=== PATIENT | female | born 1990 | race Caucasian/White ===

== ENCOUNTER 2022-09-30 21:52 | Emergency (ER) | payer OTHER, SELFPAY ==
--- NOTE | 2022-09-30 22:20 | ECG_ITS ---
The 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
[2022-09-30 22:31] VITALS: PULSE 71
[2022-09-30 23:35] VITALS: PULSE 62
--- NOTE | 2022-09-30 23:56 | ED_ITS ---
HPI - General Adult General Chief complaint: Neuro Symptoms/Deficit Stated complaint: ARM NUMBNESS/TINGLING Time Seen by Provider: 09/30/22 23:48 Source: patient Mode of arrival: ambulance Limitations: no limitations History of Present Illness HPI narrative: patient states she has been ill since july. Describes burning sensation of her skin. States she was prescribed prednisone and this appears to help all of her symptoms. States she will have episodes of hives. Also tingling of the left arm. States the tingling has now resolved and she has pain of the left shoulder. No chest pain. No fever. States she has an upcoming appointment with an devulcanizer head and her PCP is also scheduling her to see Rheumatology Related Data Home Medications Medication Instructions Recorded Confirmed B-12 Compliance 10/01/22 dicyclomine 10 mg capsule 10 mg PO QID 10/01/22 10/01/22 ferrous sulfate 325 mg (65 mg 325 mg PO DAILY 10/01/22 10/01/22 iron) tablet (FeroSul) omeprazole 40 mg capsule,delayed 40 mg PO DAILY 10/01/22 10/01/22 release Allergies Allergy/AdvReac Type Severity Reaction Status Date / Time cephalexin [From Keflex] AdvReac Verified 10/01/22 00:09 ibuprofen [From Motrin] AdvReac Verified 10/01/22 00:09 Review of Systems ROS Status of ROS 10 or more systems reviewed and unremarkable except as noted in history and below PFSH PFS Social History Smoking status: Current some day smoker Exam Constitutional Vital Signs - 24 hr 09/30/22 23:35 10/01/22 02:30 10/01/22 00:11 Temperature 98.8 F Pulse Rate [Monitor] 62 65 65 Respiratory Rate 16 16 Blood Pressure [Right Arm] 118/69 137/87 H Pulse Oximetry 97 98 Oxygen Delivery Method Room Air Room Air [facility] Common normals: normocephalic and head/scalp atraumatic Eye Common normals: PERRL, EOMs intact bilaterally and conjunctivae normal Neck & C-Spine Common normals: full ROM and no lymphadenopathy Chest Common normals: inspection of chest normal Respiratory Common normals: normal respiratory effort, no use of accessory muscles and clear to auscultation bilaterally Cardio Common normals: no JVD, regular rhythm, S1 normal heart sound and S2 normal heart sound GI Common normals: Normal to inspection, nondistended, normoactive bowel sounds present and soft to palpation Extremity Common normals: normal to inspection, full ROM and no joint enlargement Neuro Common normals: oriented x3, CN's II-XII intact bilaterally, moves all extremities, no focal motor deficits and no sensory deficits noted Psych Common normals: mental status grossly normal Course Vital Signs Vital signs: Vital Signs Pulse Rate 62 09/30/22 23:35 Temperature 98.8 F 10/01/22 00:11 Pulse Rate 65 10/01/22 02:30 Respiratory Rate 16 10/01/22 02:30 Blood Pressure 118/69 10/01/22 02:30 Pulse Oximetry 97 10/01/22 02:30 Oxygen Delivery Method Room Air 10/01/22 02:30 Medical Decision Making Medical Records Medical records narrative: patient presents with atypical symptoms of burning of her skin and tingling Left arm followed by pain of the left arm. serial troponin neg. EKG with nonspecific changes of T waves. No significant ST depression. NSR. Patient advised to follow up with her family doctor tomorrow . No findings tonight to explain her symptoms Lab Data Labs: Lab Results 10/01/22 10/01/22 Range/Units 00:35 02:17 WBC 8.1 (4.0-11.0) 10^3/uL RBC 4.63 (4.20-5.40) 10^6/uL Hgb 14.2 (12.0-16.0) g/dL Hct 40.7 (36.0-48.0) % MCV 87.9 (81.0-99.0) fL MCH 30.7 (26.7-34.0) pg MCHC 34.9 (29.9-35.2) g/dL RDW 11.9 (11.0-15.0) % Plt Count 277 (150-450) 10^3/uL MPV 8.9 L (9.5-13.5) fL Neut % (Auto) 79.2 H (43.0-75.0) % Lymph % (Auto) 12.4 L (20.5-60.0) % [place] % (Auto) 7.5 (1.7-12.0) % Eos % (Auto) 0.2 L (0.9-7.0) % Baso % (Auto) 0.2 (0.2-2.0) % Neut # (Auto) 6.4 (1.4-6.5) 10^3/uL Lymph # (Auto) 1.0 L (1.2-3.8) 10^3/uL [place] # (Auto) 0.6 (0.3-0.8) 10^3/uL Eos # (Auto) 0.0 (0.0-0.7) 10^3/uL Baso # (Auto) 0.0 (0.0-0.1) 10^3/uL ESR 22 H (<=20) mm/hr Sodium 136 (136-145) mmol/L Potassium 3.9 (3.5-5.1) mmol/L Chloride 103 (98-107) mmol/L Carbon Dioxide 24.7 (21.0-32.0) mmol/L Anion Gap 12.2 BUN 10.0 (7.0-18.0) mg/dL Creatinine 0.65 (0.55-1.02) mg/dL Est GFR ( Amer) >60 (>=60) Est GFR (Non-Af Amer) >60 (>=60) BUN/Creatinine Ratio 15.4 Glucose 88 (74-106) mg/dL Calcium 8.0 L (8.5-10.1) mg/dL Troponin I High Sens 5.6 7.4 (4.0-51.3) pg/mL C-Reactive Protein 1.0 (<=1.0) mg/dL NT-Pro-B Natriuret Pep 71.0 (<=450.0) pg/mL Discharge Plan Discharge Chief Complaint: Neuro Symptoms/Deficit Clinical Impression: Arthralgia of left upper arm Prescriptions / Home Meds: No Action dicyclomine 10 mg capsule 10 mg PO QID ferrous sulfate [FeroSul] 325 mg (65 mg iron) tablet 325 mg PO DAILY B-12 Compliance 1,000 mcg tablet omeprazole 40 mg capsule,delayed release(DR/EC) 40 mg PO DAILY Instructions: Arthralgia (ED), Shoulder Pain (ED) Stand Alone Forms: Portal Instructions Referrals: Physician,Non-Staff, MD [Primary Care Provider] - 1 week Follow Up Appointments: follow up with your family doctor tomorrow
[2022-10-01 00:11] VITALS: BP 137/87; PULSE 65; RESP 16; TEMP 37.1; O2SAT 98; BMI 44.2
--- NOTE | 2022-10-01 00:20 | XR_ITS ---
The [address] [address] Patient Name: BLANCA RUDOLPH MRN: [id number] date: 1990 Sex: F Assigned Patient Location: ER Current Patient Location: ER Accession/Order Number: [id number] Exam Date: 10/01/2022 00:25 Report Date: 10/01/2022 01:49 At the request of: RANGEL EDWARDS Procedure: XR chest 1V EXAMINATION:XR chest 1V INDICATION:chest pain COMPARISON:06/30/2012 TECHNIQUE:A single frontal view of the chest is submitted. FINDINGS: Significant under inflation of the lungs is present contributing to vascular crowding and bibasilar atelectasis. No acute infiltrates are present within the chest. The cardiac silhouette is not enlarged. The pulmonary vascularity is within normal limits. There is no costophrenic angle blunting. IMPRESSION: Hypoventilatory changes in the chest contributing to atelectasis and vascular crowding. Electronically authenticated by: CAYDEN ADAMES Date: 10/01/2022 01:49
[2022-10-01 00:56] LABS: Basophils Percent Auto 0.2 % (0.2-2.0); Eosinophils Percent Auto 0.2 % (0.9-7.0); Hematocrit 40.7 % (36.0-48.0); Hemoglobin 14.2 g/dL (12.0-16.0); Immature Granulocytes Abs Auto 0.04 10^3/uL (0.00-0.03); Immature Granulocytes Pct Auto 0.5 % (0.0-0.5); Lymphocytes Percent Auto 12.4 % (20.5-60.0); Mean Corpuscular HGB Conc 34.9 g/dL (29.9-35.2); Mean Corpuscular Hemoglobin 30.7 pg (26.7-34.0); Mean Corpuscular Volume 87.9 fL (81.0-99.0); Mean Platelet Volume 8.9 fL (9.5-13.5); Monocytes Absolute Auto 0.6 10^3/uL (0.3-0.8); Monocytes Percent Auto 7.5 % (1.7-12.0); Neutrophils Absolute Auto 6.4 10^3/uL (1.4-6.5); Neutrophils Percent Auto 79.2 % (43.0-75.0); Platelet Count 277 10^3/uL (150-450); Red Blood Count 4.63 10^6/uL (4.20-5.40); Red Cell Distribution Width 11.9 % (11.0-15.0); White Blood Count 8.1 10^3/uL (4.0-11.0)
[2022-10-01 01:08] LABS: Erythrocyte Sedimentation Rate 22 mm/hr (<=20)
[2022-10-01 01:20] LABS: Anion Gap 12.2; BUN Creatinine Ratio 15.4; Carbon Dioxide 24.7 mmol/L (21.0-32.0); Chloride 103 mmol/L (98-107); Estimated GFR (African America >60 (>=60); Estimated GFR (Non-African Ame >60 (>=60); Glucose 88 mg/dL (74-106); Potassium 3.9 mmol/L (3.5-5.1); Sodium 136 mmol/L (136-145); Troponin I High Sensitivity 5.6 pg/mL (4.0-51.3)
[2022-10-01 02:30] VITALS: BP 118/69; PULSE 65; RESP 16; O2SAT 97
[2022-10-01 02:37] LABS: Troponin I High Sensitivity 7.4 pg/mL (4.0-51.3)
[2022-10-01 04:05] VITALS: BP 147/104; PULSE 69; RESP 20; O2SAT 98
== END 2022-10-01 04:05 | disposition home or self-care (01) ==
LOC: ER 22:01
PROVIDERS: Emergency Provider Internal Medicine
DX: M79.622 Pain in left upper arm (principal)
CPT/HCPCS: 36415; 71045; 80048; 83880; 84484; 85025; 85652; 86140; 93005; 99285

== ENCOUNTER 2022-12-13 14:24 | Emergency (ER) | payer OTHER, SELFPAY ==
[2022-12-13 14:35] VITALS: BP 128/86; PULSE 63; RESP 18; TEMP 37.2; O2SAT 98; BMI 46.1
--- NOTE | 2022-12-13 14:46 | ED.UPPEXIN1 ---
HPI - Extremity Injury (Upper) General Chief Complaint: Extremity Injury, Upper Stated Complaint: CRAMPING BOTH HANDS Time Seen by Provider: 12/13/22 14:41 Source: patient Mode of arrival: walk-in Limitations: no limitations History of Present Illness HPI narrative: Patient presents to emergency department complaining of cramping and shaking to bilateral hands. Patient states she's had this episode where her hands just cramp and has pain in them for over 5 weeks. The patient was recently hospitalized at [facility] and diagnosed with lupus. Patient is taking prednisone for 30 days. She states while she was in the hospital she had the symptoms and they ordered an EMG as an outpatient. Patient states she has not seen a neurologist. Patient is here concerned that the EMG test is going to be in 4 weeks and she should've had it done while she was inpatient. She denies any trauma. She denies any fever, chills. She states they feel like they will slightly swollen. She also states she has fibromyalgia. She states the hands feel better when she is wearing gloves. Patient is wearing gloves over her rings which are not tight in no evidence of swelling is noted. She denies any weakness to the hands. She denies any neck pain. She states she is here because his symptoms feels like they're getting worse. Patient is known to have low magnesium and low calcium. Related Data Home Medications Medication Instructions Recorded Confirmed B-12 Compliance 10/01/22 dicyclomine 10 mg capsule 10 mg PO QID 10/01/22 10/01/22 ferrous sulfate 325 mg (65 mg 325 mg PO DAILY 10/01/22 12/13/22 iron) tablet (FeroSul) omeprazole 40 mg capsule,delayed 40 mg PO DAILY 10/01/22 12/13/22 release acetaminophen 500 mg tablet 500 mg PO Q6H PRN pain 12/13/22 12/13/22 allopurinol 100 mg tablet 100 mg PO DAILY 12/13/22 12/13/22 amitriptyline 10 mg tablet 10 mg PO .nightly 12/13/22 12/13/22 atovaquone 750 mg/5 mL oral 1,500 mg PO DAILY 12/13/22 12/13/22 suspension bumetanide 2 mg tablet 2 mg PO Q12H 12/13/22 12/13/22 cetirizine 10 mg tablet 10 mg PO DAILY 12/13/22 12/13/22 cholecalciferol (vitamin D3) 1,250 50,000 unit PO .weekly 12/13/22 12/13/22 mcg (50,000 unit) capsule magnesium oxide 400 mg (241.3 mg 400 mg PO .12HR 12/13/22 12/13/22 magnesium) tablet mycophenolate mofetil 250 mg 1,500 mg PO Q12H 12/13/22 12/13/22 capsule nifedipine 30 mg tablet,extended 30 mg PO DAILY 12/13/22 12/13/22 release 24 hr prednisone 20 mg tablet 60 mg PO DAILY 12/13/22 12/13/22 rivaroxaban 20 mg tablet (Xarelto) 20 mg PO DAILY 12/13/22 12/13/22 sevelamer carbonate 800 mg tablet 1,600 mg PO Q12H 12/13/22 12/13/22 Allergies Allergy/AdvReac Type Severity Reaction Status Date / Time cephalexin [From Keflex] AdvReac Verified 10/01/22 00:09 ibuprofen [From Motrin] AdvReac Verified 10/01/22 00:09 Review of Systems ROS Status of ROS 10 or more systems reviewed and unremarkable except as noted in history and below [facility] Social History Smoking status: Current every day smoker Exam Narrative Exam Narrative: Nurses notes and vital signs reviewed and patient is not hypoxic. General: Nontoxic, Well-appearing and in no apparent distress. Skin: Warm, dry, no pallor noted. No Rash Head: Normocephalic, atraumatic. Neck: Supple, non-tender. Eye: Pupils are equal, round and EOMI. No scleral icterus. Ears, Nose, Mouth, and Throat: TM clear, no posterior oropharynx erythema or nasal mucosal hypertrophy, uvula is mid-line Oral mucosa is moist Cardiovascular: Regular Rate and Rhythm without murmur, gallop or rub. Respiratory: No accessory muscle use or respiratory distress. Lungs are clear to auscultation, no wheezing, rales or rhonchi Chest Wall: no tenderness Back: No midline thoracic or lumbar vertebral tenderness. No CVA tenderness Musculoskeletal: Patient is wearing winter gloves with the fingertips cut off. Parents looked normal to inspection. There is no edema, no erythema, no signs of trauma, infection. There is no cyanosis. Radial pulses +2 bilaterally. Capillary refill is brisk. Normal sensation to the thumb, middle finger and pinky bilaterally. normal ROM, no calf or popliteal tenderness, no lower extremity edema/swelling GI: Abdomen is soft, non-distended. Normal bowel sounds. No masses appreciated. No tenderness to palpation. No rebound, guarding, or rigidity noted. Neurological: A&O x4. No cranial nerve dysfunction observed. No truncal ataxia. Moves all extremities. Subtle tremor to the left hand on examination of the hand. Tremor resolves while relatives take her gloves off. Psychiatric: Cooperative and interactive. flat Constitutional Vital Signs, click to edit/add: Last Vital Signs Temp 98.9 F 12/13/22 14:35 Pulse 59 L 12/13/22 17:51 Resp 18 12/13/22 17:51 BP 118/72 12/13/22 17:51 Pulse Ox 100 12/13/22 17:51 O2 Del Method Room Air 12/13/22 15:59 Course Vital Signs Vital signs: Vital Signs Temperature 98.9 F 12/13/22 14:35 Pulse Rate 63 12/13/22 14:35 Respiratory Rate 18 12/13/22 14:35 Blood Pressure 128/86 12/13/22 14:35 Pulse Oximetry 98 12/13/22 14:35 Oxygen Delivery Method Room Air 12/13/22 14:35 Temperature 98.9 F 12/13/22 14:35 Pulse Rate 59 L 12/13/22 17:51 Respiratory Rate 18 12/13/22 17:51 Blood Pressure 118/72 12/13/22 17:51 Pulse Oximetry 100 12/13/22 17:51 Oxygen Delivery Method Room Air 12/13/22 15:59 MDM - Extremity Injury (Upper) MDM Narrative Medical decision making narrative: Discussed with patient I am unable to get an EMG in the emergency department. However, we will check electrolytes to make sure she is well-hydrated and replace magnesium and calcium.Patient was given 2 g of magnesium, and 2 g of calcium gluconate. She states her symptoms improved dramatically. She was also given 1 L of normal saline. The patient will follow-up with her primary care doctor tomorrow. We discussed the need to have them check vitamin D level, and discuss parathyroid testing if needed. Patient has an injection of additional calcium tomorrow scheduled as an outpatient. Patient is advised to follow-up with her primary care doctor, and specialists. At this time the patient is without objective evidence of an acute process requiring hospitalization or inpatient management. The patient has remained hemodynamically stable. No additional indication for emergent studies at this time. I answered all questions. Discussed discharge instructions including standard anticipatory guidance and what should prompt a return to the emergency department, including if they get worse are not getting better or develops any new or concerning symptoms. I've given them specific time frame in which to follow-up, and who to follow-up with. The patient demonstrates understanding. Patient is nontoxic and stable for discharge with outpatient follow-up. This note was created with the assistance of a speech recognition program. Although the intention is to generate documents that actually reflects the content of the visit, no guarantees can be provided that every mistake has been identified and corrected by editing. Medical Records Attestation: I reviewed the patient's medical records. Medical records narrative: Discharge summary From [facility] that the patient brought in reviewed. Lab Data Attestation: I reviewed the patient's lab results. Labs: Lab Results 12/13/22 Range/Units 15:07 WBC 9.6 (4.0-11.0) 10^3/uL RBC 3.66 L (4.20-5.40) 10^6/uL Hgb 11.1 L (12.0-16.0) g/dL Hct 31.5 L (36.0-48.0) % MCV 86.1 (81.0-99.0) fL MCH 30.3 (26.7-34.0) pg MCHC 35.2 (29.9-35.2) g/dL RDW 12.6 (11.0-15.0) % Plt Count 255 (150-450) 10^3/uL MPV 8.7 L (9.5-13.5) fL Neut % (Auto) 94.4 H (43.0-75.0) % Lymph % (Auto) 4.2 L (20.5-60.0) % [place] % (Auto) 0.9 L (1.7-12.0) % Eos % (Auto) 0.0 L (0.9-7.0) % Baso % (Auto) 0.0 L (0.2-2.0) % Neut # (Auto) 9.1 H (1.4-6.5) 10^3/uL Lymph # (Auto) 0.4 L (1.2-3.8) 10^3/uL [place] # (Auto) 0.1 L (0.3-0.8) 10^3/uL Eos # (Auto) 0.0 (0.0-0.7) 10^3/uL Baso # (Auto) 0.0 (0.0-0.1) 10^3/uL Abs Immat Gran (auto) 0.05 H (0.00-0.03) 10^3/uL Imm/Tot Granulo (auto) 0.5 (0.0-0.5) % Sodium 138 (136-145) mmol/L Potassium 4.5 (3.5-5.1) mmol/L Chloride 101 (98-107) mmol/L Carbon Dioxide 34.0 H (21.0-32.0) mmol/L Anion Gap 7.5 BUN 38.0 H (7.0-18.0) mg/dL Creatinine 1.61 H (0.55-1.02) mg/dL Est GFR ( Amer) 45 L (>=60) Est GFR (Non-Af Amer) 37 L (>=60) BUN/Creatinine Ratio 23.6 Glucose 147 H (74-106) mg/dL Calcium 7.0 L (8.5-10.1) mg/dL Magnesium 1.5 L (1.8-2.4) mg/dL Total Bilirubin 0.2 (0.2-1.0) mg/dL AST 11 L (15-37) U/L ALT 22 (14-59) U/L Alkaline Phosphatase 41 L (46-116) U/L Total Protein 4.8 L (6.4-8.2) g/dL Albumin 1.5 L (3.4-5.0) g/dL Globulin 3.3 g/dL Albumin/Globulin Ratio 0.5 Discharge Plan Discharge Chief Complaint: Extremity Injury, Upper Clinical Impression: Spasms of the hands or feet, Hypomagnesemia, Hypocalcemia Patient Disposition: Home, Self-Care Time of Disposition Decision: 17:00 Condition: Good Mode of Transportation: Private Vehicle Prescriptions / Home Meds: No Action dicyclomine 10 mg capsule 10 mg PO QID ferrous sulfate [FeroSul] 325 mg (65 mg iron) tablet 325 mg PO DAILY B-12 Compliance 1,000 mcg tablet omeprazole 40 mg capsule,delayed release(DR/EC) 40 mg PO DAILY acetaminophen 500 mg tablet 500 mg PO Q6H PRN (Reason: pain) amitriptyline 10 mg tablet 10 mg PO .nightly allopurinol 100 mg tablet 100 mg PO DAILY atovaquone 750 mg/5 mL suspension 1,500 mg PO DAILY bumetanide 2 mg tablet 2 mg PO Q12H cetirizine 10 mg tablet 10 mg PO DAILY cholecalciferol (vitamin D3) 1,250 mcg (50,000 unit) capsule 50,000 unit PO .weekly magnesium oxide 400 mg (241.3 mg magnesium) tablet 400 mg PO .12HR mycophenolate mofetil 250 mg capsule 1,500 mg PO Q12H nifedipine 30 mg tablet extended release 24hr 30 mg PO DAILY prednisone 20 mg tablet 60 mg PO DAILY sevelamer carbonate 800 mg tablet 1,600 mg PO Q12H Xarelto 20 mg tablet 20 mg PO DAILY Rx Instructions: must administer with evening meal Instructions: Hypocalcemia (ED), Hypomagnesemia (ED), Muscle Spasm (ED) Additional Instructions: Follow up with her primary care doctor to discuss vitamin D and low levels of calcium and magnesium. X-ray drinking plenty of fluids. Get your calcium injection tomorrow as scheduled. Return to the emergency department and consequences as discussed. Stand Alone Forms: Portal Instructions
[2022-12-13 15:17] LABS: Hematocrit 31.5 % (36.0-48.0); Hemoglobin 11.1 g/dL (12.0-16.0); Immature Granulocytes Abs Auto 0.05 10^3/uL (0.00-0.03); Immature Granulocytes Pct Auto 0.5 % (0.0-0.5); Lymphocytes Absolute Auto 0.4 10^3/uL (1.2-3.8); Lymphocytes Percent Auto 4.2 % (20.5-60.0); Mean Corpuscular HGB Conc 35.2 g/dL (29.9-35.2); Mean Corpuscular Hemoglobin 30.3 pg (26.7-34.0); Mean Corpuscular Volume 86.1 fL (81.0-99.0); Mean Platelet Volume 8.7 fL (9.5-13.5); Monocytes Absolute Auto 0.1 10^3/uL (0.3-0.8); Monocytes Percent Auto 0.9 % (1.7-12.0); Neutrophils Absolute Auto 9.1 10^3/uL (1.4-6.5); Neutrophils Percent Auto 94.4 % (43.0-75.0); Platelet Count 255 10^3/uL (150-450); Red Blood Count 3.66 10^6/uL (4.20-5.40); Red Cell Distribution Width 12.6 % (11.0-15.0); White Blood Count 9.6 10^3/uL (4.0-11.0)
[2022-12-13 15:32] LABS: Alanine Aminotransferase 22 U/L (14-59); Albumin Globulin Ratio 0.5; Albumin Level 1.5 g/dL (3.4-5.0); Alkaline Phosphatase 41 U/L (46-116); Anion Gap 7.5; Aspartate Amino Transferase 11 U/L (15-37); BUN Creatinine Ratio 23.6; Bilirubin Total 0.2 mg/dL (0.2-1.0); Chloride 101 mmol/L (98-107); Estimated GFR (African America 45 (>=60); Estimated GFR (Non-African Ame 37 (>=60); Globulin 3.3 g/dL; Glucose 147 mg/dL (74-106); Magnesium 1.5 mg/dL (1.8-2.4); Potassium 4.5 mmol/L (3.5-5.1); Sodium 138 mmol/L (136-145); Total Protein 4.8 g/dL (6.4-8.2)
[2022-12-13] MEDS: 0.9 % SODIUM CHLORIDE 1,000 ML 1000 ML IV (15:56)
[2022-12-13] MEDS: MAGNESIUM SULFATE IN WATER 50 ML IV (15:56)
[2022-12-13 15:59] VITALS: O2SAT 99
[2022-12-13 16:01] VITALS: BP 120/78; PULSE 80; RESP 18; O2SAT 99
[2022-12-13] MEDS: CALCIUM GLUC IN NACL, ISO-OSM 1 GM/50 ML PLAST..BAG IV ×2 (16:25→16:49)
[2022-12-13 16:55] VITALS: BP 110/70; PULSE 63; RESP 16; O2SAT 99
[2022-12-13 17:51] VITALS: BP 118/72; PULSE 59; RESP 18; O2SAT 100
== END 2022-12-13 18:21 | disposition home or self-care (01) ==
PROVIDERS: Emergency Provider Emergency Medicine
DX: E83.42 Hypomagnesemia (principal); E83.51 Hypocalcemia; R25.2 Cramp and spasm; M79.7 Fibromyalgia; Z79.899 Other long term (current) drug therapy; F17.210 Nicotine dependence, cigarettes, uncomplicated
CPT/HCPCS: 36415; 80053; 83735; 85025; 96365; 96366; 96368; 99284

== ENCOUNTER 2022-12-14 15:18 | Emergency (ER) | payer OTHER, SELFPAY ==
[2022-12-14] VITALS (21 sets, daily range): BP systolic 123–152; BP diastolic 69–103; PULSE 58–90; RESP 1–23; TEMP 37.1; O2SAT 98–99; BMI 46.1
--- NOTE | 2022-12-14 15:41 | ECG_ITS ---
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
--- NOTE | 2022-12-14 15:54 | ED_ITS ---
HPI - General Adult General Chief complaint: Neuro Symptoms/Deficit Stated complaint: Syncope Time Seen by Provider: 12/14/22 15:21 Source: patient Mode of arrival: Wheelchair Limitations: no limitations History of Present Illness HPI narrative: Patient said that she passed out earlier today. She presents with tremors and joint pains. She was diagnosed with fibromyalgia 2 months ago and with Lupus 2 weeks ago - both done while at [facility]. She has an out- patient EMG scheduled in 4-5 weeks. She asked about getting that at [place] [facility] when she was here yesterday. She was found to have low magnesium and low calcium yesterday and given those IV during her visit. She takes vitamin D, magnesium and calcium daily. She had been taking 60mg prednisone - prescribed while in [facility] 2 weeks ago - and is supposed to stay on that for another 2 weeks but she stopped them about 24 hours ago because she thought that the steroid might be causing her symptoms. She told me that she has left sided headache and that is chronic for her. Related Data Home Medications Medication Instructions Recorded Confirmed B-12 Compliance 10/01/22 dicyclomine 10 mg capsule 10 mg PO QID 10/01/22 10/01/22 ferrous sulfate 325 mg (65 mg 325 mg PO DAILY 10/01/22 12/13/22 iron) tablet (FeroSul) omeprazole 40 mg capsule,delayed 40 mg PO DAILY 10/01/22 12/13/22 release acetaminophen 500 mg tablet 500 mg PO Q6H PRN pain 12/13/22 12/13/22 allopurinol 100 mg tablet 100 mg PO DAILY 12/13/22 12/13/22 amitriptyline 10 mg tablet 10 mg PO .nightly 12/13/22 12/13/22 atovaquone 750 mg/5 mL oral 1,500 mg PO DAILY 12/13/22 12/13/22 suspension bumetanide 2 mg tablet 2 mg PO Q12H 12/13/22 12/13/22 cetirizine 10 mg tablet 10 mg PO DAILY 12/13/22 12/13/22 cholecalciferol (vitamin D3) 1,250 50,000 unit PO .weekly 12/13/22 12/13/22 mcg (50,000 unit) capsule magnesium oxide 400 mg (241.3 mg 400 mg PO .12HR 12/13/22 12/13/22 magnesium) tablet mycophenolate mofetil 250 mg 1,500 mg PO Q12H 12/13/22 12/13/22 capsule nifedipine 30 mg tablet,extended 30 mg PO DAILY 12/13/22 12/13/22 release 24 hr prednisone 20 mg tablet 60 mg PO DAILY 12/13/22 12/13/22 rivaroxaban 20 mg tablet (Xarelto) 20 mg PO DAILY 12/13/22 12/13/22 sevelamer carbonate 800 mg tablet 1,600 mg PO Q12H 12/13/22 12/13/22 Allergies Allergy/AdvReac Type Severity Reaction Status Date / Time cephalexin [From Keflex] AdvReac Verified 10/01/22 00:09 ibuprofen [From Motrin] AdvReac Verified 10/01/22 00:09 PFSH PFS Social History Smoking status: Current every day smoker Exam Narrative Exam Narrative: Nurses notes and vital signs reviewed and patient is not hypoxic. afebrile General: Well-appearing and in no apparent distress. Skin: Warm, dry, no pallor noted. No rash. Head: Normocephalic, atraumatic. Eye: Pupils are equal, round and EOMI. No scleral icterus. Ears, Nose, Mouth, and Throat: Oral mucosa is moist Cardiovascular: Regular Rate and Rhythm without murmur, gallop or rub. Respiratory: No accessory muscle use or respiratory distress. Lungs are clear to auscultation, no wheezing, rales or rhonchi Musculoskeletal: no upper extremity edema/swelling - she wears gloves because they decrease her fibromyalgia flare-ups GI: Abdomen is soft, non-distended. Normal bowel sounds. No tenderness to palpation. No rebound, guarding, or rigidity noted. Neurological: A&O x4. No cranial nerve dysfunction observed. No truncal ataxia. Moves all extremities. Sensation intact. Psychiatric: Cooperative and interactive. FLAT mood and affect. Constitutional Vital Signs, click to edit/add: Last Vital Signs Temp 98.8 F 12/14/22 15:26 Pulse 63 12/14/22 17:10 Resp 21 12/14/22 17:10 BP 152/103 H 12/14/22 16:08 Pulse Ox 99 12/14/22 16:00 O2 Del Method Room Air 12/14/22 15:26 Course Vital Signs Vital signs: Vital Signs Temperature 98.8 F 12/14/22 15:26 Pulse Rate 66 12/14/22 15:26 Respiratory Rate 18 12/14/22 15:26 Blood Pressure 133/90 12/14/22 15:26 Pulse Oximetry 98 12/14/22 15:26 Oxygen Delivery Method Room Air 12/14/22 15:26 Temperature 98.8 F 12/14/22 15:26 Pulse Rate 63 12/14/22 17:10 Respiratory Rate 21 12/14/22 17:10 Blood Pressure 152/103 H 12/14/22 16:08 Pulse Oximetry 99 12/14/22 16:00 Oxygen Delivery Method Room Air 12/14/22 15:26 Medical Decision Making MDM Narrative Medical decision making narrative: Patient was placed on cnc machine setter and EKG obtained. Blood drawn and sent for evaluation. orthostatic vital signs obtained and the patient's HR increased from 65bpm to 90bpm on standing. She was ordered to receive NS IVF bolus. She was sent for CT scanning of the brain due to the syncopal episode. Head CT did not show any worrisome process per radiologist. Her magnesium and calcium were once again low. The patient was given IV Calcium and IV magnesium. She also has elevated BUn and Cr when compared to normal values in September 2022. She was started on Bumex 2 weeks ago after the Lupus diagnosis to treat Lupus- associated water retention , she told me. I am concerned that the Bumex is contributing to her abnormal kidney function and possibly electrolyte changes. She said that she saw a accounts manager in [place] and I encouraged her to call their office when they open tomorrow to discuss discontinuing the Bumex. Patient discharged home with recommendation to get back on the prednisone, take the calcium and magnesium prescribed, eat meals and drink fluids appropriately. Lab Data Lab results reviewed: Yes I reviewed the patient's lab results Labs: Lab Results 12/14/22 Range/Units 15:50 WBC 8.3 (4.0-11.0) 10^3/uL RBC 3.76 L (4.20-5.40) 10^6/uL Hgb 11.3 L (12.0-16.0) g/dL Hct 32.9 L (36.0-48.0) % MCV 87.5 (81.0-99.0) fL MCH 30.1 (26.7-34.0) pg MCHC 34.3 (29.9-35.2) g/dL RDW 12.9 (11.0-15.0) % Plt Count 244 (150-450) 10^3/uL MPV 9.0 L (9.5-13.5) fL Neut % (Auto) 69.4 (43.0-75.0) % Lymph % (Auto) 23.8 (20.5-60.0) % [place] % (Auto) 5.5 (1.7-12.0) % Eos % (Auto) 0.5 L (0.9-7.0) % Baso % (Auto) 0.2 (0.2-2.0) % Neut # (Auto) 5.8 (1.4-6.5) 10^3/uL Lymph # (Auto) 2.0 (1.2-3.8) 10^3/uL [place] # (Auto) 0.5 (0.3-0.8) 10^3/uL Eos # (Auto) 0.0 (0.0-0.7) 10^3/uL Baso # (Auto) 0.0 (0.0-0.1) 10^3/uL Abs Immat Gran (auto) 0.05 H (0.00-0.03) 10^3/uL Imm/Tot Granulo (auto) 0.6 H (0.0-0.5) % Sodium 139 (136-145) mmol/L Potassium 3.3 L (3.5-5.1) mmol/L Chloride 102 (98-107) mmol/L Carbon Dioxide 34.7 H (21.0-32.0) mmol/L Anion Gap 5.6 BUN 34.0 H (7.0-18.0) mg/dL Creatinine 1.49 H (0.55-1.02) mg/dL Est GFR ( Amer) 49 L (>=60) Est GFR (Non-Af Amer) 41 L (>=60) BUN/Creatinine Ratio 22.8 Glucose 102 (74-106) mg/dL Calcium 7.2 L (8.5-10.1) mg/dL Magnesium 1.7 L (1.8-2.4) mg/dL Troponin I High Sens 15.5 (4.0-51.3) pg/mL Imaging Data CT scan - head: Radiologist's impression: Patient Name: BLANCA RUDOLPH MRN: [id number] date: 1990 Sex: F Assigned Patient Location: ER Current Patient Location: ER Accession/Order Number: [id number] Exam Date: 12/14/2022 16:33 Report Date: 12/14/2022 16:55 At the request of: LUIS ANTONIO TAVERAS Procedure: CT head/brain wo con EXAM: CT head/brain wo con CLINICAL INDICATION: syncope COMPARISON: None TECHNIQUE: Axial CT images of the brain were obtained without contrast. Coronal and sagittal reformats were obtained. Dose reduction techniques were achieved by using automated exposure control and/or adjustment of mA and/or kV according to patient size and/or use of iterative reconstruction technique. FINDINGS: No intracranial hemorrhage, extra-axial fluid collection, hydrocephalus, midline shift, or acute infarction. No other mass effect. Patent basal cisterns. No calvarial fracture. Normal soft tissues. Paranasal sinuses and mastoid air cells are well-aerated. IMPRESSION: No acute intracranial process. Electronically authenticated by: ANGEL SEBASTIAN Date: 12/14/2022 16:55 ECG Data Attestation: I personally reviewed and interpreted this ECG as follows: Interpretation: EKG interpretation: Emergency Department physician interpretation. Normal sinus rhythm at 64bpm. Normal axis, normal intervals and non-specific ST &T changes. No ST segment elevation or depression. Discharge Plan Discharge Chief Complaint: Neuro Symptoms/Deficit Clinical Impression: Lupus, Hypomagnesemia, Hypocalcemia Patient Disposition: Home, Self-Care Time of Disposition Decision: 17:48 Prescriptions / Home Meds: No Action dicyclomine 10 mg capsule 10 mg PO QID ferrous sulfate [FeroSul] 325 mg (65 mg iron) tablet 325 mg PO DAILY B-12 Compliance 1,000 mcg tablet omeprazole 40 mg capsule,delayed release(DR/EC) 40 mg PO DAILY acetaminophen 500 mg tablet 500 mg PO Q6H PRN (Reason: pain) amitriptyline 10 mg tablet 10 mg PO .nightly allopurinol 100 mg tablet 100 mg PO DAILY atovaquone 750 mg/5 mL suspension 1,500 mg PO DAILY bumetanide 2 mg tablet 2 mg PO Q12H cetirizine 10 mg tablet 10 mg PO DAILY cholecalciferol (vitamin D3) 1,250 mcg (50,000 unit) capsule 50,000 unit PO .weekly magnesium oxide 400 mg (241.3 mg magnesium) tablet 400 mg PO .12HR mycophenolate mofetil 250 mg capsule 1,500 mg PO Q12H nifedipine 30 mg tablet extended release 24hr 30 mg PO DAILY prednisone 20 mg tablet 60 mg PO DAILY sevelamer carbonate 800 mg tablet 1,600 mg PO Q12H Xarelto 20 mg tablet 20 mg PO DAILY Rx Instructions: must administer with evening meal Instructions: Lupus Erythematosus (DC), Hypocalcemia (ED), Hypomagnesemia (ED) Stand Alone Forms: Portal Instructions Referrals: Physician,Non-Staff, MD [Primary Care Provider] - 1 week
[2022-12-14] MEDS: 0.9 % SODIUM CHLORIDE 1,000 ML 999 ML IV (16:02)
--- NOTE | 2022-12-14 16:03 | CT_ITS ---
[address] [address] Patient Name: BLANCA RUDOLPH MRN: [id number] date: 1990 Sex: F Assigned Patient Location: ER Current Patient Location: ER Accession/Order Number: [id number] Exam Date: 12/14/2022 16:33 Report Date: 12/14/2022 16:55 At the request of: LUIS ANTONIO TAVERAS Procedure: CT head/brain wo con EXAM: CT head/brain wo con CLINICAL INDICATION: syncope COMPARISON: None TECHNIQUE: Axial CT images of the brain were obtained without contrast. Coronal and sagittal reformats were obtained. Dose reduction techniques were achieved by using automated exposure control and/or adjustment of mA and/or kV according to patient size and/or use of iterative reconstruction technique. FINDINGS: No intracranial hemorrhage, extra-axial fluid collection, hydrocephalus, midline shift, or acute infarction. No other mass effect. Patent basal cisterns. No calvarial fracture. Normal soft tissues. Paranasal sinuses and mastoid air cells are well-aerated. CT/CT head/brain wo con IMPRESSION: No acute intracranial process. Electronically authenticated by: ANGEL SEBASTIAN Date: 12/14/2022 16:55
[2022-12-14 16:35] LABS: Basophils Percent Auto 0.2 % (0.2-2.0); Eosinophils Percent Auto 0.5 % (0.9-7.0); Hematocrit 32.9 % (36.0-48.0); Hemoglobin 11.3 g/dL (12.0-16.0); Immature Granulocytes Abs Auto 0.05 10^3/uL (0.00-0.03); Immature Granulocytes Pct Auto 0.6 % (0.0-0.5); Lymphocytes Percent Auto 23.8 % (20.5-60.0); Mean Corpuscular HGB Conc 34.3 g/dL (29.9-35.2); Mean Corpuscular Hemoglobin 30.1 pg (26.7-34.0); Mean Corpuscular Volume 87.5 fL (81.0-99.0); Monocytes Absolute Auto 0.5 10^3/uL (0.3-0.8); Monocytes Percent Auto 5.5 % (1.7-12.0); Neutrophils Absolute Auto 5.8 10^3/uL (1.4-6.5); Neutrophils Percent Auto 69.4 % (43.0-75.0); Platelet Count 244 10^3/uL (150-450); Red Blood Count 3.76 10^6/uL (4.20-5.40); Red Cell Distribution Width 12.9 % (11.0-15.0); White Blood Count 8.3 10^3/uL (4.0-11.0)
[2022-12-14 16:55] LABS: Anion Gap 5.6; BUN Creatinine Ratio 22.8; Calcium 7.2 mg/dL (8.5-10.1); Carbon Dioxide 34.7 mmol/L (21.0-32.0); Chloride 102 mmol/L (98-107); Estimated GFR (African America 49 (>=60); Estimated GFR (Non-African Ame 41 (>=60); Glucose 102 mg/dL (74-106); Magnesium 1.7 mg/dL (1.8-2.4); Potassium 3.3 mmol/L (3.5-5.1); Sodium 139 mmol/L (136-145); Troponin I High Sensitivity 15.5 pg/mL (4.0-51.3)
[2022-12-14] MEDS: MAGNESIUM SULFATE IN WATER 50 ML IV (17:39)
[2022-12-14] MEDS: CALCIUM GLUC IN NACL, ISO-OSM 1 GM/50 ML PLAST..BAG IV (17:45)
== END 2022-12-14 18:58 | disposition home or self-care (01) ==
PROVIDERS: Emergency Provider Emergency Medicine
DX: E83.42 Hypomagnesemia (principal); E83.51 Hypocalcemia; M32.9 Systemic lupus erythematosus, unspecified; M79.7 Fibromyalgia; Z79.899 Other long term (current) drug therapy; F17.210 Nicotine dependence, cigarettes, uncomplicated
CPT/HCPCS: 36415; 70450; 80048; 83735; 84484; 85025; 93005; 96361; 96374; 96375; 99285

== ENCOUNTER 2023-04-18 21:07 | Outpatient (REF) | payer OTHER, SELFPAY ==
--- OUTSIDE RECORDS SUMMARY | 2023-04-19 10:14 | XMS_ITS | CCD ---
Author Name Unknown Address [address] [place] [address] Organization [facility] Care Team Providers Care Trolley Cleaner Name Role Phone BILLY ZELAYA Primary Care Physician UnavailMELONY Servin Consulting Unavailable BRANDY ALEXIS Primary Care Unavailable MELONY THURSTON Attending Unavailable MELONY THURSTON Admitting Unavailable AWAIS, DR HAGAN Consulting Unavailable BRANDY ALEXIS Primary Care Unavailable AWAIS, DR HAGAN Attending Unavailable AWAIS, DR HAGAN Admitting Unavailable Issa Guerrero Primary Care UnavailORIN Sheffield Attending Unavailable ORIN PACHECO Attending Unavailable ORIN PACHECO Attending Unavailable WILFRID BILLY Primary Care Unavailable Miki Mauricio Attending Unavailable Jazmin ZAMAN Referring Unavailable WILFRID, BILLY Primary Care Unavailable Miki Mauricio Attending Unavailable RUFINO GALLARDO Attending Unavailab BILLY Mora Referring Unavailable BILLY ZELAYA Primary Care Unavailable RUFINO GALLARDO Attending Unavailab BILLY Mora Primary Care Unavailable Miki Mauricio Admitting Unavailable BILLY ZELAYA Primary Care Unavailable Miki Mauricio Attending Unavailable Miki Mauricio Referring Unavailable BILLY ZELAYA Primary Care Unavailable Astrid, Katrin A Admitting Unavailable Astrid, Katrin A Attending Unavailable BILLY ZELAYA Primary Care Unavailable Miki Mauricio Attending Unavailable Miki Mauricio Referring Unavailable Miki Mauricio Admitting Unavailable BILLY ZELAYA Primary Care Unavailable RUFINO GALLARDO Attending Unavailab BILLY Mora Referring Unavailable WILFRID, BILLY Primary Care Unavailable WILFRID, BILLY Primary Care Unavailable Astrid, Katrin A Attending Unavailable Michael ZAMANer Referring Unavailable WILFRID, BILLY Primary Care Unavailable Miki Mauricio Attending Unavailable Allergies Allergy Classification Reported Allergen(s) Allergy Type Date of Onset Reaction(s) Facility (8 sources) Cephalexin; Translations: [cephalexin] Drug Allergy 05-03-19 Pain in lower limb (finding) [facility] [place] (4 sources) Ibuprofen; Translations: [ibuprofen] Drug Allergy 12-16-19 medication interference [facility] (2 sources) Sulfamethoxazole / Trimethoprim; Translations: [sulfamethoxazole-t rimethoprim] Drug Allergy Eruption of skin (disorder) [facility] Comment on above: ??? pt says she gets 'heat rash' often. however developed 'worse' rash than usual shortly after taking bactrim. has taken previously with NO reaction. (1 source) Sulfamethoxazole / Trimethoprim; Translations: [Bactrim] Drug Allergy [facility] (1 source) No Known Medication Allergies; Translations: [No Known Medication Allergies] Propensity to adverse reactions (disorder) [facility] Medications Current Medications Medication Drug Class(es) Dates Sig (Normalized) Sig (Original) acetaminophen 325 mg / HYDROcodone bitartrate 5 mg oral tablet (1 source) Opioid Agonist Start: 07-11-2022 End: 07-13-2022 [place] 325 mg-5 mg oral tablet 1 tab(s), Oral, q6hr as needed for pain, 10 tab(s), Refill(s) 0, [id number], 175.2, cm, 07/05/22 12:31:00 EST, Height/Length Dosing, 136, kg, 07/05/22 12:31:00 EST, Weight Dosing Start Date: 07/11/22 Stop Date: 07/13/22 Status: Ordered dicyclomine hydrochloride 10 mg oral capsule (8 sources) Anticholinergic Start: 02-16-2022 End: 02-11-2023 take 1 capsule by mouth four times daily Bentyl 10 mg Cap 10 mg = 1 cap(s), Oral, QID, X 30 day(s), # 120 cap(s), Refills(s) 11, [facility]: [id number], 172, cm, 02/16/22 12:26:00 EDT, Height/Length Dosing, 133, kg, 02/16/22 12:26:00 EDT, Weight Dosing Start Date: 02/16/22 Stop Date: 02/11/23 Status: Ordered etonogestrel 68 mg drug implant (9 sources) Progestin Start: 02-16-2022 Nexplanon 68 mg, SubCutaneous, in pts right arm, Refills(s) 0, control/menstrual regulation Start Date: 02/16/22 Status: Ordered Start: 02-16-2022 Nexplanon Refi lls(s) 0, control/menstrual regulation Start Date: 02/16/22 Status: Ordered Start: 02-16-2022 Nexplanon Refi lls(s) 0 Start Date: 02/16/22 Status: Ordered famotidine 20 mg oral tablet (6 sources) Histamine-2 Receptor Antagonist Start: 07-05-2022 take 1 tablet by mouth once daily as needed Pepcid 20 mg Tab 20 mg = 1 tab(s), Oral, Daily, PRN Control of stomach acid Start Date: 07/05/22 Status: Ordered FeroSul 325 mg oral tablet (9 sources) Start: 02-16-2022 take 1 tablet by mouth once daily FeroSul 325 mg oral tablet 325 mg = 1 tab(s), Oral, Daily, Refills(s) 0, Prophylaxis Start Date: 02/16/22 Status: Ordered Start: 02-16-2022 FeroSul 325 mg oral tablet Refills(s) 0, Prophylaxis Start Date: 02/16/22 Status: Ordered Start: 02-16-2022 FeroSul 325 mg oral tablet Refills(s) 0 Start Date: 02/16/22 Status: Ordered lisinopril 10 mg oral tablet (9 sources) Angiotensin Converting Enzyme Inhibitor Start: 02-16-2022 take 10 mg by mouth once daily lisinopril 10 mg, Oral, Daily, Refills(s) 0, High blood pressure Start Date: 02/16/22 Status: Ordered Start: 02-16-2022 lisinopril Ref ills(s) 0, High blood pressure Start Date: 02/16/22 Status: Ordered Start: 02-16-2022 lisinopril Ref ills(s) 0 Start Date: 02/16/22 Status: Ordered nitrofurantoin, macrocrystals 50 mg oral capsule (2 sources) Nitrofuran Antibacterial Start: 09-05-2022 nitrofurantoin macrocrystals 50 mg Cap See Instructions, 1 cap(s) Oral PRN after intercourse to prevent UTI, # 15 cap(s), Refills(s) 6, Pharmacy: [facility] #[id number], 172, cm, 09/05/22 9:24:00 EDT, Height/Length Dosing, 132, kg, 09/05/22 9:24:00 EDT, Weight Dosing Start Date: 09/05/22 Status: Ordered omeprazole 40 mg delayed release oral capsule (6 sources) Proton Pump Inhibitor Start: 08-10-2022 End: 02-06-2023 take 1 capsule by mouth once daily omeprazole 40 mg Cap-DR 40 mg = 1 cap(s), Oral, Daily, X 90 day(s), # 90 cap(s), Refills(s) 1, Pharmacy: [facility] #[id number], 175, cm, 08/10/22 12:49:00 EDT, Height/Length Dosing, 133.3, kg, 08/10/22 12:49:00 EDT, Weight Dosing Start Date: 08/10/22 Stop Date: 02/06/23 Status: Ordered Start: 03-10-2022 take 1 capsule by [facility] once daily omeprazole 40 mg Cap-DR 40 mg = 1 cap(s), Oral, Daily, # 30 cap(s), Refills(s) 2, Pharmacy: [facility] #[id number], 172, cm, 03/10/22 12:42:00 EST, Height/Length Dosing, 133, kg, 03/10/22 12:42:00 EST, Weight Dosing Start Date: 03/10/22 Status: Ordered rivaroxaban 20 mg oral tablet (9 sources) Factor Xa Inhibitor Start: 02-16-2022 take 20 mg by mouth once daily in the evening Xarelto 20 mg, Oral, qPM, Refills(s) 0, Blood Thinner Start Date: 02/16/22 Status: Ordered Start: 02-16-2022 Xarelto Refill s(s) 0, Blood Thinner Start Date: 02/16/22 Status: Ordered Start: 02-16-2022 Xarelto Refill s(s) 0 Start Date: 02/16/22 Status: Ordered Problems Active Problems Problem Classification Problem Date Documented Da te Episodic/Chronic Abdominal pain (14 sources) Epigastric pain; Translations: [Epigastric pain] Onset: 2 Episodic Anxiety disorders (10 sources) Anxiety disorder; Translations: [Anxiety disorder, unspecified] Onset: 2 Chronic Attention-deficit, conduct, and disruptive behavior disorders (9 sources) Adult attention deficit hyperactivity disorder 02-15-2022 Chronic Attention-deficit, conduct, and disruptive behavior disorders (9 sources) Attention deficit hyperactivity disorder, 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 Biliary tract disease (20 sources) Cholelithiasis without obstruction; Translations: [Calculus of gallbladder without cholecystitis without obstruction] Onset: 2 Episodic Deficiency and other anemia (6 sources) Anemia 07-05-2022 Episodic Diabetes mellitus without complication (9 sources) Type 2 diabetes mellitus 02-16-2022 Chronic Esophageal disorders (5 sources) Gastroesophageal reflux disease; Translations: [Gastroesophageal reflux disease without esophagitis] Onset: 3 08-10-2022 Chronic Essential hypertension (9 sources) Hypertensive disorder 02-15-2022 Chronic Gastritis and duodenitis (5 sources) Gastritis; Translations: [Gastritis, unspecified, without bleeding] Onset: 3 08-10-2022 Episodic Mood disorders (9 sources) Depressive disorder 02-16-2022 Chronic Nausea and vomiting (10 sources) Nausea; Translations: [Nausea] Onset: 2 Episodic Other gastrointestinal disorders (5 sources) Abdominal wind pain; Translations: [Gas pain] Onset: 3 08-10-2022 Episodic Other nervous system disorders (1 source) Other chronic pain; Translations: [OTHER CHRONIC PAIN] Onset: 2 Chronic Other nutritional; endocrine; and metabolic disorders (9 sources) Morbid obesity 02-16-2022 Chronic Other nutritional; endocrine; and metabolic disorders (6 sources) Body mass index 40+ - severely obese 06-26-2022 Chronic Other screening for suspected conditions (not mental disorders or infectious disease) (4 sources) Encounter for screening for malignant neoplasm of cervix; Translations: [ENC SCREENING MALIG NEOPLASM CERV] Onset: 2 Episodic Other upper respiratory disease (9 sources) Allergic rhinitis 02-16-2022 Chronic Pulmonary heart disease (6 sources) Pulmonary embolism 07-05-2022 Episodic Sexually transmitted infections (not HIV or hepatitis) (2 sources) Latent syphilis, unspecified as early or late; 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, unspecified as early or late] Onset: 3 Chronic Spondylosis; intervertebral disc disorders; other back problems (9 sources) Backache 02-16-2022 Episodic Unclassified (6 sources) Drug therapy finding 06-26-2022 Urinary tract infections (3 sources) Urinary tract infectious disease; Translations: [Urinary tract infection, site not specified] Onset: 3 Episodic Past or Other Problems Problem Classification Problem Date Documented Date Episodic/Chronic Immunizations and screening for infectious disease (5 sources) Encounter for screening for human papillomavirus (HPV); Translations: [Contact with and (suspected) exposure to human immunodeficiency virus [HIV]] Onset: 03-17-2022 Episodic Other aftercare (1 source) Other ocean transportation intermediary (current) drug therapy; Translations: [OTH PRISON CURRENT DRUG THERAPY] Onset: 12-14-2021 Episodic Unclassified (1 source) Exposure to 2019 novel coronavirus; Translations: [Contact with and (suspected) exposure to COVID19] Results Test Name Value Interpretation Reference Range Facil ity Lab Reportson 04-17-2023 Lab Reports [id number]. [id number] Normal [facility] 29on 04-06-2023 29 Addended by: NO OVALLE on: 04/10/2023 12:12 PM Modules accepted: Orders Normal [facility] CHLAMYDIA TRACHOMATIS AND NE ISSERIA GONORRHEA, TMAon 04-06-2023 CHLAMYDIA TRACHOMATIS DNA PROBE (PRESENCE) IN UNSP SPEC Negative Normal Negative [facility] Comment on above: Result Comment: No C hlamydia trachomatis rRNA Detected. The Aptima Combo 2 Assay is a FDA approved target amplification nucleic acid probe test that utilizes target capture for the in vitro qualitative detection and differentiation of ribosomal RNA (rRNA) from Chlamydia trachomatis (CT) and/or Neisseria gonorrhoeae (GC) to aid the diagnosis of chlamydial and/or gonococcal urogenital disease using the [employer] System. The Aptima Combo 2 Assay involves target capture, target amplification by Aircraft Engine Dismantler-Mediated Amplification (TMA), and the detection of the amplification products (amplicon) by the Hybridization Protection Assay (HPA). The internal process controls of the [place] [facility] monitor the target capture, amplification, and detection steps of the assay, this is not intended to control for sampling adequacy. Performed By: #### L [id number] ####[facility] ([facility])[address] [place] [address] Performed By: #### L [id number] #### [facility] ([facility]) [address] [place] [address] NEISSERIA GONORRHOEAE DNA PROBE (PRESENCE) IN UNSP SPEC Negative Normal Negative [facility] Comment on above: Result Comment: No N eisseria gonorrhoeae rRNA Detected. The Aptima Combo 2 Assay is a FDA approved target amplification nucleic acid probe test that utilizes target capture for the in vitro qualitative detection and differentiation of ribosomal RNA (rRNA) from Chlamydia trachomatis (CT) and/or Neisseria gonorrhoeae (GC) to aid the diagnosis of chlamydial and/or gonococcal urogenital disease using the [place] System. The Aptima Combo 2 Assay involves target capture, target amplification by Aircraft Engine Dismantler-Mediated Amplification (TMA), and the detection of the amplification products (amplicon) by the Hybridization Protection Assay (HPA). The internal process controls of the [place] [facility] monitor the target capture, amplification, and detection steps of the assay, this is not intended to control for sampling adequacy. Performed By: #### L [id number] ####[facility] ([facility])[address] [place] [address] Performed By: #### L [id number] #### [facility] ([facility]) [address] [place] [address] FTA ABSon 04-06-2023 FTA-ABS Reactive Abnormal Nonreactive, 1+, 2+, 3+, 4+, Inconclusive [facility] Comment on above: Performed By: #### L [id number] #### [facility] ([facility]) [address] [place] [address] HIV COMBO 4Gon 04-06-2023 HIV COMBO 4G Negative Normal Negative [facility] Comment on above: Performed By: #### L [id number] #### [facility] ([facility]) [address] [place] [address] Office Visiton 04-06-2023 Follow-up visit [id number] RonniBlanca Jasmina 1990 Date Provider Department [place] 04/06/2023 ORIN VERNON [facility] family history on file Level of Service:66177 CA OFFICE/OUTPATIENT ESTABLISHED MOD MDM 30-39 MIN Normal [facility] RPRon 04-06-2023 REAGIN AB PRESENCE IN SERUM BY RPR Reactive Abnormal Nonreactive [facility] Comment on above: Performed By: #### L [id number] #### [facility] ([facility]) [address] [place] [address] RPR QUANTITATIVEon RPR QUANT 1:8 High <1:1 [facility] Comment on above: Result Comment: The syphilis screen is a treponemal assay; patients with previously treated syphilis could be reactive on this assay, but nonreactive on the RPR Quant assay. Performed By: #### L [id number] #### [facility] ([facility]) [address] [facility] [place] [address] Orders Onlyon 03-19-2023 Orders Only [id number] Blanca Rudolph Jasmina 1990 Date Provider Department [place] [facility] No family history on file Normal [facility] 36on 02-09-2023 36 Patient would like prescription mailed to him. Address in [facility] verified with patient. Normal [facility] Refillon 02-09-2023 Refill [id number] RonniKristineBlancaevin Freedman 1990 Date Provider Department Center 02/09/2023 JEFFERY AVITIA [facility] CARE [facility] No family history on file Reason for Visit and Comments: Med Refill [[id number]] Normal [facility] CBC WITH AUTO DIFFERENTIALon 01-05-2023 Basophils (Bld) [#/Vol] 0.01 10*3/uL Normal 0.00-0.20 [facility] Comment on above: Performed By: #### L [id number] #### [facility] ([facility]) [address] [place] [address] Basophils/100 WBC (Bld) 0.1 % Normal 0.0-1.0 [facility] Comment on above: Performed By: #### L [id number] #### [facility] [address] [place] [address] Eosinophils (Bld) [#/Vol] 0.00 10*3/uL Normal 0.00-0.50 [facility] Comment on above: Performed By: #### L [id number] #### [facility] [address] [place] [address] Eosinophils/100 WBC (Bld) 0.0 % Normal 0.0-6.0 [facility] Comment on above: Performed By: #### L [id number] #### [facility] ([facility]) [address] [place] [address] Erythrocyte distribution width (RBC) [Ratio] 14.1 % Normal 11.5-15.0 [facility] Comment on above: Performed By: #### L [id number] #### [facility] [address] [place] [address] ERYTHROCYTE MEAN CORPUSCULAR HEMOGLOBIN CONCENTRATION (G/DL) BY AUTOMATED 35.5 g/dL High 32.0-35.0 [facility] Comment on above: Performed By: #### L [id number] #### [facility] [address] [place] [address] Hematocrit (Bld) [Volume fraction] 36.9 % Normal 36.0-48.0 [facility] Comment on above: Performed By: #### L [id number] #### [facility] ([facility]) [address] [place] [address] Hemoglobin (Bld) [Mass/Vol] 13.1 g/dL Normal 12.0-15.0 [facility] Comment on above: Performed By: #### L [id number] #### [facility] ([facility]) [address] [place] [address] Immature granulocytes (Bld) [#/Vol] 0.09 10*3/uL Normal 0.00-0.20 [facility] Comment on above: Performed By: #### L [id number] #### [facility] ([facility]) [address] [place] [address] Immature granulocytes/100 WBC (Bld) 0.9 % Normal 0.0-1.0 [facility] Comment on above: Performed By: #### L [id number] #### [facility] ([facility]) [address] [place] [address] Lymphocytes (Bld) [#/Vol] 0.40 10*3/uL Low 1.20-4.00 [facility] Comment on above: Performed By: #### L [id number] #### [facility] ([facility]) [address] [place] [address] Lymphocytes/100 WBC (Bld) 3.8 % Low 20.0-45.0 [facility] Comment on above: Performed By: #### L [id number] #### [facility] ([facility]) [address] [place] [address] MCH (RBC) [Entitic mass] 31.2 pg Normal 27.0-33.0 [facility] Comment on above: Performed By: #### L [id number] #### [facility] ([facility]) [address] [place] [address] MCV (RBC) [Entitic vol] 87.9 fL Normal 82.0-98.0 [facility] Comment on above: Performed By: #### L [id number] #### [facility] ([facility]) [address] [place] [address] Monocytes (Bld) [#/Vol] 0.17 10*3/uL Normal 0.10-1.00 [facility] Comment on above: Performed By: #### L [id number] #### [facility] ([facility]) [address] [place] [address] Monocytes/100 WBC (Bld) 1.6 % Low 5.0-12.0 [facility] Comment on above: Performed By: #### L [id number] #### [facility] ([facility]) [address] [place] [place] [address] Neutrophils (Bld) [#/Vol] 9.73 10*3/uL High 1.60-7.60 [facility] Comment on above: Performed By: #### L [id number] #### [facility] ([facility]) [address] [place] [place] [address] Neutrophils/100 WBC (Bld) 93.6 % High 40.0-72.0 [facility] Comment on above: Performed By: #### L [id number] #### [facility] ([facility]) [address] [place] [address] NRBC (PER 100 WBCS) BY AUTOMATED COUNT 0.0 % Normal 0 [facility] Comment on above: Performed By: #### L [id number] #### [facility] ([facility]) [address] [place] [address] PLATELETS (10*3/UL) IN BLOOD AUTOMATED COUNT 273 10*3/uL Normal 150-400 [facility] Comment on above: Performed By: #### L [id number] #### [facility] ([facility]) [address] [place] [address] RBC (Bld) [#/Vol] 4.20 10*6/uL Normal 3.80-5.00 [facility] Comment on above: Performed By: #### L [id number] #### [facility] ([facility]) [address] [place] [place] [address] WBC (Bld) [#/Vol] 10.40 10*3/uL Normal 4.00-10.60 [facility] Comment on above: Performed By: #### L [id number] #### [facility] ([facility]) [address] [place] [address] COMPREHENSIVE METABOLIC PANE Gerardo 01-05-2023 Albumin [Mass/Vol] 2.8 g/dL Low 3.5-5.7 [facility] Comment on above: Performed By: #### L [id number] #### [facility] [address] [place] [address] ALP [Catalytic activity/Vol] 51 U/L Normal 34-104 [facility] Comment on above: Performed By: #### L [id number] #### [facility] [address] [place] [address] ALT [Catalytic activity/Vol] 17 U/L Normal 7-52 [facility] Comment on above: Performed By: #### L [id number] #### [facility] [address] [place] [address] Anion gap [Moles/Vol] 13 mmol/L Normal 7-20 [facility] Comment on above: Performed By: #### L [id number] #### [facility] [address] [place] [address] AST [Catalytic activity/Vol] 16 U/L Normal 13-39 [facility] Comment on above: Performed By: #### L [id number] #### [facility] [address] [place] [address] Bilirubin [Mass/Vol] 0.4 mg/dL Normal 0.3-1.0 [facility] Comment on above: Performed By: #### L [id number] #### [facility] [address] [place] [address] Calcium [Mass/Vol] 7.9 mg/dL Low 8.6-10.3 [facility] Comment on above: Performed By: #### L [id number] #### [facility] ([facility]) [address] [place] [address] Chloride [Moles/Vol] 99 mmol/L Normal 98-107 [facility] Comment on above: Performed By: #### L [id number] #### [facility] ([facility]) [address] [place] [address] CO2 [Moles/Vol] 30 mmol/L Normal 21-31 [facility] Comment on above: Performed By: #### L [id number] #### [facility] ([facility]) [address] [place] [address] Creatinine [Mass/Vol] 1.46 mg/dL High 0.60-1.20 [facility] Comment on above: Performed By: #### L [id number] #### [facility] ([facility]) [address] [place] [address] GLOMERULAR FILTRATION RATE ML/MIN/1.73 SQ M.PREDICTED 49.0 mL/min/1.73m*2 Low >60.0 [facility] Comment on above: Result Comment: The [facility]???s estimated glomerular filtration rate (eGFR) will no longer include consideration of race in its calculation. The National Kidney Foundation???s eGFR Task Force developed new recommendations for the estimation of the glomerular filtration rate in the [place] They recommend immediate implementation of the new equation refit without the race variable in all laboratories because the calculation does not include race. In addition to not including race in the calculation and reporting, it included diversity in its development, and has acceptable performance characteristics and potential consequences that do not disproportionately affect any one group of individuals. Performed By: #### L [id number] #### [facility] ([facility]) [address] [place] [address] Glucose [Mass/Vol] 139 mg/dL High 70-100 [facility] Comment on above: Performed By: #### L [id number] #### [facility] [address] [place] [address] Potassium [Moles/Vol] 4.1 mmol/L Normal 3.5-5.1 [facility] Comment on above: Performed By: #### L [id number] #### [facility] CENTER) [address] [place] [address] Protein [Mass/Vol] 4.9 g/dL Low 6.0-8.3 [facility] Comment on above: Performed By: #### L [id number] #### [facility] [address] [place] [address] Sodium [Moles/Vol] 138 mmol/L Normal 136-145 [facility] Comment on above: Performed By: #### L [id number] #### [facility] ([facility]) [address] [place] [address] Urea nitrogen [Mass/Vol] 35 mg/dL High 7-25 [facility] Comment on above: Performed By: #### L [id number] #### [facility] ([facility]) [address] [place] [address] UREA NITROGEN/CREATININE (MASS RATIO) IN SER/PLAS 24.0 Normal [facility] Comment on above: Performed By: #### L [id number] #### [facility] ([facility]) [address] [place] [address] HIV COMBO 4Gon 01-05-2023 HIV COMBO 4G Negative Normal Negative [facility] Comment on above: Performed By: #### L [id number] #### [facility] ([facility]) [address] [place] [address] Office Visiton 01-05-2023 Follow-up visit [id number] Blanca Rudolph 1990 F Date Provider Department Center 01/05/2023 [facility] Ena Heal No family history on file Level of Service:98601 [place] OFFICE/OUTPATIENT ESTABLISHED MOD MDM 30-39 MIN Normal [facility] CBC WITH AUTO DIFFERENTIALon 12-15-2022 Basophils (Bld) [#/Vol] 0.02 10*3/uL Normal 0.00-0.20 [facility] Comment on above: Performed By: #### L [id number] #### [facility] ([facility]) [address] [place] [address] Basophils/100 WBC (Bld) 0.1 % Normal 0.0-1.0 [facility] Comment on above: Performed By: #### L [id number] #### [facility] ([facility]) [address] [place] [address] Eosinophils (Bld) [#/Vol] 0.00 10*3/uL Normal 0.00-0.50 [facility] Comment on above: Performed By: #### L [id number] #### [facility] ([facility]) [address] [place] [address] Eosinophils/100 WBC (Bld) 0.0 % Normal 0.0-6.0 [facility] Comment on above: Performed By: #### L [id number] #### [facility] ([facility]) [address] [place] [address] Erythrocyte distribution width (RBC) [Ratio] 12.7 % Normal 11.5-15.0 [facility] Comment on above: Performed By: #### L [id number] #### [facility] [address] [place] [address] ERYTHROCYTE MEAN CORPUSCULAR HEMOGLOBIN CONCENTRATION (G/DL) BY AUTOMATED 36.5 g/dL High 32.0-35.0 [facility] Comment on above: Performed By: #### L [id number] #### [facility] ([facility]) [address] [place] [address] Hematocrit (Bld) [Volume fraction] 33.7 % Low 36.0-48.0 [facility] Comment on above: Performed By: #### L [id number] #### [facility] ([facility]) [address] [place] [address] Hemoglobin (Bld) [Mass/Vol] 12.3 g/dL Normal 12.0-15.0 [facility] Comment on above: Performed By: #### L [id number] #### [facility] ([facility]) [address] [place] [address] Immature granulocytes (Bld) [#/Vol] 0.09 10*3/uL Normal 0.00-0.20 [facility] Comment on above: Performed By: #### L [id number] #### [facility] [address] [place] [address] Immature granulocytes/100 WBC (Bld) 0.6 % Normal 0.0-1.0 [facility] Comment on above: Performed By: #### L [id number] #### [facility] ([facility]) [address] [place] [address] Lymphocytes (Bld) [#/Vol] 0.44 10*3/uL Low 1.20-4.00 [facility] Comment on above: Performed By: #### L [id number] #### [facility] ([facility]) [address] [place] [address] Lymphocytes/100 WBC (Bld) 3.0 % Low 20.0-45.0 [facility] Comment on above: Performed By: #### L [id number] #### [facility] ([facility]) [address] [place] [address] MCH (RBC) [Entitic mass] 31.1 pg Normal 27.0-33.0 [facility] Comment on above: Performed By: #### L [id number] #### [facility] ([facility]) [address] [facility] [place] [address] MCV (RBC) [Entitic vol] 85.1 fL Normal 82.0-98.0 [facility] Comment on above: Performed By: #### L [id number] #### [facility] ([facility]) [address] [place] [address] Monocytes (Bld) [#/Vol] 0.25 10*3/uL Normal 0.10-1.00 [facility] Comment on above: Performed By: #### L [id number] #### [facility] ([facility]) [address] [address] Monocytes/100 WBC (Bld) 1.7 % Low 5.0-12.0 [facility] Comment on above: Performed By: #### L [id number] #### [facility] ([facility]) [address] [place] [address] Neutrophils (Bld) [#/Vol] 13.63 10*3/uL High 1.60-7.60 [facility] Comment on above: Performed By: #### L [id number] #### [facility] ([facility]) [address] [place] [address] Neutrophils/100 WBC (Bld) 94.6 % High 40.0-72.0 [facility] Comment on above: Performed By: #### L [id number] #### [facility] ([facility]) [address] [place] [address] NRBC (PER 100 WBCS) BY AUTOMATED COUNT 0.0 % Normal 0 [facility] Comment on above: Performed By: #### L [id number] #### [facility] ([facility]) [address] [place] [address] PLATELETS (10*3/UL) IN BLOOD AUTOMATED COUNT 302 10*3/uL Normal 150-400 [facility] Comment on above: Performed By: #### L [id number] #### [facility] ([facility]) [address] [place] [address] RBC (Bld) [#/Vol] 3.96 10*6/uL Normal 3.80-5.00 [facility] Comment on above: Performed By: #### L [id number] #### [facility] ([facility]) [address] [place] [address] WBC (Bld) [#/Vol] 14.43 10*3/uL High 4.00-10.60 [facility] Comment on above: Performed By: #### L [id number] #### [facility] ([facility]) [address] [place] [address] CHLAMYDIA TRACHOMATIS AND NE ISSERIA GONORRHEA, TMAon 12-15-2022 CHLAMYDIA TRACHOMATIS DNA PROBE (PRESENCE) IN UNSP SPEC Negative Normal Negative [facility] Comment on above: Result Comment: No C hlamydia trachomatis rRNA Detected. The Aptima Combo 2 Assay is a FDA approved target amplification nucleic acid probe test that utilizes target capture for the in vitro qualitative detection and differentiation of ribosomal RNA (rRNA) from Chlamydia trachomatis (CT) and/or Neisseria gonorrhoeae (GC) to aid the diagnosis of chlamydial and/or gonococcal urogenital disease using the [facility]. The Aptima Combo 2 Assay involves target capture, target amplification by Aircraft Engine Dismantler-Mediated Amplification (TMA), and the detection of the amplification products (amplicon) by the Hybridization Protection Assay (HPA). The internal process controls of the [facility] monitor the target capture, amplification, and detection steps of the assay, this is not intended to control for sampling adequacy. Performed By: #### L [id number] #### [facility] ([facility]) [address] [place] [address] Performed By: #### L [id number] ####[facility] ([facility])[address] [place] [address] NEISSERIA GONORRHOEAE DNA PROBE (PRESENCE) IN UNSP SPEC Negative Normal Negative [facility] Comment on above: Result Comment: No N eisseria gonorrhoeae rRNA Detected. The Aptima Combo 2 Assay is a FDA approved target amplification nucleic acid probe test that utilizes target capture for the in vitro qualitative detection and differentiation of ribosomal RNA (rRNA) from Chlamydia trachomatis (CT) and/or Neisseria gonorrhoeae (GC) to aid the diagnosis of chlamydial and/or gonococcal urogenital disease using the [facility]. The Aptima Combo 2 Assay involves target capture, target amplification by Aircraft Engine Dismantler-Mediated Amplification (TMA), and the detection of the amplification products (amplicon) by the Hybridization Protection Assay (HPA). The internal process controls of the [facility] monitor the target capture, amplification, and detection steps of the assay, this is not intended to control for sampling adequacy. Performed By: #### L [id number] #### [facility] ([facility]) [address] [place] [address] Performed By: #### L [id number] ####[facility] ([facility])[address] [place] [address] COMPREHENSIVE METABOLIC PANE Gerardo 12-15-2022 Albumin [Mass/Vol] 2.3 g/dL Low 3.5-5.7 [facility] Comment on above: Performed By: #### L [id number] #### [facility] ([facility]) [address] [place] [address] ALP [Catalytic activity/Vol] 48 U/L Normal 34-104 [facility] Comment on above: Performed By: #### L [id number] #### [facility] ([facility]) [address] [place] [address] ALT [Catalytic activity/Vol] 14 U/L Normal 7-52 [facility] Comment on above: Performed By: #### L [id number] #### [facility] ([facility]) [address] [place] [address] Anion gap [Moles/Vol] 11 mmol/L Normal 7-20 [facility] Comment on above: Performed By: #### L [id number] #### [facility] [address] [place] [address] AST [Catalytic activity/Vol] 14 U/L Normal 13-39 [facility] Comment on above: Performed By: #### L [id number] #### [facility] ([facility]) [address] [place] [address] Bilirubin [Mass/Vol] 0.4 mg/dL Normal 0.3-1.0 [facility] Comment on above: Performed By: #### L [id number] #### [facility] ([facility]) [address] [place] [address] Calcium [Mass/Vol] 7.8 mg/dL Low 8.6-10.3 [facility] Comment on above: Performed By: #### L [id number] #### [facility] ([facility]) [address] [place] [address] Chloride [Moles/Vol] 93 mmol/L Low 98-107 [facility] Comment on above: Performed By: #### L [id number] #### [facility]) [address] [place] [address] CO2 [Moles/Vol] 30 mmol/L Normal 21-31 [facility] Comment on above: Performed By: #### L [id number] #### [facility] ([facility]) [address] [place] [address] Creatinine [Mass/Vol] 1.36 mg/dL High 0.60-1.20 [facility] Comment on above: Performed By: #### L [id number] #### [facility] ([facility]) [address] [place] [address] GLOMERULAR FILTRATION RATE ML/MIN/1.73 SQ M.PREDICTED 53.4 mL/min/1.73m*2 Low >60.0 [facility] Comment on above: Result Comment: The [facility]???s estimated glomerular filtration rate (eGFR) will no longer include consideration of race in its calculation. The National Kidney Foundation???s eGFR Task Force developed new recommendations for the estimation of the glomerular filtration rate in the [place] They recommend immediate implementation of the new equation refit without the race variable in all laboratories because the calculation does not include race. In addition to not including race in the calculation and reporting, it included diversity in its development, and has acceptable performance characteristics and potential consequences that do not disproportionately affect any one group of individuals. Performed By: #### L [id number] #### [facility] ([facility]) [address] [place] [address] Glucose [Mass/Vol] 135 mg/dL High 70-100 [facility] Comment on above: Performed By: #### L [id number] #### [facility] ([facility]) [address] [place] [address] Potassium [Moles/Vol] 4.0 mmol/L Normal 3.5-5.1 [facility] Comment on above: Performed By: #### L [id number] #### [facility] ([facility]) [address] [place] [address] Protein [Mass/Vol] 4.8 g/dL Low 6.0-8.3 [facility] Comment on above: Performed By: #### L [id number] #### [facility] ([facility]) [address] [place] [address] Sodium [Moles/Vol] 130 mmol/L Low 136-145 [facility] Comment on above: Performed By: #### L [id number] #### [facility] ([facility]) [address] [facility] [place] [address] Urea nitrogen [Mass/Vol] 29 mg/dL High 7-25 [facility] Comment on above: Performed By: #### L [id number] #### [facility] ([facility]) [address] [place] [address] UREA NITROGEN/CREATININE (MASS RATIO) IN SER/PLAS 21.3 Normal [facility] Comment on above: Performed By: #### L [id number] #### [facility] ([facility]) [address] [place] [address] Consulton 12-15-2022 Consult [id number] Blanca Rudolph 1990 F Date Provider Department [place] 12/15/2022 [facility] Ena Heal No family history on file Level of Service:46679 [place] OFFICE/OUTPATIENT NEW MODERATE MDM 45-59 MINUTES Normal [facility] HEPATITIS A ANTIBODY, TOTALo n 12-15-2022 HEPATITIS A VIRUS AB PRESENCE IN SER BY IMMUNOASSAY Negative Normal Negative [facility] Comment on above: Result Comment: Perf ormed By: [employer] [address] [place] [address] Crosstie Inspector: Ari Seay MD, PhD CLIA Number: [id number] Performed By: #### L [id number] #### [facility] ([facility]) [address] [place] [address] HEPATITIS B CORE ANTIBODY, T OTALon 12-15-2022 HEPATITIS B VIRUS CORE AB (PRESENCE) IN SER/PLAS BY IMM Non-Reactive Normal Nonreactive [facility] Comment on above: Performed By: #### L [id number] #### [facility] ([facility]) [address] [place] [address] HEPATITIS B SURFACE ANTIBODY QUANTon 12-15-2022 HEPATITIS B VIRUS SURFACE AB (MIU/ML) IN SERUM 3.53 mIU/mL Normal [facility] Comment on above: Result Comment: INTE RPRETATION: NONREACTIVE<8.00 mIU/mL INDETERMINATE8.00 - 12.00 mIU/mL REACTIVE>12 mIU/mL Performed By: #### L [id number] #### [facility] ([facility]) [address] [place] [address] HEPATITIS B SURFACE ANTIGENo n 12-15-2022 HEPATITIS B VIRUS SURFACE AG PRESENCE IN SERUM Non-Reactive Normal Nonreactive [facility] Comment on above: Performed By: #### L [id number] #### [facility] ([facility]) [address] [place] [address] HEPATITIS C ANTIBODYon 12-15 HEPATITIS C VIRUS AB PRESENCE IN SERUM Non-Reactive Normal Nonreactive [facility] Comment on above: Performed By: #### L [id number] #### [facility] ([facility]) [address] [place] [address] HIV COMBO 4Gon 12-15-2022 HIV COMBO 4G Negative Normal Negative [facility] Comment on above: Performed By: #### L [id number] #### [facility] ([facility]) [address] [place] [address] URINALYSISon 12-15-2022 BILIRUBIN, TOTAL PRESENCE IN URINE Negative Normal Negative [facility] Comment on above: Performed By: #### L [id number] #### [facility] ([facility]) [address] [place] [address] Clarity (U) Clear Normal Clear [facility] Comment on above: Performed By: #### L [id number] #### [facility] ([facility]) [address] [place] [address] Color (U) Yellow Normal Yellow [facility] Comment on above: Performed By: #### L [id number] #### [facility] ([facility]) [address] [place] [address] Glucose (U) [Mass/Vol] Negative Normal Negative [facility] Comment on above: Performed By: #### L [id number] #### [facility] ([facility]) [address] [place] [address] HEMOGLOBIN PRESENCE IN URINE Moderate Abnormal Negative [facility] Comment on above: Performed By: #### L [id number] #### [facility] ([facility]) [address] [place] [address] Ketones Ql (U) Negative Normal Negative [facility] Comment on above: Performed By: #### L [id number] #### [facility] ([facility]) [address] [place] [address] LEUKOCYTE ESTERASE PRESENCE IN URINE BY TEST STRIP Negative Normal Negative [facility] Comment on above: Performed By: #### L [id number] #### [facility] ([facility]) [address] [place] [address] NITRITE PRESENCE IN URINE Negative Normal Negative [facility] Comment on above: Performed By: #### L [id number] #### [facility] ([facility]) [address] [place] [address] pH (U) 6.0 [pH] Normal 5.0-8.0 [facility] Comment on above: Performed By: #### L [id number] #### [facility] ([facility]) [address] [place] [address] Protein (U) [Mass/Vol] mg/dL Abnormal Negative [facility] Comment on above: Performed By: #### L [id number] #### [facility] ([facility]) [address] [place] [address] Specific gravity (U) [Rel density] 1.004 Low 1.015-1.020 [facility] Comment on above: Performed By: #### L [id number] #### [facility] ([facility]) [address] [place] [address] URINALYSIS MICROSCOPICon CASTS IN URINE Normal [facility] Comment on above: Performed By: #### L [id number] #### [facility] ([facility]) [address] [place] [address] CRYSTALS IN URINE Normal [facility] Comment on above: Performed By: #### L [id number] #### [facility] [address] [place] [address] RBC (#/HPF) IN URINE SEDIMENT 11-20 Abnormal None Seen [facility] Comment on above: Performed By: #### L [id number] #### [facility] ([facility]) [address] [place] [address] SQUAMOUS EPITHELIAL CELLS (#/HPF) IN URINE SEDIMENT Few Abnormal None Seen, Occasional [facility] Comment on above: Performed By: #### L [id number] #### [facility] ([facility]) [address] [place] [address] WBC (LEUKOCYTE) (#/HPF) IN URINE SEDIMENT 0-2 Abnormal None Seen [facility] Comment on above: Performed By: #### L [id number] #### [facility] ([facility]) [address] [place] [address] Documentationon 12-05-2022 Documentation [id number] Blanca Rudolph 1990 F Date Provider Department Center 12/05/2022 [facility] Ena Heal No family history on file Reason for Visit and Comments: Lupkynis Rx: [facility] [Other] - RX from [facility] Inpatient Normal [facility] Orders Onlyon 12-04-2022 Orders Only [id number] Blanca Rudolph 1990 F Date Provider Department Center 12/04/2022 [facility] No family history on file Normal [facility] Transfer Inon 09-07-2022 Transfer In [id number] Normal [facility] Ambulatory Visit Summaryon 0 09-05-2022 Ambulatory Visit Summary BLANCA RUDOLPH :1990 Visit Date:09/05/2022 Ambulatory Visit Instructions Your Diagnosis Frequent UTI Tests Performed Urnls Dip Stick Auto w/o Microscopy POC 51437 Your Care Team Attending Physician - CYNTHIA GALLARDO PA-C Primary Care Physician - BILLY ZELAYA PA-C Referring Physician - BILLY ZELAYA PA-C This Is Your Medications List dicyclomine (Bentyl 10 mg Cap) etonogestrel (Nexplanon) famotidine (Pepcid 20 mg Tab) ferrous sulfate (FeroSul 325 mg oral tablet) lisinopril omeprazole (omeprazole 40 mg Cap-DR) rivaroxaban (Xarelto) Procedures Performed section, Cholecystectomy, Incision and drainage of hematoma, Tubal ligation. Discharge Vitals Heart Rate (Peripheral) 68 Respiratory Rate 16 Blood Pressure 138/74 Height 172 cm Height 68 in Weight 132 kg Weight 290.4 lb BMI 44.62 Medications What How Much When Why Instructions Unchanged dicyclomine (Bentyl 10 mg Cap) 1 Capsules By Mouth 4 times a day Epigastric pain Duration: 30 Days Unchanged etonogestrel (Nexplanon) 68 Milligram Subcutaneous in pts right arm Unchanged famotidine (Pepcid 20 mg Tab) 1 Tablets By Mouth Every day as needed for Control of stomach acid Unchanged ferrous sulfate (FeroSul 325 mg oral tablet) 1 Tablets By Mouth Every day Unchanged lisinopril 10 Milligram By Mouth Every day Unchanged omeprazole (omeprazole 40 mg Cap-DR) 1 Capsules By Mouth Every day Acid reflux Duration: 90 Days Unchanged rivaroxaban (Xarelto) 20 Milligram By Mouth Once a day (in the evening) Test Results Urnls Dip Stick Auto w/o Microscopy POC 15914 (09/05/2022) Bilirubin Urine Dipstick - Negative Blood Urine Dipstick - Trace-intact Glucose Urine Dipstick - Negative Ketones Urine Dipstick - Negative Leukocytes Urine Dipstick - Negative Nitrite Urine Dipstick - Negative Protein Urine Dipstick - Negative Specific [place] Urine Dipstick - 1.020 Urine Appearance Urine Dipstick - Clear Urine Color Urine Dipstick - Dark yellow Urobilinogen Urine Dipstick - Normal 0.2-1 EU/dl pH Urine Dipstick - 6 Allergies Keflex (Leg pain) ibuprofen (medication interference) Problems Ongoing - Any problem that you are currently receiving treatment for. Acid reflux ADD (attention deficit disorder) Allergic rhinitis Anxiety Back pain BMI 45.0-49.9, adult Calculus of gallbladder Cholelithiasis Depressive disorder Epigastric pain Frequent UTI Gas pain Gastritis Hypertension Morbid obesity Nausea On rivaroxaban therapy Type II diabetes mellitus Historical - Any problem that you are no longer receiving treatment for. Adult ADHD Normal [facility] Patient Educationon 09-06-19 Patient Education Obstetrics and Gynecology Urinary Tract Infection, Adult A urinary tract infection (UTI) is an infection of any part of the urinary tract. The urinary tract includes the kidneys, ureters, bladder, and urethra. These organs make, store, and get rid of urine in the body. An upper UTI affects the ureters and kidneys. A lower UTI affects the bladder and urethra. What are the causes? Most urinary tract infections are caused by bacteria in your genital area around your urethra, where urine leaves your body. These bacteria grow and cause inflammation of your urinary tract. What increases the risk? You are more likely to develop this condition if: ? You have a urinary catheter that stays in place. ? You are not able to control when you urinate or have a bowel movement (incontinence). ? You are female and you: ? Use a spermicide or diaphragm for control. ? Have low estrogen levels. ? Are . ? You have certain genes that increase your risk. ? You are sexually active. ? You take antibiotic medicines. ? You have a condition that causes your flow of urine to slow down, such as: ? An enlarged prostate, if you are male. ? Blockage in your urethra. ? A kidney stone. ? A nerve condition that affects your bladder control (neurogenic bladder). ? Not getting enough to drink, or not urinating often. ? You have certain medical conditions, such as: ? Diabetes. ? A weak disease-fighting system (immunesystem). ? Sickle cell disease. ? Gout. ? Spinal cord injury. What are the signs or symptoms? Symptoms of this condition include: ? Needing to urinate right away (urgency). ? Frequent urination. This may include small amounts of urine each time you urinate. ? Pain or burning with urination. ? Blood in the urine. ? Urine that smells bad or unusual. ? Trouble urinating. ? Cloudy urine. ? Vaginal discharge, if you are female. ? Pain in the abdomen or the lower back. You may also have: ? Vomiting or a decreased appetite. ? Confusion. ? Irritability or tiredness. ? A fever or chills. ? Diarrhea. The first symptom in older adults may be confusion. In some cases, they may not have any symptoms until the infection has worsened. How is this diagnosed? This condition is diagnosed based on your medical history and a physical exam. You may also have other tests, including: ? Urine tests. ? Blood tests. ? Tests for STIs (sexually transmitted infections). If you have had more than one UTI, a cystoscopy or imaging studies may be done to determine the cause of the infections. How is this treated? Treatment for this condition includes: ? Antibiotic medicine. ? Sqje-zos-rkyvtbo medicines to treat discomfort. ? Drinking enough water to stay hydrated. If you have frequent infections or have other conditions such as a kidney stone, you may need to see a health care provider who specializes in the urinary tract (urologist). In rare cases, urinary tract infections can cause sepsis. Sepsis is a life-threatening condition that occurs when the body responds to an infection. Sepsis is treated in the hospital with IV antibiotics, fluids, and other medicines. Follow these instructions at home: Medicines ? Take qdet-vaf-fbuizil and prescription medicines only as told by your health care provider. ? If you were prescribed an antibiotic medicine, take it as told by your health care provider. Do not stop using the antibiotic even if you start to feel better. General instructions ? Make sure you: ? Empty your bladder often and completely. Do not hold urine for long periods of time. ? Empty your bladder after sex. ? Wipe from front to back after urinating or having a bowel movement if you are female. Use each tissue only one time when you wipe. ? Drink enough fluid to keep your urine pale yellow. ? Keep all follow-up visits. This is important. Contact a health care provider if: ? Your symptoms do not get better after 1?2 days. ? Your symptoms go away and then return. Get help right away if: ? You have severe pain in your back or your lower abdomen. ? You have a fever or chills. ? You have nausea or vomiting. Summary ? A urinary tract infection (UTI) is an infection of any part of the urinary tract, which includes the kidneys, ureters, bladder, and urethra. ? Most urinary tract infections are caused by bacteria in your genital area. ? Treatment for this condition often includes antibiotic medicines. ? If you were prescribed an antibiotic medicine, take it as told by your health care provider. Do not stop using the antibiotic even if you start to feel better. ? Keep all follow-up visits. This is important. This information is not intended to replace advice given to you by your health care provider. Make sure you discuss any questions you have with your health care provider. Document Revised: 11/26/2020 Document Revie (more content not included)... Normal [facility] Coding Summary.on 08-16-2022 Coding Summary. [id number] W w+PGhlYWQ+[id number] knJMroC1eQ0WVDRwWZrne BBBHFVkVJtLtxfGzSL4pc XNjZXJu IC8+DJ3yYNEzIyovzDMcw 7P0iAV6R48dsp0nRIpaaG F3UPEyRtCrshueo8kyrOt 6IDcuNmluOyBt YSLbvL83MGD5vC99Op58e OCmtIXgc8ucaRc1RwBpHY ZdCLM7iJkvZWbda4GjTHX kU87xwIArr3H1 PIMfjDgjeTAiHtUcoBW3r Z1lXLlrjgoip5ygnmctSu g5hk61zHAtn0J5uIC7E6C necP8ZSEbqTXf KeosjFYCsY9bulqcp9ijl orfCmOnLBLhJWp1PHr9XT VnqJkxFoTbVX06DJA9JIM qjoBuI1FtRUYc tQlmPgJ8i6Y2Hh8VS7ZJH iimQ5DVTBDQJWwyiQF+PC 63po55W1DsWwweFut9RIN jHNR8uMY9wN6b XCVqKJdhm7B6xVU1W3Tkm vIwtn5hl3tbQKZoIIbuN4 2jjKLml2N6WZJunBE8TQQ nyKqkAaDnvP89 Oyc+MHCmeHyhp9NcPizgy 1nvk2khdQc1GwftSBBfme UraOtrRBN7p0ZhZc2vEOK ofON4wJX5lZ9i ZuNoZcQ9FXodE078UgNot NJyCfmoC70cB7AhiME+PH SbUxh4XOKteIrhNC3zO4S hZGRpbmctbGVm mSlpDP5rCLOsvjvbYONpo C1jDCNbX0f2XgBuCtE5ZY wfX4JjWPZxlpnaXy90yD3 lDmPxTwD2PHiv D8KmeqT4MQVdcUKiWLjbA FF3F85cp3L7OEPkWYReBI N1nAE5kO7upBtdjrjxeVL mdDsgdmVydGlj ZNjlBTdfJ992LPAxnOvcJ kNvZGluZyBEYXRlOiAgMD QvMTkvMjAyMzwvdGQ+PHR kVBM3pKawXMBg hKYqBKzqCg8yhWhwnBnvC G1bZEQnxnayGLQzcL6sOA WdpWWdvGbzJY4sMNUijim oa877AfRqWUM9 NWHytMVrM7HlbR2jAaHnM HEgOICaW1XxuAJsTUphM7 76QKapJtF3WRDcqqIuQ3B sLWFsaWduOiB0 u7N3Hc9Cl9OikdjnN2Tgm RZgXtRgDdtxPRa5U8QuMv wvdHI+GY31YPOhIW13AYr 5EFD8sIocUTxd GWFuO5SeqZ6iQzHiDMVyZ GRkOyc+PHRhYmxlIHdpZH RoPScxMDAlJyBzdHlsZT0 dXq4lAIHsMODh hElytZEkEpNwv4igFDYkW GdsNN9dmIuzD9AdlFG0UR Hda1b8Fa75N97gH2DnrGD +BCTdxMP9fNK0 yL3gFnRgZyO3CIluB815R lIifRAqZiulz3guo4ahfK p4WcP8ZVQoegLubKkuBKN 9i7GrIk65A03g IHdpZHRoPSIxNSUiIHZhb Kiwpi5eiL3cSp5+PGNvbC Q0fKU1nU8iYyJhHuA5YSw gU900UxYsxMJk Oewvm9tdk0hrqRm3TmNmN SQixwQnzZpcWUW6c3FrGn 80V1SyuTcxp2WyRzk8jx7 8mQGhj8G8xKK1 G3JgUAGrghepkRVgfGlhA J6tLLXcqlakQYJqkO9yFA SzU3h0KcGuSgE1QWdtE8G ldvW0MQOtkJPg XVHamAYXxG9krzveo9tla fiuBxThRJHeAMy7AHm2WA CroLcaWiLgEEP5KdI2YNE 0iJPlcF6rnYrk ciyzaW5vKhe+WQQ7bPPut BSAFH1kAxtsmMK+PHRkIH D3fMghQAzrKZNujP7qHJX bC6z6TmCcBrI7 MQgfT0LwptZ5YNAkmRPcN BRjvLBQjW9zratha7zrce fdJyRgBWWmAUe3HDm3ZHM saWduOiBsZWZ0 DjC2WDX7wHEmmH7mkTdoi gqvbY2sHlm+QmlydGggRG I7VOc1F9PoZgb2MOPenPh aOY5nfENuBTsy Ce8vcJzxiNapVY8pNHDzi hdpb695LdGvi1gcLHQoiX AmNKliMSS6V66jq0F7CZN yYDJdZFC4qUZ6 zA2aeNjvyusjtICqpWzad rGziRecFFuyZQztW006BP JpnFmtOfApECk0F0XmIjm 1WSReoOstWV7k lLVmYXyfTg6pbJsxpDudJ N6cQRErdxpdi660CcEfz1 uoOBTaqNGbROqyYCS0D80 tf6N8VQIyWHOi DOG5kWF5jF9udOqupbgaa GVmdDsgdmVydGljYWwtYW ccT735QMIroPcbKsKytAn 9Z8NsTow1DRTt hMpbSU0xaKMqLWaoDc9gb FzldXzcUB1pWJJwchyfe6 16FwUsz2gqCOHweGCiQRa aHBW0N96xr7I9 VKWvORZgOHD2sXI6fX6rq GlnbjogbGVmdDsgdmVydG ixWPazJWnsJ132JTAblSe nPlBhdGllbnQg XKqaMVw4A9WcZxkvkAM+P W65QQQmWD48rKNwhECyz7 ytwCh1MvUeJJUkZKG9dQg tXZdox1IgRUQv Q07eyCTdv1H0IMOknExgu WTuKpMzdHV2eB3rVRqtpc ttu4fkzsqfEcjsa3gflw4 3nE50B86pFSon ZHRoPSIzMCUiIHZhbGlnb s3teK8ePs7+UTUvrLU3cI L7vW0uLKQrFeR1OArgA54 9InRvcCIvPjxj q2top2oohOf7YeC7CEXpa hSyfVccIMT1v8FwWc02I1 9sIHdpZHRoPSIyMCUiIHZ ubTbpfp2nxE9g Ii8+PFNfqEL5dHZ5rC7xI rAkCrJ3QEdyB200FiFbrK DyWnivA14kB0FqnJB+PHR uQya4EXAwvDik IN7wuSPhBSdxDp7aQZB4H nYvOpZdHFpyV8EzDXLkig ukpkoocJO1ZXErYJOulK6 5Gi4ywHvdVFAv pKXCqO5bjaggb0umlhthD oTkISZgNOh0SFw0IIZgfT stCfLxODF6ZbU9EFQ3iFU jsG3ekHzyuvxy qH0jP5WpTMNvixbqJn11b Q3vBeWdGvB6GGzyDxe+R0 RBU0zNKCPAUFHVP7FNKU6 6V7KpQzh8REVg vErkHZ1vuUBaIUejLi1mj DgtpUgkHN1bNAChrzlqWI IncQ5uWOOvbJDixNzxTN2 wWWXfuouji497 PkCtBMS2NOGlvSIeL7Zxr X4eCrRrITUoWWNtL8PxgG VoCPboZ283JJvlVrV2ZLE vjsFvD2ZlCYHf uDbgIbJ1o0W6Mt2dTw0aG V5wGGxnFP51MW81hTTsj8 Q3wPX2M6MaMCLtukftbef zvKV9CUVeCNQu cH50aFPcTBchPb4vr4A9a 370XDMpFHBncQ01Xb0olY mcGOJyuIXGoY8crcqla8f vcjogIzAwMDAw FVy9JYe7TJZimKmrOpPrV EQ5YzK3LCD7dKZfzK1ncF jmkugapY8uQbh+MzAgWWV azkS6C6YqQtc7 JCHsrNkeQI9xhTOoWAmkM z9qgRcayZarHR8mCQUdnm zuPJQvfD0yJBFhrEVdvTy uDC0dQSIqtdhr s276FyCyPVF8OCLwtIQyE 5ArwT9tIxEiRGWuVMYnB0 TrfJUdSUiiS456EPctQfA 5GFFbswHhH3Fm MIXorNaoLoM3p4N7Jt0JG Q3auWR6S3CwKds4BYSeiH esSZ7kmXDlMQmtTk0pwHv saNesHF9xXXMv bgmvCXCirP3lCSFctTSgc FcgKW4yFQOwhhoxl799Dk GnKGQ4MFVigSFqG1AaxC3 yOiAjMDAwMDAw J7SihFXlIJorI402NUejA kZ6LZPdedLxO7QvHOSfrH bqLmJ2u3V5Kx8JfEOuQMC nHQ24DD93TK51 I6QxEaxxhKJcgUK+PHRhY mxlIHdpZHRoPScxMDAlJy QtsWrfQX4hAa4bWHCtCJP vbGxhcHNlOiBj f2rxOSQcOZigYR6exHclM 7FznZV9MLOhe5d9Lw62X2 3rR0ChsMO+OPExqGZ3yQZ 3uW7hHsDqVrU4 TDguI835WzAidEUyUdkyp 4sqv0jqaIp0NaCgHKBhkh DnbKfbARN9h4EwIr48S07 sIHdpZHRoPSIy ZGMwFLVlnRurmb1dxV6iK i8+FSXrjMP7uZC3pI0iLp WwZkS5HWsbU973DrQtgZI ePhbtK84bH3Ao dXA+QBNwXig8CNUuyHorM Q4kdJJdKAadKe7xNGB3Zx SgPrWvQXhyI6DaEZYfqec tesrgcFO6FGKb HLGhpA89Sn4ajIjnVi0nJ UDjMOD3KWMiiBBiR6SyqC 2qSxPzUSVlNCUvL0CxyFF kXCclZ672VKqp HyM7ERCclwWjW4WcYWYfz HucKrA2r4I2Mw6LfWjvyF ZoBM5dUnZmCUu2Z8IkZws 6YTUhkKvpDQ6p cWXgHReqSa6ifGpbhRluI X3hQMMkpaphu309UzCmr2 luQWJnqBYbORmbFGI8G75 em7B3NNXsHETq LHF0qIC5bJ3thXxfoxkob GVmdDsgdmVydGljYWwtYW ddL879LNBlhKxgJpGEBti 5R0CpLzz7GOJi yPhxTY3bzKKrVOytEs2ma IybhQbuWH2gPRKqjjqzk4 74ZaFcf8hdDZTcjRZiGYm bNNZ2H85co3O7 JEEdOSAiOZJ6gGJ0iM7ns GlnbjogbGVmdDsgdmVydG txERkdLBerP300JFRdqRu tCe9IOsn3I3Hi Oay5JOLmvXljGJ8qgLFmH MbbZj0pfCzxeZpxSF7xTY Brexgvi529KkIcl5slTLY wcHQgVGltZXM7 T11gs3I4JLWsWXCfRCM3w RV7jC4eqGmruvlvkDWjvM yawpKbmWwvQZcuFGeeP11 6IHRvcDsnPlBh eWVyOjwvdGQ+UC23bt34K 9ZfBnmmUku2IFVoJWB9iH W1vJ3cLVKrUCrzd9H2dDF 2A8NgznFidg5z b8pcRHRa (more content not included)... Normal [facility] Reminderson 08-14-2022 Reminders - From: Ginny uLcas To: [facility] - [employer] [facility]; Sent: 08/14/2022 08:53:19 EDT Show up: 10/14/2022 08:52:00 EDT Subject: Ambulatory Reminder Reminder/Recall Call patient to schedule a 3 Month F/U with Katrin in October. Normal [facility] BMPon 08-10-2022 Anion gap [Moles/Vol] 11 mmol/L Normal 10-13 [facility] Comment on above: Performed By: #### 2 [id number] #### [facility] Laboratory [address] [place] [id number] Calcium [Mass/Vol] 8.3 mg/dL Low 8.9-11.1 [facility] Comment on above: Performed By: #### 2 [id number] #### [facility] Laboratory [address] [place] [address] Chloride [Moles/Vol] 104 mmol/L Normal 101-111 [facility] Comment on above: Performed By: #### 2 [id number] #### [facility] Laboratory [address] [place] [address] CO2 [Moles/Vol] 27 mmol/L Normal 21-31 [facility] Comment on above: Performed By: #### 2 [id number], [id number] #### [facility] Laboratory [address] [place] [address] Creatinine [Mass/Vol] 0.7 mg/dL Normal 0.5-1.3 [facility] Comment on above: Performed By: #### 2 [id number], [id number] #### [facility] [address] [place] [address] Glucose [Mass/Vol] 95 mg/dL Normal 55-199 [facility] Comment on above: Result Comment: If t his glucose result represents a fasting glucose, interpretation should refer to the following reference range: 55-99 mg/dL Performed By: #### 2 [id number], [id number] #### [facility] [address] [place] [address] Potassium [Moles/Vol] 3.6 mmol/L Normal 3.5-5.3 [facility] Comment on above: Performed By: #### 2 [id number], [id number], [id number] #### [facility] [address] [place] [address] Sodium [Moles/Vol] 138 mmol/L Normal 135-145 [facility] Comment on above: Performed By: #### 2 [id number], [id number], [id number] #### [facility] [address] [place] [address] Urea nitrogen [Mass/Vol] 12 mg/dL Normal 5-21 [facility] Comment on above: Performed By: #### 2 [id number], [id number], [id number] #### [facility] [address] [place] [address] Urea nitrogen/Creatinine [Mass ratio] 17 No Units Normal 10-20 [facility] Comment on above: Performed By: #### 2 [id number], [id number], [id number] #### [facility] [address] [place] [address] CHEMISTRYOrdered By: SYSTEM SYSTEM on 08-10-2022 Anion gap [Moles/Vol] 11 mmol/L Normal 6 - 16 mEq/L [facility] Calcium [Mass/Vol] 8.3 mg/dL Low 8.9 - 11. 1 mg/dL [facility] Chloride [Moles/Vol] 104 mmol/L Normal 101 - 1 11 mmol/L [facility] CO2 [Moles/Vol] 27 mmol/L Normal 21 - 31 mmol/L [facility] Cobalamin (Vitamin B12) [Mass/Vol] 279 pg/mL Normal 50 - 1500 pg/mL [facility] Creatinine [Mass/Vol] 0.7 mg/dL Normal 0.5 - 1.3 mg/dL [facility] GFR/1.73 sq M.predicted among blacks MDRD (S/P/Bld) [Vol rate/Area] mL/min/1.73 m2 Normal >=59mL/min/1.73 m2 [facility] Chem S GFR/1.73 sq M.predicted among non-blacks MDRD (S/P/Bld) [Vol rate/Area] mL/min/1.73 m2 Normal >=59mL/min/1.73 m2 [facility] Chem S Glucose [Mass/Vol] 95 mg/dL Normal 55 - 199 mg/dL [facility] Magnesium [Mass/Vol] 1.8 mg/dL Normal 1.3 - 2.4 mg/dL [facility] Potassium [Moles/Vol] 3.6 mmol/L Normal 3.5 - 5.3 mmol/L [facility] Remisol Sodium [Moles/Vol] 138 mmol/L Normal 135 - 145 mmol/L [facility] Remisol Urea nitrogen [Mass/Vol] 12 mg/dL Normal 5 - 21 mg/dL [facility] Remisol Urea nitrogen/Creatinine [Mass ratio] 17 mg/mg Normal 10 - 20 [facility] Remisol Consent for Treatmenton 07-29 Consent for Treatment [id number]:127 Normal Ari [facility] Gastroenterology Office/Clin ic Noteon 08-10-2022 Gastroenterology Office/Clinic Note Chief Complaint Right side back pain and heartburn. HPI Staff Patient is a 31 year old female here today for a sick call. Patient c/o worsening heartburn and right side back pain. Patient states that she ran out of omeprazole around May. She recently had gallbladder removed and took her last antibiotic last night for UTI. History of Present Illness Patient is a 31-year-old female who presents for further evaluation of acid reflux. Patient was previously evaluated 01/[address] Zaman and note indicated patient with epigastric pain and diarrhea. Patient also reported nausea and vomiting. Note also indicated patient had gallbladder ultrasound that showed cholelithiasis and was referred to general surgery for cholecystectomy consideration. Patient was previously ordered EGD which was completed 02/[address] Zaman and revealed normal esophagus, mild gastric erosions, normal duodenum, stomach biopsy revealed gastric mucosa with moderate chronic active gastritis, erosion, and hyperplastic regenerative changes, negative for intestinal metaplasia, no definitive H. pylori microorganisms. Is currently taking omeprazole 40mg daily and pepcid 20mg PRN. Review of record indicates patient had cholecystectomy 07/11/2022. During today's visit, patient reports she ran out of omeprazole in May, and explains pharmacy was trying to reach us however, review of record does not make note of this. She explains she is being treated for UTI and having right flank pain- patient to follow-up with her PCP regarding. She explains over the last 5 months, she has been experiencing belching, gas, and acid reflux that omeprazole was helping. She also reports she has to watch what she eats such spicy foods. Acid reflux is occurring 3 times a week currently. Is taking pepcid 20mg PRN. Patient had cholecystectomy 07/11/22 and reports she is no longer epigastric pain. Denies use of NSAIDs. Is having 1 formed BM daily. Denies black/bloody stools, fevers/chills, nausea/vomiting, and denies having any other GI complaints. Review of Systems PHQ Score Initial Depression Screen Score: 0 ROS - Provider Constitutional: no fever, no chills. Skin: no Jaundice. ENMT: Denies dysphagia. Yes acid reflux. Respiratory: no shortness of breath. Cardiovascular: no chest pain. Gastrointestinal: no nausea, no vomiting, no diarrhea, no GI bleeding. Physical Exam Vitals & Measurements T: 36.5 ?C(Temporal Artery) HR: 79(Peripheral) BP: 106/72 HT: 69 in HT: 175 cm WT: 133.3 kg WT: 293.26 lb BMI: 43.53 General: Well developed, well nourished, in no acute distress Head: Normocephalic/atrauma tic Lungs: Normal respiratory effort and clear to auscultation Cardio: Regular rate and rhythm, normal S1 and S2, no murmur, no rub Abdomen: Soft, non-distended, non-tender. Normoactive bowel sounds present in all 4 abdominal quadrants, bilaterally. Mental Status: Alert and oriented x3. Normal mood and affect Assessment/Plan 1. Acid reflux (K21.9: Gastro-esophageal reflux disease without esophagitis) Off/on gas, belching, and acid reflux over the last 5 months- improved with omeprazole 40mg daily- see HPI for details regarding. Previous EGD 02/[address] Zaman revealed normal esophagus, mild gastric erosions, normal duodenum, stomach biopsy revealed gastric mucosa with moderate chronic active gastritis, erosion, and hyperplastic regenerative changes, negative for intestinal metaplasia, no definitive H. pylori microorganisms. Review of record indicates patient had cholecystectomy 07/11/2022. Avoid NSAIDs. Continue omeprazole 40mg daily. Continue pepcid 20mg PRN. Ordered labs to evaluate renal function and vitamin deficiencies while on PPI long-term. Ordered: omeprazole, 40 mg = 1 cap(s), Oral, Daily, X 90 day(s), # 90 cap(s), Refills(s) 1, Pharmacy: [facility] #[id number], 175, cm, 08/10/22 12:49:00 EDT, Height/Length Dosing, 133.3, kg, 08/10/22 12:49:00 EDT, Weight Dosing Basic Metabolic Panel Magnesium Level Vitamin B12 Level 2. Gas pain (R14.1: Gas pain) Off/on gas, belching, and acid reflux over the last 5 months- improved with omeprazole 40mg daily- see HPI for details regarding. Previous EGD 02/[address] Zaman revealed normal esophagus, mild gastric erosions, normal duodenum, stomach biopsy revealed gastric mucosa with moderate chronic active gastritis, erosion, and hyperplastic regenerative changes, negative for intestinal metaplasia, no definitive H. pylori microorganisms. Review of record indicates patient had cholecystectomy 07/11/2022. Avoid NSAIDs. Continue omeprazole 40mg daily. Continue pepcid 20mg PRN. Ordered labs to evaluate renal function and vitamin deficiencies while on PPI long-term. 3. Gastritis (K29.70: Gastritis, unspecified, without bleeding) Previous EGD 02/[address] Zaman revealed normal esophagus, mild gastric erosions, normal duodenum, stomach biopsy revealed gastric mucosa with moderate chronic active gastritis, erosion, and hyperpl (more content not included)... Normal [facility] Comment on above: Result Comment: Elec tronically Signed By: Astrid MOSQUERA, Katrin Jenkins\.br\Date and Time Signed: 08/10/22 13:03 EDT Magnesiumon 08-10-2022 Magnesium [Mass/Vol] 1.8 mg/dL Normal 1.3-2.4 [facility] Comment on above: Performed By: #### 2 [id number], [id number], [id number] #### [facility] Laboratory [address] [place] [address] Patient Educationon 08-11-19 Patient Education Gastroenterology Gastroesophageal Reflux Disease, Adult Gastroesophageal reflux (DEEPAK) happens when acid from the stomach flows up into the tube that connects the mouth and the stomach (esophagus). Normally, food travels down the esophagus and stays in the stomach to be digested. However, when a person has DEEPAK, food and stomach acid sometimes move back up into the esophagus. If this becomes a more serious problem, the person may be diagnosed with a disease called gastroesophageal reflux disease (GERD). GERD occurs when the reflux: ? Happens often. ? Causes frequent or severe symptoms. ? Causes problems such as damage to the esophagus. When stomach acid comes in contact with the esophagus, the acid may cause soreness (inflammation) in the esophagus. Over time, GERD may create small holes (ulcers) in the lining of the esophagus. What are the causes? This condition is caused by a problem with the muscle between the esophagus and the stomach (lower esophageal sphincter, or LES). Normally, the LES muscle closes after food passes through the esophagus to the stomach. When the LES is weakened or abnormal, it does not close properly, and that allows food and stomach acid to go back up into the esophagus. The LES can be weakened by certain dietary substances, medicines, and medical conditions, including: ? Tobacco use. ? . ? Having a hiatal hernia. ? Alcohol use. ? Certain foods and beverages, such as coffee, chocolate, onions, and peppermint. What increases the risk? You are more likely to develop this condition if you: ? Have an increased body weight. ? Have a connective tissue disorder. ? Use NSAID medicines. What are the signs or symptoms? Symptoms of this condition include: ? Heartburn. ? Difficult or painful swallowing. ? The feeling of having a lump in the throat. ? A?bitter taste in the mouth. ? Bad breath. ? Having a large amount of saliva. ? Having an upset or bloated stomach. ? Belching. ? Chest pain. Different conditions can cause chest pain. Make sure you see your health care provider if you experience chest pain. ? Shortness of breath or wheezing. ? Ongoing (chronic) cough or a night-time cough. ? Wearing away of tooth enamel. ? Weight loss. How is this diagnosed? Your health care provider will take a medical history and perform a physical exam. To determine if you have mild or severe GERD, your health care provider may also monitor how you respond to treatment. You may also have tests, including: ? A test to examine your stomach and esophagus with a small camera (endoscopy). ? A test that?measures the acidity level in your esophagus. ? A test that?measures how much pressure is on your esophagus. ? A barium swallow or modified barium swallow test to show the shape, size, and functioning of your esophagus. How is this treated? The goal of treatment is to help relieve your symptoms and to prevent complications. Treatment for this condition may vary depending on how severe your symptoms are. Your health care provider may recommend: ? Changes to your diet. ? Medicine. ? Surgery. Follow these instructions at home: Eating and drinking ? Follow a diet as recommended by your health care provider. This may involve avoiding foods and drinks such as: ? Coffee and tea (with or without caffeine). ? Drinks that contain?alcohol. ? Energy drinks and sports drinks. ? Carbonated drinks or sodas. ? Chocolate and cocoa. ? Peppermint and mint flavorings. ? Garlic and onions. ? Horseradish. ? Spicy and acidic foods, including peppers, chili powder, rangel powder, vinegar, hot sauces, and barbecue sauce. ? Spencer fruit juices and citrus fruits, such as oranges, shirley, and limes. ? Tomato-based foods, such as red sauce, chili, salsa, and pizza with red sauce. ? Fried and fatty foods, such as donuts, chadian fries, potato chips, and high-fat dressings. ? High-fat meats, such as hot dogs and fatty cuts of red and white meats, such as rib eye steak, sausage, ham, and londono. ? High-fat dairy items, such as whole milk, butter, and cream cheese. ? Eat small, frequent meals instead of large meals. ? Avoid drinking large amounts of liquid with your meals. ? Avoid eating meals during the 2?3 hours before bedtime. ? Avoid lying down right after you eat. ? Do not exercise right after you eat. Lifestyle ? Do not use any products that contain nicotine or tobacco, such as cigarettes, e-cigarettes, and chewing tobacco. If you need help quitting, ask your health care provider. ? Try to reduce your stress by using methods such as yoga or meditation. If you need help reducing stress, ask your health care provider. ? If you are overweight, reduce your weight to an amount that is healthy for you. Ask your health care provider for guidance about a safe weight loss goal. General instruct (more content not included)... Normal [facility] Vit B12on 08-10-2022 Cobalamin (Vitamin B12) [Mass/Vol] 279 pg/mL Normal 50-1500 [facility] Comment on above: Performed By: #### [id number] ####[facility] [id number] [place] [address] eGFRon 08-10-2022 GFR/1.73 sq M.predicted among blacks MDRD (S/P/Bld) [Vol rate/Area] mL/min/{1.73_m2} Normal >=59 [facility] Comment on above: Order Comment: Order added by Discern Expert. Result Comment: eGFR is race adjusted. AA=. Performed By: #### [id number] #### [facility] [address] [place] [address] GFR/1.73 sq M.predicted among non-blacks MDRD (S/P/Bld) [Vol rate/Area] mL/min/{1.73_m2} Normal >=59 [facility] Comment on above: Order Comment: Order added by Discern Expert. Result Comment: Director Television michele kidney disease could be indicated at eGFR's of less than 60 mL/min/1.73m2. Kidney failure is indicated at less than 15 mL/min/1.73m2. Performed By: #### 2 [id number], [id number] #### [facility] Laboratory [address] [place] [address] Progress Note-Physicianon Progress Note-Physician Patient: BLANCA RUDOLPH Age: 31 years Sex: Female : 1990 Associated Diagnoses: None Author: Suresh XIONG, Brett Tripathi Postoperative Information Postoperative disposition: Postoperative disposition: To PACU. Optimetrix number Anesthetic utilized: General. Physical Examination Vital Signs 07/11/2022 12:13 EDT Systolic Blood Pressure 125 mmHg Diastolic Blood Pressure 79 mmHg Mean Arterial Pressure, Monitered 94 mmHg 07/11/2022 12:13 EDT Respiratory Rate 18 br/min 07/11/2022 11:03 EDT Heart Rate Monitored 61 bpm Heart Rate Monitored 61 bpm SpO2 100 % SpO2 100 % 07/11/2022 11:03 EDT Systolic Blood Pressure 125 mmHg Systolic Blood Pressure 125 mmHg Diastolic Blood Pressure 79 mmHg Diastolic Blood Pressure 79 mmHg Mean Arterial Pressure, Monitered 94 mmHg Mean Arterial Pressure, Monitered 94 mmHg 07/11/2022 11:03 EDT Respiratory Rate 16 br/min Respiratory Rate 16 br/min 07/11/2022 11:00 EDT Temperature Temporal Artery 36.9 DegC Heart Rate Monitored 74 bpm Respiratory Rate Monitored 26 br/min Systolic Blood Pressure 145 mmHg HI Diastolic Blood Pressure 82 mmHg Mean Arterial Pressure, Cuff 103 mmHg SpO2 93 % Pain Assessment: Pain Assessment 07/11/2022 11:00 EDT Primary Pain Location Abdomen upper Primary Pain Quality Aching Patient Preferred Pain Tool Numeric rating Numeric Pain Scale 5 = Moderate pain Numeric Pain Score 5 07/11/2022 10:24 EDT Primary Pain Location Abdomen upper Primary Pain Quality Aching Patient Preferred Pain Tool Numeric rating Numeric Pain Scale 7 Numeric Pain Score 7 . General: Awake, Alert, Appropriate. Respiratory: Adequate air exchange, Equal bilateral chest wall expansion. Cardiovascular: Stable. Neurological: At Baseline. Assessment Anesthetic outcome No anesthetic complications noted. Review / Management Condition: Stable. Plan Transfer/Discharge: Transfer/Discharge Discharge when meets criteria ( From PACU to Ambulatory Surgery Unit, and To home ). Normal [facility] Comment on above: Result Comment: Elec tronically Signed By: Suresh XIONG, Brett Brown.br\Date and Time Signed: 07/20/22 13:21 EDT Coding Summary.on 07-18-2022 Coding Summary. [id number] G h0bWw+PGhlYWQ+VY5RUUB eO90twMLgfR2rT0YUMTaA SywgQVBQTElOSyIgbmFtZ Y1qfCJpCFQd IC8+KR2pMSPpMtrxsHCno 2R0hDV8R61wwc5tNHluyO H0XMFiImGnzrqcd3ekgPx 6IDcuNmluOyBt WRBhtD90KDJ7nA60Jk37k EUngTKgd9jokSn0GbKvMP EhDJE6sLdfAOhrd3EgCUE dI73laSMdn0Q0 QHQzrLsqcMDtMeYccWE0w Q5uJVqccgccv5dcegkvEy m6eu60gAEli1C2kOI2N2V askI7KXKdyZFm FswxdANCzK2eckqww4jxr okbVcReQBYmRRh5YBa8DP WzuGcmCkMuYT82APC7LTW aacOmY2QgVYLc kLpcIzV5n8L2Vj3JX7NPV tdjC1WSGLQWSGsitLM+PC 77za36A3GkMaafVwr3GNW hGMQ0fMZ8bU5p BEXeKOmlj0I9fUQ5R9Uyw cIsth6kz1jnWMIyCYfaN6 5erKCwo6W1NEDiiRF1ERZ jrCnyLrFoxP11 Oyc+CYPayYvfa1IyGuxtk 2wof0pvvAx5FjowVCChju KlcOotMMF8n6NjAa2zMYT skEZ2hGA9vJ2g YpNmWwT2OUjpO886JiEwo NOaDejfR89oV4HueYV+PH YdCbi6MRKisOhoZK5aI8W hZGRpbmctbGVm gCujKN1jKQMscsmbSZJor C0iXMKsU8j3YfLsQsV3EI cbE7PzPYQorqxlIy88eS2 kWxZeLzV8BMpv F3XpeiC8JTFxbEWkINqcG DJ1R65ym4J4AQZdZMZbRX Q2qWX5oY8bxMrzpplrtAQ mdDsgdmVydGlj ECsuEBsoR057SELvkAgoI kNvZGluZyBEYXRlOiAgMD MvMjEvMjAyMzwvdGQ+PHR aZDD9aXjqJQWq tALoUZzzPy0qpCeszHteF K7hKPJetqpzGJIyjX3pKM MzqLRrsQmdFH4yAKOrxjh ip542UvYlEWK1 QXXhaNIyK5IzlI7oYoUdM BYjDPRrW8JavVJoHBbtI2 19EUpzLrS6SMZwbxCyK3P sLWFsaWduOiB0 k7V2Ec4Sl3CjmyhcI4Tkl VJlCzHgBwpwYRo6B3GbZk wvdHI+QN65PWJqQK42XAy 0EWX5aEvyXFsv IJTmY8YviE4yTuXhEQUxZ GRkOyc+PHRhYmxlIHdpZH RoPScxMDAlJyBzdHlsZT0 xKc8aACLrPQIm pSxpxKJjBzQgb2ypKNBhR YobVJ5glYvgW2JnqTN3FP Zod5z5Dz28I29lK8RiaHG +AAEecTP4qAG4 rD9jBzEuXrG9GDylK134F bLfqPPaFyyzs8msk3muxV p2DkK6PVLpbtRfqUmdPGU 4b8UqSa71D99s IHdpZHRoPSIxNSUiIHZhb Yxdwh7mgQ4lFh6+PGNvbC N2rSF3fV4zLbAuDzK8ERy zT776LkOnvYOb Grgjs8dbn4ygbTm0WqMoJ TQasxAhzMxkBDP7s5LuYs 84O3AjzOdgy4DySyo8rj0 8sHHat4F7qIG8 Z6YqGOYirowkkWKxiBhgV A0bCYXyfmzpHYRapG9xIA RpD5b0GeUxXlJ3YQqzG9O bowC4VZJfjHOj KBOmwBCAvU8hpzsbh7vtm sqaKlQuCRKqOYv2LRw6OT RmkVpiQlXsNPN5IrL0NTD 7bQMvdK9gdTnp dwivlK3jFan+QQB8vVIlz VWCEQ4nMpfisNC+PHRkIH K8bDquZPhpLTMxiG5zOTC bH0i7EpVbNkX4 RPusW1WhkqG9YIKluBPuR NRqrMANlI7arnvxy1xrfj ekLoNyAFYxFLk8WGx2DZV saWduOiBsZWZ0 QnI0MUZ6hVKynC2smFamy fbarA0kHbx+QmlydGggRG M7ZCe5U1MnAxh4JHUnjJt eCM8yvFBjTCcu Tw7chQjpcKshWW8tWUVlk pgsc650QhYur2shRQXxmX AgWJwcRBG7J95av3V6ZPF mJEUpBIZ5uYL0 sR2fhUpemyqnrECkgUqjj eJlyVzfNZzoWScqB588CU QujEieWxWfFTl4Q5XnTxq 9LGBnfOehIW4a sSTtULgzXm3peNhrdYffP V9iLQJhyegzi376JbMhs3 ubZJGovDQgGLftGUW4X95 yr7R4CPJpAARu KAV3aZY0kQ2dnHhkezeri GVmdDsgdmVydGljYWwtYW bxZ390QDFmeBuwAnMgeSt 4C4DrUof0RUQr jYryEV9cjKBwOQlxDk6vt BkuqGfsOO7yISCsthcmv5 05BoSfg8dvSLTkhBAvMKd sCXX1U15wc7T1 NFKzZCGeXVU6nQK9pD7pc GlnbjogbGVmdDsgdmVydG srFIplKIexT873FAXzkYk nPlBhdGllbnQg UDqzJXe4F4EmAgclrKN+P F87JFRgTX04dPPcoLWyk2 xiyMe6AvHrAQCjPPQ6aXc oVRnvs9UiNNCd X39wqIWyl1T3QBSaaFrpj RPrGqYmeSM0zL9eBXgtir roq1mhqbkdIyzkk7awlw9 9rS22X05wMKuz ZHRoPSIzMCUiIHZhbGlnb e7xeA8qPc8+FZDpyRR2kL B5fW4zRXEjTlX4OFyxX14 9InRvcCIvPjxj l0lhp2ihkFm1ZoJ8OMCgq mIpqBqyGKM7d8HwJf68X6 9sIHdpZHRoPSIyMCUiIHZ mbAdpsi3zqC4t Ii8+JKXghDR4kWP7yT1pX gGgUdL5MTvaI468QdSmlO JuDqxfF85nM6LcfZA+PHR vPji6VBFgoEzp VO2txSAbNXetEl5bXNQ8A eRuFsOzEDmwQ3HoXAZbrr atpjvscYH4NFOhZZLzyI2 2Xy1qeHqvGZBu lIZRoH7ffhpjs1barjcpQ qIsRMRdATs0OVr1EXQujP ywOgGpRCZ5VsB7MVN4tSC lmG1tzLchnoch vA4vP7CnCFGroyvnVu15g V4sHmDgIuM3CKsgBlh+R0 DEZ1oTEPWLGGJID3ZQIH6 8L9GhBdc7LAKt dQmzKN3mpFZrINspYw6uo DyunRfjMJ2qKLPphftbGI YwlU1cZYPocIYjlRdcGJ9 bFNMfiurjf567 ExVhWPX6PKZqtKYxJ9Oya Q3zNbKhXMNrLIRvJ4AgyE GaXJysD569SRkwImL9HLO wgwKuW2EmCNEv pFzkEmL0i7K0Ey5pRj2aQ N7jQOyjPV20QJ55kJEba7 H4mAA9X9ZaSMXqycaqsqf lwSS8MHDgCLIw sS34vXOxECceVz0bt5Y1n 655FQJjJGMlsM86Id0eiZ meLLMskGHTtD9nskiyh7p vcjogIzAwMDAw MKy3GZh4OLUbsJhtXoLaZ FW4UxH4RGB0dRUfkL7bpF ddxbfuyQ5hBvu+MzAgWWV dhrR7Y8OaPtw2 RYSpgDakZD0dnSHeWNohI b3tnLykgTpwNQ8xGKWapf faOQStcN7cTWHpoSQbeXh xOQ6mTELhtzqy b767CuAiNUX8VSViiTSaO 2RhcU3eRfRyWXGzTNYrK4 GbpJUpFNxyH390OUouWfR 3QXPykzKbP7La EMOjkIfnXsG5b6F6Cc3PH A1uuBU0J0PtUum9IXRukH nhQR9ngNXnOOitUq9ydOu czXezDM2dYSJd bnzfRESpzA9fHDGgmIPki WpaHJ9mPBZhjfuaa534Mc SoVNN6EOYxgGMqV5DsqM9 yOiAjMDAwMDAw Y9MuzBCzONpgN847GHosT rM8ZTXfvxNiA4JsBLIpgW utEnD1m6B3Im3FqQRzPHC tEM96KK39WB43 Q8BjAksdxSHciYM+PHRhY mxlIHdpZHRoPScxMDAlJy HomKxvUI8kSu6gTGZySQA vbGxhcHNlOiBj b8jcDYAwEBxoNB7gfGhmC 6LmaRP1YUGtu1k6Aq41G1 6xX9LfzDC+QYTfoQE0rIF 2gV9cVoGqRnE9 THfjF359InCehMGnDvldj 9doy2hafRg0FfCyONYtlv AabVdcBGA8t3MsNd42Y42 sIHdpZHRoPSIy OBYfJJDfjGdxhj5dkY1dR i8+BMXirWJ5hDB0gS5dSs YxVuO5XDziQ115LcHenCA pLgwgS83dL2Ii dXA+TMJvLzt1OWXjeXcpW Z0jhYZwKPekYm4yUOG4Jj ZjQuMoLDvmQ1InVWEcivc wnxxpgOF7HINh IVFmqA03Yc9elFzyAm6nT XIqDIF9BFOuyWQsP6DciF 5mTwRlSOKmFOAxF8KxfNJ pDYccZ045VYqc CjF5XWFdhsBaL5WtXHZhc AxiBoX3s5O7Is9IiGgitH WdKA5wOlAjJVn0N2HuWxu 2SRIvzBtyBI4x jZCaEHevRj3ppWihfRpbD V4oRKYtkjpxt396FrMbp0 bjZIAjoNDeIObqJOX6S32 uz9F5NZKzDLIr DMZ8lKN0bI3uoPqmmljse GVmdDsgdmVydGljYWwtYW xlM661CVMtbNegUoKAIfk 1I0YlDew8WIWp qBudCZ9tnOTvUBdzFx1ad TualYrnIZ0gHWIwckqam8 70KxXeb1tkQSUabXOeNXu cBTX2N90uf2S2 YDCgSNWzXCN2sVA1aF1wg GlnbjogbGVmdDsgdmVydG dfNVudMOioJ014WOHzxSb eNf5IXnm2R7Fu Fub2DIMntCygVV5kyXCoM NuoVs8vdGrisFjbGJ8rIU Kdjmvco833XlJyb1jbBYE wcHQgVGltZXM7 T74cr5A6AWUeCHElRYM7u GO2fW4obXjlwlthqABveQ drsfKauBhgLJcrMWblB98 6IHRvcDsnPlBh eWVyOjwvdGQ+IA99va00E 9BpFvlbYup8RYZmGHA9iE V4sB9tNJBtABqyb5W4oYX 7N3KcjlZmty0o b2xs (more content not included)... Normal [facility] General Surgery Office/Clini c Noteon 07-18-2022 General Surgery Office/Clinic Note Chief Complaint s/p lap arpita HPI Staff Blanca is a 31 y.o. female here for s/p Lap arpita done 07/12/22 History of Present Illness Blanca Rudolph is a 31-year-old female status post robotic assisted laparoscopic cholecystectomy for symptomatic cholelithiasis performed last 07/12/2022. She has been doing well from surgery with some slight muscle soreness, though otherwise no other issues. She is on Eliquis, which she is cleared to resume. Review of Systems PHQ Score Initial Depression Screen Score: 0 Constitutional: no fever, no sweats, no weight loss. Eyes: no glasses, no blurred vision, no visual loss. ENMT: no dentures, no hoarseness, no swallowing difficulties, no hearing loss, no ear infection (s), no nose bleeds. Cardiovascular: normal blood pressure, no chest pain, regular heartbeat, no heart murmur. Respiratory: no shortness of breath, no cough, no asthma, no wheezing. Gastrointestinal: no nausea, no vomiting, no diarrhea, no constipation, no blood in stool, no change in bowel habits, no abdominal pain, no hepatitis. Genitourinary: no kidney stones, no urine infection, no difficulty passing urine. Musculoskeletal: no pain, no weakness. Skin: no changing moles, no rash, no skin lumps. Neurologic: no seizures, no epilepsy, no headache. Psychiatric: no emotional, no psychiatric problem. Endocrine: no thyroid, no diabetes. Heme/Lymph: no bleeding problems, no anemia, no blood clots, no transfusions. Allergy/Immunologic: no swollen lymph nodes/glands, no IV drug abuse. Other: Additional ROS info: Except as noted in the above Review of Systems and in the History of Present Illness, all other systems have been reviewed and are negative or noncontributory. Physical Exam Vitals & Measurements HR: 68(Peripheral) RR: 16 BP: 122/78 HT: 69 in HT: 175 cm WT: 136 kg WT: 299.2 lb BMI: 44.41 General: No acute distress Respiratory: Unlabored breathing on room air Cardiac: Regular rate and rhythm Abdomen: Soft nontender nondistended Assessment/Plan The patient is a 31-year-old female with history of cholelithiasis status post robotic cholecystectomy performed on 07/12/2022. 1. Cholelithiasis (K80.20: Calculus of gallbladder without cholecystitis without obstruction) The patient may resume regular activity. She may continue her rivaroxaban therapy without interruption. She may follow up with us as needed. Documentation services were performed after patient or guardian consented to allow Bert Oropeza to record this visit. EMILEE site specialist and provider reviewed before signing. EMILEE: Yue Mcdonnell. Follow-up No qualifying data available Problem List/Past Medical History Ongoing ADD (attention deficit disorder) Allergic rhinitis Anxiety Back pain BMI 45.0-49.9, adult Calculus of gallbladder Cholelithiasis Depressive disorder Epigastric pain Hypertension Morbid obesity Nausea On rivaroxaban therapy Type II diabetes mellitus Historical Adult ADHD Procedure/Surgical History section, Cholecystectomy, Incision and drainage of hematoma, Tubal ligation. Medications Bentyl 10 mg Cap, 10 mg= 1 cap(s), Oral, QID, 11 refills FeroSul 325 mg oral tablet, 325 mg= 1 tab(s), Oral, Daily lisinopril, 10 mg, Oral, Daily Nexplanon, 68 mg, SubCutaneous omeprazole 40 mg Cap-DR, 40 mg= 1 cap(s), Oral, Daily, 2 refills, Not taking: see other has refills Pepcid 20 mg Tab, 20 mg= 1 tab(s), Oral, Daily, PRN Xarelto, 20 mg, Oral, qPM Allergies Keflex (Leg pain) Social History Alcohol - Denies Alcohol Use, 07/05/2022 Substance Abuse Current, Marijuana, Daily, 07/05/2022 Tobacco - Denies Tobacco Use, 07/05/2022 Former smoker, quit more than 30 days ago Tobacco Use:., 07/17/2022 Family History Crohn's disease: Aunt. Immunizations Vaccine Date Status Comments influenza virus vaccine, inactivated - Not Given Postpone due to refusal SARS-CoV-2 mRNA (toikeeran 5y-11y) vac - Not Given Postpone due to refusal influenza virus vaccine, inactivated - Not Given Patient Refuses diphtheria/pertussis, acel/tetanus adult 03/23/2020 Recorded influenza virus vaccine, inactivated 03/23/2020 Recorded diphtheria/pertussis, acel/tetanus adult 04/02/2019 Recorded influenza virus vaccine, inactivated 02/26/2019 Recorded influenza virus vaccine, inactivated 03/03/2010 Recorded human papillomavirus vaccine 07/27/2009 Recorded human papillomavirus vaccine 03/29/2009 Recorded diphtheria/pertussis, acel/tetanus adult 01/20/2009 Recorded meningococcal conjugate vaccine 01/20/2009 Recorded human papillomavirus vaccine 01/20/2009 Recorded influenza virus vaccine, inactivated 05/18/2008 Recorded measles/mumps/rubella virus vaccine 05/26/2004 Recorded influenza virus vaccine, inactivated 04/03/2003 Recorded DTaP, unspecified formulation 08/28/1996 Recorded hepatitis B pediatric vaccine 05/17/1995 Recorded hepatitis B pediatric vaccine 12/19/1994 R (more content not included)... [facility] Comment on above: Result Comment: Elec tronically Signed By: Hang XIONG, Miki Antunez\.br\Date and Time Signed: 07/18/22 14:00 EDT\.br\Electronically Co-Signed By: Yue Mcdonnell\.br\Date and Time Co-Signed: 07/17/22 12:40 EDT Consultation Noteon 07-18-19 Consultation Note [id number]#1 .00CD:127 [facility] IntraOperative Documentson 0 07-14-2022 IntraOperative Documents [id number]# 1.00CD:127 [facility] Coding Summary.on 07-13-2022 Coding Summary. CD:[id number] G h0bWw+PGhlYWQ+AZ2XEIU vP94nxOXmsU6oZ7CMKUuN SywgQVBQTElOSyIgbmFtZ Z3obBBcGHNw IC8+KV0lSTUzQfyzwYByk 9I6lOG3Y37qwz4zSXtgtA O7VHXiJtPxlgsqk9addFs 6IDcuNmluOyBt ZHLkoR50JIB1rR60Fj96b HJxtHIdu3vqbGw6OnTqFP BwIYT7xVocUJbjw2JqCFZ lJ56bkJRjg1C3 HULmxCyhhDWwXpTzvVD5c Q1kUTjvvquuw1olhkgbSk i5bh16tTJuj8H7uCI9W8L cyfJ1INKwaAGu YnnqySBPoJ5grqpqs0znf gzbOvJhNWKaXAf1GAi8LU YpvXtoUbHvCR86PLK3AZX biaQrR5GnLXUe lMhuPdB8s1F4Fo6XK9XJI bnaT5RWMCTDNDwfiCQ+PC 30xv20Z9LeGlgjFgn8YDZ uMPA1nON3iW5e RFFzITlxp5R7hRZ4D6Gdl iQvfb0pq2egSNYzTYjcH4 7mtEHap3J2UGTvrXR5REM ahMdqXxBmlL67 Oyc+XTDfjFuwz1BuAmhoj 4gui9ajdXa8YbjfGNZlpn HdrMvyHXW9o5BmWb1jPHM jlSJ2vQR3uI7j GgGuFkD0POimF922YsBir KFdOlqjZ97kK3TgtJY+PH SrSmh7VCFkmMxmSL0bV7R hZGRpbmctbGVm vLrqCK7qENTpmxwbTQGfs C3dPKMjK9v2XgHdZyV2SE upD7HmZOQfwpktWl39jD4 cKwWlTvR4EEae G5XhloD4PUIkgWMiNRmvY DG2S21tn7M4OPEgADClAD X8fZK8tE7zxCfdrmovmRY mdDsgdmVydGlj UGvpEWudG018OAIgnSzbR kNvZGluZyBEYXRlOiAgMD MvMTYvMjAyMzwvdGQ+PHR cZXN9mKmaNXZl bFHiIZlxWq0zpBkxpLgcQ C7wFNPytrbsPZDnnJ5mMM MghQAzbDhvDZ7bQJJnlfv gr572QtQuWQC3 GWAinNPaK7TfqH0qJdZtH EEkCAIoC2CsfZTgUDxuO5 11FSlpCpD2LTRhynUaR2G sLWFsaWduOiB0 k1M5It2Xr1SvovxsH1Cdh NIaRpLjYxdxRJc3C8KiBt wvdHI+RV11JTAyOF07USv 3EKF5mEktFAaf YMLqO9GmnZ7tClJuOPUrI GRkOyc+PHRhYmxlIHdpZH RoPScxMDAlJyBzdHlsZT0 iXu8vCJCsNEJs sEdimKTdLnOud7ykVHGvL JxhFZ5ubGayO2KffVY5SO Gfo1g0La32Y21vD1XkpSB +TRFkwPU1eIY7 tK8bGkEqLeF7UXdaV175Y pJfxQIdXgkec7jfh1adnR g9YiM9LONwqdCluIrmIAP 6c9NxRk01L02g IHdpZHRoPSIxNSUiIHZhb Uilqk3uwA4vKe5+PGNvbC Y2wLA1sJ9rOhIpJqZ8FCg mL512AgNwlPOk Pdrzg9tjp0rzuUh3NjWuU UNgznIhuTjaGAX9c4JdGz 36I0HywUrsk9GbLge0wd3 3lDRdp4U3zUO8 L8TrECJewgobnLEzsHjsY H5kXVNvidrzLFHyiE2kOY YrN5b0TpNeXzU5POxnM4P souN9MKFkqWVe SAAezJBMnX4ldnqhz7grx iloRjPcUZKyRDj5DBu1AQ VdhXkuPwWmNWD7ZwS3UTK 5gSBhpC0ioFab sirejR3bEcy+YDE1aSRik FZOYQ5zYamhhYL+PHRkIH Y5eArnWTkjCPKasA3uOEB xP5a0LpOdKpM6 SFtbY8MumaR7FXYhqJHmM HGwkGMNbB0lefivs1kvwv zpIdRaHOJtFRn3SOq3SEG saWduOiBsZWZ0 AxH6YQN1yBDmiV9inFtdy ykofA2cUmn+QmlydGggRG V0DFj5Q6SdDgc7AMNcdDe pWI7mqIRgURva By6wrXdbuWcdNE5fDKVwe vmst323KeUjt5mhAOFvgN ExDTeoEUF8N74ev4J3HCL pUTQlBEK9jJC5 sD0uqLlzggqsqGQtlMqel fPqyLlzZTgsUOnvW876WI FddGprViOhDPh9R4UoKil 3TYYgsNzhSV9o tRLwIEywZl5ocUlbpSdoR J7pWFZptovcy381AhTez0 rqRLAizZTtTUshOHG2R91 wy2Y5LKYnSUPu YXO2sDX3dU4wnGyhysvbq GVmdDsgdmVydGljYWwtYW uiR475FMMhoDefVvFpkRv 8X3NeAtv5XKDh jHvwDI9hgQAsSJvpUl5ci DhpfKmkOF4uQCVralbft8 13EdUox5vuDFTvlCRlQUz bIQY3S92bx0J5 JMLtMFFfROJ5uCJ4nL8kt GlnbjogbGVmdDsgdmVydG qeYPjjHXphU795LQQtuKi nPlBhdGllbnQg WZeiGGz1R9RcMtkiiSE+P Y32EKDdLK43qQVxrAHjl3 debGv0TbViUUJpOMS1dMh kDUtgz7VtXSYn I47ztGLjw4C7COYycMboe MGkSlGyeCD2aP7cCInxqx hsh3nmlqmbFtovy6mxwh4 6uF65T53rMAty ZHRoPSIzMCUiIHZhbGlnb r2hzP1bBm7+IEQdkQJ0uR Q3wW6bZSZtEaP1KDteO87 9InRvcCIvPjxj d0jxh5adeTw1OwS4CCQud mCcuBogFOV5a5PiKc68M5 9sIHdpZHRoPSIyMCUiIHZ mrWfazv6cqF9e Ii8+YDRkvWG3fUX1jF3oI lGwRbH0SCbaP451EgDuyO PcLuohQ42zE0SkxQB+PHR nZrc9YAMhdCgg YE8arZZtOWbbGc5uMEC6C hRdJsVaRQkdN5BsNRIngh wwtfnnoJG7IZXrBSBskX6 0Xu6cuRmaGIRr kANRyO6bqlymy9pmuufoL xHyNVQjCVg6KGs5BLKsuT eoSnRlCXC5LnH8KIQ5tZG zdD0ipSyuiufl tB6lX4XhBPNrnchzTh96i U5yJcWrIkN7SOnjTud+R0 JGI1hCDOZTGPPRK4AXGU1 1U8ShZpz2NWVb iDobHA7emKMnTChaSf3ku BrfwBavNH3xXXOzcwrmCP JncI0pBDFgpXEzwYbhNJ8 aDWLdglbtf206 SvKjRYH6XOFtbDHiK5Tim L5dRtHyDLVgJGJpZ9QvjP NtAFwxW673ZVrqIbR9NPG vgxSnP7TzDZSo nEtrEnK8s4K5Xz1xXx2fL U8qJOdjFE30NW24qAWxv3 H3yTN8P4YwWMAezeaclmj xhAL9IJOmECJe qE32kLCsLJbvMv9xb5Q9k 616PDBoDIPjrN76Qx9kcW huFWVtkNWPrQ6oumyrv5k vcjogIzAwMDAw XNt5WLa4JQUloHysOmIoK PN7RsW5LEP5fWSssR8scQ ghxhjdjP8mBsx+MzAgWWV sfdS9E5ZmJye5 YXFwcHmzLL4teWIkULfjT q1qsSdblNptXS9lKYMtmy fpEPPjpS1nJXIyaSLhkRq eVF9lFISfpnca x790WiHqBWL7TKZqiOFvR 7YysM8kOmRbEGTeDDRiD7 WlaJCyNLiwW415UMtjDeI 1QLWiinWdA9Qj LLLrzLteApD5b8Y2An8AD G4ooMY0Z6ApLfo8UMFzmO trWM2qfCJpIMmdRr9wzGa gpGyoDQ7fTBGz inanLOEhwH3bXTErrAAbn GhcVA5yIZGlnused401Vv OmTMU3XDZyyXOpW1XopJ2 yOiAjMDAwMDAw P5GerJRcNIyjE317PGzaF cT0CHYclaAbH0MyNNOipA foSxJ1a9N0Dl1TaGI2jPT 7t0K5K3QrhCDc QLD4AQL2spadsxk2F2HfW jwvdHI+YT97YXOnLY73uA SkaIZeq4qysEl7LaXvZPJ zDSE6eIisMAwt s3LlDPIpO12kzNPqt9F9B MLrgVfgiEWgZuPnaSW4uU 6mJKkaicgpv6gmfdnzHmb zy7vxqs15jP91 N26bOMmoOQYoEEToHTTlP IOnvChccp8myS9mTw4+PG AxrWT6zQO5aR9xXgRbPiJ 5FYfbO607YkKl fBFbUlaps6kud8xkfHs5T aFxJAQuxyZjiWaoHFP9u2 YaIv67P41zNJkxHSHiRII yMCUiIHZhbGln cs5ijD3oAn9+MW9wt7lxc u29lC66kIF+HBLuKKX2qH avJNanMAYpiJ0aBKbjKcZ 0BURaXxVqqH46 pATsBNwwXo2xmCzokZpwP P5nJPPzflloy157OpQne7 mcQJZlzIKeDSvySLZ8N66 vf8M6IWOfLTAh OPI8pBK1bW3npFzcphujn GVmdDsgdmVydGljYWwtYW lwS830LMDjaLgfIqJkbFA dL1qduoWASH1o OjwvdGQ+OGAeJPI3zYonK YcjKRXveB1oJKZwE2p1Dv DuSbR2YGvaQ5ZarqK0PWZ vbGQgMTBwdCBU pG9alazrj7crfylcVeNvB PVuRSm8GUl2HQFgkQkyGp WwQTG1WmE0KZV4xYAabZ9 iuBjoixlamB7u Oyc+RklOOjwvdGQ+PHRkI SU9cLabMOptZLDxnH7fRT RqT1k6ErWlDqE0LFcuQ7J sncQ8HRWdzOBv DFPttTFXzB7sejokf6dsq iyjAjMdKNNnDDe3GJs1PC HgjVtgUwKhFNY0JrG8YGA 5gNSbiB9wuYpa vdjinB5gDcq+TVJOOjwvd GQ+ICSyBVD5dUoxIFmnST IghJ5gEGRiF2b9KsVeJdU 8WZefM1AwawL5 OXGceNIwYVNcoMFDaZ0ut nrnf2hwrokaTxSwTWAzEE c4DHj3RSKtcPyeLfUaDUJ 5VuO6LMZ7kPFs wI0kjHnubkxiyI4zRjr+U SW4HYS5XB04BE70B7PmJw wvdGFibGU+PHRhYmxlIHd pZHRoPScxMDAl JyBz (more content not included)... Normal [facility] Main OR Intraoperative Recor don 07-13-2022 Main OR Intraoperative Record IntraOp Document Type FT Summary Primary Physician: Miki Mauricio MD Finalized Date/Time: 07/13/22 12:00:03 Pt. Name: BLANCA RUDOLPH/Sex: 1990 Female Med Rec #: [id number] Physician: Miki Mauricio MD Financial #: [id number] Pt. Type: A Room/Bed: Admit/Disch: 07/11/22 05:55:08 - 07/11/22 12:40:00 Institution: Case Times FT Entry 1 Patient Times In Room 07/11/22 08:00:00 Out Room 07/11/22 09:36:00 Procedure Times Start 07/11/22 08:25:00 Stop 07/11/22 09:29:00 Anesthesia Times Start 07/11/22 08:00:00 Stop 07/11/22 09:36:00 Last Modified By: Ollie BRADY, Kailey Wilson 07/11/22 09:36:03 General Comments: ROBOT DOCKED AT 0838, UNDOCKED AT 0917 ; SURGEON AT CONSOLE AT 0840, OUT OF CONSOLE AT 0914 -Annette CHAMPION RN 07/13/22 Chart opened to review and send charges [facility] Case Attendance FT Entry 1 Entry 2 Entry 3 Case Attendee Kiki Hatch CRNA, MD, Miki Champion RN, Kailey Wilson Role Performed DEPUTY [employer] Surgeon - Primary Senior Economist - Primary Time In 07/11/22 08:00:00 07/11/22 08:00:00 07/11/22 08:00:00 Time Out 07/11/22 09:36:00 07/11/22 09:19:00 07/11/22 09:36:00 Procedure CHOLECYSTECOMY ROBOT CHOLECYSTECOMY ROBOT CHOLECYSTECOMY ROBOT ASSISTED(.) ASSISTED(.) ASSISTED(.) Comments DR. PRATT SUPERVISING Last Modified By: Ollie BRADY, Kailey Champion RN, Kailey Champion RN, Kailey Wilson 07/11/22 Caridad Wilson 07/11/22 Caridad P 07/11/22 16:46:10 09:36:04 09:36:04 Entry 4 Entry 5 Case Attendee Cynthia Faustin CST, Liane E Role Performed Scrub - Primary STICKER HAND/SA Time In 07/11/22 08:00:00 07/11/22 08:00:00 Time Out 07/11/22 09:36:00 07/11/22 09:36:00 Procedure CHOLECYSTECOMY ROBOT CHOLECYSTECOMY ROBOT ASSISTED(.) ASSISTED(.) Comments Last Modified By: Noni Richardson CST, RN, Kailey 07/13/22 11:57:41 Caridad Wilson 07/11/22 09:36:04 Perioperative Protocols FT Pre-Care Text: Implements protective measures prior to operative or invasive procedure, confirms identity before the operative or invasive procedure, verifies operative procedure, surgical site, and laterality Entry 1 Procedure(s) CHOLECYSTECOMY ROBOT Patient Identity Birthday, Blood Band, ASSISTED(.) Verified (select at Patient Participation least 2): Consents / H and P Anesthesia Consent, Operative Site N/A Verified HandP, Surgery/Procedure Marking Verified Consent, Transfusion Consent Surgical Site Yes Laterality Verified n/a Verified Procedure Verified Yes Correct Patient Yes Position Verified Availability Equipment, Medication Prep Dry Yes Verified (If Applicable) PreOp Antibiotic Yes Time Out Hang XIONG, Miki Antunez, Given Participants Kiki Hatch CRNA, Ollie BRADY, Ramin Hatch Jennifer E, Dylan VEGA, Noni Haywood Time Out Complete 07/11/22 08:25:00 Outcomes Met? Yes Last Modified By: Kailey Champion RN 07/11/22 08:28:47 Post-Care Text: The patient is free from signs and symptoms of injury caused by extraneous objects Allergy Information FT Pre-Care Text: Verifies allergies Entry 1 Allergies Reviewed? Yes Allergies Reviewed Self/Patient With Outcomes Met? Yes Last Modified By: Kailey Champion RN 07/11/22 08:28:53 Post-Care Text: The patient received appropriate medication(s) safely administered during the perioperative period Surgical Procedures FT Entry 1 Procedure Description Procedure CHOLECYSTECOMY ROBOT Modifiers . ASSISTED Surgeon Description ROBOT ASSISTED LAPAROSCOPIC CHOLECYSTECOMY Primary Procedure Yes Primary Surgeon Miki Mauricio MD Start 07/11/22 08:25:00 Stop 07/11/22 09:29:00 Anesthesia Type General Surgical Service General Wound Class 2 - Clean-Contaminated Last Modified By: Kailey Champion RN 07/11/22 09:29:25 General Case Data FT Pre-Care Text: Classifies surgical wound, implements aseptic technique, initiates traffic control Entry 1 Case Information OR OR 6 FT Case Level Level 5 Wound Class 2 - Clean-Contaminated Specialty General ASA Class 2 Preop Diagnosis CHOLELITHIASIS Postop Same As Preop Yes Postop Diagnosis CHOLELITHIASIS Outcomes Met? Yes Last Modified By: Noni Richardson CST 07/13/22 11:59:55 Post-Care Text: The patient is free from signs and symptoms of infection Skin Assessment (Pre Procedure) FT Pre-Care Text: Implements protective measures to prevent skin/ tissue injury due to thermal or mechanical sources Evaluates for signs and symptoms of physical injury to skin and tissue Entry 1 Skin Integrity Intact, [place], Warm, and Skin Abnormality No Dry Outcomes Met? Yes Last Modified By: Ollie BRADY, Kailey Caridad Steve 07/11/22 08:29:36 Post-Care Text: The patient is free from signs and symptoms of injury caused by extraneous objects Patient Positioning FT Pre-Care Text: Identifies physical alterations that require additional precautions for procedure-specific p (more content not included)... Normal [facility] Consent for Anesthesiaon Consent for Anesthesia [id number]# 1.00CD:127 [facility] Discharge Instructionson Discharge Instructions [id number]# 1.00CD:127 [facility] IntraOperative Documentson 0 07-12-2022 IntraOperative Documents [id number]# 1.00CD:127 [facility] Preoperative Documentson Preoperative Documents [id number]# 1.00CD:127 [facility] CHEMISTRYOrdered By: Lab ROP User on 07-11-2022 Glucose [Mass/Vol] 82 mg/dL Normal 55 - 99 mg/dL [facility] C POC Subsection Comment on above: Result Comment: Erin nida Meter POC Device SN [id number] Invalid Interpretation Code [facility] POC Subsection POC User ID [id number] Invalid Interpretation Code [facility] POC Subsection POC Username CHRISTOPHER PANCHAL Invalid Interpretation Code [facility] POC Subsection Capillary Glucose POCon 06-28 Glucose [Mass/Vol] 82 mg/dL Normal 55-99 [facility] Comment on above: Result Comment: Erin nida Meter Performed By: #### 2 [id number] ####[facility] [address] [place] [address] Consent for Treatmenton 06-28 Consent for Treatment [id number] .[id number]:127 Normal [facility] Inpatient Patient Summaryon 07-11-2022 Inpatient Patient Summary [address] [facility] Clinical Discharge Instructions PERSON INFORMATION Name: BLANCA RUDOLPH PHYSICIANS Admitting Physician: Miki Mauricio MD Attending Physician: Miki Mauricio MD PCP: BILLY ZELAYA PA-C Discharge Diagnosis: Comment: PATIENT EDUCATION INFORMATION Instructions: Post Op Patient Instructions - FT (CUSTOM); Laparoscopic Cholecystectomy, Care After Medication Leaflets: Follow up: With: Address: When: Miki Mauricio [address] [place] [address], [place] [address], [place] [id number] [phone] Business (1) Comments: Appointment has already been scheduled Type Location Start [facility] Post Op 15 [facility] 07/17/2022 11:40 AM 07/17/2022 12:00 PM Confirmed MEDICATION LIST New Medications [facility][id number] [place], [place] [id number], [phone] acetaminophen-hydroco done ([place] 325 mg-5 mg oral tablet) 1 Tablets By Mouth every 6 hours as needed as needed for pain. Refills: 0. Medications to Continue Taking That Have Changed Other Medications START: etonogestrel (Nexplanon) 68 Milligram Subcutaneous. in pts right arm. Medications to Continue with No Changes Other Medications dicyclomine (Bentyl 10 mg Cap) 1 Capsules By Mouth 4 times a day for 30 Days. Refills: 11. famotidine (Pepcid 20 mg Tab) 1 Tablets By Mouth every day as needed Control of stomach acid. ferrous sulfate (FeroSul 325 mg oral tablet) 1 Tablets By Mouth every day. lisinopril 10 Milligram By Mouth every day. omeprazole (omeprazole 40 mg Cap-DR) 1 Capsules By Mouth every day. Refills: 2. rivaroxaban (Xarelto) 20 Milligram By Mouth once a day (in the evening). Comment: Miguel Ángel Ari [facility] Main OR PACU I Recordon 06-28 Main OR PACU I Record PACU Phase I Document Type FT Summary Primary Physician: Miki Mauricio MD Finalized Date/Time: 07/11/22 11:23:02 Pt. Name: RONNI BLANCAEVIN Borden/Sex: 1990 Female Med Rec #: [id number] Physician: Miki Mauricio MD Financial #: [id number] Pt. Type: A Room/Bed: [place] [address] Admit/Disch: 07/11/22 05:55:08 - Institution: Case Times PACU I FT Pre-Care Text: Identifies barriers to communication and implements measures to provide psychological support Develops individualized plan of care, and ensures continuity of care Maintains patient's dignity and privacy, and maintains patient confidentiality Identifies and reports philosophical, cultural, and spiritual beliefs and values Identifies individual values and wishes concerning care Implements aseptic technique, and administers prescribed antibiotic therapy and immunizing agents as ordered Evaluates postoperative tissue perfusion Implements thermoregulation measures, and monitors body temperature Evaluates postoperative respiratory status Evaluates postoperative cardiac status Evaluates postoperative neurological status Assesses pain control, collaborated in initiating patient-controlled analgesia and implements alternative methods of pain control Verifies allergies, administers prescribed medications and solutions, evaluates response to medications Entry 1 In PACU I 07/11/22 09:37:00 Discharge from PACU 07/11/22 11:00:00 I Outcomes Met? Yes Last Modified By: Connie Calhoun RN 07/11/22 11:22:29 Post-Care Text: The patient demonstrates knowledge of the expected response to the operative or invasive procedure The patient's care is consistent with the individualized perioperative plan of care The patient's right to privacy is maintained The patient's value system, lifestyle, ethnicity, and culture are considered, respected, and incorporated into the perioperative plan of care The patient participates in decisions affecting his or her perioperative plan of care The patient is free from signs and symptoms of infection The patient has wound/tissue perfusion consistent with or improved from baseline levels established preoperatively The patient is at or returning to normothermia at the conclusion of the immediate postoperative period The patient's respiratory function is consistent with or improved from baseline levels established preoperatively The patient's cardiovascular status is consistent with or improved from baseline levels established preoperatively The patient's cardiovascular status is consistent with or improved from baseline levels established preoperatively The patient demonstrates and/or reports adequate pain control throughout the perioperative period The patient received appropriate medication(s), safely administered during the perioperative period Acuity Level PACU I FT Entry 1 Start Time 07/11/22 09:37:00 Stop Time 07/11/22 11:00:00 Acuity Level Acuity Level I Last Modified By: Connie Calhoun RN 07/11/22 11:22:56 Finalized By: Connie Calhoun RN Document Signatures Signed By: Connie Calhoun RN 07/11/22 11:23 Normal [facility] Main OR Preoperative Recordo n 07-11-2022 Main OR Preoperative Record PreOp Document Type FT Summary Primary Physician: Miki Mauricio MD Finalized Date/Time: 07/11/22 08:42:06 Pt. Name: BLANCA RUDOLPH/Sex: 1990 Female Med Rec #: [id number] Physician: Miki Mauricio MD Financial #: [id number] Pt. Type: A Room/Bed: [place] [address] Admit/Disch: 07/11/22 05:55:08 - Institution: Case Times PreOp FT Pre-Care Text: Verifies consent for planned procedure, identifies individual values and wishes concerning care, includes family members in perioperative teaching Entry 1 Patient Times. In Pre Surgery 07/11/22 06:05:00 Out Pre Surgery 07/11/22 07:58:00 Outcomes Met? Yes Last Modified By: Kailey Champion RN 07/11/22 08:42:05 Post-Care Text: The patient participates in decisions affecting his or her perioperative plan of care Finalized By: Kailey Champion RN Document Signatures Signed By: Kailey Champion RN 07/11/22 08:42 Normal [facility] Monitor Recordon 07-11-2022 Monitor Record [id number] 1.00CD:127 Normal [facility] Monitor Record [id number]# 1.00CD:127 Normal [facility] Operative Reporton Operative Report Indication for Surgery 31-year-old female symptomatic cholelithiasis here today for robotic cholecystectomy Preoperative Diagnosis CHOLELITHIASIS Postoperative Diagnosis CHOLELITHIASIS Operation CHOLECYSTECOMY ROBOT ASSISTED, ROBOT ASSISTED LAPAROSCOPIC CHOLECYSTECOMY, . Surgeon(s) Hang XIONG, Miki Antunez (Surgeon - Primary) Bulb Inspector Andreia Richardson Anesthesia General Suresh XIONG, Brett Tripathi (Water Sander) Kiki Hatch CRNA (Other) Estimated Blood Loss Minimal Urine Output Void prior to OR Findings Gallbladder with stones Specimen(s) Pathology Tissue Exam (Gallbladder,AP Specimen) Complications None Technique Informed consent: Written Position: Supine Perioperative antibiotics given within 60 minutes of incision: yes Time Out performed: yes Anesthesia: General ETT Prep and Drape: Sterile fashion Hair Clipped: No Abdominal Access:Veress Needle, Optiview 5mm trocar at philippe's point Port placement: 8mm robotic trocars 20cm from costal margin in left lower quadrant, left paramedian, right paramedian, right lower quadrant Robot Docked: yes Instruments: Prograsp, 30 degree robotic camera, forced bipolar, robotic monopolar scissors Firefly use to identify biliary structures: yes Cystic duct identified and circumferentially dissected: yes Cystic artery identified and circumferentially dissected:yes Critical view of safety: yes Division of cystic duct: 2 clips proximal, one distal, divided with scissors Division of cystic artery: one clip proximal, distally divided with cautery Gallbladder dissected off cystic plate: yes Gallbladder placed in Endo Catch bag: yes Gallbladder removed from field: Yes Spillage of contents: no Irrigation: no Ports removed and abdomen desufflated: Yes Skin closure: 4-0 monocryl, subcuticular fashion Dressing: skin glue Correct counts:yes, x2 Patient tolerated the procedure: yes Normal [facility] Comment on above: Result Comment: Elec tronically Signed By: Hang XINOG, Miki Antunez\.br\Date and Time Signed: 07/11/22 09:43 EDT Outpatient Surgery Discharge Instructionon 07-11-2022 Outpatient Surgery Discharge Instruction [place] [id number] Patient Discharge Instructions PERSON INFORMATION Name: BLANCA RUDOLPH Date of : 1990 Current Date: 07/11/2022 09:54:17 PHYSICIANS Admitting Physician: Miki Mauricio MD Discharge Diagnosis: BLANCA RUDOLPH has been given the following list of follow-up instructions, prescriptions, and patient education materials: PATIENT FOLLOW-UP INFORMATION Diet: Regular Discharge Activity: Resume normal activities in 24 hours, Expect mild pain, Expect minimal amount of drainage and/or bleeding Discharge Restrictions: No driving for 24 hrs, Do not make important decisions for 24 hours, Do not drink alcoholic beverages for 24 hours Call Your Doctor For: Persistent or heavy bleeding, Temperature above 101.5 degrees, Redness, swelling, or pus at operative site, Severe pain at the operative site, Persistent vomiting Additional Instructions: Okay to shower tomorrow do not submerge incision underwater in pool or tub for 2 weeks after surgery no heavy lifting pushing pulling greater than 35 pounds for 1 week after surgery IF UNABLE TO CONTACT YOUR PHYSICIAN AND YOU FEEL IT IS AN EMERGENCY, GO TO THE NEAREST EMERGENCY ROOM OR CALL 911 I, BLANCA RUDOLPH, have received the attached patient education materials/instruction s and have verbalized understanding: May we do a follow up call? Yes No I was present when discharge instructions were given Patient Signature Date Clinican/Nurse Signature Date Follow up: With: Address: When: Miki Mauricio [address] [place], [place] [address], [place] [address], [address] [phone] Business (1) Comments: Appointment has already been scheduled Type Location Start [place] Post Op 15 [facility] [place] 07/17/2022 11:40 AM 07/17/2022 12:00 PM Confirmed Pharmacy Information: You may receive a survey from [facility]ight[facility] asking you to rate your care experience. Your feedback is important and will help us understand what we do well and how we can improve the quality of care we provide to you, your loved ones and our community. It?s an honor to serve you. Thank you for choosing [facility] HERE ARE THE MEDICATION CHANGES THAT OCCURRED DURING YOUR HOSPITAL STAY New Medications [id number], [address] [place], [place] [id number], [phone] acetaminophen-hydroco done ([place] 325 mg-5 mg oral tablet) 1 Tablets By Mouth every 6 hours as needed as needed for pain. Refills: 0. Medications to Continue Taking That Have Changed Other Medications START: etonogestrel (Nexplanon) 68 Milligram Subcutaneous. in pts right arm. Medications to Continue with No Changes Other Medications dicyclomine (Bentyl 10 mg Cap) 1 Capsules By Mouth 4 times a day for 30 Days. Refills: 11. famotidine (Pepcid 20 mg Tab) 1 Tablets By Mouth every day as needed Control of stomach acid. ferrous sulfate (FeroSul 325 mg oral tablet) 1 Tablets By Mouth every day. lisinopril 10 Milligram By Mouth every day. omeprazole (omeprazole 40 mg Cap-DR) 1 Capsules By Mouth every day. Refills: 2. rivaroxaban (Xarelto) 20 Milligram By Mouth once a day (in the evening). PATIENT EDUCATION INFORMATION Instructions: Laparoscopic Cholecystectomy, Care After This sheet gives you information about how to care for yourself after your procedure. Your health care provider may also give you more specific instructions. If you have problems or questions, contact your health care provider. What can I expect after the procedure? After the procedure, it is common to have: ? Pain at your incision sites. You will be given medicines to control this pain. ? Mild nausea or vomiting. ? Bloating and possible shoulder pain from the air-like gas that was used during the procedure. Follow these instructions at home: Incision care ? Follow instructions from your health care provider about how to take care of your incisions. Make sure you: ? Wash your hands with soap and water before you change your bandage (dressing). If soap and water are not available, use hand control room supervisor. ? Change your dressing as told by your health care provider. ? Leave stitches (sutures), skin glue, or adhesive strips in place. These skin closures may need to be in place for 2 weeks or longer. If adhesive strip edges start to loosen and curl up, you may trim the loose edges. Do not remove adhesive strips completely unless your health care provider tells you to do that. ? Do not take baths, swim, or use a hot tub unti (more content not included)... Normal [facility] Patient Education - Texton 0 07-11-2022 Patient Education - Text Gastroenterology Laparoscopic Cholecystectomy, Care After This sheet gives you information about how to care for yourself after your procedure. Your health care provider may also give you more specific instructions. If you have problems or questions, contact your health care provider. What can I expect after the procedure? After the procedure, it is common to have: ? Pain at your incision sites. You will be given medicines to control this pain. ? Mild nausea or vomiting. ? Bloating and possible shoulder pain from the air-like gas that was used during the procedure. Follow these instructions at home: Incision care ? Follow instructions from your health care provider about how to take care of your incisions. Make sure you: ? Wash your hands with soap and water before you change your bandage (dressing). If soap and water are not available, use hand control room supervisor. ? Change your dressing as told by your health care provider. ? Leave stitches (sutures), skin glue, or adhesive strips in place. These skin closures may need to be in place for 2 weeks or longer. If adhesive strip edges start to loosen and curl up, you may trim the loose edges. Do not remove adhesive strips completely unless your health care provider tells you to do that. ? Do not take baths, swim, or use a hot tub until your health care provider approves. Ask your health care provider if you can take showers. You may only be allowed to take sponge baths for bathing. ? Check your incision area every day for signs of infection. Check for: ? More redness, swelling, or pain. ? More fluid or blood. ? Warmth. ? Pus or a bad smell. Activity ? Do not drive or use heavy machinery while taking prescription pain medicine. ? Do not lift anything that is heavier than 10 lb (4.5 kg) until your health care provider approves. ? Do not play contact sports until your health care provider approves. ? Do not drive for 24 hours if you were given a medicine to help you relax (sedative). ? Rest as needed. Do not return to work or school until your health care provider approves. General instructions ? Take uiga-fey-dncjiew and prescription medicines only as told by your health care provider. ? To prevent or treat constipation while you are taking prescription pain medicine, your health care provider may recommend that you: ? Drink enough fluid to keep your urine clear or pale yellow. ? Take zpvc-twz-zvjejfz or prescription medicines. ? Eat foods that are high in fiber, such as fresh fruits and vegetables, whole grains, and beans. ? Limit foods that are high in fat and processed sugars, such as fried and sweet foods. Contact a health care provider if: ? You develop a rash. ? You have more redness, swelling, or pain around your incisions. ? You have more fluid or blood coming from your incisions. ? Your incisions feel warm to the touch. ? You have pus or a bad smell coming from your incisions. ? You have a fever. ? One or more of your incisions breaks open. Get help right away if: ? You have trouble breathing. ? You have chest pain. ? You have increasing pain in your shoulders. ? You faint or feel dizzy when you stand. ? You have severe pain in your abdomen. ? You have nausea or vomiting that lasts for more than one day. ? You have leg pain. This information is not intended to replace advice given to you by your health care provider. Make sure you discuss any questions you have with your health care provider. Document Released: 04/16/2006 Document Revised: 03/29/2018 Document Reviewed: 10/02/2016 [employer] Patient Education ? 2019 [employer]. [facility] Progress Note-Physicianon Progress Note-Physician Patient: BLANCA RUDOLPH Age: 31 years Sex: Female : 1990 Associated Diagnoses: None Author: Suresh XIONG, Brett Tripathi Preoperative Information Anesthesia Preop Info: Time patient last ate or drank 07/10/2022 23:00:00. Anesthesia history: Patient history: None. Family history+: None. Informed consent: Signed by patient. Review of Systems Eye: Negative. Ear/Nose/Mouth/Throat : Negative. Respiratory: Negative. Cardiovascular: Negative. Gastrointestinal: Negative. Genitourinary: Negative. Hematology/Lymphatics : Negative. Endocrine: Negative. Musculoskeletal: Negative. Neurologic: Negative. Health Status Allergies: Allergies (1) Active Reaction Keflex Leg pain Current medications: Home Medications (7) Active Bentyl 10 mg Cap 10 mg = 1 cap(s), Oral, QID FeroSul 325 mg oral tablet 325 mg = 1 tab(s), Oral, Daily lisinopril 10 mg, Oral, Daily Nexplanon 68 mg, SubCutaneous omeprazole 40 mg Cap-DR 40 mg = 1 cap(s), Oral, Daily Pepcid 20 mg Tab 20 mg = 1 tab(s), PRN, Oral, Daily Xarelto 20 mg, Oral, qPM , Medications (2) Active Scheduled: (1) clindamycin 900 mg/50 mL-D5W + Dextrose 5% Premix Diluent 50 mL 900 mg 50 mL, IV Piggyback, PREOP Continuous: (1) Lactated Ringers 1,000 mL 1,000 mL, IV, 150 mL/hr PRN: (0) Problem list: All Problems ADD (attention deficit disorder) / SNOMED CT 99516509 / Confirmed Allergic rhinitis / SNOMED CT 608942948 / Confirmed Anemia / SNOMED CT 527117475 / Confirmed Anxiety / SNOMED CT 88260917 / Confirmed Back pain / SNOMED CT 141373820 / Confirmed BMI 45.0-49.9, adult / SNOMED CT 6330732788 / Confirmed Calculus of gallbladder / SNOMED CT 976486367 / Confirmed Cholelithiasis / SNOMED CT 097109807 / Confirmed Depressive disorder / SNOMED CT 67937506 / Confirmed Epigastric pain / SNOMED CT 301989755 / Confirmed Hypertension / SNOMED CT 8141408054 / Confirmed Morbid obesity / SNOMED CT 206591876 / Confirmed Nausea / SNOMED CT 6296098015 / Confirmed On rivaroxaban therapy / SNOMED CT 759771987 / Confirmed Pulmonary embolism x2 / SNOMED CT 64121280 / Confirmed Type II diabetes mellitus / SNOMED CT 204952230 / Confirmed, Active Problems (16) ADD (attention deficit disorder) Allergic rhinitis Anemia Anxiety Back pain BMI 45.0-49.9, adult Calculus of gallbladder Cholelithiasis Depressive disorder Epigastric pain Hypertension Morbid obesity Nausea On rivaroxaban therapy Pulmonary embolism x2 Type II diabetes mellitus Histories Social History Social & Psychosocial Habits Alcohol 07/05/2022 Risk Assessment: Denies Alcohol Use Substance Abuse 07/05/2022 Use: Current Type: Marijuana Frequency: Daily Tobacco 02/16/2022 Tobacco Use: Former smoker, quit more 07/05/2022 Risk Assessment: Denies Tobacco Use . Physical Examination Vital Signs 07/11/2022 7:00 EDT Apical Heart Rate 72 bpm 07/11/2022 6:11 EDT Heart Rate Monitored 75 bpm Systolic Blood Pressure 128 mmHg Diastolic Blood Pressure 85 mmHg Mean Arterial Pressure, Monitered 99 mmHg 07/11/2022 6:10 EDT Heart Rate Monitored 69 bpm SpO2 99 % 07/11/2022 6:09 EDT Respiratory Rate 18 br/min 07/11/2022 6:09 EDT Temperature Oral 36.7 DegC 07/11/2022 6:09 EDT Systolic Blood Pressure 111 mmHg Diastolic Blood Pressure 74 mmHg Mean Arterial Pressure, Monitered 86 mmHg Airway: Mallampati classification: II (soft palate, fauces, uvula visible). Distance: Thyromental, Adequate. Respiratory: Lungs are clear to auscultation, Symmetrical chest wall expansion. Cardiovascular: Regular rhythm, Good pulses equal in all extremities. Gastrointestinal: Soft, Non-tender. Plan [place] [employer]esthesi[employer] (ASA) physical status classification: Class III. Anesthetic Preoperative Plan: Anesthesia General. Normal [facility] Comment on above: Result Comment: Elec tronically Signed By: Suresh XIONG, Brett Brown.br\Date and Time Signed: 07/11/22 07:47 EDT Consultation Noteon 07-10-19 Consultation Note [id number] .00CD:127 Normal [facility] Physician Referralon 023 Physician Referral [id number] .00CD:127 Normal [facility] BUNon 07-05-2022 Urea nitrogen [Mass/Vol] 9 mg/dL Normal 5-21 [facility] Comment on above: Performed By: #### 1 [id number], 1896024, 3742144, 7814908, 3277058, 5502852 ####[facility] [address] [place] [address] CBC w/Indiceson 07-05-2022 Erythrocyte distribution width (RBC) [Ratio] 12.9 % Normal 10.9-14.2 [facility] Comment on above: Performed By: #### 1 [id number], 7299054, 5752866, 0781496, 9104153, 6070486 ####[facility] [address] [place] [address] Hematocrit (Bld) [Volume fraction] 41.9 % Normal 34.0-46.0 [facility] Comment on above: Performed By: #### 1 8043463, 7327125, 0349948, 3450965, 9804716, 2012569 ####[facility] [address] [place] [address] Hemoglobin (Bld) [Mass/Vol] 14.3 g/dL Normal 12.0-16.0 [facility] Comment on above: Performed By: #### 1 [id number], 1850151, 2794560, 2538487, 6798986, 7333781 ####[facility] [address] [place] [address] MCH (RBC) [Entitic mass] 31.7 pg Normal 27.0-34.0 [facility] Comment on above: Performed By: #### 1 7529969, 3355775, 1395368, 6198652, 3127082, 6974470 ####[place] [address] [place] [address] MCHC (RBC) [Mass/Vol] 34.2 g/dL Normal 31.4-36.0 [facility] Comment on above: Performed By: #### 1 5537279, 7679303, 6005467, 2977313, 5617295, 4935805 ####[address] [address] MCV (RBC) [Entitic vol] 92.8 fL Normal 80.0-100.0 [facility] Comment on above: Performed By: #### 1 5451879, 5950638, 2154045, 2647751, 4792798, 8137308 ####[address] [address] Platelet mean volume (Bld) [Entitic vol] 7.7 fL Normal 6.4-10.8 [facility] Comment on above: Performed By: #### 1 8372584, 8820229, 9780213, 2766093, 9037142, 3644155 ####[address] [address] Platelets (Bld) [#/Vol] 232.0 E9/L Normal 150.0-500.0 [facility] Comment on above: Performed By: #### 1 9736075, 3341621, 3762635, 0517653, 1017263, 0183050 ####[place] [address] [place] [address] RBC (Bld) [#/Vol] 4.5 E12/L Normal 4.3-5.9 [facility] Comment on above: Performed By: #### 1 [id number], 8330693, 4091879, 9228674, 0160081, 4061897 ####[facility] [address] [place] [address] WBC corrected for nucl RBC Auto (Bld) [#/Vol] 4.9 E9/L Normal 4.0-11.0 [facility] [place] Comment on above: Performed By: #### 1 [id number], [id number], [id number], [id number], [id number] ####[facility] [place] [address] [place] [address] Consent for Procedure/Surger yon 07-05-2022 Consent for Procedure/Surgery [id number]:127 Normal [facility] [place] Consent for Treatmenton Consent for Treatment [id number]:127 Normal [facility] [place] Creatinineon 07-05-2022 Creatinine [Mass/Vol] 0.7 mg/dL Normal 0.5-1.3 [facility] [place] Comment on above: Performed By: #### 1 [id number], [id number], [id number], [id number], [id number] ####[facility] [place] [address] [place] [address] Glucoseon 07-05-2022 Glucose [Mass/Vol] 84 mg/dL Normal 55-199 [facility] [place] Comment on above: Performed By: #### 1 [id number], [id number], [id number], [id number], 1675910, [id number] ####[facility] [place] [address] [place] [address] Lyteson 07-05-2022 Anion gap [Moles/Vol] 9 mmol/L Normal 6-16 [facility] [place] Comment on above: Performed By: #### 1 [id number], [id number], 8820715, 4260751, [id number], [id number] ####[facility] [place] [address] [place] [address] Chloride [Moles/Vol] 106 mmol/L Normal 101-111 [facility] Comment on above: Performed By: #### 1 [id number], [id number], 4041502, 3299704, 3063085, [id number] ####[facility] [place] [address] [place] [address] CO2 [Moles/Vol] 26 mmol/L Normal 21-31 [facility] Comment on above: Performed By: #### 1 [id number], [id number], [id number], 6678588, 7049334, 8508284 ####[facility] [place] [address] [place] [address] Potassium [Moles/Vol] 4.2 mmol/L Normal 3.5-5.3 [facility] [place] Comment on above: Performed By: #### 1 [id number], [id number], 6049317, 8403164, 9253966, [id number] ####[facility] [place] [address] [place] [address] Sodium [Moles/Vol] 137 mmol/L Normal 135-145 [facility] [place] Comment on above: Performed By: #### 1 [id number], [id number], 0718044, 5450370, 4310267, [id number] ####[facility] [place] [address] [place] [address] XR Chest 2 Viewson 3 XR Chest 2 Views Exam Date/Time: 07/05/2022 13:25 EST Reason for Exam: P.A.T. Report IMPRESSION: NO RADIOGRAPHIC EVIDENCE OF ACTIVE DISEASE IN THE CHEST. CLINICAL INFORMATION: P.A.T. COMPARISON: None available. FINDINGS: Two views of the chest were obtained. Heart and mediastinum appear normal. The lungs appear clear. Visualized bony thorax and remainder of the chest appears unremarkable. Ordering Provider: Issa Franklin FINAL REPORT Dictated: 07/05/2022 2:05 pm Salas Deluna MD Signed (Electronic Signature): 07/05/2022 2:05 pm Signed by: Salas Deluna MD Transcribed by: FREDRICK Technologist: TOM Technical Comments Radiation Dose: Ka,r in mGy = 0 DAP = 0 Normal [facility] [place] eGFRon 07-05-2022 GFR/1.73 sq M.predicted among blacks MDRD (S/P/Bld) [Vol rate/Area] mL/min/{1.73_m2} Normal >=59 [facility] [place] Comment on above: Order Comment: Order added by Discern Expert. Result Comment: eGFR is race adjusted. AA=. Performed By: #### 1 [id number], [id number], 6707154, 0938268, 9343064, [id number] ####[facility] [place] [address] [place] [address] GFR/1.73 sq M.predicted among non-blacks MDRD (S/P/Bld) [Vol rate/Area] mL/min/{1.73_m2} Normal >=59 [facility] [place] Comment on above: Order Comment: Order added by Discern Expert. Result Comment: Director Television michele kidney disease could be indicated at eGFR's of less than 60 mL/min/1.73m2. Kidney failure is indicated at less than 15 mL/min/1.73m2. Performed By: #### 1 [id number], [id number], [id number], 3660126, 8413211, [id number] ####[facility] [place] [address] [place] [address] Consent for Procedure/Surger yon 06-27-2022 Consent for Procedure/Surgery [id number] .[id number]:127 Normal [facility] [place] Ambulatory Visit Summaryon 0 06-26-2022 Ambulatory Visit Summary RONNITHORAlice Pope :1990 Visit Date:06/26/2022 Ambulatory Visit Instructions Your Diagnosis Cholelithiasis BMI 45.0-49.9, adult On rivaroxaban therapy Your Care Team Attending Physician - Hang XIONG, Miki Antunez Primary Care Physician - WILFRID JOY, BILLY Jenkins Referring Physician - MARCELO XIONG, Jazmin This Is Your Medications List dicyclomine (Bentyl 10 mg Cap) etonogestrel (Nexplanon) ferrous sulfate (FeroSul 325 mg oral tablet) lisinopril omeprazole (omeprazole 40 mg Cap-DR) rivaroxaban (Xarelto) Discharge Vitals Heart Rate (Peripheral) 80 Blood Pressure 114/69 Height 172 cm Height 68 in Weight 134 kg Weight 294.8 lb BMI 45.29 What to do next Scheduled Follow-Up Appointments Sunday 12:30 PM EST With: Where: [facility] Sunday 8:00 AM EDT With: Where: [facility] Sunday 11:40 AM EDT With: Miki Mauricio MD Where: [facility] [place] Normal [facility] [place] General Surgery Office/Clini c Noteon 06-26-2022 General Surgery Office/Clinic Note Chief Complaint CUSTOMER CONTACT REPRESENTATIVE Gall stones HPI Staff CUSTOMER CONTACT REPRESENTATIVE Blanca is a 31 y.o. female here for Gall stones US GB done by outside source. She complains of RUQ pain, nausea. No vomiting Denies previous RUQ surgeries Patient is on Xarelto for hx of DVT History of Present Illness Blanca Rudolph is a 31-year-old female referred by Dr. Zaman for symptomatic cholelithiasis. She underwent an EGD with Dr. Zaman with a gastric biopsy on 03/10/2022 for epigastric and RUQ pain. There were some mild gastric erosions in the antrum and body. Random biopsies to rule out H. pylori showed no H. pylori, micro organisms, and moderate chronic active gastritis. An ultrasound obtained over the summer showed cholelithiasis without cholecystitis. On review of the ultrasound, she has gallstones no wall thickening and no biliary dilation. The patient complains of RUQ pain with associated nausea. She states the pain does not wake her up at night, but she also has an irregular sleep schedule, though she is not certain. The pain comes frequently throughout the week and has become more frequent. Review of Systems PHQ Score Initial Depression Screen Score: 0 Constitutional: no fever, no sweats, no weight loss. Eyes: no glasses, no blurred vision, no visual loss. ENMT: no dentures, no hoarseness, no swallowing difficulties, no hearing loss, no ear infection (s), no nose bleeds. Cardiovascular: normal blood pressure, no chest pain, regular heartbeat, no heart murmur. Respiratory: no shortness of breath, no cough, no asthma, no wheezing. Gastrointestinal: no nausea, no vomiting, no diarrhea, no constipation, no blood in stool, no change in bowel habits, no abdominal pain, no hepatitis. Genitourinary: no kidney stones, no urine infection, no difficulty passing urine. Musculoskeletal: no pain, no weakness. Skin: no changing moles, no rash, no skin lumps. Neurologic: no seizures, no epilepsy, no headache. Psychiatric: no emotional, no psychiatric problem. Endocrine: no thyroid, no diabetes. Heme/Lymph: no bleeding problems, no anemia, no blood clots, no transfusions. Allergy/Immunologic: no swollen lymph nodes/glands, no IV drug abuse. Other: Additional ROS info: Except as noted in the above Review of Systems and in the History of Present Illness, all other systems have been reviewed and are negative or noncontributory. Physical Exam Vitals & Measurements HR: 80(Peripheral) BP: 114/69 SpO2: 99% HT: 68 in HT: 172 cm WT: 134 kg WT: 294.8 lb BMI: 45.29 General: No acute distress Respiratory: Unlabored breathing on room air Cardiac: Regular rate and rhythm Abdomen: She has mild RUQ tenderness. Assessment/Plan The patient is a 31-year-old female with symptomatic cholelithiasis. 1. Cholelithiasis (K80.20: Calculus of gallbladder without cholecystitis without obstruction) We will plan for robotic cholecystectomy. The patient was instructed to hold her Xarelto for 2 days prior to surgery. 2. BMI 45.0-49.9, adult (Z68.42: Body mass index [BMI] 45.0-49.9, adult) Education was provided. 3. On rivaroxaban therapy (Z79.01: longterm (current) use of anticoagulants) Documentation services were performed after patient or guardian consented to allow [employer] to record this visit. EMILEE site specialist and provider reviewed before signing. EMILEE: Yue Mcdonnell. Follow-up No qualifying data available Patient Education Obesity, Adult Problem List/Past Medical History Ongoing ADD (attention deficit disorder) Allergic rhinitis Anxiety Back pain BMI 45.0-49.9, adult Calculus of gallbladder Cholelithiasis Depressive disorder Epigastric pain Hypertension Morbid obesity Nausea On rivaroxaban therapy Type II diabetes mellitus Historical Adult ADHD Medications Bentyl 10 mg Cap, 10 mg= 1 cap(s), Oral, QID, 11 refills FeroSul 325 mg oral tablet lisinopril, 10 mg, Oral, Daily Nexplanon omeprazole 40 mg Cap-DR, 40 mg= 1 cap(s), Oral, Daily, 2 refills, Not taking: Needs refill Xarelto Allergies Keflex (Leg pain) Social History Substance Abuse Current, Marijuana, 02/16/2022 Tobacco Former smoker, quit more than 30 days ago Tobacco Use:., 02/16/2022 Family History Crohn's disease: Aunt. Immunizations Vaccine Date Status Comments influenza virus vaccine, inactivated - Not Given Postpone due to refusal SARS-CoV-2 mRNA (tozinameran 5y-11y) vac - Not Given Postpone due to refusal influenza virus vaccine, inactivated - Not Given Patient Refuses diphtheria/pertussis, acel/tetanus adult 03/23/2020 Recorded influenza virus vaccine, inactivated 03/23/2020 Recorded diphtheria/pertussis, acel/tetanus adult 04/02/2019 Recorded influenza virus vaccine, inactivated 02/26/2019 Recorded influenza virus vaccine, inactivated 03/03/2010 Recorded human papillomavirus vaccine 07/27/2009 Recorded human papillomavirus vaccine 03/29/2009 Recorded diphtheria/pertussis, acel/tetanus adult 01/20/2009 Rex (more content not included)... Normal [facility] [place] Comment on above: Result Comment: Elec tronically Signed By: Miki Mauricio MD\.br\Date and Time Signed: 06/26/22 13:38 EST\.br\Electronically Co-Signed By: Yue Mcdonnell\.br\Date and Time Co-Signed: 06/26/22 12:24 EST Patient Educationon 06-26-19 23 Patient Education Gastroenterology Obesity, Adult Obesity is the condition of having too much total body fat. Being overweight or obese means that your weight is greater than what is considered healthy for your body size. Obesity is determined by a measurement called BMI. BMI is an estimate of body fat and is calculated from height and weight. For adults, a BMI of 30 or higher is considered obese. Obesity can lead to other health concerns and major illnesses, including: ? Stroke. ? Coronary artery disease (CAD). ? Type 2 diabetes. ? Some types of cancer, including cancers of the colon, breast, uterus, and gallbladder. ? Osteoarthritis. ? High blood pressure (hypertension). ? High cholesterol. ? Sleep apnea. ? Gallbladder stones. ? Infertility problems. What are the causes? Common causes of this condition include: ? Eating daily meals that are high in calories, sugar, and fat. ? Being born with genes that may make you more likely to become obese. ? Having a medical condition that causes obesity, including: ? Hypothyroidism. ? Polycystic ovarian syndrome (PCOS). ? Binge-eating disorder. ? Trivoli syndrome. ? Taking certain medicines, such as steroids, antidepressants, and seizure medicines. ? Not being physically active (sedentary lifestyle). ? Not getting enough sleep. ? Drinking high amounts of sugar-sweetened beverages, such as soft drinks. What increases the risk? The following factors may make you more likely to develop this condition: ? Having a family history of obesity. ? Being a woman of descent. ? Being a man of descent. ? Living in an area with limited access to: ? [place], recreation centers, or sidewalks. ? Healthy food choices, such as grocery stores and [employer]. What are the signs or symptoms? The main sign of this condition is having too much body fat. How is this diagnosed? This condition is diagnosed based on: ? Your BMI. If you are an adult with a BMI of 30 or higher, you are considered obese. ? Your waist circumference. This measures the distance around your waistline. ? Your skinfold thickness. Your health care provider may gently pinch a fold of your skin and measure it. You may have other tests to check for underlying conditions. How is this treated? Treatment for this condition often includes changing your lifestyle. Treatment may include some or all of the following: ? Dietary changes. This may include developing a healthy meal plan. ? Regular physical activity. This may include activity that causes your heart to beat faster (aerobic exercise) and strength training. Work with your health care provider to design an exercise program that works for you. ? Medicine to help you lose weight if you are unable to lose 1 pound a week after 6 weeks of healthy eating and more physical activity. ? Treating conditions that cause the obesity (underlying conditions). ? Surgery. Surgical options may include gastric banding and gastric bypass. Surgery may be done if: ? Other treatments have not helped to improve your condition. ? You have a BMI of 40 or higher. ? You have life-threatening health problems related to obesity. Follow these instructions at home: Eating and drinking ? Follow recommendations from your health care provider about what you eat and drink. Your health care provider may advise you to: ? Limit fast food, sweets, and processed snack foods. ? Choose low-fat options, such as low-fat milk instead of whole milk. ? Eat 5 or more servings of fruits or vegetables every day. ? Eat at home more often. This gives you more control over what you eat. ? Choose healthy foods when you eat out. ? Learn to read food labels. This will help you understand how much food is considered 1 serving. ? Learn what a healthy serving size is. ? Keep low-fat snacks available. ? Limit sugary drinks, such as soda, fruit juice, sweetened iced tea, and flavored milk. ? Drink enough water to keep your urine pale yellow. ? Do not follow a fad diet. Fad diets can be unhealthy and even dangerous. Physical activity ? Exercise regularly, as told by your health care provider. ? Most adults should get up to 150 minutes of moderate-intensity exercise every week. ? Ask your health care provider what types of exercise are safe for you and how often you should exercise. ? Warm up and stretch before being active. ? Cool down and stretch after being active. ? Rest between periods of activity. Lifestyle ? Work with your health care provider and a dietitian to set a weight-loss goal that is healthy and reasonable for you. ? Limit your screen time. ? Find ways to reward yourself that do not involve food. ? Do not drink alcohol if: ? Your health care provider tells you not to drink. ? You are , may be , or are planning to become . ? If you drink alcohol: ? Limit how much you use to: ? 0?1 drink (more content not included)... Normal [facility] [place] Pre-Certification Formon Pre-Certification Form [id number]# 1.00CD:127 [facility] Provider Letteron 04-20-2022 Provider Letter April 20, 2022 BLANCA RUDOLPH [address] [place] [address] [place] [address] BLANCA RUDOLPH 1990 Dear Blanca, We have been trying to reach you with no success. In regards to your EGD and scheduling a follow up in the office. Thank you for your prompt attention to this matter. Sincerely, [facility] Normal [facility] [place] PAP ACOG PANEL 1: 30 to 65on 03-23-2022 . . Normal [facility] Comment on above: Result Comment: Perf ormed at: WB Performed By: #### 4 [id number] #### [facility] [address] [address] [address] Naomi Irizarry Age Gdln ACOG Testing 30-65 [facility] Comment on above: Performed By: #### 4 [id number] #### [facility] [address] [address] [address] Naomi Irizarry DIAGNOSIS: Comment [facility] Comment on above: Result Comment: NEGA TIVE FOR INTRAEPITHELIAL LESION OR MALIGNANCY. Performed at: WB Performed By: #### 4 [id number] #### [facility] [address] [address] [address] Naomi Irizarry HPV Aptima Positive Abnormal Negative [facility] Comment on above: Result Comment: This nucleic acid amplification test detects fourteen high-risk HPV types (16,18,31,33,35,39,45,51,52,56,58,59,66,68) without differentiation. Performed at: =G Performed By: #### 4 [id number] #### [facility] [address] [address] [address] Naomi Irizarry HPV Genotype 16 Negative Normal Negative [facility] Comment on above: Performed By: #### 4 [id number] #### [facility] [address] [address] [address] Naomi Irizarry HPV Genotype 18,45 Negative Normal Negative [facility] Comment on above: Performed By: #### 4 [id number] #### [facility] [address] [address] [address] Naomi Irizarry HPV Genotype Reflex Comment Normal [facility] Comment on above: Result Comment: Crit eria met, see HPV Genotype results. Performed at: WB Performed By: #### 4 [id number] #### [facility] [address] [place] [address] Dr. Naomi Irizarry Methodology: Comment Normal [facility] Comment on above: Result Comment: This liquid based ThinPrep(R) pap test was screened with the use of an image guided system. Performed at: WB Performed By: #### 4 [id number] #### [facility] [address] [place] [address] Dr. Naomi Irizarry Note: Comment Normal [facility] Comment on above: Result Comment: The Pap smear is a screening test designed to aid in the detection of premalignant and malignant conditions of the uterine cervix. It is not a diagnostic procedure and should not be used as the sole means of detecting cervical cancer. Both false-positive and false-negative reports do occur. . Performed at: WB Performed By: #### 4 [id number] #### [facility] [address] [place] [address] Dr. Naomi Irizarry Performed by: Comment Normal [facility] Comment on above: Result Comment: [employer] (ASCP) Performed at: WB Performed By: #### 4 [id number] #### [facility] [address] [place] [address] Dr. Naomi Irizarry Specimen adequacy: Comment Normal [facility] Comment on above: Result Comment: Sati sfactory for evaluation. Endocervical and/or squamous metaplastic cells (endocervical component) are present. Performed at: WB Performed By: #### 4 [id number] #### [facility] [address] [place] [address] Dr. Naomi Irizarry CHEMISTRYOrdered By: SYSTEM SYSTEM on 02-16-2022 Albumin [Mass/Vol] 4.1 g/dL Normal 3.3 - 5.0 gm/dL [facility] Albumin/Globulin [Mass ratio] 1.0 {ratio} Low 1.1 - 2.2 [facility] Remisol ALP [Catalytic activity/Vol] 73 [iU]/d Normal 21 - 98 Int._Unit/L [facility] Remisol ALT No additional P-5'-P [Catalytic activity/Vol] 53 [iU]/d High 6 - 46 Int._Unit/L [facility] Anion gap [Moles/Vol] 6 mmol/L Normal 6 - 16 mEq/L [facility] AST [Catalytic activity/Vol] 38 [iU]/d Normal 5 - 43 Int._Unit/L [facility] Bilirubin [Mass/Vol] 0.7 mg/dL Normal 0.0 - 1.1 mg/dL [facility] Calcium [Mass/Vol] 8.3 mg/dL Low 8.9 - 11. 1 mg/dL [facility] Chloride [Moles/Vol] 108 mmol/L Normal 101 - 1 11 mmol/L [facility] CO2 [Moles/Vol] 29 mmol/L Normal 21 - 31 mmol/L [facility] Creatinine [Mass/Vol] 0.9 mg/dL Normal 0.5 - 1.3 mg/dL [facility] GFR/1.73 sq M.predicted among blacks MDRD (S/P/Bld) [Vol rate/Area] mL/min/1.73 m2 Normal >=59mL/min/1.73 m2 [facility] Chem S GFR/1.73 sq M.predicted among non-blacks MDRD (S/P/Bld) [Vol rate/Area] mL/min/1.73 m2 Normal >=59mL/min/1.73 m2 [facility] Chem S Globulin (S) [Mass/Vol] 3.9 g/dL Normal 1.4 - 4.0 gm/dL [facility] Glucose [Mass/Vol] 82 mg/dL Normal 55 - 199 mg/dL [facility] Lipase [Catalytic activity/Vol] 34 U/L Normal 13 - 58 unit/L [facility] Potassium [Moles/Vol] 4.0 mmol/L Normal 3.5 - 5.3 mmol/L [facility] Protein [Mass/Vol] 8.0 g/dL High 6.0 - 7.8 gm/dL [facility] Remisol Sodium [Moles/Vol] 139 mmol/L Normal 135 - 145 mmol/L [facility] Urea nitrogen [Mass/Vol] 13 mg/dL Normal 5 - 21 mg/dL [facility] Urea nitrogen/Creatinine [Mass ratio] 14 mg/mg Normal - [facility] Remisol HEMATOLOGYOrdered By: Everette Morocho on 02-16-2022 Erythrocyte distribution width (RBC) [Ratio] 12.9 % Normal 10.9 - 14.2 % [facility] Hematocrit (Bld) [Volume fraction] 42.7 % Normal 34.0 - 46.0 % [facility] Hemoglobin (Bld) [Mass/Vol] 15.0 g/dL Normal 12.0 - 16.0 gm/dL [facility] MCH (RBC) [Entitic mass] 31.7 pg Normal 27.0 - 34.0 pg [facility] MCHC (RBC) [Mass/Vol] 35.1 g/dL Normal 31.4 - 36.0 gm/dL [facility] MCV (RBC) [Entitic vol] 90.2 fL Normal 80.0 - 100.0 fL [facility] Platelet mean volume (Bld) [Entitic vol] 8.1 fL Normal 6.4 - 10.8 fL [facility] Platelets (Bld) [#/Vol] 238.0 E9/L Normal 150.0 - 500.0 E9/L [facility] RBC (Bld) [#/Vol] 4.7 E12/L Normal 4.3 - 5.9 E12/L [facility] HemeAutoSS WBC corrected for nucl RBC Auto (Bld) [#/Vol] 8.1 E9/L Normal 4.0 - 11.0 E9/L [facility] Vital Signs Date Time Vital Sign Value Performing Clinician Facility 09-05-2022 09:21-0400 Blood Pressure Location CYNTHIA GALLARDO [facility] 09-05-2022 09:21-0400 Diastolic blood pressure 74 mm[Hg] CYNTHIA GALLARDO [facility] 09-05-2022 09:21-0400 Heart rate 68 /min CYNTHIA GALLARDO [facility] 09-05-2022 09:21-0400 Respiratory rate 16 /min CYNTHIA GALLARDO [facility] 09-05-2022 09:21-0400 Systolic blood pressure 138 mm[Hg] CYNTHIA GALLARDO [facility] 08-10-2022 12:45-0400 Blood Pressure Location Katrin Resendiz [facility] 08-10-2022 12:45-0400 Body temperature 97.7 [degF] Katrin Zelayametz [facility] 08-10-2022 12:45-0400 Diastolic blood pressure 72 mm[Hg] Katrin Zelayametz [facility] 08-10-2022 12:45-0400 Heart rate 79 /min Katrin Zelayametz [facility] 08-10-2022 12:45-0400 Systolic blood pressure 106 mm[Hg] Katrin Zelayametz [facility] 07-17-2022 11:22-0400 Blood Pressure Location Miki Mauricio [facility] [place] 07-17-2022 11:22-0400 Diastolic blood pressure 78 mm[Hg] Miki Mauricio [facility] [place] 07-17-2022 11:22-0400 Heart rate 68 /min Miki Mauricio [facility] [place] 07-17-2022 11:22-0400 Respiratory rate 16 /min Miki Mauricio [facility] [place] 07-17-2022 11:22-0400 Systolic blood pressure 122 mm[Hg] Miki Mauricio [facility] [place] 07-11-2022 12:14-0400 Heart rate 74 /min Miki Mourany [facility] [facility] 07-[facility]2022 12:14-0400 SaO2% (BldA) [Mass fraction] 97 % Miki Mourany [facility] 07-11-2022 12:14-0400 Body temperature 98.06 [degF] Miki Mourany [facility] 07-11-2022 12:13-0400 Diastolic blood pressure 79 mm[Hg] Miki Mourany [facility] 07-11-2022 12:13-0400 Mean blood pressure 94 mm[Hg] Miki Mourany [facility] 07-11-2022 12:13-0400 Systolic blood pressure 125 mm[Hg] Miki Mourany [facility] 07-11-2022 12:13-0400 Respiratory rate 18 /min Miki Mourany [facility] 07-11-2022 11:03-0400 Heart rate 61 /min Miki Mourany [facility] 07-11-2022 11:03-0400 SaO2% (BldA) [Mass fraction] 100 % Miki Mourany [facility] 07-11-2022 11:03-0400 Body temperature 97.7 [degF] Miki Mourany [facility] 07-11-2022 11:03-0400 Diastolic blood pressure 79 mm[Hg] Miki Mourany [facility] 07-11-2022 11:03-0400 Mean blood pressure 94 mm[Hg] Miki Mourany [facility] 07-11-2022 11:03-0400 Systolic blood pressure 125 mm[Hg] Miki Mourany [facility] 07-11-2022 11:03-0400 Respiratory rate 16 /min Miki Mourany [facility] 07-11-2022 11:00-0400 Body temperature 98.42 [degF] Miki Mourany [facility] 07-11-2022 11:00-0400 Mean blood pressure 103 mm[Hg] Miki Mourany [facility] 07-11-2022 11:00-0400 Respiratory rate 26 /min Miki Mourany [facility] 07-11-2022 10:45-0400 Mean blood pressure 105 mm[Hg] Miki Mourany [facility] 07-11-2022 10:45-0400 Respiratory rate 16 /min Miki Mourany [facility] 07-11-2022 10:30-0400 Mean blood pressure 102 mm[Hg] Miki Mourany [facility] 07-11-2022 10:30-0400 Respiratory rate 12 /min Miki Mourany [facility] 07-11-2022 09:37-0400 Body temperature 97.88 [degF] Miki Mourany [facility] 07-11-2022 07:00-0400 Heart rate 72 /min Miki Mourany [facility] 02-16-2022 12:27-0400 Diastolic blood pressure 85 mm[Hg] Wu SALAM [facility] 10-20-2022 12:27-0400 Mean blood pressure 102 mm[Hg] Wu SALAM [facility] 02-16-2022 12:27-0400 Systolic blood pressure 137 mm[Hg] Wu SALAM [facility] 02-16-2022 12:23-0400 Blood Pressure Location Wu SALAM [facility] 02-16-2022 12:23-0400 Diastolic blood pressure 83 mm[Hg] Wu SALAM [facility] 02-16-2022 12:23-0400 Heart rate 73 /min Wu SALAM [facility] 02-16-2022 12:23-0400 Respiratory rate 16 /min Wu SALAM [facility] 02-16-2022 12:23-0400 Systolic blood pressure 145 mm[Hg] Wu SALAM [facility] Encounters Encounter Date Encounter Type Care Provider Facility Start: 04-06-2023 ambulatory [facility] Start: 04-06-2023 End: 04-06-2023 ambulatory [facility] Start: 03-13-2023 End: 03-14-2023 ambulatory RUFINO GALLARDO Facility:[facility] Start: 03-13-2023 End: 03-13-2023 Patient encounter procedure CYNTHIA GALLARDO [facility] Start: 01-05-2023 ambulatory [facility] Start: 01-05-2023 End: 01-05-2023 ambulatory [facility] Start: 12-15-[address] [facility] Start: 12-15-2022 ambulatory [facility] Start: 09-05-2022 End: 09-06-2022 ambulatory JASWANT-Nataliia GALLARDO Facility:[facility] [place] Start: 09-05-2022 End: 09-05-2022 Patient encounter procedure CYNTHIA GALLARDO [facility] Start: 08-15-2022 ambulatory [facility]ILLY [facility]ELAYA [facility] Start: 08-10-2022 End: 08-11-2022 ambulatory BILLY ZELAYA Facility:[facility] Start: 08-10-2022 End: 08-11-2022 ambulatory BILLY [facility] Facility:[facility] Start: 08-10-2022 End: 08-10-2022 Patient encounter procedure Katrin Resendiz [facility] Start: 08-10-2022 End: 08-10-2022 Patient encounter procedure Katrin Resendiz [facility] Start: 07-17-2022 End: 07-18-2022 ambulatory BILLY ZELAYA Facility: [facility] Start: 07-17-2022 End: 07-17-2022 Patient encounter procedure Miki Mauricio [facility] [place] Start: 07-11-2022 End: 07-11-2022 ambulatory Miki Mauricio Facility:[facility] Start: 07-11-2022 End: 07-11-2022 Admission to same day surgery center Miki Mauricio [facility] Start: 07-05-2022 End: 07-06-2022 ambulatory BILLY ZELAYA Facility:[facility] Start: 07-05-2022 ambulatory Issa Guerrero Jany cility:[id number] Start: 06-26-2022 End: 06-27-2022 ambulatory Wu DUSTINMICHAEL Facility:[facility] Start: 06-21-2022 ambulatory Wu SALAM Facility:[facility] Start: 03-14-2022 End: 03-14-[address] BENTLEY ERNANDEZ Facility:[facility] Start: 02-16-2022 End: 02-16-2022 Patient encounter procedure Wu SALAM [facility] Start: 02-16-2022 End: 06-01-2022 Recurring Wu SALAM [facility] Start: 02-16-2022 End: 02-16-2022 Patient encounter procedure Wu SALAM [facility] Start: 12-12-2021 End: 12-12-2021 ambulatory MELONY THURSTON Facility:[facility] Procedures Date Procedure Procedure Detail Performing Clinician section Miki matta Cholecystectomy Miki Mauricio Incision and drainage of hematoma Miki Mauricio Ligation of fallopian tube J ohprashanth Mauricio Immunizations Immunization Date Immunization Notes Care Provider Jany astorga 03-23-2020 influenza virus vaccine, unspecified formulation Wu SALAM [facility] 03-23-2020 tetanus toxoid, reduced diphtheria toxoid, and acellular pertussis vaccine, adsorbed Wu SALAM [facility] 04-02-2019 tetanus toxoid, reduced diphtheria toxoid, and acellular pertussis vaccine, adsorbed Wu SALAM [facility] 02-26-2019 influenza virus vaccine, unspecified formulation Wu SALAM [facility] 03-03-2010 influenza virus vaccine, unspecified formulation Wu SALAM [facility] 07-27-2009 HPV, unspecified formulation Wu SALAM [facility] 03-29-2009 HPV, unspecified formulation Wu SALAM [facility] 01-20-2009 HPV, unspecified formulation Wu SALAM [facility] 01-20-2009 meningococcal ACWY vaccine, unspecified formulation Wu SALAM [facility] 01-20-2009 tetanus toxoid, reduced diphtheria toxoid, and acellular pertussis vaccine, adsorbed Wu SALAM [facility] 05-18-2008 influenza virus vaccine, unspecified formulation Wu SALAM [facility] 05-26-2004 measles, mumps and rubella virus vaccine Wu SALAM [facility] 04-03-2003 influenza virus vaccine, unspecified formulation Wu SALAM [facility] 08-28-1996 DTaP, unspecified formulation Wu SALAM [facility] 05-17-1995 hepatitis B vaccine, pediatric or pediatric/adolescent dosage Wu SALAM [facility] 12-19-1994 hepatitis B vaccine, pediatric or pediatric/adolescent dosage Wu SALAM [facility] 11-10-1994 hepatitis B vaccine, pediatric or pediatric/adolescent dosage Wu SALAM [facility] 07-28-1993 DTaP, unspecified formulation Wu SALAM [facility] 02-10-1993 Hib, unspecified formulation Wu SALAM [facility] 02-10-1993 measles, mumps and rubella virus vaccine Wu SALAM [facility] 05-07-1992 DTaP, unspecified formulation Wu SALAM [facility] 05-07-1992 Hib, unspecified formulation Wu SALAM [facility] 03-05-1992 DTaP, unspecified formulation Wu SALAM [facility] 03-05-1992 Hib, unspecified formulation Wu SALAM [facility] 01-07-1992 DTaP, unspecified formulation Wu SALAM [facility] 01-07-1992 Hib, unspecified formulation Katrin Resendiz [facility] NEGATED: Highlighted row has not occurred!06-26-2022 influenza virus vaccine, unspecified formulation Miki Mauricio [facility] NEGATED: Highlighted row has not occurred!06-26-2022 SARS-CoV-2 mRNA (tozinameran 5y-11y) vaccine Miki Mauricio [facility] NEGATED: Highlighted row has not occurred!02-16-2022 influenza virus vaccine, unspecified formulation Wu SALAM [facility] Payers Date Payer Category Payer Unknown [id number] 1991 Unknown [id number] 2.16.84 [id number] 1991 Unknown [id number] 2.16.84 [id number] 1991 Unknown [id number] 2.16. [id number] 1991 Unknown [id number] 2.16.8 [id number] 1991 Unknown [id number] 2.16.8 [id number] 1991 Unknown [id number] 2.16.8 [id number] 1991 Unknown [id number] 2.16.8 [id number] 1991 Unknown [id number] 2.16.8 [id number] 1991 Unknown [id number] 2.16.8 [id number] 1991 Unknown [id number] 2.16.8 [id number] 1991 Unknown [id number] 2.16.8 [id number] 1991 Unknown [id number] 2.16.8 [id number] 1991 Unknown [id number] 2.16.8 [id number] 1959 Unknown [id number] Social History Date Type Detail Facility Start: 02-16-2022 End: 09-05-2022 Tobacco smoking status Ex-smoker (finding) [facility] Sex Assigned At Female [facility] Tobacco smoking status Never [facility] Functional Status Date Assessment Result Facility 09-05-2022 Functional Status N/A [facility] 08-10-2022 Functional Status N/A [facility] 07-17-2022 Functional Status N/A [facility] [place] 02-16-2022 Functional Status N/A [facility] Clinical Notes 07-05-2022 to 04-06-2023 Note Date & Type Note Facility 04-06-2023 Note 04/06/2023 Subjective Patient ID: Blanca Rudolph is a 32 y.o. female HPI: This is a [id number] patient on Descovy presenting to [facility] for a 3 month follow-up visit for preexposure prophylaxis to prevent HIV infection (PReP). The patient reports tolerance and compliance to ART without adverse reaction. Of note, the patient was found to have a RPR titer of 1:1024 on 11/22/2022 during her autoimmune work-up at [facility] for SLE and nephrotic syndrome. 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 Within the last 3 month, the patient reports fatigue, night-sweats, rash that she attributes to Lupus. She denies muscle aches, sore-throat, swollen glands, and headaches. The patient denies liver disease, patient has hx of tubal ligation, date of LMP was 01/21/2023; Patient is currently on Provera for heavy bleeding. Patient denies known active hepatitis B infection. The patient reports the following risk factors for acquisition of HIV since the last visit - Sex with men, women, or both: [ men] Sex with a partner with known HIV: [ no] Sex without a condom: [ no] Sex with more than 1 partner: [ no] Diagnosed with a sexual transmitted disease: [ yes] Anal sex without a condom:[ no] Injection of unprescribed drugs and/or shearing of any injection paraphernalia: no] Treatment in a methadone or medication based substance abuse treatment program: [no ] Past Medical History: No past medical history on file. Patient Active Problem List Diagnosis Stage IV lupus nephritis (WHO) (CMS/HCC) Exposure to HIV Latent syphilis Vitamin D deficiency SLE (systemic lupus erythematosus) (CMS/HCC) Pulmonary embolism (CMS/HCC) Positive serology for syphilis On anticoagulant therapy Nephrotic syndrome Menorrhagia with irregular cycle Low grade squamous intraepithelial lesion (LGSIL) on cervicovaginal cytologic smear Low grade squamous intraepithelial lesion (LGSIL) on cervical Pap smear History of severe pre-eclampsia History of DVT (deep vein thrombosis) Fibromyalgia Encounter for usp use of mycophenolate mofetil Delivery of by section Cyst of Bartholin's gland duct Chronic hypertension Blood loss anemia Acute kidney injury (CMS/HCC) Abdominal pain Abdominal hematoma Past Surgical History: No past surgical history on file. Medications: Current Outpatient Medications on File Prior to Visit Medication Sig Dispense Refill acetaminophen (Tylenol) 500 mg tablet Take 500 mg by mouth every 6 (six) hours if needed. albuterol 90 mcg/actuation inhaler inhale 2 puffs by mouth and INTO THE LUNGS every 4 hours if needed allopurinol (Zyloprim) 100 mg tablet Take 100 mg by mouth in the morning. amitriptyline (Elavil) 10 mg tablet 1 (one) time each day at the same time. atovaquone (Mepron) 750 mg/5 mL suspension take 10 milliliters by mouth daily with breakfast bumetanide (Bumex) 2 mg tablet take 1 tablet by mouth twice a day before meals for 30 DAYS cetirizine (ZyrTEC) 10 mg tablet Take 10 mg by mouth in the morning. cyanocobalamin (Vitamin B-12) 1,000 mcg tablet Take 1,000 mcg by mouth in the morning. dicyclomine (Bentyl) 10 mg capsule emtricitabine-tenofovir alafen (Descovy) 200-25 mg tablet Take 1 tablet by mouth in the morning. 30 tablet 0 etonogestrel-eluting contraceptive (Nexplanon) 68 mg contraceptive implant as directed Subcutaneous ferrous sulfate 325 (65 Fe) MG tablet take 1 tablet by mouth once daily for 30 magnesium oxide (Mag-Ox) 400 mg (241.3 mg magnesium) tablet take 1 tablet by mouth every morning then 1 tablet BEFORE BEDTIME DO THIS FOR 30 DAYS mycophenolate (Cellcept) 250 mg capsule take 6 capsules by mouth every morning then 6 capsules at bedtime NIFEdipine XL (Procardia XL) 30 mg 24 hr tablet Take 30 mg by mouth in the morning. omeprazole (PriLOSEC) [address] capsule Take 40 mg by mouth in the morning. predniSONE (Deltasone) 20 mg tablet take 3 tablets by mouth daily with breakfast rivaroxaban (Xarelto) 20 mg tablet 1 (one) time each day at the same time. sevelamer carbonate (Renvela) 800 mg tablet take 2 tablets by mouth every morning then 2 tablets AT 12PM then... (REFER TO PRESCRIPTION NOTES). No current facility-administered medications on file prior to visit. Social History: Social History Socioeconomic History Marital status: Single Spouse name: None Number of children: None Years of education: None Highest education level: None Occupational History None Tobacco Use Smoking status: Never Smokeless tobacco: Never Substance and Sexual Activity Alcohol use: Never Drug use: Yes Frequency: 1.0 times per week Types: Marijuana Comment: [place] pen Sexual activity: None Other Topics Concern None Social History Narrative None Social Determinants of Health Financial Resource Strain: Not on file Food Insecurity: Not on file Tr (more content not included)... [facility] 01-05-2023 Note 01/05/2023 Subjective Patient ID: Blanca Rudolph is a 32 y.o. female who presents for preexposure prophylaxis to prevent HIV infection (PReP). HPI: This is a [id number] patient on Descovy for preexposure prophylaxis to prevent HIV infection (PReP). The patient reports tolerance and compliance to ART without adverse reaction. Of note, the patient was found to have a RPR titer of 1:1024 on 11/22/2022 during her autoimmune work-up at [facility] for SLE and nephrotic syndrome. 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 The patient is here for a 4 weeks follow-up visit. The patient reports significant improvement since last visit. The patient states she was initially admitted back to the hospital due to electrolyte abnormality however states she is doing well. The patient denies fever, fatigue, night-sweats, rash, muscle aches, sore-throat, swollen glands, and headaches. The patient reports a history of kidney disease; sees nephrology. The patient denies liver disease, patient has hx of tubal ligation, date of LMP was 11/13/2022; patient denies known active hepatitis B infection. The patient reports the following risk factors for acquisition of HIV. Sex with men, women, or both: [ men] Sex with a partner with known HIV: [no ] Sex without a condom: [no ] Sex with more than 1 partner: [ no] Diagnosed with a sexual transmitted disease: [ yes] Anal sex without a condom:[ no] Injection of unprescribed drugs and/or shearing of any injection paraphernalia: [no ] Treatment in a methadone or medication based substance abuse treatment program: [no ] Past Medical History: No past medical history on file. Patient Active Problem List Diagnosis Lupus nephritis, ISN/RPS class IV ([facility]) Exposure to HIV Past Surgical History: No past surgical history on file. Medications: Current Outpatient Medications on File Prior to Visit Medication Sig Dispense Refill acetaminophen (Tylenol) 500 mg tablet Take 500 mg by mouth every 6 (six) hours if needed. albuterol 90 mcg/actuation inhaler inhale 2 puffs by mouth and INTO THE LUNGS every 4 hours if needed allopurinol (Zyloprim) 100 mg tablet Take 100 mg by mouth in the morning. amitriptyline (Elavil) 10 mg tablet 1 (one) time each day at the same time. atovaquone (Mepron) 750 mg/5 mL suspension take 10 milliliters by mouth daily with breakfast bumetanide (Bumex) 2 mg tablet take 1 tablet by mouth twice a day before meals for 30 DAYS cetirizine (ZyrTEC) 10 mg tablet Take 10 mg by mouth in the morning. cholecalciferol (Vitamin D-3) 1,250 mcg (50,000 unit) capsule Take 50,000 Units by mouth once a week. cyanocobalamin (Vitamin B-12) 1,000 mcg tablet Take 1,000 mcg by mouth in the morning. dicyclomine (Bentyl) 10 mg capsule emtricitabine-tenofovir alafen (Descovy) 200-25 mg tablet Take 1 tablet by mouth in the morning. 30 tablet 0 etonogestrel-eluting contraceptive (Nexplanon) 68 mg contraceptive implant as directed Subcutaneous ferrous sulfate 325 (65 Fe) MG tablet take 1 tablet by mouth once daily for 30 magnesium oxide (Mag-Ox) 400 mg (241.3 mg magnesium) tablet take 1 tablet by mouth every morning then 1 tablet BEFORE BEDTIME DO THIS FOR 30 DAYS mycophenolate (Cellcept) 250 mg capsule take 6 capsules by mouth every morning then 6 capsules at bedtime NIFEdipine XL (Procardia XL) 30 mg 24 hr tablet Take 30 mg by mouth in the morning. omeprazole (PriLOSEC) [address] capsule Take 40 mg by mouth in the morning. predniSONE (Deltasone) 20 mg tablet take 3 tablets by mouth daily with breakfast rivaroxaban (Xarelto) 20 mg tablet 1 (one) time each day at the same time. sevelamer carbonate (Renvela) 800 mg tablet take 2 tablets by mouth every morning then 2 tablets AT 12PM then... (REFER TO PRESCRIPTION NOTES). [] voclosporin 7.9 mg capsule Take 15.8 mg by mouth in the morning and at bedtime. 120 capsule 3 No current facility-administered medications on file prior to visit. Social History: Social History Socioeconomic History Marital status: Single Spouse name: Not on file Number of children: Not on file Years of education: Not on file Highest education level: Not on file Occupational History Not on file Tobacco Use Smoking status: Never Smokeless tobacco: Never Substance and Sexual Activity Alcohol use: Never Drug use: Yes Frequency: 1.0 times per week Types: Marijuana Comment: [place] pen Sexual activity: Not on file Other Topics Concern Not on file Social History Narrative Not on file Social Determinants of Health Financial Resource Strain: Not on file Food Insecurity: Not on file Transportation Needs: Not on file Physical Activity: Not on file Stress: Not on file Social Connections: Not on file Intimate Partner Violence: Not on file Housing Stability: Not on file Family History: No family history on file. Allergies: Allerg (more content not included)... [facility] 12-15-2022 Note 12/15/2022 Subjective Patient ID: Blanca Rudolph is a 32 y.o. female patient HPI: This is a [id number] patient who presents to clinic to establish preexposure prophylaxis to prevent HIV infection (PReP). Of note, the patient was previously admitted to [facility] on 11/22/2022; patient was recently diagnosed with systemic lupus erythematous, and concerns for nephrotic syndrome; states she was getting an autoimmune work-up and lab was concerning for SLE and nephrotic syndrome. 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 Seen by ID; she reported multiple sex partners within last year/unprotected sex without condom use; Lumbar puncture was completed as patient denied headache, neck stiffness, visual changes. ID recommended treatment for latent syphilis and a follow-up at the [facility] for PREP. Patient states she completed 2.4 M unit IM Bicillin X2 inpatient on 11/25 and 12/02; 3rd injection on 12/12 per [facility]. She states partner was also treated with 2.4M unit IM Bicillin X 1. Within the last 3 month, the patient reports fever, fatigue, night-sweats, rash, muscle aches, sore-throat, swollen glands, and headaches. The patient reports a history of kidney disease; sees nephrology, patient denies liver disease, patient has hx of tubal ligation, date of LMP was 11/13/2022; patient denies known active hepatitis B infection. Patient states she feels symptoms are related to lupus. The patient reports the following risk factors for acquisition of HIV. Sex with men, women, or both: [ men] Sex with a partner with known HIV: [no ] Sex without a condom: [no ] Sex with more than 1 partner: [ no] Diagnosed with a sexual transmitted disease: [ yes] Anal sex without a condom:[ yes] Injection of unprescribed drugs and/or shearing of any injection paraphernalia: [no ] Treatment in a methadone or medication based substance abuse treatment program: [no ] Past Medical History: History reviewed. No pertinent past medical history. Patient Active Problem List Diagnosis Lupus nephritis, ISN/RPS class IV ([facility]) Exposure to HIV Past Surgical History: History reviewed. No pertinent surgical history. Medications: Current Outpatient Medications on File Prior to Visit Medication Sig Dispense Refill acetaminophen (Tylenol) 500 mg tablet Take 500 mg by mouth every 6 (six) hours if needed. albuterol 90 mcg/actuation inhaler inhale 2 puffs by mouth and INTO THE LUNGS every 4 hours if needed amitriptyline (Elavil) 10 mg tablet 1 (one) time each day at the same time. cetirizine (ZyrTEC) 10 mg tablet Take 10 mg by mouth in the morning. cholecalciferol (Vitamin D-3) 1,250 mcg (50,000 unit) capsule Take 50,000 Units by mouth once a week. etonogestrel-eluting contraceptive (Nexplanon) 68 mg contraceptive implant as directed Subcutaneous ferrous sulfate 325 (65 Fe) MG tablet take 1 tablet by mouth once daily for 30 rivaroxaban (Xarelto) 20 mg tablet 1 (one) time each day at the same time. allopurinol (Zyloprim) 100 mg tablet Take 100 mg by mouth in the morning. atovaquone (Mepron) 750 mg/5 mL suspension take 10 milliliters by mouth daily with breakfast bumetanide (Bumex) 2 mg tablet take 1 tablet by mouth twice a day before meals for 30 DAYS cyanocobalamin (Vitamin B-12) 1,000 mcg tablet Take 1,000 mcg by mouth in the morning. dicyclomine (Bentyl) 10 mg capsule magnesium oxide (Mag-Ox) 400 mg (241.3 mg magnesium) tablet take 1 tablet by mouth every morning then 1 tablet BEFORE BEDTIME DO THIS FOR 30 DAYS mycophenolate (Cellcept) 250 mg capsule take 6 capsules by mouth every morning then 6 capsules at bedtime NIFEdipine XL (Procardia XL) 30 mg 24 hr tablet Take 30 mg by mouth in the morning. omeprazole (PriLOSEC) [address] capsule Take 40 mg by mouth in the morning. predniSONE (Deltasone) 20 mg tablet take 3 tablets by mouth daily with breakfast sevelamer carbonate (Renvela) 800 mg tablet take 2 tablets by mouth every morning then 2 tablets AT 12PM then... (REFER TO PRESCRIPTION NOTES). voclosporin 7.9 mg capsule Take 15.8 mg by mouth in the morning and at bedtime. 120 capsule 3 No current facility-administered medications on file prior to visit. Social History: Social History Socioeconomic History Marital status: Single Spouse name: None Number of children: None Years of education: None Highest education level: None Occupational History None Tobacco Use Smoking status: Never Smokeless tobacco: Never Substance and Sexual Activity Alcohol use: Never Drug use: Yes Frequency: 1.0 times per week Types: Marijuana Comment: [place] pen Sexual activity: None Other Topics Concern None Social History Narrative None Social Determinants of Health Financial Resource Strain: Not on file Food Insecurity: Not on file Transp (more content not included)... [facility] 12-05-2022 Note We received a prescr iption from Dr. Flowers for a [facility] inpatient for Lupkynis 15.8mg BID. The patient is currently in house and has follow up scheduled with another yoga coordinator later in the week, but we will submit the prior authorization to start the process with her insurance. Patient's eGFR is currently less than 45, but given her current complications and hospitalization it is the medical teams decision to investigate use with hopes that eGFR will recover. Patient's last documented BP is 135/91. She is to receive mycophenolate along with the Lupkynis per prescribing recommendations. I will submit the auth to [facility], but the outpatient rheumatology clinic will likely need to coordinate with the relay checker program for the patient to access. Teagan Araiza, PharmD, BCACP, CSP 12/05/22 3:00 PM [facility] [phone] [facility] 12-05-2022 Note PA approved through 12/04/23. Patient start form filled out and sent via email to Dr Flowers. Will need patient signature as well. LM for pt, she might still be in the hospital. Gayathri Lynch, Slo, BCACP 12/06/22 3:40 PM [facility] [phone] [facility] 12-05-2022 Note A prior authorizatio n has been submitted via [facility]. We are waiting on a determination. Nora Laura CPhT [facility] 12/05/22 3:41 PM [facility] 09-05-2022 Note Chief Complaint Referral Billy Zelaya PAC *UTI HPI Staff Evaluation requested by Billy Zelaya PAC. Pt is a new pt. Never before seen in our office. Here today due to recurrent UTI. NEG C&S done 10/04/18 + C&S done 10/26/20- E Coli UTI's over the last couple of yrs. Common Sx's Flank pain. Urgency. Burning during urination. Currently not having any symptoms. Did just finish Flagyl & Diflucan due to BV & yeast infection. Denies visible blood in urine. Unsure about family Hx. Former cigarette smoker. Current Marijuana smoker. Denies Hx of Kidney Stones. CT & C&S results are currently being faxed to our office PVR today is 67ml History of Present Illness staff HPI reviewed and agree. Review of Systems PHQ Score Initial Depression Screen Score: 0 no fever, chills, malaise, myalgia. no rash/lesions. no chest pain, palpitations, or SOB. no abdominal pain, nausea, vomiting. no unilateral calf swelling, redness, pain Physical Exam Vitals & Measurements HR: 68(Peripheral) RR: 16 BP: 138/74 HT: 68 in HT: 172 cm WT: 132 kg WT: 290.4 lb BMI: 44.62 General: nontoxic, NAD Mouth: moist mucosa Lungs: normal respiratory effort Cardio: regular rate, good distal perfusion Abdomen: nondistended, no suprapubic distention or tenderness, no CVA tenderness Neurologic: Grossly normal Skin: No rashes or suspicious lesions Assessment/Plan 1. Frequent UTI (N39.0: Urinary tract infection, site not specified) most recent UTI Did just finish Flagyl & Diflucan due to BV & yeast infection. urine cx 08/11 showed pan. UA in office today not suspicious for UTI current UTI symptoms no UTI frequency a few per year UTIs started worsening past few years Prior to that averaged UTIs very rarely pt's typical UTI sx include ____Common Sx's Flank pain. Urgency. Burning during urination. hx stones no immunosuppressed no post-menopausal/hysterectomy no proper hygiene habits: wipes front to back every time yes avoids baths/hot tubs no *does take bubble baths - advised to stop - water only* avoids scented [employer]OR products no *has been using lavender scented wipes - advised to stop* urinates after sexual activity yes however she has noticed UTIs happen more frequently after she is sexually active. CT wo contrast 08/10/22 showed no stones. (also had CT w contrast same day which showed no abnormalities. additional CTs 12/23/21 nl, 04/10/22 nl. Today we discussed the following methods to decrease frequency of UTIs: 1) Increase fluids. Aim for at least 2L daily. General bladder health reviewed and pt education provided. 2) Ensure bladder emptying fully. PVR today 67ml . Discussed pros/cons/side effects of post-coital suppressive abx. Pt would like to try. Prefers Macrobid - has tolerated it well in the past. Rx sent to pharmacy. Pt advised to contact our office w all future UTI sx so we can monitor urine cx results, treat appropriately (may require extended course abx), and monitor frequency of infections. Pt advised if develops fever, severe flank pain, vomiting - needs to go to ER. If continues to get breakthrough UTIs, we will consider cystoscopy w possible UD. Ordered: E&M of New Patient Moderate 45-59 Min 48325 Measure Post Void residual urine and/or bladder capacity by US- non-imaging 56329 Urnls Dip Stick Auto w/o Microscopy POC [id number] Orders: nitrofurantoin, See Instructions, 1 cap(s) Oral PRN after intercourse to prevent UTI, # 15 cap(s), Refills(s) 6, Pharmacy: [facility] #[id number], 172, cm, 09/05/22 9:24:00 EDT, Height/Length Dosing, 132, kg, 09/05/22 9:24:00 EDT, Weight Dosing Follow-up With When Contact Information PAULINA JOY, CYNTHIA Haywood, URL Within 6 months [address] [place] [address] Business (1) Additional Instructions: Patient Education Urinary Tract Infection, Adult Problem List/Past Medical History Ongoing Acid reflux ADD (attention deficit disorder) Allergic rhinitis Anxiety Back pain BMI 45.0-49.9, adult Calculus of gallbladder Cholelithiasis Depressive disorder Epigastric pain Frequent UTI Gas pain Gastritis Hypertension Morbid obesity Nausea On rivaroxaban therapy Type II diabetes mellitus Historical Adult ADHD Procedure/Surgical History section, Cholecystectomy, Incision and drainage of hematoma, Tubal ligation. Medications Bentyl 10 mg Cap, 10 mg= 1 cap(s), Oral, QID, 11 refills FeroSul 325 mg oral tablet, 325 mg= 1 tab(s), Oral, Daily lisinopril, 10 mg, Oral, Daily Nexplanon, 68 mg, SubCutaneous nitrofurantoin macrocrystals 50 mg Cap, See Instructions, 6 refills omeprazole 40 mg Cap-DR, 40 mg= 1 cap(s), Oral, Daily, 1 refills Pepcid 20 mg Tab, 20 mg= 1 tab(s), Oral, Daily, PRN Xarelto, 20 mg, Oral, qPM Allergies Bactrim (Rash) Keflex (Leg pain) ibuprofen (medication interference) Social History Alcohol - Denies Alcohol Use, 07/05/2022 Substance Abuse Current, Marijuana, Daily, 05 (more content not included)... [facility] Comment on above: Result Comment: Jagdish tellezally Signed By: CYNTHIA GALLARDO PA-C\Date and Time Signed: 09/05/22 10:30 EDT 09-05-2022 Hospital Discharge instructions Patient Education 09/05/2022 10:28:15 Urinary Tract Infection, Adult Urinary Tract Infection, Adult A urinary tract infection (UTI) is an infection of any part of the urinary tract. The urinary tract includes the kidneys, ureters, bladder, and urethra. These organs make, store, and get rid of urine in the body. An upper UTI affects the ureters and kidneys. A lower UTI affects the bladder and urethra. What are the causes? Most urinary tract infections are caused by bacteria in your genital area around your urethra, where urine leaves your body. These bacteria grow and cause inflammation of your urinary tract. What increases the risk? You are more likely to develop this condition if: You have a urinary catheter that stays in place. You are not able to control when you urinate or have a bowel movement (incontinence). You are female and you: ?Use a spermicide or diaphragm for control. ?Have low estrogen levels. ?Are . You have certain genes that increase your risk. You are sexually active. You take antibiotic medicines. You have a condition that causes your flow of urine to slow down, such as: ?An enlarged prostate, if you are male. ?Blockage in your urethra. ?A kidney stone. ?A nerve condition that affects your bladder control (neurogenic bladder). ?Not getting enough to drink, or not urinating often. You have certain medical conditions, such as: ?Diabetes. ?A weak disease-fighting system (immunesystem). ?Sickle cell disease. ?Gout. ?Spinal cord injury. What are the signs or symptoms? Symptoms of this condition include: Needing to urinate right away (urgency). Frequent urination. This may include small amounts of urine each time you urinate. Pain or burning with urination. Blood in the urine. Urine that smells bad or unusual. Trouble urinating. Cloudy urine. Vaginal discharge, if you are female. Pain in the abdomen or the lower back. You may also have: Vomiting or a decreased appetite. Confusion. Irritability or tiredness. A fever or chills. Diarrhea. The first symptom in older adults may be confusion. In some cases, they may not have any symptoms until the infection has worsened. How is this diagnosed? This condition is diagnosed based on your medical history and a physical exam. You may also have other tests, including: Urine tests. Blood tests. Tests for STIs (sexually transmitted infections). If you have had more than one UTI, a cystoscopy or imaging studies may be done to determine the cause of the infections. How is this treated? Treatment for this condition includes: Antibiotic medicine. Iazm-lfp-dltpazu medicines to treat discomfort. Drinking enough water to stay hydrated. If you have frequent infections or have other conditions such as a kidney stone, you may need to see a health care provider who specializes in the urinary tract (urologist). In rare cases, urinary tract infections can cause sepsis. Sepsis is a life-threatening condition that occurs when the body responds to an infection. Sepsis is treated in the hospital with IV antibiotics, fluids, and other medicines. Follow these instructions at home: Medicines Take lfsy-rga-hgqupfk and prescription medicines only as told by your health care provider. If you were prescribed an antibiotic medicine, take it as told by your health care provider. Do not stop using the antibiotic even if you start to feel better. General instructions Make sure you: ?Empty your bladder often and completely. Do not hold urine for long periods of time. ?Empty your bladder after sex. ?Wipe from front to back after urinating or having a bowel movement if you are female. Use each tissue only one time when you wipe. Drink enough fluid to keep your urine pale yellow. Keep all follow-up visits. This is important. Contact a health care provider if: Your symptoms do not get better after 1 2 days. Your symptoms go away and then return. Get help right away if: You have severe pain in your back or your lower abdomen. You have a fever or chills. You have nausea or vomiting. Summary A urinary tract infection (UTI) is an infection of any part of the urinary tract, which includes the kidneys, ureters, bladder, and urethra. Most urinary tract infections are caused by bacteria in your genital area. Treatment for this condition often includes antibiotic medicines. If you were prescribed an antibiotic medicine, take it as told by your health care provider. Do not stop using the antibiotic even if you start to feel better. Keep all follow-up visits. This is important. This information is not intended to replace advice given to you by your health care provider. Make sure you discuss any questions you have with your health care provider. Document Revised: 11/26/2020 Document Reviewed: 11/26/2020 [place] Patient Education 2022 [employer]. Follow Up Care 08/15/2022 10:04:33 With:CYNTHIA GALLARDO PA-C, URL Address: [address] [place] [address] Business (1) When:6 months [facility] 08-10-2022 Hospital Discharge instructions Patient Education 08/10/2022 12:59:46 Gastroesophageal Reflux Disease, Adult Gastroesophageal Reflux Disease, Adult Gastroesophageal reflux (DEEPAK) happens when acid from the stomach flows up into the tube that connects the mouth and the stomach (esophagus). Normally, food travels down the esophagus and stays in the stomach to be digested. However, when a person has DEEPAK, food and stomach acid sometimes move back up into the esophagus. If this becomes a more serious problem, the person may be diagnosed with a disease called gastroesophageal reflux disease (GERD). GERD occurs when the reflux: Happens often. Causes frequent or severe symptoms. Causes problems such as damage to the esophagus. When stomach acid comes in contact with the esophagus, the acid may cause soreness (inflammation) in the esophagus. Over time, GERD may create small holes (ulcers) in the lining of the esophagus. What are the causes? This condition is caused by a problem with the muscle between the esophagus and the stomach (lower esophageal sphincter, or LES). Normally, the LES muscle closes after food passes through the esophagus to the stomach. When the LES is weakened or abnormal, it does not close properly, and that allows food and stomach acid to go back up into the esophagus. The LES can be weakened by certain dietary substances, medicines, and medical conditions, including: Tobacco use. . Having a hiatal hernia. Alcohol use. Certain foods and beverages, such as coffee, chocolate, onions, and peppermint. What increases the risk? You are more likely to develop this condition if you: Have an increased body weight. Have a connective tissue disorder. Use NSAID medicines. What are the signs or symptoms? Symptoms of this condition include: Heartburn. Difficult or painful swallowing. The feeling of having a lump in the throat. A bitter taste in the mouth. Bad breath. Having a large amount of saliva. Having an upset or bloated stomach. Belching. Chest pain. Different conditions can cause chest pain. Make sure you see your health care provider if you experience chest pain. Shortness of breath or wheezing. Ongoing (chronic) cough or a night-time cough. Wearing away of tooth enamel. Weight loss. How is this diagnosed? Your health care provider will take a medical history and perform a physical exam. To determine if you have mild or severe GERD, your health care provider may also monitor how you respond to treatment. You may also have tests, including: A test to examine your stomach and esophagus with a small camera (endoscopy). A test that measures the acidity level in your esophagus. A test that measures how much pressure is on your esophagus. A barium swallow or modified barium swallow test to show the shape, size, and functioning of your esophagus. How is this treated? The goal of treatment is to help relieve your symptoms and to prevent complications. Treatment for this condition may vary depending on how severe your symptoms are. Your health care provider may recommend: Changes to your diet. Medicine. Surgery. Follow these instructions at home: Eating and drinking Follow a diet as recommended by your health care provider. This may involve avoiding foods and drinks such as: ?Coffee and tea (with or without caffeine). ?Drinks that contain alcohol. ?Energy drinks and sports drinks. ?Carbonated drinks or sodas. ?Chocolate and cocoa. ?Peppermint and mint flavorings. ?Garlic and onions. ?Horseradish. ?Spicy and acidic foods, including peppers, chili powder, rangel powder, vinegar, hot sauces, and barbecue sauce. ?Spencer fruit juices and citrus fruits, such as oranges, shirley, and limes. ?Tomato-based foods, such as red sauce, chili, salsa, and pizza with red sauce. ?Fried and fatty foods, such as donuts, chadian fries, potato chips, and high-fat dressings. ?High-fat meats, such as hot dogs and fatty cuts of red and white meats, such as rib eye steak, sausage, ham, and londono. ?High-fat dairy items, such as whole milk, butter, and cream cheese. Eat small, frequent meals instead of large meals. Avoid drinking large amounts of liquid with your meals. Avoid eating meals during the 2 3 hours before bedtime. Avoid lying down right after you eat. Do not exercise right after you eat. Lifestyle Do not use any products that contain nicotine or tobacco, such as cigarettes, e-cigarettes, and chewing tobacco. If you need help quitting, ask your health care provider. Try to reduce your stress by using methods such as yoga or meditation. If you need help reducing stress, ask your health care provider. If you are overweight, reduce your weight to an amount that is healthy for you. Ask your health care provider for guidance about a safe weight loss goal. General instructions Pay attention to any changes in your symptoms. Take eity-mdc-kbnfyae and prescription medicines only as told by your health care provider. Do not take aspirin, ibuprofen, or other NSAIDs unless your health care provider told you to do so. Wear loose-fitting clothing. Do not wear anything tight around your waist that causes pressure on your abdomen. Raise (elevate) the head of your bed about 6 inches (15 cm). Avoid bending over if this makes your symptoms worse. Keep all follow-up visits as told by your health care provider. This is important. Contact a health care provider if: You have: ?New symptoms. ?Unexplained weight loss. ?Difficulty swallowing or it hurts to swallow. ?Wheezing or a persistent cough. ?A hoarse voice. Your symptoms do not improve with treatment. Get help right away if you: Have pain in your arms, neck, jaw, teeth, or back. Feel sweaty, dizzy, or light-headed. Have chest pain or shortness of breath. Vomit and your vomit looks like blood or coffee grounds. Faint. Have stool that is bloody or black. Cannot swallow, drink, or eat. Summary Gastroesophageal reflux happens when acid from the stomach flows up into the esophagus. GERD is a disease in which the reflux happens often, causes frequent or severe symptoms, or causes problems such as damage to the esophagus. Treatment for this condition may vary depending on how severe your symptoms are. Your health care provider may recommend diet and lifestyle changes, medicine, or surgery. Contact a health care provider if you have new or worsening symptoms. Take edys-tkf-wlqndul and prescription medicines only as told by your health care provider. Do not take aspirin, ibuprofen, or other NSAIDs unless your health care provider told you to do so. Keep all follow-up visits as told by your health care provider. This is important. This information is not intended to replace advice given to you by your health care provider. Make sure you discuss any questions you have with your health care provider. Document Released: 01/24/2006 Document Revised: 10/23/2018 Document Reviewed: 10/23/2018 [employer] Patient Education 2020 [employer]. 08/10/2022 11:48:18 Gastritis, Adult Gastritis, Adult Gastritis is inflammation of the stomach. There are two kinds of gastritis: Acute gastritis. This kind develops suddenly. Chronic gastritis. This kind is much more common and lasts for a long time. Gastritis happens when the lining of the stomach becomes weak or gets damaged. Without treatment, gastritis can lead to stomach bleeding and ulcers. What are the causes? This condition may be caused by: An infection. Drinking too much alcohol. Certain medicines. These include steroids, antibiotics, and some cddx-zgf-sueblih medicines, such as aspirin or ibuprofen. Having too much acid in the stomach. A disease of the intestines or stomach. Stress. An allergic reaction. Crohn's disease. Some cancer treatments (radiation). Sometimes the cause of this condition is not known. What are the signs or symptoms? Symptoms of this condition include: Pain or a burning sensation in the upper abdomen. Nausea. Vomiting. An uncomfortable feeling of fullness after eating. Weight loss. Bad breath. Blood in your vomit or stools. In some cases, there are no symptoms. How is this diagnosed? This condition may be diagnosed with: Your medical history and a description of your symptoms. A physical exam. Tests. These can include: ?Blood tests. ?Stool tests. ?A test in which a thin, flexible instrument with a light and a camera is passed down the esophagus and into the stomach (upper endoscopy). ?A test in which a sample of tissue is taken for testing (biopsy). How is this treated? This condition may be treated with medicines. The medicines that are used vary depending on the cause of the gastritis: If the condition is caused by a bacterial infection, you may be given antibiotic medicines. If the condition is caused by too much acid in the stomach, you may be given medicines called H2 blockers, proton pump inhibitors, or antacids. Treatment may also involve stopping the use of certain medicines, such as aspirin, ibuprofen, or other NSAIDs. Follow these instructions at home: Medicines Take oswv-hjy-xzpsjhz and prescription medicines only as told by your health care provider. If you were prescribed an antibiotic medicine, take it as told by your health care provider. Do not stop taking the antibiotic even if you start to feel better. Eating and drinking Eat small, frequent meals instead of large meals. Avoid foods and drinks that make your symptoms worse. Drink enough fluid to keep your urine pale yellow. Alcohol use Do not drink alcohol if: ?Your health care provider tells you not to drink. ?You are , may be , or are planning to become . If you drink alcohol: ?Limit your use to: ?0 1 drink a day for women. ?0 2 drinks a day for men. ?Be aware of how much alcohol is in your drink. In the [place] one drink equals one 12 oz bottle of beer (355 mL), one 5 oz glass of wine (148 mL), or one 1 oz glass of hard liquor (44 mL). General instructions Talk with your health care provider about ways to manage stress, such as getting regular exercise or practicing deep breathing, meditation, or yoga. Do not use any products that contain nicotine or tobacco, such as cigarettes and e-cigarettes. If you need help quitting, ask your health care provider. Keep all follow-up visits as told by your health care provider. This is important. Contact a health care provider if: Your symptoms get worse. Your symptoms return after treatment. Get help right away if: You vomit blood or material that looks like coffee grounds. You have black or dark red stools. You are unable to keep fluids down. Your abdominal pain gets worse. You have a fever. You do not feel better after one week. Summary Gastritis is inflammation of the lining of the stomach that can occur suddenly (acute) or develop slowly over time (chronic). This condition is diagnosed with a medical history, a physical exam, or tests. This condition may be treated with medicines to treat infection or medicines to reduce the amount of acid in your stomach. Follow your health care provider's instructions about taking medicines, making changes to your diet, and knowing when to call for help. This information is not intended to replace advice given to you by your health care provider. Make sure you discuss any questions you have with your health care provider. Document Released: 04/10/2002 Document Revised: 09/03/2018 Document Reviewed: 09/03/2018 [place] Patient Education 2020 [employer]. Follow Up Care 07/24/2022 08:58:51 With:Katrin Resendiz CNP Address: When:3 months [facility] 07-11-2022 Evaluation + Plan note Extrac stephanie from: Title:CSB GA Author:Brett Pratt MD Date:07/11/22 Plan [place] [employer] (ASA) physical status classification: Class III. Anesthetic Preoperative Plan: Anesthesia General. Future Appointments Appointment Date:07/17/2022 11:40:00 AM Scheduled Provider:Miki Mauricoi MD Location:[facility] Appointment Type: Post Op [address] [facility]03-14-2023 Hospital Discharge instructions Patient Education 07/11/2022 09:54:16 Post Op Patient Instructions - (CUSTOM) 07/11/2022 09:41:11 Laparoscopic Cholecystectomy, Care After Laparoscopic Cholecystectomy, Care After This sheet gives you information about how to care for yourself after your procedure. Your health care provider may also give you more specific instructions. If you have problems or questions, contact your health care provider. What can I expect after the procedure? After the procedure, it is common to have: Pain at your incision sites. You will be given medicines to control this pain. Mild nausea or vomiting. Bloating and possible shoulder pain from the air-like gas that was used during the procedure. Follow these instructions at home: Incision care Follow instructions from your health care provider about how to take care of your incisions. Make sure you: ?Wash your hands with soap and water before you change your bandage (dressing). If soap and water are not available, use hand control room supervisor. ?Change your dressing as told by your health care provider. ?Leave stitches (sutures), skin glue, or adhesive strips in place. These skin closures may need to be in place for 2 weeks or longer. If adhesive strip edges start to loosen and curl up, you may trimthe loose edges. Do not remove adhesive strips completely unless your health care provider tells you to do that. Do not take baths, swim, or use a hot tub until your health care provider approves. Ask your healthcare provider if you can take showers. You may only be allowed to take sponge baths for bathing. Check your incision area every day for signs of infection. Check for: ?More redness, swelling, or pain. ?More fluid or blood. ?Warmth. ?Pus or a bad smell. Activity Do not drive or use heavy machinery while taking prescription pain medicine. Do not lift anything that is heavier than 10 lb (4.5 kg) until your health care provider approves. Do not play contact sports until your health care provider approves. Do not drive for 24 hours if you were given a medicine to help you relax (sedative). Rest as needed. Do not return to work or school until your health care provider approves. General instructions Take rdqk-mhb-zbtwluy and prescription medicines only as told by your health care provider. To prevent or treat constipation while you are taking prescription pain medicine, your health care provider may recommend that you: ?Drink enough fluid to keep your urine clear or pale yellow. ?Take xjuo-mmh-ulfyvsg or prescription medicines. ?Eat foods that are high in fiber, such as fresh fruits and vegetables, whole grains, and beans. ?Limit foods that are high in fat and processed sugars, such as fried and sweet foods. Contact a health care provider if: You develop a rash. You have more redness, swelling, or pain around your incisions. You have more fluid or blood coming from your incisions. Your incisions feel warm to the touch. You have pus or a bad smell coming from your incisions. You have a fever. One or more of your incisions breaks open. Get help right away if: You have trouble breathing. You have chest pain. You have increasing pain in your shoulders. You faint or feel dizzy when you stand. You have severe pain in your abdomen. You have nausea or vomiting that lasts for more than one day. You have leg pain. This information is not intended to replace advice given to you by your health care provider. Make sure you discuss any questions you have with your health care provider. Document Released: 04/16/2006 Document Revised: 03/29/2018 Document Reviewed: 10/02/2016 [place] Patient Education 2020 [employer] Follow Up Care 06/26/2022 11:12:42 With:Miki Mauricio Address: [facility] Jeremy Rodriguez, [address] [address] [phone] Business (1) When: Unknown Comments:Appointment has already been scheduled [facility]03-14-2023 NoteHistory and Physical Update H&P Reviewed. Patient seen and examined, appropriate for planned surgery, robot cholecystectomy Problem List/Past Medical History Ongoing ADD (attention deficit disorder) Allergic rhinitis Anxiety Back pain BMI 45.0-49.9, adult Calculus of gallbladder Cholelithiasis Depressive disorder Epigastric pain Hypertension Morbid obesity Nausea On rivaroxaban therapy Type II diabetes mellitus Historical Adult ADHD Procedure/Surgical History section, Incision and drainage of hematoma, Tubal ligation. Medications Bentyl 10 mg Cap, 10 mg= 1 cap(s), Oral, QID, 11 refills FeroSul 325 mg oral tablet, 325 mg= 1 tab(s), Oral, Daily HYDROmorphone 1 mg/mL injectable solution, 0.4 mg= 0.4 mL, IV Push, q4min, PRN Lactated Ringers IV Kendy 1000 mL 1,000 mL, 1000 mL, IV Lactated Ringers IV Kendy 1000 mL 1,000 mL, 1000 mL, IV lisinopril, 10 mg, Oral, Daily Nexplanon, 68 mg, SubCutaneous [place] 325 mg-5 mg oral tablet, 1 tab(s), Oral, q6hr, PRN omeprazole 40 mg Cap-DR, 40 mg= 1 cap(s), Oral, Daily, 2 refills, Not taking: see other has refills Pepcid 20 mg Tab, 20 mg= 1 tab(s), Oral, Daily, PRN Phenergan 25 mg/mL Injection, 12.5 mg= 0.5 mL, IV Push, q2min, PRN Xarelto, 20 mg, Oral, qPM Allergies Keflex (Leg pain) Social History Alcohol - Denies Alcohol Use, 07/05/2022 Substance Abuse Current, Marijuana, Daily, 07/05/2022 Tobacco - Denies Tobacco Use, 07/05/2022 Former smoker, quit more than 30 days ago Tobacco Use:., 02/16/2022 Family History Crohn's disease: Aunt.[facility]03-08-2023 Note [id number]:[id number] Evaluation + Plan note Future Appointments Appointment Date:03/03/2022 12:45:00 PM Scheduled Provider: Location:[facility] Appointment Type:Surgery PAT COVID Testing Appointment Date:03/10/2022 01:00:00 PM Scheduled Provider: Location:[facility] Appointment Type:Surgery [facility] Evaluation + Plan note Future Appointments Appointment Date:03/13/2023 02:30:00 PM Scheduled Provider:CYNTHIA GALLARDO PA-C Location:[facility] Appointment Type:URO Office Visit [facility] Hospital course Narrative No data available for this section [facility] Hospital Discharge instructions No data available for this section [facility] Progress note No data available for this section [facility] Summary Purpose Family History No Family History Records FoundNo Family History Records Found No data available for this section No Family History Records FoundNo Family History Records Found Advance Directives No Advanced Directives Records FoundNo Advanced Directives Records FoundNo Advanced Directives Records FoundNo Advanced Directives Records Found Additional Source Comments Patient Care team informatio n (unrecognized section and content) Personnel Name: BILLY ZELAYA PA-C Address: Address: [facility] Personnel Name: BILLY ZELAYA PA-C Address: Address: [facility] Personnel Name: BILLY ZELAYA PA-C Address: Address: [facility] Personnel Name: BILLY ZELAYA PA-C Address: Address: [facility] Personnel Name: BILLY ZELAYA PA-C Address: Address: [facility] Personnel Name: BILLY ZELAYA PA-C Address: Address: [facility] Personnel Name: BILLY ZELAYA PA-C Address: Address: [facility] Personnel Name: BILLY ZELAYA PA-C Address: Address: [facility] Personnel Name: BILLY ZELAYA PA-C Address: Address: [facility] INFORMATION SOURCE (unrecogn ized section and content) DATE CREATED AUTHOR 03/23/2022 [facility] DATE CREATED AUTHOR AUTHOR'S ORGANIZ ATION 02/12/2023 [facility] DATE CREATED AUTHOR AUTHOR'S ORGANIZ ATION 04/17/2023 [facility] DATE CREATED AUTHOR AUTHOR'S ORGANIZ ATION 04/17/2023 [facility] FOR RECORDS PERTAINING TO PATIENTS WHO ARE OR HAVE BEEN ENROLLED IN A CHEMICAL DEPENDENCY/SUBSTANCEABUSE PROGRAM, SOME INFORMATION MAY BE OMITTED. This clinical summary was aggregated from multiple sources. Caution should be exercised in using it in the provision of clinical care. This summary normalizes information from multiple sources, and as a consequence, information in this document may materially change the coding, format and clinical context of patient data. In addition, data may be omitted in some cases. CLINICAL DECISIONS SHOULD BE BASED ON THE PRIMARY CLINICAL RECORDS. [facility] [employer] [facility]. provides no warranty or guarantee of the accuracy or completeness of information in this document.
[2023-04-25 09:08] LABS: Age Gdln ACOG Testing Note (.); HPV Aptima Negative (Negative); IGP, Aptima HPV, rfx 16/18,45 Note (.)
== END 2023-04-18 21:08 | disposition home or self-care (01) ==
LOC: LAB 21:07
PROVIDERS: Visit Provider Obstetrics & Gynecology
DX: Z01.419 Encounter for gynecological examination (general) (routine) without abnormal findings (principal)
CPT/HCPCS: 87624; G0145

== ENCOUNTER 2023-05-07 09:53 | Outpatient (OUT) | payer OTHER, SELFPAY ==
--- OUTSIDE RECORDS SUMMARY | 2023-05-07 10:16 | XMS_ITS | CCD ---
Author Name Unknown Address [address] [place] [address] Organization [facility] Care Team Providers Care Health Promotion Officer Name Role Phone BILLY ZELAYA Primary Care Physician UnavailMELONY Servin Consulting Unavailable BRANDY ALEXIS Primary Care Unavailable MELONY THURSTNO Attending Unavailable MELONY THURSTON Admitting Unavailable AWAIS, DR HAGAN Consulting Unavailable BRANDY ALEXIS Primary Care Unavailable AWAIS, DR HAGAN Attending Unavailable AWAIS, DR HAGAN Admitting Unavailable Issa Guerrero Primary Care UnavailORIN Sheffield Attending Unavailable ORIN PACHECO Attending Unavailable ORNI PACHECO Attending Unavailable BILLY ZELAYA Primary Care Unavailable Miki Mauricio Attending Unavailable Jazmin ZAMAN Referring Unavailable BILLY ZELAYA Primary Care Unavailable Miki Mauricio Attending Unavailable RUFINO GALLARDO Attending Unavailab BILLY Mora Referring Unavailable BILLY ZELAYA Primary Care Unavailable RUFINO GALLARDO Attending Unavailab BILLY Mora Primary Care Unavailable Miki Mauricio Admitting Unavailable BILLY ZELAYA Primary Care Unavailable Miki Mauricio Attending Unavailable Miki Mauricio Referring Unavailable BILLY ZELAYA Primary Care Unavailable Katrin Resendiz Admitting Unavailable Katrin Resendiz Attending Unavailable BILLY ZELAYA Primary Care Unavailable Miki Mauricio Attending Unavailable Miki Mauricio Referring Unavailable Miki Mauricio Admitting Unavailable BILLY ZELAYA Primary Care Unavailable RUFINO GALLARDO Attending Unavailab BILLY Mora Referring Unavailable WILFRID, BILLY Primary Care Unavailable WILFRID, BILLY Primary Care Unavailable Asrtid, Katrin A Attending Unavailable Jazmin ZAMAN Referring Unavailable BILLY ZELAYA Primary Care Unavailable Miki Mauricio Attending Unavailable BENTLEY ALBRIGHT Attending Unavailable Billy Zelaya PA-C Primary Care Provider SHERMAN CALLE Attending Unavailable BILLY ZELAYA Referring Unavailable BILLY ZELAYA Primary Care Unavailable SHERMAN CALLE Referring Unavailable BILLY ZELAYA Primary Care Unavailable Allergies Allergy Classification Reported Allergen(s) Allergy Type Date of Onset Reaction(s) Facility (10 sources) Cephalexin; Translations: [cephalexin] Drug Allergy 05-03-19 Pain in lower limb (finding) [facility] [place] (4 sources) Ibuprofen; Translations: [ibuprofen] Drug Allergy 12-16-19 medication interference [facility] (2 sources) Sulfamethoxazole / Trimethoprim; Translations: [sulfamethoxazole-t rimethoprim] Drug Allergy Eruption of skin (disorder) [facility] Comment on above: ??? pt says she gets 'heat rash' often. however developed 'worse' rash than usual shortly after taking bactrim. has taken previously with NO reaction. (1 source) Sulfamethoxazole / Trimethoprim; Translations: [Bactrim] Drug Allergy [facility] (1 source) No Known Medication Allergies; Translations: [No Known Medication Allergies] Propensity to adverse reactions (disorder) [facility] Medications Current Medications Medication Drug Class(es) Dates Sig (Normalized) Sig (Original) acetaminophen 500 mg oral tablet (1 source) Start: 08-15-2022 take 1 tablet by mouth every six hours as needed for pain acetaminophen (TYLENOL EXTRA STRENGTH) 500 mg tablet Take 1 tablet (500 mg total) by mouth every 6 (six) hours as needed for pain. 30 tablet 0 08/15/2022 Active acetaminophen 325 mg / HYDROcodone bitartrate 5 mg oral tablet (1 source) Opioid Agonist Start: 07-11-2022 End: 07-13-2022 [place] 325 mg-5 mg oral tablet 1 tab(s), Oral, q6hr as needed for pain, 10 tab(s), Refill(s) 0, [facility] #[id number], 175.2, cm, 07/05/22 12:31:00 EST, Height/Length Dosing, 136, kg, 07/05/22 12:31:00 EST, Weight Dosing Start Date: 07/11/22 Stop Date: 07/13/22 Status: Ordered amitriptyline hydrochloride 10 mg oral tablet (1 source) Tricyclic Antidepressant Start: 04-02-2023 take 1 tablet by mouth once daily amitriptyline (ELAVIL) 10 mg tablet Indications: Fibromyalgia Take 1 tablet (10 mg total) by mouth nightly. 30 tablet 2 04/02/2023 Active atovaquone 150 mg/ml oral suspension (1 source) Antimalarial, Antiprotozoal take 5 mL by mouth in the morning atovaquone (MEPRON) 750 mg/5 mL suspension Take 5 mL (750 mg total) by mouth in the morning. 0 Active bumetanide 2 mg oral tablet (1 source) Loop Diuretic Start: 12-28-2022 take 1 tablet by mouth twice daily before mealtime bumetanide (BUMEX) 2 mg tablet Take 1 tablet (2 mg total) by mouth 2 (two) times a day before meals. 90 tablet 0 12/28/2022 Active dicyclomine hydrochloride 10 mg oral capsule (9 sources) Anticholinergic Start: 02-16-2022 End: 02-11-2023 take 1 capsule by mouth four times daily Bentyl 10 mg Cap 10 mg = 1 cap(s), Oral, QID, X 30 day(s), # 120 cap(s), Refills(s) 11, Pharmacy: [facility] #[id number], 172, cm, 02/16/22 12:26:00 EDT, Height/Length Dosing, [...] Refills(s) 0 Start Date: 02/16/22 Status: Ordered ferrous sulfate 325 mg oral tablet (1 source) Start: 06-15-2020 take 1 tablet by mouth once daily at breakfast ferrous sulfate (FERROUSUL) 325 (65 FE) mg tablet Take 1 tablet (325 mg total) by mouth daily with breakfast. 30 tablet 6 06/15/2020 Active fluocinonide 0.5 mg/ml topical solution (1 source) Corticosteroid Start: 03-09-2023 fluocinonide (LIDEX) 0.05 % external solution Apply 1 Application topically in the morning. 0 03/09/2023 Active ketoconazole 20 mg/ml medicated shampoo (1 source) Azole Antifungal Start: 03-09-2023 ketoconazole (NIZORAL) 2 % shampoo Apply 1 Application topically 2 (two) times a week. 0 03/09/2023 Active lidocaine 0.05 mg/mg medicated patch (1 source) Antiarrhythmic, Amide Local Anesthetic Start: 02-27-2023 apply 1 dose transdermal route once daily, then apply 1 dose transdermal route every twelve hours lidocaine (LIDODERM) 5 % Place 1 patch on the skin daily. Remove & Discard patch within 12 hours or as directed by 15 patch 0 02/27/2023 Active lisinopril 10 mg oral tablet (9 sources) Angiotensin Converting Enzyme Inhibitor Start: 02-16-2022 take 10 mg by mouth once daily lisinopril 10 mg, Oral, Daily, Refills(s) 0, High blood pressure Start Date: 02/16/22 Status: Ordered Start: 02-16-2022 lisinopril Ref ills(s) 0, High blood pressure Start Date: 02/16/22 Status: Ordered Start: 02-16-2022 lisinopril Ref ills(s) 0 Start Date: 02/16/22 Status: Ordered medroxyPROGESTERone acetate 10 mg oral tablet (1 source) Progestin Start: 03-20-2023 take 1 tablet by mouth in the morning PROVERA 10 mg tablet Take 1 tablet (10 mg total) by mouth in the morning. 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 90 tablet 0 01/25/2023 04/25/2023 Active nitrofurantoin, macrocrystals 50 mg oral capsule (2 sources) Nitrofuran Antibacterial Start: 09-05-2022 nitrofurantoin macrocrystals 50 mg Cap See Instructions, 1 cap(s) Oral PRN after intercourse to prevent UTI, # 15 cap(s), Refills(s) 6, [id number], 172, cm, 09/05/22 9:24:00 EDT, Height/Length Dosing, 132, kg, 09/05/22 9:24:00 EDT, Weight Dosing Start Date: 09/05/22 Status: Ordered omeprazole 20 mg delayed release oral capsule (7 sources) Proton Pump Inhibitor Start: 11-07-2022 take 1 capsule by mouth once daily before breakfast omeprazole (PriLOSEC) 20 mg capsule Take 1 capsule (20 mg total) by mouth every morning before breakfast. 0 11/07/2022 Active Start: 08-10-2022 End: 02-06-2023 take 1 capsule by mouth once daily omeprazole 40 mg Cap-DR 40 mg = 1 cap(s), Oral, Daily, X 90 day(s), # 90 cap(s), Refills(s) 1, [facility]acy: [id number] #[id number], 175, cm, 08/10/22 12:49:00 EDT, Height/Length Dosing, 133.3, kg, 08/10/22 12:49:00 EDT, Weight Dosing Start Date: 08/10/22 Stop Date: 02/06/23 Status: Ordered Start: 03-10-2022 take 1 capsule by [facility] once daily omeprazole 40 mg Cap-DR 40 mg = 1 cap(s), Oral, Daily, # 30 cap(s), Refills(s) 2, Pharmacy: [id number] #[id number], 172, cm, 03/10/22 12:42:00 EST, Height/Length Dosing, 133, kg, 03/10/22 12:42:00 EST, Weight Dosing Start Date: 03/10/22 Status: Ordered ondansetron 4 mg disintegrating oral tablet (1 source) Serotonin-3 Receptor Antagonist Start: 01-11-2023 take 1 tablet by mouth every eight hours as needed for nausea ondansetron ODT (ZOFRAN ODT) 4 mg disintegrating tablet Dissolve 1 tablet (4 mg total) on tongue every 8 (eight) hours as needed for nausea for up to 10 doses. 10 tablet 0 01/11/2023 Active microencapsulated potassium chloride 20 meq extended release oral tablet (1 source) Start: 12-21-2022 take 1 tablet by mouth in the morning potassium chloride (KLOR-CON M 20) 20 MEQ CR tablet Take 1 tablet (20 mEq total) by mouth in the morning and 1 tablet (20 mEq total) before bedtime. 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 1.5 tab daily for 2 weeks,then 1 tab daily 45 tablet 1 04/02/2023 Active rivaroxaban 20 mg oral tablet (10 sources) Factor Xa Inhibitor Start: 02-16-2022 take 1 tablet by mouth once daily XARELTO 20 mg tablet tablet TAKE 1 TABLET BY MOUTH ONCE DAILY 90 tablet 3 06/22/2022 Active Start: 02-16-2022 Xarelto Refill s(s) 0, Blood Thinner Start Date: 02/16/22 Status: Ordered Start: 02-16-2022 Xarelto Refill s(s) 0 Start Date: 02/16/22 Status: Ordered vitamin b12 1 mg oral tablet (1 source) Vitamin B12 take 1 tablet by mouth in the morning cyanocobalamin 1000 MCG tablet Take 1 tablet (1,000 mcg total) by mouth in the morning. 0 Active Problems Active Problems Problem Classification Problem Date Documented Da te Episodic/Chronic Anxiety disorders (10 sources) Anxiety disorder; Translations: [...] Onset: 2 Episodic Deficiency and other anemia (1 source) Anemia due to blood loss; Translations: [Iron deficiency anemia secondary to blood loss (chronic)] Onset: 1 06-23-2020 Chronic Deficiency and other anemia (6 sources) Anemia 07-05-2022 Episodic Diabetes mellitus without complication (9 sources) Type 2 diabetes mellitus 02-16-2022 Chronic Esophageal disorders (5 sources) Gastroesophageal reflux disease; Translations: [Gastroesophageal reflux disease without esophagitis] Onset: 3 08-10-2022 Chronic Essential hypertension (10 sources) Hypertensive disorder; Translations: [Essential (primary) hypertension] Onset: 9 02-15-2022 Chronic Gastritis and duodenitis (5 sources) Gastritis; Translations: [Gastritis, unspecified, without bleeding] Onset: 3 08-10-2022 Episodic Menstrual disorders (1 source) Menometrorrhagia; Translations: [Excessive and frequent menstruation with irregular cycle] Onset: 3 02-19-2023 Chronic Mood disorders (9 sources) Depressive disorder 02-16-2022 Chronic Nausea and vomiting (10 sources) Nausea; Translations: [Nausea] Onset: 2 Episodic Nephritis; nephrosis; renal sclerosis (1 source) Nephrotic syndrome; Translations: [Nephrotic syndrome with unspecified morphologic changes] Onset: 3 12-17-2022 Chronic Nutritional deficiencies (1 source) Vitamin D deficiency; Translations: [Vitamin D deficiency, unspecified] Onset: 3 11-28-2022 Chronic Other aftercare (1 source) 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 systemic 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; Translations: [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 systemic 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] Onset: 4 Episodic Other gastrointestinal disorders (5 sources) Abdominal [...] disease (9 sources) Allergic rhinitis 02-16-2022 Chronic Sexually transmitted infections (not HIV or hepatitis) (3 sources) Latent syphilis, unspecified as early or late; Translations: [Syphilis titer test positive ] Onset: 3 Chronic Spondylosis; intervertebral disc disorders; other back problems (9 sources) Backache 02-16-2022 Episodic Systemic lupus erythematosus and connective tissue disorders (4 sources) Systemic lupus erythematosus; Translations: [Systemic lupus erythematosus, unspecified] Onset: 3 11-28-2022 Chronic Unclassified (6 sources) Drug therapy finding 06-26-2022 Urinary tract infections (3 sources) Urinary tract infectious disease; Translations: [Urinary tract infection, site not specified] Onset: 3 Episodic Past or Other Problems Problem Classification Problem Date Documented Da te Episodic/Chronic Abdominal pain (15 sources) Epigastric pain; Translations: [Epigastric pain] Onset: 1 Episodic Acute and unspecified renal failure (1 source) Acute injury of kidney; Translations: [Acute kidney failure, unspecified] Onset: 3 11-28-2022 Episodic Cancer of cervix (1 source) Low grade squamous intraepithelial lesion on cervical Papanicolaou smear; Translations: [Low grade squamous intraepithelial lesion on cytologic smear of cervix (LGSIL)] Onset: 0 07-17-2022 Episodic Contraceptive and procreative management (2 sources) Sterilization requested; Translations: [Encounter for sterilization] Onset: 9 Resolved: 1 02-03-2020 Episodic Diabetes or abnormal glucose tolerance complicating ; childbirth; or the puerperium (1 source) Abnormal glucose level; Translations: [Abnormal glucose complicating ] Onset: 0 Resolved: 1 06-30-2020 Episodic Early or threatened labor (1 source) Finding of uterine contractions; Translations: [False labor, unspecified] Onset: 1 Resolved: 1 06-30-2020 Episodic Hemorrhage during ; abruptio placenta; placenta previa (1 source) Low lying placenta; Translations: [Low lying placenta NOS or without hemorrhage, unspecified trimester] Onset: 9 Resolved: 0 02-03-2020 Episodic Immunizations and screening for infectious disease (5 sources) Encounter for screening for human papillomavirus (HPV); Translations: [Contact with and (suspected) exposure to human immunodeficiency virus [HIV]] Onset: 2 Episodic Mood disorders (1 source) Mood disorders Onset: 3 12-18-2022 Other aftercare (2 sources) Other 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 (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) drug therapy; Translations: [OTH [facility]DC CURRENT DRUG THERAPY] Onset: 2 Episodic Other aftercare (1 source) Drug therapy status; Translations: [Other alf (current) drug therapy] Onset: 3 12-20-2022 Episodic Other aftercare (1 source) Drug therapy finding; Translations: [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 anticoagulants] Onset: 3 02-19-2023 Episodic Other complications of ; puerperium affecting management of mother (1 source) Deliveries by ; Translations: [Encounter for delivery without indication] Onset: 1 06-02-2020 Episodic Other complications of ; puerperium affecting management of mother (1 source) Suspected disorder; Translations: [Maternal care for other (suspected) abnormality and damage, not applicable or unspecified] Onset: 1 Resolved: 1 06-30-2020 Episodic Other complications of (1 source) Maternal obesity complicating , childbirth and the puerperium, antepartum; Translations: [Obesity complicating , unspecified trimester] Onset: 9 Resolved: 1 06-30-2020 Chronic Other complications of (1 source) Heartburn; Translations: [Other specified related conditions, unspecified trimester] Onset: 0 Resolved: 1 06-30-2020 Episodic Other connective tissue disease (1 source) Fibromyalgia; Translations: [Fibromyalgia] Onset: 3 01-23-2023 Episodic Other connective tissue disease (1 source) Fibromyalgia; Translations: [Fibromyalgia] Onset: 3 Episodic Other and delivery including normal (3 sources) Dichorionic diamniotic twin ; Translations: [Twin , dichorionic/diamniotic , second trimester] Onset: 9 Resolved: 1 07-17-2022 Episodic Phlebitis; thrombophlebitis and thromboembolism (1 source) H/O: Deep vein thrombosis; Translations: [Personal history of other venous thrombosis and embolism] Onset: 0 11-28-2022 Episodic Polyhydramnios and other problems of amniotic cavity (1 source) Polyhydramnios; Translations: [Polyhydramnios, second trimester, not applicable or unspecified] Onset: 9 Resolved: 0 02-03-2020 Episodic Pulmonary heart disease (7 sources) Pulmonary embolism; Translations: [Other pulmonary embolism without acute cor pulmonale] Onset: 0 07-05-2022 Episodic Residual codes; unclassified (1 source) H/O: severe pre-eclampsia; Translations: [Personal history of other complications of , childbirth and the puerperium] Onset: 9 02-03-2020 Episodic Residual codes; unclassified (1 source) ultrasound scan abnormal; Translations: [Pyelectasis of fetus on ultrasound] Onset: 9 Resolved: 0 02-03-2020 Episodic Superficial injury; contusion (1 source) Intra-abdominal hematoma; Translations: [Contusion of abdominal wall, initial encounter] Onset: 1 06-09-2020 Episodic Unclassified (1 source) Exposure to 2019 novel coronavirus; Translations: [Contact with and (suspected) exposure to COVID19] Results Test Name Value Interpretation Reference Range Facil ity CBC AND AUTO DIFFon 05-03-19 24 ABSOLUTE BASOPHIL 0.0 X10E9/L Normal 0.0-0.2 [facility] Comment on above: Performed By: #### 4 485-9, CMP, CBCA, 82263-6, 4498-, 1987-08 #### [facility] ([id number]) [address], [address] [place] [address] ABSOLUTE NEUTROPHIL 5.5 X10E9/L Normal 1.5-6.6 [facility] Comment on above: Performed By: #### 4 485-9, CMP, CBCA, 29887-2, 4498-2, 1987-08 #### [facility] ([id number]) [address], [address] [place] [address] Basophils/100 WBC (Bld) 0.3 % Normal [facility] Comment on above: Performed By: #### 4 485-9, CMP, CBCA, 21037-5, 4498-2, 1987-08 #### [facility] ([id number]) [address], [address] [place] [address] Eosinophils (Bld) [#/Vol] 0.0 10*3/uL Normal 0.0-0.4 [facility] Comment on above: Performed By: #### 4 485-9, CMP, CBCA, 05065-9, 4497-05, 1987-08 #### [facility] ([id number]) [address], [address] [place] [address] Eosinophils/100 WBC (Bld) 0.5 % Normal [facility] Comment on above: Performed By: #### 4 485-9, CMP, CBCA, 45717-8, 4497-05, 1987-08 #### [facility] ([id number]) [address], [address] [place] [address] Erythrocyte distribution width (RBC) [Ratio] 13.3 % Normal 11.5-15.0 [facility] Comment on above: Performed By: #### 4 485-9, CMP, CBCA, 40542-0, 4497-05, 1987-08 #### [facility] ([id number]) [address], [address] [place] [address] Hematocrit (Bld) [Volume fraction] 36.0 % Normal 35-47 [facility] Comment on above: Performed By: #### 4 485-9, CMP, CBCA, 19154-9, 4497-05, 1987-08 #### [facility] ([id number]) [address] [place] [address] Hemoglobin (Bld) [Mass/Vol] 12.3 g/dL Normal 11.7-15.5 [facility] Comment on above: Performed By: #### 4 485-9, CMP, CBCA, 26260-1, 4497-05, 1987-08 #### [facility] ([id number]) [address] [place] [address] Lymphocytes (Bld) [#/Vol] 1.9 10*3/uL Normal 1.0-3.5 [facility] Comment on above: Performed By: #### 4 485-9, CMP, CBCA, 14614-7, 4498-2, 1987-08 #### [facility] ([id number]) [address] [place] [address] Lymphocytes/100 WBC (Bld) 23.5 % Normal [facility] Comment on above: Performed By: #### 4 485-9, CMP, CBCA, 74107-7, 4497-, 1987-08 #### [facility] ([id number]) [address] [address] MCH (RBC) [Entitic mass] 30.4 pg Normal 27-34 [facility] Comment on above: Performed By: #### 4 485-9, CMP, CBCA, 95627-7, 4497-, 1987-08 #### [facility] ([id number]) [address] [address] MCHC (RBC) [Mass/Vol] 34.1 g/dL Normal 32-36 [facility] Comment on above: Performed By: #### 4 485-9, CMP, CBCA, 88234-4, 4497-, 1987-08 #### [facility] ([id number]) [address] [address] MCV (RBC) [Entitic vol] 89 fL Normal 80-100 [facility] Comment on above: Performed By: #### 4 485-9, CMP, CBCA, 22112-1, 4498-2, 1987-08 #### [facility] ([id number]) [address] [place] [address] Monocytes (Bld) [#/Vol] 0.7 10*3/uL Normal 0-0.9 [facility] Comment on above: Performed By: #### 4 485-9, CMP, CBCA, 30153-7, 4498-2, 1987-08 #### [facility] ([id number]) [address], [address] [place] [address] Monocytes/100 WBC (Bld) 8.3 % Normal [facility] Comment on above: Performed By: #### 4 485-9, CMP, CBCA, 18070-7, 4498-2, 1987-08 #### [facility] ([id number]) [address], [address] [place] [address] Neutrophils/100 WBC (Bld) 67.4 % Normal [facility] Comment on above: Performed By: #### 4 485-9, CMP, CBCA, 04426-8, 4498-2, 1987-08 #### [facility] ([id number]) [address], [address] [place] [address] Platelet mean volume (Bld) [Entitic vol] 7.6 fL Normal 7-12 [facility] Comment on above: Performed By: #### 4 485-9, CMP, CBCA, 50786-6, 4498-2, 1987-08 #### [facility] ([id number]) [address], [address] [place] [address] Platelets (Bld) [#/Vol] 322 10*3/uL Normal 150-450 [facility] Comment on above: Performed By: #### 4 485-9, CMP, CBCA, 42295-9, 4498-2, 1987-08 #### [facility] ([id number]) [address], [address] [place] [address] RBC COUNT 4.04 X10E12/L Normal 3.80-5.20 [facility] Comment on above: Performed By: #### 4 485-9, CMP, CBCA, 43298-1, 4498-2, 1987-08 #### [facility] ([id number]) [address], [address] [place] [address] WBC (Bld) [#/Vol] 8.2 10*3/uL Normal 4.0-11.0 [facility] Comment on above: Performed By: #### 4 485-9, CMP, CBCA, 85620-2, 4498-2, 1987-08 #### [facility] ([id number]) [address], [address] [place] [address] COMPREHENSIVE METABOLIC PANE Gerardo 05-03-2023 Albumin [Mass/Vol] 3.9 g/dL Normal 3.2-5.3 [facility] Comment on above: Performed By: #### 4 485-9, CMP, CBCA, 42383-5, 4498-2, 1987-08 #### [facility] ([id number]) [address], [address] [place] [address] ALP [Catalytic activity/Vol] 51 U/L Normal 39-130 [facility] Comment on above: Performed By: #### 4 485-9, CMP, CBCA, 66551-1, 4498-2, 1987-08 #### [facility] ([id number]) [address], [address] [place] [address] ALT [Catalytic activity/Vol] 9 U/L Normal 0-31 [facility] Comment on above: Performed By: #### 4 485-9, CMP, CBCA, 81235-3, 4498-2, 1987-08 #### [facility] ([id number]) [address], [address] [place] [address] Anion gap [Moles/Vol] 10 mmol/L Normal 5-15 [facility] Comment on above: Performed By: #### 4 485-9, CMP, CBCA, 84859-7, 4498-2, 1987-08 #### [facility] ([id number]) [address], [address] [place] [address] AST [Catalytic activity/Vol] 12 U/L Normal 0-41 [facility] Comment on above: Performed By: #### 4 485-9, CMP, CBCA, 56749-2, 4497-2, 1987-08 #### [facility] ([id number]) [address], [address] [place] [address] Bilirubin [Mass/Vol] 0.2 mg/dL Low 0.3-1.2 [facility] Comment on above: Performed By: #### 4 485-9, CMP, CBCA, 85513-8, 4497-05, 1987-08 #### [facility] ([id number]) [address], [address] [place] [address] Calcium [Mass/Vol] 8.7 mg/dL Normal 8.5-10.5 [facility] Comment on above: Performed By: #### 4 485-9, CMP, CBCA, 47042-2, 4497-05, 1987-08 #### [facility] ([id number]) [address], [address] [place] [address] Chloride [Moles/Vol] 102 mmol/L Normal 98-109 [facility] Comment on above: Performed By: #### 4 485-9, CMP, CBCA, 43399-8, 4497-, 1987-08 #### [facility] ([id number]) [address], [address] [place] [address] CO2 [Moles/Vol] 31 mmol/L Normal 22-32 [facility] Comment on above: Performed By: #### 4 485-9, CMP, CBCA, 45405-1, 4497-2, 1987-08 #### [facility] ([id number]) [address], [address] [place] [address] Creatinine [Mass/Vol] 1.56 mg/dL High 0.40-1.00 [facility] Comment on above: Result Comment: METH OD TRACEABLE TO IDMS STANDARD Performed By: #### 4 485-9, CMP, CBCA, 74518-4, 4498-2, 1987-08 #### [facility] ([id number]) [address], [address] [address] GFR/1.73 sq M.predicted among non-blacks MDRD (S/P/Bld) [Vol rate/Area] 45 mL/min/{1.73_m2} Low >59 [facility] Comment on above: Result Comment: Reported eGFR is based on the CKD-EPI 2020 equation that does not use a race coefficient. Performed By: #### 4 485-9, CMP, CBCA, 42191-3, 4498-2, 1987-08 #### [facility] ([id number]) [address], [address] [address] Glucose [Mass/Vol] 112 mg/dL High 65-99 [facility] Comment on above: Performed By: #### 4 485-9, CMP, CBCA, 18892-4, 449-2, 1987-08 #### [facility] ([id number]) [address], [address] [address] Potassium [Moles/Vol] 3.5 mmol/L Normal 3.5-5.0 [facility] Comment on above: Performed By: #### 4 485-9, CMP, CBCA, 19217-0, 4498-2, 1987-08 #### [facility] ([id number]) [address], [address] [address] Protein [Mass/Vol] 6.3 g/dL Normal 6.0-8.0 [facility] Comment on above: Performed By: #### 4 485-9, CMP, CBCA, 68274-6, 4498-2, 1987-08 #### [facility] ([id number]) [address], [address] [place] [address] Sodium [Moles/Vol] 143 mmol/L Normal 134-146 [facility] Comment on above: Performed By: #### 4 485-9, CMP, CBCA, 56837-4, 4498-2, 1987-08 #### [facility] ([id number]) [address], [address] [place] [address] Urea nitrogen [Mass/Vol] 25 mg/dL High 5-23 [facility] Comment on above: Performed By: #### 4 485-9, CMP, CBCA, 61018-3, 4498-2, 1987-08 #### [facility] ([id number]) [address], [address] [place] [address] CRP [Mass/Vol]on 05-03-2023 C REACTIVE PROTEIN 0.1 mg/dL Normal 0.000-0.744 [facility] Comment on above: Performed By: #### 4 485-9, CMP, CBCA, 41096-1, 449-2, 1987-08 #### [facility] ([id number]) [address], [address] [place] [address] Complement C3 [Mass/Vol]on 0 05-03-2023 COMPLEMENT C3 124 mg/dL Normal 86-184 [facility] Comment on above: Performed By: #### 4 485-9, CMP, CBCA, 61219-6, 4498-2, 1987-08 #### [facility] ([id number]) [address], [address] [place] [address] Complement C4 [Mass/Vol]on 0 05-03-2023 COMPLEMENT C4 21 mg/dL Normal 16-47 [facility] Comment on above: Performed By: #### 4 485-9, CMP, CBCA, 35822-0, 4498-2, 1987-08 #### [facility] ([id number]) [address], [address] [place] [address] ESR Photometric method (Bld) [Velocity]on 05-03-2023 ESR, ERYTHROCYTE SEDIMENTATION RATE 14 mm/h Normal 0-20 [facility] Comment on above: Performed By: #### 4 485-9, CMP, CBCA, 90402-5, 4498-2, 1988- #### [facility] ([id number]) [address], [address] [place] [address] PROTEIN CREAT RATIOon 2023 RANDOM URINE PROTEIN 3040 mg/L High <120 [facility] Comment on above: Performed By: #### U PCR #### [facility] ([id number]) [address], [address] [address] U/PRO/CLINICAL REHABILITATION LIAISON RATIO CALC 1.59 High <0.2 [facility] Comment on above: Result Comment: Neph rotic Syndrome is associated with ratios >3.5 Performed By: #### U PCR #### [facility] ([id number]) [address], [address] [address] URINE CREATININE,RDM 190.94 mg/dL Normal [facility] Comment on above: Performed By: #### U PCR #### [facility] ([id number]) [address] [address] URINALYSISon 05-03-2023 Bilirubin Ql (U) Negative Normal NEG [facility] Comment on above: Performed By: #### U PCR #### [facility] ([id number]) [address] [address] BLOOD/HGB Large Abnormal NEG [facility] Comment on above: Performed By: #### U PCR #### [facility] ([id number]) [address], [address] [place] [address] Color (U) YELLOW Normal YELLOW [facility] Comment on above: Performed By: #### U PCR #### [facility] ([id number]) [address], [address] [place] [address] Glucose Ql (U) Negative Normal NEG [facility] Comment on above: Performed By: #### U PCR #### [facility] ([id number]) [address] [facility], [address] [place] [address] Ketones Ql (U) Negative Normal NEG [facility] Comment on above: Performed By: #### U PCR #### [facility] ([id number]) [address] [facility], [address] [place] [address] Leukocyte esterase Test strip Ql (U) Negative Normal NEG [facility] Comment on above: Performed By: #### U PCR #### [facility] ([id number]) [address] [facility], [address] [place] [address] MUCOUS PRESENT Abnormal NONE [facility] Comment on above: Performed By: #### U PCR #### [facility] ([id number]) [address] [facility], [address] [place] [address] Nitrite Ql (U) Negative Normal NEG [facility] Comment on above: Performed By: #### U PCR #### [facility] ([id number]) [address], [address] [place] [address] pH (U) 6.0 [pH] Normal 5.0-8.5 [facility] Comment on above: Performed By: #### U PCR #### [facility] ([id number]) [address] [facility], [address] [place] [address] Protein Ql (U) 200 mg/dL Abnormal NEG [facility] Comment on above: Performed By: #### U PCR #### [facility] ([id number]) [address], [address] [place] [address] R.B.CELLS 69 /hpf High 0-5 [facility] Comment on above: Performed By: #### U PCR #### [facility] ([id number]) [address] [facility], [address] [place] [address] Specific gravity (U) [Rel density] 1.019 Normal 1.003-1.035 [facility] Comment on above: Performed By: #### U PCR #### [facility] ([id number]) [address] [facility], [address] [place] [address] SQUAMOUS EPITHELIUM <1 Normal 0-5 [facility] Comment on above: Performed By: #### U PCR #### [facility] ([id number]) [address] [facility], [address] [place] [address] TURBIDITY HAZY Abnormal CLEAR [facility] Comment on above: Performed By: #### U PCR #### [facility] ([id number]) [address] [facility], [address] [place] [address] Urobilinogen (U) [Mass/Vol] mg/dL Normal <1.1 [facility] Comment on above: Performed By: #### U PCR #### [facility] ([id number]) [address] [facility], [address] [place] [address] W.B.CELLS 0 /hpf Normal 0-5 [facility] Comment on above: Performed By: #### U PCR #### [facility] ([id number]) [address] [facility], [address] [place] [address] Lab Reportson 04-17-2023 Lab Reports [id number]. [id number] Normal [facility] 29on 04-06-2023 29 Addended by: NO OVALLE on: 04/10/2023 12:12 PM Modules accepted: Orders Normal [facility] CHLAMYDIA TRACHOMATIS AND NE ISSERIA GONORRHEA, TMAon 04-06-2023 CHLAMYDIA TRACHOMATIS DNA PROBE (PRESENCE) IN UNSP SPEC Negative Normal Negative [facility] Comment on above: Result Comment: No C hlamydia trachomatis rRNA Detected. The Aptima Combo 2 Assay is a FDA approved target amplification nucleic acid probe test that utilizes target capture for the in vitro qualitative detection and differentiation of ribosomal RNA (rRNA) from Chlamydia trachomatis (CT) and/or Neisseria gonorrhoeae (GC) to aid the diagnosis of chlamydial and/or gonococcal urogenital disease using the Charlotte System. The Aptima Combo 2 Assay involves target capture, target amplification by Billboard Erector Helper-Mediated Amplification (TMA), and the detection of the amplification products (amplicon) by the Hybridization Protection Assay (HPA). The internal process controls of the Charlotte System monitor the target capture, amplification, and detection steps of the assay, this is not intended to control for sampling adequacy. Performed By: #### L [id number] ####[facility] ([facility])[address] [place] [address] Performed By: #### L [id number] #### [facility] (BEAKER) [address] [place] [address] NEISSERIA GONORRHOEAE DNA PROBE (PRESENCE) IN UNSP SPEC Negative Normal Negative [facility] Comment on above: Result Comment: No N eisseria gonorrhoeae rRNA Detected. The Aptima Combo 2 Assay is a FDA approved target amplification nucleic acid probe test that utilizes target capture for the in vitro qualitative detection and differentiation of ribosomal RNA (rRNA) from Chlamydia trachomatis (CT) and/or Neisseria gonorrhoeae (GC) to aid the diagnosis of chlamydial and/or gonococcal urogenital disease using the Charlotte System. The Aptima Combo 2 Assay involves target capture, target amplification by Billboard Erector Helper-Mediated Amplification (TMA), and the detection of the amplification products (amplicon) by the Hybridization Protection Assay (HPA). The internal process controls of the Charlotte System monitor the target capture, amplification, and detection steps of the assay, this is not intended to control for sampling adequacy. Performed By: #### L [id number] ####[facility] ([facility])[address] [place] [address] Performed By: #### L [id number] #### [facility] ([facility]) [address] [place] [address] FTA ABSon 04-06-2023 FTA-ABS Reactive Abnormal Nonreactive, 1+, 2+, 3+, 4+, Inconclusive [facility] Comment on above: Performed By: #### L [id number] #### [facility] ([facility]) [address] [place] [address] HIV COMBO 4Gon 04-06-2023 HIV COMBO 4G Negative Normal Negative [facility] Comment on above: Performed By: #### L [id number] #### [facility] ([facility]) [address] [place] [address] Office Visiton 04-06-2023 Follow-up visit [id number] Blanca Rudolph 1990 F Date Provider Department Laura 04/06/2023 [facility] Ena Heal No family history on file Level of Service:27759 MT OFFICE/OUTPATIENT ESTABLISHED MOD MDM 30-39 MIN Normal [facility] RPRon 04-06-2023 REAGIN AB PRESENCE IN SERUM BY RPR Reactive Abnormal Nonreactive [facility] Comment on above: Performed By: #### L [id number] #### [facility] ([facility]) [address] [place] [address] RPR QUANTITATIVEon RPR QUANT 1:8 High <1:1 [facility] Comment on above: Result Comment: The syphilis screen is a treponemal assay; patients with previously treated syphilis could be reactive on this assay, but nonreactive on the RPR Quant assay. Performed By: #### L [id number] #### [facility] ([facility]) [address] [place] [address] Orders Onlyon 03-19-2023 Orders Only [id number] Blanca Rudolph 1990 F Date Provider Department Center 03/19/2023 [facility] Ena Heal No family history on file Normal [facility] 36on 02-09-2023 36 Patient would like prescription mailed to him. Address in [facility] verified with patient. Normal [facility] Refillon 02-09-2023 Refill [id number] Blanca Rudolph 1990 F Date Provider Department Center 02/09/2023 JEFFERY AVITIA [facility] Ena Heal No family history on file Reason for Visit and Comments: Med Refill [[id number]] Normal [facility] CBC WITH AUTO DIFFERENTIALon 01-05-2023 Basophils (Bld) [#/Vol] 0.01 10*3/uL Normal 0.00-0.20 [facility] Comment on above: Performed By: #### L [id number] #### [facility] (BEAKER) [address] [place] [address] Basophils/100 WBC (Bld) 0.1 % Normal 0.0-1.0 [facility] Comment on above: Performed By: #### L [id number] #### [facility] (BEAKER) [address] [place] [address] Eosinophils (Bld) [#/Vol] 0.00 10*3/uL Normal 0.00-0.50 [facility] Comment on above: Performed By: #### L [id number] #### [facility] (BEAKER) [address] [place] [address] Eosinophils/100 WBC (Bld) 0.0 % Normal 0.0-6.0 [facility] Comment on above: Performed By: #### L [id number] #### [facility] (BEAKER) [address] [place] [address] Erythrocyte distribution width (RBC) [Ratio] 14.1 % Normal 11.5-15.0 [facility] Comment on above: Performed By: #### L [id number] #### [facility] (BEAKER) [address] [place] [address] ERYTHROCYTE MEAN CORPUSCULAR HEMOGLOBIN CONCENTRATION (G/DL) BY AUTOMATED 35.5 g/dL High 32.0-35.0 [facility] Comment on above: Performed By: #### L [id number] #### [facility] ([facility]) [address] [place] [address] Hematocrit (Bld) [Volume fraction] 36.9 % Normal 36.0-48.0 [facility] Comment on above: Performed By: #### L [id number] #### [facility] ([facility]) [address] [place] [address] Hemoglobin (Bld) [Mass/Vol] 13.1 g/dL Normal 12.0-15.0 [facility] Comment on above: Performed By: #### L [id number] #### [facility] ([facility]) [address] [place] [address] Immature granulocytes (Bld) [#/Vol] 0.09 10*3/uL Normal 0.00-0.20 [facility] Comment on above: Performed By: #### L [id number] #### [facility] ([facility]) [address] [place] [address] Immature granulocytes/100 WBC (Bld) 0.9 % Normal 0.0-1.0 [facility] Comment on above: Performed By: #### L [id number] #### [facility] ([facility]) [address] [place] [address] Lymphocytes (Bld) [#/Vol] 0.40 10*3/uL Low 1.20-4.00 [facility] Comment on above: Performed By: #### L [id number] #### [facility] ([facility]) [address] [place] [address] Lymphocytes/100 WBC (Bld) 3.8 % Low 20.0-45.0 [facility] Comment on above: Performed By: #### L [id number] #### [facility] ([facility]) [address] [place] [address] MCH (RBC) [Entitic mass] 31.2 pg Normal 27.0-33.0 [facility] Comment on above: Performed By: #### L [id number] #### [facility] ([facility]) [address] [place] [address] MCV (RBC) [Entitic vol] 87.9 fL Normal 82.0-98.0 [facility] Comment on above: Performed By: #### L [id number] #### [facility] ([facility]) [address] [place] [address] Monocytes (Bld) [#/Vol] 0.17 10*3/uL Normal 0.10-1.00 [facility] Comment on above: Performed By: #### L [id number] #### [facility] ([facility]) [address] [place] [address] Monocytes/100 WBC (Bld) 1.6 % Low 5.0-12.0 [facility] Comment on above: Performed By: #### L [id number] #### [facility] ([facility]) [address] [place] [address] Neutrophils (Bld) [#/Vol] 9.73 10*3/uL High 1.60-7.60 [facility] Comment on above: Performed By: #### L [id number] #### [facility] ([facility]) [address] [place] [address] Neutrophils/100 WBC (Bld) 93.6 % High 40.0-72.0 [facility] Comment on above: Performed By: #### L [id number] #### [facility] ([facility]) [address] [place] [address] NRBC (PER 100 WBCS) BY AUTOMATED COUNT 0.0 % Normal 0 [facility] Comment on above: Performed By: #### L [id number] #### [facility] ([facility]) [address] [place] [address] PLATELETS (10*3/UL) IN BLOOD AUTOMATED COUNT 273 10*3/uL Normal 150-400 [facility] Comment on above: Performed By: #### L [id number] #### [facility] ([facility]) [address] [place] [address] RBC (Bld) [#/Vol] 4.20 10*6/uL Normal 3.80-5.00 [facility] Comment on above: Performed By: #### L [id number] #### [facility] ([facility]) [address] [place] [address] WBC (Bld) [#/Vol] 10.40 10*3/uL Normal 4.00-10.[address] [facility] Comment on above: Performed By: #### L [id number] #### [facility] ([facility]) [address] [place] [address] COMPREHENSIVE METABOLIC PANE Gerardo 01-05-2023 Albumin [Mass/Vol] 2.8 g/dL Low 3.5-5.7 [facility] Comment on above: Performed By: #### L [id number] #### [facility] ([facility]) [address] [place] [address] ALP [Catalytic activity/Vol] 51 U/L Normal 34-104 [facility] Comment on above: Performed By: #### L [id number] #### [facility] ([facility]) [address] [place] [address] ALT [Catalytic activity/Vol] 17 U/L Normal 7-52 [facility] Comment on above: Performed By: #### L [id number] #### [facility] ([facility]) [address] [place] [address] Anion gap [Moles/Vol] 13 mmol/L Normal 7-20 [facility] Comment on above: Performed By: #### L [id number] #### [facility] ([facility]) [address] [place] [address] AST [Catalytic activity/Vol] 16 U/L Normal 13-39 [facility] Comment on above: Performed By: #### L [id number] #### [facility] ([facility]) [address] [place] [address] Bilirubin [Mass/Vol] 0.4 mg/dL Normal 0.3-1.[address] [facility] Comment on above: Performed By: #### L [id number] #### [facility] ([facility]) [address] [place] [address] Calcium [Mass/Vol] 7.9 mg/dL Low 8.6-10.3 [facility] Comment on above: Performed By: #### L [id number] #### [facility] ([facility]) [address] [place] [address] Chloride [Moles/Vol] 99 mmol/L Normal 98-[address] [facility] Comment on above: Performed By: #### L [id number] #### [facility] ([facility]) [address] [place] [address] CO2 [Moles/Vol] 30 mmol/L Normal 21-31 [facility] Comment on above: Performed By: #### L [id number] #### [facility] ([facility]) [address] [place] [address] Creatinine [Mass/Vol] 1.46 mg/dL High 0.60-1.20 [facility] Comment on above: Performed By: #### L [id number] #### [facility] ([facility]) [address] [place] [address] GLOMERULAR FILTRATION RATE ML/MIN/1.73 SQ M.PREDICTED 49.0 mL/min/1.73m*2 Low >60.0 [facility] Comment on above: Result Comment: [facility]???s estimated glomerular filtration rate (eGFR) will no [...] individuals. Performed By: #### L [id number] #### [facility] ([facility]) [address] [place] [address] Glucose [Mass/Vol] 139 mg/dL High 70-100 [facility] Comment on above: Performed By: #### L [id number] #### [facility] ([facility]) [address] [place] [address] Potassium [Moles/Vol] 4.1 mmol/L Normal 3.5-5.1 [facility] Comment on above: Performed By: #### L [id number] #### [facility] ([facility]) [address] [place] [address] Protein [Mass/Vol] 4.9 g/dL Low 6.0-8.3 [facility] Comment on above: Performed By: #### L [id number] #### [facility] ([facility]) [address] [place] [address] Sodium [Moles/Vol] 138 mmol/L Normal 136-145 [facility] Comment on above: Performed By: #### L [id number] #### [facility] ([facility]) [address] [place] [address] Urea nitrogen [Mass/Vol] 35 mg/dL High 7-25 [facility] Comment on above: Performed By: #### L [id number] #### [facility] ([facility]) [address] [place] [address] UREA NITROGEN/CREATININE (MASS RATIO) IN SER/PLAS 24.0 Normal [facility] Comment on above: Performed By: #### L [id number] #### [facility] ([facility]) [address] [place] [address] HIV COMBO 4Gon 01-05-2023 HIV COMBO 4G Negative Normal Negative [facility] Comment on above: Performed By: #### L [id number] #### [facility] ([facility]) [address] [place] [address] Office Visiton 01-05-2023 Follow-up visit [id number] Blanca Rudolph 1990 F Date Provider Department Center 01/05/2023 [facility] Ena Heal No family history on file Level of Service:38315 MT OFFICE/OUTPATIENT ESTABLISHED MOD MDM 30-39 MIN Normal [facility] CBC WITH AUTO DIFFERENTIALon 12-15-2022 Basophils (Bld) [#/Vol] 0.02 10*3/uL Normal 0.00-0.20 [facility] Comment on above: Performed By: #### L [id number] #### [facility] (BEAKER) [address] [facility] [place] [address] Basophils/100 WBC (Bld) 0.1 % Normal 0.0-1.0 [facility] Comment on above: Performed By: #### L [id number] #### [facility] (BEAKER) [address] [facility] [place] [address] Eosinophils (Bld) [#/Vol] 0.00 10*3/uL Normal 0.00-0.50 [facility] Comment on above: Performed By: #### L [id number] #### [facility] (BEAKER) [address] [facility] [place] [address] Eosinophils/100 WBC (Bld) 0.0 % Normal 0.0-6.0 [facility] Comment on above: Performed By: #### L [id number] #### [facility] (BEAKER) [address] [facility] [place] [address] Erythrocyte distribution width (RBC) [Ratio] 12.7 % Normal 11.5-15.0 [facility] Comment on above: Performed By: #### L [id number] #### [facility] (BEAKER) [address] [facility] [place] [address] ERYTHROCYTE MEAN CORPUSCULAR HEMOGLOBIN CONCENTRATION (G/DL) BY AUTOMATED 36.5 g/dL High 32.0-35.0 [facility] Comment on above: Performed By: #### L [id number] #### [facility] (BEAKER) [address] [place] [address] Hematocrit (Bld) [Volume fraction] 33.7 % Low 36.0-48.0 [facility] Comment on above: Performed By: #### L [id number] #### [facility] ([facility]) [address] [place] [address] Hemoglobin (Bld) [Mass/Vol] 12.3 g/dL Normal 12.0-15.0 [facility] Comment on above: Performed By: #### L [id number] #### [facility] ([facility]) [address] [place] [address] Immature granulocytes (Bld) [#/Vol] 0.09 10*3/uL Normal 0.00-0.20 [facility] Comment on above: Performed By: #### L [id number] #### [facility] ([facility]) [address] [place] [address] Immature granulocytes/100 WBC (Bld) 0.6 % Normal 0.0-1.0 [facility] Comment on above: Performed By: #### L [id number] #### [facility] ([facility]) [address] [place] [address] Lymphocytes (Bld) [#/Vol] 0.44 10*3/uL Low 1.20-4.00 [facility] Comment on above: Performed By: #### L [id number] #### [facility] ([facility]) [address] [place] [address] Lymphocytes/100 WBC (Bld) 3.0 % Low 20.0-45.0 [facility] Comment on above: Performed By: #### L [id number] #### [facility] ([facility]) [address] [place] [address] MCH (RBC) [Entitic mass] 31.1 pg Normal 27.0-33.0 [facility] Comment on above: Performed By: #### L [id number] #### [facility] (BEAKER) [address] [place] [address] MCV (RBC) [Entitic vol] 85.1 fL Normal 82.0-98.0 [facility] Comment on above: Performed By: #### L [id number] #### [facility] (BEAKER) [address] [place] [address] Monocytes (Bld) [#/Vol] 0.25 10*3/uL Normal 0.10-1.00 [facility] Comment on above: Performed By: #### L [id number] #### [facility] ([facility]) [address] [place] [address] Monocytes/100 WBC (Bld) 1.7 % Low 5.0-12.0 [facility] Comment on above: Performed By: #### L [id number] #### [facility] ([facility]) [address] [place] [address] Neutrophils (Bld) [#/Vol] 13.63 10*3/uL High 1.60-7.60 [facility] Comment on above: Performed By: #### L [id number] #### [facility] ([facility]) [address] [place] [address] Neutrophils/100 WBC (Bld) 94.6 % High 40.0-72.0 [facility] Comment on above: Performed By: #### L [id number] #### [facility] ([facility]) [address] [place] [address] NRBC (PER 100 WBCS) BY AUTOMATED COUNT 0.0 % Normal 0 [facility] Comment on above: Performed By: #### L [id number] #### [facility] ([facility]) [address] [place] [address] PLATELETS (10*3/UL) IN BLOOD AUTOMATED COUNT 302 10*3/uL Normal 150-400 [facility] Comment on above: Performed By: #### L [id number] #### [facility] (BEAKER) [address] [place] [address] RBC (Bld) [#/Vol] 3.96 10*6/uL Normal 3.80-5.00 [facility] Comment on above: Performed By: #### L [id number] #### [facility] ([facility]) [address] [place] [address] WBC (Bld) [#/Vol] 14.43 10*3/uL High 4.00-10.[address] [facility] Comment on above: Performed By: #### L [id number] #### [facility] ([facility]) [address] [place] [address] CHLAMYDIA TRACHOMATIS AND NE ISSERIA GONORRHEA, TMAon 12-15-2022 CHLAMYDIA TRACHOMATIS DNA PROBE (PRESENCE) IN UNSP SPEC Negative Normal Negative [facility] Comment on above: Result Comment: No C hlamydia trachomatis rRNA Detected. The Aptima Combo 2 Assay is a FDA approved target amplification nucleic acid probe test that utilizes target capture for the in vitro qualitative detection and differentiation of ribosomal RNA (rRNA) from Chlamydia trachomatis (CT) and/or Neisseria gonorrhoeae (GC) to aid the diagnosis of chlamydial and/or gonococcal urogenital disease using the Charlotte System. The Aptima Combo 2 Assay involves target capture, target amplification by Billboard Erector Helper-Mediated Amplification (TMA), and the detection of the amplification products (amplicon) by the Hybridization Protection Assay (HPA). The internal process controls of the Charlotte System monitor the target capture, amplification, and detection steps of the assay, this is not intended to control for sampling adequacy. Performed By: #### L [id number] #### [facility] ([facility]) [address] [place] [address] Performed By: #### L [id number] ####[facility] ([facility])[address] [place] [address] NEISSERIA GONORRHOEAE DNA PROBE (PRESENCE) IN UNSP SPEC Negative Normal Negative [facility] Comment on above: Result Comment: No N eisseria gonorrhoeae rRNA Detected. The Aptima Combo 2 Assay is a FDA approved target amplification nucleic acid probe test that utilizes target capture for the in vitro qualitative detection and differentiation of ribosomal RNA (rRNA) from Chlamydia trachomatis (CT) and/or Neisseria gonorrhoeae (GC) to aid the diagnosis of chlamydial and/or gonococcal urogenital disease using the Charlotte System. The Aptima Combo 2 Assay involves target capture, target amplification by Billboard Erector Helper-Mediated Amplification (TMA), and the detection of the amplification products (amplicon) by the Hybridization Protection Assay (HPA). The internal process controls of the Charlotte System monitor the target capture, amplification, and detection steps of the assay, this is not intended to control for sampling adequacy. Performed By: #### L [id number] #### [facility] ([facility]) [address] [place] [address] Performed By: #### L [id number] ####[facility] ([facility])[address] [facility] [place] [address] COMPREHENSIVE METABOLIC PANE Gerardo 12-15-2022 Albumin [Mass/Vol] 2.3 g/dL Low 3.5-5.7 [facility] Comment on above: Performed By: #### L [id number] #### [facility] ([facility]) [address] [place] [address] ALP [Catalytic activity/Vol] 48 U/L Normal 34-104 [facility] Comment on above: Performed By: #### L [id number] #### [facility] ([facility]) [address] [place] [address] ALT [Catalytic activity/Vol] 14 U/L Normal 7-52 [facility] Comment on above: Performed By: #### L [id number] #### [facility] ([facility]) [address] [place] [address] Anion gap [Moles/Vol] 11 mmol/L Normal 7-20 [facility] Comment on above: Performed By: #### L [id number] #### [facility] ([facility]) [address] [address] AST [Catalytic activity/Vol] 14 U/L Normal 13-39 [facility] Comment on above: Performed By: #### L [id number] #### [facility] ([facility]) [address] [place] [address] Bilirubin [Mass/Vol] 0.4 mg/dL Normal 0.3-1.[address] [facility] Comment on above: Performed By: #### L [id number] #### [facility] ([facility]) [address] [place] [address] Calcium [Mass/Vol] 7.8 mg/dL Low 8.6-10.3 [facility] Comment on above: Performed By: #### L [id number] #### [facility] ([facility]) [address] [place] [address] Chloride [Moles/Vol] 93 mmol/L Low 98-[address] [facility] Comment on above: Performed By: #### L [id number] #### [facility] ([facility]) [address] [place] [address] CO2 [Moles/Vol] 30 mmol/L Normal 21-31 [facility] Comment on above: Performed By: #### L [id number] #### [facility] ([facility]) [address] [place] [address] Creatinine [Mass/Vol] 1.36 mg/dL High 0.60-1.20 [facility] Comment on above: Performed By: #### L [id number] #### [facility] ([facility]) [address] [place] [address] GLOMERULAR FILTRATION RATE ML/MIN/1.73 SQ M.PREDICTED 53.4 mL/min/1.73m*2 Low >60.0 [facility] Comment on above: Result Comment: The [facility]???s estimated glomerular filtration rate (eGFR) will no [...] individuals. Performed By: #### L [id number] #### [facility] ([facility]) [address] [place] [address] Glucose [Mass/Vol] 135 mg/dL High 70-100 [facility] Comment on above: Performed By: #### L [id number] #### [facility] ([facility]) [address] [place] [address] Potassium [Moles/Vol] 4.0 mmol/L Normal 3.5-5.1 [facility] Comment on above: Performed By: #### L [id number] #### [facility] ([facility]) [address] [place] [address] Protein [Mass/Vol] 4.8 g/dL Low 6.0-8.3 [facility] Comment on above: Performed By: #### L [id number] #### [facility] ([facility]) [address] [place] [address] Sodium [Moles/Vol] 130 mmol/L Low 136-145 [facility] Comment on above: Performed By: #### L [id number] #### [facility] ([facility]) [address] [place] [address] Urea nitrogen [Mass/Vol] 29 mg/dL High 7-25 [facility] Comment on above: Performed By: #### L [id number] #### [facility] ([facility]) [address] [place] [address] UREA NITROGEN/CREATININE (MASS RATIO) IN SER/PLAS 21.3 Normal [facility] Comment on above: Performed By: #### L [id number] #### [facility] ([facility]) [address] [place] [address] Consulton 12-15-2022 Consult [id number] Blanca Rudolph 1990 F Date Provider Department Laura 12/15/2022 ORIN VERNON [facility] Ena Heal No family history on file Level of Service:79395 MT OFFICE/OUTPATIENT NEW MODERATE MDM 45-59 MINUTES Normal [facility] HEPATITIS A ANTIBODY, TOTALo n 12-15-2022 HEPATITIS A VIRUS AB PRESENCE IN SER BY IMMUNOASSAY Negative Normal Negative [facility] Comment on above: Result Comment: Perf ormed By: [employer] [address] [place] [address] Childhood Teacher: Ari Seay MD, PhD CLIA Number: [id number] Performed By: #### L [id number] #### [facility] [address] [place] [address] HEPATITIS B CORE ANTIBODY, T OTALon 12-15-2022 HEPATITIS B VIRUS CORE AB (PRESENCE) IN SER/PLAS BY IMM Non-Reactive Normal Nonreactive [facility] Comment on above: Performed By: #### L [id number] #### [facility] ([facility]) [address] [place] [address] HEPATITIS B SURFACE ANTIBODY QUANTon 12-15-2022 HEPATITIS B VIRUS SURFACE AB (MIU/ML) IN SERUM 3.53 mIU/mL Normal [facility] Comment on above: Result Comment: INTE RPRETATION: NONREACTIVE<8.00 mIU/mL INDETERMINATE8.00 - 12.00 mIU/mL REACTIVE>12 mIU/mL Performed By: #### L [id number] #### [facility] ([facility]) [address] [place] [address] HEPATITIS B SURFACE ANTIGENo n 12-15-2022 HEPATITIS B VIRUS SURFACE AG PRESENCE IN SERUM Non-Reactive Normal Nonreactive [facility] Comment on above: Performed By: #### L [id number] #### [facility] ([facility]) [address] [place] [address] HEPATITIS C ANTIBODYon 12-15 HEPATITIS C VIRUS AB PRESENCE IN SERUM Non-Reactive Normal Nonreactive [facility] Comment on above: Performed By: #### L [id number] #### [facility] ([facility]) [address] [place] [address] HIV COMBO 4Gon 12-15-2022 HIV COMBO 4G Negative Normal Negative [facility] Comment on above: Performed By: #### L [id number] #### [facility] ([facility]) [address] [place] [address] URINALYSISon 12-15-2022 BILIRUBIN, TOTAL PRESENCE IN URINE Negative Normal Negative [facility] Comment on above: Performed By: #### L [id number] #### [facility] ([facility]) [address] [place] [address] Clarity (U) Clear Normal Clear [facility] Comment on above: Performed By: #### L [id number] #### [facility] ([facility]) [address] [place] [address] Color (U) Yellow Normal Yellow [facility] Comment on above: Performed By: #### L [id number] #### [facility] ([facility]) [address] [place] [address] Glucose (U) [Mass/Vol] Negative Normal Negative [facility] Comment on above: Performed By: #### L [id number] #### [facility] ([facility]) [address] [place] [address] HEMOGLOBIN PRESENCE IN URINE Moderate Abnormal Negative [facility] Comment on above: Performed By: #### L [id number] #### [facility] ([facility]) [address] [place] [address] Ketones Ql (U) Negative Normal Negative [facility] Comment on above: Performed By: #### L [id number] #### [facility] ([facility]) [address] [place] [address] LEUKOCYTE ESTERASE PRESENCE IN URINE BY TEST STRIP Negative Normal Negative [facility] Comment on above: Performed By: #### L [id number] #### [facility] ([facility]) [address] [place] [address] NITRITE PRESENCE IN URINE Negative Normal Negative [facility] Comment on above: Performed By: #### L [id number] #### [facility] ([facility]) [address] [place] [address] pH (U) 6.0 [pH] Normal 5.0-8.0 [facility] Comment on above: Performed By: #### L [id number] #### [facility] (BEAKER) [address] [place] [address] Protein (U) [Mass/Vol] mg/dL Abnormal Negative [facility] Comment on above: Performed By: #### L [id number] #### [facility] (BEAKER) [address] [place] [address] Specific gravity (U) [Rel density] 1.004 Low 1.015-1.020 [facility] Comment on above: Performed By: #### L [id number] #### [facility] (BEAKER) [address] [place] [address] URINALYSIS MICROSCOPICon CASTS IN URINE Normal [facility] Comment on above: Performed By: #### L [id number] #### [facility] (BEAKER) [address] [place] [address] CRYSTALS IN URINE Normal [facility] Comment on above: Performed By: #### L [id number] #### [facility] (BEAKER) [address] [place] [address] RBC (#/HPF) IN URINE SEDIMENT 11-20 Abnormal None Seen [facility] Comment on above: Performed By: #### L [id number] #### [facility] (BEAKER) [address] [place] [address] SQUAMOUS EPITHELIAL CELLS (#/HPF) IN URINE SEDIMENT Few Abnormal None Seen, Occasional [facility] Comment on above: Performed By: #### L [id number] #### [facility] (BEAKER) [address] [place] [address] WBC (LEUKOCYTE) (#/HPF) IN URINE SEDIMENT 0-2 Abnormal None Seen [facility] Comment on above: Performed By: #### L [id number] #### [facility] (BEAKER) [address] [place] [address] Documentationon 12-05-2022 Documentation [id number] Blanca Rudolph 1990 F Date Provider Department Center 12/05/2022 Melissa-TEAGAN LYONS [facility] Ena Heal No family history on file Reason for Visit and Comments: Luca Rx: [facility] [Other] - RX from [facility] Inpatient Normal [facility] Orders Onlyon 12-04-2022 Orders Only [id number] Blanca Rudolph 1990 F Date Provider Department Center 12/04/2022 MITALI KIRK [facility] No family history on file Normal [facility] Transfer Inon 09-07-2022 Transfer In [id number] Normal [facility] Ambulatory Visit Summaryon 0 09-05-2022 Ambulatory Visit Summary THOR RUDOLPHA Toshia :1990 Visit Date:09/05/2022 Ambulatory Visit Instructions Your Diagnosis Frequent UTI Tests Performed Urnls Dip Stick Auto w/o Microscopy POC 17002 Your Care Team Attending Physician - CYNTHIA [...] Urnls Dip Stick Auto w/o Microscopy POC 27038 (09/05/2022) Bilirubin Urine Dipstick - Negative Blood Urine Dipstick - Trace-intact Glucose Urine Dipstick - Negative Ketones Urine Dipstick - Negative Leukocytes Urine Dipstick - Negative Nitrite Urine Dipstick - Negative Protein Urine Dipstick - Negative Specific [place] Urine Dipstick - 1.020 Urine Appearance Urine [...] ADHD Normal [facility] Patient Educationon 09-06-19 Patient Education Obstetrics and [...] this condition includes: ? Antibiotic medicine. ? Tkgs-wnz-zjsicma medicines to treat discomfort. ? Drinking enough [...] these instructions at home: Medicines ? Take fgwr-wuv-hknocxo and prescription medicines only as told by [...] included)... Normal [facility] Coding Summary.on 08-16-2022 Coding Summary. CD:[id number] W w+PGhlYWQ+YZ7UQEZhX61 stCUayK0qN1EXUHfKHdmq JDLLPDeMIrVqvyLkBL5ai XNjZXJu IC8+XB7bJLBeTbfhkHSso 2J3xSG3S26kow5kHLwnkV W6TCDtOwNhotlho8mzxQb 6IDcuNmluOyBt HOBjzT19OET3rG81As62f GQjzRWzg2mvzBy3WuJkRM VvBWB7yVmeRRlur5HyJVV iH41kuZMvj7Q9 IMEjfLyjkODnBxGiuPL0b B0vRCtbazkuc4rbqdbnYf p6uu10vYTff7Z5uKD1J9E ixzF8SBDxkPAq GvjuiTHSxM5mkmatn1agl tvuQgXaGQZgQGc3YEb6OQ MzaSrhDdOkCH71VDL1IRR zfpUiX3XeJLBb tHpfDyZ1d8V1Pe4NY5DGQ jdcX2MCJVGYNThjdWF+PC 52tw96C0VwCumsGxi0WYQ vQQN1iRL0lU6d QSPeAAacu2C7cVX6V8Azo bWdmo2js6suIMMoGCxsG7 5qjQMsl0M6DKIlfSO2PLL llZknPtGzeV08 Oyc+DFMnjZjkv0KcWtfzh 5rdi8laeIa0MvbiPCSjap NngGhyOHF1v2VpQq6eSTT eoGV6kBL9cO3v PfCqMxZ6BTbaS754BeHhr SUjReuwI31dH2VdeIX+PH FuWdm1UZRuhAmkQV5sN3A hZGRpbmctbGVm sDueLG4kRNFeztpuAAPvp L9qCEMgU6z4TqHnIuY1IR meP1FcKOEnajvmLj42bK1 hGeMjYlK2FXwg Y1XlgqE2DXFmpBGhBYchQ IE7N36gr2T5OBSyGJVnLP C6mNJ8uF8ymNionrgvzWZ mdDsgdmVydGlj FIreLWmgU975GOKleNwuD kNvZGluZyBEYXRlOiAgMD QvMTkvMjAyMzwvdGQ+PHR jFIA7kLeyATLm nWChMAeuXi2xrJakzRfnQ H9eHWBfpkmvZGXmpD1rQU DhuRQjgEdbCJ1mSENdccw ym227OcChGZT6 YLOjhITgL9RzhW4yAgAyL XFyYQVsP2CgxYErOYuuX8 05DJsdAgS0PPAoyoXsN7F sLWFsaWduOiB0 l3S1Sq9Gr8NiyzftZ8Ytv PSiJyViPzimPOb7A7NmKd wvdHI+XX89AECnZM17IUo 0DPT7wMauEKqd KFUwO3DfgK3yPvHzGGTkS GRkOyc+PHRhYmxlIHdpZH RoPScxMDAlJyBzdHlsZT0 fLv0yQTDgOSVv nPyfvVKkUeIuv2gvDKVrZ NbgKP5cyUjgR2LjvDC0YJ Roj6q4Ts83U78mB2CcjBO +JVDhgFT0fFZ4 fR0aUhInIuW9FYzfC039V zVwvYNbYircd5tuq2kfbT h0CmV7EBQpghWscDlpYQT 6s7McEm59Z46u IHdpZHRoPSIxNSUiIHZhb Elycn5ssM8vGy1+PGNvbC X0qOI3sR4eBnAxScH9SLt fY607HdZylNZa Khopb7jzj3sajAi1IhKzG SXicuTpdZrdKQO5l7UmQn 50Y3AapXoii4JkDus8bg9 9mCFsb6A0lOP1 H8BoHNKuffzxhYXscWoyT Y3wKCHjetxpZFNjgS9pIV WxC8j6JbQaDmZ5XXsnN3D cvzK8UDIsqEXc WBMgmGNKdY0gfuxqx5nkr hssZmKmMDRaNIr3OSd3SS SjgKxwBeGhHHI1SdQ8RBW 9rXBtnH5qbPbt yafhsP5iZui+WGH2yLPmu XIIFG6lRfrqgUV+PHRkIH Z3uYwqXQfuAYAzpE9nBST wW6t4FmGvGfA2 UAwvV8HccjK6XWPwmHMsD VNklJOGeM2vznhhc1nhjp jiYuWiRCHqIZo5MXj5KUC saWduOiBsZWZ0 FnV6WAA2pFWeqP7wpFzgn ansqO6dOix+QmlydGggRG H5SKq9X7NtSin3XCFgnIw eAK1ngVVxUHyf Ye2uxHuytBzcSX6nAFOhq uqoo736FbSir9ejRNKubT KuHGryKNA1P56uo0K9DKN wGSZkLDC9gNH3 lY7kpNiqqippgXEglOszi uAliPzhZGmcMAyaO202QA PveFvqVwDvHSo9C1AlKgs 3VYPtsOqgBV5v mTFjJXgjFp1fnWjakRdlX T3eDYVqbzrlh778PdTkn0 fxQNTjoJQcJPhdXJC5F84 ut3P0JJOeDKFe TTG8kAV5pU3wgUqmfzzzn GVmdDsgdmVydGljYWwtYW thR485LYAaaWosStYuzKp 3D9MrCrt0NJVm qIusPD8jhSSyQQqdFz3ca KhmwZneQJ0zPDDeteeaf8 43IjFmg3okOZQczDZsULy dWML8F09cz9M2 CQKgULQqGTH3fGD3rC7xa GlnbjogbGVmdDsgdmVydG xqMIttBKfnA762ILOjdOm nPlBhdGllbnQg ZIumJWd6O1EvGtaagWT+P N06UDYcSC19wBQbhNEaw3 lihVp8LqZaTSGyCLA3wOr dOOome8ZlXFXr X95aeWZvr2Y3IHSbmTjer WJfCfLsfVK6gG4zCRpiwh vat9sczegxSmzwy2eple9 7xP48J03eMUtn ZHRoPSIzMCUiIHZhbGlnb i3etV6wTf8+IUYemEG8aI O4aR8vLOYxRvG4WAvtM55 9InRvcCIvPjxj b9yyc3wufGv9WuB1DHAuq cYqeXyqMNZ9k3AoMr30R8 9sIHdpZHRoPSIyMCUiIHZ owOfclz0tkB5q Ii8+GQWkyIR4zAW0dU7iV eBtNtE4YFdyI464MuUmuW CsNeovM07kG0DfdEX+PHR vSnd5WFKfnCng NF6ikKSnYDlcVo6xWUN2H pRfWcQbJAqnF5ScVTYmog mesfhtuXV8QUXyZJOgkY2 2Dv1uzUkyASBn nEDBnI0gmdljp3maqnvuT dLhEPPeRKv1SDd6CAKmoX otTjDoPXU2JmN6SUX2nRI mlP0ksXlxektq oV3pU6XlTZUnseasHf79j V1nBgFdTmT2KAhyCin+R0 QQW1iYUJGNKKSPY6KFAE4 2Z8ElZfr0CXVl qVydLB2yxATfOUpoJb7iw LahbNxjTQ3bPKKfsmsfWJ UtqG0wAQNkrMIifNyoKD2 aARMhqjuik530 NmJfAXA5UZZqkCVlK8Oyt O9pShUlQKOlUDBdZ4HtbC WyNMdjM221RSxvIrE0RSE lctToY7EuCIGq qOxmEvB9t7R4Io3vWy5eY I3dWXqhKW20OI16rMLir3 G1kFL5Y8JbAMGbvsamsae jfTV0BUEqGWGi rT62uRVpYZrlWt2yj1C8b 006MILqGJGujC15Gk6ovB viRIPrtKRFjJ2ewwclx3y vcjogIzAwMDAw RQy6FXl3SKMkbYepXiUdG LO2MnR7VTN2fLLbhL0lbS awndpboL1iKbn+MzAgWWV hfnZ3K4XjNal7 TKPknHikSF5rzBXjKQrmG j0bdCrvuJalRX7wTGNdzs zoKBWrlC0aYSHcmWSpnPs jDP2uUVPwtajv f142KlVuMVA1UNLztWCnH 1CgnU0iTsEmYJSvXNNpF5 LplECzJKodG077IAxlMkR 8PHGyeqDxU9Pn UTFeiNxwEfS2t9X6Wi2JH O5kiFG3U6BkPbj5DAJrkZ xnHJ3pyLKkNKmjPz7rbAx lcTpuJG1fGLUh thznOMHzyQ4nZGTufPXjz UzgLH1kJNYoobgzd369Mf JxLUF3PNFrlXAwS8XzrG1 yOiAjMDAwMDAw A0LfpKHuUTclF041FGtwL eO4AANxbpElO2ViKUGesV pzTkZ1s0R8Hc5BqVPnUBP eRM97CG05DN15 W5EtMcpmvBZmmEB+PHRhY mxlIHdpZHRoPScxMDAlJy IpeMkxRR4uEo5fOSJyIFV vbGxhcHNlOiBj t5jcSXPtPWotVC0hhWysP 5FrhPI9QRHct1v8Fx01F8 5hS7NliZM+ZUFbuAD2hNZ 5zF6hEpCqKcM6 YYufN241EqTyaGEfDvgsh 9hme4pvgKf1TiLhZQZjhp CwqIgjNZL7f8CmMi40C38 sIHdpZHRoPSIy ECBtWPDslCvrmt8fwZ2nS i8+HAAgkEQ1eGP9xJ7mSt AlBfU4JMczJ753QwXxgVL tXdwlI24iP4Jg dXA+RBPpIoo8YVHclAsiQ E5udNDjSDxbHz5nJAN9Mk LuDyPhXRbmM4ZvDDHzauc cuefibPG7VEFv FGAwiX47Vg4qhWqvZn0gF SHyUWA5HLBkhYQeQ7GezH 6oCaToJJDaMXYxL6CqvHS pMPuqB534YUfy YhM1UNWrtgYgJ5IwUQQuv DrwQdM8k3M5Up4IuHdimK RzMZ6lSiHkPIq9U4UvBys 1FOGkwQdqFH1l vMAuVOagJn3ewBqtaLaaP U5bIRPfbqwer777NwPyq1 ivDAKuaECjJWngMQU9I38 vi8E2KJYjKZVb JTY6bFG0gW9qzStaxpwiy GVmdDsgdmVydGljYWwtYW ijW961PSTfnFpzSwZPPnc 1E3BjLkh1EGBz xQotOJ7ddGKuCFdzNw2jl KgfvYtvDX9vHKQcnkzbs7 94KtDcf5rzLVXzuKOpYXp gLMS1R95jk7A7 UPZwVCKoQEX4gFZ6yP8ae GlnbjogbGVmdDsgdmVydG esIPwkAEqrS526VQGfzWg sVl5IZwo2I4Sy Uol4RZIpzYyjYX5ydTOaX NciGj1vgEgxsBzqEC0rRK Uiqrdvp481MmWha4bfCZX wcHQgVGltZXM7 O77ew1H9IOKiIYTtLGK7j IT1wI1doJlspclobYFowG ceduEdtFlgWTjwRShhI77 6IHRvcDsnPlBh eWVyOjwvdGQ+NR17xc66F 1XnFcpaHlz9LNRySRV5aL F7gI6aONMyKMewt1L8cQW 2I2YichJcfk1c y5jrSKMr (more content not included)... Normal [facility] Reminderson 08-14-2022 Reminders - From: Ginny Lucas To: [facility] [employer]; Sent: 08/14/2022 08:53:19 EDT Show up: 10/14/2022 08:52:00 EDT Subject: Ambulatory Reminder Reminder/Recall Call patient to schedule a 3 Month F/U with Katrin in October. Normal [facility] BMPon 08-10-2022 Anion gap [Moles/Vol] 11 mmol/L Normal -16 [facility] Comment on above: Performed By: #### 2 [id number], [id number], [id number], [id number] #### [facility] [address] [place] [address] Calcium [Mass/Vol] 8.3 mg/dL Low 8.9-11.1 [facility] Comment on above: Performed By: #### 2 [id number], 1063708, [id number], [id number] #### [facility] [address] [place] [address] Chloride [Moles/Vol] 104 mmol/L Normal 101-111 [facility] Comment on above: Performed By: #### 2 [id number], 3860158, [id number], [id number] #### [facility] [address] [place] [address] CO2 [Moles/Vol] 27 mmol/L Normal 21-31 [facility] Comment on above: Performed By: #### 2 279484, 7569262, [id number], [id number] #### [facility] [address] [place] [address] Creatinine [Mass/Vol] 0.7 mg/dL Normal 0.5-1.3 [facility] Comment on above: Performed By: #### 2 014127, 5838885, 3298709, [id number] #### [facility] [address] [place] [address] Glucose [Mass/Vol] 95 mg/dL Normal 55-199 [facility] Comment on above: Result Comment: If t his glucose result represents a fasting glucose, interpretation should refer to the following reference range: 55-99 mg/dL Performed By: #### 2 507906, 7721137, 7797987, [id number] #### [facility] [address] [place] [address] Potassium [Moles/Vol] 3.6 mmol/L Normal 3.5-5.3 [facility] Comment on above: Performed By: #### 2 480264, 5189594, 2493077, [id number] #### [facility] [address] [place] [address] Sodium [Moles/Vol] 138 mmol/L Normal 135-145 [facility] Comment on above: Performed By: #### 2 981496, 9780052, 0248645, [id number] #### [facility] [address] [place] [address] Urea nitrogen [Mass/Vol] 12 mg/dL Normal 5-21 [facility] Comment on above: Performed By: #### 2 168882, 3851916, 2974672, [id number] #### [facility] [address] [place] [address] Urea nitrogen/Creatinine [Mass ratio] 17 No Units Normal 10-20 [facility] Comment on above: Performed By: #### 2 485901, 4129032, 4727944, [id number] #### [facility] [address] [place] [address] CHEMISTRYOrdered By: SYSTEM SYSTEM on 08-10-2022 Anion gap [Moles/Vol] 11 mmol/L Normal 6 - 16 mEq/L [facility] Calcium [Mass/Vol] 8.3 mg/dL Low 8.9 - 11. 1 mg/dL [facility] Chloride [Moles/Vol] 104 mmol/L Normal 101 - 1 11 mmol/L [facility] CO2 [Moles/Vol] 27 mmol/L Normal 21 - 31 mmol/L [facility] Cobalamin (Vitamin B12) [Mass/Vol] 279 pg/mL Normal 50 - 1500 pg/mL [facility] Creatinine [Mass/Vol] 0.7 mg/dL Normal 0.5 - 1.3 mg/dL [facility] GFR/1.73 sq M.predicted among blacks MDRD (S/P/Bld) [Vol rate/Area] mL/min/1.73 m2 Normal >=59mL/min/1.73 m2 [facility] [place] Chem S GFR/1.73 sq M.predicted among non-blacks MDRD (S/P/Bld) [Vol rate/Area] mL/min/1.73 m2 Normal >=59mL/min/1.73 m2 [facility] [place] Chem S Glucose [Mass/Vol] 95 mg/dL Normal 55 - 199 mg/dL [facility] Remisol Magnesium [Mass/Vol] 1.8 mg/dL Normal 1.3 - 2.4 mg/dL [facility] [place] Remisol Potassium [Moles/Vol] 3.6 mmol/L Normal 3.5 - 5.3 mmol/L [facility] [place] Remisol Sodium [Moles/Vol] 138 mmol/L Normal 135 - 145 mmol/L [facility] [place] Remisol Urea nitrogen [Mass/Vol] 12 mg/dL Normal 5 - 21 mg/dL [facility] [place] Remisol Urea nitrogen/Creatinine [Mass ratio] 17 mg/mg Normal 10 - 20 [facility] [place] Remisol Consent for Treatmenton 07-29 Consent for Treatment [id number]#1 .00CD:127 Normal [facility] Gastroenterology Office/Clin ic Noteon 08-10-2022 Gastroenterology Office/Clinic [...] day(s), # 90 cap(s), Refills(s) 1, Pharmacy: [facility] #[id number], 175, cm, 08/10/22 12:49:00 EDT, Height/Length Dosing, [...] included)... Normal [facility] Comment on above: Result Comment: Elec tronically Signed By: Katrin Resendiz CNP\.kike\Date and Time Signed: 08/10/22 13:03 EDT Magnesiumon 08-10-2022 Magnesium [Mass/Vol] 1.8 mg/dL Normal 1.3-2.4 [facility] Comment on above: Performed By: #### 2 [id number], 6105211, 3420611, [id number] #### [facility] [address] [place] [id number] Patient Educationon 08-11-19 Patient Education Gastroenterology Gastroesophageal [...] vinegar, hot sauces, and barbecue sauce. ? [place] fruit juices and citrus fruits, such as oranges, shirley, and limes. ? Tomato-based foods, such as red sauce, chili, salsa, and pizza with red sauce. ? Fried and fatty foods, such as donuts, armenian fries, potato chips, and high-fat dressings. ? [...] included)... Normal [facility] Vit B12on 08-10-2022 Cobalamin (Vitamin B12) [Mass/Vol] 279 pg/mL Normal 50-1500 [facility] Comment on above: Performed By: #### 2 382542, 6512196, 7990893, [id number] ####[facility] [address] [place] [address] eGFRon 08-10-2022 GFR/1.73 sq M.predicted among blacks MDRD (S/P/Bld) [Vol rate/Area] mL/min/{1.73_m2} Normal >=59 [facility] Comment on above: Order Comment: Order added by Discern Expert. Result Comment: eGFR is race adjusted. AA=. Performed By: #### 2 846669, 1005936, 5041551, [id number] #### [facility] Laboratory [address] [place] [address] GFR/1.73 sq M.predicted among non-blacks MDRD (S/P/Bld) [Vol rate/Area] mL/min/{1.73_m2} Normal >=59 [facility] Comment on above: Order Comment: Order added by Discern Expert. Result Comment: Cell Tester michele kidney disease could be indicated at eGFR's of less than 60 mL/min/1.73m2. Kidney failure is indicated at less than 15 mL/min/1.73m2. Performed By: #### 2 874080, 9099355, 2828701, [id number] #### [facility] [address] [place] [address] Progress Note-Physicianon Progress Note-Physician Patient: BLANCA RUDOLPH Age: 31 years Sex: Female : 1990 Associated Diagnoses: None Author: Brett Pratt MD Postoperative Information Postoperative disposition: Postoperative disposition: To [...] Ambulatory Surgery Unit, and To home ). [facility] Comment on above: Result Comment: Elec tronically Signed By: Suresh XIONG, Brett Tripathi\.br\Date and Time Signed: 07/20/22 13:21 EDT Coding Summary.on 07-18-2022 Coding Summary. CD:[id number] G h0bWw+PGhlYWQ+IZ5ADDY aZ97ncEWfxY7vK8ICBWtB SywgQVBQTElOSyIgbmFtZ I0wiGJmXLBb IC8+LU7yPVMiDvqejGKnd 5I5zSD1A46wah9uQCdooF Q8XYKbYtOjfanky1livFg 6IDcuNmluOyBt NXPfoE30HFK3fH99Yx08r TZuzBOel5lvjDs7DmVeKZ SqPWQ4tTidYVxgx1TaLBM tX40knOWaf1K6 BOMhbHeexFAgJyKthPB2g K5fHBvwfxmuf7eftaomWf j9pn73iIQdu8S6pPS6Q6J meyX2JMInxAEm UvnloPISxQ8dukhsd2yhu zyiFiRtZGQnECk3QKo0HA GtsWecGlOoBI40MYO6QTR poiPxJ4TjCGSp wOviPzQ4v2G4Uv9CD6VOH hadL3ILMHFQNMjjeNF+PC 88na91Z9FpAcymRqe6DUA dIGB6uQF1iG5u IJDvAOaly5N2qAU7S7Wde pPzfb0gi7obVGWtUPxyC2 4uxHWnu7U3JQKatPL4KCS ejPepJkXoxJ53 Oyc+NAMwyGsfe6KrMnpco 1ydk8cqkEn9EtnmHCLgel EjdKivZJJ1g6AgEc4aKSK goJQ8oIE1cR8t LqHiUoD7ZVckS737AcIsu RPjWintA21fR2NegPR+PH EeXcu5CCLgiWtsEW1rC5Z hZGRpbmctbGVm rNmbYE5jQJMwkfmxTCMgs K8eWYTbN5j7TlJeLlH1QK veE6AwJPVghnnwVs08sV9 qDsRqFgT7SMhk J8YsuqH4HXOknJLaXOooG ON5F18ed6D5LZApVSJvPH Q5rOD2oQ3uhEeqdnguwNS mdDsgdmVydGlj JEuqGBlpO538GJYvzLcfJ kNvZGluZyBEYXRlOiAgMD MvMjEvMjAyMzwvdGQ+PHR wIBW0wKocQTVn nLMcYQcrYx9tpMjgiCqjG K0vMXXmkxqlQRDqcG8jPM BseRBgbIuhUF5vYYStaqm yq109FeDpLNB4 NXSnnLLlB0QecU4pAfGbE NTcSDLtU5TgzJBtBXveI7 02TUskRfJ4WOIghsOmW9N sLWFsaWduOiB0 r9A3Bi2Qm9CfyklxZ1Syu BIuHtDtNtxtTYg7X1DsEf wvdHI+SU48AJCvXR88BCm 9BVX3vAnmSCxy MEPqS7GreB5lOhVwBXPwP GRkOyc+PHRhYmxlIHdpZH RoPScxMDAlJyBzdHlsZT0 sPf5cLMMaGAUk pBsfkFJeRpGjt6hcLGDzV PcaDM4zfXpnI8DdkGH6QK Nsk2w9Cb82R60uF9NdjAY +HBQbgVU1iGC8 vQ6pVlOlQgB8TQfbI981I cUkaXYxKoeyc6yzo6qtuJ y0NvF3BPCawqJhrIqoYAZ 1u5IqKd62N82m IHdpZHRoPSIxNSUiIHZhb Ximkc5nzN4zEl6+PGNvbC B6aQF1vL9gOnQnHtE3LQb oB851BlIpsECa Fpvbu4inc4wscAi6NmQuV WNjwqJvmZgiFLF4n4XoJh 20Y7AwmJefj8JbIgm4ah3 1rPJao1E4jBP5 S0NsQCJekakcoVJusCmkJ N6iJTFrsikpTPYpaA2yWN LgK2c9IbKcZeS8XLmqH2G yfsK2LZZniTCd IRVneVSAuH4lvgqvp8klp qdbIcIiWNRjJAk0OXa1TC KhpCmqAwPxNIQ1QcH3UHS 2uQFnpF4rqSlb lrshhR5rXga+JZB3eBMqm SAWYU5tUvzzxYX+PHRkIH L2xGhyBAryMRIpyE2gOQB gM7v1LrFlUgQ2 KWjkW4IzexE2XJZdoQHuJ LGkkZKFzE7rgugrb9eqor paYjCuFGDcOHc3UHi5XTB saWduOiBsZWZ0 NfJ4LMA3xAAlvD1sjMmqq ckobG4tJnb+QmlydGggRG V1HBu5K4AnGvz8LUOjoHc cKU9pyJEeDGqi Iu9etNkhiSdgQM9xFTHdn pngn867HyRvk8oiQLCvaP ElBGinCMV1H71us8N1NLX nKZXjYFD1tLU3 dP2jjBzfjpdqgABwaYzab cGnuBdcVMfgZKaqX903TX ImzPjuIyQiIZo6F0JsSdn 2IJCtfAjhTX4u aKQwBYshIo4qbBrfoKxbD P5tKFEtlamzc839ExItl0 wvHCWpcSEwJRbwLZH1L53 te4C6ZMOwQVNz TRR1yJJ6tS5ezCfkomybp GVmdDsgdmVydGljYWwtYW rhE998GZUsuRmqZsWjoBd 9W0KfCqn5BERs eLbdFN0zjIXwKSokOm0dc PbsdGovID0gTOTjlsaxm9 90ZmKvk5kbMYSxbCJoOPz kQPA8H12rp4I4 MSQhZXJrCVD5wAD0tV1rr GlnbjogbGVmdDsgdmVydG noNCzqGDlwF439EXCdiCf nPlBhdGllbnQg ZMglVGr4J7GcRnblsXL+P U63HJQgTB87gONfmXShd5 ogvHh4BwFiFREuCVC1uWz sYWzhq9BlKHGz K79goPNpa2Y0LGOwpJfqr AYpPbVbdSM3dQ1bMNqqik rwk9wpaezqUisht1ivta5 6qD20Z62rOAgv ZHRoPSIzMCUiIHZhbGlnb q0vjN3vQl0+TTHxkWT6dT Q1sC0qDBMmOnC2VHqbT53 9InRvcCIvPjxj u5opz6ojvEv8AhT9PUBgg tFuxTpcEEQ8i2AlXu96I9 9sIHdpZHRoPSIyMCUiIHZ bgXizib7blB0i Ii8+POXkdMH2bZS9qE8xO wRhRtZ0SMbyF145QzPfpR UkHuzvB22fF4QphJS+PHR hZft5BITfvGdp VL0aaVFvLYmbVm5pDVU9A zPyBoCxBXaqR4RzRLHwub dbltgpjAB7YTEcQYKsvR3 3Vi0rjOrcDRIq dOUMqB9mlbarc0watxykC pNfQCDrGNv7IPg7DUIczN yjOvMjZHJ8LbM0YJX1uHQ stT1kcRkejpci nN1xV0YtWMEjnddxEy20a W9tMcNeElY7ZGnkMcc+R0 WIE8qFRVLJLTTPE7GYYT9 7J2PmKsy4LHZq wUzmPL0uwLQrTRodZa0ab NnumOmmFO5kQQJsomgiJM FjqB0lEGQdrHCieDxxEV7 uNWHoxcwur181 OfYxOHN1RYOrhOEaI8Fed T3nLcYqTURfPCZeT8WjzO GqZRouL141SCxoPwM5FFO qgmYjU4RmGYDj sAocGuT9u1T3Vs1nKz7yN I2mJAhmTI35KC76oMLfc7 V7eUG2Y0IeMRCsxcfmfpl qpWS7TQSnDYIb rH13tLGlUGxlGm2su7Y4e 898TVOlMPVneO48Xw1pzY naSUCdpMQWcC3gscnbf7q vcjogIzAwMDAw AFd0QJm2GZIuoPilGwZwJ NZ6TzJ7CTD5zKVqkG1qiC ihmkzvjU8rZhi+MzAgWWV bqeW5E2JrSah9 OFCasBmaTK3xiVCpLMvvR p5jmPudkAjxZR9sFMQkci hkUIPenA5dMJDrjCQfuTu pSM2iCVRwxfsn e554MvSnPXF0MHAxiBTnP 0NhyC4aNsXjHECoDILfD1 YmlSHgJKoqV192KPjaUnS 7LGZlrxPqN0Ox BZOahSmqYyA2h9Z2Kd8PB G1xxDI7B0NkTpr9XONumG mfXU6kfULwJIxlWl1kkNv sjLjzTS4jRVRm fnytKOHvtT6aBQJaqCYrk KulMQ5iCLMtjcdqa088Ay DtOER1NGHenSWdK0CmsL3 yOiAjMDAwMDAw M2QowMKtETjrE796PHuxC hU3UQFgfzOyJ5QbACFigP tbCgU3r7A0Ok8UwETaICZ rIA41LI24JR73 U5LwQrtueSYjmHU+PHRhY mxlIHdpZHRoPScxMDAlJy EnfMnfGN6nUo7zMMFaGYR vbGxhcHNlOiBj q8yiULIiDOxmIH3lzEfcT 9TabYP7TVKwy0k5Dx81U0 6uL1MrfOP+HOSjoYU8oHC 4zV7oPhLfQwO8 CUpiX707GpNynCAvTszpe 2eua1tfsYf6TiNySKKhho QrlOunVRX8l5KpHk87I98 sIHdpZHRoPSIy QMJtIQHctNhgyx2asK1mD i8+BIKmsKS4nVA8yA5oOm SoHcD1WFqoJ157TsWwmWK nMcuiC80pX7Xg dXA+VHJzKww9TVWxoMfeM O8qwHHcUQjsJm4nQFJ8Nm ZxBfMeDGjiX0IgVDMpioo pjkowhFP6WUZl KFXmkV83Aq9gaCnuTl6sF SRaVHA8YBDgdCBmG9QsxU 3hLhFnNBWnXQIxZ3OhwIX wYTfrQ428AAkk HoX9UTJkmwDcO8AjAJAjp NlbObW0y5I5Ni7BnTpdcU RyCH4zZtYaRWf1E5GnLfq 6ZAJazWhiYZ0j jYRsKFslKu7fdFxhdFoiV M5tIJFbfltes514WdVrh8 yyZUAtjJQsPJpiJCJ9C66 rl5K2ECAqBEBu GFZ9aMN0oH8zoKiptalrf GVmdDsgdmVydGljYWwtYW tmJ892SOQuaLimWaDJBxj 3K1HhVye4PFNq uHbpVB7idBCvFJpmBy4ih GqdpXryNK8qXHJoxlxqj3 00ZsEgz9ylQPQfgVEkFRu vKNY3L72qj8N2 NRGvHXEtQOT4fXV6tK3jh GlnbjogbGVmdDsgdmVydG lgRWmoALelX813XJQfcAs oUl8FRil0S6Si Tak1RHDnwBzwYC7huULlL WguHk8yvDjjrKwjVG0oAD Hwiuwrr065IfYcc8mbXIR wcHQgVGltZXM7 U30be0G3OUZhAJAgXXW2c TO6cG7vrYgelcjsqCTdrT soayEodQbbZPnjYQgvN86 6IHRvcDsnPlBh eWVyOjwvdGQ+FF95um45D 5LbHzbwSbi0MJTqFBM3rZ I8xU6wFZQtHTwqi7H8mDB 6E8UfveOvgd0q b2xs (more content not included)... Normal [facility] General Surgery Office/Clini c Noteon 07-18-2022 General [...] patient or guardian consented to allow Bert Carl Oropeza to record this visit. EMILEE campaign marketing specialist and provider reviewed before signing. EMILEE: [...] vaccine 12/19/1994 R (more content not included)... [facility] Comment on above: Result Comment: Elec tronically Signed By: Hang XIONG, Miki Antunez\.br\Date and Time Signed: 07/18/22 14:00 EDT\.br\Electronically Co-Signed By: Yue Mcdonnell\.br\Date and Time Co-Signed: 07/17/22 12:40 EDT Consultation Noteon 07-18-19 Consultation Note [id number]#1 .00CD:127 [facility] IntraOperative Documentson 0 07-14-2022 IntraOperative Documents [id number]# 1.00CD:127 [facility] Coding Summary.on 07-13-2022 Coding Summary. CD:[id number] G h0bWw+PGhlYWQ+AO2YBVH uA64qwMBccJ5cL5ZDDIiZ SywgQVBQTElOSyIgbmFtZ N6ixWIgHMCh IC8+CA5tUKAkBkgbeWWci 7J1sGQ5J64etu5uRWujhA T8JZWiPfFtpxxeu2cpiUj 6IDcuNmluOyBt WKKviX14IZI5qP18Wc78a SIqqFKjz8notDu8UqIkIZ DfMGF8cFblCPkjg6YdRSL fW22qxIPcx6B1 WNLypYasbPKqIfVoqNS5j W3xCHyevrtid7lhllrmYs x1rx68xQUcx9Z8qKR4T6I zpzA5DXFqjEXf KvykoGOTzU4hotkew9cuo izxMlBoUKXuDZl8JGu7BN GxgRqaYuIdMF86NDK8RJC btaYyB6DvXVOv rPljGhP9a5S1Lf5OT4IQU eurP4TYZMHAGFyznPD+PC 86ml39M0SkXcwtPew8TME eKVA3bHE3iQ1c MGUfWDyos3K7aLZ7I5Jei pKmpw3qc1ctCWZiWDsrO5 3djDQke0P3BIXvnCA3DTX dlHshVvXhtC66 Oyc+RCYawLxmd2BsVojwy 1rfk9shyTs7KubkMYAchg UovXduQNV7g8YxTp6rRBW ugIU7jPG1oS3b SnVnAyU7YBphI868JrLfc VVfKeorH91qW3GmuTI+PH QmSsb4BLTjqLnnIO5hM5J hZGRpbmctbGVm wUxjDB7wPZTwtirpSBZba O2mKUOqE9j6AzRnQnL5JK jfF3EiVOMahvsdSn39nS1 fGbMjHiJ9TPhc Q2ElgtQ3RPAsaXWpKKnyM FQ4S04mp6O3DRCeUMXhOS A5gHJ3pC8fiRyopvvipKZ mdDsgdmVydGlj OIefCZkfH067XKRrrBquC kNvZGluZyBEYXRlOiAgMD MvMTYvMjAyMzwvdGQ+PHR lOGR2sBmtCKFa lJCkINggUy5fpNwnmBpcH T3dNVKdcfnrKCFaeZ4hJS QtbACpuGysKX2tPJBoblh px291ZgMbWBD6 CMBghPVeL8JdoB9zUdAmA ZTuKGQvE8PdpKWhIBfnV0 97JVkvXyT9IAPytkCuI6V sLWFsaWduOiB0 q9H7Ve5Pf1LsrfrdU8Hoc BUwVwFeRmgoNWa7N1UkTt wvdHI+MU84KDUzUQ74LTl 6QQQ0iMjzSUrm JCIkN9GaqS6hTsBtVRCuU GRkOyc+PHRhYmxlIHdpZH RoPScxMDAlJyBzdHlsZT0 bGk5bKAYcUOBd dImgmREcUuLta8ekVOJwQ OknEK3fdEgiL0CbuUM5BO Yun1l0Td16U77dS9GhnWN +PECcmXY3nDC4 iL6cUzFaPbQ5AIamD513F lQbjCHkYjlaf1vwt6ivqY r2YhK8IXXoskDyvKjrAUJ 3g3EcCm96Y76e IHdpZHRoPSIxNSUiIHZhb Gwtcu9pvO2xTe9+PGNvbC Y9hSJ7bI4oKbXmApH3SNk fK435LsPgrXNv Npwbs4kta5aidNr0JgEsF XHnnyMqnBcwXQU1z0QfEd 00S1MvdPbhw8DlVlv9ti3 5hIJbi1V6qNN7 M6MeCMFfiqoykTUsvFogU U7vEDXcvocdGHZczZ7qUJ QuE2a3KkHqFaD9UDktI5F dvxR4VMXqtMHp PAIxnPEAyV9fbavxk8urf entJwIrIOUgJEu9OFh9YV JdzVsaQbUbNWA0OpV2GHR 3aWKpdY5qiWqk lshkwI9yYrx+HQQ1hAQga IIKDZ1xKfhnhCH+PHRkIH Y1dGdeNXglEUKtzY8eZPQ hC3o9YxWlYnH4 GZgjS4SoasM3MITxwHKdN CSpgHKTpC2pvsssp1fnqw wmGyDfKNZgQNr2LRe5QRA saWduOiBsZWZ0 JbZ2HDX1yGHdfV7mjUsat snrpD9qBzk+QmlydGggRG T0INd0M2JrGsy4CSEgmQg jTM6ycFSuKSwl Zn1keVcluKqnGD1yETWqw xuri113VfKtc8vnJZZtaN UvDEbqXKG3Z23wn9S2VHV jLCKcHWY3eHC3 kI7liPtmppzbbOQztQmtq jBoqLncQBzaYMoeI850YQ CzrKoqGqTpUTv6Z2QpVdl 0ISUtmHwlDN3t lQAeBJgqAf6pkGzfwUnmQ Z7pIHDcwbspf539QlLdc2 hbMJJjkXLeMWgtWEZ3T94 cc2L3QEXiHOZg HUD6jGP4pS5mzEhatgxtr GVmdDsgdmVydGljYWwtYW irB022GRYwuRgsXaDdqGm 9Z9AvEnq2RKVo qUoiYA3rzVVdUGmbMk3tj GwloPdxZN0iCELmufccx6 51NpOfd9boEYRsxGDqVXq bNWD6E51ej0L5 HNVjGDRzXBV4bRP7mW0tx GlnbjogbGVmdDsgdmVydG rvVEdhQQnuW653DJZnlVs nPlBhdGllbnQg XYwiPNs5A8TpHimxvTW+P M53XSZrMA57fYZmxVMlq4 tanHs7MjHwPFAdYKU9gGf dEWgzi6KcWLLx X50pfQJgx6O9MAMeeXvfc RKhUtPegNA8pU0qZLfqms evd3ldtnudYxdyx7qefa7 7pH28P32iLVso ZHRoPSIzMCUiIHZhbGlnb j7qpW5jGp2+GQOmhRL5hF Z3mX1sBKMrVzR6QBuyD39 9InRvcCIvPjxj y4oyi1jdzDg2BkH2QHCet oQhmYluFPO9m3XlKt91J5 9sIHdpZHRoPSIyMCUiIHZ chRhzbq8ogX4k Ii8+DEBpgVA9cUS6gE7xU bQnYoE1LHuwR517HfHooR RjGlraL15vS3CqsMR+PHR wNcn4HXHphCxp IY9zvDRsJUgsBg7qFXB6O kMsJnDtDSkxU3WxXTMkgp gypyxhyYO4QSVsGPWokZ6 4Vq9msMmhUWKd cDAZzO6capfne8hptnmpZ yLvJDQiWIm0PTx2KSIkeH bzRaDzKEH3WjG9VFA9hSD juK1nmSicnldd kS6rF4YpMHPgxvqpYy99q X7uOsWgJbM9ENkkNzx+R0 IDI4vMRIBWSMMKZ3LTXJ1 8M8SeVql9WXEo rHinVK1fjTVwBBivUg4os PefzCbbSA9xADLlldulJK NqkY6zTACcbSAnuOovPR7 sHAMylritn544 XmWqLEN1YCBufBDwL5Gcn I6hYmDzDYOqWADgJ7RqxP WcATgdH455IQgnIaN9DOS wzgToG2ZlKQLv yLqmDwR6j1K1Wl4aFj1wI U1xFUbmRJ33WQ12eFQzv6 A2rGE8G2KzHDXmbvzrxge xiJH6YRJgDEMd vX18uKKwXEmpTh7jp9S6h 513TZHtMTSgkE36Em1zdN qiBGJmmVJLgI8asowco6q vcjogIzAwMDAw BDw4CWr7EYMvfYxzOhWcI CR8LfY8MHN4oPKrxR6lzB qrvptkbM4nFsy+MzAgWWV hmuC4S4WyOjz5 GVTqwFjuAN8qcJJyLNwfY x6wxBhuaJlrWI6zEGIwsp grRMMzsP8aGAHlkEIkdKp lUX9wQAPejsar l268MdLqWSF5SGYrdGToC 7UrfQ7nQpMuNBXwLXSfX4 YzkCAkUBilC692CXlyXgF 1IJXkgzPzV7Xb IUXzkTomBaV5w7O0Jn7VA M4spWQ5D6BaTdj8RIYheZ bpBI1npBYuRTnpXa1mdWv xrQzoUP8jQYSl hwtrVAGmlW2oIZLmfKRsn VstMU9dZMFtmgrve293Ou WoXLH1RKKwcFCiA1DitB5 yOiAjMDAwMDAw Y2KjwHNzCAmcT748MNcyU yL1SAOayeSvG7LeKXBqnH gxNfN8k2T6Qe5GfAW9qXN 4x5D2V0YboHJs YNG8TBV6xqbfpsp2X5ZmT jwvdHI+HA09JUIcIM09xB RrsMIbd0zrxMe0AvXfFZJ iMCT1cOeeTGty u4XuUYBdZ85tiDQrc4P7Q CDasZyniNYrZbMzsAK4xN 4zFVrrontyv5plkhosLci pz5sepk16zD90 Y05wSGerKQKwQKRlKRKcY ISuxKrbgx0ylP0gXl6+PG DkpCQ4uZH2rI3tFaQbZdS 9KYgnH656VbFx wTHsDllxi9zdx1pvcGs8N aEwDOUvrrRhsQnlMOJ8k7 UyHq68M72dLJdzVMEqFSQ yMCUiIHZhbGln kh6mcM3bLz3+HE4io4anj p28hJ46gDH+KNSfNCS3xK nwFTmkBJPzgS6tJHqsCvL 7DUXuRjZovF41 iSCcVBvgTe0loJkqoXaoF M3eOHFxxgmft919RiMfp0 teUDXjkSNuIJedIFC5M09 jm1S3FHBaQLRh TKE2ySB2xR5fkOpiwwirv GVmdDsgdmVydGljYWwtYW fpW782LSMbnEqqLtOdrLW rW7bllqHNLG4f OjwvdGQ+MVWkNXJ1wSfnD IelJKEusG8mVGQbE7q1Dh WhZqN7RWmiK8KhjfZ5VNZ vbGQgMTBwdCBU mE3iefzow3ckgleqZbErX DYmZEd5IWh8FYWnfQifAh YpGAY5ZbY5VPF9uIWoeS5 ppPrdigqzfG7h Oyc+RklOOjwvdGQ+PHRkI PD0fPklTSzjVSLxkG1aHU UgX3h5JhVaIxG6KPfvZ6G xcvD8EFAxmTIs UGDhyFCEwB8ohalli1owk wtrOtWiRFYbBIv3XQq3FR OenXbsVaAkOUV3LzE0EXP 6rKYldQ6vfNzh yyukfB8bAhi+TVJOOjwvd GQ+GJSiREK7aCbqEMinQJ CpvD2yMQVuP1h5QqBjSpW 8DDdxJ5FmruI2 EZFqgYXvNRVkoVBInB3ea uyag5snjqyyWnNxYJOvSN e4ZCt0GGEbfQpaMjBtIOV 4MvL1MPC2nIJe oB9sdWktgpsfaC8kZcx+U GY4QQU6FC12UK08V9QyNo wvdGFibGU+PHRhYmxlIHd pZHRoPScxMDAl JyBz (more content not included)... Normal [facility] Main OR Intraoperative Recor don 07-13-2022 Main OR Intraoperative Record IntraOp Document Type FT Summary Primary Physician: Miki Mauricio MD Finalized Date/Time: 07/13/22 12:00:03 Pt. Name: RONNI BLANCAAlice Pope D.O.B./Sex: 1990 Female Med Rec #: [id number] Physician: Miki Mauricio MD Financial #: [id number] Pt. Type: A Room/Bed: [place] [address] Admit/Disch: 07/11/22 05:55:08 - 07/11/22 12:40:00 Institution: [...] 1 Entry 2 Entry 3 Case Attendee Hatch SIOBHAN, Kiki Mauricio MD, Miki Champion RN, Kailey Wilson Role Performed FOUR SLIDE MACHINE OPERATOR Surgeon - Primary Cloud Architect - Primary Time In 07/11/22 08:00:00 07/11/22 08:00:00 07/11/22 08:00:00 Time Out 07/11/22 09:36:00 07/11/22 09:19:00 07/11/22 09:36:00 Procedure CHOLECYSTECOMY ROBOT CHOLECYSTECOMY ROBOT CHOLECYSTECOMY ROBOT ASSISTED(.) ASSISTED(.) ASSISTED(.) Comments DR. PRATT SUPERVISING Last Modified By: Ollie BRADY, Kailey Champion RN, Kailey Champion RN, Kailey Wilson 07/11/22 Caridad Wilson 07/11/22 Caridad Wilson 07/11/22 16:46:10 09:36:04 09:36:04 Entry 4 Entry 5 Case Attendee Cynthia Faustin CST, Liane E Role Performed Scrub - Primary SHOT PACKER/SA Time In 07/11/22 08:00:00 07/11/22 08:00:00 Time Out 07/11/22 09:36:00 07/11/22 09:36:00 Procedure CHOLECYSTECOMY ROBOT CHOLECYSTECOMY ROBOT ASSISTED(.) ASSISTED(.) Comments Last Modified By: Noni Richardson CST, RN, Maria 07/13/22 11:57:41 Caridad Wilson 07/11/22 09:36:04 Perioperative [...] (If Applicable) PreOp Antibiotic Yes Time Out Miki Mauricio MD, Given Participants Kiki Hatch CRNA, Ollie BRADY, Ramin Hatch Jennifer E, Roth CST, Liane E Time Out Complete 07/11/22 08:25:00 Outcomes Met? [...] and tissue Entry 1 Skin Integrity Intact, [place], Warm, and Skin Abnormality No Dry Outcomes Met? Yes Last Modified By: Kailey Champion RN 07/11/22 08:29:36 Post-Care Text: The patient is free from signs and symptoms of injury caused by extraneous objects Patient Positioning FT Pre-Care Text: Identifies physical alterations that require additional precautions for procedure-specific p (more content not included)... [facility] Consent for Anesthesiaon Consent for Anesthesia [id number]# 1.00CD:127 [facility] Discharge Instructionson Discharge Instructions [id number]# 1.00CD:127 [facility] IntraOperative Documentson 0 07-12-2022 IntraOperative Documents [id number]# 1.00CD:127 [facility] Preoperative Documentson Preoperative Documents [id number]# 1.00CD:127 [facility] CHEMISTRYOrdered By: Lab ROP User on 07-11-2022 Glucose [Mass/Vol] 82 mg/dL Normal 55 - 99 mg/dL FT C POC Subsection Comment on above: Result Comment: Erin nida Meter POC Device SN [id number] Invalid Interpretation Code [facility] POC Subsection POC User ID [id number] Invalid Interpretation Code [facility] [place] POC Subsection POC Username CHRISTOPHER PANCHAL Invalid Interpretation Code [facility] [place] POC Subsection Capillary Glucose POCon 06-28 Glucose [Mass/Vol] 82 mg/dL Normal 55-99 [facility] Comment on above: Result Comment: Erin nida Meter Performed By: #### [id number] ####[facility] [id number] [place] [address] Consent for Treatmenton 06-28 Consent for Treatment [id number]#1 .00CD:127 Normal [facility] Inpatient Patient Summaryon 07-11-2022 Inpatient Patient Summary [place] [id number] [facility] Clinical Discharge Instructions PERSON INFORMATION Name: [facility] Admitting Physician: Miki Mauricio MD Attending Physician: Miki Mauricio MD PCP: BILLY ZELAYA PA-C Discharge Diagnosis: Comment: PATIENT EDUCATION INFORMATION Instructions: Post Op Patient Instructions - FT (CUSTOM); Laparoscopic Cholecystectomy, Care After Medication Leaflets: Follow up: With: Address: When: Miki Mauricio [address] [place], [place] [id number] [phone] Business (1) Comments: Appointment has already been scheduled Type Location Start Finish State Post Op 15 [facility] 07/17/2022 11:40 AM 07/17/2022 12:00 PM Confirmed MEDICATION LIST New Medications [id number], [address] [place], [place] [id number], [phone] acetaminophen-hydroco done ([place] 325 mg-5 mg oral tablet) 1 Tablets [...] day (in the evening). Comment: Miguel Ángel [facility] Main OR PACU I Recordon 06-28 Main OR PACU I Record PACU Phase I Document Type FT Summary Primary Physician: Miki Mauricio MD Finalized Date/Time: 07/11/22 11:23:02 Pt. Name: BLANCA RUDOLPH/Sex: 1990 Female Med Rec #: [id number] Physician: Miki Mauricio MD Financial #: [id number] Pt. Type: A Room/Bed: [place] [address] Admit/Disch: 07/11/22 05:55:08 - Institution: Case Times [...] Signed By: Connie Calhoun RN 07/11/22 11:23 [facility] Main OR Preoperative Recordo n 07-11-2022 Main OR Preoperative Record PreOp Document Type FT Summary Primary Physician: Miki Mauricio MD Finalized Date/Time: 07/11/22 08:42:06 Pt. Name: BLANCA RUDOLPH/Sex: 1990 Female Med Rec #: [id number] Physician: Miki Mauricio MD Financial #: [id number] Pt. Type: A Room/Bed: Admit/Disch: 07/11/22 05:55:08 - Institution: Case Times [...] 08:42 Normal [facility] Monitor Recordon 07-11-2022 Monitor Record [id number]# 1.00CD:127 Normal [facility] Monitor Record [id number]# 1.00CD:127 Normal [facility] [facility] Operative Reporton Operative Report Indication for Surgery 31-year-old female symptomatic cholelithiasis here today for robotic cholecystectomy Preoperative Diagnosis CHOLELITHIASIS Postoperative Diagnosis CHOLELITHIASIS Operation CHOLECYSTECOMY ROBOT ASSISTED, ROBOT ASSISTED LAPAROSCOPIC CHOLECYSTECOMY, . Surgeon(s) Hang XIONG, Miki Antunez (Surgeon - Primary) Office Agent Andreia Richardson Anesthesia General Suresh XIONG, Brett Tripathi (Game Designer) Kiki Hatch CRNA (Other) Estimated Blood Loss [...] yes Normal [facility] Comment on above: Result Comment: Elec tronically Signed By: Hang XIONG, Miki Antunez\.br\Date and Time Signed: 07/11/22 09:43 EDT Outpatient Surgery Discharge Instructionon 07-11-2022 Outpatient Surgery Discharge Instruction [place] [id number] Patient Discharge Instructions PERSON INFORMATION Name: BLANCA RUDOLPH Date of : 1990 Current Date: 07/11/2022 09:54:17 PHYSICIANS Admitting Physician: Miki Mauricio MD Discharge Diagnosis: THOR RUDOLPHAlice Pope has been given the following list of [...] Follow up: With: Address: When: Miki Mauricio [address] [place] [address] Michael, [facility] [address], [facility] 3 [place] [address] [phone] Business (1) Comments: Appointment has already been scheduled Type Location Start Finish [facility] Post Op 15 [facility] 07/17/2022 11:40 AM 07/17/2022 12:00 PM Confirmed Pharmacy Information: You may receive a survey from [employer] asking you to rate your care experience. Your feedback is important and will help us understand what we do well and how we can improve the quality of care we provide to you, your loved ones and our community. It?s an honor to serve you. Thank you for choosing [facility] HERE ARE THE MEDICATION CHANGES THAT OCCURRED DURING YOUR HOSPITAL STAY New Medications [id number], [address] [place], [place] [id number], [phone] acetaminophen-hydroco done ([place] 325 mg-5 mg oral tablet) 1 Tablets [...] and water are not available, use hand measuring clerk. ? Change your dressing as told by [...] included)... Normal [facility] Patient Education - Texton 0 07-11-2022 Patient [...] and water are not available, use hand measuring clerk. ? Change your dressing as told by [...] care provider approves. General instructions ? Take fmyy-mxm-uzlmfqa and prescription medicines only as told by your health care provider. ? To prevent or treat constipation while you are taking prescription pain medicine, your health care provider may recommend that you: ? Drink enough fluid to keep your urine clear or pale yellow. ? Take zzij-wny-rcoquag or prescription medicines. ? Eat foods that [...] 04/16/2006 Document Revised: 03/29/2018 Document Reviewed: 10/02/2016 [employer] Patient Education ? 2019 [employer]. [facility] Progress Note-Physicianon Progress Note-Physician Patient: BLANCA RUDOLPH [...] ADD (attention deficit disorder) / SNOMED CT 54108432 / Confirmed Allergic rhinitis / SNOMED CT 481532296 / Confirmed Anemia / SNOMED CT 770623574 / Confirmed Anxiety / SNOMED CT 17229261 / Confirmed Back pain / SNOMED CT 009639529 / Confirmed BMI 45.0-49.9, adult / SNOMED CT 6972548270 / Confirmed Calculus of gallbladder / SNOMED CT 073972426 / Confirmed Cholelithiasis / SNOMED CT 385580458 / Confirmed Depressive disorder / SNOMED CT 05783325 / Confirmed Epigastric pain / SNOMED CT 852367559 / Confirmed Hypertension / SNOMED CT 4175802445 / Confirmed Morbid obesity / SNOMED CT 996750054 / Confirmed Nausea / SNOMED CT 4936067769 / Confirmed On rivaroxaban therapy / SNOMED CT 738061761 / Confirmed Pulmonary embolism x2 / SNOMED CT 00171504 / Confirmed Type II diabetes mellitus / SNOMED CT 796739364 / Confirmed, Active Problems (16) ADD (attention [...] in all extremities. Gastrointestinal: Soft, Non-tender. Plan [place] [employer] Anesthesiologists (ASA) physical status classification: Class III. Anesthetic Preoperative Plan: Anesthesia General. Normal [facility] Comment on above: Result Comment: Elec tronically Signed By: Suresh XIONG, Brett Tripathi\.br\Date and Time Signed: 07/11/22 07:47 EDT Consultation Noteon 07-10-19 23 Consultation Note [id number] .00CD:127 Normal [facility] Physician Referralon 023 Physician Referral [id number]#1 .00CD:127 Normal [facility] BUNon 07-05-2022 Urea nitrogen [Mass/Vol] 9 mg/dL Normal 5-21 [facility] Comment on above: Performed By: #### 1 [id number], 6352586, 8199680, 3682964, 0456498, 0636960 ####[facility] [address] [place] [address] CBC w/Indiceson 07-05-2022 Erythrocyte distribution width (RBC) [Ratio] 12.9 % Normal 10.9-14.2 [facility] Comment on above: Performed By: #### 1 5780445, 5092102, 6090643, 1016320, 1595780, 7544168 ####[facility] [address] [place] [address] Hematocrit (Bld) [Volume fraction] 41.9 % Normal 34.0-46.0 [facility] Comment on above: Performed By: #### 1 8989061, 1807282, 5607722, 6322138, 7969374, 3268578 ####[facility] [address] [place] [address] Hemoglobin (Bld) [Mass/Vol] 14.3 g/dL Normal 12.0-16.0 [facility] Comment on above: Performed By: #### 1 7269849, 3632249, 8707468, 1999471, 4516734, 7078851 ####[address] [address] [place] [address] MCH (RBC) [Entitic mass] 31.7 pg Normal 27.0-34.0 [facility] Comment on above: Performed By: #### 1 0805582, 2214302, 1549256, 4347087, 8032466, 9590243 ####[facility] [address] [place] [address] MCHC (RBC) [Mass/Vol] 34.2 g/dL Normal 31.4-36.0 [facility] Comment on above: Performed By: #### 1 6544646, 4037692, 9598573, 7484930, 3215148, 6961290 ####[address] [place] [address] MCV (RBC) [Entitic vol] 92.8 fL Normal 80.0-100.0 [facility] Comment on above: Performed By: #### 1 6206217, 6569859, 5898915, 8296677, 5613428, 9150185 ####[facility] [address] [place] [address] Platelet mean volume (Bld) [Entitic vol] 7.7 fL Normal 6.4-10.8 [facility] Comment on above: Performed By: #### 1 2480570, 7347175, 5493100, 6719570, 7946539, 3856193 ####[address] [address] [place] [address] Platelets (Bld) [#/Vol] 232.0 E9/L Normal 150.0-500.0 [facility] Comment on above: Performed By: #### 1 1199305, 4948656, 8826690, 8971956, 8649592, 0861678 ####[facility] [address] [place] [address] RBC (Bld) [#/Vol] 4.5 E12/L Normal 4.3-5.9 [facility] Comment on above: Performed By: #### 1 1039590, 5253373, 4846123, 2523733, 6481862, 1140631 ####[facility] [address] [place] [address] WBC corrected for nucl RBC Auto (Bld) [#/Vol] 4.9 E9/L Normal 4.0-11.0 [facility] Comment on above: Performed By: #### 1 9990878, 5087341, 0882745, 8990761, 6330397, 7177455 ####[facility] [address] [place] [address] Consent for Procedure/Surger yon 07-05-2022 Consent for Procedure/Surgery [id number] .00CD:127 Normal [facility] Consent for Treatmenton Consent for Treatment [id number] .00CD:127 Normal [facility] Creatinineon 07-05-2022 Creatinine [Mass/Vol] 0.7 mg/dL Normal 0.5-1.3 [facility] Comment on above: Performed By: #### 1 1787368, 2276757, 1966432, 8867344, 7307601, 3016763 ####[facility] [address] [place] [address] Glucoseon 07-05-2022 Glucose [Mass/Vol] 84 mg/dL Normal 55-199 [facility] Comment on above: Performed By: #### 1 7279687, 5760089, 8405501, 6354444, 4777458, 9240883 ####[facility] [address] [place] [address] Lyteson 07-05-2022 Anion gap [Moles/Vol] 9 mmol/L Normal 6-16 [facility] Comment on above: Performed By: #### 1 8171128, 1016952, 3555006, 5413894, 5237873, 7983889 ####[facility] [address] [place] [address] Chloride [Moles/Vol] 106 mmol/L Normal 101-111 [facility] Comment on above: Performed By: #### 1 1934663, 2299964, 3681237, 7439353, 7674001, 9358386 ####[facility] [address] [place] [address] CO2 [Moles/Vol] 26 mmol/L Normal 21-31 [facility] Comment on above: Performed By: #### 1 3749714, 6532885, 5566620, 1861942, 5944327, 6408981 ####[facility] [address] [place] [address] Potassium [Moles/Vol] 4.2 mmol/L Normal 3.5-5.3 [facility] Comment on above: Performed By: #### 1 7542916, 6855147, 9240122, 8799442, 1364139, 5689288 ####[facility] [address] [place] [address] Sodium [Moles/Vol] 137 mmol/L Normal 135-145 [facility] Comment on above: Performed By: #### 1 3221296, 3008858, 4939925, 0728952, 1025538, 8516081 ####[facility] [address] [place] [address] XR Chest 2 Viewson 3 XR Chest [...] 0 Normal [facility] eGFRon 07-05-2022 GFR/1.73 sq M.predicted among blacks MDRD (S/P/Bld) [Vol rate/Area] mL/min/{1.73_m2} Normal >=59 [facility] Comment on above: Order Comment: Order added by Discern Expert. Result Comment: eGFR is race adjusted. AA=. Performed By: #### 1 8423954, 5212376, 5290674, 3915247, 9453224, 9501504 ####[facility] [address] [place] [address] GFR/1.73 sq M.predicted among non-blacks MDRD (S/P/Bld) [Vol rate/Area] mL/min/{1.73_m2} Normal >=59 [facility] Comment on above: Order Comment: Order added by Discern Expert. Result Comment: Cell Tester michele kidney disease could be indicated at eGFR's of less than 60 mL/min/1.73m2. Kidney failure is indicated at less than 15 mL/min/1.73m2. Performed By: #### 1 1405169, 3918344, 9207210, 8725733, 9691599, 3678132 ####[facility] [address] [place] [address] Consent for Procedure/Surger yon 06-27-2022 Consent for Procedure/Surgery [id number] .00CD:127 Normal [facility] Ambulatory Visit Summaryon 0 06-26-2022 Ambulatory Visit Summary BLANCA RUDOLPH :1990 Visit Date:06/26/2022 Ambulatory Visit Instructions Your Diagnosis Cholelithiasis BMI 45.0-49.9, adult On rivaroxaban therapy Your Care Team Attending Physician - Miki Mauricio MD Primary Care Physician - BILLY ZELAYA PA-C Referring Physician - Jazmin ZAMAN MD This Is Your Medications List dicyclomine (Bentyl 10 mg Cap) etonogestrel (Nexplanon) ferrous sulfate (FeroSul 325 mg oral tablet) lisinopril omeprazole (omeprazole 40 mg Cap-DR) rivaroxaban (Xarelto) Discharge Vitals Heart Rate (Peripheral) 80 Blood Pressure 114/69 Height 172 cm Height 68 in Weight 134 kg Weight 294.8 lb BMI 45.29 What to do next Scheduled Follow-Up Appointments Sunday 12:30 PM EST With: Where: [facility] Surgical Services Sunday 8:00 AM EDT With: Where: [facility] Surgical Services Sunday 11:40 AM EDT With: Miki Mauricio MD Where: [facility] [place] Normal [facility] General Surgery Office/Clini c Noteon 06-26-2022 General Surgery Office/Clinic Note 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 female here [...] was provided. 3. On rivaroxaban therapy (Z79.01: alf (current) use of anticoagulants) Documentation services were performed after patient or guardian consented to allow Bert Oropeza to record this visit. EMILEE campaign marketing specialist and provider reviewed before signing. EMILEE: [...] included)... Normal [facility] Comment on above: Result Comment: Elec tronically Signed By: Hang XIONG, Miki Antunez\.br\Date and Time Signed: 06/26/22 13:38 EST\.br\Electronically Co-Signed By: Yue Mcdonnell\.br\Date and Time Co-Signed: 06/26/22 12:24 EST Patient Educationon 06-26-19 Patient Education Gastroenterology Obesity, Adult Obesity is [...] ovarian syndrome (PCOS). ? Binge-eating disorder. ? Carrington syndrome. ? Taking certain medicines, such as [...] an area with limited access to: ? [place], recreation centers, or sidewalks. ? Healthy food choices, such as grocery stores and farmers' markets. What are the signs or symptoms? The [...] ? 0?1 drink (more content not included)... [facility] Pre-Certification Formon Pre-Certification Form [id number]# 1.00CD:127 [facility] Provider Letteron 04-20-2022 Provider Letter April 20, 2022 BLANCA RUDOLPH [address] [place] [address] BLANCA RUDOLPH 1990 Dear Blanca, We have been trying to reach you with no success. In regards to your EGD and scheduling a follow up in the office. Thank you for your prompt attention to this matter. Sincerely, [facility]ive [facility] PAP ACOG PANEL 1: 30 to 65on 03-23-2022 . . Normal [facility] Comment on above: Result Comment: Perf ormed at: WB Performed By: #### 4 [id number] #### [facility] [address] [place] [address] [address] Naomi Irizarry Age Gdln ACOG Testing 30-65 Normal [facility] Comment on above: Performed By: #### 4 [id number] #### [facility] [address] [address] [address] Naomi Irizarry DIAGNOSIS: Comment Normal [facility] Comment on above: Result Comment: NEGA TIVE FOR INTRAEPITHELIAL LESION OR MALIGNANCY. Performed at: WB Performed By: #### 4 [id number] #### [facility] [address] [address] [address] Naomi Irizarry HPV Aptima Positive Abnormal Negative [facility] Comment on above: Result Comment: This nucleic acid amplification test detects fourteen high-risk HPV types (16,18,31,33,35,39,45,51,52,56,58,59,66,68) without differentiation. Performed at: =G Performed By: #### 4 048299 #### [facility] [address] [place] [address] Dr. Naomi Irizarry HPV Genotype 16 Negative Normal Negative [facility] Comment on above: Performed By: #### 4 959253 #### [facility] [address] [place] [address] Dr. Naomi Irizarry HPV Genotype 18,45 Negative Normal Negative [facility] Comment on above: Performed By: #### 4 849790 #### [facility] [address] [address] [address] Naomi Irizarry HPV Genotype Reflex Comment Normal [facility] Comment on above: Result Comment: Angelica sarmiento, see HPV Genotype results. Performed at: WB Performed By: #### 4 802189 #### [facility] [address] [place] [address] Dr. Naomi Irizarry Methodology: Comment Normal [facility] Comment on above: Result Comment: This liquid based ThinPrep(R) pap test was screened with the use of an image guided system. Performed at: WB Performed By: #### 4 873625 #### [facility] [address] [place] [address] Dr. Naomi Irizarry Note: Comment Normal [facility] Comment on above: Result Comment: The Pap smear is a screening test designed to aid in the detection of premalignant and malignant conditions of the uterine cervix. It is not a diagnostic procedure and should not be used as the sole means of detecting cervical cancer. Both false-positive and false-negative reports do occur. . Performed at: WB Performed By: #### 4 [id number] #### [facility] [address] [place] [address] Dr. Naomi Irizarry Performed by: Comment Normal [facility] Comment on above: Result Comment: Tong Boone Confidential Secretary (ASCP) Performed at: WB Performed By: #### 4 883684 #### [facility] [address] [place] [address] Dr. Naomi Irizarry Specimen adequacy: Comment Normal [facility] Comment on above: Result Comment: Sati sfactory for evaluation. Endocervical and/or squamous metaplastic cells (endocervical component) are present. Performed at: WB Performed By: #### 4 119122 #### [facility] [address] [place] [address] Dr. Naomi Irizarry CHEMISTRYOrdered By: SYSTEM SYSTEM [...] 6 mmol/L Normal 6 - 16 mEq/L [facility] AST [Catalytic activity/Vol] 38 [iU]/d Normal 5 - 43 Int._Unit/L [facility] Bilirubin [Mass/Vol] 0.7 mg/dL Normal 0.0 - 1.1 mg/dL [facility] Calcium [Mass/Vol] 8.3 mg/dL Low 8.9 - 11. 1 mg/dL [facility] Chloride [Moles/Vol] 108 mmol/L Normal 101 - 1 11 mmol/L [facility] CO2 [Moles/Vol] 29 mmol/L Normal 21 - 31 mmol/L [facility] Creatinine [Mass/Vol] 0.9 mg/dL Normal 0.5 - 1.3 mg/dL [facility] GFR/1.73 sq M.predicted among blacks MDRD (S/P/Bld) [Vol rate/Area] mL/min/1.73 m2 Normal >=59mL/min/1.73 m2 [facility] Chem S GFR/1.73 sq M.predicted among non-blacks MDRD (S/P/Bld) [Vol rate/Area] mL/min/1.73 m2 Normal >=59mL/min/1.73 m2 [facility] Chem S Globulin (S) [Mass/Vol] 3.9 g/dL Normal 1.4 - 4.0 gm/dL [facility] Glucose [Mass/Vol] 82 mg/dL Normal 55 - 199 mg/dL [facility] Lipase [Catalytic activity/Vol] 34 U/L Normal 13 - 58 unit/L [facility] Potassium [Moles/Vol] 4.0 mmol/L Normal 3.5 - 5.3 mmol/L [facility] Protein [Mass/Vol] 8.0 g/dL High 6.0 - 7.8 gm/dL [facility] Sodium [Moles/Vol] 139 mmol/L Normal 135 - 145 mmol/L [facility] Urea nitrogen [Mass/Vol] 13 mg/dL Normal 5 - 21 mg/dL [facility] Urea nitrogen/Creatinine [Mass ratio] 14 mg/mg Normal 10 - [facility] HEMATOLOGYOrdered By: Everette Morocho on 02-16-2022 Erythrocyte distribution width (RBC) [Ratio] 12.9 % Normal 10.9 - 14.2 % [facility] Hematocrit (Bld) [Volume fraction] 42.7 % Normal 34.0 - 46.0 % [facility] Hemoglobin (Bld) [Mass/Vol] 15.0 g/dL Normal 12.0 - 16.0 gm/dL [facility] MCH (RBC) [Entitic mass] 31.7 pg Normal 27.0 - 34.0 pg [facility] MCHC (RBC) [Mass/Vol] 35.1 g/dL Normal 31.4 - 36.0 gm/dL [facility] MCV (RBC) [Entitic vol] 90.2 fL Normal 80.0 - 100.0 fL [facility] Platelet mean volume (Bld) [Entitic vol] 8.1 fL Normal 6.4 - 10.8 fL [facility] Platelets (Bld) [#/Vol] 238.0 E9/L Normal 150.0 - 500.0 E9/L [facility] RBC (Bld) [#/Vol] 4.7 E12/L Normal 4.3 - 5.9 E12/L [facility] HemeAutoSS WBC corrected for nucl RBC Auto (Bld) [#/Vol] 8.1 E9/L Normal 4.0 - 11.0 E9/L [facility] Vital Signs Date Time Vital Sign Value Performing Clinician Facility 09-05-2022 09:21-0400 Blood Pressure Location CYNTHIA GALLARDO [facility] 09-05-2022 09:21-0400 Diastolic blood pressure 74 mm[Hg] CYNTHIA PAULINA [facility] 09-05-2022 09:21-0400 Heart rate 68 /min CYNTHIA PAULINA [facility] 09-05-2022 09:21-0400 Respiratory rate 16 /min CYNTHIA PAULINA [facility] 09-05-2022 09:21-0400 Systolic blood pressure 138 mm[Hg] CYNTHIA PAULINA [facility] 08-10-2022 12:45-0400 Blood Pressure Location Katrin Resendiz [facility] 08-10-2022 12:45-0400 Body temperature 97.7 [degF] Katrinpura ZelayaAstrid [facility] 08-10-2022 12:45-0400 Diastolic blood pressure 72 mm[Hg] Katrin Zelayametz [facility] 08-10-2022 12:45-0400 Heart rate 79 /min Katrinpura ZelayaAstrid [facility] 08-10-2022 12:45-0400 Systolic blood pressure 106 mm[Hg] Katrin Zelayametz [facility] 07-17-2022 11:22-0400 Blood Pressure Location Miki Mauricio [facility] [place] 07-17-2022 11:22-0400 Diastolic blood pressure 78 mm[Hg] Miki Mourany [facility] [place] 07-17-2022 11:22-0400 Heart rate 68 /min Miki Mourany [facility] [place] 07-17-2022 11:22-0400 Respiratory rate 16 /min Miki Mourany [facility] [place] 07-17-2022 11:22-0400 Systolic blood pressure 122 mm[Hg] Miki Mourany [facility] [place] 07-11-2022 12:14-0400 Heart rate 74 /min Miki Mourany [facility] 07-11-2022 12:14-0400 SaO2% (BldA) [Mass fraction] 97 % Miki Mourany [facility] 07-11-2022 12:14-0400 Body temperature 98.06 [degF] Miki Mourany [facility] 07-11-2022 12:13-0400 Diastolic blood pressure 79 mm[Hg] Miki Mourany [facility] 07-11-2022 12:13-0400 Mean blood pressure 94 mm[Hg] Miki Mourany [facility] 07-11-2022 12:13-0400 Systolic blood pressure 125 mm[Hg] Miki Mourany [facility] 07-11-2022 12:13-0400 Respiratory rate 18 /min Miki Mourany [facility] 07-11-2022 11:03-0400 Heart rate 61 /min Miki Mourany [facility] 07-11-2022 11:03-0400 SaO2% (BldA) [Mass fraction] 100 % Miki Mourany [facility] 07-11-2022 11:03-0400 Body temperature 97.7 [degF] Miki Mourany [facility] 07-11-2022 11:03-0400 Diastolic blood pressure 79 mm[Hg] Miki Mourany [facility] 07-11-2022 11:03-0400 Mean blood pressure 94 mm[Hg] Miki Mourany [facility] 07-11-2022 11:03-0400 Systolic blood pressure 125 mm[Hg] Miki Mourany [facility] 07-11-2022 11:03-0400 Respiratory rate 16 /min Miki Mourany [facility] 07-11-2022 11:00-0400 Body temperature 98.42 [degF] Miki Mourany [facility] 07-11-2022 11:00-0400 Mean blood pressure 103 mm[Hg] Miki Mourany [facility] 07-11-2022 11:00-0400 Respiratory rate 26 /min Miki Mourany [facility] 07-11-2022 10:45-0400 Mean blood pressure 105 mm[Hg] Miki Mourany [facility] 07-11-2022 10:45-0400 Respiratory rate 16 /min Miki Mourany [facility] 07-11-2022 10:30-0400 Mean blood pressure 102 mm[Hg] Miki Mourany [facility] 07-11-2022 10:30-0400 Respiratory rate 12 /min Miki Mourany [facility] 07-11-2022 09:37-0400 Body temperature 97.88 [degF] Miki Mauricio [facility] 07-11-2022 07:00-0400 Heart rate 72 /min Miki Mauricio [facility] 02-16-2022 12:27-0400 Diastolic blood pressure 85 mm[Hg] Wu SALAM [facility] 02-16-2022 12:27-0400 Mean blood pressure 102 mm[Hg] Wu SALAM [facility] 02-16-2022 12:27-0400 Systolic blood pressure 137 mm[Hg] Wu SALAM [facility] 02-16-2022 12:23-0400 Blood Pressure Location Wu SALAM [facility] 02-16-2022 12:23-0400 Diastolic blood pressure 83 mm[Hg] Wu SALAM [facility] 02-16-2022 12:23-0400 Heart rate 73 /min Wu SALAM [facility] 02-16-2022 12:23-0400 Respiratory rate 16 /min Wu SALAM [facility] 02-16-2022 12:23-0400 Systolic blood pressure 145 mm[Hg] Wu SALAM [facility] Dig[facility]ive [facility] Encounters Encounter Date Encounter Type Care Provider Facility Start: 05-03-2023 End: 05-04-2023 [facility] [facility] Start: 04-25-2023 Documentation procedure [facility] Start: 04-18-2023 End: 04-18-2023 ambulatory BENTLEY ALBRIGHT Not Available Start: 04-06-2023 ambulatory [facility] Start: 04-06-2023 End: 04-06-2023 ambulatory [facility] Start: 03-13-2023 End: 03-14-2023 ambulatory PA-C CYNTHIA GALLARDO Facility:[facility] Start: 03-13-2023 End: 03-13-2023 Patient encounter procedure CYNTHIA GALLARDO [facility] Start: 01-05-2023 ambulatory [facility] Start: 01-05-2023 End: 01-05-2023 ambulatory [facility] Start: 12-15-2022 ambulatory [facility] Start: 12-15-2022 ambulatory [facility] Start: 09-05-2022 End: 09-06-2022 ambulatory RUFINO GALLARDO Facility:[facility] Start: 09-05-2022 End: 09-05-2022 Patient encounter procedure CYNTHIA GALLARDO [facility] Start: 08-15-2022 ambulatory BILLY ZELAYA Facility:[facility] Start: 08-10-2022 End: 08-11-2022 ambulatory BILLY ZELAYA Facility:[facility] Start: 08-10-2022 End: 08-11-2022 ambulatory BILLY ZELAYA Facility:[facility] Start: 08-10-2022 End: 08-10-2022 Patient encounter procedure Katrin Resendiz [facility] Start: 08-10-2022 End: 08-10-2022 Patient encounter procedure Katrin Jenkins Astrid [facility] Start: 07-17-2022 End: 07-18-2022 ambulatory BILLY ZELAYA Facility:[facility] Start: 07-17-2022 End: 07-17-2022 Patient encounter procedure Miki Mauricio [facility] [place] Start: 07-11-2022 End: 07-11-2022 ambulatory Miki Mauricio Facility:[facility] Start: 07-11-2022 End: 07-11-2022 Admission to same day surgery center Miki Mauricio [facility] Start: 07-05-2022 End: 07-06-2022 ambulatory BILLY ZELAYA Facility:[facility] Start: 07-05-2022 ambulatory Issa corbinty:[id number] Start: 06-26-2022 End: 06-27-2022 ambulatory Wu SALAM Facility:[facility] Start: 06-21-2022 ambulatory Wu SALAM Facility: [facility] [place] Start: 03-14-2022 End: 03-14-[address] BENTLEY ALBRIGHT Facility: Start: 02-16-2022 End: 02-16-2022 Patient encounter procedure Wu SALAM [facility] Start: 02-16-2022 End: 06-01-2022 Recurring Wu SALAM [facility] Start: 02-16-2022 End: 02-16-2022 Patient encounter procedure Wu SALAM [facility] Start: 12-12-2021 End: 12-12-2021 ambulatory MELONY THURSTON Facility:[facility]1 Procedures Date Procedure Procedure Detail Performing Clinician Start: 12-18-2022 Adult depression screening assessment Dee Dee Hernandez RN Start: 03-14-2022 Microscopic observation [Identifier] in Cervix by Cyto stain Dee Dee Hernandez RN Start: 03-23-2020 End: 06-30-2020 H/O: section Previous delivery, antepartum Dee Dee Hernandez RN section Miki Duongnathalie paxton Cholecystectomy Miki Mauricio Incision and drainag e of hematoma Miki Duongcheryl Ligation of fallopian tube J ohprashanth Reynosopaxton Plan of Treatment Date Care Activity Detail Author Start: 03-23-2030 DTaP,Tdap and Td Vaccines (9 - Td or Tdap) DTaP,Tdap and Td Vaccines (9 - Td or Tdap) [facility] Start: 03-14-2025 Screening for malignant neoplasm of cervix Pap [facility]ear [facility] Start: 04-02-2024 Adult BMI Screening [facility] Start: 04-02-2024 Tobacco Screening [facility] Start: 12-19-2023 Depression Screening [facility] Start: 07-05-2023 End: 07-05-2023 Telemedicine consultation with patient 07/05/2023 9:00 AM EST Telemedicine Yolis Rodrigues [facility] - Medical Oncology [address] [place] [phone] Juan C Kaminski MD [address] [place] [address] [address] [place] [address] Yolis Rodrigues [facility] Start: 06-28-2023 End: 06-28-2023 ambulatory 06/28/2023 10:00 AM EST Lab Yolis Rodrigues [facility] [address] [place] [phone] Yolis Rodrigues [facility] Start: 06-21-2023 End: 06-21-2023 Patient encounter procedure 06/21/2023 9:30 AM EST Office Visit [facility] [address] [place] [phone] Blayne Echols MD [address] [facility] [address] [place] [address] [facility] Start: 06-08-2023 End: 06-08-2023 Patient encounter procedure 06/08/2023 1:00 PM EST Appointment [facility] Neuro[facility] [address] [place] [address] [facility] Start: 05-03-2023 End: 05-03-2023 Patient encounter procedure 05/03/2023 8:30 AM EST Office Visit [facility] [address] [place] [phone] Sherman Calle MD [address] [place] [address] [facility] Start: 11-10-2009 Adult BMI Follow Up Plan Adult BMI Follow Up Plan [facility] Immunizations Immunization Date Immunization Notes Care Provider Fa cili 03-23-2020 influenza virus vaccine, unspecified formulation Wu SALAM [facility] 03-23-2020 influenza, injectabl e, quadrivalent, preservative free Dee Dee Hernandez RN [facility] 03-23-2020 tetanus toxoid, redu martha diphtheria toxoid, and acellular pertussis vaccine, adsorbed Wu SALAM [facility] 04-02-2019 tetanus toxoid, redu martha diphtheria toxoid, and acellular pertussis vaccine, adsorbed Wu SALAM [facility] 02-26-2019 influenza virus vaccine, unspecified formulation Wu SALAM [facility] 02-26-2019 influenza, injectabl e, quadrivalent, preservative free Dee Dee Hernandez RN [facility] 03-03-2010 influenza virus vaccine, unspecified formulation Wu SALAM [facility] 03-03-2010 influenza, seasonal, injectable Dee Dee Hernanedz RN [facility] 07-27-2009 HPV, unspecified formulation Wu GlycobiaAM [facility] 07-27-2009 human papilloma viru s vaccine, quadrivalent Dee Dee Hernandez RN [facility] 03-29-2009 HPV, unspecified formulation Wu GlycobiaAM [facility] 03-29-2009 human papilloma viru s vaccine, quadrivalent Dee Dee Hernandez RN [facility] 02-24-2009 influenza virus vaccine, live, attenuated, for intranasal use Dee Dee Hernandez RN [facility] 01-20-2009 HPV, unspecified formulation Wu GlycobiaAM [facility] 01-20-2009 human papilloma viru s vaccine, quadrivalent Dee Dee Hernandez RN [facility] 01-20-2009 meningococcal ACWY vaccine, unspecified formulation Wu BookMyShow [facility] 01-20-2009 meningococcal polysaccharide (groups A, C, Y and W-135) diphtheria toxoid conjugate vaccine (MCV4P) Dee Dee Hernandez RN [facility] 01-20-2009 tetanus toxoid, redu martha diphtheria toxoid, and acellular pertussis vaccine, adsorbed Wu Glycobia [facility] 05-18-2008 influenza virus vaccine, unspecified formulation Wu GlycobiaAM [facility] 05-18-2008 influenza, seasonal, injectable, preservative free Dee Dee Hernandez RN [facility] 05-26-2004 measles, mumps and rubella virus vaccine Wu SALAM [facility] 04-03-2003 influenza virus vaccine, unspecified formulation Wu SALAM [facility] 04-03-2003 influenza, seasonal, injectable Dee Dee Hernandez RN [facility] 08-28-1996 diphtheria, tetanus toxoids and acellular pertussis vaccine, unspecified formulation Dee Dee Hernandez RN [facility] 08-28-1996 DTaP, unspecified formulation Wu SALAM [facility] 08-28-1996 poliovirus vaccine, unspecified formulation Dee Dee Hernandez RN [facility] 05-17-1995 hepatitis B vaccine, pediatric or pediatric/adolescent dosage Wu SALAM [facility] 12-19-1994 hepatitis B vaccine, pediatric or pediatric/adolescent dosage Wu SALAM [facility] 11-10-1994 hepatitis B vaccine, pediatric or pediatric/adolescent dosage Wu SALAM [facility] 07-28-1993 diphtheria, tetanus toxoids and acellular pertussis vaccine, unspecified formulation Dee Dee Hernandez RN [facility] 07-28-1993 DTaP, unspecified formulation Wu SALAM [facility] 07-28-1993 poliovirus vaccine, unspecified formulation Dee Dee Hernandez RN [facility] 02-10-1993 haemophilus influenz ae type b vaccine, conjugate unspecified formulation Dee Dee Hernandez RN [facility] 02-10-1993 Hib, unspecified formulation Wu SALAM [facility] 02-10-1993 measles, mumps and rubella virus vaccine Wu SALAM [facility] 05-07-1992 diphtheria, tetanus toxoids and acellular pertussis vaccine, unspecified formulation Dee Dee Hernandez RN [facility] 05-07-1992 DTaP, unspecified formulation Wu SALAM [facility] 05-07-1992 haemophilus influenz ae type b vaccine, conjugate unspecified formulation Dee Dee Hernandez RN [facility] 05-07-1992 Hib, unspecified formulation Wu SALAM [facility] 03-05-1992 diphtheria, tetanus toxoids and acellular pertussis vaccine, unspecified formulation Dee Dee Hernandez RN [facility] 03-05-1992 DTaP, unspecified formulation Wu SALAM [facility] 03-05-1992 haemophilus influenz ae type b vaccine, conjugate unspecified formulation Dee Dee Hernandez RN [facility] 03-05-1992 Hib, unspecified formulation Wu SALAM [facility] 03-05-1992 poliovirus vaccine, unspecified formulation Dee Dee Hernandez RN [facility] 01-07-1992 diphtheria, tetanus toxoids and acellular pertussis vaccine, unspecified formulation Dee Dee Hernandez RN [facility] 01-07-1992 DTaP, unspecified formulation Wu SALAM [facility] 01-07-1992 haemophilus influenz ae type b vaccine, conjugate unspecified formulation Dee Dee Hernandez RN [facility] 01-07-1992 Hib, unspecified formulation Katrin Astrid [facility] 01-07-1992 poliovirus vaccine, unspecified formulation Dee Dee Hernandez RN [facility] NEGATED: Highlighted row has not occurred!06-26-2022 influenza virus vaccine, unspecified formulation Miki Mauricio [facility] NEGATED: Highlighted row has not occurred!06-26-2022 SARS-CoV-2 mRNA (tozinameran 5y-11y) vaccine Miki Mauricio [facility] NEGATED: Highlighted row has not occurred!02-16-2022 influenza virus vaccine, unspecified formulation Jazmin ZAMAN [facility] Payers Date Payer Category Payer Medicaid [employer] O [id number] 2022-Present [phone] [address] [place] [address] [id number] 2022 Unknown [id number] 1991 Unknown [id number] [id number] 1991 Unknown [id number] [id number] 1991 Unknown [id number] [id number] 1991 Unknown [id number] 2.16.840.1.484811.3.579.2.727 1991 Unknown [id number] 2.16.840.1.335114.3.579.2.727 1991 Unknown [id number] 2.16.840.1.968229.3.579.2.727 1991 Unknown [id number] 2.16.840.1.031389.3.579.2.727 1991 Unknown [id number] 2.16.840.1.693086.3.579.2.727 1991 Unknown [id number] 2.16.840.1.440353.3.579.2.727 1991 Unknown [id number] 2.16.840.1.362871.3.579.2.727 1991 Unknown [id number] 2.16.840.1.360182.3.579.2.727 1991 Unknown [id number] 2.16.840.1.054868.3.579.2.727 1991 Unknown [id number] 2.16.840.1.592128.3.579.2.727 1991 Unknown [id number] 2.16.840.1.759147.3.579.2.1259 1991 Unknown [id number] 2.16.840.1.141882.3.579.2.1286 1991 Unknown [id number] [id number] 1959 Unknown [id number] Social History Date Type Detail Facility Start: 02-16-2022 End: 04-10-2022 Tobacco smoking status Ex-smoker (finding) [facility] Start: 12-18-2022 End: 03-29-2023 Sex Assigned At Female [facility] Tobacco smoking status Never [facility] History of tobacco use Current smoker [facility] History of tobacco use Cigarette Smoker P [facility] Start: 04-10-2022 Tobacco use and exposure Smoke less tobacco non-user [facility] Start: 04-19-2023 Alcohol intake Ex-drinker (finding) [facility] Start: 12-18-2022 End: 03-29-2023 History of Social function [facility] Do you belong to any clubs or organizations such as oriental orthodox groups, unions, fraternal or athletic groups, or school groups? Yes [facility] Are you now , , , , never or living with a partner? Never [facility] How often to you hav e a drink containing alcohol? Never [facility] How many standard dr inks containing alcohol do you have on a typical day? 1 or 2 [facility] Do you feel stress - tense, restless, nervous, or anxious, or unable to sleep at night because your mind is troubled all the time - these days [OSQ] Only a little [facility] Start: 1991 Sex Assigned At Not on file P [facility] Goals Date Patient Goal Desired Activity /State Personal health goal Comment on above: Formatting of this n ote might be different from the original. Evaluation of progress towards goal: self care, family support Functional Status Date Assessment Result Facility 09-05-2022 Functional Status N/A [facility] 08-10-2022 Functional Status N/A [facility] 07-17-2022 Functional Status N/A [facility] [place] 02-16-2022 Functional Status N/A [facility] Clinical Notes 07-05-2022 to 04-25-2023 Dee Dee Hernandez RN - 04/25/2023 4:00 PM EST Note Date & Type Note Facility 04-25-2023 History of Present illness Narrative Images from the original note were not included. left for patient to return call. MD Dee Dee Bradley RN She is cleared from Hematology standpoint for hysterectomy. I recommend the following lexi-operative anticoagulation: The patient's last dose of 20 mg Xarelto will be 05/14/2023 Her hysterectomy will be 05/18/2023. Resume 10 mg Xarelto 05/19/2023 (If it is ok with Dr. Albright) If there is no bleeding complication, resume full dose 20 mg Xarelto 05/23/2023 Previous Messages ----- Message ----- From: Dee Dee Hernandez RN Sent: 04/24/2023 3:33 PM EST To: Juan C Kaminski MD Subject: surgical clearance DR. ALBRIGHT'S OFFICE CALLED TO CONFIRM HER SURGERY DATE FOR CLEARANCE IS 05/18/23 documented in this encounter [employer] 04-06-2023 Note 04/06/2023 Subjective Patient ID: Blanca Rudolph is a 32 y.o. female HPI: This is a 48-mcrgu-rzu-female patient on [place]covy presenting to [facility] for a 3 month follow-up visit for preexposure prophylaxis to prevent HIV infection (PReP). The patient reports tolerance and compliance to ART without adverse reaction. Of note, the patient was found to have a RPR titer of 1:1024 on 11/22/2022 during her autoimmune work-up at [facility] for SLE and nephrotic syndrome. She completed [...] List Diagnosis Stage IV lupus nephritis (WHO) ([facility]) Exposure to HIV Latent syphilis Vitamin D deficiency SLE (systemic lupus erythematosus) ([facility]/HCC) Pulmonary embolism ([facility]) Positive serology for syphilis On anticoagulant therapy Nephrotic syndrome Menorrhagia with irregular cycle Low grade squamous intraepithelial lesion (LGSIL) on cervicovaginal cytologic smear Low grade squamous intraepithelial lesion (LGSIL) on cervical Pap smear History of severe pre-eclampsia History of DVT (deep vein thrombosis) Fibromyalgia Encounter for alf use of mycophenolate mofetil Delivery of by [...] 1.0 times per week Types: Marijuana Comment: Loyal pen Sexual activity: None Other Topics Concern None Social History Narrative None Social Determinants of Health Financial Resource Strain: Not on file Food Insecurity: Not on file Tr (more content not included)... [facility] 01-05-2023 Note 01/05/2023 Subjective Patient ID: Blanca Rudolph is a 32 y.o. female who presents for preexposure prophylaxis to prevent HIV infection (PReP). HPI: This is a 79-adqga-arx-female patient on Descovy for preexposure prophylaxis to prevent HIV infection (PReP). The patient reports tolerance and compliance to ART without adverse reaction. Of note, the patient was found to have a RPR titer of 1:1024 on 11/22/2022 during her autoimmune work-up at [facility] for SLE and nephrotic syndrome. She completed [...] List Diagnosis Lupus nephritis, ISN/RPS class IV (CMS/HCC) Exposure to HIV Past Surgical History: No [...] 1.0 times per week Types: Marijuana Comment: Loyal pen Sexual activity: Not on file Other [...] file. Allergies: Allerg (more content not included)... [facility] 12-15-2022 Note 12/15/2022 Subjective Patient ID: Blanca Rudolph is a 32 y.o. female patient HPI: This is a 23-kmuch-qfp-female patient who presents to clinic to establish preexposure prophylaxis to prevent HIV infection (PReP). Of note, the patient was previously admitted to [facility] on 11/22/2022; patient was recently diagnosed [...] latent syphilis and a follow-up at the [facility] for PREP. Patient states she completed 2.4 M unit IM Bicillin X2 inpatient on 11/25 and 12/02; [facility] She states partner was also treated with [...] List Diagnosis Lupus nephritis, ISN/RPS class IV (CMS/HCC) Exposure to HIV Past Surgical History: History [...] 1.0 times per week Types: Marijuana Comment: Loyal pen Sexual activity: None Other Topics Concern None Social History Narrative None Social Determinants of Health Financial Resource Strain: Not on file Food Insecurity: Not on file Transp (more content not included)... [facility] 12-05-2022 Note We received a prescr iption from Dr. Flowers for a [facility] inpatient for Lupkynis 15.8mg BID. The patient is currently in house and has follow up scheduled with another blood bank credit clerk later in the week, but we will [...] will likely need to coordinate with the accountant machine processing program for the patient to access. Teagan Lyons, PharmD, BCACP, CSP 12/05/22 3:00 PM [facility] [phone] [facility] 08-08-2023 Note PA approved through 12/04/23. Patient start form filled out and sent via email to Dr Flowers. Will need patient signature as well. LM for pt, she might still be in the hospital. Gayathri Lynch, PharmD, BCACP 12/06/22 3:40 PM [facility] [phone] [facility] 12-05-2022 Note A prior authorizatio n has been submitted via CMM. We are waiting on a determination. Nora Laura CPhT [facility] 12/05/22 3:41 PM [facility] 09-05-2022 Note Chief Complaint Referral Billy Zelaya [...] to stop - water only* avoids scented ROLL FORGER products no *has been using lavender scented [...] E&M of New Patient Moderate 45-59 Min 37716 Measure Post Void residual urine and/or bladder capacity by US- non-imaging 07466 Urnls Dip Stick Auto w/o Microscopy POC 61862 Orders: nitrofurantoin, See Instructions, 1 cap(s) Oral PRN after intercourse to prevent UTI, # 15 cap(s), Refills(s) 6, Pharmacy: [facility] #[id number], 172, cm, 09/05/22 9:24:00 EDT, Height/Length Dosing, 132, kg, 09/05/22 9:24:00 EDT, Weight Dosing Follow-up With When Contact Information PAULINA PA-C, CYNTHIA E, URL Within 6 months [address] [place] [phone] [facility] (1) Additional Instructions: Patient Education Urinary Tract [...] not included)... [facility] Comment on above: Result Comment: Elec tronically Signed By: CYNTHIA GALLARDO PA-C\.br\Date and Time Signed: 09/05/22 10:30 EDT 09-05-2022 [...] Treatment for this condition includes: Antibiotic medicine. Iuuf-sxp-zhmyoze medicines to treat discomfort. Drinking enough water [...] Follow these instructions at home: Medicines Take wkwd-ssd-tffmpfg and prescription medicines only as told by [...] provider. Document Revised: 11/26/2020 Document Reviewed: 11/26/2020 NavigatorMD Patient Education 2022 [employer]. Follow Up Care 08/15/2022 10:04:33 With:PAULINA JOY, CYNTHIA Haywood, URL Address: [address] [place] [address] Business (1) When:[address] [facility] 08-10-2022 Hospital Discharge instructions Patient Education 08/10/2022 [...] powder, vinegar, hot sauces, and barbecue sauce. ?[place] fruit juices and citrus fruits, such as oranges, shirley, and limes. ?Tomato-based foods, such as red sauce, chili, salsa, and pizza with red sauce. ?Fried and fatty foods, such as donuts, armenian fries, potato chips, and high-fat dressings. ?High-fat [...] to any changes in your symptoms. Take tcpr-tie-saisifk and prescription medicines only as told by [...] you have new or worsening symptoms. Take obmz-qpm-ttuegou and prescription medicines only as told by [...] 01/24/2006 Document Revised: 10/23/2018 Document Reviewed: 10/23/2018 NavigatorMD Patient Education 2020 [employer]. 08/10/2022 11:48:18 Gastritis, Adult Gastritis, Adult Gastritis [...] medicines. These include steroids, antibiotics, and some qeqv-wcu-wvovgfk medicines, such as aspirin or ibuprofen. Having [...] Follow these instructions at home: Medicines Take jvnd-ujs-vjjrcod and prescription medicines only as told by [...] 04/10/2002 Document Revised: 09/03/2018 Document Reviewed: 09/03/2018 NavigatorMD Patient Education 2020 [employer]. Follow Up Care 07/24/2022 08:58:51 With:Katrin Resendiz CNP Address: When:3 months [facility] 07-11-2022 Evaluation + Plan note Extrac stephanie from: Title:CSB SHER Author:Suresh XIONG, Brett Tripathi Date:07/11/22 Plan [place] [employer]esthesi[employer] (ASA) physical status classification: Class III. Anesthetic Preoperative Plan: Anesthesia General. Future Appointments Appointment Date:07/17/2022 11:40:00 AM Scheduled Provider:Miki Mauricio MD Location:[facility] Appointment Type: Post Op 15 [facility]03-14-2023 Hospital Discharge instructions Patient Education 07/11/2022 09:54:16 [...] and water are not available, use hand measuring clerk. ?Change your dressing as told by your [...] health care provider approves. General instructions Take mrjk-pkh-ukqzltf and prescription medicines only as told by your health care provider. To prevent or treat constipation while you are taking prescription pain medicine, your health care provider may recommend that you: ?Drink enough fluid to keep your urine clear or pale yellow. ?Take sflh-kho-grqexcc or prescription medicines. ?Eat foods that are [...] 04/16/2006 Document Revised: 03/29/2018 Document Reviewed: 10/02/2016 [employer] Patient Education 2020 [employer]. Follow Up Care 06/26/2022 11:12:42 With:Miki Mauricio Address: [address] [place] [phone] Business (1) When: Unknown Comments:Appointment has already been scheduled [facility]03-14-2023 NoteHistory and Physical Update H&P Reviewed. Patient [...] mg, Oral, Daily Nexplanon, 68 mg, SubCutaneous [place] 325 mg-5 mg oral tablet, 1 tab(s), [...] Crohn's disease: Aunt.[facility] [place]03-08-2023 Note [id number] [place] Evaluation + Plan note Future Appointments Appointment Date:03/03/2022 12:45:00 PM Scheduled Provider: Location:[facility] Appointment Type:Surgery PAT COVID Testing Appointment Date:03/10/2022 01:00:00 PM Scheduled Provider: Location:[facility] Appointment Type:Surgery [facility] Evaluation + Plan note Future Appointments Appointment Date:03/13/2023 02:30:00 PM Scheduled Provider:CYNTHIA GALLARDO PA-C Location:[facility] Appointment Type:URO Office Visit [facility] course Narrative No data available for this section [facility] Hospital Discharge instructions No data available for this section [facility] InstructionsNot on filedocumented in this encounter [facility] No data available for this section [facility] Summary Purpose Family History No Family History Records FoundNo Family History Records Found No data available for this section No Family History Records FoundNo Family History Records FoundNo Family History Records FoundNo Family History Records Found Advance Directives No Advanced Directives Records FoundLatest Code Status on File Code Status Date Activated Date Inactivated Comments Full Code 12/17/2022 9:01 PM 12/19/2022 11:22 AM Code Status History Code Status Date Activated Date Inactivated Comments Full Code 11/22/2022 5:10 PM 12/04/2022 8:24 PM Full Code 06/09/2020 10:32 PM 06/16/2020 12:01 AM Full Code 06/02/2020 11:25 AM 06/05/2020 5:47 PM Full Code 05/25/2020 1:53 PM 05/26/2020 2:43 PM Additional Source Comments Patient Care team informatio n (unrecognized section and content) Health Promotion Officer Relationship Specialty Start Date End Date Billy Zelaya PA-C [address] [place] [address] PCP - General Physician Office Agent 03/17/23 INFORMATION SOURCE (unrecogn ized section and content) DATE CREATED AUTHOR [facility]/23/2022 [facility] DATE CREATED AUTHOR AUTHOR'S ORGANIZ ATION 02/12/2023 [facility] DATE CREATED AUTHOR AUTHOR'S ORGANIZ ATION 04/17/2023 [facility] DATE CREATED AUTHOR AUTHOR'S ORGANIZ ATION 04/17/2023 [facility] DATE CREATED AUTHOR AUTHOR'S ORGANIZ ATION 04/19/2023 [facility] EPIC DATE CREATED AUTHOR AUTHOR'S BRITT ATION 05/06/2023 [facility] FOR RECORDS PERTAINING TO PATIENTS WHO [...] BE BASED ON THE PRIMARY CLINICAL RECORDS. [facility] [employer] provides no warranty or guarantee of the accuracy or completeness of information in this document.
--- NOTE | 2023-05-07 10:48 | ECG_ITS ---
[facility] Test Date: 2023-05-07 Pat Name: BLANCA RUDOLPH Department: Room: - Gender: Female [employer] St[employer]: : 1990 Requested By: BENTLEY ERNANDEZ Order Number: [id number] Reading MD: CHELSEA SPAULDING Measurements Intervals [place] Rate: 64 P: 46 HI: 101 QRS: 8 QRSD: 96 T: 190 QT: 431 QTc: 446 Interpretive Statements Possible INf-Latearl ischemia - diffuse T changes LEFT VENTRICULAR HYPERTROPHY AND ST-T CHANGE [VOLTAGE CRITERIA PLUS ST/T ABNORMALITY] Compared to ECG 12/14/2022 15:42:12 Short HI interval now present Left ventricular hypertrophy now present ST (T wave) deviation still present Electronically Signed On 05-08-2023 5:33:18 EST by CHELSEA SPAULDING
--- NOTE | 2023-05-07 10:48 | XR_ITS ---
[address] [address] Patient Name: BLANCA RUDOLPH MRN: [id number] date: 1990 Sex: F Assigned Patient Location: [facility] Current Patient Location: [facility] Accession/Order Number: [id number] Exam Date: 05/07/2023 11:08 Report Date: 05/07/2023 11:54 At the request of: BENTLEY ERNANDEZ Procedure: XR chest 2V EXAM: XR chest 2V HISTORY: Preop exam COMPARISON: Chest study dated 10/01/2022 TECHNIQUE: PA and lateral views of the chest were obtained. FINDINGS: Heart and mediastinal contours are unremarkable in appearance. No acute infiltrate or consolidations are seen. No obvious pneumothorax. Slight convexity of the dorsal spine to the right. XR/XR chest 2V IMPRESSION: No acute process seen in the chest. Electronically authenticated by: BO YUEN Date: 05/07/2023 11:54
[2023-05-07 11:39] LABS: Magnesium 1.8 mg/dL (1.8-2.4)
== END 2023-05-07 09:54 | disposition home or self-care (01) ==
LOC: PST 09:54
PROVIDERS: Visit Provider Obstetrics & Gynecology
DX: N92.0 Excessive and frequent menstruation with regular cycle (principal); R10.2 Pelvic and perineal pain; Z97.5 Presence of (intrauterine) contraceptive device
CPT/HCPCS: 71046; 83735; 93005

== ENCOUNTER 2023-08-06 09:08 | Outpatient (OUT) | payer OTHER, SELFPAY ==
--- NOTE | 2023-08-06 09:59 | P.GSHP_ITS ---
History of Present Illness History of Present Illness Chief complaint: MENORRHAGIA, PELVIC PAIN Narrative: Patient presents for preadmission testing. The patient reports pelvic pain and heavy menstrual periods despite being on Nexplanon. The patient has an extensive medical history and sees multiple specialists. She has a history of deep vein thrombosis and PE in 2020, Nephrotic syndrome, chest pain; currently under treatment for chronic intermittent chest pain, hypertension, lupus, and fibromyalgia. She denies any recent hospitalizations, and states she is doing well with her current medication regimen. Review of Systems ROS0 Narrative REVIEW OF SYSTEMS: Negative except as stated in HPI, ten or more systems reviewed. Constitutional: No fever , chills, weakness ENT: No sore throat or epistaxis Cardiovascular: No edema, palpitations, or activity intolerance Respiratory: No shortness of breath, cough, or wheezing Musculoskeletal: Chronic joint pain and swelling Gastrointestinal: No abdominal pain, constipation, diarrhea, or vomiting Genitourinary: No dysuria or hematuria Neurological: No numbness, tingling, weakness, or headache Psychiatric: No mood changes PFSH PFS Medical History (Updated 08/06/23 @ 09:57 by Dee Dee Guzman NP) Nephritis ?N05.9 - Unspecified nephritic syndrome with unspecified morphologic changes (ICD-10) Nephrotic syndrome ?N04.9 - Nephrotic syndrome with unspecified morphologic changes (ICD-10) Syphilis ?A53.9 - Syphilis, unspecified (ICD-10) History of blood transfusion ?Z92.89 - Personal history of other medical treatment (ICD-10) Anemia ?D64.9 - Anemia, unspecified (ICD-10) Deep vein thrombosis ?I82.409 - Acute embolism and thrombosis of unspecified deep veins of unspecified lower extremity (ICD-10) Anxiety ?F41.9 - Anxiety disorder, unspecified (ICD-10) COVID-19 ?U07.1 - COVID-19 (ICD-10) Bronchitis ?J40 - Bronchitis, not specified as acute or chronic (ICD-10) Migraine ?G43.909 - Migraine, unspecified, not intractable, without status migrainosus (ICD-10) Pelvic pain ?R10.2 - Pelvic and perineal pain (ICD-10) Menorrhagia ?N92.0 - Excessive and frequent menstruation with regular cycle (ICD-10) Heartburn ?R12 - Heartburn (ICD-10) Hypertension ?I10 - Essential (primary) hypertension (ICD-10) Fibromyalgia ?M79.7 - Fibromyalgia (ICD-10) Pulmonary emboli ?I26.99 - Other pulmonary embolism without acute cor pulmonale (ICD-10) Abnormal biopsy of kidney ?R89.7 - Abnormal histological findings in specimens from other organs, systems and tissues (ICD-10) Breakthrough bleeding on Nexplanon ?N92.1 - Excessive and frequent menstruation with irregular cycle (ICD-10) ?Z97.5 - Presence of (intrauterine) contraceptive device (ICD-10) Lupus ?M32.9 - Systemic lupus erythematosus, unspecified (ICD-10) Surgical History (Updated 05/07/23 @ 10:34 by Dee Dee Guzman NP) History of tubal ligation ?Z98.51 - Tubal ligation status (ICD-10) History of section ?Z98.891 - History of uterine scar from previous surgery (ICD-10) History of section ?Z98.891 - History of uterine scar from previous surgery (ICD-10) History of section ?Z98.891 - History of uterine scar from previous surgery (ICD-10) History of cholecystectomy ?Z90.49 - Acquired absence of other specified parts of digestive tract (ICD- 10) Family History (Updated 05/07/23 @ 10:34 by Dee Dee Guzman NP) Other Cardiac hypertrophy Family history of COPD (chronic obstructive pulmonary disease) Family history of breast cancer Family history of diabetes mellitus Family history of gastric cancer Family history of hypertension Family history of stroke Kawasaki disease Murmur Social History (Updated 05/07/23 @ 10:30 by Dee Dee Guzman NP) Within the past year, how often did you have a drink containing alcohol: never Score interpretation: A score less than 3 is consistent with normal alcohol consumption. Smoking status: Former smoker Non-prescribed substance use: cannabis (any form) Highest level of school completed/degree received: high school graduate Meds Home Medications and Allergies Home Medications ?Medication ?Instructions ?Recorded ?Confirmed ?Type B-12 Compliance 10/01/22 History ferrous sulfate 325 mg (65 mg 325 mg PO DAILY 10/01/22 05/07/23 History iron) tablet (FeroSul) acetaminophen 500 mg tablet 500 mg PO Q6H PRN pain 12/13/22 05/07/23 History allopurinol 100 mg tablet 100 mg PO DAILY 12/13/22 05/07/23 History bumetanide 2 mg tablet 2 mg PO Q12H 12/13/22 05/07/23 History magnesium oxide 400 mg (241.3 mg 400 mg PO .12HR 12/13/22 05/07/23 History magnesium) tablet mycophenolate mofetil 250 mg 1,500 mg PO Q12H 12/13/22 05/07/23 History capsule prednisone 20 mg tablet 20 mg PO DAILY 12/13/22 08/06/23 History rivaroxaban 20 mg tablet (Xarelto) 20 mg PO DAILY 12/13/22 05/07/23 History albuterol sulfate 90 mcg/actuation 2 inh inhalation Q4H PRN shortness 05/07/23 05/07/23 History aerosol inhaler of breath or wheezing emtricitabine 200 mg-tenofovir 1 tab PO QPM 05/07/23 08/06/23 History alafenamide fumarate 25 mg tablet (Descovy) ergocalciferol (vitamin D2) 1,250 50,000 unit PO QWEEK 05/07/23 05/07/23 History mcg (50,000 unit) capsule (Vitamin D2) medroxyprogesterone 10 mg tablet 10 mg PO DAILY 05/07/23 05/07/23 History potassium chloride 20 mEq 20 meq PO BID 05/07/23 05/07/23 History tablet,extended release(part/cryst) amitriptyline 25 mg tablet 25 mg PO DAILY 08/06/23 08/06/23 History aspirin 81 mg tablet,delayed 81 mg PO DAILY 08/06/23 08/06/23 History release (Adult Aspirin Regimen) carvedilol 6.25 mg tablet (Coreg) 6.25 mg PO BID 08/06/23 08/06/23 History cetirizine 10 mg tablet 10 mg PO DAILY 08/06/23 08/06/23 History dicyclomine 10 mg capsule 10 mg PO DAILY 08/06/23 08/06/23 History etonogestrel 68 mg subdermal subdermal 08/06/23 History implant (Nexplanon) famotidine 20 mg tablet (Pepcid) 20 mg PO DAILY 08/06/23 08/06/23 History methocarbamol 750 mg tablet 750 mg PO Q8H PRN muscle pain 08/06/23 08/06/23 History ubrogepant 50 mg tablet (Ubrelvy) 50 mg PO DAILY PRN migraine 08/06/23 08/06/23 History headache Allergies Allergy/AdvReac Type Severity Reaction Status Date / Time Sulfa (Sulfonamide Allergy Unknown Verified 08/06/23 09:29 Antibiotics) cephalexin [From Keflex] AdvReac Verified 08/06/23 09:29 ibuprofen [From Motrin] AdvReac Verified 08/06/23 09:29 Exam Narrative Exam Narrative: Constitutional: Awake, alert, comfortable, well-appearing, nontoxic, interactive, vital signs as charted Head: Normocephalic, atraumatic Neck: Supple, normal appearance, normal range of motion, no meningeal signs, no lymphadenopathy Respiratory: No respiratory distress, breath sounds clear Cardiovascular: Regular rate and rhythm, strong and regular heart tones Abdomen: Nontender, normal bowel sounds, soft, no CVA tenderness Musculoskeletal: Normal gait, no swelling or edema Skin: No rashes or induration, no lesions, only visible skin inspected Neuro: No neurological deficits, normal sensation Psychiatric: Oriented ?3, normal affect Assessment and Plan Assessment and Plan (1) Menorrhagia: (2) Pelvic pain: (3) Breakthrough bleeding on Nexplanon: Plan Diagnostic laparoscopy, possible BHAVIK, possible FOE, possible bilateral salpingo- oophorectomy, D and C, hysteroscopy, possible Myosure scheduled with Dr. Albright 08/16/2023.
[2023-08-06 10:08] LABS: Basophils Percent Auto 0.2 % (0.2-2.0); Eosinophils Percent Auto 0.2 % (0.9-7.0); Hematocrit 36.8 % (36.0-48.0); Hemoglobin 12.5 g/dL (12.0-16.0); Immature Granulocytes Abs Auto 0.05 10^3/uL (0.00-0.03); Immature Granulocytes Pct Auto 0.6 % (0.0-0.5); Lymphocytes Percent Auto 10.5 % (20.5-60.0); Mean Corpuscular Volume 91.3 fL (81.0-99.0); Mean Platelet Volume 9.1 fL (9.5-13.5); Monocytes Absolute Auto 0.4 10^3/uL (0.3-0.8); Monocytes Percent Auto 4.9 % (1.7-12.0); Neutrophils Absolute Auto 7.6 10^3/uL (1.4-6.5); Neutrophils Percent Auto 83.6 % (43.0-75.0); Platelet Count 266 10^3/uL (150-450); Red Blood Count 4.03 10^6/uL (4.20-5.40); Red Cell Distribution Width 12.3 % (11.0-15.0)
[2023-08-06 10:23] LABS: Anion Gap 13.8; BUN Creatinine Ratio 29.6; Calcium 8.1 mg/dL (8.5-10.1); Carbon Dioxide 29.4 mmol/L (21.0-32.0); Chloride 99 mmol/L (98-107); Estimated GFR (African America 38 (>=60); Estimated GFR (Non-African Ame 32 (>=60); Glucose 193 mg/dL (74-106); Magnesium 1.8 mg/dL (1.8-2.4); Potassium 3.2 mmol/L (3.5-5.1); Sodium 139 mmol/L (136-145)
[2023-08-06 11:07] LABS: INR 1.22; Partial Thromboplastin Time 36.9 sec (22.3-36.2); Prothrombin Time 12.8 sec (9.0-11.6)
== END 2023-08-06 09:09 | disposition home or self-care (01) ==
PROVIDERS: Visit Provider Obstetrics & Gynecology
DX: Z01.812 Encounter for preprocedural laboratory examination (principal); Z01.818 Encounter for other preprocedural examination; N92.0 Excessive and frequent menstruation with regular cycle; R10.2 Pelvic and perineal pain; Z97.5 Presence of (intrauterine) contraceptive device
CPT/HCPCS: 80048; 83735; 85025; 85610; 85730; G0463

== ENCOUNTER 2023-08-16 05:55 | Day surgery (SDC) | payer OTHER, SELFPAY ==
[2023-05-07 10:44] VITALS: BP 127/82; PULSE 74; RESP 20; TEMP 36.5; O2SAT 98; BMI 40.3
[2023-08-06 09:54] VITALS: BP 111/75; PULSE 77; TEMP 36.3; O2SAT 97; BMI 39.1
[2023-08-16] VITALS (9 sets, daily range): BP systolic 97–127; BP diastolic 60–79; PULSE 53–75; TEMP 35.8–36.1; O2SAT 97–100; BMI 38.6
--- OUTSIDE RECORDS SUMMARY | 2023-08-16 05:59 | XMS_ITS | CCD ---
Author Organization [facility] Care Team Providers Care Stationary Equipment Mechanic Name Role Phone BILLY ZELAYA Primary Care Physician Unavailab MELONY Simms Consulting Unavailable BRANDY ALEXIS Primary Care Unavailable MELONY THURSTON Attending Unavailable MELONY THURSTON Admitting Unavailable AWAIS, DR HAGAN Consulting Unavailable BRANDY ALEXIS Primary Care Unavailable AWAIS, DR HAGAN Attending Unavailable AWAIS, DR HAGAN Admitting Unavailable Issa Guerrero Primary Care UnavailBilly Salcedo PA-C Primary Care Provider [phone] Billy Zelaya PA-C Primary Care Provider [phone] Billy Zelaya PA-C Primary Care Provider SIMONE FRANKLIN Attending Unavailable SIMONE FRANKLIN Referring Unavailable BILLY ZELAYA Primary Care Unavailable Miki Mauricio Attending Unavailable Jazmin ZAMAN Referring Unavailable Billy Zelaya Primary Care Unavailable Billy Zelaya Primary Care Unavailable CYNTHIA GALLARDO Attending Unavailable Billy Zelaya Referring Unavailable CYNTHIA GALLARDO Attending Unavailable Miki Mauricio Attending Unavailable Miki Mauricio Admitting Unavailable Miki Mauricio Referring Unavailable Billy Zelaya Primary Care Unavailable Billy Zelaya A Primary Care Unavailable Katrin Resendiz Attending Unavailable Katrin Resendiz Admitting Unavailable Miki Mauricio Attending Unavailable Miki Mauricio Admitting Unavailable Billy Zelaya Primary Care Unavailable Miki Mauricio Referring Unavailable Nathalie, Billy A Primary Care Unavailable Billy Zelaya Referring Unavailable CYNTHIA GALLARDO Attending Unavailable Nathalie, Billy A Primary Care Unavailable Astrid, Katrin A Attending Unavailable Billy Zelaya A Primary Care Unavailable Miki Mauricio Attending Unavailable Jazmin ZAMAN Referring Unavailable Nathalie, Billy A Primary Care Unavailable Miki Mauricio Attending Unavailable Zelaya, Billy A Primary Care Unavailable Zelaya, Billy A Primary Care Unavailable CYNTHIA GALLARDO Attending Unavailable DOLSEY, SIMONE Jenkins Attending Unavailable DOLSEY, SIMONE A Referring Unavailable ZELAYA, BILLY A Primary Care Unavailable DOLSEY, SIMONE A Attending Unavailable DOLSEY, SIMONE A Referring Unavailable ZELAYA, BILLY A Primary Care Unavailable CHILO BAIN Referring Unavailable ZELAYA, BILLY A Primary Care Unavailable AWAIS, MAYCO Attending Unavailable AWAIS, MAYCO Attending Unavailable AIYEWUNMI, ORIN Attending Unavailable AIYEWUNMI, ORIN Attending Unavailable AIYEWUNMI, ORIN Attending Unavailable AIYEWUNMI, ORIN Attending Unavailable CALLE, SHERMAN N Attending Unavailable ZELAYA, BILLY A Referring Unavailable ZELAYA, BILLY A Primary Care Unavailable CALLE, SHERMAN N Attending Unavailable ZELAYA, BILLY A Referring Unavailable ZELAYA, BILLY A Primary Care Unavailable CALLE, SHERMAN N Attending Unavailable ZELAYA, BILLY A Referring Unavailable ZELAYA, BILLY A Primary Care Unavailable CALLE, SHERMAN N Referring Unavailable ZELAYA, BILLY A Primary Care Unavailable ZELAYA, BILLY A Primary Care Unavailable ORIN GAYTAN Attending Unavailable FREDERICK BAGUH Consulting Unavailable CORTEZ, ETELVINA Admitting Unavailable QAFISHEH, QUTAIBA Referring Unavailable ZELAYA, BILLY A Primary Care Unavailable DOT VALLEJO Referring Unavailable ZELAYA, BILLY A Primary Care Unavailable PASQUALE ALEXANDER Attending Unavailable ZELAYA, BILLY A Referring Unavailable ZELAYA, BILLY A Primary Care Unavailable MAYLIN PORTILLO Attending Unavailable ZELAYA, BILLY A Referring Unavailable ZELAYA, BILLY A Primary Care Unavailable FROY HARMON Attending Unavailable ZELAYA, BILLY A Referring Unavailable ZELAYA, BILLY A Primary Care Unavailable CHILO BAIN Referring Unavailable ZELAYA, BILLY A Primary Care Unavailable TUYET WARREN Attending Unavailable ZELAYA, BILLY A Primary Care Unavailable ZELAYA, BILLY A Primary Care Unavailable PASQUALE ALEXANDER Referring Unavailable ZELAYA, BILLY A Primary Care Unavailable CALLE, SHERMAN Referring Unavailable ZELAYA, BILLY A Primary Care Unavailable MAYLIN PORTILLO Attending Unavailable MAYLIN PORTILLO Referring Unavailable ZELAYA, BILLY A Primary Care Unavailable ZELAYA, BILLY A Referring Unavailable ZELAYA, BILLY A Primary Care Unavailable ZELAYA, BILLY A Primary Care Unavailable IZA SOSA Attending Unavailable DONALDO HAHN Attending Unavailable DONALDO HAHN Referring Unavailable ZELAYA, BILLY A Primary Care Unavailable ZELAYA, BILLY A Primary Care Unavailable SARAH MAC Attending Unavailable SARAH MAC Attending Unavailable SARAH MAC Referring Unavailable ZELAYA, BILLY Jenkins Primary Care Unavailable SIMONE FRANKLIN Attending Unavailable ZELAYA, BILLY A Referring Unavailable ZELAYA, BILLY A Primary Care Unavailable ZELAYA, BILLY A Primary Care Unavailable JUSTICE CHACON Attending Unavailable ZELAYA, BILLY A Primary Care Unavailable ERMIAS CHACON Attending Unavailable ZELAYA, BILLY A Primary Care Unavailable ERMIAS SHI Attending Unavailable ZELAYA, BILLY A Primary Care Unavailable DONNIE HERRERA Attending Unavailable ZELAYA, BILLY A Primary Care Unavailable ZELAYA, BILLY A Primary Care Unavailable MAXIMINO CHAPMAN Attending Unavailable MAXIMINO CHAPMAN Referring Unavailable ZELAYA, BILLY A Primary Care Unavailable ZELAYA, BILLY A Primary Care Unavailable SHANTEL BOWDEN Attending Unavailabl e SHANTEL BOWDEN Attending Unavailabl e SHANTEL BOWDEN Referring Unavailabl e ZELAYABILLY Primary Care Unavailable Allergies Allergy Classification Reported Allergen(s) Allergy Type Date of Onset Reaction(s) Facility (20 sources) Cephalexin; Translations: [cephalexin] Drug Allergy 05-03-19 Pain in lower limb (finding) [facility] [place] (20 sources) Ibuprofen; Translations: [ibuprofen] Drug Allergy 12-16-19 medication interference [facility] (20 sources) Sulfamethoxazole / Trimethoprim; Translations: [sulfamethoxazole-t rimethoprim] Drug Allergy 05-14-19 Eruption of skin (disorder), Rash [facility] Comment on above: ??? pt says she gets 'heat rash' often. however developed 'worse' rash than usual shortly after taking bactrim. has taken previously with NO reaction. (5 sources) Sulfamethoxazole / Trimethoprim; Translations: [SULFAMETHOXAZOLE-T RIMETHOPRIM] Drug Allergy 05-14-19 [facility] (1 source) Sulfamethoxazole / Trimethoprim; Translations: [Bactrim] Drug Allergy [facility] (1 source) No Known Medication Allergies; Translations: [No Known Medication Allergies] Propensity to adverse reactions (disorder) [facility] (20 sources) Garlic preparation; Translations: [GARLIC] Drug Allergy 06-19-19 [facility] Medications Current Medications Medication Drug Class(es) Dates Sig (Normalized) Sig (Original) acetaminophen 325 mg oral tablet (20 sources) Start: 06-03-2023 take 2 tablets by mouth every six hours as needed for pain acetaminophen (TylenoL) 325 mg tablet Take 2 tablets (650 mg total) by mouth every 6 (six) hours as needed for pain. 30 tablet 0 06/03/2023 Active Start: 08-15-2022 take 1 tablet by chavez th every six hours as needed for pain acetaminophen (TYLENOL EXTRA STRENGTH) 500 mg tablet Take 1 tablet (500 mg total) by mouth every 6 (six) hours as needed for pain. 30 tablet 0 08/15/2022 Active acetaminophen 325 mg / HYDROcodone bitartrate 5 mg oral tablet (1 source) Opioid Agonist Start: 07-11-2022 End: 07-13-2022 Vera 325 mg-5 mg oral tablet 1 tab(s), Oral, q6hr as needed for pain, 10 tab(s), Refill(s) 0, [facility] #[id number], 175.2, cm, 07/05/22 12:31:00 EST, Height/Length Dosing, 136, kg, 07/05/22 12:31:00 EST, Weight Dosing Start Date: 07/11/22 Stop Date: 07/13/22 Status: Ordered [id number] 200 actuat albuterol 0.09 mg/actuat metered dose inhaler (1 source) beta2-Adrenergic Agonist Start: 08-02-2023 take 2 puff(s) by inhalation every six hours as needed for wheezing albuterol (PROVENTIL HFA;VENTOLIN HFA) 90 mcg/actuation inhaler Indications: Dyspnea on exertion Inhale 2 puffs every 6 (six) hours as needed for wheezing. 18 g 11 08/02/2023 Active allopurinol 100 mg oral tablet (15 sources) Xanthine Oxidase Inhibitor take 1 tablet by mouth in the morning allopurinoL (ZYLOPRIM) 100 mg tablet Take 1 tablet (100 mg total) by mouth in the morning. 0 Active amitriptyline hydrochloride 25 mg oral tablet (20 sources) Tricyclic Antidepressant Start: 07-05-2023 amitriptyline (ELAVIL) 25 mg tablet Indications: Daily headache , Migraine without aura and without status migrainosus, not intractable , Fibromyalgia Take 1 tablet (25 mg) nightly 30 tablet 5 07/05/2023 Active Start: 05-03-2023 End: 07-05-2023 take 1 tablet by mouth once daily amitriptyline (ELAVIL) 10 mg tablet Indications: Fibromyalgia Take 1 tablet (10 mg total) by mouth nightly. 30 tablet 2 07/04/2023 07/05/2023 Discontinued (Reorder) Start: 04-02-2023 take 1 tablet by chavez once daily amitriptyline (ELAVIL) 10 mg tablet Indications: Fibromyalgia Take 1 tablet (10 mg total) by mouth nightly. 30 tablet 2 04/02/2023 Active aspirin 81 mg delayed release oral tablet (17 sources) Platelet Aggregation Inhibitor, Nonsteroidal Anti-inflammatory Drug take 1 tablet by mouth in the morning aspirin 81 mg Take 1 tablet (81 mg total) by mouth in the morning. 0 Active atovaquone 150 mg/ml oral suspension (3 sources) Antimalarial, Antiprotozoal take 5 mL by mouth in the morning atovaquone (MEPRON) 750 mg/5 mL suspension Take 5 mL (750 mg total) by mouth in the morning. 0 Active bumetanide 2 mg oral tablet (20 sources) Loop Diuretic Start : 12-28 take 1 tablet by mouth twice daily before mealtime bumetanide (BUMEX) 2 mg tablet Take 1 tablet (2 mg total) by mouth 2 (two) times a day before meals. 90 tablet 0 12/28/2022 Active carvedilol 6.25 mg oral tablet (7 sources) alpha-Adrenergic Edgar, beta-Adrenergic Edgar Start : 07-11 take 1 tablet by mouth in the morning, then take 1 tablet by mouth at bedtime carvediloL (COREG) 6.25 mg tablet Take 1 tablet (6.25 mg total) by mouth in the morning and 1 tablet (6.25 mg total) before bedtime. 60 tablet 11 07/12/2023 Active cholecalciferol 1.25 mg oral capsule (17 sources) Vitamin D take 1 capsule by mouth every week cholecalciferol (VITAMIN D3) 50,000 units capsule Take 1 capsule (50,000 Units total) by mouth once a week. 0 Active cyclobenzaprine hydrochloride 10 mg oral tablet (4 sources) Muscle Relaxant Start : 06-16 take 1 tablet by mouth twice daily as needed for muscle spasms cyclobenzaprine (FLEXERIL) 10 mg tablet Take 1 tablet (10 mg total) by mouth 2 (two) times a day as needed for muscle spasms. 10 tablet 0 06/16/2023 Active dicyclomine hydrochloride 10 mg oral capsule (20 sources) Anticholinergic Start : 02-16 End: 02-11 take 1 capsule by mouth four times daily Bentyl 10 mg Cap 10 mg = 1 cap(s), Oral, QID, X 30 day(s), # 120 cap(s), Refills(s) 11, Pharmacy: [facility] #[id number], 172, cm, 02/16/22 12:26:00 EDT, Height/Length Dosing, 133, kg, 02/16/22 12:26:00 EDT, Weight Dosing Start Date: 02/16/22 Stop Date: 02/11/23 Status: Ordered emtricitabine 200 mg / tenofovir alafenamide 25 mg oral tablet (17 sources) Human Immunodeficiency Virus Nucleoside Analog Reverse Transcriptase Inhibitor take 1 tablet by mouth once in the morning DESCOVY 200-25 mg per tablet Take 1 tablet by mouth in the morning. 0 Active 0.4 ml enoxaparin sodium 100 mg/ml prefilled syringe (4 sources) Low Molecular Weight Heparin Start : 07-04 End: 07-14 inject 0.4 mL by subcutaneous injection in the morning enoxaparin (LOVENOX) 40 mg/0.4 mL syringe Inject 0.4 mL (40 mg total) under the skin in the morning for 10 days. 4 mL 0 07/05/2023 07/15/2023 Active etonogestrel 68 mg drug implant (9 sources) Progestin Start : 02-16 Nexplanon 68 mg, SubCutaneous, in pts right arm, Refills(s) 0, control/menstrual regulation Start Date: 02/16/22 Status: Ordered Start: 02-16-2022 Nexplanon Refi lls(s) 0, control/menstrual regulation Start Date: 02/16/22 Status: Ordered Start: 02-16-2022 Nexplanon Refi lls(s) 0 Start Date: 02/16/22 Status: Ordered famotidine 20 mg oral tablet (13 sources) Histamine-2 Receptor Antagonist Start: 07-12-2023 take 1 tablet by mouth in the morning famotidine (PEPCID) 20 mg tablet Take 1 tablet (20 mg total) by mouth in the morning. 30 tablet 1 07/12/2023 Active Start: 07-05-2022 take 1 tablet by chavez th once daily as needed Pepcid 20 mg [...] Ordered ferrous sulfate 325 mg oral tablet (20 sources) Start: 06-15-2020 take 1 tablet by mouth once daily at breakfast ferrous sulfate (FERROUSUL) 325 (65 FE) mg tablet Take 1 tablet (325 mg total) by mouth daily with breakfast. 30 tablet 6 06/15/2020 Active fluocinonide 0.5 mg/ml topical solution (3 sources) Corticosteroid Start: 03-09-2023 fluocinonide (LIDEX) 0.05 % external solution Apply 1 Application topically in the morning. 0 03/09/2023 Active ketoconazole 20 mg/ml medicated shampoo (20 sources) Azole Antifungal Start: 03-09-2023 ketoconazole (NIZORAL) 2 % shampoo Apply 1 Application topically 2 (two) times a week. 0 03/09/2023 Active lidocaine 0.05 mg/mg medicated patch (3 sources) Antiarrhythmic, Amide Local Anesthetic Start: 02-27-2023 apply 1 dose transdermal route once daily, then apply 1 dose transdermal route every twelve hours lidocaine (LIDODERM) 5 % Place 1 patch on the skin daily. Remove & Discard patch within 12 hours or as directed by MD Christiano almazan 0 02/27/2023 Active lisinopril 10 mg oral tablet (9 sources) Angiotensin Converting Enzyme Inhibitor Start: 02-16-2022 take 10 mg by mouth once daily lisinopril 10 mg, Oral, Daily, Refills(s) 0, High blood pressure Start Date: 02/16/22 Status: Ordered Start: 02-16-2022 lisinopril Ref ills(s) 0, High blood pressure Start Date: 02/16/22 Status: Ordered Start: 02-16-2022 lisinopril Ref ills(s) 0 Start Date: 02/16/22 Status: Ordered magnesium oxide 400 mg oral tablet (17 sources) Start: 06-04-2023 take 1 tablet by mouth in the morning, then take 1 tablet by mouth at bedtime magnesium oxide (MAGOX) 400 mg tablet Take 1 tablet (400 mg total) by mouth in the morning and 1 tablet (400 mg total) before bedtime. 0 06/04/2023 Active medroxyPROGESTERone acetate 10 mg oral tablet (20 sources) Progestin Start: 03-20-2023 take 1 tablet by mouth in the morning PROVERA 10 mg tablet Take 1 tablet (10 mg total) by mouth in the morning. 0 03/20/2023 Active methocarbamol 750 mg oral tablet (7 sources) Muscle Relaxant methocarbamoL (ROBAXIN) 750 mg tablet Take 1 tablet (750 mg total) by mouth as needed for muscle spasms. 0 Active multivitamin (THERAGRAN) tablet (17 sources) Start: 03-29-2023 take 1 tablet by mouth in the morning multivitamin (THERAGRAN) tablet Take 1 tablet by mouth in the morning. 0 03/29/2023 Active mycophenolate mofetil 500 mg oral tablet (20 sources) Start: 05-03-2023 End: 07-31-2023 take 3 tablets intravenously twice daily mycophenolate (CELLCEPT) 500 mg tablet Indications: Stage IV lupus nephritis (WHO) ([facility]) , Systemic lupus erythematosus, unspecified SLE type, unspecified organ involvement status ([facility]) , 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 mofetil 3 tab twice daily 180 tablet 3 07/31/2023 Active Start: 04-02-2023 take 3 tablets intra venously twice daily mycophenolate (CELLCEPT) 500 mg tablet Indications: Stage IV lupus nephritis (WHO) ([facility]) , Systemic lupus erythematosus, unspecified SLE type, unspecified organ involvement status ([facility]) , 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 mofetil 3 tab twice daily 180 tablet 5 04/02/2023 Active nitrofurantoin, macrocrystals 50 mg oral capsule (2 sources) Nitrofuran Antibacterial Start: 09-05-2022 nitrofurantoin macrocrystals 50 mg Cap See Instructions, 1 cap(s) Oral PRN after intercourse to prevent UTI, # 15 cap(s), Refills(s) 6, Pharmacy: [facility] #[id number], 172, cm, 09/05/22 9:24:00 EDT, Height/Length Dosing, 132, kg, 09/05/22 9:24:00 EDT, Weight Dosing Start Date: 09/05/22 Status: Ordered ondansetron 4 mg disintegrating oral tablet (15 sources) Serotonin-3 Receptor Antagonist Start: 06-03-2023 take 1 tablet by mouth every eight hours as needed for nausea ondansetron ODT (ZOFRAN ODT) 4 mg disintegrating tablet Dissolve 1 tablet (4 mg total) on tongue every 8 (eight) hours as needed for nausea for up to 10 doses. 10 tablet 0 06/03/2023 Active Start: 01-11-2023 take 1 tablet by chavez th every eight hours as needed for nausea ondansetron ODT (ZOFRAN ODT) 4 mg disintegrating tablet Dissolve 1 tablet (4 mg total) on tongue every 8 (eight) hours as needed for nausea for up to 10 doses. 10 tablet 0 01/11/2023 Active microencapsulated potassium chloride 20 meq extended release oral tablet (20 sources) Start: 12-21-2022 take 1 tablet by mouth in the morning potassium chloride (KLOR-CON M 20) 20 MEQ CR tablet Take 1 tablet (20 mEq total) by mouth in the morning and 1 tablet (20 mEq total) before bedtime. 180 tablet 3 12/21/2022 Active predniSONE 20 mg oral tablet (20 sources) Start: 05-16-2023 End: 07-31-2023 take 1 tablet by mouth in the morning, then take 1 tablet by mouth once daily predniSONE (DELTASONE) 20 mg tablet Indications: Stage IV lupus nephritis (WHO) ([facility]) , Systemic lupus erythematosus, unspecified SLE type, unspecified organ involvement status ([facility]) Take 1 tablet (20 mg total) by mouth in the morning. One tab daily. 30 tablet 1 07/31/2023 Active Start: 04-02-2023 take 1.5 tablets int ravenously once daily, then take 1 tablet intravenously once daily predniSONE (DELTASONE) 20 mg tablet Indications: Stage IV lupus nephritis (WHO) ([facility]) , Systemic lupus erythematosus, unspecified SLE type, unspecified organ involvement status ([facility]) , senior care systemic steroid user 1.5 tab daily for 2 weeks,then 1 tab daily 45 tablet 1 04/02/2023 Active rivaroxaban 20 mg oral tablet (20 sources) Factor Xa Inhibitor Start: 02-16-2022 End: 06-28-2023 take 1 tablet by mouth in the morning rivaroxaban (XARELTO) 20 mg tablet tablet Take 1 tablet (20 mg total) by mouth in the morning. 90 tablet 3 06/28/2023 Active Start: 02-16-2022 Xarelto Refill s(s) 0, Blood Thinner Start Date: 02/16/22 Status: Ordered Start: 02-16-2022 Xarelto Refill s(s) 0 Start Date: 02/16/22 Status: Ordered ubrogepant 100 mg oral tablet (9 sources) Start: 07-05-2023 ubrogepant (UB RELVY) 100 mg tablet Indications: Migraine without aura and without status migrainosus, not intractable , Uncontrolled hypertension Take 1 tablet just after onset of migraine. May repeat the dose after 2 hours if CURRY persists. Max of 2 doses per 24 hours. 16 tablet 5 07/05/2023 Active vitamin b12 1 mg oral tablet (20 sources) Vitamin B12 take 1 tablet by mouth in the morning cyanocobalamin 1000 MCG tablet Take 1 tablet (1,000 mcg total) by mouth in the morning. 0 Active voclosporin 7.9 mg capsule (3 sources) Start: 07-31-2023 voclosporin 7. 9 mg capsule Indications: Stage IV lupus nephritis (WHO) ([facility]) Take 23.7 mg by mouth in the morning and 23.7 mg before bedtime. 60 capsule 3 07/31/2023 Active Start: 07-31-2023 End: 07-31-2023 voclosporin 7.9 mg capsule I ndications: Stage IV lupus nephritis (WHO) ([facility]) Take 23.7 mg by mouth in the morning and 23.7 mg before bedtime. 60 capsule 3 07/31/2023 07/31/2023 Discontinued (Reorder) Completed/Discontinued Medications Medication Drug Class(es) Dates Sig (Normalized) Sig (Original) metoprolol tartrate 25 mg oral tablet (17 sources) beta-Adrenergic Edgar Start: 06-15-2023 End: 07-12-2023 take 1 tablet by mouth in the morning, then take 1 tablet by mouth at bedtime metoprolol tartrate (LOPRESSOR) 25 mg tablet Take 1 tablet (25 mg total) by mouth in the morning and 1 tablet (25 mg total) before bedtime. 0 06/15/2023 07/12/2023 Discontinued take 1 tablet by chavez th every twenty-four hours at bedtime metoprolol succinate XL (TOPROL XL) 25 m g 24 hr tablet Take 1 tablet (25 mg total) by mouth in the morning and at bedtime. 0 Active NIFEdipine 60 mg osmotic 24 hr extended release oral tablet (11 sources) Dihydropyridine Calcium Channel Edgar Start: 05-22-2023 End: 06-19-2023 take 1 tablet by mouth every twenty-four hours in the morning NIFEdipine XL (PROCARDIA XL) 60 mg 24 hr tablet Take 1 tablet (60 mg total) by mouth in the morning. 0 05/22/2023 06/19/2023 Discontinued Start: 01-25-2023 End: 04-25-2023 take 1 tablet by mouth every twenty-four hours in the morning NIFEdipine XL (PROCARDIA XL) 30 mg 24 hr tablet Take 1 tablet (30 mg total) by mouth in the morning for 90 days. 90 tablet 0 01/25/2023 04/25/2023 Active omeprazole 20 mg delayed release oral capsule (20 sources) Proton Pump Inhibitor Start: 11-07-2022 End: 07-12-2023 take 1 capsule by mouth once daily before breakfast omeprazole (PriLOSEC) 20 mg capsule Take 1 capsule (20 mg total) by mouth every morning before breakfast. 0 11/07/2022 07/12/2023 Discontinued Start: 08-10-2022 End: 02-06-2023 take 1 capsule by mouth once daily omeprazole 40 mg Cap-DR 40 mg = 1 cap(s), Oral, Daily, X 90 day(s), # 90 cap(s), Refills(s) 1, Pharmacy: [facility] #[id number], 175, cm, 08/10/22 12:49:00 EDT, Height/Length Dosing, 133.3, kg, 08/10/22 12:49:00 EDT, Weight Dosing Start Date: 08/10/22 Stop Date: 02/06/23 Status: Ordered Start: 03-10-2022 take 1 capsule by mo uth once daily omeprazole 40 mg Cap-DR 40 mg = 1 cap(s), Oral, Daily, # 30 cap(s), Refills(s) 2, Pharmacy: [facility] #[id number], 172, cm, 03/10/22 12:42:00 EST, Height/Length Dosing, 133, kg, 03/10/22 12:42:00 EST, Weight Dosing Start Date: 03/10/22 Status: Ordered sevelamer carbonate 800 mg oral tablet (11 sources) Phosphate Binder Start: 02-02-2023 End: 07-12-2023 sevelamer (RENVELA) 800 mg tablet Take 2 tablets (1,600 mg total) by mouth in the morning and 2 tablets (1,600 mg total) at noon and 2 tablets (1,600 mg total) in the evening. Take with meals. 0 02/02/2023 07/12/2023 Discontinued Start: 02-02-2023 sevelamer (LAUREL KENNEY) 800 mg tablet Take 1 tablet (800 mg total) by mouth in the morning and 1 tablet (800 mg total) at noon and 1 tablet (800 mg total) in the evening. Take with meals. 0 02/02/2023 Active Problems Active Problems Problem Classification Problem Date Documented Da te Episodic/Chronic Abdominal pain (20 sources) Epigastric pain; Translations: [Epigastric pain] Onset: 1 Episodic Allergic reactions (3 sources) Environmental allergy; Translations: [Other allergy status, other than to drugs and biological substances] Onset: 4 08-02-2023 Episodic Anxiety disorders (10 sources) Anxiety disorder; [...] without cholecystitis without obstruction] Onset: 2 Episodic Blindness and vision defects (3 sources) Eye / vision finding; Translations: [Unspecified visual disturbance] Onset: 4 07-05-2023 Episodic Cardiac dysrhythmias (1 source) Tachycardia, unspecified; Translations: [Tachycardia, unspecified] Onset: 4 Episodic Chronic kidney disease (1 source) Chronic kidney disease stage 3; Translations: [Stage 3 chronic kidney disease, unspecified whether stage 3a or 3b CKD ([facility] 06-13-2023 Chronic Chronic kidney disease (2 sources) Chronic kidney disease; Translations: [Chronic kidney disease, stage 3 unspecified] Onset: 4 Coronary atherosclerosis and other heart disease (2 sources) Preinfarction syndrome; Translations: [Unstable angina] Onset: 4 06-06-2023 Chronic Deficiency and other anemia (20 sources) Anemia due to blood loss; Translations: [Iron deficiency anemia secondary to blood loss (chronic)] Onset: 1 06-23-2020 Chronic Deficiency and other anemia (6 sources) Anemia 07-05-2022 Episodic Diabetes mellitus without complication (9 sources) Type 2 diabetes mellitus 02-16-2022 Chronic Esophageal disorders (5 sources) Gastroesophageal reflux disease; Translations: [Gastroesophageal reflux disease without esophagitis] Onset: 3 08-10-2022 Chronic Essential hypertension (20 sources) Hypertensive disorder; Translations: [Essential (primary) hypertension] Onset: 9 02-15-2022 Chronic Fluid and electrolyte disorders (1 source) Dehydration; Translations: [Dehydration] Onset: 4 Episodic Gastritis and duodenitis (5 sources) Gastritis; Translations: [Gastritis, unspecified, without bleeding] Onset: 3 08-10-2022 Episodic Headache; including migraine (15 sources) Migraine without aura, not refractory ; Translations: [Migraine without aura, not intractable, without status migrainosus] Onset: 4 07-05-2023 Chronic Headache; including migraine (2 sources) Daily headache; Translations: [Daily headache] Onset: 4 07-05-2023 Episodic Headache; including migraine (2 sources) Headache; including migraine; Translations: [Headache, unspecified] Onset: 4 Menstrual disorders (20 sources) Menometrorrhagia; Translations: [Excessive and frequent menstruation with irregular cycle] Onset: 3 02-19-2023 Chronic Mood disorders (9 sources) Depressive disorder 02-16-2022 Chronic Nausea and vomiting (11 sources) Nausea; Translations: [Nausea] Onset: 2 Episodic Nephritis; nephrosis; renal sclerosis (20 sources) Nephrotic syndrome; Translations: [Nephrotic syndrome with unspecified morphologic changes] Onset: 3 12-17-2022 Chronic Nonspecific chest pain (20 sources) Chest pain; Translations: [Other chest pain] Onset: 4 06-19-2023 Episodic Nutritional deficiencies (20 sources) Vitamin D deficiency; Translations: [Vitamin D deficiency, unspecified] Onset: 3 11-28-2022 Chronic Other aftercare (1 source) long term care social worker (current) use of systemic steroids; Translations: [senior care (current) use of systemic steroids] Onset: 4 Episodic Other and ill-defined heart disease (2 sources) Cardiomegaly; Translations: [Cardiomegaly] Onset: 4 Chronic Other connective tissue disease (1 source) Myalgia, unspecified site; Translations: [Myalgia, unspecified site] Onset: 4 Episodic Other connective tissue disease (1 source) Pain in upper limb Onset: 4 Episodic Other gastrointestinal disorders (5 sources) Abdominal wind pain; Translations: [Gas pain] Onset: 3 08-10-2022 Episodic Other gastrointestinal disorders (1 source) Diarrhea, unspecified; Translations: [Diarrhea, unspecified] Onset: 4 Episodic Other lower respiratory disease (2 sources) Shortness of breath Onset: 4 Episodic Other lower respiratory disease (2 sources) Dyspnea on exertion; Translations: [Other forms of dyspnea] Onset: 4 08-02-2023 Episodic Other lower respiratory disease (1 source) Other forms of dyspnea; Translations: [Other forms of dyspnea] Onset: 4 Episodic Other lower respiratory disease (1 source) Cough Onset: 4 Episodic Other lower respiratory disease (1 source) Wheezing Onset: 4 Episodic Other lower respiratory disease (1 source) Shortness of breath; Translations: [Shortness of breath] Onset: 4 Episodic Other nervous system disorders (2 sources) Other chronic pain; Translations: [OTHER CHRONIC PAIN] Onset: 2 Chronic Other nutritional; endocrine; and metabolic disorders (9 sources) Morbid obesity 02-16-2022 Chronic Other nutritional; endocrine; and metabolic disorders (6 sources) Body mass index 40+ - severely obese 06-26-2022 Chronic Other nutritional; endocrine; and metabolic disorders (1 source) Body mass index 30+ - obesity; Translations: [Body mass index (BMI) 39.0-39.9, adult] 07-31-2023 Chronic Other nutritional; endocrine; and metabolic disorders (1 source) Body mass index (BMI) 39.0-39.9, adult; Translations: [Body mass index (BMI) 39.0-39.9, adult] Onset: 4 Chronic Other screening for suspected conditions (not mental disorders or infectious disease) (5 sources) Encounter for screening for malignant neoplasm of cervix; Translations: [Encounter for screening, unspecified] Onset: 2 Episodic Other upper respiratory disease (9 sources) Allergic rhinitis 02-16-2022 Chronic Other upper respiratory disease (1 source) Nasal congestion Onset: 4 Episodic Other upper respiratory infections (1 source) Acute upper respiratory infection, unspecified; Translations: [Acute upper respiratory infection, unspecified] Onset: 4 Episodic Pulmonary heart disease (20 sources) Pulmonary embolism; Translations: [Other pulmonary embolism without acute cor pulmonale] Onset: 0 07-05-2022 Episodic Sexually transmitted infections (not HIV or hepatitis) (20 sources) Syphilis titer test positive ; 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, unspecified as early or late] Onset: 3 11-28-2022 Chronic Spondylosis; intervertebral disc disorders; other back problems (9 sources) Backache 02-16-2022 Episodic Substance-related disorders (1 source) Other psychoactive substance use, unspecified, uncomplicated; Translations: [Other psychoactive substance use, unspecified, uncomplicated] Onset: 4 Episodic Systemic lupus erythematosus and connective tissue disorders (20 sources) Systemic lupus erythematosus; Translations: [Systemic lupus erythematosus, unspecified] Onset: 3 11-28-2022 Chronic Unclassified (6 sources) Drug therapy finding 06-26-2022 Unclassified (1 source) CP, shoulder blade pain Onset: 4 Unclassified (2 sources) New Patient Onset: 4 Unclassified (1 source) RUNNY NOSE, SORE THROAT Onset: 4 Unclassified (1 source) Overdose - Accidental Onset: 4 Urinary tract infections (3 sources) Urinary tract infectious disease; Translations: [Urinary tract infection, site not specified] Onset: 3 Episodic Past or Other Problems Problem Classification Problem Date Documented Da te Episodic/Chronic Acute and unspecified renal failure (20 sources) Acute injury of kidney; Translations: [Acute kidney failure, unspecified] Onset: 3 11-28-2022 Episodic Cancer of cervix (20 sources) Low grade squamous intraepithelial lesion on cervical Papanicolaou smear; Translations: [Low grade squamous intraepithelial lesion on cytologic smear of cervix (LGSIL)] Onset: 0 07-17-2022 Episodic Contraceptive and procreative management (20 sources) Sterilization requested; Translations: [Encounter for sterilization] Onset: 9 Resolved: 1 02-03-2020 Episodic Diabetes or abnormal glucose tolerance complicating ; childbirth; or the puerperium (20 sources) Abnormal glucose level; Translations: [Abnormal glucose complicating ] Onset: 0 Resolved: 1 06-30-2020 Episodic Early or threatened labor (20 sources) Finding of uterine contractions; Translations: [False labor, unspecified] Onset: 1 Resolved: 1 06-30-2020 Episodic Hemorrhage during ; abruptio placenta; placenta previa (20 sources) Low lying placenta; Translations: [Low lying placenta NOS or without hemorrhage, unspecified trimester] Onset: 9 Resolved: 0 02-03-2020 Episodic Immunizations and screening for infectious disease (5 sources) Encounter for screening for human papillomavirus (HPV); Translations: [Contact with and (suspected) exposure to human immunodeficiency virus [HIV]] Onset: 2 Episodic Mood disorders (20 sources) Mood disorders Onset: 3 Resolved: 4 12-18-2022 Other aftercare (3 sources) Other nursing home (current) drug therapy; Translations: [OTH [employer] WIRE FINISHER CURRENT DRUG THERAPY] Onset: 2 Episodic Other aftercare (20 sources) Drug therapy status; Translations: [Other ocean transportation intermediary (current) drug therapy] Onset: 3 12-20-2022 Episodic Other aftercare (17 sources) Drug therapy finding; Translations: [long term care social worker (current) use of anticoagulants] Onset: 3 02-19-2023 Episodic Other aftercare (14 sources) long term care social worker systemic steroid user; Translations: [senior care (current) use of systemic steroids] Onset: 3 07-04-2023 Episodic Other aftercare (3 sources) Long-term current use of drug therapy; Translations: [Other ocean transportation intermediary (current) drug therapy] Onset: 3 07-31-2023 Episodic Other complications of ; puerperium affecting management of mother (20 sources) Deliveries by ; Translations: [Encounter for delivery without indication] Onset: 1 06-02-2020 Episodic Other complications of ; puerperium affecting management of mother (20 sources) Suspected disorder; Translations: [Maternal care for other (suspected) abnormality and damage, not applicable or unspecified] Onset: 1 Resolved: 1 06-30-2020 Episodic Other complications of (20 sources) Maternal obesity complicating , childbirth and the puerperium, antepartum; Translations: [Obesity complicating , unspecified trimester] Onset: 9 Resolved: 1 06-30-2020 Chronic Other complications of (20 sources) Heartburn; Translations: [Other specified related conditions, unspecified trimester] Onset: 0 Resolved: 1 06-30-2020 Episodic Other connective tissue disease (20 sources) Fibromyalgia; Translations: [Fibromyalgia] Onset: 3 01-23-2023 Episodic Other connective tissue disease (2 sources) Fibromyalgia; Translations: [Fibromyalgia] Onset: 3 Episodic Other and delivery including normal (20 sources) Dichorionic diamniotic twin ; Translations: [Twin , dichorionic/diamniotic , second trimester] Onset: 9 Resolved: 1 07-17-2022 Episodic Phlebitis; thrombophlebitis and thromboembolism (20 sources) H/O: Deep vein thrombosis; Translations: [Personal history of other venous thrombosis and embolism] Onset: 0 11-28-2022 Episodic Polyhydramnios and other problems of amniotic cavity (20 sources) Polyhydramnios; Translations: [Polyhydramnios, second trimester, not applicable or unspecified] Onset: 9 Resolved: 0 02-03-2020 Episodic Residual codes; unclassified (20 sources) H/O: severe pre-eclampsia; Translations: [Personal history of other complications of , childbirth and the puerperium] Onset: 9 02-03-2020 Episodic Residual codes; unclassified (20 sources) ultrasound scan abnormal; Translations: [Pyelectasis of fetus on ultrasound] Onset: 9 Resolved: 0 02-03-2020 Episodic Superficial injury; contusion (20 sources) Intra-abdominal hematoma; Translations: [Contusion of abdominal wall, initial encounter] Onset: 1 06-09-2020 Episodic Unclassified (1 source) Exposure to 2019 novel coronavirus; Translations: [Contact with and (suspected) exposure to COVID19] Results Test Name Value Interpretation Reference Range Facility EOSINOPHIL, TOTALon 08-14-19 24 Eosinophils (Bld) [#/Vol] 0.0 10*3/uL Normal 0.0-0.4 [facility] Comment on above: Performed By: #### 1 0839-9 #### [facility] ([id number]) [address] [place] [address], [place] [address] CBC AND AUTO DIFFon 07-26-19 24 ABSOLUTE BASOPHIL 0.0 X10E9/L Normal 0.0-0.2 [facility] Comment on above: Performed By: #### C KINDRA, 43303-7, 1987-08, CMP, [facility]8-2, 4485-9 ####[facility] ([id number])[address], [address] [place] [address] ABSOLUTE NEUTROPHIL 7.7 X10E9/L High 1.5-6.6 [facility] Comment on above: Performed By: #### Nataliia ARGUELLES, 25049-8, 1986-08, CMP, [facility]-2, 4485-9 ####[facility] ([id number])[address], [address] [place] [address] 16821 Basophils/100 WBC (Bld) 0.2 % Normal [facility] Comment on above: Performed By: #### Nataliia ARGUELLES, 45020-3, 1987-08, CMP, [facility]-2, 4485-9 ####[facility] ([id number])[address], [address] [place] [address]27 Eosinophils (Bld) [#/Vol] 0.0 10*3/uL Normal 0.0-0.4 [facility] Comment on above: Performed By: #### Nataliia ARGUELLES, 54068-7, 1987-08, CMP, [facility]-2, 4485-9 ####[facility] ([id number])[address], [address] [place] [address]39 Eosinophils/100 WBC (Bld) 0.0 % Normal [facility] Comment on above: Performed By: #### Nataliia ARGUELLES, 98123-4, 1987-08, [facility], [facility]8-2, 4485-9 ####[facility] ([id number])[address], [address] [place] [address] 24863 Erythrocyte distribution width (RBC) [Ratio] 14.9 % Normal 11.5-15.0 [facility] Comment on above: Performed By: #### Nataliia ARGUELLES, 46734-6, 1987-08, [facility], [facility]-2, 448-9 ####[facility] ([id number])[address] [address] [place] [address]86 Hematocrit (Bld) [Volume fraction] 37.7 % Normal 35-47 [facility] Comment on above: Performed By: #### Nataliia ARGUELLES, 10601-9, 1987-08, [facility], [facility]-2, 448-9 ####[facility] ([id number])[address], [address] [place] [address]20 Hemoglobin (Bld) [Mass/Vol] 13.0 g/dL Normal 11.7-15.5 [facility] Comment on above: Performed By: #### Nataliia ARGUELLES, 34283-3, 1987-08, CMP, [facility]8-2, 4485-9 ####[facility] ([id number])[address] [address] [place] [address] Lymphocytes (Bld) [#/Vol] 0.5 10*3/uL Low 1.0-3.5 [facility] Comment on above: Performed By: #### Nataliia ARGUELLES, 25894-3, 1987-08, CMP, [facility]8-2, 4485-9 ####[facility] ([id number])[address] [address] Lymphocytes/100 WBC (Bld) 6.2 % Normal [facility] Comment on above: Performed By: #### Nataliia ARGUELLES, 85478-9, 1987-08, CMP, 4498-2, 4484-9 ####[facility] ([id number])[address] [address] [place] [address]6790 MCH (RBC) [Entitic mass] 31.4 pg Normal 27-34 [facility] Comment on above: Performed By: #### Nataliia ARGUELLES, 21688-6, 1987-08, CMP, 4498-2, 4484-9 ####[facility] ([id number])[address] [address] [place] [address] 77231 MCHC (RBC) [Mass/Vol] 34.5 g/dL Normal 32-36 [facility] Comment on above: Performed By: #### Nataliia ARGUELLES, 66439-8, 1987-08, [facility], [facility]8-2, 4484-9 ####[facility] ([id number])[address] [address] MCV (RBC) [Entitic vol] 91 fL Normal 80-100 [facility] Comment on above: Performed By: #### Nataliia ARGUELLES, 81147-0, 1987-08, [facility], [facility]-2, 2609 ####[facility] ([id number])[address] [address] Monocytes (Bld) [#/Vol] 0.3 10*3/uL Normal 0-0.9 [facility] Comment on above: Performed By: #### Nataliia ARGUELLES, 47539-5, 1987-08, CMP, [facility]8-2, 113-9 ####[facility] ([id number])[address] [address] Monocytes/100 WBC (Bld) 3.2 % Normal [facility] Comment on above: Performed By: #### Nataliia ARGUELLES, 43335-2, 1987-08, CMP, 4498-2, 789-9 ####[facility] ([id number])[address] [address] [place] [address] 40083 Neutrophils/100 WBC (Bld) 90.4 % Normal [facility] Comment on above: Performed By: #### Nataliia ARGUELLES, 49959-7, 1987-08, CMP, 4498-2, 4485-9 ####[facility] ([id number])[address] [address] [place] [address] 48288 Platelet mean volume (Bld) [Entitic vol] 8.0 fL Normal 7-12 [facility] Comment on above: Performed By: #### Nataliia ARGUELLES, 39133-8, 1987-08, CMP, 4498-2, 4485-9 ####[facility] ([id number])[address] [address] [place] [address] 11890 Platelets (Bld) [#/Vol] 266 10*3/uL Normal 150-450 [facility] Comment on above: Performed By: #### Nataliia ARGUELLES, 50807-2, 1987-08, CMP, 4498-2, 4485-9 ####[facility] ([id number])[address] [address] RBC COUNT 4.14 X10E12/L Normal 3.80-5.20 [facility] Comment on above: Performed By: #### Nataliia ARGUELLES, 51009-4, 1987-08, CMP, 4498-2, 4485-9 ####[facility] ([id number])[address] [address] WBC (Bld) [#/Vol] 8.5 10*3/uL Normal 4.0-11.0 [facility] Comment on above: Performed By: #### Nataliia ARGUELLES, 43416-8, 1987-08, CMP, 4498-2, 4485-9 ####[facility] ([id number])[address] [address] CCL GENERIC ORDERon 07-26-19 TEST NAME KAVIN ROMAN Normal [facility] Comment on above: Performed By: #### 1 0839-9 #### [facility] ([id number]) [address] [place] [address] TEST RESULT See Below Normal [facility] Comment on above: Result Comment: NOTE TEST RESULT FLAG UNIT REF.RANGE ----- Crithidia lucillae Negative Negative Crithidia luciliae assay is used as an aid in diagnosis of systemic lupus erythematosus (SLE). A negative result cannot rule out SLE. Low positive titers may be seen with other systemic autoimmune diseases. Clinical correlation is required. CRITHIDIA LUCILIAE Test Performed By: [facility] [address] [place] [address] Mining Manager: Alberto Dominguez III, M.D. CLIA #[id number] Performed By: #### 1 0839-9 #### [facility] ([id number]) [address] [place] [address] COMPREHENSIVE METABOLIC PANE Gerardo 07-26-2023 Albumin [Mass/Vol] 3.9 g/dL Normal 3.2-5.3 [facility] Comment on above: Performed By: #### 1 0839-9 #### [facility] ([id number]) [address] [place] [address]90 ALP [Catalytic activity/Vol] 47 U/L Normal 39-130 [facility] Comment on above: Performed By: #### 1 0839-9 #### [facility] ([id number]) [address] [place] [address]704 ALT [Catalytic activity/Vol] 10 U/L Normal 0-31 [facility] Comment on above: Performed By: #### 1 0839-9 #### [facility] ([id number]) [address] [place] [address] 21851 Anion gap [Moles/Vol] 10 mmol/L Normal 5-15 [facility] Comment on above: Performed By: #### 1 0839-9 #### [facility] ([id number]) [address] [place] [address] [place] [address] AST [Catalytic activity/Vol] 11 U/L Normal 0-41 [facility] Comment on above: Performed By: #### 1 0839-9 #### [facility] ([id number]) [address] [place] [address] 06023 Bilirubin [Mass/Vol] 0.5 mg/dL Normal 0.3-1.2 [facility] Comment on above: Performed By: #### 1 0839-9 #### [facility] ([id number]) [address] [place] [address]24 Calcium [Mass/Vol] 8.9 mg/dL Normal 8.5-10.5 [facility] Comment on above: Performed By: #### 1 0839-9 #### [facility] ([id number]) [address] [place] [address] 31527 Chloride [Moles/Vol] 100 mmol/L Normal 98-109 [facility] Comment on above: Performed By: #### 1 0839-9 #### [facility] ([id number]) [address] [place] [address] 91921 CO2 [Moles/Vol] 31 mmol/L Normal 22-32 [facility] Comment on above: Performed By: #### 1 0839-9 #### [facility] ([id number]) [address] [place] [address], [place] [address] Creatinine [Mass/Vol] 1.57 mg/dL High 0.40-1.00 [facility] Comment on above: Result Comment: METH OD TRACEABLE TO IDMS STANDARD Performed By: #### 1 0839-9 #### [facility] ([id number]) [address] [place] [address]35 GFR/1.73 sq M.predicted among non-blacks MDRD (S/P/Bld) [Vol rate/Area] 45 mL/min/{1.73_m2} Low >59 [facility] Comment on above: Result Comment: Reported eGFR is based on the CKD-EPI 2020 equation that does not use a race coefficient. Performed By: #### 1 0839-9 #### [facility] ([id number]) [address] [place] [address]878 Glucose [Mass/Vol] 135 mg/dL High 65-99 [facility] Comment on above: Performed By: #### 1 0839-9 #### [facility] ([id number]) [address] [place] [address] 24291 Potassium [Moles/Vol] 3.4 mmol/L Low 3.5-5.0 [facility] Comment on above: Performed By: #### 1 0839-9 #### [facility] ([id number]) [address] [place] [address] 10618 Protein [Mass/Vol] 6.5 g/dL Normal 6.0-8.0 [facility] Comment on above: Performed By: #### 1 0839-9 #### [facility] ([id number]) [address] [place] [address] 8[address]29 Sodium [Moles/Vol] 141 mmol/L Normal 134-146 [facility] Comment on above: Performed By: #### 1 0839-9 #### [facility] ([id number]) [address] [place] [address] 56801 Urea nitrogen [Mass/Vol] 34 mg/dL High 5-23 [facility] Comment on above: Performed By: #### 1 0839-9 #### [facility] ([id number]) [address] [place] [address]50 CRP [Mass/Vol]on 07-26-2023 C REACTIVE PROTEIN 0.4 mg/dL Normal 0.000-0.744 [facility] Comment on above: Performed By: #### 1 0839-9 #### [facility] ([id number]) [address] [place] [address] Complement C3 [Mass/Vol]on 0 07-26-2023 COMPLEMENT C3 140 mg/dL Normal 86-184 [facility] Comment on above: Performed By: #### C KINDRA, 28317-7, 1987-08, CMP, 4498-2, 4485-9 ####[facility] ([id number])[address] [facility], [address] [place] [address] Complement C4 [Mass/Vol]on 0 07-26-2023 COMPLEMENT C4 29 mg/dL Normal 16-47 [facility] Comment on above: Performed By: #### 1 0839-9 #### [facility] ([id number]) [address] [place] [address] 12876 ESR Photometric method (Bld) [Velocity]on 07-26-2023 ESR, ERYTHROCYTE SEDIMENTATION RATE 3 mm/h Normal 0-20 [facility] Comment on above: Performed By: #### C BCA, 18648-4, 1987-08, CMP, 4498-2, 4485-9 ####[facility] ([id number])[address] [facility], [address] [place] [address] Laboratory comment Francisco (Repo rt)on 07-26-2023 UNLISTED LAB TEST Sent to reference lab Normal [facility] Comment on above: Performed By: #### 1 0839-9 #### [facility] ([id number]) [address] [place] [address] 79675 PROTEIN CREAT RATIOon 2023 RANDOM URINE PROTEIN 480 mg/L High <120 [facility] Comment on above: Performed By: #### 1 0839-9 #### [facility] ([id number]) [address] [place] [address] U/PRO/JAVA PROGRAMMER RATIO CALC 1.13 High <0.2 [facility] Comment on above: Result Comment: Neph rotic Syndrome is associated with ratios >3.5 Performed By: #### 1 0839-9 #### [facility] ([id number]) [address] [place] [address] 85687 URINE CREATININE,RDM 42.43 mg/dL Normal [facility] Comment on above: Performed By: #### 1 0839-9 #### [facility] ([id number]) [address] [place] [id number] URINALYSISon 07-26-2023 Bilirubin Ql (U) Negative Normal NEG [facility] BLOOD/HGB Large Abnormal NEG [facility] Color (U) YELLOW Normal YELLOW [facility] Glucose Ql (U) Negative Normal NEG [facility] Hyaline casts LM Ql (Urine sed) 1 /lpf Normal 0-2 [facility] Ketones Ql (U) Negative Normal NEG [facility] Leukocyte esterase Test strip Ql (U) Negative Normal NEG [facility] MUCOUS PRESENT Abnormal NONE [facility] Nitrite Ql (U) Negative Normal NEG [facility] pH (U) 6.0 [pH] Normal 5.0-8.5 [facility] Protein Ql (U) 50 mg/dL Abnormal NEG [facility] R.B.CELLS 48 /hpf High 0-5 [facility] Specific gravity (U) [Rel density] 1.009 Normal 1.003-1.035 [facility] SQUAMOUS EPITHELIUM 4 /hpf Normal 0-5 [facility] TURBIDITY CLEAR Normal CLEAR [facility] Urobilinogen (U) [Mass/Vol] mg/dL Normal <1.1 [facility] W.B.CELLS 2 /hpf Normal 0-5 [facility] MR BRAIN WO CONTon 4 MR BRAIN WO CONT MR BRAIN WO CONT HISTORY: A 32-year-old female with the history of the lupus and fibromyalgia. Complaining of daily headaches, vision changes and change in migraine characteristics. TECHNIQUE: Multiplanar and multisequence MRI examination of brain is performed without intravenous contrast administration. COMPARISON: Comparison is made with the CT scan of the brain of 10/25/2021. FINDINGS: The ventricular system is normal in size and configuration. There is normal differentiation of muñiz and white matters. Diffusion-weighted study demonstrates no evidence of restricted diffusion to suggest acute or subacute age of infarction. There is no evidence of intracranial mass, hemorrhage or acute pathology. The cerebellum and brainstem are unremarkable. No mass effect, midline shift of the structures or extra-axial fluid collections are noted. There is a partial empty sella. The cavernous carotid and and basilar arteries are patent. Visualized paranasal sinuses and mastoid air cells are clear. IMPRESSION: * No evidence of intracranial mass, focal signal abnormality or acute pathology. * Partial empty sella. Finalized by Tommie Terrazas MD on 07/23/2023 10:13 AM Normal [facility] Orders Onlyon 07-18-2023 Orders Only [id number] Blanca Rudolph 1990 F Date Provider Department Center 07/18/2023 [facility]IN [facility]F [facility] Family History Problem Relation Age of Onset Hypertension Mother Hypertension Mother's Sister Crohn's disease Mother's Sister Hypertension Maternal Grandmother Breast cancer Maternal Grandmother Kidney disease Other Migraines Other Family Status - Relation Status Age at Mother Mother's Sister Maternal Grandmother Other Normal [facility] SARS/FLU A+B/RSV by NAAT/Mol ecularon 07-15-2023 SARS/FLU A+B/RSV by NAAT/Molecular FLU A PCR Negative (qualifier value) FLU B PCR Negative (qualifier value) RSV by PCR Negative (qualifier value) SARS CoV 2 Not detected (qualifier value) NOTE The Xpert Xpress SARS-CoV-2/Flu/RSV Plus test is a rapid, multiplexed real-time RT-PCR test intended for the simultaneous qualitative detection and differentiation of SARS-CoV-2, influenza A, influenza B and respiratory syncytial virus (RSV) viral RNA from individuals suspected of respiratory viral infection consistent with COVID-19 by their healthcare provider. This test has not been validated in asymptomatic patients. The Xpert Xpress SARS-CoV-2 test is intended for use by qualified and trained operators who are performing tests using either [employer] [facility] or [facility] systems and is limited to laboratories that meet the CLIA requirements to perform high and moderate complexity tests. The Xpert Xpress SARS-CoV-2/Flu/RSV Plus is only for use under the Food and Drug Administration's Emergency Use Authorization. Results are for the simultaneous detection and differentiation of SARS-CoV-2, influenza A, influenza B and RSV nucleic acids in clinical specimens. SARS-CoV-2, influenza A, influenza B and RSV RNA identified by this test are generally detectable in upper respiratory samples during the acute phase of infection. Positive results are indicative of the presence of the identified virus, but do not rule out bacterial infection or co-infection with other pathogens not detected by this test. Clinical correlation with patient history and other diagnostic information is necessary to determine patient infection status. The agent detected may not be the definite cause of disease. Negative results do not preclude SARS-CoV-2, influenza A, influenza B and RSV infection and should not be used as the sole basis for treatment or other patient management decisions. Negative results must be combined with clinical observations, patient history and epidemiological information. An Invalid result may occur with specimen-associated inhibition unable to be resolved with specimen repeat. Fact Sheet for Healthcare Providers: https://www.fda.gov/me fariha/661280/download Fact Sheet for Patients: https://www.fda.gov/me fariha/695043/download Normal [facility] Comment on above: Performed By: #### C OVFLR ####[facility] ([id number])[address] [place] [id number] Orders Onlyon 07-10-2023 Orders Only [id number] Blanca Rudolph 1990 F Date Provider Department Center 07/10/2023 Cheryl-JEFFERY WETZEL [facility] Ena [facility] Family History Problem Relation Age of Onset Hypertension Mother Hypertension Mother's Sister Crohn's disease Mother's Sister Hypertension Maternal Grandmother Breast cancer Maternal Grandmother Kidney disease Other Migraines Other Family Status - Relation Status Age at Mother Mother's Sister Maternal Grandmother Other Normal [facility] CBC WITH AUTO DIFFERENTIALon 07-06-2023 Basophils (Bld) [#/Vol] 0.02 10*3/uL Normal 0.00-0.20 [facility] Comment on above: Performed By: #### L [id number] #### [facility] (BEAKER) [address] [place] [address] Basophils/100 WBC (Bld) 0.2 % Normal 0.0-1.0 [facility] Comment on above: Performed By: #### L [id number] #### [facility] ([facility]) [address] [place] [address] Eosinophils (Bld) [#/Vol] 0.00 10*3/uL Normal 0.00-0.50 [facility] Comment on above: Performed By: #### L [id number] #### [facility] (BEAKER) [address] [place] [address] Eosinophils/100 WBC (Bld) 0.0 % Normal 0.0-6.0 [facility] Comment on above: Performed By: #### L [id number] #### [facility] (BEAKER) [address] [place] [address] Erythrocyte distribution width (RBC) [Ratio] 13.7 % Normal 11.5-15.0 [facility] Comment on above: Performed By: #### L [id number] #### [facility] (BEAKER) [address] [place] [address] ERYTHROCYTE MEAN CORPUSCULAR HEMOGLOBIN CONCENTRATION (G/DL) BY AUTOMATED 35.1 g/dL High 32.0-35.0 [facility] Comment on above: Performed By: #### L [id number] #### [facility] ([facility]) [address] [place] [address] Hematocrit (Bld) [Volume fraction] 37.0 % Normal 36.0-48.0 [facility] Comment on above: Performed By: #### L [id number] #### [facility] ([facility]) [address] [facility] [place] [address] Hemoglobin (Bld) [Mass/Vol] 13.0 g/dL Normal 12.0-15.0 [facility] Comment on above: Performed By: #### L [id number] #### [facility] ([facility]) [address] [place] [address] Immature granulocytes (Bld) [#/Vol] 0.05 10*3/uL Normal 0.00-0.20 [facility] Comment on above: Performed By: #### L [id number] #### [facility] ([facility]) [address] [place] [address] Immature granulocytes/100 WBC (Bld) 0.4 % Normal 0.0-1.0 [facility] Comment on above: Performed By: #### L [id number] #### [facility] ([facility]) [address] [place] [address] Lymphocytes (Bld) [#/Vol] 0.90 10*3/uL Low 1.20-4.00 [facility] Comment on above: Performed By: #### L [id number] #### [facility] ([facility]) [address] [place] [address] Lymphocytes/100 WBC (Bld) 8.0 % Low 20.0-45.0 [facility] Comment on above: Performed By: #### L [id number] #### [facility] ([facility]) [address] [facility] [place] [address] MCH (RBC) [Entitic mass] 30.6 pg Normal 27.0-33.0 [facility] Comment on above: Performed By: #### L [id number] #### [facility] (BEAKER) [address] [place] [address] MCV (RBC) [Entitic vol] 87.1 fL Normal 82.0-98.0 [facility] Comment on above: Performed By: #### L [id number] #### [facility] ([facility]) [address] [place] [address] Monocytes (Bld) [#/Vol] 0.37 10*3/uL Normal 0.10-1.00 [facility] Comment on above: Performed By: #### L [id number] #### [facility] ([facility]) [address] [place] [address] Monocytes/100 WBC (Bld) 3.3 % Low 5.0-12.0 [facility] Comment on above: Performed By: #### L [id number] #### [facility] ([facility]) [address] [place] [address] Neutrophils (Bld) [#/Vol] 9.95 10*3/uL High 1.60-7.60 [facility] Comment on above: Performed By: #### L [id number] #### [facility] ([facility]) [address] [place] [address] Neutrophils/100 WBC (Bld) 88.1 % High 40.0-72.0 [facility] Comment on above: Performed By: #### L [id number] #### [facility] ([facility]) [address] [place] [address] NRBC (PER 100 WBCS) BY AUTOMATED COUNT 0.0 % Normal 0 [facility] Comment on above: Performed By: #### L [id number] #### [facility] ([facility]) [address] [place] [address] PLATELETS (10*3/UL) IN BLOOD AUTOMATED COUNT 318 10*3/uL Normal 150-400 [facility] Comment on above: Performed By: #### L [id number] #### [facility] ([facility]) [address] [place] [address] RBC (Bld) [#/Vol] 4.25 10*6/uL Normal 3.80-5.00 [facility] Comment on above: Performed By: #### L [id number] #### [facility] (BEAKER) [address] [place] [address] WBC (Bld) [#/Vol] 11.29 10*3/uL High 4.00-10.60 [facility] Comment on above: Performed By: #### L [id number] #### [facility] ([facility]) [address] [place] [address] CHLAMYDIA TRACHOMATIS AND NE ISSERIA GONORRHEA, TMAon 07-06-2023 CHLAMYDIA TRACHOMATIS DNA PROBE (PRESENCE) IN UNSP SPEC Negative Normal Negative [facility] Comment on above: Result Comment: No C hlamydia trachomatis rRNA Detected. The Aptima Combo 2 Assay is a FDA approved target amplification nucleic acid probe test that utilizes target capture for the in vitro qualitative detection and differentiation of ribosomal RNA (rRNA) from Chlamydia trachomatis (CT) and/or Neisseria gonorrhoeae (GC) to aid the diagnosis of chlamydial and/or gonococcal urogenital disease using the [place] System. The Aptima Combo 2 Assay involves target capture, target amplification by Machine Packaging Technician-Mediated Amplification (TMA), and the detection of the amplification products (amplicon) by the Hybridization Protection Assay (HPA). The internal process controls of the [place] System monitor the target capture, amplification, and detection steps of the assay, this is not intended to control for sampling adequacy. Performed By: #### L [id number] ####[facility] (BEAKER)[address] [place] [address] NEISSERIA GONORRHOEAE DNA PROBE (PRESENCE) IN UNSP SPEC Negative Normal Negative [facility] Comment on above: Result Comment: No N eisseria gonorrhoeae rRNA Detected. The Aptima Combo 2 Assay is a FDA approved target amplification nucleic acid probe test that utilizes target capture for the in vitro qualitative detection and differentiation of ribosomal RNA (rRNA) from Chlamydia trachomatis (CT) and/or Neisseria gonorrhoeae (GC) to aid the diagnosis of chlamydial and/or gonococcal urogenital disease using the [place] System. The Aptima Combo 2 Assay involves target capture, target amplification by Machine Packaging Technician-Mediated Amplification (TMA), and the detection of the amplification products (amplicon) by the Hybridization Protection Assay (HPA). The internal process controls of the [place] System monitor the target capture, amplification, and detection steps of the assay, this is not intended to control for sampling adequacy. Performed By: #### L [id number] ####[facility] ([facility])[address] [place] [address] COMPREHENSIVE METABOLIC PANE Gerardo 07-06-2023 Albumin [Mass/Vol] 4.3 g/dL Normal 3.5-5.7 [facility] Comment on above: Performed By: #### L [id number] ####[facility] ([facility])[address] [place] [address] ALP [Catalytic activity/Vol] 46 U/L Normal 34-104 [facility] Comment on above: Performed By: #### L [id number] ####[facility] ([facility])[address] [place] [address] ALT [Catalytic activity/Vol] 10 U/L Normal 7-52 [facility] Comment on above: Performed By: #### L [id number] ####[facility] ([facility])[address] [place] [address] Anion gap [Moles/Vol] 14 mmol/L Normal 7-20 [facility] Comment on above: Performed By: #### L [id number] ####[facility] ([facility])[address] [place] [address] AST [Catalytic activity/Vol] 10 U/L Low 13-39 [facility] Comment on above: Performed By: #### L [id number] ####[facility] ([facility])[address] [place] [address] Bilirubin [Mass/Vol] 0.5 mg/dL Normal 0.3-1.0 [facility] Comment on above: Performed By: #### L [id number] ####[facility] ([facility])[address] [place] [address] Calcium [Mass/Vol] 9.1 mg/dL Normal 8.6-10.3 [facility] Comment on above: Performed By: #### L [id number] ####[facility] (BEAKER)[address] [place] [address] Chloride [Moles/Vol] 98 mmol/L Normal 98-107 [facility] Comment on above: Performed By: #### L [id number] ####[facility] ([facility])[address] [place] [address] CO2 [Moles/Vol] 28 mmol/L Normal 21-31 [facility] Comment on above: Performed By: #### L [id number] ####[facility] ([facility])[address] [place] [address] Creatinine [Mass/Vol] 1.68 mg/dL High 0.60-1.20 [facility] Comment on above: Performed By: #### L [id number] ####[facility] ([facility])[address] [place] [address] GLOMERULAR FILTRATION RATE ML/MIN/1.73 SQ M.PREDICTED 41.4 mL/min/1.73m*2 Low >60.0 [facility] Comment on above: Result Comment: The [facility]???s estimated glomerular filtration rate (eGFR) will no [...] of individuals. Performed By: #### L [id number] ####[facility] ([facility])[address] [place] [address] Glucose [Mass/Vol] 124 mg/dL High 70-100 [facility] Comment on above: Performed By: #### L [id number] ####[facility] (BEAKER)[address] [place] [address] Potassium [Moles/Vol] 4.3 mmol/L Normal 3.5-5.1 [facility] Comment on above: Performed By: #### L [id number] ####[facility] ([facility])[address] [place] [address] Protein [Mass/Vol] 6.9 g/dL Normal 6.0-8.3 [facility] Comment on above: Performed By: #### L [id number] ####[facility] (BEAKER)[address] [place] [address] Sodium [Moles/Vol] 136 mmol/L Normal 136-145 [facility] Comment on above: Performed By: #### L [id number] ####[facility] ([facility])[address] [place] [address] Urea nitrogen [Mass/Vol] 37 mg/dL High 7-25 [facility] Comment on above: Performed By: #### L [id number] ####[facility] ([facility])[address] [place] [address] UREA NITROGEN/CREATININE (MASS RATIO) IN SER/PLAS 22.0 Normal [facility] Comment on above: Performed By: #### L [id number] ####[facility] (BEAKER)[address] [place] [address] HIV COMBO 4Gon 07-06-2023 HIV COMBO 4G Negative Normal Negative [facility] Comment on above: Performed By: #### L [id number] ####[facility] (BEAKER)[address] [place] [address] Labon 07-06-2023 Lab [id number] Blanca Rudolph 1990 F Date Provider Department Center 07/06/2023 224-[facility] LAB RESOURCE DCC DRAW DCC Family History Problem Relation Age of Onset Hypertension Mother Hypertension Mother's Sister Crohn's disease Mother's Sister Hypertension Maternal Grandmother Breast cancer Maternal Grandmother Kidney disease Other Migraines Other Family Status - Relation Status Age at Mother Mother's Sister Maternal Grandmother Other Normal [facility] Office Visiton 07-06-2023 Follow-up visit [id number] Blanca Rudolph 1990 F Date Provider Department Center 07/06/2023 JasonVenancioSHERRILLVENTURAYASMINE ROBNAH [facility] Family History Problem Relation Age of Onset Hypertension Mother Hypertension Mother's Sister Crohn's disease Mother's Sister Hypertension Maternal Grandmother Breast cancer Maternal Grandmother Kidney disease Other Migraines Other Family Status - Relation Status Age at Mother Mother's Sister Maternal Grandmother Other Level of Service:43962 MI OFFICE/OUTPATIENT ESTABLISHED MOD MDM 30 MIN Reason for Visit and Comments: Health Maintenance [619] Exposure to HIV [Other] Normal [facility] RPRon 07-06-2023 REAGIN AB PRESENCE IN SERUM BY RPR Reactive Abnormal Nonreactive [facility] Comment on above: Performed By: #### L [id number] ####[facility] ([facility])[address] [place] [address] RPR QUANTITATIVEon RPR QUANT 1:16 High <1:1 [facility] Comment on above: Result Comment: The syphilis screen is a treponemal assay; patients with previously treated syphilis could be reactive on this assay, but nonreactive on the RPR Quant assay. Performed By: #### L [id number] #### [facility] ([facility]) [address] [place] [address] URINALYSISon 07-06-2023 BILIRUBIN, TOTAL PRESENCE IN URINE Negative Normal Negative [facility] Comment on above: Performed By: #### L [id number] ####[facility] (BEAKER)[address] [place] [address] Clarity (U) Slightly Cloudy Abnormal Clear [facility] Comment on above: Performed By: #### L [id number] ####[facility] ([facility])[address] [place] [address] Color (U) Yellow Normal Yellow [facility] Comment on above: Performed By: #### L [id number] ####[facility] ([facility])[address] [place] [address] Glucose (U) [Mass/Vol] Negative Normal Negative [facility] Comment on above: Performed By: #### L [id number] ####[facility] ([facility])[address] [place] [address] HEMOGLOBIN PRESENCE IN URINE Large Abnormal Negative [facility] Comment on above: Performed By: #### L [id number] ####[facility] ([facility])[address] [place] [address] Ketones Ql (U) Negative Normal Negative [facility] Comment on above: Performed By: #### L [id number] ####[facility] ([facility])[address] [place] [address] LEUKOCYTE ESTERASE PRESENCE IN URINE BY TEST STRIP Small Abnormal Negative [facility] Comment on above: Performed By: #### L [id number] ####[facility] ([facility])[address] [place] [address] NITRITE PRESENCE IN URINE Negative Normal Negative [facility] Comment on above: Performed By: #### L [id number] ####[facility] ([facility])[address] [place] [address] pH (U) 5.0 [pH] Normal 5.0-8.0 [facility] Comment on above: Performed By: #### L [id number] ####[facility] ([facility])[address] [place] [address] Protein (U) [Mass/Vol] 100 mg/dL Abnormal Negative [facility] Comment on above: Performed By: #### L [id number] ####[facility] ([facility])[address] [place] [address] Specific gravity (U) [Rel density] 1.011 Low 1.015-1.020 [facility] Comment on above: Performed By: #### L [id number] ####[facility] ([facility])[address] [place] [address] URINALYSIS MICROSCOPICon CASTS IN URINE Normal [facility] Comment on above: Performed By: #### L [id number] #### [facility] ([facility]) [address] [place] [address] CRYSTALS IN URINE Normal [facility] Comment on above: Performed By: #### L [id number] #### [facility] ([facility]) [address] [place] [address] RBC (#/HPF) IN URINE SEDIMENT >100 Abnormal None Seen [facility] Comment on above: Performed By: #### L [id number] #### [facility] ([facility]) [address] [place] [address] SQUAMOUS EPITHELIAL CELLS (#/HPF) IN URINE SEDIMENT Many Abnormal None Seen, Occasional [facility] Comment on above: Performed By: #### L [id number] #### [facility] ([facility]) [address] [place] [address] WBC (LEUKOCYTE) (#/HPF) IN URINE SEDIMENT 6-10 Abnormal None Seen [facility] Comment on above: Performed By: #### L [id number] #### [facility] ([facility]) [address] [place] [address] CBC AND AUTO DIFFon 06-28-19 24 ABSOLUTE BASOPHIL 0.0 X10E9/L Normal 0.0-0.2 [facility] Comment on above: Performed By: #### 1 0839-9, 32237-8, CMP, CBCA #### [facility] ([id number]) [address] [place] [address] ABSOLUTE NEUTROPHIL 7.7 X10E9/L High 1.5-6.6 [facility] Comment on above: Performed By: #### 1 0839-9, 37067-8, CMP, CBCA #### [facility] ([id number]) [address] [place] [address] Basophils/100 WBC (Bld) 0.3 % Normal [facility] Comment on above: Performed By: #### 1 0839-9, 79276-3, CMP, CBCA #### [facility] ([id number]) [address] [place] [address] 23676 Eosinophils (Bld) [#/Vol] 0.0 10*3/uL Normal 0.0-0.4 [facility] Comment on above: Performed By: #### 1 0839-9, 79818-6, CMP, CBCA #### [facility] ([id number]) [address] [place] [address] 24750 Eosinophils/100 WBC (Bld) 0.4 % Normal [facility] Comment on above: Performed By: #### 1 0839-9, 81001-7, CMP, CBCA #### [facility] ([id number]) [address] [place] [address] 15642 Erythrocyte distribution width (RBC) [Ratio] 14.8 % Normal 11.5-15.0 [facility] Comment on above: Performed By: #### 1 0839-9, 61331-6, CMP, CBCA #### [facility] ([id number]) [address] [place] [address] 50140 Hematocrit (Bld) [Volume fraction] 36.5 % Normal 35-47 [facility] Comment on above: Performed By: #### 1 0839-9, 90401-1, CMP, CBCA #### [facility] ([id number]) [address] [place] [address] 53844 Hemoglobin (Bld) [Mass/Vol] 12.5 g/dL Normal 11.7-15.5 [facility] Comment on above: Performed By: #### 1 0839-9, 21011-4, CMP, CBCA #### [facility] ([id number]) [address] [place] [address] 55051 Lymphocytes (Bld) [#/Vol] 0.8 10*3/uL Low 1.0-3.5 [facility] Comment on above: Performed By: #### 1 0839-9, 78879-1, CMP, CBCA #### [facility] ([id number]) [address] [place] [address] 39889 Lymphocytes/100 WBC (Bld) 9.4 % Normal [facility] Comment on above: Performed By: #### 1 0839-9, 16445-8, CMP, CBCA #### [facility] ([id number]) [address] [place] [address] 05547 MCH (RBC) [Entitic mass] 30.4 pg Normal 27-34 [facility] Comment on above: Performed By: #### 1 0839-9, 79644-9, CMP, CBCA #### [facility] ([id number]) [address] [place] [address] 56929 MCHC (RBC) [Mass/Vol] 34.3 g/dL Normal 32-36 [facility] Comment on above: Performed By: #### 1 0839-9, 67512-6, CMP, CBCA #### [facility] ([id number]) [address] [place] [address] 25734 MCV (RBC) [Entitic vol] 89 fL Normal 80-100 [facility] Comment on above: Performed By: #### 1 0839-9, 93709-9, CMP, CBCA #### [facility] ([id number]) [address] [place] [address] 57598 Monocytes (Bld) [#/Vol] 0.4 10*3/uL Normal 0-0.9 [facility] Comment on above: Performed By: #### 1 0839-9, 24866-5, CMP, CBCA #### [facility] ([id number]) [address] [place] [address] 81358 Monocytes/100 WBC (Bld) 4.3 % Normal [facility] Comment on above: Performed By: #### 1 0839-9, 58095-9, CMP, CBCA #### [facility] ([id number]) [address] [place] [address] 23553 Neutrophils/100 WBC (Bld) 85.6 % Normal [facility] Comment on above: Performed By: #### 1 0839-9, 49557-5, CMP, CBCA #### [facility] ([id number]) [address] [place] [address] 80140 Platelet mean volume (Bld) [Entitic vol] 7.7 fL Normal 7-12 [facility] Comment on above: Performed By: #### 1 0839-9, 81860-8, CMP, CBCA #### [facility] ([id number]) [address] [place] [address] [place] [address] Platelets (Bld) [#/Vol] 277 10*3/uL Normal 150-450 [facility] Comment on above: Performed By: #### 1 0839-9, 17514-9, CMP, CBCA #### [facility] ([id number]) [address] [place] [address] 62870 RBC COUNT 4.12 X10E12/L Normal 3.80-5.20 [facility] Comment on above: Performed By: #### 1 0839-9, 06021-8, CMP, CBCA #### [facility] ([id number]) [address] [place] [address] 10600 WBC (Bld) [#/Vol] 8.9 10*3/uL Normal 4.0-11.0 [facility] Comment on above: Performed By: #### 1 0839-9, 23486-8, CMP, CBCA #### [facility] ([id number]) [address] [place] [address] [place] [address] COMPREHENSIVE METABOLIC PANE [facility] 06-28-2023 Albumin [Mass/Vol] 3.6 g/dL Normal 3.2-5.3 [facility] Comment on above: Performed By: #### 1 0839-9, 12425-8, CMP, CBCA #### [facility] ([id number]) [address] [place] [address] 95705 ALP [Catalytic activity/Vol] 44 U/L Normal 39-130 [facility] Comment on above: Performed By: #### 1 0839-9, 30827-9, CMP, CBCA #### [facility] ([id number]) [address] [place] [address] 27642 ALT [Catalytic activity/Vol] 12 U/L Normal 0-31 [facility] Comment on above: Performed By: #### 1 0839-9, 59932-8, CMP, CBCA #### [facility] ([id number]) [address] [place] [address] 65956 Anion gap [Moles/Vol] 8 mmol/L Normal 5-15 [facility] Comment on above: Performed By: #### 1 0839-9, 29846-8, CMP, CBCA #### [facility] ([id number]) [address] [place] [address] 08878 AST [Catalytic activity/Vol] 11 U/L Normal 0-41 [facility] Comment on above: Performed By: #### 1 0839-9, 86344-5, CMP, CBCA #### [facility] ([id number]) [address] [place] [address] 31010 Bilirubin [Mass/Vol] 0.5 mg/dL Normal 0.3-1.2 [facility] Comment on above: Performed By: #### 1 0839-9, 12399-5, CMP, CBCA #### [facility] ([id number]) [address] [place] [address] 62498 Calcium [Mass/Vol] 8.6 mg/dL Normal 8.5-10.5 [facility] Comment on above: Performed By: #### 1 0839-9, 26564-1, CMP, CBCA #### [facility] ([id number]) [address] [place] [address] 80230 Chloride [Moles/Vol] 99 mmol/L Normal 98-109 [facility] Comment on above: Performed By: #### 1 0839-9, 18146-1, CMP, CBCA #### [facility] ([id number]) [address] [place] [address] 46542 CO2 [Moles/Vol] 33 mmol/L High 22-32 [facility] Comment on above: Performed By: #### 1 0839-9, 94981-8, CORINA, CBCA #### [facility] ([id number]) [address] [place] [address] 54943 Creatinine [Mass/Vol] 1.63 mg/dL High 0.40-1.00 [facility] Comment on above: Result Comment: METH OD TRACEABLE TO IDMS STANDARD Performed By: #### 1 0839-9, 19573-0, CMP, CBCA #### [facility] ([id number]) [address] [place] [address] 48414 GFR/1.73 sq M.predicted among non-blacks MDRD (S/P/Bld) [Vol rate/Area] 43 mL/min/{1.73_m2} Low >59 [facility] Comment on above: Result Comment: Reported eGFR is based on the CKD-EPI 2020 equation that does not use a race coefficient. Performed By: #### 1 0839-9, 77510-4, CMP, CBCA #### [facility] ([id number]) [address] [place] [address] 50649 Glucose [Mass/Vol] 92 mg/dL Normal 65-99 [facility] Comment on above: Performed By: #### 1 0839-9, 41766-0, CMP, CBCA #### [facility] ([id number]) [address] [place] [address] 69559 Potassium [Moles/Vol] 4.0 mmol/L Normal 3.5-5.0 [facility] Comment on above: Performed By: #### 1 0839-9, 96860-1, CMP, CBCA #### [facility] ([id number]) [address] [place] [address] 16253 Protein [Mass/Vol] 6.3 g/dL Normal 6.0-8.0 [facility] Comment on above: Performed By: #### 1 0839-9, 05344-3, CMP, CBCA #### [facility] ([id number]) [address] [place] [address] 05948 Sodium [Moles/Vol] 140 mmol/L Normal 134-146 [facility] Comment on above: Performed By: #### 1 0839-9, 67219-5, CMP, CBCA #### [facility] ([id number]) [address] [place] [address] 76285 Urea nitrogen [Mass/Vol] 25 mg/dL High 5-23 [facility] Comment on above: Performed By: #### 1 0839-9, 57015-7, CMP, CBCA #### [facility] ([id number]) [address] [place] [address] 20397 CRP [Mass/Vol]on 06-28-2023 C REACTIVE PROTEIN 0.2 mg/dL Normal 0.000-0.744 [facility] Comment on above: Performed By: #### 1 0839-9, 06603-6, CMP, CBCA #### [facility] ([id number]) [address] [place] [address] 02366 ESR Photometric method (Bld) [Velocity]on 06-28-2023 ESR, ERYTHROCYTE SEDIMENTATION RATE 2 mm/h Normal 0-20 [facility] Comment on above: Performed By: #### 1 0839-9, 15187-7, CMP, CBCA #### [facility] ([id number]) [address] [place] [address] 41920 MAGNESIUMon 06-28-2023 Magnesium [Mass/Vol] 1.8 mg/dL Normal 1.8-2.6 [facility] Comment on above: Performed By: #### 1 0839-9, 48841-0, CMP, CBCA #### [facility] ([id number]) [address] [place] [address] 31062 PHOSPHORUSon 06-28-2023 Phosphate [Mass/Vol] 2.8 mg/dL Normal 2.4-4.9 [facility] Comment on above: Performed By: #### 1 0839-9, 42960-0, CMP, CBCA #### [facility] ([id number]) [address] [place] [address] 13582 PROTEIN CREAT RATIOon 2023 RANDOM URINE PROTEIN 1070 mg/L High <120 [facility] Comment on above: Performed By: #### 1 0839-9, 33410-4, CMP, CBCA #### [facility] ([id number]) [address] [place] [address] 38383 Performed By: #### U PCR ####[facility] ([id number])[address] [place] [address], [address] [place] [address] 18045 U/PRO/JAVA PROGRAMMER RATIO CALC 0.70 High <0.2 [facility] Comment on above: Result Comment: Neph rotic Syndrome is associated with ratios >3.5 Performed By: #### 1 0839-9, 12985-8, CMP, CBCA #### [facility] ([id number]) [address] [place] [address] U/PRO/JAVA PROGRAMMER RATIO CALC 0.71 High <0.2 [facility] Comment on above: Result Comment: Neph rotic Syndrome is associated with ratios >3.5 Performed By: #### U PCR ####[facility] ([id number])[address], [address] [place] [address] 84716 URINE CREATININE,RDM 151.79 mg/dL Normal [facility] Comment on above: Performed By: #### 1 0839-9, 87485-4, CMP, CBCA #### [facility] ([id number]) [address] [place] [address] 95221 URINE CREATININE,RDM 151.74 mg/dL Normal [facility] Comment on above: Performed By: #### U PCR ####[facility] ([id number])[address], [address] [place] [address] 20202 Parathyrin.intact [Mass/Vol] on 06-28-2023 PTH INTACT 107 pg/mL High 12-88 [facility] Comment on above: Performed By: #### 8 2477-1, CMP, 1987-5, 54716-1, 2777-1, 47661-8, 2731-8, UPCR, CBCA ####[facility] ([id number])[address], [address] [place] [address] 73269 URINALYSISon 06-28-2023 Bilirubin Ql (U) Negative Normal NEG [facility] BLOOD/HGB Large Abnormal NEG [facility] Color (U) YELLOW Normal YELLOW [facility] Glucose Ql (U) Negative Normal NEG [facility] Ketones Ql (U) Negative Normal NEG [facility] Leukocyte esterase Test strip Ql (U) Negative Normal NEG [facility] MUCOUS PRESENT Abnormal NONE [facility] Nitrite Ql (U) Negative Normal NEG [facility] pH (U) 6.0 [pH] Normal 5.0-8.5 [facility] Protein Ql (U) 100 mg/dL Abnormal NEG [facility] R.B.CELLS 126 /hpf High 0-5 [facility] Specific gravity (U) [Rel density] 1.017 Normal 1.003-1.035 [facility] SQUAMOUS EPITHELIUM 1 /hpf Normal 0-5 [facility] TURBID[facility] CLEAR Normal CLEAR [facility] Urobilinogen (U) [Mass/Vol] mg/dL Normal <1.1 [facility] W.B.CELLS 4 /hpf Normal 0-5 [facility] Vitamin D+Metabolites [Mass/ Vol]on 06-28-2023 VITAMIN D 25 HYD TOT 29.0 ng/mL Low 30-100 [facility] Comment on above: Result Comment: Vitamin D status 25 [place] Vitamin D Deficiency <20 ng/mL Insufficiency 20-29 ng/mL Sufficiency 30-100 ng/mL Toxicity >100 ng/mL NOTE: A pediatric reference range has not been established by the [employer] [place] of this kit. The [place] [employer] recommends a Vitamin D level of = or >20ng/mL in infants and children. Performed By: #### 8 2477-1, CMP, 1987-, 81249-8, 2777-1, 40871-5, 2731-8, UPCR, CBCA ####[facility] ([id number])[address] [facility], [address] [place] [address] 56369 CBC AND AUTO DIFFon 06-25-19 24 ABSOLUTE BASOPHIL 0.1 X10E9/L Normal 0.0-0.2 [facility] Comment on above: Performed By: #### 1 0839-9, 86029-0, CMP, CBCA #### [facility] ([id number]) [address] [place] [address], [place] [address] ABSOLUTE NEUTROPHIL 7.9 X10E9/L High 1.5-6.6 [facility] Comment on above: Performed By: #### 1 0839-9, 94441-6, CMP, CBCA #### [facility] ([id number]) [address] [place] [address] 78279 Basophils/100 WBC (Bld) 0.5 % Normal [facility] Comment on above: Performed By: #### 1 0839-9, 11972-3, CMP, CBCA #### [facility] ([id number]) [address] [place] [address] 02852 Eosinophils (Bld) [#/Vol] 0.0 10*3/uL Normal 0.0-0.4 [facility] Comment on above: Performed By: #### 1 0839-9, 74641-4, CMP, CBCA #### [facility] ([id number]) [address] [place] [address] 49422 Eosinophils/100 WBC (Bld) 0.2 % Normal [facility] Comment on above: Performed By: #### 1 0839-9, 96785-6, CMP, CBCA #### [facility] ([id number]) [address] [place] [address] 17738 Erythrocyte distribution width (RBC) [Ratio] 14.9 % Normal 11.5-15.0 [facility] Comment on above: Performed By: #### 1 0839-9, 89735-7, CMP, CBCA #### [facility] ([id number]) [address] [place] [address] 89496 Hematocrit (Bld) [Volume fraction] 36.0 % Normal 35-47 [facility] Comment on above: Performed By: #### 1 0839-9, 85167-6, CMP, CBCA #### [facility] ([id number]) [address] [place] [address] 44294 Hemoglobin (Bld) [Mass/Vol] 12.5 g/dL Normal 11.7-15.5 [facility] Comment on above: Performed By: #### 1 0839-9, 21381-6, CMP, CBCA #### [facility] ([id number]) [address] [place] [address] 59648 Lymphocytes (Bld) [#/Vol] 1.6 10*3/uL Normal 1.0-3.5 [facility] Comment on above: Performed By: #### 1 0839-9, 11831-6, CMP, CBCA #### [facility] ([id number]) [address] [place] [address] 62769 Lymphocytes/100 WBC (Bld) 15.9 % Normal [facility] Comment on above: Performed By: #### 1 0839-9, 65288-9, CMP, CBCA #### [facility] ([id number]) [address] [place] [address] 19476 MCH (RBC) [Entitic mass] 30.2 pg Normal 27-34 [facility] Comment on above: Performed By: #### 1 0839-9, 15636-3, CMP, CBCA #### [facility] ([id number]) [address] [place] [address] 91690 MCHC (RBC) [Mass/Vol] 34.8 g/dL Normal 32-36 [facility] Comment on above: Performed By: #### 1 0839-9, 67156-3, CMP, CBCA #### [facility] ([id number]) [address] [place] [address] 90906 MCV (RBC) [Entitic vol] 87 fL Normal 80-100 [facility] Comment on above: Performed By: #### 1 0839-9, 19135-7, CMP, CBCA #### [facility] ([id number]) [address] [place] [address] 93413 Monocytes (Bld) [#/Vol] 0.6 10*3/uL Normal 0-0.9 [facility] Comment on above: Performed By: #### 1 0839-9, 25340-0, CMP, CBCA #### [facility] ([id number]) [address] [place] [address] 73724 Monocytes/100 WBC (Bld) 6.2 % Normal [facility] Comment on above: Performed By: #### 1 0839-9, 65186-5, CMP, CBCA #### [facility] ([id number]) [address] [place] [address] 29847 Neutrophils/100 WBC (Bld) 77.2 % Normal [facility] Comment on above: Performed By: #### 1 0839-9, 37605-1, CMP, CBCA #### [facility] ([id number]) [address] [place] [address] 51083 Platelet mean volume (Bld) [Entitic vol] 7.3 fL Normal 7-12 [facility] Comment on above: Performed By: #### 1 0839-9, 77244-1, CMP, CBCA #### [facility] ([id number]) [address] [place] [address] 27905 Platelets (Bld) [#/Vol] 305 10*3/uL Normal 150-450 [facility] Comment on above: Performed By: #### 1 0839-9, 92031-9, CMP, CBCA #### [facility] ([id number]) [address] [place] [address] 41666 RBC COUNT 4.15 X10E12/L Normal 3.80-5.20 [facility] Comment on above: Performed By: #### 1 0839-9, 27927-6, CMP, CBCA #### [facility] ([id number]) [address] [place] [address] 65780 WBC (Bld) [#/Vol] 10.2 10*3/uL Normal 4.0-11.0 [facility] Comment on above: Performed By: #### 1 0839-9, 60323-4, CMP, CBCA #### [facility] ([id number]) [address] [place] [address] 53886 COMPREHENSIVE METABOLIC PANE Gerardo 06-25-2023 Albumin [Mass/Vol] 3.8 g/dL Normal 3.2-5.3 [facility] Comment on above: Performed By: #### 1 0839-9, 02056-7, CMP, CBCA #### [facility] ([id number]) [address] [place] [address] 10586 ALP [Catalytic activity/Vol] 46 U/L Normal 39-130 [facility] Comment on above: Performed By: #### 1 0839-9, 38442-7, CMP, CBCA #### [facility] ([id number]) [address] [place] [address] 56757 ALT [Catalytic activity/Vol] 14 U/L Normal 0-31 [facility] Comment on above: Performed By: #### 1 0839-9, 54114-2, CMP, CBCA #### [facility] ([id number]) [address] [place] [address] 82132 Anion gap [Moles/Vol] 6 mmol/L Normal 5-15 [facility] Comment on above: Performed By: #### 1 0839-9, 08107-2, CMP, CBCA #### [facility] ([id number]) [address] [place] [address] 21987 AST [Catalytic activity/Vol] 13 U/L Normal 0-41 [facility] Comment on above: Performed By: #### 1 0839-9, 73568-5, CMP, CBCA #### [facility] ([id number]) [address] [place] [address] 80584 Bilirubin [Mass/Vol] 0.6 mg/dL Normal 0.3-1.2 [facility] Comment on above: Performed By: #### 1 0839-9, 99186-8, CMP, CBCA #### [facility] ([id number]) [address] [place] [address] 66083 Calcium [Mass/Vol] 8.4 mg/dL Low 8.5-10.5 [facility] Comment on above: Performed By: #### 1 0839-9, 76414-9, CMP, CBCA #### [facility] ([id number]) [address] [place] [address] 42036 Chloride [Moles/Vol] 102 mmol/L Normal 98-109 [facility] Comment on above: Performed By: #### 1 0839-9, 61403-1, CMP, CBCA #### [facility] ([id number]) [address] [place] [address] 62237 CO2 [Moles/Vol] 28 mmol/L Normal 22-32 [facility] Comment on above: Performed By: #### 1 0839-9, 05458-5, CMP, CBCA #### [facility] ([id number]) [address] [place] [address] 62116 Creatinine [Mass/Vol] 1.48 mg/dL High 0.40-1.00 [facility] Comment on above: Result Comment: METH OD TRACEABLE TO IDMS STANDARD Performed By: #### 1 0839-9, 83900-3, CMP, CBCA #### [facility] ([id number]) [address] [place] [address]78 GFR/1.73 sq M.predicted among non-blacks MDRD (S/P/Bld) [Vol rate/Area] 48 mL/min/{1.73_m2} Low >59 [facility] Comment on above: Result Comment: Reported eGFR is based on the CKD-EPI 2020 equation that does not use a race coefficient. Performed By: #### 1 0839-9, 77625-2, CMP, CBCA #### [facility] ([id number]) [address] [place] [address]80 Glucose [Mass/Vol] 102 mg/dL High 65-99 [facility] Comment on above: Performed By: #### 1 0839-9, 89571-7, CMP, CBCA #### [facility] ([id number]) [address] [place] [address] Potassium [Moles/Vol] 3.9 mmol/L Normal 3.5-5.0 [facility] Comment on above: Performed By: #### 1 0839-9, 21692-1, CMP, CBCA #### [facility] ([id number]) [address] [place] [address]19 Protein [Mass/Vol] 6.5 g/dL Normal 6.0-8.0 [facility] Comment on above: Performed By: #### 1 0839-9, 78315-6, CMP, CBCA #### [facility] ([id number]) [address] [place] [address]8400 Sodium [Moles/Vol] 136 mmol/L Normal 134-146 [facility] Comment on above: Performed By: #### 1 0839-9, 02983-3, CMP, CBCA #### [facility] ([id number]) [address] [place] [address]45 Urea nitrogen [Mass/Vol] 31 mg/dL High 5-23 [facility] Comment on above: Performed By: #### 1 0839-9, 18838-4, CMP, CBCA #### [facility] ([id number]) [address] [place] [address] ABDOMEN AND PELVIS W CONT on 06-25-2023 CT ABDOMEN AND PELVIS W CONT CT ABDOMEN AND PELVIS W CONT Clinical history: Right lower quadrant abdominal pain. Right-sided flank pain. Technique: Spiral CT of the abdomen and pelvis was performed after the intravenous administration of contrast material. Sagittal and coronal reformatted imaging was performed. All CT scans at this facility use dose modulation, iterative reconstruction, and/or weight based dosing when appropriate to reduce radiation dose to as low as reasonably achievable. Comparisons: 06/16/2023. Findings: CT ABDOMEN: Lung apices are unremarkable. There is no pneumoperitoneum. The liver, spleen, adrenal glands and pancreas appear unremarkable. Kidneys appear unremarkable bilaterally. There is normal symmetric enhancement pattern. Renal collecting systems and ureters are not dilated. No perinephric soft tissue stranding. The abdominal aorta is not aneurysmal. No dilated loops of large nor small bowel. No retroperitoneal nor mesenteric lymphadenopathy. CT PELVIS: There is no pelvic mass, fluid collection nor lymphadenopathy. The appendix is normal. 3.3 cm left ovarian cyst does not appear significantly changed. No pelvic mass, fluid collection nor lymphadenopathy. Multiple Schmorl's nodes again noted throughout the thoracolumbar spine. No acute fracture is identified. IMPRESSION: 1. No acute finding in the abdomen nor pelvis. 2. A 3.3 cm benign-appearing, cystic lesion is seen in the left adnexa (series 2, image 85). No additional imaging or follow-up is recommended. Recommendations for adnexal lesion management based on Mk et al., J Am Javier Radiol 10:675-81 (2013). Finalized by Ben Dinh MD on 06/25/2023 12:33 AM Normal [facility] HCG ( test) Ql (U)o n 06-25-2023 Beta HCG ( test) Ql (U) Negative Normal NEG [facility] Comment on above: Performed By: #### 1 0839-9, 64580-7, CMP, CBCA #### [facility] ([id number]) [address] [place] [address] LIPASEon 06-25-2023 Lipase [Catalytic activity/Vol] 55 U/L High 17-40 [facility] Comment on above: Performed By: #### 1 0839-9, 03907-6, CMP, CBCA #### [facility] ([id number]) [address] [place] [address] [place] [address] URN MACROSCOPIC NURon 2023 BILIRUBIN BRENDEN Negative Normal [facility] Comment on above: Performed By: #### 1 0839-9, 98878-0, CMP, CBCA #### [facility] ([id number]) [address] [place] [address] [place] [address] BLOOD/HGB BRENDEN Large Abnormal NEG [facility] Comment on above: Performed By: #### 1 0839-9, 75952-1, CMP, CBCA #### [facility] ([id number]) [address] [place] [address] [place] [address] GLUCOSE BRENDEN Negative Normal [facility] Comment on above: Performed By: #### 1 0839-9, 88367-5, CMP, CBCA #### [facility] ([id number]) [address] [place] [address] KETONES BRENDEN Negative Normal NEG [facility] Comment on above: Performed By: #### 1 0839-9, 67341-5, CMP, CBCA #### [facility] ([id number]) [address] [place] [address] [place] [address] LEUKOCYTE ESTERASE BRENDEN Negative Normal NEG [facility] Comment on above: Performed By: #### 1 0839-9, 03727-7, CMP, CBCA #### [facility] ([id number]) [address] [place] [address] NITRITE BRENDEN Negative Normal NEG [facility] Comment on above: Performed By: #### 1 0839-9, 99218-2, CMP, CBCA #### [facility] ([id number]) [address] [place] [address] PH BRENDEN 5.5 Normal 5.0-8.5 [facility] Comment on above: Performed By: #### 1 0839-9, 62288-6, CMP, CBCA #### [facility] ([id number]) [address] [place] [address] PROTEIN BRENDEN >=300 Abnormal NEG [facility] Comment on above: Performed By: #### 1 0839-9, 66577-4, CMP, CBCA #### [facility] ([id number]) [address] [place] [address] SPECIFIC GRAVITY BRENDEN 1.020 Normal 1.003-1.035 [facility] Comment on above: Performed By: #### 1 0839-9, 19287-4, CMP, CBCA #### [facility] ([id number]) [address] [place] [address] UROBILINOGEN BRENDEN 0.2 eu/dL Normal <1.[address] [facility] Comment on above: Performed By: #### 1 0839-9, 60867-9, CMP, CBCA #### [facility] ([id number]) [address] [place] [address] CT CTA COR ARTERIES W OR WO SCORINGon 06-21-2023 CT CTA COR ARTERIES W OR WO SCORING CT CTA COR ARTERIES W OR WO SCORING CLINICAL INFORMATION: Acute chest pain/anginal equivalent. TECHNIQUE: Computed tomography (CT) of the heart was obtained using electrocardiography (ECG) triggering. 100 mL of Omni 350 contrast material was administered intravenously. Heart rate/rhythm control: Patient's routine medications; no additional medications provided. Coronary vasodilation: sublingual nitroglycerin 0.8 mg. 3-D volume rendered maximum intensity projection images were generated and reviewed under concurrent physician supervision on an independent workstation. All CT scans at this facility use dose modulation, iterative reconstruction, and/or weight based dosing when appropriate to reduce radiation dose to as low as reasonably achievable. No FFR performed. COMPARISON: None. EXTRACARDIAC FINDINGS: Mediastinal lymph nodes are not enlarged. The pulmonary trunk is not enlarged. Visible portions of the thoracic aorta are nonaneurysmal. Visible portions of upper abdominal viscera are within normal limits. CARDIAC MORPHOLOGY: The right atrium is normal. The right ventricle is normal. The left atrium is normal. The left ventricle is normal. No pericardial effusion. CALCIUM SCORE: Total volume is 0 mm^3. Agatston Score: The total (aggregate) calcium score using the AJ-130 method is 0. N/A% of similar patients have less coronary artery calcium {this is reported using the interactive PATEL form found at http://www.patel-nhlbi. org}. Individual major vessel AJ-130 scores are: LM = 0 LAD = 0 LCX = 0 RCA/PDA = 0 Other = 0 Coronary Artery Angiogram Findings: Stenoses are reported as maximum percentage diameter stenosis. Stenosis grading is reported using the following scheme: Normal: no stenosis Mild: 1-49% stenosis Moderate: 50-70% stenosis Severe: >70% stenosis Occluded The coronary artery system is right dominant with normal origins. The LM has no stenosis with no plaque. The LAD, diagonals, left circumflex, obtuse marginals, right coronary artery, and acute marginal are normal No significant coronary artery stenosis or plaque. IMPRESSION: No significant coronary artery stenosis or plaque formation; total calcium score 0. No FFR performed. The coronary arteries and cardiac structures were co-interpreted by Dr. Micaela Reina of the department of radiology and Dr. Ronnell Tamayo of department of cardiology. The extracardiac structures including the lungs were solely interpreted by Dr. Micaela Reina of the department of radiology. __ Calcium Score interpretation and guidelines for asymptomatic individuals, 45 - 75 years of age are as follows: Estimated Risk of a Total Score Relative Risk Coronary Event Each Year __ 0 very low risk 2 per 1000 1-10 low risk 5 per 1000 11-100 intermediate risk 5 to 20 per 1000 101-400 moderately high risk more than 2 per 100 over 400 high risk between 2 and 5 per 100; approximately 15% chance of significant blockages; consideration should be given to obtaining stress echo or stress nuclear testing. __ Approved by Resident Sarah Quintanilla MD on 06/21/2023 8:36 AM I, Micaela Reina MD have personally reviewed the image(s) and agree with and/or edited the report Finalized by Micaela Reina MD on 06/21/2023 9:57 AM Normal [facility] TROPONIN Ion 06-20-2023 Troponin I.cardiac [Mass/Vol] ng/mL Normal 0.00-0.04 [facility] Comment on above: Performed By: #### C MP, 1988-5, CBCA, 4485-9, 4498-2, 61773-4 #### [facility] ([id number]) [address], [address] [place] [address] CBC AND AUTO DIFFon 06-19-19 24 ABSOLUTE BASOPHIL 0.0 X10E9/L Normal 0.0-0.2 [facility] Comment on above: Performed By: #### C BCA, CMP, 2156-6, 2639-3, TSHR #### [facility] ([id number]) [address], [address] [place] [address] ABSOLUTE NEUTROPHIL 7.8 X10E9/L High 1.5-6.6 [facility] Comment on above: Performed By: #### C BCA, CMP, 2156-6, 2639-3, TSHR #### [facility] ([id number]) [address], [address] [place] [address] Basophils/100 WBC (Bld) 0.3 % Normal [facility] Comment on above: Performed By: #### C BCA, CMP, 2156-09, 2638-3, TSHR #### [facility] ([id number]) [address] [address] [place] [address] Eosinophils (Bld) [#/Vol] 0.1 10*3/uL Normal 0.0-0.4 [facility] Comment on above: Performed By: #### C BCA, CMP, 2156-09, 2638-3, TSHR #### [facility] ([id number]) [address], [facility] [address] [place] [address] Eosinophils/100 WBC (Bld) 0.6 % Normal [facility] Comment on above: Performed By: #### C BCA, CMP, 2156-09, 2638-06, TSHR #### [facility] ([id number]) [address] [address] [place] [address] Erythrocyte distribution width (RBC) [Ratio] 14.7 % Normal 11.5-15.0 [facility] Comment on above: Performed By: #### C BCA, CMP, 2156-09, 2638-3, TSHR #### [facility] ([id number]) [address] [address] [place] [address] Hematocrit (Bld) [Volume fraction] 38.0 % Normal 35-47 [facility] Comment on above: Performed By: #### C BCA, CMP, 2156-09, 2638-3, TSHR #### [facility] ([id number]) [address] [address] [place] [address] Hemoglobin (Bld) [Mass/Vol] 13.2 g/dL Normal 11.7-15.5 [facility] Comment on above: Performed By: #### C BCA, CMP, 2156-09, 3, TSHR #### [facility] ([id number]) [address], [facility] [address] [place] [address] Lymphocytes (Bld) [#/Vol] 1.1 10*3/uL Normal 1.0-3.5 [facility] Comment on above: Performed By: #### C BCA, CMP, 2156-09, 3, TSHR #### [facility] ([id number]) [address], [facility] [address] [place] [address] Lymphocytes/100 WBC (Bld) 11.0 % Normal [facility] Comment on above: Performed By: #### C BCA, CMP, 2156-09, 2638-06, TSHR #### [facility] ([id number]) [address], [facility] [address] [place] [address] MCH (RBC) [Entitic mass] 30.4 pg Normal 27-34 [facility] Comment on above: Performed By: #### C BCA, CMP, 2156-09, 2638-06, TSHR #### [facility] ([id number]) [address] [address] MCHC (RBC) [Mass/Vol] 34.9 g/dL Normal 32-36 [facility] Comment on above: Performed By: #### C BCA, CMP, 2156-09, 2638-06, TSHR #### [facility] ([id number]) [address], [facility] [address] [place] [address] MCV (RBC) [Entitic vol] 87 fL Normal 80-100 [facility] Comment on above: Performed By: #### C BCA, CMP, 2156-09, 3, TSHR #### [facility] ([id number]) [address] [address] [place] [address] Monocytes (Bld) [#/Vol] 0.7 10*3/uL Normal 0-0.9 [facility] Comment on above: Performed By: #### C BCA, CMP, 2156-6, 2639-3, TSHR #### [facility] ([id number]) [address], [address] [place] [address] Monocytes/100 WBC (Bld) 7.2 % Normal [facility] Comment on above: Performed By: #### C BCA, CMP, 2156-09, 2638-3, TSHR #### [facility] ([id number]) [address], [address] [place] [address] Neutrophils/100 WBC (Bld) 80.9 % Normal [facility] Comment on above: Performed By: #### C BCA, CMP, 2156-09, 9-3, TSHR #### [facility] ([id number]) [address], [address] [place] [address] Platelet mean volume (Bld) [Entitic vol] 7.5 fL Normal 7-12 [facility] Comment on above: Performed By: #### C BCA, CMP, 2156-09, 2638-3, TSHR #### [facility] ([id number]) [address], [address] [place] [address] Platelets (Bld) [#/Vol] 309 10*3/uL Normal 150-450 [facility] Comment on above: Performed By: #### C BCA, CMP, 2156-09, 9-3, TSHR #### [facility] ([id number]) [address], [address] [place] [address] RBC COUNT 4.36 X10E12/L Normal 3.80-5.20 [facility] Comment on above: Performed By: #### C BCA, CMP, 2156-6, 2639-3, TSHR #### [facility] ([id number]) [address], [address] [place] [address] WBC (Bld) [#/Vol] 9.7 10*3/uL Normal 4.0-11.0 [facility] Comment on above: Performed By: #### C BCA, CMP, 2157-6, 2639-3, TSHR #### [facility] ([id number]) [address], [address] [place] [address] CK [Catalytic activity/Vol]o n 06-19-2023 CPK 24 U/L Normal 24-170 [facility] Comment on above: Performed By: #### C MP, 1987-08, CBCA, 4485-9, 4498-2, 87803-5 #### [facility] ([id number]) [address], [address] [place] [address] COMPREHENSIVE METABOLIC PANE Gerardo 06-19-2023 Albumin [Mass/Vol] 3.9 g/dL Normal 3.2-5.3 [facility] Comment on above: Performed By: #### C MP, 1987-08, CBCA, 4485-9, 4498-2, 18868-7 #### [facility] ([id number]) [address], [address] [place] [address] ALP [Catalytic activity/Vol] 38 U/L Low 39-130 [facility] Comment on above: Performed By: #### C MP, 1987-08, CBCA, 4485-9, 4498-2, 55780-2 #### [facility] ([id number]) [address], [address] [place] [address] ALT [Catalytic activity/Vol] 11 U/L Normal 0-31 [facility] Comment on above: Performed By: #### C MP, 1987-08, CBCA, 4485-9, 4498-2, 14952-2 #### [facility] ([id number]) [address] [place] [address] Anion gap [Moles/Vol] 9 mmol/L Normal 5-15 [facility] Comment on above: Performed By: #### C JUNAID, 1987-08, CBCA, 4485-9, 4498-2, 05034-2 #### [facility] ([id number]) [address], [address] [place] [address] AST [Catalytic activity/Vol] 11 U/L Normal 0-41 [facility] Comment on above: Performed By: #### C JUNAID, 1987-08, CBCA, 4485-9, 4498-2, 82686-2 #### [facility] ([id number]) [address], [address] [place] [address] Bilirubin [Mass/Vol] 0.4 mg/dL Normal 0.3-1.2 [facility] Comment on above: Performed By: #### C JUNAID, 1987-08, CBCA, 4485-9, 4498-2, 32784-1 #### [facility] ([id number]) [address], [address] [place] [address] Calcium [Mass/Vol] 9.0 mg/dL Normal 8.5-10.5 [facility] Comment on above: Performed By: #### C JUNAID, 1987-08, CBCA, 4485-9, 4498-2, 99588-8 #### [facility] ([id number]) [address], [address] [place] [address] Chloride [Moles/Vol] 104 mmol/L Normal 98-109 [facility] Comment on above: Performed By: #### C JUNAID, 1987-08, CBCA, 4485-9, 4498-2, 68637-9 #### [facility] ([id number]) [address], [address] [place] [address] CO2 [Moles/Vol] 28 mmol/L Normal 22-32 [facility] Comment on above: Performed By: #### C JUNAID, 1987-08, CBCA, 4485-9, 4498-2, 96137-5 #### [facility] ([id number]) [address] [address] [place] [address] Creatinine [Mass/Vol] 1.10 mg/dL High 0.40-1.00 [facility] Comment on above: Result Comment: METH OD TRACEABLE TO IDMS STANDARD Performed By: #### C JUNAID, 1987-08, CBCA, 448-9, 4498-2, 34627-4 #### [facility] ([id number]) [address] [address] [place] [address] GFR/1.73 sq M.predicted among non-blacks MDRD (S/P/Bld) [Vol rate/Area] 69 mL/min/{1.73_m2} Normal >59 [facility] Comment on above: Result Comment: Reported eGFR is based on the CKD-EPI 2020 equation that does not use a race coefficient. Performed By: #### C JUNAID, 1987-08, CBCA, 448-9, 4498-2, 15385-7 #### [facility] ([id number]) [address] [address] [place] [address] Glucose [Mass/Vol] 106 mg/dL High 65-99 [facility] Comment on above: Performed By: #### Nataliia QUIROGA, 1986-08, CBCA, 448-9, 4498-2, 79926-7 #### [facility] ([id number]) [address] [address] [place] [address] Potassium [Moles/Vol] 3.6 mmol/L Normal 3.5-5.0 [facility] Comment on above: Performed By: #### C JUNAID, 1987-08, CBCA, 4485-9, 4498-2, 60615-4 #### [facility] ([id number]) [address] [address] [place] [address] Protein [Mass/Vol] 6.3 g/dL Normal 6.0-8.0 [facility] Comment on above: Performed By: #### C JUNAID, 1987-08, CBCA, 4485-9, 4498-2, 66809-6 #### [facility] ([id number]) [address], [address] [place] [address] Sodium [Moles/Vol] 141 mmol/L Normal 134-146 [facility] Comment on above: Performed By: #### C JUNAID, 1987-08, CBCA, 4485-9, 4498-2, 67653-3 #### [facility] ([id number]) [address], [address] [place] [address] Urea nitrogen [Mass/Vol] 21 mg/dL Normal 5-23 [facility] Comment on above: Performed By: #### Nataliia QUIROGA, 1986-08, CBCA, 4485-9, 4498-2, 20445-0 #### [facility] ([id number]) [address], [address] [place] [address] HGB A1C (GLYCO-HGB)on 2023 Glucose [Mass/Vol] 105 mg/dL Normal [facility] HbA1c (Bld) [Mass fraction] 5.3 % Normal 4.4-5.6 [facility] Comment on above: Result Comment: NOTE ADA Guidelines Result HgbA1c Normal : less than 5.7 % Prediabetes : 5.7 % to 6.4 % Diabetes : > 6.4 % Use with caution in patients with abnormal hemoglobin variants as the half-life of red blood cells and in vivo glycation rates are affected. Lipid 1996 panelon 4 Cholesterol [Mass/Vol] 108 mg/dL Low 150-200 [facility] Comment on above: Performed By: #### C JUNAID, 1987-08, CBCA, 4485-9, 4498-2, 95499-2 #### [facility] ([id number]) [address], [address] [place] [address] Cholesterol in HDL [Mass/Vol] 37 mg/dL Low >39 [facility] Comment on above: Result Comment: HDL <40 mg/dL - High Risk HDL > or = 40mg/dL- Desirable HDL >60 mg/dL - Negative Risk Performed By: #### Nataliia QUIROGA, 1986-08, CBCA, 4485-9, 4498-2, 07432-8 #### [facility] ([id number]) [address] [place] [address] Cholesterol in LDL [Mass/Vol] 52 mg/dL Normal <130 [facility] Comment on above: Result Comment: LDL <100 mg/dL - Desirable LDL >160 mg/dL - High Risk Performed By: #### Nataliia QUIROGA, 1987-08, CBCA, 4485-9, 4498-2, 22963-1 #### [facility] ([id number]) [address] [place] [address] Cholesterol in VLDL [Mass/Vol] 19 mg/dL Normal 0-30 [facility] Comment on above: Performed By: ###Benita William MP, 1986-08, CBCA, 4485-9, 4498-2, 23262-1 #### [facility] ([id number]) [address] [place] [address] CHOLESTEROL:HDL 2.9 Normal 1.0-5.0 [facility] Comment on above: Performed By: #### Nataliia QUIROGA, 1986-08, CBCA, 4485-9, 4498-2, 47063-7 #### [facility] ([id number]) [address], [address] [place] [address] Triglyceride [Mass/Vol] 96 mg/dL Normal 27-150 [facility] Comment on above: Performed By: #### Nataliia QUIROGA, 1986-08, CBCA, 4485-9, 4498-2, 33738-1 #### [facility] ([id number]) [address] [place] [address] MAGNESIUMon 06-19-2023 Magnesium [Mass/Vol] 1.8 mg/dL Normal 1.8-2.6 [facility] Comment on above: Performed By: #### Nataliia QUIROGA, 1986-08, CBCA, 4485-9, 4498-2, 94901-3 #### [facility] ([id number]) [address] [place] [address] Myoglobin [Mass/Vol]on 06-19 SERUM MYOGLOBIN 20.4 ng/mL Normal 14.3-65.8 [facility] Comment on above: Performed By: #### Nataliia QUIROGA, 1986-08, CBCA, 4485-9, 4498-2, 33725-4 #### [facility] ([id number]) [address] [place] [address] Natriuretic peptide B [Mass/ Vol]on 06-19-2023 Natriuretic peptide B (Bld) [Mass/Vol] 13 pg/mL Normal <100.0 [facility] Comment on above: Performed By: #### Nataliia QUIROGA, 1986-08, CBCA, 4485-9, 4498-2, 57648-1 #### [facility] ([id number]) [address], [address] [place] [address] TROPONIN Ion 06-19-2023 Troponin I.cardiac [Mass/Vol] ng/mL Normal 0.00-0.04 [facility] Comment on above: Performed By: #### C JUNAID, 1987-08, CBCA, 4485-9, 4498-2, 81257-5 #### [facility] ([id number]) [address], [address] [place] [address] Troponin I.cardiac [Mass/Vol] ng/mL Normal 0.00-0.04 [facility] Comment on above: Performed By: #### C JUNAID, 1987-08, CBCA, 4485-9, 4498-2, 53995-6 #### [facility] ([id number]) [address] [place] [address] TSH WITH REFLEXon 06-19-2023 TSH 1.95 uIU/mL Normal 0.49-4.67 [facility] Comment on above: Performed By: #### C JUNAID, 1987-08, CBCA, 4485-9, 4498-2, 21857-7 #### [facility] ([id number]) [address] [place] [address] Troponin I.cardiac (Bld) [Ma ss/Vol]on 06-19-2023 PORTABLE TROPONIN <0.01 Normal 0.00-0.08 [facility] Comment on above: Result Comment: NEW REFERENCE RANGE Performed By: #### 4 2757-5 #### [facility] ([id number]) [address] [place] [address] Urine collection deviceon ER EXTRA URINES ER EXTRA URINE ORDER IN PROCESS Normal [facility] XR CHEST 1 VWon 06-19-2023 XR CHEST 1 VW XR CHEST 1 VW CHEST ONE VIEW COMPARISON: 05/15/2023 HISTORY: Left-sided chest pain. FINDINGS: Portable AP chest radiograph demonstrates no pneumothorax. Cardiomediastinal silhouette and pulmonary vasculature are within normal limits. No evidence for focal consolidation or pleural effusion. IMPRESSION: No evidence for an acute cardiopulmonary process. Finalized by Remy Stanley MD on 06/19/2023 11:00 AM Normal [facility] CT ABDOMEN AND PELVIS WO CON Ton 06-16-2023 CT ABDOMEN AND PELVIS WO CONT CT ABDOMEN AND PELVIS WO CONT CT ABDOMEN AND PELVIS WO CONT: 06/16/2023 3:55 PM CLINICAL INFORMATION: Abdominal/flank pain, stone suspected right flank pain. Possible kidney stone. TECHNIQUE: CT Abdomen and Pelvis without intravenous contrast. All CT scans at this facility use dose modulation, iterative reconstruction, and/or weight based dosing when appropriate to reduce radiation dose to as low as reasonably achievable. COMPARISON: CT 02/27/2023 FINDINGS: Exam performed without IV contrast limits evaluation of abdominal organs. No pleural effusions in lung bases. Prominent left adnexal follicle/cyst, measuring up to 3.8 cm. To limits of this exam, no focal lesions seen in liver, spleen, adrenal glands, or pancreas. Gallbladder not visible. No stones seen in kidneys, along the course of either ureter, or the bladder. No bladder wall thickening. No enlarged lymph nodes or abnormal fluid collections. No bowel dilatation. No appendiceal dilatation or adjacent soft tissue stranding. Tiny appendiceal calcification present, sagittal sequence image [id number]. Normal caliber abdominal aorta. Stable lumbar spine with multilevel degenerative changes in anatomic alignment. Mild sclerotic changes present about the SI joints bilaterally. IMPRESSION: * No discrete renal or ureteral or bladder stones or hydronephrosis. * Left adnexal follicle/cyst, measuring up to 3.8 cm. Consider ultrasound as clinically indicated. * Tiny appendicolith with otherwise normal CT appearance of appendix. Finalized by Brendan Delgado MD on 06/16/2023 4:21 PM Normal [facility] HCG ( test) Ql (U)o n 06-16-2023 Beta HCG ( test) Ql (U) Negative Normal NEG [facility] Comment on above: Performed By: #### 1 0839-9, 88589-7, CMP, CBCA #### [facility] ([id number]) [address] [place] [address], [place] [address] URN MACROSCOPIC NURon 2023 BILIRUBIN BRENDEN Negative Normal NEG [facility] Comment on above: Performed By: #### 1 0839-9, 48449-6, CMP, CBCA #### [facility] ([id number]) [address] [place] [address] [place] [address] BLOOD/HGB BRENDEN Large Abnormal NEG [facility] Comment on above: Performed By: #### 1 0839-9, 08556-9, CMP, CBCA #### [facility] ([id number]) [address] [place] [address] [place] [address] GLUCOSE BRENDEN Negative Normal NEG [facility] Comment on above: Performed By: #### 1 0839-9, 92629-0, CMP, CBCA #### [facility] ([id number]) [address] [place] [address] KETONES BRENDEN Negative Normal NEG [facility] Comment on above: Performed By: #### 1 0839-9, 38591-2, CMP, CBCA #### [facility] ([id number]) [address] [place] [address] [place] [address] LEUKOCYTE ESTERASE BRENDEN Negative Normal NEG [facility] Comment on above: Performed By: #### 1 0839-9, 70816-9, CMP, CBCA #### [facility] ([id number]) [address] [place] [address] [place] [address] NITRITE BRENDEN Negative Normal NEG [facility] Comment on above: Performed By: #### 1 0839-9, 11787-8, CMP, CBCA #### [facility] ([id number]) [address] [place] [address] [place] [address] PH BRENDEN 5.5 Normal 5.0-8.5 [facility] Comment on above: Performed By: #### 1 0839-9, 98090-0, CMP, CBCA #### [facility] ([id number]) [address] [place] [address] PROTEIN BRENDEN >=300 Abnormal NEG [facility] Comment on above: Performed By: #### 1 0839-9, 12190-4, CMP, CBCA #### [facility] ([id number]) [address] [place] [address] SPECIFIC GRAVITY BRENDEN 1.020 Normal 1.003-1.035 [facility] Comment on above: Performed By: #### 1 0839-9, 06650-6, CMP, CBCA #### [facility] ([id number]) [address] [place] [address] UROBILINOGEN BRENDEN 0.2 eu/dL Normal <1.[address] [facility] Comment on above: Performed By: #### 1 0839-9, 60225-3, CMP, CBCA #### [facility] ([id number]) [address] [place] [address] BASIC METABOLIC PANLon 06-14 Anion gap [Moles/Vol] 11 mmol/L Normal 5-15 [facility] Comment on above: Performed By: #### C GAVI, BMP, 27750-0, 2777-1, 2731-8, 95806-7 #### [facility] ([id number]) [address], [address] [place] [address] Calcium [Mass/Vol] 8.7 mg/dL Normal 8.5-10.5 [facility] Comment on above: Performed By: #### C BC, BMP, 47847-9, 2777-1, 2731-8, 89539-9 #### [facility] ([id number]) [address], [address] [place] [address] Chloride [Moles/Vol] 99 mmol/L Normal 98-109 [facility] Comment on above: Performed By: #### C BC, BMP, 78323-8, 2777-1, 2731-8, 33435-7 #### [facility] ([id number]) [address], [address] [place] [address] CO2 [Moles/Vol] 30 mmol/L Normal 22-32 [facility] Comment on above: Performed By: #### C BC, BMP, 59391-9, 2777-1, 2731-8, 30349-6 #### [facility] ([id number]) [address], [address] [place] [address] Creatinine [Mass/Vol] 1.68 mg/dL High 0.40-1.00 [facility] Comment on above: Result Comment: METH OD TRACEABLE TO IDMS STANDARD Performed By: #### C BC, BMP, 57107-3, 7-1, 2731-8, 08773-0 #### [facility] ([id number]) [address], [address] [place] [address] GFR/1.73 sq M.predicted among non-blacks MDRD (S/P/Bld) [Vol rate/Area] 41 mL/min/{1.73_m2} Low >59 [facility] Comment on above: Result Comment: Reported eGFR is based on the CKD-EPI 2020 equation that does not use a race coefficient. Performed By: #### C BC, BMP, 16240-0, 7-1, 273-8, 57364-5 #### [facility] ([id number]) [address], [address] [place] [address] Glucose [Mass/Vol] 166 mg/dL High 65-99 [facility] Comment on above: Performed By: #### C BC, BMP, 57971-5, 2777-1, 2731-8, 51132-2 #### [facility] ([id number]) [address], [address] [place] [address] Potassium [Moles/Vol] 4.0 mmol/L Normal 3.5-5.0 [facility] Comment on above: Performed By: #### C BC, BMP, 38727-3, 2777-1, 2731-8, 15090-9 #### [facility] ([id number]) [address], [address] [place] [address] Sodium [Moles/Vol] 140 mmol/L Normal 134-146 [facility] Comment on above: Performed By: #### C BC, BMP, 92696-8, 2777-1, 2731-8, 86140-4 #### [facility] ([id number]) [address], [address] [place] [address] Urea nitrogen [Mass/Vol] 33 mg/dL High 5-23 [facility] Comment on above: Performed By: #### C BC, BMP, 11163-7, 2777-1, 2731-8, 67967-6 #### [facility] ([id number]) [address], [address] [place] [address] COMPLETE BLOOD COUNTon 06-14 Erythrocyte distribution width (RBC) [Ratio] 14.8 % Normal 11.5-15.0 [facility] Comment on above: Performed By: #### C BC, BMP, 79802-4, 2777-1, 2731-8, 23764-8 #### [facility] ([id number]) [address], [address] [place] [address] Hematocrit (Bld) [Volume fraction] 36.5 % Normal 35-47 [facility] Comment on above: Performed By: #### C BC, BMP, 05027-7, 2777-1, 2731-8, 57713-1 #### [facility] ([id number]) [address], [address] [place] [address] Hemoglobin (Bld) [Mass/Vol] 12.5 g/dL Normal 11.7-15.5 [facility] Comment on above: Performed By: #### C BC, BMP, 27238-4, 2777-1, 2731-8, 14765-3 #### [facility] ([id number]) [address] [address] [place] [address] MCH (RBC) [Entitic mass] 29.9 pg Normal 27-34 [facility] Comment on above: Performed By: #### Nataliia GATICA, BMP, 94592-9, 2777-1, 2731-8, 80080-4 #### [facility] ([id number]) [address], [facility] [address] [place] [address] MCHC (RBC) [Mass/Vol] 34.4 g/dL Normal 32-36 [facility] Comment on above: Performed By: #### Nataliia GATICA, BMP, 65425-1, 7-1, 273-8, 35422-8 #### [facility] ([id number]) [address] [place] [address] MCV (RBC) [Entitic vol] 87 fL Normal 80-100 [facility] Comment on above: Performed By: #### Nataliia GATICA BMP, 35436-1, 2776-1, 2731-8, 16947-2 #### [facility] ([id number]) [address] [address] [place] [address] Platelet mean volume (Bld) [Entitic vol] 7.9 fL Normal 7-12 [facility] Comment on above: Performed By: #### Nataliia GATICA, BMP, 73875-8, 2776-1, 273-8, 99695-3 #### [facility] ([id number]) [address] [address] [place] [address] Platelets (Bld) [#/Vol] 292 10*3/uL Normal 150-450 [facility] Comment on above: Performed By: #### Nataliia GATICA, BMP, 11389-2, 2776-1, 2731-8, 06554-4 #### [facility] ([id number]) [address] [address] [place] [address] RBC COUNT 4.20 X10E12/L Normal 3.80-5.20 [facility] Comment on above: Performed By: #### C BC, BMP, 52392-6, 2777-1, 2731-8, 34516-4 #### [facility] ([id number]) [address], [address] [place] [address] WBC (Bld) [#/Vol] 8.3 10*3/uL Normal 4.0-11.0 [facility] Comment on above: Performed By: #### C BC, BMP, 74738-6, 2777-1, 2731-8, 22307-7 #### [facility] ([id number]) [address], [address] [place] [address] MAGNESIUMon 06-14-2023 Magnesium [Mass/Vol] 1.8 mg/dL Normal 1.8-2.6 [facility] Comment on above: Performed By: #### C BC, BMP, 81461-5, 2777-1, 2731-8, 40593-2 #### [facility] ([id number]) [address], [address] [place] [address] NUC STRESS EXERCISEon 2023 NUC STRESS EXERCISE NUC STRESS EXERCISE CLINICAL INFORMATION: Unstable angina. Indication: * Evaluation of extent and severity of coronary artery disease * Risk stratification-post myocardial infarction/preoperativ e assessment/general assessment of acute chest pain Technique: Stress Dose: 35.7 mCi Tc99m Sestamibi. Resting Dose: 11.9 mCi Tc99m Sestamibi. Stress and rest myocardial SPECT perfusion exam was performed with gating of the left ventricle. The patient was physically stressed. Patient achieved heart rate 164 bpm, 87% of expected maximum. CT attenuation correction was not performed. COMPARISON: No relevant prior studies available. Findings: Fixed defect mild to moderate severity, medium-sized anterolateral inferolateral wall, without associated wall motion abnormality, favored artifactual. Left ventricular ejection fraction is 70% LVEDV 138 mL Wall motion is grossly normal TID: 0.83 IMPRESSION: * No convincing fixed or reversible defects. Coronary flow reserve. * Ejection fraction 70%. * Left ventricular end diastolic dilatation. * Otherwise low risk for a cardiovascular event. For reference: Low risk for cardiovascular event a-normal or small myocardial perfusion defect with stress <10% total myocardium b-no high risk findings such as severe LV dysfunction c-normal study Intermediate risk for cardiovascular event a-LV resting dysfunction EF 35-50% b-moderate sized perfusion defect without high risk features (10-20% total myocardium) High risk for cardiovascular event a-EF <35% at rest b-severe exercise induced LV dysfunction c-stress induced large perfusion defect >20% myocardium d-multiple moderate sized stress induced perfusion defects e-large, fixed defect with LV dilation f-stress induced moderate perfusion defect with LV dilation Finalized by Mario Ribera on 06/14/2023 12:01 PM Normal [facility] PHOSPHORUSon 06-14-2023 Phosphate [Mass/Vol] 3.1 mg/dL Normal 2.4-4.9 [facility] Comment on above: Performed By: #### C BC, BMP, 07622-8, 2777-1, 2731-8, 66609-7 #### [facility] ([id number]) [address], [address] [place] [address] PROTEIN CREAT RATIOon 2023 RANDOM URINE PROTEIN 1140 mg/L High <120 [facility] Comment on above: Performed By: #### U PCR #### [facility] ([id number]) [address], [address] [place] [address] U/PRO/JAVA PROGRAMMER RATIO CALC 1.89 High <0.2 [facility] Comment on above: Result Comment: Neph rotic Syndrome is associated with ratios >3.5 Performed By: #### U PCR #### [facility] ([id number]) [address], [address] [place] [address] URINE CREATININE,RDM 60.16 mg/dL Normal [facility] Comment on above: Performed By: #### U PCR #### [facility] ([id number]) [address], [address] [place] [address] Parathyrin.intact [Mass/Vol] on 06-14-2023 PTH INTACT 80 pg/mL Normal 12-88 [facility] Comment on above: Performed By: #### C BC, [facility], 15294-8, 2777-1, 2731-8, 07412-7 #### [facility] ([id number]) [address] [place] [address] URINALYSISon 06-14-2023 Bilirubin Ql (U) Negative Normal NEG [facility] BLOOD/HGB Large Abnormal NEG [facility] Color (U) YELLOW Normal YELLOW [facility] Glucose Ql (U) Negative Normal NEG [facility] Ketones Ql (U) Negative Normal NEG [facility] Leukocyte esterase Test strip Ql (U) Negative Normal NEG [facility] MUCOUS PRESENT Abnormal NONE [facility] Nitrite Ql (U) Negative Normal NEG [facility] pH (U) 6.5 [pH] Normal 5.0-8.5 [facility] Protein Ql (U) 200 mg/dL Abnormal NEG [facility] R.B.CELLS 146 /hpf High 0-5 [facility] Specific gravity (U) [Rel density] 1.009 Normal 1.003-1.035 [facility] SQUAMOUS EPITHELIUM <1 Normal 0-5 [facility] TURBIDITY CLEAR Normal CLEAR [facility] Urobilinogen (U) [Mass/Vol] mg/dL Normal <1.1 [facility] W.B.CELLS 4 /hpf Normal 0-5 [facility] Vitamin D+Metabolites [Mass/ Vol]on 06-14-2023 VITAMIN D 25 HYD TOT 24.0 ng/mL Low 30-100 [facility] Comment on above: Result Comment: Vitamin D status 25 [place] Vitamin D Deficiency <20 ng/mL Insufficiency 20-29 ng/mL Sufficiency 30-100 ng/mL Toxicity >100 ng/mL NOTE: A pediatric reference range has not been established by the [employer] [place] of this kit. The [place] [employer] recommends a Vitamin D level of = or >20ng/mL in infants and children. Performed By: #### C BC, BMP, 21820-6, 2777-1, 2731-8, 94975-6 #### [facility] ([id number]) [address] [place] [address] BASIC METABOLIC PANLon 06-03 Anion gap [Moles/Vol] 9 mmol/L Normal 5-15 [facility] Comment on above: Performed By: #### 1 0839-9, 08552-7, CMP, CBCA #### [facility] ([id number]) [address] [place] [address] Calcium [Mass/Vol] 8.5 mg/dL Normal 8.5-10.5 [facility] Comment on above: Performed By: #### 1 0839-9, 88648-1, CMP, CBCA #### [facility] ([id number]) [address] [place] [address] Chloride [Moles/Vol] 100 mmol/L Normal 98-109 [facility] Comment on above: Performed By: #### 1 0839-9, 08357-7, CMP, CBCA #### [facility] ([id number]) [address] [place] [address] CO2 [Moles/Vol] 24 mmol/L Normal 22-32 [facility] Comment on above: Performed By: #### 1 0839-9, 25726-0, CMP, CBCA #### [facility] ([id number]) [address] [place] [address] Creatinine [Mass/Vol] 1.70 mg/dL High 0.40-1.00 [facility] Comment on above: Result Comment: METH OD TRACEABLE TO IDMS STANDARD Performed By: #### 1 0839-9, 88194-8, CORINA, CBCA #### [facility] ([id number]) [address] [place] [address] GFR/1.73 sq M.predicted among non-blacks MDRD (S/P/Bld) [Vol rate/Area] 41 mL/min/{1.73_m2} Low >59 [facility] Comment on above: Result Comment: Reported eGFR is based on the CKD-EPI 1 equation that does not use a race coefficient. Performed By: #### 1 0839-9, 82039-8, CORINA, CBCA #### [facility] ([id number]) [address] [place] [address]80 Glucose [Mass/Vol] 213 mg/dL High 65-99 [facility] Comment on above: Performed By: #### 1 0839-9, 40220-9, CORINA, CBCA #### [facility] ([id number]) [address] [place] [address] Potassium [Moles/Vol] 4.4 mmol/L Normal 3.5-5.0 [facility] Comment on above: Performed By: #### 1 0839-9, 94331-5, CORINA, CBCA #### [facility] ([id number]) [address] [place] [address] Sodium [Moles/Vol] 133 mmol/L Low 134-146 [facility] Comment on above: Performed By: #### 1 0839-9, 86656-3, CORINA, CBCA #### [facility] ([id number]) [address] [place] [address] Urea nitrogen [Mass/Vol] 23 mg/dL Normal 5-23 [facility] Comment on above: Performed By: #### 1 0839-9, 41532-4, CORINA, CBCA #### [facility] ([id number]) [address] [place] [address] CBC AND AUTO DIFFon 06-03-19 ABSOLUTE BASOPHIL 0.0 X10E9/L Normal 0.0-0.2 [facility] Comment on above: Performed By: #### 1 0839-9, 59811-6, CMP, CBCA #### [facility] ([id number]) [address] [place] [address] ABSOLUTE NEUTROPHIL 6.5 X10E9/L Normal 1.5-6.6 [facility] Comment on above: Performed By: #### 1 0839-9, 70149-7, CMP, CBCA #### [facility] ([id number]) [address] [place] [address] Basophils/100 WBC (Bld) 0.2 % Normal [facility] Comment on above: Performed By: #### 1 0839-9, 58385-5, CMP, CBCA #### [facility] ([id number]) [address] [place] [address]704 Eosinophils (Bld) [#/Vol] 0.0 10*3/uL Normal 0.0-0.4 [facility] Comment on above: Performed By: #### 1 0839-9, 62293-9, CMP, CBCA #### [facility] ([id number]) [address] [place] [address]1480 Eosinophils/100 WBC (Bld) 0.1 % Normal [facility] Comment on above: Performed By: #### 1 0839-9, 80973-8, CMP, CBCA #### [facility] ([id number]) [address] [place] [address]77 Erythrocyte distribution width (RBC) [Ratio] 14.9 % Normal 11.5-15.0 [facility] Comment on above: Performed By: #### 1 0839-, 07809-7, CMP, CBCA #### [facility] ([id number]) [address] [place] [address] Hematocrit (Bld) [Volume fraction] 36.0 % Normal 35-47 [facility] Comment on above: Performed By: #### 1 0839-9, 16319-4, CMP, CBCA #### [facility] ([id number]) [address] [place] [address]64 Hemoglobin (Bld) [Mass/Vol] 12.8 g/dL Normal 11.7-15.5 [facility] Comment on above: Performed By: #### 1 0839-, 82673-8, CMP, CBCA #### [facility] ([id number]) [address] [place] [address]72 Lymphocytes (Bld) [#/Vol] 0.4 10*3/uL Low 1.0-3.5 [facility] Comment on above: Performed By: #### 1 0839-9, 58406-1, CMP, CBCA #### [facility] ([id number]) [address] [place] [address]72 Lymphocytes/100 WBC (Bld) 6.2 % Normal [facility] Comment on above: Performed By: #### 1 0839-9, 71361-6, CMP, CBCA #### [facility] ([id number]) [address] [place] [address]7836 MCH (RBC) [Entitic mass] 30.2 pg Normal 27-34 [facility] Comment on above: Performed By: #### 1 0839-, 98659-5, CMP, CBCA #### [facility] ([id number]) [address] [place] [address] 15087 MCHC (RBC) [Mass/Vol] 35.4 g/dL Normal 32-36 [facility] Comment on above: Performed By: #### 1 0839-9, 58329-9, CMP, CBCA #### [facility] ([id number]) [address] [place] [address]77 MCV (RBC) [Entitic vol] 85 fL Normal 80-100 [facility] Comment on above: Performed By: #### 1 0839-9, 96154-5, CMP, CBCA #### [facility] ([id number]) [address] [place] [address] 70568 Monocytes (Bld) [#/Vol] 0.2 10*3/uL Normal 0-0.9 [facility] Comment on above: Performed By: #### 1 0839-9, 21698-4, CMP, CBCA #### [facility] ([id number]) [address] [place] [address] 05131 Monocytes/100 WBC (Bld) 3.1 % Normal [facility] Comment on above: Performed By: #### 1 0839-9, 71276-1, CMP, CBCA #### [facility] ([id number]) [address] [place] [address] 90616 Neutrophils/100 WBC (Bld) 90.4 % Normal [facility] Comment on above: Performed By: #### 1 0839-9, 42956-0, CMP, CBCA #### [facility] ([id number]) [address] [place] [address] 54983 Platelet mean volume (Bld) [Entitic vol] 6.9 fL Low 7-12 [facility] Comment on above: Performed By: #### 1 0839-9, 49767-7, CMP, CBCA #### [facility] ([id number]) [address] [place] [address] 03966 Platelets (Bld) [#/Vol] 299 10*3/uL Normal 150-450 [facility] Comment on above: Performed By: #### 1 0839-9, 02708-9, CMP, CBCA #### [facility] ([id number]) [address] [place] [address] 45764 RBC COUNT 4.23 X10E12/L Normal 3.80-5.20 [facility] Comment on above: Performed By: #### 1 0839-9, 14114-8, CMP, CBCA #### [facility] ([id number]) [address] [place] [address] 72455 WBC (Bld) [#/Vol] 7.2 10*3/uL Normal 4.0-11.0 [facility] Comment on above: Performed By: #### 1 0839-9, 78501-8, CMP, CBCA #### [facility] ([id number]) [address] [place] [address] 69834 DRUG SCREEN, URINEon 024 AMPHETAMINE/METHAMP Negative Normal NEG [facility] Comment on above: Result Comment: AMPH /METH screening cut off = 1000 ng/mL Performed By: #### 1 0839-9, 57617-8, CMP, CBCA #### [facility] ([id number]) [address] [place] [address] 45206 BARBITURATES Negative Normal NEG [facility] Comment on above: Result Comment: Lisa iturates screening cut off value = 200 ng/mL Performed By: #### 1 0839-9, 08874-5, CMP, CBCA #### [facility] ([id number]) [address] [place] [id number] BENZODIAZEPINES Negative Normal NEG [facility] Comment on above: Result Comment: Ferdinand odiazepines screening cut off value = 200 ng/mL Performed By: #### 1 0839-9, 76038-6, CMP, CBCA #### [facility] ([id number]) [address] [place] [id number] CANNABINOIDS Positive Abnormal NEG [facility] Comment on above: Result Comment: Conf irmation available upon request. Cannabinoids/THC screening cut off value = 50 ng/mL Performed By: #### 1 0839-9, 04898-8, CMP, CBCA #### [facility] ([id number]) [address] [place] [address] COCAINE METABOLITE Negative Normal NEG [facility] Comment on above: Result Comment: Coca ine screening cut off value = 300 ng/mL Performed By: #### 1 0839-9, 35432-2, CMP, CBCA #### [facility] ([id number]) [address] [place] [address] ECSTASY Negative Normal NEG [facility] Comment on above: Result Comment: Ecst asy screening cut off value = 500 ng/mL This report is intended for use in clinical monitoring or management of patients. Performed By: #### 1 0839-9, 06996-3, CMP, CBCA #### [facility] ([id number]) [address] [place] [address] METHADONE Negative Normal NEG [facility] Comment on above: Result Comment: Meth adone screening cut off value = 300 ng/mL. Performed By: #### 1 0839-9, 27036-3, CMP, CBCA #### [facility] ([id number]) [address] [place], [place] [address] OPIATES Positive Abnormal NEG [facility] Comment on above: Result Comment: Conf irmation available upon request. Opiates screening cut off value = 300 ng/mL NOTE: This test is used for the detection of codeine, hydrocodone (>1000 ng/mL), morphine and hydromorphone (>900 ng/mL) in urine. Performed By: #### 1 0839-9, 38308-1, CMP, CBCA #### [facility] ([id number]) [address] [place] [address], [place] [address] OXYCODONE Negative Normal NEG [facility] Comment on above: Result Comment: Oxyc odone screening cut off value = 300 ng/mL NOTE: This test is used for the detection of oxycodone and oxymorphone in urine. Performed By: #### 1 0839-9, 42712-0, CMP, CBCA #### [facility] ([id number]) [address] [place] [address] 99620 PHENCYCLIDINE Negative Normal NEG [facility] Comment on above: Result Comment: Phen cyclidine screening cut off value = 25 ng/mL Performed By: #### 1 0839-9, 79077-7, CMP, CBCA #### [facility] ([id number]) [address] [place] [address] 43151 HCG ( test) IAjamal d Ql (S)on 06-03-2023 SERUM Negative Normal NEG [facility] Comment on above: Performed By: #### 1 0839-9, 30417-0, CMP, CBCA #### [facility] ([id number]) [address] [place] [address] 43439 LIPASEon 06-03-2023 Lipase [Catalytic activity/Vol] 51 U/L High 17-40 [facility] Comment on above: Performed By: #### 1 0839-9, 49212-2, CMP, CBCA #### [facility] ([id number]) [address] [place] [address] 90276 LIVER PANELon 06-03-2023 Albumin [Mass/Vol] 3.9 g/dL Normal 3.2-5.3 [facility] Comment on above: Performed By: #### 1 0839-9, 16253-3, CMP, CBCA #### [facility] ([id number]) [address] [place] [address] 76559 ALP [Catalytic activity/Vol] 51 U/L Normal 39-130 [facility] Comment on above: Performed By: #### 1 0839-9, 41180-6, CMP, CBCA #### [facility] ([id number]) [address] [place] [address] 40657 ALT [Catalytic activity/Vol] 18 U/L Normal 0-31 [facility] Comment on above: Performed By: #### 1 0839-9, 02028-6, CMP, CBCA #### [facility] ([id number]) [address] [place] [address] 52336 AST [Catalytic activity/Vol] 22 U/L Normal 0-41 [facility] Comment on above: Performed By: #### 1 0839-9, 27596-1, CMP, CBCA #### [facility] ([id number]) [address] [place] [address] 71761 Bilirubin [Mass/Vol] 0.5 mg/dL Normal 0.3-1.2 [facility] Comment on above: Performed By: #### 1 0839-9, 96056-1, CMP, CBCA #### [facility] ([id number]) [address] [place] [address] 49711 Bilirubin.direct [Mass/Vol] 0.1 mg/dL Normal 0.0-0.4 [facility] Comment on above: Performed By: #### 1 0839-9, 27888-1, CMP, CBCA #### [facility] ([id number]) [address] [place] [address] 65870 Protein [Mass/Vol] 6.6 g/dL Normal 6.0-8.0 [facility] Comment on above: Performed By: #### 1 0839-9, 03881-0, CMP, CBCA #### [facility] ([id number]) [address] [place] [address] 01256 MAGNESIUMon 06-03-2023 Magnesium [Mass/Vol] 1.9 mg/dL Normal 1.8-2.6 [facility] Comment on above: Performed By: #### 1 0839-9, 69836-8, CMP, CBCA #### [facility] ([id number]) [address] [place] [address] 64319 Myoglobin [Mass/Vol]on 06-03 SERUM MYOGLOBIN 21.1 ng/mL Normal 14.3-65.8 [facility] Comment on above: Performed By: #### 1 0839-9, 61494-4, CMP, CBCA #### [facility] ([id number]) [address] [place] [address] 03080 PROTIME AND INRon 06-03-2023 INR Coag (PPP) [Relative time] 1.8 {INR} High 0.8-1.1 [facility] Comment on above: Performed By: #### 1 0839-9, 80705-6, CORINA, CBCA #### [facility] ([id number]) [address] [place] [address] 50405 PT Coag (PPP) [Time] 20.7 s High 9.8-13.2 [facility] Comment on above: Result Comment: NEW REFERENCE RANGE Performed By: #### 1 0839-9, 98246-4, CMP, CBCA #### [facility] ([id number]) [address] [place] [address] 42037 SARS/FLU A+B/RSV by NAAT/Mol ecularon 06-03-2023 SARS/FLU A+B/RSV by NAAT/Molecular FLU A PCR Negative (qualifier value) FLU B PCR Negative (qualifier value) RSV by PCR Negative (qualifier value) SARS CoV 2 Not detected (qualifier value) NOTE The Xpert Xpress SARS-CoV-2/Flu/RSV Plus test is a rapid, multiplexed real-time RT-PCR test intended for the simultaneous qualitative detection and differentiation of SARS-CoV-2, influenza A, influenza B and respiratory syncytial virus (RSV) viral RNA from individuals suspected of respiratory viral infection consistent with COVID-19 by their healthcare provider. This test has not been validated in asymptomatic patients. The Xpert Xpress SARS-CoV-2 test is intended for use by qualified and trained operators who are performing tests using either [facility] or [facility] systems and is limited to laboratories that meet the CLIA requirements to perform high and moderate complexity tests. The Xpert Xpress SARS-CoV-2/Flu/RSV Plus is only for use under the Food and Drug Administration's Emergency Use Authorization. Results are for the simultaneous detection and differentiation of SARS-CoV-2, influenza A, influenza B and RSV nucleic acids in clinical specimens. SARS-CoV-2, influenza A, influenza B and RSV RNA identified by this test are generally detectable in upper respiratory samples during the acute phase of infection. Positive results are indicative of the presence of the identified virus, but do not rule out bacterial infection or co-infection with other pathogens not detected by this test. Clinical correlation with patient history and other diagnostic information is necessary to determine patient infection status. The agent detected may not be the definite cause of disease. Negative results do not preclude SARS-CoV-2, influenza A, influenza B and RSV infection and should not be used as the sole basis for treatment or other patient management decisions. Negative results must be combined with clinical observations, patient history and epidemiological information. An Invalid result may occur with specimen-associated inhibition unable to be resolved with specimen repeat. Fact Sheet for Healthcare Providers: https://www.fda.gov/sd fariha/876971/download Fact Sheet for Patients: https://www.fda.gov/me fariha/309962/download Normal [facility] Comment on above: Performed By: #### 1 0839-9, 81021-6, CMP, CBCA #### [facility] ([id number]) [address] [place] [address] THYROID PROFILEon 06-03-2023 Free T4 [Mass/Vol] 1.00 ng/dL Normal 0.61-1.60 [facility] Comment on above: Performed By: #### 1 0839-9, 80021-4, CMP, CBCA #### [facility] ([id number]) [address] [place] [address] 73466 TSH 0.82 uIU/mL Normal 0.49-4.67 [facility] Comment on above: Performed By: #### 1 0839-9, 35915-6, CMP, CBCA #### [facility] ([id number]) [address] [place] [address] 31697 TROPONIN Ion 06-03-2023 Troponin I.cardiac [Mass/Vol] 0.01 ng/mL Normal 0.00-0.04 [facility] Comment on above: Performed By: #### 1 0839-9, 27210-9, CMP, CBCA #### [facility] ([id number]) [address] [place] [address] 94729 URN MACROSCOPIC NURon 2023 BILIRUBIN BRENDEN Negative Normal NEG [facility] Comment on above: Performed By: #### 1 0839-9, 02027-1, CMP, CBCA #### [facility] ([id number]) [address] [place] [address] 40888 BLOOD/HGB BRENDEN Large Abnormal NEG [facility] Comment on above: Performed By: #### 1 0839-9, 07456-3, CMP, CBCA #### [facility] ([id number]) [address] [place] [address] 84007 GLUCOSE BRENDEN Negative Normal NEG [facility] Comment on above: Performed By: #### 1 0839-9, 57057-6, CMP, CBCA #### [facility] ([id number]) [address] [place] [address] 84890 KETONES BRENDEN Negative Normal NEG [facility] Comment on above: Performed By: #### 1 0839-9, 22099-8, CMP, CBCA #### [facility] ([id number]) [address] [place] [address] LEUKOCYTE ESTERASE BRENDEN Negative Normal NEG [facility] Comment on above: Performed By: #### 1 0839-9, 50349-7, CMP, CBCA #### [facility] ([id number]) [address] [place] [address] 92390 NITRITE BRENDEN Negative Normal NEG [facility] Comment on above: Performed By: #### 1 0839-9, 45204-4, CMP, CBCA #### [facility] ([id number]) [address] [place] [address] 29945 PH BRENDEN 6.0 Normal 5.0-8.5 [facility] Comment on above: Performed By: #### 1 0839-9, 62602-1, CMP, CBCA #### [facility] ([id number]) [address] [place] [address] 11253 PROTEIN BRENDEN >=300 Abnormal NEG [facility] Comment on above: Performed By: #### 1 0839-9, 84450-5, CMP, CBCA #### [facility] ([id number]) [address] [place] [address] 38573 SPECIFIC GRAVITY BRENDEN 1.015 Normal 1.003-1.035 [facility] Comment on above: Performed By: #### 1 0839-9, 93908-1, CMP, CBCA #### [facility] ([id number]) [address] [place] [address] [place] [address] UROBILINOGEN BRENDEN 0.2 eu/dL Normal <1.[address] [facility] Comment on above: Performed By: #### 1 0839-9, 34496-0, CMP, CBCA #### [facility] ([id number]) [address] [place] [address] 55007 aPTT Coag (PPP) [Time]on aPTT Coag (Bld) [Time] 41 s High 26-37 [facility] Comment on above: Result Comment: NEW REFERENCE RANGE Performed By: #### 1 0839-9, 21251-1, CMP, CBCA #### [facility] ([id number]) [address] [place] [address] 30438 XR CHEST 1 VWon 05-16-2023 XR CHEST 1 VW XR CHEST 1 VW Single view chest History:chest pain Difficulty breathing, shortness of breath Comparison: 05/10/2023 Findings: Single portable view of the chest. Expiratory changes with bronchovascular crowding. Stable cardiomediastinal silhouette. No focal consolidation large effusion or pneumothorax. Impression: No evidence of acute cardiopulmonary process. Finalized by Jax Jean MD on 05/15/2023 11:43 PM Normal [facility] CBC AND AUTO DIFFon 05-15-19 24 ABSOLUTE BASOPHIL 0.0 X10E9/L Normal 0.0-0.2 [facility] Comment on above: Performed By: #### 1 0839-9, CMP, CBCA #### [facility] ([id number]) [address] [place] [address] 55582 ABSOLUTE NEUTROPHIL 6.8 X10E9/L High 1.5-6.6 [facility] Comment on above: Performed By: #### 1 0839-9, CMP, CBCA #### [facility] ([id number]) [address] [place] [address] 02153 Basophils/100 WBC (Bld) 0.4 % Normal [facility] Comment on above: Performed By: #### 1 0839-9, CMP, CBCA #### [facility] ([id number]) [address] [place] [address] 59549 Eosinophils (Bld) [#/Vol] 0.0 10*3/uL Normal 0.0-0.4 [facility] Comment on above: Performed By: #### 1 0839-9, CMP, CBCA #### [facility] ([id number]) [address] [place] [address] Eosinophils/100 WBC (Bld) 0.3 % Normal [facility] Comment on above: Performed By: #### 1 0839-9, CMP, CBCA #### [facility] ([id number]) [address] [place] [address] 34114 Erythrocyte distribution width (RBC) [Ratio] 13.9 % Normal 11.5-15.0 [facility] Comment on above: Performed By: #### 1 0839-9, CMP, CBCA #### [facility] ([id number]) [address] [place] [address] 33746 Hematocrit (Bld) [Volume fraction] 38.4 % Normal 35-47 [facility] Comment on above: Performed By: #### 1 0839-9, CMP, CBCA #### [facility] ([id number]) [address] [place] [address] 91054 Hemoglobin (Bld) [Mass/Vol] 13.0 g/dL Normal 11.7-15.5 [facility] Comment on above: Performed By: #### 1 0839-9, CMP, CBCA #### [facility] ([id number]) [address] [place] [address] 77985 Lymphocytes (Bld) [#/Vol] 0.7 10*3/uL Low 1.0-3.5 [facility] Comment on above: Performed By: #### 1 0839-9, CMP, CBCA #### [facility] ([id number]) [address] [place] [address] 14265 Lymphocytes/100 WBC (Bld) 8.3 % Normal [facility] Comment on above: Performed By: #### 1 0839-9, CMP, CBCA #### [facility] ([id number]) [address] [place] [address] 89726 MCH (RBC) [Entitic mass] 29.7 pg Normal 27-34 [facility] Comment on above: Performed By: #### 1 0839-9, CMP, CBCA #### [facility] ([id number]) [address] [place] [address] 09174 MCHC (RBC) [Mass/Vol] 33.9 g/dL Normal 32-36 [facility] Comment on above: Performed By: #### 1 0839-9, CMP, CBCA #### [facility] ([id number]) [address] [place] [address] 24196 MCV (RBC) [Entitic vol] 88 fL Normal 80-100 [facility] Comment on above: Performed By: #### 1 0839-9, CMP, CBCA #### [facility] ([id number]) [address] [place] [address] 06608 Monocytes (Bld) [#/Vol] 0.7 10*3/uL Normal 0-0.9 [facility] Comment on above: Performed By: #### 1 0839-9, CMP, CBCA #### [facility] ([id number]) [address] [place] [address] 91371 Monocytes/100 WBC (Bld) 8.6 % Normal [facility] Comment on above: Performed By: #### 1 0839-9, CMP, CBCA #### [facility] ([id number]) [address] [place] [address] 21881 Neutrophils/100 WBC (Bld) 82.4 % Normal [facility] Comment on above: Performed By: #### 1 0839-9, CMP, CBCA #### [facility] ([id number]) [address] [place] [address] 48167 Platelet mean volume (Bld) [Entitic vol] 7.2 fL Normal 7-12 [facility] Comment on above: Performed By: #### 1 0839-9, CMP, CBCA #### [facility] ([id number]) [address] [place] [address] 00999 Platelets (Bld) [#/Vol] 288 10*3/uL Normal 150-450 [facility] Comment on above: Performed By: #### 1 0839-9, CMP, CBCA #### [facility] ([id number]) [address] [place] [address] 64366 RBC COUNT 4.39 X10E12/L Normal 3.80-5.20 [facility] Comment on above: Performed By: #### 1 0839-9, CMP, CBCA #### [facility] ([id number]) [address] [place] [address] 05307 WBC (Bld) [#/Vol] 8.3 10*3/uL Normal 4.0-11.0 [facility] Comment on above: Performed By: #### 1 0839-9, CMP, CBCA #### [facility] ([id number]) [address] [place] [address] 70165 COMPREHENSIVE METABOLIC PANE Gerardo 05-15-2023 Albumin [Mass/Vol] 4.0 g/dL Normal 3.2-5.3 [facility] Comment on above: Performed By: #### 1 0839-9, CMP, CBCA #### [facility] ([id number]) [address] [place] [address] 35576 ALP [Catalytic activity/Vol] 61 U/L Normal 39-130 [facility] Comment on above: Performed By: #### 1 0839-9, CMP, CBCA #### [facility] ([id number]) [address] [place] [address] 82447 ALT [Catalytic activity/Vol] 17 U/L Normal 0-31 [facility] Comment on above: Performed By: #### 1 0839-9, CMP, CBCA #### [facility] ([id number]) [address] [place] [address] 86895 Anion gap [Moles/Vol] 9 mmol/L Normal 5-15 [facility] Comment on above: Performed By: #### 1 0839-9, CMP, CBCA #### [facility] ([id number]) [address] [place] [address] 42591 AST [Catalytic activity/Vol] 15 U/L Normal 0-41 [facility] Comment on above: Performed By: #### 1 0839-9, CMP, CBCA #### [facility] ([id number]) [address] [place] [address] 05151 Bilirubin [Mass/Vol] 0.6 mg/dL Normal 0.3-1.2 [facility] Comment on above: Performed By: #### 1 0839-9, CMP, CBCA #### [facility] ([id number]) [address] [place] [address] 58545 Calcium [Mass/Vol] 8.9 mg/dL Normal 8.5-10.5 [facility] Comment on above: Performed By: #### 1 0839-9, CMP, CBCA #### [facility] ([id number]) [address] [place] [address] 55677 Chloride [Moles/Vol] 100 mmol/L Normal 98-109 [facility] Comment on above: Performed By: #### 1 0839-9, CMP, CBCA #### [facility] ([id number]) [address] [place] [address] 60799 CO2 [Moles/Vol] 29 mmol/L Normal 22-32 [facility] Comment on above: Performed By: #### 1 0839-9, CMP, CBCA #### [facility] ([id number]) [address], [place] [address] Creatinine [Mass/Vol] 1.54 mg/dL High 0.40-1.00 [facility] Comment on above: Result Comment: METH OD TRACEABLE TO IDMS STANDARD Performed By: #### 1 0839-9CORINA, CBCA #### [facility] ([id number]) [address] [place] [address] 07893 GFR/1.73 sq M.predicted among non-blacks MDRD (S/P/Bld) [Vol rate/Area] 46 mL/min/{1.73_m2} Low >59 [facility] Comment on above: Result Comment: Reported eGFR is based on the CKD-EPI 2020 equation that does not use a race coefficient. Performed By: #### 1 0839-9CORINA, CBCA #### [facility] ([id number]) [address] [place] [address] 80276 Glucose [Mass/Vol] 98 mg/dL Normal 65-99 [facility] Comment on above: Performed By: #### 1 0839-9CORINA, CBCA #### [facility] ([id number]) [address] [place] [address] 01347 Potassium [Moles/Vol] 3.9 mmol/L Normal 3.5-5.0 [facility] Comment on above: Performed By: #### 1 0839-9CORINA, CBCA #### [facility] ([id number]) [address] [place] [address] 12001 Protein [Mass/Vol] 7.0 g/dL Normal 6.0-8.0 [facility] Comment on above: Performed By: #### 1 0839-9CORINA, CBCA #### [facility] ([id number]) [address] [place] [address] 43243 Sodium [Moles/Vol] 138 mmol/L Normal 134-146 [facility] Comment on above: Performed By: #### 1 0839-9, CMP, CBCA #### [facility] ([id number]) [address] [place] [address] 67608 Urea nitrogen [Mass/Vol] 27 mg/dL High 5-23 [facility] Comment on above: Performed By: #### 1 0839-9, CMP, CBCA #### [facility] ([id number]) [address] [place] [address] 12009 TROPONIN Ion 05-15-2023 Troponin I.cardiac [Mass/Vol] ng/mL Normal 0.00-0.04 [facility] Comment on above: Performed By: #### 1 0839-9, CMP, CBCA #### [facility] ([id number]) [address] [place] [address] 63914 CBC AND AUTO DIFFon 05-10-19 24 ABSOLUTE BASOPHIL 0.0 X10E9/L Normal 0.0-0.2 [facility] Comment on above: Performed By: #### 1 0839-9, 21550-5, CMP, CBCA #### [facility] ([id number]) [address] [place] [address] 66963 ABSOLUTE NEUTROPHIL 9.4 X10E9/L High 1.5-6.6 [facility] Comment on above: Performed By: #### 1 0839-9, 17680-4, CMP, CBCA #### [facility] ([id number]) [address] [place] [address] 41827 Basophils/100 WBC (Bld) 0.3 % Normal [facility] Comment on above: Performed By: #### 1 0839-9, 25887-9, CMP, CBCA #### [facility] ([id number]) [address] [place] [address] 88513 Eosinophils (Bld) [#/Vol] 0.0 10*3/uL Normal 0.0-0.4 [facility] Comment on above: Performed By: #### 1 0839-9, 46647-7, CMP, CBCA #### [facility] ([id number]) [address] [place] [address] 59808 Eosinophils/100 WBC (Bld) 0.3 % Normal [facility] Comment on above: Performed By: #### 1 0839-9, 70833-1, CMP, CBCA #### [facility] ([id number]) [address] [place] [address] 72101 Erythrocyte distribution width (RBC) [Ratio] 13.9 % Normal 11.5-15.0 [facility] Comment on above: Performed By: #### 1 0839-9, 30947-6, CMP, CBCA #### [facility] ([id number]) [address] [place] [id number] Hematocrit (Bld) [Volume fraction] 36.8 % Normal 35-47 [facility] Comment on above: Performed By: #### 1 0839-9, 23084-1, CMP, CBCA #### [facility] ([id number]) [address] [place] [address] 61878 Hemoglobin (Bld) [Mass/Vol] 12.5 g/dL Normal 11.7-15.5 [facility] Comment on above: Performed By: #### 1 0839-9, 55072-3, CMP, CBCA #### [facility] ([id number]) [address] [place] [address] 07932 Lymphocytes (Bld) [#/Vol] 1.0 10*3/uL Normal 1.0-3.5 [facility] Comment on above: Performed By: #### 1 0839-9, 90043-1, CMP, CBCA #### [facility] ([id number]) [address] [place] [address] 21695 Lymphocytes/100 WBC (Bld) 9.4 % Normal [facility] Comment on above: Performed By: #### 1 0839-9, 97744-9, CMP, CBCA #### [facility] ([id number]) [address] [place] [address] 43716 MCH (RBC) [Entitic mass] 29.7 pg Normal 27-34 [facility] Comment on above: Performed By: #### 1 0839-9, 39381-2, CMP, CBCA #### [facility] ([id number]) [address] [place] [address] 15068 MCHC (RBC) [Mass/Vol] 34.0 g/dL Normal 32-36 [facility] Comment on above: Performed By: #### 1 0839-9, 21898-7, CMP, CBCA #### [facility] ([id number]) [address] [place] [address] 24511 MCV (RBC) [Entitic vol] 88 fL Normal 80-100 [facility] Comment on above: Performed By: #### 1 0839-9, 53151-9, CMP, CBCA #### [facility] ([id number]) [address] [place] [address] 45619 Monocytes (Bld) [#/Vol] 0.6 10*3/uL Normal 0-0.9 [facility] Comment on above: Performed By: #### 1 0839-9, 24183-0, CMP, CBCA #### [facility] ([id number]) [address] [place] [address] 33435 Monocytes/100 WBC (Bld) 5.4 % Normal [facility] Comment on above: Performed By: #### 1 0839-9, 75433-4, CMP, CBCA #### [facility] ([id number]) [address] [place] [address] 58741 Neutrophils/100 WBC (Bld) 84.6 % Normal [facility] Comment on above: Performed By: #### 1 0839-9, 18305-7, CMP, CBCA #### [facility] ([id number]) [address] [place] [address] 36257 Platelet mean volume (Bld) [Entitic vol] 7.2 fL Normal 7-12 [facility] Comment on above: Performed By: #### 1 0839-9, 11951-7, CMP, CBCA #### [facility] ([id number]) [address] [place] [address] 80154 Platelets (Bld) [#/Vol] 309 10*3/uL Normal 150-450 [facility] Comment on above: Performed By: #### 1 0839-9, 95586-6, CMP, CBCA #### [facility] ([id number]) [address] [place] [address] 26625 RBC COUNT 4.21 X10E12/L Normal 3.80-5.20 [facility] Comment on above: Performed By: #### 1 0839-9, 15982-4, CMP, CBCA #### [facility] ([id number]) [address] [place] [address] 04403 WBC (Bld) [#/Vol] 11.2 10*3/uL High 4.0-11.0 [facility] Comment on above: Performed By: #### 1 0839-9, 59711-0, CMP, CBCA #### [facility] ([id number]) [address] [place] [address] 78063 COMPREHENSIVE METABOLIC PANE Gerardo 05-10-2023 Albumin [Mass/Vol] 3.8 g/dL Normal 3.2-5.3 [facility] Comment on above: Performed By: #### 1 0839-9, 41436-5, CMP, CBCA #### [facility] ([id number]) [address] [place] [address] 65400 ALP [Catalytic activity/Vol] 50 U/L Normal 39-130 [facility] Comment on above: Performed By: #### 1 0839-9, 98757-9, CMP, CBCA #### [facility] ([id number]) [address] [place] [address] 02177 ALT [Catalytic activity/Vol] 15 U/L Normal 0-31 [facility] Comment on above: Performed By: #### 1 0839-9, 85205-4, CMP, CBCA #### [facility] ([id number]) [address] [place] [address] 38431 Anion gap [Moles/Vol] 9 mmol/L Normal 5-15 [facility] Comment on above: Performed By: #### 1 0839-9, 97119-7, CMP, CBCA #### [facility] ([id number]) [address] [place] [address] 20117 AST [Catalytic activity/Vol] 19 U/L Normal 0-41 [facility] Comment on above: Performed By: #### 1 0839-9, 74439-5, CMP, CBCA #### [facility] ([id number]) [address] [place] [address] 52857 Bilirubin [Mass/Vol] 0.6 mg/dL Normal 0.3-1.2 [facility] Comment on above: Performed By: #### 1 0839-9, 44535-6, CMP, CBCA #### [facility] ([id number]) [address] [place] [address] 49008 Calcium [Mass/Vol] 8.3 mg/dL Low 8.5-10.5 [facility] Comment on above: Performed By: #### 1 0839-9, 70467-2, CMP, CBCA #### [facility] ([id number]) [address] [place] [address] 02577 Chloride [Moles/Vol] 99 mmol/L Normal 98-109 [facility] Comment on above: Performed By: #### 1 0839-9, 40996-8, CORINA, CBCAlice #### [facility] ([id number]) [address] [place] [address] 68655 CO2 [Moles/Vol] 29 mmol/L Normal 22-32 [facility] Comment on above: Performed By: #### 1 0839-9, 40435-0, CORINA, CBCA #### [facility] ([id number]) [address] [place] [address] 66282 Creatinine [Mass/Vol] 1.67 mg/dL High 0.40-1.00 [facility] Comment on above: Result Comment: METH OD TRACEABLE TO IDMS STANDARD Performed By: #### 1 0839-9, 67804-8, CORINA, CBCAlice #### [facility] ([id number]) [address] [place] [address] 10501 GFR/1.73 sq M.predicted among non-blacks MDRD (S/P/Bld) [Vol rate/Area] 42 mL/min/{1.73_m2} Low >59 [facility] Comment on above: Result Comment: Reported eGFR is based on the CKD-EPI 1 equation that does not use a race coefficient. Performed By: #### 1 0839-9, 31699-1, CORINA, CBCAlice #### [facility] ([id number]) [address] [place] [address] 76659 Glucose [Mass/Vol] 103 mg/dL High 65-99 [facility] Comment on above: Performed By: #### 1 0839-9, 72473-6, CORINA, CBCA #### [facility] ([id number]) [address] [place] [address] 45504 Potassium [Moles/Vol] 3.5 mmol/L Normal 3.5-5.0 [facility] Comment on above: Performed By: #### 1 0839-9, 07455-4, CMP, CBCA #### [facility] ([id number]) [address] [place] [address] 37507 Protein [Mass/Vol] 6.5 g/dL Normal 6.0-8.0 [facility] Comment on above: Performed By: #### 1 0839-9, 40530-0, CMP, CBCA #### [facility] ([id number]) [address] [place] [address] 48098 Sodium [Moles/Vol] 137 mmol/L Normal 134-146 [facility] Comment on above: Performed By: #### 1 0839-9, 71091-1, CMP, CBCA #### [facility] ([id number]) [address] [place] [address] 98911 Urea nitrogen [Mass/Vol] 36 mg/dL High 5-23 [facility] Comment on above: Performed By: #### 1 0839-9, 00696-1, CMP, CBCA #### [facility] ([id number]) [address] [place] [address] 51878 Fibrin D-dimer DDU (PPP) [Ma ss/Vol]on 05-10-2023 D DIMER <150 Normal <255 [facility] Comment on above: Result Comment: Results <255 ng/mL DDU: The presence of a VTE can safely be excluded with a negative D-Dimer result and Wells score. A negative result doesn't exclude the possibility of DIC. The test be repeated along with other diagnostic tests if the patient's symptoms persist or worsen. [email or web address] Performed By: #### 1 0839-9, 18539-8, CMP, CBCA #### [facility] ([id number]) [address] [place] [address] 52408 TROPONIN Ion 05-10-2023 Troponin I.cardiac [Mass/Vol] 0.01 ng/mL Normal 0.00-0.04 [facility] Comment on above: Performed By: #### 1 0839-9 #### [facility] ([id number]) [address] [place] [address] Troponin I.cardiac [Mass/Vol] 0.01 ng/mL Normal 0.00-0.04 [facility] Comment on above: Performed By: #### 1 0839-9, 33766-4, CMP, CBCA #### [facility] ([id number]) [address] [place] [address] 37904 XR CHEST 2 VWSon 05-10-2023 XR CHEST 2 VWS XR CHEST 2 VWS PA and lateral chest: HISTORY: Chest pain. 2 views of the chest are obtained. Lungs are clear. There is no vascular congestion or effusion. No pneumothorax is seen. Osseous structures appear intact. No focal consolidation. Cardiac contour is unremarkable. IMPRESSION: No acute findings. Finalized by Casper Callaway MD on 05/10/2023 10:58 AM Normal [facility] CBC AND AUTO DIFFon 05-03-19 24 ABSOLUTE BASOPHIL 0.0 X10E9/L Normal 0.0-0.2 [facility] Comment on above: Performed By: #### C JUNAID, 1986-08, CBCA, 4485-9, 4498-2, 27129-3 #### [facility] ([id number]) [address], [address] [place] [address] ABSOLUTE NEUTROPHIL 5.5 X10E9/L Normal 1.5-6.6 [facility] Comment on above: Performed By: #### C JUNAID, 1986-08, CBCA, 4485-9, 4498-2, 76301-6 #### [facility] ([id number]) [address] [place] [address] Basophils/100 WBC (Bld) 0.3 % Normal [facility] Comment on above: Performed By: #### C JUNAID, 1986-08, CBCA, 4485-9, 4498-2, 64003-4 #### [facility] ([id number]) [address], [address] [place] [address] Eosinophils (Bld) [#/Vol] 0.0 10*3/uL Normal 0.0-0.4 [facility] Comment on above: Performed By: #### C JUNAID, 1986-08, CBCA, 4485-9, 4498-2, 32206-1 #### [facility] ([id number]) [address], [address] [place] [address] Eosinophils/100 WBC (Bld) 0.5 % Normal [facility] Comment on above: Performed By: #### Nataliia QUIROGA, 1986-08, CBCA, 448-9, 4498-2, 59228-5 #### [facility] ([id number]) [address], [address] [place] [address] Erythrocyte distribution width (RBC) [Ratio] 13.3 % Normal 11.5-15.0 [facility] Comment on above: Performed By: #### Nataliia QUIROGA, 1986-08, CBCA, 4485-9, 4498-2, 37770-8 #### [facility] ([id number]) [address], [address] [place] [address] Hematocrit (Bld) [Volume fraction] 36.0 % Normal 35-47 [facility] Comment on above: Performed By: #### Nataliia QUIROGA, 1986-08, CBCA, 4485-9, 4498-2, 31422-3 #### [facility] ([id number]) [address], [address] [place] [address] Hemoglobin (Bld) [Mass/Vol] 12.3 g/dL Normal 11.7-15.5 [facility] Comment on above: Performed By: #### C JUNAID, 1986-08, CBCA, 4485-9, 4498-2, 14129-4 #### [facility] ([id number]) [address], [address] [place] [address] Lymphocytes (Bld) [#/Vol] 1.9 10*3/uL Normal 1.0-3.5 [facility] Comment on above: Performed By: #### Nataliia QUIROGA, 1986-08, CBCA, 4485-9, 4498-2, 02099-9 #### [facility] ([id number]) [address], [facility] [address] [place] [address] Lymphocytes/100 WBC (Bld) 23.5 % Normal [facility] Comment on above: Performed By: #### Nataliia QUIROGA, 1986-08, CBCA, 4485-9, 4498-2, 48572-9 #### [facility] ([id number]) [address], [address] [place] [address] MCH (RBC) [Entitic mass] 30.4 pg Normal 27-34 [facility] Comment on above: Performed By: #### C JUNAID, 1987-08, CBCA, 4485-9, 4498-2, 84568-6 #### [facility] ([id number]) [address], [address] [place] [address] MCHC (RBC) [Mass/Vol] 34.1 g/dL Normal 32-36 [facility] Comment on above: Performed By: #### C JUNAID, 1987-08, CBCA, 4485-9, 4498-2, 33865-2 #### [facility] ([id number]) [address], [address] [place] [address] MCV (RBC) [Entitic vol] 89 fL Normal 80-100 [facility] Comment on above: Performed By: #### C JUNAID, 1987-08, CBCA, 4485-9, 4498-2, 31784-4 #### [facility] ([id number]) [address], [address] [place] [address] Monocytes (Bld) [#/Vol] 0.7 10*3/uL Normal 0-0.9 [facility] Comment on above: Performed By: #### C JUNAID, 1986-08, CBCA, 4485-9, 4498-2, 80854-5 #### [facility] ([id number]) [address], [address] [place] [address] Monocytes/100 WBC (Bld) 8.3 % Normal [facility] Comment on above: Performed By: #### Nataliia QUIROGA, 1986-08, CBCA, 4485-9, 4498-2, 66718-0 #### [facility] ([id number]) [address], [address] [place] [address] Neutrophils/100 WBC (Bld) 67.4 % Normal [facility] Comment on above: Performed By: #### Nataliia QUIROGA, 1986-08, CBCA, 448-9, 4498-2, 04380-1 #### [facility] ([id number]) [address], [address] [place] [address] Platelet mean volume (Bld) [Entitic vol] 7.6 fL Normal 7-12 [facility] Comment on above: Performed By: #### Nataliia QUIROGA, 1986-08, CBCA, 4485-9, 4498-2, 89753-9 #### [facility] ([id number]) [address], [address] [place] [address] Platelets (Bld) [#/Vol] 322 10*3/uL Normal 150-450 [facility] Comment on above: Performed By: #### Nataliia QUIROGA, 1986-08, CBCA, 4485-9, 4498-2, 38397-7 #### [facility] ([id number]) [address], [address] [place] [address] RBC COUNT 4.04 X10E12/L Normal 3.80-5.20 [facility] Comment on above: Performed By: #### C JUNAID, 1987-08, CBCA, 4485-9, 4498-2, 71384-6 #### [facility] ([id number]) [address], [address] [place] [address] WBC (Bld) [#/Vol] 8.2 10*3/uL Normal 4.0-11.0 [facility] Comment on above: Performed By: #### Nataliia QUIROGA, 1986-08, CBCA, 4485-9, 4498-2, 28472-7 #### [facility] ([id number]) [address], [address] [place] [address] COMPREHENSIVE METABOLIC PANE Gerardo 05-03-2023 Albumin [Mass/Vol] 3.9 g/dL Normal 3.2-5.3 [facility] Comment on above: Performed By: #### Nataliia QUIROGA, 1986-08, CBCA, 4485-9, 4498-2, 74614-3 #### [facility] ([id number]) [address], [address] [place] [address] ALP [Catalytic activity/Vol] 51 U/L Normal 39-130 [facility] Comment on above: Performed By: #### Nataliia QUIROGA, 1986-08, CBCA, 4485-9, 4498-2, 19942-4 #### [facility] ([id number]) [address], [address] [place] [address] ALT [Catalytic activity/Vol] 9 U/L Normal 0-31 [facility] Comment on above: Performed By: #### Nataliia QUIROGA, 1986-08, CBCA, 4485-9, 4498-2, 70774-8 #### [facility] ([id number]) [address], [address] [place] [address] Anion gap [Moles/Vol] 10 mmol/L Normal 5-15 [facility] Comment on above: Performed By: #### C JUNAID, 1987-08, CBCA, 4485-9, 4498-2, 88782-2 #### [facility] ([id number]) [address], [address] [place] [address] AST [Catalytic activity/Vol] 12 U/L Normal 0-41 [facility] Comment on above: Performed By: #### C JUNAID, 1987-08, CBCA, 4485-9, 4498-2, 81367-6 #### [facility] ([id number]) [address], [address] [place] [address] Bilirubin [Mass/Vol] 0.2 mg/dL Low 0.3-1.2 [facility] Comment on above: Performed By: #### C JUNAID, 1987-08, CBCA, 4485-9, 4498-2, 56125-1 #### [facility] ([id number]) [address], [address] [place] [address] Calcium [Mass/Vol] 8.7 mg/dL Normal 8.5-10.5 [facility] Comment on above: Performed By: #### Nataliia QUIROGA, 1986-08, CBCA, 4485-9, 4498-2, 21978-9 #### [facility] ([id number]) [address], [address] [place] [address] Chloride [Moles/Vol] 102 mmol/L Normal 98-109 [facility] Comment on above: Performed By: #### C JUNAID, 1987-08, CBCA, 4485-9, 4498-2, 48118-1 #### [facility] ([id number]) [address], [address] [place] [address] CO2 [Moles/Vol] 31 mmol/L Normal 22-32 [facility] Comment on above: Performed By: #### C JUNAID, 1987-08, CBCA, 4485-9, 4498-2, 93331-8 #### [facility] ([id number]) [address], [address] [place] [address] Creatinine [Mass/Vol] 1.56 mg/dL High 0.40-1.00 [facility] Comment on above: Result Comment: METH OD TRACEABLE TO IDMS STANDARD Performed By: #### C JUNAID, 1987-08, CBCA, 4485-9, 4498-2, 42083-8 #### [facility] ([id number]) [address], [address] [address] GFR/1.73 sq M.predicted among non-blacks MDRD (S/P/Bld) [Vol rate/Area] 45 mL/min/{1.73_m2} Low >59 [facility] Comment on above: Result Comment: Reported eGFR is based on the CKD-EPI 2020 equation that does not use a race coefficient. Performed By: #### C JUNAID, 1987-08, CBCA, 4485-9, 4498-2, 91460-5 #### [facility] ([id number]) [address], [facility] [address] [place] [address] Glucose [Mass/Vol] 112 mg/dL High 65-99 [facility] Comment on above: Performed By: #### Nataliia QUIROGA, 1986-08, CBCA, 4485-9, 4498-2, 76640-1 #### [facility] ([id number]) [address], [facility] [address] [place] [address] Potassium [Moles/Vol] 3.5 mmol/L Normal 3.5-5.0 [facility] Comment on above: Performed By: #### C JUNAID, 1987-08, CBCA, 4485-9, 4498-2, 82658-8 #### [facility] ([id number]) [address], [address] [place] [address] Protein [Mass/Vol] 6.3 g/dL Normal 6.0-8.0 [facility] Comment on above: Performed By: #### C JUNAID, 1987-08, CBCA, 4485-9, 4498-2, 72971-6 #### [facility] ([id number]) [address], [address] [place] [address] Sodium [Moles/Vol] 143 mmol/L Normal 134-146 [facility] Comment on above: Performed By: #### Nataliia QUIROGA, 1986-08, CBCA, 4485-9, 4498-2, 20189-7 #### [facility] ([id number]) [address], [address] [place] [address] Urea nitrogen [Mass/Vol] 25 mg/dL High 5-23 [facility] Comment on above: Performed By: #### Nataliia QUIROGA, 1986-08, CBCA, 4485-9, 4498-2, 90424-0 #### [facility] ([id number]) [address], [facility] [address] [place] [address] CRP [Mass/Vol]on 05-03-2023 C REACTIVE PROTEIN 0.1 mg/dL Normal 0.000-0.744 [facility] Comment on above: Performed By: #### Nataliia QUIROGA, 1986-08, CBCA, 4485-9, 4498-2, 87870-8 #### [facility] ([id number]) [address], [address] [place] [address] Complement C3 [Mass/Vol]on 0 05-03-2023 COMPLEMENT C3 124 mg/dL Normal 86-184 [facility] Comment on above: Performed By: #### Nataliia QUIROGA, 1986-08, CBCA, 4485-9, 4498-2, 31842-9 #### [facility] ([id number]) [address], [address] [place] [address] Complement C4 [Mass/Vol]on 0 05-03-2023 COMPLEMENT C4 21 mg/dL Normal 16-47 [facility] Comment on above: Performed By: #### C JUNAID, 1986-08, CBCA, 4485-9, 4498-2, 11575-5 #### [facility] ([id number]) [address], [address] [place] [address] ESR Photometric method (Bld) [Velocity]on 05-03-2023 ESR, ERYTHROCYTE SEDIMENTATION RATE 14 mm/h Normal 0-20 [facility] Comment on above: Performed By: #### C JUNAID, 1986-08, CBCA, 4485-9, 4498-2, 40384-6 #### [facility] ([id number]) [address], [address] [address] PROTEIN CREAT RATIOon 2023 RANDOM URINE PROTEIN 3040 mg/L High <120 [facility] Comment on above: Performed By: #### U PCR #### [facility] ([id number]) [address], [address] [address] U/PRO/JAVA PROGRAMMER RATIO CALC 1.59 High <0.2 [facility] Comment on above: Result Comment: Neph rotic Syndrome is associated with ratios >3.5 Performed By: #### U PCR #### [facility] ([id number]) [address], [address] [address] URINE CREATININE,RDM 190.94 mg/dL Normal Pr [facility] Comment on above: Performed By: #### U PCR #### [facility] ([id number]) [address], [address] [place] [address] URINALYSISon 05-03-2023 Bilirubin Ql (U) Negative Normal NEG [facility] Comment on above: Performed By: #### U PCR #### [facility] ([id number]) [address], [address] [place] [address] BLOOD/HGB Large Abnormal NEG [facility] Comment on above: Performed By: #### U PCR #### [facility] ([id number]) [address], [address] [place] [address] Color (U) YELLOW Normal YELLOW [facility] Comment on above: Performed By: #### U PCR #### [facility] ([id number]) [address], [address] [place] [address] Glucose Ql (U) Negative Normal NEG [facility] Comment on above: Performed By: #### U PCR #### [facility] ([id number]) [address] [place] [address] Ketones Ql (U) Negative Normal NEG [facility] Comment on above: Performed By: #### U PCR #### [facility] ([id number]) [address], [address] [place] [address] Leukocyte esterase Test strip Ql (U) Negative Normal NEG [facility] Comment on above: Performed By: #### U PCR #### [facility] ([id number]) [address], [address] [place] [address] MUCOUS PRESENT Abnormal NONE [facility] Comment on above: Performed By: #### U PCR #### [facility] ([id number]) [address], [address] [place] [address] Nitrite Ql (U) Negative Normal NEG [facility] Comment on above: Performed By: #### U PCR #### [facility] ([id number]) [address], [address] [place] [address] pH (U) 6.0 [pH] Normal 5.0-8.5 [facility] Comment on above: Performed By: #### U PCR #### [facility] ([id number]) [address], [address] [place] [address] Protein Ql (U) 200 mg/dL Abnormal NEG [facility] Comment on above: Performed By: #### U PCR #### [facility] ([id number]) [address], [address] [place] [address] R.B.CELLS 69 /hpf High 0-5 [facility] Comment on above: Performed By: #### U PCR #### [facility] ([id number]) [address] [place] [address] Specific gravity (U) [Rel density] 1.019 Normal 1.003-1.035 [facility] Comment on above: Performed By: #### U PCR #### [facility] ([id number]) [address] [place] [address] SQUAMOUS EPITHELIUM <1 Normal 0-5 [facility] Comment on above: Performed By: #### U PCR #### [facility] ([id number]) [address] [place] [address] TURBIDITY HAZY Abnormal CLEAR [facility] Comment on above: Performed By: #### U PCR #### [facility] ([id number]) [address] [place] [address] Urobilinogen (U) [Mass/Vol] mg/dL Normal <1.1 [facility] Comment on above: Performed By: #### U PCR #### [facility] ([id number]) [address] [place] [address] W.B.CELLS 0 /hpf Normal 0-5 [facility] Comment on above: Performed By: #### U PCR #### [facility] ([id number]) [address], [address] [place] [address] Lab Reportson 04-17-2023 Lab Reports [id number] TIFF Normal [facility] 29on 04-06-2023 29 Addended by: NO OVALLE on: 04/10/2023 12:12 PM Modules accepted: Orders Normal [facility] CHLAMYDIA TRACHOMATIS AND NE ISSERIA GONORRHEA, TMAon 04-06-2023 CHLAMYDIA TRACHOMATIS DNA PROBE (PRESENCE) IN UNSP SPEC Negative Normal Negative [facility] Comment on above: Result Comment: No C hlamydia trachomatis rRNA Detected. The Aptima Combo 2 Assay is a FDA approved target amplification nucleic acid probe test that utilizes target capture for the in vitro qualitative detection and differentiation of ribosomal RNA (rRNA) from Chlamydia trachomatis (CT) and/or Neisseria gonorrhoeae (GC) to aid the diagnosis of chlamydial and/or gonococcal urogenital disease using the [place] [facility]. The Aptima Combo 2 Assay involves target capture, target amplification by Machine Packaging Technician-Mediated Amplification (TMA), and the detection of the amplification products (amplicon) by the Hybridization Protection Assay (HPA). The internal process controls of the [place] [facility] monitor the target capture, amplification, and detection steps of the assay, this is not intended to control for sampling adequacy. Performed By: #### L [id number] ####[facility] ([place])[address] [place] [address] NEISSERIA GONORRHOEAE DNA PROBE (PRESENCE) IN UNSP SPEC Negative Normal Negative [facility] Comment on above: Result Comment: No N eisseria gonorrhoeae rRNA Detected. The Aptima Combo 2 Assay is a FDA approved target amplification nucleic acid probe test that utilizes target capture for the in vitro qualitative detection and differentiation of ribosomal RNA (rRNA) from Chlamydia trachomatis (CT) and/or Neisseria gonorrhoeae (GC) to aid the diagnosis of chlamydial and/or gonococcal urogenital disease using the [place] [facility]. The Aptima Combo 2 Assay involves target capture, target amplification by Machine Packaging Technician-Mediated Amplification (TMA), and the detection of the amplification products (amplicon) by the Hybridization Protection Assay (HPA). The internal process controls of the [place] [facility] monitor the target capture, amplification, and detection steps of the assay, this is not intended to control for sampling adequacy. Performed By: #### L [id number] ####[facility] ([facility])[address] [place] [address] FTA ABSon 04-06-2023 FTA-ABS Reactive Abnormal Nonreactive, 1+, 2+, 3+, 4+, Inconclusive [facility] Comment on above: Performed By: #### L [id number] ####[facility] ([facility])[address] [place] [address] HIV COMBO 4Gon 04-06-2023 HIV COMBO 4G Negative Normal Negative [facility] Comment on above: Performed By: #### L [id number] #### [facility] ([facility]) [address] [place] [address] Office Visiton 04-06-2023 Follow-up visit [id number] Blanca Rudolph 1990 F Date Provider Department Center 04/06/2023 ORIN VERNON [facility] Ena Heal No family history on file Level of Service:61177 MI OFFICE/OUTPATIENT ESTABLISHED MOD MDM 30-39 MIN Normal [facility] RPRon 04-06-2023 REAGIN AB PRESENCE IN SERUM BY RPR Reactive Abnormal Nonreactive [facility] Comment on above: Performed By: #### L [id number] #### [facility] ([facility]) [address] [place] [address] RPR QUANTITATIVEon RPR QUANT 1:8 High <1:1 [facility] Comment on above: Result Comment: The syphilis screen is a treponemal assay; patients with previously treated syphilis could be reactive on this assay, but nonreactive on the RPR Quant assay. Performed By: #### L [id number] #### [facility] ([facility]) [address] [place] [address] Orders Onlyon 03-19-2023 Orders Only [id number] Blanca Rudolph 1990 F Date Provider Department Center 03/19/2023 ORIN [facility]ERNON [facility] Ena Heal No family history on file Normal [facility] 36on 02-09-2023 36 Patient would like prescription mailed to him. Address in [facility] verified with patient. Normal [facility] Refillon 02-09-2023 Refill [id number] Blanca Rudolph 1990 F Date Provider Department Center 02/09/2023 JEFFERY AVITIA [facility] Enalesa Allison No family history on file Reason for Visit and Comments: Med Refill [[id number]] Normal [facility] CBC WITH AUTO DIFFERENTIALon 01-05-2023 Basophils (Bld) [#/Vol] 0.01 10*3/uL Normal 0.00-0.20 [facility] Comment on above: Performed By: #### L [id number] #### [facility] ([facility]) [address] [place] [address] Basophils/100 WBC (Bld) 0.1 % Normal 0.0-1.0 [facility] Comment on above: Performed By: #### L [id number] #### [facility] ([facility]) [address] [place] [address] Eosinophils (Bld) [#/Vol] 0.00 10*3/uL Normal 0.00-0.50 [facility] Comment on above: Performed By: #### L [id number] #### [facility] ([facility]) [address] [place] [address] Eosinophils/100 WBC (Bld) 0.0 % Normal 0.0-6.0 [facility] Comment on above: Performed By: #### L [id number] #### [facility] ([facility]) [address] [facility] [address] Erythrocyte distribution width (RBC) [Ratio] 14.1 % Normal 11.5-15.0 [facility] Comment on above: Performed By: #### L [id number] #### [facility] ([facility]) [address] [place] [address] ERYTHROCYTE MEAN CORPUSCULAR HEMOGLOBIN CONCENTRATION (G/DL) BY AUTOMATED 35.5 g/dL High 32.0-35.0 [facility] Comment on above: Performed By: #### L [id number] #### [facility] ([facility] [address] [place] [address] Hematocrit (Bld) [Volume fraction] 36.9 % Normal 36.0-48.0 [facility] Comment on above: Performed By: #### L [id number] #### [facility] ([facility]) [address] [place] [address] Hemoglobin (Bld) [Mass/Vol] 13.1 g/dL Normal 12.0-15.0 [facility] Comment on above: Performed By: #### L [id number] #### [facility] ([facility]) [address] [place] [address] Immature granulocytes (Bld) [#/Vol] 0.09 10*3/uL Normal 0.00-0.20 [facility] Comment on above: Performed By: #### L [id number] #### [facility] ([facility]) [address] [place] [address] Immature granulocytes/100 WBC (Bld) 0.9 % Normal 0.0-1.0 [facility] Comment on above: Performed By: #### L [id number] #### [facility] ([facility]) [address] [place] [address] Lymphocytes (Bld) [#/Vol] 0.40 10*3/uL Low 1.20-4.00 [facility] Comment on above: Performed By: #### L [id number] #### [facility] ([facility]) [address] [place] [address] Lymphocytes/100 WBC (Bld) 3.8 % Low 20.0-45.0 [facility] Comment on above: Performed By: #### L [id number] #### [facility] ([facility]) [address] [place] [address] MCH (RBC) [Entitic mass] 31.2 pg Normal 27.0-33.0 [facility] Comment on above: Performed By: #### L [id number] #### [facility] ([facility]) [address] [place] [address] MCV (RBC) [Entitic vol] 87.9 fL Normal 82.0-98.0 [facility] Comment on above: Performed By: #### L [id number] #### [facility] ([facility]) [address] [place] [address] Monocytes (Bld) [#/Vol] 0.17 10*3/uL Normal 0.10-1.00 [facility] Comment on above: Performed By: #### L [id number] #### [facility] ([facility]) [address] [place] [address] Monocytes/100 WBC (Bld) 1.6 % Low 5.0-12.0 [facility] Comment on above: Performed By: #### L [id number] #### [facility] ([facility]) [address] [place] [address] Neutrophils (Bld) [#/Vol] 9.73 10*3/uL High 1.60-7.60 [facility] Comment on above: Performed By: #### L [id number] #### [facility] ([facility]) [address] [place] [address] Neutrophils/100 WBC (Bld) 93.6 % High 40.0-72.0 [facility] Comment on above: Performed By: #### L [id number] #### [facility] ([facility]) [address] [place] [address] NRBC (PER 100 WBCS) BY AUTOMATED COUNT 0.0 % Normal 0 [facility] Comment on above: Performed By: #### L [id number] #### [facility] ([facility]) [address] [place] [address] PLATELETS (10*3/UL) IN BLOOD AUTOMATED COUNT 273 10*3/uL Normal 150-400 [facility] Comment on above: Performed By: #### L [id number] #### [facility] ([facility]) [address] [place] [address] RBC (Bld) [#/Vol] 4.20 10*6/uL Normal 3.80-5.00 [facility] Comment on above: Performed By: #### L [id number] #### [facility] ([facility]) [address] [place] [address] WBC (Bld) [#/Vol] 10.40 10*3/uL Normal 4.00-10.60 [facility] Comment on above: Performed By: #### L [id number] #### [facility] ([facility]) [address] [place] [address] COMPREHENSIVE METABOLIC PANE Gerardo 01-05-2023 Albumin [Mass/Vol] 2.8 g/dL Low 3.5-5.7 [facility] Comment on above: Performed By: #### L [id number] #### [facility] ([facility]) [address] [place] [address] ALP [Catalytic activity/Vol] 51 U/L Normal 34-104 [facility] Comment on above: Performed By: #### L [id number] #### [facility] ([facility]) [address] [place] [address] ALT [Catalytic activity/Vol] 17 U/L Normal 7-52 [facility] Comment on above: Performed By: #### L [id number] #### [facility] ([facility]) [address] [place] [address] Anion gap [Moles/Vol] 13 mmol/L Normal 7-20 [facility] Comment on above: Performed By: #### L [id number] #### [facility] ([facility]) [address] [place] [address] AST [Catalytic activity/Vol] 16 U/L Normal 13-39 [facility] Comment on above: Performed By: #### L [id number] #### [facility] ([facility]) [address] [place] [address] Bilirubin [Mass/Vol] 0.4 mg/dL Normal 0.3-1.0 [facility] Comment on above: Performed By: #### L [id number] #### [facility] ([facility]) [address] [place] [address] Calcium [Mass/Vol] 7.9 mg/dL Low 8.6-10.3 [facility] Comment on above: Performed By: #### L [id number] #### [facility] ([facility]) [address] [place] [address] Chloride [Moles/Vol] 99 mmol/L Normal 98-107 [facility] Comment on above: Performed By: #### L [id number] #### [facility] ([facility]) [address] [place] [address] CO2 [Moles/Vol] 30 mmol/L Normal 21-31 [facility] Comment on above: Performed By: #### L [id number] #### [facility] ([facility]) [address] [place] [address] Creatinine [Mass/Vol] 1.46 mg/dL High 0.60-1.20 [facility] Comment on above: Performed By: #### L [id number] #### [facility] ([facility]) [address] [place] [address] GLOMERULAR FILTRATION RATE ML/MIN/1.73 SQ M.PREDICTED 49.0 mL/min/1.73m*2 Low >60.0 [facility] Comment on above: Result Comment: The [facility]???s estimated glomerular filtration rate (eGFR) will no [...] group of individuals. Performed By: #### L [id number] #### [facility] ([facility]) [address] [place] [address] Glucose [Mass/Vol] 139 mg/dL High 70-100 [facility] Comment on above: Performed By: #### L [id number] #### [facility] ([facility]) [address] [place] [address] Potassium [Moles/Vol] 4.1 mmol/L Normal 3.5-5.1 [facility] Comment on above: Performed By: #### L [id number] #### [facility] ([facility]) [address] [place] [address] Protein [Mass/Vol] 4.9 g/dL Low 6.0-8.3 [facility] Comment on above: Performed By: #### L [id number] #### [facility] ([facility]) [address] [place] [address] Sodium [Moles/Vol] 138 mmol/L Normal 136-145 [facility] Comment on above: Performed By: #### L [id number] #### [facility] ([facility]) [address] [place] [address] Urea nitrogen [Mass/Vol] 35 mg/dL High 7-25 [facility] Comment on above: Performed By: #### L [id number] #### [facility] ([facility]) [address] [place] [address] UREA NITROGEN/CREATININE (MASS RATIO) IN SER/PLAS 24.0 Normal [facility] Comment on above: Performed By: #### L [id number] #### [facility] ([facility]) [address] [place] [address] HIV COMBO 4Gon 01-05-2023 HIV COMBO 4G Negative Normal Negative [facility] Comment on above: Performed By: #### L [id number] #### [facility] ([facility]) [address] [place] [address] Office Visiton 01-05-2023 Follow-up visit [id number] Blanca Rudolph 1990 F Date Provider Department Center 01/05/2023 [facility]ERRILL[facility]URAD[facility]ON ORIN [facility] Ena Heal No family history on file Level of Service:13574 MI OFFICE/OUTPATIENT ESTABLISHED MOD MDM 30-39 MIN Normal [facility] CBC WITH AUTO DIFFERENTIALon 12-15-2022 Basophils (Bld) [#/Vol] 0.02 10*3/uL Normal 0.00-0.20 [facility] Comment on above: Performed By: #### L [id number] #### [facility] ([facility]) [address] [place] [address] Basophils/100 WBC (Bld) 0.1 % Normal 0.0-1.0 [facility] Comment on above: Performed By: #### L [id number] #### [facility] ([facility]) [address] [place] [address] Eosinophils (Bld) [#/Vol] 0.00 10*3/uL Normal 0.00-0.50 [facility] Comment on above: Performed By: #### L [id number] #### [facility] ([facility]) [address] [place] [address] Eosinophils/100 WBC (Bld) 0.0 % Normal 0.0-6.0 [facility] Comment on above: Performed By: #### L [id number] #### [facility] ([facility]) [address] [place] [address] Erythrocyte distribution width (RBC) [Ratio] 12.7 % Normal 11.5-15.0 [facility] Comment on above: Performed By: #### L [id number] #### [facility] ([facility]) [address] [place] [address] ERYTHROCYTE MEAN CORPUSCULAR HEMOGLOBIN CONCENTRATION (G/DL) BY AUTOMATED 36.5 g/dL High 32.0-35.0 [facility] Comment on above: Performed By: #### L [id number] #### [facility] ([facility]) [address] [place] [address] Hematocrit (Bld) [Volume fraction] 33.7 % Low 36.0-48.0 [facility] Comment on above: Performed By: #### L [id number] #### [facility] ([facility]) [address] [place] [address] Hemoglobin (Bld) [Mass/Vol] 12.3 g/dL Normal 12.0-15.0 [facility] Comment on above: Performed By: #### L [id number] #### [facility] ([facility]) [address] [place] [address] Immature granulocytes (Bld) [#/Vol] 0.09 10*3/uL Normal 0.00-0.20 [facility] Comment on above: Performed By: #### L [id number] #### [facility] ([facility]) [address] [place] [address] Immature granulocytes/100 WBC (Bld) 0.6 % Normal 0.0-1.0 [facility] Comment on above: Performed By: #### L [id number] #### [facility] ([facility]) [address] [place] [address] Lymphocytes (Bld) [#/Vol] 0.44 10*3/uL Low 1.20-4.00 [facility] Comment on above: Performed By: #### L [id number] #### [facility] ([facility]) [address] [place] [address] Lymphocytes/100 WBC (Bld) 3.0 % Low 20.0-45.0 [facility] Comment on above: Performed By: #### L [id number] #### [facility] ([facility]) [address] [place] [address] MCH (RBC) [Entitic mass] 31.1 pg Normal 27.0-33.0 [facility] Comment on above: Performed By: #### L [id number] #### [facility] ([facility]) [address] [place] [address] MCV (RBC) [Entitic vol] 85.1 fL Normal 82.0-98.0 [facility] Comment on above: Performed By: #### L [id number] #### [facility] ([facility]) [address] [place] [address] Monocytes (Bld) [#/Vol] 0.25 10*3/uL Normal 0.10-1.00 [facility] Comment on above: Performed By: #### L [id number] #### [facility] ([facility]) [address] [place] [address] Monocytes/100 WBC (Bld) 1.7 % Low 5.0-12.0 [facility] Comment on above: Performed By: #### L [id number] #### [facility] ([facility]) [address] [place] [address] Neutrophils (Bld) [#/Vol] 13.63 10*3/uL High 1.60-7.60 [facility] Comment on above: Performed By: #### L [id number] #### [facility] ([facility]) [address] [place] [address] Neutrophils/100 WBC (Bld) 94.6 % High 40.0-72.0 [facility] Comment on above: Performed By: #### L [id number] #### [facility] ([facility]) [address] [place] [address] NRBC (PER 100 WBCS) BY AUTOMATED COUNT 0.0 % Normal 0 [facility] Comment on above: Performed By: #### L [id number] #### [facility] ([facility]) [address] [place] [address] PLATELETS (10*3/UL) IN BLOOD AUTOMATED COUNT 302 10*3/uL Normal 150-400 [facility] Comment on above: Performed By: #### L [id number] #### [facility] ([facility]) [address] [place] [address] RBC (Bld) [#/Vol] 3.96 10*6/uL Normal 3.80-5.00 [facility] Comment on above: Performed By: #### L [id number] #### [facility] ([facility]) [address] [place] [address] WBC (Bld) [#/Vol] 14.43 10*3/uL High 4.00-10.60 [facility] Comment on above: Performed By: #### L [id number] #### [facility] ([facility]) [address] [place] [address] CHLAMYDIA TRACHOMATIS AND NE ISSERIA GONORRHEA, TMAon 12-15-2022 CHLAMYDIA TRACHOMATIS DNA PROBE (PRESENCE) IN UNSP SPEC Negative Normal Negative [facility] Comment on above: Result Comment: No C hlamydia trachomatis rRNA Detected. The Aptima Combo 2 Assay is a FDA approved target amplification nucleic acid probe test that utilizes target capture for the in vitro qualitative detection and differentiation of ribosomal RNA (rRNA) from Chlamydia trachomatis (CT) and/or Neisseria gonorrhoeae (GC) to aid the diagnosis of chlamydial and/or gonococcal urogenital disease using the [place] [facility]. The Aptima Combo 2 Assay involves target capture, target amplification by Machine Packaging Technician-Mediated Amplification (TMA), and the detection of the amplification products (amplicon) by the Hybridization Protection Assay (HPA). The internal process controls of the [place] [facility] monitor the target capture, amplification, and detection steps of the assay, this is not intended to control for sampling adequacy. Performed By: #### L [id number] ####[facility] ([facility])[address] [place] [address] NEISSERIA GONORRHOEAE DNA PROBE (PRESENCE) IN UNSP SPEC Negative Normal Negative [facility] Comment on above: Result Comment: No N eisseria gonorrhoeae rRNA Detected. The Aptima Combo 2 Assay is a FDA approved target amplification nucleic acid probe test that utilizes target capture for the in vitro qualitative detection and differentiation of ribosomal RNA (rRNA) from Chlamydia trachomatis (CT) and/or Neisseria gonorrhoeae (GC) to aid the diagnosis of chlamydial and/or gonococcal urogenital disease using the [place] [facility]. The Aptima Combo 2 Assay involves target capture, target amplification by Machine Packaging Technician-Mediated Amplification (TMA), and the detection of the amplification products (amplicon) by the Hybridization Protection Assay (HPA). The internal process controls of the [place] [facility] monitor the target capture, amplification, and detection steps of the assay, this is not intended to control for sampling adequacy. Performed By: #### L [id number] ####[facility] ([facility] [place] [address] COMPREHENSIVE METABOLIC PANE Gerardo 12-15-2022 Albumin [Mass/Vol] 2.3 g/dL Low 3.5-5.7 [facility] Comment on above: Performed By: #### L [id number] ####[facility] ([facility])[address] [place] [address] ALP [Catalytic activity/Vol] 48 U/L Normal 34-104 [facility] Comment on above: Performed By: #### L [id number] ####[facility] ([facility])[address] [place] [address] ALT [Catalytic activity/Vol] 14 U/L Normal 7-52 [facility] Comment on above: Performed By: #### L [id number] ####[facility] ([facility])[address] [place] [address] Anion gap [Moles/Vol] 11 mmol/L Normal 7-20 [facility] Comment on above: Performed By: #### L [id number] ####[facility] ([facility])[address] [place] [address] AST [Catalytic activity/Vol] 14 U/L Normal 13-39 [facility] Comment on above: Performed By: #### L [id number] ####[facility] (BEAKER)[address] [place] [address] Bilirubin [Mass/Vol] 0.4 mg/dL Normal 0.3-1.0 [facility] Comment on above: Performed By: #### L [id number] ####[facility] ([facility])[address] [place] [address] Calcium [Mass/Vol] 7.8 mg/dL Low 8.6-10.3 [facility] Comment on above: Performed By: #### L [id number] ####[facility] ([facility])[address] [place] [place] [address] Chloride [Moles/Vol] 93 mmol/L Low 98-107 [facility] Comment on above: Performed By: #### L [id number] ####[facility] ([facility])[address] [place] [address] CO2 [Moles/Vol] 30 mmol/L Normal 21-31 [facility] Comment on above: Performed By: #### L [id number] ####[facility] ([facility])[address] [place] [address] Creatinine [Mass/Vol] 1.36 mg/dL High 0.60-1.20 [facility] Comment on above: Performed By: #### L [id number] ####[facility] ([facility])[address] [place] [address] GLOMERULAR FILTRATION RATE ML/MIN/1.73 SQ M.PREDICTED 53.4 mL/min/1.73m*2 Low >60.0 [facility] Comment on above: Result Comment: The [facility]???s estimated glomerular filtration rate (eGFR) will no [...] of individuals. Performed By: #### L [id number] ####[facility] ([facility])[address] [place] [address] Glucose [Mass/Vol] 135 mg/dL High 70-100 [facility] Comment on above: Performed By: #### L [id number] ####[facility] ([facility]ER)[address] [place] [address] Potassium [Moles/Vol] 4.0 mmol/L Normal 3.5-5.1 [facility] Comment on above: Performed By: #### L [id number] ####[facility] ([facility])[address] [place] [address] Protein [Mass/Vol] 4.8 g/dL Low 6.0-8.3 [facility] Comment on above: Performed By: #### L [id number] ####[facility] ([facility])[address] [place] [address] Sodium [Moles/Vol] 130 mmol/L Low 136-145 [facility] Comment on above: Performed By: #### L [id number] ####[facility] [place] [address] Urea nitrogen [Mass/Vol] 29 mg/dL High 7-25 [facility] Comment on above: Performed By: #### L [id number] ####[facility] ([facility] [place] [address] UREA NITROGEN/CREATININE (MASS RATIO) IN SER/PLAS 21.3 Normal [facility] Comment on above: Performed By: #### L [id number] ####[facility] [place] [address] Consulton 12-15-2022 Consult [id number] Blanca Rudolph 1990 F Date Provider Department Center 12/15/2022 [facility]IN [facility] Ena Heal No family history on file Level of Service:42735 MI OFFICE/OUTPATIENT NEW MODERATE MDM 45-59 MINUTES Normal [facility] HEPATITIS A ANTIBODY, TOTALo n 12-15-2022 HEPATITIS A VIRUS AB PRESENCE IN SER BY IMMUNOASSAY Negative Normal Negative [facility] Comment on above: Result Comment: Perf ormed By: [facility] [address] [place] [id number] Mining Manager: Ari Seay MD, PhD CLIA Number: [id number] Performed By: #### L [id number] #### [facility] ([facility]) [address] [place] [address] HEPATITIS B CORE ANTIBODY, T OTALon 12-15-2022 HEPATITIS B VIRUS CORE AB (PRESENCE) IN SER/PLAS BY IMM Non-Reactive Normal Nonreactive [facility] Comment on above: Performed By: #### L [id number] #### [facility] ([facility]) [address] [place] [address] HEPATITIS B SURFACE ANTIBODY QUANTon 12-15-2022 HEPATITIS B VIRUS SURFACE AB (MIU/ML) IN SERUM 3.53 mIU/mL Normal [facility] Comment on above: Result Comment: INTE RPRETATION: NONREACTIVE<8.00 mIU/mL INDETERMINATE8.00 - 12.00 mIU/mL REACTIVE>12 mIU/mL Performed By: #### L [id number] #### [facility] ([facility]) [address] [place] [address] HEPATITIS B SURFACE ANTIGENo n 12-15-2022 HEPATITIS B VIRUS SURFACE AG PRESENCE IN SERUM Non-Reactive Normal Nonreactive [facility] Comment on above: Performed By: #### L [id number] ####[facility] ([facility])[address] [place] [address] HEPATITIS C ANTIBODYon 12-15 HEPATITIS C VIRUS AB PRESENCE IN SERUM Non-Reactive Normal Nonreactive [facility] Comment on above: Performed By: #### L [id number] #### [facility] ([facility]) [address] [place] [address] HIV COMBO 4Gon 12-15-2022 HIV COMBO 4G Negative Normal Negative [facility] Comment on above: Performed By: #### L [id number] ####[facility] ([facility])[address] [place] [address] URINALYSISon 12-15-2022 BILIRUBIN, TOTAL PRESENCE IN URINE Negative Normal Negative [facility] Comment on above: Performed By: #### L [id number] #### [facility] ([facility]) [address] [place] [address] Clarity (U) Clear Normal Clear [facility] Comment on above: Performed By: #### L [id number] #### [facility] ([facility]) [address] [place] [address] Color (U) Yellow Normal Yellow [facility] Comment on above: Performed By: #### L [id number] #### [facility] ([facility]) [address] [place] [address] Glucose (U) [Mass/Vol] Negative Normal Negative [facility] Comment on above: Performed By: #### L [id number] #### [facility] ([facility]) [address] [place] [address] HEMOGLOBIN PRESENCE IN URINE Moderate Abnormal Negative [facility] Comment on above: Performed By: #### L [id number] #### [facility] ([facility]) [address] [place] [address] Ketones Ql (U) Negative Normal Negative [facility] Comment on above: Performed By: #### L [id number] #### [facility] ([facility]) [address] [place] [address] LEUKOCYTE ESTERASE PRESENCE IN URINE BY TEST STRIP Negative Normal Negative [facility] Comment on above: Performed By: #### L [id number] #### [facility] ([facility]) [address] [place] [address] NITRITE PRESENCE IN URINE Negative Normal Negative [facility] Comment on above: Performed By: #### L [id number] #### [facility] ([facility]) [address] [place] [address] pH (U) 6.0 [pH] Normal 5.0-8.0 [facility] Comment on above: Performed By: #### L [id number] #### [facility] [address] [place] [address] Protein (U) [Mass/Vol] mg/dL Abnormal Negative [facility] Comment on above: Performed By: #### L [id number] #### [facility] ([facility]ER) [address] [place] [address] Specific gravity (U) [Rel density] 1.004 Low 1.015-1.020 [facility] Comment on above: Performed By: #### L [id number] #### [facility] ([facility]ER) [address] [place] [address] URINALYSIS MICROSCOPICon CASTS IN URINE Normal [facility] Comment on above: Performed By: #### L [id number] #### [facility] ([facility]ER) [address] [place] [address] CRYSTALS IN URINE Normal [facility] Comment on above: Performed By: #### L [id number] #### [facility] ([facility]ER) [address] [place] [address] RBC (#/HPF) IN URINE SEDIMENT 11-20 Abnormal None Seen [facility] Comment on above: Performed By: #### L [id number] #### [facility] ([facility]) [address] [place] [address] SQUAMOUS EPITHELIAL CELLS (#/HPF) IN URINE SEDIMENT Few Abnormal None Seen, Occasional [facility] Comment on above: Performed By: #### L [id number] #### [facility] ([facility]) [address] [place] [address] WBC (LEUKOCYTE) (#/HPF) IN URINE SEDIMENT 0-2 Abnormal None Seen [facility] Comment on above: Performed By: #### L [id number] #### [facility] ([facility]ER) [address] [place] [address] Documentationon 12-05-2022 Documentation [id number] Blanca Rudolph 1990 F Date Provider Department Center 12/05/2022 [facility] Ena Heal No family history on file Reason for Visit and Comments: Lupkynis [facility]: [facility] [Other] - RX from [facility] Inpatient Normal [facility] Orders Onlyon 12-04-2022 Orders Only [id number] Blanca Rudolphe 1990 F Date Provider Department Center 12/04/2022 [facility] No family history on file Normal [facility] Transfer Inon 09-07-2022 Transfer In [id number] 0CD:[id number] Normal [facility] Ambulatory Visit Summaryon 0 09-05-2022 Ambulatory Visit Summary NAEEM RUDOLPHSSA Toshia :1990 Visit Date:09/05/2022 Ambulatory Visit Instructions Your Diagnosis Frequent UTI Tests Performed Urnls Dip Stick Auto w/o Microscopy POC 46947 Your Care Team Attending Physician - PAULINA JOY, CYNTHIA Haywood Primary Care Physician - BILLY ZELAYA PA-C Referring Physician - NATHALIE OJY, BILLY Jenkins This Is Your Medications List dicyclomine (Bentyl [...] Urnls Dip Stick Auto w/o Microscopy POC 54396 (09/05/2022) Bilirubin Urine Dipstick - Negative Blood Urine Dipstick - Trace-intact Glucose Urine Dipstick - Negative Ketones Urine Dipstick - Negative Leukocytes Urine Dipstick - Negative Nitrite Urine Dipstick - Negative Protein Urine Dipstick - Negative Specific [place] Urine Dipstick - 1.020 Urine Appearance Urine [...] longer receiving treatment for. Adult ADHD Normal [facility] Patient Educationon 09-06-19 Patient Education Obstetrics and [...] this condition includes: ? Antibiotic medicine. ? Xmjn-dxw-xissfbw medicines to treat discomfort. ? Drinking enough [...] these instructions at home: Medicines ? Take rbgt-gyp-dfkijdu and prescription medicines only as told by [...] Document Revie (more content not included)... Normal [facility] Coding Summary.on 08-16-2022 Coding Summary. CD:[id number] Ww +PGhlYWQ+DO0EMMVuN50hm FVoaY6xJ8HRVHtHXbnbLPH ONVkTTlHbnvXbSZ2olBWhG XJu IC8+UG4sRLXySwlhbMVhi3 H6gZZ5T40dma0zKLxajIP4 HUQsOnOzvoydo0pepNe8NT cuNmluOyBt BTZbfS61NJC9mI89Cj97hZ JrwPIsi9iqlLd7WdWxNFIn MPD1bSbwYJcka6EbIEHyY1 4ceTQdp2T8 RVGkiNqywYIwJwZrdEJ6fY 5gUTgabtfua6dyiyblIgt1 jv79xNEjs0Z2fEL7U0Bcud S1ZYOoaTLg NupvnRUKgM0mgcfbg1yohm aaMsOkAHFsPFt4NNh8MGLq jZxuVbYlUA11CJO3YLKaeg EjE2LiOKDd lCxjQyW4e5I1Tp5EX0BPJh ycQ4OHSVNJOFqirLE+PC90 kf32O1MoWezsRfi2WMVjDD Y5jKE3dG7g HSFlQEhys1O5jMZ8X6Xjdi Jfda4zh7aoBAZoYMvaT96g rJRrs5S2BAIchIH7CTMsvZ vuBwHuoD54 Oyc+VUBfpYcle7VwQqtgg8 fif8legXj0UmalOQQekpPy tRecKJH6b4FtPs8eVNLlqC Z4aSR0fR0h HgPsOdK3LUklA294MmQhsZ XbBmraA77hT8WdlCQ+PHRy Vhb1JOUeuYciUR2vF8RiYB RpbmctbGVm vRotMN0jBWWszkvuEDTmsY 1iBQDfT8d2XcOpFfT3RQvu F1HwXGAmxowcUl98lD7sTm SiJqM2OXlv J5BlulL5FVBolTJxWLjuXK T1B19vd7K5EYPtLQIzFFJ6 oZI6lH4wwSufdvcvlELorM sgdmVydGlj QJluXDhkD673ASQmiPuzVy NvZGluZyBEYXRlOiAgMDQv MTkvMjAyMzwvdGQ+PHRkIH E0iEsmOSFy gZRmAKhwBw5jtKicrQwaMS 5zJVSjbliiNAWxbX0tFKEq bXNqpYsqDD3wMOXeniesp3 88EdFzIKT8 SJYzkOVdK2DvjO5pTiGmEM GlSXKeX3PclKYaANqtP431 QEigEoN6LNPspwAeJ2HnXN FsaWduOiB0 j9N6Dt8Vt6DjbjvfG8OckG PgBaAvQcbzNSx9J5HiLwge dHI+DJ96SZKaWQ04MRy1RY C1eGlxDSea POLsC5HiiX8fQmDeQBQfMW RkOyc+PHRhYmxlIHdpZHRo IUdgMSGqQnUzoIyyGD3jQu 9yZGVyLWNv xGiagYTaVpRrl1nmVOPgNM llVX9weAkjT4WhxZD9YRAp a4t1Zw90Q46oY5VgoMP+PG ZkxCR3fCE4 sP4vTtRmZyT3LJrxP315Ba OreWMcIhuyt9pjm6clrOb9 KmN4LUZzveAhaEtnEEF8y0 AvWq40T24l IHdpZHRoPSIxNSUiIHZhbG qdmt5bbO6zDi3+PGNvbCB3 gKG5jT8jRbTiXsF5CHjcY8 49InRvcCIv Ucdvd5tfi1kcdIs4GiRrVZ GscrGgfIylADW4v0ChSy91 K9WadEhjp3RjZtl1td99cH Qxk2L9pLE3 T4NoOFLcsvpawPZjsYqxDQ 3uZORmaoehTTYryZ3yEPFp E3a6QmDeYmU1CHbxT9Oypq V2QXNluONn SLVrzAXMpU5mefark2bhyb nrWxZbBROvKOn3CXi5KWEj iKagEzDwVIP8DfU3ZWP7vG VszJ6ojLsd iupuuY0xRpp+VRV7zOTkkX KOHK2rEommqMU+PHRkIHN0 kMzjGTztCKYnaJ8dMYZjM8 b8JyWoTdS2 SEaeK9VttwG9KHCufMMtRQ YliEWUkP4ovedqb5wodgvj QvXmGRQvSOh6OVg8HPSdvR duOiBsZWZ0 FbF5FLZ2dTUiuL8leWbdjn pztH4pEhd+QmlydGggRGF0 XLy1Y5AzRwi5TMTomFgcAE 0ncGFkZGlu Lj4dhLcdtHnmRH0pOPAyuy rrn202KdHjb0icOYBxiWKh RXfpETM4K41ey8P6ZUYwGK ZwJPX6rVF4 gK9veSqkgejggDQxzFjfjo DpoEueIRmmLMwcJ496CRCy mTonBjYgOLf2H3IuPhw8CO VxhNzdNF3i kCJtCSqtHt1wxHhmpBjtHY 7tCLWcjoglf501MfDri3cj OLBvzLMoSJcmAAQ9X60jp3 M7KDHtPOPy PFD0fGA2jV8xcJrvqlowgJ VmdDsgdmVydGljYWwtYWxp D360EKOkvEasToWrkDp2Z9 OdZen7QDBo ePccBL0txBRpTLpfTc5mlZ jzgOwkYS6sUBImfutek305 RgYzl6rwBEUheMLfNFxxJS E1X30ag8P9 RXPbKJRqQKI8tVD7wD4aoF lnbjogbGVmdDsgdmVydGlj NHnvIJyfV692BVMvuQjyPx BhdGllbnQg GAwjOLt4P2QaBjpwtEV+PC 80DDDfKY79zHLjbACoy4dg gLi8DpRyWVAlVXH3lKjbUM zsy5OpSYAr I73afOGuc1H3QLAwmLbjuG JvGyEzwXV1xT7gZCpivmbr s6ddgkabHahyx9ehkf33oS 78M53lCHrq ZHRoPSIzMCUiIHZhbGlnbj 6oyN2nUf3+RAXmoRU9wWN9 aU4aAOEvUbT2MExyY474Jb RvcCIvPjxj s4ohz4gbuAq4VvR5YVCcba FtnDvtZDO9h0QwNc58K39s IHdpZHRoPSIyMCUiIHZhbG ddtp4bdQ5m Ii8+MQPnrXM1kZT6rE9gFm JjQvW5KYkgQ564OjIvsVIo WfasU69zV3WpsWE+PHRyPj x1WLFbzSxf CT6tqZNrXVfeVv2nCNI8Xb DpZuYrOPgwD1WoPTFumfab gmpheKL6FKRvVYMquN88Wx 9udDogMTBw zGUNqI3xmrzis9gngiumHn ZbMZSzWGf4IYm8QFFloOej YkVwXNV3GfV4LVQ3cAMdpY 1hbGlnbjog pU5nE1UiNUZgqfdjPj23zW 8lTlIgWtE4CJkmMzx+R0FS E7dTHYFGGFHNE2YXUK33V5 LwTzm1WXNs xYxyZR0yxQCfISstFg6yaE otcRglDG8wZXNlsvbyPTAk jT6qNLHtiLVzmFyhXI5wCB Iddgrar940 OpWjBVY0QHPdeKWlY3HxiE 6wIkArVRQcYXXhO7VpdKYc RTsxR264NEwwWtS1IMXyra VdI9PxPDFw bSrhVlY8f1A7Vu9lQc7pLU 6bPXvaBB69RO15qBCps1B5 aYR0G4FaXFVpfcjlxdwrtI D2UQBqHHYx yC44gQCaJPitHs5kz0E1w3 12EWJwABKdrA74Mc6foRkw GKIcxWEXlA9infdbd2htdf ogIzAwMDAw DEc8QFg3BKZbmAiqPfVlYY D0UsG6ZVX8jWPrsQ3vnToc gyzdhE9zNgn+MzAgWWVhcn V7J4OcEyp7 RPAnkWnkYS5pbEWdJGhdSo 7mcWfvhIjoWB2cDIEhqwob JDZykU4xUZEhqCCxrWekUU 4wNTBpbjtm j312RvVtYAR3ZHCgtSMyD5 ClxM5xBlPbJPSzUNQkF7Ic fKRcVHxyI793TIeiCgG7LB IlcdYfL5Cn LAUenAkdMbL2h4X8Ii5SQJ 6luOP3B8JjYua5QENkfNpv GY0hyAEtKCwhLf3xdYesoH uvTZ2nXNLy qemtIKOoaN6sKPAxhMLjqS frTV4aTDQcnjyno894EgRx BCZ3WMNqyANpG8QkrX4zSa AjMDAwMDAw W1PzoDPxHUilW955IEotUx B7HVOmewSqJ2PgDKKleTep WgT5f3Q7Qi4GjDTgFGHfQO 82AH69UB99 Q8KwJnggwPOpwNP+PHRhYm xlIHdpZHRoPScxMDAlJyBz sFkuTA7rIj2bBGCvOPWirG xhcHNlOiBj y7nuYSGlQAdzSJ5gqQojZ5 MuxER9STJio9c2Hb32J47q G6AcxVJ+VRFraWX3nST2hQ 9qJdYsRcW9 IYjlX519HcHesDSlEnjyk2 mvt0rezCx7XvXvPYCbuvXd lSbeDUA4s5NiLm44O33xQX dpZHRoPSIy OJZxQHWssGjuwr5azA4kHs 8+GVJlpRT8eCG4fK0jZpMr XlL3OBnpB672XeUwiBPuWe yhP45xF6Gt dXA+CRTjSsp4GUDqlTbzPW 0azSByAIahMw5mBJM3WrWb QgIpWKqjV8UaCTIwbmpric oxfPU7ITLl EEIwpT39Ew9xnPcnSx6oJU QdGHZ6JLNpsYEcJ2FdmK5z YkAiNVEmXBHgI3XecOWlJR bkJ808OUet JpL4RWXtdnZoU3WyZKAsaL nhRpC3z8M3Mj2YtDsteTTv VH4uPcTpMKg4H0DdKjl3HH EtyHbxRF9q bSQpCFmjLe1poHeokSemHR 7xFNHsydejr999OfIye9au ZRWvuOWpLPevBGH6L17ww5 E3QLAfSDVf JUJ0gXJ9qT8epCvixlrajZ VmdDsgdmVydGljYWwtYWxp K725VAYslIcrTyPIDoh4G9 GaKah4HARd nOnaQB8kwBCnYXzfCh5rcP rlwJobKU2lUODlpnhdr440 IgHso9qcFVXyfIWyEUycKM A1T41er9Q1 ECLdWMOlYZU4tRD6gO2hgX lnbjogbGVmdDsgdmVydGlj IQdeJRulN062NIZapOqgDo 4JHfk8I4Ds Rrs3DNJknBaeYK4esGYzCV guAj3puDtjyWepSS4pMIKd bwvqu850JgWqn6csQXQolJ QgVGltZXM7 U98fa2T9IZBrAYRiGDE7cM J0mC4kmBybmotzhQWiwWyx buWcoXlhLCdoOLelR816PT RvcDsnPlBh eWVyOjwvdGQ+XO60vv50K7 GlItjdBal8FXIkLJN0mZE2 fJ9bIGUqMMczw4C5nGG1B1 NunuXelk2r q5juVXBe (more content not included)... 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 Normal [facility] BMPon 08-10-2022 Anion gap [Moles/Vol] 11 mmol/L Normal 6-16 [facility] Comment on above: Performed By: #### 2 [id number], [id number], [id number], [id number] ####[facility] [address] [place] [address] Calcium [Mass/Vol] 8.3 mg/dL Low 8.9-11.1 [facility] Comment on above: Performed By: #### 2 [id number], [id number], [id number], [id number] ####[facility] [address] [place] [address] Chloride [Moles/Vol] 104 mmol/L Normal 101-111 [facility] Comment on above: Performed By: #### 2 [id number], [id number], [id number], [id number] ####[facility] [address] [address] CO2 [Moles/Vol] 27 mmol/L Normal 21-31 [facility] Comment on above: Performed By: #### 2 439489, [id number], [id number], [id number] ####[facility] [address] [place] [address] Creatinine [Mass/Vol] 0.7 mg/dL Normal 0.5-1.3 [facility] Comment on above: Performed By: #### 2 663927, [id number], 7200958, [id number] ####[facility] [address] [place] [address] Glucose [Mass/Vol] 95 mg/dL Normal 55-199 [facility] Comment on above: Result Comment: If t his glucose result represents a fasting glucose, interpretation should refer to the following reference range: 55-99 mg/dL Performed By: #### 2 385415, 8515220, 7949047, [id number] ####[facility] [address] [facility] [place] [address] Potassium [Moles/Vol] 3.6 mmol/L Normal 3.5-5.3 [facility] Comment on above: Performed By: #### 2 252410, 9330094, [id number], [id number] ####[facility] [address] [place] [address] Sodium [Moles/Vol] 138 mmol/L Normal 135-145 [facility] Comment on above: Performed By: #### 2 777578, [id number], 1934932, [id number] ####[facility] [address] [place] [address] Urea nitrogen [Mass/Vol] 12 mg/dL Normal 5-21 [facility] Comment on above: Performed By: #### 2 085463, 9101659, 6366356, [id number] ####[facility] [address] [place] [address] Urea nitrogen/Creatinine [Mass ratio] 17 No Units Normal 10-20 [facility] Comment on above: Performed By: #### 2 436157, 9084723, 5492650, [id number] ####[facility] [address] [place] [address] CHEMISTRYOrdered By: SYSTEM SYSTEM on 08-10-2022 Anion gap [Moles/Vol] 11 mmol/L Normal 6 - 16 mEq/L [facility]isol Calcium [Mass/Vol] 8.3 mg/dL Low [...] MDRD (S/P/Bld) [Vol rate/Area] mL/min/1.73 m2 Normal >=59mL/min/1.7 3 m2 [facility] Chem S GFR/1.73 sq M.predicted among non-blacks MDRD (S/P/Bld) [Vol rate/Area] mL/min/1.73 m2 Normal >=59mL/min/1.7 3 m2 [facility] Chem S Glucose [Mass/Vol] 95 mg/dL Normal 55 - 199 mg/dL [facility] Remisol Magnesium [Mass/Vol] 1.8 mg/dL Normal 1.3 - 2 .4 mg/dL [facility] Potassium [Moles/Vol] 3.6 mmol/L Normal 3.5 - 5.3 mmol/L [facility] Sodium [Moles/Vol] 138 mmol/L Normal 135 - 145 mmol/L [facility] Urea nitrogen [Mass/Vol] 12 mg/dL Normal 5 - 21 mg/dL [facility] Urea nitrogen/Creatinine [Mass ratio] 17 mg/mg Normal 10 - 20 [facility] Remisol Consent for Treatmenton 07-29 Consent for Treatment [id number] 0CD:127 Normal [facility] Gastroenterology Office/Clin ic Noteon 08-10-2022 Gastroenterology Office/Clinic [...] well nourished, in no acute distress Head: Normocephalic/atraumat ic Lungs: Normal respiratory effort and clear to [...] day(s), # 90 cap(s), Refills(s) 1, Pharmacy: [facility] #[id number], 175, cm, 08/10/22 12:49:00 EDT, Height/Length Dosing, [...] and hyperpl (more content not included)... Normal [facility] Comment on above: Result Comment: Elec tronically Signed By: Katrin Resendiz CNP\.br\Date and Time Signed: 08/10/22 13:03 EDT Magnesiumon 08-10-2022 Magnesium [Mass/Vol] 1.8 mg/dL Normal 1.3-2.4 [facility] Comment on above: Performed By: #### 2 [id number], [id number] ####[facility] [address] [place] [address] Patient Educationon 08-11-19 Patient Education Gastroenterology Gastroesophageal [...] vinegar, hot sauces, and barbecue sauce. ? Andrews fruit juices and citrus fruits, such as oranges, shirley, and limes. ? Tomato-based foods, such as red sauce, chili, salsa, and pizza with red sauce. ? Fried and fatty foods, such as donuts, spanish fries, potato chips, and high-fat dressings. ? [...] General instruct (more content not included)... Normal [facility] Vit B12on 08-10-2022 Cobalamin (Vitamin B12) [Mass/Vol] 279 pg/mL Normal 50-1500 [facility] Comment on above: Performed By: #### 2 [id number], [id number], [id number] ####[facility] [id number] [address] eGFRon 08-10-2022 GFR/1.73 sq M.predicted among blacks MDRD (S/P/Bld) [Vol rate/Area] mL/min/{1.73_m2} Normal >=59 [facility] Comment on above: Order Comment: Order added by Discern Expert. Result Comment: eGFR is race adjusted. AA=. Performed By: #### 2 [id number], [id number], [id number], [id number] ####[facility] [address] [place] [address] GFR/1.73 sq M.predicted among non-blacks MDRD (S/P/Bld) [Vol rate/Area] mL/min/{1.73_m2} Normal >=59 [facility] Comment on above: Order Comment: Order added by Discern Expert. 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 Kidney failure is indicated at less than 15 mL/min/1.73m2. Performed By: #### 2 [id number], [id number], [id number], [id number] ####[facility] [address] [place] [address] Progress Note-Physicianon Progress Note-Physician Patient: BLANCA RUDOLPH Age: 31 years Sex: Female : 1990 Associated Diagnoses: None Author: Suresh XIONG, Brett S. Postoperative Information Postoperative disposition: Postoperative disposition: To [...] Surgery Unit, and To home ). Normal [facility] Comment on above: Result Comment: Elec tronically Signed By: Suresh XIONG, Brett Tripathi\.br\Date and Time Signed: 07/20/22 13:21 EDT Coding Summary.on 07-18-2022 Coding Summary. [id number] Gh 0bWw+PGhlYWQ+VC2CNYQjC 52lnNIfeK6sQ1ONHAiTDab qXXLOFQzMDhNkguChMG0wv XNjZXJu IC8+OA8sLFVpTodsfLPqb2 C5tJM4G24xtk2qEExmxFM4 JCWiMgUwxqfdk9obwIj1AY cuNmluOyBt EFDtpP03CLG5mN23Np92bY MgbXMxg3fjfKw2DvGqKXUm QML7iUknVGktj1HsPXJlJ5 0ptNTuu2K6 CZOraHretOYaIsOvpSW1yT 2rUXjcktmkx8qfenkiNrz5 gp47uAMnp8K7bON0L7Tasn R2LUDyvDLu MfxdaGQYqW8irpkgu1eqez niEbZuTSLpCRq9PDt6FFWp lJtsPoPuPB29ABZ7BUSuvl VsX7IoQZEm fOzcPmL2n6Q2Na0GM0JPCx jbB5YBNRIKGXknrLQ+PC90 ar56H3UsTcuqGln2WNCdWJ A4vZH1mZ4l NDBtCRwvj2X1dWV4K6Fekh Lqri2gb0tzTFMnSYswP88m vFAxv3G3TYLxqFH8ITVikK cxZqTrrM03 Oyc+RIMtsPnqn4WkPzoow3 kkp1gmuTi3ZnasNHQmmgCc mSmgCBH9c2XxGg6pWACvpA N2dWU8rH2g WiNbFpY9REkmM819YbKzwC EeVhzlG04qY1VqjAY+PHRy Psn2ULTnhGdyZO3yL0MjVU RpbmctbGVm vYljFC0tOAOqvsyyYQQuvM 7bLECyA4y0FmFvGlR6JWwy B9KfNQLzfgdpJo24rP7yAt ZpFeM7TZop A2RvqhK4CPRwvYEcNGjwWR D1A95bw2B1EKGfFPHdMGJ9 iIZ4hT1tqYoasuomzBEglR sgdmVydGlj CRqbTBfmO752BSQqmNgwCx NvZGluZyBEYXRlOiAgMDMv MjEvMjAyMzwvdGQ+PHRkIH G7oGjnIOFp aPPmAYkdBh0llHczbVxeOB 1dZDUwvfjxLELvaH6iLCRv gVTuxQtlRX1bRWTcpvogq5 19YqUxUDG4 ECAgoVNqO6ClvJ1mSyCeGD FlXSSpM3GqrBAvEBmkO211 FMwmKqD6EWAxzeUrI8LqJL FsaWduOiB0 m9X8Fb8Tt2MfgzboU2YbbV SmDeSnZceaEBn4W2FzCjvl dHI+QX77WWTdWR97ROe6MO K0nUtnLCua EISfX6DijT4aPpXuTFDwAN RkOyc+PHRhYmxlIHdpZHRo NQrgZYZnEdHxmCneWG2wYz 9yZGVyLWNv qGtzqPUwQfYws3ywJNAgHF ulJR0haFrgI1PjcSL1AZGy q8s4Rc78L28mX6IyoWF+PG TjqZE9mTU6 lQ5oIpDnUbN4YBvwB448Py GqzDWoCvtby7teh7tnkTw2 MlD0EZThsdIrdZpgPCN3m8 XtKx08M81c IHdpZHRoPSIxNSUiIHZhbG mfzg0vyM8vVw9+PGNvbCB3 uLL8kP0aOjJxVbL5OLsxH5 49InRvcCIv Logxz1zln2hlaFl8XjWwQE XhvzNnbIxaBFE8t7JtGm34 K3SzwHtnv0KjTgv5qh72aD Obh1R5rUR1 S6BmOJFpcwmxfUUxsEfcCB 7pBFXpojnmKUUbiJ5kOOEu T7s8KfAeJrK2MYjiK2Rsng K1TANjxUZl AKVjvWQIfD0oeiwbu1zydk uzWfZbGUNdYSe2DEa2PSBf hYrpOzLnRWE5RsT6MMV4gG GpoC6hbTtu gpwvmL1pTld+OPZ1pNUixD FFVA3jRoopfMN+PHRkIHN0 sDjfGLpuGTAzwU1mOJHxW0 f9UjRkYpF6 AGqfS2ZnhnG0AXPyyXZeSM DuoPUSnC4ardlcf8ixbpgv NaJdQITvKKb7NDh4VYFobK duOiBsZWZ0 OqK0PQN7lHWscB4paLoifr ywaY2dJlb+QmlydGggRGF0 MGb4X4LcFju1CEAqpBitBU 0ncGFkZGlu Ul3otNdvfDrqDO8hUYIjas yod215FyEmi2gjSXPrlYVj WWaxOLQ7R04st8S6WLOrPD DrBQS1iAA4 yA5kbJenytlfjYUssFgaon JykTscAFfqNDbaB235UGLd jNdaLjDpESd9F9BfCho2JT ZjbFpeQB1d jAItNDwxXn7grMtvoIukHS 0tKTAlhgjzp296ZgYfn7tm KCKxrNRiNHhjEVW6O89vr6 M5HFGzCJKt KLD8bVZ9bP6cdNvinyoolE VmdDsgdmVydGljYWwtYWxp Y556TCIzcJpkZkXdxFw9E0 UvYtr2GINg rGlqUR1ciPTpEUsuTn3jbA auxDhjRL3fGGImwcqrk610 WbQxt5gnZLQoyNQgENpqFA T2D90de8W4 YICtISJcDNP3vZL7vP8cuC lnbjogbGVmdDsgdmVydGlj RYdnXMheF383LTWyrRggFv BhdGllbnQg PTkpHSb8R4UrSprrdIH+PC 42LJOeMM14mHBqyYZhf2cz jKq2LbRfDXKhBQC4qYjjWR nsd2QiWYRd V79ukQSzs0G6HVTcaZhzrT ZaReQglZK3lI4sSSvmfugv u0rzbrukKqnci2ncyx35eZ 11Q96xJPty ZHRoPSIzMCUiIHZhbGlnbj 5bxB2xFl2+ZKWjvHF2xLU2 uJ2gCRTbMwB9SAyyG608Pa RvcCIvPjxj e9vyu2rjuBn8VwJ8YEEyhl GopTzkULF3f1SsPz78V46u IHdpZHRoPSIyMCUiIHZhbG xbey8giM4e Ii8+MZUinOC0dXO5cJ7jTh XbIoO1HEiqT426UhIzlBZl LuadL55pV1JjeVK+PHRyPj r2DIAquDtv HZ4jsEHxVNekCj0qTBW9Nj GcUuIaOAqvT4GxAWOdyrih kdbgjJE8TVCwGOXdiJ48Gc 9udDogMTBw xYGDjG5oceiuc4vopmmeHw BzMGFaVIs3MUv7CFKxoGzy GwGoLEM7TuE6SVN1zJZxcZ 1hbGlnbjog cV9bN6UtEMOoegybMr88iC 4eMhRkTrM9WDriAbm+R0FS B6zEAZVZDFFLE5SENB58W2 CfYjh3PWLa cWgjHY3cnHAcWMrgRg2jgF otaDceAI7uYFItaeywISZf xO6dOVLhpQWztGisBI2jBQ Wmzvopz464 RyCqJRO5HDRgwNYnJ8QwkT 4lCrRxANPzTQZbX8YxyDDr WBvyO543EMazPqB8TLVilf WiE7WvYPZd hHucSyP9z1B1Jz1nWe1lFK 5jNIfnLB44XU52mBJaf3Z7 mJT4Q1IsXPLbfdfwdytfqF B4GCXuBXVy yN74mZMyQLvlLb4hs7M3t2 89ERAuRPYtdE06Yb8laSsz CFFvzIWToR4asxaca4igvf ogIzAwMDAw EDu8PWe2WLTlyNnhLsVsTH V3GtV4MLR2bDBayF0dtYsk siorvL9sOsp+MzAgWWVhcn H8G7IdJrl4 DHPznXfxUS5orCAiXIfgYc 0bjMjbnHkqQK6gAMFfsanf IWJeaH6fXNVwzSEblHaoIY 4wNTBpbjtm y079TnFmWYC6EIUreZFxJ5 LdoE5dBkDmPCFlVDNrR2Ua zLBoFCxxB161VKkqMqG8VF NnofBlJ0Eu WWLliOhzUuR8b1K6Lj7CND 2ewWL2P4IhKdm1VYNxiMqp FX9jjXPgQHgjAc6yyGlsjV ywIF1zAPZg svwmRNYhxR3vFPEddOCbyR odHE6iDYEpndtky921WhYa DZO1CCBjsLAyV0VupD0kSx AjMDAwMDAw Y0JolSSuIGowC751RWhmFm R0MBEaknQcD0LrBYZcaYbz KuS5o6Y1Ei3NoNVtLDSsKP 43NF55UC82 A0IeLaoswZEnlXK+PHRhYm xlIHdpZHRoPScxMDAlJyBz wTzuIP2cSv3xLZJjXJWslJ xhcHNlOiBj g3crBDWlIAdcXU6ntQltJ1 ShvFR5TJVst2f8Gc48C42p I7DdqVM+KHMaoUA4wJY5aF 8yBtZfFgR1 WEwfT881IcCuaBLjQnagz3 bon0otiNu4GbIuFZIstvZc cVguRSF0p7HfTj62D08kUI dpZHRoPSIy MLWlHCYdpVxdhr2fxC9jZi 8+IHGrhUK6lUH4iQ4uEyUh FqZ1WOxaZ928DnXsaJCbXx uhK43xR5Oq dXA+YHIqHit6KRKzkEvaZE 1qbERxQMnwVt9wNBA6HtGz MlVcDEksN7FpPMDcqpblhd mrhDN0EVWt RXVoqQ72Ih0xbLgyZc2rRL GlUCS8EQAuxOTbK3XdnL8o UvKrLWIzRBCvF7FzbNLxUJ djU550GEkw SuK2QSHutbDbR7OxWZAseA mzVhS8u9N5Ov7NnFzmcFTd SZ4sLoJxTOh5V5DhNuc0LT GhdOgrAO7j aZGfXDlkKh7pfPuerOhoYJ 1pISZmgvzpk078IrPtw3ly HGUfzOEtWQwqGFM2H53zf6 M7XWEkQAYc MIX2uYN0bU6mbCxezchteB VmdDsgdmVydGljYWwtYWxp S285SMFvnXbsPyZHKgg4P7 VbEut2JEFb cBptMB3whHAgWVhqNo9djN zvlNgzAV3fOKZklpvbv330 MpMof3oxHESuuDPfDHtmMG E6P39dq2Z2 TXEeQIBvAYX2kRR5yR8deG lnbjogbGVmdDsgdmVydGlj NKjyALadS985XVKslKfnVn 6VGft1T1Tr Wve9EKTseKpnDI2ttXFjUP bxGc9wdWbxqNdaPM5aEWPn nryho561KxOzr4rpPVVobX QgVGltZXM7 W61ye8O8GKRnWUHqDNU1uG L3aN0vuTowsclmbLXysNiu htBlvDqvWAgnCCnsN495MI RvcDsnPlBh eWVyOjwvdGQ+RC42vv36I2 LdErkvJvl7JJLqHZB4jEU9 xG8oIJMhOFrfp3E0mFI1C0 ThzdQxwf5r b2xs (more content not included)... Normal [facility] General Surgery Office/Clini c Noteon 07-18-2022 [...] patient or guardian consented to allow Bert Henry Sandip to record this visit. EMILEE brake specialist and provider reviewed before signing. EMILEE: [...] vaccine 12/19/1994 R (more content not included)... [facility] Comment on above: Result Comment: Elec tronically Signed By: Hang XIONG, Miki Antunez\.br\Date and Time Signed: 07/18/22 14:00 EDT\.br\Electronically Co-Signed By: Yue Mcdonnell\.br\Date and Time Co-Signed: 07/17/22 12:40 EDT Consultation Noteon 07-18-19 Consultation Note [id number]#1.0 0CD:127 [facility] IntraOperative Documentson 0 07-14-2022 IntraOperative Documents [id number]#1. 00CD:127 [facility] Coding Summary.on 07-13-2022 Coding Summary. CD:[id number] Gh 0bWw+PGhlYWQ+UL5MKWAgO 78ycQClmF7jF6RBFQyQDzx uFJSFXPuFFwNtwzRnZR7dk XNjZXJu IC8+BM4fSUViZltbdROwk7 Z3kVY2R66daj5mEUqufVO3 YWRsYuJzybiqt5lzfOl7JZ cuNmluOyBt AAOdeQ64OZZ6gY53Tn31yN YwsLEze0kxwLl9JrLkGXMo ZGE4cSrxHVolh0YtMRAxF2 2lgEMfz8M6 FBJzrItcyAIuFwZpsKB1tB 9xDLdalqsut0dbqhjpLxi8 bk92dLGds8N7jRD5U0Atan N7TVMtlCVn RccyyEEUmU3inmewl7akee mwXdEbNYUsOEn4WVa9ZDRe hInnSfIaUJ42ZZY6WHErts MyG5HoGSGl hKkdSqZ8p6K2Ql0UO5HVFm ppY6SCXVAOFCjmyJP+PC90 xs25K2SpZzrfRql2KGGbUZ S6dRV9kW9c EXUjZHyuc2U6tSW3Z4Zivc Pkwu5bm1ctETIhUZfnX26a zMKve5U1IVZqbGC8OJVefJ zkLkPbjS40 Oyc+QBCghDkhj3UmOuxyf4 mci6ccrRm9LlzaCGJzhbCw gNasDIB4h6AnHl4cYNDibL X0yGX2yE8d VvFqTqI0LEndR885JqGdzM FzCjcnU82sP3ZnzSJ+PHRy Met8JRUtrFwtEU8fT0VvMQ RpbmctbGVm xKhaCR5cTMLhymqnGWFwgU 2qQMOrD2x1VyRfDyC9VFjk M2AvQERucqwyOf40kH8jVy AwUoI6TYdy P1LaxrF8UXLtbZBjZVscLW A8S24mf7D4TWPqYNRkJPQ2 aMA3yI4urMrhxssjaPNgnL sgdmVydGlj XMlgBKnmG867NWZniDipCq NvZGluZyBEYXRlOiAgMDMv MTYvMjAyMzwvdGQ+PHRkIH K9fBmpLVTc jPXbFYybNr6yfDevoFtnNJ 2iZWFaztnaFNNuaH3bVJFg oZMzrObjJE0cJMUstnjsk2 10OiPwJDR5 NNIfaBWqD4RzbC7gNaDsYE AuWUHoD6PgzGFoQDacC283 XFveSyG0FSXzsbCoX6XaFR FsaWduOiB0 w4N8Zq0Kw9OvxvadL3EgfV UiIrNeNmfeBLc1I4KiPwxg dHI+FA78ROYqZS01XLo8TZ N1fXtzHUxk XZQeR1UuhB9lVdTtCFQoKJ RkOyc+PHRhYmxlIHdpZHRo ODjoADGyXbUneIecPY6jDn 9yZGVyLWNv eAkvdHJjDkFlq2kmZMQePJ yoUH3oqBmbR2CydMQ5MHXn t1a8Sr14E33xS9VpnPN+PG HnoUH2sAP1 rI1wNsGmUgT1CGvlB749Ut PxuLCkYozeb9wop7krcAt6 OnQ5QUPdapVfeByuXNH1m5 FqZl38A85l IHdpZHRoPSIxNSUiIHZhbG vaew6axR1bDu0+PGNvbCB3 uMB9yT2sUsVyLyR0RVajI8 49InRvcCIv Aiitr1jmj8oemTm7LzBgGQ PwlnHtxYgsSBA9a5VsKm13 T7TvrFdwc0IiKlf7nr62gB Ryb6T6zFA8 Q8ZeXIVsvwcnnFGxlYdxXD 3wQMKpfiwmSVRfzI2xFCTs X7z9QkKqQtF8NTonW4Ecfu R3JVHfnWBq QTRqhEDEzB7iqkgoo5najl orPcRsBZXzJMy0EPp5HSPn wXkbFiEdHDH6TuE8IOF5jN UhgK5sjZaq auhwtD5tJaa+RYA7gVFpsW CEOL1lYvejxDE+PHRkIHN0 uNtbIHlyHMVjaE4hHZBsK3 j8RtJsBuY4 UBapA9VyglF8PSMljOBzQO NatUSKiS4byxcij5mgylzb WvCfQZWfDAh2CSf0KFNpmN duOiBsZWZ0 GkW3BMM1xFHcxS5nzPcguu usdS5oSbd+QmlydGggRGF0 WFz7I3YvJfv4THZaeYgjKP 0ncGFkZGlu Jo1ldKlomRljGM7uTHMxhg blf187GeFks8qwBXVicCKx ATauEZP0H96oj8W1SEHzFD QmLHL9eRS2 mK8asJrdxmajtROkhUnzas MylTvmKBjmCQkyN097DPDm yKicIeBjYFg9A5SlNhj4UH PfhYjyZR0v rVCiPKfeSq6knQsisYwsFC 0wEKVanqhir437KwSaw8fa RTUqhWXfKEwaKFZ8Z88qc9 N3AZShZOQe OLA4xFW4sL8nzLytbplfyC VmdDsgdmVydGljYWwtYWxp Q040MQFcuPxyLdFkpYe8P0 GkNtj4NZDl jGapRE3jnDUnZLtcIk1dyJ ubvJtjDC9dMYXomvxzf632 UnEqv1dzALTzdLUlTNllZK W4W19wa5U4 OPDfNANeENM7mSG0tS6jnB lnbjogbGVmdDsgdmVydGlj JDfsRBpgF823GHRxxNdbGy BhdGllbnQg VSvcYEy6K9QtIpcnaCM+PC 47OOMlVQ80vPGmcAYye7sy wRq7VoAvLFMvUIK2pHkiNY vli4AdZWNr B09jyMFvw6L6KIKqlTawqI SpUgXhdKS4sD7xWLcrswxa h2npicciTzmca9fgub19zD 77K56yPIyt ZHRoPSIzMCUiIHZhbGlnbj 0usY3cVe0+OLMivGG0qEG8 uY6cJAOeWpP1GJxkA387Zs RvcCIvPjxj v7yzv4mwaGo7ZkZ4QMLybq QjdYxyNTI0d2MbMe11Y45w IHdpZHRoPSIyMCUiIHZhbG qwzp9wvR8c Ii8+WTJxuZE2zAP0iH8xXn ZoYxD2GCogP854LpHvkSEx UaumW56mX7QrmLT+PHRyPj j8IGZocHab MT4atNXjKSjvHu5qCVW9Sq VwRhWdDBxqW4AtGIJvnimv smvjtCE0BPYoMQPfbJ45Pk 9udDogMTBw yZIGgJ9uzqyhm1koqjkjJf QcRDQfXBl4IEw5UAXbzAih WlZkZXI5MsP1PKT0iTTrnQ 1hbGlnbjog tN3iZ9PsKEGpoupdLg06bP 8gHuFnLjW6QOncRaf+R0FS B8nXZTTEIKBLH3QBYW34K5 LsNtr4MSIl sRgmLP8lvRKeYYnySw4zkA llcDweHR6cCJVngsabIUGk zZ3jSDCuoTTwhEceQT2nNN Jvzhynm847 ChUpYLV7JJUkxIXnS9MxoU 3fSzLwULChUPEgO6EwgXXn ISjhV106KDjvDnK5ZSBjby SwW7PpJUZx dIacQiP9n9X1Aq9fYw8kKN 6kEVudAR75BT26cIPnf8S2 cEI5E9KqHSArqrkxudwqjM R1BADdZAYv yJ29iVPiSWphMe4vs1Q7a3 78JGKyOXSieW87Et5ccJet ZJJhrEFKaY4odlveq2nmnv ogIzAwMDAw DXg2NRq5RNTzqWjkYaUfSE E5ZdW6GUQ0rCFhsW1bmRms vpjnmQ8vSdd+MzAgWWVhcn O5Z2TvLlk4 NKSnmNtzQW5uvPYcKHboDy 3ozMozdLvsYD2cTNSjszui AZHyyZ1aCDKrnSJvnUcaWG 4wNTBpbjtm a614AtLjXSM3MLSriLEaR2 GllJ1vRfPuQVTgQCOjM0Bs tDMfWVtbI826HJsxSwR8UD YfyrQlN9Va KDXyjXakUrG5n8W3Dn5GSU 6coFC8G9MiLen0BVSipFpq ZQ0fvQFjCPrzWl8baCrijE joOA7rNGDy nesrAWLdyY2mNLRydWMtgK ttAZ5nKWRvdrhtp458QgDs DAV9GRVgbJYyO4RygE4xVg AjMDAwMDAw L1GprWSlOGlvY562JAuyUr N2LYWdfcWmJ6DjVDAihHov KkK3h6X6Rm0RcBD5pPE4o7 W3I6FrfBJc AHN9DDI1inmonbc1X2DlCe wvdHI+KV95UIFhXS67yIVw oLFdd1obgUc0VhUiLVZbTD U3nRsfGNee y6IaRWWjR70xlQYhw7E5VB CmuQslyYErPiJiwTK1pS0y IJwpxvlkc6hdfkzvViisy8 bcjd47lF64 A19kJXpcHUBdTINiUWYiKD IgeVjbuz3qqA2zPx6+PGNv uJU3gRF7bV6vNhWkRjC3HW rjD889QyWd sZFiOdfnn9cgs1yrrEd1Km WsKFUyvxZnaTruESZ7o3Fh Zw29V95cVSpdZJJiVIRqBW UiIHZhbGln lo5ngV2pOf3+II3kn1stdn 58pX08hBS+NQOyJHQ6cCnl VSlxZXJkkE7zRQtgNnY1UY RaErZjxG73 rVAxLSqjWg4vcSzfnDcrTD 8rXYTlivukj435JpBya1nr BWEwxQQrWVbkEEZ1M08km9 D4ERAeNCKe LEG9zIS6nG8wkXdrharqyA VmdDsgdmVydGljYWwtYWxp S273VBIylJutOdRiqLVyR3 mopdYVWE8u OjwvdGQ+UDHpDYK3uDnnEF faAGWeeV9wVVLuM6c3MkQy JvZ8QCzeG1UcsrA9BBJdsE QgMTBwdCBU fY1mxddcx6kgxgetHnFaBZ QaIVl0TZp7UUHpaGchYjVh LDV3YgN6SMY2gNYoiW1ooG bnlluohR4j Oyc+RklOOjwvdGQ+PHRkIH L9eQkwVKuvDUDkqE5zWLPl C9n5MkIgYmK2XJasN8Vsxo G1LUAgxFYt ZZZiuPQRkR8emhujt8owup cdVvEvTKDdXUf2ZZd1OHEj lGuhEkZlVEW9StC7KZA1pQ FilH2cfDox xucroU6nMvm+TVJOOjwvdG Q+DXAwEFX8ePxcAZodHUHj mQ6fLNBpQ3g8NnFuRoH9CR hwW4GjghD1 LWYhxUJuZVMypYNXgP9rtr squ3akgoujYlFsLXWzYPj2 VIb3AKNtkPckDsVaZBB3Tt P8QON0fJOe jO0afHuekbihnG0sNos+UG L3FEP3TJ47QQ70Q5FkRmuz dGFibGU+PHRhYmxlIHdpZH RoPScxMDAl JyBz (more content not included)... Normal [facility] Main OR Intraoperative Recor don 07-13-2022 Main OR Intraoperative Record IntraOp Document Type FT Summary Primary Physician: Miki Mauricio MD Finalized Date/Time: 07/13/22 12:00:03 Pt. Name: BLANCA RUDOLPH Toshia Artis/Sex: 1990 Female Med Rec #: [id number] Physician: Miki Mauricio MD Financial #: [id number] Pt. Type: A Room/Bed: [place] [address] Admit/Disch: 07/11/22 05:55:08 - 07/11/22 12:40:00 Institution: [...] 1 Entry 2 Entry 3 Case Attendee [place] Kiki MCCANN MD, Miki Champion RN, Kailey Wilson Role Performed AUTH SPECIALIST Surgeon - Primary Fiberglass Finisher - Primary Time In 07/11/22 08:00:00 07/11/22 08:00:00 07/11/22 08:00:00 Time Out 07/11/22 09:36:00 07/11/22 09:19:00 07/11/22 09:36:00 Procedure CHOLECYSTECOMY ROBOT CHOLECYSTECOMY ROBOT CHOLECYSTECOMY ROBOT ASSISTED(.) ASSISTED(.) ASSISTED(.) Comments DR. PRATT SUPERVISING Last Modified By: Ollie RN, Kailey Champion RN, Kailey Champion RN, Kailey Wilson 07/11/22 Caridad Wilson 07/11/22 Caridad Wilson 07/11/22 16:46:10 09:36:04 09:36:04 Entry 4 Entry 5 Case Attendee Cynthia Faustin CST, Noni Haywood Role Performed Scrub - Primary TELEPHONE ANSWERER/SA Time In 07/11/22 08:00:00 07/11/22 08:00:00 Time [...] CRNA, Ollie BRADY, Ramin Hatch Jennifer E, Noni Richardson CST Time Out Complete 07/11/22 08:25:00 Outcomes Met? [...] and tissue Entry 1 Skin Integrity Intact, [place], Warm, and Skin Abnormality No Dry Outcomes Met? Yes Last Modified By: Kailey Champion RN 07/11/22 08:29:36 Post-Care Text: The patient is free from signs and symptoms of injury caused by extraneous objects Patient Positioning FT Pre-Care Text: Identifies physical alterations that require additional precautions for procedure-specific p (more content not included)... [facility] Consent for Anesthesiaon Consent for Anesthesia [id number]#1. 00CD:127 [facility] Discharge Instructionson Discharge Instructions [id number]#1. 00CD:127 [facility] IntraOperative Documentson 0 07-12-2022 IntraOperative Documents [id number]#1. 00CD:127 [facility] Preoperative Documentson Preoperative Documents [id number]#1. 00CD:127 [facility] CHEMISTRYOrdered By: Dave ROP User on 07-11-2022 Glucose [Mass/Vol] 82 mg/dL Normal 55 - 99 mg/dL [facility] C POC Subsection Comment on above: Result Comment: Erin nida Meter POC Device SN [id number] Invalid Interpretation Code [facility] POC Subsection POC User ID [id number] Invalid Interpretation Code [facility] POC Subsection POC Username CHRISTOPHER PANCHAL Invalid Interpretation Code [facility] POC Subsection Capillary Glucose POCon 06-28 Glucose [Mass/Vol] 82 mg/dL Normal 55-99 [facility] Comment on above: Result Comment: Erin melgard Meter Performed By: #### 2 [id number] ####[facility] [address] [place] [address] Consent for Treatmenton 06-28 Consent for Treatment [id number]#1.0 0CD:127 Normal [facility] Inpatient Patient Summaryon 07-11-2022 Inpatient Patient Summary [address] [address] [facility] Clinical Discharge Instructions PERSON INFORMATION Name: BLANCA RUDOLPH PHYSICIANS Admitting Physician: Miki Mauricio MD Attending Physician: Miki Mauricio MD PCP: BILLY ZELAYA PA-C Discharge Diagnosis: Comment: PATIENT EDUCATION INFORMATION Instructions: Post Op Patient Instructions - FT (CUSTOM); Laparoscopic Cholecystectomy, Care After Medication Leaflets: Follow up: With: Address: When: Miki Mauricio [address] [place] [id number] [phone] Business (1) Comments: Appointment has already been scheduled Type Location Start [facility] Post Op 15 [facility] 07/17/2022 11:40 AM 07/17/2022 12:00 PM Confirmed MEDICATION LIST New Medications [id number], [address] [place], [place] [id number], [phone] acetaminophen-hydrocod one (Vera 325 mg-5 mg oral tablet) 1 Tablets [...] once a day (in the evening). Comment: Normal [facility] Main OR PACU I Recordon 06-28 Main OR PACU I Record PACU Phase I Document Type FT Summary Primary Physician: Miki Mauricio MD Finalized Date/Time: 07/11/22 11:23:02 Pt. Name: BLANCA RUDOLPH/Sex: 1990 Female Med Rec #: [id number] Physician: Miki Mauricio MD Financial #: [id number] Pt. Type: A Room/Bed: [place] [address] Admit/Disch: 07/11/22 05:55:08 - Institution: Case Times [...] Calhoun RN Document Signatures Signed By: Connie Calohun RN 07/11/22 11:23 Normal [facility] Main OR Preoperative Recordo n 07-11-2022 Main OR Preoperative Record PreOp Document Type FT Summary Primary Physician: Miki Mauricio MD Finalized Date/Time: 07/11/22 08:42:06 Pt. Name: BLANCA RUDOLPH/Sex: 1990 Female Med Rec #: [id number] Physician: Miki Mauricio MD Financial #: [id number] Pt. Type: A Room/Bed: 08/ Admit/Disch: 07/11/22 05:55:08 - Institution: Case Times [...] By: Kailey Champion RN 07/11/22 08:42 Normal [facility] Monitor Recordon 07-11-2022 Monitor Record [id number]#1. 00CD:127 Normal [facility] Monitor Record [id number]#1. 00CD:127 Normal [facility] Operative Reporton Operative Report Indication for Surge ry 31-year-old female symptomatic cholelithiasis here today for robotic cholecystectomy Preoperative Diagnosis CHOLELITHIASIS Postoperative Diagnosis CHOLELITHIASIS Operation CHOLECYSTECOMY ROBOT ASSISTED, ROBOT ASSISTED LAPAROSCOPIC CHOLECYSTECOMY, . Surgeon(s) Hang XIONG, Miki Antunez (Surgeon - Primary) Accountant Controller Andreia Richardson Anesthesia General Suresh XIONG, Brett Tripathi (Front Line Leader) Kiki Hatch CRNA (Other) Estimated Blood Loss [...] x2 Patient tolerated the procedure: yes Normal [facility] Comment on above: Result Comment: Elec tronically Signed By: Hang XIONG, Miki Antunez\.br\Date and Time Signed: 07/11/22 09:43 EDT Outpatient Surgery Discharge Instructionon 07-11-2022 Outpatient Surgery Discharge Instruction [place] [id number] Patient Discharge Instructions PERSON INFORMATION Name: BLANCA [...] RUDOLPH, have received the attached patient education materials/instructions and have verbalized understanding: May we do a follow up call? Yes No I was present when discharge instructions were given Patient Signature Date Clinican/Nurse Signature ___ Date Follow up: With: Address: When: Miki Mauricio [address], [facility] [address] [place] [address] [phone] Business (1) Comments: Appointment has already been scheduled Type Location Start Finish [facility] Post Op 15 [facility] 07/17/2022 11:40 AM 07/17/2022 12:00 PM Confirmed Pharmacy Information: You may receive a survey from [facility] [employer] asking you to rate your care experience. Your feedback is important and will help us understand what we do well and how we can improve the quality of care we provide to you, your loved ones and our community. It?s an honor to serve you. Thank you for choosing [facility] HERE ARE THE MEDICATION CHANGES THAT OCCURRED DURING YOUR HOSPITAL STAY New Medications [id number], [address] [place], [place] [id number], [phone] acetaminophen-hydrocod one (Vera 325 mg-5 mg oral tablet) 1 Tablets [...] and water are not available, use hand care connector. ? Change your dressing as told by [...] tub unti (more content not included)... Normal [facility] Patient Education - [employer] 0 07-11-2022 Patient [...] and water are not available, use hand care connector. ? Change your dressing as told by [...] care provider approves. General instructions ? Take pfba-wfx-vsslqtz and prescription medicines only as told by your health care provider. ? To prevent or treat constipation while you are taking prescription pain medicine, your health care provider may recommend that you: ? Drink enough fluid to keep your urine clear or pale yellow. ? Take zuzn-pvn-zxqwfpx or prescription medicines. ? Eat foods that [...] 04/16/2006 Document Revised: 03/29/2018 Document Reviewed: 10/02/2016 PLAXD Patient Education ? 2019 [employer]. [facility] Progress Note-Physicianon Progress Note-Physician Patient: BLANCA RUDOLPH Age: 31 years Sex: Female : 1990 Associated Diagnoses: None Author: Suresh XIONG, Brett Tripathi Preoperative Information Anesthesia Preop Info: Time patient last ate or drank 07/10/2022 23:00:00. Anesthesia history: Patient history: None. Family history+: None. Informed consent: Signed by patient. Review of Systems Eye: Negative. Ear/Nose/Mouth/Throat: Negative. Respiratory: Negative. Cardiovascular: Negative. Gastrointestinal: Negative. Genitourinary: Negative. Hematology/Lymphatics: Negative. Endocrine: Negative. Musculoskeletal: Negative. Neurologic: Negative. [...] ADD (attention deficit disorder) / SNOMED CT 81980821 / Confirmed Allergic rhinitis / SNOMED CT 921979858 / Confirmed Anemia / SNOMED CT 102608696 / Confirmed Anxiety / SNOMED CT 39926590 / Confirmed Back pain / SNOMED CT 493289016 / Confirmed BMI 45.0-49.9, adult / SNOMED CT 0357331518 / Confirmed Calculus of gallbladder / SNOMED CT 921255651 / Confirmed Cholelithiasis / SNOMED CT 486694412 / Confirmed Depressive disorder / SNOMED CT 96768953 / Confirmed Epigastric pain / SNOMED CT 414086963 / Confirmed Hypertension / SNOMED CT 9841266155 / Confirmed Morbid obesity / SNOMED CT 104438358 / Confirmed Nausea / SNOMED CT 8952759632 / Confirmed On rivaroxaban therapy / SNOMED CT 612497465 / Confirmed Pulmonary embolism x2 / SNOMED CT 48040933 / Confirmed Type II diabetes mellitus / SNOMED CT 960322198 / Confirmed, Active Problems (16) ADD (attention [...] in all extremities. Gastrointestinal: Soft, Non-tender. Plan [place] [employer] (ASA) physical status classification: Class III. Anesthetic Preoperative Plan: Anesthesia General. Normal [facility] Comment on above: Result Comment: Elec tronically Signed By: Suresh XIONG, Brett Tripathi\.br\Date and Time Signed: 07/11/22 07:47 EDT Consultation Noteon 07-10-19 Consultation Note [id number] 0CD:127 Normal [facility] Physician Referralon 023 Physician Referral [id number] 0CD:127 Normal [facility] BUNon 07-05-2022 Urea nitrogen [Mass/Vol] 9 mg/dL Normal 5-21 [facility] Comment on above: Performed By: #### 1 8113200, 1771074, 1270864, 5201086, 4990600, 9398766 ####[facility] [address] [place] [address] CBC w/Indiceson 07-05-2022 Erythrocyte distribution width (RBC) [Ratio] 12.9 % Normal 10.9-14.2 [facility] Comment on above: Performed By: #### 1 [id number], 0234850, 3576633, 0091923, 5440291, 2774464 ####[facility] [address] [place] [address] Hematocrit (Bld) [Volume fraction] 41.9 % Normal 34.0-46.0 [facility] Comment on above: Performed By: #### 1 8911838, 5014229, 6506023, 4501951, 9116801, 1269435 ####[address] [place] [address] Hemoglobin (Bld) [Mass/Vol] 14.3 g/dL Normal 12.0-16.0 [facility] Comment on above: Performed By: #### 1 7154572, 9124624, 9517712, 3083645, 3391713, 2611504 ####[address] [address] MCH (RBC) [Entitic mass] 31.7 pg Normal 27.0-34.0 [facility] Comment on above: Performed By: #### 1 2457364, 0069786, 6579056, 8504004, 4948973, 2027397 ####[address] [address] MCHC (RBC) [Mass/Vol] 34.2 g/dL Normal 31.4-36.0 [facility] Comment on above: Performed By: #### 1 4960681, 7256797, 1976077, 1770038, 3744568, 5079389 ####[address] [address] MCV (RBC) [Entitic vol] 92.8 fL Normal 80.0-100.0 [facility] Comment on above: Performed By: #### 1 6658718, 4360761, 0637851, 2650393, 7484883, 9843364 ####[address] [address] Platelet mean volume (Bld) [Entitic vol] 7.7 fL Normal 6.4-10.8 [facility] Comment on above: Performed By: #### 1 5053592, 6651927, 3475738, 7964071, 9549263, 6968352 ####[address] [address] Platelets (Bld) [#/Vol] 232.0 E9/L Normal 150.0-500.0 [facility] Comment on above: Performed By: #### 1 1526704, 3083657, 8099116, 8852552, 9751252, 1355710 ####[facility] [address] [place] [address] RBC (Bld) [#/Vol] 4.5 E12/L Normal 4.3-5.9 [facility] Comment on above: Performed By: #### 1 5351181, 0905722, 8347292, 4605966, 6007131, 9066638 ####[facility] [address] [place] [address] WBC corrected for nucl RBC Auto (Bld) [#/Vol] 4.9 E9/L Normal 4.0-11.0 [facility] Comment on above: Performed By: #### 1 6034412, 8809569, 3858882, 9332171, 5778165, 7484174 ####[address] [place] [address] Consent for Procedure/Surger yon 07-05-2022 Consent for Procedure/Surgery [id number] 0CD:127 Normal [facility] Consent for Treatmenton Consent for Treatment [id number]#1.0 0CD:127 Normal [facility] Creatinineon 07-05-2022 Creatinine [Mass/Vol] 0.7 mg/dL Normal 0.5-1.3 [facility] Comment on above: Performed By: #### 1 1712285, 3979966, 4636476, 8312518, 8328875, 3927112 ####[facility] [address] [place] [address] Glucoseon 07-05-2022 Glucose [Mass/Vol] 84 mg/dL Normal 55-199 [facility] Comment on above: Performed By: #### 1 7775070, 3309142, 6760276, 5488087, 7933870, 1466053 ####[facility] [address] [place] [address] Lyteson 07-05-2022 Anion gap [Moles/Vol] 9 mmol/L Normal 6-16 [facility] Comment on above: Performed By: #### 1 6187454, 4022848, 8146865, 7973159, 1844786, 1260037 ####[facility] [address] [place] [address] Chloride [Moles/Vol] 106 mmol/L Normal 101-111 [facility] Comment on above: Performed By: #### 1 1229937, 6677859, 7232587, 8612658, 1578144, 4876996 ####[facility] [address] [place] [address] CO2 [Moles/Vol] 26 mmol/L Normal 21-31 [facility] Comment on above: Performed By: #### 1 8512329, 1388354, 9030827, 0065435, 0902098, 1339268 ####[facility] [place] [id number] [place] [address] Potassium [Moles/Vol] 4.2 mmol/L Normal 3.5-5.3 [facility] Comment on above: Performed By: #### 1 [id number], [id number], [id number] ####[facility] [id number] [place] [address] Sodium [Moles/Vol] 137 mmol/L Normal 135-145 [facility] Comment on above: Performed By: #### 1 [id number], [id number] ####[facility] [id number] [place] [address] XR Chest 2 Viewson 3 XR Chest [...] mGy = 0 DAP = 0 Normal [facility] eGFRon 07-05-2022 GFR/1.73 sq M.predicted among blacks MDRD (S/P/Bld) [Vol rate/Area] mL/min/{1.73_m2} Normal >=59 [facility] Comment on above: Order Comment: Order added by Discern Expert. Result Comment: eGFR is race adjusted. AA=. Performed By: #### 1 [id number], [id number], [id number] ####[facility] [id number] [place] [address] GFR/1.73 sq M.predicted among non-blacks MDRD (S/P/Bld) [Vol rate/Area] mL/min/{1.73_m2} Normal >=59 [facility] Comment on above: Order Comment: Order added by Discern Expert. 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 Kidney failure is indicated at less than 15 mL/min/1.73m2. Performed By: #### 1 [id number], [id number], [id number], [id number] ####[facility] [address] [place] [address] Consent for Procedure/Surger yon 06-27-2022 Consent for Procedure/Surgery [id number]:[id number] Normal [facility] Ambulatory Visit Summaryon 0 06-26-2022 Ambulatory Visit [...] Appointments Sunday 12:30 PM EST With: Where: [facility] Sunday 8:00 AM EDT With: Where: [facility] Sunday 11:40 AM EDT With: Miki Mauricio MD Where: [facility] [place] Normal [facility] General Surgery Office/Clini c Noteon 06-26-2022 General Surgery Office/Clinic Note Chief Complaint SYSTEMS NAVIGATOR Gall stones HPI Staff SYSTEMS NAVIGATOR Blanca is a 31 y.o. female here [...] was provided. 3. 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 EMILEE brake specialist and provider reviewed before signing. EMILEE: [...] 01/20/2009 Rex (more content not included)... Normal [facility] Comment on above: Result Comment: Elec tronically [...] ovarian syndrome (PCOS). ? Binge-eating disorder. ? [place] syndrome. ? Taking certain medicines, such as [...] food choices, such as grocery stores and [employer] markets. What are the signs or symptoms? [...] 0?1 drink (more content not included)... Normal [facility] Pre-Certification Formon Pre-Certification Form [id number]:[id number] Normal [facility] PAP ACOG PANEL 1: 30 to 65on 03-23-2022 . . Normal [facility] Comment on above: Result Comment: Perf ormed at: WB Performed By: #### 4 [id number] #### [facility] [address] [address] [address] Naomi Irizarry Age Gdln ACOG Testing - Normal [facility] Comment on above: Performed By: #### 4 [id number] #### [facility] [address] [address] [address] Naomi Irizarry DIAGNOSIS: Comment [facility] Comment on above: Result Comment: NEGA TIVE FOR INTRAEPITHELIAL LESION OR MALIGNANCY. Performed at: WB Performed By: #### 4 [id number] #### [facility] [address] [address] [address] Naomi Irizarry HPV Aptima Positive Abnormal Negative [facility] Comment on above: Result Comment: This nucleic acid amplification test detects fourteen high-risk HPV types (16,18,31,33,35,39,45,51,52,56,58,59,66,68) without differentiation. Performed at: =G Performed By: #### 4 [id number] #### [facility] [address] [address] [address] Naomi Irizarry HPV Genotype 16 Negative Normal Negative [facility] Comment on above: Performed By: #### 4 [id number] #### [facility] [address] [address] [address] Naomi Irizarry HPV Genotype 18,45 Negative Normal Negative [facility] Comment on above: Performed By: #### 4 [id number] #### [facility] [address] [address] [address] Naomi Irizarry HPV Genotype Reflex Comment Normal [facility] Comment on above: Result Comment: Angelica sarmiento, see HPV Genotype results. Performed at: WB Performed By: #### 4 [id number] #### [facility] [address] [place] [address] Dr. Naomi Irizarry Methodology: Comment [facility] Comment on above: Result Comment: This liquid based ThinPrep(R) pap test was screened with the use of an image guided system. Performed at: WB Performed By: #### 4 [id number] #### [facility] [address] [place] [address] Dr. Naomi Irizarry Note: Comment Normal [facility] Comment on above: Result Comment: The Pap smear is a screening test designed to aid in the detection of premalignant and malignant conditions of the uterine cervix. It is not a diagnostic procedure and should not be used as the sole means of detecting cervical cancer. Both false-positive and false-negative reports do occur. . Performed at: WB Performed By: #### 4 [id number] #### [facility] [address] [place] [address] Dr. Naomi Irziarry Performed by: Comment Normal [facility] Comment on above: Result Comment: Tong [place] Ophthalmic Lens Inspector (ASCP) Performed at: WB Performed By: #### 4 [id number] #### [facility] [address] [place] [address] Dr. Naomi Irizarry Specimen adequacy: Comment Normal [facility] Comment on above: Result Comment: Sati sfactory for evaluation. Endocervical and/or squamous metaplastic cells (endocervical component) are present. Performed at: WB Performed By: #### 4 [id number] #### [facility] [address] [place] [address] Dr. Naomi Irizarry CHEMISTRYOrdered By: SYSTEM SYSTEM on 02-16-2022 Albumin [Mass/Vol] 4.1 g/dL Normal 3.3 - 5.0 gm/dL [facility] Albumin/Globulin [Mass ratio] 1.0 {ratio} Low [...] Bilirubin [Mass/Vol] 0.7 mg/dL Normal 0.0 - 1 .1 mg/dL [facility] Calcium [Mass/Vol] 8.3 mg/dL Low 8.9 - 11. 1 mg/dL [facility] Chloride [Moles/Vol] 108 mmol/L Normal 101 - 1 11 mmol/L [facility] CO2 [Moles/Vol] 29 mmol/L Normal 21 - 31 mmol/L [facility] Creatinine [Mass/Vol] 0.9 mg/dL Normal 0.5 - 1.3 mg/dL [facility] GFR/1.73 sq M.predicted among blacks MDRD (S/P/Bld) [Vol rate/Area] mL/min/1.73 m2 Normal >=59mL/min/1.7 3 m2 [facility] S GFR/1.73 sq M.predicted among non-blacks MDRD (S/P/Bld) [Vol rate/Area] mL/min/1.73 m2 Normal >=59mL/min/1.7 3 m2 [facility] Chem S Globulin (S) [Mass/Vol] 3.9 g/dL Normal 1.4 - 4.0 gm/dL [facility] Glucose [Mass/Vol] 82 mg/dL Normal 55 - 199 mg/dL [facility] Lipase [Catalytic activity/Vol] 34 U/L Normal 13 - 58 unit/L [facility] Potassium [Moles/Vol] 4.0 mmol/L Normal 3.5 - 5.3 mmol/L [facility] Protein [Mass/Vol] 8.0 g/dL High 6.0 - 7.8 gm/dL [facility] Sodium [Moles/Vol] 139 mmol/L Normal 135 - 145 mmol/L [facility] Urea nitrogen [Mass/Vol] 13 mg/dL Normal 5 - 21 mg/dL [facility] Urea nitrogen/Creatinine [Mass ratio] 14 mg/mg Normal 10 - 20 [facility] HEMATOLOGYOrdered By: Everette Morocho on 02-16-2022 [...] 35.1 g/dL Normal 31.4 - 36.0 gm/dL [facility] HemeAutoSS MCV (RBC) [Entitic vol] 90.2 fL Normal 80.0 - 100.0 fL [facility] HemeAutoSS Platelet mean volume (Bld) [Entitic vol] 8.1 fL Normal 6.4 - 10.8 fL [facility] HemeAutoSS Platelets (Bld) [#/Vol] 238.0 E9/L Normal 150.0 - 500.0 E9/L [facility] HemeAutoSS RBC (Bld) [#/Vol] 4.7 E12/L Normal 4.3 - 5.9 E12/L [facility] HemeAutoSS WBC corrected for nucl RBC Auto (Bld) [#/Vol] 8.1 E9/L Normal 4.0 - 11.0 E9/L [facility] HemeAutoSS Vital Signs Date Time Vital Sign Value Performing Clinician Facility 08-02-2023 09:24040 Body height 170.2 cm Maylin Portillo DO Work Phone: [facility] 08-02-2023 09:24040 Body mass index (BMI) [Ratio] 40.22 kg/m2 Maylin Portillo DO Work Phone: [facility] 08-02-2023 09:24040 Body weight 116.48 kg Maylin Portillo ViS Work Phone: [facility] 08-02-2023 09:24040 Diastolic blood pressure 74 mm[Hg] Maylin Portillo DO Work Phone: [facility] 08-02-2023 09:24-0400 Heart rate 83 /min Maylin Portillo DO Work Phone: [facility] 08-02-2023 09:24-0400 SaO2% (BldA) [Mass fraction] 97 % Maylin Portillo DO Work Phone: [facility] 08-02-2023 09:24-0400 Systolic blood pressure 116 mm[Hg] Maylin Portillo DO Work Phone: [facility] 07-31-2023 12:53-0400 Body height 172.7 cm Sherman Calle MD Work Phone: [facility] 07-31-2023 12:53-0400 Body mass index (BMI) [Ratio] 39.24 kg/m2 Sherman Calle MD Work Phone: [facility] 07-31-2023 12:53-0400 Body weight 117.03 kg Sherman Calle MD Work Phone: [facility] [employer] 07-31-2023 12:53-0400 Diastolic blood pressure 78 mm[Hg] Sherman Calle MD Work Phone: [facility] 07-31-2023 12:53-0400 Respiratory rate 18 /min Sherman Calle MD Work Phone: [facility] 07-31-2023 12:53-0400 Systolic blood pressure 140 mm[Hg] Sherman Calle MD Work Phone: [facility] 07-12-2023 09:27-0400 Diastolic blood pressure 88 mm[Hg] Jaylon Rosas MD Work Phone: [facility] 07-12-2023 09:27-0400 Heart rate 81 /min Jaylon Rosas MD Work Phone: [facility] 07-12-2023 09:27-0400 Systolic blood pressure 139 mm[Hg] Jaylon Rosas MD Work Phone: [facility] 07-12-2023 09:21-0400 Body height 172.7 cm Jaylon Rosas MD Work Phone: [facility] 07-12-2023 09:21-0400 Body mass index (BMI) [Ratio] 39.56 kg/m2 Jaylon Rosas MD Work Phone: [facility] 07-12-2023 09:21-0400 Body weight 118.03 kg Jaylon Rosas MD Work Phone: [facility] 07-12-2023 09:21-0400 SaO2% (BldA) [Mass fraction] 97 % Jaylon Rosas MD Work Phone: [facility] 07-05-2023 09:57-0500 Body height 172.7 cm Pasquale Alexander PA-C Work Phone: [facility] 07-05-2023 09:57-0500 Body mass index (BMI) [Ratio] 38.93 kg/m2 Pasquale Alexander PA-C Work Phone: [facility] 07-05-2023 09:57-0500 Body weight 116.12 kg Pasquale Alexander PA-C Work Phone: [facility] 07-05-2023 09:57-0500 Diastolic blood pressure 83 mm[Hg] Pasquale Alexander PA-C Work Phone: [facility] 07-05-2023 09:57-0500 Heart rate 72 /min Pasquale Alexander PA-C Work Phone: [facility] 07-05-2023 09:57-0500 Systolic blood pressure 134 mm[Hg] Pasquale Alexander PA-C Work Phone: [facility] 07-04-2023 07:56-0500 Body height 172.7 cm Sherman Calle MD Work Phone: [facility] 07-04-2023 07:56-0500 Body mass index (BMI) [Ratio] 39.54 kg/m2 Sherman Calle MD Work Phone: [facility] 07-04-2023 07:56-0500 Body weight 117.94 kg Sherman Calle MD Work Phone: [facility] 07-04-2023 07:56-0500 Diastolic blood pressure 78 mm[Hg] Sherman Calle MD Work Phone: [facility] 07-04-2023 07:56-0500 Respiratory rate 18 /min Sherman Calle MD Work Phone: [facility] 07-04-2023 07:56-0500 Systolic blood pressure 128 mm[Hg] Sherman Calle MD Work Phone: [facility] 09-05-2022 09:21-0400 Blood Pressure Location CYNTHIA GALLARDO [facility] 09-05-2022 09:21-0400 Diastolic blood pressure 74 mm[Hg] CYNTHIA PAULINA [facility] 09-05-2022 09:21-0400 Heart rate 68 /min CYNTHIA PAULINA [facility] 09-05-2022 09:21-0400 Respiratory rate 16 /min CYNTHIA PAULINA [facility] 09-05-2022 09:21-0400 Systolic blood pressure 138 mm[Hg] CYNTHIA PAULINA [facility] 08-10-2022 12:45-0400 Blood Pressure Location Katrin Resendiz [facility] 08-10-2022 12:45-0400 Body temperature 97.7 [degF] Katrin Resendiz [facility] 08-10-2022 12:45-0400 Diastolic blood pressure 72 mm[Hg] Katrin Resendiz [facility] 08-10-2022 12:45-0400 Heart rate 79 /min Katrin Resendiz [facility] 08-10-2022 12:45-0400 Systolic blood pressure 106 mm[Hg] Katrin Resendiz [facility] 07-17-2022 11:22-0400 Blood Pressure Location Miki Mauricio [facility] [place] 07-17-2022 11:22-0400 Diastolic blood pressure 78 mm[Hg] Miki Mauricio [facility] [place] 07-17-2022 11:22-0400 Heart rate 68 /min Miki Mauricio [facility] [place] 07-17-2022 11:22-0400 Respiratory rate 16 /min Miki Mauricio [facility] [place] 07-17-2022 11:22-0400 Systolic blood pressure 122 mm[Hg] Miki Mauricio [facility] [place] 07-11-2022 12:14-0400 Heart rate 74 /min Miki Mauricio [facility] 07-11-2022 12:14-0400 SaO2% (BldA) [Mass fraction] 97 % Miki Mauricio [facility] 07-11-2022 12:14-0400 Body temperature 98.06 [degF] Miki Mauricio [facility] 07-11-2022 12:13-0400 Diastolic blood pressure 79 mm[Hg] Miki Mourany [facility] 07-11-2022 12:13-0400 Mean blood pressure 94 mm[Hg] Miki Mourany [facility] 07-11-2022 12:13-0400 Systolic blood pressure 125 mm[Hg] Miki Mourany [facility] 07-11-2022 12:13-0400 Respiratory rate 18 /min Miki Mourany [facility] 07-11-2022 11:03-0400 Heart rate 61 /min Miki Mourany [facility] 07-11-2022 11:03-0400 SaO2% (BldA) [Mass fraction] 100 % Miki Mourany [facility] 07-11-2022 11:03-0400 Body temperature 97.7 [degF] Miki Mourany [facility] 07-11-2022 11:03-0400 Diastolic blood pressure 79 mm[Hg] Miki Mourany [facility] 07-11-2022 11:03-0400 Mean blood pressure 94 mm[Hg] Miki Mourany [facility] 07-11-2022 11:03-0400 Systolic blood pressure 125 mm[Hg] Miki Mourany [facility] 07-11-2022 11:03-0400 Respiratory rate 16 /min Miki Mourany [facility] 07-11-2022 11:00-0400 Body temperature 98.42 [degF] Miki Mourany [facility] 07-11-2022 11:00-0400 Mean blood pressure 103 mm[Hg] Miki Mourany [facility] 07-11-2022 11:00-0400 Respiratory rate 26 /min Miki Mourany [facility] 07-11-2022 10:45-0400 Mean blood pressure 105 mm[Hg] Miki Mourany [facility] 07-11-2022 10:45-0400 Respiratory rate 16 /min Miki Mourany [facility] 07-11-2022 10:30-0400 Mean blood pressure 102 mm[Hg] Miki Mourany [facility] 07-11-2022 10:30-0400 Respiratory rate 12 /min Miki Mourany [facility] 07-11-2022 09:37-0400 Body temperature 97.88 [degF] Miki Mourany [facility] 07-11-2022 07:00-0400 Heart rate 72 /min Miki Mourany [facility] 02-16-2022 12:27-0400 Diastolic blood pressure 85 mm[Hg] Wu SALAM [facility] 02-16-2022 12:27-0400 Mean blood pressure 102 mm[Hg] Wu SALAM [facility] 02-16-2022 12:27-0400 Systolic blood pressure 137 mm[Hg] Wu SALAM [facility] 02-16-2022 12:23-0400 Blood Pressure Location Wu SALAM [facility] 02-16-2022 12:23-0400 Diastolic blood pressure 83 mm[Hg] Wu SALAM [facility] 02-16-2022 12:23-0400 Heart rate 73 /min Wu SALAM [facility] 02-16-2022 12:23-0400 Respiratory rate 16 /min Wu SALAM [facility] 02-16-2022 12:23-0400 Systolic blood pressure 145 mm[Hg] Wu SALAM [facility] Encounters Encounter Date Encounter Type Care Provider Facility Start: 01-29-2024 ambulatory CYNTHIA Hector ty:PEDRO Brooks Start: 08-14-2023 End: 08-15-2023 ambulatory BILLY [facility] Start: 08-02-2023 End: 08-02-2023 ambulatory [facility] Start: 08-02-2023 End: 08-02-2023 Office outpatient new 30 minutes [facility] Comment on above: Bilateral pulmonary embolism ([facility]) October 2019 (Primary Dx); Personal history of PE (pulmonary embolism); Dyspnea on exertion; Environmental allergies Start: 07-31-2023 End: 07-31-2023 ambulatory [facility] Start: 07-31-2023 End: 07-31-2023 Office outpatient visit 40 minutes Sherman Calle MD Work Phone: [facility] Comment on above: BMI 39.0-39.9,adult (Primary Dx); Stage IV lupus nephritis (WHO) ([facility]); Systemic lupus erythematosus, unspecified SLE type, unspecified organ involvement status ([facility]); 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 mofetil Start: 07-26-2023 End: 07-27-2023 ambulatory [facility] Start: 07-23-2023 End: 07-24-2023 ambulatory [facility] Start: 07-16-2023 Telephone encounter Sudha VAUGHN [employer] [facility] Start: 07-15-2023 End: 07-15-2023 Emergency department patient visit BILLY ZELAYA [facility] Start: 07-13-2023 Telephone encounter [facility] Comment on above: Prior Authorization Start: 07-12-2023 End: 07-12-2023 Office outpatient visit 40 minutes Jaylon Rosas MD Work Phone: [employer] [facility] Comment on above: Lupus nephritis (CMS -HCC) (Primary Dx); Essential hypertension Start: 07-09-2023 End: 07-09-2023 ambulatory MAYCO ALBRIGHT Not Available Start: 07-06-2023 ambulatory [facility] Start: 07-06-2023 Telephone encounter Minda Hinkle [facility] Start: 07-06-2023 End: 07-06-2023 ambulatory [facility] Start: 07-05-2023 Documentation procedure Dee Dee Maciel [place] [facility] Start: 07-05-2023 End: 07-05-2023 ambulatory [facility] Start: 07-05-2023 End: 07-05-2023 Office outpatient new 60 minutes Pasquale Benjamin PA-C [facility] Comment on above: Daily headache (Prim jina Dx); Migraine without aura and without status migrainosus, not intractable; Vision changes; Uncontrolled hypertension; Fibromyalgia Start: 07-05-2023 End: 07-05-2023 Office outpatient visit 40 minutes Tuyet Warren MD Work Phone: Yolis Rodrigues [facility] Comment on above: Bilateral pulmonary embolism (CMS-HCC) October 2019 (Primary Dx); History of DVT (deep vein thrombosis); Preoperative clearance Start: 07-05-2023 End: 07-05-2023 Preoperative state Tuyet Warren MD Work Phone: [facility] Start: 07-04-2023 End: 07-04-2023 ambulatory [facility] Prashanth [facility] Start: 07-04-2023 End: 07-04-2023 Office outpatient visit 40 minutes Sherman Calle MD Work Phone: [facility] Comment on above: Systemic lupus eryth ematosus, unspecified SLE type, unspecified organ involvement status ([facility]) (Primary Dx); Stage IV lupus nephritis (WHO) ([facility]); 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 mofetil; senior care systemic steroid user; Fibromyalgia Start: 07-03-2023 Telephone encounter Digna Valladares RN [facility] Comment on above: Surgical Or Dental C learance Start: 06-28-2023 End: 06-29-2023 Orders Only Dee Dee cunningham [facility] Start: 06-27-2023 End: 06-27-2023 ambulatory FROY Berry [facility] Start: 06-25-2023 End: 06-25-2023 Emergency department patient visit SHANTEL BOWDEN [facility] Start: 06-25-2023 End: 06-25-2023 Emergency department patient visit BILLY [facility] Start: 06-21-2023 Refill Tuyet Warren MD Work Phone: [facility] Start: 06-21-2023 Refill Bucky Marcus [facility] Start: 06-20-2023 End: 06-22-2023 ambulatory DOT VALLEJO [facility] Start: 06-19-2023 Telephone encounter Nora VAUGHN PHN [facility] Start: 06-19-2023 End: 06-22-2023 Emergency department patient visit ADONAY LAY [facility] Start: 06-19-2023 End: 06-21-2023 ambulatory BILLY Jenkins [facility] Start: 06-18-2023 Telephone encounter Zackery ruth [facility] Start: 06-16-2023 End: 06-17-2023 Emergency department patient visit MAXIMINO CHAPMAN [facility] Start: 06-14-2023 Telephone encounter Keke Montero [facility] Start: 06-14-2023 End: 06-15-2023 ambulatory CHILO BAIN [facility] Start: 06-14-2023 End: 06-14-2023 ambulatory SIMONE FRANKLIN [facility] Start: 06-13-2023 Orders Only Chilo rg MD Work Phone: [employer] [facility] Comment on above: Stage IV lupus nephr itis (WHO) ([facility]) (Primary Dx); Stage 3 chronic kidney disease, unspecified whether stage 3a or 3b CKD ([facility]) Start: 06-11-2023 Telephone encounter Keke Montero [facility] Start: 06-06-2023 Telephone encounter Digna Valladares RN [facility] Comment on above: Cardiac Clearance Start: 06-06-2023 End: 06-06-2023 Emergency department patient visit BILLY Jenkins [facility] Start: 06-05-2023 End: 06-06-2023 ambulatory [facility] [facility] Start: 06-05-2023 Telephone encounter Kirstie Cantu i [facility] Start: 06-04-2023 End: 06-04-2023 Emergency department patient visit BILLY Jenkins ZELAYA [facility] Start: 06-04-2023 Telephone encounter Aster Guthrie CMA [facility] Start: 06-03-2023 End: 06-03-2023 Emergency department patient visit BILLY Jenkins [facility] Start: 05-25-2023 End: 05-25-2023 Emergency department patient visit BILLY Jenkins [facility] Start: 05-22-2023 End: 05-22-2023 Emergency department patient visit BILLY Jenkins ZELAYA [facility] Start: 05-21-2023 End: 05-21-2023 ambulatory SIMONE FRANKLIN [facility] Start: 05-18-2023 Telephone encounter Cynthia Dodge CMA [facility] Start: 05-16-2023 End: 05-16-2023 Emergency department patient visit SARAH Seema MAC [facility] Start: 05-16-2023 End: 05-16-2023 Emergency department patient visit BILLY ZELAYA [facility] Start: 05-14-2023 Chart abstracting Simone smalls MD Work Phone: [facility] Start: 05-10-2023 End: 05-11-2023 Emergency department patient visit DONALDO HAHN [facility] Start: 05-03-2023 End: 05-04-2023 ambulatory SHERMAN N [facility] Start: 04-25-2023 Documentation procedure Dee Dee Maciel [facility] Start: 04-18-2023 End: 04-18-2023 ambulatory MAYCO ALBRIGHT Not Available Start: 04-06-2023 ambulatory [facility] Start: 04-06-2023 End: 04-06-2023 ambulatory [facility] Start: 03-13-2023 End: 03-14-2023 ambulatory Billy Zelaya Facility:[facility] Start: 03-13-2023 End: 03-13-2023 Patient encounter procedure CYNTHIA GALLARDO [facility] Start: 01-05-2023 ambulatory [facility] Start: 01-05-2023 End: 01-05-2023 ambulatory [facility] Start: 12-15-2022 ambulatory [facility] Start: 12-15-2022 [facility] Start: 09-05-2022 End: 09-06-2022 ambulatory Billy Alice Zelaya Facility:[facility] Start: 09-05-2022 End: 09-05-2022 Patient encounter procedure CYNTHIA Haywood PAULINA [facility] Start: 08-15-2022 ambulatory Billy Alice Zelaya Facility :[facility] Start: 08-10-2022 End: 08-11-2022 ambulatory Billy Alice Nathalie [facility] Start: 08-10-2022 End: 08-11-2022 ambulatory Katrin Resendiz Facility:[facility] Start: 08-10-2022 End: 08-10-2022 Patient encounter procedure Katrin Resendiz [facility] Start: 08-10-2022 End: 08-10-2022 Patient encounter procedure Katrin Alice Astrid [facility] Start: 07-17-2022 End: 07-18-2022 ambulatory Miki Mauricio Facility:[facility] Start: 07-17-2022 End: 07-17-2022 Patient encounter procedure Miki Mauricio [facility] [place] Start: 07-11-2022 End: 07-11-2022 ambulatory Miki Mauricio Facility:[facility] Start: 07-11-2022 End: 07-11-2022 Admission to same day surgery center Miki Mauricio [facility] Start: 07-05-2022 End: 07-06-2022 ambulatory Miki Mauricio Facility:[facility] Start: 07-05-2022 ambulatory Issa astorga:[id number] Start: 06-26-2022 End: 06-27-2022 ambulatory Miki Mauricio Facility: [place] Start: 06-21-2022 ambulatory Miki Mauricio Facilit y: [place] Start: 03-14-2022 End: 03-14-[address] MAYCO ALBRIGHT Facility: Start: 02-16-2022 End: 02-16-2022 Patient encounter procedure [employer] [facility] Start: 02-16-2022 End: 06-01-2022 [facility] Start: 02-16-2022 End: 02-16-2022 Patient encounter procedure Wu [employer] [facility] Start: 12-12-2021 End: 12-12-2021 ambulatory MELONY THURSTON Facility:[facility] Procedures Date Procedure Procedure Detail Performing Clinician Start: 07-05-2023 Adult depression screening assessment Tuyet Warren MD Work Phone: Start: 06-27-2023 Follow-up visit Follow-up FROY HARMON Start: 06-19-2023 Adult depression screening assessment Zackery Lerma [facility] Start: 04-18-2023 Microscopic observation [Identifier] in Cervix by Cyto stain Jaylon Rosas MD Work Phone: Start: 12-18-2022 Adult depression screening assessment Dee Dee Hernandez RN Start: 03-14-2022 Microscopic observation [Identifier] in Cervix by Cyto stain Dee Dee Hernandez RN Start: 03-23-2020 End: 06-30-2020 H/O: section Previous delivery, antepartum Dee Dee Hernandez RN section Miki matta Cholecystectomy Miki Mauricio Incision and drainag e of hematoma Miki Mauricio Ligation of fallopian tube J ohprashanth Mauricio Plan of Treatment Date Care Activity Detail Author Start: 03-23-2030 DTaP,Tdap and Td Vaccines (9 - Td or Tdap) DTaP,Tdap and Td Vaccines (9 - Td or Tdap) [facility] Start: 04-18-2026 Screening for malignant neoplasm of cervix Pap Smear [facility] Start: 03-14-2025 Screening for malignant neoplasm of cervix Pap Smear [facility] Start: 08-01-2024 Adult BMI Screening Adult BMI Screening [facility] Start: 08-01-2024 Tobacco Screening Tobacco Screening [facility] Start: 07-30-2024 Adult BMI Screening Adult BMI Screening [facility] Start: 07-30-2024 Tobacco Screening Tobacco Screening [facility] Start: 07-14-2024 Adult BMI Screening Adult BMI Screening [facility] Start: 07-14-2024 Tobacco Screening Tobacco Screening [facility] Start: 07-11-2024 Adult BMI Screening Adult BMI Screening [facility] Start: 07-11-2024 Tobacco Screening Tobacco Screening [facility] Start: 07-04-2024 Adult BMI Screening Adult BMI Screening [facility] Start: 07-04-2024 Depression Screening Depression Screening [facility] Start: 07-04-2024 Tobacco Screening Tobacco Screening [facility] Start: 07-03-2024 Adult BMI Screening Adult BMI Screening [facility] Start: 07-03-2024 End: 07-03-2024 Patient encounter procedure 07/03/2024 9:00 AM EST Office Visit Yolis Rodrigues [facility] - Medical Oncology [address] [place] [phone] Tuyet Warren MD [facility] [address] [place] [address] Yolis Rodrigues [facility] Start: 06-27-2024 Adult BMI Screening Adult BMI Screening [facility] Start: 06-27-2024 Tobacco Screening Tobacco Screening [facility] Start: 06-21-2024 Adult BMI Screening Adult BMI Screening [facility] Start: 06-19-2024 Depression Screening Depression Screening [facility] Start: 06-19-2024 Tobacco Screening Tobacco Screening [facility] Start: 06-14-2024 Adult BMI Screening Adult BMI Screening [facility] Start: 06-14-2024 Tobacco Screening Tobacco Screening [facility] Start: 06-05-2024 Adult BMI Screening Adult BMI Screening [facility] Start: 06-05-2024 Tobacco Screening Tobacco Screening [facility] Start: 06-02-2024 End: 07-04-2024 CBC W Auto Differential panel - Blood CBC auto differential Lab Routine Bilateral pulmonary embolism (CMS-HCC) Expected: 06/02/2024, Expires: 07/04/2024 [employer] Phone: Comment on above: Expected: 06/02/2024, Expires: Start: 06-02-2024 End: 07-04-2024 Comprehensive metabolic 2000 panel - Serum or Plasma Comprehensive metabolic panel Lab Routine Bilateral pulmonary embolism (CMS-HCC) Expected: 06/02/2024 (Approximate), Expires: 07/04/2024 [facility] Comment on above: Expected: 06/02/2024 (Approximate), Expi res: 07/04/2024 Start: 05-15-2024 Adult BMI Screening Adult BMI Screening [facility] Start: 05-15-2024 Tobacco Screening [facility] Start: 05-10-2024 Adult BMI Screening Adult BMI Screening [facility] Start: 05-10-2024 Tobacco Screening Tobacco Screening [facility] Start: 04-02-2024 Adult BMI Screening Adult BMI Screening [facility] Start: 04-02-2024 Tobacco Screening Tobacco Screening [facility] Start: 12-30-2023 Influenza vaccination Influenza Vaccine [facility] Start: 12-19-2023 Depression Screening Depression Screening [facility] Start: 10-18-2023 End: 10-18-2023 Patient encounter procedure [facility] Start: 09-07-2023 End: 09-07-2023 Patient encounter procedure 09/07/2023 10:00 AM EDT Office Visit [facility] [address] [facility] [place] [phone] Pasquale Alexander PA-C [address] [facility] [place] [address] [facility] Start: 08-30-2023 End: 07-30-2024 Creatinine includes GFR, serum Creatinine includes GFR, serum Lab Routine Stage IV lupus nephritis (WHO) ([facility]) Expected: 08/30/2023 (Approximate), Expires: 07/30/2024 [facility] [employer] Comment on above: Expected: 08/30/2023 (Approximate), Expi res: 07/30/2024 Start: 08-30-2023 End: 07-30-2024 Protein creat ratio Protein creat ratio Lab Routine Stage IV lupus nephritis (WHO) ([facility]) Expected: 08/30/2023 (Approximate), Expires: 07/30/[address] [facility] Comment on above: Expected: 08/30/2023 (Approximate), Expi res: 07/30/2024 Start: 08-30-2023 End: 07-30-2024 Urinalysis Urinalysis Lab Routine Stage IV lupus nephritis (WHO) ([facility]) Expected: 08/30/2023 (Approximate), Expires: 07/30/2024 [facility] Comment on above: Expected: 08/30/2023 (Approximate), Expi res: 07/30/2024 Start: 08-30-2023 End: 08-30-2023 Patient encounter procedure 08/30/2023 10:45 AM EDT Office Visit [facility] [address] [address] Sherman Calle MD [address] [address] [facility] Start: 08-14-2023 End: 07-30-2024 Creatinine includes GFR, serum Creatinine includes GFR, serum Lab Routine Stage IV lupus nephritis (WHO) ([facility]) Expected: 08/14/2023 (Approximate), Expires: 07/30/2024 [facility] Work Phone: Comment on above: Expected: 08/14/2023 (Approximate), Expi res: 07/30/2024 Start: 08-14-2023 End: 08-14-2023 Patient encounter procedure 08/14/2023 10:30 AM EDT Appointment [facility] - Pulmonary Function [address] [place] [phone] Maylin Portillo, DO [address] [address] [facility] Start: 08-06-2023 End: 08-06-2023 Patient encounter procedure 08/06/2023 8:30 AM EDT Office Visit [facility] [address] [phone] Sherman Calle MD [address] [address] [facility] Start: 08-02-2023 End: 08-02-2023 Patient encounter procedure 08/02/2023 10:00 AM EDT Office Visit [facility] [place] [phone] Maylin Portillo, DO [address] [address] [facility] Start: 07-31-2023 End: 07-31-2023 Patient encounter procedure 07/31/2023 1:15 PM EDT Office Visit [facility] [address] [phone] Sherman Calle MD [address] [address] [facility] Start: 07-23-2023 End: 07-23-2023 Patient encounter procedure 07/23/2023 9:45 AM EDT Appointment [facility] - MRI Imaging [address] [place] [phone] [facility] Start: 07-12-2023 End: 07-12-2023 Patient encounter procedure 07/12/2023 9:30 AM EDT Office Visit [facility] [address] [place] [phone] Jaylon Rosas MD [address] [place] [phone] [facility] Start: 07-05-2023 End: 07-04-2024 MR Brain WO contrast MR brain without contrast Imaging Routine Daily headache Migraine without aura and without status migrainosus, not intractable Vision changes Expected: 07/05/2023, Expires: 07/04/2024 [facility] Work Phone: Comment on above: Expected: 07/05/2023, Expires: Start: 07-05-2023 End: 07-05-2023 Patient encounter procedure 07/05/2023 10:00 AM EST Office Visit [facility] [address] [place] [address] Pasquale Alexander PA-C [address] [facility] [place] [address] [facility] Start: 07-05-2023 End: 07-05-2023 Telemedicine consultation with patient 07/05/2023 9:00 AM EST Telemedicine Yolis Maciel [place] Oncology [address] [place] [address] Tuyet Warren MD [address] [facility] [address] [place] [address] Yolis Rodrigues [facility] Start: 07-04-2023 End: 07-03-2024 C-reactive protein C-reactive protein Lab Routine Stage IV lupus nephritis (WHO) ([facility]) Systemic lupus erythematosus, unspecified SLE type, unspecified organ involvement status ([facility]) Expected: 07/04/2023 (Approximate), Expires: 07/03/2024 [email or web address] Comment on above: Expected: 07/04/2023 (Approximate), Expi res: 07/03/2024 Start: 07-04-2023 End: 07-03-2024 CBC W Auto Differential panel - Blood CBC auto differential Lab Routine Stage IV lupus nephritis (WHO) ([facility]) Systemic lupus erythematosus, unspecified SLE type, unspecified organ involvement status ([facility]) Encounter for nursing home use of mycophenolate mofetil Expected: 07/04/2023 (Approximate), Expires: 07/03/2024 [email or web address] Comment on above: Expected: 07/04/2023 (Approximate), Expi res: 07/03/2024 Start: 07-04-2023 End: 07-03-2024 Comprehensive metabolic 2000 panel - Serum or Plasma Comprehensive metabolic panel Lab Routine Stage IV lupus nephritis (WHO) ([facility]) Systemic lupus erythematosus, unspecified SLE type, unspecified organ involvement status ([facility]) Expected: 07/04/2023 (Approximate), Expires: 07/03/2024 [email or web address] Comment on above: Expected: 07/04/2023 (Approximate), Expi res: 07/03/2024 Start: 07-04-2023 End: 07-03-2024 Erythrocyte sedimentation rate Erythrocyte Sedimentation Rate (ESR) Lab Routine Stage IV lupus nephritis (WHO) ([facility]) Systemic lupus erythematosus, unspecified SLE type, unspecified organ involvement status ([facility]) Expected: 07/04/2023 (Approximate), Expires: 07/03/2024 [employer] Work Phone: Comment on above: Expected: 07/04/2023 (Approximate), Expi res: 07/03/2024 Start: 07-04-2023 End: 07-03-2024 Protein creat ratio Protein creat ratio Lab Routine Stage IV lupus nephritis (WHO) ([facility]) Expected: 07/04/2023 (Approximate), Expires: 07/03/2024 [facility] Comment on above: Expected: 07/04/2023 (Approximate), Expi res: 07/03/2024 Start: 07-04-2023 End: 07-03-2024 Unlisted Lab Test Unlisted Lab Test Lab Routine Stage IV lupus nephritis (WHO) ([facility]) Systemic lupus erythematosus, unspecified SLE type, unspecified organ involvement status ([facility]) Expected: 07/04/2023, Expires: 07/03/2024 [facility] Comment on above: Expected: 07/04/2023, Expires: Start: 07-04-2023 End: 07-03-2024 Urinalysis Urinalysis Lab Routine Stage IV lupus nephritis (WHO) ([facility]) Expected: 07/04/2023 (Approximate), Expires: 07/03/2024 [facility] Comment on above: Expected: 07/04/2023 (Approximate), Expi res: 07/03/2024 Start: 07-04-2023 End: 07-04-2023 Patient encounter procedure [facility] Start: 07-03-2023 End: 07-03-2023 Patient encounter procedure 07/03/2023 8:00 AM EST Office Visit [facility] [address] [place] [address] Pasquale Alexander PA-C [address] [facility] [place] [address] [facility] Start: 06-28-2023 End: 06-28-2023 ambulatory 06/28/2023 10:00 AM EST Lab Yolis Maciel [place] [facility] [address] [place] [phone] Yoils Rodrigues [facility] Start: 06-21-2023 End: 06-21-2023 Patient encounter procedure 06/21/2023 9:30 AM EST Office Visit [facility] [address] [place] [address] Chilo Bain MD [address] [place] [address] [facility] Start: 06-20-2023 End: 06-13-2024 Basic metabolic 2000 panel - Serum or Plasma Basic Metabolic Panel Lab Routine Stage IV lupus nephritis (WHO) ([facility]) Stage 3 chronic kidney disease, unspecified whether stage 3a or 3b CKD ([facility]) Expected: 06/20/2023 (Approximate), Expires: 06/13/2024 [facility] Work Phone: Comment on above: Expected: 06/20/2023 (Approximate), Expi res: 06/13/2024 Start: 06-20-2023 End: 06-13-2024 CBC panel - Blood by Automated count CBC without diff Lab Routine Stage IV lupus nephritis (WHO) ([facility]) Stage 3 chronic kidney disease, unspecified whether stage 3a or 3b CKD ([facility]) Expected: 06/20/2023 (Approximate), Expires: 06/13/2024 [facility] [employer] [facility] Comment on above: Expected: 06/20/2023 (Approximate), Expi res: 06/13/2024 Start: 06-20-2023 End: 06-13-2024 Magnesium [Mass/volume] in Serum or Plasma Magnesium Lab Routine Stage IV lupus nephritis (WHO) ([facility]) Stage 3 chronic kidney disease, unspecified whether stage 3a or 3b CKD ([facility]) Expected: 06/20/2023 (Approximate), Expires: 06/13/2024 [facility] Comment on above: Expected: 06/20/2023 (Approximate), Expi res: 06/13/2024 Start: 06-20-2023 End: 06-13-2024 Parathyroid Hormone, intact Parathyroid Hormone, intact Lab Routine Stage IV lupus nephritis (WHO) ([facility]) Stage 3 chronic kidney disease, unspecified whether stage 3a or 3b CKD ([facility]) Expected: 06/20/2023 (Approximate), Expires: 06/13/2024 [facility] Comment on above: Expected: 06/20/2023 (Approximate), Expi res: 06/13/2024 Start: 06-20-2023 End: 06-13-2024 Phosphate [Mass/volume] in Serum or Plasma Phosphorus Lab Routine Stage IV lupus nephritis (WHO) ([facility]) Stage 3 chronic kidney disease, unspecified whether stage 3a or 3b CKD ([facility]) Expected: 06/20/2023 (Approximate), Expires: 06/13/2024 [facility] Comment on above: Expected: 06/20/2023 (Approximate), Expi res: 06/13/2024 Start: 06-20-2023 End: 06-13-2024 Protein creat ratio Protein creat ratio Lab Routine Stage IV lupus nephritis (WHO) ([facility]) Stage 3 chronic kidney disease, unspecified whether stage 3a or 3b CKD ([facility]) Expected: 06/20/2023 (Approximate), Expires: 06/13/2024 [facility] Comment on above: Expected: 06/20/2023 (Approximate), Expi res: 06/13/2024 Start: 06-20-2023 End: 06-13-2024 Vitamin D 25 hydroxy Vitamin D 25 hydroxy Lab Routine Stage IV lupus nephritis (WHO) ([facility]) Stage 3 chronic kidney disease, unspecified whether stage 3a or 3b CKD ([facility]) Expected: 06/20/2023 (Approximate), Expires: 06/13/2024 [facility] Comment on above: Expected: 06/20/2023 (Approximate), Expi res: 06/13/2024 Start: 06-19-2023 End: 06-19-2023 Patient encounter procedure 06/19/2023 11:00 AM EST Office Visit [facility] [address] [place] [place] [address] Pasquale Alexander PA-C [address], [address] [place] [phone] [facility] Start: 06-14-2023 End: 06-14-2023 Patient encounter procedure [facility]io[facility] Start: 06-14-2023 End: 06-14-2023 Patient encounter procedure [facility]Nuclear Med[facility] Start: 06-08-2023 End: 06-08-2023 Patient encounter procedure 06/08/2023 1:00 PM EST Appointment [facility] Neuro[facility]iology [address] [place] [address] [facility] Start: 06-06-2023 End: 06-06-2024 SPECT Heart gated and ejection fraction at rest and W stress and W radionuclide IV Nuc stress exercise Cardiac Services Routine Angina pectoris, unstable ([facility]) Expected: 06/06/2023, Expires: 06/06/2024 [facility] Work Phone: Comment on above: Expected: 06/06/2023, Expires: Start: 05-21-2023 End: 05-21-2023 Patient encounter procedure 05/21/2023 10:30 AM EST Office Visit [facility] [address] [place] [address] Simone Franklin MD [address] [place] [address] [facility] Start: 05-03-2023 End: 05-03-2023 Patient encounter procedure 05/03/2023 8:30 AM EST Office Visit [facility] [address] [address] Sherman Calle MD [address] [address] [facility] Start: 11-10-2009 Adult BMI Follow Up Plan Adult BMI Follow Up Plan [email or web address] End: 07-11-2024 Albumin [Mass/volume] in Serum or Plasma Albumin Lab Routine Lupus nephritis ([facility]) 1 Occurrences starting 07/12/2023 until 07/11/2024 [facility] Work Phone: Comment on above: 1 Occurrences starting 07/12/2023 until 07/11/2024 End: 07-11-2024 Basic metabolic 2000 panel - Serum or Plasma Basic Metabolic Panel Lab Routine Lupus nephritis ([facility]) 1 Occurrences starting 07/12/2023 until 07/11/2024 [email or web address] Comment on above: 1 Occurrences starting 07/12/2023 until 07/11/2024 End: 07-03-2024 C3 complement C3 complement Lab Routine Stage IV lupus nephritis (WHO) ([facility]) Systemic lupus erythematosus, unspecified SLE type, unspecified organ involvement status ([facility]) 1 Occurrences starting 07/04/2023 until 07/03/2024 [email or web address] Comment on above: 1 Occurrences starting 07/04/2023 until 07/03/2024 End: 07-03-2024 C4 complement C4 complement Lab Routine Systemic lupus erythematosus, unspecified SLE type, unspecified organ involvement status ([facility]) 1 Occurrences starting 07/04/2023 until 07/03/2024 [email or web address] Comment on above: 1 Occurrences starting 07/04/2023 until 07/03/2024 End: 07-11-2024 CBC panel - Blood by Automated count CBC without diff Lab Routine Lupus nephritis ([facility]) 1 Occurrences starting 07/12/2023 until 07/11/2024 [email or web address] Comment on above: 1 Occurrences starting 07/12/2023 until 07/11/2024 End: 08-01-2024 Eosinophil count Eosinophil count Lab Routine Environmental allergies 1 Occurrences starting 08/02/2023 until 08/01/2024 [email or web address] Comment on above: 1 Occurrences starting 08/02/2023 until 08/01/2024 End: 07-11-2024 Magnesium [Mass/volume] in Serum or Plasma Magnesium Lab Routine Lupus nephritis ([facility]) 1 Occurrences starting 07/12/2023 until 07/11/2024 [email or web address] Comment on above: 1 Occurrences starting 07/12/2023 until 07/11/2024 End: 07-11-2024 Phosphate [Mass/volume] in Serum or Plasma Phosphorus Lab Routine Lupus nephritis ([facility]) 1 Occurrences starting 07/12/2023 until 07/11/2024 [email or web address] Comment on above: 1 Occurrences starting 07/12/2023 until 07/11/2024 End: 07-11-2024 Protein creat ratio Protein creat ratio Lab Routine Lupus nephritis ([facility]) 1 Occurrences starting 07/12/2023 until 07/11/2024 [email or web address] Comment on above: 1 Occurrences starting 07/12/2023 until 07/11/2024 End: 08-01-2024 Respiratory allergy panel Respiratory allergy panel Lab Routine Environmental allergies 1 Occurrences starting 08/02/2023 until 08/01/2024 [employer] Work Phone: Comment on above: 1 Occurrences starting 08/02/2023 until 08/01/2024 End: 07-11-2024 Urinalysis Urinalysis Lab Routine Lupus nephritis ([facility]) 1 Occurrences starting 07/12/2023 until 07/11/2024 [email or web address] Comment on above: 1 Occurrences starting 07/12/2023 until 07/11/2024 Immunizations Immunization Date Immunization Notes Care Provider [facility] 02-08-2023 Influenza, injectabl e, Madin Tasha Canine Kidney, preservative free, quadrivalent Rolon [facility] 02-08-2023 Pneumococcal Conjuga te 20-valent [facility] 02-08-2023 influenza virus vaccine, unspecified formulation Sherman Calle MD Work Phone: [facility] [employer] [facility] 03-23-2020 influenza virus vaccine, unspecified formulation Jazmin ZAMAN [facility] 03-23-2020 influenza, injectabl e, quadrivalent, preservative free Dee Dee Hernandez RN [facility] 03-23-2020 tetanus toxoid, redu martha diphtheria toxoid, and acellular pertussis vaccine, adsorbed Wu SALAM [facility] 04-02-2019 tetanus toxoid, redu martha diphtheria toxoid, and acellular pertussis vaccine, adsorbed Wu SALAM [facility] 02-26-2019 influenza virus vaccine, unspecified formulation [employer] [facility] 02-26-2019 influenza, injectabl e, quadrivalent, preservative free Dee Dee Hernandez RN [facility] 03-03-2010 influenza virus vaccine, unspecified formulation [employer] [facility] 03-03-2010 influenza, seasonal, injectable Dee Dee Hernandez RN [facility] 07-27-2009 HPV, unspecified formulation [employer] [facility] 07-27-2009 human papilloma viru s vaccine, quadrivalent Dee Dee Hernandez RN [facility] 03-29-2009 HPV, unspecified formulation [employer] [facility] 03-29-2009 human papilloma viru s vaccine, quadrivalent Dee Dee Hernandez RN [facility] 02-24-2009 influenza virus vaccine, live, attenuated, for intranasal use Dee Dee Hernandez RN [facility] 01-20-2009 HPV, unspecified formulation [employer] [facility] 01-20-2009 human papilloma viru s vaccine, quadrivalent Dee Dee Hernandez RN [facility] 01-20-2009 meningococcal ACWY vaccine, unspecified formulation [employer] [facility] 01-20-2009 meningococcal polysaccharide (groups A, C, Y and W-135) diphtheria toxoid conjugate vaccine (MCV4P) Dee Dee Hernandez RN [facility] 01-20-2009 tetanus toxoid, redu martha diphtheria toxoid, and acellular pertussis vaccine, adsorbed Wu SALAM [facility] 05-18-2008 influenza virus vaccine, unspecified formulation Wu SALAM [facility] 05-18-2008 influenza, seasonal, injectable, preservative free Dee Dee Hernandez RN [facility] 05-26-2004 measles, mumps and rubella virus vaccine Wu SALAM [facility] 04-03-2003 influenza virus vaccine, unspecified formulation Wu SALAM [facility] 04-03-2003 influenza, seasonal, injectable Dee Dee Hernandez RN [facility] 08-28-1996 diphtheria, tetanus toxoids and acellular pertussis vaccine, unspecified formulation Dee Dee Hernandez RN [facility] 08-28-1996 DTaP, unspecified formulation Wu SALAM [facility] 08-28-1996 poliovirus vaccine, unspecified formulation Dee Dee Hernandez RN [facility] 05-17-1995 hepatitis B vaccine, pediatric or pediatric/adolescent dosage Wu SALAM [facility] 12-19-1994 hepatitis B vaccine, pediatric or pediatric/adolescent dosage Wu SALAM [facility] 11-10-1994 hepatitis B vaccine, pediatric or pediatric/adolescent dosage Wu SALAM [facility] 07-28-1993 diphtheria, tetanus toxoids and acellular pertussis vaccine, unspecified formulation Dee Dee Hernandez RN [facility] 07-28-1993 DTaP, unspecified formulation Wu SALAM [facility] 07-28-1993 poliovirus vaccine, unspecified formulation Dee Dee Hernandez RN [facility] 02-10-1993 haemophilus influenz ae type b vaccine, conjugate unspecified formulation Dee Dee Hernandez RN [facility] 02-10-1993 Hib, unspecified formulation Wu SALAM [facility] 02-10-1993 measles, mumps and rubella virus vaccine Wu SALAM [facility] 05-07-1992 diphtheria, tetanus toxoids and acellular pertussis vaccine, unspecified formulation Dee Dee Hernandez RN [facility] 05-07-1992 DTaP, unspecified formulation Wu SALAM [facility] 05-07-1992 haemophilus influenz ae type b vaccine, conjugate unspecified formulation Dee Dee Hernandez RN [facility] 05-07-1992 Hib, unspecified formulation Wu SALAM [facility] 03-05-1992 diphtheria, tetanus toxoids and acellular pertussis vaccine, unspecified formulation Dee Dee Hernandez RN [facility] 03-05-1992 DTaP, unspecified formulation Wu SALAM [facility] 03-05-1992 haemophilus influenz ae type b vaccine, conjugate unspecified formulation Dee Dee Hernandez RN [facility] 03-05-1992 Hib, unspecified formulation Wu SALAM [facility] 03-05-1992 poliovirus vaccine, unspecified formulation Dee Dee Hernandez RN [facility] 01-07-1992 diphtheria, tetanus toxoids and acellular pertussis vaccine, unspecified formulation Dee Dee Hernandez RN [facility] 01-07-1992 DTaP, unspecified formulation Wu SALAM [facility] 01-07-1992 haemophilus influenz ae type b vaccine, conjugate unspecified formulation Dee Dee Hernandez RN [facility] 01-07-1992 Hib, unspecified formulation Katrin Astrid [facility] 01-07-1992 poliovirus vaccine, unspecified formulation Dee Dee Hernandez RN [facility] NEGATED: Highlighted row has not occurred!06-26-2022 influenza virus vaccine, unspecified formulation Miki Mauricio [facility] [place] NEGATED: Highlighted row has not occurred!06-26-2022 SARS-CoV-2 mRNA (tozinameran 5y-11y) vaccine Miki Mauricio [facility] NEGATED: Highlighted row has not occurred!02-16-2022 influenza virus vaccine, unspecified formulation Wujose g ZAMAN [facility] Payers Date Payer Category Payer Medicaid [facility] MEDICAID HMO [id number] 2022-Present [phone] [address] [place] [address] [id number]. [id number] 2014 Unknown [id number] 1991 Unknown [id number] 2.16.840.1.237347.3.579.2.593 1991 Unknown [id number] 2.16.840.1.230859.3.579.2.593 1991 Unknown [id number] 2.16.840.1.065457.3.579.2.356 1991 Unknown [id number] 2.16.840.1.034521.3.579.2.1286 1991 Unknown [id number] 2.16.840.1.657978.3.579.2.727 1991 Unknown [id number] 2.16.840.1.087233.3.579.2.727 1991 Unknown [id number] 2.16.840.1.120241.3.579.2.727 1991 Unknown [id number] 2.16.840.1.377553.3.579.2.727 1991 Unknown [id number] 2.16.840.1.622907.3.579.2.72 1991 Unknown [id number] 2.16.840.1.166516.3.579.2. 1991 Unknown [id number] 2.16.840.1.425870.3.579.2. 1991 Unknown [id number] 2.16.840.1.467500.3.579.2.72 1991 Unknown [id number] 2.16.840.1.393683.3.579.2. 1991 Unknown [id number] 2.16.840.1.578614.3.579.2. 1991 Unknown [id number] 2.16.840.1.897346.3.579.2. 1991 Unknown [id number] 2.16.840.1.770488.3.579.2.1285 1991 Unknown [id number] 2.16.840.1.419181.3.579.2.1285 1991 Unknown [id number] 2.16.840.1.403355.3.579.2.1285 1991 Unknown [id number] 2.16.840.1.204179.3.579.2.1285 1991 Unknown [id number] 2.16.840.1.784968.3.579.2.1285 1991 Unknown [id number] 2.16.840.1.141885.3.579.2.1258 1991 Unknown [id number] 2.16.840.1.172164.3.579.2.1258 1991 Unknown [id number] 2.16.840.1.140195.3.579.2.1285 1991 Unknown [id number] 2.16.840.1.289392.3.579.2.1285 1991 Unknown [id number] 2.16.840.1.596359.3.579.2.1285 1991 Unknown [id number] 2.16.840.1.237051.3.579.2.1285 1991 Unknown [id number] 2.16.840.1.017372.3.579.2.1285 1991 Unknown [id number] 2.16.840.1.016924.3.579.2.1285 1991 Unknown [id number] 2.16.840.1.945084.3.579.2.1285 1991 Unknown [id number] 2.16.840.1.574327.3.579.2.1285 1991 Unknown [id number] 2.16.840.1.139832.3.579.2.1285 1991 Unknown [id number] 2.16.840.1.714859.3.579.2.1285 1991 Unknown [id number] 2.16.840.1.335782.3.579.2.1285 1991 Unknown [id number] 2.16.840.1.534456.3.579.2.1285 1991 Unknown [id number] 2.16.840.1.368069.3.579.2.1285 1991 Unknown [id number] 2.16.840.1.483081.3.579.2.1285 1991 Unknown [id number] 2.16.840.1.524750.3.579.2.1285 1991 Unknown [id number] 2.16.840.1.031751.3.579.2.1285 1991 Unknown [id number] 2.16.840.1.546029.3.579.2.1285 1991 Unknown [id number] 2.16.840.1.836859.3.579.2.1285 1991 Unknown [id number] 2.16.840.1.715052.3.579.2.1285 1991 Unknown [id number] 2.16.840.1.081273.3.579.2.1285 1991 Unknown [id number] 2.16.840.1.855833.3.579.2.1285 1991 Unknown [id number] 2.16.840.1.027839.3.579.2.1285 1991 Unknown [id number] 2.16.840.1.892061.3.579.2.1285 1991 Unknown [id number] 2.16.840.1.625923.3.579.2.1285 1991 Unknown [id number] 2.16.840.1.960914.3.579.2.1285 1991 Unknown [id number] 2.16.840.1.094766.3.579.2.1285 1991 Unknown [id number] 2.16.840.1.772197.3.579.2.1285 1991 Unknown [id number] 2.16.840.1.192124.3.579.2.1285 1991 Unknown [id number] 2.16.840.1.358524.3.579.2.1285 1991 Unknown [id number] 2.16.840.1.993486.3.579.2.1285 1991 Unknown [id number] 2.16.840.1.253240.3.579.2.1285 1959 Unknown [id number] Social History Date Type Detail Facility Start: 02-16-2022 End: 08-02-2023 Tobacco smoking status Ex-smoker (finding) [facility] Start: 12-18-2022 End: 07-15-2023 Sex Assigned At Female [facility] Tobacco smoking status Never [facility] End: 04-30-2020 History of tobacco use Current smoker [facility] End: 04-30-2020 History of tobacco use Cigarette Smoker [facility] Start: 04-10-2022 End: 08-02-2023 Tobacco use and exposure Smokeless tobacco non-user [facility] Start: 04-19-2023 End: 08-02-2023 Alcohol intake Ex-drinker (finding) [facility] Start: 12-18-2022 End: 07-15-2023 History of Social function [facility] Do you belong to any clubs or organizations such as christianity groups, unions, fraternal or athletic groups, or school groups? Yes [facility] Are you now , , , , never or living with a partner? Never [facility] How often to you hav e a drink containing alcohol? Never [facility] How many standard dr inks containing alcohol do you have on a typical day? 1 or 2 [facility] Do you feel stress - tense, restless, nervous, or anxious, or unable to sleep at night because your mind is troubled all the time - these days [OSQ] Only a little [facility] Start: 1990 Sex Assigned At Not on file P [facility] Has the [employer], [employer], [employer], or water company threatened to shut off services in your home in past 12Mo No [facility] Goals Date Patient Goal Desired Activity /State Personal health goal Comment on above: Formatting of this n ote might be different from the original. Evaluation of progress towards goal: self care, family support Functional Status Date Assessment Result Facility 09-05-2022 Functional Status N/A [facility] 08-10-2022 Functional Status N/A [facility] 07-17-2022 Functional Status N/A [facility] [place] 02-16-2022 Functional Status N/A [facility] Clinical Notes 10-29-2019 to 08-02-2023 Maylin Portillo, - 08/02/2023 10:00 AM Kwame Calle MD - 07/31/2023 1:15 PM EDTTelephone Encounter - Sudha Stoddard, [employer] DEVELOPER - 07/16/2023 10:19 AM Christian Rosas MD - 07/12/2023 9:30 AM EDT Note Date & Type Note Facility 08-02-2023 History of Present illness Narrative Images from the original note were not included. [facility] Patient - Blanca Rudolph Age - 32 y.o. - 1990 Referring physician: Billy MICHAUD Reason for Consultation: Pulmonary Emboli HPI: Blanca Rudolph is a 32 y.o. 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 She was seen as a new patient consultation in 2019 due to recurrent VTE. She has not been seen since. She reports that since the new diagnosis of lupus she is trying to reestablish care with her previous physicians and just make sure that everything has been in check in regards to new diagnosis of lupus. She overall feels that she is doing okay. She is slightly overwhelmed by all her new diagnosis, medications. She does report that she does get winded mostly with seasonal weather change. She does feel that she is environmental allergies. She has previously been prescribed albuterol p.r.n. rescue inhaler by primary care physician assistant produce manager within the last couple of years which she does use during these times of shortness of breath with weather change. It does seem to relieve her shortness of breath significantly. She rarely feels the need to use it but is in need of a refill today. No previous pulmonary function test data. Last CT scan was in [address] angiogram and reviewed. Most recent chest x-ray was in April and was unremarkable. Echo obtained this year has normal RVSP and no suggestion of pulmonary hypertension ASSESSMENT Dyspnea associated with seasonal weather change. 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 These findings were discussed with the patient. She was given information to schedule her ordered PFT data Will check respiratory allergen panel, eosinophil count. Refill of albuterol HFA provided Education was provided regarding the patient's inhaler regimen and proper use reviewed. Understanding was demonstrated. Will see back in clinic in 1 year or earlier if needed. The patient was encouraged to call me with any concerns prior. Thank you for allowing me to participate in your patient's care. Past Medical History: Diagnosis Date ADD (attention deficit disorder) Angina pectoris ([facility]) Depression DVT (deep vein thrombosis) in Heart murmur History of gestational diabetes History of pre-eclampsia History of delivery History of twin in prior Hypertension Morbid obesity ([facility]) Nephrotic syndrome 11/22/2022 PPH ( hemorrhage) Pulmonary emboli ([facility]) 10/2019 Request for sterilization 02/03/2020 Signed 02/03/2020 [place] Res[facility] SLE (systemic lupus erythematosus) ([facility]) 11/28/2022 Past Surgical History: Procedure Laterality Date REPEAT N/A 04/03/2019 Performed by Aquiles Abbott MD at [facility] OR REPEAT TUBAL LIGATION N/A 06/02/2020 Performed by [facility] at [facility] D AND C SUCTION N/A 03/18/2018 Performed by Kat Jeffers MD at [facility] Garlic, Ibuprofen, Keflex [cephalexin], and Sulfamethoxazole-trimethoprim Prior to Admission medications Medication Sig Start Date End Date Taking? Authorizing Provider acetaminophen (TylenoL) 325 mg tablet Take 2 tablets (650 mg total) by mouth every 6 (six) hours as needed for pain. 06/03/23 Yes Ermias Shi MD allopurinoL (ZYLOPRIM) 100 mg tablet Take 1 tablet (100 mg total) by mouth in the morning. Yes Not In System Ref Prov amitriptyline (ELAVIL) 25 mg tablet Take 1 tablet (25 mg) nightly Patient taking differently: Take 1 tablet (25 mg total) by mouth nightly. Take 1 tablet (25 mg) nightly 07/05/23 Yes Pasquale Alexander PA-C aspirin 81 mg Take 1 tablet (81 mg total) by mouth in the morning. Yes Not In System Ref Prov bumetanide (BUMEX) 2 mg tablet Take 1 tablet (2 mg total) by mouth 2 (two) times a day before meals. 12/28/22 Yes Chilo Bain MD carvediloL (COREG) 6.25 mg tablet Take 1 tablet (6.25 mg total) by mouth in the morning and 1 tablet (6.25 mg total) before bedtime. 07/12/23 Yes Jaylon Rosas MD cholecalciferol (VITAMIN D3) 50,000 units capsule Take 1 capsule (50,000 Units total) by mouth once a week. Yes Not In System Ref Prov cyanocobalamin 1000 MCG tablet Take 1 tablet (1,000 mcg total) by mouth in the morning. Yes Not In System Ref Prov DESCOVY 200-25 mg per tablet Take 1 tablet by mouth in the morning. Yes Not In System Ref Prov dicyclomine (BENTYL) 10 mg capsule Take 1 capsule (10 mg total) by mouth in the morning and 1 capsule (10 mg total) at noon and 1 capsule (10 mg total) in the evening and 1 capsule (10 mg total) before bedtime. Yes Not In System Ref Prov famotidine (PEPCID) 20 mg tablet Take 1 tablet (20 mg total) by mouth in the morning. 07/12/23 Yes Jaylon Rosas MD ferrous sulfate (FERROUSUL) 325 (65 FE) mg tablet Take 1 tablet (325 mg total) by mouth daily with breakfast. 06/15/20 Yes Mara Witt MD ketoconazole (NIZORAL) 2 % shampoo Apply 1 Application topically 2 (two) times a week. 03/09/23 Yes Not In System Ref Prov magnesium oxide (MAGOX) 400 mg tablet Take 1 tablet (400 mg total) by mouth in the morning and 1 tablet (400 mg total) before bedtime. 06/04/23 Yes Not In System Ref Prov methocarbamoL (ROBAXIN) 750 mg tablet Take 1 tablet (750 mg total) by mouth as needed for muscle spasms. Yes Not In System Ref Prov multivitamin (THERAGRAN) tablet Take 1 tablet by mouth in the morning. 03/29/23 Yes Not In System Ref Prov mycophenolate (CELLCEPT) 500 mg tablet 3 tab twice daily 07/31/23 Yes Sherman Calle MD potassium chloride (KLOR-CON M 20) 20 MEQ CR tablet Take 1 tablet (20 mEq total) by mouth in the morning and 1 tablet (20 mEq total) before bedtime. 12/21/22 Yes Chilo Bain MD predniSONE (DELTASONE) 20 mg tablet Take 1 tablet (20 mg total) by mouth in the morning. One tab daily. 07/31/23 Yes Sherman Calle MD PROVERA 10 mg tablet Take 1 tablet (10 mg total) by mouth in the morning. 03/20/23 Yes Not In System Ref Prov rivaroxaban (XARELTO) 20 mg tablet tablet Take 1 tablet (20 mg total) by mouth in the morning. 06/28/23 Yes Tuyet Warren MD ubrogepant (UBRELVY) 100 mg tablet Take 1 tablet just after onset of migraine. May repeat the dose after 2 hours if CURRY persists. Max of 2 doses per 24 hours. 07/05/23 Yes Pasquale Alexander PA-C voclosporin 7.9 mg capsule Take 23.7 mg by mouth in the morning and 23.7 mg before bedtime. 07/31/23 Yes Sherman Calle MD reports that she quit smoking about 3 years ago. Her smoking use included cigarettes. She smoked an average of 1 pack per day. She has never used smokeless tobacco. She reports that she does not currently use alcohol. She reports that she does not currently use drugs after having used the following drugs: Marijuana. Family History Problem Relation Age of Onset Stroke Mother Hypertension Mother Stroke Maternal Grandmother Kidney failure Maternal Grandmother Heart defect Son Stroke Maternal Aunt Hypertension Maternal Aunt REQUIRED DIALYSIS Review of Systems: All 11 systems have been reviewed and are negative except as mentioned in History of Present Illness. Exam: General: Alert, oriented, no acute distress, nontoxic, well nourished HEENT: Moist mucosal membranes, no oral lesions or oral thrush, trachea midline Chest: Clear to auscultation bilaterally without any crackles, wheezes, rhonchi. Normal AP diameter. Mild kyphosis CV: Regular rate regular rhythm Extremities: No edema, erythema, distal cyanosis, clubbing Integumentary: Warm and dry. Neuro: Cranial nerves 2-11 grossly intact. No lateralizing deficits. VITALS BP 116/74 Pulse 83 Ht 170.2 cm (5' 7 ) Wt 116.5 kg (256 lb 12.8 oz) SpO2 97% BMI 40.22 kg/m Cardiac Results: ECHO 2023 PACS Images ([facility]) Show images for Echo complete W/O contrast Interpretation Summary Left Ventricle: There is mild increased wall thickness/hypertrophy. Systolic function is normal with an ejection fraction of 60-65%. Study Information Study Details A complete echo was performed using complete 2D, color flow Doppler and spectral Doppler. The study had technical difficulties. The study was difficult due to patient's body habitus, poor acoustic windows and patient respiration. Myocardial Findings Left Ventricle Left ventricle appears normal in size. There is mild increased wall thickness/hypertrophy. Systolic function is normal with an ejection fraction of 60-65%. See wall score diagram for wall motion abnormalities. Lateral E' is 10.70 cm/s. Medial E' is 11.30 cm/s. Right Ventricle Right ventricular size appears normal. The right ventricular basal diameter is 35.0 mm. Left Atrium Left atrium is moderately dilated. Left atrium volume index is mildly increased. The left atrial volume index is 36.5 mL/m2. Right Atrium Right atrium is normal in size. The right atrial area is 18.4 cm2. Aortic Valve The aortic valve is trileaflet. There is no regurgitation or stenosis. Mitral Valve Mitral valve structure is normal. There is no regurgitation or stenosis. Tricuspid Valve Tricuspid valve appears to be normal. There is no regurgitation. Pulmonic Valve Pulmonic valve structure is grossly normal. There is trace regurgitation. There is no evidence of pulmonic valve stenosis. Ascending Aorta The aortic root is normal in size. IVC/SVC IVC appears normal. Pericardium There is no pericardial effusion. Wall Motion Wall Scoring Baseline Score Index: 1.00 The left ventricular wall motion is normal. Vitals Most recent update: 06/05/2023 1:39 PM BP 200/80 Ht 172.7 cm (5' 8 ) Wt 117 kg (258 lb) BSA 2.37 m 2D Measurements LV LV Diastolic Volume 119 mL LVIDs 3.5 cm IVS 1.2 cm PW 1.1 cm FS 38 % LVIDd 5.6 cm RA RA 2D Volume 21.7 mL/m2 Aorta LVOT diameter 2.5 cm Aortic root 3.7 cm RV TAPSE 2.95 cm RV diastolic dimension (basal) 35 mm RVID d 3.5 cm LA LA size 4.5 cm LA volume 86.5 cm3 LA Volume Index 36.5 mL/m2 Vena Cava Inferior Vena Cava Diameter 2.1 cm Congential Z-Score Measurements Measurement Z-score Normal Range LVIDd 5.60 cm -4.28 7.29 - 10.13 (cm) LVIDs 3.50 cm -3.12 4.22 - 6.39 (cm) Data set: [place] Z-score normal range: +/-1.65 BSA formula: [employer] Doppler Measurements AV AV valve area 5.67 cm2 AV peak skylar 145 cm/s AV peak gradient 8.41 mmHg AV mean gradient 5 mmHg AV VTI 23.8 cm Valve area - Index 2.4 LVOT peak skylar 1.69 m/s LVOT stroke volume 134.99 ml LVOT peak VTI 27.5 cm MV MV Peak E Skylar 85.3 cm/s MV Peak A Skylar 59.6 cm/s E/A ratio 1.43 E wave deceleration time 172 msec MV peak gradient 2.34 mmHg MV mean gradient 1 mmHg MV VTI 14.4 cm MV pressure 1/2 time 48 ms MV valve area p 1/2 method 4.58 cm2 MV valve area by continuity eq 9.37 TDI Measurements LV TDI 10.7 cm/s Septal MV TDI E' (medial) 11.3 cm/s Radiology Single view chest 05/15/23 History:chest pain Difficulty breathing, shortness of breath Comparison: 05/10/2023 Findings: Single portable view of the chest. Expiratory changes with bronchovascular crowding. Stable cardiomediastinal silhouette. No focal consolidation large effusion or pneumothorax. Impression: No evidence of acute cardiopulmonary process. CTA CHEST 07/26/20 istory: Chest pain. Pressure. Recently lost . History of pulmonary emboli. Exam/Technique: Imaging is performed with bolus IV contrast with 3-D and multiplanar reconstructions provided. 88 ml Omnipaque 350 was administered intravenously. . Automatic dose exposure reduction technique utilized. Comparison: 04/11/2020.. Findings: There is no evidence of pulmonary emboli. The thoracic aorta displays no significant abnormalities. No hilar or mediastinal mass lesions or other significant mediastinal abnormalities are displayed There is no evidence of infiltrates, noncalcified nodules, or other active pulmonary disease. No pleural abnormalities are demonstrated. Mild scoliosis of the thoracic spine with scattered lower thoracic spine Schmorl's nodes. IMPRESSION: No acute pulmonary embolism. No obvious acute dissection. Lung mancilla clear. Mild scoliosis of the thoracic spine with scattered Schmorl's nodes particularly in the lower thoracic spine. Dr. Maylin Portillo DO. [facility] Office: [phone] documented in this encounter [facility] 07-31-2023 History of Present illness Narrative Images from the original note were not included. [address] [id number] Date of Service: 07/31/2023 Subjective: Blanca Rudolph is a 32 y.o. female who presents today for evaluation Lupus. Patient is seen at the request of Billy Zelaya PA-C. This is a follow-up visit with this patient who is 32-year-old female patient presenting today as an established patient for follow-up of lupus nephritis was seen 1st time on 11/20/2022 last time the clinic was 07/04/2023 Patient illness started on with history of 06/2022 with joints pain,with swelling,skin rash (Hives),butterfly rash,hair loss,no raynaud's,no fever,headaches,weight loss,pleurisy, Patient was admitted to hospital for 12 days ,discharged 12/04/2022 with acute kidney injury subsequently she had, she had kidney biopsy, patient was started on steroid,on Prednisone 60 mg daily mycophenolate 6 tab daily She has 5 children,one miscarriage . 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 Nephrotic syndrome, class IV lupus nephritis. 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 Official report is pending. 2. Systemic lupus erythematosus 1. Clinically and with positive SANDER and low complement levels. 2. Manifested by recurrent fever, alopecia, oral ulcers, malar rash, arthritis, lymphadenopathy are the main features. 3. History of PE/DVT 1. Negative anticardiolipin antibodies last week in October 2022. 4. Positive syphilis serology. 1. Not likely related to anti phospholipid antibody. Remote history of sexually transmitted diseases Lab tests 01/15/2023 CBC normal, serum creatinine 1.53 urine protein creatinine ratio 6.49, came down from 10.61 on 12/28/2022, vitamin-D 16.2, urinalysis 300 protein, large hemoglobin Lab tests 01/23/2023 urinalysis, CBC normal, CMP creatinine 1.46 mg/dL, albumin 2.7, CRP and ESR normal, urinalysis protein 200 mg/dL, hemoglobin large, RBCs 52, urine protein creatinine ratio 2.92 significant improvement from December 01, 2022 was 17.9 Lab tests 2022 : Urine protein creatinine ratio 1.22 this is a 50% from previous number in January 26, 2023, serum creatinine 1.56 mg/dL this than previous, CBC normal. Recent lab 01/18/2024 protein creatinine ratio1,070 , has been in this level since March 2023 except for 1 time was elevated 3.040 in 05/03/2023 Serum creatinine 1.63 and has been in this range since end of November 2022. Current medications including CellCept 3 g daily as well as prednisone 20 mg daily. Today 07/31/2023 patient said that she has been doing fairly well except pressure has been high in more than 1 occasion.. Was seen by Nephrology and blood pressure medications were adjusted Her serum still high as well as PCR Review of Systems: Review of Systems Constitutional: Negative. HENT: Negative. Musculoskeletal: Negative. Skin: Negative. Current Outpatient Medications Medication Sig Dispense Refill acetaminophen (TylenoL) 325 mg tablet Take 2 tablets (650 mg total) by mouth every 6 (six) hours as needed for pain. 30 tablet 0 allopurinoL (ZYLOPRIM) 100 mg tablet Take 1 tablet (100 mg total) by mouth in the morning. amitriptyline (ELAVIL) 25 mg tablet Take 1 tablet (25 mg) nightly (Patient taking differently: Take 1 tablet (25 mg total) by mouth nightly. Take 1 tablet (25 mg) nightly) 30 tablet 5 aspirin 81 mg Take 1 tablet (81 mg total) by mouth in the morning. bumetanide (BUMEX) 2 mg tablet Take 1 tablet (2 mg total) by mouth 2 (two) times a day before meals. 90 tablet 0 carvediloL (COREG) 6.25 mg tablet Take 1 tablet (6.25 mg total) by mouth in the morning and 1 tablet (6.25 mg total) before bedtime. 60 tablet 11 cholecalciferol (VITAMIN D3) 50,000 units capsule Take 1 capsule (50,000 Units total) by mouth once a week. cyanocobalamin 1000 MCG tablet Take 1 tablet (1,000 mcg total) by mouth in the morning. DESCOVY 200-25 mg per tablet Take 1 tablet by mouth in the morning. dicyclomine (BENTYL) 10 mg capsule Take 1 capsule (10 mg total) by mouth in the morning and 1 capsule (10 mg total) at noon and 1 capsule (10 mg total) in the evening and 1 capsule (10 mg total) before bedtime. famotidine (PEPCID) 20 mg tablet Take 1 tablet (20 mg total) by mouth in the morning. 30 tablet 1 ferrous sulfate (FERROUSUL) 325 (65 FE) mg tablet Take 1 tablet (325 mg total) by mouth daily with breakfast. 30 tablet 6 ketoconazole (NIZORAL) 2 % shampoo Apply 1 Application topically 2 (two) times a week. magnesium oxide (MAGOX) 400 mg tablet Take 1 tablet (400 mg total) by mouth in the morning and 1 tablet (400 mg total) before bedtime. methocarbamoL (ROBAXIN) 750 mg tablet Take 1 tablet (750 mg total) by mouth as needed for muscle spasms. multivitamin (THERAGRAN) tablet Take 1 tablet by mouth in the morning. potassium chloride (KLOR-CON M 20) 20 MEQ CR tablet Take 1 tablet (20 mEq total) by mouth in the morning and 1 tablet (20 mEq total) before bedtime. 180 tablet 3 PROVERA 10 mg tablet Take 1 tablet (10 mg total) by mouth in the morning. rivaroxaban (XARELTO) 20 mg tablet tablet Take 1 tablet (20 mg total) by mouth in the morning. 90 tablet 3 ubrogepant (UBRELVY) 100 mg tablet Take 1 tablet just after onset of migraine. May repeat the dose after 2 hours if CURRY persists. Max of 2 doses per 24 hours. 16 tablet 5 mycophenolate (CELLCEPT) 500 mg tablet 3 tab twice daily 180 tablet 3 predniSONE (DELTASONE) 20 mg tablet Take 1 tablet (20 mg total) by mouth in the morning. One tab daily. 30 tablet 1 voclosporin 7.9 mg capsule Take 23.7 mg by mouth in the morning and 23.7 mg before bedtime. 60 capsule 3 No current facility-administered medications for this visit. Physical Exam: Physical Exam Vitals and nursing note reviewed. Constitutional: General: She is not in acute distress. Appearance: She is well-developed. She is not diaphoretic. HENT: Head: Normocephalic and atraumatic. Right Ear: External ear normal. Left Ear: External ear normal. Nose: Nose normal. Eyes: Conjunctiva/sclera: Conjunctivae normal. Pupils: Pupils are equal, round, and reactive to light. Neck: Thyroid: No thyromegaly. Cardiovascular: Rate and Rhythm: Normal rate and regular rhythm. Heart sounds: Normal heart sounds. No murmur heard. No friction rub. Pulmonary: Effort: Pulmonary effort is normal. No respiratory distress. Breath sounds: No stridor. No wheezing or rales. Abdominal: Palpations: Abdomen is soft. Musculoskeletal: General: No tenderness or deformity. Normal range of motion. Cervical back: Normal range of motion and neck supple. Left lower leg: No edema. Comments: Hands exams no synovitis Skin: General: Skin is warm and dry. Findings: No erythema or rash. Neurological: Mental Status: She is alert and oriented to person, place, and time. Cranial Nerves: No cranial nerve deficit. Coordination: Coordination normal. Psychiatric: Behavior: Behavior normal. ROSAS-28 (If Applicable) There is currently no information documented on the homunculus. Go to the Rheumatology activity and complete the homunculus joint exam. ROSAS-28 (CRP): -- ROSAS-28 (ESR): -- Tender (ROSAS-28): -- Swollen (ROSAS-28): -- BP 140/78 Resp 18 Ht 172.7 cm (5' 7.99 ) Wt 117 kg (258 lb) BMI 39.24 kg/m : reviewed Labs and Imaging: reviewed and discussed with the patient during the visit.I Lab Results Component Value Date WBC 8.5 07/26/2023 HGB 13.0 07/26/2023 HCT 37.7 07/26/2023 MCV 91 07/26/2023 CRP 0.4 07/26/2023 C3 140 07/26/2023 C4 29 07/26/2023 GFR >60 12/07/2021 GFR >60 12/07/2021 AST 11 07/26/2023 AST 22 06/03/2023 Imaging: Assessment and Plan: Blanca Rudolph is a 32 y.o. female patient with: 1. Stage IV lupus nephritis (WHO) ([facility]) - predniSONE (DELTASONE) 20 mg tablet; Take 1 tablet (20 mg total) by mouth in the morning. One tab daily. Dispense: 30 tablet; Refill: 1 - mycophenolate (CELLCEPT) 500 mg tablet; 3 tab twice daily Dispense: 180 tablet; Refill: 3 - Creatinine includes GFR, serum; Future - Urinalysis; Future - Protein creat ratio; Future - Creatinine includes GFR, serum; Future - voclosporin 7.9 mg capsule; Take 23.7 mg by mouth in the morning and 23.7 mg before bedtime. Dispense: 60 capsule; Refill: 3 2. Systemic lupus erythematosus, unspecified SLE type, unspecified organ involvement status ([facility]) - predniSONE (DELTASONE) 20 mg tablet; Take 1 tablet (20 mg total) by mouth in the morning. One tab daily. Dispense: 30 tablet; Refill: 1 - mycophenolate (CELLCEPT) 500 mg tablet; 3 tab twice daily Dispense: 180 tablet; Refill: 3 3. Encounter for nursing home use of mycophenolate mofetil - mycophenolate (CELLCEPT) 500 mg tablet; 3 tab twice daily Dispense: 180 tablet; Refill: 3 4. BMI 39.0-39.9,adult - Ambulatory referral to [facility] ([facility]); Future At this point patient continued to have elevated stable serum creatinine in the range 1.6 mg/dL as well as protein creatinine ratio in the range of 1 which has been stable over the past several. Months Patient response to current medications has stopped at this level and she has not been having progressive improvement. Her blood pressure today is 140/90. Patient is on 6 tablets mycophenolate and currently on 20 mg prednisone daily. Would like to achieve complete proteinuria response as protein excretion ?0.33 g/day and serum creatinine <1.2 mg/dL At this point adding voclosporin 23.7 mg orally twice daily lupus nephritis stage IV based on kidney biopsy done late October 2022 Urine Protein creatinine ratio was 9.47 on 11/20/2022 SANDER 1:160 Anti cardiolipin antibodies as well as beta 2 glycoprotein antibody 3 times negative in 2018 and October 2022 C3 79 mg/dL, C4 < 8 mg/dL low on 11/17/2022 CBC twice low white counts 3.8 and 3.4 in October 2022, Anti DNA by crithidia negative Direct Taz positive, indirect Taz negative Check serum creatinine in 2 weeks Re-evaluate after 1 month. Advised patient that she needs her blood pressure to be tightly controlled by This note was created with the assistance of a speech recognition program. While intending to generate a timely document that accurately reflects the content of the visit, no guarantee can be provided that every grammatical or spelling mistake has been or will be identified or corrected. Thank you for your understanding. [facility] Rheumatology Dr. Sherman Calle MD [address] [facility] [address], [address] [place] [address] Office: [phone] documented in this encounter [facility] 07-16-2023 Miscellaneous Notes Patient called in requested office note be faxed to [phone] note faxed per her request documented in this encounter [facility] 07-16-2023 Telephone encounter Note Patient called in requested office note be faxed to [phone] note faxed per her request [facility] 07-16-2023 Miscellaneous Notes Pt is not feeling well. Wondering if she was to take medication for it she would be able to take anything other then tylenol. Son tested positive for Flu A. She tested negative at this time. I do not know what kind sickness she is complaining of however she can try Tylenol if that does not work then she can go to ER. PT INFORMED. documented in this encounter [facility] 07-16-2023 Telephone encounter Note Pt is not feeling well. Wondering if she was to take medication for it she would be able to take anything other then tylenol. Son tested positive for Flu A. She tested negative at this time. [facility] 07-16-2023 Telephone encounter Note I do not know what kind sickness she is complaining of however she can try Tylenol if that does not work then she can go to ER. [facility] 07-16-2023 Telephone encounter Note PT INFORMED. [facility] 07-16-2023 Miscellaneous Notes Patient called in stating that she is sick and she would like to Zurtec, she is questioning if she would be able to take it along with her Ubrelvy. Best contact for patient [phone] She may take Zyrtec and Ubrelvy together. - [facility] Patient informed and voiced understanding. documented in this encounter [facility] 07-16-2023 Telephone encounter Note Patient called in stating that she is sick and she would like to [place], she is questioning if she would be able to take it along with her Ubrelvy. Best contact for patient [phone] [facility] 07-16-2023 Telephone encounter Note She may take Zyrtec and Ubrelvy together. - [facility] 07-16-2023 Telephone encounter Note Patient informed and voiced understanding. [facility] 07-13-2023 Miscellaneous Notes Fax received from [facility]. A prior authorization is needed for the medication Ubrelvy. Contact: RN has completed PA on CMM. Simons: [id number] documented in this encounter [facility] 07-13-2023 Telephone encounter Note Fax received from [facility]. A prior authorization is needed for the medication Ubrelvy. Contact: [facility] 07-13-2023 Telephone encounter Note RN has completed PA on CMM. Simons: [id number] [facility] 07-12-2023 History of Present illness Narrative Images from the original note were not included. Date of Service: 07/12/23 PCP: Billy Zelaya PA-C Assessment 1. 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 Also receiving atovaquone for PJP prophylaxis. Immunosuppressive therapy being managed by Dr. Calle/rheumatology. 2. Hypertension: Will stop the metoprolol put on Coreg instead for further BP lowering. 3. History of GERD: Given issues with hypomagnesemia and potential for renal damage, will taper off the omeprazole and use H2 edgar instead. 4. Hypophosphatemia: Previously had issues with hyperphosphatemia, phosphorus levels are now on the low side. I will discontinue Renvela and reassess 5. Bone/mineral metabolism: PTH level elevated at 107, has evidence of vitamin-D deficiency and is on supplementation. 6. Volume status: Appears to be near euvolemic Plan 1. Discontinue metoprolol and start Coreg 6.25 mg b.I.d. 2. Keep a BP log at home 3. Continue immunosuppressive therapy for lupus per Dr. Rhodes 4. Discontinue omeprazole/taper off and start Pepcid instead 5. Discontinue Renvela 6. Return to clinic in 3 months History of Present Illness Blanca Rudolph is a 32 y.o. female, who is following with us for management of lupus nephritis. She has known history of renal biopsy-proven class 4/diffuse proliferative lupus nephritis and is currently on immunosuppressive therapy with CellCept and steroids per [facility] protocol. She is primarily being managed by Dr. Calle in the Rheumatology Department. She has intermittent lupus flare/joint pains but otherwise is asymptomatic. She denies having any hematuria, dysuria, flank pain or trouble passing urine. As noted above, she has been on CellCept, prednisone and atovaquone for management of lupus nephritis since October of 2022. She previously has had acute kidney injury as well as nephrotic range proteinuria but her numbers have improved with immunosuppressive therapy. Most recent creatinine value was at 1.6 mg/dL which is close to prior baseline and urinalysis from May 2023 showed 100 mg/dL of protein, 126 RBCs and specific gravity 1.017. Urine protein to creatinine ratio was down to 0.7 gram/gram. Prior urine protein to creatinine ratio was 1.9 gram/gram from May 2023. She has had issues with uncontrolled blood pressures with systolic BP running for the most part 130 to 140s. No significant peripheral edema on exam. Problem List Acute kidney injury and nephrotic syndrome with Renal biopsy from 11/27/2022 reported as Class 4/diffuse proliferative lupus nephritis. Light microscopy showed 2 out of 18 glomeruli were globally sclerotic. There was evidence of diffuse endocapillary proliferation, segmental glomerular basement membrane duplication as well as subendothelial wire loop deposits. 3 glomeruli showed segmental necrosis of the glomerular tuft and 5 showed segmental Karyorrhexis. There was less than 5% fibrosis affecting the sampled cortex. Immunofluorescence showed a full house pattern. Electron microscopy is pending. Renal ultrasound from 11/22/2022 showed right kidney 12.2 cm and left kidney 12.2 cm with no evidence of hydronephrosis. Although SANDER was positive in September 2022, repeat SANDER level was negative in October 2022, negative double-stranded DNA, negative anti Salter antibody. C3/C4 were low at 73 and less than 8. Anti MPO and anti PR3 antibody levels were negative, anti-GBM was negative, rheumatoid factor negative. SPEP showed no monoclonal bands. Urinalysis from October of 2022 shows more than 300 mg/dL of protein, no significant RBCs and specific gravity 1.015. Nephrotic range proteinuria at 16.1 gram/gram. Systemic lupus erythematosus with class 4 lupus nephritis noted on kidney biopsy being treated with CellCept and steroids per [facility] protocol. Systemic lupus erythematosus manifested by recurrent fever, alopecia, oral ulcers, malar rash, arthritis, lymphadenopathy and lupus nephritis. Hypertension Hyperuricemia History of deep vein thrombosis during with pulmonary emboli on chronic anticoagulation with Xarelto. History of preeclampsia Obesity History of hemorrhage Attention deficit disorder Depression Anemia 2D echo October 2019 shows EF 55%, grade 2 diastolic dysfunction and normal right ventricular systolic function. No significant valvular dysfunction. Medical, Surgical, Family & Social History Medical History: Past Medical History: Diagnosis Date ADD (attention deficit disorder) Angina pectoris ([facility]) Depression DVT (deep vein thrombosis) in Heart murmur History of gestational diabetes History of pre-eclampsia History of delivery History of twin in prior Hypertension Morbid obesity ([facility]) Nephrotic syndrome 11/22/2022 PPH ( hemorrhage) Pulmonary emboli ([facility]) 10/2019 Request for sterilization 02/03/2020 Signed 02/03/2020 [place] Resident SLE (systemic lupus erythematosus) ([facility]) 11/28/2022 Surgical History: Past Surgical History: Procedure Laterality Date REPEAT N/A 04/03/2019 Performed by Aquiles Abbott MD at [facility] OR REPEAT TUBAL LIGATION N/A 06/02/2020 Performed by John Person MD at [facility] OR D AND C SUCTION N/A 03/18/2018 Performed by Kat Jeffers MD at [facility] Social History: Social History Socioeconomic History Marital status: Single Spouse name: Not on file Number of children: Not on file Years of education: Not on file Highest education level: Not on file Occupational History Not on file Tobacco Use Smoking status: Former Packs/day: 0 Types: Cigarettes Smokeless tobacco: Never Vaping Use Vaping Use: Never used Substance and Sexual Activity Alcohol use: Not Currently Drug use: Yes Types: Marijuana Comment: every day Sexual activity: Yes Other Topics Concern Caffeine Use No Social History Narrative Not on file Social Determinants of Health Financial Resource Strain: Low Risk (12/18/2022) Overall Financial Resource Strain (CARDIA) Difficulty of Paying Living Expenses: Not hard at all Food Insecurity: No Food Insecurity (07/05/2023) Hunger Screening Food Insecurity - Worry: Never True Food Insecurity - Inability: Never True Transportation Needs: No Transportation Needs (06/19/2023) PRAPARE - Transportation Lack of Transportation (Medical): No Lack of Transportation (Non-Medical): No Physical Activity: Insufficiently Active (12/18/2022) Exercise Vital Sign Days of Exercise per Week: 7 days Minutes of Exercise per Session: 20 min Stress: No Stress Concern Present (12/18/2022) [employer] - Occupational Stress Questionnaire Feeling of Stress : Only a little Social Connections: Moderately Integrated (12/18/2022) Social Connection and Isolation Panel [NHANES] Frequency of Communication with Friends and Family: More than three times a week Frequency of Social Gatherings with Friends and Family: More than three times a week Attends Quaker Services: More than 4 times per year Active Member of Clubs or Organizations: Yes Attends Club or Organization Meetings: More than 4 times per year Marital Status: Never Interpersonal Safety: Not At Risk (06/19/2023) Humiliation, Afraid, Rape, and Kick questionnaire Fear of Current or Ex-Partner: No Emotionally Abused: No Physically Abused: No Sexually Abused: No Housing Instability: Low Risk (06/19/2023) Housing Instability Housing Instability: No Family History: Family History Problem Relation Age of Onset Stroke Mother Hypertension Mother Stroke Maternal Grandmother Kidney failure Maternal Grandmother Heart defect Son Stroke Maternal Aunt Hypertension Maternal Aunt REQUIRED DIALYSIS Allergies & Medications Allergies: Allergies Allergen Reactions Garlic Ibuprofen Other Reaction(s): medication interference Keflex [Cephalexin] Sulfamethoxazole-Trimethoprim Rash ??? pt says she gets 'heat rash' often. however developed 'worse' rash than usual shortly after taking bactrim. has taken previously with NO reaction. Current Meds: Current Outpatient Medications Medication Sig Dispense Refill acetaminophen (TylenoL) 325 mg tablet Take 2 tablets (650 mg total) by mouth every 6 (six) hours as needed for pain. 30 tablet 0 allopurinoL (ZYLOPRIM) 100 mg tablet Take 1 tablet (100 mg total) by mouth in the morning. amitriptyline (ELAVIL) 25 mg tablet Take 1 tablet (25 mg) nightly (Patient taking differently: Take 1 tablet (25 mg total) by mouth nightly. Take 1 tablet (25 mg) nightly) 30 tablet 5 aspirin 81 mg Take 1 tablet (81 mg total) by mouth in the morning. bumetanide (BUMEX) 2 mg tablet Take 1 tablet (2 mg total) by mouth 2 (two) times a day before meals. 90 tablet 0 cholecalciferol (VITAMIN D3) 50,000 units capsule Take 1 capsule (50,000 Units total) by mouth once a week. cyanocobalamin 1000 MCG tablet Take 1 tablet (1,000 mcg total) by mouth in the morning. DESCOVY 200-25 mg per tablet Take 1 tablet by mouth in the morning. dicyclomine (BENTYL) 10 mg capsule Take 1 capsule (10 mg total) by mouth in the morning and 1 capsule (10 mg total) at noon and 1 capsule (10 mg total) in the evening and 1 capsule (10 mg total) before bedtime. ferrous sulfate (FERROUSUL) 325 (65 FE) mg tablet Take 1 tablet (325 mg total) by mouth daily with breakfast. 30 tablet 6 ketoconazole (NIZORAL) 2 % shampoo Apply 1 Application topically 2 (two) times a week. magnesium oxide (MAGOX) 400 mg tablet Take 1 tablet (400 mg total) by mouth in the morning and 1 tablet (400 mg total) before bedtime. methocarbamoL (ROBAXIN) 750 mg tablet Take 1 tablet (750 mg total) by mouth as needed for muscle spasms. metoprolol tartrate (LOPRESSOR) 25 mg tablet Take 1 tablet (25 mg total) by mouth in the morning and 1 tablet (25 mg total) before bedtime. multivitamin (THERAGRAN) tablet Take 1 tablet by mouth in the morning. mycophenolate (CELLCEPT) 500 mg tablet 3 tab twice daily (Patient taking differently: Take 1 tablet (500 mg total) by mouth in the morning and 1 tablet (500 mg total) before bedtime. 3 tab twice daily.) 180 tablet 3 omeprazole (PriLOSEC) 20 mg capsule Take 1 capsule (20 mg total) by mouth every morning before breakfast. potassium chloride (KLOR-CON M 20) 20 MEQ CR tablet Take 1 tablet (20 mEq total) by mouth in the morning and 1 tablet (20 mEq total) before bedtime. 180 tablet 3 predniSONE (DELTASONE) 20 mg tablet Take 1 tablet (20 mg total) by mouth in the morning. One tab daily. 30 tablet 1 PROVERA 10 mg tablet Take 1 tablet (10 mg total) by mouth in the morning. rivaroxaban (XARELTO) 20 mg tablet tablet Take 1 tablet (20 mg total) by mouth in the morning. 90 tablet 3 sevelamer (RENVELA) 800 mg tablet Take 2 tablets (1,600 mg total) by mouth in the morning and 2 tablets (1,600 mg total) at noon and 2 tablets (1,600 mg total) in the evening. Take with meals. ubrogepant (UBRELVY) 100 mg tablet Take 1 tablet just after onset of migraine. May repeat the dose after 2 hours if CURRY persists. Max of 2 doses per 24 hours. 16 tablet 5 enoxaparin (LOVENOX) 40 mg/0.4 mL syringe Inject 0.4 mL (40 mg total) under the skin in the morning for 10 days. (Patient not taking: Reported on 07/05/2023) 4 mL 0 No current facility-administered medications for this visit. Review of Systems Constitutional: Negative for fever, chills and fatigue HENT: Negative Eyes: Negative Respiratory: Negative for cough and shortness of breath. Cardiovascular: Negative for chest pain and palpitations. Gastrointestinal: Negative for nausea, vomiting, abdominal pain and diarrhea. Endocrine: Negative. Genitourinary: Negative for dysuria, urgency, frequency, hematuria, flank pain, decreased urine volume and difficulty urinating. Musculoskeletal: Negative for myalgias, joint swelling and arthritis. Skin: Negative for rash. Allergy/immunology: Negative. Neurological: Negative for lightheadedness. Hematological: Negative. Psychiatric/Behavioral: Negative. Physical Exam Vital Signs: Vitals: 07/12/23 0921 07/12/23 0927 BP: 136/83 139/88 BP Site: Left Forearm Left Forearm BP Postition: Sitting Standing BP CUFF SIZE: M (9-13 inches) M (9-13 inches) Pulse: 72 81 SpO2: 97% Weight: 118 kg (260 lb 3.2 oz) Height: 172.7 cm (5' 8 ) BMI: Body mass index is 39.56 kg/m . General appearance: alert in no apparent distress. Psychiatric: Oriented to place, time and person HEENT: atraumatic, supple, moist oral mucosa, no JVD Cardiovascular: normal S1-S2 Respiratory: No respiratory distress with no use of accessory muscles. Clear to auscultation bilaterally with no wheezes or crackles Abdomen: soft, no tenderness, no guarding, positive bowel sounds and no hepato or splenomegaly Vascular: adequate pulses and no carotid bruits. Musculoskeletal: no joint swelling or tenderness. Neurologic: No focal deficit in upper or lower extremities Lymphatic: no cervical or axillary lymphadenopathy. Extremity: No edema Laboratory Studies Chemistry: Lab Results Component Value Date SODIUM 140 06/28/2023 K 4.0 06/28/2023 CL 99 06/28/2023 CO2 33 (H) 06/28/2023 ANIONGAP 8 06/28/2023 BUN 25 (H) 06/28/2023 CREATININE 1.63 (H) 06/28/2023 GFR >60 12/07/2021 GFR >60 12/07/2021 CALCIUM 8.6 06/28/2023 MG 1.8 06/28/2023 PHOSPHORUS 2.8 06/28/2023 IONIZEDCALC 4.3 (L) 12/04/2022 Lab Results Component Value Date TOTALPROTEI 6.3 06/28/2023 ALBUMIN 3.6 06/28/2023 AST 11 06/28/2023 ALT 12 06/28/2023 BILIRUBIN Negative 06/28/2023 BILIRUBIN 0.5 06/28/2023 ALKPHOS 44 06/28/2023 Hematology: Lab Results Component Value Date WBC 8.9 06/28/2023 HGB 12.5 06/28/2023 HCT 36.5 06/28/2023 PLT 277 06/28/2023 Anemia Studies: Lab Results Component Value Date IRONSAT 29 11/22/2022 FERRITIN 317 (H) 11/22/2022 [id number] 512 11/22/2022 FOLATE >25.0 11/22/2022 Mineral and Bone Labs: Lab Results Component Value Date CALCIUM 8.6 06/28/2023 PHOSPHORUS 2.8 06/28/2023 VITD25 29.0 (L) 06/28/2023 PTH 107 (H) 06/28/2023 Urine Studies: Lab Results Component Value Date COLOR YELLOW 06/28/2023 TURBIDITY CLEAR 06/28/2023 SPECIFICGRA 1.017 06/28/2023 NITRITE Negative 06/28/2023 PHURINE 6.0 06/28/2023 LEUKOCYTE Negative 06/28/2023 PROTEIN 100 (A) 06/28/2023 KETONES Negative 06/28/2023 UROBILINOGEN <1.1 06/28/2023 BLOODHGB Large (A) 06/28/2023 Lab Results Component Value Date UPROCRTRAT 0.70 (H) 06/28/2023 UPROCRTRAT 0.71 (H) 06/28/2023 ALBCREATRA 5,414.9 (H) 11/22/2022 Immunology Profile Lab Results Component Value Date PROTELECTR SEE SEPARATE REPORT 11/22/2022 SEDRATE 2 06/28/2023 CRP 0.2 06/28/2023 ANASCREEN Negative 11/22/2022 C3 124 05/03/2023 C4 21 05/03/2023 ANCA See Below 11/22/2022 ANTIGLOMERU <0.2 11/22/2022 Lab Results Component Value Date HEPAIGM Non-Reactive 11/22/2022 HEPBIGM Negative 11/22/2022 Imaging Echocardiogram: Echo complete W/O contrast Result Date: 06/05/2023 Left Ventricle: There is mild increased wall thickness/hypertrophy. Systolic function is normal with an ejection fraction of 60-65%. Thank you Billy Zelaya PA-C for the allowing us to continue participant in the care of this patient. Please contact me at [phone] (Office) or [phone] (Answering service) with any questions. Jaylon Rosas MD [facility] This note was created with the assistance of a speech-recognition program. Although the intention is to generate a document that actually reflects the content of the visit, no guarantees can be provided that every mistake has been identified and corrected by editing. documented in this encounter [facility] 07-06-2023 Note Spoke with patient. No new symptoms. I advised patient that she may be asked to get a repeat. She has a few upcoming appointments at [place] and could get drawn likely at the same time. [facility] 07-06-2023 Note 07/06/2023 Subjective Patient ID: Blanca Rudolph is a 32 y.o. female who presents for Health Maintenance and Exposure to HIV. HPI This is a [id number] patient on Descovy presenting to [facility] for a 3 months follow-up visit for preexposure prophylaxis to prevent HIV infection (PReP). Patient was started on Descovy on 11/2022. The patient reports tolerance and compliance to ART without adverse reaction. Of note, the patient was found to have a RPR titer of 1:1024 on 11/22/2022 during her autoimmune work-up at [facility] for SLE and nephrotic syndrome. 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 Patient is established with Rheumatology on immunosuppressant. Within the last 3 month, the patient reports fatigue,headache, night-sweats, muscle aches that she attributes to Lupus. She denies fever, rash, sore-throat, swollen glands. The patient denies liver disease, patient has hx of tubal ligation, date of LMP was 06/22/2023 for one day, states she was off Provera, she has since resumed on Provera for heavy bleeding. Patient denies [...] medical history. 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 dicyclomine (Bentyl) 10 mg capsule [] emtricitabine-tenofovir alafen (Descovy) 200-25 mg tablet Take 1 tablet by mouth in the morning. 30 tablet 2 etonogestrel-eluting contraceptive (Nexplanon) 68 mg contraceptive implant [...] Occupational History None Tobacco Use Smoking status: F (more content not included)... [facility] 07-06-2023 Miscellaneous Notes Patient is calling in to inform us of some more family history. Patient stated that her aunt and mother also have high blood pressure, and her grandmother as well had kidney issues and was on dialysis CHART UPDATED documented in this encounter [facility] 07-06-2023 Telephone encounter Note Patient is calling in to inform us of some more family history. Patient stated that her aunt and mother also have high blood pressure, and her grandmother as well had kidney issues and was on dialysis [facility] 07-06-2023 Telephone encounter Note CHART UPDATED [facility] 07-05-2023 History of Present illness Narrative [facility] Neurology Office Note 07/05/2023 10:19 AM Patient info: Blanca Rudolph is a 32 y.o. female Account No.: [id number] Acct: : 1990 PCP: Billy Zelaya PA-C Chief Complaint: Patient, 32 year old left hand dominant female, presents today for initial Neurological evaluation regarding headaches. Referred by Billy Zelaya PA-C Blanca is present in the office today herself. HPI: Headache Hx: Onset of headaches was years ago. CURRY's initially worsened approximately 8 months ago (October,), and then worsened again approximately 2 months ago (April,). Headache Characteristics: - Current Frequency: daily - Timing: onset varies - Duration: most of the day - Location: left frontal with radiation through the left temporoparietal region to the left occipital region, also sometimes into the right occipital region - Quality: pressure, pounding - Intensity: ranges from 6-10/10 - Aura: (-) - Associated sxs.: photophobia, phonophobia, some dizziness - Autonomic sxs.: No associated lacrimation, asymmetric pupil dilation/constriction, scleral injection, ptosis, lateralized nasal congestion, or lateralized forehead sweating - Complicated sxs.: No associated loss of consciousness, confusional episodes/delirium, dysarthria, aphasia, paresthesias, or focal/lateralized weakness Contributing Factors: (-) hx of significant head injury/trauma: (-) hx of FIELD [employer]CH[employer]ICIAN infection: (-) hx of stroke or cerebrovascular malformation: (-) hx of intracranial mass/tumor/cyst/malformation: () hx of anxiety/depression/mood disorder: Caffeine Consumption: - rare Family Hx: (+/-) known family member/s with hx of recurrent CURRY/migraines: (-) known family member/s with hx of cerebral aneurysm: (+) known family member/s with hx of intracranial mass/tumor/cyst/malformation: Maternal Aunt Dizziness with neck flexion/extension: No Difficulty with gait or recurrent falls: No Blanca does wear corrective eye lenses. Most recent eye exam was within the last few weeks. Experiences blurred vision periodically, as well as cloudy vision at times, L > R. Blanca follows with Rheumatology. She is being treated for SLE, as well as Lupus Nephritis (Nephrology), and Fibromyalgia. Medications include Cellcept, Prednisone, and Amitriptyline. Blanca also has HTN that has seemingly been quite labile. Today's BP is 134/83; the recorder BP yesterday was 128/78; her BP when checked by Dr. Calle yesterday was 160/110. Medication include Metoprolol and Bumex. Cardiac Stress test and CTA Coronary Arteries performed in May did not show evidence of obstructive coronary artery disease. Blanca has a hx of DVT and PE from 2019. She is on anticoagulation with Xarelto and ASA 81 mg daily. Current preventative CURRY/migraine medication: Metoprolol, Magnesium Oxide, Amitriptyline Preventative med/s previously tried include: Preventative med/s not indicated include: Current abortive/symptomatic relief CURRY/migraine medication: Tylenol Abortive/Symptomatic relief med/s previously tried include: Abortive/Symptomatic relief med/s not indicated include: Ibuprofen and Naproxen Previous Studies: 10/25/21: CT Head without contrast - No acute intracranial abnormalities Past Medical Hx: See EMR Social Hx: Tobacco: --- ETOH: --- Illicit substances: --- Family Hx: Mother: --- Father: --- Siblings: --- Surgical Hx: See EMR Allergies: See EMR Review of Systems: Constitutional: Negative for fever, chills, sweats, or unintentional weight loss Eyes: - as noted in the HPI HENT: Negative Cardiovascular: Negative for chest pain and palpitations Respiratory: Negative for cough and shortness of breath Gastrointestinal: Negative for nausea, vomiting, abdominal pain and diarrhea Genitourinary: Negative for dysuria, urgency, frequency, or hematuria Musculoskeletal: - as noted in the HPI Skin: Negative for skin rash Neurological: - as noted in the HPI Psychiatric/Behavioral: Negative Endocrine: Negative Hem/Onc: - as noted in the HPI Allergy/immunology: Negative The remainder of ROS is negative Vitals: BP: 134/83 HR: 72 Weight: 116.1 kg Physical Exam: General: well groomed, appears stated age Neurological Exam: The patient is awake, alert, and attentive Speech and language are normal Normal affect, with normal orientation and cognition EOMI, PERRL, No gross visual field deficits Face is with mild amount of chronic left side weakness, Tongue protrudes midline Palate rises symmetrically with uvula midline Shoulder shrug is strong bilaterally Nose to finger testing is without dysmetria Upper Extremity Drift is (-) Fine motor skills are approximately equal in each hand Tremor: (+) left hand with posture > kinetic movement (present since January,) Sensation is intact and symmetric in the extremities bilaterally DTR's are 1+ throughout Lopez's sign (-) bilaterally Strength throughout the Upper Extremities is 5/5 Strength throughout the Lower Extremities is 5/5 Muscle Tone throughout the extremities is normal Romberg is (-) Gait is steady with normal base, normal stride and bilateral arm swing ASSESSMENT: Blanca is a 32 year old left hand dominant female with a hx of ADHD, DVT/PE, obesity, fibromyalgia, HTN, and SLE with lupus nephritis who gets daily headache, often with features of migraine without aura. There has been a significant change in headache characteristics over the past 8 months, including some noticeable paroxysmal changes in vision, more so out of her left eye than the right. She has also developed a tremor in her left hand. PLAN: Will order a Brain MRI without contrast to assess for intracranial pathology Increase Amitriptyline to 25 mg HS Start Ubrelvy 100 mg for abortive/symptomatic migraine relief. Avoiding triptans at this time secondary to labile HTN CURRY log is recommended Identification and avoidance of personal CURRY/migraine triggers discussed Trying to stay on a regular sleep and eating schedule, staying well hydrated, and working on stress management to help reduce CURRY/migraine frequency discussed Monitor the tremor Follow up in the office in 2 months in the [place] office Electronically Signed by: Pasquale Alexander PA-C 07/05/23 1213 documented in this encounter [facility] 07-05-2023 History of Present illness Narrative Patient had video visit to Continue Xarelto 20 mg daily. Follow-up in 1 year with [facility] CMP prior to visit. Dr. Warren will leave instruction for preop preparation for patient's oophorectomy surgery August 15. documented in this encounter [facility] 07-05-2023 History of Present illness Narrative Images from the original note were not included. [facility] visit per patient's request. 07/05/23 Blanca Rudolph is a 32 y.o. year old female seen today in the oncology clinic. No chief complaint on file. Tele-Oncology Telemedicine Consult Note Consent Statement: I discussed risks, benefits, and alternatives of a real-time synchronous audiovisual consultation with the patient (and any accompanying persons) including the risks that the patient's personal health details and medical records will be discussed over real-time, synchronous, interactive video/audio/telecommunication technology, the visit will not be recorded without the express consent of both the provider and the patient, and that there are some limitations compared to [id number] evaluations. We elected to proceed. History of Present Illness: Ms. Rudolph is a 32 y.o. female history of recurrent DVT and pulmonary embolism, she is currently 17 weeks . She was found to have left lower extremity DVT and very small pulmonary emboli 10/2019. Her doppler showed: Tibioperoneal DVT on the left of undetermined age. Right leg normal. She had a right lower extremity DVT 1 year ago when she was on that occasion and took Lovenox shots during her entire and 6 weeks . Of note her son takes Lovenox injections for hypercoagulable state associated with Kawasaki disease. She is referred to Hematology Clinic for further evaluation, she is planning to have it for this . Her due day is around June 03 2020, she underwent an uneventful . Currently patient is on Xarelto 20 mg daily since June 2020. She underwent tubal ligation. Interval history: The patient was last seen about 1 year ago. Currently she is on Xarelto 20 mg daily and compliant with her treatment. No significant bleeding or bruising. She is also taking baby aspirin for her condition. The patient is able to tolerate oral iron supplement daily. Her vaginal bleeding is not very happy during the period. No shortness of breath. Denies any bleeding in the stool or urine. She experience recurrent abdominal pain and diarrhea and was found to have gallstone October 2021. She underwent laparoscopic cholecystectomy 07/11/2022, plan for oophorectomy in 08/16/23. Past Medical History: Diagnosis Date ADD (attention deficit disorder) Angina pectoris ([facility]) Depression DVT (deep vein thrombosis) in Heart murmur History of gestational diabetes History of pre-eclampsia History of delivery History of twin in prior Hypertension Morbid obesity ([facility]) Nephrotic syndrome 11/22/2022 PPH ( hemorrhage) Pulmonary emboli ([facility]) 10/2019 Request for sterilization 02/03/2020 Signed 02/03/2020 [place] Resident SLE (systemic lupus erythematosus) ([facility]) 11/28/2022 Past Surgical History: Procedure Laterality Date REPEAT N/A 04/03/2019 Performed by Aquiles Abbott MD at [facility] OR REPEAT TUBAL LIGATION N/A 06/02/2020 Performed by John Person MD at [facility] OR D AND C SUCTION N/A 03/18/2018 Performed by Kat Jeffers MD at [facility] Family History Problem Relation Age of Onset Stroke Mother Stroke Maternal Grandmother Stroke Maternal Aunt Heart defect Son Social History Socioeconomic History Marital status: Single Spouse name: Not on file Number of children: Not on file Years of education: Not on file Highest education level: Not on file Occupational History Not on file Tobacco Use Smoking status: Former Packs/day: 0 Types: Cigarettes Smokeless tobacco: Never Vaping Use Vaping Use: Never used Substance and Sexual Activity Alcohol use: Not Currently Drug use: Yes Types: Marijuana Comment: every day Sexual activity: Yes Other Topics Concern Caffeine Use No Social History Narrative Not on file Social Determinants of Health Financial Resource Strain: Low Risk (12/18/2022) Overall Financial Resource Strain (CARDIA) Difficulty of Paying Living Expenses: Not hard at all Food Insecurity: No Food Insecurity (06/27/2023) Hunger Screening Food Insecurity - Worry: Never True Food Insecurity - Inability: Never True Transportation Needs: No Transportation Needs (06/19/2023) PRAPARE - Transportation Lack of Transportation (Medical): No Lack of Transportation (Non-Medical): No Physical Activity: Insufficiently Active (12/18/2022) Exercise Vital Sign Days of Exercise per Week: 7 days Minutes of Exercise per Session: 20 min Stress: No Stress Concern Present (12/18/2022) [employer] - Occupational Stress Questionnaire Feeling of Stress : Only a little Social Connections: Moderately Integrated (12/18/2022) Social Connection and Isolation Panel [NHANES] Frequency of Communication with Friends and Family: More than three times a week Frequency of Social Gatherings with Friends and Family: More than three times a week Attends Quaker Services: More than 4 times per year Active Member of Clubs or Organizations: Yes Attends Club or Organization Meetings: More than 4 times per year Marital Status: Never Interpersonal Safety: Not At Risk (06/19/2023) Humiliation, Afraid, Rape, and Kick questionnaire Fear of Current or Ex-Partner: No Emotionally Abused: No Physically Abused: No Sexually Abused: No Housing Instability: Low Risk (06/19/2023) Housing Instability Housing Instability: No Allergies Allergen Reactions Garlic Ibuprofen Other Reaction(s): medication interference Keflex [Cephalexin] Sulfamethoxazole-Trimethoprim Rash ??? pt says she gets 'heat rash' often. however developed 'worse' rash than usual shortly after taking bactrim. has taken previously with NO reaction. Medication List Accurate as of July 05, 2023 9:40 AM. If you have any questions, ask your nurse or doctor. Medications Continued This Visit acetaminophen 325 mg tablet Quantity: 30 tablet Refills: 0 Dose: 650 mg Signed by: Dr. Ermias Shi MD 650 mg, oral, Every 6 hours PRN Commonly known as: TylenoL allopurinoL 100 mg tablet Refills: 0 Dose: 100 mg Commonly known as: ZYLOPRIM amitriptyline 10 mg tablet Quantity: 30 tablet Refills: 2 For diagnoses: Fibromyalgia Dose: 10 mg Signed by: Dr. Mayberryafa 10 mg, oral, Nightly Commonly known as: ELAVIL aspirin 81 mg Refills: 0 Dose: 81 mg bumetanide 2 mg tablet Quantity: 90 tablet Refills: 0 Dose: 2 mg Signed by: Dr. Bain 2 mg, oral, 2 times daily before meals Commonly known as: BUMEX cholecalciferol 50,000 units capsule Refills: 0 Dose: 50,000 Units Commonly known as: VITAMIN D3 cyanocobalamin 1000 MCG tablet Refills: 0 Dose: 1,000 mcg DESCOVY 200-25 mg per tablet Refills: 0 Dose: 1 tablet Generic drug: emtricitabine-tenofovir alafen dicyclomine 10 mg capsule Refills: 0 Dose: 10 mg Commonly known as: BENTYL ferrous sulfate 325 (65 FE) mg tablet Quantity: 30 tablet Refills: 6 Dose: 325 mg Signed by: Mara Witt MD 325 mg, oral, Daily with breakfast Commonly known as: FerrouSuL ketoconazole 2 % shampoo Refills: 0 Dose: 1 Application Commonly known as: NIZORAL magnesium oxide 400 mg tablet Refills: 0 Dose: 400 mg Commonly known as: MAGOX metoprolol tartrate 25 mg tablet Refills: 0 Dose: 25 mg Signed by: Marleni Leon APRN-HONEY PRODUCER 25 mg, oral, 2 times daily Commonly known as: LOPRESSOR multivitamin tablet Refills: 0 Dose: 1 tablet Commonly known as: THERAGRAN mycophenolate 500 mg tablet Quantity: 180 tablet Refills: 3 For diagnoses: Stage IV lupus nephritis (WHO) ([facility]), Systemic lupus erythematosus, unspecified SLE type, unspecified organ involvement status ([facility]), 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 Calle 3 tab twice daily Commonly known as: CELLCEPT omeprazole 20 mg capsule Refills: 0 Dose: 20 mg Commonly known as: PriLOSEC potassium chloride 20 MEQ CR tablet Quantity: 180 tablet Refills: 3 Dose: 20 mEq Signed by: Dr. Bain 20 mEq, oral, 2 times daily Commonly known as: KLOR-CON M 20 predniSONE 20 mg tablet Quantity: 30 tablet Refills: 1 For diagnoses: Stage IV lupus nephritis (WHO) ([facility]), Systemic lupus erythematosus, unspecified SLE type, unspecified organ involvement status ([facility]) Dose: 20 mg Signed by: Dr. Calle 20 mg, oral, Daily, One tab daily Commonly known as: DELTASONE PROVERA 10 mg tablet Refills: 0 Dose: 10 mg Generic drug: medroxyPROGESTERone sevelamer 800 mg tablet Refills: 0 Dose: 800 mg Commonly known as: RENVELA XARELTO 20 mg tablet tablet Quantity: 90 tablet Refills: 3 Dose: 20 mg Signed by: Dr. Tuyet Warren MD 20 mg, oral, Daily Generic drug: rivaroxaban Review of Symptoms: Review of Systems Constitutional: Positive for fatigue. Respiratory: Positive for chest tightness and shortness of breath. All other systems reviewed and are negative. ECO- Symptomatic; fully ambulatory Physical Exam: General: Well appearing, in no acute distress. Vitals: LMP 04/30/2023 (Approximate) There is no height or weight on file to calculate BMI. Physical exam: Awake alert and oriented sclera was anicteric. Respirations nonlabored. There was no stridor. Lungs reveal crackles. Cardiac exam revealed regular rate and rhythm S1-S2 and no murmurs. Abdomen soft nontender. Extremity exam revealed trace edema around the ankles. Skin exam revealed no rashes. Patient was afebrile. Mood was appropriate and not depressed. Recent Imaging: Us Mfm With Or Without Consult Result Date: 12/31/2019 Narrative: ---- OBSTETRICS REPORT (Signed Final 12/31/2019 10:44) ---- PATIENT INFO: ID #: [id number] : [birth year] (29 yrs)(F) Name: BLANCA DIAZ Visit Date: 12/30/2019 14:15 RONNI ---- PERFORMED BY: Performed By: Ashwin Guallpa RDMS Attending: Samuel Beltran MD Referred By: Brandy Alexis MD Ref. Address: [address] [address] Location: [facility] ---- SERVICE(S) PROVIDED: Basic OB >/= 14 weeks, 1 fetus [id number] ---- INDICATIONS: Other suspected or known abnormality O35.8XX0 and damage, single fetus Obesity complicating , second O99.212 trimester Hypertension, pre-existing, second trimester O10.012 Supervision of other high risk , O09.892 second trimester ; Hx DVT and PE ---- VITAL SIGNS: Weight (lb): 283 Height: 5'8 BMI: 43.03 ---- EVALUATION: Num Of Fetuses: 1 Heart Rate(bpm): 155 Cardiac Activity: Present & appears normal Presentation: Cephalic Placenta: Anterior, away from cervical os P. Cord Insertion: Could Not Document Amniotic Fluid SATHYA FV: Subjectively within normal limits ---- BIOMETRY: BPD: 31.8 mm G.Age: 16w 0d 57 % OFD: 43.6 mm HC: 119.9 mm G.Age: 16w 0d 48 % AC: 105.3 mm G.Age: 16w 3d 77 % FL: 18.5 mm G.Age: 15w 3d 36 % HUM: 16.7 mm G.Age: 14w 6d 23 % TIB: 15.7 mm G.Age: 15w 3d 42 % CI: 72.9 % 70 - 86 FL/HC: 15.4 % 13.3 - 16.5 HC/AC: 1.14 1.05 - 1.39 FL/BPD: 58.2 % FL/AC: 17.6 % 20 - 24 Est. FW: 141 gm 0 lb 5 oz 59 % ---- OB HISTORY: : 4 ---- GESTATIONAL AGE: LMP: 19w 0d Date: 08/19/19 LEOBARDO: 05/25/20 U/S Today: 16w 0d LEOBARDO: 06/15/20 Best: 15w 5d Det. By: Early LEOBARDO: 06/17/20 Ultrasound (12/09/19) ---- ANATOMY: Cranium: Appears normal Cavum: Could not document Ventricles: Could not document Choroid Plexus: Appears normal Cerebellum: Could not document Posterior Fossa: Could not document Nuchal Fold: Could not document Face: Could not document Lips: Could not document Palate: Could not document Thoracic: Not well visualized Heart: Could not document RVOT: Could not document LVOT: Could not document Aortic Arch: Could not document Ductal Arch: Could not document Diaphragm: Could not document Stomach: Appears normal, left sided Abdomen: Appears normal Abdominal Wall: Could not document Cord Vessels: Appears normal (3 vessel cord) Kidneys: Appear normal Bladder: Appears normal Spine: Could not document Upper Extremities: Appears normal Lower Extremities: Appears normal Other: Female external genitalia visualized. ---- CERVIX UTERUS ADNEXA: Cervix Normal appearance by abdominal scan Uterus Gravid uterus Left Ovary Not visualized Right Ovary Visualized ---- COMMENTS: 1. Obstetrical ultrasound, while an excellent imaging modality for the fetus, cannot detect all structural abnormalities all of the time. ---- ---- RECOMMENDATIONS: 1. Please see [facility] consultation letter from today. 2. Patient is scheduled in six weeks to complete the anatomic survey. ---- Samuel Beltran MD Electronically Signed Final Report 12/31/2019 10:44 ---- Impression: IMPRESSION: 1. Single intrauterine size consistent with assigned LEOBARDO. Recent Labs: Recent Results (from the past 336 hour(s)) CBC auto differential Collection Time: 06/24/23 10:40 PM Result Value Ref Range White Blood Cells 10.2 4.0 - 11.0 X10E9/L RBC count 4.15 3.80 - 5.20 X10E12/L Hemoglobin 12.5 11.7 - 15.5 g/dL Hematocrit 36.0 35 - 47 % MCV 87 80 - 100 fL MCH 30.2 27 - 34 pg MCHC 34.8 32 - 36 g/dL RDW 14.9 11.5 - 15.0 % Platelets 305 150 - 450 X10E9/L MPV 7.3 7 - 12 fL % neutrophils 77.2 % % lymphocytes 15.9 % % monocytes 6.2 % % eosinophils 0.2 % % Basophils 0.5 % Neutrophils Absolute (A) 7.9 (H) 1.5 - 6.6 X10E9/L Lymphocytes Absolute 1.6 1.0 - 3.5 X10E9/L Monocytes Absolute 0.6 0 - 0.9 X10E9/L Eosinophils Absolute 0.0 0.0 - 0.4 X10E9/L Basophils Absolute 0.1 0.0 - 0.2 X10E9/L Comprehensive metabolic panel Collection Time: 06/24/23 10:40 PM Result Value Ref Range Sodium 136 134 - 146 mmol/L Potassium, Bld 3.9 3.5 - 5.0 mmol/L Chloride 102 98 - 109 mmol/L CO2 28 22 - 32 mmol/L Anion gap 6 5 - 15 mmol/L BUN 31 (H) 5 - 23 mg/dL Creatinine 1.48 (H) 0.40 - 1.00 mg/dL Glucose 102 (H) 65 - 99 mg/dL Calcium 8.4 (L) 8.5 - 10.5 mg/dL Total Protein 6.5 6.0 - 8.0 g/dL Albumin 3.8 3.2 - 5.3 g/dL Alkaline Phosphatase 46 39 - 130 U/L AST 13 0 - 41 U/L ALT 14 0 - 31 U/L Total bilirubin 0.6 0.3 - 1.2 mg/dL eGFR (CKD-EPI)non-race dependent 48 (L) >59 ml/min/1.73sq.m Lipase Collection Time: 06/24/23 10:40 PM Result Value Ref Range Lipase 55 (H) 17 - 40 U/L POCT Nursing Urine Macroscopic UA Collection Time: 06/24/23 10:57 PM Result Value Ref Range Specific gravity BRENDEN 1.020 1.003 - 1.035 Leukocyte esterase BRENDEN Negative Negative^Negative Nitrite BRENEDN Negative Negative^Negative Ph 5.5 5.0 - 8.5 Protein BRENDEN >=300 (A) Negative^Negative mg/dL Urine glucose BRENDEN Negative Negative^Negative mg/dL Ketones BRENDEN Negative Negative^Negative mg/dL Urobilinogen BRENDEN 0.2 <1.1 eu/dL Bilirubin BRENDEN Negative Negative^Negative Hemoglobin BRENDEN Large (A) Negative^Negative POCT , urine Collection Time: 06/24/23 10:59 PM Result Value Ref Range Nursing urine Negative Negative^Negative Vitamin D 25 hydroxy Collection Time: 06/28/23 10:42 AM Result Value Ref Range Vit D, 25-Hydroxy 29.0 (L) 30 - 100 ng/mL Urinalysis Collection Time: 06/28/23 10:42 AM Result Value Ref Range Color YELLOW YELLOW^YELLOW Turbidity CLEAR CLEAR^CLEAR Specific gravity 1.017 1.003 - 1.035 Nitrite Negative Negative^Negative Ph urine 6.0 5.0 - 8.5 Leukocyte esterase Negative Negative^Negative Protein 100 (A) Negative^Negative mg/dL Glucose, Ur Negative Negative^Negative mg/dL Ketones urine Negative Negative^Negative mg/dL Urobilinogen <1.1 <1.1 eu/dL Bilirubin, urine Negative Negative^Negative Hemoglobin Large (A) Negative^Negative Mucus, UA PRESENT (A) NONE^NONE RBC 126 (H) 0 - 5 /hpf Squamous epithelium 1 0 - 5 /hpf WBC 4 0 - 5 /hpf Phosphorus Collection Time: 06/28/23 10:42 AM Result Value Ref Range Phosphorus 2.8 2.4 - 4.9 mg/dL Protein creat ratio Collection Time: 06/28/23 10:42 AM Result Value Ref Range Urine creatinine 151.79 mg/dL Protein Urine Random 1,070 (H) <120 mg/L U/Pro/Websphere Process Server Developer Ratio Calc 0.70 (H) <0.2 Parathyroid Hormone, intact Collection Time: 06/28/23 10:42 AM Result Value Ref Range PTH 107 (H) 12 - 88 pg/mL Magnesium Collection Time: 06/28/23 10:42 AM Result Value Ref Range Magnesium 1.8 1.8 - 2.6 mg/dL CBC auto differential Collection Time: 06/28/23 10:42 AM Result Value Ref Range White Blood Cells 8.9 4.0 - 11.0 X10E9/L RBC count 4.12 3.80 - 5.20 X10E12/L Hemoglobin 12.5 11.7 - 15.5 g/dL Hematocrit 36.5 35 - 47 % MCV 89 80 - 100 fL MCH 30.4 27 - 34 pg MCHC 34.3 32 - 36 g/dL RDW 14.8 11.5 - 15.0 % Platelets 277 150 - 450 X10E9/L MPV 7.7 7 - 12 fL % neutrophils 85.6 % % lymphocytes 9.4 % % monocytes 4.3 % % eosinophils 0.4 % % Basophils 0.3 % Neutrophils Absolute (A) 7.7 (H) 1.5 - 6.6 X10E9/L Lymphocytes Absolute 0.8 (L) 1.0 - 3.5 X10E9/L Monocytes Absolute 0.4 0 - 0.9 X10E9/L Eosinophils Absolute 0.0 0.0 - 0.4 X10E9/L Basophils Absolute 0.0 0.0 - 0.2 X10E9/L Comprehensive metabolic panel Collection Time: 06/28/23 10:42 AM Result Value Ref Range Sodium 140 134 - 146 mmol/L Potassium, Bld 4.0 3.5 - 5.0 mmol/L Chloride 99 98 - 109 mmol/L CO2 33 (H) 22 - 32 mmol/L Anion gap 8 5 - 15 mmol/L BUN 25 (H) 5 - 23 mg/dL Creatinine 1.63 (H) 0.40 - 1.00 mg/dL Glucose 92 65 - 99 mg/dL Calcium 8.6 8.5 - 10.5 mg/dL Total Protein 6.3 6.0 - 8.0 g/dL Albumin 3.6 3.2 - 5.3 g/dL Alkaline Phosphatase 44 39 - 130 U/L AST 11 0 - 41 U/L ALT 12 0 - 31 U/L Total bilirubin 0.5 0.3 - 1.2 mg/dL eGFR (CKD-EPI)non-race dependent 43 (L) >59 ml/min/1.73sq.m C-reactive protein Collection Time: 06/28/23 10:42 AM Result Value Ref Range CRP 0.2 0.000 - 0.744 mg/dL Erythrocyte Sedimentation Rate (ESR) Collection Time: 06/28/23 10:42 AM Result Value Ref Range Sed Rate 2 0 - 20 mm/h Urine protein creatinine ratio Collection Time: 06/28/23 10:42 AM Result Value Ref Range Urine creatinine 151.74 mg/dL Protein Urine Random 1,070 (H) <120 mg/L U/Pro/Websphere Process Server Developer Ratio Calc 0.71 (H) <0.2 Diagnosis Problem list: Problem List Items Addressed This Visit None Impression: Unprovoked right-sided lower extremity DVT during 2019 Recurrent left-sided lower extremity DVT with pulmonary embolism 10/2019 Long-term anticoagulation, Xarelto 06/2020- Plan: I reviewed the patient's recent blood work and imaging studies. Her protein S level is slightly decreased. Her protein C level is within normal range. DRVVT, cardiolipin, beta 2 glycoprotein are all within normal range. Factor 5 leiden mutation negative. Prothrombin gene mutation is not checked yet. Given patient's history of recurrent lower extremity DVTs with pulmonary embolism, I recommend long-term anticoagulation. She has been on Xarelto and tolerated well. Creatinine is relatively stable. Blood work from recent ER visit showed normal CBC, no evidence of iron deficiency. She is cleared from Hematology standpoint for oophorectomy. I recommend the following lexi-operative anticoagulation: The patient's last dose of 20 mg Xarelto will be 08/12/2023 Her oophorectomy will be 08/16/2023 Start prophylactic Lovenox 40 mg daily from 08/17/2023 Resume 20 mg Xarelto after postop checkup. Follow-up with me in 1 year June 2024 with CBC and CMP prior to visit. Thank you. Tuyet Warren MD Please note that portions of this note were generated using voice recognition M*Modal dictation software. Although every effort was made to ensure the accuracy of this automated director supply chain, some errors in director supply chain may have occurred. CC: Patient Care Team: Billy Zelaya PA-C as PCP - General (Physician Accountant Controller) Anna Kaur RN as Registered Nurse (Obstetrics) Sherman Calle MD as Referring Physician (Rheumatology) Mayco Albright DO as Referring Physician (Obstetrics and Gynecology) PCP:Billy Zelaya Referring MD: No ref. provider found documented in this encounter [email or web address] 07-05-2023 Instructions Tuyet Warren MD - 07/05/2023 9:00 AM EST Continue Xarelto 20 mg daily. Follow-up in 1 year with CBC CMP prior to visit. I will leave instruction for preop preparation for patient's oophorectomy surgery August 15. documented in this encounter [facility] 07-04-2023 History of Present illness Narrative Images from the original note were not included. [id number] [facility] [address] [facility] [id number] Date of Service: 07/04/2023 Subjective: Blanca Rudolph is a 32 y.o. female who presents today for evaluation Lupus. Patient is seen at the request of Billy Zelaya PA-C. This is a follow-up visit with this patient who is 32-year-old female patient presenting today as an established patient for follow-up of lupus nephritis was seen 1st time on 11/20/2022 last time the clinic was 05/03/2023 Patient illness started on with history of 06/2022 with joints pain,with swelling,skin rash (Hives),butterfly rash,hair loss,no raynaud's,no fever,headaches,weight loss,pleurisy, Patient was admitted to hospital for 12 days ,discharged 12/04/2022 with acute kidney injury subsequently she had, she had kidney biopsy, patient was started on steroid,on Prednisone 60 mg daily mycophenolate 6 tab daily She has 5 children,one miscarriage . 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 Nephrotic syndrome, class IV lupus nephritis. 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 Official report is pending. 2. Systemic lupus erythematosus 1. Clinically and with positive SANDER and low complement levels. 2. Manifested by recurrent fever, alopecia, oral ulcers, malar rash, arthritis, lymphadenopathy are the main features. 3. History of PE/DVT 1. Negative anticardiolipin antibodies last week in October 2022. 4. Positive syphilis serology. 1. Not likely related to anti phospholipid antibody. Remote history of sexually transmitted diseases Lab tests 01/15/2023 CBC normal, serum creatinine 1.53 urine protein creatinine ratio 6.49, came down from 10.61 on 12/28/2022, vitamin-D 16.2, urinalysis 300 protein, large hemoglobin Lab tests 01/23/2023 urinalysis, CBC normal, CMP creatinine 1.46 mg/dL, albumin 2.7, CRP and ESR normal, urinalysis protein 200 mg/dL, hemoglobin large, RBCs 52, urine protein creatinine ratio 2.92 significant improvement from December 01, 2022 was 17.9 Lab tests 2022 : Urine protein creatinine ratio 1.22 this is a 50% from previous number in January 26, 2023, serum creatinine 1.56 mg/dL this than previous, CBC normal. Recent lab 01/18/2024 protein creatinine ratio1,070 , has been in this level since March 2023 except for 1 time was elevated 3.040 in 05/03/2023 Serum creatinine 1.63 and has been in this range since end of November 2022. Current medications including CellCept 3 g daily as well as prednisone 20 mg daily. Today 07/04/2023 patient said that she has been doing fairly well except pressure has been high in more than 1 occasion. Review of Systems: Review of Systems Constitutional: Negative. HENT: Negative. Musculoskeletal: Negative. Skin: Negative. Current Outpatient Medications Medication Sig Dispense Refill acetaminophen (TylenoL) 325 mg tablet Take 2 tablets (650 mg total) by mouth every 6 (six) hours as needed for pain. 30 tablet 0 allopurinoL (ZYLOPRIM) 100 mg tablet Take 1 tablet (100 mg total) by mouth in the morning. aspirin 81 mg Take 1 tablet (81 mg total) by mouth in the morning. bumetanide (BUMEX) 2 mg tablet Take 1 tablet (2 mg total) by mouth 2 (two) times a day before meals. 90 tablet 0 cholecalciferol (VITAMIN D3) 50,000 units capsule Take 1 capsule (50,000 Units total) by mouth once a week. cyanocobalamin 1000 MCG tablet Take 1 tablet (1,000 mcg total) by mouth in the morning. DESCOVY 200-25 mg per tablet Take 1 tablet by mouth in the morning. dicyclomine (BENTYL) 10 mg capsule Take 1 capsule (10 mg total) by mouth in the morning and 1 capsule (10 mg total) at noon and 1 capsule (10 mg total) in the evening and 1 capsule (10 mg total) before bedtime. ferrous sulfate (FERROUSUL) 325 (65 FE) mg tablet Take 1 tablet (325 mg total) by mouth daily with breakfast. 30 tablet 6 ketoconazole (NIZORAL) 2 % shampoo Apply 1 Application topically 2 (two) times a week. magnesium oxide (MAGOX) 400 mg tablet Take 1 tablet (400 mg total) by mouth in the morning and 1 tablet (400 mg total) before bedtime. metoprolol tartrate (LOPRESSOR) 25 mg tablet Take 1 tablet (25 mg total) by mouth in the morning and 1 tablet (25 mg total) before bedtime. multivitamin (THERAGRAN) tablet Take 1 tablet by mouth in the morning. omeprazole (PriLOSEC) 20 mg capsule Take 1 capsule (20 mg total) by mouth every morning before breakfast. potassium chloride (KLOR-CON M 20) 20 MEQ CR tablet Take 1 tablet (20 mEq total) by mouth in the morning and 1 tablet (20 mEq total) before bedtime. 180 tablet 3 PROVERA 10 mg tablet Take 1 tablet (10 mg total) by mouth in the morning. rivaroxaban (XARELTO) 20 mg tablet tablet Take 1 tablet (20 mg total) by mouth in the morning. 90 tablet 3 sevelamer (RENVELA) 800 mg tablet Take 1 tablet (800 mg total) by mouth in the morning and 1 tablet (800 mg total) at noon and 1 tablet (800 mg total) in the evening. Take with meals. amitriptyline (ELAVIL) 10 mg tablet Take 1 tablet (10 mg total) by mouth nightly. 30 tablet 2 mycophenolate (CELLCEPT) 500 mg tablet 3 tab twice daily 180 tablet 3 predniSONE (DELTASONE) 20 mg tablet Take 1 tablet (20 mg total) by mouth in the morning. One tab daily. 30 tablet 1 No current facility-administered medications for this visit. Physical Exam: Physical Exam Vitals and nursing note reviewed. Constitutional: General: She is not in acute distress. Appearance: She is well-developed. She is not diaphoretic. HENT: Head: Normocephalic and atraumatic. Right Ear: External ear normal. Left Ear: External ear normal. Nose: Nose normal. Eyes: Conjunctiva/sclera: Conjunctivae normal. Pupils: Pupils are equal, round, and reactive to light. Neck: Thyroid: No thyromegaly. Cardiovascular: Rate and Rhythm: Normal rate and regular rhythm. Heart sounds: Normal heart sounds. No murmur heard. No friction rub. Pulmonary: Effort: Pulmonary effort is normal. No respiratory distress. Breath sounds: No stridor. No wheezing or rales. Abdominal: Palpations: Abdomen is soft. Musculoskeletal: General: No tenderness or deformity. Normal range of motion. Cervical back: Normal range of motion and neck supple. Left lower leg: No edema. Comments: Hands exams no synovitis Skin: General: Skin is warm and dry. Findings: No erythema or rash. Neurological: Mental Status: She is alert and oriented to person, place, and time. Cranial Nerves: No cranial nerve deficit. Coordination: Coordination normal. Psychiatric: Behavior: Behavior normal. ROSAS-28 (If Applicable) There is currently no information documented on the homunculus. Go to the Rheumatology activity and complete the homunculus joint exam. ROSAS-28 (CRP): -- ROSAS-28 (ESR): -- Tender (ROSAS-28): -- Swollen (ROSAS-28): -- BP 128/78 Resp 18 Ht 172.7 cm (5' 7.99 ) Wt 117.9 kg (260 lb) LMP 04/30/2023 (Approximate) BMI 39.54 kg/m : reviewed Labs and Imaging: reviewed and discussed with the patient during the visit.I Lab Results Component Value Date WBC 8.9 06/28/2023 HGB 12.5 06/28/2023 HCT 36.5 06/28/2023 MCV 89 06/28/2023 CRP 0.2 06/28/2023 C3 124 05/03/2023 C4 21 05/03/2023 GFR >60 12/07/2021 GFR >60 12/07/2021 AST 11 06/28/2023 AST 22 06/03/2023 Imaging: Assessment and Plan: Blanca Rudolph is a 32 y.o. female patient with: 1. Systemic lupus erythematosus, unspecified SLE type, unspecified organ involvement status ([facility]) - mycophenolate (CELLCEPT) 500 mg tablet; 3 tab twice daily Dispense: 180 tablet; Refill: 3 - predniSONE (DELTASONE) 20 mg tablet; Take 1 tablet (20 mg total) by mouth in the morning. One tab daily. Dispense: 30 tablet; Refill: 1 - Erythrocyte Sedimentation Rate (ESR); Future - C-reactive protein; Future - Comprehensive metabolic panel; Future - CBC auto differential; Future - C4 complement; Future - C3 complement; Future - Unlisted Lab Test; Future 2. Stage IV lupus nephritis (WHO) ([facility]) - mycophenolate (CELLCEPT) 500 mg tablet; 3 tab twice daily Dispense: 180 tablet; Refill: 3 - predniSONE (DELTASONE) 20 mg tablet; Take 1 tablet (20 mg total) by mouth in the morning. One tab daily. Dispense: 30 tablet; Refill: 1 - Erythrocyte Sedimentation Rate (ESR); Future - C-reactive protein; Future - Comprehensive metabolic panel; Future - CBC auto differential; Future - Protein creat ratio; Future - Urinalysis; Future - C3 complement; Future - Unlisted Lab Test; Future 3. 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 Fibromyalgia - amitriptyline (ELAVIL) 10 mg tablet; Take 1 tablet (10 mg total) by mouth nightly. Dispense: 30 tablet; Refill: 2 At this point patient continued to have stable serum creatinine in the range 1.6 mg/dL as well as protein creatinine ratio in the range of 1 which has been stable over the past several. Months Patient response to current medications has stopped at this level and she has not been having progressive improvement. Her blood pressure today is 160/110. Patient is on 6 tablets mycophenolate and currently on 20 mg prednisone daily. At this point she has not responding any further and this could be because her blood pressure has not been controlled / she might need another medication for her glomerular nephritis Would like to achieve complete proteinuria response as protein excretion ?0.33 g/day and serum creatinine <1.2 mg/dL At this point adding voclosporin 23.7 mg orally twice daily or belimumab, either IV or subcu would be appropriate in combination with her current mycophenolate lupus nephritis stage IV based on kidney biopsy done late October 2022 Urine Protein creatinine ratio was 9.47 on 11/20/2022 SANDER 1:160 Anti cardiolipin antibodies as well as beta 2 glycoprotein antibody 3 times negative in 2018 and October 2022 C3 79 mg/dL, C4 < 8 mg/dL low on 11/17/2022 CBC twice low white counts 3.8 and 3.4 in October 2022, Anti DNA by crithidia negative Direct Taz positive, indirect Taz negative Keep her on current dose of prednisone as well as mycophenolate. Re-evaluate after 1 month. Advised patient that she needs her blood pressure to be tightly controlled by Nephrology whom she will be seeing in 1 week This note was created with the assistance of a speech recognition program. While intending to generate a timely document that accurately reflects the content of the visit, no guarantee can be provided that every grammatical or spelling mistake has been or will be identified or corrected. Thank you for your understanding. [facility] Rheumatology Dr. Sherman Calle MD [address] [place] [address] [address] [place] [address] Office: [phone] documented in this encounter [facility] 07-03-2023 Miscellaneous Notes Surgeon: Dr. Albright Type of surgery: D&C Diagnostic Lap/ Hysteroscopy Date of surgery: 07/06/23 Surgery location: [place] Type of anesthesia: General On a blood thinner?: xarelto Indication? DVT/Pulmonary emboli On an antiplatelet?: ASA 81 mg Date of last EK06/19/23 Last office visit date and who they saw: 06/27/23- Dr. Harmon Their preference of how long to hold blood thinners/antiplatelet: Would like to hold ASA & Xarelto 3 days History of DVT/PE? Yes ATTN: Viviane Harmon messaged She would be low risk for cardiovascular events. Aspirin could be held for 3 days no problems. She is on Xarelto for DVT and PE. She will need to be bridged with Lovenox. May stop Xarelto 3 days as requested. Start Lovenox 1 milligram/kg b.i.d. after stopping Xarelto. This could be held the night prior to the surgery. Resume Xarelto after surgery when safe to do so. Clearance pedro pablo and Viviane notified to address documented in this encounter [facility] 07-03-2023 Telephone encounter Note Surgeon: Dr. Albright Type of surgery: D&C Diagnostic Lap/ Hysteroscopy Date of surgery: 07/06/23 Surgery location: [place] Type of anesthesia: General On a blood thinner?: xarelto Indication? DVT/Pulmonary emboli On an antiplatelet?: ASA 81 mg Date of last EK06/19/23 Last office visit date and who they saw: 06/27/23- Dr. Harmon Their preference of how long to hold blood thinners/antiplatelet: Would like to hold ASA & Xarelto 3 days History of DVT/PE? Yes ATTN: Viviane [facility]aged [facility]23 Telephone encounter Note She would be low risk for cardiovascular events. Aspirin could be held for 3 days no problems. She is on Xarelto for DVT and PE. She will need to be bridged with Lovenox. May stop Xarelto 3 days as requested. Start Lovenox 1 milligram/kg b.i.d. after stopping Xarelto. This could be held the night prior to the surgery. Resume Xarelto after surgery when safe to do so. [facility] 07-03-2023 Telephone encounter Note Clearance faxed and Viviane notified to address [facility] 06-28-2023 Miscellaneous Notes Pt called in regards to getting her appt with [facility] rescheduled. Messaged [facility] who stated to have the pt seen in [place] with MD. Next week did not work for her so I informed her I would give her a call around 07/05/23 to try to get her scheduled for the week of 07/09/23. Called pt and scheduled follow up in [place] per [facility]. documented in this encounter [facility] 06-28-2023 Telephone encounter Note Pt called in regards to getting her appt with [facility] rescheduled. Messaged [facility] who stated to have the pt seen in [place] with MD. Next week did not work for her so I informed her I would give her a call around 07/05/23 to try to get her scheduled for the week of 07/09/23. [facility] 06-28-2023 Telephone encounter Note Called pt and scheduled follow up in [place] per [facility]. [facility] 06-21-2023 Miscellaneous Notes Patient is almost out of medication. Appointment is 07/04/23 documented in this encounter [facility] 06-21-2023 Telephone encounter Note Patient is almost out of medication. Appointment is 07/04/23 [facility] 06-19-2023 Miscellaneous Notes Pt was returning my call to inform me she was in ED and may be admitted to hospital d/t sob and chest pain. I was following up to see how she was feeling. She had no question or concerns for our office at this time. documented in this encounter [facility] 06-19-2023 Telephone encounter Note Pt was returning my call to inform me she was in ED and may be admitted to hospital d/t sob and chest pain. I was following up to see how she was feeling. She had no question or concerns for our office at this time. [facility] 06-18-2023 Miscellaneous Notes Patient called wanting to speak with a nurse to notify office of everything that's been going on with cardiology, and update on upcoming procedures. tried to call pt she currently in [facility] ed,she might try to call back documented in this encounter [facility] 06-18-2023 Telephone encounter Note Patient called wanting to speak with a nurse to notify office of everything that's been going on with cardiology, and update on upcoming procedures. [facility] 06-18-2023 Telephone encounter Note tried to call pt she currently in [facility] ed,she might try to call back [facility] 06-14-2023 Miscellaneous Notes Blanca states that she would like to know the results of the blood work and, she did complete the stress test, she also states she has been having bad headaches,she is not take any tylenol for the pain. Funding Coordinator advised the patient that the nurse will be notified. [phone] documented in this encounter [facility] 06-14-2023 Telephone encounter Note Blanca states that she would like to know the results of the blood work and, she did complete the stress test, she also states she has been having bad headaches,she is not take any tylenol for the pain. Funding Coordinator advised the patient that the nurse will be notified. [phone] [facility] 06-13-2023 Miscellaneous Notes spoke with patient and confrim appt with Dr. Bain in [place] and will have labs done tomorrow documented in this encounter [facility] 06-13-2023 Telephone encounter Note spoke with patient and confrim appt with Dr. Bain in [place] and will have labs done tomorrow [facility] 06-13-2023 Evaluation note Diagnosis Stage IV lupus nephritis (WHO) ([facility])- Primary Stage 3 chronic kidney disease, unspecified whether stage 3a or 3b CKD ([facility]) documented in this encounter [facility]02-12-2024 Miscellaneous Notes* Telephone Encounter - Keke Montero CMA - 06/11/2023 9:03 AM EST Blanca called and that she would to keep all of her doctors in the loop of what is going on with her. Blanca states that she has left ventricular hypertrophy and a cyst, she was to do a EKG ranulfo a chest Xray. Her EKG came back abnormal now she is seeing a head worker and will be doing a stress test. She also states her PCP changed she her blood pressure medication. Blanca states that heart looked enlarged when she had it check a few years ago, but Dr. Bain told her it looked fine,yet her head worker is telling her other espitia. Blanca states that she hopes this stress test will let he know what is really going with her heart, and she would like to speak with the nurse to give more details on what is going on. Blanca requested a refill on the Bumex 2 mg. Call back [phone] * Telephone Encounter - Nora Oconnor LPN - 06/11/2023 9:03 AM EST Patient called in concerned about metoprolol being prescribed by PCP. She would like to know if sheshould take this due to her kidney function she would like to know if she should be on a Casper or arbat this time. Med-list is current and patient is not monitoring BP at home * Telephone Encounter - Nora Oconnor LPN - 06/11/2023 9:03 AM EST Spoke with pt and she consulted cardiology and she stated they advised her to continue new medication at this time. She still expressed concerns, but will keep in touch with office about and questions that she may have [facility] Telephone encounter Note* Telephone Encounter - Keke Montero CMA - 06/11/2023 9:03 AM EST Blanca called and that she would to keep all of her doctors in the loop of what is going on with her. Blanca states that she has left ventricular hypertrophy and a cyst, she was to do a EKG ranulfo a chest Xray. Her EKG came back abnormal now she is seeing a head worker and will be doing a stress test. She also states her PCP changed she her blood pressure medication. Blanca states that heart looked enlarged when she had it check a few years ago, but Dr. Bain told her it looked fine,yet her head worker is telling her other espitia. Blanca states that she hopes this stress test will let he know what is really going with her heart, and she would like to speak with the nurse to give more details on what is going on. Blanca requested a refill on the Bumex 2 mg. Call back [phone] [email or web address] Telephone encounter Note* Telephone Encounter - Nora Oconnor LPN - 06/11/2023 9:03 AM EST Patient called in concerned about metoprolol being prescribed by PCP. She would like to know if sheshould take this due to her kidney function she would like to know if she should be on a Casper or arbat this time. Med-list is current and patient is not monitoring BP at home [email or web address] Telephone encounter Note* Telephone Encounter - Nora Oconnor LPN - 06/11/2023 9:03 AM EST Spoke with pt and she consulted cardiology and she stated they advised her to continue new medication at this time. She still expressed concerns, but will keep in touch with office about and questions that she may have [email or web address] Miscellaneous Notes* Telephone Encounter - Irasema Corbin RN - 06/06/2023 1:12 PM EST Images from the original note were not included. Irasema Corbin RN 06/06/2023 1:12 PM EST Back to Top Noted Simone Franklin MD 06/06/2023 11:27 AM EST She is on that for noncardiac indications for pulmonary emboli will need either vascular Medicine to give the okay to hold or her primary care physician Irasema Corbin RN 06/06/2023 8:43 AM EST BD, med list includes Xarelto 20mg, do you want her to hold prior to procedure? Simone Franklin MD 06/06/2023 8:35 AM EST Wnc-wb-lxeukznt risk Irasema Corbin RN 06/06/2023 7:25 AM EST BD, FYI echo ordered 05/21/23 for PREOP - Abnormal EKG Likely secondary to left ventricular hypertrophy and hypertensive heart disease. I think repeating her echocardiogram would be my 1st step here.Presently she has significant echo findings for hypertensive heart disease at such a young age Withmoderate left ventricular hypertrophy, moderate dilated left atrium and grade 2 diastolic dysfunction. She is currently on Procardia and compliant with that medication. Blood pressure appears to be reasonably controlled today will definitely keep an eye on that. With a low threshold to titrate her Procardia echocardiogram does not show any significant changes from previous then would clear her ubaldo qom-uk-iedbprsw risk. She is able to do at least 4 metabolic equivalents in her daily life. LV 60-65%, mild wall thickness/hypertrophy LA - moderately dilated. * Telephone Encounter - Irasema Corbin RN - 06/06/2023 1:12 PM EST Irasema Corbin RN 06/06/2023 1:42 PM EST Back to Top Echo results and BDs recommendations called and reviewed with patient. Pt mentions calling the [facility] office this morning d/t chest discomfort and BD ordered a nuc stress exe now scheduled for 06/14/23. Will hold off sending the Preop clearance until BD reviews stress results. Message sent to [facility] office to FYI. [facility] in this encounterC[facility] [id number] Telephone encounter Note* Telephone Encounter - Irasema Corbin RN - 06/06/2023 1:12 PM EST Images from the original note were not included. Irasema Corbin RN 06/06/2023 1:12 PM EST Back to Top Noted Simone Franklin MD 06/06/2023 11:27 AM EST She is on that for noncardiac indications for pulmonary emboli will need either vascular Medicine to give the okay to hold or her primary care physician Irasema Corbin RN 06/06/2023 8:43 AM EST BD, med list includes Xarelto 20mg, do you want her to hold prior to procedure? Simone Franklin MD 06/06/2023 8:35 AM EST Tca-ls-plyswvsl risk Irasema Corbin RN 06/06/2023 7:25 AM EST BD, FYI echo ordered 05/21/23 for PREOP - Abnormal EKG Likely secondary to left ventricular hypertrophy and hypertensive heart disease. I think repeating her echocardiogram would be my 1st step here.Presently she has significant echo findings for hypertensive heart disease at such a young age Withmoderate left ventricular hypertrophy, moderate dilated left atrium and grade 2 diastolic dysfunction. She is currently on Procardia and compliant with that medication. Blood pressure appears to be reasonably controlled today will definitely keep an eye on that. With a low threshold to titrate her Procardia echocardiogram does not show any significant changes from previous then would clear her ubaldo anj-xg-rbnteshx risk. She is able to do at least 4 metabolic equivalents in her daily life. LV 60-65%, mild wall thickness/hypertrophy LA - moderately dilated. [facility]02-07-2024 Telephone encounter Note* Telephone Encounter - Irasema Corbin RN - 06/06/2023 1:12 PM EST Irasema Corbin RN 06/06/2023 1:42 PM EST Back to Top Echo results and BDs recommendations called and reviewed with patient. Pt mentions calling the [facility] office this morning d/t chest discomfort and BD ordered a nuc stress exe now scheduled for 06/14/23. Will hold off sending the Preop clearance until BD reviews stress results. Message sent to [facility] office to FYI. [facility] [id number] Miscellaneous Notes* Telephone Encounter - Digna Valladares RN - 06/06/2023 9:59 AM EST Received p/c from pt. Has been in ER for chest pain 06/03 ,06/04,06/05 for chest pain. Pt states pain gets so bad that BP increases then she gets Headache. Has home BP cuff but having trouble using it. Asked pt to take to place purchased or any of her doctors office to show how to use. Pt has lupus and history of pulm emboli. Pt having trouble functioning due to chest discomfort. Last saw Dr. Franklin. Any suggestions? * Telephone Encounter - Simone Franklin MD - 06/06/2023 9:59 AM EST Please order treadmill nuclear stress test for unstable angina * Telephone Encounter - Digna Valladaers RN - 06/06/2023 9:59 AM EST Pt notified. Orders placed. Pt given central scheduling number to call and arrange * Telephone Encounter - Irasema Corbin RN - 06/06/2023 9:59 AM EST ++++++++PREOP PENDING STRESS RESULTS++++++++++++ documented in [facility] encounter[facility] Telephone encounter Note* Telephone Encounter - Digna Valladares RN - 06/06/2023 9:59 AM EST Received p/c from pt. Has been in ER for chest pain 06/03 ,06/04,06/05 for chest pain. Pt states pain gets so bad that BP increases then she gets Headache. Has home BP cuff but having trouble using it. Asked pt to take to place purchased or any of her doctors office to show how to use. Pt has lupus and history of pulm emboli. Pt having trouble functioning due to chest discomfort. Last saw Dr. Franklin. Any suggestions? [facility]02-07-2024 Telephone encounter Note* Telephone Encounter - Simone Franklin MD - 06/06/2023 9:59 AM EST Please order treadmill nuclear stress test for unstable angina [facility]02-07-2024 Telephone encounter Note* Telephone Encounter - Digna Valladares RN - 06/06/2023 9:59 AM EST Pt notified. Orders placed. Pt given central scheduling number to call and arrange [facility] [id number] Telephone encounter Note* Telephone Encounter - Irasema Corbin RN - 06/06/2023 9:59 AM EST ++++++++PREOP PENDING STRESS RESULTS++++++++++++ [facility] [id number] Miscellaneous Notes* Telephone Encounter - Kirstiedamir Sung - 06/05/2023 10:26 AM EST Please ask the following questions to the new patient that you are schedulin. IS THIS DUE TO AN ACCIDENT? -No 2. IS THIS WORKER'S COMP? PLEASE VERIFY IF THIS IS WORKERS COMP AND DOCUMENT (We do not accept any new workers comp cases) -No 3. WHAT INSURANCE? -[employer] 4. HAVE YOU EVER BEEN SEEN BY A NEUROLOGIST BEFORE? IF YES, WHO AND WHEN? IS THIS A SECOND OPINION? -No 5. PATIENT IS SCHEDULED ON/WITH: -06/19/2023 with Pasquale Alexander documented [facility] Telephone encounter Note* Telephone Encounter - Kirstie Sung - 06/05/2023 10:26 AM EST Please ask the following questions to the new patient that you are schedulin. IS THIS DUE TO AN ACCIDENT? -No 2. IS THIS WORKER'S COMP? PLEASE VERIFY IF THIS IS WORKERS COMP AND DOCUMENT (We do not accept any new workers comp cases) -No 3. WHAT INSURANCE? -[employer] 4. HAVE YOU EVER BEEN SEEN BY A NEUROLOGIST BEFORE? IF YES, WHO AND WHEN? IS THIS A SECOND OPINION? -No 5. PATIENT IS SCHEDULED ON/WITH: -06/19/2023 with Pasquale Alexander [facility] [id number] Miscellaneous Notes* Telephone Encounter - Aster Guthrie CMA - 06/04/2023 8:29 AM EST Blanca pickard stated she went to the hospital yesterday in [place] she was having a bad flare and her heart was beating 100 bpm. She has her EMG scheduled on June 08 and her ECHO scheduled June 05. She also stated the head worker wouldn't do anything for her until she gets her ECHO done. She ask if you can look at her chart from yesterday. Please advise. Thanks * Telephone Encounter - Aster Guthrie CMA - 06/04/2023 8:29 AM EST Blanca called back again was wondering if you can place and referral for EMG they stated she didn't need one. She is currently at the hospital again for chest pains she feels she needs one and doesn't know what's going on with her. She wants the EMG of her whole body??? Please advise. Thanks * Telephone Encounter - Sherman Calle MD - 06/04/2023 8:29 AM EST Will discuss the need for EMG when she come to the clinic as there might be no need for that * Telephone Encounter - Aster Guthrie CMA - 06/04/2023 8:29 AM EST ..Spoke with Blanca gave message from dr calle. Pt understood * Telephone Encounter - Clemencia Kapadia CMA - 06/04/2023 8:29 AM EST Pt calling back with wanting you to be aware of her previous tachycardia and systolic BP running high. Family doctor wants her to take OTC Asprin to help; States this helped a lot. Metoprolol tartrate 25mg BID was started Sunday but not able to check BP and HR. Procardia didn't help when she was on that last. Would like your opinion on if Metoprolol is safe for her kidneys and her other medical dx.Please advise documented in this encounterMart[facility]02-[facility]-2024 Telephone encounter Note* Telephone Encounter - Aster Guthrie CMA - 06/04/2023 8:29 AM EST Blanca called stated she went to the hospital yesterday in [place] she was having a bad flare and her heart was beating 100 bpm. She has her EMG scheduled on June 08 and her ECHO scheduled June 05. She also stated the head worker wouldn't do anything for her until she gets her ECHO done. She ask if you can look at her chart from yesterday. Please advise. Thanks [facility]02-05-2024 Telephone encounter Note* Telephone Encounter - Aster Guthrie CMA - 06/04/2023 8:29 AM EST Blanca called back again was wondering if you can place and referral for EMG they stated she didn't need one. She is currently at the hospital again for chest pains she feels she needs one and doesn't know what's going on with her. She wants the EMG of her whole body??? Please advise. Thanks [facility]02-05-2024 Telephone encounter Note* Telephone Encounter - Sherman Calle MD - 06/04/2023 8:29 AM EST Will discuss the need for EMG when she come to the clinic as there might be no need for that [facility]02-05-2024 Telephone encounter Note* Telephone Encounter - Aster Guthrie CMA - 06/04/2023 8:29 AM EST ..Spoke with Blanca gave message from dr calle. Pt understood [facility] [id number] Telephone encounter Note* Telephone Encounter - Clemencia Kapadia CMA - 06/04/2023 8:29 AM EST Pt calling back with wanting you to be aware of her previous tachycardia and systolic BP running high. Family doctor wants her to take OTC Asprin to help; States this helped a lot. Metoprolol tartrate 25mg BID was started Sunday but not able to check BP and HR. Procardia didn't help when she was on that last. Would like your opinion on if Metoprolol is safe for her kidneys and her other medical dx.Please advise [facility]01-19-2024 Miscellaneous Notes* Telephone Encounter - Cynthia Dodge CMA - 05/18/2023 2:14 PM EST Left message for patient to remind them to bring their most current medication list with them to their appointment. documented in this encounterMart[facility]01-19-2024 Telephone encounter Note* Telephone Encounter - Cynthia Dodge CMA - 05/18/2023 2:14 PM EST Left message for patient to remind them to bring their most current medication list with them to their appointment. [facility] [id number] History of Present illness Narrative* Dee Dee Hernandez RN - 04/25/2023 4:00 PM EST Images from the original note were not included. VM left for patient to return call. MD Dee Dee Bradley, RN She is cleared from Hematology standpoint [...] RN Sent: 04/24/2023 3:33 PM EST To: Tuyet Warren MD Subject: surgical clearance DR. ALBRIGHT'S OFFICE CALLED TO CONFIRM HER SURGERY DATE FOR CLEARANCE IS 05/18/23 documented in this encounterMart[facility]12-[facility]-2023 Note04/06/2023 Subjective Patient ID: Blanca Rudolph is a 32 y.o. female HPI: This is a 80-hszst-jnu-female patient on [place] presenting to [facility] for a 3 month follow-up visit for preexposure prophylaxis to prevent HIV infection (PReP). The patient reports tolerance and compliance to ART without adverse reaction. Of note, the patient was found to have a RPR titer of 1:1024 on 11/22/2022 during her autoimmune work-up at [facility] for SLE and nephrotic syndrome. 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 female who presents for preexposure prophylaxis to prevent HIV infection (PReP). HPI: This is a 6-mrynl-ozb-female patient on [place] for preexposure prophylaxis to prevent HIV infection (PReP). The patient reports tolerance and compliance to ART without adverse reaction. Of note, the patient was found to have a RPR titer of 1:1024 on 11/22/2022 during her autoimmune work-up at [facility] for SLE and nephrotic syndrome. She [...] 1.0 times per week Types: Marijuana Comment: [place] pen Sexual activity: Not on file Other [...] on file. Allergies: Allerg (more content not included)...[facility] 12-15-2022 Note12/15/2022 Subjective Patient ID: Blanca Rudolph is a 32 y.o. female patient HPI: This is a 08-ckafz-dox-female patient who presents to clinic to establish preexposure prophylaxis to prevent HIV infection (PReP). Of note, the patient was previously admitted to [facility] on 11/22/2022; patient was recently diagnosed [...] and 12/02; [facility] She states partner was also treated with [...] List Diagnosis Lupus nephritis, ISN/RPS class IV ([facility] Exposure to HIV Past Surgical History: History [...] 1.0 times per week Types: Marijuana Comment: [place] pen Sexual activity: None Other Topics Concern None Social History Narrative None Social Determinants of Health Financial Resource Strain: Not on file Food Insecurity: Not on file Transp (more content not included)...[facility] 12-05-2022 NoteA prior authorization has been submitted via [facility]. We are waiting on a determination. Nora Laura CPhT [facility] 12/05/22 3:41 PMUnC[facility]08-08-2023 NotePA approved through 12/04/23. Patient start form filled out and sent via email to Dr Flowers. Will need patient signature as well. LM for pt, she might still be in the hospital. Gayathri Lynch, OpalD, BCACP 12/06/22 3:40 PM [facility] [phone] Clinic Fairview Hospital08-08-2023 NoteWe received a prescription from Dr. Flowers for a [facility] inpatient for Lupkynis 15.8mg BID. The patient is currently in house and has follow up scheduled with another cargo worker later in the week, but we will [...] will likely need to coordinate with the [facility] [place] program for the patient to access. Teagan Araiza, OpalD, BCACP, CSP 12/05/22 3:00 PM [facility] [id number] Clinic Fairview Hospital05-09-2023 NoteChief Complaint Referral Billy Zelaya PAC *UTI HPI [...] to stop - water only* avoids scented [employer] products no *has been using lavender scented [...] E&M of New Patient Moderate 45-59 Min 62206 Measure Post Void residual urine and/or bladder capacity by US- non-imaging 62532 Urnls Dip Stick Auto w/o Microscopy POC 09793 Orders: nitrofurantoin, See Instructions, 1 cap(s) Oral PRN after intercourse to prevent UTI, # 15 cap(s), Refills(s) 6, Pharmacy: [id number], 172, cm, 09/05/22 9:24:00 EDT, Height/Length Dosing, 132, kg, 09/05/22 9:24:00 EDT, Weight Dosing Follow-up With When Contact Information PAULINA JOY, CYNTHIA Haywood, URL Within 6 months [address] [facility] [place] [address] [facility] (1) Additional Instructions: Patient Education Urinary Tract [...] Current, Marijuana, Daily, 05 (more content not included)...[facility]Result Comment: Electronically Signed By: CYNTHIA GALLARDO PA-C.br\Date and Time Signed: 09/05/2309:30 [id number] Hospital Discharge instructions Patient Education 09/05/2022 10:28:15 Urinary Tract Infection, Adult Urinary Tract Infection, Adult A urinary tract infection (UTI) is an infection of any part of the urinary tract. The urinary tractincludes the kidneys, ureters, bladder, and urethra. These organs make, store, and get rid of urinein the body. An upper UTI affects the [...] Treatment for this condition includes: Antibiotic medicine. Ycaw-sfo-mhkgizz medicines to treat discomfort. Drinking enough water to stay hydrated. If you have frequent infections or have other conditions such as a kidney stone, you may need to see a health care provider who specializes in the urinary tract (urologist). In rare cases, urinary tract infections can cause sepsis. Sepsis is a life- threatening condition that occurs when the body responds to an infection. Sepsis is treated in the hospital with IV antibiotics, fluids, and other medicines. Follow these instructions at home: Medicines Take dhho-iwj-jlhjyfx and prescription medicines only as told by your health care provider. If you were prescribed an antibiotic medicine, take it as told by your health care provider. Do notstop using the antibiotic even if you start [...] told by your health care provider. Do notstop using the antibiotic even if you start to feel better. Keep all follow-up visits. This is important. This information is not intended to replace advice given to you by your health care provider. Make sure you discuss any questions you have with your health care provider. Document Revised: 11/26/2020 Document Reviewed: 11/26/2020 PLAXD Patient Education 2022 [employer]. Follow Up Care 08/15/2022 10:04:33 With:PAULINA JOY, CYNTHIA Haywood, URL Address: [address] [place] [address] Business (1) When:6 months [facility] 04-13-2023 Hospital Discharge instructions Patient Education 08/10/2022 12:59:46 Gastroesophageal Reflux Disease, Adult Gastroesophageal Reflux Disease, Adult Gastroesophageal reflux (DEEPAK) happens when acid from the stomach flows up into the tube that connects the mouth and the stomach (esophagus). Normally, food travels down the esophagus and stays in thestomach to be digested. However, when a person has DEEPKA, food and stomach acid sometimes move back [...] it does not close properly, and that allowsfood and stomach acid to go back up [...] powder, vinegar, hot sauces, and barbecue sauce. ?Andrews fruit juices and citrus fruits, such as oranges, shirley, and limes. ?Tomato-based foods, such as red sauce, chili, salsa, and pizza with red sauce. ?Fried and fatty foods, such as donuts, spanish fries, potato chips, and high-fat dressings. ?High-fat [...] contain nicotine or tobacco, such as cigarettes, e- cigarettes, and chewing tobacco. If you need help [...] to any changes in your symptoms. Take cjcx-ckh-pgategv and prescription medicines only as told by [...] you have new or worsening symptoms. Take ezbd-zgj-eaacqzt and prescription medicines only as told by [...] 01/24/2006 Document Revised: 10/23/2018 Document Reviewed: 10/23/2018 PLAXD Patient Education 2020 [employer]. 08/10/2022 11:48:18 Gastritis, Adult Gastritis, Adult Gastritis [...] medicines. These include steroids, antibiotics, and some lbdy-ghl-ztgtfdu medicines, such as aspirin or ibuprofen. Having [...] and a camera is passed down the esophagusand into the stomach (upper endoscopy). ?A test [...] Follow these instructions at home: Medicines Take prie-qqf-vmsqqla and prescription medicines only as told by your health care provider. If you were prescribed an antibiotic medicine, take it as told by your health care provider. Do notstop taking the antibiotic even if you start [...] 04/10/2002 Document Revised: 09/03/2018 Document Reviewed: 09/03/2018 PLAXD Patient Education 2020 [employer] Follow Up Care 07/24/2022 08:58:51 With:Katrin Resendiz CNP Address: When:3 months [facility] 03-14-2023 Evaluation + Plan noteExtracted from: Title:CSB GA Author:Brett Pratt MD Date:07/11/22 Plan [place] [employer] Anesthesiologists (ASA) physical status classification: Class III. Anesthetic Preoperative Plan: Anesthesia General. Future Appointments Appointment Date:07/17/2022 11:40:00 AM Scheduled Provider:Miki Mauricio MD Location:[facility] Appointment Type: Post Op 15 [facility]03-14-2023 Hospital Discharge instructions Patient Education [...] and water are not available, use hand care connector. ?Change your dressing as told by your [...] health care provider approves. General instructions Take zbxp-cpu-hsmjamk and prescription medicines only as told by your health care provider. To prevent or treat constipation while you are taking prescription pain medicine, your health care provider may recommend that you: ?Drink enough fluid to keep your urine clear or pale yellow. ?Take ppmi-ivf-nihmwse or prescription medicines. ?Eat foods that are [...] 04/16/2006 Document Revised: 03/29/2018 Document Reviewed: 10/02/2016 PLAXD Patient Education Jamalon. Follow Up Care 06/26/2022 11:12:42 With:Miki Mauricio Address: [address] [place] [phone] Business (1) When: Unknown Comments:Appointment has already been scheduled [facility]03-14-2023 NoteHistory and Physical Update H&P [...] mg, Oral, Daily Nexplanon, 68 mg, SubCutaneous Vera 325 mg-5 mg oral tablet, 1 tab(s), [...] Tobacco Use:., 02/16/2022 Family History Crohn's disease: Aunt.[facility]03-08-2023 Note [id number]:127[facility] 10-29-2019 Evaluation note* Diagnosis Bilateral pulmonary embolism ([facility]) October 2019- Primary Other pulmonary embolism and infarction History of DVT (deep vein thrombosis) Preoperative clearance Unspecified pre-operative examination documented in this encounter [facility] [id number] Evaluation note* Diagnosis Bilateral pulmonary embolism ([facility]) October 2019- Primary Other pulmonary embolism and infarction Personal history of PE (pulmonary embolism) Personal history of venous thrombosis and embolism Dyspnea on exertion Other dyspnea and respiratory abnormality Environmental allergies Other allergy, other than to medicinal agents documented [facility] this encounter [facility] Future Appointments Appointment Date:03/03/2022 12:45:00 PM Scheduled Provider: Location:[facility] Appointment Type:Surgery PAT COVID Testing Appointment Date:03/10/2022 01:00:00 PM Scheduled Provider: Location:[facility] Appointment Type:Surgery [facility] Evaluation + Plan note Future Appointments Appointment Date:03/13/2023 02:30:00 PM Scheduled Provider:CYNTHIA GALLARDO PA-C Location:[facility] Appointment Type:URO Office Visit [facility] evaluation note* Diagnosis Angina pectoris, unstable ([facility])- Primary Intermediate coronary syndrome documented in this encounter [facility]* Diagnosis Systemic lupus erythematosus, unspecified SLE type, unspecified organ involvement status ([facility])- Primary Stage IV lupus nephritis (WHO) ([facility]) 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 systemic steroid user Fibromyalgia Unspecified myalgia and myositis documented in this encounter [facility] SystemEvaluation note* Diagnosis Bilateral pulmonary embolism ([facility])- Primary Other pulmonary embolism and infarction [facility] Diagnosis Daily headache- Primary Migraine without aura and without status migrainosus, not intractable Vision changes Uncontrolled hypertension Fibromyalgia Unspecified myalgia and myositis [facility] Diagnosis Lupus nephritis ([facility] Primary Systemic lupus erythematosus Essential hypertension Unspecified essential hypertension [facility] Diagnosis BMI 39.0-39.9,adult- Primary Stage IV lupus nephritis (WHO) ([facility]) Systemic lupus erythematosus, unspecified SLE type, unspecified organ involvement status ([facility]) Encounter for nursing home use of mycophenolate mofetil [facility] Narrative No data available for this section [facility] Hospital Discharge instructions No data available for this section [facility] InstructionsNot on filedocumented in this encounter [facility] on filedocumented in this encounter [facility]ructionsNot on filedocumented in this encounter [facility]ructionsNot on filedocumented in this encounter [facility]Not on filedocumented in this encounter [facility]ructionsNot on filedocumented in this encounter [facility]ructionsNot on filedocumented in this encounter [facility]Not on filedocumented in this encounter [facility]ructionsNot on filedocumented in this encounter [facility]ructionsNot on filedocumented in this encounter [facility]ructionsNot on filedocumented in this encounter [facility]ructionsNot on filedocumented in this encounter [facility]ructionsNot on filedocumented in this encounter [facility]ructionsNot on filedocumented in this encounter [facility]ructionsNot on filedocumented in this encounter [facility]InstructionsNot on filedocumented in this encounter [facility]InstructionsNot on filedocumented in this encounter [facility]InstructionsNot on filedocumented in this encounter [facility] SystemInstructionsNot on filedocumented in this encounter [facility] SystemInstructionsNot on filedocumented in this encounter [facility] No data available for this section [facility] Reason for referral (narrative)* Consultation (Routine) - Pending Review Specialty Diagnoses / Procedures Referred By Contviolet t Referred To Contact Nutrition Diagnoses BMI 39.0-39.9,adult Sherman Calle MD [address] [address] Yazmin Vieira, RD [address] [place] [address] Referral ID Status Reason Start Date Expiration Date V isits Requested Visits Authorized [id number] Pending Review 07/31/2023 07/30/2024 1 1 [facility] Summary Purpose Family History No Family History [...] Code 05/25/2020 1:53 PM 05/26/2020 2:43 PM Latest Code Status on File Code Status Date Activated Date Inactivated Comments Full Code 12/17/2022 9:01 PM 12/19/2022 11:22 AM Code Status History Code Status Date Activated Date Inactivated Comments Full Code 11/22/2022 5:10 PM 12/04/2022 8:24 PM Full Code 06/09/2020 10:32 PM 06/16/2020 12:01 AM Full Code 06/02/2020 11:25 AM 06/05/2020 5:47 PM Full Code 05/25/2020 1:53 PM 05/26/2020 2:43 PM Latest Code Status on File Code Status Date Activated Date Inactivated Comments Full Code 06/19/2023 2:45 PM Code Status History Code Status Date Activated Date Inactivated Comments Full Code 12/17/2022 9:01 PM 12/19/2022 11:22 AM Full Code 11/22/2022 5:10 PM 12/04/2022 8:24 PM Full Code 06/09/2020 10:32 PM 06/16/2020 12:01 AM Full Code 06/02/2020 11:25 AM 06/05/2020 5:47 PM Latest Code Status on File Code Status Date Activated Date Inactivated Comments Full Code 06/19/2023 2:45 PM 06/21/2023 12:58 PM Latest Code Status on File Code Status Date Activated Date Inactivated Comments Full Code 06/19/2023 2:45 PM 06/21/2023 12:58 PM Code Status History Code Status Date Activated Date Inactivated Comments Full Code 12/17/2022 9:01 PM 12/19/2022 11:22 AM Full Code 11/22/2022 5:10 PM 12/04/2022 8:24 PM Full Code 06/09/2020 10:32 PM 06/16/2020 12:01 AM Full Code 06/02/2020 11:25 AM 06/05/2020 5:47 PM Reason for Referral Specialty Diagnoses / Procedures Referred By Noris lassiter Referred To Contact Diagnoses Daily headache Migraine without aura and without status migrainosus, not intractable Fibromyalgia Pasquale Alexander, RUFINO [address] [facility] [place] [address] Referral ID Status Reason Start Date Expiration Date V isits Requested Visits Authorized [id number] Pending Review 1 1 Specialty Diagnoses / Procedures Referred By Contac t Referred To Contact Diagnoses Migraine without aura and without status migrainosus, not intractable Uncontrolled hypertension Pasquale Alexander PA-C [address] [place] [address] Referral ID Status Reason Start Date Expiration Date V isits Requested Visits Authorized [id number] Pending Review 1 1 Specialty Diagnoses / Procedures Referred By Contac t Referred To Contact Radiology Diagnoses Daily headache Migraine without aura and without status migrainosus, not intractable Vision changes Procedures MR brain without contrast Pasquale Alexander PA-C [address] [place] [address] Referral ID Status Reason Start Date Expiration Date V isits Requested Visits Authorized [id number] Pending Review 07/05/2023 07/04/2024 1 1 Specialty Diagnoses / Procedures Referred By Contac t Referred To Contact Diagnoses Fibromyalgia Sherman Calle MD [address] [address] Referral ID Status Reason Start Date Expiration Date Visits Re quested Visits Authorized [id number] Closed 1 1 Specialty Diagnoses / Procedures Referred By Contac t Referred To Contact Diagnoses Angina pectoris, unstable ([facility]) Procedures Nuc stress exercise Simone Franklin MD [address] [place] [address] Referral ID Status Reason Start Date Expiration Date V isits Requested Visits Authorized [id number] Pending Review 06/06/2023 06/05/2024 5 5 Additional Source Comments Patient Care team informatio n (unrecognized section and content) Stationary Equipment Mechanic Relationship Specialty Start Date End Date Billy Zelaya PA-C [address] [place] [id number] PCP - General Physician Accountant Controller 03/17/23 Stationary Equipment Mechanic Relationship Specialty Start Date End Date Billy Zelaya PA-C [address] [place] [address] PCP - General Physician Accountant Controller 05/10/23 Stationary Equipment Mechanic Relationship Specialty Start Date End Date Billy Zelaya PA-C [address] [place] [address] PCP - General Physician Accountant Controller 05/10/23 Stationary Equipment Mechanic Relationship Specialty Start Date End Date Billy Zelaya PA-C [address] [place] [address] PCP - General Physician Accountant Controller 06/05/23 Stationary Equipment Mechanic Relationship Specialty Start Date End Date Billy Zelaya PA-C [address] [place] [address] PCP - General Physician Accountant Controller 06/05/23 Stationary Equipment Mechanic Relationship Specialty Start Date End Date Billy Zelaya PA-C [address] [place] [address] PCP - General Physician Accountant Controller 06/05/23 Stationary Equipment Mechanic Relationship Specialty Start Date End Date Billy Zelaya PA-C [address] [place] [address] PCP - General Physician Accountant Controller 06/05/23 Stationary Equipment Mechanic Relationship Specialty Start Date End Date Billy Zelaya PA-C [address] [place] [address] PCP - General Physician Accountant Controller 06/05/23 Stationary Equipment Mechanic Relationship Specialty Start Date End Date Billy Zelaya PA-C [address] [place] [address] PCP - General Physician Accountant Controller 06/05/23 Stationary Equipment Mechanic Relationship Specialty Start Date End Date Billy Zelaya PA-C [address] [place] [address] PCP - General Physician Accountant Controller 06/05/23 Stationary Equipment Mechanic Relationship Specialty Start Date End Date Billy Zelaya PA-C [address] [place] [address] PCP - General Physician Accountant Controller 06/05/23 Stationary Equipment Mechanic Relationship Specialty Start Date End Date Billy Zelaya PA-C [address] [place] [address] PCP - General Physician Accountant Controller 06/05/23 Stationary Equipment Mechanic Relationship Specialty Start Date End Date Billy Zelaya PA-C [address] [place] [id number] PCP - General Physician Accountant Controller 06/05/23 Stationary Equipment Mechanic Relationship Specialty Start Date End Date Billy Zelaya PA-C [address] [place] [phone] PCP - General Physician Accountant Controller 06/05/23 Stationary Equipment Mechanic Relationship Specialty Start Date End Date Billy Zelaya PA-C [address] [place] [phone] PCP - General Physician Accountant Controller 06/05/23 Stationary Equipment Mechanic Relationship Specialty Start Date End Date Billy Zelaya PA-C [address] [place] [address] PCP - General Physician Accountant Controller 06/05/23 Stationary Equipment Mechanic Relationship Specialty Start Date End Date Billy Zelaya PA-C [address] [place] [address] [phone] PCP - General Physician Accountant Controller 06/05/23 Stationary Equipment Mechanic Relationship Specialty Start Date End Date Billy Zelaya PA-C [address] [place] [phone] PCP - General Physician Accountant Controller 06/05/23 Stationary Equipment Mechanic Relationship Specialty Start Date End Date Billy Zelaya PA-C [address] [place] [phone] PCP - General Physician Accountant Controller 06/05/23 Stationary Equipment Mechanic Relationship Specialty Start Date End Date Billy Zelaya PA-C [address] [place] [id number] PCP - General Physician Accountant Controller 06/05/23 Stationary Equipment Mechanic Relationship Specialty Start Date End Date Billy Zelaya PA-C [address] [place] [phone] PCP - General Physician Accountant Controller 06/05/23 Stationary Equipment Mechanic Relationship Specialty Start Date End Date Billy Zelaya PA-C [address] [place] [id number] PCP - General Physician Accountant Controller 06/05/23 Stationary Equipment Mechanic Relationship Specialty Start Date End Date Billy Zelaya PA-C [address] [place] [phone] PCP - General Physician Accountant Controller 06/05/23 Stationary Equipment Mechanic Relationship Specialty Start Date End Date Billy Zelaya PA-C [address] [place] [id number] PCP - General Physician Accountant Controller 06/05/23 Stationary Equipment Mechanic Relationship Specialty Start Date End Date Billy Zelaya PA-C [address] [place] [phone] PCP - General Physician Accountant Controller 06/05/23 INFORMATION SOURCE (unrecogn ized section and content) DATE CREATED AUTHOR 03/23/2022 [facility] DATE CREATED AUTHOR AUTHOR'S ORGANIZ ATION 02/12/2023 [facility] DATE CREATED AUTHOR AUTHOR'S ORGANIZ ATION 06/11/2023 [facility] DATE CREATED AUTHOR AUTHOR'S ORGANIZ ATION 06/17/2023 [facility] DATE CREATED AUTHOR AUTHOR'S ORGANIZ ATION 07/01/2023 [facility] DATE CREATED AUTHOR AUTHOR'S ORGANIZ ATION 07/09/2023 [facility] DATE CREATED AUTHOR AUTHOR'S ORGANIZ ATION 07/19/2023 [facility] DATE CREATED AUTHOR AUTHOR'S ORGANIZ ATION 08/01/2023 [facility] DATE CREATED AUTHOR AUTHOR'S ORGANIZ ATION 08/03/2023 [facility] DATE CREATED AUTHOR AUTHOR'S ORGANIZ ATION 08/15/2023 [facility] Reason for Visit (unrecogniz ed section and content) Reason Onset Date Comments Cardiac Clearance 06/06/2023 Reason Comments Med Refill Reason Onset Date Comments Surgical Or Dental Clearance 07/03/2023 Reason Comments New Patient Specialty Diagnoses / Procedures Referred By Noris t Referred To Contact Neurology Diagnoses Nonintractable headache, unspecified chronicity pattern, unspecified headache type Billy Zelaya, PA-C [address] [place] [address] James Ha MD [address] [place] [address] MAVIS Berry, [place] [address] Referral ID Status Reason Start Date Expiration Date Visits Requested Visits Authorized [id number] Pending Review Specialty Services Required 05/30/2023 05/29/2024 1 1 Reason Onset Date Comments Prior Authorization 07/13/2023 Reason Comments New Patient PATIENT HAS LUPUS/FI BROMALAGIA AND DX IN OCTOBER 2022 Cough DENIES Wheezing DENIES Shortness of Breath DENIES Specialty Diagnoses / Procedures Referred By Noris t Referred To Contact Pulmonary Medicine Diagnoses Personal history of PE (pulmonary embolism) Billy Zelaya PA-C [address] [place] [address] [facility] [address] [facility] [place] [address] Referral ID Status Reason Start Date Expiration Date Visits Requested Visits Authorized [id number] Pending Review Specialty Services Required 06/12/2023 06/11/2024 1 1 FOR RECORDS PERTAINING TO PATIENTS WHO ARE [...] BE BASED ON THE PRIMARY CLINICAL RECORDS. [facility] [employer] provides no warranty or guarantee of the accuracy or completeness of information in this document.
[2023-08-16 06:26] LABS: Basophils Percent Auto 0.4 % (0.2-2.0); Eosinophils Percent Auto 0.4 % (0.9-7.0); Hematocrit 37.3 % (36.0-48.0); Hemoglobin 12.6 g/dL (12.0-16.0); Immature Granulocytes Abs Auto 0.04 10^3/uL (0.00-0.03); Immature Granulocytes Pct Auto 0.4 % (0.0-0.5); Lymphocytes Absolute Auto 2.7 10^3/uL (1.2-3.8); Mean Corpuscular HGB Conc 33.8 g/dL (29.9-35.2); Mean Corpuscular Hemoglobin 31.3 pg (26.7-34.0); Mean Corpuscular Volume 92.6 fL (81.0-99.0); Mean Platelet Volume 8.9 fL (9.5-13.5); Monocytes Absolute Auto 0.8 10^3/uL (0.3-0.8); Monocytes Percent Auto 8.2 % (1.7-12.0); Neutrophils Absolute Auto 6.3 10^3/uL (1.4-6.5); Neutrophils Percent Auto 63.6 % (43.0-75.0); Platelet Count 287 10^3/uL (150-450); Red Blood Count 4.03 10^6/uL (4.20-5.40); Red Cell Distribution Width 12.1 % (11.0-15.0); White Blood Count 9.9 10^3/uL (4.0-11.0)
[2023-08-16 06:51] LABS: HCG Quantitative <1 mIU/mL
[2023-08-16] MEDS: LACTATED RINGER'S SOLUTION 1,000 ML 50 ML IV (07:07)
--- NOTE | 2023-08-16 08:32 | PM.ONB ---
Brief Operative Note Date of procedure: 08/16/23 Pre-op diagnosis general: pelvic pain, menorrhagia Post-op diagnosis: same as pre-op Procedure: NAME OF PROCEDURE: [ D&c hysteroscopy, diagnostic laparoscopy] PROCEDURE: The patient was taken back to the Operating Room where she was prepped and draped in normal sterile fashion after being placed under general anesthesia without difficulty. She was also placed in the dorsal lithotomy position. A weighted speculum was placed in the patient?s vagina. The anterior lip of the cervix was identified and grasped with a single tooth tenaculum. The patient?s uterus was then sounded roughly to [? 8] cm. The patient was then gently dilated using Hegar dilators. The hysteroscope was passed through the patient?s cervix into the uterus. Both ostia were identified. fluffy appearing endometrium. No gross evidence of malignancy, no gross evidence of polyps or fibroids. Gentle currettage was performed until a gritty texture was noted after The hysteroscope was removed from the uterus. The endometrial curettings were sent out to pathology. The single tooth tenaculum was then removed from the patient's anterior lip of the cervix where excellent hemostasis was noted. All instruments were removed from the patient?s vagina. The patient tolerated the procedure well. Sponge, lap and needle counts were correct times two. The patient was taken to the Recovery Room in stable condition.Room in stable condition. A sponge stick was placed into the patient's vagina. Attention was turned to the patient's abdomen, where a small umbilical incision was made. The fascia was tented using Darron clamps and the fascia was entered sharply. Confirmation of intraabdominal placement of the 10 mm port was confirmed under direct visualization using a laparoscope. The patient's abdomen was then insufflated using CO2 gas with approximately 4 liters. A second port was placed left laterally, this was done under direct visualization with a 5 mm port. Survey of the patient's abdomen demonstrated normal liver and gallbladder. Survey of the patient's pelvic anatomy demonstrated normal appearing rt and lt ovary and tubes as well as normal appearing uterus. No endometrial implants could be noted, no evidence of any pelvic disease was seen, normal appearing pelvic cavity. All instruments were removed from the patient's abdomen. The patient's abdomen was deinsufflated of CO2 gas. The patient tolerated the procedure well. Sponge stick was removed from the patient's vagina. The patient's infraumbilical fascia was closed using #0 Vicryl on a GI needle. The patient's skin was closed laterally and infraumbilically using 4-0 Vicryl. The patient tolerated the procedure well. Sponge, lap and needle counts were correct x 2. The patient was taken to Recovery Room in stable condition. Anesthesia: SARAH Surgeon: Mayco Albright Executive Coach: Kristina Viera Estimated blood loss (mL): 5 Pathology: other (endometrial currettings) Condition: stable Disposition: PACU Urinary Catheter Management Urinary Catheter Management Urethral: Cath placed during this visit: no
[2023-08-16] MEDS: HYDROCODONE/ACET 5-325 MG TABLET 1 TAB PO (09:33)
== END 2023-08-16 10:35 | disposition home or self-care (01) ==
PROVIDERS: Visit Provider Obstetrics & Gynecology
PROC: (CPT 00840; principal; 2023-08-16 07:30)
DX: N92.0 Excessive and frequent menstruation with regular cycle (principal); R10.2 Pelvic and perineal pain; Z97.5 Presence of (intrauterine) contraceptive device; I10 Essential (primary) hypertension; Z79.01 Long term (current) use of anticoagulants; Z86.718 Personal history of other venous thrombosis and embolism; Z86.711 Personal history of pulmonary embolism; N04.9 Nephrotic syndrome with unspecified morphologic changes; Z86.16 Personal history of COVID-19; F41.9 Anxiety disorder, unspecified; M79.7 Fibromyalgia; Z98.51 Tubal ligation status; Z90.49 Acquired absence of other specified parts of digestive tract; Z87.891 Personal history of nicotine dependence
CPT/HCPCS: 00840; 00952; 49320; 58558; 36415; 84702; 85025; 88305; J1094; J1720; J2704

== ENCOUNTER 2024-01-25 09:35 | Emergency (ER) | payer OTHER, SELFPAY ==
[2024-01-25 09:45] VITALS: BP 147/100; PULSE 85; TEMP 36.7; O2SAT 94; BMI 41.8
[2024-01-25 09:53] LABS: Glucometer 111 mg/dL (74-106)
--- NOTE | 2024-01-25 10:00 | CT_ITS ---
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 Findings: The paranasal sinuses and mastoid air cells are well aerated. No air-fluid levels. No extra-axial fluid collection. No intra-axial or extra-axial bleed. No mass effect or midline shift. The muñiz-white matter differentiation is preserved. The brain parenchymal volume is age appropriate. The ventricles are nondilated. The basal cisterns are patent. The craniovertebral junction is unremarkable. CT/CT head/brain wo con IMPRESSION: 1. No acute intracranial abnormality. MRI is more sensitive for the evaluation of acute ischemia. Electronically authenticated by: BENEDICTO CHRIS Date: 01/25/2024 10:22
--- OUTSIDE RECORDS SUMMARY | 2024-01-25 10:07 | XMS_ITS | CCD ---
Author Organization [facility] Care Team Providers Care Reproductive Healthcare Assistant Name Role Phone BILLY ZELAYA Primary Care Physician Unavailab MELONY Simms Consulting Unavailable BRANDY ALEXIS Primary Care Unavailable MELONY THURSTON Attending Unavailable MELONY THURSTON Admitting Unavailable JOSE RAMON, DR HAGAN Consulting Unavailable BRANDY ALEXIS Primary Care Unavailable JOSE RAMON, DR HAGAN Attending Unavailable JOSE RAMON, DR HAGAN Admitting Unavailable Issa Guerrero Primary Care UnavailBilly Salcedo PA-C Primary Care Provider Billy Zelaya PA-C Primary Care Provider Billy Zelaya PA-C Primary Care Provider SIMONE FRANKLIN Attending Unavailable SIMONE FRANKLIN Referring Unavailable BILLY ZELAYA Primary Care Unavailable SIMONE FRANKLIN Attending Unavailable SIMONE FRANKLIN Referring Unavailable BILLY ZELAYA Primary Care Unavailable SIMONE FRANKLIN Attending Unavailable SIMONE FRANKLIN Referring Unavailable BILLY ZELAYA Primary Care Unavailable CHILO BAIN Referring Unavailable BILLY ZELAYA Primary Care Unavailable PASQUALE ALEXANDER Attending Unavailable BILLY ZELAYA Referring Unavailable BILLY ZELAYA Primary Care Unavailable MAYLIN PORTILLO Attending Unavailable BILLY ZELAYA Referring Unavailable BILLY ZELAYA Primary Care Unavailable Mayco Albright Attending Provider [phone] Mayco Albright Attending Unavailable Mayco Albright Admitting Unavailable NONE, XXXX Primary Care Physician Unavailab MAUREEN Toney Attending Unavailable SHERMAN CALLE Referring Unavailable BILLY ZELAYA Primary Care Unavailable MAUREEN LOPEZ Attending Unavailable LINDSEY JENNINGS Primary Care Unavailable BILLY ZELAYA Referring Unavailable CYNTHIA GALLARDO Attending Unavailable CYNTHIA GALLARDO Attending Unavailable Billy Zelaya Primary Care Unavailable Saw Huynh Attending Unavaila NO Foreman Attending Unavailable JOSE RAMON, MAYCO Attending Unavailable CHERYL, MICAELA Attending Unavailable JOSE RAMON, MAYCO Attending Unavailable JOSE RAMON, MAYCO Attending Unavailable JOSE RAMON, MAYCO Attending Unavailable RUSHER, PASQUALE S Attending Unavailable RUSHER, PASQUALE S Attending Unavailable RUSHER, PASQUALE S Attending Unavailable RUSHER, PASQUALE S Referring Unavailable JOSE RAMON, MAYCO Attending Unavailable AIYEWUNMI, ORIN Attending Unavailable AIYEWUNMI, ORIN Attending Unavailable AIYEWUNMI, ORIN Attending Unavailable AIYEWUNMI, ORIN Attending Unavailable CALLE, SHERMAN N Attending Unavailable ZELAYA, BILLY A Referring Unavailable ZELAYA, BILLY A Primary Care Unavailable CALLE, SHERMAN N Attending Unavailable ZELAYA, BILLY A Referring Unavailable ZELAYA, BILLY A Primary Care Unavailable CALLE, HSERMAN N Attending Unavailable ZELAYA, BILLY A Referring Unavailable ZELAYA, BILLY A Primary Care Unavailable CALLE, SHERMAN N Attending Unavailable ZELAYA, BILLY A Referring Unavailable ZELAYA, BILLY A Primary Care Unavailable CALLE, SHERMAN N Referring Unavailable ZELAYA, BILLY A Primary Care Unavailable CALLE, SHERMAN N Attending Unavailable ZELAYA, BILLY A Referring Unavailable DICK, LINDSEY Primary Care Unavailable ELMER TORO Attending Unavailable DICK, LINDSEY Referring Unavailable DICK, [place] Primary Care Unavailable DICK, LINDSEY Referring Unavailable DICK, [place] Primary Care Unavailable CALLE, SHERMAN N Attending Unavailable DICK, LINDSEY Referring Unavailable DICK, [place] Primary Care Unavailable CALLE, SHERMAN N Referring Unavailable DICK, LINDSEY Primary Care Unavailable WILFRID, BILLY A Primary Care Unavailable ORIN GAYTAN Attending Unavailable FREDERICK BAUGH Consulting Unavailable CORTEZ, ETELVINA Admitting Unavailable QAFISHEH, [...] Unavailable ZELAYA, BILLY A Primary Care Unavailable GOLKALIN, MILLA Jenkins Attending Unavailable ZELAYA, BILLY A Referring Unavailable ZELAYA, BILLY A Primary Care Unavailable GOLIVER, MILLA A Attending Unavailable GOLIVER, MILLA A Referring Unavailable ZELAYA, BILLY A Primary Care Unavailable DICK, LINDSEY Primary Care Unavailable PASQUALE ALEXANDER Attending Unavailable ZELAYA, BILLY A Referring Unavailable DICK, [place] Primary Care Unavailable CALLESHERMAN Referring Unavailable DICK, [place] Primary Care Unavailable DICK, [place] Primary Care Unavailable MELLYJAREDNAHUM Attending Unavailable DICK, [place] Primary Care Unavailable DICK, LINDSEY Primary Care Unavailable SARAH MAC Attending Unavailable ELMER TORO Referring Unavailable DICK, LINDSEY Primary Care Unavailable ZELAYA, BILLY A Primary Care Unavailable IZA SOSA Attending Unavailable DONALDO HAHN Attending Unavailable DONALDO HAHN Referring Unavailable ZELAYA, BILLY A Primary Care Unavailable DICK, [place] Primary Care Unavailable SADE ROSAS Referring Unavailable DICK, [place] Primary Care Unavailable DICK, LINDSEY Primary Care Unavailable DONNIE HERRERA Attending Unavailable ZELAYA, BILLY A Primary Care Unavailable SARAH MAC Attending Unavailable SARAH MAC Attending Unavailable SARAH MAC Referring Unavailable ZELAYA, BILLY A Primary Care Unavailable SIMONE FRANKLIN Attending Unavailable [...] A Primary Care Unavailable SHANTEL BOWDEN Attending UnavailSHANTEL Anderson Attending UnavailSHANTEL Anderson Referring Unavailabl e WILFRID, BILLY A Primary Care Unavailable Allergies Allergy Classification Reported Allergen(s) Allergy Type Date of Onset Reaction(s) Facility (20 sources) Cephalexin; Translations: [cephalexin] Drug Allergy 05-03-19 Pain in lower limb (finding) [facility] [place] (20 sources) Ibuprofen; Translations: [ibuprofen] Drug Allergy 12-16-19 medication interference [facility] (20 sources) Sulfamethoxazole / Trimethoprim; Translations: [sulfamethoxazole-t rimethoprim] Drug Allergy 05-14-19 Eruption of skin (disorder), Rash [facility] Comment on above: ??? pt says she gets 'heat rash' often. however developed 'worse' rash than usual shortly after taking bactrim. has taken previously with NO reaction. (7 sources) Sulfamethoxazole / Trimethoprim; Translations: [SULFAMETHOXAZOLE-T RIMETHOPRIM] Drug Allergy 05-14-19 [facility] (20 sources) Garlic preparation; Translations: [GARLIC] Drug Allergy 06-19-19 [facility] (1 source) Sulfamethoxazole / Trimethoprim; Translations: [Bactrim] Drug Allergy [facility] (1 source) No Known Medication Allergies; Translations: [No Known Medication Allergies] Propensity to adverse reactions (disorder) [facility] Medications Current Medications Medication Drug Class(es) [...] source) Opioid Agonist Start: 07-11-2022 End: 07-13-2022 [place] 325 mg-5 mg oral tablet 1 tab(s), Oral, q6hr as needed for pain, 10 tab(s), Refill(s) 0, [facility] #[id number], 175.2, cm, 07/05/22 12:31:00 EST, Height/Length Dosing, 136, kg, 07/05/22 12:31:00 EST, Weight Dosing Start Date: 07/11/22 Stop Date: 07/13/22 Status: Ordered [id number] 200 actuat albuterol 0.09 mg/actuat metered dose inhaler (1 source) beta2-Adrenergi c Agonist Start: 08-02-2023 take 2 puff(s) by inhalation every six hours as needed for wheezing albuterol (PROVENTIL HFA;VENTOLIN HFA) 90 mcg/actuation inhaler Indications: Dyspnea on exertion Inhale 2 puffs every 6 (six) hours as needed for wheezing. 18 g 11 08/02/2023 Active Albuterol (Eqv-ProAir HFA) 90 mcg/inh inhalation aerosol (1 source) Start: 08-23-2023 Albuterol (Eqv-ProAir HFA) 90 mcg/inh inhalation aerosol Refill(s) 0 Start Date: 08/23/23 Status: Ordered allopurinol 100 mg oral tablet (16 sources) Xanthine Oxidase Inhibitor Start: 08-23-2023 allopurinol 100 mg Tab Refills(s) 0 Start Date: 08/23/23 Status: Ordered take 1 tablet by mouth in the mo rning allopurinoL (ZYLOPRIM) 100 mg tablet Take 1 tablet (100 mg total) by mouth in the morning. 0 Active amitriptyline hydrochloride 25 mg oral tablet (20 sources) Tricyclic Antidepressant Start: 08-23-2023 amitriptyline 25 mg Tab Refills(s) 0 Start Date: 08/23/23 Status: Ordered Start: 07-05-2023 amitriptyline (ELAVIL) 25 mg tablet [...] Start: 04-02-2023 take 1 tablet by chavez th once daily amitriptyline (ELAVIL) 10 mg tablet [...] mg oral tablet (20 sources) Loop Diuretic Start: 08-23-19 bumetanide 2 mg Tab Refills(s) 0 Start Date: 08/23/23 Status: Ordered Start: 12-28-2022 take 1 tablet by chavez th twice daily before mealtime bumetanide (BUMEX) 2 mg tablet Take 1 tablet (2 mg total) by mouth 2 (two) times a day before meals. 90 tablet 0 12/28/2022 Active carvedilol 6.25 mg oral tablet (8 sources) alpha-Adrenergic Edgar, beta-Adrenergic Edgar Start: 08-23-2023 carvedilol 6.25 mg Tab Refills(s) 0 Start Date: 08/23/23 Status: Ordered Start: 07-12-2023 take 1 tablet by chavez th in the morning, then take 1 tablet by mouth at bedtime carvediloL (COREG) 6.25 mg tablet Take 1 tablet (6.25 mg total) by mouth in the morning and 1 tablet (6.25 mg total) before bedtime. 60 tablet 11 07/12/2023 Active cetirizine hydrochloride 10 mg oral tablet (1 source) Histamine-1 Receptor Antagonist Start: 08-23-2023 cetirizine 10 mg Tab Refills(s) 0 Start Date: 08/23/23 Status: Ordered cholecalciferol 1.25 mg oral capsule (17 sources) Vitamin D take 1 capsule by mouth every week cholecalciferol (VITAMIN D3) 50,000 units capsule Take 1 capsule (50,000 Units total) by mouth once a week. 0 Active cyclobenzaprine hydrochloride 10 mg oral tablet (4 sources) Muscle Relaxant Start: 06-16-2023 take 1 tablet by mouth twice daily as needed for muscle spasms cyclobenzaprine (FLEXERIL) 10 mg tablet Take 1 tablet (10 mg total) by mouth 2 (two) times a day as needed for muscle spasms. 10 tablet 0 06/16/2023 Active dicyclomine hydrochloride 10 mg oral capsule (20 sources) Anticholinergic Start: 08-23-2023 dicyclomine 10 mg Cap Refills(s) 0 Start Date: 08/23/23 Status: Ordered Start: 02-16-2022 End: 02-11-2023 take 1 capsule by mouth four times daily Bentyl 10 mg Cap 10 mg = 1 cap(s), Oral, QID, X 30 day(s), # 120 cap(s), Refills(s) 11, [id number], 172, cm, 02/16/22 12:26:00 EDT, Height/Length Dosing, 133, kg, 02/16/22 12:26:00 EDT, Weight Dosing Start Date: 02/16/22 Stop Date: 02/11/23 Status: Ordered emtricitabine 200 mg / tenofovir alafenamide 25 mg oral tablet (18 sources) Human Immunodeficiency Virus Nucleoside Analog Reverse Transcriptase Inhibitor Start: 08-23-2023 Des[place] 200 mg-25 mg oral tablet Refill(s) 0 Start Date: 08/23/23 Status: Ordered take 1 tablet by chavez th once in the morning DESCOVY 200-25 mg per tablet Take 1 tabl et by mouth in the morning. 0 Active 0.4 ml enoxaparin sodium 100 mg/ml prefilled syringe (4 sources) Low Molecular Weight Heparin Start: 07-05-2023 End: 07-15-2023 inject 0.4 mL by subcutaneous injection in the morning enoxaparin (LOVENOX) 40 mg/0.4 mL syringe Inject 0.4 mL (40 mg total) under the skin in the morning for 10 days. 4 mL 0 07/05/2023 07/15/2023 Active ergocalciferol 1.25 mg oral capsule (1 source) Provitamin D2 Compound Start: 08-23-2023 ergocalciferol 50,000 intl units Cap Refills(s) 0 Start Date: 08/23/23 Status: Ordered etonogestrel 68 mg drug implant (10 sources) Progestin Start: 02-16-2022 Nexplanon 68 mg, SubCutaneous, in pts right arm, Refills(s) 0, control/menstrual regulation Start Date: 02/16/22 Status: Ordered Start: 02-16-2022 Nexplanon Refi lls(s) 0, control/menstrual regulation Start Date: 02/16/22 Status: Ordered Start: 02-16-2022 Nexplanon Refi lls(s) 0 Start Date: 02/16/22 Status: Ordered famotidine 20 mg oral tablet (14 sources) Histamine-2 Receptor Antagonist Start: 07-05-2022 take 1 tablet by mouth in the morning famotidine (PEPCID) 20 mg tablet Take 1 tablet (20 mg total) by mouth in the morning. 30 tablet 1 07/12/2023 Active FeroSul 325 mg oral tablet (10 sources) Start: 02-16-2022 take 1 tablet by [...] 06/15/2020 Active fluocinonide 0.5 mg/ml topical solution (4 sources) Corticosteroid Start: 08-23-2023 fluocinonide topical 0.05% solution Refill(s) 0 Start Date: 08/23/23 Status: Ordered Start: 03-09-2023 fluocinonide ( LIDEX) 0.05 % external solution Apply 1 Application topically in the morning. 0 03/09/2023 Active ketoconazole 20 mg/ml medicated shampoo (20 sources) Azole Antifungal Start: 08-23-2023 ketoconazole Top 2% Shampoo Refill(s) 0 Start Date: 08/23/23 Status: Ordered Start: 03-09-2023 ketoconazole ( NIZORAL) 2 % shampoo Apply 1 Application topically [...] Ordered magnesium oxide 400 mg oral tablet (18 sources) Start: 08-23-2023 magnesium oxid e 400 mg Tab Refills(s) 0 Start Date: 08/23/23 Status: Ordered Start: 06-04-2023 take 1 tablet by chavez th in the morning, then take 1 tablet [...] 500 mg oral tablet (20 sources) Start: 08-23-2023 mycophenolate mofetil 500 mg oral tablet Refills(s) 0 Start Date: 08/23/23 Status: Ordered Start: 05-03-2023 End: 07-31-2023 take 3 tablets intravenously twice daily mycophenolate (CELLCEPT) 500 mg tablet Indications: Stage IV lupus nephritis (WHO) ([facility] , Systemic lupus erythematosus, unspecified SLE type, unspecified organ involvement status ([facility] , Encounter for senior care use of mycophenolate mofetil 3 tab twice daily 180 tablet 3 07/31/2023 Active Start: 04-02-2023 take 3 tablets intra venously twice daily mycophenolate (CELLCEPT) 500 mg tablet Indications: Stage IV lupus nephritis (WHO) ([facility]) , Systemic lupus erythematosus, unspecified SLE type, unspecified organ involvement status ([facility] , 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 3 tab twice daily 180 tablet 5 04/02/2023 Active nitrofurantoin, macrocrystals 50 mg oral capsule (2 sources) Nitrofuran Antibacterial Start: 09-05-2022 nitrofurantoin macrocrystals 50 mg Cap See Instructions, 1 cap(s) Oral PRN after intercourse to prevent UTI, # 15 cap(s), Refills(s) 6, [facility]: [facility] #[id number], 172, cm, 09/05/22 9:24:00 EDT, Height/Length Dosing, 132, kg, 09/05/22 9:24:00 EDT, Weight Dosing Start Date: 09/05/22 Status: Ordered ondansetron 4 mg disintegrating oral tablet (16 sources) Serotonin-3 Receptor Antagonist Start: 08-23-2023 ondansetron 4 mg Dis Tab Refills(s) 0 Start Date: 08/23/23 Status: Ordered Start: 06-03-2023 take 1 tablet by chavez th every [...] 10 doses. 10 tablet 0 01/11/2023 Active Potassium Chloride (20 sources) Start: 08-23-2023 Potassium Chlo ride (Xei-Sbqw-Zhr M20) 20 mEq oral tablet, extended release Refills(s) 0 Start Date: 08/23/23 Status: Ordered Start: 12-21-2022 take 1 tablet by chavez th in the morning potassium chloride (KLOR-CON M 20) 20 MEQ CR tablet Take 1 tablet (20 mEq total) by mouth in the morning and 1 tablet (20 mEq total) before bedtime. 180 tablet 3 12/21/2022 Active predniSONE 20 mg oral tablet (20 sources) Start: 08-23-2023 predniSONE 20 mg Tab Refills(s) 0 Start Date: 08/23/23 Status: Ordered Start: 05-16-2023 End: 07-31-2023 take 1 tablet by mouth in the morning, then take 1 tablet by mouth once daily predniSONE (DELTASONE) 20 mg tablet Indications: Stage IV lupus nephritis (WHO) ([facility]) , Systemic lupus erythematosus, unspecified SLE type, unspecified organ involvement status ([facility] Take 1 tablet (20 mg total) by mouth in the morning. One tab daily. 30 tablet 1 07/31/2023 Active Start: 04-02-2023 take 1.5 tablets int ravenously once daily, then take 1 tablet intravenously once daily predniSONE (DELTASONE) 20 mg tablet Indications: Stage IV lupus nephritis (WHO) ([facility]) , Systemic lupus erythematosus, unspecified SLE type, unspecified organ involvement status ([facility]) , jail systemic steroid user 1.5 tab daily for 2 weeks,then 1 tab daily 45 tablet 1 04/02/2023 Active rivaroxaban 20 mg oral tablet (20 sources) Factor Xa Inhibitor Start: 02-16-2022 End: 06-28-2023 take 20 mg by mouth once daily in the evening Xarelto 20 mg, Oral, qPM, Refills(s) 0, Blood Thinner Start Date: 02/16/22 Status: Ordered Start: 02-16-2022 Xarelto Refill s(s) 0, Blood Thinner Start Date: 02/16/22 Status: Ordered Start: 02-16-2022 Xarelto Refill s(s) 0 Start Date: 02/16/22 Status: Ordered rizatriptan 10 mg oral tablet (1 source) Serotonin-1b and Serotonin-1d Receptor Agonist Start: 08-23-2023 rizatriptan 10 mg Tab Refills(s) 0 Start Date: 08/23/23 Status: Ordered ubrogepant 100 mg oral tablet (9 sources) Start: 07-05-2023 ubrogepant (UBRELVY) 100 mg tablet Indications: Migraine without aura [...] mg capsule (3 sources) Start: 07-31-2023 voclosporin 7.9 mg capsule Indications: Stage IV lupus nephritis (WHO) ([facility]) Take 23.7 mg by mouth in the morning and 23.7 mg before bedtime. 60 capsule 3 07/31/2023 Active Start: 07-31-2023 End: 07-31-2023 voclosporin 7.9 mg capsule I ndications: Stage IV lupus nephritis (WHO) ([facility]) Take 23.7 mg by mouth in the morning and 23.7 mg before bedtime. 60 capsule 3 07/31/2023 07/31/2023 Discontinued (Reorder) voclosporin 7.9 MG Oral Caps ule [Lupkynis] (1 source) Start: 08-23-2023 Lupkynis 7.9 m g oral capsule Refills(s) 0 Start Date: 4/25/24 Status: Ordered Completed/Discontinued Medications Medication Drug Class(es) Dates Sig [...] day(s), # 90 cap(s), Refills(s) 1, [facility]acy: [facility] #[id number], 175, cm, 08/10/22 12:49:00 EDT, Height/Length Dosing, 133.3, kg, 08/10/22 12:49:00 EDT, Weight Dosing Start Date: 08/10/22 Stop Date: 02/06/23 Status: Ordered Start: 03-10-2022 take [address] [facility] once daily omeprazole 40 mg Cap-DR 40 mg = 1 cap(s), Oral, Daily, # 30 cap(s), Refills(s) 2, Pharmacy: [facility] #[id number], 172, cm, 03/10/22 12:42:00 EST, Height/Length Dosing, [...] Date Documented Da te Episodic/Chronic Anxiety disorders (11 sources) Anxiety disorder; Translations: [Anxiety disorder, unspecified] Onset: 2 Chronic Attention-deficit, conduct, and disruptive behavior disorders (10 sources) Adult attention deficit hyperactivity disorder 02-15-2022 Chronic Attention-deficit, conduct, and disruptive behavior disorders (10 sources) Attention deficit hyperactivity disorder, 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 Biliary tract disease (20 sources) Cholelithiasis without obstruction; Translations: [Calculus of gallbladder without cholecystitis without obstruction] Onset: 2 Episodic Chronic kidney disease (1 source) Chronic kidney disease stage 3; Translations: [Stage 3 chronic kidney disease, unspecified whether stage 3a or 3b CKD ([facility])] 06-13-2023 Chronic Chronic kidney disease (2 sources) [...] 1 06-23-2020 Chronic Deficiency and other anemia (7 sources) Anemia 07-05-2022 Episodic Diabetes mellitus without complication (10 sources) Type 2 diabetes mellitus 02-16-2022 Chronic Esophageal disorders (7 sources) Gastroesophageal reflux disease; Translations: [Gastroesophageal reflux disease without esophagitis] Onset: 3 08-10-2022 Chronic Essential hypertension (20 sources) Hypertensive disorder; Translations: [Essential (primary) hypertension] Onset: 9 02-15-2022 Chronic Gastritis and duodenitis (6 sources) Gastritis; Translations: [Gastritis, unspecified, without bleeding] Onset: 3 08-10-2022 Episodic Genitourinary symptoms and ill-defined conditions (5 sources) Other microscopic hematuria; Translations: [Dysuria] Onset: 4 Episodic Headache; including migraine (16 sources) Migraine without aura, not refractory ; Translations: [Migraine without aura, not intractable, without status migrainosus] Onset: 4 07-05-2023 Chronic Headache; including migraine (3 sources) Headache; including migraine; Translations: [Headache, unspecified] Onset: 4 Immunizations and screening for infectious disease (5 sources) Encounter for screening for human papillomavirus (HPV); Translations: [Contact with and (suspected) exposure to human immunodeficiency virus [HIV]] Onset: 2 Episodic Menstrual disorders (20 sources) Menometrorrhagia; Translations: [Excessive and frequent menstruation with irregular cycle] Onset: 3 02-19-2023 Chronic Mood disorders (10 sources) Depressive disorder 02-16-2022 Chronic Nephritis; nephrosis; renal sclerosis (20 sources) Nephrotic syndrome; Translations: [Nephrotic syndrome with unspecified morphologic changes] Onset: 3 12-17-2022 Chronic Nutritional deficiencies (20 sources) Vitamin D deficiency; Translations: [Vitamin D deficiency, unspecified] Onset: 3 11-28-2022 Chronic Other and ill-defined heart disease (2 sources) Cardiomegaly; Translations: [Cardiomegaly] Onset: 4 Chronic Other connective tissue disease (1 source) Pain in toe Onset: 4 Episodic Other ear and sense organ disorders (1 source) Tinnitus, bilateral; Translations: [Tinnitus, bilateral] Onset: 4 Episodic Other ear and sense organ disorders (2 sources) Tinnitus, left ear; Translations: [Tinnitus, left ear] Onset: 4 Episodic Other ear and sense organ disorders (1 source) Tinnitus Onset: 4 Episodic Other ear and sense organ disorders (1 source) Unspecified acute noninfective otitis externa, left ear; Translations: [Unspecified acute noninfective otitis externa, left ear] Onset: 4 Episodic Other gastrointestinal disorders (6 sources) Abdominal wind pain; Translations: [Gas pain] Onset: 3 08-10-2022 Episodic Other gastrointestinal disorders (1 source) Digestive system finding; Translations: [Other specified symptoms and signs involving the digestive system and abdomen] Onset: 4 Episodic Other gastrointestinal disorders (1 source) Constipation alternates with diarrhea 08-22-2023 Episodic Other inflammatory condition of skin (1 source) Lupus erythematosus 08-22-2023 Chronic Other lower respiratory disease (2 sources) Dyspnea on exertion; Translations: [Other forms of dyspnea] Onset: 4 08-02-2023 Episodic Other lower respiratory disease (1 source) Other forms of dyspnea; Translations: [Other forms of dyspnea] Onset: 4 Episodic Other lower respiratory disease (1 source) Cough Onset: 4 Episodic Other lower respiratory disease (1 source) Wheezing Onset: 4 Episodic Other nervous system disorders (2 sources) Other chronic pain; Translations: [OTHER CHRONIC PAIN] Onset: Chronic Other nutritional; endocrine; and metabolic disorders (10 sources) Morbid obesity 02-16-2022 Chronic Other nutritional; endocrine; and metabolic disorders (7 sources) Body mass index 40+ - severely obese 06-26-2022 Chronic Other nutritional; endocrine; and metabolic disorders (1 source) Body mass index 30+ - obesity; Translations: [Body mass index (BMI) 39.0-39.9, adult] 07-31-2023 Chronic Other nutritional; endocrine; and metabolic disorders (2 sources) Body mass index (BMI) 39.0-39.9, adult; Translations: [Body mass index (BMI) 39.0-39.9, adult] Onset: 4 Chronic Other skin disorders (1 source) Ingrowing nail; Translations: [Ingrowing nail] Onset: 4 Episodic Other upper respiratory disease (10 sources) Allergic rhinitis 02-16-2022 Chronic Poisoning by nonmedicinal substances (1 source) Toxic effect of unspecified substance, accidental (unintentional), initial encounter; Translations: [Toxic effect of unspecified substance, accidental (unintentional), initial encounter] Onset: 4 Episodic Screening and history of mental health and substance abuse codes (2 sources) H/O: Disorder; Translations: [Personal history of nicotine dependence] Onset: Episodic Sexually transmitted infections (not HIV or hepatitis) (20 sources) Syphilis titer test positive ; 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, unspecified as early or late] Onset: 3 11-28-2022 Chronic Spondylosis; intervertebral disc disorders; other back problems (10 sources) Backache 02-16-2022 Episodic Systemic lupus erythematosus and connective tissue disorders (20 sources) Systemic lupus erythematosus; Translations: [Systemic lupus erythematosus, unspecified] Onset: 3 11-28-2022 Chronic Unclassified (7 sources) Drug therapy finding 06-26-2022 Unclassified (2 sources) New Patient Onset: 4 Unclassified (1 source) Long-term current use of cannabis 08-22-2023 Unclassified (1 source) MNT - Individual Onset: 4 Unclassified (2 sources) New Patient Visit; Translations: [New Patient Visit] Onset: 4 Unclassified (1 source) CP, shoulder blade pain Onset: 4 Unclassified (1 source) Ingestion - Accidental Onset: 4 Unclassified (1 source) Earache Onset: 4 Unclassified (1 source) RUNNY NOSE, SORE THROAT Onset: 4 Unclassified (1 source) Overdose - Accidental Onset: 4 Urinary tract infections (4 sources) Urinary tract infectious disease; Translations: [Urinary tract infection, site not specified] Onset: 3 Episodic Past or Other Problems Problem Classification Problem Date Documented Da te Episodic/Chronic Abdominal pain (20 sources) Epigastric pain; Translations: [Epigastric pain] Onset: 06-11-2020 Episodic Acute and unspecified renal failure (20 sources) Acute injury of kidney; Translations: [Acute kidney failure, unspecified] Onset: 11-28-2022 11-28-2022 Episodic Allergic reactions (3 sources) Environmental allergy; Translations: [Other allergy status, other than to drugs and biological substances] Onset: 08-02-2023 08-02-2023 Episodic Blindness and vision defects (3 sources) Eye / vision finding; Translations: [Unspecified visual disturbance] Onset: 07-05-2023 07-05-2023 Episodic Cancer of cervix (20 sources) Low grade squamous intraepithelial lesion on cervical Papanicolaou smear; Translations: [Low grade squamous intraepithelial lesion on cytologic smear of cervix (LGSIL)] Onset: 02-04-2020 07-17-2022 Episodic Cardiac dysrhythmias (1 source) Tachycardia, unspecified; Translations: [Tachycardia, unspecified] Onset: 06-03-2023 Episodic Contraceptive and procreative management (20 sources) Sterilization requested; Translations: [Encounter for sterilization] Onset: 02-26-2019 Resolved: 06-30-2020 02-03-2020 Episodic Diabetes or abnormal glucose tolerance complicating ; childbirth; or the puerperium (20 sources) Abnormal glucose level; Translations: [Abnormal glucose complicating ] Onset: 02-09-2020 Resolved: 06-30-2020 06-30-2020 Episodic Early or threatened labor (20 sources) Finding of uterine contractions; Translations: [False labor, unspecified] Onset: 05-25-2020 Resolved: 06-30-2020 06-30-2020 Episodic Fluid and electrolyte disorders (1 source) Dehydration; Translations: [Dehydration] Onset: 06-03-2023 Episodic Headache; including migraine (2 sources) Daily headache; Translations: [Daily headache] Onset: 05-24-2023 07-05-2023 Episodic Hemorrhage during ; abruptio placenta; placenta previa (20 sources) Low lying placenta; Translations: [Low lying placenta NOS or without hemorrhage, unspecified trimester] Onset: 01-24-2019 Resolved: 02-03-2020 02-03-2020 Episodic Malaise and fatigue (2 sources) Other fatigue; Translations: [Fatigue] Onset: 08-22-2023 Episodic Mood disorders (20 sources) Mood disorders Onset: 12-18-2022 Resolved: 07-05-2023 12-18-2022 Nausea and vomiting (13 sources) Nausea; Translations: [Nausea] Onset: 02-16-2022 Episodic Nonspecific chest pain (20 sources) Chest pain; Translations: [Other chest pain] Onset: 05-10-2023 06-19-2023 Episodic Other aftercare (3 sources) Other watermelon inspector (current) drug therapy; Translations: [OTH TEXTILE BAG SEWER CURRENT DRUG THERAPY] Onset: 12-14-2021 Episodic Other aftercare (20 sources) Drug therapy status; Translations: [Other senior care (current) drug therapy] Onset: 12-20-2022 12-20-2022 Episodic Other aftercare (17 sources) Drug therapy finding; Translations: [jail (current) use of anticoagulants] Onset: 12-20-2022 02-19-2023 Episodic Other aftercare (14 sources) jail systemic steroid user; Translations: [jail (current) use of systemic steroids] Onset: 12-20-2022 07-04-2023 Episodic Other aftercare (3 sources) Long-term current use of drug therapy; Translations: [Other watermelon inspector (current) drug therapy] Onset: 12-20-2022 07-31-2023 Episodic Other aftercare (1 source) watermelon inspector (current) use of systemic steroids; Translations: [watermelon inspector (current) use of systemic steroids] Onset: 05-03-2023 Episodic Other complications of ; puerperium affecting management of mother (20 sources) Deliveries by ; Translations: [Encounter for delivery without indication] Onset: 06-02-2020 06-02-2020 Episodic Other complications of ; puerperium affecting management of mother (20 sources) Suspected disorder; Translations: [Maternal care for other (suspected) abnormality and damage, not applicable or unspecified] Onset: 05-26-2020 Resolved: 06-30-2020 06-30-2020 Episodic Other complications of (20 sources) Maternal obesity complicating , childbirth and the puerperium, antepartum; Translations: [Obesity complicating , unspecified trimester] Onset: 01-24-2019 Resolved: 06-30-2020 06-30-2020 Chronic Other complications of (20 sources) Heartburn; Translations: [Other specified related conditions, unspecified trimester] Onset: 02-03-2020 Resolved: 06-30-2020 06-30-2020 Episodic Other connective tissue disease (20 sources) Fibromyalgia; Translations: [Fibromyalgia] Onset: 01-23-2023 01-23-2023 Episodic Other connective tissue disease (3 sources) Fibromyalgia; Translations: [Fibromyalgia] Onset: 01-23-2023 Episodic Other connective tissue disease (1 source) Myalgia, unspecified site; Translations: [Myalgia, unspecified site] Onset: 06-19-2023 Episodic Other connective tissue disease (1 source) Pain in upper limb Onset: 06-05-2023 Episodic Other gastrointestinal disorders (1 source) Diarrhea, unspecified; Translations: [Diarrhea, unspecified] Onset: 06-03-2023 Episodic Other lower respiratory disease (2 sources) Shortness of breath Onset: 06-19-2023 Episodic Other lower respiratory disease (1 source) Shortness of breath; Translations: [Shortness of breath] Onset: 08-14-2023 Episodic Other and delivery including normal (20 sources) Dichorionic diamniotic twin ; Translations: [Twin , dichorionic/diamnioti c, second trimester] Onset: 12-23-2018 Resolved: 06-30-2020 07-17-2022 Episodic Other screening for suspected conditions (not mental disorders or infectious disease) (5 sources) Encounter for screening for malignant neoplasm of cervix; Translations: [Encounter for screening, unspecified] Onset: 03-14-2022 Episodic Other skin disorders (1 source) Other hypertrophic disorders of the skin; Translations: [Other hypertrophic disorders of the skin] Onset: 09-06-2023 Episodic Other skin disorders (1 source) Skin problem Onset: 09-06-2023 Episodic Other upper respiratory disease (1 source) Nasal congestion Onset: 07-15-2023 Episodic Other upper respiratory infections (1 source) Acute upper respiratory infection, unspecified; Translations: [Acute upper respiratory infection, unspecified] Onset: 07-15-2023 Episodic Phlebitis; thrombophlebitis and thromboembolism (20 sources) H/O: Deep vein thrombosis; Translations: [Personal history of other venous thrombosis and embolism] Onset: 02-03-2020 11-28-2022 Episodic Polyhydramnios and other problems of amniotic cavity (20 sources) Polyhydramnios; Translations: [Polyhydramnios, second trimester, not applicable or unspecified] Onset: 01-24-2019 Resolved: 02-03-2020 02-03-2020 Episodic Pulmonary heart disease (20 sources) Pulmonary embolism; Translations: [Other pulmonary embolism without acute cor pulmonale] Onset: 11-08-2019 07-05-2022 Episodic Residual codes; unclassified (20 sources) H/O: severe pre-eclampsia; Translations: [Personal history of other complications of , childbirth and the puerperium] Onset: 04-04-2019 02-03-2020 Episodic Residual codes; unclassified (20 sources) ultrasound scan abnormal; Translations: [Pyelectasis of fetus on ultrasound] Onset: 01-24-2019 Resolved: 02-03-2020 02-03-2020 Episodic Substance-related disorders (1 source) Other psychoactive substance use, unspecified, uncomplicated; Translations: [Other psychoactive substance use, unspecified, uncomplicated] Onset: 05-22-2023 Episodic Superficial injury; contusion (20 sources) Intra-abdominal hematoma; Translations: [Contusion of abdominal wall, initial encounter] Onset: 06-09-2020 06-09-2020 Episodic Unclassified (1 source) Exposure to 2019 novel coronavirus; Translations: [Contact with and (suspected) exposure to COVID19] Results Test Name Value Interpretation Reference Range Facility XR HIPS BILAT W OR WO PELVIS 3-4 VWSon 01-18-2024 XR HIPS BILAT W OR WO PELVIS 3-4 VWS XR HIPS BILAT W OR WO PELVIS 3-4 VWS Indication: Hip pain. History of lupus. TECHNIQUE: Frontal view the pelvis is obtained. Frontal and frog-leg lateral views of each hip are obtained. No prior comparison. FINDINGS: IUD overlies expected location of uterus. Hips appear well-maintained. An acute fracture subluxation or worrisome bony lesion is not seen. IMPRESSION: 1. Unremarkable digital plain film appearance of the hips. This patient remains symptomatic MRI may be helpful for further evaluation. Finalized by Alexa Montemayor MD on 01/18/2024 3:00 PM Normal [facility] CHLAMYDIA TRACHOMATIS AND NE ISSERIA GONORRHEA, TMAon 01-09-2024 CHLAMYDIA TRACHOMATIS DNA PROBE (PRESENCE) IN UNSP SPEC Negative Normal Negative [facility] Comment on above: Result Comment: No C hlamydia trachomatis rRNA Detected. The Aptima Combo 2 Assay is a FDA approved target amplification nucleic acid probe test that utilizes target capture for the in vitro qualitative detection and differentiation of ribosomal RNA (rRNA) from Chlamydia trachomatis (CT) and/or Neisseria gonorrhoeae (GC) to aid the diagnosis of chlamydial and/or gonococcal urogenital disease using the [employer] System. The Aptima Combo 2 Assay involves target capture, target amplification by Demolition Hammer Operator-Mediated Amplification (TMA), and the detection of the amplification products (amplicon) by the Hybridization Protection Assay (HPA). The internal process controls of the [employer] System monitor the target capture, amplification, and detection steps of the assay, this is not intended to control for sampling adequacy. Performed By: #### L [id number] ####[facility] (BEAKER)[address] [place] [address] NEISSERIA GONORRHOEAE DNA PROBE (PRESENCE) IN UNSP SPEC Negative Normal Negative [facility] Comment on above: Result Comment: No N eisseria gonorrhoeae rRNA Detected. The Aptima Combo 2 Assay is a FDA approved target amplification nucleic acid probe test that utilizes target capture for the in vitro qualitative detection and differentiation of ribosomal RNA (rRNA) from Chlamydia trachomatis (CT) and/or Neisseria gonorrhoeae (GC) to aid the diagnosis of chlamydial and/or gonococcal urogenital disease using the [employer] System. The Aptima Combo 2 Assay involves target capture, target amplification by Demolition Hammer Operator-Mediated Amplification (TMA), and the detection of the amplification products (amplicon) by the Hybridization Protection Assay (HPA). The internal process controls of the [employer] System monitor the target capture, amplification, and detection steps of the assay, this is not intended to control for sampling adequacy. Performed By: #### L [id number] ####[facility] ([facility])[address] [place] [address] HIV COMBO 4Gon 01-09-2024 HIV COMBO 4G Negative Normal Negative [facility] Comment on above: Performed By: #### L [id number] ####[facility] ([facility]ER)[address] [place] [address] Labon 01-09-2024 Lab [id number] Blanca Rudolph 1990 Date Provider Department Center 01/09/2024 2243-[facility] Family History Problem Relation Age of Onset Hypertension Mother Hypertension Mother's Sister Crohn's disease Mother's Sister Hypertension Maternal Grandmother Breast cancer Maternal Grandmother Kidney disease Other Migraines Other Family Status - Relation Status Age at Mother Mother's Sister Maternal Grandmother Other Normal [facility] Office Visiton 01-09-2024 Follow-up visit [id number] Blanca Rudolph 1990 Provider Department Center 01/09/2024 [facility] Family History Problem Relation Age of Onset Hypertension Mother Hypertension Mother's Sister Crohn's disease Mother's Sister Hypertension Maternal Grandmother Breast cancer Maternal Grandmother Kidney disease Other Migraines Other Family Status - Relation Status Age at Mother Mother's Sister Maternal Grandmother Other Level of Service:79285 GA OFFICE/OUTPATIENT ESTABLISHED MOD MDM 30 MIN Reason for Visit and Comments: Exposure to HIV [Other] Med Management [[id number]] Normal [facility] RPRon 01-09-2024 REAGIN AB PRESENCE IN SERUM BY RPR Reactive Abnormal Nonreactive [facility] Comment on above: Performed By: #### L [id number] ####[facility] ([facility])[address] [place] [address] RPR QUANTITATIVEon RPR QUANT 1:8 High <1:1 [facility] Comment on above: Order Comment: Previ ously reactive FTA performed on 04/06/2023. Result Comment: The syphilis screen is a treponemal assay; patients with previously treated syphilis could be reactive on this assay, but nonreactive on the RPR Quant assay. Performed By: #### L [id number] ####[facility] ([facility])[address] [place] [address] URINALYSISon 01-09-2024 BILIRUBIN, TOTAL PRESENCE IN URINE Negative Normal Negative [facility] Comment on above: Performed By: #### L [id number] ####[facility] ([facility])[address] [place] [address] Clarity (U) Slightly Cloudy Abnormal Clear [facility] Comment on above: Performed By: #### L [id number] ####[facility] ([facility])[address] [place] [address] Color (U) Yellow Normal Yellow [facility] Comment on above: Performed By: #### L [id number] ####[facility] ([facility])[address] [place] [address] Glucose (U) [Mass/Vol] Negative Normal Negative [facility] Comment on above: Performed By: #### L [id number] ####[facility] ([facility])[address] [place] [address] HEMOGLOBIN PRESENCE IN URINE Large Abnormal Negative [facility] Comment on above: Performed By: #### L [id number] ####[facility] ([facility])[address] [place] [address] Ketones Ql (U) Negative Normal Negative [facility] Comment on above: Performed By: #### L [id number] ####[facility] ([facility])[address] [place] [address] LEUKOCYTE ESTERASE PRESENCE IN URINE BY TEST STRIP Trace Abnormal Negative [facility] Comment on above: Performed By: #### L [id number] ####[facility] ([facility])[address] [place] [address] NITRITE PRESENCE IN URINE Negative Normal Negative [facility] Comment on above: Performed By: #### L [id number] ####[facility] ([facility])[address] [place] [address] pH (U) 5.0 [pH] Normal 5.0-8.0 [facility] Comment on above: Performed By: #### L [id number] ####[facility] ([facility])[address] [place] [address] Protein (U) [Mass/Vol] Negative Normal Negative [facility] Comment on above: Performed By: #### L [id number] ####[facility] ([facility])[address] [place] [address] Specific gravity (U) [Rel density] 1.009 Low 1.015-1.020 [facility] Comment on above: Performed By: #### L [id number] ####[facility] ([facility])[address] [place] [address] URINALYSIS MICROSCOPICon CASTS IN URINE Normal [facility] Comment on above: Performed By: #### L [id number] #### [facility] ([facility]) [address] [place] [address] CRYSTALS IN URINE Normal [facility] Comment on above: Performed By: #### L [id number] #### [facility] ([facility]) [address] [place] [address] MUCUS (#/HPF) IN URINE SEDIMENT Occasional Normal None Seen, Occasional, Few [facility] Comment on above: Performed By: #### L [id number] #### [facility] ([facility]) [address] [place] [address] RBC (#/HPF) IN URINE SEDIMENT 51-100 Abnormal None Seen [facility] Comment on above: Performed By: #### L [id number] #### [facility] ([facility]) [address] [place] [address] SQUAMOUS EPITHELIAL CELLS (#/HPF) IN URINE SEDIMENT Many Abnormal None Seen, Occasional [facility] Comment on above: Performed By: #### L [id number] #### [facility] ([facility]AKER) [address] [place] [address] WBC (LEUKOCYTE) (#/HPF) IN URINE SEDIMENT 3-5 Abnormal None Seen [facility] Comment on above: Performed By: #### L [id number] #### [facility] ([facility]ER) [address] [place] [address] CBC AND AUTO DIFFon 01-01-20 24 ABSOLUTE BASOPHIL 0.0 X10E9/L Normal 0.0-0.2 [facility] Comment on above: Performed By: #### C KINDRA CMP, 05701-1 #### [facility] ([id number]) [address] [place] [address] ABSOLUTE NEUTROPHIL 5.6 X10E9/L Normal 1.5-6.6 [facility] Comment on above: Performed By: #### C KINDRA CMP, 98690-0 #### [facility] ([id number]) [address] [place] [address] Basophils/100 WBC (Bld) 0.3 % Normal [facility] Comment on above: Performed By: #### Nataliia ARGUELLES, CMP, 50512-2 #### [facility] ([id number]) [address] [place] [address] Eosinophils (Bld) [#/Vol] 0.0 10*3/uL Normal 0.0-0.4 [facility] Comment on above: Performed By: #### Nataliia ARGUELLES, CMP, 72414-1 #### [facility] ([id number]) [address] [place] [address] Eosinophils/100 WBC (Bld) 0.5 % Normal [facility] Comment on above: Performed By: #### Nataliia BCA, CMP, 67114-1 #### [facility] ([id number]) [address] [place] [address] Erythrocyte distribution width (RBC) [Ratio] 14.9 % Normal 11.5-15.0 [facility] Comment on above: Performed By: #### Nataliia ARGUELLES CMP, 42214-9 #### [facility] ([id number]) [address] [place] [address] Hematocrit (Bld) [Volume fraction] 37.7 % Normal 35-47 [facility] Comment on above: Performed By: #### Nataliia ARGUELLES, CORINA, 85813-2 #### [facility] ([id number]) [address] [place] [address] Hemoglobin (Bld) [Mass/Vol] 12.4 g/dL Normal 11.7-15.5 [facility] Comment on above: Performed By: #### Nataliia ARGUELLES CMP, 18714-3 #### [facility] ([id number]) [address] [place] [address] Lymphocytes (Bld) [#/Vol] 0.8 10*3/uL Low 1.0-3.5 [facility] Comment on above: Performed By: #### Nataliia ARGUELLES, CMP, 65690-5 #### [facility] ([id number]) [address] [place] [address] Lymphocytes/100 WBC (Bld) 10.8 % Normal [facility] Comment on above: Performed By: #### Nataliia ARGUELLES, CMP, 41628-1 #### [facility] ([id number]) [address] [place] [address] MCH (RBC) [Entitic mass] 30.0 pg Normal 27-34 [facility] Comment on above: Performed By: #### Nataliia ARGUELLES, CMP, 26671-2 #### [facility] ([id number]) [address] [place] [address] MCHC (RBC) [Mass/Vol] 33.0 g/dL Normal 32-36 [facility] Comment on above: Performed By: #### Nataliia ARGUELLES CMP, 49079-5 #### [facility] ([id number]) [address] [place] [address]267 MCV (RBC) [Entitic vol] 91 fL Normal 80-100 [facility] Comment on above: Performed By: #### Nataliia ARGUELLES CMP, 78849-2 #### [facility] ([id number]) [address] [place] [address] Monocytes (Bld) [#/Vol] 0.5 10*3/uL Normal 0-0.9 [facility] Comment on above: Performed By: #### Nataliia ARGUELLES CMP, 73844-1 #### [facility] ([id number]) [address] [place] [address] 10632 Monocytes/100 WBC (Bld) 7.8 % Normal [facility] Comment on above: Performed By: #### Nataliia ARGUELLES CMP, 38429-3 #### [facility] ([id number]) [address] [place] [address]3441 Neutrophils/100 WBC (Bld) 80.6 % Normal [facility] Comment on above: Performed By: #### Nataliia ARGUELLES CMP, 83108-9 #### [facility] ([id number]) [address] [place] [address]14 Platelet mean volume (Bld) [Entitic vol] 7.7 fL Normal 7-12 [facility] Comment on above: Performed By: #### Nataliia ARGUELLES CMP, 46208-0 #### [facility] ([id number]) [address] [place] [address]6428 Platelets (Bld) [#/Vol] 277 10*3/uL Normal 150-450 [facility] Comment on above: Performed By: #### C KINDRA CMP, 38710-1 #### [facility] ([id number]) [address] [place] [address] RBC COUNT 4.15 X10E12/L Normal 3.80-5.20 [facility] Comment on above: Performed By: #### Nataliia ARGUELLES, CMP, 19467-0 #### [facility] ([id number]) [address] [place] [address] WBC (Bld) [#/Vol] 6.9 10*3/uL Normal 4.0-11.0 [facility] Comment on above: Performed By: #### Nataliia ARGUELLES CMP, 27554-7 #### [facility] ([id number]) [address] [place] [address] CHLAMYDIA/GC PCR, Uon 2023 CHLAMYDIA/GC PCR, U CHLAMYDIA PCR, U Negative (qualifier value) Chlamydia trachomatis not detected by nucleic acid amplification. This does not exclude the possibility of infection because results are dependent on adequate specimen collection. GONORRHOEAE PCR, U Negative (qualifier value) Neisseria gonorrhoeae not detected by nucleic acid amplification. This does not exclude the possibility of infection because results are dependent on adequate specimen collection. Normal [facility] Comment on above: Performed By: #### C GUPCR ####[facility] ([id number])[address] [place] [address], [address] [place] [address] COMPREHENSIVE METABOLIC PANE [facility] 01-01-2024 Albumin [Mass/Vol] 3.7 g/dL Normal 3.2-5.3 [facility] Comment on above: Performed By: #### C KINDRA CMP, 08125-8 #### [facility] ([id number]) [address] [place] [address]46[address] ALP [Catalytic activity/Vol] 62 U/L Normal 39-130 [facility] Comment on above: Performed By: #### Nataliia BCA, CMP, 12757-5 #### [facility] ([id number]) [address] [place] [address] 04064 ALT [Catalytic activity/Vol] 11 U/L Normal 0-31 [facility] Comment on above: Performed By: #### C BCA, CMP, 20032-3 #### [facility] ([id number]) [address] [place] [address] [place] [address] Anion gap [Moles/Vol] 10 mmol/L Normal 5-15 [facility] Comment on above: Performed By: #### C BCA, CMP, 86389-9 #### [facility] ([id number]) [address] [place] [address] AST [Catalytic activity/Vol] 15 U/L Normal 0-41 [facility] Comment on above: Performed By: #### C BCA, CMP, 36872-8 #### [facility] ([id number]) [address] [place] [address] [place] [address] Bilirubin [Mass/Vol] 0.4 mg/dL Normal 0.3-1.2 [facility] Comment on above: Performed By: #### C BCA, CMP, 24996-2 #### [facility] ([id number]) [address] [place] [address] 91921 Calcium [Mass/Vol] 8.8 mg/dL Normal 8.5-10.5 [facility] Comment on above: Performed By: #### C BCA, CMP, 05148-4 #### [facility] ([id number]) [address] [place] [address] 35265 Chloride [Moles/Vol] 103 mmol/L Normal 98-109 [facility] Comment on above: Performed By: #### C BCA, CMP, 81894-3 #### [facility] ([id number]) [address] [place] [address] 63814 CO2 [Moles/Vol] 30 mmol/L Normal 22-32 [facility] Comment on above: Performed By: #### C CORINA ARGUELLES, 68696-4 #### [facility] ([id number]) [address] [place] [address] 00203 Creatinine [Mass/Vol] 1.44 mg/dL High 0.40-1.00 [facility] Comment on above: Result Comment: METH OD TRACEABLE TO IDMS STANDARD Performed By: #### C CORINA ARGUELLES, 18827-5 #### [facility] ([id number]) [address] [place] [address] 84898 GFR/1.73 sq M.predicted among non-blacks MDRD (S/P/Bld) [Vol rate/Area] 50 mL/min/{1.73_m2} Low >59 [facility] Comment on above: Result Comment: Reported eGFR is based on the CKD-EPI 2020 equation that does not use a race coefficient. Performed By: #### C CORINA ARGUELLES, 16622-2 #### [facility] ([id number]) [address] [place] [address] 48665 Glucose [Mass/Vol] 99 mg/dL Normal 65-99 [facility] Comment on above: Performed By: #### C CORINA ARGUELLES, 89771-4 #### [facility] ([id number]) [address] [place] [address] 09333 Potassium [Moles/Vol] 3.8 mmol/L Normal 3.5-5.0 [facility] Comment on above: Performed By: #### C KINDRA, CMP, 98440-8 #### [facility] ([id number]) [address] [place] [address] 97295 Protein [Mass/Vol] 6.2 g/dL Normal 6.0-8.0 [facility] Comment on above: Performed By: #### C KINDRA CMP, 93284-9 #### [facility] ([id number]) [address] [place] [address] 15043 Sodium [Moles/Vol] 143 mmol/L Normal 134-146 [facility] Comment on above: Performed By: #### C KINDRA, CMP, 31926-0 #### [facility] ([id number]) [address] [place] [address] 98776 Urea nitrogen [Mass/Vol] 22 mg/dL Normal 5-23 [facility] Comment on above: Performed By: #### C KINDRA, CMP, 12495-1 #### [facility] ([id number]) [address] [place] [address] 19634 CRP [Mass/Vol]on 01-01-2024 C REACTIVE PROTEIN 0.3 mg/dL Normal 0.000-0.744 [facility] Comment on above: Performed By: #### Nataliia ARGUELLES, CMP, 40081-2 #### [facility] ([id number]) [address] [place] [address] 80823 Complement C3 [Mass/Vol]on 0 01-01-2024 COMPLEMENT C3 138 mg/dL Normal 86-184 [facility] Comment on above: Performed By: #### Nataliia BCA, CMP, 76687-9 #### [facility] ([id number]) [address] [place] [address] 95835 Complement C4 [Mass/Vol]on 0 01-01-2024 COMPLEMENT C4 26 mg/dL Normal 16-47 [facility] Comment on above: Performed By: #### C BCA, 43038-1, CMP, 1988-5, 03582-2, 2777- 1, UPCR, 2731-8, 23895-9, 4485-9, 4498-2, 74218-1 ####[facility] ([id number])[address] [place] [address], [address], [place] [address]#### 45802-9, 30570-8 ####[facility] ([id number])[address] [place] [address] 77542 ESR Photometric method (Bld) [Velocity]on 01-01-2024 ESR, ERYTHROCYTE SEDIMENTATION RATE 7 mm/h Normal 0-20 [facility] Comment on above: Performed By: #### C KINDRA, CMP, 46921-9 #### [facility] ([id number]) [address] [place] [address] 30595 MAGNESIUMon 01-01-2024 Magnesium [Mass/Vol] 1.6 mg/dL Low 1.8-2.6 [facility] Comment on above: Performed By: #### C KINDRA, CMP, 14543-7 #### [facility] ([id number]) [address] [place] [address] 94105 Orders Onlyon 01-01-2024 Orders Only [id number] Blanca Rudolph 1990 F Date Provider Department Center 01/01/2024 JEFFERY AVITIA [facility] Family History Problem Relation Age of Onset Hypertension Mother Hypertension Mother's Sister Crohn's disease Mother's Sister Hypertension Maternal Grandmother Breast cancer Maternal Grandmother Kidney disease Other Migraines Other Family Status - Relation Status Age at Mother Mother's Sister Maternal Grandmother Other Normal [facility] PHOSPHORUSon 01-01-2024 Phosphate [Mass/Vol] 3.1 mg/dL Normal 2.4-4.9 [facility] Comment on above: Performed By: #### C KINDRA, CMP, 75662-8 #### [facility] ([id number]) [address] [place] [address] 76686 PROTEIN CREAT RATIOon 2023 RANDOM URINE PROTEIN 90 mg/L Normal <120 [facility] Comment on above: Performed By: #### C KINDRA, CMP, 74564-8 #### [facility] ([id number]) [address] [place] [address] 64528 U/PRO/PLUG CUTTING MACHINE OPERATOR RATIO CALC 0.14 Normal <0.2 [facility] Comment on above: Result Comment: Neph rotic Syndrome is associated with ratios >3.5 Performed By: #### C CORINA ARGUELLES, 98986-3 #### [facility] ([id number]) [address] [place] [address] URINE CREATININE,RDM 66.04 mg/dL Normal [facility] Comment on above: Performed By: #### Nataliia ARGUELLES CMP, 23589-5 #### [facility] ([id number]) [address] [place] [address] 35208 Parathyrin.intact [Mass/Vol] on 01-01-2024 PTH INTACT 71 pg/mL Normal 12-88 [facility] Comment on above: Performed By: #### C CORINA ARGUELLES, 81982-7 #### [facility] ([id number]) [address] [place] [address] 63515 Reagin Ab RPR (S) [Titer]on 01-01-2024 RPR TITER, SERUM SEE COMMENTS 01/04/2024 09:56 AM Abnormal [facility] Comment on above: Result Comment: NOTE Test Result Flag Unit RefValue - RPR, Titer, S 1:4 A Negative Results consistent with untreated or recently treated syphilis. Clinical correlation required. For additional information on interpretation of the syphilis reverse algorithm and results, see: [email or web address].[email or web address] Test Performed by: [facility] [address] [place] [address] Offbearer: Bulmaro Bull Ph.D.; CLIA# [id number] Performed By: #### Nataliia ARGUELLES, 59272-6, CORINA, 1987-08, 38175-0, 2777-1, UPCR, 2731-8, 61079-7, 4485-9, 4498-2, 17167-7 ####[facility] ([id number])[address] [place] [address], [address] [address]#### 97359-9, 46732-7 ####[facility] ([id number])[address] [place] [address] 40923 Reagin Ab RPR Ql (S)on 12-31 RPR WITH REFLEX TO RTPPA Positive Abnormal Negative [facility] Comment on above: Result Comment: NOTE Specimen reflexed to determine RPR titer. For additional information on interpretation of the syphilis reverse algorithm and results, see: [email or web address].[email or web address] Test Performed by: [place] [address] Offbearer: Bulmaro Bull Ph.D.; CLIA# [id number] Performed By: #### C BCA, 35857-4, CMP, 1988-5, 26869-8, 2777-1, UPCR, 2731-8, 14603-3, 4485-9, 4498-2, 42036-2 ####[facility] ([id number])[address] [place] [address]#### 49582-1, 93520-9 ####[facility] ([id number])[address] [place] [address] 54763 T. pallidum IgG+IgM IA Ql (S )on 01-01-2024 Syphilis Total >8.0 High 0.0-0.8 [facility] Comment on above: Result Comment: REAC TIVE This specimen will be sent to a reference lab for additional testing which includes RPR with reflex to TP-PA if RPR is negative. The RPR will help distinguish between infections with T.pallidum (syphilis) versus a falsely reactive treponemal antibody result. Please see the syphilis testing algorithm link below for more information. [email or web address] Performed By: #### C BCA, 09318-5, CMP, 1987-5, 85772-5, 2777-1, UPCR, 2731-8, 21923-4, 4485-9, 4498-2, 50118-1 ####[facility] ([id number])[address] [place] [address], [address] [address]#### 05586-5, 57997-0 ####[facility] ([id number])[address] [place] [address] 91155 URINALYSISon 01-01-2024 Bilirubin Ql (U) Negative Normal NEG [facility] Comment on above: Performed By: #### C KINDRA, CMP, 25567-4 #### [facility] ([id number]) [address] [place] [address] 09314 BLOOD/HGB MODERATE Abnormal NEG [facility] Comment on above: Performed By: #### C KINDRA, CMP, 78004-3 #### [facility] ([id number]) [address] [place] [address] 22496 Color (U) YELLOW Normal YELLOW [facility] Comment on above: Performed By: #### C KINDRA, CMP, 32925-5 #### [facility] ([id number]) [address] [place] [address] 45015 Glucose Ql (U) Negative Normal NEG [facility] Comment on above: Performed By: #### C KINDRA, CMP, 72731-6 #### [facility] ([id number]) [address] [place] [address] 88416 Hyaline casts LM Ql (Urine sed) 3 /lpf High 0-2 [facility] Comment on above: Performed By: #### C BCA, CMP, 69110-9 #### [facility] ([id number]) [address] [place] [address] 25413 Ketones Ql (U) Negative Normal NEG [facility] Comment on above: Performed By: #### C BCA, CMP, 16931-3 #### [facility] ([id number]) [address] [place] [address] 84559 Leukocyte esterase Test strip Ql (U) Negative Normal NEG [facility] Comment on above: Performed By: #### C BCA, CMP, 38101-6 #### [facility] ([id number]) [address] [place] [address] 30531 MUCOUS PRESENT Abnormal NONE [facility] Comment on above: Performed By: #### C BCA, CMP, 18905-7 #### [facility] ([id number]) [address] [place] [address] 67857 Nitrite Ql (U) Negative Normal NEG [facility] Comment on above: Performed By: #### C BCA, CMP, 22228-6 #### [facility] ([id number]) [address] [place] [address] 14879 pH (U) 6.0 [pH] Normal 5.0-8.5 [facility] Comment on above: Performed By: #### C BCA, CMP, 20392-0 #### [facility] ([id number]) [address] [place] [address] 74786 Protein Ql (U) Negative Normal NEG [facility] Comment on above: Performed By: #### C BCA, CMP, 18623-7 #### [facility] ([id number]) [address] [place] [address] 53095 R.B.CELLS 5 /hpf Normal 0-5 [facility] Comment on above: Performed By: #### C BCA, CMP, 15383-9 #### [facility] ([id number]) [address] [place] [address] [place] [address] Specific gravity (U) [Rel density] 1.011 Normal 1.003-1.035 [facility] Comment on above: Performed By: #### Nataliia ARGUELLES CMP, 30205-0 #### [facility] ([id number]) [address] [place] [address] 62317 SQUAMOUS EPITHELIUM 1 /hpf Normal 0-5 [facility] Comment on above: Performed By: #### Nataliia ARGUELLES CMP, 75304-7 #### [facility] ([id number]) [address] [place] [address] 82843 TURBIDITY CLEAR Normal CLEAR [facility] Comment on above: Performed By: #### Nataliia ARGUELLES CMP, 42275-1 #### [facility] ([id number]) [address] [place] [address] [place] [address] Urobilinogen (U) [Mass/Vol] mg/dL Normal <1.1 [facility] Comment on above: Performed By: #### Nataliia RAGUELLES CMP, 89588-0 #### [facility] ([id number]) [address] [place] [address] 33576 W.B.CELLS 1 /hpf Normal 0-5 [facility] Comment on above: Performed By: #### Ntaaliia ARGUELLES CMP, 07136-5 #### [facility] ([id number]) [address] [place] [address] [place] [address] Vitamin D+Metabolites [Mass/ Vol]on 01-01-2024 VITAMIN D 25 HYD TOT 44.5 ng/mL Normal 30-100 [facility] Comment on above: Result Comment: Vitamin D status 25 [place] Vitamin D Deficiency <20 ng/mL Insufficiency 20-29 ng/mL Sufficiency 30-100 ng/mL Toxicity >100 ng/mL NOTE: A pediatric reference range has not been established by the tag machine operator of this kit. The [place] [employer] recommends a Vitamin D level of = or >20ng/mL in infants and children. Performed By: #### C CORINA ARGUELLES, 04968-4 #### [facility] ([id number]) [address] [place] [address] 51004 CHLAMYDIA/GC PCR, Uon 2023 CHLAMYDIA/GC PCR, U CHLAMYDIA PCR, U Negative (qualifier value) Chlamydia trachomatis not detected by nucleic acid amplification. This does not exclude the possibility of infection because results are dependent on adequate specimen collection. GONORRHOEAE PCR, U Negative (qualifier value) Neisseria gonorrhoeae not detected by nucleic acid amplification. This does not exclude the possibility of infection because results are dependent on adequate specimen collection. Normal [facility] Comment on above: Performed By: #### C CORINA ARGUELLES, 87099-2 #### [facility] ([id number]) [address] [place] [address] 20464 HCG ( test) Ql (U)o n 12-24-2023 Beta HCG ( test) Ql (U) Negative Normal NEG [facility] Comment on above: Performed By: #### C CORINA ARGUELLES, 06258-0 #### [facility] ([id number]) [address] [place] [address] 77125 URN MACROSCOPIC NURon 2023 BILIRUBIN BRENDEN Negative Normal NEG [facility] Comment on above: Performed By: #### Nataliia ARGUELLES CMP, 77151-6 #### [facility] ([id number]) [address] [place] [address] 13834 BLOOD/HGB BRENDEN MODERATE Abnormal NEG [facility] Comment on above: Performed By: #### Nataliia ARGUELLES CMP, 78826-2 #### [facility] ([id number]) [address] [place] [address] 68745 GLUCOSE BRENDEN Negative Normal NEG [facility] Comment on above: Performed By: #### C CORINA ARGUELLES, 28196-2 #### [facility] ([id number]) [address] [place] [address] 06845 KETONES BRENDEN Negative Normal NEG [facility] Comment on above: Performed By: #### Nataliia ARGUELLES CMP, 35808-3 #### [facility] ([id number]) [address] [place] [address] 49948 LEUKOCYTE ESTERASE BRENDEN Negative Normal NEG [facility] Comment on above: Performed By: #### Nataliia ARGUELLES CMP, 98085-9 #### [facility] ([id number]) [address] [place] [address] 07405 NITRITE BRENDEN Negative Normal NEG [facility] Comment on above: Performed By: #### Nataliia ARGUELLES CMP, 06472-3 #### [facility] ([id number]) [address] [place] [address] 20204 PH BRENDEN 5.5 Normal 5.0-8.5 [facility] Comment on above: Performed By: #### Nataliia ARGUELLES CMP, 44895-9 #### [facility] ([id number]) [address] [place] [address] 44370 PROTEIN BRENDEN 30 mg/dL Abnormal NEG [facility] Comment on above: Performed By: #### Nataliia ARGUELLES CMP, 44966-4 #### [facility] ([id number]) [address] [place] [address] 19072 SPECIFIC GRAVITY BRENDEN 1.020 Normal 1.003-1.035 [facility] Comment on above: Performed By: #### Nataliia ARGUELLES CMP, 05640-2 #### [facility] ([id number]) [address] [place] [address] 85574 UROBILINOGEN BRENDEN 0.2 eu/dL Normal <1.1 [facility] Comment on above: Performed By: #### C CORINA ARGUELLES, 36970-7 #### [facility] ([id number]) [address] [place] [address] MR BRAIN IAC W WO CONTon MR BRAIN IAC W WO CONT MR BRAIN IAC W WO CONT MRI brain and internal auditory canals: HISTORY: Left-sided tinnitus. Multisequence multiplanar imaging of the brain was obtained to include intravenous administration of contrast as well as high-resolution images of the internal auditory canals. Gradient echo sequences show no susceptibility. Ventricles are nondilated. There is no cisternal or sulcal effacement. Pituitary infundibulum is midline. The diffusion-weighted images show no focus of diffusion restriction or acute intracranial ischemia. 7th and 8th cranial nerve complexes appear unremarkable. Contrast-enhanced imaging was acquired showing no focus of pathologic intracranial enhancement. Dural sinuses enhance normally. Partial empty sella noted, not likely to be of clinical significance. No orbital abnormality. The paranasal sinuses and mastoid air cells are clear. No evidence of mass or signal abnormality of the cerebellopontine angles. Myelination pattern are normal. IMPRESSION: Negative exam. Finalized by Casper Callaway MD on 12/14/2023 8:29 AM Normal [facility] 36on 12-12-2023 36 Approving, but needs appt for additional refills. Normal [facility] HCG ( test) Ql (U)o n 11-12-2023 Beta HCG ( test) Ql (U) Negative Normal NEG [facility] Comment on above: Performed By: #### C KINDRA [facility], 16618-5 #### [facility] ([id number]) [address] [place] [address] URN MACROSCOPIC NURon 2023 BILIRUBIN BRENDEN Negative Normal NEG [facility] Comment on above: Performed By: #### C CORINA ARGUELLES, 60122-2 #### [facility] ([id number]) [address] [place] [address] 50318 BLOOD/HGB BRENDEN Large Abnormal NEG [facility] Comment on above: Performed By: #### C KINDRA, CMP, 89190-1 #### [facility] ([id number]) [address] [place] [address] 95633 GLUCOSE BRENDEN Negative Normal NEG [facility] Comment on above: Performed By: #### C KINDRA, CMP, 73454-0 #### [facility] ([id number]) [address] [place] [address] [place] [address] KETONES BRENDEN Negative Normal NEG [facility] Comment on above: Performed By: #### C KINDRA, CMP, 11331-8 #### [facility] ([id number]) [address] [place] [address] 24450 LEUKOCYTE ESTERASE BRENDEN Trace Abnormal NEG [facility] Comment on above: Performed By: #### Nataliia ARGUELLES CMP, 91578-5 #### [facility] ([id number]) [address] [place] [address] [place] [address] NITRITE BRENDEN Negative Normal NEG [facility] Comment on above: Performed By: #### Nataliia ARGUELLES CMP, 10284-1 #### [facility] ([id number]) [address] [place] [address] 29749 PH BRENDEN 5.5 Normal 5.0-8.5 [facility] Comment on above: Performed By: #### Nataliia ARGUELLES, CMP, 07986-1 #### [facility] ([id number]) [address] [place] [address] [place] [address] PROTEIN BRENDEN Negative Normal NEG [facility] Comment on above: Performed By: #### Nataliia ARGUELLES CMP, 95921-5 #### [facility] ([id number]) [address] [place] [address] [place] [address] SPECIFIC GRAVITY BRENDEN 1.010 Normal 1.003-1.035 [facility] Comment on above: Performed By: #### Nataliia ARGUELLES, CMP, 91663-6 #### [facility] ([id number]) [address] [facility] [place] [address] UROBILINOGEN BRENDEN 0.2 eu/dL Normal <1.1 [facility] Comment on above: Performed By: #### C BCA, CMP, 76581-3 #### [facility] ([id number]) [address] [facility] [place] [address] 29on 10-05-2023 29 Addended by: TAZ SANDERS on: 10/08/2023 07:11 AM Modules accepted: Orders Normal [facility] CBC WITH AUTO DIFFERENTIALon 10-05-2023 Basophils (Bld) [#/Vol] 0.03 10*3/uL Normal 0.00-0.20 [facility] Comment on above: Performed By: #### L [id number] #### [facility] (BEAKER) [address] [place] [address] Basophils/100 WBC (Bld) 0.3 % Normal 0.0-1.0 [facility] Comment on above: Performed By: #### L [id number] #### [facility] (BEAKER) [address] [place] [address] Eosinophils (Bld) [#/Vol] 0.00 10*3/uL Normal 0.00-0.50 [facility] Comment on above: Performed By: #### L [id number] #### [facility] (BEAKER) [address] [place] [address] Eosinophils/100 WBC (Bld) 0.0 % Normal 0.0-6.0 [facility] Comment on above: Performed By: #### L [id number] #### [facility] (BEAKER) [address] [place] [address] Erythrocyte distribution width (RBC) [Ratio] 12.6 % Normal 11.5-15.0 [facility] Comment on above: Performed By: #### L AB494 #### [facility] (BEAKER) [address] [place] [address] ERYTHROCYTE MEAN CORPUSCULAR HEMOGLOBIN CONCENTRATION (G/DL) BY AUTOMATED 33.2 g/dL Normal 32.0-35.0 [facility] Comment on above: Performed By: #### L AB494 #### [facility] (BEAKER) [address] [place] [address] Hematocrit (Bld) [Volume fraction] 29.8 % Low 36.0-48.0 [facility] Comment on above: Performed By: #### L AB494 #### [facility] (BEAKER) [address] [address] Hemoglobin (Bld) [Mass/Vol] 9.9 g/dL Low 12.0-15.0 [facility] Comment on above: Performed By: #### L AB494 #### [facility] ([facility] [address] [place] [address] Immature granulocytes (Bld) [#/Vol] 0.04 10*3/uL Normal 0.00-0.20 [facility] Comment on above: Performed By: #### L AB494 #### [facility] (BEAKER) [address] [place] [address] Immature granulocytes/100 WBC (Bld) 0.4 % Normal 0.0-1.0 [facility] Comment on above: Performed By: #### L AB494 #### [facility] (BEAKER) [address] [place] [address] Lymphocytes (Bld) [#/Vol] 0.97 10*3/uL Low 1.20-4.00 [facility] Comment on above: Performed By: #### L AB494 #### [facility] (BEAKER) [address] [place] [address] Lymphocytes/100 WBC (Bld) 10.7 % Low 20.0-45.0 [facility] Comment on above: Performed By: #### L AB494 #### [facility] (BEAKER) [address] [place] [address] MCH (RBC) [Entitic mass] 30.4 pg Normal 27.0-33.0 [facility] Comment on above: Performed By: #### L AB494 #### [facility] ([facility]) [address] [place] [address] MCV (RBC) [Entitic vol] 91.4 fL Normal 82.0-98.0 [facility] Comment on above: Performed By: #### L [id number] #### [facility] ([facility]) [address] [place] [address] Monocytes (Bld) [#/Vol] 0.46 10*3/uL Normal 0.10-1.00 [facility] Comment on above: Performed By: #### L [id number] #### [facility] ([facility]) [address] [place] [address] Monocytes/100 WBC (Bld) 5.1 % Normal 5.0-12.0 [facility] Comment on above: Performed By: #### L [id number] #### [facility] ([facility]) [address] [place] [address] Neutrophils (Bld) [#/Vol] 7.55 10*3/uL Normal 1.60-7.60 [facility] Comment on above: Performed By: #### L [id number] #### [facility] ([facility]) [address] [place] [address] Neutrophils/100 WBC (Bld) 83.5 % High 40.0-72.0 [facility] Comment on above: Performed By: #### L [id number] #### [facility] ([facility]) [address] [place] [address] NRBC (PER 100 WBCS) BY AUTOMATED COUNT 0.0 % Normal 0 [facility] Comment on above: Performed By: #### L [id number] #### [facility] (BEAKER) [address] [place] [address] PLATELETS (10*3/UL) IN BLOOD AUTOMATED COUNT 378 10*3/uL Normal 150-400 [facility] Comment on above: Performed By: #### L [id number] #### [facility] ([facility]) [address] [place] [address] RBC (Bld) [#/Vol] 3.26 10*6/uL Low 3.80-5.00 [facility] Comment on above: Performed By: #### L [id number] #### [facility] ([facility]) [address] [place] [address] WBC (Bld) [#/Vol] 9.05 10*3/uL Normal 4.00-10.60 [facility] Comment on above: Performed By: #### L [id number] #### [facility] ([facility]) [address] [place] [address] CHLAMYDIA TRACHOMATIS AND NE ISSERIA GONORRHEA, TMAon 10-05-2023 CHLAMYDIA TRACHOMATIS DNA PROBE (PRESENCE) IN UNSP SPEC Negative Normal Negative [facility] Comment on above: Result Comment: No C hlamydia trachomatis rRNA Detected. The Aptima Combo 2 Assay is a FDA approved target amplification nucleic acid probe test that utilizes target capture for the in vitro qualitative detection and differentiation of ribosomal RNA (rRNA) from Chlamydia trachomatis (CT) and/or Neisseria gonorrhoeae (GC) to aid the diagnosis of chlamydial and/or gonococcal urogenital disease using the [employer]. The Aptima Combo 2 Assay involves target capture, target amplification by Demolition Hammer Operator-Mediated Amplification (TMA), and the detection of the amplification products (amplicon) by the Hybridization Protection Assay (HPA). The internal process controls of the [employer] monitor the target capture, amplification, and detection steps of the assay, this is not intended to control for sampling adequacy. Performed By: #### L [id number] ####[facility] ([facility])[address] [place] [address] NEISSERIA GONORRHOEAE DNA PROBE (PRESENCE) IN UNSP SPEC Negative Normal Negative [facility] Comment on above: Result Comment: No N eisseria gonorrhoeae rRNA Detected. The Aptima Combo 2 Assay is a FDA approved target amplification nucleic acid probe test that utilizes target capture for the in vitro qualitative detection and differentiation of ribosomal RNA (rRNA) from Chlamydia trachomatis (CT) and/or Neisseria gonorrhoeae (GC) to aid the diagnosis of chlamydial and/or gonococcal urogenital disease using the [employer]. The Aptima Combo 2 Assay involves target capture, target amplification by Demolition Hammer Operator-Mediated Amplification (TMA), and the detection of the amplification products (amplicon) by the Hybridization Protection Assay (HPA). The internal process controls of the [employer] monitor the target capture, amplification, and detection steps of the assay, this is not intended to control for sampling adequacy. Performed By: #### L [id number] ####[facility] (BEAKER)[address] [place] [address] CHLAMYDIA TRACHOMATIS DNA PROBE (PRESENCE) IN UNSP SPEC Negative Normal Negative [facility] Comment on above: Result Comment: No C hlamydia trachomatis rRNA Detected. The Aptima Combo 2 Assay is a FDA approved target amplification nucleic acid probe test that utilizes target capture for the in vitro qualitative detection and differentiation of ribosomal RNA (rRNA) from Chlamydia trachomatis (CT) and/or Neisseria gonorrhoeae (GC) to aid the diagnosis of chlamydial and/or gonococcal urogenital disease using the [employer]. The Aptima Combo 2 Assay involves target capture, target amplification by Demolition Hammer Operator-Mediated Amplification (TMA), and the detection of the amplification products (amplicon) by the Hybridization Protection Assay (HPA). The internal process controls of the [employer] monitor the target capture, amplification, and detection steps of the assay, this is not intended to control for sampling adequacy. Performed By: #### L [id number] ####[facility] (BEAKER)[address] [place] [address] NEISSERIA GONORRHOEAE DNA PROBE (PRESENCE) IN UNSP SPEC Negative Normal Negative [facility] Comment on above: Result Comment: No N eisseria gonorrhoeae rRNA Detected. The Aptima Combo 2 Assay is a FDA approved target amplification nucleic acid probe test that utilizes target capture for the in vitro qualitative detection and differentiation of ribosomal RNA (rRNA) from Chlamydia trachomatis (CT) and/or Neisseria gonorrhoeae (GC) to aid the diagnosis of chlamydial and/or gonococcal urogenital disease using the [employer]. The Aptima Combo 2 Assay involves target capture, target amplification by Demolition Hammer Operator-Mediated Amplification (TMA), and the detection of the amplification products (amplicon) by the Hybridization Protection Assay (HPA). The internal process controls of the [employer] monitor the target capture, amplification, and detection steps of the assay, this is not intended to control for sampling adequacy. Performed By: #### L [id number] ####[facility] ([facility])[address] [place] [address] COMPREHENSIVE METABOLIC PANE Gerardo 10-05-2023 Albumin [Mass/Vol] 4.0 g/dL Normal 3.5-5.7 [facility] Comment on above: Performed By: #### L [id number] #### [facility] ([facility]) [address] [place] [address] ALP [Catalytic activity/Vol] 51 U/L Normal 34-104 [facility] Comment on above: Performed By: #### L [id number] #### [facility] ([facility]) [address] [place] [address] ALT [Catalytic activity/Vol] 7 U/L Normal 7-52 [facility] Comment on above: Performed By: #### L [id number] #### [facility] ([facility]) [address] [place] [address] Anion gap [Moles/Vol] 12 mmol/L Normal 7-20 [facility] Comment on above: Performed By: #### L [id number] #### [facility] [address] [place] [address] AST [Catalytic activity/Vol] 9 U/L Low 13-39 [facility] Comment on above: Performed By: #### L [id number] #### [facility] [address] [place] [address] Bilirubin [Mass/Vol] 0.2 mg/dL Low 0.3-1.0 [facility] Comment on above: Performed By: #### L [id number] #### [facility] [address] [place] [address] Calcium [Mass/Vol] 8.2 mg/dL Low 8.6-10.3 [facility] Comment on above: Performed By: #### L [id number] #### [facility] [address] [place] [address] Chloride [Moles/Vol] 102 mmol/L Normal 98-107 [facility] Comment on above: Performed By: #### L [id number] #### [facility] ([facility] [address] [place] [address] CO2 [Moles/Vol] 28 mmol/L Normal 21-31 [facility] Comment on above: Performed By: #### L [id number] #### [facility] ([facility]) [address] [place] [address] Creatinine [Mass/Vol] 1.73 mg/dL High 0.60-1.20 [facility] Comment on above: Performed By: #### L [id number] #### [facility] ([facility]) [address] [place] [address] GLOMERULAR FILTRATION RATE ML/MIN/1.73 SQ M.PREDICTED 40.0 mL/min/1.73m*2 Low >60.0 [facility] Comment on above: Result Comment: The [facility]???s estimated glomerular filtration rate (eGFR) will no [...] individuals. Performed By: #### L [id number] #### [facility] [address] [place] [address] Glucose [Mass/Vol] 109 mg/dL High 70-100 [facility] Comment on above: Performed By: #### L [id number] #### [facility] ([facility]) [address] [place] [address] Potassium [Moles/Vol] 4.0 mmol/L Normal 3.5-5.1 [facility] Comment on above: Performed By: #### L [id number] #### [facility] ([facility]) [address] [place] [address] Protein [Mass/Vol] 6.6 g/dL Normal 6.0-8.3 [facility] Comment on above: Performed By: #### L [id number] #### [facility] ([facility]) [address] [place] [address] Sodium [Moles/Vol] 138 mmol/L Normal 136-145 [facility] Comment on above: Performed By: #### L [id number] #### [facility] ([facility]) [address] [place] [address] Urea nitrogen [Mass/Vol] 26 mg/dL High 7-25 [facility] Comment on above: Performed By: #### L [id number] #### [facility] ([facility]) [address] [place] [address] UREA NITROGEN/CREATININE (MASS RATIO) IN SER/PLAS 15.0 Normal [facility] Comment on above: Performed By: #### L [id number] #### [facility] ([facility]) [address] [place] [address] HIV COMBO 4Gon 10-05-2023 HIV COMBO 4G Negative Normal Negative [facility] Comment on above: Performed By: #### L [id number] #### [facility] ([facility]) [address] [place] [address] Labon 10-05-2023 Lab [id number] Blanca Rudolph 1990 F Date Provider Department [place] 10/05/2023 2243-[facility] RESOURCE DCC DRAW DCC Family History Problem Relation Age of Onset Hypertension Mother Hypertension Mother's Sister Crohn's disease Mother's Sister Hypertension Maternal Grandmother Breast cancer Maternal Grandmother Kidney disease Other Migraines Other Family Status - Relation Status Age at Mother Mother's Sister Maternal Grandmother Other Normal [facility] Office Visiton 10-05-2023 Follow-up visit [id number] Blanca Rudolph 1990 F Date Provider Department [facility] 10/05/2023 [facility] Family History Problem Relation Age of Onset Hypertension Mother Hypertension Mother's Sister Crohn's disease Mother's Sister Hypertension Maternal Grandmother Breast cancer Maternal Grandmother Kidney disease Other Migraines Other Family Status - Relation Status Age at Mother Mother's Sister Maternal Grandmother Other Level of Service:13061 [place] OFFICE/OUTPATIENT ESTABLISHED MOD MDM 30 MIN Reason for Visit and Comments: Exposure to HIV [Other] Normal [facility] RPRon 10-05-2023 REAGIN AB PRESENCE IN SERUM BY RPR Reactive Abnormal Nonreactive [facility] Comment on above: Performed By: #### L [id number] #### [facility] ([facility]) [address] [place] [address] RPR QUANTITATIVEon RPR QUANT 1:16 High <1:1 [facility] Comment on above: Order Comment: Previ ously Reactive FTA on 04/06/2023. Result Comment: The syphilis screen is a treponemal assay; patients with previously treated syphilis could be reactive on this assay, but nonreactive on the RPR Quant assay. Performed By: #### L [id number] #### [facility] [address] [place] [address] URINALYSISon 10-05-2023 BILIRUBIN, TOTAL PRESENCE IN URINE Negative Normal Negative [facility] Comment on above: Performed By: #### L [id number] ####[facility] ([facility])[address] [place] [address] Clarity (U) Slightly Cloudy Abnormal Clear [facility] Comment on above: Performed By: #### L [id number] ####[facility] (BEAKER)[address] [place] [address] Color (U) Yellow Normal Yellow [facility] Comment on above: Performed By: #### L [id number] ####[facility] ([facility])[address] [place] [address] Glucose (U) [Mass/Vol] Negative Normal Negative [facility] Comment on above: Performed By: #### L [id number] ####[facility] ([facility])[address] [place] [address] HEMOGLOBIN PRESENCE IN URINE Large Abnormal Negative [facility] Comment on above: Performed By: #### L [id number] ####[facility] ([facility])[address] [place] [address] Ketones Ql (U) Negative Normal Negative [facility] Comment on above: Performed By: #### L [id number] ####[facility] ([facility])[address] [place] [address] LEUKOCYTE ESTERASE PRESENCE IN URINE BY TEST STRIP Moderate Abnormal Negative [facility] Comment on above: Performed By: #### L [id number] ####[facility] ([facility])[address] [place] [address] NITRITE PRESENCE IN URINE Negative Normal Negative [facility] Comment on above: Performed By: #### L [id number] ####[facility] ([facility])[address] [place] [address] pH (U) 5.0 [pH] Normal 5.0-8.0 [facility] Comment on above: Performed By: #### L [id number] ####[facility] ([facility])[address] [place] [address] Protein (U) [Mass/Vol] 100 mg/dL Abnormal Negative [facility] Comment on above: Performed By: #### L [id number] ####[facility] ([facility]ER)[address] [place] [address] Specific gravity (U) [Rel density] 1.012 Low 1.015-1.020 [facility] Comment on above: Performed By: #### L [id number] ####[facility] ([facility]ER)[address] [place] [address] URINALYSIS MICROSCOPICon AMORPHOUS CRYSTALS (#/HPF) IN URINE Few Abnormal None Seen [facility] Comment on above: Performed By: #### L [id number] ####[facility] ([facility]ER)[address] [place] [address] CASTS IN URINE Present Abnormal None Seen [facility] Comment on above: Performed By: #### L [id number] ####[facility] (BEAKER)[address] [place] [address] CRYSTALS IN URINE Normal [facility] Comment on above: Performed By: #### L [id number] ####[facility] (BEAKER)[address] [place] [address] HYALINE CASTS /LPF IN URINE SEDIMENT BY MICROSCOPY 4 /LPF High <1 [facility] Comment on above: Performed By: #### L [id number] ####[facility] (BEAKER)[address] [place] [address] MUCUS (#/HPF) IN URINE SEDIMENT Occasional Normal None Seen, Occasional, Few [facility] Comment on above: Performed By: #### L [id number] ####[facility] (BEAKER)[address] [place] [address] RBC (#/HPF) IN URINE SEDIMENT 21-50 Abnormal None Seen [facility] Comment on above: Performed By: #### L [id number] ####[facility] (BEAKER)[address] [place] [address] SQUAMOUS EPITHELIAL CELLS (#/HPF) IN URINE SEDIMENT Many Abnormal None Seen, Occasional [facility] Comment on above: Performed By: #### L [id number] ####[facility] ([facility]ER)[address] [place] [address] WBC (LEUKOCYTE) (#/HPF) IN URINE SEDIMENT 21-50 Abnormal None Seen [facility] Comment on above: Performed By: #### L [id number] ####[facility] (BEAKER)[address] [place] [address] CBC AND AUTO DIFFon 10-02-19 24 ABSOLUTE BASOPHIL 0.0 X10E9/L Normal 0.0-0.2 [facility] Comment on above: Performed By: #### Nataliia ARGUELLES, CMP, 26092-6 #### [facility] ([id number]) [address] [place] [address] ABSOLUTE NEUTROPHIL 6.7 X10E9/L High 1.5-6.6 [facility] Comment on above: Performed By: #### Nataliia ARGUELLES, CMP, 24260-7 #### [facility] ([id number]) [address] [place] [address] Basophils/100 WBC (Bld) 0.3 % Normal [facility] Comment on above: Performed By: #### Nataliia ARGUELLES, CMP, 01820-8 #### [facility] ([id number]) [address] [place] [address] Eosinophils (Bld) [#/Vol] 0.0 10*3/uL Normal 0.0-0.4 [facility] Comment on above: Performed By: #### Nataliia ARGUELLES, CMP, 09465-6 #### [facility] ([id number]) [address] [place] [address] Eosinophils/100 WBC (Bld) 0.4 % Normal [facility] Comment on above: Performed By: #### Nataliia ARGUELLES, CMP, 63750-2 #### [facility] ([id number]) [address] [place] [address] Erythrocyte distribution width (RBC) [Ratio] 13.2 % Normal 11.5-15.0 [facility] Comment on above: Performed By: #### Nataliia ARGUELLES, CMP, 62834-7 #### [facility] ([id number]) [address] [place] [address] Hematocrit (Bld) [Volume fraction] 29.5 % Low 35-47 [facility] Comment on above: Performed By: #### Nataliia ARGUELLES CMP, 46590-8 #### [facility] ([id number]) [address] [place] [address] Hemoglobin (Bld) [Mass/Vol] 10.0 g/dL Low 11.7-15.5 [facility] Comment on above: Performed By: #### Nataliia ARGUELLES CMP, 75092-3 #### [facility] ([id number]) [address] [place] [address] Lymphocytes (Bld) [#/Vol] 0.6 10*3/uL Low 1.0-3.5 [facility] Comment on above: Performed By: #### Nataliia ARGUELLES CMP, 27153-9 #### [facility] ([id number]) [address] [place] [address] Lymphocytes/100 WBC (Bld) 7.6 % Normal [facility] Comment on above: Performed By: #### Nataliia ARGUELLES CMP, 80201-7 #### [facility] ([id number]) [address] [place] [address] MCH (RBC) [Entitic mass] 31.0 pg Normal 27-34 [facility] Comment on above: Performed By: #### Nataliia ARGUELLES CMP, 86124-9 #### [facility] ([id number]) [address] [place] [address] MCHC (RBC) [Mass/Vol] 33.8 g/dL Normal 32-36 [facility] Comment on above: Performed By: #### Nataliia ARGUELLES CMP, 78701-8 #### [facility] ([id number]) [address] [place] [address] MCV (RBC) [Entitic vol] 92 fL Normal 80-100 [facility] Comment on above: Performed By: #### Nataliia ARGUELLES, CMP, 88246-6 #### [facility] ([id number]) [address] [place] [address] Monocytes (Bld) [#/Vol] 0.4 10*3/uL Normal 0-0.9 [facility] Comment on above: Performed By: #### Nataliia ARGUELLES, CMP, 88234-7 #### [facility] ([id number]) [address] [place] [address] Monocytes/100 WBC (Bld) 5.8 % Normal [facility] Comment on above: Performed By: #### Nataliia ARGUELLES, CMP, 39936-5 #### [facility] ([id number]) [address] [place] [address] Neutrophils/100 WBC (Bld) 85.9 % Normal [facility] Comment on above: Performed By: #### Nataliia BCA, CMP, 23979-2 #### [facility] ([id number]) [address] [place] [address] Platelet mean volume (Bld) [Entitic vol] 8.1 fL Normal 7-12 [facility] Comment on above: Performed By: #### Nataliia ARGUELLES, CMP, 97584-3 #### [facility] ([id number]) [address] [place] [address] Platelets (Bld) [#/Vol] 322 10*3/uL Normal 150-450 [facility] Comment on above: Performed By: #### Nataliia ARGUELLES, CMP, 88289-0 #### [facility] ([id number]) [address] [place] [address] RBC COUNT 3.21 X10E12/L Low 3.80-5.20 [facility] Comment on above: Performed By: #### Nataliia ARGUELLES, CMP, 52105-6 #### [facility] ([id number]) [address] [place] [address] WBC (Bld) [#/Vol] 7.8 10*3/uL Normal 4.0-11.0 [facility] Comment on above: Performed By: #### C BCA, CMP, 43296-6 #### [facility] ([id number]) [address] [place] [address] COMPREHENSIVE METABOLIC PANE Gerardo 10-02-2023 Albumin [Mass/Vol] 3.9 g/dL Normal 3.2-5.3 [facility] Comment on above: Performed By: #### C BCA, CMP, 07087-8 #### [facility] ([id number]) [address] [place] [address] ALP [Catalytic activity/Vol] 44 U/L Normal 39-130 [facility] Comment on above: Performed By: #### Nataliia BCA, CMP, 41527-8 #### [facility] ([id number]) [address] [place] [address] ALT [Catalytic activity/Vol] 9 U/L Normal 0-31 [facility] Comment on above: Performed By: #### C BCA, CMP, 36890-1 #### [facility] ([id number]) [address] [place] [address] Anion gap [Moles/Vol] 10 mmol/L Normal 5-15 [facility] Comment on above: Performed By: #### C BCA, CMP, 66642-3 #### [facility] ([id number]) [address] [place] [address] AST [Catalytic activity/Vol] 13 U/L Normal 0-41 [facility] Comment on above: Performed By: #### C BCA, CMP, 00632-9 #### [facility] ([id number]) [address] [place] [address] Bilirubin [Mass/Vol] 0.5 mg/dL Normal 0.3-1.2 [facility] Comment on above: Performed By: #### C KINDRA CMP, 78202-3 #### [facility] ([id number]) [address] [place] [address] Calcium [Mass/Vol] 8.9 mg/dL Normal 8.5-10.5 [facility] Comment on above: Performed By: #### C KINDRA, CMP, 84098-3 #### [facility] ([id number]) [address] [place] [address] Chloride [Moles/Vol] 103 mmol/L Normal 98-109 [facility] Comment on above: Performed By: #### C KINDRA CMP, 73432-3 #### [facility] ([id number]) [address] [place] [address] CO2 [Moles/Vol] 31 mmol/L Normal 22-32 [facility] Comment on above: Performed By: #### C KIDNRA, CMP, 21308-3 #### [facility] ([id number]) [address] [place] [address] Creatinine [Mass/Vol] 1.71 mg/dL High 0.40-1.00 [facility] Comment on above: Result Comment: METH OD TRACEABLE TO IDMS STANDARD Performed By: #### C BCA, CMP, 78819-3 #### [facility] ([id number]) [address] [place] [address] GFR/1.73 sq M.predicted among non-blacks MDRD (S/P/Bld) [Vol rate/Area] 41 mL/min/{1.73_m2} Low >59 [facility] Comment on above: Result Comment: Reported eGFR is based on the CKD-EPI 2020 equation that does not use a race coefficient. Performed By: #### C BCA, CMP, 49596-7 #### [facility] ([id number]) [address] [place] [address] Glucose [Mass/Vol] 112 mg/dL High 65-99 [facility] [facility] Comment on above: Performed By: #### C KINDRA, CMP, 31644-4 #### [facility] ([id number]) [address] [place] [address] 56331 Potassium [Moles/Vol] 3.7 mmol/L Normal 3.5-5.0 [facility] Comment on above: Performed By: #### C KINDRA, CMP, 20122-7 #### [facility] ([id number]) [address] [place] [address] 86192 Protein [Mass/Vol] 6.5 g/dL Normal 6.0-8.0 [facility] Comment on above: Performed By: #### Nataliia ARGUELLES, CMP, 13614-5 #### [facility] ([id number]) [address] [place] [address] [place] [address] Sodium [Moles/Vol] 144 mmol/L Normal 134-146 [facility] Comment on above: Performed By: #### C KINDRA, CMP, 51072-5 #### [facility] ([id number]) [address] [place] [address] 63392 Urea nitrogen [Mass/Vol] 33 mg/dL High 5-23 [facility] Comment on above: Performed By: #### C BCA, CMP, 09226-3 #### [facility] ([id number]) [address] [place] [address] 33340 CRP [Mass/Vol]on 10-02-2023 C REACTIVE PROTEIN 1.1 mg/dL High 0.000-0.744 [facility] Comment on above: Performed By: #### C KINDRA, CMP, 17552-6 #### [facility] ([id number]) [address] [place] [address] [place] [address] ESR Photometric method (Bld) [Velocity]on 10-02-2023 ESR, ERYTHROCYTE SEDIMENTATION RATE 6 mm/h Normal 0-20 [facility] Comment on above: Performed By: #### C KINDRA, CMP, 97153-8 #### [facility] ([id number]) [address] [place] [address] 02114 PROTEIN CREAT RATIOon 2023 RANDOM URINE PROTEIN 70 mg/L Normal <120 [facility] Comment on above: Performed By: #### C KINDRA, CMP, 29086-8 #### [facility] ([id number]) [address] [place] [address] 12009 U/PRO/PLUG CUTTING MACHINE OPERATOR RATIO CALC 0.15 Normal <0.2 [facility] Comment on above: Result Comment: Neph rotic Syndrome is associated with ratios >3.5 Performed By: #### C CORINA ARGUELLES, 51112-2 #### [facility] ([id number]) [address] [place] [address] 05779 URINE CREATININE,RDM 45.67 mg/dL Normal [facility] Comment on above: Performed By: #### Nataliia ARGUELLES, CMP, 77786-2 #### [facility] ([id number]) [address] [place] [address] 93516 URINALYSISon 10-02-2023 Bilirubin Ql (U) Negative Normal NEG [facility] Comment on above: Performed By: #### C KINDRA, CMP, 10096-5 #### [facility] ([id number]) [address] [place] [address] 18093 BLOOD/HGB MODERATE Abnormal NEG [facility] Comment on above: Performed By: #### Nataliia ARGUELLES, CMP, 21757-5 #### [facility] ([id number]) [address] [place] [address] 59878 Color (U) YELLOW Normal YELLOW [facility] Comment on above: Performed By: #### C BCA, CMP, 40920-0 #### [facility] ([id number]) [address] [place] [address] [place] [address] Glucose Ql (U) Negative Normal NEG [facility] Comment on above: Performed By: #### C BCA, CMP, 11288-5 #### [facility] ([id number]) [address] [place] [address] [place] [address] Ketones Ql (U) Negative Normal NEG [facility] Comment on above: Performed By: #### C KINDRA, CMP, 41093-6 #### [facility] ([id number]) [address] [place] [address] [place] [address] Leukocyte esterase Test strip Ql (U) Negative Normal NEG [facility] Comment on above: Performed By: #### C KINDRA CMP, 07233-2 #### [facility] ([id number]) [address] [place] [address] [place] [address] MUCOUS PRESENT Abnormal NONE [facility] Comment on above: Performed By: #### C KINDRA, CMP, 53309-4 #### [facility] ([id number]) [address] [place] [address] [place] [address] Nitrite Ql (U) Negative Normal NEG [facility] Comment on above: Performed By: #### C BCA, CMP, 53975-3 #### [facility] ([id number]) [address] [place] [address] [place] [address] pH (U) 6.0 [pH] Normal 5.0-8.5 [facility] Comment on above: Performed By: #### C BCA, CMP, 09342-8 #### [facility] ([id number]) [address] [place] [address] [place] [address] Protein Ql (U) Negative Normal NEG [facility] Comment on above: Performed By: #### C BCA, CMP, 59829-4 #### [facility] ([id number]) [address] [place] [address] 19445 R.B.CELLS 19 /hpf High 0-5 [facility] Comment on above: Performed By: #### Nataliia ARGUELLES CMP, 48678-2 #### [facility] ([id number]) [address] [place] [address] 14052 Specific gravity (U) [Rel density] 1.009 Normal 1.003-1.035 [facility] Comment on above: Performed By: #### Nataliia ARGUELLES CMP, 14478-6 #### [facility] ([id number]) [address] [place] [address] 61198 SQUAMOUS EPITHELIUM 1 /hpf Normal 0-5 [facility] Comment on above: Performed By: #### Nataliia ARGUELLES CMP, 41803-3 #### [facility] ([id number]) [address] [place] [address] 40083 TURBIDITY CLEAR Normal CLEAR [facility] Comment on above: Performed By: #### Nataliia ARGUELLES CMP, 07497-0 #### [facility] ([id number]) [address] [place] [address] 08489 Urobilinogen (U) [Mass/Vol] mg/dL Normal <1.1 [facility] Comment on above: Performed By: #### Nataliia ARGUELLES CMP, 73986-1 #### [facility] ([id number]) [address] [place] [address] 65268 W.B.CELLS 1 /hpf Normal 0-5 [facility] Comment on above: Performed By: #### Nataliia ARGUELLES CMP, 47857-2 #### [facility] ([id number]) [address] [place] [address] 04039 Orders Onlyon 09-27-2023 Orders Only [id number] Blanca Rudolph 1990 F Date Provider Department Center 09/27/2023 JasonKRISTINFIDELROSEY ORIN [facility] INF [facility]na [facility] Family History Problem Relation Age of Onset Hypertension Mother Hypertension Mother's Sister Crohn's disease Mother's Sister Hypertension Maternal Grandmother Breast cancer Maternal Grandmother Kidney disease Other Migraines Other Family Status - Relation Status Age at Mother Mother's Sister Maternal Grandmother Other [facility] Refillon 09-07-2023 Refill [id number] Blanca Rudolph 1990 F Date Provider Department Center 09/07/2023 111-AICRISTOPHER ORIN [facility] CARE [facility] Family History Problem Relation Age of Onset Hypertension Mother Hypertension Mother's Sister Crohn's disease Mother's Sister Hypertension Maternal Grandmother Breast cancer Maternal Grandmother Kidney disease Other Migraines Other Family Status - Relation Status Age at Mother Mother's Sister Maternal Grandmother Other Reason for Visit and Comments: Med Refill [[id number]] [facility] Ambulatory Visit Summaryon 0 08-23-2023 Ambulatory Visit Summary BLANCA RUDOLPH :1990 Visit Date:08/23/2023 Ambulatory Visit Instructions Your Diagnosis Alternating constipation and diarrhea RUQ cramping Lupus Acid reflux Former smoker Nausea Your Care Team Attending Physician - Saw Huynh MD Primary Care Physician - NONE, XXXX This Is Your Medications List Contact prescribing physician if questions or concerns albuterol (Albuterol (Eqv-ProAir HFA) 90 mcg/inh inhalation aerosol) allopurinol (allopurinol 100 mg Tab) amitriptyline (amitriptyline 25 mg Tab) bumetanide (bumetanide 2 mg Tab) carvedilol (carvedilol 6.25 mg Tab) cetirizine (cetirizine 10 mg Tab) dicyclomine (dicyclomine 10 mg Cap) emtricitabine-tenofovi r (Descovy 200 mg-25 mg oral tablet) ergocalciferol (ergocalciferol 50,000 intl units Cap) etonogestrel (Nexplanon) famotidine (Pepcid 20 mg Tab) ferrous sulfate (FeroSul 325 mg oral tablet) fluocinonide topical (fluocinonide topical 0.05% solution) ketoconazole topical (ketoconazole Top 2% Shampoo) magnesium oxide (magnesium oxide 400 mg Tab) mycophenolate mofetil (mycophenolate mofetil 500 mg oral tablet) ondansetron (ondansetron 4 mg Dis Tab) potassium chloride (Potassium Chloride (Sga-Awmg-Kgz M20) 20 mEq oral tablet, extended release) predniSONE (predniSONE 20 mg Tab) rivaroxaban (Xarelto) rizatriptan (rizatriptan 10 mg Tab) voclosporin (Lupkynis 7.9 mg oral capsule) Procedures Performed section, Cholecystectomy, Incision and drainage of hematoma, Tubal ligation. Discharge Vitals Heart Rate (Peripheral) 80 Respiratory Rate 18 Blood Pressure 142/90 Height 175 cm Height 69 in Weight 118 kg Weight 259.6 lb BMI 38.53 What to do next Scheduled Follow-Up Appointments Sunday 11:00 AM EDT With: CYNTHIA GALLARDO PA-C Where: [facility] Gastroenterology Office/Clin ic Noteon 08-23-2023 Gastroenterology Office/Clinic Note Chief Complaint alternating stools, RUQ cramping HPI Staff Patient is a 32 year old female who presents today for a sick call with c/o alternating stools (normal - diarrhea) and RUQ cramping. No previous colonoscopy. No fam. hx colon cancer. Aunt has Crohn's disease. Takes Xarelto daily. Recently dx with lupus - see below. Cholecystectomy 07/11/22 w/Dr. Mauricio. Saw [facility] (Dr. Sherman Calle) on 05/03/23. Summary below: 1. Nephrotic syndrome, class IV lupus nephritis. a. 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 Systemic lupus erythematosus a. Positive SANDER and low complement levels. b. Manifested with recurrent fever, alopecia, oral ulcers, malar rash, arthritis, lymphadenopathy Last visit 08/10/22 w/Katrin: Assessment/Plan 1. Acid reflux (K21.9: Gastro-esophageal reflux disease without esophagitis) Off/on gas, belching, and acid reflux over the last 5 months- improved with omeprazole 40mg daily- see HPI for details regarding. 2. Gas pain (R14.1: Gas pain) 3. Gastritis (K29.70: Gastritis, unspecified, without bleeding) Avoid NSAIDs. Continue omeprazole 40mg daily. Continue pepcid 20mg PRN. EGD 03/10/22: Impression and Plan Mild gastric erosions in the antrum and gastric body, random biopsies obtained to rule out H. pylori Pathology: Final Diagnosis (Verified) STOMACH, BIOPSY: ? GASTRIC MUCOSA WITH MODERATE CHRONIC ACTIVE GASTRITIS, EROSION AND HYPERPLASTIC REGENERATIVE CHANGES. ? NO INTESTINAL METAPLASIA IDENTIFIED. ? NO DEFINITIVE H. PYLORI MICROORGANISMS IDENTIFIED WITH IMMUNOSTAIN. History of Present Illness heartburn- occasionally, taking pepcid 20mg, took omeprazole in the past but her department supervisor told her that it was not for her kidneys Denies bloody stools Denies Early satiety Denies vomiting Does have nausea before and after eating Recent D&C, Review of Systems PHQ Score Initial Depression Screen Score: 0 SCORE All systems reviewed, negative; Except for above Physical Exam Vitals & Measurements HR: 80(Peripheral) RR: 18 BP: 142/90 HT: 69 in HT: 175 cm WT: 118 kg WT: 259.6 lb BMI: 38.53 General: in Nad Abdomen: Soft, NTND Assessment/Plan 1. Alternating constipation and diarrhea (R19.8: Other specified symptoms and signs involving the digestive system and abdomen) Overall she has normal bowel movements now, she is on renal diet, she reported she wanted to come to clinic to make sure her GI tract is okay in the middle of lupus therapy issues and multiple therapies right now She avoids certain foods because they upset her stomach, but for the most part she can eat well, no early Sunday, no red flags, currently normal bowel movements, no blood in stool We discussed we can try omeprazole empirically for 2 to 4 weeks if symptoms worsen if she is having some more nausea or abdominal pain, but for now she would like to continue Pepcid There is no indication for EGD or colonoscopy at this point, she had EGD couple years ago with minimal erosions, biopsies were negative, I would favor anesthesia consult if EGD or colonoscopy needed, likely will need to be bridged with anticoagulation or refer to tertiary facility given her comorbidities 2. RUQ cramping (R10.11: Right upper quadrant pain) Recent D&C 3. Lupus (M32.9: Systemic lupus erythematosus, unspecified) Started Lupkynis this last Sunday 4. Acid reflux (K21.9: Gastro-esophageal reflux disease without esophagitis) Currently taking pepcid Discussed omeprazole in the future if needed 5. Former smoker (Z87.891: Personal history of nicotine dependence) 6. Nausea (R11.0: Nausea) Take FDgard OTC Consider EGD if persist I, Maite Iniguez, personally scribed for Saw Huynh MD on 08/23/2023 13:15:29. . Follow-up No qualifying data available Problem List/Past Medical History Ongoing Acid reflux ADD (attention deficit disorder) Allergic rhinitis Alternating constipation and diarrhea Anxiety Back pain BMI 45.0-49.9, adult Calculus of gallbladder Cholelithiasis Depressive disorder Epigastric pain Former smoker Frequent UTI Gas pain Gastritis Hypertension jail current use of cannabis Lupus Morbid obesity Nausea On rivaroxaban therapy RUQ cramping Type II diabetes mellitus Historical Adult ADHD Procedure/Surgical History section, Cholecystectomy, Incision and drainage of hematoma, Tubal ligation. Medications Albuterol (Eqv-ProAir HFA) 90 mcg/inh inhalation aerosol allopurinol 100 mg Tab amitriptyline 25 mg Tab bumetanide 2 mg Tab carvedilol 6.25 mg Tab cetirizine 10 mg Tab Descovy 200 mg-25 mg oral tablet dicyclomine 10 mg Cap ergocalciferol 50,000 intl units Cap FeroSul 325 mg oral tablet, 325 mg= 1 tab(s), Oral, Daily fluocinonide topical 0.05% solution ketoconazole Top 2% (more content not included)... Normal [facility] Comment on above: Result Comment: Elec tronically Signed By: Lino XIONG, Saw Delarosa\.br\Date and Time Signed: 08/23/23 13:18 EDT\.br\Electronically Co-Signed By: Maite Iniguez MA\.br\Date and Time Co-Signed: 08/23/23 13:15 EDT CBC AND AUTO DIFFon 08-22-19 ABSOLUTE BASOPHIL 0.0 X10E9/L Normal 0.0-0.2 [facility] Comment on above: Performed By: #### 1 0839-9 #### [facility] ([id number]) [address] [place] [address] 34470 ABSOLUTE NEUTROPHIL 7.2 X10E9/L High 1.5-6.6 [facility] Comment on above: Performed By: #### 1 0839-9 #### [facility] ([id number]) [address] [place] [address] 34692 Basophils/100 WBC (Bld) 0.4 % Normal [facility] Comment on above: Performed By: #### 1 0839-9 #### [facility] ([id number]) [address] [place] [address] 94849 Eosinophils (Bld) [#/Vol] 0.0 10*3/uL Normal 0.0-0.4 [facility] Comment on above: Performed By: #### 1 0839-9 #### [facility] ([id number]) [address] [place] [address] 68085 Eosinophils/100 WBC (Bld) 0.3 % Normal [facility] Comment on above: Performed By: #### 1 0839-9 #### [facility] ([id number]) [address] [place] [address] 86886 Erythrocyte distribution width (RBC) [Ratio] 13.4 % Normal 11.5-15.0 [facility] Comment on above: Performed By: #### 1 0839-9 #### [facility] ([id number]) [address] [place] [address] 43733 Hematocrit (Bld) [Volume fraction] 36.3 % Normal 35-47 [facility] Comment on above: Performed By: #### 1 0839-9 #### [facility] ([id number]) [address] [place] [address] 09756 Hemoglobin (Bld) [Mass/Vol] 12.8 g/dL Normal 11.7-15.5 [facility] Comment on above: Performed By: #### 1 0839-9 #### [facility] ([id number]) [address] [place] [address] 53304 Lymphocytes (Bld) [#/Vol] 2.1 10*3/uL Normal 1.0-3.5 [facility] Comment on above: Performed By: #### 1 0839-9 #### [facility] ([id number]) [address] [place] [address] 37084 Lymphocytes/100 WBC (Bld) 21.2 % Normal [facility] Comment on above: Performed By: #### 1 0839-9 #### [facility] ([id number]) [address] [place] [address] 91196 MCH (RBC) [Entitic mass] 31.9 pg Normal 27-34 [facility] Comment on above: Performed By: #### 1 0839-9 #### [facility] ([id number]) [address] [place] [address] 56713 MCHC (RBC) [Mass/Vol] 35.2 g/dL Normal 32-36 [facility] Comment on above: Performed By: #### 1 0839-9 #### [facility] ([id number]) [address] [place] [address] 66272 MCV (RBC) [Entitic vol] 91 fL Normal 80-100 [facility] Comment on above: Performed By: #### 1 0839-9 #### [facility] ([id number]) [address] [place] [address] 69146 Monocytes (Bld) [#/Vol] 0.7 10*3/uL Normal 0-0.9 [facility] Comment on above: Performed By: #### 1 0839-9 #### [facility] ([id number]) [address] [place] [address] 62636 Monocytes/100 WBC (Bld) 7.1 % Normal [facility] Comment on above: Performed By: #### 1 0839-9 #### [facility] ([id number]) [address] [place] [address] 46964 Neutrophils/100 WBC (Bld) 71.0 % Normal [facility] Comment on above: Performed By: #### 1 0839-9 #### [facility] ([id number]) [address] [place] [address] 56177 Platelet mean volume (Bld) [Entitic vol] 7.2 fL Normal 7-12 [facility] Comment on above: Performed By: #### 1 0839-9 #### [facility] ([id number]) [address] [place] [address] 39962 Platelets (Bld) [#/Vol] 296 10*3/uL Normal 150-450 [facility] Comment on above: Performed By: #### 1 0839-9 #### [facility] ([id number]) [address] [place] [address] 13988 RBC COUNT 4.01 X10E12/L Normal 3.80-5.20 [facility] Comment on above: Performed By: #### 1 0839-9 #### [facility] ([id number]) [address] [place] [address] 61013 WBC (Bld) [#/Vol] 10.1 10*3/uL Normal 4.0-11.0 [facility] Comment on above: Performed By: #### 1 0839-9 #### [facility] ([id number]) [address] [place] [address] 34486 COMPREHENSIVE METABOLIC PANE Gerardo 08-22-2023 Albumin [Mass/Vol] 3.8 g/dL Normal 3.2-5.3 [facility] Comment on above: Performed By: #### C KINDRA CMP, 66772-2 #### [facility] ([id number]) [address] [place] [address] 22416 ALP [Catalytic activity/Vol] 43 U/L Normal 39-130 [facility] Comment on above: Performed By: #### C KINDRA CMP, 99024-3 #### [facility] ([id number]) [address] [place] [address] 38678 ALT [Catalytic activity/Vol] 12 U/L Normal 0-31 [facility] Comment on above: Performed By: #### C CORINA ARGUELLES, 18604-2 #### [facility] ([id number]) [address] [place] [address] 86448 Anion gap [Moles/Vol] 8 mmol/L Normal 5-15 [facility] Comment on above: Performed By: #### C KINDRA CMP, 17337-6 #### [facility] ([id number]) [address] [place] [address] 63731 AST [Catalytic activity/Vol] 12 U/L Normal 0-41 [facility] Comment on above: Performed By: #### C KINDRA CMP, 69178-2 #### [facility] ([id number]) [address] [place] [address] 35627 Bilirubin [Mass/Vol] 0.6 mg/dL Normal 0.3-1.2 [facility] Comment on above: Performed By: #### C KINDRA, CMP, 51215-4 #### [facility] ([id number]) [address] [place] [address] 73077 Calcium [Mass/Vol] 8.2 mg/dL Low 8.5-10.5 [facility] Comment on above: Performed By: #### C BCA, CMP, 10792-1 #### [facility] ([id number]) [address] [place] [address] 39971 Chloride [Moles/Vol] 96 mmol/L Low 98-109 [facility] Comment on above: Performed By: #### C KINDRA, CMP, 88766-5 #### [facility] ([id number]) [address] [place] [address] 83083 CO2 [Moles/Vol] 31 mmol/L Normal 22-32 [facility] Comment on above: Performed By: #### Nataliia ARGUELLES, CMP, 55804-8 #### [facility] ([id number]) [address] [place] [address] 65989 Creatinine [Mass/Vol] 1.54 mg/dL High 0.40-1.00 [facility] Comment on above: Result Comment: METH OD TRACEABLE TO IDMS STANDARD Performed By: #### C CORINA ARGUELLES, 10423-1 #### [facility] ([id number]) [address] [place] [address] 17399 GFR/1.73 sq M.predicted among non-blacks MDRD (S/P/Bld) [Vol rate/Area] 46 mL/min/{1.73_m2} Low >59 [facility] Comment on above: Result Comment: Reported eGFR is based on the CKD-EPI 1 equation that does not use a race coefficient. Performed By: #### C KINDRA, CMP, 70969-4 #### [facility] ([id number]) [address] [place] [address] 95689 Glucose [Mass/Vol] 91 mg/dL Normal 65-99 [facility] Comment on above: Performed By: #### C BCA, CMP, 82013-3 #### [facility] ([id number]) [address] [place] [address] 74987 Potassium [Moles/Vol] 3.5 mmol/L Normal 3.5-5.0 [facility] Comment on above: Performed By: #### Nataliia ARGUELLES CMP, 73199-3 #### [facility] ([id number]) [address] [place] [address] 62951 Protein [Mass/Vol] 6.6 g/dL Normal 6.0-8.0 [facility] Comment on above: Performed By: #### C CORINA ARGUELLES, 82128-8 #### [facility] ([id number]) [address] [place] [address] 93200 Sodium [Moles/Vol] 135 mmol/L Normal 134-146 [facility] Comment on above: Performed By: #### Nataliia ARGUELLES CMP, 37481-7 #### [facility] ([id number]) [address] [place] [address] 68164 Urea nitrogen [Mass/Vol] 38 mg/dL High 5-23 [facility] Comment on above: Performed By: #### Nataliia ARGUELLES CMP, 73313-7 #### [facility] ([id number]) [address] [place] [address] 72806 CREATININEon 08-22-2023 Creatinine [Mass/Vol] 1.34 mg/dL High 0.40-1.00 [facility] Comment on above: Result Comment: METH OD TRACEABLE TO IDMS STANDARD Performed By: #### C CORINA ARGUELLES, 45978-3 #### [facility] ([id number]) [address] [place] [address] 51823 GFR/1.73 sq M.predicted among non-blacks MDRD (S/P/Bld) [Vol rate/Area] 54 mL/min/{1.73_m2} Low >59 [facility] Comment on above: Result Comment: Reported eGFR is based on the CKD-EPI 2020 equation that does not use a race coefficient. Performed By: #### C CORINA ARGUELLES, 31587-9 #### [facility] ([id number]) [address] [place] [address] 78728 HCG ( test) Ql (U)o n 08-22-2023 Beta HCG ( test) Ql (U) Negative Normal NEG [facility] Comment on above: Performed By: #### C KINDRA, CMP, 41067-4 #### [facility] ([id number]) [address] [place] [address] 94365 PROTEIN CREAT RATIOon 2023 RANDOM URINE PROTEIN 120 mg/L High <120 [facility] Comment on above: Performed By: #### C KINDRA, CORINA, 29963-6 #### [facility] ([id number]) [address] [place] [address] 38781 U/PRO/PLUG CUTTING MACHINE OPERATOR RATIO CALC 0.36 High <0.2 [facility] Comment on above: Result Comment: Neph rotic Syndrome is associated with ratios >3.5 Performed By: #### C KINDRA, CORINA, 54277-8 #### [facility] ([id number]) [address] [place] [address] 74354 URINE CREATININE,RDM 33.46 mg/dL Normal [facility] Comment on above: Performed By: #### Nataliia ARGUELLES, CORINA, 20102-3 #### [facility] ([id number]) [address] [place] [address] 65412 SARS/FLU A+B/RSV by NAAT/Mol ecularon 08-22-2023 SARS/FLU A+B/RSV by NAAT/Molecular FLU A PCR [...] operators who are performing tests using either [employer] or [employer] systems and is limited to laboratories that [...] repeat. Fact Sheet for Healthcare Providers: https://www.fda.gov/me fariha/576442/download Fact Sheet for Patients: https://www.fda.gov/me fariha/472026/download Normal [facility] Comment on above: Performed By: #### C BCA, CMP, 22319-8 #### [facility] ([id number]) [address] [place] [address], [place] [address] URINALYSISon 08-22-2023 Bilirubin Ql (U) Negative Normal NEG [facility] BLOOD/HGB Large Abnormal NEG [facility] Color (U) YELLOW Normal YELLOW [facility] Glucose Ql (U) Negative Normal NEG [facility] Ketones Ql (U) Negative Normal NEG [facility] Leukocyte esterase Test strip Ql (U) MODERATE Abnormal NEG [facility] MUCOUS PRESENT Abnormal NONE [facility] Nitrite Ql (U) Negative Normal NEG [facility] pH (U) 6.5 [pH] Normal 5.0-8.5 [facility] Protein Ql (U) Negative Normal NEG [facility] R.B.CELLS 26 /hpf High 0-5 [facility] Specific gravity (U) [Rel density] 1.010 Normal 1.003-1.035 [facility] SQUAMOUS EPITHELIUM 8 /hpf High 0-5 [facility] TURBIDITY CLEAR Normal CLEAR [facility] Urobilinogen (U) [Mass/Vol] mg/dL Normal <1.1 [facility] W.B.CELLS 9 /hpf High 0-5 [facility] URN MACROSCOPIC NURon 2023 BILIRUBIN BRENDEN Negative Normal NEG [facility] Comment on above: Performed By: #### 1 0839-9 #### [facility] ([id number]) [address] [place] [address], [facility] [place] [address] BLOOD/HGB BRENDEN Large Abnormal NEG [facility] Comment on above: Performed By: #### 1 0839-9 #### [facility] ([id number]) [address] [place] [address], [place] [address] GLUCOSE BRENDEN Negative Normal [facility] Comment on above: Performed By: #### 1 0839-9 #### [facility] ([id number]) [address] [place] [address], [place] [address] KETONES BRENDEN Negative Normal NEG [facility] Comment on above: Performed By: #### 1 0839-9 #### [facility] ([id number]) [address] [place] [address], [place] [address] LEUKOCYTE ESTERASE BRENDEN Negative Normal NEG [facility] Comment on above: Performed By: #### 1 0839-9 #### [facility] ([id number]) [address] [place] [address] NITRITE BRENDEN Negative Normal NEG [facility] Comment on above: Performed By: #### 1 0839-9 #### [facility] ([id number]) [address] [place] [address] PH BRENDEN 5.5 Normal 5.0-8.5 [facility] Comment on above: Performed By: #### 1 0839-9 #### [facility] ([id number]) [address] [place] [address] PROTEIN BRENDEN 100 mg/dL Abnormal NEG [facility] Comment on above: Performed By: #### 1 0839-9 #### [facility] ([id number]) [address] [place] [address] SPECIFIC GRAVITY BRENDEN 1.020 Normal 1.003-1.035 [facility] Comment on above: Performed By: #### 1 0839-9 #### [facility] ([id number]) [address] [place] [address] UROBILINOGEN BRENDEN 0.2 eu/dL Normal <1.1 [facility] Comment on above: Performed By: #### 1 0839-9 #### [facility] ([id number]) [address] [place] [address] XR CHEST 1 VWon 08-22-2023 XR CHEST 1 VW XR CHEST 1 VW History: Cough Technique: A portable single frontal view the chest was obtained. Comparison: 06/19/2023 Findings: There is no evidence for active cardiovascular or pulmonary disease. The heart size is within normal limits and lung mancilla are clear. Impression: Normal chest. Finalized by Juan Cole MD on 08/22/2023 1:19 AM Normal [facility] Egrardo 08-16-2023 L Specimen: [id number] Received: 08/16/23 Status: SOUT Req Num: [id number] Spec Type: Surgical Subm Dr: Mayco Albright Tissues: A Endometrium - Curettings (ENDOMETRIAL) Procedures: HE/2, Gross/Micro L4 Age/ Patient Sex Location Account Attending Physician RonniBlanca Pope / LABELL [id number] Mayco Albright SPEC NUM: [id number] RECD: 08/16/23 STATUS: ROSE ADAIR NUM: [id number] JAVIER: 08/16/23- SUBM DR: Mayco Albright ENTERED: 08/16/[address] [facility] [address]: SPEC TYPE: Surgical DEPT: ZION GUAJARDO ENTERED BY: [id number] RECV BY: [id number] ORDERED: HE/2, Gross/Micro L4 ORDERED: HE/2, Gross/Micro L4 Pathological Diagnosis Endometrial curettings: -Multiple strips of benign endometrial mucosal tissue with histopathological changes consistent with moderate progestin effect, otherwise without hyperplasia or atypia identified Gross Description The specimen is received in formalin, labeled with the patient's name and endometrial curettings , consisting of multiple hernandez-pink tissue fragments admixed with clotted blood and on a Telfa pad measuring in aggregate 2.7 x 2.1 x 0.3 cm, entirely submitted in A1. Clinical history: Menorrhagia, pelvic pain, breakthrough bleeding with Nexplanon CPT Codes 35317 ---- ---- Specimen: [id number] Received: 08/16/23 Status: ROSE Diana Num: [id number] Spec Type: Surgical Subm Dr: Mayco Albright Tissues: A Endometrium - Curettings (ENDOMETRIAL) Procedures: HE/2, Anirudh/Destinee L4 ---- Patient: Blanca Rudolph [id number] (Continued) ---- Signed (signature on file) Jaswinder-Gabino Irizarry MD 08/21/23 0838 Normal [facility] EOSINOPHIL, TOTALon 08-14-19 24 Eosinophils (Bld) [#/Vol] 0.0 10*3/uL Normal 0.0-0.4 [facility] Comment on above: Performed By: #### 1 0839-9 #### [facility] ([id number]) [address] [place] [address] RESPIRATORY PANELon 08-14-19 24 ALTERNARIA ALTERNATA <0.10 Normal <0.10 [facility] Comment on above: Result Comment: Clas s 0: Normal Performed By: #### 1 0839-9 #### [facility] ([id number]) [address] [place] [address] ASPERGILLUS FUMIGATUS <0.10 Normal <0.10 [facility] Comment on above: Result Comment: Clas s 0: Normal Performed By: #### 1 0839-9 #### [facility] ([id number]) [address] [place] [address], [place] [address] BERMUDA GRASS <0.10 Normal <0.10 [facility] Comment on above: Result Comment: Clas s 0: Normal Performed By: #### 1 0839-9 #### [facility] ([id number]) [address] [place] [address] [place] [address] BOX ELDER <0.10 Normal <0.10 [facility] Comment on above: Result Comment: Clas s 0: Normal Performed By: #### 1 0839-9 #### [facility] ([id number]) [address] [place] [address] [place] [address] CAT DANDER <0.10 Normal <0.10 [facility] Comment on above: Result Comment: Clas s 0: Normal Performed By: #### 1 0839-9 #### [facility] ([id number]) [address] [place] [address] [place] [address] CLADOSPORIUM HERB <0.10 Normal <0.10 [facility] Comment on above: Result Comment: Clas s 0: Normal Performed By: #### 1 0839-9 #### [facility] ([id number]) [address] [place] [address] [place] [address] COCKLEBUR 0.20 kU/L High <0.10 [facility] Comment on above: Result Comment: Clas s 0/1: Low level of Allergy, ongoing sensitization Performed By: #### 1 0839-9 #### [facility] ([id number]) [address] [place] [address] [place] [address] COCKROACH 0.37 kU/L High <0.10 [facility] Comment on above: Result Comment: Clas s 1:Low level of Allergy, indicative of ongoing sensitization Performed By: #### 1 0839-9 #### [facility] ([id number]) [address] [place] [address], [place] [address] COMMON PIGWEED <0.10 Normal <0.10 [facility] Comment on above: Result Comment: Clas s 0: Normal Performed By: #### 1 0839-9 #### [facility] ([id number]) [address] [place] [address] [place] [address] COMMON RAGWEED <0.10 Normal <0.10 [facility] Comment on above: Result Comment: Clas s 0: Normal Performed By: #### 1 0839-9 #### [facility] ([id number]) [address] [place] [address] COMMON SILVER BIRCH <0.10 Normal <0.10 [facility] Comment on above: Result Comment: Clas s 0: Normal Performed By: #### 1 0839-9 #### [facility] ([id number]) [address] [place] [address] [place] [address] COTTONWOOD <0.10 Normal <0.10 [facility] Comment on above: Result Comment: Clas s 0: Normal Performed By: #### 1 0839-9 #### [facility] ([id number]) [address] [place] [address] [place] [address] DERMATOPH FARINAE 0.77 kU/L High <0.10 [facility] Comment on above: Result Comment: Clas s 2:Moderate level of Allergy, indicative of stronger ongoing sensitization Performed By: #### 1 0839-9 #### [facility] ([id number]) [address] [place] [address] [place] [address] DERMATOPH PTERONYSS 0.87 kU/L High <0.10 [facility] Comment on above: Result Comment: Clas s 2:Moderate level of Allergy, indicative of stronger ongoing sensitization Performed By: #### 1 0839-9 #### [facility] ([id number]) [address] [place] [address] [place] [address] DOG DANDER <0.10 Normal <0.10 [facility] Comment on above: Result Comment: Clas s 0: Normal Performed By: #### 1 0839-9 #### [facility] ([id number]) [address] [place] [address] [place] [address] ELM <0.10 Normal <0.10 [facility] Comment on above: Result Comment: Clas s 0: Normal Performed By: #### 1 0839-9 #### [facility] ([id number]) [address] [place] [address] [place] [address] GOOSEFOOT MICHAEL QTR <0.10 Normal <0.10 [facility] Comment on above: Result Comment: Clas s 0: Normal Performed By: #### 1 0839-9 #### [facility] ([id number]) [address] [place] [address] [place] [address] IGE 262 IU/mL High 0-165 [facility] Comment on above: Performed By: #### 1 0839-9 #### [facility] ([id number]) [address] [place] [address], [place] [address] JANET GRASS <0.10 Normal <0.10 [facility] Comment on above: Result Comment: Clas s 0: Normal Performed By: #### 1 0839-9 #### [facility] ([id number]) [address] [place] [address], [place] [address] MAPLE LEAF SYCAMORE <0.10 Normal <0.10 [facility] Comment on above: Result Comment: Clas s 0: Normal Performed By: #### 1 0839-9 #### [facility] ([id number]) [address] [place] [address], [place] [address] [place] KAYKAY <0.10 Normal <0.10 [facility] Comment on above: Result Comment: Clas s 0: Normal Performed By: #### 1 0839-9 #### [facility] ([id number]) [address] [place] [address], [place] [address] MOUNTAIN JUNIPER <0.10 Normal <0.10 [facility] Comment on above: Result Comment: Clas s 0: Normal Performed By: #### 1 0839-9 #### [facility] ([id number]) [address] [place] [address], [place] [address] MOUSE URINE PROTEINS <0.10 Normal <0.10 [facility] Comment on above: Result Comment: Clas s 0: Normal Performed By: #### 1 0839-9 #### [facility] ([id number]) [address] [place] [address] [place] [address] MUGWORT <0.10 Normal <0.10 [facility] Comment on above: Result Comment: Clas s 0: Normal Performed By: #### 1 0839-9 #### [facility] ([id number]) [address] [place] [address] [place] [address] MULBERRY TREE <0.10 Normal <0.10 [facility] Comment on above: Result Comment: Clas s 0: Normal Performed By: #### 1 0839-9 #### [facility] ([id number]) [address] [place] [address] [place] [address] NETTLE <0.10 Normal <0.10 [facility] Comment on above: Result Comment: Clas s 0: Normal Performed By: #### 1 0839-9 #### [facility] ([id number]) [address] [place] [address] [place] [address] OAK <0.10 Normal <0.10 [facility] Comment on above: Result Comment: Clas s 0: Normal Performed By: #### 1 0839-9 #### [facility] ([id number]) [address] [place] [address], [place] [address] PECAN HICKORY TREE <0.10 Normal <0.10 [facility] Comment on above: Result Comment: Clas s 0: Normal Performed By: #### 1 0839-9 #### [facility] ([id number]) [address] [place] [address] [place] [address] PENICILLIUM CHRYSOGENUM <0.10 Normal <0.10 [facility] Comment on above: Result Comment: Clas s 0: Normal Performed By: #### 1 0839-9 #### [facility] ([id number]) [address] [place] [address] [place] [address] ROUGH MARSHELDER 0.12 kU/L High <0.10 [facility] Comment on above: Result Comment: Clas s 0/1: Low level of Allergy, ongoing sensitization Performed By: #### 1 0839-9 #### [facility] ([id number]) [address] [place] [address] [place] [address] S[place]WORT ANIL THISTLE <0.10 Normal <0.10 [facility] Comment on above: Result Comment: Clas s 0: Normal Performed By: #### 1 0839-9 #### [facility] ([id number]) [address] [place] [address] [place] [address] SHEEP SORREL <0.10 Normal <0.10 [facility] Comment on above: Result Comment: Clas s 0: Normal Performed By: #### 1 0839-9 #### [facility] ([id number]) [address] [place] [address] [place] [address] EDI <0.10 Normal <0.10 [facility] Comment on above: Result Comment: Clas s 0: Normal Performed By: #### 1 0839-9 #### [facility] ([id number]) [address] [place] [address] [place] [address] WALNUT TREE POLLEN <0.10 Normal <0.10 [facility] Comment on above: Result Comment: Clas s 0: Normal Performed By: #### 1 0839-9 #### [facility] ([id number]) [address] [place] [address] WHITE JARED <0.10 Normal <0.10 [facility] Comment on above: Result Comment: Clas s 0: Normal Performed By: #### 1 0839-9 #### [facility] ([id number]) [address] [place] [address] CBC AND AUTO DIFFon 07-26-19 24 ABSOLUTE BASOPHIL 0.0 X10E9/L Normal 0.0-0.2 [facility] Comment on above: Performed By: #### C KINDRA, 44249-7, 4485-9, 4498-2, [facility], 1987-08 ####[facility] ([id number])[address] [address] ABSOLUTE NEUTROPHIL 7.7 X10E9/L High 1.5-6.6 [facility] Comment on above: Performed By: #### Nataliia ARGUELLES, 33758-0, 5-9, [facility]-2, [facility], 1987-08 ####[facility] ([id number])[address], [address], [place] [address] Basophils/100 WBC (Bld) 0.2 % Normal [facility] Comment on above: Performed By: #### Nataliia BCA, 12780-7, 4485-9, 4498-2, [facility], 1987-08 ####[facility] ([id number])[address], [place] [address] Eosinophils (Bld) [#/Vol] 0.0 10*3/uL Normal 0.0-0.4 [facility] Comment on above: Performed By: #### Nataliia ARGUELLES, 07990-2, 4485-9, 449-2, [facility], 1987-08 ####[facility] ([id number])[address] [address] Eosinophils/100 WBC (Bld) 0.0 % Normal [facility] Comment on above: Performed By: #### Nataliia ARGUELLES, 00076-6, 4485-9, 4498-2, [facility], 1987-08 ####[facility] ([id number])[address] [address] Erythrocyte distribution width (RBC) [Ratio] 14.9 % Normal 11.5-15.0 [facility] Comment on above: Performed By: #### Nataliia ARGUELLES, 56615-9, [facility]5-9, [facility]-2, [facility], 1987-08 ####[facility] ([id number])[address] [address] Hematocrit (Bld) [Volume fraction] 37.7 % Normal 35-47 [facility] Comment on above: Performed By: #### Nataliia ARGUELLES, 00607-8, 4485-9, [facility]-2, [facility], 1987-08 ####[facility] ([id number])[address] [address] Hemoglobin (Bld) [Mass/Vol] 13.0 g/dL Normal 11.7-15.5 [facility] Comment on above: Performed By: #### Nataliia ARGUELLES, 50061-5, [facility]5-9, [facility]-2, [facility], 1987-08 ####[facility] ([id number])[address] [address] Lymphocytes (Bld) [#/Vol] 0.5 10*3/uL Low 1.0-3.5 [facility] Comment on above: Performed By: #### Nataliia ARGUELLES, 60993-2, 4485-9, 4498-2, [facility], 1987-08 ####[facility] ([id number])[address] [address] Lymphocytes/100 WBC (Bld) 6.2 % Normal [facility] Comment on above: Performed By: #### C KINDRA, 52054-8, 4485-9, 4498-2, [facility], 1987-08 ####[facility] ([id number])[address], [address] [place] [address] MCH (RBC) [Entitic mass] 31.4 pg Normal 27-34 [facility] Comment on above: Performed By: #### C KINDRA, 20688-5, 4485-9, [facility]-2, [facility], 1987-08 ####[facility] ([id number])[address], [address] [place] [address] MCHC (RBC) [Mass/Vol] 34.5 g/dL Normal 32-36 [facility] Comment on above: Performed By: #### Nataliia ARGUELLES, 72882-0, [facility]-9, [facility]-2, [facility], 1987-08 ####[facility] ([id number])[address], [address] [place] [address] MCV (RBC) [Entitic vol] 91 fL Normal 80-100 [facility] Comment on above: Performed By: #### Nataliia ARGUELLES, 51365-4, [facility]-9, 4497-2, [facility], 1987-08 ####[facility] ([id number])[address], [address] [place] [address] Monocytes (Bld) [#/Vol] 0.3 10*3/uL Normal 0-0.9 [facility] Comment on above: Performed By: #### Nataliia ARGUELLES, 01755-8, 4485-9, [facility]-2, [facility], 1987-08 ####[facility] ([id number])[address] [address] [place] [address] Monocytes/100 WBC (Bld) 3.2 % Normal [facility] Comment on above: Performed By: #### C BCA, 52713-6, 4485-9, 4498-2, CMP, 1987-08 ####[facility] ([id number])[address] [address] [place] [address] Neutrophils/100 WBC (Bld) 90.4 % Normal [facility] Comment on above: Performed By: #### Nataliia ARGUELLES, 90112-1, 4485-9, 4498-2, CMP, 1987-08 ####[facility] ([id number])[address] [address] [place] [address] Platelet mean volume (Bld) [Entitic vol] 8.0 fL Normal 7-12 [facility] Comment on above: Performed By: #### Nataliia ARGUELLES, 98011-0, 4485-9, 4498-2, CMP, 1987-08 ####[facility] ([id number])[address] [address] [place] [address] Platelets (Bld) [#/Vol] 266 10*3/uL Normal 150-450 [facility] Comment on above: Performed By: #### Nataliia ARGUELLES, 07814-6, 4485-9, 4498-2, CMP, 1987-08 ####[facility] ([id number])[address] [address], [place] [address] RBC COUNT 4.14 X10E12/L Normal 3.80-5.20 [facility] Comment on above: Performed By: #### Nataliia BCA, 03714-9, 4485-9, 4498-2, CMP, 1987-08 ####[facility] ([id number])[address] [address] WBC (Bld) [#/Vol] 8.5 10*3/uL Normal 4.0-11.0 [facility] Comment on above: Performed By: #### Nataliia BCA, 07200-9, 4485-9, 4498-2, CMP, 1987-08 ####[facility] ([id number])[address] [facility], [address] [place] [address] CCL GENERIC ORDERon 07-26-19 TEST NAME KAVIN ROMAN Normal [facility] Comment on above: Performed By: #### 1 0839-9 #### [facility] ([id number]) [address] [place] [address] TEST RESULT See Below Normal [facility] Comment on above: Result Comment: NOTE TEST RESULT FLAG UNIT REF.RANGE ----- Crithidia lucillae Negative Negative Crithidia luciliae assay is used as an aid in diagnosis of systemic lupus erythematosus (SLE). A negative result cannot rule out SLE. Low positive titers may be seen with other systemic autoimmune diseases. Clinical correlation is required. CRITHIDIA LUCILIAE Test Performed By: [facility] [address] [place] [address] Retail Pharmacy Manager: Peace Calloway III #[id number] Performed By: #### 1 0839-9 #### [facility] ([id number]) [address] [place] [address] COMPREHENSIVE METABOLIC PANE [facility] 07-26-2023 Albumin [Mass/Vol] 3.9 g/dL Normal 3.2-5.3 [facility] Comment on above: Performed By: #### 1 0839-9 #### [facility] ([id number]) [address] [place] [address] ALP [Catalytic activity/Vol] 47 U/L Normal 39-130 [facility] Comment on above: Performed By: #### 1 0839-9 #### [facility] ([id number]) [address] [place] [address] [place] [address] ALT [Catalytic activity/Vol] 10 U/L Normal 0-31 [facility] Comment on above: Performed By: #### 1 0839-9 #### [facility] ([id number]) [address] [place] [address] Anion gap [Moles/Vol] 10 mmol/L Normal 5-15 [facility] Comment on above: Performed By: #### 1 0839-9 #### [facility] ([id number]) [address] [place] [address]60 AST [Catalytic activity/Vol] 11 U/L Normal 0-41 [facility] Comment on above: Performed By: #### 1 0839-9 #### [facility] ([id number]) [address] [place] [address] Bilirubin [Mass/Vol] 0.5 mg/dL Normal 0.3-1.2 [facility] Comment on above: Performed By: #### 1 0839-9 #### [facility] ([id number]) [address] [place] [address] Calcium [Mass/Vol] 8.9 mg/dL Normal 8.5-10.5 [facility] Comment on above: Performed By: #### 1 0839-9 #### [facility] ([id number]) [address] [place] [address] 53784 Chloride [Moles/Vol] 100 mmol/L Normal 98-109 [facility] Comment on above: Performed By: #### 1 0839-9 #### [facility] ([id number]) [address] [place] [address] 03876 CO2 [Moles/Vol] 31 mmol/L Normal 22-32 [facility] Comment on above: Performed By: #### 1 0839-9 #### [facility] ([id number]) [address] [place] [address] 59724 Creatinine [Mass/Vol] 1.57 mg/dL High 0.40-1.00 [facility] Comment on above: Result Comment: METH OD TRACEABLE TO IDMS STANDARD Performed By: #### 1 0839-9 #### [facility] ([id number]) [address] [place] [address] 81014 GFR/1.73 sq M.predicted among non-blacks MDRD (S/P/Bld) [Vol rate/Area] 45 mL/min/{1.73_m2} Low >59 [facility] Comment on above: Result Comment: Reported eGFR is based on the CKD-EPI 2020 equation that does not use a race coefficient. Performed By: #### 1 0839-9 #### [facility] ([id number]) [address] [place] [address] 18525 Glucose [Mass/Vol] 135 mg/dL High 65-99 [facility] Comment on above: Performed By: #### 1 0839-9 #### [facility] [facility] ([id number]) [address] [place] [address] 22902 Potassium [Moles/Vol] 3.4 mmol/L Low 3.5-5.0 [facility] Comment on above: Performed By: #### 1 0839-9 #### [facility] ([id number]) [address] [place] [address] 24964 Protein [Mass/Vol] 6.5 g/dL Normal 6.0-8.0 [facility] Comment on above: Performed By: #### 1 0839-9 #### [facility] ([id number]) [address] [place] [address] 31995 Sodium [Moles/Vol] 141 mmol/L Normal 134-146 [facility] Comment on above: Performed By: #### 1 0839-9 #### [facility] ([id number]) [address] [place] [address] 63378 Urea nitrogen [Mass/Vol] 34 mg/dL High 5-23 [facility] Comment on above: Performed By: #### 1 0839-9 #### [facility] ([id number]) [address] [place] [address] 98087 CRP [Mass/Vol]on 07-26-2023 C REACTIVE PROTEIN 0.4 mg/dL Normal 0.000-0.744 [facility] Comment on above: Performed By: #### 1 0839-9 #### [facility] ([id number]) [address] [place] [address] 11349 Complement C3 [Mass/Vol]on 0 07-26-2023 COMPLEMENT C3 140 mg/dL Normal 86-184 [facility] Comment on above: Performed By: #### C KINDRA, 09523-1, 4485-9, 4498-2, [facility], 1986-08 ####[facility] ([id number])[address], [address] [place] [address] Complement C4 [Mass/Vol]on 0 07-26-2023 COMPLEMENT C4 29 mg/dL Normal 16-47 [facility] Comment on above: Performed By: #### 1 0839-9 #### [facility] ([id number]) [address] [place] [address] 29786 ESR Photometric method (Bld) [Velocity]on 07-26-2023 ESR, ERYTHROCYTE SEDIMENTATION RATE 3 mm/h Normal 0-20 [facility] Comment on above: Performed By: #### Nataliia ARGUELLES, 02709-6, 4485-9, 4498-2, [facility], 1986-08 ####[facility] ([id number])[address], [place] [address] Laboratory comment Francisco (Repo rt)on 07-26-2023 UNLISTED LAB TEST Sent to reference lab Normal [facility] Comment on above: Performed By: #### 1 0839-9 #### [facility] ([id number]) [address] [place] [address] 13406 PROTEIN CREAT RATIOon 2023 RANDOM URINE PROTEIN 480 mg/L High <120 [facility] Comment on above: Performed By: #### 1 0839-9 #### [facility] ([id number]) [address] [place] [address] 88164 U/PRO/PLUG CUTTING MACHINE OPERATOR RATIO CALC 1.13 High <0.2 [facility] Comment on above: Result Comment: Neph rotic Syndrome is associated with ratios >3.5 Performed By: #### 1 0839-9 #### [facility] ([id number]) [address] [place] [address] 80713 URINE CREATININE,RDM 42.43 mg/dL Normal [facility] Comment on above: Performed By: #### 1 0839-9 #### [facility] ([id number]) [address] [place] [address] 59557 URINALYSISon 07-26-2023 Bilirubin Ql (U) Negative Normal NEG [facility] BLOOD/HGB Large Abnormal NEG [facility] Color (U) YELLOW Normal YELLOW [facility] Glucose Ql (U) Negative Normal NEG [facility] Hyaline casts LM Ql (Urine sed) 1 /lpf Normal 0-2 [facility] Ketones Ql (U) Negative Normal NEG [facility] Leukocyte esterase Test strip Ql (U) Negative Normal NEG [facility] MUCOUS PRESENT Abnormal NONE [facility] Nitrite Ql (U) Negative Normal NEG [facility] pH (U) 6.0 [pH] Normal 5.0-8.5 [facility] Protein Ql (U) 50 mg/dL Abnormal NEG [facility] R.B.CELLS 48 /hpf High 0-5 [facility] Specific gravity (U) [Rel density] 1.009 Normal 1.003-1.035 [facility] SQUAMOUS EPITHELIUM 4 /hpf Normal 0-5 [facility] TURBIDITY CLEAR Normal CLEAR [facility] Urobilinogen (U) [Mass/Vol] mg/dL Normal <1.1 [facility] W.B.CELLS 2 /hpf Normal 0-5 [facility] MR BRAIN WO CONTon 4 MR BRAIN [...] Terrazas MD on 07/23/2023 10:13 AM Normal [facility] Orders Onlyon 07-18-2023 Orders Only [id number] Blanca Rudolph 1990 F Date Provider Department Center 07/18/2023 Jason-ORIN [facility]CO [facility] Family History Problem Relation Age of Onset Hypertension Mother Hypertension Mother's Sister Crohn's disease Mother's Sister Hypertension Maternal Grandmother Breast cancer Maternal Grandmother Kidney disease Other Migraines Other Family Status - Relation Status Age at Mother Mother's Sister Maternal Grandmother Other Normal [facility] SARS/FLU A+B/RSV by NAAT/Mol ecularon 07-15-2023 SARS/FLU [...] operators who are performing tests using either [employer] or [employer] systems and is limited to laboratories that [...] repeat. Fact Sheet for Healthcare Providers: https://www.fda.gov/me fariha/840783/download Fact Sheet for Patients: https://www.fda.gov/me fariha/827623/download Normal [facility] Comment on above: Performed By: #### C OVFLR ####[facility] ([id number])715 [facility], [place] [address] Orders Onlyon 07-10-2023 Orders Only [id number] RonniBlanca 1990 F Date Provider Department Center 07/10/2023 HardikJEFFERY WETZEL [facility] Family History Problem Relation Age of Onset Hypertension Mother Hypertension Mother's Sister Crohn's disease Mother's Sister Hypertension Maternal Grandmother Breast cancer Maternal Grandmother Kidney disease Other Migraines Other Family Status - Relation Status Age at Mother Mother's Sister Maternal Grandmother Other Normal [facility] CBC WITH AUTO DIFFERENTIALon 07-06-2023 Basophils (Bld) [#/Vol] 0.02 10*3/uL Normal 0.00-0.20 [facility] Comment on above: Performed By: #### L [id number] #### [facility] (BEAKER) [address] [place] [address] Basophils/100 WBC (Bld) 0.2 % Normal 0.0-1.0 [facility] Comment on above: Performed By: #### L [id number] #### [facility] (BEAKER) [address] [place] [address] Eosinophils (Bld) [#/Vol] 0.00 10*3/uL Normal 0.00-0.50 [facility] Comment on above: Performed By: #### L [id number] #### [facility] (BEAKER) [address] [place] [address] Eosinophils/100 WBC (Bld) 0.0 % Normal 0.0-6.0 [facility] Comment on above: Performed By: #### L [id number] #### [facility] (BEAKER) [address] [place] [address] Erythrocyte distribution width (RBC) [Ratio] 13.7 % Normal 11.5-15.0 [facility] Comment on above: Performed By: #### L [id number] #### [facility] (BEAKER) [address] [place] [address] ERYTHROCYTE MEAN CORPUSCULAR HEMOGLOBIN CONCENTRATION (G/DL) BY AUTOMATED 35.1 g/dL High 32.0-35.0 [facility] Comment on above: Performed By: #### L [id number] #### [facility] (BEAKER) [address] [place] [address] Hematocrit (Bld) [Volume fraction] 37.0 % Normal 36.0-48.0 [facility] Comment on above: Performed By: #### L [id number] #### [facility] (BEAKER) [address] [place] [address] Hemoglobin (Bld) [Mass/Vol] 13.0 g/dL Normal 12.0-15.0 [facility] Comment on above: Performed By: #### L [id number] #### [facility] ([facility] [address] [place] [address] Immature granulocytes (Bld) [#/Vol] 0.05 10*3/uL Normal 0.00-0.20 [facility] Comment on above: Performed By: #### L [id number] #### [facility] (BEAKER) [address] [place] [address] Immature granulocytes/100 WBC (Bld) 0.4 % Normal 0.0-1.0 [facility] Comment on above: Performed By: #### L [id number] #### [facility] (BEAKER) [address] [place] [address] Lymphocytes (Bld) [#/Vol] 0.90 10*3/uL Low 1.20-4.00 [facility] Comment on above: Performed By: #### L [id number] #### [facility] (BEAKER) [address] [place] [address] Lymphocytes/100 WBC (Bld) 8.0 % Low 20.0-45.0 [facility] Comment on above: Performed By: #### L [id number] #### [facility] (BEAKER) [address] [place] [address] MCH (RBC) [Entitic mass] 30.6 pg Normal 27.0-33.0 [facility] Comment on above: Performed By: #### L [id number] #### [facility] ([facility]) [address] [place] [address] MCV (RBC) [Entitic vol] 87.1 fL Normal 82.0-98.0 [facility] Comment on above: Performed By: #### L [id number] #### [facility] ([facility]) [address] [place] [address] Monocytes (Bld) [#/Vol] 0.37 10*3/uL Normal 0.10-1.00 [facility] Comment on above: Performed By: #### L [id number] #### [facility] ([facility]) [address] [place] [address] Monocytes/100 WBC (Bld) 3.3 % Low 5.0-12.0 [facility] Comment on above: Performed By: #### L [id number] #### [facility] ([facility]) [address] [place] [address] Neutrophils (Bld) [#/Vol] 9.95 10*3/uL High 1.60-7.60 [facility] Comment on above: Performed By: #### L [id number] #### [facility] ([facility]) [address] [place] [address] Neutrophils/100 WBC (Bld) 88.1 % High 40.0-72.0 [facility] Comment on above: Performed By: #### L [id number] #### [facility] ([facility]) [address] [place] [address] NRBC (PER 100 WBCS) BY AUTOMATED COUNT 0.0 % Normal 0 [facility] Comment on above: Performed By: #### L [id number] #### [facility] (BEAKER) [address] [place] [address] PLATELETS (10*3/UL) IN BLOOD AUTOMATED COUNT 318 10*3/uL Normal 150-400 [facility] Comment on above: Performed By: #### L [id number] #### [facility] ([facility]) [address] [place] [address] RBC (Bld) [#/Vol] 4.25 10*6/uL Normal 3.80-5.00 [facility] Comment on above: Performed By: #### L [id number] #### [facility] ([facility]) [address] [place] [address] WBC (Bld) [#/Vol] 11.29 10*3/uL High 4.00-10.60 [facility] Comment on above: Performed By: #### L [id number] #### [facility] ([facility]) [address] [place] [address] CHLAMYDIA TRACHOMATIS AND NE ISSERIA GONORRHEA, TMAon 07-06-2023 CHLAMYDIA TRACHOMATIS DNA PROBE (PRESENCE) IN UNSP SPEC Negative Normal Negative [facility] Comment on above: Result Comment: No C hlamydia trachomatis rRNA Detected. The Aptima Combo 2 Assay is a FDA approved target amplification nucleic acid probe test that utilizes target capture for the in vitro qualitative detection and differentiation of ribosomal RNA (rRNA) from Chlamydia trachomatis (CT) and/or Neisseria gonorrhoeae (GC) to aid the diagnosis of chlamydial and/or gonococcal urogenital disease using the [employer] System. The Aptima Combo 2 Assay involves target capture, target amplification by Demolition Hammer Operator-Mediated Amplification (TMA), and the detection of the amplification products (amplicon) by the Hybridization Protection Assay (HPA). The internal process controls of the [employer] System monitor the target capture, amplification, and detection steps of the assay, this is not intended to control for sampling adequacy. Performed By: #### L [id number] ####[facility] ([facility])[address] [place] [address] NEISSERIA GONORRHOEAE DNA PROBE (PRESENCE) IN UNSP SPEC Negative Normal Negative [facility] Comment on above: Result Comment: No N eisseria gonorrhoeae rRNA Detected. The Aptima Combo 2 Assay is a FDA approved target amplification nucleic acid probe test that utilizes target capture for the in vitro qualitative detection and differentiation of ribosomal RNA (rRNA) from Chlamydia trachomatis (CT) and/or Neisseria gonorrhoeae (GC) to aid the diagnosis of chlamydial and/or gonococcal urogenital disease using the [employer] System. The Aptima Combo 2 Assay involves target capture, target amplification by Demolition Hammer Operator-Mediated Amplification (TMA), and the detection of the amplification products (amplicon) by the Hybridization Protection Assay (HPA). The internal process controls of the [employer] System monitor the target capture, amplification, and detection steps of the assay, this is not intended to control for sampling adequacy. Performed By: #### L [id number] ####[facility] ([facility])[address] [facility] [place] [address] COMPREHENSIVE METABOLIC PANE Gerardo 07-06-2023 Albumin [Mass/Vol] 4.3 g/dL Normal 3.5-5.7 [facility] Comment on above: Performed By: #### L [id number] #### [facility] ([facility]) [address] [place] [address] ALP [Catalytic activity/Vol] 46 U/L Normal 34-104 [facility] Comment on above: Performed By: #### L [id number] #### [facility] ([facility]) [address] [place] [address] ALT [Catalytic activity/Vol] 10 U/L Normal 7-52 [facility] Comment on above: Performed By: #### L [id number] #### [facility] ([facility]) [address] [place] [address] Anion gap [Moles/Vol] 14 mmol/L Normal 7-20 [facility] Comment on above: Performed By: #### L [id number] #### [facility] ([facility]) [address] [place] [address] AST [Catalytic activity/Vol] 10 U/L Low 13-39 [facility] Comment on above: Performed By: #### L [id number] #### [facility] ([facility]) [address] [place] [address] Bilirubin [Mass/Vol] 0.5 mg/dL Normal 0.3-1.0 [facility] Comment on above: Performed By: #### L [id number] #### [facility] ([facility]) [address] [place] [address] Calcium [Mass/Vol] 9.1 mg/dL Normal 8.6-10.3 [facility] Comment on above: Performed By: #### L [id number] #### [facility] ([facility]) [address] [place] [address] Chloride [Moles/Vol] 98 mmol/L Normal 98-107 [facility] Comment on above: Performed By: #### L [id number] #### [facility] ([facility]) [address] [place] [address] CO2 [Moles/Vol] 28 mmol/L Normal 21-31 [facility] Comment on above: Performed By: #### L [id number] #### [facility] ([facility]) [address] [place] [address] Creatinine [Mass/Vol] 1.68 mg/dL High 0.60-1.20 [facility] Comment on above: Performed By: #### L [id number] #### [facility] ([facility]) [address] [place] [address] GLOMERULAR FILTRATION RATE ML/MIN/1.73 SQ M.PREDICTED 41.4 mL/min/1.73m*2 Low >60.0 [facility] Comment on above: Result Comment: The [facility]???s estimated glomerular filtration rate (eGFR) will no [...] individuals. Performed By: #### L [id number] #### [facility] ([facility]) [address] [place] [address] Glucose [Mass/Vol] 124 mg/dL High 70-100 [facility] Comment on above: Performed By: #### L [id number] #### [facility] ([facility]) [address] [place] [address] Potassium [Moles/Vol] 4.3 mmol/L Normal 3.5-5.1 [facility] Comment on above: Performed By: #### L [id number] #### [facility] ([facility]) [address] [place] [address] Protein [Mass/Vol] 6.9 g/dL Normal 6.0-8.3 [facility] Comment on above: Performed By: #### L [id number] #### [facility] ([facility]) [address] [place] [address] Sodium [Moles/Vol] 136 mmol/L Normal 136-145 [facility] Comment on above: Performed By: #### L [id number] #### [facility] ([facility]) [address] [place] [address] Urea nitrogen [Mass/Vol] 37 mg/dL High 7-25 [facility] Comment on above: Performed By: #### L [id number] #### [facility] ([facility]) [address] [place] [address] UREA NITROGEN/CREATININE (MASS RATIO) IN SER/PLAS 22.0 Normal [facility] Comment on above: Performed By: #### L [id number] #### [facility] ([facility]) [address] [place] [address] HIV COMBO 4Gon 07-06-2023 HIV COMBO 4G Negative Normal Negative [facility] Comment on above: Performed By: #### L [id number] #### [facility] ([facility]) [address] [place] [address] Labon 07-06-2023 Lab [id number] Blanca Rudolph 1990 F Date Provider Department Center 07/06/2023 2243-[facility] RESOURCE [facility] Family History Problem Relation Age of Onset Hypertension Mother Hypertension Mother's Sister Crohn's disease Mother's Sister Hypertension Maternal Grandmother Breast cancer Maternal Grandmother Kidney disease Other Migraines Other Family Status - Relation Status Age at Mother Mother's Sister Maternal Grandmother Other Normal [facility] Office Visiton 07-06-2023 Follow-up visit [id number] Blanca Rudolph 1990 F Date Provider Department Center 07/06/2023 111-[facility] Family History Problem Relation Age of Onset Hypertension Mother Hypertension Mother's Sister Crohn's disease Mother's Sister Hypertension Maternal Grandmother Breast cancer Maternal Grandmother Kidney disease Other Migraines Other Family Status - Relation Status Age at Mother Mother's Sister Maternal Grandmother Other Level of Service:34781 GA OFFICE/OUTPATIENT ESTABLISHED MOD MDM 30 MIN Reason for Visit and Comments: Health Maintenance [619] Exposure to HIV [Other] Normal [facility] RPRon 07-06-2023 REAGIN AB PRESENCE IN SERUM BY RPR Reactive Abnormal Nonreactive [facility] Comment on above: Performed By: #### L [id number] #### [facility] (BEAKER) [address] [place] [address] RPR QUANTITATIVEon RPR QUANT 1:16 High <1:1 [facility] Comment on above: Result Comment: The syphilis screen is a treponemal assay; patients with previously treated syphilis could be reactive on this assay, but nonreactive on the RPR Quant assay. Performed By: #### L [id number] #### [facility] (BEAKER) [address] [place] [address] URINALYSISon 07-06-2023 BILIRUBIN, TOTAL PRESENCE IN URINE Negative Normal Negative [facility] Comment on above: Performed By: #### L [id number] #### [facility] (BEAKER) [address] [place] [address] Clarity (U) Slightly Cloudy Abnormal [facility] Comment on above: Performed By: #### L [id number] #### [facility] ([facility]) [address] [place] [address] Color (U) Yellow Normal Yellow [facility] Comment on above: Performed By: #### L [id number] #### [facility] ([facility]) [address] [place] [address] Glucose (U) [Mass/Vol] Negative Normal Negative [facility] Comment on above: Performed By: #### L [id number] #### [facility] ([facility]) [address] [place] [address] HEMOGLOBIN PRESENCE IN URINE Large Abnormal Negative [facility] Comment on above: Performed By: #### L [id number] #### [facility] ([facility]) [address] [place] [address] Ketones Ql (U) Negative Normal Negative [facility] Comment on above: Performed By: #### L [id number] #### [facility] ([facility]) [address] [place] [address] LEUKOCYTE ESTERASE PRESENCE IN URINE BY TEST STRIP Small Abnormal Negative [facility] Comment on above: Performed By: #### L [id number] #### [facility] ([facility]) [address] [place] [address] NITRITE PRESENCE IN URINE Negative Normal Negative [facility] Comment on above: Performed By: #### L [id number] #### [facility] ([facility] [address] [place] [address] pH (U) 5.0 [pH] Normal 5.0-8.0 [facility] Comment on above: Performed By: #### L [id number] #### [facility] (BEAKER) [address] [place] [address] Protein (U) [Mass/Vol] 100 mg/dL Abnormal Negative [facility] Comment on above: Performed By: #### L [id number] #### [facility] ([facility]) [address] [place] [address] Specific gravity (U) [Rel density] 1.011 Low 1.015-1.020 [facility] Comment on above: Performed By: #### L [id number] #### [facility] ([facility]) [address] [place] [address] URINALYSIS MICROSCOPICon CASTS IN URINE Normal [facility] Comment on above: Performed By: #### L [id number] ####[facility] ([facility])[address] [place] [address] CRYSTALS IN URINE Normal [facility] Comment on above: Performed By: #### L [id number] ####[facility] ([facility])[address] [place] [address] RBC (#/HPF) IN URINE SEDIMENT >100 Abnormal None Seen [facility] Comment on above: Performed By: #### L [id number] ####[facility] ([facility])[address] [place] [address] SQUAMOUS EPITHELIAL CELLS (#/HPF) IN URINE SEDIMENT Many Abnormal None Seen, Occasional [facility] Comment on above: Performed By: #### L [id number] ####[facility] ([facility])[address] [place] [address] WBC (LEUKOCYTE) (#/HPF) IN URINE SEDIMENT 6-10 Abnormal None Seen [facility] Comment on above: Performed By: #### L [id number] ####[facility] ([facility])[address] [place] [address] CBC AND AUTO DIFFon 06-28-19 24 ABSOLUTE BASOPHIL 0.0 X10E9/L Normal 0.0-0.2 [facility] Comment on above: Performed By: #### C BCA, CMP, 27111-4, 10828-4 #### [facility] ([id number]) [address] [place] [address], [place] [address] ABSOLUTE NEUTROPHIL 7.7 X10E9/L High 1.5-6.6 [facility] Comment on above: Performed By: #### C KINDRA, CMP, 15169-1, 74536-3 #### [facility] ([id number]) [address] [place] [address] 43499 Basophils/100 WBC (Bld) 0.3 % Normal [facility] Comment on above: Performed By: #### Nataliia ARGUELLES, CMP, 22126-7, 82447-0 #### [facility] ([id number]) [address] [place] [address] 31815 Eosinophils (Bld) [#/Vol] 0.0 10*3/uL Normal 0.0-0.4 [facility] Comment on above: Performed By: #### Nataliia ARGUELLES, CMP, 05920-3, 61386-0 #### [facility] ([id number]) [address] [place] [address] 92671 Eosinophils/100 WBC (Bld) 0.4 % Normal [facility] Comment on above: Performed By: #### Nataliia ARGUELLES, CORINA, 31750-4, 29337-5 #### [facility] ([id number]) [address] [place] [address] 39057 Erythrocyte distribution width (RBC) [Ratio] 14.8 % Normal 11.5-15.0 [facility] Comment on above: Performed By: #### Nataliia ARGUELLES CMP, 18752-3, 49743-2 #### [facility] ([id number]) [address] [place] [address] 66503 Hematocrit (Bld) [Volume fraction] 36.5 % Normal 35-47 [facility] Comment on above: Performed By: #### Nataliia ARGUELLES, CMP, 27935-8, 02384-7 #### [facility] ([id number]) [address] [place] [address] 03450 Hemoglobin (Bld) [Mass/Vol] 12.5 g/dL Normal 11.7-15.5 [facility] Comment on above: Performed By: #### C CORINA ARGUELLES, 00022-3, 72665-6 #### [facility] ([id number]) [address] [place] [address] 70263 Lymphocytes (Bld) [#/Vol] 0.8 10*3/uL Low 1.0-3.5 [facility] Comment on above: Performed By: #### Nataliia ARGUELLES CMP, 45647-0, 92160-8 #### [facility] ([id number]) [address] [place] [address] 98610 Lymphocytes/100 WBC (Bld) 9.4 % Normal [facility] Comment on above: Performed By: #### Nataliia ARGUELLES CMP, 86680-6, 78644-4 #### [facility] ([id number]) [address] [place] [address] 90409 MCH (RBC) [Entitic mass] 30.4 pg Normal 27-34 [facility] Comment on above: Performed By: #### C CORINA ARGUELLES, 81164-5, 88535-2 #### [facility] ([id number]) [address] [place] [address] 18175 MCHC (RBC) [Mass/Vol] 34.3 g/dL Normal 32-36 [facility] Comment on above: Performed By: #### Nataliia ARGUELLES CMP, 21731-5, 20114-5 #### [facility] ([id number]) [address] [place] [address] 39311 MCV (RBC) [Entitic vol] 89 fL Normal 80-100 [facility] Comment on above: Performed By: #### Nataliia ARGUELLES CMP, 82477-8, 77251-1 #### [facility] ([id number]) [address] [place] [address] 93851 Monocytes (Bld) [#/Vol] 0.4 10*3/uL Normal 0-0.9 [facility] Comment on above: Performed By: #### C KINDRA, CMP, 75865-5, 08122-1 #### [facility] ([id number]) [address] [place] [address] 04099 Monocytes/100 WBC (Bld) 4.3 % Normal [facility] Comment on above: Performed By: #### C BCA, CMP, 38915-1, 18479-3 #### [facility] ([id number]) [address] [place] [address] 41339 Neutrophils/100 WBC (Bld) 85.6 % Normal [facility] Comment on above: Performed By: #### Nataliia ARGUELLES, CMP, 95859-1, 89250-4 #### [facility] ([id number]) [address] [place] [address] 69768 Platelet mean volume (Bld) [Entitic vol] 7.7 fL Normal 7-12 [facility] Comment on above: Performed By: #### C KINDRA, CMP, 12494-9, 55453-8 #### [facility] ([id number]) [address] [place] [address] 61434 Platelets (Bld) [#/Vol] 277 10*3/uL Normal 150-450 [facility] Comment on above: Performed By: #### Nataliia ARGUELLES, CMP, 90547-4, 56734-4 #### [facility] ([id number]) [address] [place] [address] 27478 RBC COUNT 4.12 X10E12/L Normal 3.80-5.20 [facility] Comment on above: Performed By: #### C BCA, CMP, 14772-7, 95157-5 #### [facility] ([id number]) [address] [place] [address] 21374 WBC (Bld) [#/Vol] 8.9 10*3/uL Normal 4.0-11.0 [facility] Comment on above: Performed By: #### C BCA, CMP, 41285-4, 32473-3 #### [facility] ([id number]) [address] [place] [address] 19176 COMPREHENSIVE METABOLIC PANE Gerardo 06-28-2023 Albumin [Mass/Vol] 3.6 g/dL Normal 3.2-5.3 [facility] Comment on above: Performed By: #### C BCA, CMP, 49385-8, 68011-4 #### [facility] ([id number]) [address] [place] [address] 23774 ALP [Catalytic activity/Vol] 44 U/L Normal 39-130 [facility] Comment on above: Performed By: #### C BCA, CMP, 07251-1, 89208-2 #### [facility] ([id number]) [address] [place] [address] 76852 ALT [Catalytic activity/Vol] 12 U/L Normal 0-31 [facility] Comment on above: Performed By: #### C BCA, CMP, 61778-0, 88955-4 #### [facility] ([id number]) [address] [place] [address] 83986 Anion gap [Moles/Vol] 8 mmol/L Normal 5-15 [facility] Comment on above: Performed By: #### C BCA, CMP, 14557-4, 72941-3 #### [facility] ([id number]) [address] [place] [address] 75978 AST [Catalytic activity/Vol] 11 U/L Normal 0-41 [facility] Comment on above: Performed By: #### C BCA, CMP, 44286-2, 78327-9 #### [facility] ([id number]) [address] [place] [address] 69592 Bilirubin [Mass/Vol] 0.5 mg/dL Normal 0.3-1.2 [facility] Comment on above: Performed By: #### C BCA, CMP, 71490-7, 62528-3 #### [facility] ([id number]) [address] [place] [address] 12715 Calcium [Mass/Vol] 8.6 mg/dL Normal 8.5-10.5 [facility] Comment on above: Performed By: #### C BCA, CMP, 18920-1, 60909-9 #### [facility] ([id number]) [address] [place] [address] 08908 Chloride [Moles/Vol] 99 mmol/L Normal 98-109 [facility] Comment on above: Performed By: #### C KINDRA, CMP, 64022-1, 30902-3 #### [facility] ([id number]) [address] [place] [address] 85611 CO2 [Moles/Vol] 33 mmol/L High 22-32 [facility] Comment on above: Performed By: #### C BCA, CMP, 82455-3, 35788-7 #### [facility] ([id number]) [address] [place] [address] 29253 Creatinine [Mass/Vol] 1.63 mg/dL High 0.40-1.00 [facility] Comment on above: Result Comment: METH OD TRACEABLE TO IDMS STANDARD Performed By: #### C BCA, CMP, 40400-9, 23690-4 #### [facility] ([id number]) [address] [place] [address] 29937 GFR/1.73 sq M.predicted among non-blacks MDRD (S/P/Bld) [Vol rate/Area] 43 mL/min/{1.73_m2} Low >59 [facility] Comment on above: Result Comment: Reported eGFR is based on the CKD-EPI 2020 equation that does not use a race coefficient. Performed By: #### C BCA, CMP, 92230-3, 18493-0 #### [facility] ([id number]) [address] [place] [address] 38813 Glucose [Mass/Vol] 92 mg/dL Normal 65-99 [facility] Comment on above: Performed By: #### C BCA, CMP, 79997-2, 68899-6 #### [facility] ([id number]) [address] [place] [address] 45813 Potassium [Moles/Vol] 4.0 mmol/L Normal 3.5-5.0 [facility] Comment on above: Performed By: #### C BCA, CMP, 01872-9, 37801-8 #### [facility] ([id number]) [address] [place] [address] 04937 Protein [Mass/Vol] 6.3 g/dL Normal 6.0-8.0 [facility] Comment on above: Performed By: #### C BCA, CMP, 39528-2, 47988-8 #### [facility] ([id number]) [address] [place] [address] 44766 Sodium [Moles/Vol] 140 mmol/L Normal 134-146 [facility] Comment on above: Performed By: #### C BCA, CMP, 77755-6, 79874-6 #### [facility] ([id number]) [address] [place] [address] [place] [address] Urea nitrogen [Mass/Vol] 25 mg/dL High 5-23 [facility] Comment on above: Performed By: #### C BCA, CMP, 34264-9, 63439-5 #### [facility] ([id number]) [address] [place] [address] 68291 CRP [Mass/Vol]on 06-28-2023 C REACTIVE PROTEIN 0.2 mg/dL Normal 0.000-0.744 [facility] Comment on above: Performed By: #### C BCA, CMP, 15086-8, 72413-2 #### [facility] ([id number]) [address] [place] [address] 58738 ESR Photometric method (Bld) [Velocity]on 06-28-2023 ESR, ERYTHROCYTE SEDIMENTATION RATE 2 mm/h Normal 0-20 [facility] Comment on above: Performed By: #### C BCA, CMP, 16117-2, 19339-9 #### [facility] ([id number]) [address] [place] [address] 14666 MAGNESIUMon 06-28-2023 Magnesium [Mass/Vol] 1.8 mg/dL Normal 1.8-2.6 [facility] Comment on above: Performed By: #### C BCA, CMP, 55227-7, 57168-5 #### [facility] ([id number]) [address] [place] [address] 21421 PHOSPHORUSon 06-28-2023 Phosphate [Mass/Vol] 2.8 mg/dL Normal 2.4-4.9 [facility] Comment on above: Performed By: #### C KINDRA, CMP, 34645-5, 12918-4 #### [facility] ([id number]) [address] [place] [address] 90868 PROTEIN CREAT RATIOon 2023 RANDOM URINE PROTEIN 1070 mg/L High <120 [facility] Comment on above: Performed By: #### C BCA, CMP, 21487-9, 46011-6 #### [facility] ([id number]) [address] [place] [address] 94215 Performed By: #### U PCR ####[facility] ([id number])[address], [address], [place] [address] U/PRO/PLUG CUTTING MACHINE OPERATOR RATIO CALC 0.70 High <0.2 [facility] Comment on above: Result Comment: Neph rotic Syndrome is associated with ratios >3.5 Performed By: #### C KINDRA, [facility], 13828-5, 54164-8 #### [facility] ([id number]) [address] [place] [address] 01351 U/PRO/PLUG CUTTING MACHINE OPERATOR RATIO CALC 0.71 High <0.2 [facility] Comment on above: Result Comment: Neph rotic Syndrome is associated with ratios >3.5 Performed By: #### U PCR ####[facility] ([id number])[address], [place] [address] URINE CREATININE,RDM 151.79 mg/dL Normal Pr [facility] Comment on above: Performed By: #### C KINDRA, [facility], 25798-5, 88379-2 #### [facility] ([id number]) [address] [place] [address] 18431 URINE CREATININE,RDM 151.74 mg/dL Normal Pr [facility] Comment on above: Performed By: #### U PCR ####[facility] ([id number])[address], [place] [address] Parathyrin.intact [Mass/Vol] on 06-28-2023 PTH INTACT 107 pg/mL High 12-88 [facility] Comment on above: Performed By: #### C BCA, 23488-9, UPCR, CMP, 1988-5, 06130-8, 2777-1, 2731-8, 29242-8 ####[facility] ([id number])[address], [place] [address] URINALYSISon 06-28-2023 Bilirubin Ql (U) Negative Normal NEG [facility] BLOOD/HGB Large Abnormal NEG [facility] Color (U) YELLOW Normal YELLOW [facility] Glucose Ql (U) Negative Normal NEG [facility] Ketones Ql (U) Negative Normal NEG [facility] Leukocyte esterase Test strip Ql (U) Negative Normal NEG [facility] MUCOUS PRESENT Abnormal NONE [facility] Nitrite Ql (U) Negative Normal NEG [facility] pH (U) 6.0 [pH] Normal 5.0-8.5 [facility] Protein Ql (U) 100 mg/dL Abnormal NEG [facility] R.B.CELLS 126 /hpf High 0-5 [facility] Specific gravity (U) [Rel density] 1.017 Normal 1.003-1.035 [facility] SQUAMOUS EPITHELIUM 1 /hpf Normal 0-5 [facility] TURBIDITY CLEAR Normal CLEAR [facility] Urobilinogen (U) [Mass/Vol] mg/dL Normal <1.1 [facility] W.B.CELLS 4 /hpf Normal 0-5 [facility] Vitamin D+Metabolites [Mass/ Vol]on 06-28-2023 VITAMIN D 25 HYD TOT 29.0 ng/mL Low 30-100 [facility] Comment on above: Result Comment: Vitamin D status 25 [place] Vitamin D Deficiency <20 ng/mL Insufficiency 20-29 ng/mL Sufficiency 30-100 ng/mL Toxicity >100 ng/mL NOTE: A pediatric reference range has not been established by the tag machine operator of this kit. The [place] [employer] recommends a Vitamin D level of = or >20ng/mL in infants and children. Performed By: #### C BCA, 83178-5, UPCR, CMP, 1988-5, 58295-3, 2777-1, 2731-8, 77746-6 ####[facility] ([id number])[address], [address] [place] [address] CT ABDOMEN AND PELVIS W CONT on [...] Recommendations for adnexal lesion management based on Mk, et al., J Am Javier Radiol 10:675-81 (2013). Finalized by Ben Dinh MD on 06/25/2023 12:33 AM Normal [facility] CBC AND AUTO DIFFon 06-24-19 24 ABSOLUTE BASOPHIL 0.1 X10E9/L Normal 0.0-0.2 [facility] Comment on above: Performed By: #### C CORINA ARGUELLES, 61154-1, 55198-1 #### [facility] ([id number]) [address] [place] [address] 85947 ABSOLUTE NEUTROPHIL 7.9 X10E9/L High 1.5-6.6 [facility] Comment on above: Performed By: #### C CORINA ARGUELLES, 12516-6, 04633-1 #### [facility] ([id number]) [address] [place] [address] 64613 Basophils/100 WBC (Bld) 0.5 % Normal [facility] Comment on above: Performed By: #### C CORINA ARGUELLES, 00601-4, 84149-1 #### [facility] ([id number]) [address] [place] [address] 47962 Eosinophils (Bld) [#/Vol] 0.0 10*3/uL Normal 0.0-0.4 [facility] Comment on above: Performed By: #### Nataliia ARGUELLES CMP, 68325-1, 74045-4 #### [facility] ([id number]) [address] [place] [address] 75822 Eosinophils/100 WBC (Bld) 0.2 % Normal [facility] Comment on above: Performed By: #### Nataliia ARGUELLES CMP, 26818-1, 50881-8 #### [facility] ([id number]) [address] [place] [address] 91335 Erythrocyte distribution width (RBC) [Ratio] 14.9 % Normal 11.5-15.0 [facility] Comment on above: Performed By: #### Nataliia ARGUELLES CMP, 85380-7, 19717-7 #### [facility] ([id number]) [address] [place] [address] 45556 Hematocrit (Bld) [Volume fraction] 36.0 % Normal 35-47 [facility] Comment on above: Performed By: #### Nataliia ARGUELLES CMP, 17014-3, 39789-3 #### [facility] ([id number]) [address] [place] [address] 19779 Hemoglobin (Bld) [Mass/Vol] 12.5 g/dL Normal 11.7-15.5 [facility] Comment on above: Performed By: #### Nataliia ARGUELLES CMP, 22720-1, 75712-0 #### [facility] ([id number]) [address] [place] [address] 21902 Lymphocytes (Bld) [#/Vol] 1.6 10*3/uL Normal 1.0-3.5 [facility] Comment on above: Performed By: #### C KINDRA, CMP, 83769-6, 01977-9 #### [facility] ([id number]) [address] [place] [address] 00725 Lymphocytes/100 WBC (Bld) 15.9 % Normal [facility] Comment on above: Performed By: #### C BCA, CMP, 57901-5, 14425-3 #### [facility] ([id number]) [address] [place] [address] 71700 MCH (RBC) [Entitic mass] 30.2 pg Normal 27-34 [facility] Comment on above: Performed By: #### Nataliia ARGUELLES, CMP, 23049-7, 88061-6 #### [facility] ([id number]) [address] [place] [address] [place] [address] MCHC (RBC) [Mass/Vol] 34.8 g/dL Normal 32-36 [facility] Comment on above: Performed By: #### C KINDRA, CMP, 56641-4, 49817-9 #### [facility] ([id number]) [address] [place] [address] 20819 MCV (RBC) [Entitic vol] 87 fL Normal 80-100 [facility] Comment on above: Performed By: #### C BCA, CMP, 22736-5, 91044-2 #### [facility] ([id number]) [address] [place] [address] 09213 Monocytes (Bld) [#/Vol] 0.6 10*3/uL Normal 0-0.9 [facility] Comment on above: Performed By: #### C BCA, CMP, 36263-4, 83484-3 #### [facility] ([id number]) [address] [place] [address] 29939 Monocytes/100 WBC (Bld) 6.2 % Normal [facility] Comment on above: Performed By: #### Nataliia ARGUELLES, CMP, 25960-3, 42358-5 #### [facility] ([id number]) [address] [place] [address] 96451 Neutrophils/100 WBC (Bld) 77.2 % Normal [facility] Comment on above: Performed By: #### Nataliia ARGUELLES, CMP, 06738-0, 37841-7 #### [facility] ([id number]) [address] [place] [address] 72158 Platelet mean volume (Bld) [Entitic vol] 7.3 fL Normal 7-12 [facility] Comment on above: Performed By: #### Nataliia ARGUELLES, CMP, 29837-3, 28444-5 #### [facility] ([id number]) [address] [place] [address] 58516 Platelets (Bld) [#/Vol] 305 10*3/uL Normal 150-450 [facility] Comment on above: Performed By: #### Nataliia ARGUELLES, CMP, 83544-5, 97276-1 #### [facility] ([id number]) [address] [place] [address] 02803 RBC COUNT 4.15 X10E12/L Normal 3.80-5.20 [facility] Comment on above: Performed By: #### Nataliia ARGUELLES, CMP, 78523-3, 95849-6 #### [facility] ([id number]) [address] [place] [address] 70974 WBC (Bld) [#/Vol] 10.2 10*3/uL Normal 4.0-11.0 [facility] Comment on above: Performed By: #### Nataliia ARGUELLES, CMP, 84938-7, 18311-2 #### [facility] ([id number]) [address] [place] [address] 80509 COMPREHENSIVE METABOLIC PANE Gerardo 06-24-2023 Albumin [Mass/Vol] 3.8 g/dL Normal 3.2-5.3 [facility] Comment on above: Performed By: #### C BCA, CMP, 48792-4, 07196-0 #### [facility] ([id number]) [address] [place] [address] 08794 ALP [Catalytic activity/Vol] 46 U/L Normal 39-130 [facility] Comment on above: Performed By: #### C BCA, CMP, 91708-1, 64695-1 #### [facility] ([id number]) [address] [place] [address] 43756 ALT [Catalytic activity/Vol] 14 U/L Normal 0-31 [facility] Comment on above: Performed By: #### C BCA, CMP, 11362-1, 51006-9 #### [facility] ([id number]) [address] [place] [address] 09659 Anion gap [Moles/Vol] 6 mmol/L Normal 5-15 [facility] Comment on above: Performed By: #### C BCA, CMP, 73836-3, 98042-3 #### [facility] ([id number]) [address] [place] [address] 58031 AST [Catalytic activity/Vol] 13 U/L Normal 0-41 [facility] Comment on above: Performed By: #### C BCA, CMP, 92175-2, 74099-9 #### [facility] ([id number]) [address] [place] [address] 16518 Bilirubin [Mass/Vol] 0.6 mg/dL Normal 0.3-1.2 [facility] Comment on above: Performed By: #### C BCA, CMP, 21066-5, 97408-7 #### [facility] ([id number]) [address] [place] [address] 39507 Calcium [Mass/Vol] 8.4 mg/dL Low 8.5-10.5 [facility] Comment on above: Performed By: #### C CORINA ARGUELLES, 62890-7, 68632-1 #### [facility] ([id number]) [address] [place] [address] 66629 Chloride [Moles/Vol] 102 mmol/L Normal 98-109 [facility] Comment on above: Performed By: #### C CORINA ARGUELLES, 75015-7, 04945-1 #### [facility] ([id number]) [address] [place] [address] 14975 CO2 [Moles/Vol] 28 mmol/L Normal 22-32 [facility] Comment on above: Performed By: #### C CORINA ARGUELLES, 29634-3, 68464-0 #### [facility] ([id number]) [address] [place] [address] 93948 Creatinine [Mass/Vol] 1.48 mg/dL High 0.40-1.00 [facility] Comment on above: Result Comment: METH OD TRACEABLE TO IDMS STANDARD Performed By: #### C CORINA ARGUELLES, 33513-4, 57846-6 #### [facility] ([id number]) [address] [place] [address] 30633 GFR/1.73 sq M.predicted among non-blacks MDRD (S/P/Bld) [Vol rate/Area] 48 mL/min/{1.73_m2} Low >59 [facility] Comment on above: Result Comment: Reported eGFR is based on the CKD-EPI 2020 equation that does not use a race coefficient. Performed By: #### C CORINA ARGUELLES, 95765-4, 11471-0 #### [facility] ([id number]) [address] [place] [address] 99534 Glucose [Mass/Vol] 102 mg/dL High 65-99 [facility] Comment on above: Performed By: #### C KINDRA, CMP, 78796-8, 30738-2 #### [facility] ([id number]) [address] [place] [address] 20735 Potassium [Moles/Vol] 3.9 mmol/L Normal 3.5-5.0 [facility] Comment on above: Performed By: #### C KINDRA, CMP, 24962-2, 22124-4 #### [facility] ([id number]) [address] [place] [address] 51846 Protein [Mass/Vol] 6.5 g/dL Normal 6.0-8.0 [facility] Comment on above: Performed By: #### C KINDRA, CMP, 09814-0, 59556-3 #### [facility] ([id number]) [address] [place] [address] 99670 Sodium [Moles/Vol] 136 mmol/L Normal 134-146 [facility] Comment on above: Performed By: #### C KINDRA, CMP, 94033-6, 94392-8 #### [facility] ([id number]) [address] [place] [address] 86033 Urea nitrogen [Mass/Vol] 31 mg/dL High 5-23 [facility] Comment on above: Performed By: #### C KINDRA, CMP, 74585-8, 50929-7 #### [facility] ([id number]) [address] [place] [address] 19936 HCG ( test) Ql (U)o n 06-24-2023 Beta HCG ( test) Ql (U) Negative Normal NEG [facility] Comment on above: Performed By: #### C KINDRA, CMP, 02242-9, 77841-3 #### [facility] ([id number]) [address] [place] [address]23 LIPASEon 06-24-2023 Lipase [Catalytic activity/Vol] 55 U/L High 17-40 [facility] Comment on above: Performed By: #### C BCA, CMP, 20609-3, 77104-7 #### [facility] ([id number]) [address] [place] [address] 71071 URN MACROSCOPIC NURon 2023 BILIRUBIN BRENDEN Negative Normal NEG [facility] Comment on above: Performed By: #### C BCA, CMP, 28644-5, 60321-5 #### [facility] ([id number]) [address] [place] [address] 43004 BLOOD/HGB BRENDEN Large Abnormal NEG [facility] Comment on above: Performed By: #### C BCA, CMP, 03680-7, 30397-1 #### [facility] ([id number]) [address] [place] [address] 22792 GLUCOSE BRENDEN Negative Normal NEG [facility] Comment on above: Performed By: #### C BCA, CMP, 42742-5, 38034-4 #### [facility] ([id number]) [address] [place] [address] 48502 KETONES BRENDEN Negative Normal NEG [facility] Comment on above: Performed By: #### C BCA, CMP, 82780-3, 58791-7 #### [facility] ([id number]) [address] [place] [address] 54721 LEUKOCYTE ESTERASE BRENDEN Negative Normal NEG [facility] Comment on above: Performed By: #### C BCA, CMP, 89540-3, 08570-1 #### [facility] ([id number]) [address] [place] [address] 40712 NITRITE BRENDEN Negative Normal NEG [facility] Comment on above: Performed By: #### C BCA, CMP, 20285-9, 11950-1 #### [facility] ([id number]) [address] [place] [address], [place] [address] PH BRENDEN 5.5 Normal 5.0-8.5 [facility] Comment on above: Performed By: #### C CORINA ARGUELLES, 14841-9, 42013-0 #### [facility] ([id number]) [address] [place] [address] PROTEIN BRENDEN >=300 Abnormal NEG [facility] Comment on above: Performed By: #### C CORINA ARGUELLES, 49467-8, 88479-4 #### [facility] ([id number]) [address] [place] [address] SPECIFIC GRAVITY BRENDEN 1.020 Normal 1.003-1.035 [facility] Comment on above: Performed By: #### C CORINA ARGUELLES, 26280-2, 47816-4 #### [facility] ([id number]) [address] [place] [address] UROBILINOGEN BRENDEN 0.2 eu/dL Normal <1.1 [facility] Comment on above: Performed By: #### C CORINA ARGUELLES, 96924-7, 25089-3 #### [facility] ([id number]) [address] [place] [address] CT CTA COR ARTERIES W OR WO [...] Reina MD on 06/21/2023 9:57 AM Normal [facility] TROPONIN Ion 06-20-2023 Troponin I.cardiac [Mass/Vol] ng/mL Normal 0.00-0.04 [facility] Comment on above: Performed By: #### 4 485-9, CMP, CBCA, 4498-2, 1987-5, 79031-8 #### [facility] ([id number]) [address] [place] [address] CBC AND AUTO DIFFon 06-19-19 24 ABSOLUTE BASOPHIL 0.0 X10E9/L Normal 0.0-0.2 [facility] Comment on above: Performed By: #### T [facility], 2639-3, 2156-09, CBCA, CMP #### [facility] ([id number]) [address], [address] [place] [address] ABSOLUTE NEUTROPHIL 7.8 X10E9/L High 1.5-6.6 [facility] Comment on above: Performed By: #### T SHR, 2639-3, 6, CBCA, CMP #### [facility] ([id number]) [address], [address] [place] [address] Basophils/100 WBC (Bld) 0.3 % Normal [facility] Comment on above: Performed By: #### T ANTON, 2638-06, 2156-09, CBCA, CMP #### [facility] ([id number]) [address], [facility] [address] [place] [address] Eosinophils (Bld) [#/Vol] 0.1 10*3/uL Normal 0.0-0.4 [facility] Comment on above: Performed By: #### T ANTON, 2638-06, 2156-09, CBCA, CMP #### [facility] ([id number]) [address], [facility] [address] [place] [address] Eosinophils/100 WBC (Bld) 0.6 % Normal [facility] Comment on above: Performed By: #### T ANTON, 2638-06, 2156-09, CBCA, CMP #### [facility] ([id number]) [address] [address] [place] [address] Erythrocyte distribution width (RBC) [Ratio] 14.7 % Normal 11.5-15.0 [facility] Comment on above: Performed By: #### T ANTON, 2638-06, 2156-09, CBCA, CMP #### [facility] ([id number]) [address], [facility] [address] [place] [address] Hematocrit (Bld) [Volume fraction] 38.0 % Normal 35-47 [facility] Comment on above: Performed By: #### T ANTON, 2638-06, 2156-09, CBCA, CMP #### [facility] ([id number]) [address], [facility] [address] [place] [address] Hemoglobin (Bld) [Mass/Vol] 13.2 g/dL Normal 11.7-15.5 [facility] Comment on above: Performed By: #### T ANTON, 2638-06, 2156-09, CBCA, CMP #### [facility] ([id number]) [address] [address] [place] [address] Lymphocytes (Bld) [#/Vol] 1.1 10*3/uL Normal 1.0-3.5 [facility] Comment on above: Performed By: #### T ANTON, 2638-06, 2156-09, CBCA, CMP #### [facility] ([id number]) [address], [facility] [address] [place] [address] Lymphocytes/100 WBC (Bld) 11.0 % Normal [facility] Comment on above: Performed By: #### T ANTON, 2638-06, 2156-09, CBCA, CMP #### [facility] ([id number]) [address] [address] MCH (RBC) [Entitic mass] 30.4 pg Normal 27-34 [facility] Comment on above: Performed By: #### T ANTON, 2638-06, 2156-09, CBCA, CMP #### [facility] ([id number]) [address] [address] [place] [address] MCHC (RBC) [Mass/Vol] 34.9 g/dL Normal 32-36 [facility] Comment on above: Performed By: #### T ANTON, 2638-06, 2156-09, CBCA, CMP #### [facility] ([id number]) [address] [address] MCV (RBC) [Entitic vol] 87 fL Normal 80-100 [facility] Comment on above: Performed By: #### T ANTON, 2638-06, 2156-09, CBCA, CMP #### [facility] ([id number]) [address] [address] [place] [address] Monocytes (Bld) [#/Vol] 0.7 10*3/uL Normal 0-0.9 [facility] Comment on above: Performed By: #### T ANTON, 2638-3, 6, CBCA, CMP #### [facility] ([id number]) [address], [address] [place] [address] Monocytes/100 WBC (Bld) 7.2 % Normal [facility] Comment on above: Performed By: #### T ANTON, 3, 6, CBCA, CMP #### [facility] ([id number]) [address], [address] [place] [address] Neutrophils/100 WBC (Bld) 80.9 % Normal [facility] Comment on above: Performed By: #### T ANTON, 2638-06, 2156-09, CBCA, CMP #### [facility] ([id number]) [address], [address] [place] [address] Platelet mean volume (Bld) [Entitic vol] 7.5 fL Normal 7-12 [facility] Comment on above: Performed By: #### T ANTON, 2638-06, 2156-09, CBCA, CMP #### [facility] ([id number]) [address] [place] [address] Platelets (Bld) [#/Vol] 309 10*3/uL Normal 150-450 [facility] Comment on above: Performed By: #### T ANTON, 3, 2156-09, CBCA, CMP #### [facility] ([id number]) [address], [address] [place] [address] RBC COUNT 4.36 X10E12/L Normal 3.80-5.20 [facility] Comment on above: Performed By: #### T ANTON, 3, 2156-09, CBCA, CMP #### [facility] ([id number]) [address], [address] [place] [address] WBC (Bld) [#/Vol] 9.7 10*3/uL Normal 4.0-11.0 [facility] Comment on above: Performed By: #### T SHR, 2639-3, 2157-6, CBCA, CMP #### [facility] ([id number]) [address], [address] [place] [address] CK [Catalytic activity/Vol]o n 06-19-2023 CPK 24 U/L Normal 24-170 [facility] Comment on above: Performed By: #### 4 485-9, CMP, CBCA, 4498-2, 1987-08, 32123-8 #### [facility] ([id number]) [address] [place] [address] COMPREHENSIVE METABOLIC PANE Gerardo 06-19-2023 Albumin [Mass/Vol] 3.9 g/dL Normal 3.2-5.3 [facility] Comment on above: Performed By: #### 4 485-9, CMP, CBCA, 4498-2, 1987-08, 39595-9 #### [facility] ([id number]) [address], [address] [place] [address] ALP [Catalytic activity/Vol] 38 U/L Low 39-130 [facility] Comment on above: Performed By: #### 4 485-9, CMP, CBCA, 4498-2, 1987-08, 61076-8 #### [facility] ([id number]) [address], [address] [place] [address] ALT [Catalytic activity/Vol] 11 U/L Normal 0-31 [facility] Comment on above: Performed By: #### 4 485-9, CMP, CBCA, 4498-2, 1987-08, 39450-8 #### [facility] ([id number]) [address], [address] [place] [address] Anion gap [Moles/Vol] 9 mmol/L Normal 5-15 [facility] Comment on above: Performed By: #### 4 485-9, CMP, CBCA, 4498-2, 1987-08, 11293-4 #### [facility] ([id number]) [address], [address] [place] [address] AST [Catalytic activity/Vol] 11 U/L Normal 0-41 [facility] Comment on above: Performed By: #### 4 485-9, CMP, CBCA, 4498-2, 1987-08, 30812-9 #### [facility] ([id number]) [address], [address] [place] [address] Bilirubin [Mass/Vol] 0.4 mg/dL Normal 0.3-1.2 [facility] Comment on above: Performed By: #### 4 485-9, CMP, CBCA, 4498-2, 1987-08, 17330-8 #### [facility] ([id number]) [address], [address] [place] [address] Calcium [Mass/Vol] 9.0 mg/dL Normal 8.5-10.5 [facility] Comment on above: Performed By: #### 4 485-9, CMP, CBCA, 4498-2, 1987-08, 23338-2 #### [facility] ([id number]) [address], [address] [place] [address] Chloride [Moles/Vol] 104 mmol/L Normal 98-109 [facility] Comment on above: Performed By: #### 4 485-9, CMP, CBCA, 4498-2, 1987-08, 19494-2 #### [facility] ([id number]) [address], [address] [place] [address] CO2 [Moles/Vol] 28 mmol/L Normal 22-32 [facility] Comment on above: Performed By: #### 4 485-9, CMP, CBCA, 4498-2, 1987-08, 69597-3 #### [facility] ([id number]) [address], [address] [place] [address] Creatinine [Mass/Vol] 1.10 mg/dL High 0.40-1.00 [facility] Comment on above: Result Comment: METH OD TRACEABLE TO IDMS STANDARD Performed By: #### 4 485-9, CMP, CBCA, 4498-2, 1987-08, 10749-4 #### [facility] ([id number]) [address], [address] [place] [address] GFR/1.73 sq M.predicted among non-blacks MDRD (S/P/Bld) [Vol rate/Area] 69 mL/min/{1.73_m2} Normal >59 [facility] Comment on above: Result Comment: Reported eGFR is based on the CKD-EPI 2020 equation that does not use a race coefficient. Performed By: #### 4 485-9, CMP, CBCA, 449-2, 1987-08, 67599-5 #### [facility] ([id number]) [address], [address] [place] [address] Glucose [Mass/Vol] 106 mg/dL High 65-99 [facility] Comment on above: Performed By: #### 4 485-9, CMP, CBCA, 4497-2, 1987-08, 37328-0 #### [facility] ([id number]) [address], [address] [place] [address] Potassium [Moles/Vol] 3.6 mmol/L Normal 3.5-5.0 [facility] Comment on above: Performed By: #### 4 485-9, CMP, CBCA, 4498-2, 1987-08, 02806-6 #### [facility] ([id number]) [address], [address] [place] [address] Protein [Mass/Vol] 6.3 g/dL Normal 6.0-8.0 [facility] Comment on above: Performed By: #### 4 485-9, CMP, CBCA, 4498-2, 1987-08, 63096-0 #### [facility] ([id number]) [address], [address] [place] [address] Sodium [Moles/Vol] 141 mmol/L Normal 134-146 [facility] Comment on above: Performed By: #### 4 485-9, CMP, CBCA, 4498-2, 1987-08, 07011-8 #### [facility] ([id number]) [address], [address] [place] [address] Urea nitrogen [Mass/Vol] 21 mg/dL Normal 5-23 [facility] Comment on above: Performed By: #### 4 485-9, CMP, CBCA, 4498-2, 1987-08, 54287-1 #### [facility] ([id number]) [address], [address] [place] [address] HGB A1C (GLYCO-HGB)on 2023 Glucose [Mass/Vol] 105 mg/dL Normal [facility] HbA1c (Bld) [Mass fraction] 5.3 % Normal 4.4-5.6 [facility] Comment on above: Result Comment: NOTE ADA Guidelines Result HgbA1c Normal : less than 5.7 % Prediabetes : 5.7 % to 6.4 % Diabetes : > 6.4 % Use with caution in patients with abnormal hemoglobin variants as the half-life of red blood cells and in vivo glycation rates are affected. Lipid 1996 panelon 4 Cholesterol [Mass/Vol] 108 mg/dL Low 150-200 [facility] Comment on above: Performed By: #### 4 485-9, CMP, CBCA, 4498-2, 1987-08, 68183-6 #### [facility] ([id number]) [address], [address] [place] [address] Cholesterol in HDL [Mass/Vol] 37 mg/dL Low >39 [facility] Comment on above: Result Comment: HDL <40 mg/dL - High Risk HDL > or = 40mg/dL- Desirable HDL >60 mg/dL - Negative Risk Performed By: #### 4 485-9, CMP, CBCA, 4498-2, 1987-08, 97291-1 #### [facility] ([id number]) [address], [facility] [address] [place] [address] Cholesterol in LDL [Mass/Vol] 52 mg/dL Normal <130 [facility] Comment on above: Result Comment: LDL <100 mg/dL - Desirable LDL >160 mg/dL - High Risk Performed By: #### 4 485-9, CMP, CBCA, 4498-2, 1987-08, 13290-9 #### [facility] ([id number]) [address], [facility] [address] [place] [address] Cholesterol in VLDL [Mass/Vol] 19 mg/dL Normal 0-30 [facility] Comment on above: Performed By: #### 4 485-9, CMP, CBCA, 4498-2, 1987-08, 77034-4 #### [facility] ([id number]) [address], [address] [address] CHOLESTEROL:HDL 2.9 Normal 1.0-5.0 [facility] Comment on above: Performed By: #### 4 485-9, CMP, CBCA, 4498-2, 1987-08, 38872-7 #### [facility] ([id number]) [address], [address] [place] [address] Triglyceride [Mass/Vol] 96 mg/dL Normal 27-150 [facility] Comment on above: Performed By: #### 4 485-9, CMP, CBCA, 4498-2, 1987-08, 15947-0 #### [facility] ([id number]) [address], [address] [place] [address] MAGNESIUMon 06-19-2023 Magnesium [Mass/Vol] 1.8 mg/dL Normal 1.8-2.6 [facility] Comment on above: Performed By: #### 4 485-9, CMP, CBCA, 4498-2, 1987-08, 57752-3 #### [facility] ([id number]) [address] [place] [address] Myoglobin [Mass/Vol]on 06-19 SERUM MYOGLOBIN 20.4 ng/mL Normal 14.3-65.8 [facility] Comment on above: Performed By: #### 4 485-9, CMP, CBCA, 4498-2, 1987-08, 18697-3 #### [facility] ([id number]) [address] [place] [address] Natriuretic peptide B [Mass/ Vol]on 06-19-2023 Natriuretic peptide B (Bld) [Mass/Vol] 13 pg/mL Normal <100.0 [facility] Comment on above: Performed By: #### 4 485-9, CMP, CBCA, 4498-2, 1987-08, 85913-6 #### [facility] ([id number]) [address], [address] [place] [address] TROPONIN Ion 06-19-2023 Troponin I.cardiac [Mass/Vol] ng/mL Normal 0.00-0.04 [facility] Comment on above: Performed By: #### 4 485-9, CMP, CBCA, 4498-2, 1987-08, 95301-2 #### [facility] ([id number]) [address], [address] [place] [address] Troponin I.cardiac [Mass/Vol] ng/mL Normal 0.00-0.04 [facility] Comment on above: Performed By: #### 4 485-9, CMP, CBCA, 4498-2, 1987-08, 65370-8 #### [facility] ([id number]) [address] [place] [address] TSH WITH REFLEXon 06-19-2023 TSH 1.95 uIU/mL Normal 0.49-4.67 [facility] Comment on above: Performed By: #### 4 485-9, CMP, CBCA, 4498-2, 1987-08, 84688-2 #### [facility] ([id number]) [address] [place] [address] Troponin I.cardiac (Bld) [Ma ss/Vol]on 06-19-2023 PORTABLE TROPONIN <0.01 Normal 0.00-0.08 [facility] Comment on above: Result Comment: NEW REFERENCE RANGE Performed By: #### 4 2757-5 #### [facility] ([id number]) [address] [place] [address] Urine collection deviceon ER EXTRA URINES ER EXTRA URINE ORDER IN PROCESS Normal [facility] XR CHEST 1 VWon 06-19-2023 XR CHEST [...] Stanley MD on 06/19/2023 11:00 AM Normal [facility] CT ABDOMEN AND PELVIS WO CON Ton [...] Delgado MD on 06/16/2023 4:21 PM Normal [facility] HCG ( test) Ql (U)o n 06-16-2023 Beta HCG ( test) Ql (U) Negative Normal NEG [facility] Comment on above: Performed By: #### C KINDRA CMP, 24154-9, 82553-5 #### [facility] ([id number]) [address] [place] [address] URN MACROSCOPIC NURon 2023 BILIRUBIN BRENDEN Negative Normal NEG [facility] Comment on above: Performed By: #### C KINDRA CMP, 55013-0, 71389-3 #### [facility] ([id number]) [address] [place] [address] BLOOD/HGB BRENDEN Large Abnormal NEG [facility] Comment on above: Performed By: #### C KINDRA, CMP, 65678-3, 37652-4 #### [facility] ([id number]) [address] [place] [address] GLUCOSE BRENDEN Negative Normal NEG [facility] Comment on above: Performed By: #### C BCA, CMP, 64524-1, 10023-9 #### [facility] ([id number]) [address] [place] [address] [place] [address] KETONES BRENDEN Negative Normal NEG [facility] Comment on above: Performed By: #### C BCA, CMP, 95192-4, 01288-6 #### [facility] ([id number]) [address] [place] [address] LEUKOCYTE ESTERASE BRENDEN Negative Normal NEG [facility] Comment on above: Performed By: #### C BCA, CMP, 33787-7, 83212-1 #### [facility] ([id number]) [address] [place] [address] NITRITE BRENDEN Negative Normal NEG [facility] Comment on above: Performed By: #### C BCA, CMP, 75989-1, 05064-4 #### [facility] ([id number]) [address] [place] [address] PH BRENDEN 5.5 Normal 5.0-8.5 [facility] Comment on above: Performed By: #### C BCA, CMP, 17531-0, 66158-1 #### [facility] ([id number]) [address] [place] [address] PROTEIN BRENDEN >=300 Abnormal NEG [facility] Comment on above: Performed By: #### C BCA, CMP, 49468-2, 56325-2 #### [facility] ([id number]) [address] [place] [address] [place] [address] SPECIFIC GRAVITY BRENDEN 1.020 Normal 1.003-1.035 [facility] Comment on above: Performed By: #### C BCA, CMP, 60183-8, 07904-9 #### [facility] ([id number]) [address] [place] [address] UROBILINOGEN BRENDEN 0.2 eu/dL Normal <1.1 [facility] Comment on above: Performed By: #### C BCA, CMP, 53316-5, 40376-0 #### [facility] ([id number]) [address] [place] [address] BASIC METABOLIC PANLon 06-14 Anion gap [Moles/Vol] 11 mmol/L Normal 5-15 [facility] Comment on above: Performed By: #### C BC, BMP, 21305-3, 2776-1, 2731-8, 52409-2 #### [facility] ([id number]) [address] [place] [address] Calcium [Mass/Vol] 8.7 mg/dL Normal 8.5-10.5 [facility] Comment on above: Performed By: #### C BC, BMP, 65013-6, 2776-1, 2731-8, 52610-3 #### [facility] ([id number]) [address] [place] [address] Chloride [Moles/Vol] 99 mmol/L Normal 98-109 [facility] Comment on above: Performed By: #### C BC, BMP, 30500-0, 2776-1, 2731-8, 84573-8 #### [facility] ([id number]) [address] [place] [address] CO2 [Moles/Vol] 30 mmol/L Normal 22-32 [facility] Comment on above: Performed By: #### C BC, BMP, 74195-4, 2777-1, 2731-8, 73321-9 #### [facility] ([id number]) [address], [address] [place] [address] Creatinine [Mass/Vol] 1.68 mg/dL High 0.40-1.00 [facility] Comment on above: Result Comment: METH OD TRACEABLE TO IDMS STANDARD Performed By: #### Nataliia GATICA, BMP, 45133-8, 2776-, 273-8, 49225-0 #### [facility] ([id number]) [address], [facility] [address] [place] [address] GFR/1.73 sq M.predicted among non-blacks MDRD (S/P/Bld) [Vol rate/Area] 41 mL/min/{1.73_m2} Low >59 [facility] Comment on above: Result Comment: Reported eGFR is based on the CKD-EPI 2020 equation that does not use a race coefficient. Performed By: #### Nataliia GATICA, BMP, 36404-5, 2776-, 2731-8, 43083-6 #### [facility] ([id number]) [address], [address] [place] [address] Glucose [Mass/Vol] 166 mg/dL High 65-99 [facility] Comment on above: Performed By: #### Nataliia GATICA, BMP, 39175-0, 2776-, 2731-8, 46433-7 #### [facility] ([id number]) [address], [address] [place] [address] Potassium [Moles/Vol] 4.0 mmol/L Normal 3.5-5.0 [facility] Comment on above: Performed By: #### Nataliia BC, BMP, 40324-4, 2776-1, 2731-8, 93450-1 #### [facility] ([id number]) [address], [address] [place] [address] Sodium [Moles/Vol] 140 mmol/L Normal 134-146 [facility] Comment on above: Performed By: #### C BC, BMP, 55458-8, 2777-1, 2731-8, 27357-6 #### [facility] ([id number]) [address], [address] [place] [address] Urea nitrogen [Mass/Vol] 33 mg/dL High 5-23 [facility] Comment on above: Performed By: #### C BC, BMP, 81261-1, 2777-1, 2731-8, 37942-6 #### [facility] ([id number]) [address], [address] [place] [address] COMPLETE BLOOD COUNTon 06-14 Erythrocyte distribution width (RBC) [Ratio] 14.8 % Normal 11.5-15.0 [facility] Comment on above: Performed By: #### C BC, BMP, 39290-5, 7-1, 2731-8, 49271-0 #### [facility] ([id number]) [address], [address] [place] [address] Hematocrit (Bld) [Volume fraction] 36.5 % Normal 35-47 [facility] Comment on above: Performed By: #### C BC, BMP, 24644-1, 7-1, 2731-8, 46047-6 #### [facility] ([id number]) [address], [address] [place] [address] Hemoglobin (Bld) [Mass/Vol] 12.5 g/dL Normal 11.7-15.5 [facility] Comment on above: Performed By: #### C BC, BMP, 58680-2, 2777-1, 2731-8, 05061-1 #### [facility] ([id number]) [address], [address] [place] [address] MCH (RBC) [Entitic mass] 29.9 pg Normal 27-34 [facility] Comment on above: Performed By: #### C BC, BMP, 97310-4, 2777-1, 2731-8, 33467-2 #### [facility] ([id number]) [address], [address] [place] [address] MCHC (RBC) [Mass/Vol] 34.4 g/dL Normal 32-36 [facility] Comment on above: Performed By: #### Nataliia BC, BMP, 29776-2, 2777-1, 2731-8, 26937-0 #### [facility] ([id number]) [address], [facility] [address] [place] [address] MCV (RBC) [Entitic vol] 87 fL Normal 80-100 [facility] Comment on above: Performed By: #### Nataliia GATICA, BMP, 03997-4, 2777-1, 2731-8, 77708-5 #### [facility] ([id number]) [address], [address] [place] [address] Platelet mean volume (Bld) [Entitic vol] 7.9 fL Normal 7-12 [facility] Comment on above: Performed By: #### Nataliia GATICA, BMP, 33701-0, 2777-1, 2731-8, 30510-1 #### [facility] ([id number]) [address], [facility] [address] [place] [address] Platelets (Bld) [#/Vol] 292 10*3/uL Normal 150-450 [facility] [facility] Comment on above: Performed By: #### Nataliia BC, BMP, 13056-2, 2777-1, 2731-8, 97877-0 #### [facility] ([id number]) [address] [facility] [address] [place] [address] RBC COUNT 4.20 X10E12/L Normal 3.80-5.20 [facility] Comment on above: Performed By: #### Nataliia BC, BMP, 93485-8, 2777-1, 2731-8, 11241-7 #### [facility] ([id number]) [address], [address] [place] [address] WBC (Bld) [#/Vol] 8.3 10*3/uL Normal 4.0-11.0 [facility] Comment on above: Performed By: #### C BC, BMP, 29794-2, 2777-1, 2731-8, 99707-8 #### [facility] ([id number]) [address] [place] [address] MAGNESIUMon 06-14-2023 Magnesium [Mass/Vol] 1.8 mg/dL Normal 1.8-2.6 [facility] Comment on above: Performed By: #### C BC, BMP, 87166-9, 2777-1, 2731-8, 43672-3 #### [facility] ([id number]) [address], [address] [place] [address] NUC STRESS EXERCISEon 2023 NUC STRESS EXERCISE [...] Mario Ribera on 06/14/2023 12:01 PM Normal [facility] PHOSPHORUSon 06-14-2023 Phosphate [Mass/Vol] 3.1 mg/dL Normal 2.4-4.9 [facility] Comment on above: Performed By: #### C BC, BMP, 99098-4, 2777-1, 2731-8, 60582-2 #### [facility] ([id number]) [address], [address] [place] [address] PROTEIN CREAT RATIOon 2023 RANDOM URINE PROTEIN 1140 mg/L High <120 [facility] Comment on above: Performed By: #### U PCR #### [facility] ([id number]) [address], [address] [place] [address] U/PRO/PLUG CUTTING MACHINE OPERATOR RATIO CALC 1.89 High <0.2 [facility] Comment on above: Result Comment: Neph rotic Syndrome is associated with ratios >3.5 Performed By: #### U PCR #### [facility] ([id number]) [address], [address] [place] [address] URINE CREATININE,RDM 60.16 mg/dL Normal [facility] Comment on above: Performed By: #### U PCR #### [facility] ([id number]) [address] [place] [address], [address] [place] [address] Parathyrin.intact [Mass/Vol] on 06-14-2023 PTH INTACT 80 pg/mL Normal 12- [facility] Comment on above: Performed By: #### C BC, [facility], 94838-2, 2777-1, 2731-8, 11288-0 #### [facility] ([id number]) [address] [place] [address], [address] [place] [address] URINALYSISon 06-14-2023 Bilirubin Ql (U) Negative Normal NEG [facility] BLOOD/HGB Large Abnormal NEG [facility] Color (U) YELLOW Normal YELLOW [facility] Glucose Ql (U) Negative Normal NEG [facility] Ketones Ql (U) Negative Normal NEG [facility] Leukocyte esterase Test strip Ql (U) Negative Normal NEG [facility] MUCOUS PRESENT Abnormal NONE [facility] Nitrite Ql (U) Negative Normal NEG [facility] pH (U) 6.5 [pH] Normal 5.0-8.5 [facility] Protein Ql (U) 200 mg/dL Abnormal NEG [facility] R.B.CELLS 146 /hpf High 0-5 [facility] Specific gravity (U) [Rel density] 1.009 Normal 1.003-1.035 [facility] SQUAMOUS EPITHELIUM <1 Normal 0-5 [facility] TURBIDITY CLEAR Normal CLEAR [facility] Urobilinogen (U) [Mass/Vol] mg/dL Normal <1.1 [facility] W.B.CELLS 4 /hpf Normal 0-5 [facility] Vitamin D+Metabolites [Mass/ Vol]on 06-14-2023 VITAMIN D 25 HYD TOT 24.0 ng/mL Low 30-100 [facility] Comment on above: Result Comment: Vitamin D status 25 [place] Vitamin D Deficiency <20 ng/mL Insufficiency 20-29 ng/mL Sufficiency 30-100 ng/mL Toxicity >100 ng/mL NOTE: A pediatric reference range has not been established by the tag machine operator of this kit. The [place] [employer] recommends a Vitamin D level of = or >20ng/mL in infants and children. Performed By: #### C BC, BMP, 64998-7, 2777-1, 2731-8, 41189-8 #### [facility] ([id number]) [address], [address] [place] [address] BASIC METABOLIC PANLon 06-03 Anion gap [Moles/Vol] 9 mmol/L Normal 5-15 [facility] Comment on above: Performed By: #### C BCA, CMP, 63196-3, 43228-9 #### [facility] ([id number]) [address] [place] [address] Calcium [Mass/Vol] 8.5 mg/dL Normal 8.5-10.5 [facility] Comment on above: Performed By: #### C BCA, CMP, 02580-3, 17038-3 #### [facility] ([id number]) [address] [place] [address] 22451 Chloride [Moles/Vol] 100 mmol/L Normal 98-109 [facility] Comment on above: Performed By: #### C BCA, CMP, 96857-7, 67705-6 #### [facility] ([id number]) [address] [place] [address] 61350 CO2 [Moles/Vol] 24 mmol/L Normal 22-32 [facility] Comment on above: Performed By: #### C BCA, CMP, 09343-8, 90992-0 #### [facility] ([id number]) [address] [place] [address]2796 Creatinine [Mass/Vol] 1.70 mg/dL High 0.40-1.00 [facility] Comment on above: Result Comment: METH OD TRACEABLE TO IDMS STANDARD Performed By: #### C BCA, CMP, 27443-1, 79591-2 #### [facility] ([id number]) [address] [place] [address] 33799 GFR/1.73 sq M.predicted among non-blacks MDRD (S/P/Bld) [Vol rate/Area] 41 mL/min/{1.73_m2} Low >59 [facility] Comment on above: Result Comment: Reported eGFR is based on the CKD-EPI 2020 equation that does not use a race coefficient. Performed By: #### C CORINA ARGUELLES, 26489-8, 25512-0 #### [facility] ([id number]) [address] [place] [address] 33117 Glucose [Mass/Vol] 213 mg/dL High 65-99 [facility] Comment on above: Performed By: #### C CORINA ARGUELLES, 88060-9, 54770-0 #### [facility] ([id number]) [address] [place] [address] 63415 Potassium [Moles/Vol] 4.4 mmol/L Normal 3.5-5.0 [facility] Comment on above: Performed By: #### C CORINA ARGUELLES, 00161-0, 46055-5 #### [facility] ([id number]) [address] [place] [address] 60955 Sodium [Moles/Vol] 133 mmol/L Low 134-146 [facility] Comment on above: Performed By: #### Nataliia ARGUELLES CMP, 04242-4, 81183-9 #### [facility] ([id number]) [address] [place] [address] 80829 Urea nitrogen [Mass/Vol] 23 mg/dL Normal 5-23 [facility] Comment on above: Performed By: #### C CORINA ARGUELLES, 91052-9, 35112-4 #### [facility] ([id number]) [address] [place] [address] 50275 CBC AND AUTO DIFFon 06-03-19 24 ABSOLUTE BASOPHIL 0.0 X10E9/L Normal 0.0-0.2 [facility] Comment on above: Performed By: #### C CORINA ARGUELLES, 95271-9, 16795-4 #### [facility] ([id number]) [address] [place] [address] 12677 ABSOLUTE NEUTROPHIL 6.5 X10E9/L Normal 1.5-6.6 [facility] Comment on above: Performed By: #### C CORINA ARGUELLES, 14649-1, 40729-2 #### [facility] ([id number]) [address] [place] [address] 87677 Basophils/100 WBC (Bld) 0.2 % Normal [facility] Comment on above: Performed By: #### Nataliia ARGUELLES CMP, 52691-7, 72443-0 #### [facility] ([id number]) [address] [place] [address] 71809 Eosinophils (Bld) [#/Vol] 0.0 10*3/uL Normal 0.0-0.4 [facility] Comment on above: Performed By: #### C CORINA ARGUELLES, 68854-9, 45044-8 #### [facility] ([id number]) [address] [place] [address] 99314 Eosinophils/100 WBC (Bld) 0.1 % Normal [facility] Comment on above: Performed By: #### Nataliia ARGUELLES CMP, 73485-2, 07246-7 #### [facility] ([id number]) [address] [place] [address] 51015 Erythrocyte distribution width (RBC) [Ratio] 14.9 % Normal 11.5-15.0 [facility] Comment on above: Performed By: #### C CORINA ARGUELLES, 51607-2, 69541-9 #### [facility] ([id number]) [address] [place] [address] 20898 Hematocrit (Bld) [Volume fraction] 36.0 % Normal 35-47 [facility] Comment on above: Performed By: #### C KINDRA, CMP, 85859-0, 51003-7 #### [facility] ([id number]) [address] [place] [address] 59185 Hemoglobin (Bld) [Mass/Vol] 12.8 g/dL Normal 11.7-15.5 [facility] Comment on above: Performed By: #### C KINDRA, CMP, 44130-7, 52946-4 #### [facility] ([id number]) [address] [place] [address] 43426 Lymphocytes (Bld) [#/Vol] 0.4 10*3/uL Low 1.0-3.5 [facility] Comment on above: Performed By: #### Nataliia ARGUELLES CMP, 10569-7, 30661-5 #### [facility] ([id number]) [address] [place] [address] 58287 Lymphocytes/100 WBC (Bld) 6.2 % Normal [facility] Comment on above: Performed By: #### Nataliia ARGUELLES, CMP, 28035-8, 04360-9 #### [facility] ([id number]) [address] [place] [address] 44002 MCH (RBC) [Entitic mass] 30.2 pg Normal 27-34 [facility] Comment on above: Performed By: #### Nataliia ARGUELLES, CMP, 26594-6, 24969-0 #### [facility] ([id number]) [address] [place] [address] 07587 MCHC (RBC) [Mass/Vol] 35.4 g/dL Normal 32-36 [facility] Comment on above: Performed By: #### Nataliia ARGUELLES, CMP, 67985-2, 20830-2 #### [facility] ([id number]) [address] [place] [address] 15298 MCV (RBC) [Entitic vol] 85 fL Normal 80-100 [facility] Comment on above: Performed By: #### C KINDRA, CMP, 13974-3, 72911-1 #### [facility] ([id number]) [address] [place] [address] 68743 Monocytes (Bld) [#/Vol] 0.2 10*3/uL Normal 0-0.9 [facility] Comment on above: Performed By: #### Nataliia ARGUELLES, CMP, 18066-9, 36109-1 #### [facility] ([id number]) [address] [place] [address] 27236 Monocytes/100 WBC (Bld) 3.1 % Normal [facility] Comment on above: Performed By: #### Nataliia ARGUELLES, CMP, 65200-3, 50695-2 #### [facility] ([id number]) [address] [place] [address] 50382 Neutrophils/100 WBC (Bld) 90.4 % Normal [facility] Comment on above: Performed By: #### Nataliia ARGUELLES, CMP, 64643-5, 25205-4 #### [facility] ([id number]) [address] [place] [address] 30521 Platelet mean volume (Bld) [Entitic vol] 6.9 fL Low 7-12 [facility] Comment on above: Performed By: #### Nataliia ARGUELLES, CMP, 64774-0, 71933-0 #### [facility] ([id number]) [address] [place] [address] 55976 Platelets (Bld) [#/Vol] 299 10*3/uL Normal 150-450 [facility] Comment on above: Performed By: #### Nataliia BCA, CMP, 24183-1, 42954-8 #### [facility] ([id number]) [address] [place] [address] 12434 RBC COUNT 4.23 X10E12/L Normal 3.80-5.20 [facility] Comment on above: Performed By: #### C KINDRA, [facility], 67668-9, 83561-4 #### [facility] ([id number]) [address] [place] [address] WBC (Bld) [#/Vol] 7.2 10*3/uL Normal 4.0-11.0 [facility] Comment on above: Performed By: #### C KINDRA, CMP, 08852-0, 86704-8 #### [facility] ([id number]) [address] [place] [address] DRUG SCREEN, URINEon 024 AMPHETAMINE/METHAMP Negative Normal NEG [facility] Comment on above: Result Comment: AMPH /METH screening cut off = 1000 ng/mL Performed By: #### C KINDRA, [facility], 94170-2, 86216-0 #### [facility] ([id number]) [address] [place], [place] [address] BARBITURATES Negative Normal NEG [facility] Comment on above: Result Comment: Lisa iturates screening cut off value = 200 ng/mL Performed By: #### C KINDRA, [facility], 81122-8, 01269-3 #### [facility] ([id number]) [address] [place], [place] [address] BENZODIAZEPINES Negative Normal NEG [facility] Comment on above: Result Comment: Ferdinand odiazepines screening cut off value = 200 ng/mL Performed By: #### C KINDRA, CMP, 58959-3, 93994-9 #### [facility] ([id number]) [address] [place], [place] [address] CANNABINOIDS Positive Abnormal NEG [facility] Comment on above: Result Comment: Conf irmation available upon request. Cannabinoids/THC screening cut off value = 50 ng/mL Performed By: #### C BCA, CMP, 59398-5, 39526-7 #### [facility] ([id number]) [address] [place] [address] 94664 COCAINE METABOLITE Negative Normal NEG [facility] Comment on above: Result Comment: Coca ine screening cut off value = 300 ng/mL Performed By: #### C CORINA ARGUELLES, 62229-9, 91332-3 #### [facility] ([id number]) [address] [place] [address] 74575 ECSTASY Negative Normal NEG [facility] Comment on above: Result Comment: Ecst asy screening cut off value = 500 ng/mL This report is intended for use in clinical monitoring or management of patients. Performed By: #### C CORINA ARGUELLES, 77083-7, 17760-1 #### [facility] ([id number]) [address] [place] [address] 27960 METHADONE Negative Normal NEG [facility] Comment on above: Result Comment: Meth adone screening cut off value = 300 ng/mL. Performed By: #### C CORINA ARGUELLES, 68244-3, 90201-1 #### [facility] ([id number]) [address] [place] [address] 86208 OPIATES Positive Abnormal NEG [facility] Comment on above: Result Comment: Conf irmation available upon request. Opiates screening cut off value = 300 ng/mL NOTE: This test is used for the detection of codeine, hydrocodone (>1000 ng/mL), morphine and hydromorphone (>900 ng/mL) in urine. Performed By: #### C CORINA ARGUELLES, 16189-9, 29453-1 #### [facility] ([id number]) [address] [place] [address] 27673 OXYCODONE Negative Normal NEG [facility] Comment on above: Result Comment: Oxyc odone screening cut off value = 300 ng/mL NOTE: This test is used for the detection of oxycodone and oxymorphone in urine. Performed By: #### C KINDRA, CMP, 81046-3, 93173-4 #### [facility] ([id number]) [address] [place] [address] 79633 PHENCYCLIDINE Negative Normal NEG [facility] Comment on above: Result Comment: Phen cyclidine screening cut off value = 25 ng/mL Performed By: #### C BCA, CMP, 57338-5, 87813-5 #### [facility] ([id number]) [address] [place] [address] 77603 HCG ( test) IAjamal d Ql (S)on 06-03-2023 SERUM Negative Normal NEG [facility] Comment on above: Performed By: #### C BCA, CMP, 97712-6, 78017-6 #### [facility] ([id number]) [address] [place] [address] 25366 LIPASEon 06-03-2023 Lipase [Catalytic activity/Vol] 51 U/L High 17-40 [facility] Comment on above: Performed By: #### C BCA, CMP, 89612-0, 36052-7 #### [facility] ([id number]) [address] [place] [address] 15547 LIVER PANELon 06-03-2023 Albumin [Mass/Vol] 3.9 g/dL Normal 3.2-5.3 [facility] Comment on above: Performed By: #### C BCA, CMP, 44758-1, 47259-2 #### [facility] ([id number]) [address] [place] [address] 56876 ALP [Catalytic activity/Vol] 51 U/L Normal 39-130 [facility] Comment on above: Performed By: #### C BCA, CMP, 88451-2, 55667-1 #### [facility] ([id number]) [address] [place] [address] 82409 ALT [Catalytic activity/Vol] 18 U/L Normal 0-31 [facility] Comment on above: Performed By: #### C KINDRA, CORINA, 82952-1, 36319-5 #### [facility] ([id number]) [address] [place] [address] 32248 AST [Catalytic activity/Vol] 22 U/L Normal 0-41 [facility] Comment on above: Performed By: #### C KINDRA CMP, 17316-3, 41889-8 #### [facility] ([id number]) [address] [place] [address] 62911 Bilirubin [Mass/Vol] 0.5 mg/dL Normal 0.3-1.2 [facility] Comment on above: Performed By: #### C KINDRA CMP, 35934-5, 61964-2 #### [facility] ([id number]) [address] [place] [address] 53204 Bilirubin.direct [Mass/Vol] 0.1 mg/dL Normal 0.0-0.4 [facility] Comment on above: Performed By: #### C CORINA ARGUELLES, 87140-2, 31329-6 #### [facility] ([id number]) [address] [place] [address] 01734 Protein [Mass/Vol] 6.6 g/dL Normal 6.0-8.0 [facility] Comment on above: Performed By: #### C KINDRA CMP, 76868-1, 73846-7 #### [facility] ([id number]) [address] [place] [address] 51857 MAGNESIUMon 06-03-2023 Magnesium [Mass/Vol] 1.9 mg/dL Normal 1.8-2.6 [facility] Comment on above: Performed By: #### C KINDRA, CMP, 42478-8, 34373-2 #### [facility] ([id number]) [address] [place] [address] 03583 Myoglobin [Mass/Vol]on 06-03 SERUM MYOGLOBIN 21.1 ng/mL Normal 14.3-65.8 [facility] Comment on above: Performed By: #### C CORINA ARGUELLES, 43186-5, 45033-8 #### [facility] ([id number]) [address] [place] [address] PROTIME AND INRon 06-03-2023 INR Coag (PPP) [Relative time] 1.8 {INR} High 0.8-1.1 [facility] Comment on above: Performed By: #### C CORINA ARGUELLES, 56852-1, 01182-2 #### [facility] ([id number]) [address] [place] [address] 65301 PT Coag (PPP) [Time] 20.7 s High 9.8-13.2 [facility] Comment on above: Result Comment: NEW REFERENCE RANGE Performed By: #### C CORINA ARGUELLES, 01732-4, 78599-3 #### [facility] ([id number]) [address] [place] [address] 29696 SARS/FLU A+B/RSV by NAAT/Mol ecularon 06-03-2023 SARS/FLU [...] operators who are performing tests using either [employer] or [employer] systems and is limited to laboratories that [...] repeat. Fact Sheet for Healthcare Providers: https://www.fda.gov/me fariha/201147/download Fact Sheet for Patients: https://www.fda.gov/mt fariha/796979/download Normal [facility] Comment on above: Performed By: #### C CORINA ARGUELLES, 44100-1, 16465-9 #### [facility] ([id number]) [address] [place] [address] 69411 THYROID PROFILEon 06-03-2023 Free T4 [Mass/Vol] 1.00 ng/dL Normal 0.61-1.60 [facility] Comment on above: Performed By: #### C CORINA ARGUELLES, 09511-8, 47655-1 #### [facility] ([id number]) [address] [place] [address] 84668 TSH 0.82 uIU/mL Normal 0.49-4.67 [facility] Comment on above: Performed By: #### C CORINA ARGUELLES, 80412-9, 00786-7 #### [facility] ([id number]) [address] [place] [address] 25128 TROPONIN Ion 06-03-2023 Troponin I.cardiac [Mass/Vol] 0.01 ng/mL Normal 0.00-0.04 [facility] Comment on above: Performed By: #### C KINDRA CMP, 00237-6, 56916-0 #### [facility] ([id number]) [address] [place] [address] 28706 URN MACROSCOPIC NURon 2023 BILIRUBIN BRENDEN Negative Normal NEG [facility] Comment on above: Performed By: #### C KINDRA, CMP, 32516-9, 62305-4 #### [facility] ([id number]) [address] [place] [address] 84148 BLOOD/HGB BRENDEN Large Abnormal NEG [facility] Comment on above: Performed By: #### C KINDRA CMP, 10511-2, 23434-3 #### [facility] ([id number]) [address] [place] [address] [place] [address] GLUCOSE BRENDEN Negative Normal NEG [facility] Comment on above: Performed By: #### C KINDRA CMP, 24210-9, 87805-1 #### [facility] ([id number]) [address] [place] [address] 39959 KETONES BRENDEN Negative Normal NEG [facility] Comment on above: Performed By: #### C KINDRA, CMP, 56598-6, 37427-0 #### [facility] ([id number]) [address] [place] [address] [place] [address] LEUKOCYTE ESTERASE BRENDEN Negative Normal NEG [facility] Comment on above: Performed By: #### Nataliia ARGUELLES, CMP, 01024-1, 41010-3 #### [facility] ([id number]) [address] [place] [address] [place] [address] NITRITE BRENDEN Negative Normal NEG [facility] Comment on above: Performed By: #### C BCA, CMP, 37839-0, 94682-4 #### [facility] ([id number]) [address] [place] [address] 95953 PH BRENDEN 6.0 Normal 5.0-8.5 [facility] Comment on above: Performed By: #### C KINDRA, CMP, 14985-7, 43588-9 #### [facility] ([id number]) [address] [place] [address] 30160 PROTEIN BRENDEN >=300 Abnormal NEG [facility] Comment on above: Performed By: #### C KINDRA, CMP, 67576-5, 26829-7 #### [facility] ([id number]) [address] [place] [address] 88342 SPECIFIC GRAVITY BRENDEN 1.015 Normal 1.003-1.035 [facility] Comment on above: Performed By: #### C KINDRA, CORINA, 74239-5, 27282-4 #### [facility] ([id number]) [address] [place] [address] 87241 UROBILINOGEN BRENDEN 0.2 eu/dL Normal <1.1 [facility] Comment on above: Performed By: #### C KINDRA, CMP, 78403-5, 68950-9 #### [facility] ([id number]) [address] [place] [address] 31962 aPTT Coag (PPP) [Time]on aPTT Coag (Bld) [Time] 41 s High 26-37 [facility] Comment on above: Result Comment: NEW REFERENCE RANGE Performed By: #### C KINDRA, CMP, 72629-1, 33016-3 #### [facility] ([id number]) [address] [place] [address] 33716 CBC AND AUTO DIFFon 05-15-19 24 ABSOLUTE BASOPHIL 0.0 X10E9/L Normal 0.0-0.2 [facility] Comment on above: Performed By: #### C KINDRA, CMP, 50627-2 #### [facility] ([id number]) [address] [place] [address] 52656 ABSOLUTE NEUTROPHIL 6.8 X10E9/L High 1.5-6.6 [facility] Comment on above: Performed By: #### C KINDRA, CMP, 10448-0 #### [facility] ([id number]) [address] [place] [address] 71134 Basophils/100 WBC (Bld) 0.4 % Normal [facility] Comment on above: Performed By: #### Nataliia ARGUELLES, CMP, 03317-0 #### [facility] ([id number]) [address] [place] [address] 83983 Eosinophils (Bld) [#/Vol] 0.0 10*3/uL Normal 0.0-0.4 [facility] Comment on above: Performed By: #### Nataliia ARGUELLES, CMP, 03206-4 #### [facility] ([id number]) [address] [place] [address] 05394 Eosinophils/100 WBC (Bld) 0.3 % Normal [facility] Comment on above: Performed By: #### Nataliia ARGUELLES, CMP, 40138-3 #### [facility] ([id number]) [address] [place] [address] 77662 Erythrocyte distribution width (RBC) [Ratio] 13.9 % Normal 11.5-15.0 [facility] Comment on above: Performed By: #### Nataliia ARGUELLES, CMP, 37581-2 #### [facility] ([id number]) [address] [place] [address] 41422 Hematocrit (Bld) [Volume fraction] 38.4 % Normal 35-47 [facility] Comment on above: Performed By: #### Nataliia ARGUELLES, CMP, 35030-0 #### [facility] ([id number]) [address] [place] [address] 22656 Hemoglobin (Bld) [Mass/Vol] 13.0 g/dL Normal 11.7-15.5 [facility] Comment on above: Performed By: #### Nataliia ARGUELLES CMP, 95988-3 #### [facility] ([id number]) [address] [place] [address] 48131 Lymphocytes (Bld) [#/Vol] 0.7 10*3/uL Low 1.0-3.5 [facility] Comment on above: Performed By: #### Nataliia ARGUELLES CMP, 50693-5 #### [facility] ([id number]) [address] [place] [address] 24724 Lymphocytes/100 WBC (Bld) 8.3 % Normal [facility] Comment on above: Performed By: #### Nataliia ARGUELLES CMP, 39946-1 #### [facility] ([id number]) [address] [place] [address] 16361 MCH (RBC) [Entitic mass] 29.7 pg Normal 27-34 [facility] Comment on above: Performed By: #### Nataliia ARGUELLES CMP, 53342-8 #### [facility] ([id number]) [address] [place] [address] 46769 MCHC (RBC) [Mass/Vol] 33.9 g/dL Normal 32-36 [facility] Comment on above: Performed By: #### Nataliia ARGUELLES CMP, 08237-9 #### [facility] ([id number]) [address] [place] [address] 18975 MCV (RBC) [Entitic vol] 88 fL Normal 80-100 [facility] Comment on above: Performed By: #### Nataliia ARGUELLES CMP, 79649-8 #### [facility] ([id number]) [address] [place] [address] 74717 Monocytes (Bld) [#/Vol] 0.7 10*3/uL Normal 0-0.9 [facility] Comment on above: Performed By: #### C KINDRA, CMP, 90670-8 #### [facility] ([id number]) [address] [place] [address] 93393 Monocytes/100 WBC (Bld) 8.6 % Normal [facility] Comment on above: Performed By: #### Nataliia ARGUELLES, CMP, 92247-5 #### [facility] ([id number]) [address] [place] [address] 44776 Neutrophils/100 WBC (Bld) 82.4 % Normal [facility] Comment on above: Performed By: #### Nataliia ARGUELLES, CMP, 43865-3 #### [facility] ([id number]) [address] [place] [address] 29352 Platelet mean volume (Bld) [Entitic vol] 7.2 fL Normal 7-12 [facility] Comment on above: Performed By: #### Nataliia BCA, CMP, 80693-1 #### [facility] ([id number]) [address] [place] [address] 88547 Platelets (Bld) [#/Vol] 288 10*3/uL Normal 150-450 [facility] Comment on above: Performed By: #### Nataliia BCA, CMP, 03572-9 #### [facility] ([id number]) [address] [place] [address] [place] [address] RBC COUNT 4.39 X10E12/L Normal 3.80-5.20 [facility] Comment on above: Performed By: #### Nataliia BCA, CMP, 43588-1 #### [facility] ([id number]) [address] [place] [address] 74765 WBC (Bld) [#/Vol] 8.3 10*3/uL Normal 4.0-11.0 [facility] Comment on above: Performed By: #### C BCA, CMP, 73547-9 #### [facility] ([id number]) [address] [place] [address] 15279 COMPREHENSIVE METABOLIC PANE Gerardo 05-15-2023 Albumin [Mass/Vol] 4.0 g/dL Normal 3.2-5.3 [facility] Comment on above: Performed By: #### C BCA, CMP, 60729-7 #### [facility] ([id number]) [address] [place] [address] 98169 ALP [Catalytic activity/Vol] 61 U/L Normal 39-130 [facility] Comment on above: Performed By: #### C BCA, CMP, 39445-7 #### [facility] ([id number]) [address] [place] [address] 90644 ALT [Catalytic activity/Vol] 17 U/L Normal 0-31 [facility] Comment on above: Performed By: #### C BCA, CMP, 94395-9 #### [facility] ([id number]) [address] [place] [address] 64314 Anion gap [Moles/Vol] 9 mmol/L Normal 5-15 [facility] Comment on above: Performed By: #### C BCA, CMP, 74770-9 #### [facility] ([id number]) [address] [place] [address] 60412 AST [Catalytic activity/Vol] 15 U/L Normal 0-41 [facility] Comment on above: Performed By: #### C BCA, CMP, 65382-6 #### [facility] ([id number]) [address] [place] [address] 78674 Bilirubin [Mass/Vol] 0.6 mg/dL Normal 0.3-1.2 [facility] Comment on above: Performed By: #### C BCA, CMP, 25900-9 #### [facility] ([id number]) [address] [place] [address], [place] [address] Calcium [Mass/Vol] 8.9 mg/dL Normal 8.5-10.5 [facility] Comment on above: Performed By: #### C CORINA ARGUELLES, 93809-5 #### [facility] ([id number]) [address] [place] [address] 95618 Chloride [Moles/Vol] 100 mmol/L Normal 98-109 [facility] Comment on above: Performed By: #### C CORINA ARGUELLES, 82548-3 #### [facility] ([id number]) [address] [place] [address] 74625 CO2 [Moles/Vol] 29 mmol/L Normal 22-32 [facility] Comment on above: Performed By: #### Nataliia ARGEULLES CMP, 64607-2 #### [facility] ([id number]) [address] [place] [address] 01711 Creatinine [Mass/Vol] 1.54 mg/dL High 0.40-1.00 [facility] Comment on above: Result Comment: METH OD TRACEABLE TO IDMS STANDARD Performed By: #### C CORINA ARGUELLES, 18495-6 #### [facility] ([id number]) [address] [place] [address] 98504 GFR/1.73 sq M.predicted among non-blacks MDRD (S/P/Bld) [Vol rate/Area] 46 mL/min/{1.73_m2} Low >59 [facility] Comment on above: Result Comment: Reported eGFR is based on the CKD-EPI 2020 equation that does not use a race coefficient. Performed By: #### C CORINA ARGUELLES, 55423-5 #### [facility] ([id number]) [address] [place] [address] 08499 Glucose [Mass/Vol] 98 mg/dL Normal 65-99 [facility] Comment on above: Performed By: #### Nataliia ARGUELLES CMP, 08813-5 #### [facility] ([id number]) [address] [place] [address] 95668 Potassium [Moles/Vol] 3.9 mmol/L Normal 3.5-5.0 [facility] Comment on above: Performed By: #### Nataliia ARGUELLES CMP, 35301-6 #### [facility] ([id number]) [address] [place] [address] 71505 Protein [Mass/Vol] 7.0 g/dL Normal 6.0-8.0 [facility] Comment on above: Performed By: #### Nataliia ARGUELLES CMP, 07813-1 #### [facility] ([id number]) [address] [place] [address] 69014 Sodium [Moles/Vol] 138 mmol/L Normal 134-146 [facility] Comment on above: Performed By: #### Nataliia ARGUELLES CMP, 54663-5 #### [facility] ([id number]) [address] [place] [address] 90561 Urea nitrogen [Mass/Vol] 27 mg/dL High 5-23 [facility] Comment on above: Performed By: #### Nataliia ARGUELLES CMP, 00970-2 #### [facility] ([id number]) [address] [place] [address] 09509 TROPONIN Ion 05-15-2023 Troponin I.cardiac [Mass/Vol] ng/mL Normal 0.00-0.04 [facility] Comment on above: Performed By: #### Nataliia ARGUELLES CMP, 54719-8 #### [facility] ([id number]) [address] [place] [address] 22102 XR CHEST 1 VWon 05-15-2023 XR CHEST 1 VW XR CHEST 1 VW Single view chest History:chest pain Difficulty breathing, shortness of breath Comparison: 05/10/2023 Findings: Single portable view of the chest. Expiratory changes with bronchovascular crowding. Stable cardiomediastinal silhouette. No focal consolidation large effusion or pneumothorax. Impression: No evidence of acute cardiopulmonary process. Finalized by Jax Jean MD on 05/15/2023 11:43 PM Normal [facility] CBC AND AUTO DIFFon 05-10-19 24 ABSOLUTE BASOPHIL 0.0 X10E9/L Normal 0.0-0.2 [facility] Comment on above: Performed By: #### C CORINA ARGUELLES, 69345-9, 18164-5 #### [facility] ([id number]) [address] [place] [address] 93893 ABSOLUTE NEUTROPHIL 9.4 X10E9/L High 1.5-6.6 [facility] Comment on above: Performed By: #### Nataliia ARGUELLES CMP, 43422-9, 54521-1 #### [facility] ([id number]) [address] [place] [address] 38344 Basophils/100 WBC (Bld) 0.3 % Normal [facility] Comment on above: Performed By: #### Nataliia ARGUELLES CMP, 24173-1, 99028-7 #### [facility] ([id number]) [address] [place] [address] 13084 Eosinophils (Bld) [#/Vol] 0.0 10*3/uL Normal 0.0-0.4 [facility] Comment on above: Performed By: #### Nataliia ARGUELLES CMP, 63794-6, 69200-5 #### [facility] ([id number]) [address] [place] [address] 28691 Eosinophils/100 WBC (Bld) 0.3 % Normal [facility] Comment on above: Performed By: #### Nataliia ARGUELLES CMP, 70361-7, 81185-5 #### [facility] ([id number]) [address] [place] [address] 53237 Erythrocyte distribution width (RBC) [Ratio] 13.9 % Normal 11.5-15.0 [facility] Comment on above: Performed By: #### C CORINA ARGUELLES, 84887-3, 87986-9 #### [facility] ([id number]) [address] [place] [address] 36375 Hematocrit (Bld) [Volume fraction] 36.8 % Normal 35-47 [facility] Comment on above: Performed By: #### Nataliia ARGUELLES CMP, 17240-1, 99684-2 #### [facility] ([id number]) [address] [place] [address] 00328 Hemoglobin (Bld) [Mass/Vol] 12.5 g/dL Normal 11.7-15.5 [facility] Comment on above: Performed By: #### C CORINA ARGUELLES, 41361-4, 51122-9 #### [facility] ([id number]) [address] [place] [address] 37620 Lymphocytes (Bld) [#/Vol] 1.0 10*3/uL Normal 1.0-3.5 [facility] Comment on above: Performed By: #### Nataliia ARGUELLES CMP, 10886-5, 41529-5 #### [facility] ([id number]) [address] [place] [address] 32345 Lymphocytes/100 WBC (Bld) 9.4 % Normal [facility] Comment on above: Performed By: #### Nataliia ARGUELLES CMP, 38029-5, 68454-0 #### [facility] ([id number]) [address] [place] [address] 52271 MCH (RBC) [Entitic mass] 29.7 pg Normal 27-34 [facility] Comment on above: Performed By: #### Nataliia ARGUELLES CMP, 25843-5, 09567-6 #### [facility] ([id number]) [address] [place] [address] 08244 MCHC (RBC) [Mass/Vol] 34.0 g/dL Normal 32-36 [facility] Comment on above: Performed By: #### C KINDRA, CMP, 32163-4, 29546-4 #### [facility] ([id number]) [address] [place] [address] 77189 MCV (RBC) [Entitic vol] 88 fL Normal 80-100 [facility] Comment on above: Performed By: #### Nataliia ARGUELLES, CMP, 38241-0, 93885-0 #### [facility] ([id number]) [address] [place] [address] 32840 Monocytes (Bld) [#/Vol] 0.6 10*3/uL Normal 0-0.9 [facility] Comment on above: Performed By: #### Nataliia ARGUELLES, CMP, 70070-6, 09347-7 #### [facility] ([id number]) [address] [place] [address] 84847 Monocytes/100 WBC (Bld) 5.4 % Normal [facility] Comment on above: Performed By: #### Nataliia ARGUELLES, CMP, 50733-5, 75188-6 #### [facility] ([id number]) [address] [place] [address] 67979 Neutrophils/100 WBC (Bld) 84.6 % Normal [facility] Comment on above: Performed By: #### Nataliia ARGUELLES, CMP, 28729-9, 10366-0 #### [facility] ([id number]) [address] [place] [address] 07879 Platelet mean volume (Bld) [Entitic vol] 7.2 fL Normal 7-12 [facility] Comment on above: Performed By: #### Nataliia ARGUELLES, CMP, 59186-6, 93888-2 #### [facility] ([id number]) [address] [place] [address] 25567 Platelets (Bld) [#/Vol] 309 10*3/uL Normal 150-450 [facility] Comment on above: Performed By: #### C BCA, CMP, 06531-2, 10854-9 #### [facility] ([id number]) [address] [place] [address] 33290 RBC COUNT 4.21 X10E12/L Normal 3.80-5.20 [facility] Comment on above: Performed By: #### C BCA, CMP, 47840-5, 47022-0 #### [facility] ([id number]) [address] [place] [address] 50707 WBC (Bld) [#/Vol] 11.2 10*3/uL High 4.0-11.0 [facility] Comment on above: Performed By: #### C BCA, CMP, 08266-9, 80847-5 #### [facility] ([id number]) [address] [place] [address] 27208 COMPREHENSIVE METABOLIC PANE Gerardo 05-10-2023 Albumin [Mass/Vol] 3.8 g/dL Normal 3.2-5.3 [facility] Comment on above: Performed By: #### C BCA, CMP, 46478-0, 46590-7 #### [facility] ([id number]) [address] [place] [address] 21834 ALP [Catalytic activity/Vol] 50 U/L Normal 39-130 [facility] Comment on above: Performed By: #### C BCA, CMP, 52286-1, 44887-2 #### [facility] ([id number]) [address] [place] [address] 63046 ALT [Catalytic activity/Vol] 15 U/L Normal 0-31 [facility] Comment on above: Performed By: #### C BCA, CMP, 04590-6, 81004-3 #### [facility] ([id number]) [address] [place] [address] 61786 Anion gap [Moles/Vol] 9 mmol/L Normal 5-15 [facility] Comment on above: Performed By: #### C BCA, CMP, 37258-9, 37398-2 #### [facility] ([id number]) [address] [place] [address] 30843 AST [Catalytic activity/Vol] 19 U/L Normal 0-41 [facility] Comment on above: Performed By: #### C BCA, CMP, 83082-5, 05327-6 #### [facility] ([id number]) [address] [place] [address] 82804 Bilirubin [Mass/Vol] 0.6 mg/dL Normal 0.3-1.2 [facility] Comment on above: Performed By: #### C BCA, CMP, 76920-0, 00053-6 #### [facility] ([id number]) [address] [place] [address] 06883 Calcium [Mass/Vol] 8.3 mg/dL Low 8.5-10.5 [facility] Comment on above: Performed By: #### C BCA, CMP, 65377-6, 77433-1 #### [facility] ([id number]) [address] [place] [address] 29571 Chloride [Moles/Vol] 99 mmol/L Normal 98-109 [facility] Comment on above: Performed By: #### C BCA, CMP, 70773-9, 06466-4 #### [facility] ([id number]) [address] [place] [address] 17195 CO2 [Moles/Vol] 29 mmol/L Normal 22-32 [facility] Comment on above: Performed By: #### C BCA, CMP, 98139-1, 87993-2 #### [facility] ([id number]) [address] [place] [address] 85767 Creatinine [Mass/Vol] 1.67 mg/dL High 0.40-1.00 [facility] Comment on above: Result Comment: METH OD TRACEABLE TO IDMS STANDARD Performed By: #### C CORINA ARGUELLES, 56944-9, 26659-7 #### [facility] ([id number]) [address] [place] [address] 97878 GFR/1.73 sq M.predicted among non-blacks MDRD (S/P/Bld) [Vol rate/Area] 42 mL/min/{1.73_m2} Low >59 [facility] Comment on above: Result Comment: Reported eGFR is based on the CKD-EPI 2020 equation that does not use a race coefficient. Performed By: #### C CORINA ARGUELLES, 01662-7, 30304-0 #### [facility] ([id number]) [address] [place] [address] 90442 Glucose [Mass/Vol] 103 mg/dL High 65-99 [facility] Comment on above: Performed By: #### C CORINA ARGUELLES, 82392-8, 65899-4 #### [facility] ([id number]) [address] [place] [address] 48047 Potassium [Moles/Vol] 3.5 mmol/L Normal 3.5-5.0 [facility] Comment on above: Performed By: #### C CORINA ARGUELLES, 93540-0, 86158-0 #### [facility] ([id number]) [address] [place] [address] 92987 Protein [Mass/Vol] 6.5 g/dL Normal 6.0-8.0 [facility] Comment on above: Performed By: #### C CORINA ARGUELLES, 29825-4, 36107-4 #### [facility] ([id number]) [address] [place] [address] 05851 Sodium [Moles/Vol] 137 mmol/L Normal 134-146 [facility] Comment on above: Performed By: #### C CORINA ARGUELLES, 92788-7, 44199-8 #### [facility] ([id number]) [address] [place] [address] 59878 Urea nitrogen [Mass/Vol] 36 mg/dL High 5-23 [facility] Comment on above: Performed By: #### C CORINA ARGUELLES, 40614-2, 59024-2 #### [facility] ([id number]) [address] [place] [address] 68450 Fibrin D-dimer DDU (PPP) [Ma ss/Vol]on 05-10-2023 D DIMER <150 Normal <255 [facility] Comment on above: Result Comment: Results <255 ng/mL DDU: The presence of a VTE can safely be excluded with a negative D-Dimer result and Wells score. A negative result doesn't exclude the possibility of DIC. The test be repeated along with other diagnostic tests if the patient's symptoms persist or worsen. [email or web address] Performed By: #### C KINDRACORINA, 70280-7, 90591-4 #### [facility] ([id number]) [address] [place] [address] 32782 TROPONIN Ion 05-10-2023 Troponin I.cardiac [Mass/Vol] 0.01 ng/mL Normal 0.00-0.04 [facility] Comment on above: Performed By: #### 1 0839-9 #### [facility] ([id number]) [address] [place] [address] 65951 Troponin I.cardiac [Mass/Vol] 0.01 ng/mL Normal 0.00-0.04 [facility] Comment on above: Performed By: #### C CORINA ARGUELLES, 31160-8, 83167-1 #### [facility] ([id number]) [address] [place] [address] 25405 XR CHEST 2 VWSon 05-10-2023 XR CHEST [...] Callaway MD on 05/10/2023 10:58 AM Normal [facility] CBC AND AUTO DIFFon 05-03-19 24 ABSOLUTE BASOPHIL 0.0 X10E9/L Normal 0.0-0.2 [facility] Comment on above: Performed By: #### 4 485-9, CMP, CBCA, 4498-2, 1987-08, 80274-6 #### [facility] ([id number]) [address], [address] [place] [address] ABSOLUTE NEUTROPHIL 5.5 X10E9/L Normal 1.5-6.6 [facility] Comment on above: Performed By: #### 4 485-9, CMP, CBCA, 4498-2, 1987-08, 38344-8 #### [facility] ([id number]) [address], [address] [address] Basophils/100 WBC (Bld) 0.3 % Normal [facility] Comment on above: Performed By: #### 4 485-9, CMP, CBCA, 8-, 1987-08, 11597-9 #### [facility] ([id number]) [address], [address] [place] [address] Eosinophils (Bld) [#/Vol] 0.0 10*3/uL Normal 0.0-0.4 [facility] Comment on above: Performed By: #### 4 485-9, CMP, CBCA, 4498-2, 1987-08, 32652-6 #### [facility] ([id number]) [address], [address] [place] [address] Eosinophils/100 WBC (Bld) 0.5 % Normal [facility] Comment on above: Performed By: #### 4 485-9, CMP, CBCA, 8-2, 1987-08, 59330-7 #### [facility] ([id number]) [address], [address] [place] [address] Erythrocyte distribution width (RBC) [Ratio] 13.3 % Normal 11.5-15.0 [facility] Comment on above: Performed By: #### 4 485-9, CMP, CBCA, 4497-2, 1987-08, 98767-9 #### [facility] ([id number]) [address], [address] [place] [address] Hematocrit (Bld) [Volume fraction] 36.0 % Normal 35-47 [facility] Comment on above: Performed By: #### 4 485-9, CMP, CBCA, 4497-05, 1987-08, 69358-4 #### [facility] ([id number]) [address], [address] [place] [address] Hemoglobin (Bld) [Mass/Vol] 12.3 g/dL Normal 11.7-15.5 [facility] Comment on above: Performed By: #### 4 485-9, CMP, CBCA, 4497-05, 1987-08, 25905-4 #### [facility] ([id number]) [address], [address] [place] [address] Lymphocytes (Bld) [#/Vol] 1.9 10*3/uL Normal 1.0-3.5 [facility] Comment on above: Performed By: #### 4 485-9, CMP, CBCA, 4497-, 1987-08, 36720-2 #### [facility] ([id number]) [address], [address] [place] [address] Lymphocytes/100 WBC (Bld) 23.5 % Normal [facility] Comment on above: Performed By: #### 4 485-9, CMP, CBCA, 4498-2, 1987-08, 23537-8 #### [facility] ([id number]) [address], [address] [place] [address] MCH (RBC) [Entitic mass] 30.4 pg Normal 27-34 [facility] Comment on above: Performed By: #### 4 485-9, CMP, CBCA, 449-2, 1987-08, 93937-9 #### [facility] ([id number]) [address], [address] [place] [address] MCHC (RBC) [Mass/Vol] 34.1 g/dL Normal 32-36 [facility] Comment on above: Performed By: #### 4 485-9, CMP, CBCA, 4497-2, 1987-08, 03609-1 #### [facility] ([id number]) [address], [address] [place] [address] MCV (RBC) [Entitic vol] 89 fL Normal 80-100 [facility] Comment on above: Performed By: #### 4 485-9, CMP, CBCA, 4497-05, 1987-08, 28697-8 #### [facility] ([id number]) [address], [address] [place] [address] Monocytes (Bld) [#/Vol] 0.7 10*3/uL Normal 0-0.9 [facility] Comment on above: Performed By: #### 4 485-9, CMP, CBCA, 4498-2, 1987-08, 46838-8 #### [facility] ([id number]) [address] [address] [place] [address] Monocytes/100 WBC (Bld) 8.3 % Normal [facility] Comment on above: Performed By: #### 4 485-9, CMP, CBCA, 449-2, 1987-08, 79563-6 #### [facility] ([id number]) [address] [address] [place] [address] Neutrophils/100 WBC (Bld) 67.4 % Normal [facility] Comment on above: Performed By: #### 4 485-9, CMP, CBCA, 4498-2, 1987-08, 88209-7 #### [facility] ([id number]) [address] [facility] [address] [place] [address] Platelet mean volume (Bld) [Entitic vol] 7.6 fL Normal 7-12 [facility] Comment on above: Performed By: #### 4 485-9, CMP, CBCA, 4498-2, 1987-08, 36338-5 #### [facility] ([id number]) [address] [address] [place] [address] Platelets (Bld) [#/Vol] 322 10*3/uL Normal 150-450 [facility] Comment on above: Performed By: #### 4 485-9, CMP, CBCA, 4498-2, 1987-08, 45721-7 #### [facility] ([id number]) [address] [address] [place] [address] RBC COUNT 4.04 X10E12/L Normal 3.80-5.20 [facility] Comment on above: Performed By: #### 4 485-9, CMP, CBCA, 4498-2, 1987-08, 12516-5 #### [facility] ([id number]) [address] [address] [place] [address] WBC (Bld) [#/Vol] 8.2 10*3/uL Normal 4.0-11.0 [facility] Comment on above: Performed By: #### 4 485-9, CMP, CBCA, 4498-2, 1987-08, 93460-5 #### [facility] ([id number]) [address] [address] [place] [address] COMPREHENSIVE METABOLIC PANE Gerardo 05[birth year]2023 Albumin [Mass/Vol] 3.9 g/dL Normal 3.2-5.3 [facility] Comment on above: Performed By: #### 4 485-9, CMP, CBCA, 4498-2, 1987-08, 27572-4 #### [facility] ([id number]) [address] [place] [address] ALP [Catalytic activity/Vol] 51 U/L Normal 39-130 [facility] Comment on above: Performed By: #### 4 485-9, CMP, CBCA, 4498-2, 1987-08, 51739-6 #### [facility] ([id number]) [address] [place] [address] ALT [Catalytic activity/Vol] 9 U/L Normal 0-31 [facility] Comment on above: Performed By: #### 4 485-9, CMP, CBCA, 4498-2, 1987-08, 69581-7 #### [facility] ([id number]) [address] [place] [address] Anion gap [Moles/Vol] 10 mmol/L Normal 5-15 [facility] Comment on above: Performed By: #### 4 485-9, CMP, CBCA, 4498-2, 1987-08, 26011-4 #### [facility] ([id number]) [address] [place] [address] AST [Catalytic activity/Vol] 12 U/L Normal 0-41 [facility] Comment on above: Performed By: #### 4 485-9, CMP, CBCA, 4498-2, 1987-08, 93451-7 #### [facility] ([id number]) [address], [address] [place] [address] Bilirubin [Mass/Vol] 0.2 mg/dL Low 0.3-1.2 [facility] Comment on above: Performed By: #### 4 485-9, CMP, CBCA, 4498-2, 1987-08, 02687-4 #### [facility] ([id number]) [address], [address] [place] [address] Calcium [Mass/Vol] 8.7 mg/dL Normal 8.5-10.5 [facility] Comment on above: Performed By: #### 4 485-9, CMP, CBCA, 4498-2, 1987-08, 03802-8 #### [facility] ([id number]) [address], [address] [place] [address] Chloride [Moles/Vol] 102 mmol/L Normal 98-109 [facility] Comment on above: Performed By: #### 4 485-9, CMP, CBCA, 4498-2, 1987-08, 31618-0 #### [facility] ([id number]) [address], [address] [place] [address] CO2 [Moles/Vol] 31 mmol/L Normal 22-32 [facility] Comment on above: Performed By: #### 4 485-9, CMP, CBCA, 4498-2, 1987-08, 06129-4 #### [facility] ([id number]) [address], [address] [place] [address] Creatinine [Mass/Vol] 1.56 mg/dL High 0.40-1.00 [facility] Comment on above: Result Comment: METH OD TRACEABLE TO IDMS STANDARD Performed By: #### 4 485-9, CMP, CBCA, 4498-2, 1987-08, 43663-4 #### [facility] ([id number]) [address], [address] [place] [address] GFR/1.73 sq M.predicted among non-blacks MDRD (S/P/Bld) [Vol rate/Area] 45 mL/min/{1.73_m2} Low >59 [facility] Comment on above: Result Comment: Reported eGFR is based on the CKD-EPI 2020 equation that does not use a race coefficient. Performed By: #### 4 485-9, CMP, CBCA, 4498-2, 1987-08, 43509-7 #### [facility] ([id number]) [address], [address] [place] [address] Glucose [Mass/Vol] 112 mg/dL High 65-99 [facility] Comment on above: Performed By: #### 4 485-9, CMP, CBCA, 4498-2, 1987-08, 66353-0 #### [facility] ([id number]) [address], [address] [place] [address] Potassium [Moles/Vol] 3.5 mmol/L Normal 3.5-5.0 [facility] Comment on above: Performed By: #### 4 485-9, CMP, CBCA, 4498-2, 1987-08, 38118-5 #### [facility] ([id number]) [address], [address] [place] [address] Protein [Mass/Vol] 6.3 g/dL Normal 6.0-8.0 [facility] Comment on above: Performed By: #### 4 485-9, CMP, CBCA, 4498-2, 1987-08, 62194-6 #### [facility] ([id number]) [address], [address] [place] [address] Sodium [Moles/Vol] 143 mmol/L Normal 134-146 [facility] Comment on above: Performed By: #### 4 485-9, CMP, CBCA, 4498-2, 1987-08, 06864-5 #### [facility] ([id number]) [address], [address] [place] [address] Urea nitrogen [Mass/Vol] 25 mg/dL High 5-23 [facility] Comment on above: Performed By: #### 4 485-9, CMP, CBCA, 4498-2, 1987-08, 14366-6 #### [facility] ([id number]) [address], [address] [place] [address] CRP [Mass/Vol]on 05-03-2023 C REACTIVE PROTEIN 0.1 mg/dL Normal 0.000-0.744 [facility] Comment on above: Performed By: #### 4 485-9, CMP, CBCA, 4498-2, 1987-08, 24813-8 #### [facility] ([id number]) [address], [facility] [address] [place] [address] Complement C3 [Mass/Vol]on 0 05-03-2023 COMPLEMENT C3 124 mg/dL Normal 86-184 [facility] Comment on above: Performed By: #### 4 485-9, CMP, CBCA, 4498-2, 1987-08, 87758-8 #### [facility] ([id number]) [address], [address] [place] [address] Complement C4 [Mass/Vol]on 0 05-03-2023 COMPLEMENT C4 21 mg/dL Normal 16-47 [facility] Comment on above: Performed By: #### 4 485-9, CMP, CBCA, 4498-2, 1987-08, 48802-6 #### [facility] ([id number]) [address] [place] [address] ESR Photometric method (Bld) [Velocity]on 05-03-2023 ESR, ERYTHROCYTE SEDIMENTATION RATE 14 mm/h Normal 0-20 [facility] Comment on above: Performed By: #### 4 485-9, CMP, CBCA, 4498-2, 1987-08, 28319-1 #### [facility] ([id number]) [address], [address] [place] [address] PROTEIN CREAT RATIOon 2023 RANDOM URINE PROTEIN 3040 mg/L High <120 [facility] Comment on above: Performed By: #### U PCR #### [facility] ([id number]) [address], [address] [place] [address] U/PRO/PLUG CUTTING MACHINE OPERATOR RATIO CALC 1.59 High <0.2 [facility] Comment on above: Result Comment: Neph rotic Syndrome is associated with ratios >3.5 Performed By: #### U PCR #### [facility] ([id number]) [address], [address] [place] [address] URINE CREATININE,RDM 190.94 mg/dL Normal [facility] Comment on above: Performed By: #### U PCR #### [facility] ([id number]) [address], [address] [place] [address] URINALYSISon 05-03-2023 Bilirubin Ql (U) Negative Normal NEG [facility] Comment on above: Performed By: #### U PCR #### [facility] ([id number]) [address], [address] [place] [address] BLOOD/HGB Large Abnormal NEG [facility] Comment on above: Performed By: #### U PCR #### [facility] ([id number]) [address], [address] [place] [address] Color (U) YELLOW Normal YELLOW [facility] Comment on above: Performed By: #### U PCR #### [facility] ([id number]) [address], [address] [place] [address] Glucose Ql (U) Negative Normal NEG [facility] Comment on above: Performed By: #### U PCR #### [facility] ([id number]) [address], [address] [place] [address] Ketones Ql (U) Negative Normal NEG [facility] Comment on above: Performed By: #### U PCR #### [facility] ([id number]) [address], [address] [place] [address] Leukocyte esterase Test strip Ql (U) Negative Normal NEG [facility] Comment on above: Performed By: #### U PCR #### [facility] ([id number]) [address], [address] [place] [address] MUCOUS PRESENT Abnormal NONE [facility] Comment on above: Performed By: #### U PCR #### [facility] ([id number]) [address], [address] [place] [address] Nitrite Ql (U) Negative Normal NEG [facility] Comment on above: Performed By: #### U PCR #### [facility] ([id number]) [address], [address] [place] [address] pH (U) 6.0 [pH] Normal 5.0-8.5 [facility] Comment on above: Performed By: #### U PCR #### [facility] ([id number]) [address], [address] [place] [address] Protein Ql (U) 200 mg/dL Abnormal NEG [facility] Comment on above: Performed By: #### U PCR #### [facility] ([id number]) [address], [address] [place] [address] R.B.CELLS 69 /hpf High 0-5 [facility] Comment on above: Performed By: #### U PCR #### [facility] ([id number]) [address], [address] [place] [address] Specific gravity (U) [Rel density] 1.019 Normal 1.003-1.035 [facility] Comment on above: Performed By: #### U PCR #### [facility] ([id number]) [address], [address] [place] [address] SQUAMOUS EPITHELIUM <1 Normal 0-5 [facility] Comment on above: Performed By: #### U PCR #### [facility] ([id number]) [address], [address] [place] [address] TURBIDITY HAZY Abnormal CLEAR [facility] Comment on above: Performed By: #### U PCR #### [facility] ([id number]) [address], [address] [place] [address] Urobilinogen (U) [Mass/Vol] mg/dL Normal <1.1 [facility] Comment on above: Performed By: #### U PCR #### [facility] ([id number]) [address], [address] [place] [address] W.B.CELLS 0 /hpf Normal 0-5 [facility] Comment on above: Performed By: #### U PCR #### [facility] ([id number]) [address] [place] [address], [address] [place] [address] Lab Reportson 04-17-2023 Lab Reports [id number] TIFF Normal [facility] 29on 04-06-2023 29 Addended by: NO OVALLE on: 04/10/2023 12:12 PM Modules accepted: Orders Normal [facility] CHLAMYDIA TRACHOMATIS AND NE ISSERIA GONORRHEA, TMAon 04-06-2023 CHLAMYDIA TRACHOMATIS DNA PROBE (PRESENCE) IN UNSP SPEC Negative Normal Negative [facility] Comment on above: Result Comment: No C hlamydia trachomatis rRNA Detected. The Aptima Combo 2 Assay is a FDA approved target amplification nucleic acid probe test that utilizes target capture for the in vitro qualitative detection and differentiation of ribosomal RNA (rRNA) from Chlamydia trachomatis (CT) and/or Neisseria gonorrhoeae (GC) to aid the diagnosis of chlamydial and/or gonococcal urogenital disease using the [employer] System. The Aptima Combo 2 Assay involves target capture, target amplification by Demolition Hammer Operator-Mediated Amplification (TMA), and the detection of the amplification products (amplicon) by the Hybridization Protection Assay (HPA). The internal process controls of the [employer] System monitor the target capture, amplification, and detection steps of the assay, this is not intended to control for sampling adequacy. Performed By: #### L [id number] ####[facility] ([facility])[address] [place] [address] NEISSERIA GONORRHOEAE DNA PROBE (PRESENCE) IN UNSP SPEC Negative Normal Negative [facility] Comment on above: Result Comment: No N eisseria gonorrhoeae rRNA Detected. The Aptima Combo 2 Assay is a FDA approved target amplification nucleic acid probe test that utilizes target capture for the in vitro qualitative detection and differentiation of ribosomal RNA (rRNA) from Chlamydia trachomatis (CT) and/or Neisseria gonorrhoeae (GC) to aid the diagnosis of chlamydial and/or gonococcal urogenital disease using the [employer] System. The Aptima Combo 2 Assay involves target capture, target amplification by Demolition Hammer Operator-Mediated Amplification (TMA), and the detection of the amplification products (amplicon) by the Hybridization Protection Assay (HPA). The internal process controls of the [employer] System monitor the target capture, amplification, and detection steps of the assay, this is not intended to control for sampling adequacy. Performed By: #### L [id number] ####[facility] ([facility])[address] [place] [address] FTA ABSon 04-06-2023 FTA-ABS Reactive Abnormal Nonreactive, 1+, 2+, 3+, 4+, Inconclusive [facility] Comment on above: Performed By: #### L [id number] #### [facility] ([facility]) [address] [place] [address] HIV COMBO 4Gon 04-06-2023 HIV COMBO 4G Negative Normal Negative [facility] Comment on above: Performed By: #### L [id number] #### [facility] ([facility]) [address] [place] [address] Office Visiton 04-06-2023 Follow-up visit [id number] Blanca Rudolph 1990 F Date Provider Department Center 04/06/2023 ORIN [facility] Ena Heal No family history on file Level of Service:91880 [place] OFFICE/OUTPATIENT ESTABLISHED MOD MDM 30-39 MIN Normal [facility] RPRon 04-06-2023 REAGIN AB PRESENCE IN SERUM BY RPR Reactive Abnormal Nonreactive [facility] Comment on above: Performed By: #### L [id number] #### [facility] ([facility]) [address] [place] [address] RPR QUANTITATIVEon 3 RPR QUANT 1:8 High <1:1 [facility] Comment on above: Result Comment: The syphilis screen is a treponemal assay; patients with previously treated syphilis could be reactive on this assay, but nonreactive on the RPR Quant assay. Performed By: #### L [id number] #### [facility] ([facility]) [address] [place] [address] Orders Onlyon 03-19-2023 Orders Only [id number] Blanca Rudolph 1990 F Date Provider Department Center 03/19/2023 [facility] Ena Heal No family history on file Normal [facility] 36on 02-09-2023 36 Patient would like prescription mailed to him. [facility] verified [facility]. Normal [facility] Refillon 02-09-2023 Refill [id number] Blanca Rudolph 1990 F Date Provider Department Center 02/09/2023 JEFFERY AVITIA [facility] Ena [facility]al No family history on file Reason for Visit and Comments: Med Refill [[id number]] Normal [facility] CHEMISTRYOrdered By: SYSTEM SYSTEM on 08-10-2022 Anion [...] rate/Area] mL/min/1.73 m2 Normal >=59mL/min/1.7 3 m2 FT Chem S GFR/1.73 sq M.predicted among non-blacks MDRD (S/P/Bld) [Vol rate/Area] mL/min/1.73 m2 Normal >=59mL/min/1.7 3 m2 [facility] Chem S Glucose [Mass/Vol] 95 mg/dL Normal 55 - 199 mg/dL FT Remisol Magnesium [Mass/Vol] 1.8 mg/dL Normal 1.3 - 2 .4 mg/dL FT Remisol Potassium [Moles/Vol] 3.6 mmol/L Normal 3.5 - 5.3 mmol/L FT Remisol Sodium [Moles/Vol] 138 mmol/L Normal 135 - 145 mmol/L FT Remisol Urea nitrogen [Mass/Vol] 12 mg/dL Normal 5 - 21 mg/dL FT Remisol Urea nitrogen/Creatinine [Mass ratio] 17 mg/mg Normal 10 - 20 FT Remisol CHEMISTRYOrdered By: Lab ROP User on 07-11-2022 Glucose [Mass/Vol] 82 mg/dL Normal 55 - 99 mg/dL FTM C POC Subsection Comment on above: Result Comment: Erin nida Meter POC Device SN [id number] Invalid Interpretation Code FT POC Subsection POC User ID [id number] Invalid Interpretation Code FT POC Subsection POC Username CHRISTOPHER PANCHAL Invalid Interpretation Code [facility] POC Subsection PAP ACOG PANEL 1: 30 to 65on 03-23-2022 . . Normal [facility] Comment on above: Result Comment: Perf ormed at: WB Performed By: #### 4 [id number] #### [facility] [address] [address] [address] Naomi Irizarry Age Gdln ACOG Testing 30-65 Normal [facility] Comment on above: Performed By: #### 4 [id number] #### [facility] [address] [address] [address] Naomi Irizarry DIAGNOSIS: Comment Normal [facility] Comment on above: Result Comment: NEGA TIVE FOR INTRAEPITHELIAL LESION OR MALIGNANCY. Performed at: WB Performed By: #### 4 [id number] #### [facility] [address] [address] [address] Naomi Irizarry HPV Aptima Positive Abnormal Negative [facility] Comment on above: Result Comment: This nucleic acid amplification test detects fourteen high-risk HPV types (16,18,31,33,35,39,45,51,52,56,58,59,66,68) without differentiation. Performed at: =G Performed By: #### 4 [id number] #### [facility] [address] [address] [address] Naomi Irizarry HPV Genotype 16 Negative Normal Negative [facility] Comment on above: Performed By: #### 4 [id number] #### [facility] [address] [address] [address] Naomi Irizarry HPV Genotype 18,45 Negative Normal Negative [facility] Comment on above: Performed By: #### 4 [id number] #### [facility] [address] [address] [address] Naomi Irizarry HPV Genotype Reflex Comment Normal [facility] Comment on above: Result Comment: Angelica sarmiento, see HPV Genotype results. Performed at: WB Performed By: #### 4 [id number] #### [facility] [address] [address] [address] a[address]omi Irizarry Methodology: Comment Normal [facility] Comment on above: Result Comment: This liquid based ThinPrep(R) pap test was screened with the use of an image guided system. Performed at: WB Performed By: #### 4 [id number] #### [facility] [address] [place] [address] Dr. Naomi Irizarry Note: Comment Normal [facility] Comment on above: Result Comment: The Pap smear is a screening test designed to aid in the detection of premalignant and malignant conditions of the uterine cervix. It is not a diagnostic procedure and should not be used as the sole means of detecting cervical cancer. Both false-positive and false-negative reports do occur. . Performed at: WB Performed By: #### 4 [id number] #### [facility] [address] [place] [address] Dr. Naomi Irizarry Performed by: Comment Normal [facility] Comment on above: Result Comment: Tong Boone, Chess Instructor (ASCP) Performed at: WB Performed By: #### 4 [id number] #### [facility] [address] [address] [address] Naomi Irizarry Specimen adequacy: Comment Normal [facility] Comment on above: Result Comment: Sati sfactory for evaluation. Endocervical and/or squamous metaplastic cells (endocervical component) are present. Performed at: WB Performed By: #### 4 [id number] #### [facility] [address] [place] [address] Dr. Naomi Irizarry CHEMISTRYOrdered By: SYSTEM SYSTEM [...] rate/Area] mL/min/1.73 m2 Normal >=59mL/min/1.7 3 m2 [facility] Chem S GFR/1.73 sq M.predicted among non-blacks MDRD (S/P/Bld) [Vol rate/Area] mL/min/1.73 m2 Normal >=59mL/min/1.7 3 m2 [facility] Chem S Globulin (S) [Mass/Vol] 3.9 g/dL Normal 1.4 - 4.0 gm/dL FT Remisol Glucose [Mass/Vol] 82 mg/dL Normal 55 - 199 mg/dL [facility] Remisol Lipase [Catalytic activity/Vol] 34 U/L Normal [...] ratio] 14 mg/mg Normal 10 - 20 FT Remisol HEMATOLOGYOrdered By: Everette Morocho on [...] 4.7 E12/L Normal 4.3 - 5.9 E12/L FT HemeAutoSS WBC corrected for nucl RBC Auto (Bld) [#/Vol] 8.1 E9/L Normal 4.0 - 11.0 E9/L FT HemeAutoSS Vital Signs Date Time Vital Sign Value Performing Clinician Facility 08-23-2023 12:35-0400 Blood Pressure Location Spring Sarmini [facility] 08-23-2023 12:35-0400 Diastolic blood pressure 90 mm[Hg] Spring Sarmini [facility] 08-23-2023 12:35-0400 Heart rate 80 /min Spring Sarmini [facility] 08-23-2023 12:35-0400 Respiratory rate 18 /min Spring Sarmini [facility] 08-23-2023 12:35-0400 Systolic blood pressure 142 mm[Hg] Spring Sarmini [facility] 08-02-2023 09:24-0400 Body height 170.2 cm Maylin Portillo DO Work Phone: [employer] 08-02-2023 09:24-0400 Body mass index (BMI) [Ratio] 40.22 kg/m2 Maylin Portillo DO Work Phone: [employer] 08-02-2023 09:24-0400 Body weight 116.48 kg Maylin Portillo DO Work Phone: [facility] [employer] 08-02-2023 09:24-0400 Diastolic blood pressure 74 mm[Hg] Maylin Portillo DO Work Phone: [facility] [employer] [facility] 08-02-2023 09:24-0400 Heart rate 83 /min Maylin Portillo DO Work Phone: [facility] [employer] 08-02-2023 09:24-0400 SaO2% (BldA) [Mass fraction] 97 % Maylin Portillo DO Work Phone: [facility] [employer] [facility] 08-02-2023 09:24-0400 Systolic blood pressure 116 mm[Hg] Maylin Portillo DO Work Phone: [facility] [employer] [facility] 07-31-2023 12:53-0400 Body height 172.7 cm Sherman Calle MD Work Phone: [facility] [employer] [facility] 07-31-2023 12:53-0400 Body mass index (BMI) [Ratio] 39.24 kg/m2 Sherman Calle MD Work Phone: [facility] [employer] [facility] 07-31-2023 12:53-0400 Body weight 117.03 kg Sherman Calle MD Work Phone: [facility] [employer] [facility] 07-31-2023 12:53-0400 Diastolic blood pressure 78 mm[Hg] Sherman Calle MD Work Phone: [facility] [employer] [facility] 07-31-2023 12:53-0400 Respiratory rate 18 /min Sherman Calle MD Work Phone: [facility] [employer] [facility] 07-31-2023 12:53-0400 Systolic blood pressure 140 mm[Hg] Sherman Calle MD Work Phone: [facility] [employer] [facility] 07-12-2023 09:27-0400 Diastolic blood pressure 88 mm[Hg] Sade Rosas MD Work Phone: [facility] 07-12-2023 09:27-0400 Heart rate 81 /min Sade Rosas MD Work Phone: [facility] 07-12-2023 09:27-0400 Systolic blood pressure 139 mm[Hg] Sade Rosas MD Work Phone: [facility] 07-12-2023 09:21-0400 Body height 172.7 cm Sade Rosas MD Work Phone: [facility] 07-12-2023 09:21-0400 Body mass index (BMI) [Ratio] 39.56 kg/m2 Sade Rosas MD Work Phone: [facility] 07-12-2023 09:21-0400 Body weight 118.03 kg Sade Rosas MD Work Phone: [facility] 07-12-2023 09:21-0400 SaO2% (BldA) [Mass fraction] 97 % Sade Rosas MD Work Phone: [facility] 07-05-2023 09:57-0500 Body height 172.7 cm Pasquale MICHAUD-C Work Phone: [facility] 07-05-2023 09:57-0500 Body mass index (BMI) [Ratio] 38.93 kg/m2 Pasquale Alexander PA-C Work Phone: [facility] 07-05-2023 09:57-0500 Body weight 116.12 kg Pasquale MICHAUD-C Work Phone: [facility] 07-05-2023 09:57-0500 Diastolic blood pressure 83 mm[Hg] Pasquale MICHAUD-C Work Phone: [facility] 07-05-2023 09:57-0500 Heart rate 72 /min Pasquale Alexander PA-C Work Phone: [facility] 07-05-2023 09:57-0500 Systolic blood pressure 134 mm[Hg] Pasquale MICHAUD-C Work Phone: [facility] [employer] [facility] 07-04-2023 07:56-0500 Body height 172.7 cm Sherman Calle MD Work Phone: [facility] [employer] [facility] 07-04-2023 07:56-0500 Body mass index (BMI) [Ratio] 39.54 kg/m2 Sherman Calle MD Work Phone: [facility] [employer] [facility] 07-04-2023 07:56-0500 Body weight 117.94 kg Sherman Calle MD Work Phone: [facility] [employer] [facility] 07-04-2023 07:56-0500 Diastolic blood pressure 78 mm[Hg] Sherman Calle MD Work Phone: [facility] 07-04-2023 07:56-0500 Respiratory rate 18 /min Sherman Calle MD Work Phone: [facility] 07-04-2023 07:56-0500 Systolic blood pressure 128 mm[Hg] Sherman Calle MD Work Phone: [facility] 09-05-2022 09:21-0400 Blood Pressure Location CYNTHIA GALLARDO [facility] 09-05-2022 09:21-0400 Diastolic blood pressure 74 mm[Hg] CYNTHIA MCCALLRY [facility] 09-05-2022 09:21-0400 Heart rate 68 /min CYNTHIA PAULINA [facility] 09-05-2022 09:21-0400 Respiratory rate 16 /min CYNTHIA PAULINA [facility] 09-05-2022 09:21-0400 Systolic blood pressure 138 mm[Hg] CYNTHIA GALLARDO [facility] 08-10-2022 12:45-0400 Blood Pressure Location Katrin Resendiz [facility] 08-10-2022 12:45-0400 Body temperature 97.7 [degF] Katrin eRsendiz [facility] 08-10-2022 12:45-0400 Diastolic blood pressure 72 mm[Hg] Katrin Resendiz [facility] 08-10-2022 12:45-0400 Heart rate 79 /min Katrin Resendiz [facility] 08-10-2022 12:45-0400 Systolic blood pressure 106 mm[Hg] Katrin Resendiz [facility] 07-17-2022 11:22-0400 Blood Pressure Location Miki Mauricio [facility] [place] 07-17-2022 11:22-0400 Diastolic blood pressure 78 mm[Hg] Miki Mauricio [facility] [place] 07-17-2022 11:22-0400 Heart rate 68 /min Miki Mauricio [facility] [place] 07-17-2022 11:22-0400 Respiratory rate 16 /min Miki Mauricio [facility] [place] 07-17-2022 11:22-0400 Systolic blood pressure 122 mm[Hg] Miki Mauricio [facility] [place] 07-11-2022 12:14-0400 Heart rate 74 /min Miki Mauricio [facility] 07-11-2022 12:14-0400 SaO2% (BldA) [Mass fraction] 97 % Miki Mourany [facility] 07-11-2022 12:14-0400 Body temperature 98.06 [degF] Miki Mourany [facility] 07-11-2022 12:13-0400 Diastolic blood pressure 79 mm[Hg] Miki Mourany [facility] 07-11-2022 12:13-0400 Mean blood pressure 94 mm[Hg] Miki Mourany [facility] 07-11-2022 12:13-0400 Systolic blood pressure 125 mm[Hg] Miki Mourany [facility] 07-11-2022 12:13-0400 Respiratory rate 18 /min Miki Mourany [facility] 07-11-2022 11:03-0400 Heart rate 61 /min Miki Mourany [facility] 07-11-2022 11:03-0400 SaO2% (BldA) [Mass fraction] 100 % Miki Mourany [facility] 07-11-2022 11:03-0400 Body temperature 97.7 [degF] Miki Mourany [facility] 07-11-2022 11:03-0400 Diastolic blood pressure 79 mm[Hg] Miki Mourany [facility] 07-11-2022 11:03-0400 Mean blood pressure 94 mm[Hg] Miki Mourany [facility] 07-11-2022 11:03-0400 Systolic blood pressure 125 mm[Hg] Miki Mourany [facility] 07-11-2022 11:03-0400 Respiratory rate 16 /min Miki Mourany [facility] 07-11-2022 11:00-0400 Body temperature 98.42 [degF] Miki Mourany [facility] 07-11-2022 11:00-0400 Mean blood pressure 103 mm[Hg] Miki Mourany [facility] 07-11-2022 11:00-0400 Respiratory rate 26 /min Miki Mourany [facility] 07-11-2022 10:45-0400 Mean blood pressure 105 mm[Hg] Miki Mourany [facility] 07-11-2022 10:45-0400 Respiratory rate 16 /min Miki Mourany [facility] 07-11-2022 10:30-0400 Mean blood pressure 102 mm[Hg] Miki Mourany [facility] 07-11-2022 10:30-0400 Respiratory rate 12 /min Miki Mourany [facility] 07-11-2022 09:37-0400 Body temperature 97.88 [degF] Miki Mourany [facility] 07-11-2022 07:00-0400 Heart rate 72 /min Miki Mourany [facility] 02-16-2022 12:27-0400 Diastolic blood pressure 85 mm[Hg] Wu SALAM [facility] 02-16-2022 12:27-0400 Mean blood pressure 102 mm[Hg] Wu SALAM [facility] 02-16-2022 12:27-0400 Systolic blood pressure 137 mm[Hg] Wu SALAM [facility] 02-16-2022 12:23-0400 Blood Pressure Location Wu SALAM [facility] 02-16-2022 12:23-0400 Diastolic blood pressure 83 mm[Hg] Wu SALAM [facility] 02-16-2022 12:23-0400 Heart rate 73 /min Wu SALAM [facility] 02-16-2022 12:23-0400 Respiratory rate 16 /min Wu SALAM [facility] 02-16-2022 12:23-0400 Systolic blood pressure 145 mm[Hg] Wu SALAM [facility] Encounters Encounter Date Encounter Type Care Provider Facility Start: 01-19-2024 End: 01-19-2024 Emergency department patient visit [facility] Start: 01-17-2024 End: 01-17-[address] [facility] Start: 01-17-2024 End: 01-17-[address] [facility] Start: 01-09-[address] [facility] Start: 01-09-2024 End: 01-09-2024 ambulatory [facility] Start: 01-01-2024 End: 01-01-2024 ambulatory SADE [facility] Start: 12-24-2023 End: 12-24-2023 Emergency department patient visit [facility] Start: 12-24-2023 End: 12-24-2023 ambulatory PASQUALE CLIFTON Not Available Start: 12-12-2023 End: 12-12-2023 ambulatory ELMER TORO [facility] Start: 12-03-2023 End: 12-03-2023 ambulatory PASQUALE S RUSHER Not Available Start: 11-28-2023 End: 11-28-2023 ambulatory ELMER CAMILODAL [facility] Start: 11-19-2023 End: 11-19-2023 ambulatory PASQUALE CLIFTON Not Available Start: 11-19-2023 End: 11-19-2023 Emergency department patient visit [facility] Start: 11-15-2023 End: 11-15-2023 ambulatory [facility] Start: 11-12-2023 End: 11-12-2023 Emergency department patient visit [facility] Start: 11-02-2023 End: 11-02-2023 Emergency department patient visit [facility] Start: 10-24-2023 End: 10-24-2023 ambulatory MAYCO JOSE RAMON Not Available Start: 10-23-2023 End: 10-23-2023 ambulatory MAUREEN LPOEZ [facility] Start: 10-08-2023 End: 10-08-[address] [facility] Start: 10-05-[address] [facility] Start: 10-05-2023 End: 10-05-2023 ambulatory [facility] Start: 10-02-2023 End: 10-02-2023 [facility] Start: 09-26-2023 End: 09-26-2023 ambulatory MAYCO JOSE RAMON Not Available Start: 09-17-2023 End: 09-17-2023 ambulatory MAYCO JOSE RAMON Not Available Start: 09-07-2023 End: 09-07-2023 ambulatory PASQUALE ALEXANDER [facility] Start: 09-06-2023 End: 09-06-2023 Emergency department patient visit [facility] Start: 09-06-2023 End: 09-06-2023 ambulatory MAUREEN Brennan [facility] Start: 08-30-2023 End: 08-30-2023 [facility] Start: 08-28-2023 End: 08-28-2023 ambulatory MICAELA LUNA Not Available Start: 08-23-2023 End: 08-23-2023 ambulatory Saw Huynh Facility:[facility] Start: 08-23-2023 End: 08-23-2023 Patient encounter procedure [facility] Start: 08-22-2023 End: 08-22-2023 ambulatory BILLY Jenkins [facility] Start: 08-22-2023 End: 08-23-2023 Emergency department patient visit MILLA SALOMON [facility] Start: 08-16-2023 End: 08-16-2023 ambulatory Mayco Jose Ramon Facility:[facility] Start: 08-16-2023 End: 08-16-2023 ambulatory Mayco Jose Ramon Work Phone: [facility] Work Phone: Start: 08-16-2023 End: 08-16-2023 Departed Referred Mayco Jose Ramon Work Phone: [facility] Start: 08-14-2023 End: 08-14-2023 ambulatory BILLY Jenkins [facility] Start: 08-02-2023 End: 08-02-2023 ambulatory [facility] Start: 08-02-2023 End: 08-02-2023 Office outpatient new 30 minutes [facility] DO Work Phone: [facility] Comment on above: Bilateral pulmonary embolism (CMS-HCC) October 2019 (Primary Dx); Personal history of PE (pulmonary embolism); Dyspnea on exertion; Environmental allergies Start: 07-31-2023 End: 07-31-2023 Office outpatient visit 40 minutes Sherman Calle MD Work Phone: [facility] Comment on above: BMI 39.0-39.9,adult (Primary Dx); Stage IV lupus nephritis (WHO) ([facility]); Systemic lupus erythematosus, unspecified SLE type, unspecified organ involvement status ([facility]); Encounter for senior care use of mycophenolate mofetil Start: 07-31-2023 End: 07-31-[address] [facility] Start: 07-26-2023 End: 07-26-2023 ambulatory [facility] Start: 07-23-2023 End: 07-23-2023 ambulatory [facility] Start: 07-16-2023 Telephone encounter Sudha VAUGHN [facility] Start: 07-15-2023 End: 07-15-2023 Emergency department patient visit BILLY Jenkins [facility] Start: 07-13-2023 Telephone encounter Sherri Emmanuel [facility] Comment on above: Prior Authorization Start: 07-12-2023 End: 07-12-2023 Office outpatient visit 40 minutes Sade Rosas MD Work Phone: N [facility] Comment on above: Lupus nephritis ([facility]) (Primary Dx); Essential hypertension Start: 07-09-2023 End: 07-09-2023 ambulatory MAYCO ALBRIGHT Not Available Start: 07-06-2023 [facility] Start: 07-06-[address] [facility] Start: 07-06-2023 End: 07-06-2023 ambulatory [facility] Start: 07-05-2023 Documentation procedure [facility] Start: 07-05-2023 End: 07-05-2023 ambulatory PASQUALE [facility] Start: 07-05-2023 End: 07-05-2023 Office outpatient new 60 minutes Pasquale Alexander PA-C Work Phone: [facility] Comment on above: Daily headache (Prim jina Dx); Migraine without aura and without status migrainosus, not intractable; Vision changes; Uncontrolled hypertension; Fibromyalgia Start: 07-05-2023 End: 07-05-2023 Office outpatient visit 40 minutes Tuyet Warren MD Work Phone: [facility] Comment on above: Bilateral pulmonary embolism ([facility]) October 2019 (Primary Dx); History of DVT (deep vein thrombosis); Preoperative clearance Start: 07-05-2023 End: 07-05-2023 Preoperative state Tuyet Warren MD Work Phone: [facility] Start: 07-05-2023 End: 07-05-2023 ambulatory [facility] Start: 07-04-2023 End: 07-04-2023 Office outpatient visit 40 minutes Sherman Calle MD Work Phone: [facility] Comment on above: Systemic lupus eryth ematosus, unspecified SLE type, unspecified organ involvement status ([facility]) (Primary Dx); Stage IV lupus nephritis (WHO) ([facility]); Encounter for senior care use of mycophenolate mofetil; 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 Start: 07-03-2023 Telephone encounter Dgina Valladares RN [facility] Comment on above: Surgical Or Dental C learance Start: 06-28-2023 End: 06-28-2023 Orders [facility] Start: 06-27-2023 End: 06-27-2023 ambulatory FROY HARMON [facility] Start: 06-24-2023 End: 06-25-2023 Emergency department patient visit SHANTEL BOWDEN [facility] Start: 06-24-2023 End: 06-25-2023 Emergency department patient visit BILLY ZELAYA [facility] Start: 06-21-2023 Refill Tuyet Warren MD Work Phone: [facility] Start: 06-21-2023 Refill Bucky Marcus [facility] Start: 06-20-2023 End: 06-22-2023 ambulatory DOT OWENFERN [facility] Start: 06-19-2023 Telephone encounter Nora VAUGHN [facility] Start: 06-19-2023 End: 06-22-2023 Emergency department patient visit ADONAY LAY [facility] Start: 06-19-2023 End: 06-21-2023 ambulatory BILLY Jenkins [facility] Start: 06-18-2023 Telephone encounter Zackery ruth [facility] Start: 06-16-2023 End: 06-17-2023 Emergency department patient visit MAXIMINO CHAPMAN [facility] Start: 06-14-2023 Telephone encounter Keke Montero [facility] Start: 06-14-2023 End: 06-15-2023 ambulatory CHILO BAIN [facility] Start: 06-14-2023 End: 06-14-2023 ambulatory SIMONE FRANKLIN [facility] Start: 06-13-2023 Orders Only Chilo rg MD Work Phone: [facility] Comment on above: Stage IV lupus nephr itis (WHO) ([facility]) (Primary Dx); Stage 3 chronic kidney disease, unspecified whether stage 3a or 3b CKD ([facility]) Start: 06-11-2023 Telephone encounter Keke Montero [facility] Start: 06-06-2023 Telephone encounter Digna Valladares RN [facility] Comment on above: Cardiac Clearance Start: 06-05-2023 End: 06-06-2023 Emergency department patient visit BILLY Jenkins WILFR[facility] Start: 06-05-2023 End: 06-06-2023 ambulatory SIMONE FRANKLIN [facility] Start: 06-05-2023 Telephone encounter Kirstie Cantu i [facility] Start: 06-04-2023 Telephone encounter Aster Guthrie CMA [facility] Start: 06-04-2023 End: 06-04-2023 Emergency department patient visit BILLY Jenkins [facility] Start: 06-03-2023 End: 06-03-2023 Emergency department patient visit BILLY Jenkins [facility] Start: 05-24-2023 End: 05-24-2023 Emergency department patient visit BILLY Jenkins [facility] Start: 05-22-2023 End: 05-22-2023 Emergency department patient visit BILLY Jenkins [facility] Start: 05-21-2023 End: 05-21-2023 ambulatory SIMONE FRANKLIN [facility] Start: 05-18-2023 [facility]phone [facility] Start: 05-15-2023 End: 05-16-2023 Emergency department patient visit SARAH MAC [facility] Start: 05-15-2023 End: 05-16-2023 Emergency department patient visit BILLY Jenkins [facility] Start: 05-14-2023 Chart abstracting Simone smalls MD Work Phone: [facility] Start: 05-10-2023 End: 05-11-2023 Emergency department patient visit DONALDO MUNOZNGUYỄN [facility] Start: 05-03-2023 End: 05-03-[address] [facility] Start: 04-25-2023 Documentation procedure [facility] Start: 04-18-2023 End: 04-18-2023 ambulatory MYACO ALBRIGHT Not Available Start: 04-06-[address] [facility] Start: 04-06-2023 End: 04-06-2023 ambulatory [facility] Start: 03-13-2023 End: 03-13-2023 ambulatory CYNTHIA GALLARDO Facility:[facility] Start: 03-13-2023 End: 03-13-2023 Patient encounter procedure CYNTHIA GALLARDO [facility] Start: 09-05-2022 End: 09-05-2022 Patient encounter procedure CYNTHIA GALLARDO [facility] Start: 08-10-2022 End: 08-10-2022 Patient encounter procedure Katrin Resendiz [facility] Start: 08-10-2022 End: 08-10-2022 Patient encounter procedure Katrin Resendiz [facility] Start: 07-17-2022 End: 07-17-2022 Patient encounter procedure Miki Mauricio [facility] [place] Start: 07-11-2022 End: 07-11-2022 Admission to same day surgery center Miki Mauricio [facility] Start: 07-05-2022 ambulatory Issa corbinty:[id number] Start: 03-14-2022 End: 03-14-[address] MAYCO ALBRIGHT Facility:[facility] Start: 02-16-2022 End: 02-16-2022 Patient encounter procedure Jazmin ROBERTSON [facility] Start: 02-16-2022 End: 06-01-2022 Recurring Jazmin ROBERTSON [facility] Start: 02-16-2022 End: 02-16-2022 Patient encounter procedure Wu SALAM [facility] Start: 12-12-2021 End: 12-12-2021 ambulatory MELONY THURSTON Facility:[facility] Procedures Date Procedure Procedure Detail Performing Clinician Start: 07-05-2023 Adult depression screening assessment Tuyet Warren MD Work Phone: Start: 06-27-2023 Follow-up visit Follow-up FROY HARMON Start: 06-19-2023 Adult depression screening assessment Zackery Lerma [employer] DIRECT[employer] Start: 04-18-2023 Microscopic observation [Identifier] in Cervix by Cyto stain Sade Rosas MD Work Phone: Start: 12-18-2022 Adult [...] Td Vaccines (9 - Td or Tdap) [facility] Start: 04-18-2026 Screening for malignant neoplasm of cervix Pap Smear [facility] Start: 03-14-2025 Screening for malignant neoplasm of cervix Pap Smear [facility] Start: 08-01-2024 Adult BMI Screening Adult BMI Screening [facility] Start: 08-01-2024 Tobacco Screening Tobacco Screening [facility] Start: 07-30-2024 Adult BMI Screening [facility] Start: 07-30-2024 Tobacco Screening [facility] Start: 07-14-2024 Adult BMI Screening Adult BMI Screening [facility] Start: 07-14-2024 Tobacco Screening Tobacco Screening [facility] Start: 07-11-2024 Adult BMI Screening Adult BMI Screening [facility] Start: 07-11-2024 Tobacco Screening Tobacco Screening [facility] Start: 07-04-2024 Adult BMI Screening Adult BMI Screening [facility] Start: 07-04-2024 Depression Screening Depression Screening [facility] Start: 07-04-2024 Tobacco Screening Tobacco Screening [facility] Start: 07-03-2024 Adult BMI Screening Adult BMI Screening [facility] Start: 07-03-2024 End: 07-03-2024 Patient encounter procedure 07/03/2024 9:00 AM EST Office Visit Yolis Raheem [facility] - Medical Oncology [address] [place] [phone] Tuyet Warren MD [address] [place] [address] Yolis Maciel [facility] On[facility] Start: 06-27-2024 Adult BMI Screening Adult BMI Screening [facility] Start: 06-27-2024 Tobacco Screening Tobacco Screening [facility] Start: 06-21-2024 Adult BMI [...] pulmonary embolism (CMS-HCC) Expected: 06/02/2024, Expires: 07/04/2024 [employer] Work Phone: Comment on above: Expected: 06/02/2024, Expires: Start: 06-02-2024 End: 07-04-2024 Comprehensive metabolic 2000 panel - Serum or Plasma Comprehensive metabolic panel Lab Routine Bilateral pulmonary embolism ([facility]) Expected: 06/02/2024 (Approximate), Expires: 07/04/2024 [facility] Comment on above: Expected: 06/02/2024 (Approximate), Expi res: 07/04/2024 Start: 05-15-2024 Adult BMI Screening [facility] Start: 05-15-2024 Tobacco Screening [facility] Start: 05-10-2024 Adult BMI Screening Adult [facility]ening [facility] Start: 05-10-2024 Tobacco Screening Tobacco [facility]ening [facility] Start: 04-02-2024 Adult BMI Screening Adult BMI Screening [facility] Start: 04-02-2024 Tobacco Screening Tobacco [facility]ening [facility] Start: 01-29-2024 ambulatory Ambulatory Facility:[facility] Start: 12-30-2023 Influenza vaccination Influenza Vaccine [facility] Start: 12-19-2023 Depression Screening Depression [facility]ening [facility] Start: 10-18-2023 End: 10-18-2023 Patient encounter procedure [facility] Start: 09-07-2023 End: 09-07-2023 Patient encounter procedure 09/07/2023 10:00 AM EDT Office Visit [facility] [address] [facility] [place] [address] Pasquale Alexander, RUFINO [address] [place] [address] [facility] Start: 08-30-2023 End: 07-30-2024 Creatinine includes GFR, serum Creatinine includes GFR, serum Lab Routine Stage IV lupus nephritis (WHO) ([facility]) Expected: 08/30/2023 (Approximate), Expires: 07/30/2024 [facility] Comment on above: Expected: 08/30/2023 (Approximate), Expi res: 07/30/2024 Start: 08-30-2023 End: 07-30-2024 Protein creat ratio Protein creat ratio Lab Routine Stage IV lupus nephritis (WHO) ([facility]) Expected: 08/30/2023 (Approximate), Expires: 07/30/2024 [facility] Comment on above: Expected: 08/30/2023 (Approximate), Expi res: 07/30/2024 Start: 08-30-2023 End: 07-30-2024 Urinalysis Urinalysis Lab Routine Stage IV lupus nephritis (WHO) ([facility]) Expected: 08/30/2023 (Approximate), Expires: 07/30/2024 [facility] Comment on above: Expected: 08/30/2023 (Approximate), Expi res: 07/30/2024 Start: 08-30-2023 End: 08-30-2023 Patient encounter procedure 08/30/2023 10:45 AM EDT Office Visit [facility] [address] [phone] Sherman Calle MD [address] [address] [facility] Start: 08-14-2023 End: 07-30-2024 Creatinine includes GFR, serum Creatinine includes GFR, serum Lab Routine Stage IV lupus nephritis (WHO) ([facility]) Expected: 08/14/2023 (Approximate), Expires: 07/30/2024 [facility] Work Phone: Comment on above: Expected: 08/14/2023 (Approximate), Expi res: 07/30/2024 Start: 08-14-2023 End: 08-14-2023 Patient encounter procedure 08/14/2023 10:30 AM EDT Appointment [facility] - Pulmonary Function [address] [place] [address] Maylin Portillo, DO [address] [place] [address] [facility] - [facility] Function Start: 08-06-2023 End: 08-06-2023 Patient encounter procedure 08/06/2023 8:30 AM EDT Office Visit [facility] [address] [place] [phone] Sherman Calle MD [address] [place] [address] [facility] Start: 08-02-2023 End: 08-02-2023 Patient encounter procedure 08/02/2023 10:00 AM EDT Office Visit [facility] [facility] [address] [facility] [place] [phone] Maylin Portillo, DO [address] [place] [address] [facility] Start: 07-31-2023 End: 07-31-2023 Patient encounter procedure 07/31/2023 1:15 PM EDT Office Visit [facility] [address] [place] [phone] Sherman Calle MD [address] [place] [address] [facility] Start: 07-23-2023 End: 07-23-2023 Patient encounter procedure 07/23/2023 9:45 AM EDT Appointment [facility] MRI Imaging [address] [place] [address] [facility] Start: 07-12-2023 End: 07-12-2023 Patient encounter procedure 07/12/2023 9:30 AM EDT Office Visit [facility] [address] [place] [phone] Sade Rosas MD [address] [place] [phone] [facility] [facility] Start: 07-05-2023 End: 07-04-2024 MR Brain WO contrast MR brain without contrast Imaging Routine Daily headache Migraine without aura and without status migrainosus, not intractable Vision changes Expected: 07/05/2023, Expires: 07/04/2024 [facility] Work Phone: Comment on above: Expected: 07/05/2023, Expires: Start: 07-05-2023 End: 07-05-2023 Patient encounter procedure 07/05/2023 10:00 AM EST Office Visit [facility] [address] [place] [phone] Pasquale Alexander PA-C [address] [facility] [place] [address] [facility] Start: 07-05-2023 End: 07-05-2023 Telemedicine consultation with patient 07/05/2023 9:00 AM EST Telemedicine [facility] [address] [place] [phone] Tuyet Warren MD [address] [place] [id number] [facility] Start: 07-04-2023 End: 07-03-2024 C-reactive protein C-reactive protein Lab Routine Stage IV lupus nephritis (WHO) ([facility]) Systemic lupus erythematosus, unspecified SLE type, unspecified organ involvement status ([facility]) Expected: 07/04/2023 (Approximate), Expires: 07/03/2024 [facility] Comment on above: Expected: 07/04/2023 (Approximate), Expi res: 07/03/2024 Start: 07-04-2023 End: 07-03-2024 CBC W Auto Differential panel - Blood CBC auto differential Lab Routine Stage IV lupus nephritis (WHO) ([facility]) Systemic lupus erythematosus, unspecified SLE type, unspecified organ involvement status ([facility]) 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 Expected: 07/04/2023 (Approximate), Expires: 07/03/2024 [facility] Comment on above: Expected: 07/04/2023 (Approximate), Expi res: 07/03/2024 Start: 07-04-2023 End: 07-03-2024 Comprehensive metabolic 2000 panel - Serum or Plasma Comprehensive metabolic panel Lab Routine Stage IV lupus nephritis (WHO) ([facility]) Systemic lupus erythematosus, unspecified SLE type, unspecified organ involvement status ([facility]) Expected: 07/04/2023 (Approximate), Expires: 07/03/2024 [facility] Comment on above: Expected: 07/04/2023 (Approximate), Expi res: 07/03/2024 Start: 07-04-2023 End: 07-03-2024 Erythrocyte sedimentation rate Erythrocyte Sedimentation Rate (ESR) Lab Routine Stage IV lupus nephritis (WHO) ([facility]) Systemic lupus erythematosus, unspecified SLE type, unspecified organ involvement status ([facility]) Expected: 07/04/2023 (Approximate), Expires: 07/03/2024 [employer] Work Phone: Comment on above: Expected: 07/04/2023 (Approximate), Expi res: 07/03/2024 Start: 07-04-2023 End: 07-03-2024 Protein creat ratio Protein creat ratio Lab Routine Stage IV lupus nephritis (WHO) ([facility]) Expected: 07/04/2023 (Approximate), Expires: 07/03/2024 [facility] Comment on above: Expected: 07/04/2023 (Approximate), Expi res: 07/03/2024 Start: 07-04-2023 End: 07-03-2024 Unlisted Lab Test Unlisted Lab Test Lab Routine Stage IV lupus nephritis (WHO) ([facility]) Systemic lupus erythematosus, unspecified SLE type, unspecified organ involvement status ([facility]) Expected: 07/04/2023, Expires: 07/03/2024 [facility] [employer] [facility] Comment on above: Expected: 07/04/2023, Expires: Start: 07-04-2023 End: 07-03-2024 Urinalysis Urinalysis Lab Routine Stage IV lupus nephritis (WHO) ([facility]) Expected: 07/04/2023 (Approximate), Expires: 07/03/2024 [facility] Comment on above: Expected: 07/04/2023 (Approximate), Expi res: 07/03/2024 Start: 07-04-2023 End: 07-04-2023 Patient encounter procedure [facility] Start: 07-03-2023 End: 07-03-2023 Patient encounter procedure 07/03/2023 8:00 AM EST Office Visit [facility] [address] [place] [phone] Pasqaule Alexander PA-C [address] [facility] [place] [phone] [facility] Start: 06-28-2023 End: 06-28-2023 ambulatory 06/28/2023 10:00 AM EST Lab [facility] Rodrig[facility]cology [address] [place] [address] Yolis Rodrigues [facility] Start: 06-21-2023 End: 06-21-2023 Patient encounter procedure 06/21/2023 9:30 AM EST Office Visit [facility] [address] [phone] Chilo Bain MD [address] [facility] [address] [place] [phone] [facility] Start: 06-20-2023 End: 06-13-2024 Basic metabolic 2000 panel - Serum or Plasma Basic Metabolic Panel Lab Routine Stage IV lupus nephritis (WHO) ([facility]) Stage 3 chronic kidney disease, unspecified whether stage 3a or 3b CKD ([facility]) Expected: 06/20/2023 (Approximate), Expires: 06/13/2024 [facility] Work Phone: Comment on above: Expected: 06/20/2023 (Approximate), Expi res: 06/13/2024 Start: 06-20-2023 End: 06-13-2024 CBC panel - Blood by Automated count CBC without diff Lab Routine Stage IV lupus nephritis (WHO) ([facility]) Stage 3 chronic kidney disease, unspecified whether stage 3a or 3b CKD ([facility]) Expected: 06/20/2023 (Approximate), Expires: 06/13/2024 [facility] Comment on above: Expected: 06/20/2023 (Approximate), Expi res: 06/13/2024 Start: 06-20-2023 End: 06-13-2024 Magnesium [Mass/volume] in Serum or Plasma Magnesium Lab Routine Stage IV lupus nephritis (WHO) ([facility]) Stage 3 chronic kidney disease, unspecified whether stage 3a or 3b CKD ([facility]) Expected: 06/20/2023 (Approximate), Expires: 06/13/2024 [facility] Comment on above: Expected: 06/20/2023 (Approximate), Expi res: 06/13/2024 Start: 06-20-2023 End: 06-13-2024 Parathyroid Hormone, intact Parathyroid Hormone, intact Lab Routine Stage IV lupus nephritis (WHO) ([facility]) Stage 3 chronic kidney disease, unspecified whether stage 3a or 3b CKD ([facility]) Expected: 06/20/2023 (Approximate), Expires: 06/13/2024 [facility] Comment on above: Expected: 06/20/2023 (Approximate), Expi res: 06/13/2024 Start: 06-20-2023 End: 06-13-2024 Phosphate [Mass/volume] in Serum or Plasma Phosphorus Lab Routine Stage IV lupus nephritis (WHO) ([facility]) Stage 3 chronic kidney disease, unspecified whether stage 3a or 3b CKD ([facility]) Expected: 06/20/2023 (Approximate), Expires: 06/13/2024 [facility] Comment on above: Expected: 06/20/2023 (Approximate), Expi res: 06/13/2024 Start: 06-20-2023 End: 06-13-2024 Protein creat ratio Protein creat ratio Lab Routine Stage IV lupus nephritis (WHO) ([facility]) Stage 3 chronic kidney disease, unspecified whether stage 3a or 3b CKD ([facility]) Expected: 06/20/2023 (Approximate), Expires: 06/13/2024 [facility] Comment on above: Expected: 06/20/2023 (Approximate), Expi res: 06/13/2024 Start: 06-20-2023 End: 06-13-2024 Vitamin D 25 hydroxy Vitamin D 25 hydroxy Lab Routine Stage IV lupus nephritis (WHO) ([facility]) Stage 3 chronic kidney disease, unspecified whether stage 3a or 3b CKD ([facility]) Expected: 06/20/2023 (Approximate), Expires: 06/13/2024 [facility] Comment on above: Expected: 06/20/2023 (Approximate), Expi res: 06/13/2024 Start: 06-19-2023 End: 06-19-2023 Patient encounter procedure 06/19/2023 11:00 AM EST Office Visit [facility] [address] [facility] [address] [facility] [place] [address] Pasquale Alexander PA-C [address] [place] [address] [facility] Start: 06-14-2023 End: 06-14-2023 Patient encounter procedure [facility] -CardioVascular Start: 06-14-2023 End: 06-14-2023 Patient encounter procedure [facility] -Nuclear MedIcine Start: 06-08-2023 End: 06-08-2023 Patient encounter procedure 06/08/2023 1:00 PM EST Appointment [facility] [address] [place] [address] [facility] Start: 06-06-2023 End: 06-06-2024 SPECT Heart gated and ejection fraction at rest and W stress and W radionuclide IV Nuc stress exercise Cardiac Services Routine Angina pectoris, unstable ([facility]) Expected: 06/06/2023, Expires: 06/06/2024 [facility] Work Phone: Comment on above: Expected: 06/06/2023, Expires: Start: 05-21-2023 End: 05-21-2023 Patient encounter procedure 05/21/2023 10:30 AM EST [facility] [address] [place] [phone] Simone Franklin MD [address] [place], [place] [phone] [facility] Start: 05-03-2023 End: 05-03-2023 Patient encounter procedure 05/03/2023 8:30 AM EST [facility] [address] [place] [address] Sherman Calle MD [address] [place] [address] [facility] Start: 11-10-2009 Adult BMI Follow Up Plan Adult BMI Follow Up Plan [facility] End: 07-11-2024 Albumin [Mass/volume] in Serum or Plasma Albumin Lab Routine Lupus nephritis ([facility]) 1 Occurrences starting 07/12/2023 until 07/11/2024 [facility] Work Phone: Comment on above: 1 Occurrences starting 07/12/2023 until 07/11/2024 End: 07-11-2024 Basic metabolic 2000 panel - Serum or Plasma Basic Metabolic Panel Lab Routine Lupus nephritis ([facility]) 1 Occurrences starting 07/12/2023 until 07/11/2024 [facility] Comment on above: 1 Occurrences starting 07/12/2023 until 07/11/2024 End: 07-03-2024 C3 complement C3 complement Lab Routine Stage IV lupus nephritis (WHO) ([facility]) Systemic lupus erythematosus, unspecified SLE type, unspecified organ involvement status ([facility]) 1 Occurrences starting 07/04/2023 until 07/03/2024 [facility] above: 1 Occurrences starting 07/04/2023 until 07/03/2024 End: 07-03-2024 C4 complement C4 complement Lab Routine Systemic lupus erythematosus, unspecified SLE type, unspecified organ involvement status ([facility]) 1 Occurrences starting 07/04/2023 until 07/03/2024 [facility] Comment on above: 1 Occurrences starting 07/04/2023 until 07/03/2024 End: 07-11-2024 CBC panel - Blood by Automated count CBC without diff Lab Routine Lupus nephritis ([facility]) 1 Occurrences starting 07/12/2023 until 07/11/2024 [facility] Comment on above: 1 Occurrences starting 07/12/2023 until 07/11/2024 End: 08-01-2024 Eosinophil count Eosinophil count Lab Routine Environmental allergies 1 Occurrences starting 08/02/2023 until 08/01/2024 [facility] Comment on above: 1 Occurrences starting 08/02/2023 until 08/01/2024 End: 07-11-2024 Magnesium [Mass/volume] in Serum or Plasma Magnesium Lab Routine Lupus nephritis ([facility]) 1 Occurrences starting 07/12/2023 until 07/11/2024 [facility] Comment on above: 1 Occurrences starting 07/12/2023 until 07/11/2024 End: 07-11-2024 Phosphate [Mass/volume] in Serum or Plasma Phosphorus Lab Routine Lupus nephritis ([facility]) 1 Occurrences starting 07/12/2023 until 07/11/2024 [facility] Comment on above: 1 Occurrences starting 07/12/2023 until 07/11/2024 End: 07-11-2024 Protein creat ratio Protein creat ratio Lab Routine Lupus nephritis ([facility]) 1 Occurrences starting 07/12/2023 until 07/11/2024 [facility] Comment on above: 1 Occurrences starting 07/12/2023 until 07/11/2024 End: 08-01-2024 Respiratory allergy panel Respiratory allergy panel Lab Routine Environmental allergies 1 Occurrences starting 08/02/2023 until 08/01/2024 [employer] Work Phone: Comment on above: 1 Occurrences starting 08/02/2023 until 08/01/2024 End: 07-11-2024 Urinalysis Urinalysis Lab Routine Lupus nephritis ([facility]) 1 Occurrences starting 07/12/2023 until 07/11/2024 [facility] on above: 1 Occurrences starting 07/12/2023 until 07/11/2024 Immunizations Immunization Date Immunization Notes Care Provider Jany corbin 02-08-2023 Influenza, injectabl e, Madin Tasha Canine Kidney, preservative free, quadrivalent Darilyn [facility] 02-08-2023 Pneumococcal Con[facility]a te [facility] 02-08-2023 influenza virus vaccine, unspecified formulation Sherman Calle MD Work Phone: [facility] [employer] [facility] 03-23-2020 influenza virus vaccine, unspecified formulation Wu SALAM [facility] 03-23-2020 influenza, injectabl e, quadrivalent, preservative free Dee Dee Hernandez RN [facility] 03-23-2020 tetanus toxoid, redu martha diphtheria toxoid, and acellular pertussis vaccine, adsorbed Wu SALAM [facility] 04-02-2019 tetanus toxoid, redu martha diphtheria toxoid, and acellular pertussis vaccine, adsorbed Wu SALAM [facility] 02-26-2019 influenza virus vaccine, unspecified formulation Wu SALAM [facility] 02-26-2019 influenza, injectabl e, quadrivalent, preservative free Dee Dee Hernandez RN [facility] 03-03-2010 influenza virus vaccine, unspecified formulation Wu SALAM [facility] 03-03-2010 influenza, seasonal, injectable Dee Dee Hernandez RN [facility] 07-27-2009 HPV, unspecified formulation Wu SALAM [facility] 07-27-2009 human papilloma viru s vaccine, quadrivalent Dee Dee Hernandez RN [facility] 03-29-2009 HPV, unspecified formulation Wu SALAM [facility] 03-29-2009 human papilloma viru s vaccine, quadrivalent Dee Dee Hernandez RN [facility] 02-24-2009 influenza virus vaccine, live, attenuated, for intranasal use Dee Dee Hernandez RN [facility] 01-20-2009 HPV, unspecified formulation Wu SALAM [facility] 01-20-2009 human papilloma viru s vaccine, quadrivalent Dee Dee Hernandez RN [facility] 01-20-2009 meningococcal ACWY vaccine, unspecified formulation Wu SALAM [facility] 01-20-2009 meningococcal polysaccharide (groups A, C, Y and W-135) diphtheria toxoid conjugate vaccine (MCV4P) Dee Dee Hernandez RN [facility] 01-20-2009 tetanus toxoid, redu martha diphtheria toxoid, and acellular pertussis vaccine, adsorbed Wu SALAM [facility] 05-18-2008 influenza virus vaccine, unspecified formulation Wu SALAM [facility] 05-18-2008 influenza, seasonal, injectable, preservative free Dee Dee Hernandez RN [facility] 05-26-2004 measles, mumps and rubella virus vaccine Wu SALAM [facility] 04-03-2003 influenza virus vaccine, unspecified formulation Wu SALAM [facility] 04-03-2003 influenza, seasonal, injectable Dee Dee Hernandez RN [facility] 08-28-1996 diphtheria, tetanus toxoids and acellular pertussis vaccine, unspecified formulation Dee Dee Hernandez RN [facility] 08-28-1996 DTaP, unspecified formulation Wu SALAM [facility] 08-28-1996 poliovirus vaccine, unspecified formulation Dee Dee Hernandez RN [facility] 05-17-1995 hepatitis B vaccine, pediatric or pediatric/adolescent dosage Wu SALAM [facility] 12-19-1994 hepatitis B vaccine, pediatric or pediatric/adolescent dosage Wu SALAM [facility] 11-10-1994 hepatitis B vaccine, pediatric or pediatric/adolescent dosage Wu SALAM [facility] 07-28-1993 diphtheria, tetanus toxoids and acellular pertussis vaccine, unspecified formulation Dee Dee Hernandez RN [facility] 07-28-1993 DTaP, unspecified formulation Wu SALAM [facility] 07-28-1993 poliovirus vaccine, unspecified formulation Dee Dee Hernandez RN [facility] 02-10-1993 haemophilus influenz ae type b vaccine, conjugate unspecified formulation Dee Dee Hernandez RN [facility] 02-10-1993 Hib, unspecified formulation Wu SALAM [facility] 02-10-1993 measles, mumps and rubella virus vaccine Wu SALAM [facility] 05-07-1992 diphtheria, tetanus toxoids and acellular pertussis vaccine, unspecified formulation Dee Dee Hernandez RN [facility] 05-07-1992 DTaP, unspecified formulation Wu SALAM [facility] 05-07-1992 haemophilus influenz ae type b vaccine, conjugate unspecified formulation Dee Dee Hernandez RN [facility] 05-07-1992 Hib, unspecified formulation Wu SALAM [facility] 03-05-1992 diphtheria, tetanus toxoids and acellular pertussis vaccine, unspecified formulation Dee Dee Hernandez RN [facility] 03-05-1992 DTaP, unspecified formulation Wu SALAM [facility] 03-05-1992 haemophilus influenz ae type b vaccine, conjugate unspecified formulation Dee Dee Hernandez RN [facility] 03-05-1992 Hib, unspecified formulation Wu SALAM [facility] 03-05-1992 poliovirus vaccine, unspecified formulation Dee Dee Hernandez RN [facility] 01-07-1992 diphtheria, tetanus toxoids and acellular pertussis vaccine, unspecified formulation Dee Dee Hernandez RN [facility] 01-07-1992 DTaP, unspecified formulation Wu SALAM [facility] 01-07-1992 haemophilus influenz ae type b vaccine, conjugate unspecified formulation Dee Dee Hernandez RN [facility] 01-07-1992 Hib, unspecified formulation Katrin Resendiz [facility] 01-07-1992 poliovirus vaccine, unspecified formulation Dee Dee Hernandez RN [facility] NEGATED: Highlighted row has not occurred!06-26-2022 influenza virus vaccine, unspecified formulation Miki Mauricio [facility] NEGATED: Highlighted row has not occurred!06-26-2022 SARS-CoV-2 mRNA (tozinameran 5y-11y) vaccine Miki Mauricio [facility] NEGATED: Highlighted row has not occurred!02-16-2022 influenza virus vaccine, unspecified formulation Wu SALAM [facility] Payers Date Payer Category Payer Self-pay 2022 Medicaid [employer] H[employer] [id number] 2022-Present [phone] [address] [place] [address] [id number]. [id number] 2014 Unknown [id number] 1991 Unknown [id number] 2.16.840.1.623847.3.579.2.593 1991 Unknown [id number] 2.16.840.1.674975.3.579.2.593 1991 Unknown [id number] 2.16.840.1.586958.3.579.2.356 1991 Unknown [id number] 2.16.840.1.280198.3.579.2.6 1991 Unknown [id number] 2.16.840.1.636693.3.579.2.1285 1991 Unknown [id number] 2.16.840.1.939037.3.579.2.1285 1991 Unknown [id number] 2.16.840.1.469018.3.579.2.1285 1991 Unknown [id number] 2.16.840.1.845472.3.579.2.1285 1991 Unknown [id number] 2.16.840.1.506437.3.579.2.1285 1991 Unknown [id number] 2.16.840.1.094800.3.579.2.128 1991 Unknown [id number] 2.16.840.1.207226.3.579.2.1285 1991 Unknown [id number] 2.16.840.1.462711.3.579.2.1285 1991 Unknown [id number] 2.16.840.1.559023.3.579.2.1286 1991 Unknown [id number] 2.16.840.1.024979.3.579.2.727 1991 Unknown [id number] 2.16.840.1.154869.3.579.2. 1991 Unknown [id number] 2.16.840.1.126937.3.579.2.72 1991 Unknown [id number] 2.16.840.1.650903.3.579.2.1244 1991 Unknown [id number] 2.16.840.1.953274.3.579.2.1258 1991 Unknown [id number] 2.16.840.1.353042.3.579.2.1258 1991 Unknown [id number] 2.16.840.1.231861.3.579.2.1258 1991 Unknown [id number] 2.16.840.1.807695.3.579.2.1258 1991 Unknown [id number] 2.16.840.1.800949.3.579.2.1258 1991 Unknown [id number] 2.16.840.1.720835.3.579.2.1258 1991 Unknown [id number] 2.16.840.1.704683.3.579.2.1258 1991 Unknown [id number] 2.16.840.1.996189.3.579.2.1258 1991 Unknown [id number] 2.16.840.1.902119.3.579.2.1258 1991 Unknown [id number] 2.16.840.1.734047.3.579.2.1258 1991 Unknown [id number] 2.16.840.1.897046.3.579.2.6 1991 Unknown [id number] 2.16.840.1.080315.3.579.2.1285 1991 Unknown [id number] 2.16.840.1.231405.3.579.2.1285 1991 Unknown [id number] 2.16.840.1.677671.3.579.2.1285 1991 Unknown [id number] 2.16.840.1.906246.3.579.2.1285 1991 Unknown [id number] 2.16.840.1.105354.3.579.2.1285 1991 Unknown [id number] 2.16.840.1.384773.3.579.2.1285 1991 Unknown [id number] 2.16.840.1.962723.3.579.2.1285 1991 Unknown [id number] 2.16.840.1.300705.3.579.2.1285 1991 Unknown [id number] 2.16.840.1.660532.3.579.2.1285 1991 Unknown [id number] 2..840.1.821358.3.579.2.1285 1991 Unknown [id number] 2.16.840.1.592397.3.579.2.1285 1991 Unknown [id number] 2.16.840.1.631785.3.579.2.1285 1991 Unknown [id number] 2.16.840.1.079867.3.579.2.1285 1991 Unknown [id number] 2.16.840.1.031205.3.579.2.1285 1991 Unknown [id number] 2.16.840.1.229358.3.579.2.1285 1991 Unknown [id number] 2.16.840.1.011299.3.579.2.1285 1991 Unknown [id number] 2.16.840.1.798039.3.579.2.1285 1991 Unknown [id number] 2.16.840.1.998163.3.579.2.1285 1991 Unknown [id number] 2.16.840.1.348350.3.579.2.1285 1991 Unknown [id number] 2.16.840.1.611933.3.579.2.1285 1991 Unknown [id number] 2.16.840.1.191007.3.579.2.1285 1991 Unknown [id number] 2.16.840.1.093723.3.579.2.1285 1991 Unknown [id number] 2.16.840.1.483651.3.579.2.1285 1991 Unknown [id number] 2.840.1.330710.3.579.2.1285 1991 Unknown [id number] 2.16.840.1.036698.3.579.2.1285 1991 Unknown [id number] 2.16.840.1.497309.3.579.2.1285 1991 Unknown [id number] 2.16.840.1.349153.3.579.2.1285 1991 Unknown [id number] 2.840.1.474365.3.579.2.1285 1991 Unknown [id number] 2.16.840.1.501027.3.579.2.1285 1991 Unknown [id number] 2.16.840.1.416547.3.579.2.1285 1991 Unknown [id number] 2.16.840.1.744672.3.579.2.1285 1991 Unknown [id number] 2.16.840.1.969180.3.579.2.1285 1991 Unknown [id number] 2.16.840.1.156458.3.579.2.1285 1991 Unknown [id number] 2.16.840.1.703316.3.579.2.1285 1991 Unknown [id number] 2.16.840.1.377768.3.579.2.1285 1991 Unknown [id number] 2.16.840.1.557766.3.579.2.1285 1991 Unknown [id number] 2.16.840.1.800844.3.579.2.1285 1991 Unknown [id number] 2.16.840.1.376582.3.579.2.1285 1991 Unknown [id number] 2.16.840.1.011303.3.579.2.1285 1991 Unknown [id number] 2.16.840.1.124169.3.579.2.1285 1991 Unknown [id number] 2.16.840.1.371253.3.579.2.1285 1991 Unknown [id number] 2.16.840.1.694917.3.579.2.1285 1991 Unknown [id number] 2.16.840.1.214601.3.579.2.1285 1991 Unknown [id number] 2.16.840.1.731748.3.579.2.1285 1991 Unknown [id number] 2.16.840.1.793353.3.579.2.1285 1991 Unknown [id number] 2.16.840.1.035265.3.579.2.1285 1991 Unknown [id number] 2.16.840.1.250032.3.579.2.128 1959 Unknown [id number] Social History Date Type Detail Facility Start: 02-16-2022 End: 08-23-2023 Tobacco smoking status Ex-smoker (finding) [facility] Start: 12-18-2022 End: 07-15-2023 Sex Assigned At Female [facility] Tobacco smoking status Never Shyla [facility] End: 04-30-2020 History of tobacco use Current smoker [facility] End: 04-30-2020 History of tobacco use Cigarette Smoker [facility] Start: 04-10-2022 End: 08-02-2023 Tobacco use and exposure Smokeless tobacco non-user [facility] Start: 04-19-2023 End: 08-02-2023 Alcohol intake Ex-drinker (finding) [facility] Start: 12-18-2022 End: 07-15-2023 History of Social function [facility] Do you belong to any clubs or organizations such as gnosticist groups, unions, fraternal or athletic groups, or school groups? Yes [facility] Are you now , , , , never or living with a partner? Never [facility] How often to you hav e a drink containing alcohol? Never [facility] How many standard dr inks containing alcohol do you have on a typical day? 1 or 2 [facility] Do you feel stress - tense, restless, nervous, or anxious, or unable to sleep at night because your mind is troubled all the time - these days [OSQ] Only a little [facility] Start: 1990 Sex Assigned At Not on file P [facility] [employer], or [employer] threatened to shut off services in your home in past 12Mo No [facility] Start: 1990 Sex Assigned At Female F [facility] Goals Date Patient Goal Desired Activity /State Personal health goal Comment on above: Formatting of this n ote might be different from the original. Evaluation of progress towards goal: self care, family support Functional Status Date Assessment Result Facility 08-23-2023 Functional Status N/A [facility] 09-05-2022 Functional Status N/A [facility] [place] 08-10-2022 Functional Status N/A [facility] 07-17-2022 Functional Status N/A [facility] [place] 02-16-2022 Functional Status N/A [facility] Clinical Notes 10-29-2019 to 01-09-2024 Maylin Portillo, - 08/02/2023 10:00 AM Kwame Calle MD - 07/31/2023 1:15 PM EDTTelephone Encounter - Sudha Stoddard LPN - 07/16/2023 10:19 AM Christian Rosas MD - 07/12/2023 9:30 AM EDT Note Date & Type Note Facility 01-09-2024 Note 01/09/2024 Subjective Patient ID: Blanca Rudolph is a 33 y.o. female who presents for Exposure to HIV and Med Management. HPI: This is a 31-slfst-zri-female patient on Descovy since November 2022 for preexposure prophylaxis (PrEP) to prevent HIV infection. Patient is presenting to [facility] for a 3 months follow-up visit. Patient reports tolerance and compliance to ART without missed doses and denies any side effect. Of note, the patient was found to have a RPR titer of 1:1024 on 11/22/2022 during her autoimmune work-up at [facility] for SLE and nephrotic syndrome.Patient is established with Nephrology. 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 Within the last 3 months the patient denies any specific influenza-like illness (CLAUDIA), specifically no illness with fever, fatigue, night sweats, rash, muscle aches, headaches, sore throat, and/or swollen glands. The patient reports hx of kidney disease, denies known active hepatitis B infection; patient has hx of tubal ligation. Patient states she is currently on menstrual cycle. 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 aspirin 81 mg EC tablet Take 81 mg by mouth in the morning. atovaquone [...] 1,000 mcg by mouth in the morning. Descovy 200-25 mg tablet TAKE ONE TABLET BY MOUTH IN THE MORNING 30 tablet 0 dicyclomine (Bentyl) 10 mg capsule etonogestrel-eluting contraceptive (Nexplanon) 68 mg contraceptive implant as directed Subcutaneous ferrous sulfate 325 (65 Fe) MG tablet take 1 tablet by mouth once daily for 30 levonorgestrel (Mirena) 21 mcg/24 hr (8 yrs) 52 mg IUD 1 Device by intrauterine route 1 (one) time. magnesium oxide (Mag-Ox) 400 mg (241.3 mg magnesium) tablet take 1 tablet by mouth every morning then 1 tablet BEFORE BEDTIME DO THIS FOR 30 DAYS medroxyPROGESTERone (Provera) 10 mg tablet metoprolol tartrate (Lopressor) 25 mg tablet mycophenolate (Cellcept) 250 mg capsule take 6 [...] Social History: Social History Socioeconomic History Marital (more content not included)... [facility] 10-05-2023 Note 10/05/2023 Subjective Patient ID: Blacna Rudolph is a 32 y.o. female who presents for Exposure to HIV. HPI: This is a 43-iqavs-hvs-female patient on Descovy since November 2022 for preexposure prophylaxis (PrEP) to prevent HIV infection. Patient is presenting to [facility] for a 3 months follow-up visit. Patient reports tolerance and compliance to ART without missed doses and denies any side effect. Of note, the patient was found to have a RPR titer of 1:1024 on 11/22/2022 during her autoimmune work-up at [facility] for SLE and nephrotic syndrome. 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 Within the last 3 months the patient reports fatigue,headache, night-sweats, muscle aches that she attributes to Lupus. Patient is established with Rheumatology on immunosuppressant. Patient denies fever, rash, sore-throat, or swollen glands. The patient denies liver disease, patient has hx of tubal ligation. Patient reports heavy menstrual bleeding. Patient states Provera was discontinued and she currently has an IUD since September 26, 2023 with some improvement. Patient denies known active hepatitis B infection. [...] drugs and/or shearing of any injection paraphernalia: (no] Treatment in a methadone or medication based [...] DVT (deep vein thrombosis) Fibromyalgia Encounter for senior care use of mycophenolate mofetil Delivery of by section Cyst of Bartholin's gland duct Chronic hypertension Blood loss anemia Acute kidney injury (CMS/HCC) Abdominal pain Abdominal hematoma Microscopic hematuria Past Surgical History: Past Surgical History: Procedure [...] time each day at the same time. aspirin 81 mg EC tablet Take 81 mg by mouth in the morning. atovaquone [...] the morning. dicyclomine (Bentyl) 10 mg capsule ferrous sulfate 325 (65 Fe) MG tablet take 1 tablet by mouth once daily for 30 levonorgestrel (Mirena) 21 mcg/24 hr (8 yrs) 52 mg IUD 1 Device by intrauterine route 1 (one) time. magnesium oxide (Mag-Ox) 400 mg (241.3 mg magnesium) tablet take 1 tablet by mouth every morning then 1 tablet BEFORE BEDTIME DO THIS FOR 30 DAYS medroxyPROGESTERone (Provera) 10 mg tablet metoprolol tartrate (Lopressor) 25 mg tablet mycophenolate (Cellcept) 250 mg capsule take 6 [...] AT 12PM then... (REFER TO PRESCRIPTION NOTES). [DISCONTINUED] emtricitabine-tenofovir alafen (Descovy) 200-25 mg tablet Take 1 tablet by mouth in the morning. 30 tablet 2 etonogestrel-eluting contraceptive (Nexplanon) 68 mg contraceptive implant as directed Subcutaneous No (more content not included)... [facility] 08-02-2023 History of Present illness Narrative Images [...] p.r.n. rescue inhaler by primary care physician help desk assistant within the last couple of years which [...] Date ADD (attention deficit disorder) Angina pectoris ([facility]) Depression DVT (deep vein thrombosis) in Heart murmur History of gestational diabetes History of pre-eclampsia History of delivery History of twin in prior Hypertension Morbid obesity ([facility]) Nephrotic syndrome 11/22/2022 PPH ( hemorrhage) Pulmonary emboli ([facility]) 10/2019 Request for sterilization 02/03/2020 Signed 02/03/2020 [place] Res[place] SLE (systemic lupus erythematosus) ([facility]) 11/28/2022 Past Surgical History: Procedure Laterality Date REPEAT N/A 04/03/2019 Performed by Aquiles Abbott MD at [facility] OR REPEAT TUBAL LIGATION N/A 06/02/2020 Performed by John Person MD at [facility] OR D AND C SUCTION N/A 03/18/2018 Performed by Kat Jeffers MD at [facility] Garlic, Ibuprofen, Keflex [cephalexin], and Sulfamethoxazole-trimethoprim [...] (6.25 mg total) before bedtime. 07/12/23 Yes Sade Rosas MD cholecalciferol (VITAMIN D3) 50,000 units [...] by mouth in the morning. 07/12/23 Yes Sade Rosas MD ferrous sulfate (FERROUSUL) 325 (65 [...] kg/m Cardiac Results: ECHO 2023 PACS Images ([facility]) Show images for Echo complete W/O contrast [...] -3.12 4.22 - 6.39 (cm) Data set: [place] Z-score normal range: +/-1.65 BSA formula: [facility] Doppler Measurements AV AV valve area 5.67 [...] lower thoracic spine. Dr. Maylin Portillo DO. [facility] Office: [phone] [facility] 07-31-2023 History of Present illness Narrative Images from the original note were not included. [address] [address] Date of Service: 07/31/2023 Subjective: Blanca Rudolph [...] with: 1. Stage IV lupus nephritis (WHO) ([facility]) - predniSONE (DELTASONE) 20 mg tablet; Take [...] unspecified SLE type, unspecified organ involvement status ([facility]) - predniSONE (DELTASONE) 20 mg tablet; Take 1 tablet (20 mg total) by mouth in the morning. One tab daily. Dispense: 30 tablet; Refill: 1 - mycophenolate (CELLCEPT) 500 mg tablet; 3 tab twice daily Dispense: 180 tablet; Refill: 3 3. 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 - mycophenolate (CELLCEPT) 500 mg tablet; 3 tab twice daily Dispense: 180 tablet; Refill: 3 4. BMI 39.0-39.9,adult - Ambulatory referral to Buildings And Grounds Superintendent ([facility]); Future At this point patient continued [...] or corrected. Thank you for your understanding. [facility] Rheumatology Dr. Sherman Calle MD [address] [facility] [facility] [address] [place] [address] Office: [phone] documented in this encounter [facility] 07-16-2023 Miscellaneous Notes Patient called in requested office note be faxed to [phone] note faxed per her request documented in this encounter [facility] 07-16-2023 Telephone encounter Note Patient called in requested office note be faxed to [phone] note faxed per her request [facility] 07-16-2023 Miscellaneous Notes Pt is not feeling [...] ER. PT INFORMED. documented in this encounter [facility] 07-16-2023 Telephone encounter Note Pt is not feeling well. Wondering if she was to take medication for it she would be able to take anything other then tylenol. Son tested positive for Flu A. She tested negative at this time. [facility] 07-16-2023 Telephone encounter Note I do not know what kind sickness she is complaining of however she can try Tylenol if that does not work then she can go to ER. [facility] 07-16-2023 Telephone encounter Note PT INFORMED. [facility] 07-16-2023 Miscellaneous Notes Patient called in stating that she is sick and she would like to Zurtec, she is questioning if she would be able to take it along with her Ubrelvy. Best contact for patient [phone] She may take Zyrtec and Ubrelvy together. - [facility] Patient informed and voiced understanding. documented in this encounter [facility] 07-16-2023 Telephone encounter Note Patient called in stating that she is sick and she would like to Zurtec, she is questioning if she would be able to take it along with her Ubrelvy. Best contact for patient [phone] [facility] 07-16-2023 Telephone encounter Note She may take Zyrtec and Ubrelvy together. - [facility] 07-16-2023 Telephone encounter Note Patient informed and voiced understanding. [facility] 07-13-2023 Miscellaneous Notes Fax received from [facility]. A prior authorization is needed for the medication Ubrelvy. Contact: RN has completed PA on CMM. Simons: [id number] documented in this encounter [facility] 07-13-2023 Telephone encounter Note Fax received from [facility]. A prior authorization is needed for the medication Ubrelvy. Contact: [facility] 07-13-2023 Telephone encounter Note RN has completed PA on CMM. Simons: [id number] [facility] 07-12-2023 History of Present illness Narrative Images [...] Date ADD (attention deficit disorder) Angina pectoris ([facility]) Depression DVT (deep vein thrombosis) in Heart murmur History of gestational diabetes History of pre-eclampsia History of delivery History of twin in prior Hypertension Morbid obesity ([facility]) Nephrotic syndrome 11/22/2022 PPH ( hemorrhage) Pulmonary emboli ([facility]) 10/2019 Request for sterilization 02/03/2020 Signed 02/03/2020 [place] Resident SLE (systemic lupus erythematosus) ([facility]) 11/28/2022 Surgical History: Past Surgical History: Procedure Laterality Date REPEAT N/A 04/03/2019 Performed by Aquiles Abbott MD at [facility] OR REPEAT TUBAL LIGATION N/A 06/02/2020 Performed by John Person MD at [facility] OR D AND C SUCTION N/A 03/18/2018 Performed by Kat Jeffers MD at [facility] Social History: Social History Socioeconomic History [...] min Stress: No Stress Concern Present (12/18/2022) [place] [employer] - Occupational Stress Questionnaire Feeling of Stress : Only a little Social Connections: Moderately Integrated (12/18/2022) Social Connection and Isolation Panel [NHANES] Frequency of Communication with Friends and Family: More than three times a week Frequency of Social Gatherings with Friends and Family: More than three times a week Attends Jainism Services: More than 4 times per year [...] Physical Exam Vital Signs: Vitals: 07/12/23 0921 07/12/23926 BP: 136/83 139/88 BP Site: Left Forearm [...] IRONSAT 29 11/22/2022 FERRITIN 317 (H) 11/22/2022 [id number] 512 11/22/2022 FOLATE >25.0 11/22/2022 Mineral and [...] of this patient. Please contact me at [phone] (Office) or [phone] (Answering service) with any questions. Sade Rosas MD [facility] This note was created with the assistance of a speech-recognition program. Although the intention is to generate a document that actually reflects the content of the visit, no guarantees can be provided that every mistake has been identified and corrected by editing. documented in this encounter [facility] 07-06-2023 Note Spoke with patient. No new symptoms. I advised patient that she may be asked to get a repeat. She has a few upcoming appointments at [place] and could get drawn likely at the same time. [facility] 07-06-2023 Note 07/06/2023 Subjective Patient ID: Blanca Rudolph is a 32 y.o. female who presents for Health Maintenance and Exposure to HIV. HPI This is a 48-lsmtc-amd-female patient on Descovy presenting to [facility] for a 3 months follow-up visit for preexposure prophylaxis to prevent HIV infection (PReP). Patient was started on Descovy on 11/2022. The patient reports tolerance and compliance to ART without adverse reaction. Of note, the patient was found to have a RPR titer of 1:1024 on 11/22/2022 during her autoimmune work-up at [facility] for SLE and nephrotic syndrome. 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 [facility] 07-06-2023 Miscellaneous Notes Patient is calling in to inform us of some more family history. Patient stated that her aunt and mother also have high blood pressure, and her grandmother as well had kidney issues and was on dialysis CHART UPDATED documented in this encounter [facility] 07-06-2023 Telephone encounter Note Patient is calling in to inform us of some more family history. Patient stated that her aunt and mother also have high blood pressure, and her grandmother as well had kidney issues and was on dialysis [facility] 07-06-2023 Telephone encounter Note [facility]ATED [facility] 07-05-2023 History of Present illness Narrative [facility] Office Note 07/05/2023 10:19 AM Patient info: Blanca Rudolph is a 32 y.o. female Account No.: [id number] Acct: : 1990 PCP: Billy Zelaya PA-C [...] of significant head injury/trauma: (-) hx of COMMUNITY HEALTH ADVISOR infection: (-) hx of stroke or cerebrovascular [...] the office in 2 months in the [place] office Electronically Signed by: Pasquale Alexander PA-C 07/05/23 1213 documented in this encounter [facility] 07-05-2023 History of Present illness Narrative Patient had video visit to Continue Xarelto 20 mg daily. Follow-up in 1 year with CBC CMP prior to visit. Dr. Warren will leave instruction for preop preparation for patient's oophorectomy surgery August 15. documented in this encounter [facility] 07-05-2023 History of Present illness Narrative Images from the original note were not included. [facility] visit per patient's request. 07/05/23 Blanca Rudolph [...] that there are some limitations compared to [id number] evaluations. We elected to proceed. History of [...] Date ADD (attention deficit disorder) Angina pectoris ([facility]) Depression DVT (deep vein thrombosis) in Heart murmur History of gestational diabetes History of pre-eclampsia History of delivery History of twin in prior Hypertension Morbid obesity ([facility]) Nephrotic syndrome 11/22/2022 PPH ( hemorrhage) Pulmonary emboli ([facility]) 10/2019 Request for sterilization 02/03/2020 Signed 02/03/2020 [place] Resident SLE (systemic lupus erythematosus) ([facility]) 11/28/2022 Past Surgical History: Procedure Laterality Date REPEAT N/A 04/03/2019 Performed by Aquiles Abbott MD at [facility] OR REPEAT TUBAL LIGATION N/A 06/02/2020 Performed by John Person MD at [facility] OR D AND C SUCTION N/A 03/18/2018 Performed by Kat Jeffers MD at [facility] Family History Problem Relation Age of Onset [...] min Stress: No Stress Concern Present (12/18/2022) [place] [employer] - Occupational Stress Questionnaire Feeling of Stress : Only a little Social Connections: Moderately Integrated (12/18/2022) Social Connection and Isolation Panel [NHANES] Frequency of Communication with Friends and Family: More than three times a week Frequency of Social Gatherings with Friends and Family: More than three times a week Attends Jainism Services: More than 4 times per year [...] Fibromyalgia Dose: 10 mg Signed by: Dr. Calle 10 mg, oral, Nightly Commonly known as: [...] Refills: 0 Dose: 25 mg Signed by: MIMA Pereyra 25 mg, oral, 2 times daily Commonly known as: LOPRESSOR multivitamin tablet Refills: 0 Dose: 1 tablet Commonly known as: THERAGRAN mycophenolate 500 mg tablet Quantity: 180 tablet Refills: 3 For diagnoses: Stage IV lupus nephritis (WHO) ([facility]), Systemic lupus erythematosus, unspecified SLE type, unspecified organ involvement status ([facility]), Encounter for senior care use of mycophenolate mofetil Signed by: Dr. [...] For diagnoses: Stage IV lupus nephritis (WHO) ([facility]), Systemic lupus erythematosus, unspecified SLE type, unspecified organ involvement status ([facility]) Dose: 20 mg Signed by: Dr. Calle [...] 12/31/2019 10:44) ---- PATIENT INFO: ID #: [id number] : [birth year] (29 yrs)(F) Name: BLANCA DIAZ Visit Date: 12/30/2019 14:15 RONNI ---- PERFORMED BY: Performed By: Ashwin Guallpa RDMS Attending: Samuel Beltran MD Referred By: Brandy Alexis MD Ref. Address: [address] [place] [address] Sourav paxton [place] [address] Location: [facility] ---- SERVICE(S) PROVIDED: Basic OB >/= 14 weeks, 1 fetus [id number] ---- INDICATIONS: Other suspected or known abnormality [...] time. ---- ---- RECOMMENDATIONS: 1. Please see [facility] consultation letter from today. 2. Patient is [...] 1.035 Leukocyte esterase BRENDEN Negative Negative^Negative Nitrite BRENDEN Negative Negative^Negative Ph 5.5 5.0 - 8.5 [...] 30 - 100 ng/mL Urinalysis Collection Time: 02/29/24 10:42 AM Result Value Ref Range Color [...] Protein Urine Random 1,070 (H) <120 mg/L U/Pro/Environmental Marketer Ratio Calc 0.70 (H) <0.2 Parathyroid Hormone, [...] Protein Urine Random 1,070 (H) <120 mg/L U/Pro/Environmental Marketer Ratio Calc 0.71 (H) <0.2 Diagnosis Problem list: Problem List Items Addressed This Visit None Impression: Unprovoked right-sided lower extremity DVT during 2018 Recurrent left-sided lower extremity DVT with pulmonary [...] this note were generated using voice recognition SparkupReader dictation software. Although every effort was made to ensure the accuracy of this automated medical operations supervisor, some errors in medical operations supervisor may have occurred. CC: Patient Care Team: Billy Zelaya PA-C as PCP - General (Physician Insole Stiffener) Anna Kaur RN as Registered Nurse (Obstetrics) Sherman Calle MD as Referring Physician (Rheumatology) Mayco Albright DO as Referring Physician (Obstetrics and Gynecology) PCP:Billy Zelaya Referring MD: No ref. provider found documented in this encounter [facility] 07-05-2023 Instructions Tuyet Warren MD - 07/05/2023 9:00 AM EST Continue Xarelto 20 mg daily. Follow-up in 1 year with CBC CMP prior to visit. I will leave instruction for preop preparation for patient's oophorectomy surgery August 15. documented in this encounter [facility] 07-04-2023 History of Present illness Narrative Images from the original note were not included. [address] [address] Date of Service: 07/04/2023 Subjective: Blanca Rudolph [...] unspecified SLE type, unspecified organ involvement status ([facility]) - mycophenolate (CELLCEPT) 500 mg tablet; 3 [...] Future 2. Stage IV lupus nephritis (WHO) ([facility]) - mycophenolate (CELLCEPT) 500 mg tablet; 3 [...] Unlisted Lab Test; Future 3. 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 - mycophenolate (CELLCEPT) 500 mg tablet; 3 tab twice daily Dispense: 180 tablet; Refill: 3 - CBC auto differential; Future 4. watermelon inspector systemic steroid user 5. Fibromyalgia - amitriptyline [...] or corrected. Thank you for your understanding. [facility] Rheumatology Dr. Sherman Calle MD [address], [address] [place] [address] Office: [phone] documented in this encounter [facility] 07-03-2023 Miscellaneous Notes Surgeon: Dr. Albright Type of surgery: D&C Diagnostic Lap/ Hysteroscopy Date of surgery: 07/06/23 Surgery location: [place] Type of anesthesia: General On a blood [...] surgery when safe to do so. Clearance faxed and Viviane notified to address documented in this encounter [facility] 07-03-2023 Telephone encounter Note Surgeon: Dr. Albright Type of surgery: D&C Diagnostic Lap/ Hysteroscopy Date of surgery: 07/06/23 Surgery location: [place] Type of anesthesia: General On a blood thinner?: xarelto Indication? DVT/Pulmonary emboli On an antiplatelet?: ASA 81 mg Date of last EK06/19/23 Last office visit date and who they saw: 06/27/23- Dr. Harmon Their preference of how long to hold blood thinners/antiplatelet: Would like to hold ASA & Xarelto 3 days History of DVT/PE? Yes ATTN: Viviane Harmon messaged [facility] 07-03-2023 Telephone encounter Note She would be [...] after surgery when safe to do so. [facility] 07-03-2023 Telephone encounter Note Clearance faxed and Viviane notified to address [facility] 06-28-2023 Miscellaneous Notes Pt called in regards to getting her appt with [facility] rescheduled. Messaged [facility] who stated to have the pt seen in [place] with MD. Next week did not work for her so I informed her I would give her a call around 07/05/23 to try to get her scheduled for the week of 07/09/23. Called pt and scheduled follow up in [place] per [facility]. documented in this encounter [facility] 06-28-2023 Telephone encounter Note Pt called in regards to getting her appt with [facility] rescheduled. Messaged [facility] who stated to have the pt seen in [place] with MD. Next week did not work for her so I informed her I would give her a call around 07/05/23 to try to get her scheduled for the week of 07/09/23. [facility] 06-28-2023 Telephone encounter Note Called pt and scheduled follow up in [place] per [facility]. [facility] 06-21-2023 Miscellaneous Notes Patient is almost out of medication. Appointment is 07/04/23 documented in this encounter [facility] 06-21-2023 Telephone encounter Note Patient is almost out of medication. Appointment is 07/04/23 [facility] 06-19-2023 Miscellaneous Notes Pt was returning my call to inform me she was in ED and may be admitted to hospital d/t sob and chest pain. I was following up to see how she was feeling. She had no question or concerns for our office at this time. documented in this encounter [facility] 06-19-2023 Telephone encounter Note Pt was returning my call to inform me she was in ED and may be admitted to hospital d/t sob and chest pain. I was following up to see how she was feeling. She had no question or concerns for our office at this time. [facility] 06-18-2023 Miscellaneous Notes Patient called wanting to speak with a nurse to notify office of everything that's been going on with cardiology, and update on upcoming procedures. tried to call pt she currently in [facility] ed,she might try to call back documented in this encounter [facility] 06-18-2023 Telephone encounter Note Patient called wanting to speak with a nurse to notify office of everything that's been going on with cardiology, and update on upcoming procedures. [facility] 06-18-2023 Telephone encounter Note tried to call pt she currently in [facility] ed,she might try to call back [facility] 06-14-2023 Miscellaneous Notes Blanca states that she would like to know the results of the blood work and, she did complete the stress test, she also states she has been having bad headaches,she is not take any tylenol for the pain. Dehydrator Operator advised the patient that the nurse will be notified. [phone] documented in this encounter [facility] 06-14-2023 Telephone encounter Note Blanca states that she would like to know the results of the blood work and, she did complete the stress test, she also states she has been having bad headaches,she is not take any tylenol for the pain. Dehydrator Operator advised the patient that the nurse will be notified. [phone] [facility] 06-13-2023 Miscellaneous Notes spoke with patient and confrim appt with Dr. Bain in [place] and will have labs done tomorrow documented in this encounter [facility] 06-13-2023 Telephone encounter Note spoke with patient and confrim appt with Dr. Bain in [place] and will have labs done tomorrow [facility] 06-13-2023 Evaluation note Diagnosis Stage IV lupus nephritis (WHO) ([facility])- Primary Stage 3 chronic kidney disease, unspecified whether stage 3a or 3b CKD ([facility]) documented in this encounter [facility]02-12-2024 Miscellaneous Notes* Telephone Encounter - Keke Montero [...] back abnormal now she is seeing a olive grower and will be doing a stress test. She also states her PCP changed she her blood pressure medication. Blanca states that heart looked enlarged when she had it check a few years ago, but Dr. Bain told her it looked fine,yet her olive grower is telling her other espitia. Blanca states that she hopes this stress test will let he know what is really going with her heart, and she would like to speak with the nurse to give more details on what is going on. Blanca requested a refill on the Bumex 2 mg. Call back [phone] * Telephone Encounter - Nora Oconnor LPN [...] that she may have documented [facility] Telephone encounter Note* Telephone Encounter - Keke [...] back abnormal now she is seeing a olive grower and will be doing a stress test. She also states her PCP changed she her blood pressure medication. Blanca states that heart looked enlarged when she had it check a few years ago, but Dr. Bain told her it looked fine,yet her olive grower is telling her other espitia. Blanca states that she hopes this stress test will let he know what is really going with her heart, and she would like to speak with the nurse to give more details on what is going on. Blanca requested a refill on the Bumex 2 mg. Call back [phone] [facility]02-12-2024 Telephone encounter Note* Telephone Encounter - Nora [...] patient is not monitoring BP at home [facility]02-12-2024 Telephone encounter Note* Telephone Encounter - Nora Oconnor LPN - 06/11/2023 9:03 AM EST Spoke with pt and she consulted cardiology and she stated they advised her to continue new medication at this time. She still expressed concerns, but will keep in touch with office about and questions that she may have [facility]02-07-2024 Miscellaneous Notes* Telephone Encounter - Irasema Corbin [...] Simone Franklin MD 06/06/2023 8:35 AM EST Kzg-eu-mprojpen risk Irasema Corbin RN 06/06/2023 7:25 AM [...] from previous then would clear her ubaldo bnz-ol-mtsnidgn risk. She is able to do at least 4 metabolic equivalents in her daily life. LV 60-65%, mild wall thickness/hypertrophy LA - moderately dilated. * Telephone Encounter - Irasema Corbin RN - 06/06/2023 1:12 PM EST Irasema Corbin RN 06/06/2023 1:42 PM EST Back to Top Echo results and BDs recommendations called and reviewed with patient. Pt mentions calling the [facility] office this morning d/t chest discomfort and BD ordered a nuc stress exe now scheduled for 06/14/23. Will hold off sending the Preop clearance until BD reviews stress results. Message sent to [facility] office to FYI. [facility] Telephone encounter Note* Telephone Encounter - Irasema [...] Simone Franklin MD 06/06/2023 8:35 AM EST Nlx-vm-tikazxnz risk Irasema Corbin RN 06/06/2023 7:25 AM [...] from previous then would clear her ubaldo mha-yl-oghxeslk risk. She is able to do at least 4 metabolic equivalents in her daily life. LV 60-65%, mild wall thickness/hypertrophy LA - moderately dilated. [facility]02-07-2024 Telephone encounter Note* Telephone Encounter - Irasema Corbin RN - 06/06/2023 1:12 PM EST Irasema Corbin RN 06/06/2023 1:42 PM EST Back to Top Echo results and BDs recommendations called and reviewed with patient. Pt mentions calling the [facility] office this morning d/t chest discomfort and BD ordered a nuc stress exe now scheduled for 06/14/23. Will hold off sending the Preop clearance until BD reviews stress results. Message sent to [facility] office to FYI. [facility] [id number] Miscellaneous Notes* Telephone Encounter - Digna Valladares RN - 06/06/2023 9:59 AM EST Received p/c from pt. Has been in ER for chest pain 2/4 ,2/5,2/6 for chest pain. Pt states pain gets [...] unstable angina * Telephone Encounter - Digna Valladares RN - 06/06/2023 9:59 AM EST Pt notified. Orders placed. Pt given central scheduling number to call and arrange * Telephone Encounter - Irasema Corbin RN - 06/06/2023 9:59 AM EST ++++++++PREOP PENDING STRESS RESULTS++++++++++++ documented in [facility] Telephone encounter Note* Telephone Encounter - Digna Valladares RN - 06/06/2023 9:59 AM EST Received p/c from pt. Has been in ER for chest pain 2/4 ,2/5,2/6 for chest pain. Pt states pain gets [...] discomfort. Last saw Dr. Franklin. Any suggestions? [facility]02-07-2024 Telephone encounter Note* Telephone Encounter - Simone Franklin MD - 06/06/2023 9:59 AM EST Please order treadmill nuclear stress test for unstable angina [facility]02-07-2024 Telephone encounter Note* Telephone Encounter - Digna Valladares RN - 06/06/2023 9:59 AM EST Pt notified. Orders placed. Pt given central scheduling number to call and arrange [facility]02-07-2024 Telephone encounter Note* Telephone Encounter - Irasema Corbin RN - 06/06/2023 9:59 AM EST ++++++++PREOP PENDING STRESS RESULTS++++++++++++ [facility] [id number] Miscellaneous Notes* Telephone Encounter - Kirstie Sung - 06/05/2023 [...] -06/19/2023 with Pasquale Alexander documented in [facility]24 Telephone encounter Note* Telephone Encounter - Kirstie [...] IS SCHEDULED ON/WITH: -06/19/2023 with Pasquale Alexander [facility] [id number] Miscellaneous Notes* Telephone Encounter - Aster Guthrie CMA - 06/04/2023 8:29 AM EST Blanca called stated she went to the hospital yesterday in [place] she was having a bad flare and her heart was beating 100 bpm. She has her EMG scheduled on June 08 and her ECHO scheduled June 05. She also stated the olive grower wouldn't do anything for her until she [...] other medical dx.Please advise documented in this encounterOhio[facility] [id number] Telephone encounter Note* Telephone Encounter - Aster Guthrie CMA - 06/04/2023 8:29 AM EST Blanca called stated she went to the hospital yesterday in [place] she was having a bad flare and her heart was beating 100 bpm. She has her EMG scheduled on June 08 and her ECHO scheduled June 05. She also stated the olive grower wouldn't do anything for her until she gets her ECHO done. She ask if you can look at her chart from yesterday. Please advise. Thanks [facility]02-05-2024 Telephone encounter Note* Telephone Encounter - Aster [...] of her whole body??? Please advise. Thanks [facility]02-05-2024 Telephone encounter Note* Telephone Encounter - Sherman Calle MD - 06/04/2023 8:29 AM EST Will discuss the need for EMG when she come to the clinic as there might be no need for that [facility]02-05-2024 Telephone encounter Note* Telephone Encounter - Aster Guthrie CMA - 06/04/2023 8:29 AM EST ..Spoke with Blanca gave message from dr calle. Pt understood [facility]02-05-2024 Telephone encounter Note* Telephone Encounter - Clemencia [...] kidneys and her other medical dx.Please advise [facility]01-19-2024 Miscellaneous Notes* Telephone Encounter - Cynthia Dodge CMA - 05/18/2023 2:14 PM EST Left message for patient to remind them to bring their most current medication list with them to their appointment. documented in this encounterFair[facility] Center01-19-2024 Telephone encounter Note* Telephone Encounter - Cynthia Dodge CMA - 05/18/2023 2:14 PM EST Left message for patient to remind them to bring their most current medication list with them to their appointment. [facility]12-27-2023 History of Present illness Narrative* Dee Dee [...] FOR CLEARANCE IS 05/18/23 documented in this encounterFair[facility] Center12-08-2023 Note04/06/2023 Subjective Patient ID: Blanca Rudolph is a 32 y.o. female HPI: This is a 67-rikvj-fck-female patient on [place] presenting to [facility] for a 3 month follow-up visit for preexposure prophylaxis to prevent HIV infection (PReP). The patient reports tolerance and compliance to ART without adverse reaction. Of note, the patient was found to have a RPR titer of 1:1024 on 11/22/2022 during her autoimmune work-up at [facility] for SLE and nephrotic syndrome. 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 Ajut-jsy-wvetxpr medicines to treat discomfort. Drinking enough water [...] Follow these instructions at home: Medicines Take mdpn-ypg-kbliutx and prescription medicines only as told by [...] provider. Document Revised: 11/26/2020 Document Reviewed: 11/26/2020 [email or web address] Patient Education 2022 [employer]. Follow Up Care 08/15/2022 10:04:33 With:CYNTHIA GALLARDO PA-C, URL Address: [address] [place] [address] Business (1) When:6 months [facility] Hospital Discharge instructions Patient Education 08/10/2022 [...] powder, vinegar, hot sauces, and barbecue sauce. ?Anderson fruit juices and citrus fruits, such as oranges, shirley, and limes. ?Tomato-based foods, such as red sauce, chili, salsa, and pizza with red sauce. ?Fried and fatty foods, such as donuts, panamanian fries, potato chips, and high-fat dressings. ?High-fat [...] to any changes in your symptoms. Take yhbz-idi-jofxxba and prescription medicines only as told by [...] you have new or worsening symptoms. Take xptg-rto-xrhseim and prescription medicines only as told by [...] 01/24/2006 Document Revised: 10/23/2018 Document Reviewed: 10/23/2018 [email or web address] Patient Education 2020 [employer]. 08/10/2022 11:48:18 Gastritis, Adult Gastritis, Adult Gastritis [...] medicines. These include steroids, antibiotics, and some fedr-pip-kokgajy medicines, such as aspirin or ibuprofen. Having [...] Follow these instructions at home: Medicines Take dbjt-zwn-disvkai and prescription medicines only as told by [...] 04/10/2002 Document Revised: 09/03/2018 Document Reviewed: 09/03/2018 [email or web address] Patient Education 2020 [employer]. Follow Up Care 07/24/2022 08:58:51 With:Katrin Resendiz CNP Address: When:[address] [facility] 03-14-2023 Evaluation + Plan noteExtracted from: Title:CSB GA Author:Brett Prince MD Date:07/11/22 Plan [place] [employer] Anesthesiologists (ASA) physical status classification: Class III. Anesthetic Preoperative Plan: Anesthesia General. Future Appointments Appointment Date:07/17/2022 11:40:00 AM Scheduled Provider:Miki Mauricio MD Location:[facility] Appointment Type: Post Op 15 [facility]03-14-2023 Hospital Discharge instructions Patient Education 07/11/2022 09:54:16 [...] and water are not available, use hand lace roller operator. ?Change your dressing as told by your [...] health care provider approves. General instructions Take morl-ifp-mbcehtm and prescription medicines only as told by your health care provider. To prevent or treat constipation while you are taking prescription pain medicine, your health care provider may recommend that you: ?Drink enough fluid to keep your urine clear or pale yellow. ?Take dmii-ceo-fjjtxux or prescription medicines. ?Eat foods that are [...] 04/16/2006 Document Revised: 03/29/2018 Document Reviewed: 10/02/2016 [email or web address] Patient Education 2020 [employer] Follow Up Care 06/26/2022 11:12:42 With:Miki Mauricio Address: [address] [place] [phone] Business (1) When: Unknown Comments:Appointment has already been scheduled [facility]07-01-2020 Evaluation note* Diagnosis Bilateral pulmonary embolism (CMS-HCC) October 2019- Primary Other pulmonary embolism and infarction History of DVT (deep vein thrombosis) Preoperative clearance Unspecified pre-operative examination documented [facility] encounter [facility]* Diagnosis Bilateral pulmonary embolism (CMS-HCC) October 2019- Primary Other pulmonary embolism and infarction Personal history of PE (pulmonary embolism) Personal history of venous thrombosis and embolism Dyspnea on exertion Other dyspnea and respiratory abnormality Environmental allergies Other allergy, other than to medicinal agents documented [facility] this encounter [facility] Future Appointments Appointment Date:03/03/2022 12:45:00 PM Scheduled Provider: Location:[facility] Appointment Type:Surgery PAT COVID Testing Appointment Date:03/10/2022 01:00:00 PM Scheduled Provider: Location:[facility] Appointment Type:Surgery FT [facility] evaluation + Plan note Future Appointments Appointment Date:03/13/2023 02:30:00 PM Scheduled Provider:CYNTHIA GALLARDO PA-C Location:[facility] Appointment Type:URO Office Visit [facility] evaluation + Plan note Future Appointments Appointment Date:01/29/2024 11:00:00 AM Scheduled Provider:CYNTHIA GALLARDO PA-C Location:[facility] Appointment Type:URO Office Visit [facility] [employer] Evaluation note* Diagnosis Angina pectoris, unstable ([facility])- Primary Intermediate coronary syndrome documented [facility] Diagnosis Systemic lupus erythematosus, unspecified SLE type, unspecified organ involvement status ([facility])- Primary Stage IV lupus nephritis (WHO) ([facility]) Encounter for senior care use of mycophenolate mofetil jail systemic steroid user Fibromyalgia Unspecified myalgia and myositis documented [facility] Diagnosis Bilateral pulmonary embolism ([facility])- Primary Other pulmonary embolism and infarction [facility] Diagnosis Daily headache- Primary Migraine without aura and without status migrainosus, not intractable Vision changes Uncontrolled hypertension Fibromyalgia Unspecified myalgia and myositis documented [facility]* Diagnosis Lupus nephritis ([facility])- Primary Systemic lupus erythematosus Essential hypertension Unspecified essential hypertension documented [facility]* Diagnosis BMI 39.0-39.9,adult- Primary Stage IV lupus nephritis (WHO) ([facility]) Systemic lupus erythematosus, unspecified SLE type, unspecified organ involvement status ([facility]) Encounter for senior care use of mycophenolate mofetil documented in this encounter [facility] noteNo assessment information available [facility] Work Phone: Hospital course Narrative No data available for this section [facility] Hospital Discharge instructions No data available for this section [facility] InstructionsNot on filedocumented in [...] data available for this section [facility] Reason for referral (narrative)* Consultation (Routine) - Pending Review Specialty Diagnoses / Procedures Referred By Noris lassiter Referred To Contact Nutrition Diagnoses BMI 39.0-39.9,adult Sherman Calle MD [address] [address] Yazmin Vieira, RD [address] [facility] [place] [address] Referral ID Status Reason Start Date Expiration Date V isits Requested Visits Authorized [id number] Pending Review 07/31/2023 07/30/2024 1 1 [facility] Summary Purpose Family History No [...] Referral Specialty Diagnoses / Procedures Referred By Contac t Referred To Contact Diagnoses Daily headache Migraine without aura and without status migrainosus, not intractable Fibromyalgia Pasquale Alexander PA-C [address] [place] [address] Referral ID Status Reason Start Date Expiration Date V isits Requested Visits Authorized [id number] Pending Review 1 1 Specialty Diagnoses / Procedures Referred By Contac t Referred To Contact Diagnoses Migraine without aura and without status migrainosus, not intractable Uncontrolled hypertension Pasquale Alexander PA-C [address] [place] [address] Referral ID Status Reason Start Date Expiration Date V isits Requested Visits Authorized [id number] Pending Review 1 1 Specialty Diagnoses / Procedures Referred By Contac t Referred To Contact Radiology Diagnoses Daily headache Migraine without aura and without status migrainosus, not intractable Vision changes Procedures MR brain without contrast Pasquale Alexander PA-C [address] [place] [address] Referral ID Status Reason Start Date Expiration Date V isits Requested Visits Authorized [id number] Pending Review 07/05/2023 07/04/2024 1 1 Specialty Diagnoses / Procedures Referred By Contac t Referred To Contact Diagnoses Fibromyalgia Sherman Calle MD [address] [address] Referral ID Status Reason Start Date Expiration Date Visits Re quested Visits Authorized [id number] Closed 1 1 Specialty Diagnoses / Procedures Referred By Contac t Referred To Contact Diagnoses Angina pectoris, unstable ([facility]) Procedures Nuc stress exercise Simone Franklin MD [address] [place] [address] Referral ID Status Reason Start Date Expiration Date V isits Requested Visits Authorized [id number] Pending Review 06/06/2023 06/05/2024 5 5 Additional Source Comments Patient Care team informatio n (unrecognized section and content) Reproductive Healthcare Assistant Relationship Specialty Start Date End Date Billy Zelaya PA-C [address] [place] [address] PCP - General Physician Insole Stiffener 03/17/23 Reproductive Healthcare Assistant Relationship Specialty Start Date End Date Billy Zelaya PA-C [address] [place] [address] PCP - General Physician Insole Stiffener 05/10/23 Reproductive Healthcare Assistant Relationship Specialty Start Date End Date Billy Zelaya PA-C [address] [place] [address] PCP - General Physician Insole Stiffener 05/10/23 Reproductive Healthcare Assistant Relationship Specialty Start Date End Date Billy Zelaya PA-C [address] [place] [address] PCP - General Physician Insole Stiffener 06/05/23 Reproductive Healthcare Assistant Relationship Specialty Start Date End Date Billy Zelaya PA-C [address] [place] [address] PCP - General Physician Insole Stiffener 06/05/23 Reproductive Healthcare Assistant Relationship Specialty Start Date End Date Billy Zelaya PA-C [address] [place] [address] PCP - General Physician Insole Stiffener 06/05/23 Reproductive Healthcare Assistant Relationship Specialty Start Date End Date Billy Zelaya PA-C [address] [place] [address] PCP - General Physician Insole Stiffener 06/05/23 Reproductive Healthcare Assistant Relationship Specialty Start Date End Date Billy Zelaya PA-C [address] [place] [address] PCP - General Physician Insole Stiffener 06/05/23 Reproductive Healthcare Assistant Relationship Specialty Start Date End Date Billy Zelaya PA-C [address] [place] [address] PCP - General Physician Insole Stiffener 06/05/23 Reproductive Healthcare Assistant Relationship Specialty Start Date End Date Billy Zelaya PA-C [address] [place] [phone] PCP - General Physician Insole Stiffener 06/05/23 Reproductive Healthcare Assistant Relationship Specialty Start Date End Date Billy Zelaya PA-C [address] [place] [phone] PCP - General Physician Insole Stiffener 06/05/23 Reproductive Healthcare Assistant Relationship Specialty Start Date End Date Billy Zelaya PA-C [address] [place] [phone] PCP - General Physician Insole Stiffener 06/05/23 Reproductive Healthcare Assistant Relationship Specialty Start Date End Date Billy Zelaya PA-C [address] [place] [phone] PCP - General Physician Insole Stiffener 06/05/23 Reproductive Healthcare Assistant Relationship Specialty Start Date End Date Billy Zelaya PA-C [address] [place] [phone] PCP - General Physician Insole Stiffener 06/05/23 Reproductive Healthcare Assistant Relationship Specialty Start Date End Date Billy Zelaya PA-C [address] [place] [phone] PCP - General Physician Insole Stiffener 06/05/23 Reproductive Healthcare Assistant Relationship Specialty Start Date End Date Billy Zelaya PA-C [address] [place] [phone] PCP - General Physician Insole Stiffener 06/05/23 Reproductive Healthcare Assistant Relationship Specialty Start Date End Date Billy Zelaya PA-C [address] [place] [phone] PCP - General Physician Insole Stiffener 06/05/23 Reproductive Healthcare Assistant Relationship Specialty Start Date End Date Billy Zelaya PA-C [address] [place] [id number] PCP - General Physician Insole Stiffener 06/05/23 Reproductive Healthcare Assistant Relationship Specialty Start Date End Date Billy Zelaya PA-C [address] [place] [phone] PCP - General Physician Insole Stiffener 06/05/23 Reproductive Healthcare Assistant Relationship Specialty Start Date End Date Billy Zelaya PA-C [address] [place] [phone] PCP - General Physician Insole Stiffener 06/05/23 Reproductive Healthcare Assistant Relationship Specialty Start Date End Date Billy Zelaya PA-C [address] [place] [phone] PCP - General Physician Insole Stiffener 06/05/23 Reproductive Healthcare Assistant Relationship Specialty Start Date End Date Billy Zelaya PA-C [address] [place] [phone] PCP - General Physician Insole Stiffener 06/05/23 Reproductive Healthcare Assistant Relationship Specialty Start Date End Date Billy Zelaya PA-C [address] [place] [id number] PCP - General Physician Insole Stiffener 06/05/23 Reproductive Healthcare Assistant Relationship Specialty Start Date End Date Billy Zelaya PA-C [address] [place] [phone] PCP - General Physician Insole Stiffener 06/05/23 Reproductive Healthcare Assistant Relationship Specialty Start Date End Date Billy Zelaya PA-C [address] [place] [phone] PCP - General Physician Insole Stiffener 06/05/23 Team Status: Inactive Member Role Status Dates Mayco Albright Attending Provider Active Start: Ap 2023 End: August 16, 2023 INFORMATION SOURCE (unrecogn ized section and content) DATE CREATED AUTHOR 03/23/2022 [facility] DATE CREATED AUTHOR AUTHOR'S ORGANIZ ATION 02/12/2023 [facility] DATE CREATED AUTHOR AUTHOR'S ORGANIZ ATION 06/11/2023 [facility] DATE CREATED AUTHOR AUTHOR'S ORGANIZ ATION 07/01/2023 [facility] DATE CREATED AUTHOR AUTHOR'S ORGANIZ ATION 08/03/2023 [facility] DATE CREATED AUTHOR AUTHOR'S ORGANIZ ATION 08/22/2023 [facility] DATE CREATED AUTHOR AUTHOR'S ORGANIZ ATION 10/24/2023 [facility] DATE CREATED AUTHOR AUTHOR'S ORGANIZ ATION 11/17/2023 [facility] DATE CREATED AUTHOR AUTHOR'S ORGANIZ ATION 12/10/2023 [facility] DATE CREATED AUTHOR AUTHOR'S ORGANIZ ATION 12/25/2023 [facility] DATE CREATED AUTHOR AUTHOR'S ORGANIZ ATION 01/14/2024 [facility] DATE CREATED AUTHOR AUTHOR'S ORGANIZ ATION 01/19/2024 [facility] DATE CREATED AUTHOR AUTHOR'S ORGANIZ ATION 01/21/2024 [facility] Reason for Visit (unrecogniz ed section and content) Reason Onset Date Comments Cardiac Clearance 06/06/2023 Reason Comments Med Refill Reason Onset Date Comments Surgical Or Dental Clearance 07/03/2023 Reason Comments New Patient Specialty Diagnoses / Procedures Referred By Contac t Referred To Contact Neurology Diagnoses Nonintractable headache, unspecified chronicity pattern, unspecified headache type Billy Zelaya PA-C [address] [place] [address] James Ha MD [phone] [place] [address] MAVIS Berry, [place] [address] Referral ID Status Reason Start Date Expiration Date Visits Requested Visits Authorized [id number] Pending Review Specialty Services Required 05/30/2023 05/29/2024 1 1 Reason Onset Date Comments Prior Authorization 07/13/2023 Reason Comments New Patient PATIENT HAS LUPUS/FI BROMALAGIA AND DX IN OCTOBER 2022 Cough DENIES Wheezing DENIES Shortness of Breath DENIES Specialty Diagnoses / Procedures Referred By Contac t Referred To Contact Pulmonary Medicine Diagnoses Personal history of PE (pulmonary embolism) Billy Zelaya PA-C [address] [place] [address] [facility] Sleep [facility] [address] [place] [address] Referral ID Status Reason Start Date Expiration Date Visits Requested Visits Authorized [id number] Pending Review Specialty Services Required 06/12/2023 06/11/2024 1 1 Goals (unrecognized section and content) Goals may be documented in a n alternate section FOR RECORDS PERTAINING TO PATIENTS WHO ARE [...] BE BASED ON THE PRIMARY CLINICAL RECORDS. [facility]. provides no warranty or guarantee of the accuracy or completeness of information in this document.
--- NOTE | 2024-01-25 10:14 | ED_ITS ---
HPI HPI - General Adult General Chief complaint: Neck Pain/Injury Stated complaint: CVA LIKE SYMPTOMS Time Seen by Provider: 01/25/24 09:39 Source: patient and family Mode of arrival: walk-in Limitations: no limitations History of Present Illness HPI narrative: 33-year-old female presents for weakness on the right side of her face. 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 She wanted to be sure. She states that the symptoms really started 2 days ago and seem to get a little bit worse yesterday and a little bit more worse today. Symptoms are localized to the right side of her face and no symptoms in her arms or legs. She does not have any headache and there was no trauma. She states she did not have a CAT scan at the other hospital yesterday. Related Data Home Medications ?Medication ?Instructions ?Recorded ?Confirmed B-12 Compliance 10/01/22 ferrous sulfate 325 mg (65 mg 325 mg PO DAILY 10/01/22 08/16/23 iron) tablet (FeroSul) acetaminophen 500 mg tablet 500 mg PO Q6H PRN pain 12/13/22 08/16/23 allopurinol 100 mg tablet 100 mg PO DAILY 12/13/22 08/16/23 bumetanide 2 mg tablet 2 mg PO Q12H 12/13/22 08/16/23 magnesium oxide 400 mg (241.3 mg 400 mg PO .12HR 12/13/22 08/16/23 magnesium) tablet mycophenolate mofetil 250 mg 1,500 mg PO Q12H 12/13/22 08/16/23 capsule prednisone 20 mg tablet 20 mg PO DAILY 12/13/22 08/16/23 rivaroxaban 20 mg tablet (Xarelto) 20 mg PO DAILY 12/13/22 08/16/23 albuterol sulfate 90 mcg/actuation 2 inh inhalation Q4H PRN shortness 05/07/23 08/16/23 aerosol inhaler of breath or wheezing emtricitabine 200 mg-tenofovir 1 tab PO QPM 05/07/23 08/16/23 alafenamide fumarate 25 mg tablet (Descovy) ergocalciferol (vitamin D2) 1,250 50,000 unit PO QWEEK 05/07/23 08/16/23 mcg (50,000 unit) capsule (Vitamin D2) medroxyprogesterone 10 mg tablet 10 mg PO DAILY 05/07/23 08/16/23 potassium chloride 20 mEq 20 meq PO BID 05/07/23 08/16/23 tablet,extended release(part/cryst) amitriptyline 25 mg tablet 25 mg PO DAILY 08/06/23 08/16/23 aspirin 81 mg tablet,delayed 81 mg PO DAILY 08/06/23 08/16/23 release (Adult Aspirin Regimen) carvedilol 6.25 mg tablet (Coreg) 6.25 mg PO BID 08/06/23 08/16/23 cetirizine 10 mg tablet 10 mg PO DAILY 08/06/23 08/16/23 dicyclomine 10 mg capsule 10 mg PO DAILY 08/06/23 08/16/23 etonogestrel 68 mg subdermal subdermal 08/06/23 implant (Nexplanon) famotidine 20 mg tablet (Pepcid) 20 mg PO DAILY 08/06/23 08/16/23 methocarbamol 750 mg tablet 750 mg PO Q8H PRN muscle pain 08/06/23 08/16/23 ubrogepant 50 mg tablet (Ubrelvy) 50 mg PO DAILY PRN migraine 08/06/23 08/16/23 headache Previous Rx's ?Medication ?Instructions ?Recorded hydrocodone 5 mg-acetaminophen 325 1 tab PO Q4H PRN pain 4 days #16 08/16/23 mg tablet tabs ibuprofen 800 mg tablet 800 mg PO Q8H PRN pain 14 days #40 08/16/23 tabs Allergies Allergy/AdvReac Type Severity Reaction Status Date / Time Sulfa (Sulfonamide Allergy Unknown Verified 08/06/23 09:29 Antibiotics) cephalexin [From Keflex] AdvReac Verified 08/06/23 09:29 ibuprofen [From Motrin] AdvReac Verified 08/06/23 09:29 Opioid HPI Opioid Management Most Recent Opioid Data: Last Pain Scale 7 01/25/24 10:00 Review of Systems ROS Narrative A ten point review of systems is negative except as noted above. [facility] Medical History (Updated 01/25/24 @ 10:27 by Osmar Zamarripa MD) Nephritis ?N05.9 - Unspecified nephritic syndrome with unspecified morphologic changes (ICD-10) Nephrotic syndrome ?N04.9 - Nephrotic syndrome with unspecified morphologic changes (ICD-10) Syphilis ?A53.9 - Syphilis, unspecified (ICD-10) History of blood transfusion ?Z92.89 - Personal history of other medical treatment (ICD-10) Anemia ?D64.9 - Anemia, unspecified (ICD-10) Deep vein thrombosis ?I82.409 - Acute embolism and thrombosis of unspecified deep veins of unspecified lower extremity (ICD-10) Anxiety ?F41.9 - Anxiety disorder, unspecified (ICD-10) COVID-19 ?U07.1 - COVID-19 (ICD-10) Bronchitis ?J40 - Bronchitis, not specified as acute or chronic (ICD-10) Migraine ?G43.909 - Migraine, unspecified, not intractable, without status migrainosus (ICD-10) Pelvic pain ?R10.2 - Pelvic and perineal pain (ICD-10) Menorrhagia ?N92.0 - Excessive and frequent menstruation with regular cycle (ICD-10) Heartburn ?R12 - Heartburn (ICD-10) Hypertension ?I10 - Essential (primary) hypertension (ICD-10) Fibromyalgia ?M79.7 - Fibromyalgia (ICD-10) Pulmonary emboli ?I26.99 - Other pulmonary embolism without acute cor pulmonale (ICD-10) Abnormal biopsy of kidney ?R89.7 - Abnormal histological findings in specimens from other organs, systems and tissues (ICD-10) Breakthrough bleeding on Nexplanon ?N92.1 - Excessive and frequent menstruation with irregular cycle (ICD-10) ?Z97.5 - Presence of (intrauterine) contraceptive device (ICD-10) Lupus ?M32.9 - Systemic lupus erythematosus, unspecified (ICD-10) Surgical History (Updated 05/07/23 @ 10:34 by Dee Dee Guzman NP) History of tubal ligation ?Z98.51 - Tubal ligation status (ICD-10) History of section ?Z98.891 - History of uterine scar from previous surgery (ICD-10) History of section ?Z98.891 - History of uterine scar from previous surgery (ICD-10) History of section ?Z98.891 - History of uterine scar from previous surgery (ICD-10) History of cholecystectomy ?Z90.49 - Acquired absence of other specified parts of digestive tract (ICD- 10) Family History (Updated 05/07/23 @ 10:34 by Dee Dee Guzman NP) Other Cardiac hypertrophy Family history of COPD (chronic obstructive pulmonary disease) Family history of breast cancer Family history of diabetes mellitus Family history of gastric cancer Family history of hypertension Family history of stroke Kawasaki disease Murmur Social History (Updated 08/16/23 @ 06:36 by Angelina Cedeño) Within the past year, how often did you have a drink containing alcohol: never Score interpretation: A score less than 3 is consistent with normal alcohol consumption. Smoking status: Former smoker Non-prescribed substance use: former substance user Highest level of school completed/degree received: high school graduate Little interest or pleasure in doing things: not at all Feeling down, depressed, or hopeless: not at all Exam Narrative Exam Narrative: Nurses note and vital signs reviewed and patient is not hypoxic. General: The patient appears well and in no apparent distress. Patient is resting comfortably on cart. Skin: Warm, dry, no pallor noted. There is no rash noted. Head: Normocephalic, atraumatic Eye: Normal conjunctiva, no drainage Ears, Nose, Mouth, and Throat: oral mucosa is moist. Nares patent. Cardiovascular: Regular Rate and Rhythm Respiratory: Patient is in no distress, no accessory muscle use, lungs are clear to auscultation, no wheezing, rales or rhonchi Back: non-tender, no CVA tenderness bilaterally to percussion. GI: Normal bowel sounds, no tenderness to palpation, no masses appreciated. No rebound, guarding, or rigidity noted. Musculoskeletal: The patient has no evidence of calf tenderness, no pitting edema, symmetrical pulses noted bilaterally Neurological: Awake alert and oriented. Upper and lower extremity strength 5 out of 5 and symmetric. She has a very minimal right sided facial weakness. Psychiatric: Cooperative Constitutional Vital Signs, click to edit/add: Last Vital Signs Temp 98.1 F 01/25/24 09:45 Pulse 85 01/25/24 09:45 Resp 18 01/25/24 09:45 BP 147/100 H 01/25/24 09:45 Pulse Ox 94 L 01/25/24 09:45 O2 Del Method Room Air 01/25/24 09:45 Course Vital Signs Vital signs: Vital Signs Temperature 98.1 F 01/25/24 09:45 Pulse Rate 85 01/25/24 09:45 Respiratory Rate 18 01/25/24 09:45 Blood Pressure 147/100 H 01/25/24 09:45 Pulse Oximetry 94 L 01/25/24 09:45 Oxygen Delivery Method Room Air 01/25/24 09:45 Temperature 98.1 F 01/25/24 09:45 Pulse Rate 85 01/25/24 09:45 Respiratory Rate 18 01/25/24 09:45 Blood Pressure 147/100 H 01/25/24 09:45 Pulse Oximetry 94 L 01/25/24 09:45 Oxygen Delivery Method Room Air 01/25/24 09:45 Medical Decision Making MDM Narrative Medical decision making narrative: CT is negative. 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 She was already given this diagnosis and instructed about her prednisone. Treatment diagnosis and follow-up were discussed with the patient. Differential Diagnosis Differential Diagnosis: Lopez's palsy, stroke Lab Data Lab results reviewed: Yes I reviewed the patient's lab results Labs: Lab Results 01/25/24 Range/Units 09:45 POC Glucose 111 H (74-106) mg/dL Imaging Data CT scan - head: Radiologist's impression: ITS Impressions Head CT 01/25/24 10:00 IMPRESSION: 1. No acute intracranial abnormality. MRI is more sensitive for the evaluation of acute ischemia. Electronically authenticated by: BENEDICTO CHRIS Date: 01/25/2024 10:22 Discharge Plan Discharge Chief Complaint: Neck Pain/Injury Clinical Impression: Lopez's palsy Patient Disposition: Home, Self-Care Time of Disposition Decision: 10:26 Condition: Good Mode of Transportation: Private Vehicle Prescriptions / Home Meds: No Action ferrous sulfate [FeroSul] 325 mg (65 mg iron) tablet 325 mg PO DAILY B-12 Compliance 1,000 mcg tablet acetaminophen 500 mg tablet 500 mg PO Q6H PRN (Reason: pain) allopurinol 100 mg tablet 100 mg PO DAILY bumetanide 2 mg tablet 2 mg PO Q12H magnesium oxide 400 mg (241.3 mg magnesium) tablet 400 mg PO .12HR mycophenolate mofetil 250 mg capsule 1,500 mg PO Q12H prednisone 20 mg tablet 20 mg PO DAILY Xarelto 20 mg tablet 20 mg PO DAILY Rx Instructions: must administer with evening meal medroxyprogesterone 10 mg tablet 10 mg PO DAILY potassium chloride 20 mEq tablet,ER particles/crystals 20 meq PO BID Descovy 200-25 mg tablet 1 tab PO QPM ergocalciferol (vitamin D2) [Vitamin D2] 1,250 mcg (50,000 unit) capsule 50,000 unit PO QWEEK albuterol sulfate 90 mcg/actuation HFA aerosol inhaler 2 inh INHALATION Q4H PRN (Reason: shortness of breath or wheezing) amitriptyline 25 mg tablet 25 mg PO DAILY aspirin [Adult Aspirin Regimen] 81 mg tablet,delayed release (DR/EC) 81 mg PO DAILY cetirizine 10 mg tablet 10 mg PO DAILY dicyclomine 10 mg capsule 10 mg PO DAILY carvedilol [Coreg] 6.25 mg tablet 6.25 mg PO BID Rx Instructions: must administer with a meal/food Ubrelvy 50 mg tablet 50 mg PO DAILY PRN (Reason: migraine headache) Nexplanon 68 mg implant subdermal famotidine [Pepcid] 20 mg tablet 20 mg PO DAILY methocarbamol 750 mg tablet 750 mg PO Q8H PRN (Reason: muscle pain) ibuprofen 800 mg tablet 800 mg PO Q8H PRN (Reason: pain) 14 Days Qty: 40 0RF hydrocodone-acetaminophen 5-325 mg tablet 1 tab PO Q4H PRN (Reason: pain) 4 Days Qty: 16 0RF Print Language: Palauan Instructions: Lopez Palsy (ED) Referrals: Physician,Non-Staff, MD [Primary Care Provider] - 1 week
[2024-01-25 10:50] VITALS: BP 148/97; O2SAT 99
== END 2024-01-25 10:51 | disposition home or self-care (01) ==
PROVIDERS: Emergency Provider Emergency Medicine
DX: G51.0 Bell's palsy (principal); Z87.891 Personal history of nicotine dependence
CPT/HCPCS: 36415; 70450; 99284

== ENCOUNTER 2024-05-28 21:25 | Outpatient (REF) | payer OTHER, SELFPAY ==
--- OUTSIDE RECORDS SUMMARY | 2024-05-28 21:31 | XMS_ITS | CCD ---
Author Organization [facility] Care Team Providers Care Negative Notcher Name Role Phone BILLY ZELAYA Primary Care [...] Primary Care Unavailable Mayco Albright Attending Provider Mayco Albright Attending Unavailable Mayco Albright Admitting Unavailable NONE, XXXX Primary Care Physician Unavailab NO Miramontes Attending Unavailable LINDSEY JENNINGS Primary Care Physician [phone] Dick PSYCHIATRIC NURSING ASSISTANT-PROPERTY INSURANCE INSPECTORLindsey Primary Care Provider [phone] PHOEBE LOPEZ Attending Unavailable SHERMAN CALLE Referring Unavailable BILLY ZELAYA Primary Care Unavailable PHOEBE LOPEZ Attending Unavailable ZELAYA, BILLY A Referring Unavailable DICK, LINDSEY Primary Care Unavailable PHOEBE LOPEZ Attending Unavailable DICK, LINDSEY Referring Unavailable DICK, LINDSEY Primary Care Unavailable Dick STOCK MANAGER, Lindsey Unavailable CALLE, SHERMAN N Attending Unavailable ZELAYA, [...] Care Unavailable CALLE, SHERMAN N Attending Unavailable WILFRID, BILLY A Referring Unavailable DICK, BIG FLATS Primary Care Unavailable ELMER TORO Attending Unavailable DICK, BIG FLATS Referring Unavailable DICK, BIG FLATS Primary Care Unavailable DICK, BIG FLATS Referring Unavailable DICK, BIG FLATS Primary Care Unavailable CALLE, SHERMAN N Attending Unavailable DICK, LINDSEY Referring Unavailable DICK, BIG FLATS Primary Care Unavailable CALLE, SHERMAN N Referring Unavailable DICK, BIG FLATS Primary Care Unavailable JENNY CORNELL Attending Unavailable DICK, BIG FLATS Referring Unavailable DICK, BIG FLATS Primary Care Unavailable BEATA, SABEENA BESS Admitting Unavailable BEATA, SABEENA BESS Attending Unavailable DONALDO DALTON Referring Unavailable DICK, BIG FLATS Primary Care Unavailable ELDER REHMAN Consulting Unavailable CHRIS JACKSON M Referring Unavailable DICK, BIG FLATS Primary Care Unavailable CALLE, SHERMAN N Attending Unavailable DICK, LINDSEY Referring Unavailable DICK, BIG FLATS Primary Care Unavailable WILFRID, BILLY A Primary Care Unavailable ORIN GAYTAN Attending Unavailable FREDERICK BAUGH Consulting Unavailable CORTEZ, ETELVINA Admitting Unavailable QAFISHEH, QUTAIBA Referring Unavailable ZELAYA, BILLY A Primary Care Unavailable DOT VALLEJO Referring Unavailable ZELAYA, BILLY A Primary Care Unavailable AIYEWUNMI, ORIN Attending Unavailable AIYEWUNMI, ORIN Attending Unavailable AIYEWUNMI, ORIN Attending Unavailable AIYEWUNMI, ORIN Attending Unavailable FROY HARMON Attending Unavailable WILFRID, BILLY A Referring Unavailable ZELAYA, BILLY A Primary Care Unavailable CHILO BAIN Referring Unavailable ZELAYA, BILLY A Primary Care Unavailable TUYET WARREN Attending Unavailable ZELAYA, BILLY A Primary Care Unavailable ZELAYA, BILLY A Primary Care Unavailable PASQUALE ALEXANDER Referring Unavailable ZELAYA, BILLY A Primary Care Unavailable CALLE, SHERMAN Prashanth Referring Unavailable ZELAYA, BILLY A Primary Care Unavailable MAYLIN PORTILLO Attending Unavailable MAYLIN PORTILLO Referring Unavailable ZELAYA, BILLY A Primary Care Unavailable ZELAYA, BILLY A Referring Unavailable ZELAYA, BILLY A Primary Care Unavailable ZELAYA, BILLY A Primary Care Unavailable MILLA SALOMON Attending Unavailable ZELAYA, BILLY A Referring Unavailable ZELAYA, BILLY A Primary Care Unavailable AIME, MILLA Attending Unavailable GOLIVER, MILLA Referring Unavailable ZELAYA, BILLY A Primary Care Unavailable DICK, LINDSEY Primary Care Unavailable PASQUALE ALEXANDER Attending Unavailable ZELAYA, BILLY A Referring Unavailable DICK, LINDSEY Primary Care Unavailable SHERMAN CALLE Referring Unavailable DICK, LINDSEY Primary Care Unavailable ZELAYA, BILLY A Primary Care Unavailable IZA SOSA Attending Unavailable DONALDO HAHN Attending Unavailable DONALDO HAHN Referring Unavailable ZELAYA, BILLY A Primary Care Unavailable ZELAYA, BILLY A Primary Care Unavailable SARAH MAC Attending Unavailable SARAH MAC Attending Unavailable SARAH MAC Referring Unavailable ZELYAA, BILLY A Primary Care Unavailable DICK, LINDSEY Primary Care Unavailable NAHUM PICKARD Attending Unavailable DICK, LINDSEY Primary Care Unavailable DICK, LINDSEY Primary Care Unavailable SARAH MAC Attending Unavailable ELMER TORO Referring Unavailable DICK, LINDSEY Primary Care Unavailable DICK, LINDSEY Primary Care Unavailable SADE ROSAS Referring Unavailable DICK, LINDSEY Primary Care Unavailable DICK, LINDSEY Primary Care Unavailable DONNIE HERRERA Attending Unavailable DICK, LINDSEY Primary Care Unavailable DICK, LINDSEY Primary Care Unavailable IZA SOSA Attending Unavailable DICK, LINDSEY Primary Care Unavailable JANES MACIAS Attending Unavailable DICK, LINDSEY Primary Care Unavailable JANES MACIAS Attending Unavailable RENETTA, MUHAMID M Admitting Unavailable INPATIENT, TELENEUROLOGY Consulting Unavail able DICK, LINDSEY Primary Care Unavailable SIMONE FRANKLIN Attending Unavailable [...] Unavailable ZELAYA, BILLY A Primary Care Unavailable BAKER, MAXIMINO Attending Unavailable SAMUEL, MAXIMINO Referring Unavailable WILFRID, BILLY A Primary Care Unavailable ZELAYA, BILLY Jenkins Primary Care Unavailable SHANTEL BOWDEN Attending Unavailchris BOWDEN, SHANTEL Brennan Attending Unavailabl chastity BOWDEN, SHANTEL Brennan Referring Unavailabl e WILFRID, BILLY Jenkins Primary Care Unavailable ORIN PACHECO Referring Unavailable DICK, BIG FLATS Primary Care Unavailable PASQUALE ALEXANDER Attending Unavailable DICK, LINDSEY Referring Unavailable DICK, BIG FLATS Primary Care Unavailable CALLESHERMAN Referring Unavailable DICK, BIG FLATS Primary Care Unavailable JOSE RAMON, MAYCO R Referring Unavailable DICK, BIG FLATS Primary Care Unavailable DICK, BIG FLATS Primary Care Unavailable MIKHAIL MICHAELS Attending Unavailable DICK, BIG FLATS Primary Care Unavailable JANES MACIAS Attending Unavailable JOSE RAMON, MAYCO Attending Unavailable CHERYL, MICAELA Attending Unavailable JOSE RAMON, MAYCO Attending Unavailable JOSE RAMON, MAYCO Attending Unavailable JOSE RAMON, MAYCO Attending Unavailable RUSHER, PASQUALE S Attending Unavailable RUSHER, PASQUALE S Attending Unavailable RUSHER, PASQUALE S Attending Unavailable RUSHER, PASQUALE S Referring Unavailable CHERYL, MICAELA Attending Unavailable CHERYL, MICAELA Attending Unavailable JOSE RAMON, MAYCO Attending Unavailable DICK, BIG FLATS Primary Care Unavailable RUFINO GALLARDO Attending Unavailab le DICK, BIG FLATS Primary Care Unavailable RUFINO GALLARDO Attending Unavailab le SarminiSaw Attending Unavaila ble Allergies Allergy Classification Reported Allergen(s) Allergy Type Date of Onset Reaction(s) Facility (20 sources) Cephalexin; Translations: [cephalexin] Drug Allergy 05-03-19 23 Pain in lower limb (finding) [facility] (20 sources) Ibuprofen; Translations: [ibuprofen] Drug Allergy 12-16-19 23 medication interference [facility] (20 sources) Sulfamethoxazole / Trimethoprim; Translations: [sulfamethoxazole-t rimethoprim] Drug Allergy 05-14-19 24 Eruption of skin (disorder), Rash [facility] Comment on above: ??? pt says she gets 'heat rash' often. however developed 'worse' rash than usual shortly after taking bactrim. has taken previously with NO reaction. (7 sources) Sulfamethoxazole / Trimethoprim; Translations: [SULFAMETHOXAZOLE-T RIMETHOPRIM] Drug Allergy 05-14-19 [facility] (20 sources) Garlic preparation; Translations: [GARLIC] Drug Allergy 06-19-19 [facility] (14 sources) allyl sulfide Drug Allergy 06-19-19 [facility] (1 source) Sulfamethoxazole / Trimethoprim; Translations: [Bactrim] Drug Allergy [facility] (1 source) No Known Medication Allergies; Translations: [No Known Medication Allergies] Propensity to adverse reactions (disorder) [facility] Medications Current Medications Medication Drug Class(es) Dates Sig (Normalized) Sig (Original) acetaminophen 325 mg / HYDROcodone bitartrate 5 mg oral tablet (1 source) Opioid Agonist Start: 07-11-2022 End: 07-13-2022 [place] 325 mg-5 mg oral tablet 1 tab(s), Oral, q6hr as needed for pain, 10 tab(s), Refill(s) 0, [id number], 175.2, cm, 07/05/22 12:31:00 EST, Height/Length Dosing, 136, kg, 07/05/22 12:31:00 EST, Weight Dosing Start Date: 07/11/22 Stop Date: 07/13/22 Status: Ordered acyclovir 400 mg oral tablet (6 sources) Herpesvirus Nucleoside Analog DNA Polymerase Inhibitor, Herpes Simplex Virus Nucleoside Analog DNA Polymerase Inhibitor, Herpes Zoster Virus Nucleoside Analog DNA Polymerase Inhibitor Start: 01-29-2024 take 1 tablet by mouth once daily acyclovir 400 mg Tab 400 mg = 1 tab(s), Oral, 5x/Day Start Date: 01/29/24 Status: Ordered Start: 01-24-2024 End: 02-05-2024 take 400 mg by mouth five times daily 400 mg, oral, 5 times daily, First dose on Aleida 01/31/24 at 1800, For 2 doses, Look-alike/sound-alike medication - verify indication for use., 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 18 g 11 08/02/2023 Active Start: 05-05-2022 take 2 puff(s) by mo [facility] every four hours albuterol HFA 90 mcg/act inhaler inhale 2 puffs by mouth and INTO THE LUNGS every 4 hours if needed 05/05/2022 Active Albuterol (Eqv-ProAir HFA) 90 mcg/inh inhalation aerosol (3 sources) Start: 08-23-2023 Albuterol (Eqv-ProAir HFA) 90 mcg/inh inhalation aerosol Refill(s) 0 Start Date: 08/23/23 Status: Ordered allopurinol 100 mg oral tablet (20 sources) Xanthine Oxidase Inhibitor Start: 01-04-2023 End: 02-05-2024 take 1 tablet by mouth in the morning allopurinol (Zyloprim) 100 MG tablet Take 100 mg by mouth in the morning. 01/04/2023 Active amitriptyline hydrochloride 50 mg oral tablet (20 sources) Tricyclic Antidepressant Start: 01-17-2024 End: 04-09-2024 take 1 tablet by mouth once daily at bedtime amitriptyline 50 mg Tab 50 mg = 1 tab(s), Oral, Once a day (at bedtime) Start Date: 01/29/24 Status: Ordered Start: 08-23-2023 amitriptyline 25 mg Tab Refills(s) 0 Start Date: 08/23/23 Status: Ordered Start: 07-05-2023 take 2 tablets by [facility] at bedtime amitriptyline (Elavil) 25 MG tablet Take 50 mg by mouth at bedtime 07/05/2023 Active Start: 07-05-2023 amitriptyline (ELAVIL) 25 mg tablet [...] mouth nightly. 30 tablet 2 04/02/2023 Active amoxicillin 875 mg / clavulanate 125 mg oral tablet (6 sources) Penicillin-class Antibacterial Start: 05-12-2024 End: 05-19-2024 take 1 tablet by mouth in the morning amoxicillin-clavulanate (Augmentin) 875-125 MG tablet Indications: E. coli infection Take 1 tablet (875 mg) by mouth in the morning and 1 tablet (875 mg) before bedtime. Do all this for 7 days. 14 tablet 05/12/2024 05/19/2024 Active Start: 04-10-2024 End: 04-20-2024 take 1 tablet by mouth in the morning amoxicillin-clavulanate (Augmentin) 875-125 MG tablet Indications: E. coli infection , Group B streptococcal infection Take 1 tablet (875 mg) by mouth in the morning and 1 tablet (875 mg) before bedtime. Do all this for 10 days. 20 tablet 04/10/2024 04/20/2024 Active aspirin 81 mg oral capsule (20 sources) Platelet Aggregation Inhibitor, Nonsteroidal Anti-inflammatory Drug Start: 01-29-2024 aspirin 81 mg ora l capsule 81 mg = 1 cap(s), Oral Start Date: 01/29/24 Status: Ordered take 1 tablet by mouth in the mo rning aspirin 81 MG EC tablet Take 81 mg by mouth in the morning. Active atovaquone 150 mg/ml oral suspension (3 sources) Antimalarial, Antiprotozoal take 5 mL by mouth in the morning atovaquone (MEPRON) 750 mg/5 mL suspension Take 5 mL (750 mg total) by mouth in the morning. 0 Active blood pressure monitor kit (13 sources) Start: blood pressure monitor kit TAKE B/P 2-3 TIMES PER WEEK 1 each 01/11/2024 Start: 01-11-2024 blood pressure monitor kit TAKE B/P 2-3 TIMES PER WEEK 1 each 01/11/2024 Suspended Start: 01-11-2024 blood pressure monitor kit TAKE B/P 2-3 TIMES PER WEEK 1 each 01/11/2024 Active bumetanide 2 mg oral tablet (20 sources) Loop Diuretic Start: 12-28-2022 End: 03-10-2024 bumetanide 2 mg Tab Refills(s) 0 Start Date: 08/23/23 Status: Ordered carbamide peroxide 65 mg/ml otic solution (10 sources) Start: 01-09-2024 MURINE EAR 6.5 % otic solution Administer 5 drops into both ears in the morning and 5 drops before bedtime. 01/09/2024 Active carvedilol 6.25 mg oral tablet (20 sources) alpha-Adrenergic Edgar, beta-Adrenergic Edgar Start: 07-12-2023 End: 02-05-2024 take 1 tablet by mouth in the morning carvedilol (Coreg) 6.25 MG tablet Take 6.25 mg by mouth in the morning and 6.25 mg in the evening. 07/12/2023 Active cetirizine hydrochloride 10 mg oral tablet (15 sources) Histamine-1 Receptor Antagonist Start: 06-05-2023 cetirizine (ZyrTEC) 10 MG tablet 06/05/2023 Active Cholecalciferol (20 sources) Vitamin D Start: 01-29-2024 cholecalciferol Start Date: 01/29/24 Status: Ordered take 1 capsule by mouth every we ek cholecalciferol (Vitamin D-3) 1.25 MG (27398 UT) capsule Take 50,000 Units by mouth 1 (one) time per week. Active cyclobenzaprine hydrochloride 10 mg oral tablet (19 sources) Muscle Relaxant Start: 01-24-2024 cyclobenzaprin e 10 mg Tab 10 mg = 1 tab(s), Oral, PRN for spasm Start Date: 01/29/24 Status: Ordered Start: 06-16-2023 take 1 tablet by chavez th twice daily as needed for muscle spasms cyclobenzaprine (FLEXERIL) 10 mg tablet Take 1 tablet (10 mg total) by mouth 2 (two) times a day as needed for muscle spasms. 10 tablet 0 06/16/2023 Active diphenhydrAMINE hydrochloride 25 mg oral capsule (7 sources) Histamine-1 Receptor Antagonist Start: 02-11-2024 take 1 capsule by mouth every six hours as needed diphenhydrAMINE (BENADRYL) 25 mg capsule Take 1 capsule (25 mg total) by mouth every 6 (six) hours as needed for itching. 30 capsule 02/11/2024 Active 0.4 ml enoxaparin sodium 100 mg/ml prefilled syringe (4 sources) Low Molecular Weight Heparin Start: 07-05-2023 End: 07-15-2023 inject 0.4 mL by subcutaneous injection in the morning enoxaparin (LOVENOX) 40 mg/0.4 mL syringe Inject 0.4 mL (40 mg total) under the skin in the morning for 10 days. 4 mL 0 07/05/2023 07/15/2023 Active ergocalciferol 1.25 mg oral capsule (20 sources) Provitamin D2 Compound Start: 08-23-2023 ergocalciferol 50,000 intl units Cap Refills(s) 0 Start Date: 08/23/23 Status: Ordered Start: 06-11-2023 ergocalciferol (Vitamin D2) 1.25 MG (54037 UT) capsule 06/11/2023 Active Start: 06-11-2023 take 1 capsule by mo uth every week ergocalciferol (DRISDOL) 1,250 mcg (50,000 unit) capsule Take 1 capsule (50,000 Units total) by mouth once a week. 06/11/2023 Active etonogestrel 68 mg drug implant (20 sources) Progestin Start: 12-12-2022 etonogestrel-e luting 68 mg contraceptive implant 1 each Start: 02-16-2022 Nexplanon 68 m g, SubCutaneous, in pts right arm, Refills(s) 0, control/menstrual regulation Start Date: 02/16/22 Status: Ordered Start: 02-16-2022 Nexplanon Refi lls(s) 0, control/menstrual regulation Start Date: 02/16/22 Status: Ordered Start: 02-16-2022 Nexplanon Refi lls(s) 0 Start Date: 02/16/22 Status: Ordered etonogestrel-elu ting (Nexplanon) 68 mg contraceptive implant Nexplanon Active famotidine 20 mg oral tablet (20 sources) Histamine-2 Receptor Antagonist Start: 07-05-2022 End: 02-05-2024 take 1 tablet by mouth in the morning famotidine (Pepcid) 20 MG tablet Take 20 mg by mouth in the morning. 09/12/2023 Active FeroSul 325 mg oral tablet (12 sources) Start: 02-16-2022 take 1 tablet by [...] mg oral tablet (20 sources) Start: 06-15-2020 FeroSul 325 (6 5 Fe) MG tablet 12/11/2022 Active fluocinonide 0.5 mg/ml topical solution (18 sources) Corticosteroid Start: 08-23-2023 fluocinonide t opical 0.05% solution Refill(s) 0 Start Date: 08/23/23 Status: Ordered Start: 06-04-2023 fluocinonide ( Lidex) 0.05 % external solution 06/04/2023 Active Start: 03-09-2023 fluocinonide ( LIDEX) 0.05 % external solution Apply 1 Application topically in the morning. 0 03/09/2023 Active ketoconazole 20 mg/ml medicated shampoo (20 sources) Azole Antifungal Start: 08-23-2023 ketoconazole Top 2% Shampoo Refill(s) 0 Start Date: 08/23/23 Status: Ordered Start: 03-09-2023 ketoconazole ( NIZOral) 2 % shampoo Apply 1 Application topically 2 (two) times a week 03/09/2023 Active levonorgestrel 0.363183 mg/hr intrauterine system (14 sources) Progestin, Progestin-containing Intrauterine Device Start: 09-26-2023 End: 09-24-2028 Levonorgestrel intrauterine device 52 mg lidocaine 0.05 mg/mg medicated patch (16 sources) Antiarrhythmic, Amide Local Anesthetic Start: 02-06-2024 apply 1 dose transdermal route every twelve hours in the morning lidocaine (LIDODERM) 5 % Place 1 patch on the skin in the morning. Remove & Discard patch within 12 hours or as directed by . 30 patch 02/06/2024 Active Start: 02-05-2024 End: 02-05-2024 infiltration, As needed, Sta rting on Sun02/05/24 at 0940, Intra-op Start: 02-03-2024 End: 02-05-2024 apply 1 dose transdermal route once daily, then apply 1 dose transdermal route every twelve hours 1 patch, transdermal, Administer over 12 Hours, Daily, First dose on Sun02/03/24 at 1830, Apply to intact skin on neck. Patch(es) may remain in place for up to 12 hours in any 24-hour period. Remove previous patch, if present, before applying new. Start: 02-01-2024 End: 02-01-2024 50 mg (5 mL), infiltration, Once, On Sun02/01/24 at 1545, For 1 dose Start: 02-27-2023 apply 1 dose transde rmal route once daily, then apply 1 dose [...] ills(s) 0 Start Date: 02/16/22 Status: Ordered Lupkynis 7.9 MG capsule (14 sources) Start: 07-31-2023 take 1 capsule by mouth in the morning Lupkynis 7.9 MG capsule Take 7.9 mg by mouth in the morning and 7.9 mg before bedtime. 07/31/2023 Active magnesium oxide 400 mg oral tablet (20 sources) Start: 11-07-2022 End: 02-05-2024 MAGnesium-Oxide 400 (240 Mg) MG tablet 11/07/2022 Active medroxyPROGESTERone acetate 10 mg oral tablet (20 sources) Progestin Start: 03-20-2023 End: 01-31-2024 take 1 tablet by mouth once daily medroxyPROGESTERone (Provera) 10 MG tablet Indications: Menorrhagia with regular cycle Take 1 tablet (10 mg) by mouth Daily 30 tablet 3 07/18/2023 Active methocarbamol 750 mg oral tablet (11 sources) Muscle Relaxant Start: 01-29-2024 End: 01-31-2024 methocarbamol 750 mg Tab 750 mg = 1 tab(s), Oral Start Date: 01/29/24 Status: Ordered Multiple Vitamin (Multi-Vitamin) tablet (14 sources) Start: 03-29-2023 take 1 tablet by mouth in the morning Multiple Vitamin (Multi-Vitamin) tablet Take 1 tablet by mouth in the morning. 03/29/2023 Active mycophenolate mofetil 500 mg oral tablet (20 sources) Start: 01-31-2024 End: 02-05-2024 take 1500 mg by mouth twice daily after mealtime 1,500 mg, oral, 2 times daily, First dose on Sun01/31/24 at 2100, Do not crush or chew. Pediatric patients only-adminster on empty stomach at least 1 hour before or 2 hours after meals. Start: 01-17-2024 End: 04-09-2024 take 3 tablets intravenously twice daily mycophenolate (CELLCEPT) 500 mg tablet Indications: Stage IV lupus nephritis (WHO) ([facility]) , Systemic lupus erythematosus, unspecified SLE type, unspecified organ involvement status ([facility]) , 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 3 tab twice daily 180 tablet 3 04/09/2024 Active Start: 08-23-2023 mycophenolate mofetil 500 mg oral tablet Refills(s) 0 Start Date: 08/23/23 Status: Ordered Start: 05-03-2023 End: 07-31-2023 take 3 tablets intravenously twice daily mycophenolate (CELLCEPT) 500 mg tablet Indications: Stage IV lupus nephritis (WHO) ([facility]) , Systemic lupus erythematosus, unspecified SLE type, unspecified organ involvement status ([facility] , 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 3 tab twice daily 180 tablet 3 07/31/2023 Active Start: 04-02-2023 take 3 tablets intra venously twice daily mycophenolate (CELLCEPT) 500 mg tablet Indications: Stage IV lupus nephritis (WHO) ([facility] , Systemic lupus erythematosus, unspecified SLE type, unspecified organ involvement status ([facility]) , 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 3 tab twice daily 180 tablet 5 04/02/2023 Active Start: 02-08-2023 take 2 tablets by mo ut in the morning mycophenolate (Cellcept) 500 MG tablet Take 1,000 mg by mouth in the morning and 1,000 mg before bedtime. 02/08/2023 Active nitrofurantoin, macrocrystals 50 mg oral capsule (13 sources) Nitrofuran Antibacterial Start: 01-29-2024 nitrofurantoin (MACRODANTIN) 50 mg capsule Take 1 capsule (50 mg total) by mouth as needed (Take 1 capsule after sexual activity to prevent UTI.). 01/29/2024 Active Start: 09-05-2022 nitrofurantoin macrocrystals 50 mg Cap See Instructions, 1 cap(s) Oral PRN after intercourse to prevent UTI, # 15 cap(s), Refills(s) 6, [facility]: [id number], 172, cm, 09/05/22 9:24:00 EDT, Height/Length Dosing, 132, kg, 09/05/22 9:24:00 EDT, Weight Dosing Start Date: 09/05/22 Status: Ordered ondansetron 4 mg disintegrating oral tablet (20 sources) Serotonin-3 Receptor Antagonist Start: 06-03-2023 ondansetron ODT (Zofran-ODT) 4 MG disintegrating tablet dissolve 1 tablet ON TONGUE every 8 hours if needed for nausea 06/04/2023 Active Start: 01-11-2023 take 1 tablet by chavez every eight hours as needed for nausea ondansetron ODT (ZOFRAN ODT) 4 mg disintegrating tablet Dissolve 1 tablet (4 mg total) on tongue every 8 (eight) hours as needed for nausea for up to 10 doses. 10 tablet 0 01/11/2023 Active predniSONE 5 mg oral tablet (20 sources) Start: 04-09-2024 take 1 tablet intravenously once daily predniSONE (DELTASONE) 5 mg tablet Indications: Stage IV lupus nephritis (WHO) ([facility] , Systemic lupus erythematosus, unspecified SLE type, unspecified organ involvement status ([facility]) 1. TAB DAILY 30 tablet 3 04/09/2024 Active Start: 02-01-2024 End: 02-05-2024 take 5 mg by mouth once daily at mealtime 5 mg, oral, Daily with breakfast, First dose on Sun02/01/24 at 0800, Look-alike/sound-alike medication - verify indication for use. Food-Drug Interaction Education Required May alter blood glucose or insulin requirements Take/give with food Look-alike/sound-alike medication - verify indication for use. Start: 01-24-2024 End: 01-31-2024 take 6 tablets by mouth in the morning predniSONE (DELTASONE) 10 mg tablet Take 6 tablets (60 mg total) by mouth in the morning for 5 days. 30 tablet 01/24/2024 01/31/2024 Discontinued (Stop Taking at Discharge) Start: 01-17-2024 End: 04-09-2024 predniSONE (DELTASONE) 5 mg tablet Indications: Stage IV lupus nephritis (WHO) ([facility] , Systemic lupus erythematosus, unspecified SLE type, unspecified organ involvement status ([facility]) 1.5 TAB FOR 2 WEEKS,THEN 1 TAB DAILY 45 tablet 3 03/04/2024 04/09/2024 Discontinued (Reorder) Start: 08-23-2023 predniSONE 20 mg Tab Refills(s) 0 Start Date: 08/23/23 Status: Ordered Start: 05-16-2023 End: 07-31-2023 take 1 tablet by mouth in the morning, then take 1 tablet by mouth once daily predniSONE (DELTASONE) 20 mg tablet Indications: Stage IV lupus nephritis (WHO) ([facility]) , Systemic lupus erythematosus, unspecified SLE type, unspecified organ involvement status ([facility]) Take 1 tablet (20 mg total) by mouth in the morning. One tab daily. 30 tablet 1 07/31/2023 Active Start: 04-02-2023 take 1.5 tablets intravenously once daily, then take 1 tablet intravenously once daily predniSONE (DELTASONE) 20 mg tablet Indications: Stage IV lupus nephritis (WHO) ([facility]) , Systemic lupus erythematosus, unspecified SLE type, unspecified organ involvement status ([facility]) , 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 1.5 tab daily for 2 weeks,then 1 tab daily 45 tablet 1 04/02/2023 Active Start: 02-19-2023 predniSONE (De ltasone) 20 MG tablet Take 15 mg by mouth Daily 02/19/2023 Active rimegepant 75 mg disintegrating oral tablet (5 sources) Start: 03-14-2024 rimegepant (NURTEC ODT) 75 mg tablet,disintegrating Indications: Migraine without aura and without status migrainosus, not intractable Dissolve 1 tablet on tongue as needed (migraine). Maximum of 1 dose per 24 hours 8 tablet 5 03/14/2024 Active rivaroxaban 20 mg oral tablet (20 sources) Factor Xa Inhibitor Start: 02-16-2022 End: 06-28-2023 take 1 tablet by mouth in the morning Xarelto 20 MG tablet Take 1 tablet by mouth in the morning. 06/22/2022 Active Start: 02-16-2022 Xarelto Refill s(s) 0, Blood Thinner Start Date: 02/16/22 Status: Ordered Start: 02-16-2022 Xarelto Refill s(s) 0 Start Date: 02/16/22 Status: Ordered rizatriptan 10 mg oral tablet (19 sources) Serotonin-1b and Serotonin-1d Receptor Agonist Start: 08-17-2023 take 1 tablet by mouth once rizatriptan (Maxalt) 10 MG tablet Take 10 mg by mouth 1 (one) time if needed for migraine 08/17/2023 Active Start: 08-17-2023 End: 01-31-2024 rizatriptan 10 mg Tab Refill s(s) 0 Start Date: 08/23/23 Status: Ordered trimethoprim 100 mg oral tablet (1 source) Dihydrofolate Reductase Inhibitor Antibacterial Start: 05-19-2024 trimethoprim 100 mg Tab See Instructions, 1 tab po with sexual activity for UTI prevention., # 15 tab(s), Refills(s) 3, Pharmacy: [facility] [id number], 174, cm, 05/19/24 10:34:00 EST, Height/Length Dosing, 124, kg, 05/19/24 10:34:00 EST, Weight Dosing Start Date: 05/19/24 Status: Ordered ubrogepant 100 mg oral tablet (9 sources) Start: 07-05-2023 ubrogepant (UB RELVY) 100 mg tablet Indications: Migraine without aura and without status migrainosus, not intractable , Uncontrolled hypertension Take 1 tablet just after onset of migraine. May repeat the dose after 2 hours if CURRY persists. Max of 2 doses per 24 hours. 16 tablet 5 07/05/2023 Active voclosporin 7.9 mg capsule (18 sources) Start: 04-29-2024 voclosporin 7. 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 60 capsule 3 04/09/2024 04/29/2024 Discontinued (Reorder) Start: 04-09-2024 voclosporin 7. 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 60 capsule 3 11/27/2023 04/09/2024 Discontinued (Reorder) Start: 11-27-2023 voclosporin 7. 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 60 capsule 3 11/27/2023 Start: 11-27-2023 voclosporin 7. 9 mg capsule Indications: Stage IV lupus nephritis (WHO) ([facility]) Take 23.7 mg by mouth in the morning and 23.7 mg before bedtime. 60 capsule 3 11/27/2023 Suspended Start: 11-27-2023 voclosporin 7. 9 mg capsule Indications: Stage IV lupus nephritis (WHO) ([facility]) Take 23.7 mg by mouth in the morning and 23.7 mg before bedtime. 60 capsule 3 11/27/2023 Active Start: 07-31-2023 voclosporin 7. 9 mg capsule Indications: Stage IV lupus nephritis (WHO) ([facility]) Take 23.7 mg by mouth in the morning and 23.7 mg before bedtime. 60 capsule 3 07/31/2023 Active Start: 07-31-2023 End: 07-31-2023 voclosporin 7.9 mg capsule I ndications: Stage IV lupus nephritis (WHO) ([facility]) Take 23.7 mg by mouth in the morning and 23.7 mg before bedtime. 60 capsule 3 07/31/2023 07/31/2023 Discontinued (Reorder) voclosporin 7.9 MG Oral Caps ule [Lupkynis] (3 sources) Start: 08-23-2023 Lupkynis 7.9 m g oral capsule Refills(s) 0 Start Date: 08/23/23 Status: Ordered Completed/Discontinued Medications Medication Drug Class(es) Dates Sig (Normalized) Sig (Original) 100 ml acetaminophen 10 mg/ml injection (20 sources) Start: 02-05-2024 End: 02-05-2024 1,000 mg, intravenous, at 400 mL/hr, Administer over 15 Minutes, Once, On Sun02/05/24 at 1145, For 1 dose Start: 02-03-2024 End: 02-03-2024 take 650 mg by mouth once 650 mg, oral, Once, On Sun at 0030, For 1 dose Start: 01-29-2024 acetaminophen 325 mg Start Date: 01/29/24 Status: Ordered Start: 06-03-2023 take 2 tablets by [facility] every six hours as needed for pain acetaminophen (TylenoL) 325 mg tablet Take 2 tablets (650 mg total) by mouth every 6 (six) hours as needed for pain. 30 tablet 06/03/2023 Active Start: 08-15-2022 take 1 tablet by chavez th every six hours as needed acetaminophen (Tylenol) 500 MG tablet Take 500 mg by mouth every 6 (six) hours if needed. 08/15/2022 Active clindamycin 150 mg oral capsule (8 sources) Lincosamide Antibacterial Start: 02-03-2024 End: 02-04-2024 take 300 mg by mouth every eight hours 300 mg, oral, Every 8 hours scheduled, First dose (after last modification) on 02/04/24 at 1400, For 2 doses, Give with a full glass of water., Indication: Other, Specify: OTITIS MEDIA Start: 01-29-2024 clindamycin 15 0 mg Start Date: 01/29/24 Status: Ordered Start: 01-24-2024 End: 02-05-2024 take 2 capsules by mouth three times daily clindamycin (CLEOCIN) 150 mg capsule Take 2 capsules (300 mg total) by mouth 3 (three) times a day for 10 days. 60 capsule 01/24/2024 02/05/2024 Discontinued (Stop Taking at Discharge) dicyclomine hydrochloride 10 mg oral capsule (20 sources) Anticholinergic Start: 08-23-2023 End: 02-05-2024 take 10 mg by mouth four times daily 10 mg, oral, 4 times daily, First dose on Sun01/31/24 at 1730 Start: 02-16-2022 End: 02-11-2023 take 1 capsule by mouth four times daily Bentyl 10 mg Cap 10 mg = 1 cap(s), Oral, QID, X 30 day(s), # 120 cap(s), Refills(s) 11, [id number], 172, cm, 02/16/22 12:26:00 EDT, Height/Length Dosing, 133, kg, 02/16/22 12:26:00 EDT, Weight Dosing Start Date: 02/16/22 Stop Date: 02/11/23 Status: Ordered docusate sodium 50 mg / sennosides, halfway 8.6 mg oral tablet (1 source) Start: 01-31-2024 End: 02-05-2024 take 1 tablet by mouth every twelve hours as needed for constipation 1 tablet, oral, Every 12 hours PRN, constipation, Starting on Aleida /3/24 at 1529 emtricitabine 200 mg / tenofovir alafenamide 25 mg oral tablet (20 sources) Human Immunodeficiency Virus Nucleoside Analog Reverse Transcriptase Inhibitor Start: 02-01-2024 End: 02-05-2024 take 1 tablet by mouth once daily 1 tablet, oral, Daily, First dose on Sun02/01/24 at 0900 Start: 08-23-2023 Descovy 200 mg -25 mg oral tablet Refill(s) 0 Start Date: 08/23/23 Status: Ordered take 1 tablet by chavez th once in the morning DESCOVY 200-25 mg per tablet Take 1 tablet by mouth in the morning. Active gadoteridoL (PROHANCE) injection 10 mmol 20 mL (1 source) Start: 02-03-2024 End: 02-03-2024 10 mmol (rounded from 12.55 mmol = 0.1 mmol/kg 125.5 kg), intravenous, Once in imaging, contrast, MRI, Starting on Wynona 02/03/24 at 1215, For 1 dose, VESICANT (RED), Indications: magnetic resonance imaging glucagon (rdna) 1 mg injection (1 source) Antihypoglycemic Agent Start: 01-31-2024 End: 02-05-2024 1 mg, intramuscular, As needed, low blood sugar, blood glucose less than 70 mg/dL and unconscious or NPO without IV access., Starting on Sun01/31/24 at 1527, If conscious and not NPO, immediately follow with meal tray or high protein (7Grams) snack if tray not available. If NPO, initiate IV 5% Dextrose/Water at 100 mL/hr and contact prescriber for additional orders. If blood glucose is not greater than 70 mg/dL after initial treatment, repeat treatment. 150 ml glucose 50 mg/ml injection (3 sources) Start: 01-31-2024 End: 02-05-2024 15 g, oral, As needed, low blood sugar, blood glucose less than 70 mg/dL, Starting on Sun01/31/24 at 1527, If patient conscious and taking PO. If blood glucose is not greater than 70 mg/dL after initial treatment, repeat treatment. Start: 01-31-2024 End: 02-05-2024 25 mL, intravenous, As neede d, low blood sugar, blood glucose less than 70 mg/dL and unconscious or NPO with IV access, Starting on Aleida 01/31/24 at 1527, Push over 1-3 minutes STAT. If conscious and not NPO, immediately follow with meal tray or high protein (7 grams) snack if tray not available. If NPO, initiate 5% dextrose in water at 100 mL/hr and contact prescriber for additional orders. If blood glucose is not greater than 70 mg/dL after initial treatment, repeat treatment. VESICANT (RED) Warning: HYPERTONIC solution. Start: 01-31-2024 End: 02-05-2024 take 70 mg intravenously every hour 100 mL/hr, intravenous, Continuous PRN, blood glucose less than 70 mg/dL, Starting on Aleida 01/31/24 at 1527, Use immediately following dextrose 50% or glucagon treatment for patients who are unconscious or NPO. Contact prescriber for additional orders. If blood glucose is not greater than 70 mg/dL after initial treatment, repeat treatment. 500 ml heparin sodium, porcine 50 unt/ml injection (3 sources) Unfractionated Heparin, Anti-coagulant Start: 02-01-2024 End: 02-05-2024 300-3,500 Units/hr (6-70 mL/hr), intravenous, Continuous, Starting on Sun02/04/24 at 1230, Maximum initial infusion: 1000 units/hr Heparin Low Intensity Infusion (Cardiology) Heparin Adjustment Table: aPTT Therapeutic Goal: 50-70 Seconds If aPTT results: -less than 40 seconds: bolus with 2000 units, increase rate by 150 units/hr (3 mL/hr), next aPTT in 6 hrs. -40 - 49 seconds: increase rate by 100 units/hr (2 mL/hr), next aPTT in 6 hours. -50 - 70 seconds: next aPTT in 6 hours then every AM. -71 - 90 seconds: decrease rate by 50 units/hr (1 mL/hr), next aPTT in 6 hours. -91 - 120 seconds: stop infusion for 30 minutes, decrease rate by 100 units/hr (2 mL/hr), next aPTT in 6 hours. -121 - 150 seconds: stop infusion for 60 minutes, decrease rate by 150 units/hr (3 mL/hr), next aPTT in 6 hours. - Greater than 150 seconds: stop infusion for 60 minutes, decrease rate by 250 units/hr (5 mL/hr), next aPTT in 6 hours. Monitor for signs of bleeding. Look-alike/sound-alike medication - verify indication for use., Indication: Other, Other Indication: hypercoagability, INITIAL Infusion Dose (Units/hr): 1000 units/hr Start: 02-01-2024 End: 02-05-2024 2,000 Units, intravenous, As needed, If aPTT results less than 40 seconds, Starting on Sun02/01/24 at 1726, Look-alike/sound-alike medication - verify indication for use. Observe for bleeding. iohexoL (OMNIPAQUE) 350 mg iodine/mL injection 100 mL (1 source) Start: 01-31-2024 End: 01-31-2024 100 mL, intravenous, Once in imaging, contrast, Starting on Aleida 01/31/24 at 2350, For 1 dose, VESICANT (RED) 1 ml ketorolac tromethamine 30 mg/ml injection (1 source) Nonsteroidal Anti-inflammatory Drug, Cyclooxygenase Inhibitor Start: 02-05-2024 End: 02-05-2024 15 mg, intramuscular, Once, On Sun02/05/24 at 1645, For 1 dose, Look-alike/sound -alike medication - verify indication for use. Duration of therapy is not to exceed 5 days. Maximum recommended dose + 120mg/24 hours. 1 ml LORazepam 2 mg/ml injection (2 sources) Benzodiazepine Start: 02-03-2024 End: 02-03-2024 take 1 mg intravenously once 1 mg, intravenous, Once, On Sun02/03/24 at 1145, For 1 dose, Look-alike/sound -alike medication - verify indication for use;IV use requires increased monitoring of HR,BP,Respiratio ns and Pulse Oximetry;For IV-dilute with equal volume PF sod chloride, Indication: Other, Indication: for MRI Start: 02-01-2024 End: 02-01-2024 take 2 mg intravenously once as needed for anxiety 2 mg, intravenous, Once as needed, anxiety, sedation, Starting on Sun02/01/24 at 1531, For 1 dose, For LP Look-alike/sound-alike medication - verify indication for use;IV use requires increased monitoring of HR,BP,Respirations and Pulse Oximetry;For IV-dilute with equal volume PF sod chloride, Indication: Procedural Moderate Sedation magnesium sulfate IVPB 1000 mg/100 mL in dextrose 5% (10 mg/mL premix) (1 source) Start: 02-02-2024 End: 02-05-2024 take 1000 mg intravenously every six hours as needed magnesium sulfate IVPB 1000 mg/100 mL in dextrose 5% (10 mg/mL premix) methylPREDNISolone 125 mg injection (1 source) Corticosteroid Start: 01-31-2024 End: 01-31-2024 250 mg, intravenous, Once, On Aleida 01/31/24 at 1715, For 1 dose, May alter blood glucose or insulin requirements. Look-alike/soun d-alike medication - verify indication for use. metoprolol tartrate 25 mg oral tablet (17 [...] the morning and at bedtime. 0 Active multivitamin (THERAGRAN) tablet (19 sources) Start: 03-29-2023 End: 01-31-2024 take 1 tablet by mouth in the morning multivitamin (THERAGRAN) tablet Take 1 tablet by mouth in the morning. 03/29/2023 01/31/2024 Discontinued (Stop Taking at Discharge) Start: 03-29-2023 take 1 tablet by chavez th in the morning multivitamin (THERAGRAN) tablet Take 1 tablet by mouth in the morning. 03/29/2023 Active Start: 03-29-2023 take 1 tablet by chavez th in the morning multivitamin (THERAGRAN) tablet Take 1 tablet by mouth in the morning. 0 03/29/2023 Active NIFEdipine 60 mg osmotic 24 hr [...] day(s), # 90 cap(s), Refills(s) 1, [facility] #[id number], 175, cm, 08/10/22 12:49:00 EDT, Height/Length Dosing, 133.3, kg, 08/10/22 12:49:00 EDT, Weight Dosing Start Date: 08/10/22 Stop Date: 02/06/23 Status: Ordered Start: 03-10-2022 take 1 capsule by mo [facility] once daily omeprazole 40 mg Cap-DR 40 mg = 1 cap(s), Oral, Daily, # 30 cap(s), Refills(s) 2, Pharmacy: [facility] #[id number], 172, cm, 03/10/22 12:42:00 EST, Height/Length Dosing, 133, kg, 03/10/22 12:42:00 EST, Weight Dosing Start Date: 03/10/22 Status: Ordered microencapsulated potassium chloride 10 meq extended release oral tablet (20 sources) Start: 01-31-2024 End: 02-05-2024 20 mEq, oral, 2 times daily, First dose on Aleida 01/31/24 at 2100, Do not crush or chew. Start: 08-23-2023 Potassium Chlo ride (Yms-Dhrj-Rdn M20) 20 mEq oral tablet, extended release Refills(s) 0 Start Date: 08/23/23 Status: Ordered Start: 12-21-2022 take 1 tablet by chavez th in the morning potassium chloride CR (Klor-Con M20) 20 MEQ ER tablet Take 20 mEq by mouth in the morning and 20 mEq before bedtime. 12/21/2022 Active sevelamer carbonate 800 mg oral tablet (11 [...] evening. Take with meals. 0 02/02/2023 Active 125 ml sodium chloride 9 mg/ ml prefilled syringe (7 sources) Start: 02-03-2024 End: 02-03-2024 10 mL, intravenous, Once in imaging, line care, MRI, Starting on Wyn[place] 02/03/24 at 1215, For 1 dose Start: 01-31-2024 End: 01-31-2024 80 mL, intravenous, Once in imaging, pre/post contrast, Starting on [facility] 01/31/24 at 2350, For 1 dose Start: 01-31-2024 End: 02-05-2024 3 mL, intravenous, Every 12 hours scheduled, First dose on [facility] 01/31/24 at 2100 Start: 01-31-2024 End: 02-05-2024 10 mL, intravenous, As neede d, line care, Starting on [facility] 01/31/24 at 2350 Start: 01-31-2024 End: 02-05-2024 take 20 mL intravenously every hour as needed 20 mL/hr, intravenous, Continuous PRN, to maintain patency of lines, Starting on Sun01/31/24 at 1527 Start: 01-31-2024 End: 02-05-2024 take 25 mL intravenously every hour as needed 25 mL, intravenous, at 100 mL/hr, Administer over 15 Minutes, As needed, line care, line care after IVPB administration, Starting on Sun01/31/24 at 1527 vitamin b12 1 mg oral tablet (20 sources) Vitamin B12 Start: 02-01-2024 End: 02-05-2024 take 1000 ug by mouth once daily 1,000 mcg, oral, Daily, First dose on Sun02/01/24 at 0900 Start: 01-29-2024 cyanocobalamin 1,000 mcg, Daily Start Date: 01/29/24 Status: Ordered voclosporin capsule 23.7 mg (1 source) Start: 01-31-2024 End: 02-05-2024 take 23.7 mg by mouth twice daily 23.7 mg, oral, 2 times daily, First dose on Sun01/31/24 at 2100, Take on empty stomach Problems Active Problems Problem Classification Problem Date Documented Da te Episodic/Chronic Administrative/social admission (2 sources) Patient encounter status; Translations: [Other specified counseling] 05-13-2024 Episodic Anxiety disorders (20 sources) Anxiety disorder; Translations: [Anxiety disorder, unspecified] Onset: 2 Chronic Attention-deficit, conduct, and disruptive behavior disorders (12 sources) Adult attention deficit hyperactivity disorder 02-15-2022 Chronic Attention-deficit, conduct, and disruptive behavior disorders (20 sources) Attention deficit hyperactivity disorder, predominantly inattentive type; Translations: [Other specified behavioral and emotional disorders with onset usually occurring in childhood and adolescence] Onset: 4 02-16-2022 Chronic Biliary tract disease (20 sources) Cholelithiasis without obstruction; Translations: [Calculus of gallbladder without cholecystitis without obstruction] Onset: 2 Episodic Chronic kidney disease (1 source) Chronic kidney disease stage 3; Translations: [Stage 3 chronic kidney disease, unspecified whether stage 3a or 3b CKD ([facility])] 06-13-2023 Chronic Chronic kidney disease (2 sources) [...] 1 06-23-2020 Chronic Deficiency and other anemia (9 sources) Anemia 07-05-2022 Episodic Diabetes mellitus without complication (20 sources) Type 2 diabetes mellitus; Translations: [Type 2 diabetes mellitus without complications] Onset: 4 02-16-2022 Chronic Diseases of mouth; excluding dental (1 source) Other diseases of tongue; Translations: [Other diseases of tongue] Onset: Episodic Esophageal disorders (20 sources) Gastroesophageal reflux disease; Translations: [Gastroesophageal reflux disease without esophagitis] Onset: 3 08-10-2022 Chronic Essential hypertension (20 sources) Hypertensive disorder; Translations: [Essential (primary) hypertension] Onset: 9 02-15-2022 Chronic Gastritis and duodenitis (19 sources) Gastritis; Translations: [Gastritis, unspecified, without bleeding] Onset: 3 08-10-2022 Episodic Headache; including migraine (20 sources) Migraine without aura, not refractory ; Translations: [Migraine without aura, not intractable, without status migrainosus] Onset: 4 07-05-2023 Chronic Headache; including migraine (3 sources) Headache; including migraine; Translations: [Headache, unspecified] Onset: 4 Malaise and fatigue (14 sources) Right hemiparesis; Translations: [Weakness] Onset: 4 01-31-2024 Episodic Menstrual disorders (20 sources) Menometrorrhagia; Translations: [Excessive and frequent menstruation with irregular cycle] Onset: 3 02-19-2023 Chronic Mood disorders (20 sources) Depressive disorder; Translations: [Depressive disorder] Onset: 4 02-16-2022 Chronic Nausea and vomiting (20 sources) Nausea; Translations: [Nausea] Onset: 2 Episodic Nephritis; nephrosis; renal sclerosis (20 sources) Nephrotic syndrome; Translations: [Nephrotic syndrome with unspecified morphologic changes] Onset: 3 12-17-2022 Chronic Nutritional deficiencies (20 sources) Vitamin D deficiency; Translations: [Vitamin D deficiency, unspecified] Onset: 3 11-28-2022 Chronic Other acquired deformities (2 sources) Equinus contracture of the ankle; Translations: [Contracture, right ankle] 12-24-2023 Chronic Other and ill-defined heart disease (2 sources) Cardiomegaly; Translations: [Cardiomegaly] Onset: Chronic Other and ill-defined heart disease (11 sources) Left ventricular hypertrophy; Translations: [Cardiomegaly] Onset: 4 01-31-2024 Chronic Other congenital anomalies (2 sources) Os trigonum; 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] 12-24-2023 Chronic Other congenital anomalies (2 sources) Right metatarsus adductus; Translations: [Congenital metatarsus adductus, right foot] 12-24-2023 Chronic Other ear and sense organ disorders (1 source) Tinnitus of left ear; Translations: [Tinnitus, left ear] 01-30-2024 Episodic Other female genital disorders (2 sources) Abnormal uterine bleeding; Translations: [Abnormal uterine and vaginal bleeding, unspecified] 05-13-2024 Chronic Other gastrointestinal disorders (8 sources) Abdominal wind pain; Translations: [Gas pain] Onset: 3 08-10-2022 Episodic Other gastrointestinal disorders (1 source) Digestive system finding; Translations: [Other specified symptoms and signs involving the digestive system and abdomen] Onset: 4 Episodic Other gastrointestinal disorders (14 sources) Constipation alternates with diarrhea; Translations: [Other specified symptoms and signs involving the digestive system and abdomen] Onset: 4 08-22-2023 Episodic Other inflammatory condition of skin (3 sources) Lupus erythematosus 08-22-2023 Chronic Other lower respiratory disease (1 source) Other forms of dyspnea; Translations: [Other forms of dyspnea] Onset: 4 Episodic Other lower respiratory disease (1 source) Cough Onset: 4 Episodic Other lower respiratory disease (1 source) Wheezing Onset: 4 Episodic Other nervous system disorders (2 sources) Other chronic pain; Translations: [OTHER CHRONIC PAIN] Onset: 2 Chronic Other nervous system disorders (2 sources) Difficulty walking; Translations: [Difficulty in walking, not elsewhere classified] 12-24-2023 Chronic Other nervous system disorders (12 sources) Lopez's palsy; 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] Onset: 4 01-30-2024 Episodic Other nervous system disorders (2 sources) Lopez's palsy; 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] Onset: 4 Episodic Other nutritional; endocrine; and metabolic disorders (12 sources) Morbid obesity 02-16-2022 Chronic Other nutritional; endocrine; and metabolic disorders (9 sources) Body mass index 40+ - severely obese 06-26-2022 Chronic Other nutritional; endocrine; and metabolic disorders (2 sources) Body mass index 30+ - obesity; Translations: [Body mass index (BMI) 39.0-39.9, adult] 07-31-2023 Chronic Other nutritional; endocrine; and metabolic disorders (2 sources) Body mass index (BMI) 39.0-39.9, adult; Translations: [Body mass index (BMI) 39.0-39.9, adult] Onset: 4 Chronic Other skin disorders (1 source) Rash and other nonspecific skin eruption; Translations: [Rash and other nonspecific skin eruption] Onset: 4 Episodic Other upper respiratory disease (20 sources) Allergic rhinitis; Translations: [Allergic rhinitis, unspecified] Onset: 4 02-16-2022 Chronic Other upper respiratory infections (2 sources) Chronic sinusitis, unspecified; Translations: [Sinusitis] Onset: 4 Chronic Screening and history of mental health and substance abuse codes (4 sources) H/O: Disorder; Translations: [Personal history of nicotine dependence] Onset: 4 Episodic Sexually transmitted infections (not HIV or hepatitis) (20 sources) Syphilis titer test positive ; 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, unspecified as early or late] Onset: 3 11-28-2022 Chronic Sexually transmitted infections (not HIV or hepatitis) (1 source) Syphilis, unspecified; Translations: [Syphilis, unspecified] Onset: 4 Episodic Spondylosis; intervertebral disc disorders; other back problems (14 sources) Backache; Translations: [Cervicalgia] Onset: 4 02-16-2022 Episodic Systemic lupus erythematosus and connective tissue disorders (20 sources) Systemic lupus erythematosus; Translations: [Systemic lupus erythematosus, unspecified] Onset: 3 11-28-2022 Chronic Systemic lupus erythematosus and connective tissue disorders (1 source) Systemic lupus erythematosus and connective tissue disorders Onset: 4 Unclassified (9 sources) Drug therapy finding 06-26-2022 Unclassified (2 sources) New Patient Onset: 4 Unclassified (3 sources) Long-term current use of cannabis 08-22-2023 Unclassified (2 sources) New Patient Visit; Translations: [New Patient Visit] Onset: 4 Unclassified (1 source) MNT - Individual Onset: 4 Unclassified (2 sources) 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; Translations: [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) use of inhibitors of nucleotide synthesis] Onset: 3 Unclassified (1 source) Tongue Swelling - Minor Onset: 4 Unclassified (1 source) Rash Onset: 4 Unclassified (1 source) Weakness - Generalized Onset: 4 Unclassified (1 source) Ingestion - Accidental Onset: 4 Unclassified (1 source) Earache Onset: 4 Unclassified (1 source) RUNNY NOSE, SORE THROAT Onset: 4 Unclassified (1 source) Overdose - Accidental Onset: 4 Urinary tract infections (19 sources) Urinary tract infectious disease; Translations: [Urinary tract infection, site not specified] Onset: 3 Episodic Viral infection (1 source) Other viral agents as the cause of diseases classified elsewhere; Translations: [Other viral agents as the cause of diseases classified elsewhere] Onset: 4 Episodic Past or Other Problems Problem Classification Problem Date Documented Da te Episodic/Chronic Abdominal pain (20 sources) Epigastric pain; Translations: [Epigastric pain] Onset: 1 Episodic Acute and unspecified renal failure (20 sources) Acute injury of kidney; Translations: [Acute kidney failure, unspecified] Onset: 3 11-28-2022 Episodic Allergic reactions (3 sources) Environmental allergy; Translations: [Other allergy status, other than to drugs and biological substances] Onset: 4 08-02-2023 Episodic Blindness and vision defects (3 sources) Eye / vision finding; Translations: [Unspecified visual disturbance] Onset: 4 07-05-2023 Episodic Cancer of cervix (20 sources) Low grade squamous intraepithelial lesion on cervical Papanicolaou smear; Translations: [Low grade squamous intraepithelial lesion on cytologic smear of cervix (LGSIL)] Onset: 0 07-17-2022 Episodic Cardiac dysrhythmias (1 source) Tachycardia, unspecified; Translations: [Tachycardia, unspecified] Onset: 4 Episodic Contraceptive and procreative management (20 sources) [...] unspecified] Onset: 1 Resolved: 1 06-30-2020 Episodic Fluid and electrolyte disorders (12 sources) Hypokalemia; Translations: [Hypokalemia] Onset: 4 01-31-2024 Episodic Genitourinary symptoms and ill-defined conditions (16 sources) Microscopic hematuria; Translations: [Other microscopic hematuria] Onset: 4 01-31-2024 Episodic Headache; including migraine (14 sources) Daily headache; Translations: [Daily headache] Onset: 4 07-05-2023 Episodic Hemorrhage during ; abruptio placenta; placenta previa (20 sources) Low lying placenta; Translations: [Low lying placenta NOS or without hemorrhage, unspecified trimester] Onset: 9 Resolved: 0 02-03-2020 Episodic Immunizations and screening for infectious disease (16 sources) Encounter for screening for human papillomavirus (HPV); Translations: [Exposure to Human immunodeficiency virus] Onset: 2 01-31-2024 Episodic Inflammatory diseases of female pelvic organs (20 sources) Cyst of Bartholin's gland duct; Translations: [Cyst of Bartholin's gland] Onset: 3 01-31-2024 Episodic Mood disorders (20 sources) Mood disorders Onset: 3 Resolved: 4 12-18-2022 Nonspecific chest pain (20 sources) Chest pain; Translations: [Other chest pain] Onset: 4 06-19-2023 Episodic Other aftercare (3 sources) Other 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) drug therapy; Translations: [OTH ALF CURRENT DRUG THERAPY] Onset: 2 Episodic Other aftercare (20 sources) Drug therapy status; Translations: [Other 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) drug therapy] Onset: 3 12-20-2022 Episodic Other aftercare (17 sources) Drug therapy finding; Translations: [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 (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) use of anticoagulants] Onset: 3 02-19-2023 Episodic Other aftercare (20 sources) 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 systemic steroid user; Translations: [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) use of systemic steroids] Onset: 3 07-04-2023 Episodic Other aftercare (3 sources) Long-term current use of drug therapy; Translations: [Other 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) drug therapy] Onset: 3 07-31-2023 Episodic Other aftercare (13 sources) Long-term current use of mycophenolate; Translations: [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] Onset: 3 12-20-2022 Episodic Other aftercare (1 source) 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) use of systemic steroids; Translations: [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) use of systemic steroids] Onset: 4 Episodic Other complications of ; puerperium affecting [...] 3 01-23-2023 Episodic Other connective tissue disease (3 sources) Fibromyalgia; Translations: [Fibromyalgia] Onset: 3 Episodic Other connective tissue disease (1 source) Myalgia, unspecified site; Translations: [Myalgia, unspecified site] Onset: 4 Episodic Other connective tissue disease (2 sources) Pain in right foot; Translations: [Pain in right foot] 12-24-2023 Episodic Other connective tissue disease (1 source) Cramp and spasm; Translations: [Cramp and spasm] Onset: 4 Episodic Other connective tissue disease (1 source) Pain in upper limb Onset: 4 Episodic Other connective tissue disease [...] ear] Onset: 4 Episodic Other gastrointestinal disorders (1 source) Diarrhea, unspecified; Translations: [Diarrhea, unspecified] Onset: 4 Episodic Other lower respiratory disease (14 sources) Dyspnea on exertion; Translations: [Other forms of dyspnea] Onset: 4 08-02-2023 Episodic Other lower respiratory disease (2 sources) Shortness of breath Onset: 4 Episodic Other lower respiratory disease (1 source) Shortness of breath; Translations: [Shortness of breath] Onset: 4 Episodic Other non-traumatic joint disorders (2 sources) Instability of joint of right ankle; Translations: [Other instability, right ankle] 12-24-2023 Episodic Other and delivery including normal (20 sources) Dichorionic diamniotic twin ; Translations: [Twin , dichorionic/diamniotic , second trimester] Onset: 9 Resolved: 1 07-17-2022 Episodic Other screening for suspected conditions (not mental disorders or infectious disease) (5 sources) Encounter for screening for malignant neoplasm of cervix; Translations: [Encounter for screening, unspecified] Onset: 2 Episodic Other skin disorders (1 source) Ingrowing nail; Translations: [Ingrowing nail] Onset: 4 Episodic Other skin disorders (1 source) Other hypertrophic disorders of the skin; Translations: [Other hypertrophic disorders of the skin] Onset: 4 Episodic Other skin disorders (1 source) Skin problem Onset: 4 Episodic Other upper respiratory disease (1 source) Nasal congestion Onset: 4 Episodic Other upper respiratory infections (1 source) Acute upper respiratory infection, unspecified; Translations: [Acute upper respiratory infection, unspecified] Onset: 4 Episodic Otitis media and related conditions (1 source) Otitis media, unspecified, unspecified ear; Translations: [Otitis media, unspecified, unspecified ear] Onset: 4 Episodic Phlebitis; thrombophlebitis and thromboembolism (20 sources) H/O: Deep vein thrombosis; Translations: [Personal history of other venous thrombosis and embolism] Onset: 0 11-28-2022 Episodic Poisoning by nonmedicinal substances (1 source) Toxic effect of unspecified substance, accidental (unintentional), initial encounter; Translations: [Toxic effect of unspecified substance, accidental (unintentional), initial encounter] Onset: 4 Episodic Polyhydramnios and other problems of amniotic cavity (20 sources) Polyhydramnios; Translations: [Polyhydramnios, second trimester, not applicable or unspecified] Onset: 9 Resolved: 0 02-03-2020 Episodic Pulmonary heart disease (20 sources) Pulmonary embolism; Translations: [Other pulmonary embolism without acute cor pulmonale] Onset: 0 07-05-2022 Episodic Residual codes; unclassified (20 sources) H/O: severe pre-eclampsia; Translations: [Personal history of other complications of , childbirth and the puerperium] Onset: 9 02-03-2020 Episodic Residual codes; unclassified (20 sources) ultrasound scan abnormal; Translations: [Pyelectasis of fetus on ultrasound] Onset: 9 Resolved: 0 02-03-2020 Episodic Substance-related disorders (12 sources) Long-term current use of cannabis; Translations: [Cannabis use, unspecified, uncomplicated] Onset: 4 01-31-2024 Episodic Superficial injury; contusion (20 sources) Intra-abdominal hematoma; Translations: [Contusion of abdominal wall, initial encounter] Onset: 1 06-09-2020 Episodic Unclassified (1 source) Exposure to 2019 novel coronavirus; Translations: [Contact with and (suspected) exposure to COVID19] Results Test Name Value Interpretation Reference Range Facility Ambulatory Visit Summaryon 0 05-20-2024 Ambulatory Visit Summary Ambulatory Visit Summary THOR RUDOLPHAlice Pope :1990 Visit Date:05/19/2024 Ambulatory Visit Instructions Your Diagnosis Frequent UTI Your Care Team Attending Physician - PAULINA JOY, CYNTHIA Haywood Primary Care Physician - LINDSEY JENNINGS This Is Your Medications List trimethoprim (trimethoprim 100 mg Tab) Contact prescribing physician if questions or concerns acetaminophen acyclovir (acyclovir 400 mg Tab) albuterol (Albuterol (Eqv-ProAir HFA) 90 mcg/inh inhalation aerosol) allopurinol (allopurinol 100 mg Tab) amitriptyline (amitriptyline 50 mg Tab) aspirin (aspirin 81 mg oral capsule) bumetanide (bumetanide 2 mg Tab) carvedilol (carvedilol 6.25 mg Tab) cholecalciferol clindamycin cyanocobalamin cyclobenzaprine (cyclobenzaprine 10 mg Tab) dicyclomine (dicyclomine 10 mg Cap) emtricitabine-tenofov ir (Descovy 200 mg-25 mg oral tablet) famotidine (Pepcid 20 mg Tab) ferrous sulfate (FeroSul 325 mg oral tablet) ketoconazole topical (ketoconazole Top 2% Shampoo) magnesium oxide (magnesium oxide 400 mg Tab) medroxyPROGESTERone (Provera 10 mg Tab) methocarbamol (methocarbamol 750 mg Tab) mycophenolate mofetil (mycophenolate mofetil 500 mg oral tablet) potassium chloride (Potassium Chloride (Nnd-Zefy-Xvb M20) 20 mEq oral tablet, extended release) predniSONE (predniSONE 20 mg Tab) rivaroxaban (Xarelto) rizatriptan (rizatriptan 10 mg Tab) voclosporin (Lupkynis 7.9 mg oral capsule) [Image Removed: STOP]Stop taking these medications nitrofurantoin (nitrofurantoin macrocrystals 50 mg Cap) Procedures Performed section, Cholecystectomy, Incision and drainage of hematoma, Tubal ligation. Discharge Vitals Heart Rate (Peripheral) 68 Respiratory Rate 16 Blood Pressure 128/72 Height 174 cm Height 69 in Weight 124 kg Weight 273.373 lb BMI 40.96 What to do next You Need to Schedule the Following Appointments Follow Up with CYNTHIA GALLARDO PA-C, URL When: In 1 year Where: [address] [place] [address] Medications What How Much When Instructions New trimethoprim (trimethoprim 100 mg Tab) See instructions Refills: 3 1 tab po with sexual activity for UTI prevention. Pickup at [facility] [id number] Unchanged acetaminophen 325 Milligram Contact prescribing physician if questions or concerns Unchanged acyclovir (acyclovir 400 mg Tab) 1 Tablets By Mouth 5 times a day Contact prescribing physician if questions or concerns Unchanged albuterol (Albuterol (Eqv-ProAir HFA) 90 mcg/ inh inhalation aerosol) Contact prescribing physician if questions or concerns Unchanged allopurinol (allopurinol 100 mg Tab) Contact prescribing physician if questions or concerns Unchanged amitriptyline (amitriptyline 50 mg Tab) 1 Tablets By Mouth Once a day (at bedtime) Contact prescribing physician if questions or concerns Unchanged aspirin (aspirin 81 mg oral capsule) 1 Capsules By Mouth Contact prescribing physician if questions or concerns Unchanged bumetanide (bumetanide 2 mg Tab) Contact prescribing physician if questions or concerns Unchanged carvedilol (carvedilol 6.25 mg Tab) Contact prescribing physician if questions or concerns Unchanged cholecalciferol Contact prescribing physician if questions or concerns Unchanged clindamycin 150 Milligram Contact prescribing physician if questions or concerns Unchanged cyanocobalamin 1,000 Microgram Every day Contact prescribing physician if questions or concerns Unchanged cyclobenzaprine (cyclobenzaprine 10 mg Tab) 1 Tablets By Mouth As needed for for spasm Contact prescribing physician if questions or concerns Unchanged dicyclomine (dicyclomine 10 mg Cap) Contact prescribing physician if questions or concerns Unchanged emtricitabine-tenofov ir (Descovy 200 mg-25 mg oral tablet) Contact prescribing physician if questions or concerns Unchanged famotidine (Pepcid 20 mg Tab) 1 Tablets By Mouth Every day as needed for Control of stomach acid Contact prescribing physician if questions or concerns Unchanged ferrous sulfate (FeroSul 325 mg oral tablet) 1 Tablets By Mouth Every day Contact prescribing physician if questions or concerns Unchanged ketoconazole topical (ketoconazole Top 2% Shampoo) Contact prescribing physician if questions or concerns Unchanged magnesium oxide (magnesium oxide 400 mg Tab) Contact prescribing physician if questions or concerns Unchanged medroxyPROGESTERone (Provera 10 mg Tab) By Mouth Every day Contact prescribing physician if questions or concerns Unchanged methocarbamol (methocarbamol 750 mg Tab) 1 Tablets By Mouth Contact prescribing physician if questions or concerns Unchanged mycophenolate mofetil (mycophenolate mofetil 500 mg oral tablet) Contact prescribing physician if questions or concerns Unchanged potassium chloride (Potassium Chloride (Jvk-Mrjd-Cje M20) 20 mEq oral tablet, extended release) Contact prescribing physician if (more content not included)... Normal [facility] Urology Office/Clinic Noteon 05-19-2024 Urology Office/Clinic Note Urology Office/Clinic Note Chief Complaint Discuss alternatives to help with frequent UTIs HPI Staff 33yr old female pt here to discuss continued recurrent uti. Was started on post-coital abx August 2022, which pt stated at last OV was working well for her. However pt had UTI in Dec, treated w Augmentin x 10d on 04/10/24. Sx resolved, then came back a few weeks later. Treated again w Augmentin x 7d on 05/12/24. Just got done with Diflucan from Dr. Albright. Pt currently asx. UA shows lg blood but Pt is on menstrual cycle. Dysuria: denies pain and burning Incomplete bladder emptying: denies Hematuria: denies Frequency: depends on fluid intake, denies Urgency: denies Nocturia: once a night Stream: denies hesitancy, has a stead stream Leaking: denies Post void dripping: denies Wearing pads/ Depends: denies Urge incontinence: denies Stress incontinence: sometimes when coughing, sneezing, laughing Incontinence without Sensory Awareness: denies Abdominal pain: denies Flank pain: denies Sexual complaints: _ Review of Systems PHQ Score Initial Depression Screen Score: 0 SCORE no fever, chills, malaise, myalgia. no rash/lesions. no chest pain, palpitations, or SOB. no abdominal pain, nausea, vomiting. Physical Exam Vitals & Measurements HR: 68(Peripheral) RR: 16 BP: 128/72 HT: 69 in HT: 174 cm WT: 124 kg WT: 273.373 lb BMI: 40.96 General: nontoxic, NAD Mouth: moist mucosa Lungs: normal respiratory effort Cardio: regular rate, good distal perfusion Abdomen: nondistended Neurologic: Grossly normal Skin: No rashes or suspicious lesions Assessment/Plan 1. Frequent UTI (N39.0: Urinary tract infection, site not specified) Was doing well for almost 2 yrs on post-coital Macrobid. However had 2 recent UTIs. Will try switching post-coital suppressive abx to Trimethoprim. Pt has listed allergy to Bactrim but reports frequent heat rash which seemed to worsen after taking Bactrim. Has taken plenty of times with no reaction. Discussed risks/benefits. Pt willing to try suppressive Trimethoprim. Call if gets breakthrough UTIs on this. Otherwise can f/u in 1 yr. Ordered: E&M of Est. Patient Moderate 30-39 Min 88990 Urnls Dip Stick Auto w/o Microscopy POC [id number] Orders: trimethoprim, See Instructions, 1 tab po with sexual activity for UTI prevention., # 15 tab(s), Refills(s) 3, Pharmacy: [facility] [id number], 174, cm, 05/19/24 10:34:00 EST, Height/Length Dosing, 124, kg, 05/19/24 10:34:00 EST, Weight Dosing Follow-up With When Contact Information PAULINA JOY, CYNTHIA Haywood, URL In 1 year [address] 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 Medications acetaminophen, 325 mg acyclovir 400 mg Tab, 400 mg= 1 tab(s), Oral, 5x/Day Albuterol (Eqv-ProAir HFA) 90 mcg/inh inhalation aerosol allopurinol 100 mg Tab amitriptyline 50 mg Tab, 50 mg= 1 tab(s), Oral, Once a day (at bedtime) aspirin 81 mg oral capsule, 81 mg= 1 cap(s), Oral bumetanide 2 mg Tab carvedilol 6.25 mg Tab cholecalciferol clindamycin, 150 mg cyanocobalamin, 1000 mcg, Daily cyclobenzaprine 10 mg Tab, 10 mg= 1 tab(s), Oral, PRN Descovy 200 mg-25 mg oral tablet dicyclomine 10 mg Cap FeroSul 325 mg oral tablet, 325 mg= 1 tab(s), Oral, Daily ketoconazole Top 2% Shampoo Lupkynis 7.9 mg oral capsule magnesium oxide 400 mg Tab methocarbamol 750 mg Tab, 750 mg= 1 tab(s), Oral mycophenolate mofetil 500 mg oral tablet Pepcid 20 mg Tab, 20 mg= 1 tab(s), Oral, Daily, PRN Potassium Chloride (Ehw-Skmx-Lsb M20) 20 mEq oral tablet, extended release predniSONE 20 mg Tab Provera 10 mg Tab, Oral, Daily rizatriptan 10 mg Tab trimethoprim 100 mg Tab, See Instructions, 3 refills Xarelto, 20 mg, Oral, qPM Allergies Bactrim (Rash) Keflex (Leg pain) ibuprofen (medication interference) Social History Alcohol - Denies Alcohol Use, 07/05/2022 Never., 05/19/2024 Substance Abuse Past. Marijuana. Daily. Previous treatment: None., 05/19/2024 Tobacco - Denies Tobacco Use, 07/05/2022 Former smoker, quit more than 30 days ago Tobacco Use:. Never Smokeless Tobacco Use:. Cigarettes, 05/19/2024 Family History Crohn's disease: Aunt. Immunizations Vaccine Date Status Comments influenza virus vaccine, inactivated 02/19/2024 Recor (more content not included)... Normal [facility] Comment on above: Result Comment: Elec tronically Signed By: PAULINA JOY, CYNTHIA Haywood\.br\Date and Time Signed: 05/19/24 15:58 EST RAPID STREP SCR NURSINGon S. pyogenes Ag EIA Ql (Throat) Negative Normal NEG [facility] Comment on above: Performed By: #### 6 [id number] ####[facility] ([id number])[address] [place] [address] SARS/FLU A+B/RSV by NAAT/Mol ecularon 04-28-2024 SARS/FLU A+B/RSV by NAAT/Molecular Normal [facility] Comment on above: Performed By: #### C OVFLR ####[facility] ([id number])[address] [place] [id number] 29on 04-09-2024 29 Addended by: ROBERTO CARLOS KENDRICK on: 04/09/2024 04:40 PM Modules accepted: Orders Normal [facility] CBC WITH AUTO DIFFERENTIALon 04-09-2024 Basophils (Bld) [#/Vol] 0.03 10*3/uL Normal 0.00-0.20 [facility] Comment on above: Performed By: #### L [id number] ####[facility] (BEAKER)[address] [place] [address] Basophils/100 WBC (Bld) 0.4 % Normal 0.0-1.0 [facility] Comment on above: Performed By: #### L [id number] ####[facility] (BEAKER)[address] [place] [address] Eosinophils (Bld) [#/Vol] 0.07 10*3/uL Normal 0.00-0.50 [facility] Comment on above: Performed By: #### L [id number] ####[facility] (BEAKER)[address] [place] [address] Eosinophils/100 WBC (Bld) 1.0 % Normal 0.0-6.0 [facility] Comment on above: Performed By: #### L [id number] ####[facility] (BEAKER)[address] [place] [address] Erythrocyte distribution width (RBC) [Ratio] 12.9 % Normal 11.5-15.0 [facility] Comment on above: Performed By: #### L [id number] ####[facility] (BEAKER)[address] [place] [address] ERYTHROCYTE MEAN CORPUSCULAR HEMOGLOBIN CONCENTRATION (G/DL) BY AUTOMATED 33.1 g/dL Normal 32.0-35.0 [facility] Comment on above: Performed By: #### L [id number] ####[facility] (BEAKER)[address] [place] [address] Hematocrit (Bld) [Volume fraction] 35.9 % Low 36.0-48.0 [facility] Comment on above: Performed By: #### L [id number] ####[facility] (BEAKER)[address] [place] [address] Hemoglobin (Bld) [Mass/Vol] 11.9 g/dL Low 12.0-15.0 [facility] Comment on above: Performed By: #### L [id number] ####[facility] (BEAKER)[address] [place] [address] Immature granulocytes (Bld) [#/Vol] 0.02 10*3/uL Normal 0.00-0.20 [facility] Comment on above: Performed By: #### L [id number] ####[facility] (AKER)[address] [place] [address] Immature granulocytes/100 WBC (Bld) 0.3 % Normal 0.0-1.0 [facility] Comment on above: Performed By: #### L [id number] ####[facility] (BEAKER)[address] [place] [address] Lymphocytes (Bld) [#/Vol] 0.83 10*3/uL Low 1.20-4.00 [facility] Comment on above: Performed By: #### L [id number] ####[facility] (BEAKER)[address] [place] [address] Lymphocytes/100 WBC (Bld) 12.3 % Low 20.0-45.0 [facility] Comment on above: Performed By: #### L [id number] ####[facility] (BEAKER)[address] [place] [address] MCH (RBC) [Entitic mass] 30.4 pg Normal 27.0-33.0 [facility] Comment on above: Performed By: #### L [id number] ####[facility] (BEAKER)[address] [place] [address] MCV (RBC) [Entitic vol] 91.6 fL Normal 82.0-98.0 [facility] Comment on above: Performed By: #### L [id number] ####[facility] (BEAKER)[address] [place] [address] Monocytes (Bld) [#/Vol] 0.54 10*3/uL Normal 0.10-1.00 [facility] Comment on above: Performed By: #### L [id number] ####[facility] ([facility])[address] [place] [address] Monocytes/100 WBC (Bld) 8.0 % Normal 5.0-12.0 [facility] Comment on above: Performed By: #### L [id number] ####[facility] ([facility])[address] [place] [address] Neutrophils (Bld) [#/Vol] 5.26 10*3/uL Normal 1.60-7.60 [facility] Comment on above: Performed By: #### L [id number] ####[facility] ([facility])[address] [place] [address] Neutrophils/100 WBC (Bld) 78.0 % High 40.0-72.0 [facility] Comment on above: Performed By: #### L [id number] ####[facility] ([facility])[address] [place] [address] NRBC (PER 100 WBCS) BY AUTOMATED COUNT 0.0 % Normal 0 [facility] Comment on above: Performed By: #### L [id number] ####[facility] ([facility])[address] [place] [address] PLATELETS (10*3/UL) IN BLOOD AUTOMATED COUNT 316 10*3/uL Normal 150-400 [facility] Comment on above: Performed By: #### L [id number] ####[facility] ([facility])[address] [place] [address] RBC (Bld) [#/Vol] 3.92 10*6/uL Normal 3.80-5.00 [facility] Comment on above: Performed By: #### L [id number] ####[facility] (BEAKER)[address] [place] [address] WBC (Bld) [#/Vol] 6.75 10*3/uL Normal 4.00-10.60 [facility] Comment on above: Performed By: #### L [id number] ####[facility] (AKER)[address] [place] [address] CHLAMYDIA TRACHOMATIS AND NE ISSERIA GONORRHEA, TMAon 04-09-2024 CHLAMYDIA TRACHOMATIS DNA PROBE (PRESENCE) IN UNSP SPEC Negative Normal Negative [facility] Comment on above: Result Comment: No C hlamydia trachomatis rRNA Detected. The Aptima Combo 2 Assay is a FDA approved target amplification nucleic acid probe test that utilizes target capture for the in vitro qualitative detection and differentiation of ribosomal RNA (rRNA) from Chlamydia trachomatis (CT) and/or Neisseria gonorrhoeae (GC) to aid the diagnosis of chlamydial and/or gonococcal urogenital disease using the [place] System. The Aptima Combo 2 Assay involves target capture, target amplification by Plumbing Service Technician-Mediated Amplification (TMA), and the detection of the amplification products (amplicon) by the Hybridization Protection Assay (HPA). The internal process controls of the [place] System monitor the target capture, amplification, and detection steps of the assay, this is not intended to control for sampling adequacy. Performed By: #### L [id number] ####[facility] ([facility])[address] [place] [address] NEISSERIA GONORRHOEAE DNA PROBE (PRESENCE) IN UNSP SPEC Negative Normal Negative [facility] Comment on above: Result Comment: No N eisseria gonorrhoeae rRNA Detected. The Aptima Combo 2 Assay is a FDA approved target amplification nucleic acid probe test that utilizes target capture for the in vitro qualitative detection and differentiation of ribosomal RNA (rRNA) from Chlamydia trachomatis (CT) and/or Neisseria gonorrhoeae (GC) to aid the diagnosis of chlamydial and/or gonococcal urogenital disease using the [place] System. The Aptima Combo 2 Assay involves target capture, target amplification by Plumbing Service Technician-Mediated Amplification (TMA), and the detection of the amplification products (amplicon) by the Hybridization Protection Assay (HPA). The internal process controls of the [place] System monitor the target capture, amplification, and detection steps of the assay, this is not intended to control for sampling adequacy. Performed By: #### L [id number] ####[facility] (BEAKER)[address] [place] [address] HIV COMBO 4Gon 04-09-2024 HIV COMBO 4G Negative Normal Negative [facility] Comment on above: Performed By: #### L [id number] ####[facility] ([facility])[address] [place] [address] Office Visiton 04-09-2024 Follow-up visit [id number] Blanca Rudolph 1990 F Date Provider Department Center 04/09/2024 Jason-ORIN PACHECO [facility] Family History Problem Relation Age of Onset Hypertension Mother Hypertension Mother's Sister Crohn's disease Mother's Sister Hypertension Maternal Grandmother Breast cancer Maternal Grandmother Kidney disease Other Migraines Other Family Status - Relation Status Age at Mother Mother's Sister Maternal Grandmother Other Level of Service:74549 [place] OFFICE/OUTPATIENT ESTABLISHED MOD MDM 30 MIN Reason for Visit and Comments: Contact with and (suspected) exposure to human immunodefici [Other] - Currently taking ATB for UTI unsure of name Normal [facility] RPRon 04-09-2024 REAGIN AB PRESENCE IN SERUM BY RPR Reactive Abnormal Nonreactive [facility] Comment on above: Performed By: #### L [id number] ####[facility] ([facility])[address] [place] [address] RPR QUANTITATIVEon RPR QUANT 1:4 High <1:1 [facility] Comment on above: Order Comment: Previ ously reactive FTA, performed on 04/06/2023 Result Comment: The syphilis screen is a treponemal assay; patients with previously treated syphilis could be reactive on this assay, but nonreactive on the RPR Quant assay. Performed By: #### L [id number] #### [facility] ([facility]) [address] [place] [address] No Panel Informationon 04-05 STAPHYLOCOCCUS EPIDERMIDIS, HAEMOLYTICUS, LUGDUNENSIS, SAPROPHYTICUS (URINA 0 [facility] STAPHYLOCOCCUS EPIDERMIDIS, HAEMOLYTICUS, LUGDUNENSIS, SAPROPHYTICUS (URINA Not detected [facility] URINARY TRACT INFECTION (HTR X)on 04-05-2024 ACINETOBACTER BAUMANII 0 [facility] ACINETOBACTER BAUMANII Not detected [facility] LUIS ALBICANS, PARAPSILOSIS, TROPICALIS 0 [facility] LUIS ALBICANS, PARAPSILOSIS, TROPICALIS Not detected [facility] LUIS GLABRATA 0 [facility] LUIS GLABRATA Not detected [facility] LUIS KRUSEI 0 [facility] LUIS KRUSEI Not detected [facility] CITROBACTER FREUNDII 0 [facility] CITROBACTER FREUNDII Not detected [facility] ENTEROBACTER AEROGENES, CLOACAE 0 [facility] ENTEROBACTER AEROGENES, CLOACAE Not detected [facility] ENTEROCOCCUS FAECALIS, FAECIUM 0 [facility] ENTEROCOCCUS FAECALIS, FAECIUM Not detected [facility] ESCHERICHIA COLI 22.692 Abnormal [facility] ESCHERICHIA COLI Detected Abnormal [facility] Interpretation and review of laboratory results Abnormal [facility] KLEBSIELLA PNEUMONIAE, OXYTOCA 0 [facility] KLEBSIELLA PNEUMONIAE, OXYTOCA Not detected [facility] MORGANELLA MORGANII 0 [facility] MORGANELLA MORGANII Not detected [facility] PROTEUS MIRABILIS, VULGARIS 0 [facility] PROTEUS MIRABILIS, VULGARIS Not detected [facility] PSEUDOMONAS AERUGINOSA 0 [facility] PSEUDOMONAS AERUGINOSA Not detected [facility] SERRATIA MARCESCENS 0 [facility] SERRATIA MARCESCENS Not detected [facility] STAPHYLOCOCCUS AUREUS 0 [facility] STAPHYLOCOCCUS AUREUS Not detected [facility] STREPTOCOCCUS AGALACTIAE (GROUP B STREP) 29.522 Abnormal [facility] STREPTOCOCCUS AGALACTIAE (GROUP B STREP) Detected Abnormal [facility] STREPTOCOCCUS PYOGENES (GROUP A STREP) 0 [facility] STREPTOCOCCUS PYOGENES (GROUP A STREP) Not detected [facility] TET B, TET M 26.697 Abnormal [facility] TET B, TET M Detected Abnormal [facility] CBC AND AUTO DIFFon 04-04-20 24 ABSOLUTE BASOPHIL 0.0 X10E9/L Normal 0.0-0.[address] [facility] Comment on above: Performed By: #### C BCA, 53480-9, CMP, 1987-08 ####[facility] ([id number])[address] [place] [address], [address] [place] [address] ABSOLUTE NEUTROPHIL 5.0 X10E9/L Normal 1.5-6.6 [facility] Comment on above: Performed By: #### Nataliia ARGUELLES 45073-3, [facility], 1987-08 ####[facility] ([id number])[address] [place] [address] Basophils/100 WBC (Bld) 0.4 % Normal [facility] Comment on above: Performed By: #### Nataliia ARGUELLES 00900-2, [facility], 1987-08 ####[facility] ([id number])[address], [address] [address] Eosinophils (Bld) [#/Vol] 0.0 10*3/uL Normal 0.0-0.4 [facility] Comment on above: Performed By: #### Nataliia ARGUELLES 74613-4, [facility], 1987-08 ####[facility] ([id number])[address] [address] [place] [address] Eosinophils/100 WBC (Bld) 0.3 % Normal [facility] Comment on above: Performed By: #### Nataliia ARGUELLES 51571-9, [facility], 1987-08 ####[facility] ([id number])[address] [address] [place] [address] Erythrocyte distribution width (RBC) [Ratio] 13.4 % Normal 11.5-15.0 [facility] Comment on above: Performed By: #### Nataliia ARGUELLES 16408-8, [facility], 1987-08 ####[facility] ([id number])[address] [address] [place] [address] Hematocrit (Bld) [Volume fraction] 35.3 % Normal 35-47 [facility] Comment on above: Performed By: #### Nataliia ARGUELLES 76848-8, [facility], 1987-08 ####[facility] ([id number])[address] [address] [place] [address] Hemoglobin (Bld) [Mass/Vol] 12.0 g/dL Normal 11.7-15.5 [facility] Comment on above: Performed By: #### Nataliia ARGUELLES, 96512-5, [facility], 1987-08 ####[facility] ([id number])[address], [address] [place] [address] Lymphocytes (Bld) [#/Vol] 0.9 10*3/uL Low 1.0-3.5 [facility] Comment on above: Performed By: #### Nataliia ARGUELLES, 56900-2, [facility], 1987-08 ####[facility] ([id number])[address] [address] Lymphocytes/100 WBC (Bld) 13.6 % Normal [facility] Comment on above: Performed By: #### Nataliia ARGUELLES, 65473-9, [facility], 1987-08 ####[facility] ([id number])[address], [address] [place] [address] MCH (RBC) [Entitic mass] 31.2 pg Normal 27-34 [facility] Comment on above: Performed By: #### Nataliia ARGUELLES, 21546-1, [facility], 1987-08 ####[facility] ([id number])[address] [address] MCHC (RBC) [Mass/Vol] 33.9 g/dL Normal 32-36 [facility] Comment on above: Performed By: #### Nataliia ARGUELLES, 08072-4, [facility], 1987-08 ####[facility] ([id number])[address] [address] MCV (RBC) [Entitic vol] 92 fL Normal 80-100 [facility] Comment on above: Performed By: #### Nataliia ARGUELLES, 56270-5, [facility], 1987-08 ####[facility] ([id number])[address] [place] [address] Monocytes (Bld) [#/Vol] 0.6 10*3/uL Normal 0-0.9 [facility] Comment on above: Performed By: #### Nataliia ARGUELLES, 22116-0, [facility], 1987-08 ####[facility] ([id number])[address] [address] [address] Monocytes/100 WBC (Bld) 8.5 % Normal [facility] Comment on above: Performed By: #### Nataliia ARGUELLES, 78597-9, [facility], 1987-08 ####[facility] ([id number])[address] [address] [address] Neutrophils/100 WBC (Bld) 77.2 % Normal [facility] Comment on above: Performed By: #### Nataliia ARGUELLES 93151-9, [facility], 1987-08 ####[facility] ([id number])[address] [address] [address] Platelet mean volume (Bld) [Entitic vol] 8.1 fL Normal 7-12 [facility] Comment on above: Performed By: #### Nataliia ARGUELLES, 25306-8, [facility], 1987-08 ####[facility] ([id number])[address] [place] [address] Platelets (Bld) [#/Vol] 315 10*3/uL Normal 150-450 [facility] Comment on above: Performed By: #### Nataliia ARGUELLES, 10493-9, [facility], 1987-08 ####[facility] ([id number])[address] [address] [place] [address] RBC COUNT 3.84 X10E12/L Normal 3.80-5.20 [facility] Comment on above: Performed By: #### Nataliia ARGUELLES, 09658-7, CMP, 1987-08 ####[facility] ([id number])[address], [address] [address] WBC (Bld) [#/Vol] 6.5 10*3/uL Normal 4.0-11.[address] [facility] Comment on above: Performed By: #### C KINDRA, 74968-0, [facility], 1987-08 ####[facility] ([id number])[address], [address] [place] [address] COMPREHENSIVE METABOLIC PANE Gerardo 04-04-2024 Albumin [Mass/Vol] 4.0 g/dL Normal 3.2-5.[address] [facility] Comment on above: Performed By: #### Nataliia ARGUELLES, 88722-7, [facility], 1987-08 ####[facility] ([id number])[address], [address], [place] [address] ALP [Catalytic activity/Vol] 82 U/L Normal 39-130 [facility] Comment on above: Performed By: #### C BCA, 00872-2, [facility], 1987-08 ####[facility] ([id number])[address], [address] [place] [address] ALT [Catalytic activity/Vol] 10 U/L Normal 0-31 [facility] Comment on above: Performed By: #### Nataliia BCA, 27676-6, [facility], 1987-08 ####[facility] ([id number])[address], [address] [place] [address], [place] [address] Anion gap [Moles/Vol] 9 mmol/L Normal 5-15 [facility] Comment on above: Performed By: #### C BCA, 28062-7, [facility], 1987-08 ####[facility] ([id number])[address], [address] [place] [address], [place] [address] AST [Catalytic activity/Vol] 13 U/L Normal 0-41 [facility] Comment on above: Performed By: #### Nataliia BCA, 45296-5, [facility], 1987-08 ####[facility] ([id number])[address], [address] [place] [address] Bilirubin [Mass/Vol] 0.4 mg/dL Normal 0.3-1.2 [facility] Comment on above: Performed By: #### Nataliia ARGUELLES, 37829-2, [facility], 1987-08 ####[facility] ([id number])[address], [address] [place] [address] Calcium [Mass/Vol] 8.3 mg/dL Low 8.5-10.[address] [facility] Comment on above: Performed By: #### Nataliia ARGUELLES, 13561-2, [facility], 1987-08 ####[facility] ([id number])[address] [place] [address] Chloride [Moles/Vol] 104 mmol/L Normal 98-109 [facility] Comment on above: Performed By: #### Nataliia ARGUELLES, 75181-5, [facility], 1987-08 ####[facility] ([id number])[address] [address] [place] [address] CO2 [Moles/Vol] 28 mmol/L Normal 22-32 [facility] Comment on above: Performed By: #### Nataliia ARGUELLES, 76461-5, [facility], 1987-08 ####[facility] ([id number])[address] [address] [place] [address] Creatinine [Mass/Vol] 1.88 mg/dL High 0.40-1.00 [facility] Comment on above: Result Comment: METH OD TRACEABLE TO IDMS STANDARD Performed By: #### Nataliia ARGUELLES, 61854-0, [facility], 1987-08 ####[facility] ([id number])[address] [address] [place] [address] GFR/1.73 sq M.predicted among non-blacks MDRD (S/P/Bld) [Vol rate/Area] 36 mL/min/{1.73_m2} Low >59 [facility] Comment on above: Result Comment: Repo rted eGFR is based on theD-EPI 2020 equation that doesnot use a race coefficient. Performed By: #### C KINDRA, 49820-6, [facility], 1987-08 ####[facility] ([id number])[address], [place] [address] Glucose [Mass/Vol] 96 mg/dL Normal 65-[address] [facility] Comment on above: Performed By: #### C KINDRA, 55173-9, [facility], 1987-08 ####[facility] ([id number])[address] [address], [place] [address] Potassium [Moles/Vol] 4.5 mmol/L Normal 3.5-5.0 [facility] Comment on above: Performed By: #### Nataliia ARGUELLES, 78750-8, [facility], 1987-08 ####[facility] ([id number])[address], [place] [address] Protein [Mass/Vol] 6.5 g/dL Normal 6.0-8.[address] [facility] Comment on above: Performed By: #### Nataliia ARGUELLES, 15585-2, [facility], 1987-08 ####[facility] ([id number])[address] [address], [place] [address] Sodium [Moles/Vol] 141 mmol/L Normal 134-[address] [facility] Comment on above: Performed By: #### C BCA, 62723-7, [facility], 1987-08 ####[facility] ([id number])[address] [address], [place] [address] Urea nitrogen [Mass/Vol] 19 mg/dL Normal 5-23 [facility] Comment on above: Performed By: #### Nataliia ARGUELLES, 40156-9, [facility], 1987-08 ####[facility] ([id number])[address], [address] [place] [address] CRP [Mass/Vol]on 04-04-2024 C REACTIVE PROTEIN 0.5 mg/dL Normal 0.000-0.744 [facility] Comment on above: Performed By: #### C KINDRA, 37885-0, [facility], 1987-08 ####[facility] ([id number])[address] [address] [place] [address] ESR Photometric method (Bld) [Velocity]on 04-04-2024 ESR, ERYTHROCYTE SEDIMENTATION RATE 8 mm/h Normal 0-20 [facility] Comment on above: Performed By: #### C KINDRA, 69350-9, [facility], 1987-08 ####[facility] ([id number])[address] [address] PROTEIN CREAT RATIOon 2023 RANDOM URINE PROTEIN 120 mg/L High <120 [facility] Comment on above: Performed By: #### U PCR ####[facility] ([id number])[address] [address] U/PRO/MACHINE STONECUTTER RATIO CALC 0.13 Normal <0.2 [facility] Comment on above: Result Comment: Neph rotic Syndrome is associated with ratios >3.5 Performed By: #### U PCR ####[facility] ([id number])[address] [address] URINE CREATININE,RDM 94.02 mg/dL Normal [facility] Comment on above: Performed By: #### U PCR ####[facility] ([id number])[address] [address] URINALYSISon 04-04-2024 Bilirubin Ql (U) Negative Normal NEG [facility] Comment on above: Performed By: #### U A ####[facility] ([id number])[address] [address] BLOOD/HGB MODERATE Abnormal NEG [facility] Comment on above: Performed By: #### U A ####[facility] ([id number])[address] [address] Color (U) YELLOW Normal YELLOW [facility] Comment on above: Performed By: #### U A ####[facility] ([id number])[address], [address] [place] [address] Glucose Ql (U) Negative Normal NEG [facility] Comment on above: Performed By: #### U A ####[facility] ([id number])[address], [address] [place] [address] Ketones Ql (U) Negative Normal NEG [facility] Comment on above: Performed By: #### U A ####[facility] ([id number])[address], [address] [place] [address] Leukocyte esterase Test strip Ql (U) Large Abnormal NEG [facility] Comment on above: Performed By: #### U A ####[facility] ([id number])[address] [address] [place] [address] MUCOUS PRESENT Abnormal NONE [facility] Comment on above: Performed By: #### U A ####[facility] ([id number])[address] [address] [place] [address] Nitrite Ql (U) Positive Abnormal NEG [facility] Comment on above: Performed By: #### U A ####[facility] ([id number])[address] [address] [place] [address] pH (U) 6.0 [pH] Normal 5.0-8.5 [facility] Comment on above: Performed By: #### U A ####[facility] ([id number])[address] [address] [place] [address] Protein Ql (U) Trace Abnormal NEG [facility] Comment on above: Performed By: #### U A ####[facility] ([id number])[address] [address] R.B.CELLS 18 /hpf High 0-5 [facility] Comment on above: Performed By: #### U A ####[facility] ([id number])[address] [address] [place] [address] Specific gravity (U) [Rel density] 1.013 Normal 1.003-1.035 [facility] Comment on above: Performed By: #### U A ####[facility] ([id number])[address] [address] SQUAMOUS EPITHELIUM 5 /hpf Normal 0-5 [facility] Comment on above: Performed By: #### U A ####[facility] ([id number])[address] [address] [place] [address] TURBIDITY HAZY Abnormal CLEAR [facility] Comment on above: Performed By: #### U A ####[facility] ([id number])[address] [address] [place] [address] Urobilinogen (U) [Mass/Vol] mg/dL Normal <1.1 [facility] Comment on above: Performed By: #### U A ####[facility] ([id number])[address] [address] [place] [address] W.B.CELLS >720 High 0-5 [facility] Comment on above: Performed By: #### U A ####[facility] ([id number])[address] [address] [place] [address] WBC CLUMPS RARE Abnormal NONE [facility] Comment on above: Performed By: #### U A ####[facility] ([id number])[address] [facility] [address] [place] [address] US PELVIC WITH TRANSVAGINALo n 04-04-2024 US PELVIC WITH TRANSVAGINAL Normal [facility] Urinalysis macro (dipstick) panel (U)on 04-02-2024 Bilirubin, UA Negative Negative - 4(70) +++ mg/dL [facility] Blood, UA Negative Negative - 50 Lucas/mcL [facility] Clarity, UA Clear [facility] Color, UA Yellow [facility] Glucose, UA Negative Negative - 1999(110) ++++ mg/dL [facility] Interpretation and review of laboratory results Abnormal [facility] Ketones, UA Negative Negative - 160(16) ++++ mg/dL [facility] Leukocytes, UA Negative Negative - 500+++ Julian/mcL [facility] Nitrite, UA Negative Negative - Positive [facility] pH, UA 6 5 - 9 [facility] Protein, UA Negative Negative - 1999(20) ++++ mg/dL [facility] Spec Grav, UA 1.02 1 - 1.03 [facility] care Urobilinogen, UA 1.0 0.2 - 12 mg/dL [facility] 36on 02-11-2024 36 I communicated with patient regarding pruritic rash Upper arm, she feels it's an insect bite . No new lesions. I will place orders to r/o syphilis and she will call her PCP today to discuss concerns; she will update provider at clinic. Can you please fax labs (RPR) to [facility]? Thanks. [facility] 36 Pt called asking about rash on her upper body and arms x 1 week +itching. Recently admitted to the hospital for neck and pain issues was told there they were hives and to take benadryl, the patient does not have any. She has taken zyrtec but it has not helped. She also states it comes and goes. Please advise. [facility] Orders Onlyon 02-11-2024 Orders Only [id number] Blanca Rudolph 1990 F Date Provider Department Center 02/11/2024 ORIN VERNON [facility] IN[facility] Ena [facility] Family History Problem Relation Age of Onset Hypertension Mother Hypertension Mother's Sister Crohn's disease Mother's Sister Hypertension Maternal Grandmother Breast cancer Maternal Grandmother Kidney disease Other Migraines Other Family Status - Relation Status Age at Mother Mother's Sister Maternal Grandmother Other Normal [facility] Reagin Ab RPR (S) [Titer]on 02-11-2024 RPR TITER, SERUM SEE COMMENTS 02/14/2024 10:[address] [facility] Comment on above: Result Comment: NOTE Test Result Flag Unit RefValue --------RPR Titer,S 1:4 A Negative Patients being monitored for response to therapy; a 4-fold or greater decrease in RPR titers between pre- and post-treatment samples indicates response to therapy. Patients evaluated for congenital syphilis: a 4-fold or higher RPR difference between and maternal RPR titers suggests congenital syphilis. For additional information on interpretation of the syphilis reverse algorithm and results, see: [email or web address] Test Performed by: [place] [address] Wheelchair Van Operator First Responder: Bulmaro Bull Ph.D.; CLIA# [id number] Performed By: #### 2 0507-0, 61108-4 ####[facility] ([id number])[address] [place] [address] Reagin Ab RPR Ql (S)on 02-10 RPR SCREEN RESPONSE TO THERAPY, SERUM Positive Abnormal Negative [facility] Comment on above: Result Comment: NOTE Specimen reflexed to determine RPR titer.For additional information on interpretation of thesyphilis reverse algorithm and results, see:[email or web address] Performed by:[facility] [id number] Director: Bulmaro Bull Ph.D.; CLIA# [id number] Performed By: #### 2 0507-0, 82918-2 ####[facility] ([id number])[address] [place] [address] APTTon 02-05-2024 aPTT Coag (PPP) [Time] 30 s [facility] Aquaporin 4 water channel Ig G Ql (CSF)on 02-05-2024 NMO/AQP4 FACS, CSF Negative Normal Negative [facility] Comment on above: Result Comment: NOTE Aquaporin-4 antibody testing is more sensitive in serum than in spinal fluid. Recommend serum testing now if not completed, and repeating in 6 months if clinical suspicion is high. Negative result can occur in the setting of immunosuppression. ADDITIONAL INFORMATION This test was developed and its performance characteristics determined by [facility] in a manner consistent with CLIA requirements. This test has not been cleared or approved by the U.S. Food and Drug Administration. Test Performed by: [facility] [place] [address] Wheelchair Van Operator First Responder: Bulmaro Bull Ph.D.; CLIA# [id number] CSF CULTUREon 02-05-2024 Bacteria identified Cx Nom (CSF) GRAM STAIN NO WHITE BLOOD CELLS PRESENT ON CONCENTRATED SMEAR NO ORGANISMS SEEN CULTURE RESULTS NO GROWTH 5 DAYS Normal [facility] Comment on above: Performed By: #### C MP, 1987-5, CBCA, 4485-9, 4498-2, 04719-2 #### [facility] ([id number]) [address] [place] [address] CSF spinal fluid cell counto n 02-05-2024 Clarity (CSF) CLEAR [facility] Color (CSF) COLORLESS [facility] Color (Spun CSF) COLORLESS [facility] Differential panel (Dial fld) NUCLEATED CELLS <5/uL; DIFF NOT TESTED [facility] Nucleated cells Manual cnt (CSF) [#/Vol] 0 10*3/uL 0 - 5 /uL [facility] RBC Manual cnt (CSF) [#/Vol] 1 /uL 0 - 1 /uL [facility] Csf total proteinon 02-05-20 Protein (CSF) [Mass/Vol] 20 mg/dL 15 - 45 mg/dL [facility] Glucose (CSF) [Mass/Vol]on 1 CSF GLUCOSE 53 mg/dL Normal 40-70 [facility] Comment on above: Performed By: #### C MP, 1986-, CBCA, 4485-9, 4498-2, 35585-2 #### [facility] ([id number]) [address] [place] [address] Glucose, CSFon 02-05-2024 Glucose (CSF) [Mass/Vol] 53 mg/dL 40 - 70 mg/dL [facility] Guidance for puncture of Lum bar spineon 02-05-2024 Ari Youngblood MD - 02/05/2024 Pre-procedure diagnosis: See history below Post-procedure diagnosis: Same as above Assistants/resident: See the technologist's notes above Consent/pre-procedure evaluation: See below. [facility] protocol timeout verification performed. Estimated blood loss: Less than 10 mL Procedure/complicatio ns: See below Radiation dosage measurements: See below and see technologist's notes above Conscious sedation: If conscious sedation was administered, preprocedure evaluation for conscious sedation was performed and documented. History: Needs CSF. Headaches. Visual problems. MR interpretation was suspicious for idiopathic intracranial hypertension Procedure: after explanation of the procedure, indications, benefits, risks, and alternatives to fluoroscopically-guid ed lumbar puncture to the patient, the patient gave consent. The risks of the procedure included bleeding, infection, allergic reaction, nerve damage, pain, and headache requiring epidural blood patch. The back was prepped and draped using sterile barrier technique. 1% xylocaine was given for local anesthesia. 1 digital images, 5 mGy air kerma radiation, and 0.1 minutes of fluoroscopy time were utilized. After placement of a 20-gauge needle into the lumbar subarachnoid space, 16 ml of clear, colorless CSF were collected and sent for the indicated studies. Digital spot radiograph was obtained. 20 cm water was the opening pressure. There was no immediate complication from the procedure Impression: fluoroscopically-guid ed lumbar puncture without immediate complication. Finalized by Alphonso Youngblood MD on 02/05/2024 10:27 AM [facility] Radiology Study observation (narrative) [facility] Guidance for puncture of Lum bar spineOrdered By: Ari Youngblood on 02-05-2024 [facility] Work Phone: MENINGITIS PANELon Meningitis+Encephal itis pathogens DNA and RNA panel JOAN+non-probe (CSF) SPECIMEN SOURCE CEREBROSPINAL FLUID E COLI K1 Not detected (qualifier value) H INFLUENZAE Not detected (qualifier value) L MONOCYTOGENES Not detected (qualifier value) N MENINGITIDIS Not detected (qualifier value) S AGALACTIAE Not detected (qualifier value) S PNEUMONIAE Not detected (qualifier value) CMV Not detected (qualifier value) ENTEROVIRUS Not detected (qualifier value) HERPES SIMPLEX 1 Not detected (qualifier value) HERPES SIMPLEX 2 Not detected (qualifier value) HERPES VIRUS 6 Not detected (qualifier value) PARECHOVIRUS Not detected (qualifier value) VARICELLA ZOSTER Not detected (qualifier value) C NEOFORMANS Not detected (qualifier value) Normal NDET [facility] Comment on above: Performed By: #### C MP, 1988-, CBCA, 4485-9, 4498-2, 00283-4 #### [facility] ([id number]) [address] [place] [address] Meningitis+Encephalitis path ogens DNA and RNA panel JOAN+non-probe (CSF)on 02-05-2024 C. gattii+neoformans DNA JOAN+non-probe Ql (CSF) Not detected Not Detected^Not Detected [facility] CMV DNA JOAN+non-probe Ql (CSF) Not detected Not Detected^Not Detected [facility] E. coli K1 DNA JOAN+non-probe Ql (CSF) Not detected Not Detected^Not Detected [facility] Enterovirus RNA JOAN+non-probe Ql (CSF) Not detected Not Detected^Not Detected [facility] H. influenzae DNA JOAN+non-probe Ql (CSF) Not detected Not Detected^Not Detected [facility] HHV 6 DNA JOAN+non-probe Ql (CSF) Not detected Not Detected^Not Detected [facility] HSV 1 DNA JOAN+non-probe Ql (CSF) Not detected Not Detected^Not Detected [facility] HSV 2 DNA JOAN+non-probe Ql (CSF) Not detected Not Detected^Not Detected [facility] L. monocytogenes DNA JOAN+non-probe Ql (CSF) Not detected Not Detected^Not Detected [facility] N. meningitidis DNA JOAN+non-probe Ql (CSF) Not detected Not Detected^Not Detected [facility] Parechovirus A RNA JOAN+non-probe Ql (CSF) Not detected Not Detected^Not Detected [facility] S. agalactiae DNA JOAN+non-probe Ql (CSF) Not detected Not Detected^Not Detected [facility] S. pneumoniae DNA JOAN+non-probe Ql (CSF) Not detected Not Detected^Not Detected [facility] Specimen source Nom (Body fld) CEREBROSPINAL FLUID [facility] VZV DNA JOAN+non-probe Ql (CSF) Not detected Not Detected^Not Detected [facility] No Panel Informationon 02-04 [place] OLIGOCLONAL BANDINGon 2023 CSF BANDS OLIG 0 bands Normal [facility] CSF OLIG BANDS INTERP 0 bands Normal <2 [facility] Comment on above: Result Comment: NOTE The oligoclonal band assay detected no unique IgG bands in the CSF. This is a negative result. Test Performed by: [facility] [address] [place] [address] Wheelchair Van Operator First Responder: Bulmaro Bull Ph.D.; CLIA# [id number] SERUM BANDS OLIG [address] [facility] Protein (CSF) [Mass/Vol]on 1 CSF TOTAL PROTEIN 20 mg/dL Normal 15-45 [facility] Comment on above: Performed By: #### C JUNAID, 1986-08, CBCA, 4485-9, 4498-2, 65995-3 #### [facility] ([id number]) [address], [address] [place] [address] SPINAL FLUID CELL CTon 02-04 CSF CLARITY CLEAR Normal [facility] Comment on above: Performed By: #### Nataliia QUIROGA, 1986-08, CBCA, 4485-9, 4498-2, 91491-5 #### [facility] ([id number]) [address], [address] [place] [address] CSF COLOR COLORLESS Normal [facility] Comment on above: Performed By: #### Nataliia QUIROGA, 1986-08, CBCA, 4485-9, 4498-2, 63526-2 #### [facility] ([id number]) [address], [address] [place] [address] CSF NUCLEATED CELLS 0 /uL Normal 0-5 [facility] Comment on above: Performed By: #### Nataliia QUIROGA, 1986-08, CBCA, 4485-9, 4498-2, 35509-2 #### [facility] ([id number]) [address], [address] [place] [address] CSF RBC 1 /uL Normal 0-1 [facility] Comment on above: Performed By: #### Nataliia QUIROGA, 1986-08, CBCA, 4485-9, 4498-2, 61581-5 #### [facility] ([id number]) [address], [address] [place] [address] CSF SUPERNATANT COLORLESS Normal [facility] Comment on above: Performed By: #### Nataliia QUIROGA, 1986-08, CBCA, 4485-9, 4498-2, 99218-8 #### [facility] ([id number]) [address], [address] [place] [address] SF DIFF NUCLEATED CELLS <5/uL; DIFF NOT TESTED Normal [facility] Comment on above: Performed By: #### C JUNAID, 1986-08, CBCA, 4485-9, 4498-2, 01296-9 #### [facility] ([id number]) [address], [address] [place] [address] aPTT Coag (PPP) [Time]on [place] aPTT Coag (Bld) [Time] 30 s Normal 26-37 [facility] Comment on above: Performed By: #### C JUNAID, 1986-08, CBCA, 4485-9, 4498-2, 93178-1 #### [facility] ([id number]) [address] [place] [address] APTTon 02-04-2024 aPTT Coag (PPP) [Time] 61 s High [facility] Aquaporin 4 water channel Ig G Qlon 02-04-2024 NMO/AQP4 FACS, Serum Negative Normal Negative [facility] Comment on above: Result Comment: NOTE Recommend repeat testing in 6 months if clinical suspicion is high. Negative result can occur in the setting of immunosuppression. ADDITIONAL INFORMATION This test was developed and its performance characteristics determined by [facility] in a manner consistent with CLIA requirements. This test has not been cleared or approved by the U.S. Food and Drug Administration. Test Performed by: [facility] - [address] [address] Wheelchair Van Operator First Responder: Bulmaro Bull Ph.D.; CLIA# [id number] HEMOGLOBINon 02-04-2024 Hemoglobin (Bld) [Mass/Vol] 11.9 g/dL Normal 11.7-15.5 [facility] Comment on above: Performed By: #### C JUNAID, 1986-08, CBCA, 4485-9, 4498-2, 59267-4 #### [facility] ([id number]) [address] [place] [address] Hemoglobinon 02-04-2024 Hemoglobin (Bld) [Mass/Vol] 11.9 g/dL 11.7 - 15.5 g/dL [facility] IgG synthesis rate Calc (S+C SF) [Mass/Time]on 02-04-2024 CSF IgG Index Profile SEE COMMENTS 02/07/2024 08:13 AM Abnormal [facility] Comment on above: Result Comment: NOTE Test Result Flag Unit RefValue CSF IgG Index Profile IgG Index, CSF 0.55 <=0.85 IgG, CSF 0.9 mg/dL <=8.1 Albumin, CSF 8.5 mg/dL <=27.0 IgG/Albumin, CSF 0.11 <=0.21 Synthesis Rate, CSF 0.00 mg/24 h <=12 IgG, S 736 L mg/dL 767 - 1590 IgG/Albumin, S 0.20 <=0.40 Albumin, S 3600 mg/dL 3500 - 5000 Test Performed by: [facility][Note 3] [address] [place] [address] Wheelchair Van Operator First Responder: Bulmaro Bull Ph.D.; CLIA# [id number] Test Performed by: [facility] [place] [address] Wheelchair Van Operator First Responder: Bulmaro Bull Ph.D.; CLIA# [id number] MYELIN OLIGODENDROCYTE GLYCO PROTEIN (MOG-IgG1)on 02-04-2024 Myelin Oligodendrocyte Glycoprotein (MOG-IgG1) Negative Normal Negative [facility] Comment on above: Result Comment: NOTE No informative autoantibodies were detected in this evaluation. A negative result does not preclude a diagnosis of an inflammatory [employer] demyelinating disorder. ADDITIONAL INFORMATION This test was developed and its performance characteristics determined by [facility] in a manner consistent with CLIA requirements. This test has not been cleared or approved by the U.S. Food and Drug Administration. Test Performed by: [facility] - [address] [address] Wheelchair Van Operator First Responder: Bulmaro Bull Ph.D.; CLIA# [id number] No Panel Informationon 02-03 [facility] PLATELET COUNT AND MPVon Platelet mean volume (Bld) [Entitic vol] 7.1 fL Normal 7-12 [facility] Comment on above: Performed By: #### C JUNAID, 1986-08, CBCA, 4485-9, 4498-2, 40038-8 #### [facility] ([id number]) [address], [address] [place] [address] Platelets (Bld) [#/Vol] 271 10*3/uL Normal 150-450 [facility] Comment on above: Performed By: #### C JUNAID, 1986-08, CBCA, 4485-9, 4498-2, 85387-5 #### [facility] ([id number]) [address], [address] [place] [address] Platelet counton 02-04-2024 Platelet mean volume (Bld) [Entitic vol] 7.1 fL 7 - 12 fL [facility] Platelets (Bld) [#/Vol] 271 10*3/uL [facility] aPTT Coag (PPP) [Time]on Interpretation and review of laboratory results Abnormal [facility] aPTT Coag (Bld) [Time] 61 s High 26-37 [facility] Comment on above: Performed By: #### C JUNAID, 1986-08, CBCA, 4485-9, 4498-2, 70283-2 #### [facility] ([id number]) [address], [address] [place] [address] APTTon 02-03-2024 aPTT Coag (PPP) [Time] 50 s High [facility] BASIC METABOLIC PANLon 02-02 Anion gap [Moles/Vol] 10 mmol/L Normal 5-15 [facility] Comment on above: Performed By: #### C JUNAID, 1986-08, CBCA, 4485-9, 4498-2, 80148-1 #### [facility] ([id number]) [address], [address] [place] [address] Calcium [Mass/Vol] 7.7 mg/dL Low 8.5-10.5 [facility] Comment on above: Performed By: #### C JUNAID, 1986-08, CBCA, 4485-9, 4498-2, 03290-4 #### [facility] ([id number]) [address], [address] [place] [address] Chloride [Moles/Vol] 103 mmol/L Normal 98-109 [facility] Comment on above: Performed By: #### C JUNAID, 1986-08, CBCA, 4485-9, 4498-2, 32399-8 #### [facility] ([id number]) [address], [address] [place] [address] CO2 [Moles/Vol] 24 mmol/L Normal 22-32 [facility] Comment on above: Performed By: #### Nataliia QUIROGA, 1986-08, CBCA, 4485-9, 4498-2, 22851-3 #### [facility] ([id number]) [address], [address] [place] [address] Creatinine [Mass/Vol] 1.30 mg/dL High 0.40-1.00 [facility] Comment on above: Result Comment: METH OD TRACEABLE TO IDMS STANDARD Performed By: #### C JUNAID, 1986-08, CBCA, 4485-9, 4498-2, 91510-4 #### [facility] ([id number]) [address], [address] [place] [address] GFR/1.73 sq M.predicted among non-blacks MDRD (S/P/Bld) [Vol rate/Area] 56 mL/min/{1.73_m2} Low >59 [facility] Comment on above: Result Comment: Reported eGFR is based on the CKD-EPI 2020 equation that does not use a race coefficient. Performed By: #### Nataliia QUIROGA, 1986-08, CBCA, 4485-9, 4498-2, 48141-9 #### [facility] ([id number]) [address] [place] [address] Glucose [Mass/Vol] 79 mg/dL Normal 65-99 [facility] Comment on above: Performed By: #### Nataliia QUIROGA, 1986-08, CBCA, 4485-9, 4498-2, 77468-4 #### [facility] ([id number]) [address] [place] [address] Potassium [Moles/Vol] 3.6 mmol/L Normal 3.5-5.0 [facility] Comment on above: Performed By: #### Nataliia QUIROGA, 1986-08, CBCA, 4485-9, 4498-2, 64145-2 #### [facility] ([id number]) [address] [place] [address] Sodium [Moles/Vol] 137 mmol/L Normal 134-146 [facility] Comment on above: Performed By: #### Nataliia QUIROGA, 1986-08, CBCA, 4485-9, 4498-2, 66039-0 #### [facility] ([id number]) [address] [place] [address] Urea nitrogen [Mass/Vol] 30 mg/dL High 5-23 [facility] Comment on above: Performed By: #### Nataliia QUIROGA, 1986-08, CBCA, 4485-9, 4498-2, 44078-1 #### [facility] ([id number]) [address] [place] [address] Basic Metabolic Panelon 10-0 Anion gap [Moles/Vol] 10 mmol/L 5 - 15 mmol/L [facility] Calcium [Mass/Vol] 7.7 mg/dL Low 8.5 - 10. 5 mg/dL [facility] Chloride [Moles/Vol] 103 mmol/L 98 - 109 mmol/L [facility] CO2 [Moles/Vol] 24 mmol/L 22 - 32 mmol/L [facility] Creatinine [Mass/Vol] 1.30 mg/dL High 0.40 - 1.00 mg/dL [facility] Comment on above: METHOD TRACEABLE TO IDMA STANDARD eGFR (CKD-EPI)non-race dependent 56 Low - PINF [facility] Comment on above: Reported eGFR is based on the CKD-EPI 2020 equation that does not use a race coefficient. Glucose [Mass/Vol] 79 mg/dL 65 - 99 mg/dL [facility] Interpretation and review of laboratory results Abnormal [facility] Potassium [Moles/Vol] 3.6 mmol/L 3.5 - 5.0 mmol/L [facility] Sodium [Moles/Vol] 137 mmol/L 134 - 146 mmol/L [facility] Urea nitrogen [Mass/Vol] 30 mg/dL High 5 - 23 mg/dL [facility] CBC AND AUTO DIFFon 02-03-20 ABSOLUTE BASOPHIL 0.1 X10E9/L Normal 0.0-0.2 [facility] Comment on above: Performed By: #### C JUNAID, 1986-08, CBCA, 4485-9, 4498-2, 48395-6 #### [facility] ([id number]) [address], [address] [place] [address] ABSOLUTE NEUTROPHIL 4.0 X10E9/L Normal 1.5-6.6 [facility] Comment on above: Performed By: #### C JUNAID, 1986-08, CBCA, 4485-9, 4498-2, 80488-6 #### [facility] ([id number]) [address], [address] [place] [address] Basophils/100 WBC (Bld) 1.5 % Normal [facility] Comment on above: Performed By: #### C JUNAID, 1986-08, CBCA, 4485-9, 4498-2, 33350-8 #### [facility] ([id number]) [address] [place] [address] Eosinophils (Bld) [#/Vol] 0.0 10*3/uL Normal 0.0-0.4 [facility] Comment on above: Performed By: #### C JUNAID, 1986-08, CBCA, 4485-9, 4498-2, 46789-8 #### [facility] ([id number]) [address], [address] [place] [address] Eosinophils/100 WBC (Bld) 0.3 % Normal [facility] Comment on above: Performed By: #### Nataliia QUIROGA, 1986-08, CBCA, 448-9, 4498-2, 30515-5 #### [facility] ([id number]) [address] [place] [address] Erythrocyte distribution width (RBC) [Ratio] 14.3 % Normal 11.5-15.0 [facility] Comment on above: Performed By: #### Nataliia QUIROGA, 1986-08, CBCA, 4485-9, 4498-2, 97350-0 #### [facility] ([id number]) [address] [place] [address] Hematocrit (Bld) [Volume fraction] 32.6 % Low 35-47 [facility] Comment on above: Performed By: #### Nataliia QUIROGA, 1986-08, CBCA, 4485-9, 4498-2, 02997-9 #### [facility] ([id number]) [address] [place] [address] Hemoglobin (Bld) [Mass/Vol] 11.4 g/dL Low 11.7-15.5 [facility] Comment on above: Performed By: #### C JUNAID, 1986-08, CBCA, 4485-9, 4498-2, 32093-2 #### [facility] ([id number]) [address], [address] [place] [address] Lymphocytes (Bld) [#/Vol] 2.1 10*3/uL Normal 1.0-3.5 [facility] Comment on above: Performed By: #### Nataliia QUIROGA, 1986-08, CBCA, 4489, 4498-2, 66119-8 #### [facility] ([id number]) [address] [facility] [address] [place] [address] Lymphocytes/100 WBC (Bld) 31.1 % Normal [facility] Comment on above: Performed By: #### Nataliia QUIROGA, 1986-08, CBCA, 4489, 4498-2, 28931-9 #### [facility] ([id number]) [address] [facility] [address] [place] [address] MCH (RBC) [Entitic mass] 31.3 pg Normal 27-34 [facility] Comment on above: Performed By: #### Nataliia QUIROGA, 1986-08, CBCA, 448-9, 4498-2, 35564-1 #### [facility] ([id number]) [address] [place] [address] MCHC (RBC) [Mass/Vol] 34.9 g/dL Normal 32-36 [facility] Comment on above: Performed By: #### Nataliia QUIROGA, 1986-08, CBCA, 4485-9, 4498-2, 09066-2 #### [facility] ([id number]) [address] [place] [address] MCV (RBC) [Entitic vol] 90 fL Normal 80-100 [facility] Comment on above: Performed By: #### C JUNAID, 1986-08, CBCA, 4485-9, 4498-2, 09217-4 #### [facility] ([id number]) [address] [place] [address] Monocytes (Bld) [#/Vol] 0.6 10*3/uL Normal 0-0.9 [facility] Comment on above: Performed By: #### C JUNAID, 1986-08, CBCA, 4485-9, 4498-2, 06975-5 #### [facility] ([id number]) [address] [facility] [address] [place] [address] Monocytes/100 WBC (Bld) 8.1 % Normal [facility] Comment on above: Performed By: #### Nataliia QUIROGA, 1986-08, CBCA, 448-9, 4498-2, 14283-9 #### [facility] ([id number]) [address] [place] [address] Neutrophils/100 WBC (Bld) 59.0 % Normal [facility] Comment on above: Performed By: #### C JUNAID, 1986-08, CBCA, 448-9, 4498-2, 83224-7 #### [facility] ([id number]) [address] [place] [address] Platelet mean volume (Bld) [Entitic vol] 7.4 fL Normal 7-12 [facility] Comment on above: Performed By: #### Nataliia QUIROGA, 1986-08, CBCA, 4485-9, 4498-2, 27013-8 #### [facility] ([id number]) [address] [place] [address] Platelets (Bld) [#/Vol] 262 10*3/uL Normal 150-450 [facility] Comment on above: Performed By: #### C JUNAID, 1986-08, CBCA, 4485-9, 4498-2, 90234-2 #### [facility] ([id number]) [address] [place] [id number] RBC COUNT 3.64 X10E12/L Low 3.80-5.20 [facility] Comment on above: Performed By: #### Nataliia QUIROGA, 1986-08, CBCA, 4485-9, 4498-2, 91010-1 #### [facility] ([id number]) [address] [place] [address] WBC (Bld) [#/Vol] 6.9 10*3/uL Normal 4.0-11.0 [facility] Comment on above: Performed By: #### Nataliia QUIROGA, 1986-08, CBCA, 4485-9, 4498-2, 93160-4 #### [facility] ([id number]) [address] [place] [address] CBC auto differentialon 10-0 -2023 Basophils (Bld) [#/Vol] 0.1 10*3/uL [facility] Basophils/100 WBC (Bld) 1.5 % [facility] Eosinophils (Bld) [#/Vol] 0.0 10*3/uL [facility] Eosinophils/100 WBC (Bld) 0.3 % [facility] Erythrocyte distribution width (RBC) [Ratio] 14.3 % 11.5 - 15.0 % [facility] Hematocrit (Bld) [Volume fraction] 32.6 % Low 35 - 47 % [facility] Hemoglobin (Bld) [Mass/Vol] 11.4 g/dL Low 11.7 - 15.5 g/dL [facility] Interpretation and review of laboratory results Abnormal [facility] Lymphocytes (Bld) [#/Vol] 2.1 10*3/uL [facility] Lymphocytes/100 WBC (Bld) 31.1 % [facility] MCH (RBC) [Entitic mass] 31.3 pg 27 - 34 pg [facility] MCHC (RBC) [Mass/Vol] 34.9 g/dL 32 - 36 g/dL [facility] MCV (RBC) [Entitic vol] 90 fL 80 - 100 fL [facility] Monocytes (Bld) [#/Vol] 0.6 10*3/uL [facility] Monocytes/100 WBC (Bld) 8.1 % [facility] Neutrophils (Bld) [#/Vol] 4.0 10*3/uL [facility] Neutrophils/100 WBC (Bld) 59.0 % [facility] Platelet mean volume (Bld) [Entitic vol] 7.4 fL 7 - 12 fL [facility] Platelets (Bld) [#/Vol] 262 10*3/uL [facility] RBC (Bld) [#/Vol] 3.64 10*6/uL Low [facility] WBC corrected for nucl RBC Auto (Bld) [#/Vol] 6.9 [facility] MR CERVICAL SPINE W WO CONTo n 02-03-2024 MR CERVICAL SPINE W WO CONT MR CERVICAL SPINE W WO CONT STUDY: MR CERVICAL SPINE W WO CONT HISTORY: Myelopathy, acute, cervical spine TECHNIQUE: * Routine multiplanar multisequence MR imaging of the cervical spine was performed with and without intravenous contrast. FINDINGS: Vertebral body heights and alignment are maintained. Minimal intervertebral disc space narrowing at C4-C5 and C5-C6, not significant for age. No suspicious marrow signal changes. Visualized posterior fossa and cervical cord signal are broadly unremarkable by technique. No pathologic enhancement. C2-C3: Slight left paracentral disc osteophyte complex with mild left facet arthropathy results in mild left neuroforaminal narrowing. No significant spinal canal narrowing. C3-C4: Mild facet arthropathy with mild left neuroforaminal narrowing. Minimal spinal canal narrowing. C4-C5: Minimal broad-based disc osteophyte complex, mild facet arthropathy results in minimal right and xmjn-sn-qnzqxqss left neuroforaminal narrowing. Mild spinal canal narrowing. C5-C6: Mild broad-based disc osteophyte complex, facet arthropathy results in mild left neuroforaminal narrowing. Mild spinal canal narrowing. C6-C7: Mild bilateral neuroforaminal narrowing. No significant spinal canal narrowing. C7-T1: No significant spinal canal or neural foraminal narrowing. IMPRESSION: * Minimal degenerative changes without high-grade spinal canal or neuroforaminal narrowing. * Degenerative changes are most prominent at C4-C5 where there is minimal right and ppgd-cv-gwcczvvn left neuroforaminal narrowing as well as mild spinal canal narrowing. * No pathologic enhancement or cervical cord signal abnormalities. Finalized by Braxton Pozo on 02/03/2024 3:52 PM Normal [facility] MR Cervical spine WO and W c ontrast Mary 02-03-2024 STUDY: MR CERVICAL SPINE W WO CONT HISTORY: Myelopathy, acute, cervical spine TECHNIQUE: * Routine multiplanar multisequence MR imaging of the cervical spine was performed with and without intravenous contrast. FINDINGS: Vertebral body heights and alignment are maintained. Minimal intervertebral disc space narrowing at C4-C5 and C5-C6, not significant for age. No suspicious marrow signal changes. Visualized posterior fossa and cervical cord signal are broadly unremarkable by technique. No pathologic enhancement. C2-C3: Slight left paracentral disc osteophyte complex with mild left facet arthropathy results in mild left neuroforaminal narrowing. No significant spinal canal narrowing. C3-C4: Mild facet arthropathy with mild left neuroforaminal narrowing. Minimal spinal canal narrowing. C4-C5: Minimal broad-based disc osteophyte complex, mild facet arthropathy results in minimal right and iguk-iy-bokqneth left neuroforaminal narrowing. Mild spinal canal narrowing. C5-C6: Mild broad-based disc osteophyte complex, facet arthropathy results in mild left neuroforaminal narrowing. Mild spinal canal narrowing. C6-C7: Mild bilateral neuroforaminal narrowing. No significant spinal canal narrowing. C7-T1: No significant spinal canal or neural foraminal narrowing. IMPRESSION: * Minimal degenerative changes without high-grade spinal canal or neuroforaminal narrowing. * Degenerative changes are most prominent at C4-C5 where there is minimal right and otca-tw-waulvwfn left neuroforaminal narrowing as well as mild spinal canal narrowing. * No pathologic enhancement or cervical cord signal abnormalities. Finalized by Braxton Pozo on 02/03/2024 3:52 PM Braxton Waters MD - 02/03/2024 STUDY: MR CERVICAL SPINE W WO CONT HISTORY: Myelopathy, acute, cervical spine TECHNIQUE: * Routine multiplanar multisequence MR imaging of the cervical spine was performed with and without intravenous contrast. FINDINGS: Vertebral body heights and alignment are maintained. Minimal intervertebral disc space narrowing at C4-C5 and C5-C6, not significant for age. No suspicious marrow signal changes. Visualized posterior fossa and cervical cord signal are broadly unremarkable by technique. No pathologic enhancement. C2-C3: Slight left paracentral disc osteophyte complex with mild left facet arthropathy results in mild left neuroforaminal narrowing. No significant spinal canal narrowing. C3-C4: Mild facet arthropathy with mild left neuroforaminal narrowing. Minimal spinal canal narrowing. C4-C5: Minimal broad-based disc osteophyte complex, mild facet arthropathy results in minimal right and vdas-ra-qlaloaug left neuroforaminal narrowing. Mild spinal canal narrowing. C5-C6: Mild broad-based disc osteophyte complex, facet arthropathy results in mild left neuroforaminal narrowing. Mild spinal canal narrowing. C6-C7: Mild bilateral neuroforaminal narrowing. No significant spinal canal narrowing. C7-T1: No significant spinal canal or neural foraminal narrowing. IMPRESSION: * Minimal degenerative changes without high-grade spinal canal or neuroforaminal narrowing. * Degenerative changes are most prominent at C4-C5 where there is minimal right and qdct-of-twkzbzie left neuroforaminal narrowing as well as mild spinal canal narrowing. * No pathologic enhancement or cervical cord signal abnormalities. Finalized by Braxton Pozo on 02/03/2024 3:52 PM [facility] [employer] Radiology Study observation (narrative) [facility] MR Cervical spine WO and W c ontrast IVOrdered By: Braxton Pozo on 02-03-2024 [id number] Work Phone: MR MRA HEAD WO CONTon 2023 MR MRA HEAD WO CONT MR MRA HEAD WO CONT EXAM: MR MRA HEAD WO CONT CLINICAL INFORMATION: Facial paralysis/weakness (CN 7). TECHNIQUE: 3-D TOF MRA of the head was obtained. Source and 3-D MIP images of the MRA were reviewed. COMPARISON: CTA and CTV dated 01/31/2024 FINDINGS: The intracranial and supraclinoid portions of the internal carotid arteries are unremarkable. The anterior cerebral arteries are unremarkable. There is a patent anterior communicating artery. The middle cerebral arteries and their branches are unremarkable. The vertebral arteries join to form a normal diameter basilar artery. The posterior cerebral arteries are unremarkable. Both posterior communicating arteries are seen. Both superior cerebellar arteries are seen. There is no convincing evidence for an aneurysm or flow-limiting stenosis in the head. IMPRESSION: Normal MRA head. Finalized by Preston Garcia MD on 02/03/2024 1:17 PM Normal [facility] MRA Head vessels WO contrast on 02-03-2024 EXAM: MR MRA HEAD WO CONT CLINICAL INFORMATION: Facial paralysis/weakness (CN 7). TECHNIQUE: 3-D TOF MRA of the head was obtained. Source and 3-D MIP images of the MRA were reviewed. COMPARISON: CTA and CTV dated 01/31/2024 FINDINGS: The intracranial and supraclinoid portions of the internal carotid arteries are unremarkable. The anterior cerebral arteries are unremarkable. There is a patent anterior communicating artery. The middle cerebral arteries and their branches are unremarkable. The vertebral arteries join to form a normal diameter basilar artery. The posterior cerebral arteries are unremarkable. Both posterior communicating arteries are seen. Both superior cerebellar arteries are seen. There is no convincing evidence for an aneurysm or flow-limiting stenosis in the head. IMPRESSION: Normal MRA head. Finalized by Preston Garcia MD on 02/03/2024 1:17 PM [employer] Preston Garcia MD - 02/03/2024 EXAM: MR MRA HEAD WO CONT CLINICAL INFORMATION: Facial paralysis/weakness (CN 7). TECHNIQUE: 3-D TOF MRA of the head was obtained. Source and 3-D MIP images of the MRA were reviewed. COMPARISON: CTA and CTV dated 01/31/2024 FINDINGS: The intracranial and supraclinoid portions of the internal carotid arteries are unremarkable. The anterior cerebral arteries are unremarkable. There is a patent anterior communicating artery. The middle cerebral arteries and their branches are unremarkable. The vertebral arteries join to form a normal diameter basilar artery. The posterior cerebral arteries are unremarkable. Both posterior communicating arteries are seen. Both superior cerebellar arteries are seen. There is no convincing evidence for an aneurysm or flow-limiting stenosis in the head. IMPRESSION: Normal MRA head. Finalized by Preston Garcia MD on 02/03/2024 1:17 PM [facility] Radiology Study observation (narrative) [facility] MRA Head vessels WO contrast Ordered By: Preston Garcia on 02-03-2024 [facility] Work Phone: aPTT Coag (PPP) [Time]on Interpretation and review of laboratory results Abnormal [facility] aPTT Coag (Bld) [Time] 50 s High 26-37 [facility] Comment on above: Performed By: #### C JUNAID, 1986-08, CBCA, 4485-9, 4498-2, 80893-2 #### [facility] ([id number]) [address], [address] [place] [address] APTTon 02-02-2024 aPTT Coag (PPP) [Time] 54 s High [facility] aPTT Coag (PPP) [Time] 58 s High [facility] aPTT Coag (PPP) [Time] 41 s High [facility] BASIC METABOLIC PANLon 02-01 Anion gap [Moles/Vol] 9 mmol/L Normal 5-15 [facility] Comment on above: Performed By: #### C JUNAID, 1986-08, CBCA, 4485-9, 4498-2, 36105-2 #### [facility] ([id number]) [address], [address] [place] [address] Calcium [Mass/Vol] 8.2 mg/dL Low 8.5-10.5 [facility] Comment on above: Performed By: #### C JUNAID, 1986-08, CBCA, 4485-9, 4498-2, 46840-0 #### [facility] ([id number]) [address], [address] [place] [address] Chloride [Moles/Vol] 105 mmol/L Normal 98-109 [facility] Comment on above: Performed By: #### C JUNAID, 1986-08, CBCA, 4485-9, 4498-2, 30566-2 #### [facility] ([id number]) [address], [address] [place] [address] CO2 [Moles/Vol] 29 mmol/L Normal 22-32 [facility] Comment on above: Performed By: #### C JUNAID, 1986-08, CBCA, 4485-9, 4498-2, 56514-3 #### [facility] ([id number]) [address], [address] [place] [address] Creatinine [Mass/Vol] 1.47 mg/dL High 0.40-1.00 [facility] Comment on above: Result Comment: METH OD TRACEABLE TO IDMS STANDARD Performed By: #### C JUNAID, 1986-08, CBCA, 448-9, 4498-2, 64877-7 #### [facility] ([id number]) [address], [address] [place] [address] GFR/1.73 sq M.predicted among non-blacks MDRD (S/P/Bld) [Vol rate/Area] 48 mL/min/{1.73_m2} Low >59 [facility] Comment on above: Result Comment: Reported eGFR is based on the CKD-EPI 2020 equation that does not use a race coefficient. Performed By: #### Nataliia QUIROGA, 1986-08, CBCA, 4485-9, 4498-2, 16977-5 #### [facility] ([id number]) [address], [address] [place] [address] Glucose [Mass/Vol] 80 mg/dL Normal 65-99 [facility] Comment on above: Performed By: #### C JUNAID, 1986-08, CBCA, 4485-9, 4498-2, 88892-6 #### [facility] ([id number]) [address], [address] [place] [address] Potassium [Moles/Vol] 4.0 mmol/L Normal 3.5-5.0 [facility] Comment on above: Performed By: #### C JUNAID, 1986-08, CBCA, 4485-9, 4498-2, 84967-3 #### [facility] ([id number]) [address], [facility] [address] [place] [address] Sodium [Moles/Vol] 143 mmol/L Normal 134-146 [facility] Comment on above: Performed By: #### C JUNAID, 1986-08, CBCA, 4485-9, 4498-2, 63833-6 #### [facility] ([id number]) [address], [address] [address] Urea nitrogen [Mass/Vol] 32 mg/dL High 5-23 [facility] Comment on above: Performed By: #### Nataliia QUIROGA, 1986-08, CBCA, 4485-9, 4498-2, 80288-1 #### [facility] ([id number]) [address], [address] [address] Basic Metabolic Panelon 10-0 Anion gap [Moles/Vol] 9 mmol/L 5 - 15 mmol/L [facility] Calcium [Mass/Vol] 8.2 mg/dL Low 8.5 - 10. 5 mg/dL [facility] Chloride [Moles/Vol] 105 mmol/L 98 - 109 mmol/L [facility] CO2 [Moles/Vol] 29 mmol/L 22 - 32 mmol/L [facility] Creatinine [Mass/Vol] 1.47 mg/dL High 0.40 - 1.00 mg/dL [facility] Comment on above: METHOD TRACEABLE TO IDMS STANDARD eGFR (CKD-EPI)non-race dependent 48 Low - PINF [facility] Comment on above: Reported eGFR is based on the CKD-EPI 2020 equation that does not use a race coefficient. Glucose [Mass/Vol] 80 mg/dL 65 - 99 mg/dL [facility] Interpretation and review of laboratory results Abnormal [facility] Potassium [Moles/Vol] 4.0 mmol/L 3.5 - 5.0 mmol/L [facility] Sodium [Moles/Vol] 143 mmol/L 134 - 146 mmol/L [facility] Urea nitrogen [Mass/Vol] 32 mg/dL High 5 - 23 mg/dL [facility] CBC AND AUTO DIFFon 02-02-20 ABSOLUTE BASOPHIL 0.0 X10E9/L Normal 0.0-0.2 [facility] Comment on above: Performed By: #### C JUNAID, 1986-08, CBCA, 4485-9, 4498-2, 38286-4 #### [facility] ([id number]) [address], [address] [address] ABSOLUTE NEUTROPHIL 5.4 X10E9/L Normal 1.5-6.6 [facility] Comment on above: Performed By: #### Nataliia QUIROGA, 1986-08, CBCA, 4485-9, 4498-2, 28246-3 #### [facility] ([id number]) [address], [address] [address] Basophils/100 WBC (Bld) 0.1 % Normal [facility] Comment on above: Performed By: #### Nataliia QUIROGA, 1986-08, CBCA, 448-9, 4498-2, 21814-7 #### [facility] ([id number]) [address], [address] [place] [address] Eosinophils (Bld) [#/Vol] 0.0 10*3/uL Normal 0.0-0.4 [facility] Comment on above: Performed By: #### Nataliia QUIROGA, 1986-08, CBCA, 4485-9, 4498-2, 77197-6 #### [facility] ([id number]) [address], [address] [place] [address] Eosinophils/100 WBC (Bld) 0.1 % Normal [facility] Comment on above: Performed By: #### Nataliia QUIROGA, 1986-08, CBCA, 4485-9, 4498-2, 64344-4 #### [facility] ([id number]) [address], [address] [place] [address] Erythrocyte distribution width (RBC) [Ratio] 14.4 % Normal 11.5-15.0 [facility] Comment on above: Performed By: #### Nataliia QUIROGA, 1986-08, CBCA, 4485-9, 4498-2, 86069-9 #### [facility] ([id number]) [address], [address] [place] [address] Hematocrit (Bld) [Volume fraction] 33.8 % Low 35-47 [facility] Comment on above: Performed By: #### Nataliia QUIROGA, 1986-08, CBCA, 448-9, 4498-2, 60703-5 #### [facility] ([id number]) [address], [address] [place] [address] Hemoglobin (Bld) [Mass/Vol] 11.7 g/dL Normal 11.7-15.5 [facility] Comment on above: Performed By: #### Nataliia QUIROGA, 1986-08, CBCA, 4485-9, 4498-2, 36098-3 #### [facility] ([id number]) [address], [address] [place] [address] Lymphocytes (Bld) [#/Vol] 1.8 10*3/uL Normal 1.0-3.5 [facility] Comment on above: Performed By: #### Nataliia QUIROGA, 1986-08, CBCA, 4485-9, 4498-2, 55606-7 #### [facility] ([id number]) [address], [address] [place] [address] Lymphocytes/100 WBC (Bld) 23.6 % Normal [facility] Comment on above: Performed By: #### C JUNAID, 1986-08, CBCA, 4485-9, 4498-2, 22494-1 #### [facility] ([id number]) [address], [address] [place] [address] MCH (RBC) [Entitic mass] 30.8 pg Normal 27-34 [facility] Comment on above: Performed By: #### Nataliia QUIROGA, 1986-08, CBCA, 4489, 4498-2, 07774-5 #### [facility] ([id number]) [address], [address] [place] [address] MCHC (RBC) [Mass/Vol] 34.7 g/dL Normal 32-36 [facility] Comment on above: Performed By: #### Nataliia QUIROGA, 1986-08, CBCA, 448-9, 4498-2, 71557-9 #### [facility] ([id number]) [address], [address] [place] [address] MCV (RBC) [Entitic vol] 89 fL Normal 80-100 [facility] Comment on above: Performed By: #### C JUNAID, 1986-08, CBCA, 9, 4498-2, 39597-9 #### [facility] ([id number]) [address], [address] [place] [address] Monocytes (Bld) [#/Vol] 0.5 10*3/uL Normal 0-0.9 [facility] Comment on above: Performed By: #### C JUNAID, 1986-08, CBCA, 448-9, 4498-2, 43159-7 #### [facility] ([id number]) [address], [address] [place] [address] Monocytes/100 WBC (Bld) 6.9 % Normal [facility] Comment on above: Performed By: #### C JUNAID, 1986-08, CBCA, 4489, 4498-2, 26135-9 #### [facility] ([id number]) [address], [address] [place] [address] Neutrophils/100 WBC (Bld) 69.3 % Normal [facility] Comment on above: Performed By: #### C JUNAID, 1986-08, CBCA, 4485-9, 4498-2, 10810-8 #### [facility] ([id number]) [address], [address] [place] [address] Platelet mean volume (Bld) [Entitic vol] 7.3 fL Normal 7-12 [facility] Comment on above: Performed By: #### C JUNAID, 1986-08, CBCA, 448-9, 4498-2, 70737-4 #### [facility] ([id number]) [address], [facility] [address] [place] [address] Platelets (Bld) [#/Vol] 264 10*3/uL Normal 150-450 [facility] Comment on above: Performed By: #### Nataliia QUIROGA, 1986-08, CBCA, 448-9, 4498-2, 07352-4 #### [facility] ([id number]) [address], [address] [place] [address] RBC COUNT 3.80 X10E12/L Normal 3.80-5.20 [facility] Comment on above: Performed By: #### Nataliia QUIROGA, 1986-08, CBCA, 4485-9, 4498-2, 59404-4 #### [facility] ([id number]) [address], [address] [place] [address] WBC (Bld) [#/Vol] 7.8 10*3/uL Normal 4.0-11.0 [facility] Comment on above: Performed By: #### Nataliia QUIROGA, 1986-08, CBCA, 4485-9, 4498-2, 30606-5 #### [facility] ([id number]) [address] [place] [address] CBC auto differentialon Basophils (Bld) [#/Vol] 0.0 10*3/uL [facility] Basophils/100 WBC (Bld) 0.1 % [facility] Eosinophils (Bld) [#/Vol] 0.0 10*3/uL [facility] Eosinophils/100 WBC (Bld) 0.1 % [facility] Erythrocyte distribution width (RBC) [Ratio] 14.4 % 11.5 - 15.0 % [facility] Hematocrit (Bld) [Volume fraction] 33.8 % Low 35 - 47 % [facility] Hemoglobin (Bld) [Mass/Vol] 11.7 g/dL 11.7 - 15.5 g/dL [facility] Interpretation and review of laboratory results Abnormal [facility] Lymphocytes (Bld) [#/Vol] 1.8 10*3/uL [facility] Lymphocytes/100 WBC (Bld) 23.6 % [facility] MCH (RBC) [Entitic mass] 30.8 pg 27 - 34 pg [facility] MCHC (RBC) [Mass/Vol] 34.7 g/dL 32 - 36 g/dL [facility] MCV (RBC) [Entitic vol] 89 fL 80 - 100 fL [facility] Monocytes (Bld) [#/Vol] 0.5 10*3/uL [facility] Monocytes/100 WBC (Bld) 6.9 % [facility] Neutrophils (Bld) [#/Vol] 5.4 10*3/uL [facility] Neutrophils/100 WBC (Bld) 69.3 % [facility] Platelet mean volume (Bld) [Entitic vol] 7.3 fL 7 - 12 fL [facility] Platelets (Bld) [#/Vol] 264 10*3/uL [facility] RBC (Bld) [#/Vol] 3.80 10*6/uL [facility] WBC corrected for nucl RBC Auto (Bld) [#/Vol] 7.8 [facility] [place] Carotid arteries - bilate ralon 02-02-2024 Right: Plaque with n o significant ICA spectral Doppler or color flow disturbances; ICA 65 / 26 cm/sec. Antegrade vertebral artery flow. Left: No plaque or significant flow abnormality of the extracranial carotid arteries; ICA 65 / 26 cm/sec. Antegrade vertebral artery flow. Conclusions: RIGHT:Plaque without significant stenosis (<50%) of the internal carotid artery. Antegrade vertebral artery flow.LEFT:Normal extracranial carotid duplex evaluation. Antegrade vertebral artery flow. Recommendations: Any questions prior to finalization, please call the reading physician during normal business hours at the phone number beside their name. CARDIOVASCULAR Anabela Queen DO - 02/02/2024 Right: Plaque with no significant ICA spectral Doppler or color flow disturbances; ICA 65 / 26 cm/sec. Antegrade vertebral artery flow. Left: No plaque or significant flow abnormality of the extracranial carotid arteries; ICA 65 / 26 cm/sec. Antegrade vertebral artery flow. Conclusions: RIGHT:Plaque without significant stenosis (<50%) of the internal carotid artery. Antegrade vertebral artery flow.LEFT:Normal extracranial carotid duplex evaluation. Antegrade vertebral artery flow. Recommendations: Any questions prior to finalization, please call the reading physician during normal business hours at the phone number beside their name. [facility] Radiology Study observation (narrative) [facility] [place] Carotid arteries - bilate ralOrdered By: Anabela Queen on 02-02-2024 [facility] Work Phone: aPTT Coag (PPP) [Time]on Interpretation and review of laboratory results Abnormal [facility] aPTT Coag (Bld) [Time] 54 s High 26-37 [facility] Comment on above: Performed By: #### C MP, 1987-5, CBCA, 4485-9, 4498-2, 62954-5 #### [facility] ([id number]) [address], [address] [place] [address] Interpretation and review of laboratory results [facility] aPTT Coag (Bld) [Time] 58 s High 26-37 [facility] Comment on above: Performed By: #### C JUNAID, 1986-08, CBCA, 4485-9, 4498-2, 62898-0 #### [facility] ([id number]) [address], [address] [place] [address] Interpretation and review of laboratory results Abnormal [facility] aPTT Coag (Bld) [Time] 41 s High 26-37 [facility] Comment on above: Performed By: #### C JUNAID, 1986-08, CBCA, 4485-9, 4498-2, 85370-3 #### [facility] ([id number]) [address], [address] [place] [address] APTTon 02-01-2024 aPTT Coag (PPP) [Time] 31 s [facility] BASIC METABOLIC PANLon 01-31 Anion gap [Moles/Vol] 9 mmol/L Normal 5-15 [facility] Comment on above: Performed By: #### Nataliia QUIROGA, 1986-08, CBCA, 4485-9, 4498-2, 47349-9 #### [facility] ([id number]) [address], [address] [place] [address] Calcium [Mass/Vol] 9.0 mg/dL Normal 8.5-10.5 [facility] Comment on above: Performed By: #### Nataliia QUIROGA, 1986-08, CBCA, 4485-9, 4498-2, 97524-8 #### [facility] ([id number]) [address], [address] [place] [address] Chloride [Moles/Vol] 103 mmol/L Normal 98-109 [facility] Comment on above: Performed By: #### Nataliia QUIROGA, 1986-08, CBCA, 4485-9, 4498-2, 27196-5 #### [facility] ([id number]) [address], [address] [place] [address] CO2 [Moles/Vol] 26 mmol/L Normal 22-32 [facility] Comment on above: Performed By: #### C JUNAID, 1986-08, CBCA, 4485-9, 4498-2, 92069-1 #### [facility] ([id number]) [address] [place] [address] Creatinine [Mass/Vol] 1.33 mg/dL High 0.40-1.00 [facility] Comment on above: Result Comment: METH OD TRACEABLE TO IDMS STANDARD Performed By: #### C JUNAID, 1986-08, CBCAlice, 4485-9, 4498-2, 04077-7 #### [facility] ([id number]) [address], [facility] [address] [place] [address] GFR/1.73 sq M.predicted among non-blacks MDRD (S/P/Bld) [Vol rate/Area] 55 mL/min/{1.73_m2} Low >59 [facility] Comment on above: Result Comment: Reported eGFR is based on the CKD-EPI 2020 equation that does not use a race coefficient. Performed By: #### C JUNAID, 1986-08, CBCA, 4485-9, 4498-2, 82081-4 #### [facility] ([id number]) [address] [place] [address] Glucose [Mass/Vol] 152 mg/dL High 65-99 [facility] Comment on above: Performed By: #### C JUNAID, 1986-08, CBCA, 4485-9, 4498-2, 94291-8 #### [facility] ([id number]) [address] [place] [address] Potassium [Moles/Vol] 4.5 mmol/L Normal 3.5-5.0 [facility] Comment on above: Performed By: #### C MP, 1986-08, CBCA, 4485-9, 4498-2, 00195-1 #### [facility] ([id number]) [address], [address] [place] [address] Sodium [Moles/Vol] 138 mmol/L Normal 134-146 [facility] Comment on above: Performed By: #### C MP, 1986-08, CBCA, 4485-9, 4498-2, 21321-1 #### [facility] ([id number]) [address], [address] [place] [address] Urea nitrogen [Mass/Vol] 30 mg/dL High 5-23 [facility] Comment on above: Performed By: #### C MP, 1986-08, CBCA, 4485-9, 4498-2, 13922-9 #### [facility] ([id number]) [address], [address] [place] [address] Basic Metabolic Panelon 10-0 Anion gap [Moles/Vol] 9 mmol/L 5 - 15 mmol/L [facility] Calcium [Mass/Vol] 9.0 mg/dL 8.5 - 10. 5 mg/dL [facility] Chloride [Moles/Vol] 103 mmol/L 98 - 109 mmol/L [facility] CO2 [Moles/Vol] 26 mmol/L 22 - 32 mmol/L [facility] Creatinine [Mass/Vol] 1.33 mg/dL High 0.40 - 1.00 mg/dL [facility] Comment on above: METHOD TRACEABLE TO IDMS STANDARD eGFR (CKD-EPI)non-race dependent 55 Low - PINF [facility] Comment on above: Reported eGFR is based on the CKD-EPI 2020 equation that does not use a race coefficient. Glucose [Mass/Vol] 152 mg/dL High 65 - 99 mg/dL [facility] Interpretation and review of laboratory results Abnormal [facility] Potassium [Moles/Vol] 4.5 mmol/L 3.5 - 5.0 mmol/L [facility] Sodium [Moles/Vol] 138 mmol/L 134 - 146 mmol/L [facility] Urea nitrogen [Mass/Vol] 30 mg/dL High 5 - 23 mg/dL [facility] CBC AND AUTO DIFFon 02-01-20 ABSOLUTE BASOPHIL 0.0 X10E9/L Normal 0.0-0.2 [facility] Comment on above: Performed By: #### Nataliia QUIROGA, 1986-08, CBCA, 4485-9, 4498-2, 40081-0 #### [facility] ([id number]) [address], [address] [place] [address] ABSOLUTE NEUTROPHIL 7.3 X10E9/L High 1.5-6.6 [facility] Comment on above: Performed By: #### Nataliia QUIROGA, 1986-08, CBCA, 9, 4498-2, 61806-7 #### [facility] ([id number]) [address] [place] [address] Basophils/100 WBC (Bld) 0.5 % Normal [facility] Comment on above: Performed By: #### Nataliia QUIROGA, 1986-08, CBCA, 9, 4498-2, 46876-7 #### [facility] ([id number]) [address], [address] [place] [address] Eosinophils (Bld) [#/Vol] 0.0 10*3/uL Normal 0.0-0.4 [facility] Comment on above: Performed By: #### Nataliia QUIROGA, 1986-08, CBCA, 448-9, 4498-2, 16748-7 #### [facility] ([id number]) [address], [address] [place] [address] Eosinophils/100 WBC (Bld) 0.0 % Normal [facility] Comment on above: Performed By: #### Nataliia QUIROGA, 1986-08, CBCA, 448-9, 4498-2, 10875-7 #### [facility] ([id number]) [address], [address] [place] [address] Erythrocyte distribution width (RBC) [Ratio] 14.4 % Normal 11.5-15.0 [facility] Comment on above: Performed By: #### C JUNAID, 1986-08, CBCA, 4485-9, 4498-2, 18565-9 #### [facility] ([id number]) [address], [address] [place] [address] Hematocrit (Bld) [Volume fraction] 35.8 % Normal 35-47 [facility] Comment on above: Performed By: #### Nataliia QUIORGA, 1986-08, CBCA, 4485-9, 4498-2, 84978-9 #### [facility] ([id number]) [address], [address] [place] [address] Hemoglobin (Bld) [Mass/Vol] 12.9 g/dL Normal 11.7-15.5 [facility] Comment on above: Performed By: #### Nataliia QUIROGA, 1986-08, CBCA, 4485-9, 4498-2, 50232-3 #### [facility] ([id number]) [address] [place] [address] Lymphocytes (Bld) [#/Vol] 0.4 10*3/uL Low 1.0-3.5 [facility] Comment on above: Performed By: #### Nataliia QUIROGA, 1986-08, CBCA, 4485-9, 4498-2, 42500-3 #### [facility] ([id number]) [address] [place] [address] Lymphocytes/100 WBC (Bld) 5.2 % Normal [facility] Comment on above: Performed By: #### Nataliia QUIROGA, 1986-08, CBCA, 4485-9, 4498-2, 28754-3 #### [facility] ([id number]) [address] [place] [address] MCH (RBC) [Entitic mass] 31.6 pg Normal 27-34 [facility] Comment on above: Performed By: #### C JUNAID, 1986-08, CBCA, 4485-9, 4498-2, 63100-5 #### [facility] ([id number]) [address], [facility] [address] [place] [address] MCHC (RBC) [Mass/Vol] 36.0 g/dL Normal 32-36 [facility] Comment on above: Performed By: #### Nataliia QUIROGA, 1986-08, CBCA, 4484-12, 4498-2, 70205-0 #### [facility] ([id number]) [address], [facility] [address] [place] [address] MCV (RBC) [Entitic vol] 88 fL Normal 80-100 [facility] Comment on above: Performed By: #### Nataliia QUIROGA, 1986-08, CBCA, 44809-05, 4498-2, 61686-8 #### [facility] ([id number]) [address], [facility] [address] [place] [address] Monocytes (Bld) [#/Vol] 0.1 10*3/uL Normal 0-0.9 [facility] Comment on above: Performed By: #### Nataliia QUIROGA, 1986-08, CBCA, 4484-12, 4498-2, 40541-5 #### [facility] ([id number]) [address], [facility] [address] [place] [address] Monocytes/100 WBC (Bld) 0.7 % Normal [facility] Comment on above: Performed By: #### Nataliia QUIROGA, 1986-08, CBCA, 4485-9, 4498-2, 90903-5 #### [facility] ([id number]) [address], [address] [place] [address] Neutrophils/100 WBC (Bld) 93.6 % Normal [facility] Comment on above: Performed By: #### C JUNAID, 1986-08, CBCA, 4485-9, 4498-2, 06220-3 #### [facility] ([id number]) [address], [address] [place] [address] Platelet mean volume (Bld) [Entitic vol] 7.5 fL Normal 7-12 [facility] Comment on above: Performed By: #### C JUNAID, 1986-08, CBCA, 4485-9, 4498-2, 28624-7 #### [facility] ([id number]) [address], [facility] [address] [place] [address] Platelets (Bld) [#/Vol] 366 10*3/uL Normal 150-450 [facility] Comment on above: Performed By: #### Nataliia QUIROGA, 1986-08, CBCA, 4485-9, 4498-2, 01649-6 #### [facility] ([id number]) [address], [address] [place] [address] RBC COUNT 4.08 X10E12/L Normal 3.80-5.20 [facility] Comment on above: Performed By: #### Nataliia QUIROGA, 1986-08, CBCA, 4485-9, 4498-2, 89123-4 #### [facility] ([id number]) [address], [address] [address] WBC (Bld) [#/Vol] 7.8 10*3/uL Normal 4.0-11.0 [facility] Comment on above: Performed By: #### Nataliia QUIROGA, 1986-08, CBCA, 4485-9, 4498-2, 97488-5 #### [facility] ([id number]) [address], [address] [place] [address] CBC auto differentialon 10-0 -2023 Basophils (Bld) [#/Vol] 0.0 10*3/uL [facility] Basophils/100 WBC (Bld) 0.5 % [facility] Eosinophils (Bld) [#/Vol] 0.0 10*3/uL [facility] Eosinophils/100 WBC (Bld) 0.0 % [facility] Erythrocyte distribution width (RBC) [Ratio] 14.4 % 11.5 - 15.0 % [facility] Hematocrit (Bld) [Volume fraction] 35.8 % 35 - 47 % [place] Hemoglobin (Bld) [Mass/Vol] 12.9 g/dL 11.7 - 15.5 g/dL [facility] Interpretation and review of laboratory results Abnormal [facility] Lymphocytes (Bld) [#/Vol] 0.4 10*3/uL Low [facility] Lymphocytes/100 WBC (Bld) 5.2 % [facility] MCH (RBC) [Entitic mass] 31.6 pg 27 - 34 pg [facility] MCHC (RBC) [Mass/Vol] 36.0 g/dL 32 - 36 g/dL [facility] MCV (RBC) [Entitic vol] 88 fL 80 - 100 fL [facility] Monocytes (Bld) [#/Vol] 0.1 10*3/uL [facility] Monocytes/100 WBC (Bld) 0.7 % [facility] Neutrophils (Bld) [#/Vol] 7.3 10*3/uL High [facility] Neutrophils/100 WBC (Bld) 93.6 % [facility] Platelet mean volume (Bld) [Entitic vol] 7.5 fL 7 - 12 fL [facility] Platelets (Bld) [#/Vol] 366 10*3/uL [facility] RBC (Bld) [#/Vol] 4.08 10*6/uL [facility] WBC corrected for nucl RBC Auto (Bld) [#/Vol] 7.8 [facility] CT CTA HEADon 02-01-[address] HEAD [address] angiogram head with contrast History: Vasculitis, stroke suspected. Technique: CT angiogram of the head was performed following intravenous administration of 100 cc Omnipaque 350 nonionic intravenous contrast. 3-D maximum intensity projection images generated and reviewed under concurrent physician supervision. Automated exposure control was utilized. Arterial blood flow was measured to assist the stroke clinical team in the diagnosis of large vessel occlusion in patients undergoing screening for acute ischemic stroke using Rapid AI software when clinically indicated. Findings: Head and neck dictated separately. Unremarkable visualized intracranial internal carotid arteries, anterior, middle, posterior cerebral arteries. Unremarkable vertebral, basilar arteries. No sizable, saccular aneurysm. Flat pituitary, expanded sella. Enlarged Meckel's caves. Narrowed transverse sinuses, poorly assessed. Impression: Features suggestive of idiopathic intracranial hypertension, correlate clinically. Normal CTA. All CT scans at this facility use dose modulation, iterative reconstruction, and/or weight based dosing when appropriate to reduce radiation dose to as low as reasonably achievable. Finalized by Ruben Esteban MD on 02/01/2024 2:54 AM Normal [facility] CT CTV HEADon 02-01-[address] CTV HEAD CT CTV HEAD HISTORY: . Dural venous sinus thrombosis suspected; Headache, chronic, new features or increased frequency TECHNIQUE: CT venogram of the head was performed following intravenous administration of 100 cc Omnipaque 350 nonionic intravenous contrast. Maximum intensity projection images generated and reviewed under concurrent physician supervision. Automated exposure control was utilized. COMPARISON:01/27/2024 FINDINGS: Images under concurrent CTA head accession [which is dictated separately]. Patent superior sagittal sinus, internal cerebral veins, straight sinus, cavernous sinuses. Narrowed transverse and sigmoid sinuses, without acute appearing filling defect. Symmetric cortical venous enhancement.. Dilated optic nerve sheaths. IMPRESSION: Venous morphologic features suggestive of intracranial hypertension. No acute dural venous sinus thrombosis. All CT scans at this facility use dose modulation, iterative reconstruction, and/or weight based dosing when appropriate to reduce radiation dose to as low as reasonably achievable. Finalized by Ruben Esteban MD on 02/01/2024 2:56 AM Normal [facility] CTA Head Arteries W contrast Mary 02-01-2024 CT angiogram head with contrast History: Vasculitis, stroke suspected. Technique: CT angiogram of the head was performed following intravenous administration of 100 cc Omnipaque 350 nonionic intravenous contrast. 3-D maximum intensity projection images generated and reviewed under concurrent physician supervision. Automated exposure control was utilized. Arterial blood flow was measured to assist the stroke clinical team in the diagnosis of large vessel occlusion in patients undergoing screening for acute ischemic stroke using Rapid AI software when clinically indicated. Findings: Head and neck dictated separately. Unremarkable visualized intracranial internal carotid arteries, anterior, middle, posterior cerebral arteries. Unremarkable vertebral, basilar arteries. No sizable, saccular aneurysm. Flat pituitary, expanded sella. Enlarged Meckel's caves. Narrowed transverse sinuses, poorly assessed. Impression: Features suggestive of idiopathic intracranial hypertension, correlate clinically. Normal CTA. All CT scans at this facility use dose modulation, iterative reconstruction, and/or weight based dosing when appropriate to reduce radiation dose to as low as reasonably achievable. Finalized by Ruben Esteban MD on 02/01/2024 2:54 AM [facility] Ruben Esteban MD - 02/01/2024 CT angiogram head with contrast History: Vasculitis, stroke suspected. Technique: CT angiogram of the head was performed following intravenous administration of 100 cc Omnipaque 350 nonionic intravenous contrast. 3-D maximum intensity projection images generated and reviewed under concurrent physician supervision. Automated exposure control was utilized. Arterial blood flow was measured to assist the stroke clinical team in the diagnosis of large vessel occlusion in patients undergoing screening for acute ischemic stroke using Rapid AI software when clinically indicated. Findings: Head and neck dictated separately. Unremarkable visualized intracranial internal carotid arteries, anterior, middle, posterior cerebral arteries. Unremarkable vertebral, basilar arteries. No sizable, saccular aneurysm. Flat pituitary, expanded sella. Enlarged Meckel's caves. Narrowed transverse sinuses, poorly assessed. Impression: Features suggestive of idiopathic intracranial hypertension, correlate clinically. Normal CTA. All CT scans at this facility use dose modulation, iterative reconstruction, and/or weight based dosing when appropriate to reduce radiation dose to as low as reasonably achievable. Finalized by Ruben Esteban MD on 02/01/2024 2:54 AM [employer] CTA Head Arteries W contrast IVOrdered By: Ruben Esteban on 02-01-2024 [facility] Work Phone: CTA Head vessels WO and W co ntrast Mary 02-01-2024 CT CTV HEAD HISTORY: . Dural venous sinus thrombosis suspected; Headache, chronic, new features or increased frequency TECHNIQUE: CT venogram of the head was performed following intravenous administration of 100 cc Omnipaque 350 nonionic intravenous contrast. Maximum intensity projection images generated and reviewed under concurrent physician supervision. Automated exposure control was utilized. COMPARISON:01/27/2024 FINDINGS: Images under concurrent CTA head accession [which is dictated separately]. Patent superior sagittal sinus, internal cerebral veins, straight sinus, cavernous sinuses. Narrowed transverse and sigmoid sinuses, without acute appearing filling defect. Symmetric cortical venous enhancement.. Dilated optic nerve sheaths. IMPRESSION: Venous morphologic features suggestive of intracranial hypertension. No acute dural venous sinus thrombosis. All CT scans at this facility use dose modulation, iterative reconstruction, and/or weight based dosing when appropriate to reduce radiation dose to as low as reasonably achievable. Finalized by Ruben Esteban MD on 02/01/2024 2:56 AM [facility] Ruben Esteban MD - 02/01/2024 CT CTV HEAD HISTORY: . Dural venous sinus thrombosis suspected; Headache, chronic, new features or increased frequency TECHNIQUE: CT venogram of the head was performed following intravenous administration of 100 cc Omnipaque 350 nonionic intravenous contrast. Maximum intensity projection images generated and reviewed under concurrent physician supervision. Automated exposure control was utilized. COMPARISON:01/27/2024 FINDINGS: Images under concurrent CTA head accession [which is dictated separately]. Patent superior sagittal sinus, internal cerebral veins, straight sinus, cavernous sinuses. Narrowed transverse and sigmoid sinuses, without acute appearing filling defect. Symmetric cortical venous enhancement.. Dilated optic nerve sheaths. IMPRESSION: Venous morphologic features suggestive of intracranial hypertension. No acute dural venous sinus thrombosis. All CT scans at this facility use dose modulation, iterative reconstruction, and/or weight based dosing when appropriate to reduce radiation dose to as low as reasonably achievable. Finalized by Ruben Esteban MD on 02/01/2024 2:56 AM [facility] HEMOGLOBINon 02-01-2024 Hemoglobin (Bld) [Mass/Vol] 12.3 g/dL Normal 11.7-15.5 [facility] Comment on above: Performed By: #### C MP, 1986-08, CBCA, 4485-9, 4498-2, 96699-1 #### [facility] ([id number]) [address], [address] [place] [address] Hemoglobinon 02-01-2024 Hemoglobin (Bld) [Mass/Vol] 12.3 g/dL 11.7 - 15.5 g/dL [facility] No Panel Informationon 01-31 [facility] PLATELET COUNT AND MPVon Platelet mean volume (Bld) [Entitic vol] 7.9 fL Normal 7-12 [facility] Comment on above: Performed By: #### C JUNAID, 1986-08, CBCA, 4485-9, 4498-2, 88480-5 #### [facility] ([id number]) [address], [address] [place] [address] Platelets (Bld) [#/Vol] 325 10*3/uL Normal 150-450 [facility] Comment on above: Performed By: #### C JUNAID, 1986-08, CBCA, 4485-9, 4498-2, 83201-6 #### [facility] ([id number]) [address], [address] [place] [address] PROTIME AND INRon 02-01-2024 INR Coag (PPP) [Relative time] 1.1 {INR} Normal 0.8-1.1 [facility] Comment on above: Performed By: #### C JUNAID, 1986-08, CBCA, 4485-9, 4498-2, 60015-6 #### [facility] ([id number]) [address], [address] [place] [address] PT Coag (PPP) [Time] 12.4 s Normal 9.8-13.2 [facility] Comment on above: Performed By: #### C JUNAID, 1986-08, CBCA, 4485-9, 4498-2, 70139-5 #### [facility] ([id number]) [address], [address] [place] [address] Platelet counton 02-01-2024 Platelet mean volume (Bld) [Entitic vol] 7.9 fL 7 - 12 fL [facility] Platelets (Bld) [#/Vol] 325 10*3/uL [facility] Protime & INRon 02-01-2024 INR Coag (PPP) [Relative time] 1.1 {INR} [facility] PT Coag (PPP) [Time] 12.4 s [facility] aPTT Coag (PPP) [Time]on aPTT Coag (Bld) [Time] 31 s Normal 26-37 [facility] Comment on above: Performed By: #### C JUNAID, 1986-, CBCA, 4485-9, 4498-2, 41550-1 #### [facility] ([id number]) [address], [address] [place] [address] BASIC METABOLIC PANLon 01-30 Anion gap [Moles/Vol] 10 mmol/L Normal 5-15 [facility] Comment on above: Performed By: #### Kristi QUIROGA, 35757-2 ####[facility] ([id number])[address] [place] [address]26#### 80900-0 ####[facility] ([id number])[address] [place] [address] Calcium [Mass/Vol] 8.3 mg/dL Low 8.5-10.[address] [facility] Comment on above: Performed By: #### Kristi QUIROGA, ####[facility] ([id number])[address] [place] [address]10#### 31719-5 ####[facility] ([id number])[address] [facility] [facility], [place] [address] Chloride [Moles/Vol] 100 mmol/L Normal 98-109 [facility] Comment on above: Performed By: #### Kristi QUIROGA, ####[facility] ([id number])[address] [place] [address] 36259#### 36322-2 ####[facility] ([id number])[address] [place] [address] CO2 [Moles/Vol] 30 mmol/L Normal 22-32 [facility] Comment on above: Performed By: #### Kristi QUIROGA, ####[facility] ([id number])[address] [place] [address] 29926#### 03607-2 ####[facility] ([id number])[address] [facility] [facility], [address] [place] [address] Creatinine [Mass/Vol] 1.54 mg/dL High 0.40-1.00 [facility] Comment on above: Result Comment: METH OD TRACEABLE TO IDMS STANDARD Performed By: #### Kristi QUIROGA, ####[facility] ([id number])[address] [place] [address] 40757#### 40483-9 ####[facility] ([id number])[address] [facility], [address] [address] GFR/1.73 sq M.predicted among non-blacks MDRD (S/P/Bld) [Vol rate/Area] 46 mL/min/{1.73_m2} Low >59 [facility] Comment on above: Result Comment: Repo rted eGFR is based on theCKD-EPI 2020 equation that doesnot use a race coefficient. Performed By: #### Kristi QUIROGA, ####[facility] ([id number])[address] [place] [address] 31397#### 55639-1 ####[facility] ([id number])[address], [place] [address] Glucose [Mass/Vol] 85 mg/dL Normal 65-[address] [facility] Comment on above: Performed By: #### Kristi QUIROGA, 70706-5 ####[facility] ([id number])[address] [place] [address] 13709#### 03203-1 ####[facility] ([id number])[address] [place] [address] Potassium [Moles/Vol] 3.4 mmol/L Low 3.5-5.0 [facility] Comment on above: Performed By: #### Kristi QUIROGA, ####[facility] ([id number])[address] [place] [address] 99219#### 30388-6 ####[facility] ([id number])[address] [place] [address] Sodium [Moles/Vol] 140 mmol/L Normal 134-[address] [facility] Comment on above: Performed By: #### Kristi QUIROGA, ####[facility] ([id number])[address] [place] [address] 80853#### 92070-2 ####[facility] [facility] ([id number])[address] [place] [address] Urea nitrogen [Mass/Vol] 28 mg/dL High 5-23 [facility] Comment on above: Performed By: #### Kristi QUIROGA, ####[facility] ([id number])[address] [place] [address] 92602#### 99199-4 ####[facility] ([id number])[address], [address] [place] [address] COMPLETE BLOOD COUNTon 10-03 -2024 Erythrocyte distribution width (RBC) [Ratio] 14.5 % Normal 11.5-15.0 [facility] Comment on above: Performed By: #### Nataliia GATICA, ####[facility] ([id number])[address] [place] [address] 00453 Hematocrit (Bld) [Volume fraction] 36.1 % Normal 35-47 [facility] Comment on above: Performed By: #### Nataliia GATICA, ####[facility] ([id number])[address] [place] [address] 51560 Hemoglobin (Bld) [Mass/Vol] 12.4 g/dL Normal 11.7-15.5 [facility] Comment on above: Performed By: #### Nataliia GATICA, ####[facility] ([id number])[address] [place] [address] 46789 MCH (RBC) [Entitic mass] 30.5 pg Normal 27-34 [facility] Comment on above: Performed By: #### Nataliia GATICA, ####[facility] ([id number])[address] [place] [address] 76521 MCHC (RBC) [Mass/Vol] 34.3 g/dL Normal 32-36 [facility] Comment on above: Performed By: #### Nataliia GATICA, ####[facility] ([id number])[address] [place] [address] [place] [address] MCV (RBC) [Entitic vol] 89 fL Normal 80-100 [facility] Comment on above: Performed By: #### Nataliia GATICA, ####[facility] ([id number])[address] [place] [address] 27974 Platelet mean volume (Bld) [Entitic vol] 7.2 fL Normal 7-12 [facility] Comment on above: Performed By: #### C BC, 91223-2 ####[facility] ([id number])[address] [place] [address] 44593 Platelets (Bld) [#/Vol] 337 10*3/uL Normal 150-450 [facility] Comment on above: Performed By: #### C BC, 93830-1 ####[facility] ([id number])[address] [place] [address] 33307 RBC COUNT 4.06 X10E12/L Normal 3.80-5.20 [facility] Comment on above: Performed By: #### Nataliia GATICA, 02663-7 ####[facility] ([id number])[address] [place] [address] 91917 WBC (Bld) [#/Vol] 6.8 10*3/uL Normal 4.0-11.[address] [facility] Comment on above: Performed By: #### Nataliia GATICA, 30561-0 ####[facility] ([id number])[address] [place] [address] 05993 CTA Head Arteries W contrast Mary 01-31-2024 Radiology Study observation (narrative) [facility] CTA Head vessels WO and W co ntrast Mary 01-31-2024 Radiology Study observation (narrative) [facility] ESR Photometric method (Bld) [Velocity]on 01-31-2024 ESR, ERYTHROCYTE SEDIMENTATION RATE 2 mm/h Normal 0-20 [facility] Comment on above: Performed By: #### B MP, 65306-5 ####[facility] ([id number])[address] [place] [address] 44110#### 97989-3 ####[facility] ([id number])[address] [facility] [address] MAGNESIUMon 01-31-2024 Magnesium [Mass/Vol] 2.6 mg/dL Normal 1.8-2.6 [facility] Comment on above: Performed By: #### C BC, 87645-8 ####[facility] ([id number])[address] [place] [address] 74667 Magnesium [Mass/Vol] 1.8 mg/dL Normal 1.8-2.6 [facility] Comment on above: Performed By: #### B , 13918-1 ####[facility] ([id number])[address] [place] [address] 88650#### 62414-8 ####[facility] ([id number])[address] [facility], [address] [address] Magnesium [Mass/Vol] 1.8 mg/dL Normal 1.8-2.6 [facility] Comment on above: Performed By: #### 1 9123-9 ####[facility] ([id number])[address] [place] [address] 30329 MR BRAIN W WO CONTon 024 MR BRAIN W WO CONT Normal [facility] POTASSIUMon 01-31-2024 Potassium [Moles/Vol] 3.8 mmol/L Normal 3.5-5.0 [facility] Comment on above: Performed By: #### 2 823-3 ####[facility] ([id number])[address] [place] [address] 57874 PROTIME AND INRon 01-31-2024 INR Coag (PPP) [Relative time] 1.4 {INR} High 0.8-1.1 [facility] Comment on above: Performed By: #### C JUNAID, 1986-, CBCA, 4485-9, 4498-2, 37439-5 #### [facility] ([id number]) [address], [address] [place] [address] PT Coag (PPP) [Time] 16.6 s High 9.8-13.2 [facility] Comment on above: Performed By: #### C MP, 1988-5, CBCA, 4485-9, 4498-2, 77249-8 #### [facility] ([id number]) [address] [facility], [address] [place] [address] Protime & INRon 01-31-2024 INR Coag (PPP) [Relative time] 1.4 {INR} High [facility] Interpretation and review of laboratory results Abnormal [facility] PT Coag (PPP) [Time] 16.[address] [facility] Urology Office/Clinic Noteon 01-31-2024 Urology Office/Clinic Note Urology Office/Clinic Note HPI Staff 33 yr old here for 1.5 yr f/u. Dx: Frequent UTIs Dysuria: no Incomplete bladder emptying: no Hematuria: UA shows large today Frequency: 1-3 hours Urgency: no Nocturia: 2-3x's Stream: good stream Post void dripping: no Wearing pads/ Depends: no Urge incontinence: no Stress incontinence: no Incontinence without Sensory Awareness: no Abdominal pain: no Flank pain: no Review of Systems no fever, chills, malaise, myalgia. no rash/lesions. no chest pain, palpitations, or SOB. no abdominal pain, nausea, vomiting. no unilateral calf swelling, redness, pain Physical Exam General: nontoxic, NAD Mouth: moist mucosa Lungs: normal respiratory effort Cardio: regular rate, good distal perfusion Abdomen: nondistended, no suprapubic distention or tenderness, no CVA tenderness Neurologic: Grossly normal Skin: No rashes or suspicious lesions Assessment/Plan BBS - good UA shows 3+hgb, pt just finishing her period. Denies gross hematuria. Denies current UTI sx. 1. Frequent UTI (N39.0: Urinary tract infection, site not specified) Started on post-coital abx 09/05/22. Working really well. Hasn't had any breakthrough UTIs this year. Risks/benefits discussed. Pt would like to remain on the post-coital abx. Knows to call if gets breakthrough UTI sx. 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 Medications acetaminophen, 325 mg acyclovir 400 mg Tab, 400 mg= 1 tab(s), Oral, 5x/Day Albuterol (Eqv-ProAir HFA) 90 mcg/inh inhalation aerosol allopurinol 100 mg Tab amitriptyline 50 mg Tab, 50 mg= 1 tab(s), Oral, Once a day (at bedtime) aspirin 81 mg oral capsule, 81 mg= 1 cap(s), Oral bumetanide 2 mg Tab carvedilol 6.25 mg Tab cholecalciferol clindamycin, 150 mg cyanocobalamin, 1000 mcg, Daily cyclobenzaprine 10 mg Tab, 10 mg= 1 tab(s), Oral, PRN Descovy 200 mg-25 mg oral tablet dicyclomine 10 mg Cap FeroSul 325 mg oral tablet, 325 mg= 1 tab(s), Oral, Daily ketoconazole Top 2% Shampoo Lupkynis 7.9 mg oral capsule magnesium oxide 400 mg Tab methocarbamol 750 mg Tab, 750 mg= 1 tab(s), Oral mycophenolate mofetil 500 mg oral tablet nitrofurantoin macrocrystals 50 mg Cap, See Instructions, 3 refills Pepcid 20 mg Tab, 20 mg= 1 tab(s), Oral, Daily, PRN Potassium Chloride (Uqs-Bjbi-Xpj M20) 20 mEq oral tablet, extended release predniSONE 20 mg Tab Provera 10 mg Tab, Oral, Daily rizatriptan 10 mg Tab Xarelto, 20 mg, Oral, qPM Allergies Bactrim (Rash) Keflex (Leg pain) ibuprofen (medication interference) Social History Alcohol - Denies Alcohol Use, 07/05/2022 Substance Abuse Past, Marijuana, Daily, 08/23/2023 Tobacco - Denies Tobacco Use, 07/05/2022 Former smoker, quit more than 30 days ago Tobacco Use:. Never Smokeless Tobacco Use:. Cigarettes, Yes, 01/29/2024 Family History Crohn's disease: Aunt. Immunizations Vaccine [...] 05/17/1995 Recorded hepatitis B pediatric vaccine 12/19/1994 Recorded hepatitis B pediatric vaccine 11/10/1994 Recorded DTaP, unspecified formulation 07/28/1993 Recorded measles/mumps/rubell (more content not included)... Normal [facility] Comment on above: Result Comment: Elec tronically Signed By: CYNTHIA GALLARDO PA-C\.br\Date and Time Signed: 01/31/24 16:08 EDT B. burgdorferi IgG+IgM Qn (S )on 01-30-2024 LYME TOTAL 0.6 A1 Normal <0.9 [facility] Comment on above: Result Comment: ---- ------Interpretation--------<0.9 Negative0.9 - 1.0 Equivocal>1.0 Positive No serological evidence of Borrelia infection.A non-reactive result does not exclude the possibility of Borrelia infection and cannot exclude early infection with B.burgdorferi. If Lyme borreliosis is suspected, a second sample should be collected and tested 2-4 weeks later. Performed By: #### C MP, CBCA, 5643-2, PINR, 00414-1 ####[facility] ([id number])[address] [place] [address]#### 90859-8 ####[facility] ([id number])[address] [place] [address], [address] [place] [address] 82147 CBC AND AUTO DIFFon 01-30-20 24 ABSOLUTE BASOPHIL 0.0 X10E9/L Normal 0.0-0.[address] [facility] Comment on above: Performed By: #### C MP, CBCA, 5643-2, PINR, 57841-4 ####[facility] ([id number])[address] [place], [place] [address]#### 99112-8 ####[facility] ([id number])[address] [place] [address], [address] [place] [address] 26090 ABSOLUTE NEUTROPHIL 4.4 X10E9/L Normal 1.5-6.6 [facility] Comment on above: Performed By: #### C MP, CBCA, 5643-2, PINR, 79147-0 ####[facility] ([id number])[address] [place] [address] 95246#### 47774-6 ####[facility] ([id number])[address] [place] [address], [address] [address] Basophils/100 WBC (Bld) 0.2 % Normal [facility] Comment on above: Performed By: #### C MP, CBCA, 5643-2, PINR, 58870-0 ####[facility] ([id number])[address] [place] [address] 28901#### 03326-1 ####[facility] ([id number])[address], [address] [place] [address] 53298 Eosinophils (Bld) [#/Vol] 0.0 10*3/uL Normal 0.0-0.4 [facility] Comment on above: Performed By: #### C MP, CBCA, 5643-2, PINR, 75519-5 ####[facility] ([id number])[address] [place] [address] 88100#### 35227-0 ####[facility] ([id number])[address] [address] Eosinophils/100 WBC (Bld) 0.2 % Normal [facility] Comment on above: Performed By: #### C MP, CBCA, 5643-2, PINR, 06414-1 ####[facility] ([id number])[address] [place] [address] 64261#### 61571-9 ####[facility] ([id number])[address] [address] Erythrocyte distribution width (RBC) [Ratio] 14.5 % Normal 11.5-15.0 [facility] Comment on above: Performed By: #### C MP, CBCA, 5643-2, PINR, 60634-2 ####[facility] ([id number])[address] [place] [address] 80797#### 84967-5 ####[facility] ([id number])[address] [address] Hematocrit (Bld) [Volume fraction] 36.8 % Normal 35-47 [facility] Comment on above: Performed By: #### C MP, CBCA, 5643-2, PINR, 15860-8 ####[facility] ([id number])[address] [place] [address] 87265#### 39902-7 ####[facility] ([id number])[address], [address] [address] Hemoglobin (Bld) [Mass/Vol] 12.4 g/dL Normal 11.7-15.5 [facility] Comment on above: Performed By: #### C MP, CBCA, 5643-2, PINR, 94369-5 ####[facility] ([id number])[address] [place] [address] 46255#### 65076-7 ####[facility] ([id number])[address], [address] [address] Lymphocytes (Bld) [#/Vol] 1.9 10*3/uL Normal 1.0-3.5 [facility] Comment on above: Performed By: #### C MP, CBCA, 5643-2, PINR, 68992-7 ####[facility] ([id number])[address] [place] [address] 11189#### 86086-0 ####[facility] ([id number])[address], [address] [address] Lymphocytes/100 WBC (Bld) 27.8 % Normal [facility] Comment on above: Performed By: #### C MP, CBCA, 5643-2, PINR, 97254-1 ####[facility] ([id number])[address] [place] [address] 87957#### 53588-1 ####[facility] ([id number])[address], [address], [place] [address] MCH (RBC) [Entitic mass] 30.1 pg Normal 27-34 [facility] Comment on above: Performed By: #### C MP, CBCA, 5643-2, PINR, 65035-7 ####[facility] ([id number])[address] [place] [address] 04715#### 16395-4 ####[facility] ([id number])[address], [place] [address] MCHC (RBC) [Mass/Vol] 33.8 g/dL Normal 32-36 [facility] Comment on above: Performed By: #### C MP, CBCA, 5643-2, PINR, 76169-5 ####[facility] ([id number])[address] [place] [address] 12076#### 57201-2 ####[facility] ([id number])[address], [address], [place] [address] MCV (RBC) [Entitic vol] 89 fL Normal 80-100 [facility] Comment on above: Performed By: #### C MP, CBCA, 5643-2, PINR, 72832-4 ####[facility] ([id number])[address] [place] [address] 33645#### 00500-1 ####[facility] ([id number])[address], [address] [address] Monocytes (Bld) [#/Vol] 0.6 10*3/uL Normal 0-0.9 [facility] Comment on above: Performed By: #### C MP, CBCA, 5643-2, PINR, 13546-2 ####[facility] ([id number])[address] [place] [address] 97934#### 93453-3 ####[facility] ([id number])[address], [address] [address] Monocytes/100 WBC (Bld) 8.8 % Normal [facility] Comment on above: Performed By: #### C MP, CBCA, 5643-2, PINR, 02494-3 ####[facility] ([id number])[address] [place] [address] 77257#### 91001-2 ####[facility] ([id number])[address], [address], [place] [address] Neutrophils/100 WBC (Bld) 63.0 % Normal [facility] Comment on above: Performed By: #### C MP, CBCA, 5643-2, PINR, 51239-2 ####[facility] ([id number])[address] [place] [address] 01812#### 93408-6 ####[facility] ([id number])[address], [address] [place] [address] 05452 Platelet mean volume (Bld) [Entitic vol] 7.2 fL Normal 7-12 [facility] Comment on above: Performed By: #### C MP, CBCA, 5643-2, PINR, 27032-4 ####[facility] ([id number])[address] [place] [address] 31242#### 64271-3 ####[facility] ([id number])[address], [address] [place] [address] 39737 Platelets (Bld) [#/Vol] 337 10*3/uL Normal 150-450 [facility] Comment on above: Performed By: #### C MP, CBCA, 5643-2, PINR, 72876-2 ####[facility] ([id number])[address] [place] [address] 95726#### 91763-4 ####[facility] ([id number])[address], [address], [place] [address] RBC COUNT 4.13 X10E12/L Normal 3.80-5.20 [facility] Comment on above: Performed By: #### C MP, CBCA, 5643-2, PINR, 49194-2 ####[facility] ([id number])[address] [place] [address] 94529#### 15840-4 ####[facility] ([id number])[address], [address] [place] [address] 25717 WBC (Bld) [#/Vol] 6.9 10*3/uL Normal 4.0-11.[address] [facility] Comment on above: Performed By: #### C MP, CBCA, 5643-2, PINR, 81704-5 ####[facility] ([id number])[address] [place] [address] 04886#### 49368-3 ####[facility] ([id number])[address] [facility], [address] [place] [address] COMPREHENSIVE METABOLIC PANE Gerardo 01-30-2024 Albumin [Mass/Vol] 4.2 g/dL Normal 3.2-5.[address] [facility] Comment on above: Performed By: #### C MP, CBCA, 5643-2, PINR, 82311-6 ####[facility] ([id number])[address] [place] [address] 70180#### 39500-9 ####[facility] ([id number])[address] [facility], [address] [place] [address] ALP [Catalytic activity/Vol] 73 U/L Normal 39-130 [facility] Comment on above: Performed By: #### C MP, CBCA, 5643-2, PINR, 49309-6 ####[facility] ([id number])[address] [place] [address] 07722#### 93074-8 ####[facility] ([id number])[address] [facility], [address] [address] ALT [Catalytic activity/Vol] 14 U/L Normal 0-31 [facility] Comment on above: Performed By: #### C MP, CBCA, 5643-2, PINR, 51270-9 ####[facility] ([id number])[address] [place] [address] 36737#### 98566-2 ####[facility] ([id number])[address] [facility], [address] [address] Anion gap [Moles/Vol] 10 mmol/L Normal 5-15 [facility] Comment on above: Performed By: #### C MP, CBCA, 5643-2, PINR, 36738-1 ####[facility] ([id number])[address] [place] [address] 83666#### 35610-9 ####[facility] ([id number])[address] [facility], [address] [address] AST [Catalytic activity/Vol] 14 U/L Normal 0-41 [facility] Comment on above: Performed By: #### C MP, CBCA, 5643-2, PINR, 71301-0 ####[facility] ([id number])[address] [place] [address] 81728#### 70363-0 ####[facility] ([id number])[address] [facility], [address], [place] [address] Bilirubin [Mass/Vol] 0.3 mg/dL Normal 0.3-1.2 [facility] Comment on above: Performed By: #### C MP, CBCA, 5643-2, PINR, 15856-2 ####[facility] ([id number])[address] [place] [address] 19743#### 56960-2 ####[facility] ([id number])[address], [address] [place] [address] Calcium [Mass/Vol] 8.8 mg/dL Normal 8.5-10.[address] [facility] Comment on above: Performed By: #### C MP, CBCA, 5643-2, PINR, 72867-5 ####[facility] ([id number])[address] [place] [address] 34139#### 40796-8 ####[facility] ([id number])[address] [facility], [address] [place] [address] Chloride [Moles/Vol] 101 mmol/L Normal 98-109 [facility] Comment on above: Performed By: #### C MP, CBCA, 5643-2, PINR, 91387-0 ####[facility] ([id number])[address] [place] [address] 71580#### 71385-4 ####[facility] ([id number])[address] [facility], [address] [place] [address] 23731 CO2 [Moles/Vol] 27 mmol/L Normal 22-32 [facility] Comment on above: Performed By: #### C MP, CBCA, 5643-2, PINR, 05306-5 ####[facility] ([id number])[address] [place] [address] 88208#### 87859-5 ####[facility] ([id number])[address] [facility], [address] [place] [address]4495 Creatinine [Mass/Vol] 1.46 mg/dL High 0.40-1.00 [facility] Comment on above: Result Comment: METH OD TRACEABLE TO IDMS STANDARD Performed By: #### C MP, CBCA, 5643-2, PINR, 58051-8 ####[facility] ([id number])[address] [place] [address] 40219#### 81372-5 ####[facility] ([id number])[address], [address] [place] [address]1756 GFR/1.73 sq M.predicted among non-blacks MDRD (S/P/Bld) [Vol rate/Area] 49 mL/min/{1.73_m2} Low >59 [facility] Comment on above: Result Comment: Repo rted eGFR is based on theCKD-EPI 2020 equation that doesnot use a race coefficient. Performed By: #### C RANDELL QUIROGA, 5643-2, PINR, 35106-1 ####[facility] ([id number])[address] [place] [address] 60674#### 13842-2 ####[facility] ([id number])[address] [facility], [address] [place] [address] 14172 Glucose [Mass/Vol] 116 mg/dL High 65-[address] [facility] Comment on above: Performed By: #### RANDELL William MP, 5643-2, PINR, 37329-6 ####[facility] ([id number])[address] [place] [address] 52375#### 04307-2 ####[facility] ([id number])[address] [facility], [address] [place] [address] 61316 Potassium [Moles/Vol] 3.5 mmol/L Normal 3.5-5.0 [facility] Comment on above: Performed By: #### OMAR William MPA, 5643-2, PINR, 82681-7 ####[facility] ([id number])[address] [place] [address] 86419#### 05726-1 ####[facility] ([id number])2130 [facility], [address] [place] [address] 70204 Protein [Mass/Vol] 6.6 g/dL Normal 6.0-8.[address] [facility] Comment on above: Performed By: #### C JUNAID, CBCA, 5643-2, PINR, 52271-0 ####[facility] ([id number])[address] [place] [address] 43968#### 24648-9 ####[facility] ([id number])2130 [facility], [address] [place] [address] 58015 Sodium [Moles/Vol] 138 mmol/L Normal 134-[address] [facility] Comment on above: Performed By: #### C JUNAID, CBCA, 5643-2, PINR, 57304-9 ####[facility] ([id number])[address] [place] [address] 14049#### 12200-6 ####[facility] ([id number])[address] [place] [address], [address] [place] [address] 45089 Urea nitrogen [Mass/Vol] 28 mg/dL High 5-23 [facility] Comment on above: Performed By: #### C MP, CBCA, 5643-2, PINR, 73856-1 ####[facility] ([id number])[address] [place] [address] 97374#### 14350-7 ####[facility] ([id number])[address] [place] [address], [address] [place] [address]1078 DRUG SCREEN, URINEon 024 AMPHETAMINE/METHAMP Negative Normal NEG [facility] Comment on above: Result Comment: AMPH /METH screening cut off = 1000 ng/mL Performed By: #### D GARCÍA ####[facility] ([id number])[address] [place] [address] BARBITURATES Negative Normal NEG [facility] Comment on above: Result Comment: Lisa iturates screening cut off value = 200 ng/mL Performed By: #### D GARCÍA ####[facility] ([id number])[address] [place] [address] 587[address] BENZODIAZEPINES Negative Normal NEG [facility] Comment on above: Result Comment: Ferdinand odiazepines screening cut off value = 200 ng/mL Performed By: #### D GARCÍA ####[facility] ([id number])[address] [place] [address] 98954 CANNABINOIDS Negative Normal NEG [facility] Comment on above: Result Comment: Travis abinoids/THC screening cut off value = 50 ng/mL Performed By: #### D GARCÍA ####[facility] ([id number])[address] [place] [address] 28630 COCAINE METABOLITE Negative Normal NEG [facility] Comment on above: Result Comment: Coca ine screening cut off value = 300 ng/mL Performed By: #### D GARCÍA ####[facility] ([id number])[address] [place] [address] 17599 ECSTASY Negative Normal [facility] Comment on above: Result Comment: Ecst asy screening cut off value = 500 ng/mLThis report is intended for use in clinicalmonitoring or management of patients. Performed By: #### D GARCÍA ####[facility] ([id number])[address] [place] [address] 34758 METHADONE Negative Normal NEG [facility] Comment on above: Result Comment: Meth adone screening cut off value = 300 ng/mL. Performed By: #### D GARCÍA ####[facility] ([id number])[address] [place] [address] 88569 OPIATES Negative Normal [facility] Comment on above: Result Comment: Opia josh screening cut off value = 300 ng/mLNOTE:This test is used for the detection ofcodeine, hydrocodone (>1000 ng/mL), morphineand hydromorphone (>900 ng/mL) in urine. Performed By: #### D GARCÍA ####[facility] ([id number])[address] [place] [address] 21298 OXYCODONE Negative Normal NEG [facility] Comment on above: Result Comment: Oxyc odone screening cut off value = 300 ng/mLNOTE:This test is used for the detection ofoxycodone and oxymorphone in urine. Performed By: #### D GARCÍA ####[facility] ([id number])[address] [place] [address] 76935 PHENCYCLIDINE Negative Normal NEG [facility] Comment on above: Result Comment: Phen cyclidine screening cut off value = 25 ng/mL Performed By: #### D AGRCÍA ####[facility] ([id number])[address] [place] [address] 13113 ETHANOLon 01-30-2024 Ethanol [Mass/Vol] mg/dL Normal 0.00-0.[address] [facility] Comment on above: Result Comment: This report is intended for use in clinicalmonitoring or management of patients. Performed By: #### C RANDELL QUIROGA, 5643-2, PINR, 42656-9 ####[facility] ([id number])[address] [place] [address] 65035#### [id number] ####[facility] ([id number])[address] [facility], [place] [address] PROTIME AND INRon 01-30-2024 INR Coag (PPP) [Relative time] 1.3 {INR} High 0.8-1.1 [facility] Comment on above: Performed By: #### C RANDELL QUIROGA, 5643-2, PINR, 73214-9 ####[facility] ([id number])[address] [place] [address] 14292#### [id number] ####[facility] ([id number])[address] [address] PT Coag (PPP) [Time] 14.9 s High 9.8-13.2 [facility] Comment on above: Result Comment: NEW REFERENCE RANGE Performed By: #### C MP, CBCA, 5643-2, PINR, 78319-4 ####[facility] ([id number])[address] [place] [address] 60135#### [id number] ####[facility] ([id number])[address] [address] aPTT Coag (PPP) [Time]on aPTT Coag (Bld) [Time] 33 s Normal 26-37 [facility] Comment on above: Result Comment: NEW REFERENCE RANGE Performed By: #### C MP, CBCA, 5643-2, PINR, 18482-7 ####[facility] ([id number])[address] [place] [address] 88958#### [id number] ####[facility] ([id number])[address] [address] Ambulatory Visit Summaryon 1 Ambulatory Visit Summary Ambulatory Visit Summary RONNITHORAlice Pope :1990 Visit Date:01/29/2024 Ambulatory Visit Instructions Your Diagnosis Frequent UTI Your Care Team Attending Physician - CYNTHIA GALLARDO PA-C Primary Care Physician - LINDSEY JENNINGS This Is Your Medications List nitrofurantoin (nitrofurantoin macrocrystals 50 mg Cap) Contact prescribing physician if questions or concerns acetaminophen acyclovir (acyclovir 400 mg Tab) albuterol (Albuterol (Eqv-ProAir HFA) 90 mcg/inh inhalation aerosol) allopurinol (allopurinol 100 mg Tab) amitriptyline (amitriptyline 50 mg Tab) aspirin (aspirin 81 mg oral capsule) bumetanide (bumetanide 2 mg Tab) carvedilol (carvedilol 6.25 mg Tab) cholecalciferol clindamycin cyanocobalamin cyclobenzaprine (cyclobenzaprine 10 mg Tab) dicyclomine (dicyclomine 10 mg Cap) emtricitabine-tenofov ir (Descovy 200 mg-25 mg oral tablet) famotidine (Pepcid 20 mg Tab) ferrous sulfate (FeroSul 325 mg oral tablet) ketoconazole topical (ketoconazole Top 2% Shampoo) magnesium oxide (magnesium oxide 400 mg Tab) medroxyPROGESTERone (Provera 10 mg Tab) methocarbamol (methocarbamol 750 mg Tab) mycophenolate mofetil (mycophenolate mofetil 500 mg oral tablet) potassium chloride (Potassium Chloride (Xwl-Zrmf-Cpm M20) 20 mEq oral tablet, extended release) predniSONE (predniSONE 20 mg Tab) rivaroxaban (Xarelto) rizatriptan (rizatriptan 10 mg Tab) voclosporin (Lupkynis 7.9 mg oral capsule) [Image Removed: STOP]Stop taking these medications amitriptyline (amitriptyline 25 mg Tab) cetirizine (cetirizine 10 mg Tab) ergocalciferol (ergocalciferol 50,000 intl units Cap) etonogestrel (Nexplanon) fluocinonide topical (fluocinonide topical 0.05% solution) ondansetron (ondansetron 4 mg Dis Tab) Procedures Performed section, Cholecystectomy, Incision and drainage of hematoma, Tubal ligation. Medications What How Much When Why Instructions New nitrofurantoin (nitrofurantoin macrocrystals 50 mg Cap) See instructions Frequent UTI Refills: 3 1 cap po after sexual activity to prevent UTI Pickup at [facility] [id number] Unchanged acetaminophen 325 Milligram Contact prescribing physician if questions or concerns Unchanged acyclovir (acyclovir 400 mg Tab) 1 Tablets By Mouth 5 times a day Contact prescribing physician if questions or concerns Unchanged albuterol (Albuterol (Eqv-ProAir HFA) 90 mcg/ inh inhalation aerosol) Contact prescribing physician if questions or concerns Unchanged allopurinol (allopurinol 100 mg Tab) Contact prescribing physician if questions or concerns Unchanged amitriptyline (amitriptyline 50 mg Tab) 1 Tablets By Mouth Once a day (at bedtime) Contact prescribing physician if questions or concerns Unchanged aspirin (aspirin 81 mg oral capsule) 1 Capsules By Mouth Contact prescribing physician if questions or concerns Unchanged bumetanide (bumetanide 2 mg Tab) Contact prescribing physician if questions or concerns Unchanged carvedilol (carvedilol 6.25 mg Tab) Contact prescribing physician if questions or concerns Unchanged cholecalciferol Contact prescribing physician if questions or concerns Unchanged clindamycin 150 Milligram Contact prescribing physician if questions or concerns Unchanged cyanocobalamin 1,000 Microgram Every day Contact prescribing physician if questions or concerns Unchanged cyclobenzaprine (cyclobenzaprine 10 mg Tab) 1 Tablets By Mouth As needed for for spasm Contact prescribing physician if questions or concerns Unchanged dicyclomine (dicyclomine 10 mg Cap) Contact prescribing physician if questions or concerns Unchanged emtricitabine-tenofov ir (Descovy 200 mg-25 mg oral tablet) Contact prescribing physician if questions or concerns Unchanged famotidine (Pepcid 20 mg Tab) 1 Tablets By Mouth Every day as needed for Control of stomach acid Contact prescribing physician if questions or concerns Unchanged ferrous sulfate (FeroSul 325 mg oral tablet) 1 Tablets By Mouth Every day Contact prescribing physician if questions or concerns Unchanged ketoconazole topical (ketoconazole Top 2% Shampoo) Contact prescribing physician if questions or concerns Unchanged magnesium oxide (magnesium oxide 400 mg Tab) Contact prescribing physician if questions or concerns Unchanged medroxyPROGESTERone (Provera 10 mg Tab) By Mouth Every day Contact prescribing physician if questions or concerns Unchanged methocarbamol (methocarbamol 750 mg Tab) 1 Tablets By Mouth Contact prescribing physician if questions or concerns Unchanged mycophenolate mofetil (mycophenolate mofetil 500 mg oral tablet) Contact prescribing physician if questions or concerns Unchanged potassium chloride (Potassium Chloride (Rnd-Rvwn-Ejc M20) 20 mEq oral tablet, extended release) Contact prescribing physician if questions or concerns Unchanged predniSONE (predniSONE 20 mg Tab) Contact prescribing physician if questions or concerns Unchanged rivaroxa (more content not included)... Normal [facility] Reminderson 01-29-2024 Reminders Reminders From: Dinorah Costa To: EU - Administrative; Sent: 01/29/2024 11:39:03 EDT Show up: 04/30/2025 11:39:00 EST Subject: Ambulatory Reminder Due Date/Time: 07/29/2025 11:38:00 EDT Reminder/Recall Patient needs scheduled with MARY for 18m f/u, due back in July of 2025 Normal [facility] CBC AND AUTO DIFFon 01-27-20 ABSOLUTE BASOPHIL 0.0 X10E9/L Normal 0.0-0.[address] [facility] Comment on above: Performed By: #### Nataliia ARGUELLES CMP, , THYR ####[facility] ([id number])[address] [place] [address] 03299 ABSOLUTE NEUTROPHIL 7.4 X10E9/L High 1.5-6.6 [facility] Comment on above: Performed By: #### Nataliia ARGUELLES CMP, , THYR ####[facility] ([id number])[address] [place] [address] 12683 Basophils/100 WBC (Bld) 0.3 % Normal [facility] Comment on above: Performed By: #### Nataliia ARGUELLES CMP, , THYR ####[facility] ([id number])[address] [place] [address] 48078 Eosinophils (Bld) [#/Vol] 0.0 10*3/uL Normal 0.0-0.4 [facility] Comment on above: Performed By: #### Nataliia ARGUELLES CMP, , THYR ####[facility] ([id number])[address] [place] [address] 31590 Eosinophils/100 WBC (Bld) 0.0 % Normal [facility] Comment on above: Performed By: #### Nataliia ARGUELLES CMP, , THYR ####[facility] ([id number])[address] [place] [address] 86091 Erythrocyte distribution width (RBC) [Ratio] 14.8 % Normal 11.5-15.0 [facility] Comment on above: Performed By: #### C CORINA ARGUELLES, , THYR ####[facility] ([id number])[address] [place] [address] 98860 Hematocrit (Bld) [Volume fraction] 35.7 % Normal 35-47 [facility] Comment on above: Performed By: #### C CORINA ARGUELLES, , THYR ####[facility] ([id number])[address] [place] [address] 53657 Hemoglobin (Bld) [Mass/Vol] 12.0 g/dL Normal 11.7-15.5 [facility] Comment on above: Performed By: #### C CORINA ARGUELLES, , THYR ####[facility] ([id number])[address] [place] [address] 96186 Lymphocytes (Bld) [#/Vol] 0.8 10*3/uL Low 1.0-3.5 [facility] Comment on above: Performed By: #### C CORINA ARGUELLES, , THYR ####[facility] ([id number])[address] [place] [address] 67801 Lymphocytes/100 WBC (Bld) 9.6 % Normal [facility] Comment on above: Performed By: #### C CORINA ARGUELLES, , THYR ####[facility] ([id number])[address] [place] [address] 80525 MCH (RBC) [Entitic mass] 29.9 pg Normal 27-34 [facility] Comment on above: Performed By: #### C CORINA ARGUELLES, , THYR ####[facility] ([id number])[address] [place] [address] 26448 MCHC (RBC) [Mass/Vol] 33.8 g/dL Normal 32-36 [facility] Comment on above: Performed By: #### C KINDRA, CMP, , THYR ####[facility] ([id number])[address] [place] [address] 08682 MCV (RBC) [Entitic vol] 89 fL Normal 80-100 [facility] Comment on above: Performed By: #### C KINDRA, CMP, , THYR ####[facility] ([id number])[address] [place] [address] 97239 Monocytes (Bld) [#/Vol] 0.6 10*3/uL Normal 0-0.9 [facility] Comment on above: Performed By: #### C KINDRA, CMP, , THYR ####[facility] ([id number])[address] [place] [address] 24440 Monocytes/100 WBC (Bld) 6.7 % Normal [facility] Comment on above: Performed By: #### Nataliia ARGUELLES, CMP, , THYR ####[facility] ([id number])[address] [place] [address] 16288 Neutrophils/100 WBC (Bld) 83.4 % Normal [facility] Comment on above: Performed By: #### Nataliia ARGUELLES, CMP, , THYR ####[facility] ([id number])[address] [place] [address] 81958 Platelet mean volume (Bld) [Entitic vol] 7.1 fL Normal 7-12 [facility] Comment on above: Performed By: #### C BCA, CMP, , THYR ####[facility] ([id number])[address] [place] [address] 35242 Platelets (Bld) [#/Vol] 321 10*3/uL Normal 150-450 [facility] Comment on above: Performed By: #### C BCA, CMP, , THYR ####[facility] ([id number])[address] [place] [address] 02949 RBC COUNT 4.03 X10E12/L Normal 3.80-5.20 [facility] Comment on above: Performed By: #### C BCA, CMP, , THYR ####[facility] ([id number])[address] [place] [address] 67218 WBC (Bld) [#/Vol] 8.8 10*3/uL Normal 4.0-11.[address] [facility] Comment on above: Performed By: #### C BCA, CMP, , THYR ####[facility] ([id number])[address] [place] [address] 447[address] [address] P[address] [facility] 01-27-2024 Albumin [Mass/Vol] 4.0 g/dL Normal 3.2-5.[address] [facility] Comment on above: Performed By: #### C BCA, CMP, , THYR ####[facility] ([id number])[address] [place] [address] 08115 ALP [Catalytic activity/Vol] 72 U/L Normal 39-130 [facility] Comment on above: Performed By: #### C BCA, CMP, , THYR ####[facility] ([id number])[address] [place] [address] 90647 ALT [Catalytic activity/Vol] 15 U/L Normal 0-31 [facility] Comment on above: Performed By: #### C BCA, CMP, , THYR ####[facility] ([id number])[address] [place] [address] 59074 Anion gap [Moles/Vol] 10 mmol/L Normal 5-15 [facility] Comment on above: Performed By: #### C BCA, CMP, , THYR ####[facility] ([id number])[address] [place] [address] [place] [address] AST [Catalytic activity/Vol] 14 U/L Normal 0-41 [facility] Comment on above: Performed By: #### C BCA, CMP, , THYR ####[facility] ([id number])[address] [place] [address] [place] [address] Bilirubin [Mass/Vol] 0.5 mg/dL Normal 0.3-1.2 [facility] Comment on above: Performed By: #### C BCA, CMP, , THYR ####[facility] ([id number])[address] [place] [address] 05724 Calcium [Mass/Vol] 8.5 mg/dL Normal 8.5-10.[address] [facility] Comment on above: Performed By: #### C BCA, CMP, , THYR ####[facility] ([id number])[address] [place] [address] 41132 Chloride [Moles/Vol] 104 mmol/L Normal 98-109 [facility] Comment on above: Performed By: #### C BCA, CMP, , THYR ####[facility] ([id number])[address] [place] [address] [place] [address] CO2 [Moles/Vol] 27 mmol/L Normal 22-32 [facility] Comment on above: Performed By: #### C BCA, CMP, , THYR ####[facility] ([id number])[address] [place] [address] [place] [address] Creatinine [Mass/Vol] 1.45 mg/dL High 0.40-1.00 [facility] Comment on above: Result Comment: METH OD TRACEABLE TO IDMS STANDARD Performed By: #### C BCA, CMP, , THYR ####[facility] ([id number])[address] [place] [address] 87773 GFR/1.73 sq M.predicted among non-blacks MDRD (S/P/Bld) [Vol rate/Area] 49 mL/min/{1.73_m2} Low >59 [facility] Comment on above: Result Comment: Repo rted eGFR is based on theCKD-EPI 2020 equation that doesnot use a race coefficient. Performed By: #### C KINDRA, CMP, , THYR ####[facility] ([id number])[address] [place] [address] 60786 Glucose [Mass/Vol] 97 mg/dL Normal 65-[address] [facility] Comment on above: Performed By: #### C CORINA ARGUELLES, , THYR ####[facility] ([id number])[address] [place] [address] 53608 Potassium [Moles/Vol] 3.9 mmol/L Normal 3.5-5.0 [facility] Comment on above: Performed By: #### C KINDRA CMP, , THYR ####[facility] ([id number])[address] [place] [address] 93004 Protein [Mass/Vol] 6.7 g/dL Normal 6.0-8.[address] [facility] Comment on above: Performed By: #### C BCA, CMP, , THYR ####[facility] ([id number])[address] [place] [address] 11939 Sodium [Moles/Vol] 141 mmol/L Normal 134-[address] [facility] Comment on above: Performed By: #### C BCA, CMP, , THYR ####[facility] ([id number])[address] [place] [address] 85850 Urea nitrogen [Mass/Vol] 31 mg/dL High 5-23 [facility] Comment on above: Performed By: #### C CORINA ARGUELLES, , THYR ####[facility] ([id number])[address] [place] [address]RAIN WO CONTon CT BRAIN WO CONT Normal [facility] MAGNESIUMon 01-27-2024 Magnesium [Mass/Vol] 1.8 mg/dL Normal 1.8-2.6 [facility] Comment on above: Performed By: #### C CORINA ARGUELLES, , THYR ####[facility] ([id number])[address] [place] [address] THYROID PROFILEon 01-27-2024 Free T4 [Mass/Vol] 0.91 ng/dL Normal 0.61-1.[address] [facility] Comment on above: Performed By: #### C CORINA ARGUELLES, , THYR ####[facility] ([id number])[address] [place] [address] 96582 TSH 0.50 uIU/mL Normal 0.49-4.67 [facility] Comment on above: Performed By: #### C CORINA ARGUELLES, , THYR ####[facility] ([id number])[address] [place] [address] 64740 XR HIPS BILAT W OR WO PELVIS [...] Montemayor MD on 01/18/2024 3:00 PM Normal [facility] CHLAMYDIA TRACHOMATIS AND NE ISSERIA GONORRHEA, TMAon 01-09-2024 CHLAMYDIA TRACHOMATIS DNA PROBE (PRESENCE) IN UNSP SPEC Negative Normal Negative [facility] Comment on above: Result Comment: No C hlamydia trachomatis rRNA Detected. The Aptima Combo 2 Assay is a FDA approved target amplification nucleic acid probe test that utilizes target capture for the in vitro qualitative detection and differentiation of ribosomal RNA (rRNA) from Chlamydia trachomatis (CT) and/or Neisseria gonorrhoeae (GC) to aid the diagnosis of chlamydial and/or gonococcal urogenital disease using the [place] System. The Aptima Combo 2 Assay involves target capture, target amplification by Plumbing Service Technician-Mediated Amplification (TMA), and the detection of the amplification products (amplicon) by the Hybridization Protection Assay (HPA). The internal process controls of the [employer] System monitor the target capture, amplification, and detection steps of the assay, this is not intended to control for sampling adequacy. Performed By: #### L [id number] ####[facility] (BEAKER)[address] [place] [address] NEISSERIA GONORRHOEAE DNA PROBE (PRESENCE) IN UNSP SPEC Negative Normal Negative [facility] Comment on above: Result Comment: No N eisseria gonorrhoeae rRNA Detected. The Aptima Combo 2 Assay is a FDA approved target amplification nucleic acid probe test that utilizes target capture for the in vitro qualitative detection and differentiation of ribosomal RNA (rRNA) from Chlamydia trachomatis (CT) and/or Neisseria gonorrhoeae (GC) to aid the diagnosis of chlamydial and/or gonococcal urogenital disease using the [employer] System. The Aptima Combo 2 Assay involves target capture, target amplification by Plumbing Service Technician-Mediated Amplification (TMA), and the detection of the amplification products (amplicon) by the Hybridization Protection Assay (HPA). The internal process controls of the [employer] System monitor the target capture, amplification, and detection steps of the assay, this is not intended to control for sampling adequacy. Performed By: #### L [id number] ####[facility] (BEAKER)[address] [place] [address] HIV COMBO 4Gon 01-09-2024 HIV COMBO 4G Negative Normal Negative [facility] Comment on above: Performed By: #### L [id number] ####[facility] (MEGAN)[address] [place] [address] Labon 01-09-2024 Lab [id number] Blanca Rudolph 1990 Provider Department [place] 01/09/2024 2243-[facility] RESOURCE DCC DRAW [facility] Family History Problem Relation Age of Onset Hypertension Mother Hypertension Mother's Sister Crohn's disease Mother's Sister Hypertension Maternal Grandmother Breast cancer Maternal Grandmother Kidney disease Other Migraines Other Family Status - Relation Status Age at Mother Mother's Sister Maternal Grandmother Other Normal [facility] Office Visiton 01-09-2024 Follow-up visit [id number] Blanca Rudolph 1990 Provider Department [place] 01/09/2024 Jason-ORIN PACHE[facility] Family History Problem Relation Age of Onset Hypertension Mother Hypertension Mother's Sister Crohn's disease Mother's Sister Hypertension Maternal Grandmother Breast cancer Maternal Grandmother Kidney disease Other Migraines Other Family Status - Relation Status Age at Mother Mother's Sister Maternal Grandmother Other Level of Service:63387 [place] OFFICE/OUTPATIENT ESTABLISHED MOD MDM 30 MIN Reason for Visit and Comments: Exposure to HIV [Other] Med Management [[id number]] Normal [facility] RPRon 01-09-2024 REAGIN AB PRESENCE IN SERUM BY RPR Reactive Abnormal Nonreactive [facility] Comment on above: Performed By: #### L [id number] ####[facility] (MEGAN)[address] [place] [address] RPR QUANTITATIVEon RPR QUANT 1:8 High <1:1 [facility] Comment on above: Order Comment: Previ ously reactive FTA, performed on 04/06/2023 Result Comment: The syphilis screen is a treponemal assay; patients with previously treated syphilis could be reactive on this assay, but nonreactive on the RPR Quant assay. Performed By: #### L [id number] #### [facility] (MEGAN) [address] [place] [address] URINALYSISon 01-09-2024 BILIRUBIN, TOTAL PRESENCE IN URINE Negative Normal Negative [facility] Comment on above: Performed By: #### L [id number] #### [facility] ([facility] [address] [place] [address] Clarity (U) Slightly Cloudy Abnormal Clear [facility] Comment on above: Performed By: #### L [id number] #### [facility] ([facility]) [address] [place] [address] Color (U) Yellow Normal Yellow [facility] Comment on above: Performed By: #### L [id number] #### [facility] ([facility]) [address] [place] [address] Glucose (U) [Mass/Vol] Negative Normal Negative [facility] Comment on above: Performed By: #### L [id number] #### [facility] ([facility]) [address] [place] [address] HEMOGLOBIN PRESENCE IN URINE Large Abnormal Negative [facility] Comment on above: Performed By: #### L [id number] #### [facility] ([facility]) [address] [place] [address] Ketones Ql (U) Negative Normal Negative [facility] Comment on above: Performed By: #### L [id number] #### [facility] ([facility]) [address] [place] [address] LEUKOCYTE ESTERASE PRESENCE IN URINE BY TEST STRIP Trace Abnormal Negative [facility] Comment on above: Performed By: #### L [id number] #### [facility] ([facility]) [address] [place] [address] NITRITE PRESENCE IN URINE Negative Normal Negative [facility] Comment on above: Performed By: #### L [id number] #### [facility] ([facility]) [address] [place] [address] pH (U) 5.0 [pH] Normal 5.0-8.0 [facility] Comment on above: Performed By: #### L [id number] #### [facility] ([facility]) [address] [place] [address] Protein (U) [Mass/Vol] Negative Normal Negative [facility] Comment on above: Performed By: #### L [id number] #### [facility] ([facility]) [address] [place] [address] Specific gravity (U) [Rel density] 1.009 Low 1.015-1.020 [facility] Comment on above: Performed By: #### L [id number] #### [facility] ([facility]) [address] [place] [address] URINALYSIS MICROSCOPICon CASTS IN URINE Normal [facility] Comment on above: Performed By: #### L [id number] #### [facility] ([facility]) [address] [place] [address] CRYSTALS IN URINE Normal [facility] Comment on above: Performed By: #### L [id number] #### [facility] ([facility]) [address] [place] [address] MUCUS (#/HPF) IN URINE SEDIMENT Occasional Normal None Seen, Occasional, Few [facility] Comment on above: Performed By: #### L [id number] #### [facility] ([facility]) [address] [place] [address] RBC (#/HPF) IN URINE SEDIMENT 51-100 Abnormal None Seen [facility] Comment on above: Performed By: #### L [id number] #### [facility] ([facility]) [address] [place] [address] SQUAMOUS EPITHELIAL CELLS (#/HPF) IN URINE SEDIMENT Many Abnormal None Seen, Occasional [facility] Comment on above: Performed By: #### L [id number] #### [facility] ([facility]) [address] [place] [address] WBC (LEUKOCYTE) (#/HPF) IN URINE SEDIMENT 3-5 Abnormal None Seen [facility] Comment on above: Performed By: #### L [id number] #### [facility] ([facility]) [address] [place] [address] CBC AND AUTO DIFFon 01-01-20 24 ABSOLUTE BASOPHIL 0.0 X10E9/L Normal 0.0-0.[address] [facility] Comment on above: Performed By: #### C BCA, 91549-0, CMP, 1987-08, 79167-3, 277- 1, UPCR, 2731-8, 74597-1, 4485-9, 4498-2, 54166-5 ####[facility] ([id number])[address], [address] [place] [address]#### 76424-2, 26638-6 ####[facility] ([id number])[address] [place] [address] ABSOLUTE NEUTROPHIL 5.6 X10E9/L Normal 1.5-6.6 [facility] Comment on above: Performed By: #### C BCA, 82739-9, CMP, 1987-08, , 1, UPCR, 2731-8, 32643-7, 4485-9, 4498-2, 18188-4 ####[facility] ([id number])[address], [address] [place] [address]#### 00160-8, 98308-2 ####[facility] ([id number])[address] [place] [address] Basophils/100 WBC (Bld) 0.3 % Normal [facility] Comment on above: Performed By: #### C BCA, 61644-2, CMP, 1987-08, 07687-8, 277- 1, UPCR, 2731-8, 44754-8, 4485-9, 4498-2, 13021-2 ####[facility] ([id number])[address], [address] [address]#### 72388-2, 32896-2 ####[facility] ([id number])[address] [place] [address] Eosinophils (Bld) [#/Vol] 0.0 10*3/uL Normal 0.0-0.4 [facility] Comment on above: Performed By: #### C KINDRA, 23195-2, CMP, 1987-08, , 277- 1, UPCR, 2731-8, 51016-0, 4485-9, 4498-2, 72926-6 ####[facility] ([id number])[address] [place] [address]#### 95866-6, 90381-5 ####[facility] ([id number])[address] [place] [address] Eosinophils/100 WBC (Bld) 0.5 % Normal [facility] Comment on above: Performed By: #### C KINDRA, 88354-9, CMP, 1987-08, , 2776- , UPCR, 273-8, 66195-0, 4485-9, 4498-2, 89214-5 ####[facility] ([id number])[address] [place] [address]#### 88140-3, 12420-6 ####[facility] ([id number])[address] [place] [address] Erythrocyte distribution width (RBC) [Ratio] 14.9 % Normal 11.5-15.0 [facility] Comment on above: Performed By: #### C KINDRA, 09109-4, CMP, 1987-08, , 2776- 1, UPCR, 2731-8, 95035-3, 4485-9, 4498-2, 93065-0 ####[facility] ([id number])[address], [address] [place] [address]#### 04514-6, 08428-1 ####[facility] ([id number])[address] [place] [address]397 Hematocrit (Bld) [Volume fraction] 37.7 % Normal 35-47 [facility] Comment on above: Performed By: #### C BCA, 87562-0, CMP, 1987-08, , 277- 1, UPCR, 2731-8, 26380-2, 4485-9, 4498-2, 18796-3 ####[facility] ([id number])[address], [address] [place] [address]#### 49230-8, 52975-4 ####[facility] ([id number])[address] [place] [address] Hemoglobin (Bld) [Mass/Vol] 12.4 g/dL Normal 11.7-15.5 [facility] Comment on above: Performed By: #### C KINDRA, 39269-8, CMP, 1987-08, , , UPCR, 273-8, 45174-0, 4485-9, 4498-2, 61428-5 ####[facility] ([id number])[address], [address] [place] [address]#### 72880-4, 89109-7 ####[facility] ([id number])[address] [place] [address] 11277 Lymphocytes (Bld) [#/Vol] 0.8 10*3/uL Low 1.0-3.5 [facility] Comment on above: Performed By: #### C BCA, 12398-4, CMP, 1987-08, , 277- 1, UPCR, 2731-8, 75588-1, 4485-9, 4498-2, 83400-0 ####[facility] ([id number])[address], [address] [place] [address]#### 66040-6, 39414-4 ####[facility] ([id number])[address] [place] [address] 16357 Lymphocytes/100 WBC (Bld) 10.8 % Normal [facility] Comment on above: Performed By: #### C BCA, 86836-7, CMP, 1987-08, , 277- 1, UPCR, 2731-8, 35499-6, 4485-9, 4498-2, 78024-5 ####[facility] ([id number])[address], [address] [address]#### 17265-0, 13331-7 ####[facility] ([id number])[address] [place] [address] 78480 MCH (RBC) [Entitic mass] 30.0 pg Normal 27-34 [facility] Comment on above: Performed By: #### C BCA, 13125-5, CMP, 1987-08, , 2776- 1, UPCR, 2731-8, 70457-0, 4485-9, 4498-2, 38549-8 ####[facility] ([id number])[address], [address] [place] [address]#### 27423-9, 49068-1 ####[facility] ([id number])[address] [place] [address] 83705 MCHC (RBC) [Mass/Vol] 33.0 g/dL Normal 32-36 [facility] Comment on above: Performed By: #### C BCA, 85320-6, CMP, 1987-08, , 2777- 1, UPCR, 2731-8, 50156-6, 4485-9, 4498-2, 63564-0 ####[facility] ([id number])[address], [address] [place] [address]#### 37787-2, 39175-7 ####[facility] ([id number])[address] [place] [address] 34395 MCV (RBC) [Entitic vol] 91 fL Normal 80-100 [facility] Comment on above: Performed By: #### C KINDRA, 64549-8, CMP, 1987-08, , 277- 1, UPCR, 2731-8, 68410-8, 4485-9, 4498-2, 44666-2 ####[facility] ([id number])[address], [address] [place], [place] [address]#### 64818-3, 32847-5 ####[facility] ([id number])[address] [place] [address] 49362 Monocytes (Bld) [#/Vol] 0.5 10*3/uL Normal 0-0.9 [facility] Comment on above: Performed By: #### C KINDRA, 18200-1, CMP, 1987-08, , 2776- , UPCR, 2731-8, 68190-6, 4485-9, 4498-2, 19345-9 ####[facility] ([id number])[address], [address] [place] [address]#### 79322-6, 07735-1 ####[facility] ([id number])[address] [place] [address] 17537 Monocytes/100 WBC (Bld) 7.8 % Normal [facility] Comment on above: Performed By: #### C BCA, 42284-9, CMP, 1987-08, , 277- 1, UPCR, 2731-8, 37251-9, 4485-9, 4498-2, 82142-7 ####[facility] ([id number])[address], [address] [place] [address]#### 72478-4, 15859-0 ####[facility] ([id number])[address] [place] [address] 81711 Neutrophils/100 WBC (Bld) 80.6 % Normal [facility] Comment on above: Performed By: #### C KINDRA, 63251-2, CMP, 1987-08, , 277- 1, UPCR, 2731-8, 27590-6, 4485-9, 4498-2, 27674-9 ####[facility] ([id number])[address], [address] [place] [address]#### 11980-7, 07002-2 ####[facility] ([id number])[address] [place] [address] 77406 Platelet mean volume (Bld) [Entitic vol] 7.7 fL Normal 7-12 [facility] Comment on above: Performed By: #### C KINDRA, 39685-4, CMP, 1987-08, , 277- 1, UPCR, 2731-8, 51236-2, 4485-9, 4498-2, 92979-2 ####[facility] ([id number])[address], [address] [place] [address]#### 41040-9, 34242-2 ####[facility] ([id number])[address] [place] [address] 45107 Platelets (Bld) [#/Vol] 277 10*3/uL Normal 150-450 [facility] Comment on above: Performed By: #### C KINDRA, 60792-6, CMP, 1987-08, 04909-2, 2777- 1, UPCR, 2731-8, 28770-2, 4485-9, 4498-2, 98883-9 ####[facility] ([id number])[address], [address] [place] [address]76#### 45296-0, 14589-3 ####[facility] ([id number])[address] [place] [address] 19375 RBC COUNT 4.15 X10E12/L Normal 3.80-5.20 [facility] Comment on above: Performed By: #### C BCA, 19877-3, CMP, 1987-08, 36524-9, 2777- 1, UPCR, 2731-8, 70343-4, 4485-9, 4498-2, 15160-2 ####[facility] ([id number])[address], [address] [place] [address]#### 46278-7, 49108-4 ####[facility] ([id number])[address] [place] [address] 10261 WBC (Bld) [#/Vol] 6.9 10*3/uL Normal 4.0-11.[address] [facility] Comment on above: Performed By: #### C BCA, 26685-5, CMP, 1987-08, 13308-3, 2777- 1, UPCR, 2731-8, 57939-4, 4485-9, 4498-2, 85530-4 ####[facility] ([id number])[address], [address] [place] [address]#### 93103-2, 29833-0 ####[facility] ([id number])[address] [place] [address] 31158 CHLAMYDIA/GC PCR, Uon 2023 CHLAMYDIA/GC PCR, U Normal [facility] Comment on above: Performed By: #### C GUPCR ####[facility] ([id number])[address], [address] [place] [address] [address] METABOLIC PANE [facility] 01-01-2024 Albumin [Mass/Vol] 3.7 g/dL Normal 3.2-5.[address] [facility] Comment on above: Performed By: #### C BCA, 11225-1, CMP, 1987-08, 90567-2, 2777- 1, UPCR, 2731-8, 24586-0, 4485-9, 4498-2, 16151-7 ####[facility] ([id number])[address] [facility], [address] [address]#### 13722-3, 33953-0 ####[facility] ([id number])[address] [place] [address] 93713 ALP [Catalytic activity/Vol] 62 U/L Normal 39-130 [facility] Comment on above: Performed By: #### C BCA, 48962-4, CMP, 1987-08, 04976-7, 2777- 1, UPCR, 2731-8, 05723-1, 4485-9, 4498-2, 96487-4 ####[facility] ([id number])[address] [address]#### 68028-7, 00636-2 ####[facility] ([id number])[address] [place] [address] 11053 ALT [Catalytic activity/Vol] 11 U/L Normal 0-31 [facility] Comment on above: Performed By: #### C BCA, 71469-3, CMP, 1987-08, 14721-9, 2777- 1, UPCR, 2731-8, 26727-2, 4485-9, 4498-2, 37171-7 ####[facility] ([id number])[address], [address] [address]#### 12554-7, 58985-2 ####[facility] ([id number])[address] [place] [address] 07744 Anion gap [Moles/Vol] 10 mmol/L Normal 5-15 [facility] Comment on above: Performed By: #### C BCA, 59111-3, CMP, 1987-08, 74492-5, 2777- 1, UPCR, 2731-8, 88933-8, 4485-9, 4498-2, 98025-4 ####[facility] ([id number])[address] [place] [address], [address] [place] [address]#### 21390-9, 12982-7 ####[facility] ([id number])[address] [place] [address] 33831 AST [Catalytic activity/Vol] 15 U/L Normal 0-41 [facility] Comment on above: Performed By: #### C BCA, 63097-1, CMP, 1987-08, , 2776- 1, UPCR, 2731-8, 23561-0, 4485-9, 4498-2, 44434-4 ####[facility] ([id number])[address] [place] [address], [address] [address]#### 63134-6, 53278-6 ####[facility] ([id number])[address] [place] [address] 31881 Bilirubin [Mass/Vol] 0.4 mg/dL Normal 0.3-1.2 [facility] Comment on above: Performed By: #### C BCA, 49171-1, CMP, 1987-08, 10313-8, 2777- 1, UPCR, 2731-8, 45883-0, 4485-9, 4498-2, 22760-2 ####[facility] ([id number])[address] [place] [address], [address] [place] [address]#### 74433-6, 68116-2 ####[facility] ([id number])[address] [place] [address] 98837 Calcium [Mass/Vol] 8.8 mg/dL Normal 8.5-10.[address] [facility] Comment on above: Performed By: #### C BCA, 42854-5, CMP, 1987-08, 26339-1, 2777- 1, UPCR, 2731-8, 08512-6, 4485-9, 4498-2, 98043-6 ####[facility] ([id number])[address] [facility], [address] [place] [address]#### 08376-0, 17366-7 ####[facility] ([id number])[address] [place] [address] 17041 Chloride [Moles/Vol] 103 mmol/L Normal 98-109 [facility] Comment on above: Performed By: #### C BCA, 22206-0, CMP, 1987-08, , 277- 1, UPCR, 2731-8, 14816-5, 4485-9, 4498-2, 68220-1 ####[facility] ([id number])[address] [facility], [address] [place] [address]#### 59235-3, 44505-8 ####[facility] ([id number])[address] [place] [address] 41049 CO2 [Moles/Vol] 30 mmol/L Normal 22-32 [facility] Comment on above: Performed By: #### C BCA, 55736-0, CMP, 1987-08, 65424-2, 2777- 1, UPCR, 2731-8, 35339-3, 4485-9, 4498-2, 91616-4 ####[facility] ([id number])[address], [address] [place] [address]05#### 86000-9, 39009-5 ####[facility] ([id number])[address] [place] [address] 97817 Creatinine [Mass/Vol] 1.44 mg/dL High 0.40-1.00 [facility] Comment on above: Result Comment: METH OD TRACEABLE TO IDMS STANDARD Performed By: #### C BCA, 56742-0, CMP, 1987-08, , 2777-1, UPCR, 2731-8, 79340-0, 4485-9, 4498-2, 78251-6 ####[facility] ([id number])[address] [place] [address]#### 01264-6, 73306-1 ####[facility] ([id number])[address] [place] [address] 98144 GFR/1.73 sq M.predicted among non-blacks MDRD (S/P/Bld) [Vol rate/Area] 50 mL/min/{1.73_m2} Low >59 [facility] Comment on above: Result Comment: Repo rted eGFR is based on theCKD-EPI 2020 equation that doesnot use a race coefficient. Performed By: #### C KINDRA, 46770-5, CMP, 1987-08, , 2776-, UPCR, 2731-8, 42019-4, 4485-9, 4498-2, 10016-8 ####[facility] ([id number])[address] [place] [address], [address] [address]#### 46743-1, 96098-9 ####[facility] ([id number])[address] [place] [address] 01291 Glucose [Mass/Vol] 99 mg/dL Normal 65-[address] [facility] Comment on above: Performed By: #### C BCA, 48761-7, CMP, 1987-08, 89863-1, 2777- 1, UPCR, 2731-8, 12595-3, 4485-9, 4498-2, 88945-8 ####[facility] ([id number])[address], [address] [place] [address]81#### 85824-6, 02682-7 ####[facility] ([id number])[address] [place] [address] 36295 Potassium [Moles/Vol] 3.8 mmol/L Normal 3.5-5.0 [facility] Comment on above: Performed By: #### C BCA, 50583-4, CMP, 1987-08, 59549-7, 2777- 1, UPCR, 2731-8, 41727-4, 4485-9, 4498-2, 74848-5 ####[facility] ([id number])[address], [address] [place] [address]#### 85256-7, 48252-3 ####[facility] ([id number])[address] [place] [address] 36106 Protein [Mass/Vol] 6.2 g/dL Normal 6.0-8.[address] [facility] Comment on above: Performed By: #### C BCA, 11321-7, CMP, 1987-08, , 277- 1, UPCR, 2731-8, 38236-1, 4485-9, 4498-2, 02482-7 ####[facility] ([id number])[address], [address] [place] [address]#### 89082-7, 60974-4 ####[facility] ([id number])[address] [place] [address] 26291 Sodium [Moles/Vol] 143 mmol/L Normal 134-[address] [facility] Comment on above: Performed By: #### C BCA, 84785-5, CMP, 1987-08, 78393-2, 2777- 1, UPCR, 2731-8, 56568-9, 4485-9, 4498-2, 72308-6 ####[facility] ([id number])[address], [address] [place] [address]#### 29268-3, 62399-0 ####[facility] ([id number])[address] [place] [address] 08608 Urea nitrogen [Mass/Vol] 22 mg/dL Normal 5-23 [facility] Comment on above: Performed By: #### C BCA, 12229-4, CMP, 1987-08, , 2777- 1, UPCR, 2731-8, 44722-9, 4485-9, 4498-2, 13054-1 ####[facility] ([id number])[address], [address] [place] [address]#### 18673-3, 84831-8 ####[facility] ([id number])[address] [place] [address] 89419 CRP [Mass/Vol]on 01-01-2024 C REACTIVE PROTEIN 0.3 mg/dL Normal 0.000-0.744 [facility] Comment on above: Performed By: #### C KINDRA, 26170-8, CMP, 1987-08, , 2776- 1, UPCR, 2731-8, 13881-9, 4485-9, 4498-2, 81336-1 ####[facility] ([id number])[address], [address] [place] [address] 20460#### 84280-1, 46257-0 ####[facility] ([id number])[address] [place] [address] 85468 Complement C3 [Mass/Vol]on 0 01-01-2024 COMPLEMENT C3 138 mg/dL Normal 86-184 [facility] Comment on above: Performed By: #### C BCA, 45870-5, CMP, 1987-08, , 2776- 1, UPCR, 2731-8, 08255-6, 4485-9, 4498-2, 69257-2 ####[facility] ([id number])[address], [address] [address]#### 13002-2, 99610-6 ####[facility] ([id number])[address] [place] [address] 01698 Complement C4 [Mass/Vol]on 0 01-01-2024 COMPLEMENT C4 26 mg/dL Normal 16-47 [facility] Comment on above: Performed By: #### C KINDRA, 92408-9, CMP, 1987-08, , 2776- , UPCR, 2731-8, 35476-4, 4485-9, 4498-2, 82002-3 ####[facility] ([id number])[address] [address]#### 72843-2, 66405-4 ####[facility] ([id number])[address] [place] [address]57 ESR Photometric method (Bld) [Velocity]on 01-01-2024 ESR, ERYTHROCYTE SEDIMENTATION RATE 7 mm/h Normal 0-20 [facility] Comment on above: Performed By: #### C BCA, 10409-4, CMP, 1987-08, , , UPCR, 273-8, 29316-6, 4485-9, 4498-2, 83206-4 ####[facility] ([id number])[address] [address]#### 71899-4, 83352-6 ####[facility] ([id number])[address] [place] [address] MAGNESIUMon 01-01-2024 Magnesium [Mass/Vol] 1.6 mg/dL Low 1.8-2.6 [facility] Comment on above: Performed By: #### C BCA, 59927-2, CMP, 1987-08, 74682-9, 2776- 1, UPCR, 2731-8, 18532-1, 4485-9, 4498-2, 55097-1 ####[facility] ([id number])[address] [facility], [address] [place] [address]#### 24519-9, 99741-8 ####[facility] ([id number])[address] [place] [address] Orders Onlyon 01-01-2024 Orders Only [id number] Blanca Rudolph 1990 F Date Provider Department Center 01/01/2024 JEFFERY AVITIA [facility] Family History Problem Relation Age of Onset Hypertension Mother Hypertension Mother's Sister Crohn's disease Mother's Sister Hypertension Maternal Grandmother Breast cancer Maternal Grandmother Kidney disease Other Migraines Other Family Status - Relation Status Age at Mother Mother's Sister Maternal Grandmother Other Normal [facility] PHOSPHORUSon 01-01-2024 Phosphate [Mass/Vol] 3.1 mg/dL Normal 2.4-4.9 [facility] Comment on above: Performed By: #### C BCA, 14548-4, CMP, 1987-08, , 2776- 1, UPCR, 2731-8, 05115-6, 4485-9, 4498-2, 79897-9 ####[facility] ([id number])[address] [facility], [address] [place] [address]#### 86919-4, 45944-6 ####[facility] ([id number])[address] [place] [address] PROTEIN CREAT RATIOon 2023 RANDOM URINE PROTEIN 90 mg/L Normal <120 [facility] Comment on above: Performed By: #### C BCA, 64422-3, CMP, 1987-08, 25976-7, 2777- 1, UPCR, 2731-8, 51047-0, 4485-9, 4498-2, 32680-3 ####[facility] ([id number])[address], [address] [place] [address]#### 90612-9, 54647-8 ####[facility] ([id number])[address] [place] [address] U/PRO/MACHINE STONECUTTER RATIO CALC 0.14 Normal <0.2 [facility] Comment on above: Result Comment: Neph rotic Syndrome is associated with ratios >3.5 Performed By: #### C KINDRA, 98101-8, CMP, 1987-08, 33094-8, 2777-1, UPCR, 2731-8, 15379-8, 4485-9, 4498-2, 38448-9 ####[facility] ([id number])[address] [facility], [address] [place] [address]#### 62662-6, 18424-4 ####[facility] ([id number])[address] [place] [address] URINE CREATININE,RDM 66.04 mg/dL Normal [facility] Comment on above: Performed By: #### C KINDRA, 91807-3, CMP, 1987-08, 09490-4, 2777- 1, UPCR, 2731-8, 26224-1, 4485-9, 4498-2, 43747-0 ####[facility] ([id number])[address] [facility], [address] [place] [address]#### 49233-7, 94915-6 ####[facility] ([id number])[address] [place] [address] Parathyrin.intact [Mass/Vol] on 01-01-2024 PTH INTACT 71 pg/mL Normal 12-88 [facility] Comment on above: Performed By: #### C KINDRA, 63343-5, CMP, 1987-, 26894-8, 2777- 1, UPCR, 2731-8, 53237-7, 4485-9, 4498-2, 54682-4 ####[facility] ([id number])[address] [place] [address], [address] [address]#### 68287-1, 61236-9 ####[facility] ([id number])[address] [place] [address] Reagin Ab RPR (S) [Titer]on 01-01-2024 RPR TITER, SERUM SEE COMMENTS 01/04/2024 09:[address] [facility] Comment on above: Result Comment: NOTE Test Result Flag Unit RefValue --------RPR, Titer, S 1:4 A Negative Results consistent with untreated or recently treated syphilis. Clinical correlation required. For additional information on interpretation of the syphilis reverse algorithm and results, see: [email or web address].[email or web address] Test Performed by: [facility][Note 3] [address] [place] [address] Wheelchair Van Operator First Responder: Bulmaro Bull Ph.D.; CLIA# [id number] Performed By: #### C KINDRA, 93852-9, CMP, 1987-, 57312-2, 2777-1, UPCR, 2731-8, 40943-5, 4485-9, 4498-2, 39301-8 ####[facility] ([id number])[address] [place] [address], [address] [address]#### 82126-9, 86063-6 ####[facility] ([id number])[address] [place] [address] Reagin Ab RPR Ql (S)on 12-31 RPR WITH REFLEX TO RTPPA Positive Abnormal Negative [facility] Comment on above: Result Comment: NOTE Specimen reflexed to determine RPR titer.For additional information on interpretation of thesyphilis reverse algorithm and results, see:[email or web address] [email or web address] Performed by:[facility][Note 3][address] [place], [place] [address]Tln Director: Bulmaro Bull Ph.D.; CLIA# [id number] Performed By: #### C BCA, 63547-9, CMP, 1987-08, , 2776-, UPCR, 2730-8, 25354-6, 4485-9, 4498-2, 28581-4 ####[facility] ([id number])[address] [place] [address], [address] [place] [address]#### 29319-9, 98639-0 ####[facility] ([id number])[address] [place] [address], [place] [address] T. pallidum IgG+IgM IA Ql (S )on 01-01-2024 Syphilis Total >8.0 High 0.0-0.8 [facility] Comment on above: Result Comment: REAC TIVEThis specimen will be sent to a reference lab for additional testing which includes RPR withreflex to TP-PA if RPR is negative. The RPR will help distinguish between infections withT.pallidum (syphilis) versus a falsely reactive treponemal antibody result.Please see the syphilis testing algorithm link below for more information.[email or web address] Performed By: #### C BCA, 41524-0, CMP, 1987-08, , 2776-1, UPCR, 2731-8, 80544-8, 4485-9, 4498-2, 56128-1 ####[facility] ([id number])[address], [address] [address]#### 67887-8, 25914-7 ####[facility] ([id number])[address] [place] [address], [place] [address] URINALYSISon 01-01-2024 Bilirubin Ql (U) Negative Normal NEG [facility] Comment on above: Performed By: #### U A ####[facility] ([id number])[address], [address] [address] BLOOD/HGB MODERATE Abnormal NEG [facility] Comment on above: Performed By: #### U A ####[facility] ([id number])[address] [address] Color (U) YELLOW Normal YELLOW [facility] Comment on above: Performed By: #### U A ####[facility] ([id number])[address] [address] Glucose Ql (U) Negative Normal NEG [facility] Comment on above: Performed By: #### U A ####[facility] ([id number])[address], [address] [place] [address] Hyaline casts LM Ql (Urine sed) 3 /lpf High 0-2 [facility] Comment on above: Performed By: #### U A ####[facility] ([id number])[address], [address] [place] [address] Ketones Ql (U) Negative Normal NEG [facility] Comment on above: Performed By: #### U A ####[facility] ([id number])[address], [address] [place] [address] Leukocyte esterase Test strip Ql (U) Negative Normal NEG [facility] Comment on above: Performed By: #### U A ####[facility] ([id number])[address], [address] [address] MUCOUS PRESENT Abnormal NONE [facility] Comment on above: Performed By: #### U A ####[facility] ([id number])[address] [address] [address] Nitrite Ql (U) Negative Normal NEG [facility] Comment on above: Performed By: #### U A ####[facility] ([id number])[address] [address], [place] [address] pH (U) 6.0 [pH] Normal 5.0-8.5 [facility] Comment on above: Performed By: #### U A ####[facility] ([id number])[address] [address] [place] [address] Protein Ql (U) Negative Normal NEG [facility] Comment on above: Performed By: #### U A ####[facility] ([id number])[address] [address] [place] [address], [place] [address] R.B.CELLS 5 /hpf Normal 0-5 [facility] Comment on above: Performed By: #### U A ####[facility] ([id number])[address] [address] [place] [address] Specific gravity (U) [Rel density] 1.011 Normal 1.003-1.035 [facility] Comment on above: Performed By: #### U A ####[facility] ([id number])[address] [address] [place] [address], [place] [address] SQUAMOUS EPITHELIUM 1 /hpf Normal 0-5 [facility] Comment on above: Performed By: #### U A ####[facility] ([id number])[address] [address], [place] [address] TURBIDITY CLEAR Normal CLEAR [facility] Comment on above: Performed By: #### U A ####[facility] ([id number])[address] [address] Urobilinogen (U) [Mass/Vol] mg/dL Normal <1.1 [facility] Comment on above: Performed By: #### U A ####[facility] ([id number])[address] [address] W.B.CELLS 1 /hpf Normal 0-5 [facility] Comment on above: Performed By: #### U A ####[facility] ([id number])[address] [place] [address] Vitamin D+Metabolites [Mass/ Vol]on 01-01-2024 VITAMIN D 25 HYD TOT 44.5 ng/mL Normal 30-100 [facility] Comment on above: Result Comment: Amber min D status 25 [place] Vitamin D Deficiency <20 ng/mLInsufficiency 20-29 ng/mLSufficiency 30-100 ng/mLToxicity >100 ng/mLNOTE: A pediatric reference range has not beenestablished by the drywall installer of this kit.The [place] [employer] recommendsa Vitamin D level of = or >20ng/mL in infantsand children. Performed By: #### C BCA, 11212-0, CMP, 1988-5, 27986-7, 2777-1, UPCR, 2731-8, 34160-5, 4485-9, 4498-2, 62950-4 ####[facility] ([id number])[address] [address]#### 78683-5, 38885-9 ####[facility] ([id number])[address] [place] [address] CHLAMYDIA/GC PCR, Uon 2023 CHLAMYDIA/GC PCR, U Normal [facility] Comment on above: Performed By: #### C GUPCR ####[facility] ([id number])[address] [place] [address], [address] [place] [address] HCG ( test) Ql (U)o n 12-24-2023 Beta HCG ( test) Ql (U) Negative Normal NEG [facility] Comment on above: Performed By: #### 2 106-3 ####[facility] ([id number])[address] [place] [address] URN MACROSCOPIC NURon 2023 BILIRUBIN BRENDEN Negative Normal [facility] Comment on above: Performed By: #### N UM ####[facility] ([id number])[address] [place] [address] BLOOD/HGB BRENDEN MODERATE Abnormal NEG [facility] Comment on above: Performed By: #### N UM ####[facility] ([id number])[address] [place] [address] GLUCOSE BRENDEN Negative Normal [facility] Comment on above: Performed By: #### N UM ####[facility] ([id number])[address] [place] [address] KETONES BRENDEN Negative Normal NEG [facility] Comment on above: Performed By: #### N UM ####[facility] ([id number])[address] [place] [address] LEUKOCYTE ESTERASE BRENDEN Negative Normal [facility] Comment on above: Performed By: #### N UM ####[facility] ([id number])[address] [place] [address] [place] [address] NITRITE BRENDEN Negative Normal NEG [facility] Comment on above: Performed By: #### N UM ####[facility] ([id number])[address] [place] [address] PH BRENDEN 5.5 Normal 5.0-8.5 [facility] Comment on above: Performed By: #### N UM ####[facility] ([id number])[address] [place] [address] PROTEIN BRENDEN 30 mg/dL Abnormal NEG [facility] Comment on above: Performed By: #### N UM ####[facility] ([id number])[address] [place] [address] SPECIFIC GRAVITY BRENDEN 1.020 Normal 1.003-1.035 [facility] Comment on above: Performed By: #### N UM ####[facility] ([id number])[address] [place] [address] UROBILINOGEN BRENDEN 0.2 eu/dL Normal <1.1 [facility] Comment on above: Performed By: #### N UM ####[facility] ([id number])[address] [place] [address] XR Foot - right 3 [facility] Result: AP, medial oblique, lateral views are weight-bearing. They reveal significant metatarsus adductus. There is large os trigonum noted over the posterolateral talar process. [facility] [employer] [facility] [employer] Radiology Study observation (narrative) [facility] MR BRAIN IAC W WO CONTon MR BRAIN IAC W WO CONT Normal [facility] 36on 12-12-2023 36 Approving, but needs appt for additional refills. Normal [facility] HCG ( test) Ql (U)o n 11-12-2023 Beta HCG ( test) Ql (U) Negative Normal NEG [facility] Comment on above: Performed By: #### 2 106-3 ####[facility] ([id number])[address] [place] [address] URN MACROSCOPIC NURon 2023 BILIRUBIN BRENDEN Negative Normal NEG [facility] Comment on above: Performed By: #### N UM ####[facility] ([id number])[address] [place] [address] [place] [address] BLOOD/HGB BRENDEN Large Abnormal NEG [facility] Comment on above: Performed By: #### N UM ####[facility] ([id number])[address] [place] [address] [place] [address] GLUCOSE BRENDEN Negative Normal NEG [facility] Comment on above: Performed By: #### N UM ####[facility] ([id number])[address] [place] [address] [place] [address] KETONES BRENDEN Negative Normal NEG [facility] Comment on above: Performed By: #### N UM ####[facility] ([id number])[address] [place] [address] [place] [address] LEUKOCYTE ESTERASE BRENDEN Trace Abnormal NEG [facility] Comment on above: Performed By: #### N UM ####[facility] ([id number])[address] [place] [address] [place] [address] NITRITE BRENDEN Negative Normal NEG [facility] Comment on above: Performed By: #### N UM ####[facility] ([id number])[address] [place] [address] PH BRENDEN 5.5 Normal 5.0-8.5 [facility] Comment on above: Performed By: #### N UM ####[facility] ([id number])[address] [place] [address] PROTEIN BRENDEN Negative Normal NEG [facility] Comment on above: Performed By: #### N UM ####[facility] ([id number])[address] [place] [address] [place] [address] SPECIFIC GRAVITY BRENDEN 1.010 Normal 1.003-1.035 [facility] Comment on above: Performed By: #### N UM ####[facility] ([id number])[address] [place] [address] UROBILINOGEN BRENDEN 0.2 eu/dL Normal <1.1 [facility] Comment on above: Performed By: #### N UM ####[facility] ([id number])[address] [place] [address] 29on 10-05-2023 29 Addended by: TAZ SANDERS on: 10/08/2023 07:11 AM Modules accepted: Orders Normal [facility] CBC WITH AUTO DIFFERENTIALon 10-05-2023 Basophils (Bld) [#/Vol] 0.03 10*3/uL Normal 0.00-0.20 [facility] Comment on above: Performed By: #### L [id number] #### [facility] (BEAKER) [address] [place] [address] Basophils/100 WBC (Bld) 0.3 % Normal 0.0-1.0 [facility] Comment on above: Performed By: #### L [id number] #### [facility] (AKER) [address] [place] [address] Eosinophils (Bld) [#/Vol] 0.00 10*3/uL Normal 0.00-0.50 [facility] Comment on above: Performed By: #### L [id number] #### [facility] (BEAKER) [address] [place] [address] Eosinophils/100 WBC (Bld) 0.0 % Normal 0.0-6.0 [facility] Comment on above: Performed By: #### L [id number] #### [facility] (BEAKER) [address] [place] [address] Erythrocyte distribution width (RBC) [Ratio] 12.6 % Normal 11.5-15.0 [facility] Comment on above: Performed By: #### L [id number] #### [facility] (BEAKER) [address] [place] [address] ERYTHROCYTE MEAN CORPUSCULAR HEMOGLOBIN CONCENTRATION (G/DL) BY AUTOMATED 33.2 g/dL Normal 32.0-35.0 [facility] Comment on above: Performed By: #### L [id number] #### [facility] [address] [place] [address] Hematocrit (Bld) [Volume fraction] 29.8 % Low 36.0-48.0 [facility] Comment on above: Performed By: #### L [id number] #### [facility] ([facility]) [address] [place] [address] Hemoglobin (Bld) [Mass/Vol] 9.9 g/dL Low 12.0-15.0 [facility] Comment on above: Performed By: #### L [id number] #### [facility] ([facility] [address] [place] [address] Immature granulocytes (Bld) [#/Vol] 0.04 10*3/uL Normal 0.00-0.20 [facility] Comment on above: Performed By: #### L [id number] #### [facility] [address] [place] [address] Immature granulocytes/100 WBC (Bld) 0.4 % Normal 0.0-1.0 [facility] Comment on above: Performed By: #### L [id number] #### [facility] (BEAKER) [address] [place] [address] Lymphocytes (Bld) [#/Vol] 0.97 10*3/uL Low 1.20-4.00 [facility] Comment on above: Performed By: #### L [id number] #### [facility] (BEAKER) [address] [place] [address] Lymphocytes/100 WBC (Bld) 10.7 % Low 20.0-45.0 [facility] Comment on above: Performed By: #### L [id number] #### [facility] (BEAKER) [address] [place] [address] MCH (RBC) [Entitic mass] 30.4 pg Normal 27.0-33.0 [facility] Comment on above: Performed By: #### L [id number] #### [facility] ([facility] [address] [place] [address] MCV (RBC) [Entitic vol] 91.4 fL Normal 82.0-98.0 [facility] Comment on above: Performed By: #### L [id number] #### [facility] ([facility] [address] [place] [address] Monocytes (Bld) [#/Vol] 0.46 10*3/uL Normal 0.10-1.00 [facility] Comment on above: Performed By: #### L [id number] #### [facility] ([facility]) [address] [place] [address] Monocytes/100 WBC (Bld) 5.1 % Normal 5.0-12.0 [facility] Comment on above: Performed By: #### L [id number] #### [facility] ([facility]) [address] [place] [address] Neutrophils (Bld) [#/Vol] 7.55 10*3/uL Normal 1.60-7.60 [facility] Comment on above: Performed By: #### L [id number] #### [facility] ([facility] [address] [place] [address] Neutrophils/100 WBC (Bld) 83.5 % High 40.0-72.0 [facility] Comment on above: Performed By: #### L [id number] #### [facility] ([facility] [address] [place] [address] NRBC (PER 100 WBCS) BY AUTOMATED COUNT 0.0 % Normal 0 [facility] Comment on above: Performed By: #### L [id number] #### [facility] (BEAKER) [address] [place] [address] PLATELETS (10*3/UL) IN BLOOD AUTOMATED COUNT 378 10*3/uL Normal 150-400 [facility] Comment on above: Performed By: #### L [id number] #### [facility] ([facility] [address] [place] [address] RBC (Bld) [#/Vol] 3.26 10*6/uL Low 3.80-5.00 [facility] Comment on above: Performed By: #### L [id number] #### [facility] ([facility] [address] [facility] [place] [address] WBC (Bld) [#/Vol] 9.05 10*3/uL Normal 4.00-10.60 [facility] Comment on above: Performed By: #### L [id number] #### [facility] ([facility]) [address] [place] [address] CHLAMYDIA TRACHOMATIS AND NE ISSERIA GONORRHEA, TMAon 10-05-2023 CHLAMYDIA TRACHOMATIS DNA PROBE (PRESENCE) IN UNSP SPEC Negative Normal Negative [facility] Comment on above: Result Comment: No C hlamydia trachomatis rRNA Detected. The Aptima Combo 2 Assay is a FDA approved target amplification nucleic acid probe test that utilizes target capture for the in vitro qualitative detection and differentiation of ribosomal RNA (rRNA) from Chlamydia trachomatis (CT) and/or Neisseria gonorrhoeae (GC) to aid the diagnosis of chlamydial and/or gonococcal urogenital disease using the [employer] System. The Aptima Combo 2 Assay involves target capture, target amplification by Plumbing Service Technician-Mediated Amplification (TMA), and the detection of the amplification products (amplicon) by the Hybridization Protection Assay (HPA). The internal process controls of the [employer] System monitor the target capture, amplification, and detection steps of the assay, this is not intended to control for sampling adequacy. Performed By: #### L [id number] ####[facility] (BEAKER)[address] [place] [address] NEISSERIA GONORRHOEAE DNA PROBE (PRESENCE) IN UNSP SPEC Negative Normal Negative [facility] Comment on above: Result Comment: No N eisseria gonorrhoeae rRNA Detected. The Aptima Combo 2 Assay is a FDA approved target amplification nucleic acid probe test that utilizes target capture for the in vitro qualitative detection and differentiation of ribosomal RNA (rRNA) from Chlamydia trachomatis (CT) and/or Neisseria gonorrhoeae (GC) to aid the diagnosis of chlamydial and/or gonococcal urogenital disease using the [employer] System. The Aptima Combo 2 Assay involves target capture, target amplification by Plumbing Service Technician-Mediated Amplification (TMA), and the detection of the amplification products (amplicon) by the Hybridization Protection Assay (HPA). The internal process controls of the [employer] System monitor the target capture, amplification, and detection steps of the assay, this is not intended to control for sampling adequacy. Performed By: #### L [id number] ####[facility] (BEAKER)[address] [place] [address] CHLAMYDIA TRACHOMATIS DNA PROBE (PRESENCE) IN UNSP SPEC Negative Normal Negative [facility] Comment on above: Result Comment: No C hlamydia trachomatis rRNA Detected. The Aptima Combo 2 Assay is a FDA approved target amplification nucleic acid probe test that utilizes target capture for the in vitro qualitative detection and differentiation of ribosomal RNA (rRNA) from Chlamydia trachomatis (CT) and/or Neisseria gonorrhoeae (GC) to aid the diagnosis of chlamydial and/or gonococcal urogenital disease using the [employer] System. The Aptima Combo 2 Assay involves target capture, target amplification by Plumbing Service Technician-Mediated Amplification (TMA), and the detection of the amplification products (amplicon) by the Hybridization Protection Assay (HPA). The internal process controls of the [employer] System monitor the target capture, amplification, and detection steps of the assay, this is not intended to control for sampling adequacy. Performed By: #### L [id number] ####[facility] (BEAKER)[address] , [place] [address] NEISSERIA GONORRHOEAE DNA PROBE (PRESENCE) IN UNSP SPEC Negative Normal Negative [facility] Comment on above: Result Comment: No N eisseria gonorrhoeae rRNA Detected. The Aptima Combo 2 Assay is a FDA approved target amplification nucleic acid probe test that utilizes target capture for the in vitro qualitative detection and differentiation of ribosomal RNA (rRNA) from Chlamydia trachomatis (CT) and/or Neisseria gonorrhoeae (GC) to aid the diagnosis of chlamydial and/or gonococcal urogenital disease using the [employer] System. The Aptima Combo 2 Assay involves target capture, target amplification by Plumbing Service Technician-Mediated Amplification (TMA), and the detection of the amplification products (amplicon) by the Hybridization Protection Assay (HPA). The internal process controls of the [employer] System monitor the target capture, amplification, and detection steps of the assay, this is not intended to control for sampling adequacy. Performed By: #### L [id number] ####[facility] ([facility])[address] [facility] [address] COMPREHENSIVE METABOLIC PANE Gerardo 10-05-2023 Albumin [Mass/Vol] 4.0 g/dL Normal 3.5-5.7 [facility] Comment on above: Performed By: #### L [id number] #### [facility] ([facility]) [address] [place] [address] ALP [Catalytic activity/Vol] 51 U/L Normal 34-104 [facility] Comment on above: Performed By: #### L [id number] #### [facility] ([facility]) [address] [place] [address] ALT [Catalytic activity/Vol] 7 U/L Normal 7-52 [facility] Comment on above: Performed By: #### L [id number] #### [facility] ([facility]) [address] [place] [address] Anion gap [Moles/Vol] 12 mmol/L Normal 7-20 [facility] Comment on above: Performed By: #### L [id number] #### [facility] ([facility]) [address] [place] [address] AST [Catalytic activity/Vol] 9 U/L Low 13-39 [facility] Comment on above: Performed By: #### L [id number] #### [facility] ([facility]) [address] [place] [address] Bilirubin [Mass/Vol] 0.2 mg/dL Low 0.3-1.0 [facility] Comment on above: Performed By: #### L [id number] #### [facility] ([facility]ER) [address] [place] [address] Calcium [Mass/Vol] 8.2 mg/dL Low 8.6-10.3 [facility] Comment on above: Performed By: #### L [id number] #### [facility] ([facility] [address] [place] [address] Chloride [Moles/Vol] 102 mmol/L Normal 98-107 [facility] Comment on above: Performed By: #### L [id number] #### [facility] ([facility]) [address] [place] [address] CO2 [Moles/Vol] 28 mmol/L Normal 21-31 [facility] Comment on above: Performed By: #### L [id number] #### [facility] ([facility]) [address] [place] [address] Creatinine [Mass/Vol] 1.73 mg/dL High 0.60-1.20 [facility] Comment on above: Performed By: #### L [id number] #### [facility] ([facility]) [address] [place] [address] GLOMERULAR FILTRATION RATE ML/MIN/1.73 SQ M.PREDICTED 40.0 mL/min/1.73m*2 Low >60.0 [facility] Comment on above: Result Comment: The [facility]???s estimated glomerular filtration rate (eGFR) will no [...] group of individuals. Performed By: #### L [id number] #### [facility] ([facility] [address] [place] [address] Glucose [Mass/Vol] 109 mg/dL High 70-100 [facility] Comment on above: Performed By: #### L [id number] #### [facility] ([facility]) [address] [place] [address] Potassium [Moles/Vol] 4.0 mmol/L Normal 3.5-5.1 [facility] Comment on above: Performed By: #### L [id number] #### [facility] ([facility]) [address] [place] [address] Protein [Mass/Vol] 6.6 g/dL Normal 6.0-8.3 [facility] Comment on above: Performed By: #### L [id number] #### [facility] ([facility]) [address] [place] [address] Sodium [Moles/Vol] 138 mmol/L Normal 136-145 [facility] Comment on above: Performed By: #### L [id number] #### [facility] ([facility]) [address] [place] [address] Urea nitrogen [Mass/Vol] 26 mg/dL High 7-25 [facility] Comment on above: Performed By: #### L [id number] #### [facility] ([facility]) [address] [place] [address] UREA NITROGEN/CREATININE (MASS RATIO) IN SER/PLAS 15.0 Normal [facility] Comment on above: Performed By: #### L [id number] #### [facility] ([facility]) [address] [place] [address] HIV COMBO 4Gon 10-05-2023 HIV COMBO 4G Negative Normal Negative [facility] Comment on above: Performed By: #### L [id number] #### [facility] ([facility] [address] [place] [address] Labon 10-05-2023 Lab [id number] Blanca Rudolph 1990 F Date Provider Department Center 10/05/20233-[facility] LAB RESOURCE [facility] DRAW [facility] Family History Problem Relation Age of Onset Hypertension Mother Hypertension Mother's Sister Crohn's disease Mother's Sister Hypertension Maternal Grandmother Breast cancer Maternal Grandmother Kidney disease Other Migraines Other Family Status - Relation Status Age at Mother Mother's Sister Maternal Grandmother Other Normal [facility] Office Visiton 10-05-2023 Follow-up visit [id number] Blanca Rudolph 1990 F Date Provider Department Center 10/05/2023 Jason-ORIN PACHECO [facility] Family History Problem Relation Age of Onset Hypertension Mother Hypertension Mother's Sister Crohn's disease Mother's Sister Hypertension Maternal Grandmother Breast cancer Maternal Grandmother Kidney disease Other Migraines Other Family Status - Relation Status Age at Mother Mother's Sister Maternal Grandmother Other Level of Service:98788 [place] OFFICE/OUTPATIENT ESTABLISHED MOD MDM 30 MIN Reason for Visit and Comments: Exposure to HIV [Other] Normal [facility] RPRon 10-05-2023 REAGIN AB PRESENCE IN SERUM BY RPR Reactive Abnormal Nonreactive [facility] Comment on above: Performed By: #### L [id number] #### [facility] ([facility]) [address] [place] [address] RPR QUANTITATIVEon RPR QUANT 1:16 High <1:1 [facility] Comment on above: Order Comment: Previ ously Reactive FTA on 04/06/2023. Result Comment: The syphilis screen is a treponemal assay; patients with previously treated syphilis could be reactive on this assay, but nonreactive on the RPR Quant assay. Performed By: #### L [id number] #### [facility] ([facility]) [address] [place] [address] URINALYSISon 10-05-2023 BILIRUBIN, TOTAL PRESENCE IN URINE Negative Normal Negative [facility] Comment on above: Performed By: #### L [id number] #### [facility] ([facility]) [address] [place] [address] Clarity (U) Slightly Cloudy Abnormal [facility] Comment on above: Performed By: #### L [id number] #### [facility] ([facility]) [address] [place] [address] Color (U) Yellow Normal Yellow [facility] Comment on above: Performed By: #### L [id number] #### [facility] ([facility]) [address] [place] [address] Glucose (U) [Mass/Vol] Negative Normal Negative [facility] Comment on above: Performed By: #### L [id number] #### [facility] ([facility]) [address] [place] [address] HEMOGLOBIN PRESENCE IN URINE Large Abnormal Negative [facility] Comment on above: Performed By: #### L [id number] #### [facility] ([facility]) [address] [place] [address] Ketones Ql (U) Negative Normal Negative [facility] Comment on above: Performed By: #### L [id number] #### [facility] ([facility]) [address] [place] [address] LEUKOCYTE ESTERASE PRESENCE IN URINE BY TEST STRIP Moderate Abnormal Negative [facility] Comment on above: Performed By: #### L [id number] #### [facility] ([facility]) [address] [place] [address] NITRITE PRESENCE IN URINE Negative Normal Negative [facility] Comment on above: Performed By: #### L [id number] #### [facility] ([facility]) [address] [place] [address] pH (U) 5.0 [pH] Normal 5.0-8.0 [facility] Comment on above: Performed By: #### L [id number] #### [facility] ([facility]) [address] [place] [address] Protein (U) [Mass/Vol] 100 mg/dL Abnormal Negative [facility] Comment on above: Performed By: #### L [id number] #### [facility] ([facility]) [address] [place] [address] Specific gravity (U) [Rel density] 1.012 Low 1.015-1.020 [facility] Comment on above: Performed By: #### L [id number] #### [facility] ([facility] [address] [place] [address] URINALYSIS MICROSCOPICon AMORPHOUS CRYSTALS (#/HPF) IN URINE Few Abnormal None Seen [facility] Comment on above: Performed By: #### L [id number] #### [facility] ([facility]) [address] [place] [address] CASTS IN URINE Present Abnormal None Seen [facility] Comment on above: Performed By: #### L [id number] #### [facility] ([facility]) [address] [place] [address] CRYSTALS IN URINE Normal [facility] Comment on above: Performed By: #### L [id number] #### [facility] ([facility]) [address] [place] [address] HYALINE CASTS /LPF IN URINE SEDIMENT BY MICROSCOPY 4 /LPF High <1 [facility] Comment on above: Performed By: #### L [id number] #### [facility] ([facility]) [address] [place] [address] MUCUS (#/HPF) IN URINE SEDIMENT Occasional Normal None Seen, Occasional, Few [facility] Comment on above: Performed By: #### L [id number] #### [facility] ([facility]) [address] [place] [address] RBC (#/HPF) IN URINE SEDIMENT 21-50 Abnormal None Seen [facility] Comment on above: Performed By: #### L [id number] #### [facility] ([facility]) [address] [place] [address] SQUAMOUS EPITHELIAL CELLS (#/HPF) IN URINE SEDIMENT Many Abnormal None Seen, Occasional [facility] Comment on above: Performed By: #### L [id number] #### [facility] ([facility]) [address] [place] [address] WBC (LEUKOCYTE) (#/HPF) IN URINE SEDIMENT 21-50 Abnormal None Seen [facility] Comment on above: Performed By: #### L [id number] #### [facility] ([facility]) [address] [place] [address] CBC AND AUTO DIFFon 10-02-19 24 ABSOLUTE BASOPHIL 0.0 X10E9/L Normal 0.0-0.[address] [facility] Comment on above: Performed By: #### Nataliia ARGUELLES, 04789-3, [facility], 1987-08 ####[facility] ([id number])[address], [place] [address] ABSOLUTE NEUTROPHIL 6.7 X10E9/L High 1.5-6.6 [facility] Comment on above: Performed By: #### Nataliia ARGUELLES, 68550-7, [facility], 1987-08 ####[facility] ([id number])[address], [address], [place] [address] Basophils/100 WBC (Bld) 0.3 % Normal [facility] Comment on above: Performed By: #### Nataliia ARGUELLES, 19841-4, [facility], 1987-08 ####[facility] ([id number])[address] [address], [place] [address] Eosinophils (Bld) [#/Vol] 0.0 10*3/uL Normal 0.0-0.4 [facility] Comment on above: Performed By: #### Nataliia ARGUELLES, 15604-0, [facility], 1987-08 ####[facility] ([id number])[address] [address], [place] [address] Eosinophils/100 WBC (Bld) 0.4 % Normal [facility] Comment on above: Performed By: #### Nataliia ARGUELLES, 25070-8, [facility], 1987-08 ####[facility] ([id number])[address], [place] [address] Erythrocyte distribution width (RBC) [Ratio] 13.2 % Normal 11.5-15.0 [facility] Comment on above: Performed By: #### Nataliia ARGUELLES 11546-7, [facility], 1987-08 ####[facility] ([id number])[address] [address] [place] [address] Hematocrit (Bld) [Volume fraction] 29.5 % Low 35-47 [facility] Comment on above: Performed By: #### Nataliia ARGUELLES 90149-7, [facility], 1987-08 ####[facility] ([id number])[address] [address] Hemoglobin (Bld) [Mass/Vol] 10.0 g/dL Low 11.7-15.5 [facility] Comment on above: Performed By: #### Nataliia ARGUELLES 33955-3, [facility], 1987-08 ####[facility] ([id number])[address] [address] Lymphocytes (Bld) [#/Vol] 0.6 10*3/uL Low 1.0-3.5 [facility] Comment on above: Performed By: #### Nataliia ARGUELLES 10793-6, [facility], 1987-08 ####[facility] ([id number])[address] [address] Lymphocytes/100 WBC (Bld) 7.6 % Normal [facility] Comment on above: Performed By: #### Nataliia ARGUELLES 23103-5, [facility], 1987-08 ####[facility] ([id number])[address] [address] MCH (RBC) [Entitic mass] 31.0 pg Normal 27-34 [facility] Comment on above: Performed By: #### Nataliia ARGUELLES 34834-7, [facility], 1987-08 ####[facility] ([id number])[address] [place] [address] MCHC (RBC) [Mass/Vol] 33.8 g/dL Normal 32-36 [facility] Comment on above: Performed By: #### Nataliia ARGUELLES, 07293-7, [facility], 1987-08 ####[facility] ([id number])[address] [address] MCV (RBC) [Entitic vol] 92 fL Normal 80-100 [facility] Comment on above: Performed By: #### Nataliia ARGUELLES, 39984-6, [facility], 1987-08 ####[facility] ([id number])[address] [address] Monocytes (Bld) [#/Vol] 0.4 10*3/uL Normal 0-0.9 [facility] Comment on above: Performed By: #### Nataliia ARGUELLES 63139-4, [facility], 1987-08 ####[facility] ([id number])[address] [address] [place] [address] Monocytes/100 WBC (Bld) 5.8 % Normal [facility] Comment on above: Performed By: #### Nataliia ARGUELLES, 45378-9, [facility], 1987-08 ####[facility] ([id number])[address] [address] Neutrophils/100 WBC (Bld) 85.9 % Normal [facility] Comment on above: Performed By: #### Nataliia ARGUELLES, 14649-9, [facility], 1987-08 ####[facility] ([id number])[address] [address] [place] [address] Platelet mean volume (Bld) [Entitic vol] 8.1 fL Normal 7-12 [facility] Comment on above: Performed By: #### Nataliia ARGUELLES 24878-4, [facility], 1987-08 ####[facility] ([id number])[address] [address] Platelets (Bld) [#/Vol] 322 10*3/uL Normal 150-450 [facility] Comment on above: Performed By: #### Nataliia ARGUELLES, 73341-7, [facility], 1987-08 ####[facility] ([id number])[address], [address] [address] RBC COUNT 3.21 X10E12/L Low 3.80-5.20 [facility] Comment on above: Performed By: #### Nataliia ARGUELLES, 69925-5, [facility], 1987-08 ####[facility] ([id number])[address] [address] WBC (Bld) [#/Vol] 7.8 10*3/uL Normal 4.0-11.[address] [facility] Comment on above: Performed By: #### Nataliia ARGUELLES, 18942-9, [facility], 1987-08 ####[facility] ([id number])[address] [address] COMPREHENSIVE METABOLIC PANE Gerardo 10-02-2023 Albumin [Mass/Vol] 3.9 g/dL Normal 3.2-5.[address] [facility] Comment on above: Performed By: #### Nataliia ARGUELLES, 48656-9, [facility], 1987-08 ####[facility] ([id number])[address] [address] ALP [Catalytic activity/Vol] 44 U/L Normal 39-130 [facility] Comment on above: Performed By: #### Nataliia ARGUELLES, 97561-3, [facility], 1987-08 ####[facility] ([id number])[address] [address] ALT [Catalytic activity/Vol] 9 U/L Normal 0-31 [facility] Comment on above: Performed By: #### Nataliia ARGUELLES, 00553-9, [facility], 1987-08 ####[facility] ([id number])[address], [place] [address] Anion gap [Moles/Vol] 10 mmol/L Normal 5-15 [facility] Comment on above: Performed By: #### C KINDRA, 71726-2, [facility], 1987-08 ####[facility] ([id number])[address], [place] [address] AST [Catalytic activity/Vol] 13 U/L Normal 0-41 [facility] Comment on above: Performed By: #### Nataliia ARGUELLES, 82363-6, [facility], 1987-08 ####[facility] ([id number])[address], [place] [address] Bilirubin [Mass/Vol] 0.5 mg/dL Normal 0.3-1.2 [facility] Comment on above: Performed By: #### Nataliia ARGUELLES, 25723-0, [facility], 1987-08 ####[facility] ([id number])[address], [place] [address] Calcium [Mass/Vol] 8.9 mg/dL Normal 8.5-10.[address] [facility] Comment on above: Performed By: #### Nataliia ARGUELLES, 47677-7, [facility], 1987-08 ####[facility] ([id number])[address], [place] [address] Chloride [Moles/Vol] 103 mmol/L Normal 98-109 [facility] Comment on above: Performed By: #### Nataliia BCA, 18324-0, [facility], 1987-08 ####[facility] ([id number])[address], [place] [address] CO2 [Moles/Vol] 31 mmol/L Normal 22-32 [facility] Comment on above: Performed By: #### Nataliia BCA, 48162-3, [facility], 1987-08 ####[facility] ([id number])[address] [address] [address] Creatinine [Mass/Vol] 1.71 mg/dL High 0.40-1.00 [facility] Comment on above: Result Comment: METH OD TRACEABLE TO IDMS STANDARD Performed By: #### C KINDRA, 88923-5, [facility], 1987-08 ####[facility] ([id number])[address] [address], [place] [address] GFR/1.73 sq M.predicted among non-blacks MDRD (S/P/Bld) [Vol rate/Area] 41 mL/min/{1.73_m2} Low >59 [facility] Comment on above: Result Comment: Repo rted eGFR is based on theCKD-EPI 2020 equation that doesnot use a race coefficient. Performed By: #### C KINDRA, 71665-7, [facility], 1987-08 ####[facility] ([id number])[address] [address] [address] Glucose [Mass/Vol] 112 mg/dL High 65-[address] [facility] Comment on above: Performed By: #### C KINDRA, 86381-8, [facility], 1987-08 ####[facility] ([id number])[address] [address], [place] [address] Potassium [Moles/Vol] 3.7 mmol/L Normal 3.5-5.0 [facility] Comment on above: Performed By: #### C KINDRA, 04145-1, [facility], 1987-08 ####[facility] ([id number])[address] [address] [address] Protein [Mass/Vol] 6.5 g/dL Normal 6.0-8.[address] [facility] Comment on above: Performed By: #### C KINDRA, 69482-8, [place], 1987-08 ####[facility] ([id number])[address] [address], [place] [address] Sodium [Moles/Vol] 144 mmol/L Normal 134-[address] [facility] Comment on above: Performed By: #### Nataliia ARGUELLES, 38358-6, [facility], 1987-08 ####[facility] ([id number])[address] [address], [place] [address] Urea nitrogen [Mass/Vol] 33 mg/dL High 5-23 [facility] Comment on above: Performed By: #### C KINDRA, 64908-0, [facility], 1987-08 ####[facility] ([id number])[address] [address] CRP [Mass/Vol]on 10-02-2023 C REACTIVE PROTEIN 1.1 mg/dL High 0.000-0.744 [facility] Comment on above: Performed By: #### C KINDRA, 82588-8, [facility], 1987-08 ####[facility] ([id number])[address] [address] ESR Photometric method (Bld) [Velocity]on 10-02-2023 ESR, ERYTHROCYTE SEDIMENTATION RATE 6 mm/h Normal 0-20 [facility] Comment on above: Performed By: #### C KINDRA, 58488-7, [facility], 1987-08 ####[facility] ([id number])[address] [address] PROTEIN CREAT RATIOon 2023 RANDOM URINE PROTEIN 70 mg/L Normal <120 [facility] Comment on above: Performed By: #### U PCR ####[facility] ([id number])[address] [address] U/PRO/MACHINE STONECUTTER RATIO CALC 0.15 Normal <0.2 [facility] Comment on above: Result Comment: Neph rotic Syndrome is associated with ratios >3.5 Performed By: #### U PCR ####[facility] ([id number])[address], [place] [address] URINE CREATININE,RDM 45.67 mg/dL Normal [facility] Comment on above: Performed By: #### U PCR ####[facility] ([id number])[address], [place] [address] URINALYSISon 10-02-2023 Bilirubin Ql (U) Negative Normal NEG [facility] Comment on above: Performed By: #### U A ####[facility] ([id number])[address] [place] [address] BLOOD/HGB MODERATE Abnormal NEG [facility] Comment on above: Performed By: #### U A ####[facility] ([id number])[address] [place] [address] Color (U) YELLOW Normal YELLOW [facility] Comment on above: Performed By: #### U A ####[facility] ([id number])[address] [place] [address] Glucose Ql (U) Negative Normal NEG [facility] Comment on above: Performed By: #### U A ####[facility] ([id number])[address] [place] [address] Ketones Ql (U) Negative Normal NEG [facility] Comment on above: Performed By: #### U A ####[facility] ([id number])[address] [place] [address] Leukocyte esterase Test strip Ql (U) Negative Normal NEG [facility] Comment on above: Performed By: #### U A ####[facility] ([id number])[address] [place] [address] MUCOUS PRESENT Abnormal NONE [facility] Comment on above: Performed By: #### U A ####[facility] ([id number])[address] [address], [place] [address] Nitrite Ql (U) Negative Normal NEG [facility] Comment on above: Performed By: #### U A ####[facility] ([id number])[address] [address] [place] [address] pH (U) 6.0 [pH] Normal 5.0-8.5 [facility] Comment on above: Performed By: #### U A ####[facility] ([id number])0 [facility] [address] [place] [address] [id number] Protein Ql (U) Negative Normal NEG [facility] Comment on above: Performed By: #### U A ####[facility] ([id number])2129 [facility] [address] [place] [address] 07703 R.B.CELLS 19 /hpf High 0-5 [facility] Comment on above: Performed By: #### U A ####[facility] ([id number])0 [facility] [address] [place] [address] 44467 Specific gravity (U) [Rel density] 1.009 Normal 1.003-1.035 [facility] Comment on above: Performed By: #### U A ####[facility] ([id number])2129 [facility] [address] [place] [address]281 SQUAMOUS EPITHELIUM 1 /hpf Normal 0-5 [facility] Comment on above: Performed By: #### U A ####[facility] ([id number])0 [facility] [address] [place] [address] TURBIDITY CLEAR Normal CLEAR [facility] Comment on above: Performed By: #### U A ####[facility] ([id number])0 [facility] [address] [place] [address] 42076 Urobilinogen (U) [Mass/Vol] mg/dL Normal <1.1 [facility] Comment on above: Performed By: #### U A ####[facility] ([id number])[address] [facility], [address], [place] [address] W.B.CELLS 1 /hpf Normal 0-5 [facility] Comment on above: Performed By: #### U A ####[facility] ([id number])[address] [facility], [address], [place] [address] Orders Onlyon 09-27-2023 Orders Only [id number] Blanca Rudolph 1990 F Date Provider Department Center 09/27/2023 [facility] INF Ena Heal Family History Problem Relation Age of Onset Hypertension Mother Hypertension Mother's Sister Crohn's disease Mother's Sister Hypertension Maternal Grandmother Breast cancer Maternal Grandmother Kidney disease Other Migraines Other Family Status - Relation Status Age at Mother Mother's Sister Maternal Grandmother Other Normal [facility] Refillon 09-07-2023 Refill [id number] Blanca Rudolph 1990 F Date Provider Department Center 09/07/2023 [facility] CARE Ena Heal Family History Problem Relation Age of Onset Hypertension Mother Hypertension Mother's Sister Crohn's disease Mother's Sister Hypertension Maternal Grandmother Breast cancer Maternal Grandmother Kidney disease Other Migraines Other Family Status - Relation Status Age at Mother Mother's Sister Maternal Grandmother Other Reason for Visit and Comments: Med Refill [[id number]] Normal [facility] Ambulatory Visit Summaryon 0 08-23-2023 Ambulatory Visit Summary BLANCA RUDOLPH :1990 Visit Date:08/23/2023 Ambulatory Visit Instructions Your Diagnosis Alternating constipation and diarrhea RUQ cramping Lupus Acid reflux Former smoker Nausea Your Care Team Attending Physician - Lino XIONG, Saw Delarosa Primary Care Physician - NONE, XXXX This Is Your Medications List Contact prescribing physician if questions or concerns albuterol (Albuterol (Eqv-ProAir HFA) 90 mcg/inh inhalation aerosol) allopurinol (allopurinol 100 mg Tab) amitriptyline (amitriptyline 25 mg Tab) bumetanide (bumetanide 2 mg Tab) carvedilol (carvedilol 6.25 mg Tab) cetirizine (cetirizine 10 mg Tab) dicyclomine (dicyclomine 10 mg Cap) emtricitabine-tenofov ir (Descovy 200 mg-25 mg oral tablet) ergocalciferol (ergocalciferol 50,000 intl units Cap) etonogestrel (Nexplanon) famotidine (Pepcid 20 mg Tab) ferrous sulfate (FeroSul 325 mg oral tablet) fluocinonide topical (fluocinonide topical 0.05% solution) ketoconazole topical (ketoconazole Top 2% Shampoo) magnesium oxide (magnesium oxide 400 mg Tab) mycophenolate mofetil (mycophenolate mofetil 500 mg oral tablet) ondansetron (ondansetron 4 mg Dis Tab) potassium chloride (Potassium Chloride (Nrb-Merc-Csf M20) 20 mEq oral tablet, extended release) [...] CYNTHIA GALLARDO PA-C Where: [facility] Gastroenterology Office/Clin ic Noteon 08-23-2023 Gastroenterology Office/Clinic [...] took omeprazole in the past but her peripheral vascular tech told her that it was not for [...] smoker Frequent UTI Gas pain Gastritis 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 Normal [facility] Comment on above: Result Comment: Elec tronically Signed By: Lino XIONG, Saw Delarosa\.br\Date and Time Signed: 08/23/23 13:18 EDT\.br\Electronically Co-Signed By: Hira GUALLPA, Maite S\.br\Date and Time Co-Signed: 08/23/23 13:15 EDT CBC AND AUTO DIFFon 08-22-19 ABSOLUTE BASOPHIL 0.0 X10E9/L Normal 0.0-0.[address] [facility] Comment on above: Performed By: #### C KINDRA, CMP ####[facility] ([id number])[address] [place] [address] 55047 ABSOLUTE NEUTROPHIL 7.2 X10E9/L High 1.5-6.6 [facility] Comment on above: Performed By: #### C KINDRA, CMP ####[facility] ([id number])[address] [place] [address] 38183 Basophils/100 WBC (Bld) 0.4 % Normal [facility] Comment on above: Performed By: #### C BCA, CMP ####[facility] ([id number])[address] [place] [address] 68616 Eosinophils (Bld) [#/Vol] 0.0 10*3/uL Normal 0.0-0.4 [facility] Comment on above: Performed By: #### C BCA, CMP ####[facility] ([id number])[address] [place] [address] 11380 Eosinophils/100 WBC (Bld) 0.3 % Normal [facility] Comment on above: Performed By: #### C BCA, CMP ####[facility] ([id number])[address] [place] [address] [place] [address] Erythrocyte distribution width (RBC) [Ratio] 13.4 % Normal 11.5-15.0 [facility] Comment on above: Performed By: #### C KINDRA, CMP ####[facility] ([id number])[address] [place] [address] 13299 Hematocrit (Bld) [Volume fraction] 36.3 % Normal 35-47 [facility] Comment on above: Performed By: #### C KINDRA, CMP ####[facility] ([id number])[address] [place] [address] 11549 Hemoglobin (Bld) [Mass/Vol] 12.8 g/dL Normal 11.7-15.5 [facility] Comment on above: Performed By: #### C KINDRA, CMP ####[facility] ([id number])[address] [place] [address] 51523 Lymphocytes (Bld) [#/Vol] 2.1 10*3/uL Normal 1.0-3.5 [facility] Comment on above: Performed By: #### C KINDRA, CMP ####[facility] ([id number])[address] [place] [address] 27656 Lymphocytes/100 WBC (Bld) 21.2 % Normal [facility] Comment on above: Performed By: #### C KINDRA, CMP ####[facility] ([id number])[address] [place] [address] 76700 MCH (RBC) [Entitic mass] 31.9 pg Normal 27-34 [facility] Comment on above: Performed By: #### C BCA, CMP ####[facility] ([id number])[address] [place] [address] 67693 MCHC (RBC) [Mass/Vol] 35.2 g/dL Normal 32-36 [facility] Comment on above: Performed By: #### C BCA, CMP ####[facility] ([id number])[address] [place] [address] 90745 MCV (RBC) [Entitic vol] 91 fL Normal 80-100 [facility] Comment on above: Performed By: #### C BCA, CMP ####[facility] ([id number])[address] [place] [address] 82128 Monocytes (Bld) [#/Vol] 0.7 10*3/uL Normal 0-0.9 [facility] Comment on above: Performed By: #### C KINDRA, CMP ####[facility] ([id number])[address] [place] [address] 67677 Monocytes/100 WBC (Bld) 7.1 % Normal [facility] Comment on above: Performed By: #### C KINDRA, CMP ####[facility] ([id number])[address] [place] [address] 80690 Neutrophils/100 WBC (Bld) 71.0 % Normal [facility] Comment on above: Performed By: #### C BCA, CMP ####[facility] ([id number])[address] [place] [address] 62840 Platelet mean volume (Bld) [Entitic vol] 7.2 fL Normal 7-12 [facility] Comment on above: Performed By: #### C BCA, CMP ####[facility] ([id number])[address] [place] [address] 36731 Platelets (Bld) [#/Vol] 296 10*3/uL Normal 150-450 [facility] Comment on above: Performed By: #### C BCA, CMP ####[facility] ([id number])[address] [place] [address] [place] [address] RBC COUNT 4.01 X10E12/L Normal 3.80-5.20 [facility] Comment on above: Performed By: #### C BCA, CMP ####[facility] ([id number])[address] [place] [address] 15211 WBC (Bld) [#/Vol] 10.1 10*3/uL Normal 4.0-11.0 [facility] Comment on above: Performed By: #### C BCA, CMP ####[facility] ([id number])[address] [place] [address] 30529 COMPREHENSIVE METABOLIC PANE Gerardo 08-22-2023 Albumin [Mass/Vol] 3.8 g/dL Normal 3.2-5.[address] [facility] Comment on above: Performed By: #### C BCA, CMP ####[facility] ([id number])[address] [place] [address] 38944 ALP [Catalytic activity/Vol] 43 U/L Normal 39-130 [facility] Comment on above: Performed By: #### C BCA, CMP ####[facility] ([id number])[address] [place] [address] 52626 ALT [Catalytic activity/Vol] 12 U/L Normal 0-31 [facility] Comment on above: Performed By: #### C BCA, CMP ####[facility] ([id number])[address] [place] [address] 23892 Anion gap [Moles/Vol] 8 mmol/L Normal 5-15 [facility] Comment on above: Performed By: #### C BCA, CMP ####[facility] ([id number])[address] [place] [address] 80530 AST [Catalytic activity/Vol] 12 U/L Normal 0-41 [facility] Comment on above: Performed By: #### C BCA, CMP ####[facility] ([id number])[address] [place] [address] [place] [address] Bilirubin [Mass/Vol] 0.6 mg/dL Normal 0.3-1.2 [facility] Comment on above: Performed By: #### C BCA, CMP ####[facility] ([id number])[address] [place] [address], [place] [address] Calcium [Mass/Vol] 8.2 mg/dL Low 8.5-10.[address] [facility] Comment on above: Performed By: #### C BCA, CMP ####[facility] ([id number])[address] [place] [address] 18380 Chloride [Moles/Vol] 96 mmol/L Low 98-109 [facility] Comment on above: Performed By: #### C BCA, CMP ####[facility] ([id number])[address] [place] [address] 08575 CO2 [Moles/Vol] 31 mmol/L Normal 22-32 [facility] Comment on above: Performed By: #### C BCA, CMP ####[facility] ([id number])[address] [place] [address] 86288 Creatinine [Mass/Vol] 1.54 mg/dL High 0.40-1.00 [facility] Comment on above: Result Comment: METH OD TRACEABLE TO IDMS STANDARD Performed By: #### C BCA, CMP ####[facility] ([id number])[address] [place] [address] 21961 GFR/1.73 sq M.predicted among non-blacks MDRD (S/P/Bld) [Vol rate/Area] 46 mL/min/{1.73_m2} Low >59 [facility] Comment on above: Result Comment: Repo rted eGFR is based on theCKD-EPI 2020 equation that doesnot use a race coefficient. Performed By: #### C BCA, CMP ####[facility] ([id number])[address] [place] [address] 73014 Glucose [Mass/Vol] 91 mg/dL Normal 65-[address] [facility] Comment on above: Performed By: #### C BCA, CMP ####[facility] ([id number])[address] [place] [address] 77537 Potassium [Moles/Vol] 3.5 mmol/L Normal 3.5-5.0 [facility] Comment on above: Performed By: #### C BCA, CMP ####[facility] ([id number])[address] [place] [address] 34915 Protein [Mass/Vol] 6.6 g/dL Normal 6.0-8.[address] [facility] Comment on above: Performed By: #### C BCA, CMP ####[facility] ([id number])[address] [place] [address] 62857 Sodium [Moles/Vol] 135 mmol/L Normal 134-[address] [facility] Comment on above: Performed By: #### C BCA, CMP ####[facility] ([id number])[address] [place] [address] 08516 Urea nitrogen [Mass/Vol] 38 mg/dL High 5-23 [facility] Comment on above: Performed By: #### C BCA, CMP ####[facility] ([id number])[address] [place] [address] 72326 CREATININEon 08-22-2023 Creatinine [Mass/Vol] 1.34 mg/dL High 0.40-1.00 [facility] Comment on above: Result Comment: METH OD TRACEABLE TO IDMS STANDARD Performed By: #### C RT ####[facility] ([id number])[address] [facility], [address] [place] [address] GFR/1.73 sq M.predicted among non-blacks MDRD (S/P/Bld) [Vol rate/Area] 54 mL/min/{1.73_m2} Low >59 [facility] Comment on above: Result Comment: Repo rted eGFR is based on theCKD-EPI 2020 equation that doesnot use a race coefficient. Performed By: #### C RT ####[facility] ([id number])[address] [facility], [address] [address] HCG ( test) Ql (U)o n 08-22-2023 Beta HCG ( test) Ql (U) Negative Normal NEG [facility] Comment on above: Performed By: #### 2 106-3 ####[facility] ([id number])[address] [place] [address] 93409 PROTEIN CREAT RATIOon 2023 RANDOM URINE PROTEIN 120 mg/L High <120 [facility] Comment on above: Performed By: #### U PCR ####[facility] ([id number])[address] [facility], [address] [address] U/PRO/MACHINE STONECUTTER RATIO CALC 0.36 High <0.2 [facility] Comment on above: Result Comment: Neph rotic Syndrome is associated with ratios >3.5 Performed By: #### U PCR ####[facility] ([id number])[address] [facility], [address] [address] URINE CREATININE,RDM 33.46 mg/dL Normal [facility] Comment on above: Performed By: #### U PCR ####[facility] ([id number])[address] [facility], [address] [address] SARS/FLU A+B/RSV by NAAT/Mol ecularon 08-22-2023 SARS/FLU A+B/RSV by NAAT/Molecular Normal [facility] Comment on above: Performed By: #### C OVFLR ####[facility] ([id number])[address] [place] [address] 38856 URINALYSISon 08-22-2023 Bilirubin Ql (U) Negative Normal NEG [facility] BLOOD/HGB Large Abnormal NEG [facility] Color (U) YELLOW Normal YELLOW [facility] Glucose Ql (U) Negative Normal NEG [facility] Ketones Ql (U) Negative Normal NEG [facility] Leukocyte esterase Test strip Ql (U) MODERATE Abnormal NEG [facility] MUCOUS PRESENT Abnormal NONE [facility] Nitrite Ql (U) Negative Normal NEG [facility] pH (U) 6.5 [pH] Normal 5.0-8.5 [facility] Protein Ql (U) Negative Normal NEG [facility] R.B.CELLS 26 /hpf High 0-5 [facility] Specific gravity (U) [Rel density] 1.010 Normal 1.003-1.035 [facility] SQUAMOUS EPITHELIUM 8 /hpf High 0-5 [facility] TURBIDITY CLEAR Normal CLEAR [facility] Urobilinogen (U) [Mass/Vol] mg/dL Normal <1.1 [facility] W.B.CELLS 9 /hpf High 0-5 [facility] URN MACROSCOPIC NURon 2023 BILIRUBIN BRENDEN Negative Normal NEG [facility] Comment on above: Performed By: #### N UM ####[facility] ([id number])[address] [place] [address] 87451 BLOOD/HGB BRENDEN Large Abnormal NEG [facility] Comment on above: Performed By: #### N UM ####[facility] ([id number])[address] [place] [address] 57160 GLUCOSE BRENDEN Negative Normal NEG [facility] Comment on above: Performed By: #### N UM ####[facility] ([id number])[address] [place] [address] 15953 KETONES BRENDEN Negative Normal NEG [facility] Comment on above: Performed By: #### N UM ####[facility] ([id number])[address] [place] [address] [place] [address] LEUKOCYTE ESTERASE BRENDEN Negative Normal NEG [facility] Comment on above: Performed By: #### N UM ####[facility] ([id number])[address] [place] [address] 24587 NITRITE BRENDEN Negative Normal NEG [facility] Comment on above: Performed By: #### N UM ####[facility] ([id number])[address] [place] [address] 67050 PH BRENDEN 5.5 Normal 5.0-8.5 [facility] Comment on above: Performed By: #### N UM ####[facility] ([id number])[address] [place] [address] 12128 PROTEIN BRENDEN 100 mg/dL Abnormal NEG [facility] Comment on above: Performed By: #### N UM ####[facility] ([id number])[address] [place] [address] 85741 SPECIFIC GRAVITY BRENDEN 1.020 Normal 1.003-1.035 [facility] Comment on above: Performed By: #### N UM ####[facility] ([id number])[address] [place] [address] 93650 UROBILINOGEN BRENDEN 0.2 eu/dL Normal <1.1 [facility] Comment on above: Performed By: #### N UM ####[facility] ([id number])[address] [place] [address] 38665 XR CHEST 1 VWon 08-22-2023 XR CHEST [address] [facility] Gerardo 08-16-2023 L Specimen: [id number] Received: 08/16/238 Status: ROSE Diana Num: [id number] Spec Type: Surgical Subm Dr: Mayco Albright Tissues: A Endometrium - Curettings (ENDOMETRIAL) Procedures: HE/2, Gross/Micro L4 Age/ Patient Sex Location Account Attending Physician RonniBlanca Pope / LABELL [id number] Mayco Albright SPEC NUM: [id number] RECD: 08/16/23 STATUS: ROSE DE LA CRUZLou NUM: [id number] DESIREE: 08/16/23- SUBM DR: Mayco Albright ENTERED: 08/16/[address] [facility] [address]: SPEC TYPE: Surgical DEPT: ZION GUAJARDO ENTERED BY: [id number] RECV BY: [id number] ORDERED: HE/2, Gross/Micro L4 ORDERED: HE/2, Gross/Micro [...] pain, breakthrough bleeding with Nexplanon CPT Codes 57995 -------- -------- Specimen: [id number] Received: 08/16/23 Status: TEJRomana Diana Num: [id number] Spec Type: Surgical Subm Dr: Mayco Albright Tissues: A Endometrium - Curettings (ENDOMETRIAL) Procedures: HE/2, Gross/Micro L4 -------- Patient: Blanca Rudolph [id number] (Continued) -------- Signed (signature on file) Chin-Gabino Irizarry MD 08/21/23 0838 Normal [facility] EOSINOPHIL, TOTALon 08-14-19 24 Eosinophils (Bld) [#/Vol] 0.0 10*3/uL Normal 0.0-0.4 [facility] Comment on above: Performed By: #### 2 [id number] ####[facility] ([id number])[address], [address] [place] [address] RESPIRATORY PANELon 08-14-19 24 ALTERNARIA ALTERNATA <0.10 Normal <0.10 [facility] Comment on above: Result Comment: Clas s 0: Normal Performed By: #### R AP ####[facility] ([id number])[address] [address] [place] [address]68 ASPERGILLUS FUMIGATUS <0.10 Normal <0.10 [facility] Comment on above: Result Comment: Clas s 0: Normal Performed By: #### R AP ####[facility] ([id number])[address], [address] [place] [address] BERMUDA GRASS <0.10 Normal <0.10 [facility] Comment on above: Result Comment: Clas s 0: Normal Performed By: #### R AP ####[facility] ([id number])[address], [place] [address] BOX ELDER <0.10 Normal <0.10 [facility] Comment on above: Result Comment: Clas s 0: Normal Performed By: #### R AP ####[facility] ([id number])[address] [place] [address] CAT DANDER <0.10 Normal <0.10 [facility] Comment on above: Result Comment: Clas s 0: Normal Performed By: #### R AP ####[facility] ([id number])[address] [place] [address] CLADOSPORIUM HERB <0.10 Normal <0.10 [facility] Comment on above: Result Comment: Clas s 0: Normal Performed By: #### R AP ####[facility] ([id number])[address] [place] [address] COCKLEBUR 0.20 kU/L High <0.10 [facility] Comment on above: Result Comment: Clas s 0/1: Low level of Allergy, ongoing sensitization Performed By: #### R AP ####[facility] ([id number])[address] [place] [address] COCKROACH 0.37 kU/L High <0.10 [facility] Comment on above: Result Comment: Clas s 1:Low level of Allergy, indicative of ongoing sensitization Performed By: #### R AP ####[facility] ([id number])[address] [place] [address] COMMON PIGWEED <0.10 Normal <0.10 [facility] Comment on above: Result Comment: Clas s 0: Normal Performed By: #### R AP ####[facility] ([id number])[address], [place] [address] COMMON RAGWEED <0.10 Normal <0.10 [facility] Comment on above: Result Comment: Clas s 0: Normal Performed By: #### R AP ####[facility] ([id number])[address], [place] [address] COMMON SILVER BIRCH <0.10 Normal <0.10 [facility] Comment on above: Result Comment: Clas s 0: Normal Performed By: #### R AP ####[facility] ([id number])[address], [place] [address] COTTONWOOD <0.10 Normal <0.10 [facility] Comment on above: Result Comment: Clas s 0: Normal Performed By: #### R AP ####[facility] ([id number])[address], [place] [address] DERMATOPH FARINAE 0.77 kU/L High <0.10 [facility] Comment on above: Result Comment: Clas s 2:Moderate level of Allergy, indicative of stronger ongoing sensitization Performed By: #### R AP ####[facility] ([id number])[address] [place] [address] DERMATOPH PTERONYSS 0.87 kU/L High <0.10 [facility] Comment on above: Result Comment: Clas s 2:Moderate level of Allergy, indicative of stronger ongoing sensitization Performed By: #### R AP ####[facility] ([id number])[address] [place] [address] DOG DANDER <0.10 Normal <0.10 [facility] Comment on above: Result Comment: Clas s 0: Normal Performed By: #### R AP ####[facility] ([id number])[address] [place] [address] ELM <0.10 Normal <0.10 [facility] Comment on above: Result Comment: Clas s 0: Normal Performed By: #### R AP ####[facility] ([id number])[address] [place] [address] GOOSEFOOT MICHAEL QTR <0.10 Normal <0.[address] [facility] Comment on above: Result Comment: Clas s 0: Normal Performed By: #### R AP ####[facility] ([id number])[address] [place] [address] IGE 262 IU/mL High 0-165 [facility] Comment on above: Performed By: #### R AP ####[facility] ([id number])[address] [address] JANET GRASS <0.10 Normal <0.10 [facility] Comment on above: Result Comment: Clas s 0: Normal Performed By: #### R AP ####[facility] ([id number])[address] [address] MAPLE LEAF [place] <0.10 Normal <0.10 [facility] Comment on above: Result Comment: Clas s 0: Normal Performed By: #### R AP ####[facility] ([id number])[address] [address] [place] K[place]KAY <0.10 Normal <0.10 [facility] Comment on above: Result Comment: Clas s 0: Normal Performed By: #### R AP ####[facility] ([id number])[address], [address] [place] [address] MOUNTAIN JUNIPER <0.10 Normal <0.10 [facility] Comment on above: Result Comment: Clas s 0: Normal Performed By: #### R AP ####[facility] ([id number])[address], [address], [place] [address] MOUSE URINE PROTEINS <0.10 Normal <0.10 [facility] Comment on above: Result Comment: Clas s 0: Normal Performed By: #### R AP ####[facility] ([id number])[address], [address], [place] [address] MUGWORT <0.10 Normal <0.10 [facility] Comment on above: Result Comment: Clas s 0: Normal Performed By: #### R AP ####[facility] ([id number])[address], [address] [place] [address] MULBERRY TREE <0.10 Normal <0.10 [facility] Comment on above: Result Comment: Clas s 0: Normal Performed By: #### R AP ####[facility] ([id number])[address], [address], [place] [address] NETTLE <0.10 Normal <0.10 [facility] Comment on above: Result Comment: Clas s 0: Normal Performed By: #### R AP ####[facility] ([id number])[address], [address], [place] [address] OAK <0.10 Normal <0.10 [facility] Comment on above: Result Comment: Clas s 0: Normal Performed By: #### R AP ####[facility] ([id number])[address] [place] [address] PECAN HICKORY TREE <0.10 Normal <0.[address] [facility] Comment on above: Result Comment: Clas s 0: Normal Performed By: #### R AP ####[facility] ([id number])[address], [place] [address] PENICILLIUM CHRYSOGENUM <0.10 Normal <0.10 [facility] Comment on above: Result Comment: Clas s 0: Normal Performed By: #### R AP ####[facility] ([id number])[address] [place] [address] ROUGH MARSHELDER 0.12 kU/L High <0.10 [facility] Comment on above: Result Comment: Clas s 0/1: Low level of Allergy, ongoing sensitization Performed By: #### R AP ####[facility] ([id number])[address] [address] SALTW[place] ANIL THISTLE <0.10 Normal <0.10 [facility] Comment on above: Result Comment: Clas s 0: Normal Performed By: #### R AP ####[facility] ([id number])[address] [address] SHEEP SORREL <0.10 Normal <0.10 [facility] Comment on above: Result Comment: Clas s 0: Normal Performed By: #### R AP ####[facility] ([id number])[address] [address] EDI <0.10 Normal <0.10 [facility] Comment on above: Result Comment: Clas s 0: Normal Performed By: #### R AP ####[facility] ([id number])[address] [address] WALNUT TREE POLLEN <0.10 Normal <0.[address] [facility] Comment on above: Result Comment: Clas s 0: Normal Performed By: #### R AP ####[facility] ([id number])[address] [address] WHITE JARED <0.10 Normal <0.10 [facility] Comment on above: Result Comment: Clas s 0: Normal Performed By: #### R AP ####[facility] ([id number])[address], [address], [place] [address] CBC AND AUTO DIFFon 07-26-19 24 ABSOLUTE BASOPHIL 0.0 X10E9/L Normal 0.0-0.[address] [facility] Comment on above: Performed By: #### Nataliia ARGUELLES, 12166-6, 4485-9, 4498-2, CMP, 1987-08 ####[facility] ([id number])[address], [address] [place] [address] ABSOLUTE NEUTROPHIL 7.7 X10E9/L High 1.5-6.6 [facility] Comment on above: Performed By: #### Nataliia ARGUELLES, 53485-9, 4485-9, [facility]8-2, CMP, 1987-08 ####[facility] ([id number])[address] [address] [place] [address] Basophils/100 WBC (Bld) 0.2 % Normal [facility] Comment on above: Performed By: #### Nataliia ARGUELLES, 24133-1, 4485-9, 4498-2, CMP, 1987-08 ####[facility] ([id number])[address] [address] [place] [address] Eosinophils (Bld) [#/Vol] 0.0 10*3/uL Normal 0.0-0.4 [facility] Comment on above: Performed By: #### Nataliia ARGUELLES, 45021-4, 4485-9, 4498-2, CMP, 1987-08 ####[facility] ([id number])[address] [address] [place] [address] Eosinophils/100 WBC (Bld) 0.0 % Normal [facility] Comment on above: Performed By: #### Nataliia ARGUELLES, 19037-0, 4485-9, 4498-2, CMP, 1987-08 ####[facility] ([id number])[address] [address] Erythrocyte distribution width (RBC) [Ratio] 14.9 % Normal 11.5-15.0 [facility] Comment on above: Performed By: #### Nataliia ARGUELLES, 03590-0, 4485-9, 4498-2, [facility], 1987-08 ####[facility] ([id number])[address] [address] Hematocrit (Bld) [Volume fraction] 37.7 % Normal 35-47 [facility] Comment on above: Performed By: #### Nataliia ARGUELLES, 95705-5, 4485-9, [facility]8-2, [facility], 1987-08 ####[facility] ([id number])[address] [address] Hemoglobin (Bld) [Mass/Vol] 13.0 g/dL Normal 11.7-15.5 [facility] Comment on above: Performed By: #### Nataliia ARGUELLES, 79293-7, 4485-9, 4498-2, [facility], 1987-08 ####[facility] ([id number])[address] [address] Lymphocytes (Bld) [#/Vol] 0.5 10*3/uL Low 1.0-3.5 [facility] Comment on above: Performed By: #### Nataliia ARGUELLES, 97504-4, 4485-9, [facility]8-2, [facility], 1987-08 ####[facility] ([id number])[address] [address] Lymphocytes/100 WBC (Bld) 6.2 % Normal [facility] Comment on above: Performed By: #### Nataliia ARGUELLES, 12125-4, 4485-9, 4498-2, [facility], 1987-08 ####[facility] ([id number])[address] [address] MCH (RBC) [Entitic mass] 31.4 pg Normal 27-34 [facility] Comment on above: Performed By: #### Nataliia BCA, 46099-2, 4485-9, 4498-2, [facility], 1987-08 ####[facility] ([id number])[address] [place] [address] MCHC (RBC) [Mass/Vol] 34.5 g/dL Normal 32-36 [facility] Comment on above: Performed By: #### C BCA, 47433-2, 4485-9, 4498-2, [facility], 1987-08 ####[facility] ([id number])[address] [address] MCV (RBC) [Entitic vol] 91 fL Normal 80-100 [facility] Comment on above: Performed By: #### Nataliia ARGUELLES, 34433-6, 4485-9, 4498-2, CMP, 1987-08 ####[facility] ([id number])[address], [place] [address] Monocytes (Bld) [#/Vol] 0.3 10*3/uL Normal 0-0.9 [facility] Comment on above: Performed By: #### Nataliia BCA, 03040-9, 4485-9, 4498-2, CMP, 1987-08 ####[facility] ([id number])[address], [address], [place] [address] Monocytes/100 WBC (Bld) 3.2 % Normal [facility] Comment on above: Performed By: #### Nataliia BCA, 09435-8, 4485-9, 4498-2, CMP, 1987-08 ####[facility] ([id number])[address], [address] [address] Neutrophils/100 WBC (Bld) 90.4 % Normal [facility] Comment on above: Performed By: #### Nataliia BCA, 03888-4, 4485-9, 4498-2, CMP, 1987-08 ####[facility] ([id number])[address] [address] [place] [address] Platelet mean volume (Bld) [Entitic vol] 8.0 fL Normal 7-12 [facility] Comment on above: Performed By: #### C BCA, 21652-4, 4485-9, 4498-2, CMP, 1987-08 ####[facility] ([id number])[address] [address] [place] [address] Platelets (Bld) [#/Vol] 266 10*3/uL Normal 150-450 [facility] Comment on above: Performed By: #### C BCA, 26333-7, 4485-9, 4498-2, CMP, 1987-08 ####[facility] ([id number])[address] [address] [place] [address] RBC COUNT 4.14 X10E12/L Normal 3.80-5.20 [facility] Comment on above: Performed By: #### C BCA, 80314-4, 4485-9, 4498-2, CMP, 1987-08 ####[facility] ([id number])[address] [address] WBC (Bld) [#/Vol] 8.5 10*3/uL Normal 4.0-11.[address] [facility] Comment on above: Performed By: #### C BCA, 28476-5, 4485-9, 4498-2, CMP, 1987-08 ####[facility] ([id number])[address] [address] CCL GENERIC ORDERon 07-26-19 TEST NAME KAVIN ROMAN Normal [facility] Comment on above: Performed By: #### C GO ####[facility] ([id number])[address] [place] [address] TEST RESULT See Below Normal [facility] Comment on above: Result Comment: NOTE TEST RESULT FLAG UNIT REF.RANGE Crithidia lucillae Negative NegativeCrithidia luciliae assay is used as an aid in diagnosis ofsystemic lupus erythematosus (SLE). A negative result cannotrule out SLE. Low positive titers may be seen with othersystemic autoimmune diseases. Clinical correlation isrequired. CRITHIDIA LUCILIAE Test Performed By: [facility] [address] [place] [address] Battery Tester: Alberto Dominguez III, M.D. CLIA #[id number] Performed By: #### C GO ####[facility] ([id number])[address] [place] [address] COMPREHENSIVE METABOLIC PANE Gerardo 07-26-2023 Albumin [Mass/Vol] 3.9 g/dL Normal 3.2-5.[address] [facility] Comment on above: Performed By: #### C BCA, 13432-2, 4485-9, 4498-2, CMP, 1987-08 ####[facility] ([id number])[address], [address] [place] [address] ALP [Catalytic activity/Vol] 47 U/L Normal 39-130 [facility] Comment on above: Performed By: #### C BCA, 62008-0, 7485-9, 4498-2, CMP, 1987-08 ####[facility] ([id number])[address] [facility] [address] [place] [address] ALT [Catalytic activity/Vol] 10 U/L Normal 0-31 [facility] Comment on above: Performed By: #### C BCA, 00651-3, 4485-9, 4498-2, CMP, 1987-08 ####[facility] ([id number])[address] [place] [address] Anion gap [Moles/Vol] 10 mmol/L Normal 5-15 [facility] Comment on above: Performed By: #### C BCA, 31879-4, 4485-9, 4498-2, CMP, 1987-08 ####[facility] ([id number])[address] [place] [address] AST [Catalytic activity/Vol] 11 U/L Normal 0-41 [facility] Comment on above: Performed By: #### C BCA, 44701-8, 4485-9, 4498-2, [facility], 1987-08 ####[facility] ([id number])[address] [place] [address] Bilirubin [Mass/Vol] 0.5 mg/dL Normal 0.3-1.2 [facility] Comment on above: Performed By: #### C BCA, 20304-5, 4485-9, 4498-2, CMP, 1987-08 ####[facility] ([id number])[address] [place] [address] Calcium [Mass/Vol] 8.9 mg/dL Normal 8.5-10.[address] [facility] Comment on above: Performed By: #### C BCA, 97992-1, 4485-9, 4498-2, CMP, 1987-08 ####[facility] ([id number])[address] [place] [address] Chloride [Moles/Vol] 100 mmol/L Normal 98-109 [facility] Comment on above: Performed By: #### C BCA, 59939-9, 4485-9, 4498-2, CMP, 1987-08 ####[facility] ([id number])[address] [address], [place] [address] CO2 [Moles/Vol] 31 mmol/L Normal 22-32 [facility] Comment on above: Performed By: #### C KINDRA, 24656-8, 4485-9, 4498-2, [facility], 1987-08 ####[facility] ([id number])[address] [address] [address] Creatinine [Mass/Vol] 1.57 mg/dL High 0.40-1.00 [facility] Comment on above: Result Comment: METH OD TRACEABLE TO IDMS STANDARD Performed By: #### C KINDRA, 87107-3, 4485-9, 4498-2, [facility], 1987-08 ####[facility] ([id number])[address] [address] GFR/1.73 sq M.predicted among non-blacks MDRD (S/P/Bld) [Vol rate/Area] 45 mL/min/{1.73_m2} Low >59 [facility] Comment on above: Result Comment: Repo rted eGFR is based on theCKD-EPI 2020 equation that doesnot use a race coefficient. Performed By: #### C KINDRA, 68352-6, 4485-9, 4498-2, [facility], 1987-08 ####[facility] ([id number])[address] [address] [address] Glucose [Mass/Vol] 135 mg/dL High 65-[address] [facility] Comment on above: Performed By: #### C BCA, 55947-3, 4485-9, 4498-2, [facility], 1987-08 ####[facility] ([id number])[address] [address] [address] Potassium [Moles/Vol] 3.4 mmol/L Low 3.5-5.0 [facility] Comment on above: Performed By: #### C BCA, 39150-9, 4485-9, 4498-2, CMP, 1987-08 ####[facility] ([id number])[address] [address] Protein [Mass/Vol] 6.5 g/dL Normal 6.0-8.[address] [facility] Comment on above: Performed By: #### C BCA, 41141-4, 4485-9, 4498-2, CMP, 1987-08 ####[facility] ([id number])[address], [place] [address] Sodium [Moles/Vol] 141 mmol/L Normal 134-[address] [facility] Comment on above: Performed By: #### C BCA, 88038-8, 4485-9, 4498-2, CMP, 1987-08 ####[facility] ([id number])[address], [place] [address] Urea nitrogen [Mass/Vol] 34 mg/dL High 5-23 [facility] Comment on above: Performed By: #### C BCA, 94180-5, 4485-9, 4498-2, CMP, 1987-08 ####[facility] ([id number])[address], [place] [address] CRP [Mass/Vol]on 07-26-2023 C REACTIVE PROTEIN 0.4 mg/dL Normal 0.000-0.744 [facility] Comment on above: Performed By: #### C BCA, 31542-9, 4485-9, 4498-2, CMP, 1987-08 ####[facility] ([id number])[address] [place] [address] Complement C3 [Mass/Vol]on 0 07-26-2023 COMPLEMENT C3 140 mg/dL Normal 86-184 [facility] Comment on above: Performed By: #### C BCA, 64015-3, 4485-9, 4498-2, CMP, 1987-08 ####[facility] ([id number])[address], [address] [place] [address] Complement C4 [Mass/Vol]on 0 07-26-2023 COMPLEMENT C4 29 mg/dL Normal 16-47 [facility] Comment on above: Performed By: #### C BCA, 71384-8, 4485-9, 4498-2, [facility], 1987-08 ####[facility] ([id number])[address] [place] [address] ESR Photometric method (Bld) [Velocity]on 07-26-2023 ESR, ERYTHROCYTE SEDIMENTATION RATE 3 mm/h Normal 0-20 [facility] Comment on above: Performed By: #### C BCA, 47285-8, 4485-9, 4498-2, [facility], 1987-08 ####[facility] ([id number])[address] [place] [address] Laboratory comment Francisco (Repo rt)on 07-26-2023 UNLISTED LAB TEST Sent to reference lab Normal [facility] Comment on above: Performed By: #### C GO ####[facility] ([id number])[address] [place] [address] PROTEIN CREAT RATIOon 2023 RANDOM URINE PROTEIN 480 mg/L High <120 [facility] Comment on above: Performed By: #### U PCR ####[facility] ([id number])[address] [place] [address] U/PRO/MACHINE STONECUTTER RATIO CALC 1.13 High <0.2 [facility] Comment on above: Result Comment: Neph rotic Syndrome is associated with ratios >3.5 Performed By: #### U PCR ####[facility] ([id number])[address] [place] [address] URINE CREATININE,RDM 42.43 mg/dL Normal [facility] Comment on above: Performed By: #### U PCR ####[facility] ([id number])[address] [facility], [address] [place] [address] URINALYSISon 07-26-2023 Bilirubin Ql (U) Negative Normal NEG [facility] BLOOD/HGB Large Abnormal NEG [facility] Color (U) YELLOW Normal YELLOW [facility] Glucose Ql (U) Negative Normal NEG [facility] Hyaline casts LM Ql (Urine sed) 1 /lpf Normal 0-2 [facility] Ketones Ql (U) Negative Normal NEG [facility] Leukocyte esterase Test strip Ql (U) Negative Normal NEG [facility] MUCOUS PRESENT Abnormal NONE [facility] Nitrite Ql (U) Negative Normal NEG [facility] pH (U) 6.0 [pH] Normal 5.0-8.5 [facility] Protein Ql (U) 50 mg/dL Abnormal NEG [facility] R.B.CELLS 48 /hpf High 0-5 [facility] Specific gravity (U) [Rel density] 1.009 Normal 1.003-1.035 [facility] SQUAMOUS EPITHELIUM 4 /hpf Normal 0-5 [facility] TURBIDITY CLEAR Normal CLEAR [facility] Urobilinogen (U) [Mass/Vol] mg/dL Normal <1.1 [facility] W.B.CELLS 2 /hpf Normal 0-5 [facility] MR BRAIN WO CONTon MR BRAIN WO CONT Normal [facility] Orders Onlyon 07-18-2023 Orders Only [id number] Blanca Rudolph 1990 F Date Provider Department Center 07/18/2023 ORIN VERNON [facility] INF [facility]na [facility] Family History Problem Relation Age of Onset Hypertension Mother Hypertension Mother's Sister Crohn's disease Mother's Sister Hypertension Maternal Grandmother Breast cancer Maternal Grandmother Kidney disease Other Migraines Other Family Status - Relation Status Age at Mother Mother's Sister Maternal Grandmother Other Normal [facility] SARS/FLU A+B/RSV by NAAT/Mol ecularon 07-15-2023 SARS/FLU A+B/RSV by NAAT/Molecular Normal [facility] Comment on above: Performed By: #### C OVFLR ####[facility] ([id number])[address] [place] [address] Orders Onlyon 07-10-2023 Orders Only [id number] Blanca Rudolph 1990 F Date Provider Department Center 07/10/2023 147-RAHUL WETZELE [facility] CARE Ena Heal Family History Problem Relation Age of Onset Hypertension Mother Hypertension Mother's Sister Crohn's disease Mother's Sister Hypertension Maternal Grandmother Breast cancer Maternal Grandmother Kidney disease Other Migraines Other Family Status - Relation Status Age at Mother Mother's Sister Maternal Grandmother Other Normal [facility] CBC WITH AUTO DIFFERENTIALon 07-06-2023 Basophils (Bld) [#/Vol] 0.02 10*3/uL Normal 0.00-0.20 [facility] Comment on above: Performed By: #### L [id number] #### [facility] ([facility]) [address] [place] [address] Basophils/100 WBC (Bld) 0.2 % Normal 0.0-1.0 [facility] Comment on above: Performed By: #### L [id number] #### [facility] ([facility]) [address] [place] [address] Eosinophils (Bld) [#/Vol] 0.00 10*3/uL Normal 0.00-0.50 [facility] Comment on above: Performed By: #### L [id number] #### [facility] ([facility]) [address] [place] [address] Eosinophils/100 WBC (Bld) 0.0 % Normal 0.0-6.0 [facility] Comment on above: Performed By: #### L [id number] #### [facility] ([facility]) [address] [place] [address] Erythrocyte distribution width (RBC) [Ratio] 13.7 % Normal 11.5-15.0 [facility] Comment on above: Performed By: #### L [id number] #### [facility] [address] [place] [address] ERYTHROCYTE MEAN CORPUSCULAR HEMOGLOBIN CONCENTRATION (G/DL) BY AUTOMATED 35.1 g/dL High 32.0-35.0 [facility] Comment on above: Performed By: #### L [id number] #### [facility] ([facility] [address] [address] Hematocrit (Bld) [Volume fraction] 37.0 % Normal 36.0-48.0 [facility] Comment on above: Performed By: #### L [id number] #### [facility] ([facility] [address] [place] [address] Hemoglobin (Bld) [Mass/Vol] 13.0 g/dL Normal 12.0-15.0 [facility] Comment on above: Performed By: #### L [id number] #### [facility] ([facility] [address] [place] [address] Immature granulocytes (Bld) [#/Vol] 0.05 10*3/uL Normal 0.00-0.20 [facility] Comment on above: Performed By: #### L [id number] #### [facility] ([facility]) [address] [place] [address] Immature granulocytes/100 WBC (Bld) 0.4 % Normal 0.0-1.0 [facility] Comment on above: Performed By: #### L [id number] #### [facility] ([facility]) [address] [place] [address] Lymphocytes (Bld) [#/Vol] 0.90 10*3/uL Low 1.20-4.00 [facility] Comment on above: Performed By: #### L [id number] #### [facility] ([facility]) [address] [place] [address] Lymphocytes/100 WBC (Bld) 8.0 % Low 20.0-45.0 [facility] Comment on above: Performed By: #### L [id number] #### [facility] ([facility] [address] [place] [address] MCH (RBC) [Entitic mass] 30.6 pg Normal 27.0-33.0 [facility] Comment on above: Performed By: #### L [id number] #### [facility] ([facility] [address] [place] [address] MCV (RBC) [Entitic vol] 87.1 fL Normal 82.0-98.0 [facility] Comment on above: Performed By: #### L [id number] #### [facility] ([facility]) [address] [place] [address] Monocytes (Bld) [#/Vol] 0.37 10*3/uL Normal 0.10-1.00 [facility] Comment on above: Performed By: #### L [id number] #### [facility] ([facility] [address] [place] [address] Monocytes/100 WBC (Bld) 3.3 % Low 5.0-12.0 [facility] Comment on above: Performed By: #### L [id number] #### [facility] ([facility] [address] [place] [address] Neutrophils (Bld) [#/Vol] 9.95 10*3/uL High 1.60-7.60 [facility] Comment on above: Performed By: #### L [id number] #### [facility] ([facility] [address] [place] [address] Neutrophils/100 WBC (Bld) 88.1 % High 40.0-72.0 [facility] Comment on above: Performed By: #### L [id number] #### [facility] ([facility] [address] [place] [address] NRBC (PER 100 WBCS) BY AUTOMATED COUNT 0.0 % Normal 0 [facility] Comment on above: Performed By: #### L [id number] #### [facility] ([facility]) [address] [place] [address] PLATELETS (10*3/UL) IN BLOOD AUTOMATED COUNT 318 10*3/uL Normal 150-400 [facility] Comment on above: Performed By: #### L [id number] #### [facility] ([facility]) [address] [place] [address] RBC (Bld) [#/Vol] 4.25 10*6/uL Normal 3.80-5.00 [facility] Comment on above: Performed By: #### L [id number] #### [facility] ([facility]) [address] [place] [address] WBC (Bld) [#/Vol] 11.29 10*3/uL High 4.00-10.60 [facility] Comment on above: Performed By: #### L [id number] #### [facility] ([facility]) [address] [place] [address] CHLAMYDIA TRACHOMATIS AND NE ISSERIA GONORRHEA, TMAon 07-06-2023 CHLAMYDIA TRACHOMATIS DNA PROBE (PRESENCE) IN UNSP SPEC Negative Normal Negative [facility] Comment on above: Result Comment: No C hlamydia trachomatis rRNA Detected. The Aptima Combo 2 Assay is a FDA approved target amplification nucleic acid probe test that utilizes target capture for the in vitro qualitative detection and differentiation of ribosomal RNA (rRNA) from Chlamydia trachomatis (CT) and/or Neisseria gonorrhoeae (GC) to aid the diagnosis of chlamydial and/or gonococcal urogenital disease using the [employer] System. The Aptima Combo 2 Assay involves target capture, target amplification by Plumbing Service Technician-Mediated Amplification (TMA), and the detection of the amplification products (amplicon) by the Hybridization Protection Assay (HPA). The internal process controls of the [employer] System monitor the target capture, amplification, and detection steps of the assay, this is not intended to control for sampling adequacy. Performed By: #### L [id number] ####[facility] ([facility])[address] [place] [address] NEISSERIA GONORRHOEAE DNA PROBE (PRESENCE) IN UNSP SPEC Negative Normal Negative [facility] Comment on above: Result Comment: No N eisseria gonorrhoeae rRNA Detected. The Aptima Combo 2 Assay is a FDA approved target amplification nucleic acid probe test that utilizes target capture for the in vitro qualitative detection and differentiation of ribosomal RNA (rRNA) from Chlamydia trachomatis (CT) and/or Neisseria gonorrhoeae (GC) to aid the diagnosis of chlamydial and/or gonococcal urogenital disease using the [employer] System. The Aptima Combo 2 Assay involves target capture, target amplification by Plumbing Service Technician-Mediated Amplification (TMA), and the detection of the amplification products (amplicon) by the Hybridization Protection Assay (HPA). The internal process controls of the [employer] System monitor the target capture, amplification, and detection steps of the assay, this is not intended to control for sampling adequacy. Performed By: #### L [id number] ####[facility] ([facility])[address] [place] [address] COMPREHENSIVE METABOLIC PANE Gerardo 07-06-2023 Albumin [Mass/Vol] 4.3 g/dL Normal 3.5-5.7 [facility] Comment on above: Performed By: #### L [id number] #### [facility] ([facility]) [address] [place] [address] ALP [Catalytic activity/Vol] 46 U/L Normal 34-104 [facility] Comment on above: Performed By: #### L [id number] #### [facility] ([facility]) [address] [place] [address] ALT [Catalytic activity/Vol] 10 U/L Normal 7-52 [facility] Comment on above: Performed By: #### L [id number] #### [facility] ([facility]) [address] [place] [address] Anion gap [Moles/Vol] 14 mmol/L Normal 7-20 [facility] Comment on above: Performed By: #### L [id number] #### [facility] ([facility]) [address] [place] [address] AST [Catalytic activity/Vol] 10 U/L Low 13-39 [facility] Comment on above: Performed By: #### L [id number] #### [facility] ([facility]) [address] [place] [address] Bilirubin [Mass/Vol] 0.5 mg/dL Normal 0.3-1.0 [facility] Comment on above: Performed By: #### L [id number] #### [facility] ([facility] [address] [place] [address] Calcium [Mass/Vol] 9.1 mg/dL Normal 8.6-10.3 [facility] Comment on above: Performed By: #### L [id number] #### [facility] ([facility]) [address] [place] [address] Chloride [Moles/Vol] 98 mmol/L Normal 98-107 [facility] Comment on above: Performed By: #### L [id number] #### [facility] ([facility]) [address] [place] [address] CO2 [Moles/Vol] 28 mmol/L Normal 21-31 [facility] Comment on above: Performed By: #### L [id number] #### [facility] ([facility]) [address] [place] [address] Creatinine [Mass/Vol] 1.68 mg/dL High 0.60-1.20 [facility] Comment on above: Performed By: #### L [id number] #### [facility] ([facility] [address] [place] [address] GLOMERULAR FILTRATION RATE ML/MIN/1.73 SQ M.PREDICTED 41.4 mL/min/1.73m*2 Low >60.0 [facility] Comment on above: Result Comment: The [facility]???s estimated glomerular filtration rate (eGFR) will no [...] group of individuals. Performed By: #### L [id number] #### [facility] ([facility]) [address] [place] [address] Glucose [Mass/Vol] 124 mg/dL High 70-100 [facility] Comment on above: Performed By: #### L [id number] #### [facility] ([facility]) [address] [place] [address] Potassium [Moles/Vol] 4.3 mmol/L Normal 3.5-5.1 [facility] Comment on above: Performed By: #### L [id number] #### [facility] ([facility]) [address] [place] [address] Protein [Mass/Vol] 6.9 g/dL Normal 6.0-8.3 [facility] Comment on above: Performed By: #### L [id number] #### [facility] ([facility]) [address] [place] [address] Sodium [Moles/Vol] 136 mmol/L Normal 136-145 [facility] Comment on above: Performed By: #### L [id number] #### [facility] ([facility]) [address] [place] [address] Urea nitrogen [Mass/Vol] 37 mg/dL High 7-25 [facility] Comment on above: Performed By: #### L [id number] #### [facility] ([facility]) [address] [place] [address] UREA NITROGEN/CREATININE (MASS RATIO) IN SER/PLAS 22.0 Normal [facility] Comment on above: Performed By: #### L [id number] #### [facility] ([facility]) [address] [place] [address] HIV COMBO 4Gon 07-06-2023 HIV COMBO 4G Negative Normal Negative [facility] Comment on above: Performed By: #### L [id number] #### [facility] ([facility]) [address] [place] [address] Labon 07-06-2023 Lab [id number] Blanca Rudolph 1990 Date Provider Department Kosse 07/06/2023 2243-[facility] RESOURCE DCC DRAW [facility] Family History Problem Relation Age of Onset Hypertension Mother Hypertension Mother's Sister Crohn's disease Mother's Sister Hypertension Maternal Grandmother Breast cancer Maternal Grandmother Kidney disease Other Migraines Other Family Status - Relation Status Age at Mother Mother's Sister Maternal Grandmother Other Normal [facility] Office Visiton 07-06-2023 Follow-up visit [id number] Blanca Rudolph 1990 Provider Department [place] 07/06/2023 Jason-ORIN [facility] Family History Problem Relation Age of Onset Hypertension Mother Hypertension Mother's Sister Crohn's disease Mother's Sister Hypertension Maternal Grandmother Breast cancer Maternal Grandmother Kidney disease Other Migraines Other Family Status - Relation Status Age at Mother Mother's Sister Maternal Grandmother Other Level of Service:73249 [place] OFFICE/OUTPATIENT ESTABLISHED MOD MDM 30 MIN Reason for Visit and Comments: Health Maintenance [619] Exposure to HIV [Other] Normal [facility] RPRon 07-06-2023 REAGIN AB PRESENCE IN SERUM BY RPR Reactive Abnormal Nonreactive [facility] Comment on above: Performed By: #### L [id number] #### [facility] ([facility]) [address] [place] [address] RPR QUANTITATIVEon RPR QUANT 1:16 High <1:1 [facility] Comment on above: Result Comment: The syphilis screen is a treponemal assay; patients with previously treated syphilis could be reactive on this assay, but nonreactive on the RPR Quant assay. Performed By: #### L [id number] ####[facility] ([facility])[address] [place] [address] URINALYSISon 07-06-2023 BILIRUBIN, TOTAL PRESENCE IN URINE Negative Normal Negative [facility] Comment on above: Performed By: #### L [id number] #### [facility] ([facility] [address] [place] [address] Clarity (U) Slightly Cloudy Abnormal Clear [facility] Comment on above: Performed By: #### L [id number] #### [facility] ([facility]) [address] [place] [address] Color (U) Yellow Normal Yellow [facility] Comment on above: Performed By: #### L [id number] #### [facility] ([facility]) [address] [place] [address] Glucose (U) [Mass/Vol] Negative Normal Negative [facility] Comment on above: Performed By: #### L [id number] #### [facility] ([facility]) [address] [place] [address] HEMOGLOBIN PRESENCE IN URINE Large Abnormal Negative [facility] Comment on above: Performed By: #### L [id number] #### [facility] ([facility]) [address] [place] [address] Ketones Ql (U) Negative Normal Negative [facility] Comment on above: Performed By: #### L [id number] #### [facility] ([facility]) [address] [place] [address] LEUKOCYTE ESTERASE PRESENCE IN URINE BY TEST STRIP Small Abnormal Negative [facility] Comment on above: Performed By: #### L [id number] #### [facility] ([facility]) [address] [place] [address] NITRITE PRESENCE IN URINE Negative Normal Negative [facility] Comment on above: Performed By: #### L [id number] #### [facility] ([facility] [address] [place] [address] pH (U) 5.0 [pH] Normal 5.0-8.0 [facility] Comment on above: Performed By: #### L [id number] #### [facility] ([facility] [address] [place] [address] Protein (U) [Mass/Vol] 100 mg/dL Abnormal Negative [facility] Comment on above: Performed By: #### L [id number] #### [facility] ([facility] [address] [place] [address] Specific gravity (U) [Rel density] 1.011 Low 1.015-1.020 [facility] Comment on above: Performed By: #### L [id number] #### [facility] ([facility]) [address] [place] [address] URINALYSIS MICROSCOPICon CASTS IN URINE Normal [facility] Comment on above: Performed By: #### L [id number] ####[facility] ([facility])[address] [place] [address] CRYSTALS IN URINE Normal [facility] Comment on above: Performed By: #### L [id number] ####[facility] ([facility])[address] [place] [address] RBC (#/HPF) IN URINE SEDIMENT >100 Abnormal None Seen [facility] Comment on above: Performed By: #### L [id number] ####[facility] ([facility])[address] [place] [address] SQUAMOUS EPITHELIAL CELLS (#/HPF) IN URINE SEDIMENT Many Abnormal None Seen, Occasional [facility] Comment on above: Performed By: #### L [id number] ####[facility] ([facility])[address] [place] [address] WBC (LEUKOCYTE) (#/HPF) IN URINE SEDIMENT 6-10 Abnormal None Seen [facility] Comment on above: Performed By: #### L [id number] ####[facility] ([facility] [place] [address] CBC AND AUTO DIFFon 06-28-19 24 ABSOLUTE BASOPHIL 0.0 X10E9/L Normal 0.0-0.[address] [facility] Comment on above: Performed By: #### C BCA, 78814-4, UPCR, CMP, 1987-08, , 2776-04, 2730-11, 33739-4 ####[facility] ([id number])[address] [address] ABSOLUTE NEUTROPHIL 7.7 X10E9/L High 1.5-6.6 [facility] Comment on above: Performed By: #### C BCA, 56369-4, UPCR, CMP, 1987-08, , 2776-04, 2730-11, 02232-8 ####[facility] ([id number])[address], [address], [place] [address] Basophils/100 WBC (Bld) 0.3 % Normal [facility] Comment on above: Performed By: #### C KINDRA, 82181-6, UPCR, CMP, 1987-08, , 2776-04, 2730-11, 99208-0 ####[facility] ([id number])[address] [address], [place] [address] Eosinophils (Bld) [#/Vol] 0.0 10*3/uL Normal 0.0-0.4 [facility] Comment on above: Performed By: #### C BCA, 76687-2, UPCR, CMP, 1987-08, , 2776-04, 2730-11, 73695-8 ####[facility] ([id number])[address], [address], [place] [address] Eosinophils/100 WBC (Bld) 0.4 % Normal [facility] Comment on above: Performed By: #### C BCA, 08685-8, UPCR, CMP, 1987-08, , 2776-04, 2730-11, 84841-0 ####[facility] ([id number])[address] [address] Erythrocyte distribution width (RBC) [Ratio] 14.8 % Normal 11.5-15.0 [facility] Comment on above: Performed By: #### C BCA, 27186-3, UPCR, CMP, 1987-08, , 2776-04, 2730-11, 17568-3 ####[facility] ([id number])[address], [address] [place] [address] Hematocrit (Bld) [Volume fraction] 36.5 % Normal 35-47 [facility] Comment on above: Performed By: #### C BCA, 59876-4, UPCR, CMP, 1987-08, , 2776-04, 2730-11, 96696-9 ####[facility] ([id number])[address], [address], [place] [address] Hemoglobin (Bld) [Mass/Vol] 12.5 g/dL Normal 11.7-15.5 [facility] Comment on above: Performed By: #### C KINDRA, 99030-6, UPCR, CMP, 1987-08, , 2776-04, 2730-11, 71959-6 ####[facility] ([id number])[address], [address] [place] [address] Lymphocytes (Bld) [#/Vol] 0.8 10*3/uL Low 1.0-3.5 [facility] Comment on above: Performed By: #### C BCA, 95623-7, UPCR, CMP, 1987-08, , 2776-04, 2730-11, 44488-5 ####[facility] ([id number])[address] [address] [place] [address] Lymphocytes/100 WBC (Bld) 9.4 % Normal [facility] Comment on above: Performed By: #### Nataliia BCA, 67072-0, UPCR, CMP, 1987-08, , 2776-04, 2730-11, 25169-7 ####[facility] ([id number])[address], [place] [address] MCH (RBC) [Entitic mass] 30.4 pg Normal 27-34 [facility] Comment on above: Performed By: #### C KINDRA, 64571-4, UPCR, CMP, 1987-08, , 2776-04, 2730-11, 72840-5 ####[facility] ([id number])[address], [address] [place] [address] MCHC (RBC) [Mass/Vol] 34.3 g/dL Normal 32-36 [facility] Comment on above: Performed By: #### C KINDRA, 18046-1, UPCR, CMP, 1987-08, , 2776-04, 2730-11, 47007-5 ####[facility] ([id number])[address] [address] [place] [address] MCV (RBC) [Entitic vol] 89 fL Normal 80-100 [facility] Comment on above: Performed By: #### C KINDRA, 70127-4, UPCR, CMP, 1987-08, , 2776-04, 2730-11, 35385-8 ####[facility] ([id number])[address] [address] [place] [address] Monocytes (Bld) [#/Vol] 0.4 10*3/uL Normal 0-0.9 [facility] Comment on above: Performed By: #### C KINDRA, 81063-8, UPCR, CMP, 1987-08, , 2776-04, 2730-11, 44607-6 ####[facility] ([id number])[address] [address] [place] [address] Monocytes/100 WBC (Bld) 4.3 % Normal [facility] Comment on above: Performed By: #### C KINDRA, 04252-5, UPCR, CMP, 1987-08, , 2776-04, 8, 16741-5 ####[facility] ([id number])[address], [place] [address] Neutrophils/100 WBC (Bld) 85.6 % Normal [facility] Comment on above: Performed By: #### C KINDRA, 50853-1, UPCR, CMP, 1987-08, , 2776-04, 8, 67741-2 ####[facility] ([id number])[address], [place] [address] Platelet mean volume (Bld) [Entitic vol] 7.7 fL Normal 7-12 [facility] Comment on above: Performed By: #### C KINDRA, 07263-3, UPCR, CMP, 1987-08, , 2776-04, 2730-11, 46731-2 ####[facility] ([id number])[address], [place] [address] Platelets (Bld) [#/Vol] 277 10*3/uL Normal 150-450 [facility] Comment on above: Performed By: #### C KINDRA, 20661-7, UPCR, CMP, 1987-08, , 2776-04, 2730-11, 21566-8 ####[facility] ([id number])[address], [place] [address] RBC COUNT 4.12 X10E12/L Normal 3.80-5.20 [facility] Comment on above: Performed By: #### C KINDRA, 52805-2, UPCR, CMP, 1987-08, , 2776-04, 8, 94532-0 ####[facility] ([id number])[address] [place] [address] WBC (Bld) [#/Vol] 8.9 10*3/uL Normal 4.0-11.[address] [facility] Comment on above: Performed By: #### C BCA, 75007-1, UPCR, CMP, 1987-08, , 2776-1, 2731-8, 72206-4 ####[facility] ([id number])[address] [place] [address] COMPREHENSIVE METABOLIC PANE Gerardo 06-28-2023 Albumin [Mass/Vol] 3.6 g/dL Normal 3.2-5.[address] [facility] Comment on above: Performed By: #### C BCA, 16735-6, UPCR, CMP, 1987-08, , 2776-1, 273-8, 08012-2 ####[facility] ([id number])[address] [address] [place] [address] ALP [Catalytic activity/Vol] 44 U/L Normal 39-130 [facility] Comment on above: Performed By: #### C BCA, 16078-6, UPCR, CMP, 1987-08, , 2776-1, 273-8, 75285-2 ####[facility] ([id number])[address] [address] [place] [address] ALT [Catalytic activity/Vol] 12 U/L Normal 0-31 [facility] Comment on above: Performed By: #### C BCA, 99719-2, UPCR, CMP, 1987-08, , 2776-04, 273-8, 45124-9 ####[facility] ([id number])[address] [address] [place] [address] Anion gap [Moles/Vol] 8 mmol/L Normal 5-15 [facility] Comment on above: Performed By: #### C BCA, 78514-2, UPCR, CMP, 1987-08, , 2776-04, 8, 69807-5 ####[facility] ([id number])[address], [place] [address] AST [Catalytic activity/Vol] 11 U/L Normal 0-41 [facility] Comment on above: Performed By: #### C BCA, 26047-6, UPCR, CMP, 1987-08, , 2776-04, 8, 00921-3 ####[facility] ([id number])[address], [place] [address] Bilirubin [Mass/Vol] 0.5 mg/dL Normal 0.3-1.2 [facility] Comment on above: Performed By: #### C BCA, 87309-5, UPCR, CMP, 1987-08, , 2776-04, 2730-11, 17425-7 ####[facility] ([id number])[address], [place] [address] Calcium [Mass/Vol] 8.6 mg/dL Normal 8.5-10.[address] [facility] Comment on above: Performed By: #### C BCA, 24053-0, UPCR, CMP, 1987-08, , 2776-04, 2730-11, 85556-7 ####[facility] ([id number])[address], [place] [address] Chloride [Moles/Vol] 99 mmol/L Normal 98-109 [facility] Comment on above: Performed By: #### C BCA, 32377-2, UPCR, CMP, 1987-08, , 2776-04, 8, 37057-4 ####[facility] ([id number])[address], [place] [address] CO2 [Moles/Vol] 33 mmol/L High 22-32 [facility] Comment on above: Performed By: #### C BCA, 43468-9, UPCR, CMP, 1987-08, , 2776-04, 2730-11, 88223-1 ####[facility] ([id number])[address], [place] [address] Creatinine [Mass/Vol] 1.63 mg/dL High 0.40-1.00 [facility] Comment on above: Result Comment: METH OD TRACEABLE TO IDMS STANDARD Performed By: #### C BCA, 49230-3, UPCR, CMP, 1987-08, , 2776-04, 2730-11, 36776-7 ####[facility] ([id number])[address] [place] [address] GFR/1.73 sq M.predicted among non-blacks MDRD (S/P/Bld) [Vol rate/Area] 43 mL/min/{1.73_m2} Low >59 [facility] Comment on above: Result Comment: Repo rted eGFR is based on theCKD-EPI 2020 equation that doesnot use a race coefficient. Performed By: #### C BCA, 13179-2, UPCR, CMP, 1987-08, , 2776-04, 2730-11, 88201-2 ####[facility] ([id number])[address] [place] [address] Glucose [Mass/Vol] 92 mg/dL Normal 65-[address] [facility] Comment on above: Performed By: #### C BCA, 49846-8, UPCR, CMP, 1987-08, , 2776-04, 2730-11, 35342-9 ####[facility] ([id number])[address], [place] [address] Potassium [Moles/Vol] 4.0 mmol/L Normal 3.5-5.0 [facility] Comment on above: Performed By: #### C BCA, 22283-2, UPCR, CMP, 1987-08, , 2776-04, 273-8, 69038-6 ####[facility] ([id number])[address], [place] [address] Protein [Mass/Vol] 6.3 g/dL Normal 6.0-8.[address] [facility] Comment on above: Performed By: #### C BCA, 63588-6, UPCR, CMP, 1987-08, , 2776-, 273-8, 89963-8 ####[facility] ([id number])[address] [place] [address] Sodium [Moles/Vol] 140 mmol/L Normal 134-[address] [facility] Comment on above: Performed By: #### C BCA, 39146-4, UPCR, CMP, 1987-08, , 2776-04, 8, 76108-1 ####[facility] ([id number])[address] [place] [address] Urea nitrogen [Mass/Vol] 25 mg/dL High 5-23 [facility] Comment on above: Performed By: #### C BCA, 36646-8, UPCR, CMP, 1987-08, , 2776-04, 8, 66197-5 ####[facility] ([id number])[address], [place] [address] CRP [Mass/Vol]on 06-28-2023 C REACTIVE PROTEIN 0.2 mg/dL Normal 0.000-0.744 [facility] Comment on above: Performed By: #### C BCA, 92753-0, UPCR, CMP, 1987-08, , 27710-28, 2738, 25857-1 ####[facility] ([id number])[address], [address] [place] [address] ESR Photometric method (Bld) [Velocity]on 06-28-2023 ESR, ERYTHROCYTE SEDIMENTATION RATE 2 mm/h Normal 0-20 [facility] Comment on above: Performed By: #### C BCA, 57373-3, UPCR, CMP, 1987-08, , 2776-, 2730-8, 90087-0 ####[facility] ([id number])[address] [place] [address] MAGNESIUMon 06-28-2023 Magnesium [Mass/Vol] 1.8 mg/dL Normal 1.8-2.6 [facility] Comment on above: Performed By: #### C BCA, 35792-4, UPCR, CMP, 1987-08, , 2776-, 2730-8, 69596-6 ####[facility] ([id number])[address] [address] [place] [address] PHOSPHORUSon 06-28-2023 Phosphate [Mass/Vol] 2.8 mg/dL Normal 2.4-4.9 [facility] Comment on above: Performed By: #### C BCA, 02970-0, UPCR, CMP, 1987-08, , 2776-, 2730-8, 77624-9 ####[facility] ([id number])[address] [place] [address] PROTEIN CREAT RATIOon 2023 RANDOM URINE PROTEIN 1070 mg/L High <120 [facility] Comment on above: Performed By: #### C BCA, 55123-7, UPCR, CMP, 1987-08, , 2776-04, 8, 80820-6 ####[facility] ([id number])[address], [address] [place] [address] Performed By: #### U PCR ####[facility] ([id number])[address], [place] [address] U/PRO/MACHINE STONECUTTER RATIO CALC 0.70 High <0.2 [facility] Comment on above: Result Comment: Neph rotic Syndrome is associated with ratios >3.5 Performed By: #### C BCA, 91484-6, UPCR, CMP, 1987-08, , 2776-, 273-8, 93299-7 ####[facility] ([id number])[address], [place] [address] U/PRO/MACHINE STONECUTTER RATIO CALC 0.71 High <0.2 [facility] Comment on above: Result Comment: Neph rotic Syndrome is associated with ratios >3.5 Performed By: #### U PCR ####[facility] ([id number])[address] [place] [address] URINE CREATININE,RDM 151.79 mg/dL Normal [facility] Comment on above: Performed By: #### C BCA, 27864-8, UPCR, CMP, 1987-08, , 2776-04, 8, 23135-4 ####[facility] ([id number])[address], [place] [address] URINE CREATININE,RDM 151.74 mg/dL Normal [facility] Comment on above: Performed By: #### U PCR ####[facility] ([id number])[address], [place] [address] Parathyrin.intact [Mass/Vol] on 06-28-2023 PTH INTACT 107 pg/mL High 12 [facility] Comment on above: Performed By: #### C BCA, 97338-8, UPCR, CMP, 1987-08, , 2776-, 273-8, 10238-8 ####[facility] ([id number])[address] [facility], [address], [place] [address] URINALYSISon 06-28-2023 Bilirubin Ql (U) Negative Normal NEG [facility] BLOOD/HGB Large Abnormal NEG [facility] Color (U) YELLOW Normal YELLOW [facility] Glucose Ql (U) Negative Normal NEG [facility] Ketones Ql (U) Negative Normal NEG [facility] Leukocyte esterase Test strip Ql (U) Negative Normal NEG [facility] MUCOUS PRESENT Abnormal NONE [facility] Nitrite Ql (U) Negative Normal NEG [facility] pH (U) 6.0 [pH] Normal 5.0-8.5 [facility] Protein Ql (U) 100 mg/dL Abnormal NEG [facility] R.B.CELLS 126 /hpf High 0-5 [facility] Specific gravity (U) [Rel density] 1.017 Normal 1.003-1.035 [facility] SQUAMOUS EPITHELIUM 1 /hpf Normal 0-5 [facility] TURBIDITY CLEAR Normal CLEAR [facility] Urobilinogen (U) [Mass/Vol] mg/dL Normal <1.1 [facility] W.B.CELLS 4 /hpf Normal 0-5 [facility] Vitamin D+Metabolites [Mass/ Vol]on 06-28-2023 VITAMIN D 25 HYD TOT 29.0 ng/mL Low 30-100 [facility] Comment on above: Result Comment: Amber min D status 25 [place] Vitamin D Deficiency <20 ng/mLInsufficiency 20-29 ng/mLSufficiency 30-100 ng/mLToxicity >100 ng/mLNOTE: A pediatric reference range has not beenestablished by the drywall installer of this kit.The [place] [employer] recommendsa Vitamin D level of = or >20ng/mL in infantsand children. Performed By: #### C [facility], 69722-1, UPCR, CMP, 1987-5, 37198-9, 4008-1, 2731-8, 94224-3 ####[facility] ([id number])[address] [facility], [place] [address] CT ABDOMEN AND PELVIS W CONT on 06-25-2023 CT ABDOMEN AND PELVIS W CONT Normal [facility] CBC AND AUTO DIFFon 06-24-19 ABSOLUTE BASOPHIL 0.1 X10E9/L Normal 0.0-0.[address] [facility] Comment on above: Performed By: #### Nataliia ARGUELLES CMP, 0-3 ####[facility] ([id number])[address] [place] [address] ABSOLUTE NEUTROPHIL 7.9 X10E9/L High 1.5-6.6 [facility] Comment on above: Performed By: #### Nataliia ARGUELLES CMP, 3039-3 ####[facility] ([id number])[address] [place] [address] 71847 Basophils/100 WBC (Bld) 0.5 % Normal [facility] Comment on above: Performed By: #### Nataliia ARGUELLES CMP, 3039-3 ####[facility] ([id number])[address] [place] [address]8033 Eosinophils (Bld) [#/Vol] 0.0 10*3/uL Normal 0.0-0.4 [facility] Comment on above: Performed By: #### Nataliia ARGUELLES CMP, 3039-3 ####[facility] ([id number])[address] [place] [address]36[address] Eosinophils/100 WBC (Bld) 0.2 % Normal [facility] Comment on above: Performed By: #### Nataliia ARGUELLES CMP, 3039-3 ####[facility] ([id number])[address] [place] [address] Erythrocyte distribution width (RBC) [Ratio] 14.9 % Normal 11.5-15.0 [facility] Comment on above: Performed By: #### Nataliia ARGUELLES CMP, 3039-06 ####[facility] ([id number])[address] [place] [address] Hematocrit (Bld) [Volume fraction] 36.0 % Normal 35-47 [facility] Comment on above: Performed By: #### Nataliia ARGUELLES CMP, 3039-06 ####[facility] ([id number])[address] [place] [address] Hemoglobin (Bld) [Mass/Vol] 12.5 g/dL Normal 11.7-15.5 [facility] Comment on above: Performed By: #### Nataliia ARGUELLES CMP, 3039-06 ####[facility] ([id number])[address] [place] [address] Lymphocytes (Bld) [#/Vol] 1.6 10*3/uL Normal 1.0-3.5 [facility] Comment on above: Performed By: #### Nataliia ARGUELLES CMP, 3039-06 ####[facility] ([id number])[address] [place] [address] 39599 Lymphocytes/100 WBC (Bld) 15.9 % Normal [facility] Comment on above: Performed By: #### Nataliia ARGUELLES CMP, 3039-06 ####[facility] ([id number])[address] [place] [address] 07104 MCH (RBC) [Entitic mass] 30.2 pg Normal 27-34 [facility] Comment on above: Performed By: #### Nataliia ARGUELLES CMP, 3039-06 ####[facility] ([id number])[address] [place] [address] 83790 MCHC (RBC) [Mass/Vol] 34.8 g/dL Normal 32-36 [facility] Comment on above: Performed By: #### Nataliia ARGUELLES CMP, 3039-06 ####[facility] ([id number])[address] [place] [address]801 MCV (RBC) [Entitic vol] 87 fL Normal 80-100 [facility] Comment on above: Performed By: #### Nataliia ARGUELLES CMP, 3 ####[facility] ([id number])[address] [place] [address] 95014 Monocytes (Bld) [#/Vol] 0.6 10*3/uL Normal 0-0.9 [facility] Comment on above: Performed By: #### Nataliia ARGUELLES CMP, 3039-06 ####[facility] ([id number])[address] [place] [address] 88557 Monocytes/100 WBC (Bld) 6.2 % Normal [facility] Comment on above: Performed By: #### Nataliia ARGUELLES CMP, 3039-06 ####[facility] ([id number])[address] [place] [address] 01898 Neutrophils/100 WBC (Bld) 77.2 % Normal [facility] Comment on above: Performed By: #### Nataliia ARGUELLES CMP, 3039-06 ####[facility] ([id number])[address] [place] [address] 57948 Platelet mean volume (Bld) [Entitic vol] 7.3 fL Normal 7-12 [facility] Comment on above: Performed By: #### Nataliia ARGUELLES CMP, 3039-06 ####[facility] ([id number])[address] [place] [address] 46598 Platelets (Bld) [#/Vol] 305 10*3/uL Normal 150-450 [facility] Comment on above: Performed By: #### Nataliia ARGUELLES CMP, 3039-3 ####[facility] ([id number])[address] [place] [address] [place] [address] RBC COUNT 4.15 X10E12/L Normal 3.80-5.20 [facility] Comment on above: Performed By: #### C KINDRA, CMP, 3040-3 ####[facility] ([id number])[address] [place] [address] 99953 WBC (Bld) [#/Vol] 10.2 10*3/uL Normal 4.0-11.0 [facility] Comment on above: Performed By: #### C BCA, CMP, 3039-3 ####[facility] ([id number])[address] [place] [address] 17488 COMPREHENSIVE METABOLIC PANE Gerardo 06-24-2023 Albumin [Mass/Vol] 3.8 g/dL Normal 3.2-5.[address] [facility] Comment on above: Performed By: #### C KINDRA, CMP, 3039-3 ####[facility] ([id number])[address] [place] [address] 82719 ALP [Catalytic activity/Vol] 46 U/L Normal 39-130 [facility] Comment on above: Performed By: #### C KINDRA, CMP, 0-3 ####[facility] ([id number])[address] [place] [address] 53488 ALT [Catalytic activity/Vol] 14 U/L Normal 0-31 [facility] Comment on above: Performed By: #### C BCA, CMP, 3040-3 ####[facility] ([id number])[address] [place] [address] 93924 Anion gap [Moles/Vol] 6 mmol/L Normal 5-15 [facility] Comment on above: Performed By: #### C BCA, CMP, 3040-3 ####[facility] ([id number])[address] [place] [address] 46039 AST [Catalytic activity/Vol] 13 U/L Normal 0-41 [facility] Comment on above: Performed By: #### C CORINA ARGUELLES, 0-3 ####[facility] ([id number])[address] [place] [address] 52820 Bilirubin [Mass/Vol] 0.6 mg/dL Normal 0.3-1.2 [facility] Comment on above: Performed By: #### Nataliia ARGUELLES CMP, 3039-3 ####[facility] ([id number])[address] [place] [address] 68478 Calcium [Mass/Vol] 8.4 mg/dL Low 8.5-10.[address] [facility] Comment on above: Performed By: #### Nataliia ARGUELLES CMP, 3039-3 ####[facility] ([id number])[address] [place] [address] 48293 Chloride [Moles/Vol] 102 mmol/L Normal 98-109 [facility] Comment on above: Performed By: #### Nataliia ARGUELLES CMP, 3039-3 ####[facility] ([id number])[address] [place] [address] 01455 CO2 [Moles/Vol] 28 mmol/L Normal 22-32 [facility] Comment on above: Performed By: #### Nataliia ARGUELLES CMP, 3039-3 ####[facility] ([id number])[address] [place] [address] 86415 Creatinine [Mass/Vol] 1.48 mg/dL High 0.40-1.00 [facility] Comment on above: Result Comment: METH OD TRACEABLE TO IDMS STANDARD Performed By: #### Nataliia ARGUELLES CMP, 0-3 ####[facility] ([id number])[address] [place] [address] 86600 GFR/1.73 sq M.predicted among non-blacks MDRD (S/P/Bld) [Vol rate/Area] 48 mL/min/{1.73_m2} Low >59 [facility] Comment on above: Result Comment: Repo rted eGFR is based on theD-EPI 2020 equation that doesnot use a race coefficient. Performed By: #### Nataliia ARGUELLES CMP, 3040-3 ####[facility] ([id number])[address] [place] [address] [place] [address] Glucose [Mass/Vol] 102 mg/dL High 65-[address] [facility] Comment on above: Performed By: #### Nataliia ARGUELLES CMP, 3040-3 ####[facility] ([id number])[address] [place] [address] 07607 Potassium [Moles/Vol] 3.9 mmol/L Normal 3.5-5.0 [facility] Comment on above: Performed By: #### Nataliia ARGUELLES CMP, 0-3 ####[facility] ([id number])[address] [place] [address] 76384 Protein [Mass/Vol] 6.5 g/dL Normal 6.0-8.[address] [facility] Comment on above: Performed By: #### Nataliia ARGUELLES CMP, 3040-3 ####[facility] ([id number])[address] [place] [address] 05425 Sodium [Moles/Vol] 136 mmol/L Normal 134-[address] [facility] Comment on above: Performed By: #### Nataliia ARGUELLES CMP, 3040-3 ####[facility] ([id number])[address] [place] [address] [place] [address] Urea nitrogen [Mass/Vol] 31 mg/dL High 5-23 [facility] Comment on above: Performed By: #### Nataliia ARGUELLES CMP, 3040-3 ####[facility] ([id number])[address] [place] [address] [place] [address] HCG ( test) Ql (U)o n 06-24-2023 Beta HCG ( test) Ql (U) Negative Normal NEG [facility] Comment on above: Performed By: #### 2 106-3 ####[facility] ([id number])[address] [place] [address], [place] [address] LIPASEon 06-24-2023 Lipase [Catalytic activity/Vol] 55 U/L High 17-40 [facility] Comment on above: Performed By: #### C BCA, CMP, 3040-3 ####[facility] ([id number])[address] [place] [address] [place] [address] URN MACROSCOPIC NURon 2023 BILIRUBIN BRENDEN Negative Normal [facility] Comment on above: Performed By: #### N UM ####[facility] ([id number])[address] [place] [address], [place] [address] BLOOD/HGB BRENDEN Large Abnormal [facility] Comment on above: Performed By: #### N UM ####[facility] ([id number])[address] [place] [address], [place] [address] GLUCOSE BRENDEN Negative Normal [facility] Comment on above: Performed By: #### N UM ####[facility] ([id number])[address] [place] [address] [place] [address] KETONES BRENDEN Negative Normal NEG [facility] Comment on above: Performed By: #### N UM ####[facility] ([id number])[address] [place] [address], [place] [address] LEUKOCYTE ESTERASE BRENDEN Negative Normal NEG [facility] Comment on above: Performed By: #### N UM ####[facility] ([id number])[address] [place] [address] [place] [address] NITRITE BRENDEN Negative Normal [facility] Comment on above: Performed By: #### N UM ####[facility] ([id number])[address] [place] [address], [place] [address] PH BRENDEN 5.5 Normal 5.0-8.5 [facility] Comment on above: Performed By: #### N UM ####[facility] ([id number])[address] [place] [address] PROTEIN BRENDEN >=[address] [facility] Comment on above: Performed By: #### N UM ####[facility] ([id number])[address] [place] [address]64[address] SPECIFIC GRAVITY BRENDEN 1.020 Normal 1.003-1.035 [facility] Comment on above: Performed By: #### N UM ####[facility] ([id number])[address] [place] [address] 63844 UROBILINOGEN BRENDEN 0.2 eu/dL Normal <1.1 [facility] Comment on above: Performed By: #### N UM ####[facility] ([id number])[address] [place] [address]A COR ARTERIES W OR WO [...] using the interactive PATEL form found at [email or web address] [email or web address] Individual major vessel AJ-130 scores are: LM [...] Micaela Reina of the department of radiology. Calcium Score interpretation and guidelines for asymptomatic individuals, 45 - 75 years of age are as follows: Estimated Risk of a Total Score Relative Risk Coronary Event Each Year 0 very low risk 2 per 1000 1-10 low risk 5 per 1000 11-100 intermediate risk 5 to 20 per 1000 101-400 moderately high risk more than 2 per 100 over 400 high risk between 2 and 5 per 100; approximately 15% chance of significant blockages; consideration should be given to obtaining stress echo or stress nuclear testing. Approved by Resident Sarah Quintanilla MD on 06/21/2023 8:36 AM I, Micaela Reina MD have personally reviewed the image(s) and agree with and/or edited the report Finalized by Micaela Reina MD on 06/21/2023 9:57 AM Normal [facility] TROPONIN Ion 06-20-2023 Troponin I.cardiac [Mass/Vol] ng/mL Normal 0.00-0.04 [facility] Comment on above: Performed By: #### C MP, 1987-, CBCA, 4485-9, 4498-2, 47043-2 #### [facility] ([id number]) [address] [place] [address] CBC AND AUTO DIFFon 06-19-19 24 ABSOLUTE BASOPHIL 0.0 X10E9/L Normal 0.0-0.2 [facility] Comment on above: Performed By: #### C BCA CMP, 2156-09, 2639-3, TSHR #### [facility] ([id number]) [address], [address] [place] [address] ABSOLUTE NEUTROPHIL 7.8 X10E9/L High 1.5-6.6 [facility] Comment on above: Performed By: #### C BCA, CMP, 2156-09, 2639-3, TSHR #### [facility] ([id number]) [address] [place] [address] Basophils/100 WBC (Bld) 0.3 % Normal [facility] Comment on above: Performed By: #### C BCA CMP, 2156-09, 3, TSHR #### [facility] ([id number]) [address] [address] [place] [address] Eosinophils (Bld) [#/Vol] 0.1 10*3/uL Normal 0.0-0.4 [facility] Comment on above: Performed By: #### C BCA, CMP, 2156-09, 3, TSHR #### [facility] ([id number]) [address] [facility] [address] [place] [address] Eosinophils/100 WBC (Bld) 0.6 % Normal [facility] Comment on above: Performed By: #### C BCA, CMP, 2156-09, 2638-06, TSHR #### [facility] ([id number]) [address] [address] [place] [address] Erythrocyte distribution width (RBC) [Ratio] 14.7 % Normal 11.5-15.0 [facility] Comment on above: Performed By: #### C BCA, [facility], 2156-09, 2638-06, TSHR #### [facility] ([id number]) [address] [address] Hematocrit (Bld) [Volume fraction] 38.0 % Normal 35-47 [facility] Comment on above: Performed By: #### C BCA, CMP, 2156-09, 2638-06, TSHR #### [facility] ([id number]) [address] [address] [place] [address] Hemoglobin (Bld) [Mass/Vol] 13.2 g/dL Normal 11.7-15.5 [facility] Comment on above: Performed By: #### C BCA, CMP, 2156-09, 3, TSHR #### [facility] ([id number]) [address] [address] Lymphocytes (Bld) [#/Vol] 1.1 10*3/uL Normal 1.0-3.5 [facility] Comment on above: Performed By: #### C BCA, CMP, 2156-09, 3, TSHR #### [facility] ([id number]) [address] [place] [address] Lymphocytes/100 WBC (Bld) 11.0 % Normal [facility] Comment on above: Performed By: #### C BCA, CMP, 2156-09, 2638-06, TSHR #### [facility] ([id number]) [address] [facility] [address] [place] [address] MCH (RBC) [Entitic mass] 30.4 pg Normal 27-34 [facility] Comment on above: Performed By: #### C BCA, CMP, 2156-09, 2638-06, TSHR #### [facility] ([id number]) [address] [place] [address] MCHC (RBC) [Mass/Vol] 34.9 g/dL Normal 32-36 [facility] Comment on above: Performed By: #### C BCA, CMP, 2156-09, 2638-06, TSHR #### [facility] ([id number]) [address], [address] [address] MCV (RBC) [Entitic vol] 87 fL Normal 80-100 [facility] Comment on above: Performed By: #### C BCA, CMP, 2156-09, 2638-06, TSHR #### [facility] ([id number]) [address] [facility] [address] [place] [address] Monocytes (Bld) [#/Vol] 0.7 10*3/uL Normal 0-0.9 [facility] Comment on above: Performed By: #### C BCA, CMP, 2156-09, 2638-3, TSHR #### [facility] ([id number]) [address] [place] [address] Monocytes/100 WBC (Bld) 7.2 % Normal [facility] Comment on above: Performed By: #### C BCA, CMP, 2156-09, 2638-3, TSHR #### [facility] ([id number]) [address] [place] [address] Neutrophils/100 WBC (Bld) 80.9 % Normal [facility] Comment on above: Performed By: #### C BCA, CMP, 2156-09, 2638-3, TSHR #### [facility] ([id number]) [address], [address] [place] [address] Platelet mean volume (Bld) [Entitic vol] 7.5 fL Normal 7-12 [facility] Comment on above: Performed By: #### C BCA, CMP, 2156-09, 2638-, TSHR #### [facility] ([id number]) [address], [address] [place] [address] Platelets (Bld) [#/Vol] 309 10*3/uL Normal 150-450 [facility] Comment on above: Performed By: #### C BCA, CMP, 2156-09, 2638-3, TSHR #### [facility] ([id number]) [address], [address] [place] [address] RBC COUNT 4.36 X10E12/L Normal 3.80-5.20 [facility] Comment on above: Performed By: #### C BCA, CMP, 2156-09, 2638-3, TSHR #### [facility] ([id number]) [address], [address] [place] [address] WBC (Bld) [#/Vol] 9.7 10*3/uL Normal 4.0-11.0 [facility] Comment on above: Performed By: #### C BCA, CMP, 2156-09, 2639-3, TSHR #### [facility] ([id number]) [address], [address] [place] [address] CK [Catalytic activity/Vol]o n 06-19-2023 CPK 24 U/L Normal 24-170 [facility] Comment on above: Performed By: #### C JUNAID, 1986-08, CBCA, 4485-9, 4498-2, 24011-1 #### [facility] ([id number]) [address], [address] [place] [address] COMPREHENSIVE METABOLIC PANE Gerardo 06-19-2023 Albumin [Mass/Vol] 3.9 g/dL Normal 3.2-5.3 [facility] Comment on above: Performed By: #### C JUNAID, 1986-08, CBCA, 4485-9, 4498-2, 89936-0 #### [facility] ([id number]) [address], [address] [place] [address] ALP [Catalytic activity/Vol] 38 U/L Low 39-130 [facility] Comment on above: Performed By: #### Nataliia QUIROGA, 1986-08, CBCA, 4485-9, 4498-2, 29925-7 #### [facility] ([id number]) [address], [address] [place] [address] ALT [Catalytic activity/Vol] 11 U/L Normal 0-31 [facility] Comment on above: Performed By: #### C JUNAID, 1986-08, CBCA, 4485-9, 4498-2, 55856-6 #### [facility] ([id number]) [address], [address] [place] [address] Anion gap [Moles/Vol] 9 mmol/L Normal 5-15 [facility] Comment on above: Performed By: #### Nataliia QUIROGA, 1986-08, CBCA, 4485-9, 4498-2, 75223-2 #### [facility] ([id number]) [address], [address] [place] [address] AST [Catalytic activity/Vol] 11 U/L Normal 0-41 [facility] Comment on above: Performed By: #### C JUNAID, 1986-08, CBCA, 4485-9, 4498-2, 70896-9 #### [facility] ([id number]) [address], [address] [place] [address] Bilirubin [Mass/Vol] 0.4 mg/dL Normal 0.3-1.2 [facility] Comment on above: Performed By: #### Nataliia QUIROGA, 1986-08, CBCA, 4485-9, 4498-2, 13119-1 #### [facility] ([id number]) [address], [address] [place] [address] Calcium [Mass/Vol] 9.0 mg/dL Normal 8.5-10.5 [facility] Comment on above: Performed By: #### C JUNAID, 1986-08, CBCA, 4485-9, 4498-2, 82648-3 #### [facility] ([id number]) [address], [address] [place] [address] Chloride [Moles/Vol] 104 mmol/L Normal 98-109 [facility] Comment on above: Performed By: #### Nataliia QUIROGA, 1986-08, CBCA, 4485-9, 4498-2, 16741-1 #### [facility] ([id number]) [address], [address] [place] [address] CO2 [Moles/Vol] 28 mmol/L Normal 22-32 [facility] Comment on above: Performed By: #### Nataliia QUIROGA, 1986-08, CBCA, 4485-9, 4498-2, 17560-9 #### [facility] ([id number]) [address], [address] [place] [address] Creatinine [Mass/Vol] 1.10 mg/dL High 0.40-1.00 [facility] Comment on above: Result Comment: METH OD TRACEABLE TO IDMS STANDARD Performed By: #### C JUNAID, 1986-08, CBCA, 4485-9, 4498-2, 42539-8 #### [facility] ([id number]) [address] [address] GFR/1.73 sq M.predicted among non-blacks MDRD (S/P/Bld) [Vol rate/Area] 69 mL/min/{1.73_m2} Normal >59 [facility] Comment on above: Result Comment: Reported eGFR is based on the CKD-EPI 2020 equation that does not use a race coefficient. Performed By: #### C JUNAID, 1986-08, CBCA, 448-9, 4498-2, 17464-3 #### [facility] ([id number]) [address], [address] [address] Glucose [Mass/Vol] 106 mg/dL High 65-99 [facility] Comment on above: Performed By: #### C JUNAID, 1986-08, CBCA, 448-9, 4498-2, 81873-7 #### [facility] ([id number]) [address] [address] Potassium [Moles/Vol] 3.6 mmol/L Normal 3.5-5.0 [facility] Comment on above: Performed By: #### C JUNAID, 1986-08, CBCA, 4485-9, 4498-2, 72554-5 #### [facility] ([id number]) [address] [address] Protein [Mass/Vol] 6.3 g/dL Normal 6.0-8.0 [facility] Comment on above: Performed By: #### C JUNAID, 1986-08, CBCA, 448-9, 4498-2, 25011-6 #### [facility] ([id number]) [address], [address] [place] [address] Sodium [Moles/Vol] 141 mmol/L Normal 134-146 [facility] Comment on above: Performed By: #### C JUNAID, 1986-08, CBCA, 4485-9, 4498-2, 80364-0 #### [facility] ([id number]) [address], [address] [place] [address] Urea nitrogen [Mass/Vol] 21 mg/dL Normal 5-23 [facility] Comment on above: Performed By: #### C JUNAID, 1986-08, CBCA, 448-9, 4498-2, 03211-7 #### [facility] ([id number]) [address], [address] [place] [address] HGB A1C (GLYCO-HGB)on 2023 Glucose [Mass/Vol] 105 mg/dL Normal [facility] HbA1c (Bld) [Mass fraction] 5.3 % Normal 4.4-5.6 [facility] Comment on above: Result Comment: NOTE ADA Guidelines Result HgbA1c Normal : less than 5.7 % Prediabetes : 5.7 % to 6.4 % Diabetes : > 6.4 % Use with caution in patients with abnormal hemoglobin variants as the half-life of red blood cells and in vivo glycation rates are affected. Lipid 1996 panelon Cholesterol [Mass/Vol] 108 mg/dL Low 150-200 [facility] Comment on above: Performed By: #### C JUNAID, 1986-08, CBCA, 4485-9, 4498-2, 36005-9 #### [facility] ([id number]) [address], [address] [place] [address] Cholesterol in HDL [Mass/Vol] 37 mg/dL Low >39 [facility] Comment on above: Result Comment: HDL <40 mg/dL - High Risk HDL > or = 40mg/dL- Desirable HDL >60 mg/dL - Negative Risk Performed By: #### Nataliia QUIROGA, 1986-08, CBCA, 4485-9, 4498-2, 58220-4 #### [facility] ([id number]) [address], [address] [place] [address] Cholesterol in LDL [Mass/Vol] 52 mg/dL Normal <130 [facility] Comment on above: Result Comment: LDL <100 mg/dL - Desirable LDL >160 mg/dL - High Risk Performed By: ###Benita William MP, 1986-08, CBCA, 4485-9, 4498-2, 51847-2 #### [facility] ([id number]) [address], [address] [place] [address] Cholesterol in VLDL [Mass/Vol] 19 mg/dL Normal 0-30 [facility] Comment on above: Performed By: ###Benita William MP, 1986-08, CBCA, 4485-9, 4498-2, 08617-7 #### [facility] ([id number]) [address], [address] [place] [address] CHOLESTEROL:HDL 2.9 Normal 1.0-5.0 [facility] Comment on above: Performed By: #### Nataliia QUIROGA, 1986-08, CBCA, 4485-9, 4498-2, 91937-6 #### [facility] ([id number]) [address], [address] [place] [address] Triglyceride [Mass/Vol] 96 mg/dL Normal 27-150 [facility] Comment on above: Performed By: #### Nataliia QUIROGA, 1986-08, CBCA, 4485-9, 4498-2, 50179-4 #### [facility] ([id number]) [address], [address] [place] [address] MAGNESIUMon 06-19-2023 Magnesium [Mass/Vol] 1.8 mg/dL Normal 1.8-2.6 [facility] Comment on above: Performed By: #### Nataliia QUIROGA, 1986-08, CBCA, 4485-9, 4498-2, 32169-8 #### [facility] ([id number]) [address], [address] [place] [address] Myoglobin [Mass/Vol]on 06-19 SERUM MYOGLOBIN 20.4 ng/mL Normal 14.3-65.8 [facility] Comment on above: Performed By: #### Nataliia QUIROGA, 1986-08, CBCA, 4485-9, 4498-2, 17449-7 #### [facility] ([id number]) [address], [address] [place] [address] Natriuretic peptide B [Mass/ Vol]on 06-19-2023 Natriuretic peptide B (Bld) [Mass/Vol] 13 pg/mL Normal <100.0 [facility] Comment on above: Performed By: #### Nataliia QUIROGA, 1986-08, CBCA, 4485-9, 4498-2, 26288-3 #### [facility] ([id number]) [address], [address] [place] [address] TROPONIN Ion 06-19-2023 Troponin I.cardiac [Mass/Vol] ng/mL Normal 0.00-0.04 [facility] Comment on above: Performed By: #### Nataliia QUIROGA, 1986-08, CBCA, 4485-9, 4498-2, 44718-6 #### [facility] ([id number]) [address], [address] [place] [address] Troponin I.cardiac [Mass/Vol] ng/mL Normal 0.00-0.04 [facility] Comment on above: Performed By: #### C JUNAID, 1986-08, CBCA, 4485-9, 4498-2, 85221-7 #### [facility] ([id number]) [address], [address] [place] [address] TSH WITH REFLEXon 06-19-2023 TSH 1.95 uIU/mL Normal 0.49-4.67 [facility] Comment on above: Performed By: #### C JUNAID, 1986-08, CBCA, 4485-9, 4498-2, 40926-1 #### [facility] ([id number]) [address], [address] [place] [address] Troponin I.cardiac (Bld) [Ma ss/Vol]on 06-19-2023 PORTABLE TROPONIN <0.01 Normal 0.00-0.08 [facility] Comment on above: Result Comment: NEW REFERENCE RANGE Performed By: #### 4 2757-5 #### [facility] ([id number]) [address] [place] [address] Urine collection deviceon ER EXTRA URINES ER EXTRA URINE ORDER IN PROCESS Normal [facility] XR CHEST 1 VWon 06-19-2023 XR [...] Stanley MD on 06/19/2023 11:00 AM Normal [facility] CT ABDOMEN AND PELVIS WO CON Ton 06-16-2023 CT ABDOMEN AND PELVIS WO CONT Normal [facility] HCG ( test) Ql (U)o n 06-16-2023 Beta HCG ( test) Ql (U) Negative Normal NEG [facility] Comment on above: Performed By: #### 2 106-3 ####[facility] ([id number])[address] [place] [address] [place] [address] URN MACROSCOPIC NURon 2023 BILIRUBIN BRENDEN Negative Normal NEG [facility] Comment on above: Performed By: #### N UM ####[facility] ([id number])[address] [place] [address] [place] [address] BLOOD/HGB BRENDEN Large Abnormal NEG [facility] Comment on above: Performed By: #### N UM ####[facility] ([id number])[address] [place] [address] [place] [address] GLUCOSE BRENDEN Negative Normal NEG [facility] Comment on above: Performed By: #### N UM ####[facility] ([id number])[address] [place] [address] [place] [address] KETONES BRENDEN Negative Normal NEG [facility] Comment on above: Performed By: #### N UM ####[facility] ([id number])[address] [place] [address] [place] [address] LEUKOCYTE ESTERASE BRENDEN Negative Normal NEG [facility] Comment on above: Performed By: #### N UM ####[facility] ([id number])[address] [place] [address] [place] [address] NITRITE BRENDEN Negative Normal NEG [facility] Comment on above: Performed By: #### N UM ####[facility] ([id number])[address] [place] [address] [place] [address] PH BRENDEN 5.5 Normal 5.0-8.5 [facility] Comment on above: Performed By: #### N UM ####[facility] ([id number])[address] [place] [address] [place] [address] PROTEIN BRENDEN >=[address] [facility] Comment on above: Performed By: #### N UM ####[facility] ([id number])[address] [place] [address] SPECIFIC GRAVITY BRENDEN 1.020 Normal 1.003-1.035 [facility] Comment on above: Performed By: #### N UM ####[facility] ([id number])[address] [place] [address] UROBILINOGEN BRENDEN 0.2 eu/dL Normal <1.1 [facility] Comment on above: Performed By: #### N UM ####[facility] ([id number])[address] [place] [address] BASIC METABOLIC PANLon 06-14 Anion gap [Moles/Vol] 11 mmol/L Normal 5-15 [facility] Comment on above: Performed By: #### C GAVI, BMP, 58909-6, 2777-1, 2731-8, 83482-1 #### [facility] ([id number]) [address], [address] [place] [address] Calcium [Mass/Vol] 8.7 mg/dL Normal 8.5-10.5 [facility] Comment on above: Performed By: #### Nataliia GATICA, BMP, 22932-8, 7-1, 2731-8, 37232-7 #### [facility] ([id number]) [address] [place] [address] Chloride [Moles/Vol] 99 mmol/L Normal 98-109 [facility] Comment on above: Performed By: #### C BC, BMP, 35140-0, 2777-1, 2731-8, 57064-4 #### [facility] ([id number]) [address] [place] [address] CO2 [Moles/Vol] 30 mmol/L Normal 22-32 [facility] Comment on above: Performed By: #### C BC, BMP, 48979-8, 2777-1, 2731-8, 97631-4 #### [facility] ([id number]) [address], [address] [place] [address] Creatinine [Mass/Vol] 1.68 mg/dL High 0.40-1.00 [facility] Comment on above: Result Comment: METH OD TRACEABLE TO IDMS STANDARD Performed By: #### C BC, BMP, 02820-0, 2777-1, 2731-8, 92011-8 #### [facility] ([id number]) [address], [facility] [address] [place] [address] GFR/1.73 sq M.predicted among non-blacks MDRD (S/P/Bld) [Vol rate/Area] 41 mL/min/{1.73_m2} Low >59 [facility] Comment on above: Result Comment: Reported eGFR is based on the CKD-EPI 2020 equation that does not use a race coefficient. Performed By: #### C BC, BMP, 24637-3, 2777-1, 2731-8, 87428-6 #### [facility] ([id number]) [address], [address] [place] [address] Glucose [Mass/Vol] 166 mg/dL High 65-99 [facility] Comment on above: Performed By: #### C BC, BMP, 27578-5, 2777-1, 2731-8, 48455-4 #### [facility] ([id number]) [address], [address] [place] [address] Potassium [Moles/Vol] 4.0 mmol/L Normal 3.5-5.0 [facility] Comment on above: Performed By: #### C BC, BMP, 04913-3, 2777-1, 2731-8, 95237-6 #### [facility] ([id number]) [address], [address] [place] [address] Sodium [Moles/Vol] 140 mmol/L Normal 134-146 [facility] Comment on above: Performed By: #### C BC, BMP, 59347-9, 2777-1, 2731-8, 04577-0 #### [facility] ([id number]) [address], [address] [place] [address] Urea nitrogen [Mass/Vol] 33 mg/dL High 5-23 [facility] Comment on above: Performed By: #### Nataliia BC, BMP, 97804-0, 7-1, 2731-8, 07546-6 #### [facility] ([id number]) [address], [address] [place] [address] COMPLETE BLOOD COUNTon 06-14 Erythrocyte distribution width (RBC) [Ratio] 14.8 % Normal 11.5-15.0 [facility] Comment on above: Performed By: #### Nataliia BC, BMP, 99755-0, 7-1, 2731-8, 00682-5 #### [facility] ([id number]) [address] [address] [place] [address] Hematocrit (Bld) [Volume fraction] 36.5 % Normal 35-47 [facility] Comment on above: Performed By: #### Nataliia BC, BMP, 86247-7, 2776-1, 2731-8, 37208-4 #### [facility] ([id number]) [address] [address] [place] [address] Hemoglobin (Bld) [Mass/Vol] 12.5 g/dL Normal 11.7-15.5 [facility] Comment on above: Performed By: #### C BC, BMP, 78704-9, 2777-1, 2731-8, 01862-1 #### [facility] ([id number]) [address] [address] [place] [address] MCH (RBC) [Entitic mass] 29.9 pg Normal 27-34 [facility] Comment on above: Performed By: #### Nataliia BC, BMP, 45690-4, 2777-1, 2731-8, 05729-1 #### [facility] ([id number]) [address] [place] [address] MCHC (RBC) [Mass/Vol] 34.4 g/dL Normal 32-36 [facility] Comment on above: Performed By: #### Nataliia BC, BMP, 76119-3, 2777-1, 2731-8, 67701-1 #### [facility] ([id number]) [address], [facility] [address] [place] [address] MCV (RBC) [Entitic vol] 87 fL Normal 80-100 [facility] Comment on above: Performed By: #### Nataliia BC, BMP, 19280-4, 7-1, 273-8, 17053-4 #### [facility] ([id number]) [address], [address] [place] [address] Platelet mean volume (Bld) [Entitic vol] 7.9 fL Normal 7-12 [facility] Comment on above: Performed By: #### Nataliia GATICA, BMP, 96818-7, 7-1, 2731-8, 25383-4 #### [facility] ([id number]) [address], [address] [place] [address] Platelets (Bld) [#/Vol] 292 10*3/uL Normal 150-450 [facility] Comment on above: Performed By: #### Nataliia BC, BMP, 72800-1, 2777-1, 2731-8, 65231-3 #### [facility] ([id number]) [address], [address] [place] [address] RBC COUNT 4.20 X10E12/L Normal 3.80-5.20 [facility] Comment on above: Performed By: #### C BC, BMP, 15626-8, 2777-1, 2731-8, 52038-9 #### [facility] ([id number]) [address] [place] [address] WBC (Bld) [#/Vol] 8.3 10*3/uL Normal 4.0-11.0 [facility] Comment on above: Performed By: #### C BC, BMP, 79353-1, 2777-1, 2731-8, 92920-9 #### [facility] ([id number]) [address], [address] [place] [address] MAGNESIUMon 06-14-2023 Magnesium [Mass/Vol] 1.8 mg/dL Normal 1.8-2.6 [facility] Comment on above: Performed By: #### C BC, BMP, 89851-9, 2777-1, 2731-8, 88095-5 #### [facility] ([id number]) [address], [address] [place] [address] NUC STRESS EXERCISEon 2023 NUC STRESS EXERCISE NUC STRESS EXERCISE CLINICAL INFORMATION: Unstable angina. Indication: * Evaluation of extent and severity of coronary artery disease * Risk stratification-post myocardial infarction/preoperati ve assessment/general assessment of acute chest pain Technique: [...] Mario Ribera on 06/14/2023 12:01 PM Normal [facility] PHOSPHORUSon 06-14-2023 Phosphate [Mass/Vol] 3.1 mg/dL Normal 2.4-4.9 [facility] Comment on above: Performed By: #### C BC, BMP, 93694-9, 2777-1, 2731-8, 91027-2 #### [facility] ([id number]) [address], [address] [place] [address] PROTEIN CREAT RATIOon 2023 RANDOM URINE PROTEIN 1140 mg/L High <120 [facility] Comment on above: Performed By: #### U PCR #### [facility] ([id number]) [address] [place] [address] U/PRO/MACHINE STONECUTTER RATIO CALC 1.89 High <0.2 [facility] Comment on above: Result Comment: Neph rotic Syndrome is associated with ratios >3.5 Performed By: #### U PCR #### [facility] ([id number]) [address] [place] [address] URINE CREATININE,RDM 60.16 mg/dL Normal [facility] Comment on above: Performed By: #### U PCR #### [facility] ([id number]) [address], [address] [place] [address] Parathyrin.intact [Mass/Vol] on 06-14-2023 PTH INTACT 80 pg/mL Normal 12-88 [facility] Comment on above: Performed By: #### C BC, [facility], 18369-0, 2777-1, 2731-8, 07633-9 #### [facility] ([id number]) [address] [place] [address], [address] [place] [address] URINALYSISon 06-14-2023 Bilirubin Ql (U) Negative Normal NEG [facility] BLOOD/HGB Large Abnormal NEG [facility] Color (U) YELLOW Normal YELLOW [facility] Glucose Ql (U) Negative Normal NEG [facility] Ketones Ql (U) Negative Normal NEG [facility] Leukocyte esterase Test strip Ql (U) Negative Normal NEG [facility] MUCOUS PRESENT Abnormal NONE [facility] Nitrite Ql (U) Negative Normal NEG [facility] pH (U) 6.5 [pH] Normal 5.0-8.5 [facility] Protein Ql (U) 200 mg/dL Abnormal NEG [facility] R.B.CELLS 146 /hpf High 0-5 [facility] Specific gravity (U) [Rel density] 1.009 Normal 1.003-1.035 [facility] SQUAMOUS EPITHELIUM <1 Normal 0-5 [facility] TURBIDITY CLEAR Normal CLEAR [facility] Urobilinogen (U) [Mass/Vol] mg/dL Normal <1.1 [facility] W.B.CELLS 4 /hpf Normal 0-5 [facility] Vitamin D+Metabolites [Mass/ Vol]on 06-14-2023 VITAMIN D 25 HYD TOT 24.0 ng/mL Low 30-100 [facility] Comment on above: Result Comment: Vitamin D status 25 [place] Vitamin D Deficiency <20 ng/mL Insufficiency 20-29 ng/mL Sufficiency 30-100 ng/mL Toxicity >100 ng/mL NOTE: A pediatric reference range has not been established by the drywall installer of this kit. The [employer] recommends a Vitamin D level of = or >20ng/mL in infants and children. Performed By: #### C BC, BMP, 70130-9, 2777-1, 2731-8, 27084-5 #### [facility] ([id number]) [address] [facility], [address] [place] [address] BASIC METABOLIC PANLon 06-03 Anion gap [Moles/Vol] 9 mmol/L Normal 5-15 [facility] Comment on above: Performed By: #### C BCA, BMP, 3040-3, PINR, 62125-9, LIVR, 58132-9, 2639-3, 14375-9, THYR, 63110-8 ####[facility] ([id number])[address] [place] [address] Calcium [Mass/Vol] 8.5 mg/dL Normal 8.5-10.[address] [facility] Comment on above: Performed By: #### C BCA, BMP, 3040-3, PINR, 43901-1, LIVR, 88644-9, 2639-3, 02014-1, THYR, 72550-1 ####[facility] ([id number])[address] [place] [address] Chloride [Moles/Vol] 100 mmol/L Normal 98-109 [facility] Comment on above: Performed By: #### C BCA, BMP, 3040-3, PINR, 66803-6, LIVR, 47525-2, 2639-3, 73672-4, THYR, 54541-2 ####[facility] ([id number])[address] [place] [address] CO2 [Moles/Vol] 24 mmol/L Normal 22-32 [facility] Comment on above: Performed By: #### C BCA, BMP, 3040-3, PINR, 78445-0, LIVR, 39931-6, 2639-3, 67848-0, THYR, 07913-2 ####[facility] ([id number])[address] [place] [address] Creatinine [Mass/Vol] 1.70 mg/dL High 0.40-1.00 [facility] Comment on above: Result Comment: METH OD TRACEABLE TO IDMS STANDARD Performed By: #### C BCA, BMP, 3040-3, PINR, 63933-3, LIVR, 87030-0, 2639-3, 29645-3, THYR, 61378-3 ####[facility] ([id number])[address] [place] [address] GFR/1.73 sq M.predicted among non-blacks MDRD (S/P/Bld) [Vol rate/Area] 41 mL/min/{1.73_m2} Low >59 [facility] Comment on above: Result Comment: Repo rted eGFR is based on theCKD-EPI 2020 equation that doesnot use a race coefficient. Performed By: #### C BCA, BMP, 3040-3, PINR, 81326-6, LIVR, 24524-2, 2639-3, 31631-0, THYR, 04053-8 ####[facility] ([id number])[address] [place] [address] Glucose [Mass/Vol] 213 mg/dL High 65-[address] [facility] Comment on above: Performed By: #### C BCA, BMP, 3040-3, PINR, 79621-1, LIVR, 15760-0, 2639-3, 35668-3, THYR, 46779-9 ####[facility] ([id number])[address] [place] [address] Potassium [Moles/Vol] 4.4 mmol/L Normal 3.5-5.0 [facility] Comment on above: Performed By: #### C BCA, BMP, 3040-3, PINR, 27664-6, LIVR, 86257-1, 2639-3, 73621-0, THYR, 40602-9 ####[facility] ([id number])[address] [place] [address] 43154 Sodium [Moles/Vol] 133 mmol/L Low 134-[address] [facility] Comment on above: Performed By: #### C BCA, BMP, 3040-3, PINR, 48742-3, LIVR, 74318-3, 2639-3, 57398-5, THYR, 11120-1 ####[facility] ([id number])[address] [place] [address] 06599 Urea nitrogen [Mass/Vol] 23 mg/dL Normal 5-23 [facility] Comment on above: Performed By: #### C BCA, BMP, 3040-3, PINR, 26931-8, LIVR, 48762-6, 2639-3, 40814-8, THYR, 47381-2 ####[facility] ([id number])[address] [place] [address] 76719 CBC AND AUTO DIFFon 06-03-19 24 ABSOLUTE BASOPHIL 0.0 X10E9/L Normal 0.0-0.[address] [facility] Comment on above: Performed By: #### C BCA, BMP, 3040-3, PINR, 60265-5, LIVR, 30087-6, 2639-3, 24915-7, THYR, 88747-5 ####[facility] ([id number])[address] [place] [address] 19765 ABSOLUTE NEUTROPHIL 6.5 X10E9/L Normal 1.5-6.6 [facility] Comment on above: Performed By: #### C BCA, BMP, 3040-3, PINR, 36929-1, LIVR, 37527-6, 2639-3, 68230-4, THYR, 75623-8 ####[facility] ([id number])[address] [place] [address] 90696 Basophils/100 WBC (Bld) 0.2 % Normal [facility] Comment on above: Performed By: #### C BCA, BMP, 3040-3, PINR, 68301-4, LIVR, 51158-8, 2639-3, 65083-3, THYR, 80664-5 ####[facility] ([id number])[address] [place] [address] 81774 Eosinophils (Bld) [#/Vol] 0.0 10*3/uL Normal 0.0-0.4 [facility] Comment on above: Performed By: #### C BCA, BMP, 3040-3, PINR, 99656-9, LIVR, 83953-8, 2639-3, 11186-6, THYR, 25728-0 ####[facility] ([id number])[address] [place] [address] 01081 Eosinophils/100 WBC (Bld) 0.1 % Normal [facility] Comment on above: Performed By: #### C BCA, BMP, 3040-3, PINR, 23978-8, LIVR, 80871-8, 2639-3, 00975-1, THYR, 72756-4 ####[facility] ([id number])[address] [place] [address] 96690 Erythrocyte distribution width (RBC) [Ratio] 14.9 % Normal 11.5-15.0 [facility] Comment on above: Performed By: #### C BCA, BMP, 3040-3, PINR, 76917-1, LIVR, 98846-7, 2639-3, 69221-4, THYR, 56849-9 ####[facility] ([id number])[address] [place] [address] 10618 Hematocrit (Bld) [Volume fraction] 36.0 % Normal 35-47 [facility] Comment on above: Performed By: #### C BCA, BMP, 3040-3, PINR, 87512-0, LIVR, 88269-2, 2639-3, 15113-8, THYR, 85478-3 ####[facility] ([id number])[address] [place] [address] 80385 Hemoglobin (Bld) [Mass/Vol] 12.8 g/dL Normal 11.7-15.5 [facility] Comment on above: Performed By: #### C BCA, BMP, 3040-3, PINR, 98155-9, LIVR, 58859-4, 2639-3, 20274-2, THYR, 37767-6 ####[facility] ([id number])[address] [place] [address] 42577 Lymphocytes (Bld) [#/Vol] 0.4 10*3/uL Low 1.0-3.5 [facility] Comment on above: Performed By: #### C BCA, BMP, 3040-3, PINR, 21381-7, LIVR, 21889-5, 2639-3, 04944-1, THYR, 43001-3 ####[facility] ([id number])[address] [place] [address] 11311 Lymphocytes/100 WBC (Bld) 6.2 % Normal [facility] Comment on above: Performed By: #### C BCA, BMP, 3040-3, PINR, 78193-6, LIVR, 90844-5, 2639-3, 29228-3, THYR, 04315-9 ####[facility] ([id number])[address] [place] [address] 18149 MCH (RBC) [Entitic mass] 30.2 pg Normal 27-34 [facility] Comment on above: Performed By: #### C BCA, BMP, 3040-3, PINR, 07531-8, LIVR, 73023-1, 2639-3, 21891-8, THYR, 43555-6 ####[facility] ([id number])[address] [place] [address] 12514 MCHC (RBC) [Mass/Vol] 35.4 g/dL Normal 32-36 [facility] Comment on above: Performed By: #### C BCA, BMP, 3040-3, PINR, 50123-9, LIVR, 05683-8, 2639-3, 69767-9, THYR, 59528-2 ####[facility] ([id number])[address] [place] [address] 47763 MCV (RBC) [Entitic vol] 85 fL Normal 80-100 [facility] Comment on above: Performed By: #### C BCA, BMP, 3040-3, PINR, 78619-5, LIVR, 97467-7, 2639-3, 69684-2, THYR, 40489-9 ####[facility] ([id number])[address] [place] [address] 83384 Monocytes (Bld) [#/Vol] 0.2 10*3/uL Normal 0-0.9 [facility] Comment on above: Performed By: #### C BCA, BMP, 3040-3, PINR, 59242-9, LIVR, 17531-3, 2639-3, 74724-6, THYR, 32111-5 ####[facility] ([id number])[address] [place] [address] 02279 Monocytes/100 WBC (Bld) 3.1 % Normal [facility] Comment on above: Performed By: #### C BCA, BMP, 3040-3, PINR, 18316-3, LIVR, 99773-1, 2639-3, 41250-9, THYR, 59413-6 ####[facility] ([id number])[address] [place] [address] 45192 Neutrophils/100 WBC (Bld) 90.4 % Normal [facility] Comment on above: Performed By: #### C BCA, BMP, 3040-3, PINR, 74260-2, LIVR, 82393-5, 2639-3, 00770-5, THYR, 59823-4 ####[facility] ([id number])[address] [place] [address] 22927 Platelet mean volume (Bld) [Entitic vol] 6.9 fL Low 7-12 [facility] Comment on above: Performed By: #### C BCA, BMP, 3040-3, PINR, 30473-8, LIVR, 24734-9, 2639-3, 87200-5, THYR, 86058-1 ####[facility] ([id number])[address] [place] [address] 42807 Platelets (Bld) [#/Vol] 299 10*3/uL Normal 150-450 [facility] Comment on above: Performed By: #### C BCA, BMP, 3040-3, PINR, 77832-4, LIVR, 52054-1, 2639-3, 79241-0, THYR, 61496-2 ####[facility] ([id number])[address] [place] [address] 35814 RBC COUNT 4.23 X10E12/L Normal 3.80-5.20 [facility] Comment on above: Performed By: #### C BCA, BMP, 3040-3, PINR, 73796-5, LIVR, 39584-4, 2639-3, 05669-0, THYR, 56156-2 ####[facility] ([id number])[address] [place] [address] 15390 WBC (Bld) [#/Vol] 7.2 10*3/uL Normal 4.0-11.[address] [facility] Comment on above: Performed By: #### C BCA, BMP, 3040-3, PINR, 35623-2, LIVR, 03971-8, 2639-3, 91564-8, THYR, 39665-5 ####[facility] ([id number])[address] [place] [address] 67760 DRUG SCREEN, URINEon 024 AMPHETAMINE/METHAMP Negative Normal NEG [facility] Comment on above: Result Comment: AMPH /METH screening cut off = 1000 ng/mL Performed By: #### D GARCÍA ####[facility] ([id number])[address] [place] [address] 94315 BARBITURATES Negative Normal NEG [facility] Comment on above: Result Comment: Lisa iturates screening cut off value = 200 ng/mL Performed By: #### D GARCÍA ####[facility] ([id number])[address] [place] [address] 97907 BENZODIAZEPINES Negative Normal NEG [facility] Comment on above: Result Comment: Ferdinand odiazepines screening cut off value = 200 ng/mL Performed By: #### D GARCÍA ####[facility] ([id number])[address] [place] [address] 73625 CANNABINOIDS Positive Abnormal NEG [facility] Comment on above: Result Comment: Conf irmation available upon request.Cannabinoids/THC screening cut off value = 50 ng/mL Performed By: #### D GARCÍA ####[facility] ([id number])[address] [place] [address] 52215 COCAINE METABOLITE Negative Normal NEG [facility] Comment on above: Result Comment: Coca ine screening cut off value = 300 ng/mL Performed By: #### D GARCÍA ####[facility] ([id number])[address] [place] [address] 94035 ECSTASY Negative Normal NEG [facility] Comment on above: Result Comment: Ecst asy screening cut off value = 500 ng/mLThis report is intended for use in clinicalmonitoring or management of patients. Performed By: #### D GARCÍA ####[facility] ([id number])[address] [place] [address] 75634 METHADONE Negative Normal NEG [facility] Comment on above: Result Comment: Meth adone screening cut off value = 300 ng/mL. Performed By: #### D GARCÍA ####[facility] ([id number])[address] [place] [address] 92142 OPIATES Positive Abnormal NEG [facility] Comment on above: Result Comment: Conf irmation available upon request.Opiates screening cut off value = 300 ng/mLNOTE:This test is used for the detection ofcodeine, hydrocodone (>1000 ng/mL), morphineand hydromorphone (>900 ng/mL) in urine. Performed By: #### D GARCÍA ####[facility] ([id number])[address] [place] [address] 30315 OXYCODONE Negative Normal [facility] Comment on above: Result Comment: Oxyc odone screening cut off value = 300 ng/mLNOTE:This test is used for the detection ofoxycodone and oxymorphone in urine. Performed By: #### D GARCÍA ####[facility] ([id number])[address] [place] [address] 99178 PHENCYCLIDINE Negative Normal NEG [facility] Comment on above: Result Comment: Phen cyclidine screening cut off value = 25 ng/mL Performed By: #### D GARCÍA ####[facility] ([id number])[address] [place] [address] 26111 HCG ( test) Casa verdin Ql (S)on 06-03-2023 SERUM Negative Normal [facility] Comment on above: Performed By: #### C BCA, BMP, 3040-3, PINR, 85877-6, LIVR, 77824-2, 2639-3, 42440-5, THYR, 76005-2 ####[facility] ([id number])[address] [place] [address] 99789 LIPASEon 06-03-2023 Lipase [Catalytic activity/Vol] 51 U/L High 17-40 [facility] Comment on above: Performed By: #### C BCA, BMP, 3040-3, PINR, 12050-3, LIVR, 85936-6, 2639-3, 45113-6, THYR, 69488-5 ####[facility] ([id number])[address] [place] [address] 29181 LIVER PANELon 06-03-2023 Albumin [Mass/Vol] 3.9 g/dL Normal 3.2-5.[address] [facility] Comment on above: Performed By: #### C BCA, BMP, 3040-3, PINR, 43393-0, LIVR, 80236-0, 2639-3, 31406-9, THYR, 77709-3 ####[facility] ([id number])[address] [place] [address] 51682 ALP [Catalytic activity/Vol] 51 U/L Normal 39-130 [facility] Comment on above: Performed By: #### C BCA, BMP, 3040-3, PINR, 61363-4, LIVR, 60994-9, 2639-3, 81729-0, THYR, 40435-5 ####[facility] ([id number])[address] [place] [address] 43360 ALT [Catalytic activity/Vol] 18 U/L Normal 0-31 [facility] Comment on above: Performed By: #### C BCA, BMP, 3040-3, PINR, 75024-2, LIVR, 45536-6, 2639-3, 66746-3, THYR, 57754-6 ####[facility] ([id number])[address] [place] [address] [place] [address] AST [Catalytic activity/Vol] 22 U/L Normal 0-41 [facility] Comment on above: Performed By: #### C BCA, BMP, 3040-3, PINR, 58433-7, LIVR, 03747-8, 2639-3, 16682-4, THYR, 59003-1 ####[facility] ([id number])[address] [place] [address] 41732 Bilirubin [Mass/Vol] 0.5 mg/dL Normal 0.3-1.2 [facility] Comment on above: Performed By: #### C BCA, BMP, 3040-3, PINR, 51591-5, LIVR, 60418-6, 2639-3, 63437-0, THYR, 90100-2 ####[facility] ([id number])[address] [place] [address] 43709 Bilirubin.direct [Mass/Vol] 0.1 mg/dL Normal 0.0-0.4 [facility] Comment on above: Performed By: #### C BCA, BMP, 3040-3, PINR, 06977-7, LIVR, 84425-3, 2639-3, 91977-5, THYR, 31859-7 ####[facility] ([id number])[address] [place] [address] 41423 Protein [Mass/Vol] 6.6 g/dL Normal 6.0-8.[address] [facility] Comment on above: Performed By: #### C BCA, BMP, 3040-3, PINR, 01234-1, LIVR, 33679-5, 2639-3, 42497-8, THYR, 37429-9 ####[facility] ([id number])[address] [place] [address] 05084 MAGNESIUMon 06-03-2023 Magnesium [Mass/Vol] 1.9 mg/dL Normal 1.8-2.6 [facility] Comment on above: Performed By: #### C BCA, BMP, 3040-3, PINR, 48416-9, LIVR, 05473-6, 2639-3, 34532-5, THYR, 08683-6 ####[facility] ([id number])[address] [place] [address] 40191 Myoglobin [Mass/Vol]on 06-03 SERUM MYOGLOBIN 21.1 ng/mL Normal 14.3-65.8 [facility] Comment on above: Performed By: #### C BCA, BMP, 3040-3, PINR, 16176-6, LIVR, 05819-4, 2639-3, 40294-9, THYR, 75619-6 ####[facility] ([id number])[address] [place] [address] 56683 PROTIME AND INRon 06-03-2023 INR Coag (PPP) [Relative time] 1.8 {INR} High 0.8-1.1 [facility] Comment on above: Performed By: #### C BCA, BMP, 3040-3, PINR, 00892-1, LIVR, 96698-9, 2639-3, 69710-7, THYR, 05622-3 ####[facility] ([id number])[address] [place] [address] 11573 PT Coag (PPP) [Time] 20.7 s High 9.8-13.2 [facility] Comment on above: Result Comment: NEW REFERENCE RANGE Performed By: #### C BCA, BMP, 3040-3, PINR, 93387-2, LIVR, 57158-8, 2639-3, 16438-8, THYR, 74888-1 ####[facility] ([id number])[address] [place] [address] 29765 SARS/FLU A+B/RSV by NAAT/Mol ecularon 06-03-2023 SARS/FLU A+B/RSV by NAAT/Molecular Normal [facility] Comment on above: Performed By: #### C OVFLR ####[facility] ([id number])[address] [place] [address] 66372 THYROID PROFILEon 06-03-2023 Free T4 [Mass/Vol] 1.00 ng/dL Normal 0.61-1.[address] [facility] Comment on above: Performed By: #### C BCA, BMP, 3040-3, PINR, 29408-5, LIVR, 11275-5, 2639-3, 26208-2, THYR, 08962-5 ####[facility] ([id number])[address] [place] [address] 74476 TSH 0.82 uIU/mL Normal 0.49-4.67 [facility] Comment on above: Performed By: #### C BCA, BMP, 3040-3, PINR, 59017-7, LIVR, 76580-5, 2639-3, 14152-5, THYR, 26515-9 ####[facility] ([id number])[address] [place] [address] 41977 TROPONIN Ion 06-03-2023 Troponin I.cardiac [Mass/Vol] 0.01 ng/mL Normal 0.00-0.04 [facility] Comment on above: Performed By: #### C BCA, BMP, 3040-3, PINR, 00238-3, LIVR, 59438-8, 2639-3, 27228-0, THYR, 27701-7 ####[facility] ([id number])[address] [place] [address] 00020 URN MACROSCOPIC NURon 2023 BILIRUBIN BRENDEN Negative Normal NEG [facility] Comment on above: Performed By: #### N UM ####[facility] ([id number])[address] [place] [address] 45247 BLOOD/HGB BRENDEN Large Abnormal NEG [facility] Comment on above: Performed By: #### N UM ####[facility] ([id number])[address] [place] [address] [place] [address] GLUCOSE BRENDEN Negative Normal NEG [facility] Comment on above: Performed By: #### N UM ####[facility] ([id number])[address] [place] [address] [place] [address] KETONES BRENDEN Negative Normal NEG [facility] Comment on above: Performed By: #### N UM ####[facility] ([id number])[address] [place] [address] [place] [address] LEUKOCYTE ESTERASE BRENDEN Negative Normal NEG [facility] Comment on above: Performed By: #### N UM ####[facility] ([id number])[address] [place] [address] [place] [address] NITRITE BRENDEN Negative Normal NEG [facility] Comment on above: Performed By: #### N UM ####[facility] ([id number])[address] [place] [address] 71726 PH BRENDEN 6.0 Normal 5.0-8.5 [facility] Comment on above: Performed By: #### N UM ####[facility] ([id number])[address] [place] [address] [place] [address] PROTEIN BRENDEN >=[address] [facility] Comment on above: Performed By: #### N UM ####[facility] ([id number])[address] [place] [address] [place] [address] SPECIFIC GRAVITY BRENDEN 1.015 Normal 1.003-1.035 [facility] Comment on above: Performed By: #### N UM ####[facility] ([id number])[address] [place] [address] [place] [address] UROBILINOGEN BRENDEN 0.2 eu/dL Normal <1.1 [facility] Comment on above: Performed By: #### N UM ####[facility] ([id number])[address] [place] [address] 39560 aPTT Coag (PPP) [Time]on aPTT Coag (Bld) [Time] 41 s High 26-37 [facility] Comment on above: Result Comment: NEW REFERENCE RANGE Performed By: #### C BCA, BMP, 3040-3, PINR, 62144-7, LIVR, 55262-3, 2639-3, 97074-2, THYR, 74858-6 ####[facility] ([id number])[address] [place] [address] 89534 CBC AND AUTO DIFFon 05-15-19 24 ABSOLUTE BASOPHIL 0.0 X10E9/L Normal 0.0-0.[address] [facility] Comment on above: Performed By: #### C BCA, CMP, 74626-7 ####[facility] ([id number])[address] [place] [address] 74484 ABSOLUTE NEUTROPHIL 6.8 X10E9/L High 1.5-6.6 [facility] Comment on above: Performed By: #### C BCA, CMP, 28631-5 ####[facility] ([id number])[address] [place] [address] 61588 Basophils/100 WBC (Bld) 0.4 % Normal [facility] Comment on above: Performed By: #### C BCA, CMP, 29616-2 ####[facility] ([id number])[address] [place] [address] 62729 Eosinophils (Bld) [#/Vol] 0.0 10*3/uL Normal 0.0-0.4 [facility] Comment on above: Performed By: #### C BCA, CMP, 38816-5 ####[facility] ([id number])[address] [place] [address] 84125 Eosinophils/100 WBC (Bld) 0.3 % Normal [facility] Comment on above: Performed By: #### Nataliia ARGUELLES CMP, 74269-6 ####[facility] ([id number])[address] [place] [address] 27735 Erythrocyte distribution width (RBC) [Ratio] 13.9 % Normal 11.5-15.0 [facility] Comment on above: Performed By: #### Nataliia ARGUELLES CMP, 04141-5 ####[facility] ([id number])[address] [place] [address] 99444 Hematocrit (Bld) [Volume fraction] 38.4 % Normal 35-47 [facility] Comment on above: Performed By: #### Nataliia ARGUELLES CMP, 81015-7 ####[facility] ([id number])[address] [place] [address] 70385 Hemoglobin (Bld) [Mass/Vol] 13.0 g/dL Normal 11.7-15.5 [facility] Comment on above: Performed By: #### Nataliia ARGUELLES CMP, 87582-4 ####[facility] ([id number])[address] [place] [address] 25676 Lymphocytes (Bld) [#/Vol] 0.7 10*3/uL Low 1.0-3.5 [facility] Comment on above: Performed By: #### Nataliia ARGUELLES CMP, 59734-4 ####[facility] ([id number])[address] [place] [address] 68205 Lymphocytes/100 WBC (Bld) 8.3 % Normal [facility] Comment on above: Performed By: #### Nataliia ARGUELLES CMP, 90028-9 ####[facility] ([id number])[address] [place] [address] 85628 MCH (RBC) [Entitic mass] 29.7 pg Normal 27-34 [facility] Comment on above: Performed By: #### Nataliia ARGUELLES CMP, 64786-6 ####[facility] ([id number])[address] [place] [address] 33622 MCHC (RBC) [Mass/Vol] 33.9 g/dL Normal 32-36 [facility] Comment on above: Performed By: #### Nataliia ARGUELLES CMP, 22459-4 ####[facility] ([id number])[address] [place] [address] 76720 MCV (RBC) [Entitic vol] 88 fL Normal 80-100 [facility] Comment on above: Performed By: #### Nataliia ARGUELLES CMP, 28955-2 ####[facility] ([id number])[address] [place] [address] 64708 Monocytes (Bld) [#/Vol] 0.7 10*3/uL Normal 0-0.9 [facility] Comment on above: Performed By: #### Nataliia ARGUELLES CMP, 97060-5 ####[facility] ([id number])[address] [place] [address] 94844 Monocytes/100 WBC (Bld) 8.6 % Normal [facility] Comment on above: Performed By: #### Nataliia ARGUELLES CMP, 58102-7 ####[facility] ([id number])[address] [place] [address] 79922 Neutrophils/100 WBC (Bld) 82.4 % Normal [facility] Comment on above: Performed By: #### Nataliia ARGUELLES CMP, 39760-1 ####[facility] ([id number])[address] [place] [address] 76197 Platelet mean volume (Bld) [Entitic vol] 7.2 fL Normal 7-12 [facility] Comment on above: Performed By: #### Nataliia ARGUELLES CMP, 30714-1 ####[facility] ([id number])[address] [place] [address] 83530 Platelets (Bld) [#/Vol] 288 10*3/uL Normal 150-450 [facility] Comment on above: Performed By: #### C BCA, CMP, 33191-0 ####[facility] ([id number])[address] [place] [address] 85451 RBC COUNT 4.39 X10E12/L Normal 3.80-5.20 [facility] Comment on above: Performed By: #### C BCA, CMP, 48401-0 ####[facility] ([id number])[address] [place] [address] 73147 WBC (Bld) [#/Vol] 8.3 10*3/uL Normal 4.0-11.[address] [facility] Comment on above: Performed By: #### C BCA, CMP, 94314-5 ####[facility] ([id number])[address] [place] [address] 98970 COMPREHENSIVE METABOLIC PANE Gerardo 05-15-2023 Albumin [Mass/Vol] 4.0 g/dL Normal 3.2-5.[address] [facility] Comment on above: Performed By: #### C BCA, CMP, 37465-3 ####[facility] ([id number])[address] [place] [address] 31838 ALP [Catalytic activity/Vol] 61 U/L Normal 39-130 [facility] Comment on above: Performed By: #### C BCA, CMP, 94512-1 ####[facility] ([id number])[address] [place] [address] 18665 ALT [Catalytic activity/Vol] 17 U/L Normal 0-31 [facility] Comment on above: Performed By: #### C BCA, CMP, 01219-0 ####[facility] ([id number])[address] [place] [address], [place] [address] Anion gap [Moles/Vol] 9 mmol/L Normal 5-15 [facility] Comment on above: Performed By: #### C BCA, CMP, 65675-1 ####[facility] ([id number])[address] [place] [address], [place] [address] AST [Catalytic activity/Vol] 15 U/L Normal 0-41 [facility] Comment on above: Performed By: #### C KINDRA, CMP, 60894-5 ####[facility] ([id number])[address] [place] [address] 81588 Bilirubin [Mass/Vol] 0.6 mg/dL Normal 0.3-1.2 [facility] Comment on above: Performed By: #### Nataliia ARGUELLES, CMP, 60228-9 ####[facility] ([id number])[address] [place] [address] [place] [address] Calcium [Mass/Vol] 8.9 mg/dL Normal 8.5-10.[address] [facility] Comment on above: Performed By: #### C KINDRA, CMP, 88120-5 ####[facility] ([id number])[address] [place] [address], [place] [address] Chloride [Moles/Vol] 100 mmol/L Normal 98-109 [facility] Comment on above: Performed By: #### C BCA, CMP, 09677-2 ####[facility] ([id number])[address] [place] [address], [place] [address] CO2 [Moles/Vol] 29 mmol/L Normal 22-32 [facility] Comment on above: Performed By: #### C BCA, CMP, 30786-8 ####[facility] ([id number])[address] [place] [address], [place] [address] Creatinine [Mass/Vol] 1.54 mg/dL High 0.40-1.00 [facility] Comment on above: Result Comment: METH OD TRACEABLE TO IDMS STANDARD Performed By: #### Nataliia ARGUELLES CMP, 74176-3 ####[facility] ([id number])[address] [place] [address] GFR/1.73 sq M.predicted among non-blacks MDRD (S/P/Bld) [Vol rate/Area] 46 mL/min/{1.73_m2} Low >59 [facility] Comment on above: Result Comment: Repo rted eGFR is based on theCKD-EPI 2020 equation that doesnot use a race coefficient. Performed By: #### C CORINA ARGUELLES, 61156-7 ####[facility] ([id number])[address] [place] [address] Glucose [Mass/Vol] 98 mg/dL Normal 65-[address] [facility] Comment on above: Performed By: #### Nataliia ARGUELLES CMP, 79851-0 ####[facility] ([id number])[address] [place] [address] Potassium [Moles/Vol] 3.9 mmol/L Normal 3.5-5.0 [facility] Comment on above: Performed By: #### Nataliia ARGULELES CMP, 39116-5 ####[facility] ([id number])[address] [place] [address] Protein [Mass/Vol] 7.0 g/dL Normal 6.0-8.[address] [facility] Comment on above: Performed By: #### C CORINA ARGUELLES, 27015-4 ####[facility] ([id number])[address] [place] [address] Sodium [Moles/Vol] 138 mmol/L Normal 134-[address] [facility] Comment on above: Performed By: #### Nataliia ARGUELLES CMP, 25442-0 ####[facility] ([id number])[address] [place] [address] [place] [address] Urea nitrogen [Mass/Vol] 27 mg/dL High 5-23 [facility] Comment on above: Performed By: #### Nataliia ARGUELLES CMP, 32213-0 ####[facility] ([id number])[address] [place] [address] TROPONIN Ion 05-15-2023 Troponin I.cardiac [Mass/Vol] ng/mL Normal 0.00-0.04 [facility] Comment on above: Performed By: #### Nataliia ARGUELLES CMP, 70537-8 ####[facility] ([id number])[address] [place] [address] XR CHEST 1 VWon 05-15-2023 XR CHEST [address] [facility] CBC AND AUTO DIFFon 05-10-19 24 ABSOLUTE BASOPHIL 0.0 X10E9/L Normal 0.0-0.[address] [facility] Comment on above: Performed By: #### C KINDRA CMP, 53286-4, 73485-4 ####[facility] ([id number])[address] [place] [address] ABSOLUTE NEUTROPHIL 9.4 X10E9/L High 1.5-6.6 [facility] Comment on above: Performed By: #### Nataliia ARGUELLES CMP, 09377-6, 82604-2 ####[facility] ([id number])[address] [place] [address] Basophils/100 WBC (Bld) 0.3 % Normal [facility] Comment on above: Performed By: #### Nataliia ARGUELLES, CMP, 02473-9, 70755-3 ####[facility] [facility] ([id number])[address] [place] [address] 28966 Eosinophils (Bld) [#/Vol] 0.0 10*3/uL Normal 0.0-0.4 [facility] Comment on above: Performed By: #### C CORINA ARGUELLES, 78861-8, 66356-7 ####[facility] ([id number])[address] [place] [address] 18847 Eosinophils/100 WBC (Bld) 0.3 % Normal [facility] Comment on above: Performed By: #### Nataliia ARGUELLES CMP, 48601-8, 87741-9 ####[facility] ([id number])[address] [place] [address] 04818 Erythrocyte distribution width (RBC) [Ratio] 13.9 % Normal 11.5-15.0 [facility] Comment on above: Performed By: #### Nataliia ARGUELLES CMP, 01837-9, 65913-3 ####[facility] ([id number])[address] [place] [address] 16374 Hematocrit (Bld) [Volume fraction] 36.8 % Normal 35-47 [facility] Comment on above: Performed By: #### C KINDRA CMP, 80806-4, 34927-3 ####[facility] ([id number])[address] [place] [address] 23220 Hemoglobin (Bld) [Mass/Vol] 12.5 g/dL Normal 11.7-15.5 [facility] Comment on above: Performed By: #### Nataliia ARGUELLES CMP, 49029-5, 94513-6 ####[facility] ([id number])[address] [place] [address] 79840 Lymphocytes (Bld) [#/Vol] 1.0 10*3/uL Normal 1.0-3.5 [facility] Comment on above: Performed By: #### Nataliia ARGUELLES, CMP, 11762-5, 25746-1 ####[facility] ([id number])[address] [place] [address] 40111 Lymphocytes/100 WBC (Bld) 9.4 % Normal [facility] Comment on above: Performed By: #### C KINDRA, CMP, 10113-5, 16528-6 ####[facility] ([id number])[address] [place] [address] 02016 MCH (RBC) [Entitic mass] 29.7 pg Normal 27-34 [facility] Comment on above: Performed By: #### C KINDRA, CMP, 42500-6, 52483-2 ####[facility] ([id number])[address] [place] [address] 57543 MCHC (RBC) [Mass/Vol] 34.0 g/dL Normal 32-36 [facility] Comment on above: Performed By: #### C KINDRA, CMP, 43144-4, 21641-5 ####[facility] ([id number])[address] [place] [address] 48516 MCV (RBC) [Entitic vol] 88 fL Normal 80-100 [facility] Comment on above: Performed By: #### C KINDRA, CMP, 61395-1, 73302-4 ####[facility] ([id number])[address] [place] [address] 37046 Monocytes (Bld) [#/Vol] 0.6 10*3/uL Normal 0-0.9 [facility] Comment on above: Performed By: #### C KINDRA, CMP, 53259-7, 56050-2 ####[facility] ([id number])[address] [place] [address] 05594 Monocytes/100 WBC (Bld) 5.4 % Normal [facility] Comment on above: Performed By: #### C KINDRA, CMP, 15706-4, 88398-0 ####[facility] ([id number])[address] [place] [address] 85034 Neutrophils/100 WBC (Bld) 84.6 % Normal [facility] Comment on above: Performed By: #### C KINDRA, CMP, 58844-9, 38996-8 ####[facility] ([id number])[address] [place] [address] 40751 Platelet mean volume (Bld) [Entitic vol] 7.2 fL Normal 7-12 [facility] Comment on above: Performed By: #### Nataliia ARGUELLES, CMP, 10931-3, 12569-8 ####[facility] ([id number])[address] [place] [address] 35860 Platelets (Bld) [#/Vol] 309 10*3/uL Normal 150-450 [facility] Comment on above: Performed By: #### Nataliia ARGUELLES, CMP, 83167-4, 43655-4 ####[facility] ([id number])[address] [place] [address] 43506 RBC COUNT 4.21 X10E12/L Normal 3.80-5.20 [facility] Comment on above: Performed By: #### C KINDRA, CMP, 68754-4, 06021-1 ####[facility] ([id number])[address] [place] [address] 24804 WBC (Bld) [#/Vol] 11.2 10*3/uL High 4.0-11.0 [facility] Comment on above: Performed By: #### Nataliia ARGUELLES, CMP, 45508-0, 38025-7 ####[facility] ([id number])[address] [place] [address] 53754 COMPREHENSIVE METABOLIC PANE Gerardo 05-10-2023 Albumin [Mass/Vol] 3.8 g/dL Normal 3.2-5.[address] [facility] Comment on above: Performed By: #### C BCA, CMP, 73519-0, 08330-2 ####[facility] ([id number])[address] [place] [address] 07135 ALP [Catalytic activity/Vol] 50 U/L Normal 39-130 [facility] Comment on above: Performed By: #### C KINDRA CMP, 60391-7, 20241-4 ####[facility] ([id number])[address] [place] [address] 40520 ALT [Catalytic activity/Vol] 15 U/L Normal 0-31 [facility] Comment on above: Performed By: #### C KINDRA, CMP, 39516-0, 68276-4 ####[facility] ([id number])[address] [place] [address] 65858 Anion gap [Moles/Vol] 9 mmol/L Normal 5-15 [facility] Comment on above: Performed By: #### C KINDRA, CMP, 24276-7, 16401-4 ####[facility] ([id number])[address] [place] [address] 67185 AST [Catalytic activity/Vol] 19 U/L Normal 0-41 [facility] Comment on above: Performed By: #### C KINDRA, CMP, 87812-6, 33471-9 ####[facility] ([id number])[address] [place] [address] 41296 Bilirubin [Mass/Vol] 0.6 mg/dL Normal 0.3-1.2 [facility] Comment on above: Performed By: #### C KINDRA, CMP, 64855-7, 63335-1 ####[facility] ([id number])[address] [place] [address] 97350 Calcium [Mass/Vol] 8.3 mg/dL Low 8.5-10.[address] [facility] Comment on above: Performed By: #### C BCA, CMP, 67469-3, 29160-0 ####[facility] ([id number])[address] [place] [address] 37422 Chloride [Moles/Vol] 99 mmol/L Normal 98-109 [facility] Comment on above: Performed By: #### C CORINA ARGUELLES, 35918-0, 87699-7 ####[facility] ([id number])[address] [place] [address] 72279 CO2 [Moles/Vol] 29 mmol/L Normal 22-32 [facility] Comment on above: Performed By: #### C CORINA ARGUELLES, 00339-2, 90465-3 ####[facility] ([id number])[address] [place] [address] 24022 Creatinine [Mass/Vol] 1.67 mg/dL High 0.40-1.00 [facility] Comment on above: Result Comment: METH OD TRACEABLE TO IDMS STANDARD Performed By: #### C CORINA ARGUELLES, 86966-5, 37368-8 ####[facility] ([id number])[address] [place] [address] 85546 GFR/1.73 sq M.predicted among non-blacks MDRD (S/P/Bld) [Vol rate/Area] 42 mL/min/{1.73_m2} Low >59 [facility] Comment on above: Result Comment: Repo rted eGFR is based on theCKD-EPI 2020 equation that doesnot use a race coefficient. Performed By: #### C CORINA ARGUELLES, 17331-2, 29573-7 ####[facility] ([id number])[address] [place] [address] 39769 Glucose [Mass/Vol] 103 mg/dL High 65-[address] [facility] Comment on above: Performed By: #### C CORINA ARGUELLES, 79331-1, 95698-5 ####[facility] ([id number])[address] [place] [address] 59219 Potassium [Moles/Vol] 3.5 mmol/L Normal 3.5-5.0 [facility] Comment on above: Performed By: #### C CORINA ARGUELLES, 43369-7, 18940-2 ####[facility] ([id number])[address] [place] [address] 65599 Protein [Mass/Vol] 6.5 g/dL Normal 6.0-8.[address] [facility] Comment on above: Performed By: #### C KINDRA CMP, 54907-7, 30147-8 ####[facility] ([id number])[address] [place] [address] 97688 Sodium [Moles/Vol] 137 mmol/L Normal 134-[address] [facility] Comment on above: Performed By: #### C CORINA ARGUELLES, 94339-0, 10659-8 ####[facility] ([id number])[address] [place] [address] 56993 Urea nitrogen [Mass/Vol] 36 mg/dL High 5-23 [facility] Comment on above: Performed By: #### C KINDRACORINA, 25006-7, 84941-0 ####[facility] ([id number])[address] [place] [address] 94655 Fibrin D-dimer DDU (PPP) [Ma ss/Vol]on 05-10-2023 D DIMER <150 Normal <255 [facility] Comment on above: Result Comment: Resu lts <255 ng/mL DDU: The presence of aVTE can safely be excluded with a negativeD-Dimer result and Wells score. A negativeresult doesn't exclude the possibility of DIC.The test be repeated along with otherdiagnostic tests if the patient's symptomspersist or worsen.[email or web address] Performed By: #### C KINDRA, CMP, 96903-9, 98018-5 ####[facility] ([id number])[address] [place] [address] 33260 TROPONIN Ion 05-10-2023 Troponin I.cardiac [Mass/Vol] 0.01 ng/mL Normal 0.00-0.04 [facility] Comment on above: Performed By: #### 1 0839-9 ####[facility] ([id number])[address] [place] [address] 27884 Troponin I.cardiac [Mass/Vol] 0.01 ng/mL Normal 0.00-0.04 [facility] Comment on above: Performed By: #### C BCA, CMP, 23783-4, 56189-6 ####[facility] ([id number])[address] [place] [address] 57735 XR CHEST 2 VWSon 05-10-2023 XR CHEST [address] [facility] CBC AND AUTO DIFFon 05-03-19 ABSOLUTE BASOPHIL 0.0 X10E9/L Normal 0.0-0.2 [facility] Comment on above: Performed By: #### C JUNAID, 1986-08, CBCA, 4485-9, 4498-2, 29073-6 #### [facility] ([id number]) [address] [place] [address] ABSOLUTE NEUTROPHIL 5.5 X10E9/L Normal 1.5-6.6 [facility] Comment on above: Performed By: #### C JUNAID, 1986-08, CBCA, 448-9, 4498-2, 94144-8 #### [facility] ([id number]) [address], [address] [place] [address] Basophils/100 WBC (Bld) 0.3 % Normal [facility] Comment on above: Performed By: #### C JUNAID, 1986-08, CBCA, 4485-9, 4498-2, 33909-0 #### [facility] ([id number]) [address], [address] [place] [address] Eosinophils (Bld) [#/Vol] 0.0 10*3/uL Normal 0.0-0.4 [facility] Comment on above: Performed By: #### C JUNAID, 1986-08, CBCA, 4485-9, 4498-2, 31663-0 #### [facility] ([id number]) [address], [address] [place] [address] Eosinophils/100 WBC (Bld) 0.5 % Normal [facility] Comment on above: Performed By: #### C JUNAID, 1986-08, CBCA, 4485-9, 4498-2, 81969-9 #### [facility] ([id number]) [address] [place] [address] Erythrocyte distribution width (RBC) [Ratio] 13.3 % Normal 11.5-15.0 [facility] Comment on above: Performed By: #### Nataliia QUIROGA, 1986-08, CBCA, 448-9, 4498-2, 41250-2 #### [facility] ([id number]) [address] [place] [address] Hematocrit (Bld) [Volume fraction] 36.0 % Normal 35-47 [facility] Comment on above: Performed By: #### Nataliia QUIROGA, 1986-08, CBCA, 4485-9, 4498-2, 50687-1 #### [facility] ([id number]) [address] [place] [address] Hemoglobin (Bld) [Mass/Vol] 12.3 g/dL Normal 11.7-15.5 [facility] Comment on above: Performed By: #### Nataliia QUIROGA, 1986-08, CBCA, 4485-9, 4498-2, 02517-1 #### [facility] ([id number]) [address] [place] [address] Lymphocytes (Bld) [#/Vol] 1.9 10*3/uL Normal 1.0-3.5 [facility] Comment on above: Performed By: #### C JUNAID, 1986-08, CBCA, 4485-9, 4498-2, 31756-3 #### [facility] ([id number]) [address] [address] Lymphocytes/100 WBC (Bld) 23.5 % Normal [facility] Comment on above: Performed By: #### C JUNAID, 1986-08, CBCA, 4489, 4498-2, 17344-8 #### [facility] ([id number]) [address] [address] MCH (RBC) [Entitic mass] 30.4 pg Normal 27-34 [facility] Comment on above: Performed By: #### C JUNAID, 1986-08, CBCA, 448-9, 4498-2, 46394-2 #### [facility] ([id number]) [address] [address] MCHC (RBC) [Mass/Vol] 34.1 g/dL Normal 32-36 [facility] Comment on above: Performed By: #### C JUNAID, 1987-08, CBCA, 4489, 4498-2, 29666-8 #### [facility] ([id number]) [address] [address] MCV (RBC) [Entitic vol] 89 fL Normal 80-100 [facility] Comment on above: Performed By: #### Nataliia QUIROGA, 1986-08, CBCA, 448-9, 4498-2, 49236-8 #### [facility] ([id number]) [address] [address] Monocytes (Bld) [#/Vol] 0.7 10*3/uL Normal 0-0.9 [facility] Comment on above: Performed By: #### C JUNAID, 1987-08, CBCA, 4485-9, 4498-2, 55195-0 #### [facility] ([id number]) [address] [place] [address] Monocytes/100 WBC (Bld) 8.3 % Normal [facility] Comment on above: Performed By: #### C JUNAID, 1987-08, CBCA, 4485-9, 4498-2, 92520-2 #### [facility] ([id number]) [address] [place] [address] Neutrophils/100 WBC (Bld) 67.4 % Normal [facility] Comment on above: Performed By: #### C JUNAID, 1987-08, CBCA, 4485-9, 4498-2, 64775-3 #### [facility] ([id number]) [address] [facility] [address] [place] [address] Platelet mean volume (Bld) [Entitic vol] 7.6 fL Normal 7-12 [facility] Comment on above: Performed By: #### C JUNAID, 1987-08, CBCA, 448-9, 4498-2, 25224-6 #### [facility] ([id number]) [address] [facility] [address] [place] [address] Platelets (Bld) [#/Vol] 322 10*3/uL Normal 150-450 [facility] Comment on above: Performed By: #### Nataliia QUIROGA, 1986-08, CBCA, 4485-9, 4498-2, 61742-2 #### [facility] ([id number]) [address] [place] [address] RBC COUNT 4.04 X10E12/L Normal 3.80-5.20 [facility] Comment on above: Performed By: #### Nataliia QUIROGA, 1986-08, CBCA, 4485-9, 4498-2, 80576-8 #### [facility] ([id number]) [address] [place] [address] WBC (Bld) [#/Vol] 8.2 10*3/uL Normal 4.0-11.0 [facility] Comment on above: Performed By: #### C JUNAID, 1987-08, CBCA, 4485-9, 4498-2, 59258-4 #### [facility] ([id number]) [address] [place] [address] COMPREHENSIVE METABOLIC PANE Gerardo 05-03-2023 Albumin [Mass/Vol] 3.9 g/dL Normal 3.2-5.3 [facility] Comment on above: Performed By: #### C JUNAID, 1987-08, CBCA, 4485-9, 4498-2, 87151-3 #### [facility] ([id number]) [address] [place] [address] ALP [Catalytic activity/Vol] 51 U/L Normal 39-130 [facility] Comment on above: Performed By: #### C JUNAID, 1987-08, CBCA, 4485-9, 4498-2, 38203-2 #### [facility] ([id number]) [address] [place] [address] ALT [Catalytic activity/Vol] 9 U/L Normal 0-31 [facility] Comment on above: Performed By: #### Nataliia QUIROGA, 1986-08, CBCA, 4485-9, 4498-2, 73902-5 #### [facility] ([id number]) [address] [place] [address] Anion gap [Moles/Vol] 10 mmol/L Normal 5-15 [facility] Comment on above: Performed By: #### Nataliia QUIROGA, 1986-08, CBCA, 4485-9, 4498-2, 18075-1 #### [facility] ([id number]) [address], [address] [place] [address] AST [Catalytic activity/Vol] 12 U/L Normal 0-41 [facility] Comment on above: Performed By: #### C JUNAID, 1987-08, CBCA, 4485-9, 4498-2, 15353-3 #### [facility] ([id number]) [address] [place] [address] Bilirubin [Mass/Vol] 0.2 mg/dL Low 0.3-1.2 [facility] Comment on above: Performed By: #### C JUNAID, 1987-08, CBCA, 4485-9, 4498-2, 32690-6 #### [facility] ([id number]) [address] [place] [address] Calcium [Mass/Vol] 8.7 mg/dL Normal 8.5-10.5 [facility] Comment on above: Performed By: #### C JUNAID, 1987-08, CBCA, 4485-9, 4498-2, 01592-3 #### [facility] ([id number]) [address] [place] [address] Chloride [Moles/Vol] 102 mmol/L Normal 98-109 [facility] Comment on above: Performed By: #### Nataliia QUIROGA, 1986-08, CBCA, 4485-9, 4498-2, 58137-7 #### [facility] ([id number]) [address] [place] [address] CO2 [Moles/Vol] 31 mmol/L Normal 22-32 [facility] Comment on above: Performed By: #### Nataliia QUIROGA, 1986-08, CBCA, 4485-9, 4498-2, 56300-5 #### [facility] ([id number]) [address] [place] [address] Creatinine [Mass/Vol] 1.56 mg/dL High 0.40-1.00 [facility] Comment on above: Result Comment: METH OD TRACEABLE TO IDMS STANDARD Performed By: #### C JUNAID, 1987-08, CBCA, 4485-9, 4498-2, 84728-6 #### [facility] ([id number]) [address] [address] GFR/1.73 sq M.predicted among non-blacks MDRD (S/P/Bld) [Vol rate/Area] 45 mL/min/{1.73_m2} Low >59 [facility] Comment on above: Result Comment: Reported eGFR is based on the CKD-EPI 2020 equation that does not use a race coefficient. Performed By: #### C JUNAID, 1987-08, CBCA, 448-9, 4498-2, 92881-1 #### [facility] ([id number]) [address] [address] Glucose [Mass/Vol] 112 mg/dL High 65-99 [facility] Comment on above: Performed By: #### Nataliia QUIROGA, 1986-08, CBCA, 448-9, 4498-2, 82316-1 #### [facility] ([id number]) [address] [address] Potassium [Moles/Vol] 3.5 mmol/L Normal 3.5-5.0 [facility] Comment on above: Performed By: #### Nataliia QUIROGA, 1987-[birth year], CBCA, 448-9, 4498-2, 69000-9 #### [facility] ([id number]) [address] [address] Protein [Mass/Vol] 6.3 g/dL Normal 6.0-8.0 [facility] Comment on above: Performed By: #### Nataliia QUIROGA, 1987-08, CBCA, 4485-9, 4498-2, 16777-5 #### [facility] ([id number]) [address] [place] [address] Sodium [Moles/Vol] 143 mmol/L Normal 134-146 [facility] Comment on above: Performed By: #### Nataliia QUIROGA, 1987-08, CBCA, 4485-9, 4498-2, 45967-8 #### [facility] ([id number]) [address] [place] [address] Urea nitrogen [Mass/Vol] 25 mg/dL High 5-23 [facility] Comment on above: Performed By: #### Nataliia QUIROGA, 1987-08, CBCA, 4485-9, 4498-2, 31684-9 #### [facility] ([id number]) [address] [place] [address] CRP [Mass/Vol]on 05-03-2023 C REACTIVE PROTEIN 0.1 mg/dL Normal 0.000-0.744 [facility] Comment on above: Performed By: #### Nataliia QUIROGA, 1986-08, CBCA, 4485-9, 4498-2, 74765-8 #### [facility] ([id number]) [address] [place] [address] Complement C3 [Mass/Vol]on 0 05-03-2023 COMPLEMENT C3 124 mg/dL Normal 86-184 [facility] Comment on above: Performed By: #### Nataliia QUIROGA, 1986-08, CBCA, 4485-9, 4498-2, 36775-4 #### [facility] ([id number]) [address] [place] [address] Complement C4 [Mass/Vol]on 0 05-03-2023 COMPLEMENT C4 21 mg/dL Normal 16-47 [facility] Comment on above: Performed By: #### Nataliia QUIROGA, 1987-08, CBCA, 4485-9, 4498-2, 91225-7 #### [facility] ([id number]) [address] [place] [address] ESR Photometric method (Bld) [Velocity]on 05-03-2023 ESR, ERYTHROCYTE SEDIMENTATION RATE 14 mm/h Normal 0-20 [facility] Comment on above: Performed By: #### C MP, 1987-, CBCA, 4485-9, 4498-2, 69338-8 #### [facility] ([id number]) [address] [address] PROTEIN CREAT RATIOon 2023 RANDOM URINE PROTEIN 3040 mg/L High <120 [facility] Comment on above: Performed By: #### U PCR #### [facility] ([id number]) [address] [address] U/PRO/MACHINE STONECUTTER RATIO CALC 1.59 High <0.2 [facility] Comment on above: Result Comment: Neph rotic Syndrome is associated with ratios >3.5 Performed By: #### U PCR #### [facility] ([id number]) [address] [address] URINE CREATININE,RDM 190.94 mg/dL Normal [facility] Comment on above: Performed By: #### U PCR #### [facility] ([id number]) [address] [address] URINALYSISon 05-03-2023 Bilirubin Ql (U) Negative Normal NEG [facility] Comment on above: Performed By: #### U PCR #### [facility] ([id number]) [address] [address] BLOOD/HGB Large Abnormal NEG [facility] Comment on above: Performed By: #### U PCR #### [facility] ([id number]) [address] [address] Color (U) YELLOW Normal YELLOW [facility] Comment on above: Performed By: #### U PCR #### [facility] ([id number]) [address] [place] [address] Glucose Ql (U) Negative Normal NEG [facility] Comment on above: Performed By: #### U PCR #### [facility] ([id number]) [address] [place] [address] Ketones Ql (U) Negative Normal NEG [facility] Comment on above: Performed By: #### U PCR #### [facility] ([id number]) [address] [place] [address] Leukocyte esterase Test strip Ql (U) Negative Normal NEG [facility] Comment on above: Performed By: #### U PCR #### [facility] ([id number]) [address] [place] [address] MUCOUS PRESENT Abnormal NONE [facility] Comment on above: Performed By: #### U PCR #### [facility] ([id number]) [address] [place] [address] Nitrite Ql (U) Negative Normal NEG [facility] Comment on above: Performed By: #### U PCR #### [facility] ([id number]) [address] [place] [address] pH (U) 6.0 [pH] Normal 5.0-8.5 [facility] Comment on above: Performed By: #### U PCR #### [facility] ([id number]) [address] [place] [address] Protein Ql (U) 200 mg/dL Abnormal NEG [facility] Comment on above: Performed By: #### U PCR #### [facility] ([id number]) [address] [place] [address] R.B.CELLS 69 /hpf High 0-5 [facility] Comment on above: Performed By: #### U PCR #### [facility] ([id number]) [address] [place] [address] Specific gravity (U) [Rel density] 1.019 Normal 1.003-1.035 [facility] Comment on above: Performed By: #### U PCR #### [facility] ([id number]) [address] [place] [address] SQUAMOUS EPITHELIUM <1 Normal 0-5 [facility] Comment on above: Performed By: #### U PCR #### [facility] ([id number]) [address] [place] [address] TURBIDITY HAZY Abnormal CLEAR [facility] Comment on above: Performed By: #### U PCR #### [facility] ([id number]) [address] [place] [address] Urobilinogen (U) [Mass/Vol] mg/dL Normal <1.1 [facility] Comment on above: Performed By: #### U PCR #### [facility] ([id number]) [address] [place] [address] W.B.CELLS 0 /hpf Normal 0-5 [facility] Comment on above: Performed By: #### U PCR #### [facility] ([id number]) [address] [place] [address] CHEMISTRYOrdered By: SYSTEM SYSTEM on 08-10-2022 Anion gap [Moles/Vol] 11 mmol/L Normal 6 - 16 mEq/L [facility] Remisol Calcium [Mass/Vol] 8.3 mg/dL Low 8.9 - 11. 1 mg/dL [facility] Remisol Chloride [Moles/Vol] 104 mmol/L Normal 101 - 111 mmol/L [facility] Remisol CO2 [Moles/Vol] 27 mmol/L Normal 21 - 31 mmol/L [facility] Remisol Cobalamin (Vitamin B12) [Mass/Vol] 279 pg/mL Normal 50 - 1500 pg/mL FT Remisol Creatinine [Mass/Vol] 0.7 mg/dL Normal 0.5 - 1.3 mg/dL FT [facility] GFR/1.73 sq M.predicted among blacks MDRD (S/P/Bld) [Vol rate/Area] mL/min/1.73 m2 Normal >=59mL/min/1. 73 m2 FT Chem S GFR/1.73 sq M.predicted among non-blacks MDRD (S/P/Bld) [Vol rate/Area] mL/min/1.73 m2 Normal >=59mL/min/1. 73 m2 [facility] Chem S Glucose [Mass/Vol] 95 mg/dL Normal 55 - 199 mg/dL [facility] Magnesium [Mass/Vol] 1.8 mg/dL Normal 1.3 - 2.4 mg/dL [facility] Potassium [Moles/Vol] 3.6 mmol/L Normal 3.5 - 5.3 mmol/L [facility] Sodium [Moles/Vol] 138 mmol/L Normal 135 - 145 mmol/L [facility] Urea nitrogen [Mass/Vol] 12 mg/dL Normal 5 - 21 mg/dL FT [facility] Urea nitrogen/Creatinine [Mass ratio] 17 mg/mg Normal 10 - 20 [facility] CHEMISTRYOrdered By: Dave ROP User on 07-11-2022 Glucose [Mass/Vol] 82 mg/dL Normal 55 - 99 mg/dL FTM C POC Subsection Comment on above: Result Comment: Erin nida Meter POC Device SN [id number] Invalid Interpretation Code [facility] POC Subsection POC User ID [id number] Invalid Interpretation Code [facility] POC Subsection POC Username [email or web address] Invalid Interpretation Code [facility] POC Subsection PAP ACOG PANEL 1: 30 to 65on 03-23-2022 . . Normal [facility] Comment on above: Result Comment: Perf ormed at: WB Performed By: #### [id number] #### [facility] [address] [address] [address] Naomi Irizarry Age Gdln ACOG Testing 30-65 Normal [facility] Comment on above: Performed By: #### [id number] #### [facility] [address] [place] [address] Dr. Naomi Irizarry DIAGNOSIS: Comment Normal [facility] Comment on above: Result Comment: NEGA TIVE FOR INTRAEPITHELIAL LESION OR MALIGNANCY. Performed at: WB Performed By: #### [id number] #### [facility] [address] [address] [address] Naomi Irizarry HPV Aptima Positive Abnormal Negative [facility] Comment on above: Result Comment: This nucleic acid amplification test detects fourteen high-risk HPV types (16,18,31,33,35,39,45,51,52,56,58,59,66,68) without differentiation. Performed at: =G Performed By: #### [id number] #### [facility] [address] [place] [address] Dr. Naomi Irizarry HPV Genotype 16 Negative Normal Negative [facility] Comment on above: Performed By: #### [id number] #### [facility] [address] [place] [address] Dr. Naomi Irizarry HPV Genotype 18,45 Negative Normal Negative [facility] Comment on above: Performed By: #### [id number] #### [facility] [address] [address] [address] Naomi Irizarry HPV Genotype Reflex Comment Normal [facility] Comment on above: Result Comment: Angelica sarmiento, see HPV Genotype results. Performed at: WB Performed By: #### [id number] #### [facility] [address] [place] [address] Dr. Naomi Irizarry Methodology: Comment Normal [facility] Comment on above: Result Comment: This liquid based ThinPrep(R) pap test was screened with the use of an image guided system. Performed at: WB Performed By: #### [id number] #### [facility] [address] [place] [address] Dr. Naomi Irizarry Note: Comment Normal [facility] Comment on above: Result Comment: The Pap smear is a screening test designed to aid in the detection of premalignant and malignant conditions of the uterine cervix. It is not a diagnostic procedure and should not be used as the sole means of detecting cervical cancer. Both false-positive and false-negative reports do occur. . Performed at: WB Performed By: #### [id number] #### [facility] [address] [place] [address] Dr. Naomi Irizarry Performed by: Comment Normal [facility] Comment on above: Result Comment: Tong Boone, Bible Teacher (ASCP) Performed at: WB Performed By: #### [id number] #### [facility] [address] [place] [address] Dr. Naomi Irizarry Specimen adequacy: Comment Normal [facility] Comment on above: Result Comment: Sati sfactory for evaluation. Endocervical and/or squamous metaplastic cells (endocervical component) are present. Performed at: WB Performed By: #### [id number] #### [facility] [address] [place] [address] Dr. Naomi Irizarry CHEMISTRYOrdered By: SYSTEM SYSTEM [...] Chloride [Moles/Vol] 108 mmol/L Normal 101 - 111 mmol/L [facility] CO2 [Moles/Vol] 29 mmol/L Normal 21 - 31 mmol/L [facility] Creatinine [Mass/Vol] 0.9 mg/dL Normal 0.5 - 1.3 mg/dL FT [facility] GFR/1.73 sq M.predicted among blacks MDRD (S/P/Bld) [Vol rate/Area] mL/min/1.73 m2 Normal >=59mL/min/1. 73 m2 FT Chem S GFR/1.73 sq M.predicted among non-blacks MDRD (S/P/Bld) [Vol rate/Area] mL/min/1.73 m2 Normal >=59mL/min/1. 73 m2 [facility] Chem S Globulin (S) [Mass/Vol] 3.9 g/dL [...] % Normal 34.0 - 46.0 % FT HemeAutoS S Hemoglobin (Bld) [Mass/Vol] 15.0 g/dL Normal 12.0 - 16.0 gm/dL FT HemeAutoSS MCH (RBC) [Entitic mass] 31.7 pg Normal 27.0 - 34.0 pg FT HemeAutoSS MCHC (RBC) [Mass/Vol] 35.1 g/dL Normal 31.4 - 36.0 gm/dL FT HemeAutoSS MCV (RBC) [Entitic vol] 90.2 fL Normal 80.0 - 100.0 fL [facility] HemeAutoSS Platelet mean volume (Bld) [Entitic vol] 8.1 fL Normal 6.4 - 10.8 fL [facility] HemeAutoSS Platelets (Bld) [#/Vol] 238.0 E9/L Normal 150.0 - 500.0 E9/L [facility] HemeAutoSS RBC (Bld) [#/Vol] 4.7 E12/L Normal 4.3 - 5.9 E12/L [facility] HemeAutoSS WBC corrected for nucl RBC Auto (Bld) [#/Vol] 8.1 E9/L Normal 4.0 - 11.0 E9/L [facility] HemeAutoSS Vital Signs Date Time Vital Sign Value Performing Clinician Facility 05-19-2024 10:30-0500 Diastolic blood pressure 72 mm[Hg] CYNTHIA PAULINA [facility] 05-19-2024 10:30-0500 Heart rate 68 /min CYNTHIA PAULINA [facility] 05-19-2024 10:30-0500 Respiratory rate 16 /min CYNTHIA PAULINA [facility] 05-19-2024 10:30-0500 Systolic blood pressure 128 mm[Hg] CYNTHIA PAULINA [facility] 05-13-2024 13:12-0500 Body mass index (BMI) [Ratio] 42.85 kg/m2 Mayco Jose Ramon DO Work Phone: [facility] 05-13-2024 13:12-0500 Body weight 127.82 kg Mayco Jose Ramon DO Work Phone: [facility] 05-13-2024 13:12-0500 Diastolic blood pressure 76 mm[Hg] Mayco Jose Ramon DO Work Phone: [facility] 05-13-2024 13:12-0500 Systolic blood pressure 116 mm[Hg] Mayco Jose Ramon DO Work Phone: [facility] 04-09-2024 13:36-0500 Body height 172.7 cm Sherman Calle MD Work Phone: [facility] 04-09-2024 13:36-0500 Body mass index (BMI) [Ratio] 42.72 kg/m2 Sherman Calle MD Work Phone: [facility] 04-09-2024 13:36-0500 Body weight 127.46 kg Sherman Calle MD Work Phone: [facility] 04-09-2024 13:36-0500 Diastolic blood pressure 84 mm[Hg] Sherman Calle MD Work Phone: [facility] 04-09-2024 13:36-0500 Respiratory rate 18 /min Sherman Calle MD Work Phone: [facility] 04-09-2024 13:36-0500 Systolic blood pressure 138 mm[Hg] Sherman Calle MD Work Phone: [facility] 03-14-2024 10:48-0500 Body height 172.7 cm Pasquale Alexander PA-C Work Phone: [facility] 03-14-2024 10:48-0500 Body mass index (BMI) [Ratio] 42.13 kg/m2 Pasquale MICHAUD-C Work Phone: [facility] 03-14-2024 10:48-0500 Body weight 125.65 kg Pasquale MICHAUD-C Work Phone: [facility] 03-14-2024 10:48-0500 Diastolic blood pressure 75 mm[Hg] Pasquale MICHAUD-C Work Phone: [facility] 03-14-2024 10:48-0500 Heart rate 88 /min Pasquale MICHAUD-C Work Phone: [facility] 03-14-2024 10:48-0500 Systolic blood pressure 133 mm[Hg] Pasquale Alexander PA-C Work Phone: [facility] 02-05-2024 16:33-0400 Diastolic blood pressure 89 mm[Hg] Diogo Bray MD Work Phone: [facility] 02-05-2024 16:33-0400 Heart rate 85 /min Diogo Bray MD Work Phone: [facility] 02-05-2024 16:33-0400 Respiratory rate 15 /min Diogo Bray MD Work Phone: [facility] 02-05-2024 16:33-0400 SaO2% (BldA) [Mass fraction] 95 % Diogo Bray MD Work Phone: [facility] 02-05-2024 16:33-0400 Systolic blood pressure 150 mm[Hg] Diogo Bray MD Work Phone: [facility] 02-05-2024 07:30-0400 Body temperature 98.49 [degF] Diogo Bray MD Work Phone: [facility] 02-03-2024 05:00-0400 Body mass index (BMI) [Ratio] 42.08 kg/m2 Diogo Bray MD Work Phone: [facility] 02-03-2024 05:00-0400 Body weight 125.5 kg Diogo Bray MD Work Phone: [facility] 01-31-2024 15:35-0400 Body height 172.7 cm Diogo Bray MD Work Phone: [facility] 01-30-2024 10:16-0400 Body height 172.7 cm Jenny Cornell MD Work Phone: [facility] 01-30-2024 10:16-0400 Body mass index (BMI) [Ratio] 41.81 kg/m2 Jenny Cornell MD Work Phone: [facility] 01-30-2024 10:16-0400 Body weight 124.74 kg Jenny Cornell MD Work Phone: [facility] 01-30-2024 10:16-0400 Respiratory rate 18 /min Jenny Cornell MD Work Phone: [facility] 12-24-2023 12:59-0400 Body height 172.7 cm Pasquale De Luna DPM Work Phone: [facility] 12-24-2023 12:59-0400 Body mass index (BMI) [Ratio] 40.29 kg/m2 Pasquale De Luna DPM Work Phone: [facility] 12-24-2023 12:59-0400 Body weight 120.2 kg Pasquale De Luna DPM Work Phone: [facility] 08-23-2023 12:35-0400 Blood Pressure Location [facility] 08-23-2023 12:35-0400 Diastolic blood pressure 90 mm[Hg] [facility] 08-23-2023 12:35-0400 Heart rate 80 /min [facility] 08-23-2023 12:35-0400 Respiratory rate 18 /min [facility] 08-23-2023 12:35-0400 Systolic blood pressure 142 mm[Hg] [facility] 08-02-2023 09:24-0400 Body height 170.2 cm Maylin Portillo DO Work Phone: [facility] 08-02-2023 09:24-0400 Body mass index (BMI) [Ratio] 40.22 kg/m2 Maylin Portillo DO Work Phone: [facility] 08-02-2023 09:24-0400 Body weight 116.48 kg Maylin Portillo DO Work Phone: [facility] 08-02-2023 09:24-0400 Diastolic blood pressure 74 mm[Hg] Maylin Portillo DO Work Phone: [facility] 08-02-2023 09:24-0400 Heart rate 83 /min Maylin Portillo DO Work Phone: [facility] 08-02-2023 09:24-0400 SaO2% (BldA) [Mass fraction] 97 % Maylin Portillo DO Work Phone: [facility] 08-02-2023 09:24-0400 Systolic blood pressure 116 mm[Hg] Maylin Portillo DO Work Phone: [facility] 07-31-2023 12:53-0400 Body height 172.7 cm Sherman Calle MD Work Phone: [facility] 07-31-2023 12:53-0400 Body mass index (BMI) [Ratio] 39.24 kg/m2 Sherman Calle MD Work Phone: [facility] 07-31-2023 12:53-0400 Body weight 117.03 kg Sherman Calle MD Work Phone: [facility] 07-31-2023 12:53-0400 Diastolic blood pressure 78 mm[Hg] Sherman Calle MD Work Phone: [facility] 07-31-2023 12:53-0400 Respiratory rate 18 /min Sherman Calle MD Work Phone: [facility] 07-31-2023 12:53-0400 Systolic blood pressure 140 mm[Hg] Sherman Calle MD Work Phone: [facility] 07-12-2023 09:27-0400 Diastolic blood pressure 88 mm[Hg] Sade Rosas MD Work Phone: [facility] 07-12-2023 09:27-0400 Heart rate 81 /min Sade Rosas MD Work Phone: [facility] 07-12-2023 09:27-0400 Systolic blood pressure 139 mm[Hg] Sade Rosas MD Work Phone: [facility] 07-12-2023 09:21-0400 Body height 172.7 cm Sade Rosas MD Work Phone: [facility] 07-12-2023 09:21-0400 Body mass index (BMI) [Ratio] 39.56 kg/m2 Sade Rosas MD Work Phone: [facility] 07-12-2023 09:21-0400 Body weight 118.03 kg Sade Rosas MD Work Phone: [facility] 07-12-2023 09:21-0400 SaO2% (BldA) [Mass fraction] 97 % Sade Rosas MD Work Phone: [facility] 07-05-2023 09:57-0500 Body height 172.7 cm Pasquale Alexander PA-C Work Phone: [facility] 07-05-2023 09:57-0500 Body mass index (BMI) [Ratio] 38.93 kg/m2 Pasquale RUELASC Work Phone: [facility] 07-05-2023 09:57-0500 Body weight 116.12 kg Pasquale MICHAUD-C Work Phone: [facility] 07-05-2023 09:57-0500 Diastolic blood pressure 83 mm[Hg] Pasquale MICHAUD-C Work Phone: [facility] 07-05-2023 09:57-0500 Heart rate 72 /min Pasquale Alexander PA-C Work Phone: [facility] 07-05-2023 09:57-0500 Systolic blood pressure 134 mm[Hg] Pasquale Alexander PA-C Work Phone: [facility] 07-04-2023 07:56-0500 Body height 172.7 cm Sherman Calle MD Work Phone: [facility] 07-04-2023 07:56-0500 Body mass index (BMI) [Ratio] 39.54 kg/m2 Sherman Calle MD Work Phone: [facility] 07-04-2023 07:56-0500 Body weight 117.94 kg Sherman Calle MD Work Phone: [facility] 07-04-2023 07:56-0500 Diastolic blood pressure 78 mm[Hg] Sherman Calle MD Work Phone: [facility] 07-04-2023 07:56-0500 Respiratory rate 18 /min Sherman Calle MD Work Phone: [facility] 07-04-2023 07:56-0500 Systolic blood pressure 128 mm[Hg] Sherman Calle MD Work Phone: [facility] 09-05-2022 09:21-0400 Blood Pressure Location CYNTHIA GALLARDO [facility] 09-05-2022 09:21-0400 Diastolic blood pressure 74 mm[Hg] CYNTHIA GALLARDO [facility] 09-05-2022 09:21-0400 Heart rate 68 /min CYNTHIA GALLARDO [facility] 09-05-2022 09:21-0400 Respiratory rate 16 /min CYNTHIA GALLARDO [facility] 09-05-2022 09:21-0400 Systolic blood pressure 138 mm[Hg] CYNTHIA GALLARDO [facility] 08-10-2022 12:45-0400 Blood Pressure Location [facility] 08-10-2022 12:45-0400 Body temperature 97.7 [degF] [facility] 08-10-2022 12:45-0400 Diastolic blood pressure 72 mm[Hg] [facility] 08-10-2022 12:45-0400 Heart rate 79 /min [facility] 08-10-2022 12:45-0400 Systolic blood pressure 106 mm[Hg] [facility] 07-17-2022 11:22-0400 Blood Pressure Location Miki Mauricio [facility] 07-17-2022 11:22-0400 Diastolic blood pressure 78 mm[Hg] Miki Mauricio [facility] 07-17-2022 11:22-0400 Heart rate 68 /min Miki Mauricio [facility] 07-17-2022 11:22-0400 Respiratory rate 16 /min Miki Mauricio [facility] 07-17-2022 11:22-0400 Systolic blood pressure 122 mm[Hg] Miki Mauricio [facility] 07-11-2022 12:14-0400 Heart rate 74 /min Miki Mauricio [facility] 07-11-2022 12:14-0400 SaO2% (BldA) [Mass fraction] 97 % Miki Mourany [facility] 07-11-2022 12:14-0400 Body temperature 98.06 [degF] Miki Mourany [facility] 07-11-2022 12:13-0400 Diastolic blood pressure 79 mm[Hg] Miki Mourany [facility] 07-11-2022 12:13-0400 Mean blood pressure 94 mm[Hg] Miki Mourany [facility] 07-11-2022 12:13-0400 Systolic blood pressure 125 mm[Hg] Miki Mourany [facility] 07-11-2022 12:13-0400 Respiratory rate 18 /min Miki Mourany [facility] 07-11-2022 11:03-0400 Heart rate 61 /min Miki Mourany [facility] 07-11-2022 11:03-0400 SaO2% (BldA) [Mass fraction] 100 % Miki Mourany [facility] 07-11-2022 11:03-0400 Body temperature 97.7 [degF] Miki Mourany [facility] 07-11-2022 11:03-0400 Diastolic blood pressure 79 mm[Hg] Miki Mourany [facility] 07-11-2022 11:03-0400 Mean blood pressure 94 mm[Hg] Miki Mourany [facility] 07-11-2022 11:03-0400 Systolic blood pressure 125 mm[Hg] Miki Mourany [facility] 07-11-2022 11:03-0400 Respiratory rate 16 /min Miki Mourany [facility] 07-11-2022 11:00-0400 Body temperature 98.42 [degF] Miki Mourany [facility] 07-11-2022 11:00-0400 Mean blood pressure 103 mm[Hg] Miki Mourany [facility] 07-11-2022 11:00-0400 Respiratory rate 26 /min Miki Mourany [facility] 07-11-2022 10:45-0400 Mean blood pressure 105 mm[Hg] Miki Mourany [facility] 07-11-2022 10:45-0400 Respiratory rate 16 /min Miki Mourany [facility] 07-11-2022 10:30-0400 Mean blood pressure 102 mm[Hg] Miki Mourany [facility] 07-11-2022 10:30-0400 Respiratory rate 12 /min Miki Mourany [facility] 07-11-2022 09:37-0400 Body temperature 97.88 [degF] Miki Mourany [facility] 07-11-2022 07:00-0400 Heart rate 72 /min Miki Mourany [facility] 02-16-2022 12:27-0400 Diastolic blood pressure 85 mm[Hg] Wu SALAM [facility] 02-16-2022 12:27-0400 Mean blood pressure 102 mm[Hg] Wu SALAM [facility] 02-16-2022 12:27-0400 Systolic blood pressure 137 mm[Hg] Wu SALAM [facility] 02-16-2022 12:23-0400 Blood Pressure Location Wu SALAM [facility] 02-16-2022 12:23-0400 Diastolic blood pressure 83 mm[Hg] Wu SALAM [facility] 02-16-2022 12:23-0400 Heart rate 73 /min Wu SALAM [facility] 02-16-2022 12:23-0400 Respiratory rate 16 /min Wu SALAM [facility] 02-16-2022 12:23-0400 Systolic blood pressure 145 mm[Hg] Wu SALAM [facility] Encounters Encounter Date Encounter Type Care Provider Facility Start: 05-28-2024 End: 05-28-2024 Bamboo flowsheet Mayco Jose Ramon DO Work Phone: [facility] Start: 05-28-2024 End: 05-28-2024 Bamboo flowsheet Mayco Jose Ramon DO Work Phone: [facility] Start: 05-19-2024 End: 05-19-2024 ambulatory LINDSEY DICK Facility:[facility] Start: 05-19-2024 End: 05-19-2024 Patient encounter procedure CYNTHIA GALLARDO [facility] Start: 05-13-2024 End: 05-13-2024 Bamboo flowsheet Mayco Jose Ramon DO Work Phone: [facility] Start: 05-13-2024 End: 05-13-2024 Bamboo flowsheet Mayco Jose Ramon DO Work Phone: [facility] Start: 05-13-2024 End: 05-13-2024 Office outpatient visit 15 minutes Mayco Albright DO Work Phone: [facility] Comment on above: Encounter to discuss procedure; Pelvic pain in female; H/O: section; Abnormal uterine bleeding (AUB) Start: 05-13-2024 End: 05-13-2024 ambulatory MAYCO LUCEROO Not Available Start: 04-29-2024 End: 04-29-2024 [facility] Comment on above: Stage IV lupus nephr itis (WHO) ([facility] Start: 04-28-2024 End: 04-28-2024 Emergency department patient visit [facility] Start: 04-15-2024 End: 04-15-2024 Emergency department patient visit [facility] Start: 04-14-2024 End: 04-14-2024 ambulatory MICAELA HOLLIS Not Available Start: 04-14-2024 End: 04-14-2024 Bamboo flowsheet Micaela MICHAUD Work Phone: [facility] Start: 04-14-2024 End: 04-14-2024 Bamboo flowsheet Micaela MICHAUD Work Phone: [facility] Start: 04-14-2024 End: 04-14-2024 Online digital e/m svc est pt <7 d 5-10 minutes Micaela MICHAUD Work Phone: [facility] Comment on above: Pelvic pain in femal e (Primary Dx) Start: 04-09-2024 End: 04-09-2024 Office outpatient visit 40 minutes Sherman Calle MD Work Phone: [facility] Comment on above: Systemic lupus eryth ematosus, unspecified SLE type, unspecified organ involvement status ([facility]); Stage IV lupus nephritis (WHO) ([facility]); Fibromyalgia; 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 Start: 04-09-2024 End: 04-09-2024 [facility] Start: 04-09-2024 ambulatory [facility] Start: 04-09-2024 End: 04-09-2024 ambulatory [facility] Start: 04-04-2024 End: 04-04-2024 [facility] Start: 04-02-2024 End: 04-02-2024 Office outpatient visit 15 minutes Micaela MICHAUD Work Phone: [facility] Comment on above: Intrauterine device surveillance; Pelvic pain in female Start: 04-02-2024 End: 04-02-2024 ambulatory MICAELA HOLLIS Not Available Start: 04-02-2024 End: 04-02-2024 Bamboo flowsheet Micaela MICHAUD Work Phone: [facility] Start: 04-02-2024 End: 04-05-2024 Bamboo flowsheet Micaela MICHAUD Work Phone: [facility] Start: 04-02-2024 End: 04-05-2024 External Result Encounter Micaela MICHAUD Work Phone: [facility] External Department Unsolicited Start: 03-18-2024 End: 03-18-2024 Telemedicine consultation with patient Phoebe Lopez PARRIS Work Phone: [facility] Comment on above: BMI 39.0-39.9,adult (Primary Dx) Start: 03-18-2024 End: 03-18-2024 ambulatory PHOEBE J JESSICA [facility] Start: 03-17-2024 End: 03-17-2024 Telephone encounter [facility] Start: 03-14-2024 End: 03-14-[address] [facility] Start: 03-14-2024 End: 03-14-2024 Office outpatient visit 25 minutes Pasquale Alexander PA-C Work Phone: [facility] Comment on above: Migraine without aur a and without status migrainosus, not intractable (Primary Dx); Hemiplegic migraine without status migrainosus, not intractable; Fibromyalgia Start: 03-10-2024 End: 03-10-2024 Telephone encounter Chilo Bain MD Work Phone: [facility] Comment on above: Med Refill Start: 03-04-2024 End: 03-04-2024 Refill Miriam Sparrow CNA [facility] Comment on above: Stage IV lupus nephr itis (WHO) ([facility]); Systemic lupus erythematosus, unspecified SLE type, unspecified organ involvement status ([facility]) Start: 02-11-2024 End: 02-11-2024 [facility] Start: 02-11-2024 End: 02-11-2024 Emergency department patient visit [facility] Start: 02-11-2024 End: 02-18-2024 Telephone encounter Jessiac Chavarria [facility] Comment on above: Results Start: 02-04-2024 End: 02-04-2024 ambulatory SONIA Pope [facility] Start: 02-01-2024 End: 02-01-2024 Telephone encounter Rajni Amanda [facility] Yadira cunningham Comment on above: LUMBAR PUNCTURE Start: 01-31-2024 End: 02-05-2024 Evaluation and management of inpatient Diogo Bray MD Work Phone: [facility] 9 Acute Comment on above: Acute nonintractable headache, unspecified headache type (Primary Dx) Start: 01-30-2024 End: 01-31-2024 ambulatory [facility] Start: 01-30-2024 End: 01-30-2024 Office outpatient visit 15 minutes Jenny Cornell MD Work Phone: [facility] Comment on above: Lopez's palsy (Primar y Dx); Tinnitus of left ear Start: 01-30-2024 End: 01-30-2024 ambulatory JENNY CORNELL [facility] Start: 01-29-2024 End: 01-29-2024 ambulatory [facility] Facility:[facility] Start: 01-29-2024 End: 01-29-2024 Patient encounter procedure CYNTHIA GALLARDO [facility] Start: 01-28-2024 End: 02-01-2024 Telephone encounter Tosha [facility] Comment on above: Medical Update Start: 01-27-2024 End: 01-27-2024 Emergency department patient visit [facility] Start: 01-24-2024 End: 01-24-2024 Emergency department patient visit [facility] Start: 01-24-2024 End: 01-24-2024 Emergency department patient visit [facility] Start: 01-19-2024 End: 01-19-2024 Emergency department patient visit [facility] Start: 01-17-2024 End: 01-17-2024 ambulatory [facility] Start: 01-17-2024 End: 01-17-2024 ambulatory [facility] Start: 01-09-2024 ambulatory [facility] Start: 01-09-2024 End: 01-09-2024 ambulatory [facility] Start: 01-01-2024 End: 01-01-2024 ambulatory [facility] Start: 12-24-2023 End: 12-24-2023 Emergency department patient visit [facility] Start: 12-24-2023 End: 12-24-2023 Bamboo flowsheet Pasquale De Luna DPM Work Phone: [facility] Start: 12-24-2023 End: 12-24-2023 Bamboo flowsheet Pasquale De Luna DPM Work Phone: [facility] Start: 12-24-2023 End: 12-24-2023 Office outpatient visit 15 minutes Pasquale De Luna DPToshia Work Phone: [facility] Comment on above: Right foot pain (Marcy marcelino Dx); Os trigonum; Metatarsus adductus of right foot; Equinus contracture of right ankle; Instability of right ankle joint; Difficulty walking Start: 12-24-2023 End: 12-24-2023 ambulatory PASQUALE DE LUNA Not Available Start: 12-12-2023 End: 12-12-2023 ambulatory [facility] Start: 12-03-2023 End: 12-03-2023 ambulatory PASQUALE DE LUNA Not Available Start: 11-28-2023 End: 11-28-2023 ambulatory [facility] Start: 11-19-2023 End: 11-19-2023 ambulatory PASQUALE DE LUNA Not Available Start: 11-19-2023 End: 11-19-2023 Emergency department patient visit [facility] Start: 11-15-2023 End: 11-15-2023 ambulatory [facility] Start: 11-12-2023 End: 11-12-2023 Emergency department patient visit [facility] Start: 11-02-2023 End: 11-02-2023 Emergency department patient visit [facility] Start: 10-24-2023 End: 10-24-2023 ambulatory MAYCO ALBRIGHT Not Available Start: 10-23-2023 End: 10-23-2023 ambulatory PHOEBE LOPEZ [facility] Start: 10-08-2023 End: 10-08-2023 ambulatory [facility] Start: 10-05-2023 ambulatory [facility] Start: 10-05-2023 End: 10-05-2023 ambulatory [facility] Start: 10-02-2023 End: 10-02-[address] [facility] Start: 09-26-2023 End: 09-26-2023 ambulatory MAYCO JOSE RAMON Not Available Start: 09-17-2023 End: 09-17-2023 ambulatory MAYCO JOSE RAMON Not Available Start: 09-07-2023 End: 09-07-2023 ambulatory PASQUALE Nataliia ALEXANDER [facility] Start: 09-06-2023 End: 09-06-2023 Emergency department patient visit LINDSEY JENNINGS [facility] Start: 09-06-2023 End: 09-06-2023 ambulatory PHOEBE LOPEZ [facility] Start: 08-30-2023 End: 08-30-2023 ambulatory [facility] Start: 08-28-2023 End: 08-28-2023 ambulatory MICAELA HOLLIS Not Available Start: 08-23-2023 End: 08-23-2023 ambulatory Saw Huynh Facility:[facility] Start: 08-23-2023 End: 08-23-2023 Patient encounter procedure Spring Talal Sarmini [facility] Start: 08-22-2023 End: 08-22-2023 ambulatory [facility] Start: 08-22-2023 End: 08-23-2023 Emergency [facility] Start: 08-16-2023 End: 08-16-2023 ambulatory Mayco Jose Ramon Facility:[facility] Start: 08-16-2023 End: 08-16-2023 ambulatory Mayco Jose Ramon Work Phone: [facility] Work Phone: Start: 08-16-2023 End: 08-16-2023 Departed Referred Mayco Jose Ramon Work Phone: [facility] Start: 08-14-2023 End: 08-14-2023 ambulatory BILLY Jenkins [facility] Start: 08-02-2023 End: 08-02-2023 ambulatory MAYLIN PORTILLO [facility] Start: 08-02-2023 End: 08-02-2023 Office outpatient new 30 minutes Maylin Portillo DO Work Phone: [facility] Comment on above: Bilateral pulmonary embolism ([facility]) October 2019 (Primary Dx); Personal history of PE (pulmonary embolism); Dyspnea on exertion; Environmental allergies Start: 07-31-2023 End: 07-31-2023 Office outpatient visit 40 minutes hSerman Calle MD Work Phone: [facility] Comment on above: BMI 39.0-39.9,adult (Primary Dx); Stage IV lupus nephritis (WHO) ([facility]); Systemic lupus erythematosus, unspecified SLE type, unspecified organ involvement status ([facility]); 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 Start: 07-26-2023 End: 07-26-2023 [facility] Start: 07-23-2023 End: 07-23-2023 ambulatory PASQUALE [facility] Start: 07-16-2023 Telephone encounter Sudha VAUGHN N [facility] Start: 07-15-2023 End: 07-15-2023 Emergency department patient visit BILLY ZELAYA [facility] Start: 07-13-2023 Telephone encounter Sherri Emmanuel [facility] Comment on above: Prior Authorization Start: 07-12-2023 End: 07-12-2023 Office outpatient visit 40 minutes Sade Rosas MD Work Phone: N [facility] Comment on above: Lupus nephritis ([facility]) (Primary Dx); Essential hypertension Start: 07-09-2023 End: 07-09-2023 ambulatory MAYCO ALBRIGHT Not Available Start: 07-06-2023 Telephone encounter Minda Hinkle CMA N [facility] Start: 07-06-2023 ambulatory [facility] Start: 07-06-2023 End: 07-06-2023 ambulatory [facility] Start: 07-05-2023 Documentation procedure Dee Dee Maciel [facility] Start: 07-05-2023 End: 07-05-2023 ambulatory [facility] Start: 07-05-2023 End: 07-05-2023 Office outpatient new 60 minutes [facility] Alexander PA-C Work Phone: [facility] Comment on above: Daily headache (Prim jina Dx); Migraine without aura and without status migrainosus, not intractable; Vision changes; Uncontrolled hypertension; Fibromyalgia Start: 07-05-2023 End: 07-05-2023 Office outpatient visit 40 minutes Tuyet Warren MD Work Phone: Yolis Rodrigues [facility] - Medical Oncology Comment on above: Bilateral pulmonary embolism (CMS-HCC) October 2019 (Primary Dx); History of DVT (deep vein thrombosis); Preoperative clearance Start: 07-05-2023 End: 07-05-2023 Preoperative state Tuyet Warren MD Work Phone: [facility] Start: 07-05-2023 End: 07-05-[address] 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 Start: 06-24-2023 End: 06-25-2023 Emergency department patient visit SHANTEL BOWDEN [facility] Start: 06-24-2023 End: 06-25-2023 Emergency department patient visit BILLY Jenkins [facility] Start: 06-21-2023 Refill Tuyet aWrren MD Work Phone: [facility] Start: 06-21-2023 Refill Bucky Marcus [facility] Start: 06-20-2023 End: 06-22-20[facility] Start: 06-19-2023 Telephone encounter Nora VAUGHN N [facility] Start: 06-19-2023 End: 06-22-2023 [facility] Start: 06-19-2023 End: 06-21-2023 ambulatory BILLY Jenkins [facility] Start: 06-18-2023 [facility]phone [facility] Start: 06-16-2023 End: 06-17-2023 Emergency department patient visit MAXIMINO SAMUEL [facility] Start: 06-14-2023 Telephone encounter [facility] Start: 06-14-2023 End: 06-15-2023 ambulatory CHILO BAIN [facility] Start: 06-14-2023 End: 06-14-2023 ambulatory SIMONE FRANKLIN [facility] Start: 06-13-2023 Orders Only Chilo rg MD Work Phone: [facility] Comment on above: Stage IV lupus nephr itis (WHO) ([facility]) (Primary Dx); Stage 3 chronic kidney disease, unspecified whether stage 3a or 3b CKD ([facility]) Start: 06-11-2023 Telephone encounter Keke Montero CMA [facility] Start: 06-06-2023 Telephone encounter Digna Valladares RN [facility] Comment on above: Cardiac Clearance Start: 06-05-2023 End: 06-06-2023 Emergency department patient visit BILLY Jenkins [facility] Start: 06-05-2023 End: 06-06-2023 ambulatory SIMONE FRANKLIN [facility] Start: 06-05-2023 Telephone encounter Kirstie Cantu i [facility] Start: 06-04-2023 Telephone encounter Aster Guthrie CMA [facility] Start: 06-04-2023 End: 06-04-2023 Emergency department patient visit BILLY Jenkins [facility] Start: 06-03-2023 End: 06-03-2023 Emergency department patient visit BILLY Jenkins [facility] Start: 05-24-2023 End: 05-24-2023 Emergency department patient visit BILLY Jenkins [facility] Start: 05-22-2023 End: 05-22-2023 Emergency department patient visit BILLY Jenkins [facility] Start: 05-21-2023 End: 05-21-2023 ambulatory SIMONE Alice [facility] Start: 05-18-2023 Telephone encounter Cynthia Dodge CMA [facility] Start: 05-15-2023 End: 05-16-2023 Emergency department patient visit SARAH MAC [facility] Start: 05-15-2023 End: 05-16-2023 Emergency department patient visit BILLY Jenkins [facility] Start: 05-14-2023 Chart abstracting Simone smalls MD Work Phone: [facility] Start: 05-10-2023 End: 05-11-2023 Emergency department patient visit DONALDO HAHN [facility] Start: 05-03-2023 End: 05-03-2023 ambulatory [facility] Start: 04-25-2023 Documentation procedure Dee Dee Rodrigues [facility] Start: 03-13-2023 End: 03-13-2023 Patient encounter procedure CYNTHIA Chastity GALLARDO [facility] Start: 09-05-2022 End: 09-05-2022 Patient encounter procedure CYNTHIA Haywood PAULINA [facility] Start: 08-10-2022 End: 08-10-2022 Patient encounter procedure Katrin Resendiz [facility] Start: 08-10-2022 End: 08-10-2022 Patient encounter procedure Katrin Resendiz [facility] Start: 07-17-2022 End: 07-17-2022 Patient encounter procedure Miki Mauricio [facility] Start: 07-11-2022 End: 07-11-2022 Admission to same day surgery center Miki Mauricio [facility] Start: 07-05-2022 ambulatory Issa astorga:[id number] Start: 03-14-2022 End: 03-14-[address] MAYCO ALBRIGHT Facility:[facility] Start: 02-16-2022 End: 02-16-2022 Patient encounter procedure Jazmin ROBERTSON [facility] Start: 02-16-2022 End: 06-01-2022 Recurring Jazmin ROBERTSON [facility] Start: 02-16-2022 End: 02-16-2022 Patient encounter procedure Jazmin ROBERTSON [facility] Start: 12-12-2021 End: 12-12-2021 ambulatory MELONY BERTRAND Facility: Procedures Date Procedure Procedure Detail Performing Clinician Start: 04-02-2024 URINARY TRACT INFECTION (HTRX) Micaela MICHAUD Work Phone: Start: 04-02-2024 Urnls dip stick/tablet rgnt non-auto w/o micrscp Micaela MICHAUD Work Phone: Start: 03-14-2024 Adult depression screening assessment Pasquale Alexander PA-C Work Phone: Start: 02-05-2024 Diagnostic lumbar spinal puncture w/fluor or ct Luis Delarosa MD Work Phone: Start: 02-05-2024 Cell count misc body fluids w/differential count Pat Hawk MD Work Phone: Start: 02-05-2024 CSF SPINAL FLUID CULTURE INCLUDES GRAM STAIN Pat Hawk MD Work Phone: Start: 02-05-2024 Glucose body fluid other than blood Pat Hawk MD Work Phone: Start: 02-05-2024 MENINGITIS PANEL, CSF Pat Hawk MD Work Phone: Start: 02-05-2024 TOTAL PROTEIN ON CSF Pat Hawk MD Work Phone: Start: 02-05-2024 Thromboplastin time partial plasma/whole blood Diogo Bray MD Work Phone: Start: 02-04-2024 Blood count hemoglobin Luis reddy MD Work Phone: Start: 02-03-2024 End: 02-03-2024 Mri spinal canal cervical w/o & w/contr matrl Luis Delarosa MD Work Phone: Start: 02-03-2024 Basic metabolic panel calcium total Pat Hawk MD Work Phone: Start: 02-02-2024 Duplex scan extracranial art compl bi study Luis Delarosa MD Work Phone: Start: 02-02-2024 Thromboplastin time partial plasma/whole blood Diogo Bray MD Work Phone: Start: 02-02-2024 Basic metabolic panel calcium total Pat Hawk MD Work Phone: Start: 02-02-2024 Thromboplastin time partial plasma/whole blood Diogo Bray MD Work Phone: Start: 02-01-2024 Blood count hemoglobin Luis reddy MD Work Phone: Start: 02-01-2024 Basic metabolic panel calcium total Pat Hawk MD Work Phone: Start: 02-01-2024 Adult depression screening assessment Jessica Chavarria Start: 01-31-2024 End: 02-01-2024 Ct angiography head w/contrast/noncontrast Pat Hawk MD Work Phone: Start: 01-31-2024 Prothrombin time Pat Hawk MD Work Phone: Start: 01-31-2024 PULSE OXIMETRY, SPOT Pat Hawk MD Work Phone: Start: 12-24-2023 Radex foot complete minimum 3 views Pasquale De Luna DPM Work Phone: Start: 07-05-2023 Adult depression screening assessment Tuyet Warren MD Work Phone: Start: 06-27-2023 Follow-up visit Follow-up FROY HARMON Start: 06-19-2023 Adult depression screening assessment Zackery Lerma [facility] Start: 04-18-2023 Microscopic observation [Identifier] in Cervix by Cyto stain Sade Rosas MD Work Phone: Start: 12-18-2022 Adult depression screening assessment Dee Dee Hernandez RN Start: 03-14-2022 Microscopic observation [Identifier] in Cervix by Cyto stain Dee Dee Hernandez RN Start: 03-23-2020 End: 06-30-2020 H/O: section Previous delivery, antepartum Dee Dee Hernandez RN section Miki Reynoso paxton Cholecystectomy Miki Duongnathaliepaxton H/O: section H/O: secti on Mayco Jose Ramon DO Work Phone: Incision and drainag e of hematoma Miki Hang Ligation of fallopian tube J ohprashanth Reynosopaxton Plan of Treatment Date Care Activity Detail Author Start: 03-23-2030 DTaP,Tdap and Td Vaccines (9 - Td or Tdap) DTaP,Tdap and Td Vaccines (9 - Td or Tdap) [facility] Start: 04-18-2026 Screening for malignant neoplasm of cervix Pap Smear [facility] Start: 04-28-2025 Adult BMI Screening [facility] Start: 04-28-2025 Tobacco Screening Tobacco Screening [facility] Start: 04-09-2025 Adult BMI Screening [facility]ening [facility] Start: 04-09-2025 Tobacco Screening Tobacco Screening [facility] Start: 03-14-2025 Adult BMI Screening [facility] Start: 03-14-2025 Depression Screening [facility]ening [facility] Start: 03-14-2025 Screening for malignant neoplasm of cervix Pap Smear [facility] Start: 03-14-2025 Tobacco Screening Tobacco Screening [facility] Start: 02-02-2025 Adult BMI Screening Adult [facility]ening [facility] Start: 01-31-2025 Depression Screening [facility]ening [facility] Start: 01-31-2025 Tobacco Screening Tobacco Screening [facility] Start: 01-30-2025 Adult BMI Screening Adult BMI Screening [facility] Start: 01-30-2025 Tobacco Screening Tobacco Screening [facility] Start: 01-29-2025 Adult BMI Screening Adult BMI Screening [facility] Start: 01-26-2025 Tobacco Screening Tobacco Screening [facility] Start: 08-13-2024 End: 08-13-2024 Patient encounter procedure 08/13/2024 10:30 AM EDT Office Visit [facility] [address] [place] [address] Pasquale Alexander PA-C [address] [place] [address] [facility] Start: 08-01-2024 Adult BMI Screening Adult BMI Screening [facility] Start: 08-01-2024 Tobacco Screening Tobacco Screening [facility] Start: 07-30-2024 Adult BMI Screening Adult BMI Screening [facility] Start: 07-30-2024 Tobacco Screening Tobacco Screening [facility] Start: 07-14-2024 Adult BMI Screening Adult BMI Screening [facility] Start: 07-14-2024 Tobacco Screening Tobacco Screening [facility] Start: 07-11-2024 Adult BMI Screening Adult BMI Screening [facility] Start: 07-11-2024 Tobacco Screening Tobacco Screening [facility] Start: 07-09-2024 End: 07-09-2024 Patient encounter procedure 07/09/2024 1:15 PM EDT Office Visit [facility] [address] [id number] Sherman Calle MD [address] [id number] [facility] Start: 07-08-2024 End: 04-09-2025 C-reactive protein C-reactive protein Lab Routine Stage IV lupus nephritis (WHO) ([facility]) Expected: 07/08/2024 (Approximate), Expires: 04/09/2025 [employer] Comment on above: Expected: 07/08/2024 (Approximate), Expi res: 04/09/2025 Start: 07-08-2024 End: 04-09-2025 CBC W Auto Differential panel - Blood CBC auto differential Lab Routine Stage IV lupus nephritis (WHO) ([facility]) 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 Expected: 07/08/2024 (Approximate), Expires: 04/09/2025 [employer] Comment on above: Expected: 07/08/2024 (Approximate), Expi res: 04/09/2025 Start: 07-08-2024 End: 04-09-2025 Comprehensive metabolic 2000 panel - Serum or Plasma Comprehensive metabolic panel Lab Routine Stage IV lupus nephritis (WHO) ([facility]) 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 Expected: 07/08/2024 (Approximate), Expires: 04/09/2025 [employer] Comment on above: Expected: 07/08/2024 (Approximate), Expi res: 04/09/2025 Start: 07-08-2024 End: 04-09-2025 Erythrocyte sedimentation rate Erythrocyte Sedimentation Rate (ESR) Lab Routine Stage IV lupus nephritis (WHO) ([facility]) Expected: 07/08/2024 (Approximate), Expires: 04/09/2025 [employer] Work Phone: Comment on above: Expected: 07/08/2024 (Approximate), Expi res: 04/09/2025 Start: 07-08-2024 End: 04-09-2025 Protein creat ratio Protein creat ratio Lab Routine Stage IV lupus nephritis (WHO) ([facility]) Expected: 07/08/2024 (Approximate), Expires: 04/09/2025 [employer] Comment on above: Expected: 07/08/2024 (Approximate), Expi res: 04/09/2025 Start: 07-08-2024 End: 04-09-2025 Urinalysis Urinalysis Lab Routine Stage IV lupus nephritis (WHO) ([facility]) Expected: 07/08/2024 (Approximate), Expires: 04/09/2025 [facility] Comment on above: Expected: 07/08/2024 (Approximate), Expi res: 04/09/2025 Start: 07-04-2024 Adult BMI Screening Adult BMI Screening [facility] Start: 07-04-2024 Depression Screening Depression Screening [facility] Start: 07-04-2024 Tobacco Screening Tobacco Screening [facility] Start: 07-03-2024 Adult BMI Screening Adult BMI Screening [facility] Start: 07-03-2024 End: 07-03-2024 Patient encounter procedure 07/03/2024 9:00 AM EST Office Visit Yolis L [facility] - Medical Oncology [address] [place] [phone] Tuyet Warren MD [address] [place] [address] Yolis Maciel [facility] - Medical Oncology Start: 06-27-2024 Adult [...] Tobacco Screening [facility] Start: 06-10-2024 End: 06-10-2024 Patient encounter procedure 06/10/2024 1:50 PM EST Consult [facility] [address] [place] [phone] Mayco Albright, [address] [place] [address] [facility] Start: 06-05-2024 Adult BMI Screening Adult BMI Screening [facility] Start: 06-05-2024 Tobacco Screening Tobacco Screening [facility] Start: 06-02-2024 End: 07-04-2024 CBC W Auto Differential panel - Blood CBC auto differential Lab Routine Bilateral pulmonary embolism (CMS-HCC) Expected: 06/02/2024, Expires: 07/04/2024 [employer] Work Phone: Comment on above: Expected: 06/02/2024, Expires: Start: 06-02-2024 End: 07-04-2024 Comprehensive metabolic 2000 panel - Serum or Plasma Comprehensive metabolic panel Lab Routine Bilateral pulmonary embolism (CMS-HCC) Expected: 06/02/2024 (Approximate), Expires: 07/04/2024 [facility] [employer] Comment on above: Expected: 06/02/2024 (Approximate), Expi res: 07/04/2024 Start: 05-28-2024 End: 05-28-2024 Patient encounter procedure [facility] Comment on above: Arrived Start: 05-15-2024 Adult BMI Screening Adult BMI Screening [facility] Start: 05-15-2024 Tobacco Screening Tobacco Screening [facility] Start: 05-13-2024 End: 05-13-2024 Patient encounter procedure 05/13/2024 1:20 PM EST Office Visit [facility] [address] [place] [address] Mayco Albright, [address] [address] Arrived [facility] Comment on above: Arrived Start: 05-10-2024 Adult BMI Screening Adult BMI Screening [facility] Start: 05-10-2024 Tobacco Screening Tobacco Screening [facility] Start: 04-14-2024 End: 04-14-2024 Patient encounter procedure 04/14/2024 11:50 AM EST Office Visit [facility] [address] [place] [phone] Micaela Hollis, PA [address] [facility] [place] [address] [facility] Start: 04-02-2024 End: 04-02-2024 Patient encounter procedure 04/02/2024 3:40 PM EST Office Visit [facility] [address] [facility] [place] [address] Micaela Hollis, PA [address] [facility] [place] [address] Arrived [facility] Comment on above: Arrived Start: 04-02-2024 Adult BMI Screening Adult BMI Screening [facility] Start: 04-02-2024 Tobacco Screening Tobacco Screening [facility] Start: 04-02-2024 End: 04-02-2024 Patient encounter procedure 04/02/2024 9:30 AM EST Office Visit [facility] [address] [phone] Sherman Calle MD [address] [address] [facility] Start: 03-18-2024 End: 03-18-2024 Telemedicine consultation with patient 03/18/2024 9:30 AM EST Telemedicine [facility] Outpatient Diabetes and Nutrition Education Program [address] [facility] [place] [address] [place] [phone] Phoebe Lopez, LD [address] [facility] [place] [address] [place] [phone] [facility] Outpatient Diabetes and Nutrition Education Program Start: 03-14-2024 End: 03-14-2024 Patient encounter procedure 03/14/2024 10:30 AM EST Office Visit [facility] [address] [place] [address] [place] [phone] Pasquale Alexander PA-C [address] [place] [phone] [facility] Start: 12-30-2023 Influenza vaccination [facility] Start: 12-24-2023 End: 12-24-2023 Patient encounter procedure 12/24/2023 1:00 PM EDT [facility] [address] [place] [phone] Pasquale De Luna, DPM [address] [facility] [address] [place], [place] [phone] Arrived [facility] Comment on above: Arrived Start: 12-19-2023 Depression Screening Depression Screening [facility] Start: 10-18-2023 End: 10-18-2023 Patient encounter procedure [facility] Start: 09-07-2023 End: 09-07-2023 Patient encounter procedure 09/07/2023 10:00 AM EDT Office Visit [facility] [address] [facility] [place] [phone] Pasquale Alexander PA-C [address] [place] [phone] [facility] Start: 08-30-2023 End: 07-30-2024 Creatinine includes GFR, serum Creatinine includes GFR, serum Lab Routine Stage IV lupus nephritis (WHO) ([facility]) Expected: 08/30/2023 (Approximate), Expires: 07/30/2024 [facility] Comment on above: Expected: 08/30/2023 (Approximate), Expi res: 07/30/2024 Start: 08-30-2023 End: 07-30-2024 Protein creat ratio Protein creat ratio Lab Routine Stage IV lupus nephritis (WHO) ([facility]) Expected: 08/30/2023 (Approximate), Expires: 07/30/2024 [facility] Comment on above: Expected: 08/30/2023 (Approximate), Expi res: 07/30/2024 Start: 08-30-2023 End: 07-30-2024 Urinalysis Urinalysis Lab Routine Stage IV lupus nephritis (WHO) ([facility]) Expected: 08/30/2023 (Approximate), Expires: 07/30/2024 [facility] Comment on above: Expected: 08/30/2023 (Approximate), Expi res: 07/30/2024 Start: 08-30-2023 End: 08-30-2023 Patient encounter procedure 08/30/2023 10:45 AM EDT Office Visit [facility] [address] [phone] Sherman Calle MD [address] [address] [facility] Start: 08-14-2023 End: 07-30-2024 Creatinine includes GFR, serum Creatinine includes GFR, serum Lab Routine Stage IV lupus nephritis (WHO) ([facility]) Expected: 08/14/2023 (Approximate), Expires: 07/30/2024 [facility] Work Phone: Comment on above: Expected: 08/14/2023 (Approximate), Expi res: 07/30/2024 Start: 08-14-2023 End: 08-14-2023 Patient encounter procedure 08/14/2023 10:30 AM EDT Appointment [facility] - Pulmonary Function [address] [facility] [address] Maylin Portillo DO [address] [address] [facility] - Pulmonary Function Start: 08-06-2023 End: 08-06-2023 Patient encounter procedure 08/06/2023 8:30 AM EDT Office Visit [facility] [address] [phone] Sherman Calle MD [address] [address] [facility] Start: 08-02-2023 End: 08-02-2023 Patient encounter procedure 08/02/2023 10:00 AM EDT Office Visit [facility] [address] [facility] [place] [address] Maylin Portillo DO [address] [address] [facility] Start: 07-31-2023 End: 07-31-2023 Patient encounter procedure 07/31/2023 1:15 PM EDT Office Visit [facility] [address] [phone] Sherman Calle MD [address] [address] [facility] Start: 07-23-2023 End: 07-23-2023 Patient encounter procedure 07/23/2023 9:45 AM EDT Appointment [facility] - MRI Imaging [address] [place] [address] [facility] - MRI Imaging Start: 07-12-2023 End: 07-12-2023 Patient encounter procedure 07/12/2023 9:30 AM EDT Office Visit [facility] Kerri [address] [place] [phone] Sade Rosas MD [address] [place] [phone] [facility] Start: 07-05-2023 End: 07-04-2024 MR Brain WO contrast MR brain without contrast Imaging Routine Daily headache Migraine without aura and without status migrainosus, not intractable Vision changes Expected: 07/05/2023, Expires: 07/04/2024 [facility] Work Phone: Comment on above: Expected: 07/05/2023, Expires: Start: 07-05-2023 End: 07-05-2023 Patient encounter procedure 07/05/2023 10:00 AM EST Office Visit [facility] [address] [place] [address] Pasquale Alexander, RUFINO [address] [facility] [place] [address] [facility] Start: 07-05-2023 End: 07-05-2023 Telemedicine consultation with patient 07/05/2023 9:[address] [facility] - Medical Oncology [address] [place] [phone] Tuyet Warren MD [facility] [address] [place], [place] [phone] Yolis Maciel [facility] - Medical Oncology Start: 07-04-2023 End: 07-03-2024 C-reactive protein C-reactive protein Lab Routine Stage IV lupus nephritis (WHO) ([facility]) Systemic lupus erythematosus, unspecified SLE type, unspecified organ involvement status ([facility]) Expected: 07/04/2023 (Approximate), Expires: 07/03/2024 [employer] Comment on above: Expected: 07/04/2023 (Approximate), Expi res: 07/03/2024 Start: 07-04-2023 End: 07-03-2024 CBC W Auto Differential panel - Blood CBC auto differential Lab Routine Stage IV lupus nephritis (WHO) ([facility]) Systemic lupus erythematosus, unspecified SLE type, unspecified organ involvement status ([facility]) 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 Expected: 07/04/2023 (Approximate), Expires: 07/03/2024 [employer] Comment on above: Expected: 07/04/2023 (Approximate), Expi res: 07/03/2024 Start: 07-04-2023 End: 07-03-2024 Comprehensive metabolic 2000 panel - Serum or Plasma Comprehensive metabolic panel Lab Routine Stage IV lupus nephritis (WHO) ([facility]) Systemic lupus erythematosus, unspecified SLE type, unspecified organ involvement status ([facility]) Expected: 07/04/2023 (Approximate), Expires: 07/03/2024 [employer] Comment on above: Expected: 07/04/2023 (Approximate), Expi res: 07/03/2024 Start: 07-04-2023 End: 07-03-2024 Erythrocyte sedimentation rate Erythrocyte Sedimentation Rate (ESR) Lab Routine Stage IV lupus nephritis (WHO) ([facility]) Systemic lupus erythematosus, unspecified SLE type, unspecified organ involvement status ([facility]) Expected: 07/04/2023 (Approximate), Expires: 07/03/2024 [employer] Work Phone: Comment on above: Expected: 07/04/2023 (Approximate), Expi res: 07/03/2024 Start: 07-04-2023 End: 07-03-2024 Protein creat ratio Protein creat ratio Lab Routine Stage IV lupus nephritis (WHO) ([facility]) Expected: 07/04/2023 (Approximate), Expires: 07/03/2024 [employer] Comment on above: Expected: 07/04/2023 (Approximate), Expi res: 07/03/2024 Start: 07-04-2023 End: 07-03-2024 Unlisted Lab Test Unlisted Lab Test Lab Routine Stage IV lupus nephritis (WHO) ([facility]) Systemic lupus erythematosus, unspecified SLE type, unspecified organ involvement status ([facility]) Expected: 07/04/2023, Expires: 07/03/2024 [employer] Comment on above: Expected: 07/04/2023, Expires: Start: 07-04-2023 End: 07-03-2024 Urinalysis Urinalysis Lab Routine Stage IV lupus nephritis (WHO) ([facility]) Expected: 07/04/2023 (Approximate), Expires: 07/03/2024 [facility] Comment on above: Expected: 07/04/2023 (Approximate), Expi res: 07/03/2024 Start: 07-04-2023 End: 07-04-2023 Patient encounter procedure [facility] Start: 07-03-2023 End: 07-03-2023 Patient encounter procedure 07/03/2023 8:00 AM EST Office Visit [facility] [address] [place] [phone] Pasquale Alexander PA-C [address] [facility] [place] [phone] [facility] Start: 06-28-2023 End: 06-28-2023 ambulatory 06/28/2023 10:00 AM EST Lab Yolis Maciel [facility] - Medical Oncology [address] [place] [address] Yolis Maciel [facility] - Medical Oncology Start: 06-21-2023 End: 06-21-2023 Patient encounter procedure 06/21/2023 9:30 AM EST Office Visit [facility] [address] [facility] [address] [place] [address] Chilo Bain MD [address] [facility] [address] [place] [phone] [facility] Start: 06-20-2023 End: 06-13-2024 Basic metabolic 2000 panel - Serum or Plasma Basic Metabolic Panel Lab Routine Stage IV lupus nephritis (WHO) ([facility]) Stage 3 chronic kidney disease, unspecified whether stage 3a or 3b CKD ([facility]) Expected: 06/20/2023 (Approximate), Expires: 06/13/2024 [facility] Work Phone: Comment on above: Expected: 06/20/2023 (Approximate), Expi res: 06/13/2024 Start: 06-20-2023 End: 06-13-2024 CBC panel - Blood by Automated count CBC without diff Lab Routine Stage IV lupus nephritis (WHO) ([facility]) Stage 3 chronic kidney disease, unspecified whether stage 3a or 3b CKD ([facility]) Expected: 06/20/2023 (Approximate), Expires: 06/13/2024 [employer] Comment on above: Expected: 06/20/2023 (Approximate), Expi res: 06/13/2024 Start: 06-20-2023 End: 06-13-2024 Magnesium [Mass/volume] in Serum or Plasma Magnesium Lab Routine Stage IV lupus nephritis (WHO) ([facility]) Stage 3 chronic kidney disease, unspecified whether stage 3a or 3b CKD ([facility]) Expected: 06/20/2023 (Approximate), Expires: 06/13/2024 [employer] Comment on above: Expected: 06/20/2023 (Approximate), Expi res: 06/13/2024 Start: 06-20-2023 End: 06-13-2024 Parathyroid Hormone, intact Parathyroid Hormone, intact Lab Routine Stage IV lupus nephritis (WHO) ([facility]) Stage 3 chronic kidney disease, unspecified whether stage 3a or 3b CKD ([facility]) Expected: 06/20/2023 (Approximate), Expires: 06/13/2024 [employer] Comment on above: Expected: 06/20/2023 (Approximate), Expi res: 06/13/2024 Start: 06-20-2023 End: 06-13-2024 Phosphate [Mass/volume] in Serum or Plasma Phosphorus Lab Routine Stage IV lupus nephritis (WHO) ([facility]) Stage 3 chronic kidney disease, unspecified whether stage 3a or 3b CKD ([facility]) Expected: 06/20/2023 (Approximate), Expires: 06/13/2024 [employer] Comment on above: Expected: 06/20/2023 (Approximate), Expi res: 06/13/2024 Start: 06-20-2023 End: 06-13-2024 Protein creat ratio Protein creat ratio Lab Routine Stage IV lupus nephritis (WHO) ([facility]) Stage 3 chronic kidney disease, unspecified whether stage 3a or 3b CKD ([facility]) Expected: 06/20/2023 (Approximate), Expires: 06/13/2024 [facility] Comment on above: Expected: 06/20/2023 (Approximate), Expi res: 06/13/2024 Start: 06-20-2023 End: 06-13-2024 Vitamin D 25 hydroxy Vitamin D 25 hydroxy Lab Routine Stage IV lupus nephritis (WHO) ([facility]) Stage 3 chronic kidney disease, unspecified whether stage 3a or 3b CKD ([facility]) Expected: 06/20/2023 (Approximate), Expires: 06/13/2024 [facility] Comment on above: Expected: 06/20/2023 (Approximate), Expi res: 06/13/2024 Start: 06-19-2023 End: 06-19-2023 Patient encounter procedure 06/19/2023 11:00 AM EST Office Visit [facility] [address] [place] [phone] Pasquale Alexander PA-C [address] [place] [address] [facility] Start: 06-14-2023 End: 06-14-2023 Patient encounter procedure [facility] -CardioVascular Start: 06-14-2023 End: 06-14-2023 Patient encounter procedure [facility] -Nuclear MedIcine Start: 06-08-2023 End: 06-08-2023 Patient encounter procedure 06/08/2023 1:00 PM EST Appointment [facility] - Neurophysiology [address] [place] [address] [facility] Start: 06-06-2023 End: 06-06-2024 SPECT Heart gated and ejection fraction at rest and W stress and W radionuclide IV Nuc stress exercise Cardiac Services Routine Angina pectoris, unstable ([facility]) Expected: 06/06/2023, Expires: 06/06/2024 [facility] Work Phone: Comment on above: Expected: 06/06/2023, Expires: Start: 05-21-2023 End: 05-21-2023 Patient encounter procedure 05/21/2023 10:30 AM EST Office Visit [facility] [address] [place] [phone] Simone Franklin MD [address] [place] [address] [facility] Start: 05-03-2023 End: 05-03-2023 Patient encounter procedure 05/03/2023 8:30 AM EST Office Visit [facility] [address] [phone] Sherman Calle MD [address] [address] [facility] Start: 11-10-2009 Adult BMI Follow Up Plan Adult BMI Follow Up Plan [facility] Start: 11-10-2009 Diabetic foot examination Diabetic Foot Exam [facility] Start: 1991 Glaucoma screening Diabetic Ophthalmology Exam [facility] End: 07-11-2024 Albumin [Mass/volume] in Serum or Plasma Albumin Lab Routine Lupus nephritis ([facility]) 1 Occurrences starting 07/12/2023 until 07/11/2024 [facility] Work Phone: Comment on above: 1 Occurrences starting 07/12/2023 until 07/11/2024 Aquaporin 4 water channel IgG Ab [Presence] in Cerebral spinal fluid NMO/AQP3 FACS,CSF Lab Routine 02/05/2024 9:14 AM EDT [facility] Aquaporin 4 water channel IgG Ab [Presence] in Serum or Plasma NMO/AQP4 FACS, Serum Lab Routine 02/04/2024 7:44 AM EDT [facility] Bacteria identified in Cerebral spinal fluid by Culture Spinal Fluid culture includes gram stain, CSF Microbiology Routine 02/05/2024 9:45 AM EDT [employer] End: 07-11-2024 Basic metabolic 2000 panel - Serum or Plasma Basic Metabolic Panel Lab Routine Lupus nephritis ([facility]) 1 Occurrences starting 07/12/2023 until 07/11/2024 [facility] [employer] [employer] Comment on above: 1 Occurrences starting 07/12/2023 until 07/11/2024 End: 07-03-2024 C3 complement C3 complement Lab Routine Stage IV lupus nephritis (WHO) ([facility]) Systemic lupus erythematosus, unspecified SLE type, unspecified organ involvement status ([facility]) 1 Occurrences starting 07/04/2023 until 07/03/2024 [facility] [employer] [employer] Comment on above: 1 Occurrences starting 07/04/2023 until 07/03/2024 End: 07-03-2024 C4 complement C4 complement Lab Routine Systemic lupus erythematosus, unspecified SLE type, unspecified organ involvement status ([facility]) 1 Occurrences starting 07/04/2023 until 07/03/2024 [facility] [employer] Comment on above: 1 Occurrences starting 07/04/2023 until 07/03/2024 End: 07-11-2024 CBC panel - Blood by Automated count CBC without diff Lab Routine Lupus nephritis ([facility]) 1 Occurrences starting 07/12/2023 until 07/11/2024 [facility] [employer] Comment on above: 1 Occurrences starting 07/12/2023 until 07/11/2024 End: 02-04-2024 CSF IgG Index Profile CSF IgG Index Profile Lab Routine Once for 1 Occurrences starting 02/04/2024 until 02/04/2024 [facility] [employer] [employer] Comment on above: Once for 1 Occurrences starting 02/04/20 24 until 02/04/2024 End: 08-01-2024 Eosinophil count Eosinophil count Lab Routine Environmental allergies 1 Occurrences starting 08/02/2023 until 08/01/2024 [employer] Comment on above: 1 Occurrences starting 08/02/2023 until 08/01/2024 IgG synthesis rate [Mass/time] in Serum and CSF by calculation CSF IgG Index Profile Lab Routine 02/04/2024 7:44 AM EDT [employer] End: 07-11-2024 Magnesium [Mass/volume] in Serum or Plasma Magnesium Lab Routine Lupus nephritis ([facility]) 1 Occurrences starting 07/12/2023 until 07/11/2024 [employer] Comment on above: 1 Occurrences starting 07/12/2023 until 07/11/2024 End: 02-04-2024 Myelin Oligodendrocyte Glycoprotein (MOG-IgG1) [employer] Comment on above: Once for 1 Occurrences starting 02/04/20 until 02/04/2024 End: 02-04-2024 NMO/AQP3 FACS,CSF NMO/AQP3 FACS,CSF Lab Routine Once for 1 Occurrences starting 02/04/2024 until 02/04/2024 [employer] Comment on above: Once for 1 Occurrences starting 02/04/20 until 02/04/2024 End: 02-04-2024 NMO/AQP4 FACS, Serum NMO/AQP4 FACS, Serum Lab Routine Once for 1 Occurrences starting 02/04/2024 until 02/04/2024 [employer] Comment on above: Once for 1 Occurrences starting 02/04/20 until 02/04/2024 End: 02-04-2024 Oligoclonal banding CSF and serum [facility] Work Phone: Comment on above: Once for 1 Occurrences starting 02/04/20 until 02/04/2024 End: 07-11-2024 Phosphate [Mass/volume] in Serum or Plasma Phosphorus Lab Routine Lupus nephritis ([facility]) 1 Occurrences starting 07/12/2023 until 07/11/2024 [employer] Comment on above: 1 Occurrences starting 07/12/2023 until 07/11/2024 End: 07-11-2024 Protein creat ratio Protein creat ratio Lab Routine Lupus nephritis ([facility]) 1 Occurrences starting 07/12/2023 until 07/11/2024 [employer] Comment on above: 1 Occurrences starting 07/12/2023 until 07/11/2024 End: 08-01-2024 Respiratory allergy panel Respiratory allergy panel Lab Routine Environmental allergies 1 Occurrences starting 08/02/2023 until 08/01/2024 [facility] Work Phone: Comment on above: 1 Occurrences starting 08/02/2023 until 08/01/2024 End: 07-11-2024 Urinalysis Urinalysis Lab Routine Lupus nephritis ([facility]) 1 Occurrences starting 07/12/2023 until 07/11/2024 [facility] Comment on above: 1 Occurrences starting 07/12/2023 until 07/11/2024 Immunizations Immunization Date Immunization Notes Care Provider Jany astorga 02-19-2024 influenza virus vaccine, unspecified formulation CYNTHIA GALLARDO [facility] 02-08-2023 Influenza, injectabl e, Madin Aniwa Canine Kidney, preservative free, quadrivalent [facility] 02-08-2023 Pneumococcal Conjuga te 20-valent [facility] 02-08-2023 influenza virus vaccine, unspecified formulation Sherman Calle MD Work Phone: [facility] 03-23-2020 influenza virus vaccine, unspecified formulation [facility] 03-23-2020 influenza, injectabl e, quadrivalent, preservative free Dee Dee Hernandez RN [facility] 03-23-2020 tetanus toxoid, redu martha diphtheria toxoid, and acellular pertussis vaccine, adsorbed [facility] 04-02-2019 tetanus toxoid, redu martha diphtheria toxoid, and acellular pertussis vaccine, adsorbed [facility] 02-26-2019 influenza virus vaccine, unspecified formulation [facility] 02-26-2019 influenza, injectabl e, quadrivalent, preservative free Dee Dee Hernandez RN [facility] 03-03-2010 influenza virus vaccine, unspecified formulation [facility] 03-03-2010 influenza, seasonal, injectable Dee Dee Hernandez RN [facility] 07-27-2009 HPV, unspecified formulation [facility] 07-27-2009 human papilloma viru s vaccine, quadrivalent Dee Dee Hernandez RN [facility] 03-29-2009 HPV, unspecified formulation [facility] 03-29-2009 human papilloma viru s vaccine, quadrivalent Dee Dee Hernandez RN [facility] 02-24-2009 influenza virus vaccine, live, attenuated, for intranasal use Dee Dee Hernandez RN [facility] 01-20-2009 HPV, unspecified formulation [facility] 01-20-2009 human papilloma viru s vaccine, quadrivalent Dee Dee Hernandez RN [facility] 01-20-2009 meningococcal ACWY vaccine, unspecified formulation [facility] [employer] 01-20-2009 meningococcal polysaccharide (groups A, C, Y and W-135) diphtheria toxoid conjugate vaccine (MCV4P) Dee Dee Hernandez RN [facility] 01-20-2009 tetanus toxoid, redu martha diphtheria toxoid, and acellular pertussis vaccine, adsorbed [facility] 05-18-2008 influenza virus vaccine, unspecified formulation [facility] 05-18-2008 influenza, seasonal, injectable, preservative free Dee Dee Hernandez RN [facility] 05-26-2004 measles, mumps and rubella virus vaccine [facility] 04-03-2003 influenza virus vaccine, unspecified formulation [facility] 04-03-2003 influenza, seasonal, injectable Dee Dee Hernandez RN [facility] 08-28-1996 diphtheria, tetanus toxoids and acellular pertussis vaccine, unspecified formulation Dee Dee Hernandez RN [facility] 08-28-1996 DTaP, unspecified formulation [facility] 08-28-1996 poliovirus vaccine, unspecified formulation Dee Dee Hernandez RN [facility] 05-17-1995 hepatitis B vaccine, pediatric or pediatric/adolescent dosage [facility] 12-19-1994 hepatitis B vaccine, pediatric or pediatric/adolescent dosage [facility] 11-10-1994 hepatitis B vaccine, pediatric or pediatric/adolescent dosage [facility] 07-28-1993 diphtheria, tetanus toxoids and acellular pertussis vaccine, unspecified formulation Dee Dee Hernandez RN [facility] 07-28-1993 DTaP, unspecified formulation [facility] 07-28-1993 poliovirus vaccine, unspecified formulation Dee Dee Hernandez RN [facility] 02-10-1993 haemophilus influenz ae type b vaccine, conjugate unspecified formulation Dee Dee Hernandez RN [facility] 02-10-1993 Hib, unspecified formulation [facility] 02-10-1993 measles, mumps and rubella virus vaccine [facility] 05-07-1992 diphtheria, tetanus toxoids and acellular pertussis vaccine, unspecified formulation Dee Dee Hernandez RN [facility] 05-07-1992 DTaP, unspecified formulation [facility] 05-07-1992 haemophilus influenz ae type b vaccine, conjugate unspecified formulation Dee Dee Hernandez RN [facility] 05-07-1992 Hib, unspecified formulation [facility] 03-05-1992 diphtheria, tetanus toxoids and acellular pertussis vaccine, unspecified formulation Dee Dee Hernandez RN [facility] 03-05-1992 DTaP, unspecified formulation [facility] 03-05-1992 haemophilus influenz ae type b vaccine, conjugate unspecified formulation Dee Dee Hernandez RN [facility] 03-05-1992 Hib, unspecified formulation [facility] 03-05-1992 poliovirus vaccine, unspecified formulation Dee Dee Hernandez RN [facility] 01-07-1992 diphtheria, tetanus toxoids and acellular pertussis vaccine, unspecified formulation Dee Dee Hernandez RN [facility] 01-07-1992 DTaP, unspecified formulation [facility] 01-07-1992 haemophilus influenz ae type b vaccine, conjugate unspecified formulation Dee Dee Hernandez RN [facility] 01-07-1992 Hib, unspecified formulation Katrin Resend[facility] 01-07-1992 poliovirus vaccine, unspecified formulation Dee Dee Hernandez RN [facility] NEGATED: Highlighted row has not occurred!06-26-2022 influenza virus vaccine, unspecified formulation Miki Mauricio [facility] NEGATED: Highlighted row has not occurred!06-26-2022 SARS-CoV-2 mRNA (tozinameran 5y-11y) vaccine Miki Mauricio [facility] NEGATED: Highlighted row has not occurred!02-16-2022 influenza virus vaccine, unspecified formulation [facility] Payers Date Payer Category Payer Self-pay 2022 Medicaid [facility] [id number] 2014 Medicaid [id number] 2014 Private Health Insurance [facility]ICA[facility] [id number] 2014 Unknown [id number] 1991 Unknown [id number] 2.16.840.1.051810.3.579.2. 593 1991 Unknown [id number] 2.16.840.1.866565.3.579.2. 593 1991 Unknown [id number] 2.16.840.1.759203.3.579.2. 356 1991 Unknown [id number] 2.16.840.1.935925.3.579.2. 1286 1991 Unknown [id number] 2.16.840.1.511935.3.579.2. 1286 1991 Unknown [id number] 2.16.840.1.048341.3.579.2. 1286 1991 Unknown [id number] 2.16.840.1.232754.3.579.2. 1285 1991 Unknown [id number] 2.16.840.1.618414.3.579.2. 1285 1991 Unknown [id number] 2.16.840.1.019228.3.579.2. 1285 1991 Unknown [id number] 2.16.840.1.622085.3.579.2. 1285 1991 Unknown [id number] 2.16.840.1.735615.3.579.2. 1285 1991 Unknown [id number] 2.16.840.1.876303.3.579.2. 1243 1991 Unknown [id number] 2.16.840.1.764404.3.579.2. 1285 1991 Unknown [id number] 2..840.1.602271.3.579.2. 1285 1991 Unknown [id number] 2.840.1.765876.3.579.2. 1285 1991 Unknown [id number] 2..840.1.408178.3.579.2. 1285 1991 Unknown [id number] 2.16.840.1.631325.3.579.2. 1285 1991 Unknown [id number] 2.16.840.1.826859.3.579.2. 1285 1991 Unknown [id number] 2.16.840.1.110953.3.579.2. 1285 1991 Unknown [id number] 2.16.840.1.917576.3.579.2. 1285 1991 Unknown [id number] 2.16.840.1.309449.3.579.2. 1285 1991 Unknown [id number] 2.16.840.1.517693.3.579.2. 1285 1991 Unknown [id number] 2.16.840.1.593148.3.579.2. 1285 1991 Unknown [id number] 2.16.840.1.449594.3.579.2. 1285 1991 Unknown [id number] 2.16.840.1.634234.3.579.2. 1285 1991 Unknown [id number] 2..840.1.603167.3.579.2. 1285 1991 Unknown [id number] 2.16.840.1.062576.3.579.2. 1285 1991 Unknown [id number] 2..840.1.641070.3.579.2. 1285 1991 Unknown [id number] 2.840.1.290271.3.579.2. 1285 1991 Unknown [id number] 2..1.273321.3.579.2. 1285 1991 Unknown [id number] 2.840.1.243870.3.579.2. 1285 1991 Unknown [id number] 2.840.1.519485.3.579.2. 1285 1991 Unknown [id number] 2.840.1.102421.3.579.2. 1285 1991 Unknown [id number] 2.0.1.689895.3.579.2. 1285 1991 Unknown [id number] 2.840.1.612591.3.579.2. 1285 1991 Unknown [id number] 2.840.1.364694.3.579.2. 1285 1991 Unknown [id number] 2..840.1.154225.3.579.2. 1285 1991 Unknown [id number] 2.840.1.151225.3.579.2. 1285 1991 Unknown [id number] 2.16.840.1.573165.3.579.2. 1285 1991 Unknown [id number] 2.16.840.1.419123.3.579.2. 1285 1991 Unknown [id number] 2.16.840.1.081963.3.579.2. 1285 1991 Unknown [id number] 2.16.840.1.861098.3.579.2. 1285 1991 Unknown [id number] 2.16.840.1.299428.3.579.2. 1285 1991 Unknown [id number] 2..840.1.118669.3.579.2. 1285 1991 Unknown [id number] 2.16.840.1.503266.3.579.2. 1285 1991 Unknown [id number] 2.840.1.307390.3.579.2. 1285 1991 Unknown [id number] 2..840.1.687678.3.579.2. 1285 1991 Unknown [id number] 2.840.1.379542.3.579.2. 1285 1991 Unknown [id number] 2.16.840.1.877279.3.579.2. 1285 1991 Unknown [id number] 2..840.1.373149.3.579.2. 1285 1991 Unknown [id number] 2..840.1.977827.3.579.2. 1285 1991 Unknown [id number] 2.16.840.1.402206.3.579.2. 1285 1991 Unknown [id number] 2.16.840.1.753773.3.579.2. 1285 1991 Unknown [id number] 2.16.840.1.306881.3.579.2. 1285 1991 Unknown [id number] 2.16.840.1.445353.3.579.2. 1285 1991 Unknown [id number] 2.16.840.1.049600.3.579.2. 1285 1991 Unknown [id number] 2.16.840.1.521909.3.579.2. 1285 1991 Unknown [id number] 2.16.840.1.442065.3.579.2. 1285 1991 Unknown [id number] 2.16.840.1.618192.3.579.2. 1285 1991 Unknown [id number] 2.16.840.1.593965.3.579.2. 1285 1991 Unknown [id number] 2.16.840.1.545947.3.579.2. 1285 1991 Unknown [id number] 2.16.840.1.609454.3.579.2. 1285 1991 Unknown [id number] 2.16.840.1.879882.3.579.2. 1285 1991 Unknown [id number] 2.16.840.1.326068.3.579.2. 1285 1991 Unknown [id number] 2.16.840.1.323229.3.579.2. 1285 1991 Unknown [id number] 2.16.840.1.593397.3.579.2. 1285 1991 Unknown [id number] 2.16.840.1.730393.3.579.2. 1285 1991 Unknown [id number] 2.16.840.1.913130.3.579.2. 1285 1991 Unknown [id number] 2.16.840.1.112723.3.579.2. 1285 1991 Unknown [id number] 2.16.840.1.350256.3.579.2. 1285 1991 Unknown [id number] 2.16.840.1.838730.3.579.2. 1285 1991 Unknown [id number] 2.16.840.1.976121.3.579.2. 1285 1991 Unknown [id number] 2.16.840.1.928033.3.579.2. 1285 1991 Unknown [id number] 2.16.840.1.021868.3.579.2. 1285 1991 Unknown [id number] 2.16.840.1.913366.3.579.2. 1285 1991 Unknown [id number] 2.16.840.1.838738.3.579.2. 1285 1991 Unknown [id number] 2.16.840.1.171473.3.579.2. 1285 1991 Unknown [id number] 2.16.840.1.567921.3.579.2. 1285 1991 Unknown [id number] 2.16.840.1.525264.3.579.2. 1258 1991 Unknown [id number] 2.16.840.1.518378.3.579.2. 1258 1991 Unknown [id number] 2.16.840.1.671605.3.579.2. 1258 1991 Unknown [id number] 2.16.840.1.973492.3.579.2. 1258 1991 Unknown [id number] 2.16.840.1.585612.3.579.2. 1258 1991 Unknown [id number] 2.16.840.1.575176.3.579.2. 1258 1991 Unknown [id number] 2.16.840.1.341479.3.579.2. 1258 1991 Unknown [id number] 2.16.840.1.393003.3.579.2. 1258 1991 Unknown [id number] 2.16.840.1.630768.3.579.2. 1259 1991 Unknown [id number] 2.16.840.1.611274.3.579.2. 9 1991 Unknown [id number] 2.16.840.1.563151.3.579.2. 9 1991 Unknown [id number] 2.16.840.1.844584.3.579.2. 9 1991 Unknown [id number] 2.16.840.1.277162.3.579.2. 727 1991 Unknown [id number] 2.16.840.1.080699.3.579.2. 727 1991 Unknown [id number] 2.16.840.1.568936.3.579.2. 727 1959 Unknown [id number] Social History Date Type Detail Facility Start: 02-16-2022 End: 12-03-2023 Tobacco smoking status Ex-smoker (finding) [facility] Start: 12-18-2022 End: 12-24-2023 Sex Assigned At Female [facility] Tobacco smoking status Never [facility] End: 04-30-2020 History of tobacco use Current smoker [facility] End: 04-30-2020 History of tobacco use Cigarette Smoker [facility] Start: 04-10-2022 End: 08-02-2023 Tobacco use and exposure Smokeless tobacco non-user [facility] Start: 04-19-2023 End: 04-28-2024 Alcohol intake Ex-drinker (finding) [facility] Start: 12-18-2022 End: 12-24-2023 History of Social function [facility] Do you belong to any clubs or organizations such as scientology groups, unions, fraternal or athletic groups, or school groups? Yes [facility] Are you now , , , , never or living with a partner? Never [facility] How often to you hav e a drink containing alcohol? Never [facility] How many standard dr inks containing alcohol do you have on a typical day? 1 or 2 [facility] Do you feel stress - tense, restless, nervous, or anxious, or unable to sleep at night because your mind is troubled all the time - these days [OSQ] Only a little [facility] Start: 1991 Sex Assigned At Not on file [facility] Has the [facility], or [facility] threatened to shut off services in your home in past 12Mo No [facility] Start: 1991 Sex Assigned At Female [facility] How often to you hav e a drink containing alcohol? 2-4 times a month [facility] Start: 12-03-2014 Sex Female (finding) [facility] Start: 12-03-2023 Tobacco use and exposure Former smokeless tobacco user [facility] Start: 02-07-2024 End: 05-13-2024 Alcoholic beverage intake Lifetime non-drinker (finding) [facility] Start: 02-25-2023 Sexual orientation Heterosexual (finding) [facility] Goals Date Patient Goal Desired Activity /State Personal health goal Comment on above: Formatting of this n ote might be different from the original. Evaluation of progress towards goal: self care, family support Personal health goal Comment on above: Formatting of this n ote might be different from the original. Evaluation of progress towards goal: under assessment Functional Status Date Assessment Result Facility 05-19-2024 Functional Status N/A [facility] 08-23-2023 Functional Status N/A [facility] 09-05-2022 Functional Status N/A [facility] 08-10-2022 Functional Status N/A [facility] 07-17-2022 Functional Status N/A [facility] 02-16-2022 Functional Status N/A [facility] Clinical Notes 10-29-2019 to 05-19-2024 Deedee Platt LPN - 05/13/2024 1:20 PM ESTTelephone Encounter - Sveta Sinha CMA - 04/29/2024 8:12 AM ESTTelephone Encounter - Sveta Sinha, [facility] - 04/29/2024 8:12 AM ESTDischarge Instructions Note Date & Type Note Facility 05-19-2024 Hospital Discharge instructions Patient Education 05/19/2024 15:57:44 Antibiotic Medicine, Adult Antibiotic Medicine, Adult Antibiotic medicines are used to treat infections caused by bacteria. These medicines do not work for illnesses caused by viruses. Antibiotics work by killing the bacteria that are making you sick, but they can also have serious side effects. Antibiotics must be used safely and only when needed. When do I need to take antibiotics? You may need antibiotics for: A urinary tract infection (UTI). Strep throat. Bacterial sinus infection. Meningitis. Serious lung infections. Your health care provider may start you on antibiotics while you are waiting for test results. Tests may include a culture of the throat, urine, blood, or mucus. Your health care provider may change or stop your antibiotic depending on your test results. When are antibiotics not needed? You do not need antibiotics for most common illnesses. These illnesses may be caused by a virus, not by bacteria. You do not need antibiotics for: The common cold. The flu (influenza). Sore throat. Discolored mucus. Bronchitis. Antibiotics are not always needed for all infections caused by bacteria. Many of these infections clear up on their own. Do not take antibiotics when they are not needed. How long should I take my antibiotic? You must take the entire amount prescribed to you. Take your antibiotics as told by your health care provider. Do not stop taking your antibiotics even if you start to feel better. If you stop taking them too soon: You may feel sick again. Your infection may get harder to treat. Each course of antibiotics needs a different length of time to work. The length of time may vary from a few days to a few weeks. What if I miss a dose? Try not to miss any doses of medicine. If you miss a dose, call your health care provider or pharmacist for help. Sometimes, it is okay to take the missed dose as soon as possible. Do not take double or extra doses. What are the risks of taking antibiotics? Antibiotics can cause: Allergic reactions. Nausea. Yeast infections. Liver problems. Antibiotics can also cause an infection called Clostridioides difficile (C. difficile or C. diff), which causes severe diarrhea. This infection happens when the antibiotics kill the healthy bacteria in your intestines. This allows C. diff to grow. C. diff needs to be treated right away. Let your health care provider know if: You have diarrhea while taking an antibiotic. You have diarrhea after you stop taking an antibiotic. C. diff infection can start weeks after stopping the antibiotic. Taking an antibiotic also puts you at risk for getting sick in the future with bacteria that do not respond to medicine (antibiotic-resistant infection). Antibiotics can cause bacteria to change so that if the antibiotic is taken again, the medicine cannot kill the bacteria. These infections can be more serious because they are hard, or sometimes impossible, to treat. Do antibiotics affect control? control pills may not work while you are taking antibiotics. If you are taking control pills: Keep taking them as usual. Use a second form of control, such as a condom, to avoid unwanted . Do this for as long as told by your health care provider. What else should I know about taking antibiotics? Take antibiotics exactly as told. Take the correct amount of medicine at the same time each day. Ask your health care provider: ?How long to wait between doses. ?If you should take your antibiotic with food or water. ?If you should avoid certain foods, drinks, or medicines while taking your antibiotics. ?If you need to watch for any side effects. Use only the antibiotics prescribed to you by your health care provider. Do not use antibiotics prescribed for someone else. Drink a large glass of water when taking your antibiotics unless told otherwise. Drink enough fluid to keep your urine pale yellow. Ask your pharmacist for a dosage syringe, cup, or spoon that correctly measures your antibiotics. Ask your pharmacist or health care provider how to safely get rid of leftover medicine. Follow these instructions at home: Take your antibiotics as told by your health care provider. Do not stop taking your antibiotics even if you start to feel better. Return to your normal activities as told by your health care provider. Ask your health care provider what activities are safe for you. Contact a health care provider if: Your symptoms get worse. You have new joint pain or muscle aches that begin after starting your antibiotic. You have side effects from your antibiotic, such as: ?Stomach pain. ?Diarrhea. ?Nausea. ?White patches in your mouth or throat. Get help right away if: You have signs of a severe allergic reaction to antibiotics. If you have any of these signs, stop taking the antibiotic right away. Signs may include: ?Raised, itchy, red bumps on your skin (hives). ?Skin rash. ?Trouble breathing. ?High-pitched whistling sounds when you breathe, most often when you breathe out (wheezing). ?Swelling anywhere on your body. ?Feeling dizzy. ?Vomiting. You have signs of liver problems, such as: ?Dark or blood-colored urine. ?Yellow color to your skin. ?Bruising or bleeding easily. You have severe diarrhea, bloody diarrhea, or stomach cramps. You have a severe headache. These symptoms may be an emergency. Get help right away. Call 911. Do not wait to see if the symptoms will go away. Do not drive yourself to the hospital. This information is not intended to replace advice given to you by your health care provider. Make sure you discuss any questions you have with your health care provider. Document Revised: 11/14/2022 Document Reviewed: 11/14/2022 [employer] Patient Education 2023 [employer]. Follow Up Care 05/12/2024 09:48:47 With:PAULINA JOY, CYNTHIA Haywood, URL Address: [address] [place] [address]. [place] [address] When:Within 1 Year(s) [facility] 05-19-2024 Note Patient Education Caregiving Antibiotic Medicine, Adult Antibiotic medicines are used to treat infections caused by bacteria. These medicines do not work for illnesses caused by viruses. Antibiotics work by killing the bacteria that are making you sick, but they can also have serious side effects. Antibiotics must be used safely and only when needed. When do I need to take antibiotics? You may need antibiotics for: ??? A urinary tract infection (UTI). ??? Strep throat. ??? Bacterial sinus infection. ??? Meningitis. ??? Serious lung infections. Your health care provider may start you on antibiotics while you are waiting for test results. Tests may include a culture of the throat, urine, blood, or mucus. Your health care provider may change or stop your antibiotic depending on your test results. When are antibiotics not needed? You do not need antibiotics for most common illnesses. These illnesses may be caused by a virus, not by bacteria. You do not need antibiotics for: ??? The common cold. ??? The flu (influenza). ??? Sore throat. ??? Discolored mucus. ??? Bronchitis. Antibiotics are not always needed for all infections caused by bacteria. Many of these infections clear up on their own. Do not take antibiotics when they are not needed. How long should I take my antibiotic? You must take the entire amount prescribed to you. Take your antibiotics as told by your health care provider. Do not stop taking your antibiotics even if you start to feel better. If you stop taking them too soon: ??? You may feel sick again. ??? Your infection may get harder to treat. Each course of antibiotics needs a different length of time to work. The length of time may vary from a few days to a few weeks. What if I miss a dose? Try not to miss any doses of medicine. If you miss a dose, call your health care provider or pharmacist for help. Sometimes, it is okay to take the missed dose as soon as possible. Do not take double or extra doses. What are the risks of taking antibiotics? Antibiotics can cause: ??? Allergic reactions. ??? Nausea. ??? Yeast infections. ??? Liver problems. Antibiotics can also cause an infection called Clostridioides difficile (C. difficile or C. diff), which causes severe diarrhea. This infection happens when the antibiotics kill the healthy bacteria in your intestines. This allows C. diff to grow. C. diff needs to be treated right away. Let your health care provider know if: ??? You have diarrhea while taking an antibiotic. ??? You have diarrhea after you stop taking an antibiotic. C. diff infection can start weeks after stopping the antibiotic. Taking an antibiotic also puts you at risk for getting sick in the future with bacteria that do not respond to medicine (antibiotic-resistant infection). Antibiotics can cause bacteria to change so that if the antibiotic is taken again, the medicine cannot kill the bacteria. These infections can be more serious because they are hard, or sometimes impossible, to treat. Do antibiotics affect control? control pills may not work while you are taking antibiotics. If you are taking control pills: ??? Keep taking them as usual. ??? Use a second form of control, such as a condom, to avoid unwanted . Do this for as long as told by your health care provider. What else should I know about taking antibiotics? Take antibiotics exactly as told. ??? Take the correct amount of medicine at the same time each day. ??? Ask your health care provider: ? How long to wait between doses. ? If you should take your antibiotic with food or water. ? If you should avoid certain foods, drinks, or medicines while taking your antibiotics. ? If you need to watch for any side effects. ??? Use only the antibiotics prescribed to you by your health care provider. Do not use antibiotics prescribed for someone else. ??? Drink a large glass of water when taking your antibiotics unless told otherwise. Drink enough fluid to keep your urine pale yellow. ??? Ask your pharmacist for a dosage syringe, cup, or spoon that correctly measures your antibiotics. ??? Ask your pharmacist or health care provider how to safely get rid of leftover medicine. Follow these instructions at home: ??? Take your antibiotics as told by your health care provider. Do not stop taking your antibiotics even if you start to feel better. ??? Return to your normal activities as told by your health care provider. Ask your health care provider what activities are safe for you. Contact a health care provider if: ??? Your symptoms get worse. ??? You have new joint pain or muscle aches that begin after starting your antibiotic. ??? You have side effects from your antibiotic, such as: ? Stomach pain. ? Diarrhea. ? Nausea. ? White patches in your mouth or throat. Get help right away if: ??? You have sig (more content not included)... [facility] 05-13-2024 History of Present illness Narrative Reason for Appointment: Patient ID: Blanca Rudolph is a 33 y.o. female who presents for discuss surgery Patient presents today for Acute Visit. MEDICATIONS Current Outpatient Medications Medication Instructions acetaminophen (TYLENOL) 500 mg, Oral, Every 6 hours PRN albuterol HFA 90 mcg/act inhaler inhale 2 puffs by mouth and INTO THE LUNGS every 4 hours if needed allopurinol (ZYLOPRIM) 100 mg, Oral, Daily amitriptyline (ELAVIL) 50 mg, Oral, Nightly amoxicillin-clavulanate (Augmentin) 875-125 MG tablet 875 mg, Oral, 2 times daily aspirin 81 mg, Oral, Daily RT bumetanide (BUMEX) 2 mg, Oral, 2 times daily carvedilol (COREG) 6.25 mg, Oral, 2 times daily cetirizine (ZyrTEC) 10 MG tablet cholecalciferol (VITAMIN D-3) 50,000 Units, Oral, Weekly cyanocobalamin (VITAMIN B-12) 1,000 mcg, Oral, Daily RT Descovy 200-25 MG tablet 1 tablet, Oral, Every morning dicyclomine (BENTYL) 10 mg, Oral, 4 times daily ergocalciferol (Vitamin D2) 1.25 MG (52744 UT) capsule etonogestrel-eluting (Nexplanon) 68 mg contraceptive implant Nexplanon famotidine (PEPCID) 20 mg, Oral, Daily RT FeroSul 325 (65 Fe) MG tablet fluocinonide (Lidex) 0.05 % external solution ketoconazole (NIZOral) 2 % shampoo 1 Application, Topical, 2 times weekly Lupkynis 7.9 mg, Oral, 2 times daily MAGnesium-Oxide 400 (240 Mg) MG tablet medroxyPROGESTERone (PROVERA) 10 mg, Oral, Daily Multiple Vitamin (Multi-Vitamin) tablet 1 tablet, Oral, Daily RT mycophenolate (CELLCEPT) 1,000 mg, Oral, 2 times daily ondansetron ODT (Zofran-ODT) 4 MG disintegrating tablet dissolve 1 tablet ON TONGUE every 8 hours if needed for nausea potassium chloride CR (Klor-Con M20) 20 MEQ ER tablet 20 mEq, Oral, 2 times daily predniSONE (DELTASONE) 15 mg, Oral, Daily rizatriptan (MAXALT) 10 mg, Oral, Once as needed Xarelto 20 MG tablet 1 tablet, Oral, Daily ALLERGIES Allergies Allergen Reactions Cephalexin Other Reaction(s): arms and legs hurt Garlic Ibuprofen Other Reaction(s): medication interference Other Reaction(s): not good for her Sulfamethoxazole-Trimethoprim Rash ??? pt says she gets 'heat rash' often. however developed 'worse' rash than usual shortly after taking bactrim. has taken previously with NO reaction. Other Reaction(s): doesn't work for her PROBLEMS Active Ambulatory Problems Diagnosis Date Noted Menorrhagia 12/06/2022 Pulmonary embolism (CMS/HCC) 12/06/2022 Low grade squamous intraepithelial lesion (LGSIL) on cervicovaginal cytologic smear 12/06/2022 Cyst of Bartholin's gland duct 12/06/2022 Pelvic pain in female 07/09/2023 Resolved Ambulatory Problems Diagnosis Date Noted No Resolved Ambulatory Problems Past Medical History: Diagnosis Date Bartholin cyst Bilateral pulmonary embolism (CMS/HCC) BMI 45.0-49.9, adult (CMS/HCC) Deep vein thrombosis (CMS/HCC) Encounter for gynecological examination (general) (routine) with abnormal findings Follow-up exam History of transfusion Hypertension (CMS/HCC) Low grade squamous intraepithelial lesion on cytologic smear of cervix (LGSIL) Lupus Ovarian cyst HISTORY PAST MEDICAL HISTORY SOCIAL HISTORY Past Medical History: Diagnosis Date Bartholin cyst Bilateral pulmonary embolism (CMS/HCC) BMI 45.0-49.9, adult (CMS/HCC) Deep vein thrombosis (CMS/HCC) Encounter for gynecological examination (general) (routine) with abnormal findings Follow-up exam History of transfusion Hypertension (CMS/HCC) Low grade squamous intraepithelial lesion on cytologic smear of cervix (LGSIL) Lupus Menorrhagia Ovarian cyst Social History Tobacco Use Smoking status: Former Types: Cigarettes Smokeless tobacco: Former Vaping Use Vaping status: Never Used Substance Use Topics Alcohol use: Never Drug use: Yes Types: Marijuana Comment: daily user FAMILY HISTORY Family History Problem Relation Name Age of Onset Hypertension Mother Shaila Rudolph Asthma Mother Shaila Rudolph Stroke Mother Shaila Rudolph Congenital heart disease Son congenital heart defect SURGICAL HISTORY Past Surgical History: Procedure Laterality Date SECTION, LOW TRANSVERSE CT ANGIO HEAD 02/01/2024 CT ANGIO HEAD 02/01/2024 CT ANGIOGRAM HEART CORONARY 07/26/2020 CT ANGIOGRAM TAVR 07/26/2020 CT ANGIOGRAM HEART CORONARY 04/11/2020 CT ANGIOGRAM TAVR 04/11/2020 CT ANGIOGRAM HEART CORONARY 11/30/2019 CT ANGIOGRAM TAVR 11/30/2019 CT ANGIOGRAM HEART CORONARY 11/07/2019 CT ANGIOGRAM TAVR 11/07/2019 CT ANGIOGRAM HEART CORONARY 04/07/2019 CT ANGIOGRAM TAVR 04/07/2019 CT ANGIOGRAM HEART CORONARY 06/20/2023 CT ANGIOGRAM HEART CORONARY 06/20/2023 CT GUIDED PERCUTANEOUS BIOPSY RENAL RIGHT Right 11/27/2022 CT GUIDED PERCUTANEOUS BIOPSY RENAL RIGHT 11/27/2022 CT GUIDED TRANSVAGINAL TRANSRECTAL FLUID DRAIN 01/31/2024 CT GUIDED TRANSVAGINAL TRANSRECTAL FLUID DRAIN 01/31/2024 IR LUMBAR PUNCTURE 02/05/2024 IR LUMBAR PUNCTURE 02/05/2024 MR ANGIOGRAM HEAD WO IV CONTRAST 02/03/2024 MR ANGIOGRAM HEAD WO IV CONTRAST 02/03/2024 TUBAL LIGATION REVIEW OF SYSTEMS Review of Systems: Review of Systems Constitutional: Negative. HENT: Negative. Eyes: Negative. Respiratory: Negative. Cardiovascular: Negative. Gastrointestinal: Negative. Genitourinary: Positive for dyspareunia, menstrual problem and pelvic pain. Musculoskeletal: Negative. Skin: Negative. Neurological: Negative. All other systems reviewed and are negative. Hematological: Negative. Endocrine: Negative. Allergic/Immunologic: Negative. OBJECTIVE Objective: Physical Exam Constitutional: Appearance: Normal appearance. She is well-developed. Cardiovascular: Rate and Rhythm: Normal rate and regular rhythm. Pulmonary: Effort: Pulmonary effort is normal. Breath sounds: Normal breath sounds. Abdominal: General: Bowel sounds are normal. There is no distension. Palpations: Abdomen is soft. Tenderness: There is no abdominal tenderness. There is no guarding or rebound. Musculoskeletal: General: No swelling. Normal range of motion. Right lower leg: No edema. Left lower leg: No edema. Neurological: Mental Status: She is alert and oriented to person, place, and time. Skin: General: Skin is warm and dry. Psychiatric: Mood and Affect: Mood normal. Behavior: Behavior normal. Vitals and nursing note reviewed. Exam conducted with a licensed psychologist director present. Vitals: Estimated body mass index is 42.85 kg/m as calculated from the following: Height as of 12/24/23: 5' 8 . Weight as of this encounter: 281 lb 12.8 oz. BP: 116/76 No LMP recorded. Patient has had an implant. ASSESSMENT & PLAN ICD-10-CM 1. Encounter to discuss procedure Z71.89 2. Pelvic pain in female R10.2 3. H/O: section Z98.891 4. Abnormal uterine bleeding (AUB) N93.9 Pt presents with complaints of pelvic pain, AUB and h/o 3 sections. Pt has IUD currently. All concerns addressed with pt in detail Pt desires surgical management. Pt to be scheduled for D&C hysteroscopy with possible myosure with dx lap with poss BHAVIK poss FOE poss BSO, with IUD removal. Pt considering future hysterectomy if symptoms persist after surgery. Pt to return for preop exam. Reviewed ultrasound with pt in detail. Documented by Deedee Platt LPN on behalf of: Mayco Albright DO documented in this encounter [facility] 04-29-2024 Miscellaneous Notes Patient called and would like to know if she could have a refill or new order of Voclosporin 7.9 mg capsule because she is about to be out of this medication? Please advise documented in this encounter [facility] 04-29-2024 Telephone encounter Note Patient called and would like to know if she could have a refill or new order of Voclosporin 7.9 mg capsule because she is about to be out of this medication? Please advise [facility] 04-14-2024 History of Present illness Narrative Reason for Appointment: Patient ID: Blanca Rudolph is a 33 y.o. female who presents for No chief complaint on file. Patient presents today via telephone call for a telehealth appointment. Patients Phone #: [phone] (mobile) Current Medications: has a current medication list which includes the following prescription(s): acetaminophen, albuterol hfa, allopurinol, amitriptyline, amoxicillin-clavulanate, aspirin, bumetanide, carvedilol, cetirizine, cholecalciferol, cyanocobalamin, descovy, dicyclomine, ergocalciferol, nexplanon, famotidine, ferosul, fluocinonide, ketoconazole, lupkynis, magnesium-oxide, medroxyprogesterone, multi-vitamin, mycophenolate, ondansetron odt, potassium chloride cr, prednisone, rizatriptan, and xarelto, and the following Facility-Administered Medications: etonogestrel-eluting and levonorgestrel. Medical History: Active Ambulatory Problems Diagnosis Date Noted Menorrhagia 12/06/2022 Pulmonary embolism (CMS/HCC) 12/06/2022 Low grade squamous intraepithelial lesion (LGSIL) on cervicovaginal cytologic smear 12/06/2022 Cyst of Bartholin's gland duct 12/06/2022 Pelvic pain in female 07/09/2023 Resolved Ambulatory Problems Diagnosis Date Noted No Resolved Ambulatory Problems Past Medical History: Diagnosis Date Bartholin cyst Bilateral pulmonary embolism (CMS/HCC) BMI 45.0-49.9, adult (CMS/HCC) Deep vein thrombosis (CMS/HCC) Encounter for gynecological examination (general) (routine) with abnormal findings Follow-up exam History of transfusion Hypertension (CMS/HCC) Low grade squamous intraepithelial lesion on cytologic smear of cervix (LGSIL) Lupus Ovarian cyst Family History Problem Relation Name Age of Onset Hypertension Mother Shaila Rudolph Asthma Mother Shaila Rudolph Stroke Mother Shaila Rudolph Congenital heart disease Son congenital heart defect Social History Tobacco Use Smoking status: Former Types: Cigarettes Smokeless tobacco: Former Vaping Use Vaping status: Never Used Substance Use Topics Alcohol use: Never Drug use: Yes Types: Marijuana Comment: daily user Past Surgical History: Procedure Laterality Date SECTION, LOW TRANSVERSE CT ANGIO HEAD 02/01/2024 CT ANGIO HEAD 02/01/2024 CT ANGIOGRAM HEART CORONARY 07/26/2020 CT ANGIOGRAM TAVR 07/26/2020 CT ANGIOGRAM HEART CORONARY 04/11/2020 CT ANGIOGRAM TAVR 04/11/2020 CT ANGIOGRAM HEART CORONARY 11/30/2019 CT ANGIOGRAM TAVR 11/30/2019 CT ANGIOGRAM HEART CORONARY 11/07/2019 CT ANGIOGRAM TAVR 11/07/2019 CT ANGIOGRAM HEART CORONARY 04/07/2019 CT ANGIOGRAM TAVR 04/07/2019 CT ANGIOGRAM HEART CORONARY 06/20/2023 CT ANGIOGRAM HEART CORONARY 06/20/2023 CT GUIDED PERCUTANEOUS BIOPSY RENAL RIGHT Right 11/27/2022 CT GUIDED PERCUTANEOUS BIOPSY RENAL RIGHT 11/27/2022 CT GUIDED TRANSVAGINAL TRANSRECTAL FLUID DRAIN 01/31/2024 CT GUIDED TRANSVAGINAL TRANSRECTAL FLUID DRAIN 01/31/2024 IR LUMBAR PUNCTURE 02/05/2024 IR LUMBAR PUNCTURE 02/05/2024 MR ANGIOGRAM HEAD WO IV CONTRAST 02/03/2024 MR ANGIOGRAM HEAD WO IV CONTRAST 02/03/2024 TUBAL LIGATION Allergies Allergen Reactions Cephalexin Other Reaction(s): arms and legs hurt Garlic Ibuprofen Other Reaction(s): medication interference Other Reaction(s): not good for her Sulfamethoxazole-Trimethoprim Rash ??? pt says she gets 'heat rash' often. however developed 'worse' rash than usual shortly after taking bactrim. has taken previously with NO reaction. Other Reaction(s): doesn't work for her Vitals: Estimated body mass index is 40.29 kg/m as calculated from the following: Height as of 12/24/23: 5' 8 . Weight as of 12/24/23: 265 lb. BP: No LMP recorded. Patient has had an implant. Assessment/Plan No diagnosis found. Today's telehealth visit consisted of spending 5 minutes talking to patient on the phone.patient continues to have pelvic pain and increased menstral bleeding. Patient wishes to move forward and have hysterectomy. She states with history of lupus she wished to have surgery to help alleviate her symptoms. Patient is not a candidate for uterine ablation due to 3 previous c sections Documented by JASWANT Gudino on behalf of: JASWANT Guidno documented in this encounter [facility] 04-09-2024 History of Present illness Narrative Images from the original note were not included. [id number] [id number] Date of Service: 04/09/2024 Subjective: Blanca Rudolph is a 33 y.o. female who presents today for evaluation Lupus. Patient is seen at the request of RICKIE CHAN. This is a follow-up visit with this patient who is 33-year-old female patient presenting today as an established patient for follow-up of lupus nephritis was seen 1st time on 11/20/2022 last time the clinic was 01/17/2024 Patient illness started on with history of [...] this range since end of November 2022. Lab 08/22/2023 PCR 0.36 , was 1.13 on 07/26/2019, urinalysis large hemoglobin, 26 RBCs, 9 white BC, serum creatinine 1.34 mg/dL was [id number], , liver enzymes normal as well as CBC. Started on September 19, 2023 voclosporin 23.7 mg orally twice daily Current medications including CellCept 3 g daily as well as prednisone 5 mg daily. And voclosporin Lab test 6 08/18/2023 serum creatinine 1.7, CRP and ESR normal, urinalysis moderate hemoglobin,, PCR no proteinuria, CBC hemoglobin 10l Recent lab 2023 urine PCR normal, serum creatinine 1.44 mg/dL, complements normal, both ESR CRP normal, CBC normal Recent lab April 04, 2024 ESR, CRP normal, serum creatinine 1.88 mg/dL slightly higher than in January, CBC normal, urine PCR normal urinalysis > 720 WBCs Today April 09, 2024 patient has been doing fairly well except having urinary tract infection at this time Review of Systems: Review of Systems Constitutional: Negative. HENT: Negative. Gastrointestinal: Negative. Genitourinary: Positive for dysuria and frequency. Musculoskeletal: Negative. Skin: Negative. Current Outpatient Medications Medication Sig Dispense Refill acetaminophen (TylenoL) 325 mg tablet Take 2 tablets (650 mg total) by mouth every 6 (six) hours as needed for pain. 30 tablet 0 albuterol (PROVENTIL HFA;VENTOLIN HFA) 90 mcg/actuation inhaler Inhale 2 puffs every 6 (six) hours as needed for wheezing. 18 g 11 allopurinoL (ZYLOPRIM) 100 mg tablet Take 1 tablet (100 mg total) by mouth in the morning. aspirin 81 mg Take 1 tablet (81 mg total) by mouth in the morning. blood pressure monitor kit TAKE B/P 2-3 TIMES PER WEEK 1 each 0 bumetanide (BUMEX) 2 mg tablet Take 1 tablet (2 mg total) by mouth 2 (two) times a day. 2mg tablet AM and PM 60 tablet 5 carvediloL (COREG) 6.25 mg tablet Take 1 tablet (6.25 mg total) by mouth in the morning and 1 tablet (6.25 mg total) before bedtime. 60 tablet 11 cholecalciferol (VITAMIN D3) 50,000 units capsule Take 1 capsule (50,000 Units total) by mouth once a week. cyanocobalamin 1000 MCG tablet Take 1 tablet (1,000 mcg total) by mouth in the morning. cyclobenzaprine (FLEXERIL) 10 mg tablet Take 1 tablet (10 mg total) by mouth 2 (two) times a day as needed for muscle spasms. 10 tablet 0 DESCOVY 200-25 mg per tablet Take 1 tablet by mouth in the morning. dicyclomine (BENTYL) 10 mg capsule Take 1 capsule (10 mg total) by mouth in the morning and 1 capsule (10 mg total) at noon and 1 capsule (10 mg total) in the evening and 1 capsule (10 mg total) before bedtime. diphenhydrAMINE (BENADRYL) 25 mg capsule Take 1 capsule (25 mg total) by mouth every 6 (six) hours as needed for itching. 30 capsule 0 ergocalciferol (DRISDOL) 1,250 mcg (50,000 unit) capsule Take 1 capsule (50,000 Units total) by mouth once a week. famotidine (PEPCID) 20 mg tablet Take 1 tablet (20 mg total) by mouth in the morning. 90 tablet 3 ferrous sulfate (FERROUSUL) 325 (65 FE) mg tablet Take 1 tablet (325 mg total) by mouth daily with breakfast. 30 tablet 6 ketoconazole (NIZORAL) 2 % shampoo Apply 1 Application topically 2 (two) times a week. lidocaine (LIDODERM) 5 % Place 1 patch on the skin in the morning. Remove & Discard patch within 12 hours or as directed by MD. 30 patch 0 magnesium oxide (MAGOX) 400 mg tablet Take 1 tablet (400 mg total) by mouth in the morning and 1 tablet (400 mg total) before bedtime. MURINE EAR 6.5 % otic solution Administer 5 drops into both ears in the morning and 5 drops before bedtime. nitrofurantoin (MACRODANTIN) 50 mg capsule Take 1 capsule (50 mg total) by mouth as needed (Take 1 capsule after sexual activity to prevent UTI.). potassium chloride (KLOR-CON M 20) 20 MEQ CR tablet Take 1 tablet (20 mEq total) by mouth in the morning and 1 tablet (20 mEq total) before bedtime. 180 tablet 3 rimegepant (NURTEC ODT) 75 mg tablet,disintegrating Dissolve 1 tablet on tongue as needed (migraine). Maximum of 1 dose per 24 hours 8 tablet 5 rivaroxaban (XARELTO) 20 mg tablet tablet Take 1 tablet (20 mg total) by mouth in the morning. 90 tablet 3 amitriptyline (ELAVIL) 50 mg tablet Take 1 tablet (50 mg total) by mouth nightly. Take1 tablets (50 mg) nightly 30 tablet 5 mycophenolate (CELLCEPT) 500 mg tablet 3 tab twice daily 180 tablet 3 predniSONE (DELTASONE) 5 mg tablet 1. TAB DAILY 30 tablet 3 voclosporin 7.9 mg capsule Take 23.7 mg [...] Tender (ROSAS-28): -- Swollen (ROSAS-28): -- BP 138/84 Resp 18 Ht 172.7 cm (5' 8.01 ) Wt 127.5 kg (281 lb) BMI 42.72 kg/m : reviewed Labs and Imaging: reviewed and discussed with the patient during the visit.I Lab Results Component Value Date WBC 6.5 04/04/2024 HGB 12.0 04/04/2024 HCT 35.3 04/04/2024 MCV 92 04/04/2024 CRP 0.5 04/04/2024 C3 138 01/01/2024 C4 26 01/01/2024 GFR >60 12/07/2021 GFR >60 12/07/2021 AST 13 04/04/2024 AST 22 06/03/2023 Imaging: Assessment and Plan: Blanca Rudolph is a 33 y.o. female patient with: 1. Systemic lupus erythematosus, unspecified SLE type, unspecified organ involvement status ([facility] - mycophenolate (CELLCEPT) 500 mg tablet; 3 tab twice daily Dispense: 180 tablet; Refill: 3 - predniSONE (DELTASONE) 5 mg tablet; 1. TAB DAILY Dispense: 30 tablet; Refill: 3 2. Stage IV lupus nephritis (WHO) ([facility] - mycophenolate (CELLCEPT) 500 mg tablet; 3 tab twice daily Dispense: 180 tablet; Refill: 3 - predniSONE (DELTASONE) 5 mg tablet; 1. TAB DAILY Dispense: 30 tablet; Refill: 3 - voclosporin 7.9 mg capsule; Take 23.7 mg by mouth in the morning and 23.7 mg before bedtime. Dispense: 60 capsule; Refill: 3 - Erythrocyte Sedimentation Rate (ESR); Future - C-reactive protein; Future - Comprehensive metabolic panel; Future - CBC auto differential; Future - Urinalysis; Future - Protein creat ratio; Future 3. Fibromyalgia - amitriptyline (ELAVIL) 50 mg tablet; Take 1 tablet (50 mg total) by mouth nightly. Take1 tablets (50 mg) nightly Dispense: 30 tablet; Refill: 5 4. 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 - mycophenolate (CELLCEPT) 500 mg tablet; 3 tab twice daily Dispense: 180 tablet; Refill: 3 - Comprehensive metabolic panel; Future - CBC auto differential; Future At this point patient has been doing fairly well and tolerating voclosporin. Meanwhile her serum creatinine has increased to 1.88 mg/dL, could be because of dehydration as she is having current infection Keep patient on current medications Return to clinic 3 months with lab tests before visit lupus nephritis stage IV based on kidney [...] negative Direct Taz positive, indirect Taz negative This note was created with the assistance of a speech recognition program. While intending to generate a timely document that accurately reflects the content of the visit, no guarantee can be provided that every grammatical or spelling mistake has been or will be identified or corrected. Thank you for your understanding. [facility] Rheumatology Dr. Sherman Calle MD [address] [place] [address] Office: [phone] documented in this encounter [facility] 04-09-2024 Note 04/09/2024 Subjective Patient ID: Blanca Rudolph is a 33 y.o. female who presents for Contact with and (suspected) exposure to human immunodefici (Currently taking ATB for UTI unsure of name). HPI: This is a [id number] patient on Descovy since November 2022 presenting to [facility] for preexposure prophylaxis (PrEP) to prevent HIV infection. Patient reports tolerance and compliance to ART without missed doses and denies any side effect. Of note, the patient was found to have a RPR titer of 1:1024 on 11/22/2022 during her autoimmune work-up at [facility] for SLE and nephrotic syndrome.Patient is established with Nephrology. 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 Patient states she recently completed 7 days of Macrobid for Urinary tract infection. Patient states is sexually active in the past 2 months with a new partner. Patient states symptoms have not completely resolved. Continues to report suprapubic pain. Patient states she has reached out to OBGYN and is waiting for a call back. Within the last 3 months the patient denies any specific influenza-like illness (CLAUDIA), specifically no illness with fever, fatigue, night sweats, rash, muscle aches, headaches, sore throat, and/or swollen glands. The patient reports hx of kidney disease and she is established with Nephrology, denies known active hepatitis B infection; patient has hx of tubal ligation and currently has IUD in place since September 26, 2023. The patient reports the following risk factors [...] List Diagnosis Stage IV lupus nephritis (WHO) ([facility]) Exposure to HIV Latent syphilis Vitamin D deficiency SLE (systemic lupus erythematosus) ([facility]) Pulmonary embolism ([facility]) Positive serology for syphilis On anticoagulant therapy Nephrotic syndrome Menorrhagia with irregular cycle Low grade squamous intraepithelial lesion (LGSIL) on cervicovaginal cytologic smear Low grade squamous intraepithelial lesion (LGSIL) on cervical Pap smear History of severe pre-eclampsia History of DVT (deep vein thrombosis) Fibromyalgia 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 Delivery of by section Cyst of Bartholin's gland duct Chronic hypertension Blood loss anemia Acute kidney injury ([facility]) Abdominal pain Abdominal hematoma Microscopic hematuria Past [...] a day before meals for 30 DAYS carvedilol (Coreg) 6.25 mg tablet Take 6.25 mg by mouth with breakfast and with evening meal. cetirizine (ZyrTEC) 10 mg tablet Take 10 [...] 30 DAYS medroxyPROGESTERone (Provera) 10 mg tablet mycophenolate (Cellcept) 250 mg capsule take 6 capsules by mouth every morning then 6 capsules at bedtime NIFEdipine XL (Procardia XL) 30 mg 24 hr tablet Take 30 mg by mouth in the morning. omeprazole (PriLOSEC) 40 mg (more content not included)... [facility] 04-02-2024 History of Present illness Narrative Reason for Appointment: Patient ID: Blanca Rudolph is a 33 y.o. female who presents for IUD check Patient presents today for Acute Visit. MEDICATIONS Current Outpatient Medications Medication Instructions acetaminophen (TYLENOL) 500 mg, Oral, Every 6 hours PRN albuterol HFA 90 mcg/act inhaler inhale 2 puffs by mouth and INTO THE LUNGS every 4 hours if needed allopurinol (ZYLOPRIM) 100 mg, Oral, Daily amitriptyline (ELAVIL) 50 mg, Oral, Nightly aspirin 81 mg, Oral, Daily RT bumetanide (BUMEX) 2 mg, Oral, 2 times daily carvedilol (COREG) 6.25 mg, Oral, 2 times daily cetirizine (ZyrTEC) 10 MG tablet cholecalciferol (VITAMIN D-3) 50,000 Units, Oral, Weekly cyanocobalamin (VITAMIN B-12) 1,000 mcg, Oral, Daily RT Descovy 200-25 MG tablet 1 tablet, Oral, Every morning dicyclomine (BENTYL) 10 mg, Oral, 4 times daily ergocalciferol (Vitamin D2) 1.25 MG (67501 UT) capsule etonogestrel-eluting (Nexplanon) 68 mg contraceptive implant Nexplanon famotidine (PEPCID) 20 mg, Oral, Daily RT FeroSul 325 (65 Fe) MG tablet fluocinonide (Lidex) 0.05 % external solution ketoconazole (NIZOral) 2 % shampoo 1 Application, Topical, 2 times weekly Lupkynis 7.9 mg, Oral, 2 times daily MAGnesium-Oxide 400 (240 Mg) MG tablet medroxyPROGESTERone (PROVERA) 10 mg, Oral, Daily Multiple Vitamin (Multi-Vitamin) tablet 1 tablet, Oral, Daily RT mycophenolate (CELLCEPT) 1,000 mg, Oral, 2 times daily ondansetron ODT (Zofran-ODT) 4 MG disintegrating tablet dissolve 1 tablet ON TONGUE every 8 hours if needed for nausea potassium chloride CR (Klor-Con M20) 20 MEQ ER tablet 20 mEq, Oral, 2 times daily predniSONE (DELTASONE) 15 mg, Oral, Daily rizatriptan (MAXALT) 10 mg, Oral, Once as needed Xarelto 20 MG tablet 1 tablet, Oral, Daily ALLERGIES Allergies Allergen Reactions Cephalexin Other Reaction(s): arms and legs hurt Garlic Ibuprofen Other Reaction(s): medication interference Other Reaction(s): not good for her Sulfamethoxazole-Trimethoprim Rash ??? pt says she gets 'heat rash' often. however developed 'worse' rash than usual shortly after taking bactrim. has taken previously with NO reaction. Other Reaction(s): doesn't work for her PROBLEMS Active Ambulatory Problems Diagnosis Date Noted Menorrhagia 12/06/2022 Pulmonary embolism (CMS/HCC) 12/06/2022 Low grade squamous intraepithelial lesion (LGSIL) on cervicovaginal cytologic smear 12/06/2022 Cyst of Bartholin's gland duct 12/06/2022 Pelvic pain in female 07/09/2023 Resolved Ambulatory Problems Diagnosis Date Noted No Resolved Ambulatory Problems Past Medical History: Diagnosis Date Bartholin cyst Bilateral pulmonary embolism (CMS/HCC) BMI 45.0-49.9, adult (CMS/HCC) Deep vein thrombosis (CMS/HCC) Encounter for gynecological examination (general) (routine) with abnormal findings Follow-up exam History of transfusion Hypertension (CMS/HCC) Low grade squamous intraepithelial lesion on cytologic smear of cervix (LGSIL) Lupus Ovarian cyst HISTORY PAST MEDICAL HISTORY SOCIAL HISTORY Past Medical History: Diagnosis Date Bartholin cyst Bilateral pulmonary embolism (CMS/HCC) BMI 45.0-49.9, adult (CMS/HCC) Deep vein thrombosis (CMS/HCC) Encounter for gynecological examination (general) (routine) with abnormal findings Follow-up exam History of transfusion Hypertension (CMS/HCC) Low grade squamous intraepithelial lesion on cytologic smear of cervix (LGSIL) Lupus Menorrhagia Ovarian cyst Social History Tobacco Use Smoking status: Former Types: Cigarettes Smokeless tobacco: Former Vaping Use Vaping status: Never Used Substance Use Topics Alcohol use: Never Drug use: Yes Types: Marijuana Comment: daily user FAMILY HISTORY Family History Problem Relation Name Age of Onset Hypertension Mother Shaila Ronni Asthma Mother Shaila Rudolph Stroke Mother Shaila Rudolph Congenital heart disease Son congenital heart defect SURGICAL HISTORY Past Surgical History: Procedure Laterality Date SECTION, LOW TRANSVERSE CT ANGIO HEAD 02/01/2024 CT ANGIO HEAD 02/01/2024 CT ANGIOGRAM HEART CORONARY 07/26/2020 CT ANGIOGRAM TAVR 07/26/2020 CT ANGIOGRAM HEART CORONARY 04/11/2020 CT ANGIOGRAM TAVR 04/11/2020 CT ANGIOGRAM HEART CORONARY 11/30/2019 CT ANGIOGRAM TAVR 11/30/2019 CT ANGIOGRAM HEART CORONARY 11/07/2019 CT ANGIOGRAM TAVR 11/07/2019 CT ANGIOGRAM HEART CORONARY 04/07/2019 CT ANGIOGRAM TAVR 04/07/2019 CT ANGIOGRAM HEART CORONARY 06/20/2023 CT ANGIOGRAM HEART CORONARY 06/20/2023 CT GUIDED PERCUTANEOUS BIOPSY RENAL RIGHT Right 11/27/2022 CT GUIDED PERCUTANEOUS BIOPSY RENAL RIGHT 11/27/2022 CT GUIDED TRANSVAGINAL TRANSRECTAL FLUID DRAIN 01/31/2024 CT GUIDED TRANSVAGINAL TRANSRECTAL FLUID DRAIN 01/31/2024 IR LUMBAR PUNCTURE 02/05/2024 IR LUMBAR PUNCTURE 02/05/2024 MR ANGIOGRAM HEAD WO IV CONTRAST 02/03/2024 MR ANGIOGRAM HEAD WO IV CONTRAST 02/03/2024 TUBAL LIGATION REVIEW OF SYSTEMS Review of Systems: Review of Systems Constitutional: Negative. HENT: Negative. Eyes: Negative. Respiratory: Negative. Cardiovascular: Negative. Gastrointestinal: Negative. Genitourinary: Negative. Musculoskeletal: Negative. Skin: Negative. Neurological: Negative. All other systems reviewed and are negative. Hematological: Negative. Endocrine: Negative. Allergic/Immunologic: Negative. OBJECTIVE Objective: Physical Exam Constitutional: Appearance: Normal appearance. She is normal weight. HENT: Head: Normocephalic. Cardiovascular: Rate and Rhythm: Normal rate. Pulses: Normal pulses. Pulmonary: Effort: Pulmonary effort is normal. Breath sounds: Normal breath sounds. Abdominal: Palpations: Abdomen is soft. Musculoskeletal: General: Normal range of motion. Neurological: General: No focal deficit present. Mental Status: She is alert and oriented to person, place, and time. Psychiatric: Mood and Affect: Mood normal. Behavior: Behavior normal. Thought Content: Thought content normal. Judgment: Judgment normal. Vitals and nursing note reviewed. Vitals: Estimated body mass index is 40.29 kg/m as calculated from the following: Height as of 12/24/23: 5' 8 . Weight as of 12/24/23: 265 lb. BP: No LMP recorded. Patient has had an implant. ASSESSMENT & PLAN ICD-10-CM 1. Intrauterine device surveillance Z30.431 2. Pelvic pain in female R10.2 POCT urinalysis dipstick manually resulted Patient presents for pelvic pain and questions for iud placement, strings seen today, US ordered for placement. Cervix appears irritated, she just finished doxcycline, she will take macrobid for urinary symptoms Documented by JASWANT Gudino on behalf of: JASWANT Gudino documented in this encounter [facility] 04-02-2024 Note chart Creatinine (mg/dL) Date Value 10/05/2023 1.73 (H) Last Appointment: 01/09/24 Immunization History Administered Date(s) Administered DTaP, Unspecified 01/07/1992, 03/05/1992, 05/07/1992, 07/28/1993, 08/28/1996 HPV, Quadrivalent 01/20/2009, 03/29/2009, 07/27/2009 Hep B, Adolescent or Pediatric 11/10/1994, 12/19/1994, 05/17/1995 HiB, unspecified 01/07/1992, 03/05/1992, 05/07/1992, 02/10/1993 Influenza, injectable, MDCK, preservative free, quadrivalent 02/08/2023 Influenza, injectable, quadrivalent, preservative free 02/26/2019, 03/23/2020 Influenza, live, intranasal 02/24/2009 Influenza, seasonal, injectable 04/03/2003, 03/03/2010 Influenza, seasonal, injectable, preservative free, 6 moonths & older 05/18/2008 MMR 02/10/1993, 05/26/2004 Meningococcal MCV4P 01/20/2009 Polio, Unspecified 01/07/1992, 03/05/1992, 07/28/1993, 08/28/1996 Tdap 01/20/2009, 04/02/2019, 03/23/2020 [facility] 03-18-2024 History of Present illness Narrative OUTPATIENT NUTRITION Follow-Up - ADULT Date: 03/18/24 Time in: 9:30 Time out: 10:00 Patient Blanca Rudolph Age () 33 y.o. (1990) Sex female Accompanied by alone Reason for Visit: Chief Complaint Patient presents with MNT - Individual F/U; desired wt loss and lupus Assessment: Height/Weight: BMI Category Obese class 3 (> or = 40.00) Weight Wt Readings from Last 3 Encounters: 03/14/24 125.6 kg (277 lb) 02/03/24 125.5 kg (276 lb 10.8 oz) 01/30/24 123.6 kg (272 lb 6.4 oz) Lab Results: A1c Lab Results Component Value Date HGBA1C 5.3 06/19/2023 HGBA1C 4.7 02/27/2023 HGBA1C 5.0 11/22/2022 Kidney Alb/creat ratio Date/Time Value Ref Range Status 11/22/2022 03:41 PM 5,414.9 (H) 0.0 - 30.0 mg/g creat Final Lab Results Component Value Date GLU 79 02/03/2024 K 3.6 02/03/2024 BUN 30 (H) 02/03/2024 CREATININE 1.30 (H) 02/03/2024 Lipid Panel Lab Results Component Value Date CHOL 108 (L) 06/19/2023 Lab Results Component Value Date HDL 37 (L) 06/19/2023 Lab Results Component Value Date LDLCALC 52 06/19/2023 Lab Results Component Value Date TRIG 96 06/19/2023 Hgb Hemoglobin Date/Time Value Ref Range Status 02/04/2024 05:45 AM 11.9 11.7 - 15.5 g/dL Final Psychosocial / Economic Comments: Pt lives in home with disabled mother and 4 children; 1 of children is also disabled. Nutrition/Diet Counseling: Prior Nutrition Counseling Prior nutrition counseling was provided with dietitian. Follow-Up Pertinent Comments: Blanca is here today via MyChart; lupus. Pt states things have been going ok. Had some recent hospitalization due to paralysis on right side. Pt states she is back to normal for the most part at this time. Has been working on getting back into a routine with the kids. Is still not doing a lot of movement but has been trying to go to the gym 1x/week. Has a lot of pain with the upcoming season of colder weather. Discussed movement she can do at her home. Pt is eating a mixture of processed food, cooking at home, and eating out. Is still trying to get good fruit and vegetables. Is lacking in consistent good protein and still doing some high processed carbs. Discussed how this is influencing her body and making it harder to function. Encouraged working towards the previously discussed diet of low process, low inflammation based foods. Diagnosis: Previous Diagnosis; Inconsistent energy intake Related to Lack of prior nutrition-related education and recent lupus diagnosis As evidenced by 24 hr recall and Questions and comments Intervention: Nutrition Education: Patient was instructed on carbohydrate counting, healthy food selections, sources of fiber, and sources of protein Monitoring & Evaluation: Goals Continue Previous Goals Focus on using the Mediterranean Diet to build more meals that fuel and satisfy (low inflammation diet that fits with kidney safe parameters) Your body needs balance; carb for energy, some protein (remember limited), and great vegetables/fruits Try a high fiber bread instead of regular; aunt millies carb smart is an easy place to start Try incorporating beans, yogurt, eggs, chicken, fish for proteins. Oats, quinoa, brown rice, parsnips for some carb options. Increase low impact muscle building movement; 20-30min; stretching, yoga, resistance bands, seated movement Follow-Up Plan No return appointment scheduled. Department phone number provided for questions after session. PARRIS WYATT, RDN, [facility] Diabetes and Nutrition Education Video Visit via Real-time Synchronous Audiovisual Provider Location: [facility] - OUTPATIENT DIABETES AND NUTRITION EDUCATION PROGRAM [address] [place] [id number] Patient Location: Patient's home Video Visit Consent Statement: I discussed risks, benefits, and [...] that there are some limitations compared to [id number] evaluations. The patient consented to the presence of additional virtual and/or in-person participants. We elected to proceed. documented in this encounter [facility] 03-17-2024 Miscellaneous Notes PA request received for Soledad, case pending on CMM with nuno # [id number] Approved with Melody case # [id number] valid till 09/08/24 documented [facility] this [facility]-17-2024 Telephone encounter Note PA request received for Soledad, case pending on CMM with nuno # [id number] [facility] 03-17-2024 Telephone encounter Note Approved with [employer] case # [id number] valid till 09/08/24 [facility] 03-14-2024 History of Present illness Narrative [facility] Neurology Office Note 03/14/2024 9:17 AM Patient info: Blanca Rudolph is a 33 y.o. female Account No.: [id number] Acct: : 1990 PCP: RICKIE CHAN Chief Complaint: Patient, 32 year old left hand dominant female, presents today for follow up Neurological evaluation regarding headaches. Last seen in the office on 09/07/23 Blanca is present in the office today herself. Interval Hx: At last office visit (09/07/23) titrated Amitriptyline to 25 mg, 2 tablets (50 mg) HS for CURRY/migraine prevention. We continued Rizatriptan 10 mg for abortive/symptomatic migraine relief. Doing well with headaches since hospital discharge on 02/05/24. There has been no further complicated migraines. 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 Subsequently, Triptans are not indicated due to complicated migraine with associated RLE weakness. Current preventative CURRY/migraine medication: Magnesium Oxide, Amitriptyline Preventative med/s previously tried include: Metoprolol Preventative med/s not indicated include: Propranolol Current abortive/symptomatic relief CURRY/migraine medication: Tylenol Abortive/Symptomatic relief med/s previously tried include: Rizatriptan Abortive/Symptomatic relief med/s not indicated include: Ibuprofen and Naproxen Previous Studies: 10/25/21: CT Head without contrast - No acute intracranial abnormalities Prior Hx: Initial Consultation 07/05/23 Headache Hx: Onset of headaches was years [...] of significant head injury/trauma: (-) hx of [employer] infection: (-) hx of stroke or cerebrovascular [...] as cloudy vision at times, L > RKd Blanca follows with Rheumatology. She is being [...] with Xarelto and ASA 81 mg daily. Follow up 09/07/23 Brain MRI without contrast was completed on 07/23/23. No evidence of intracranial mass, focal signal abnormality, or acute pathology. There is a partial empty sella. At last office visit (07/05/23) increased Amitriptyline to 25 mg HS for CURRY/migraine prevention. Rizatriptan 10 mg for abortive/symptomatic migraine relief. Blanca has been tolerating the increased dose of Amitriptyline well. She even reports sleeping better since increasing the dose. CURRY/migraine frequency has since decreased to 2-3 per week. Her baseline was daily . Rizatriptan 10 mg has been helpful in providing abortive/symptomatic relief and well tolerated. Past Medical Hx: See EMR Surgical Hx: See EMR Allergies: See EMR [...] remainder of ROS is negative Vitals: BP: 133/75 HR: 88 Weight: 125.6 kg Physical Exam: General: well groomed, appears [...] and SLE with lupus nephritis who gets frequent headaches, often with features of migraine without aura, including recent complicated migraine with associated RLE weakness. CURRY's/migraines have shown overall good improvement on her current regimen. PLAN: Continue Amitriptyline 50 mg HS for migraine prevention Start Nurtec ODT 75 mg for abortive/symptomatic migraine relief; because of interaction with other meds, may only take up to 1 tablet per 48 hrs. CURRY log is recommended Identification and avoidance of personal CURRY/migraine triggers discussed Trying to stay on a regular sleep and eating schedule, staying well hydrated, and working on stress management to help reduce CURRY/migraine frequency discussed Follow up in the office in 4-6 months Electronically Signed by: Pasquale Alexander PA-C 03/16/24 [id number] documented in this [facility] 03-10-2024 Miscellaneous Notes Patient is taking Bumex 2mg in the am and 2mg in the evenings. Please send to Jacob d/t R/A closing RX SENT documented in this encounter [facility] 03-10-2024 Telephone encounter Note Patient is taking Bumex 2mg in the am and 2mg in the evenings. Please send to Jacob d/t R/A closing [facility] 03-10-2024 Telephone encounter Note RX SENT [facility] 03-04-2024 Miscellaneous Notes Patient called asked for a refill documented in this encounter [facility] 03-04-2024 Telephone encounter Note Patient called asked for a refill [facility] 02-11-2024 Miscellaneous Notes Patient called in stating that she saw on her MyChart that some labs that were taken at ED visit 01/31/24-02/05/24 stated abnormal results. Patient is asking for a call back to further discuss these. This is Ganga Benjamin's patient. CSF labs (from LP) look good/normal. Looks like her kidney function is somewhat impaired, similar to previous labs taken earlier in the year. - [facility] Patient was contacted and informed of results. Patient voiced understanding. documented in this encounter [facility] 02-11-2024 Telephone encounter Note Patient called in stating that she saw on her MyChart that some labs that were taken at ED visit 01/31/24-02/05/24 stated abnormal results. Patient is asking for a call back to further discuss these. [facility] 02-11-2024 Telephone encounter Note This is Ganga Alexander's patient. [facility] 02-11-2024 Telephone encounter Note CSF labs (from LP) look good/normal. Looks like her kidney function is somewhat impaired, similar to previous labs taken earlier in the year. - [facility] 02-11-2024 Telephone encounter Note Patient was contacted and informed of results. Patient voiced understanding. [facility] 02-05-2024 Nurse Note Summary: discharge Patient VSS. Patient Iv removed, patient taken to entrance C to wait for ride per policy. front end software developer wheeled patient down. [facility] 02-05-2024 Nurse Note Summary: discharge Patient VSS. Patient Iv removed, patient taken to entrance C to wait for ride per policy. front end software developer wheeled patient down. To room in no apparent distress and report phoned to floor nurse Received post-op and pt lays flat until 1100 and POC discussed. fmonitoring Received to IRR pre-op and POC discussed documented in this encounter [facility] 02-05-2024 Progress note Formatting of t his note might be different from the original. Patient taken to entrance C departure lobby to wait for ride to arrive. [facility] 02-05-2024 Miscellaneous Notes Patient taken to entrance C departure lobby to wait for ride to arrive. Problem: Pain Goal: Patient goal is pain score less than 4, able to rest, and participant in treatment plan as appropriate Description: INTERVENTIONS: 1. Encourage patient or legal in store representative to report early pain and ask for pain medicine when needed 2. Assess pain using appropriate pain scale and include the scale used when documenting 3. Administer analgesics based on type and severity of pain and evaluate response within appropriate time frame 4. Implement non-pharmacological measures as appropriate and evaluate response 5. Consider cultural and social influences on pain and pain management 6. Notify LIP if interventions ineffective or patient reports new pain 7. Monitor vital signs including pulse ox, end-tidal CO2 based on pain intervention 8. Reassess pain per policy 9. Teach patient or legal in store representative interventions for comforting Outcome: Progressing Note: Evaluation of progress towards goal: patient comfort maintained, will continue to assess Problem: Safety Goal: Patient will be injury free during hospitalization Description: INTERVENTIONS: 1. Assess patient's risk for falls and implement fall prevention plan of care per policy 2. Provide and maintain a safe environment 3. Proper use of double Identifiers 4. Medication administration using the 5 rights 5. Hand hygiene 6. Specimens are labeled at the bedside 7. Instruct patient/ patient in store representative about use of safety devices 8. Include patient/ patient in store representative in decisions related to safety Outcome: Progressing Note: Evaluation of progress towards goal: Patient free from injury, will continue to provide a clean environment, personal objects in reach, and a well light room Problem: Knowledge Deficit Goal: Patient/patient in store representative demonstrates understanding of disease process, treatment plan, medications, and discharge instructions Description: INTERVENTIONS 1. Complete learning assessment and assess knowledge base 2. Provide teaching at level of understanding 3. Provide teaching via preferred learning method(s) Outcome: Progressing Note: Evaluation of progress towards goal: Patient kept updated on plan of care, will continue to keep updated as new information arises DISCHARGE PLANNING NOTE Follow-up Discharge Planning Progress Note Per RN during discharge transition rounds, barriers to discharge are: Pain. S/p LP Discharge Plan: Home with supportive mother. [facility] tasked to arrange hospital follow up with PCP office. Care Navigation will continue to follow for any discharge needs - Hilda Hsu RN 02/05/24 1:40 PM Problem: Pain Goal: Patient goal is pain score less than 4, able to rest, and participant in treatment plan as appropriate Description: INTERVENTIONS: 1. Encourage patient or legal in store representative to report early pain and ask for pain medicine when needed 2. Assess pain using appropriate pain scale and include the scale used when documenting 3. Administer analgesics based on type and severity of pain and evaluate response within appropriate time frame 4. Implement non-pharmacological measures as appropriate and evaluate response 5. Consider cultural and social influences on pain and pain management 6. Notify LIP if interventions ineffective or patient reports new pain 7. Monitor vital signs including pulse ox, end-tidal CO2 based on pain intervention 8. Reassess pain per policy 9. Teach patient or legal in store representative interventions for comforting Outcome: Progressing Note: Evaluation of progress towards goal: rates headache pain 4 on scale 0-10; declines migraine cocktail at this time Problem: Safety Goal: Patient will be injury free during hospitalization Description: INTERVENTIONS: 1. Assess patient's risk for falls and implement fall prevention plan of care per policy 2. Provide and maintain a safe environment 3. Proper use of double Identifiers 4. Medication administration using the 5 rights 5. Hand hygiene 6. Specimens are labeled at the bedside 7. Instruct patient/ patient in store representative about use of safety devices 8. Include patient/ patient in store representative in decisions related to safety Outcome: Progressing Note: Evaluation of progress towards goal: Patient free from injury; bed to low position; skid free socks applied; call light in reach Problem: Knowledge Deficit Goal: Patient/patient in store representative demonstrates understanding of disease process, treatment plan, medications, and discharge instructions Description: INTERVENTIONS 1. Complete learning assessment and assess knowledge base 2. Provide teaching at level of understanding 3. Provide teaching via preferred learning method(s) Outcome: Progressing Note: Evaluation of progress towards goal: Patient verbalizes understanding of POC Problem: Neurological Deficit Goal: Neurological status is stable or improving Description: Patient's goal is: INTERVENTIONS 1. Complete Neurological assessment as indicated/ordered 2. Initiate measures to prevent increased intracranial pressure 3. Monitor and assess patient's level of consciousness, motor function, sensory function, and level of assistance needed for ADLs 4. Monitor and report changes from baseline 5. Maintain blood pressure and fluid volume within ordered parameters to optimize cerebral perfusion and minimize risk of hemorrhage 6. Monitor labs and diagnostic tests 7. Administer anti-seizure medications as ordered 8. Maintain airway, patient safety and administer oxygen as ordered 9. Monitor patient for seizure activity, document and report duration and description of seizure to LIP 10. If seizure occurs, turn patient to side and suction secretions as needed 11. Reorient patient post seizure 12. Seizure pads on all 4 side rails 13. Instruct patient/family to notify RN of any seizure activity 14. Instruct patient/family to call for assistance with activity based on assessment 15. Utilize bleeding precautions if thrombolytic given Outcome: Progressing Note: Evaluation of progress towards goal: right facial droop continues; previous numbness to right arm and face has resolved DISCHARGE PLANNING NOTE Case discussed in daily transition rounds and chart reviewed by CN. Barriers to discharge include migraine cocktail, IR guided LP 02/04, heparin gtt Discharge Plan remains: home with self care/family assistance. Patient transferred from [facility] and was seen by care navigation. Patient is planning to transition home with self care/family assistance as needed at discharge. Family will transport patient home at discharge. CN will continue to follow and is available should any further needs arise. - LORI RASCON 02/04/24 3:23 PM Problem: Neurological Deficit Goal: Neurological status is stable or improving Description: Patient's goal is: INTERVENTIONS 1. Complete Neurological assessment as indicated/ordered 2. Initiate measures to prevent increased intracranial pressure 3. Monitor and assess patient's level of consciousness, motor function, sensory function, and level of assistance needed for ADLs 4. Monitor and report changes from baseline 5. Maintain blood pressure and fluid volume within ordered parameters to optimize cerebral perfusion and minimize risk of hemorrhage 6. Monitor labs and diagnostic tests 7. Administer anti-seizure medications as ordered 8. Maintain airway, patient safety and administer oxygen as ordered 9. Monitor patient for seizure activity, document and report duration and description of seizure to LIP 10. If seizure occurs, turn patient to side and suction secretions as needed 11. Reorient patient post seizure 12. Seizure pads on all 4 side rails 13. Instruct patient/family to notify RN of any seizure activity 14. Instruct patient/family to call for assistance with activity based on assessment 15. Utilize bleeding precautions if thrombolytic given Outcome: Progressing Note: Evaluation of progress towards goal: Neurologic status remains stable. Pt noticed an improvement in neuro symptoms. Monitoring and assessments are being performed as ordered by the prescriber. Problem: Pain Goal: Patient goal is pain score less than 4, able to rest, and participant in treatment plan as appropriate Description: INTERVENTIONS: 1. Encourage patient or legal in store representative to report early pain and ask for pain medicine when needed 2. Assess pain using appropriate pain scale and include the scale used when documenting 3. Administer analgesics based on type and severity of pain and evaluate response within appropriate time frame 4. Implement non-pharmacological measures as appropriate and evaluate response 5. Consider cultural and social influences on pain and pain management 6. Notify LIP if interventions ineffective or patient reports new pain 7. Monitor vital signs including pulse ox, end-tidal CO2 based on pain intervention 8. Reassess pain per policy 9. Teach patient or legal in store representative interventions for comforting Outcome: Progressing Note: Evaluation of progress towards goal: Pain is managed to a tolerable level with PRN pain meds and non-pharm interventions, assessments completed, VS monitored, patient encouraged to report pain early, med administration as ordered Problem: Safety Goal: Patient will be injury free during hospitalization Description: INTERVENTIONS: 1. Assess patient's risk for falls and implement fall prevention plan of care per policy 2. Provide and maintain a safe environment 3. Proper use of double Identifiers 4. Medication administration using the 5 rights 5. Hand hygiene 6. Specimens are labeled at the bedside 7. Instruct patient/ patient in store representative about use of safety devices 8. Include patient/ patient in store representative in decisions related to safety Outcome: Progressing Note: Evaluation of progress towards goal: Patient safety is maintained. Patient is free from injury, side rails are up x2, call light is within reach, and bed is in lowest position. Problem: Infection Goal: Absence of infection during hospitalization Description: Interventions: 1. Assess and monitor for signs and symptoms of infection 2. Monitor lab/diagnostic results 3. Monitor all insertion sites i.e., indwelling lines, tubes and drains 4. Monitor endotracheal (as able) and nasal secretions for changes in amount and color 5. Administer medications as ordered 6. Instruct and encourage patient and family to use good hand hygiene technique 7. Identify and instruct patient/patient in store representative in use of appropriate isolation precautions for identified infection/symptoms 8. Provide and discuss with patient/patient in store representative on educational MDRO sheet 9. Encourage and monitor nutritional status daily and consult operations welder if indicated 10. Implement neutropenic guidelines as needed 11. Review exposure to history of communicable disease and recent travel history on admission 12. Encourage annual influenza vaccine 13. Encourage pneumonia vaccine Outcome: Progressing Note: Evaluation of progress towards goal: Handwashing and standard precautions maintained. Patient remains free from infection through shift and has not shown any additional signs of infection at this time. Will continue to educate on infection prevention. Problem: Knowledge Deficit Goal: Patient/patient in store representative demonstrates understanding of disease process, treatment plan, medications, and discharge instructions Description: INTERVENTIONS 1. Complete learning assessment and assess knowledge base 2. Provide teaching at level of understanding 3. Provide teaching via preferred learning method(s) Outcome: Progressing Note: Evaluation of progress towards goal: Patient is included in plan of care. All questions are answered at this time. Will continue to educate. Problem: Pain Goal: Patient goal is pain score less than 4, able to rest, and participant in treatment plan as appropriate Description: INTERVENTIONS: 1. Encourage patient or legal in store representative to report early pain and ask for pain medicine when needed 2. Assess pain using appropriate pain scale and include the scale used when documenting 3. Administer analgesics based on type and severity of pain and evaluate response within appropriate time frame 4. Implement non-pharmacological measures as appropriate and evaluate response 5. Consider cultural and social influences on pain and pain management 6. Notify LIP if interventions ineffective or patient reports new pain 7. Monitor vital signs including pulse ox, end-tidal CO2 based on pain intervention 8. Reassess pain per policy 9. Teach patient or legal in store representative interventions for comforting Outcome: Progressing Note: Evaluation of progress towards goal: rates right occipital headache pain 5 on scale, but denies pain medications currently Problem: Safety Goal: Patient will be injury free during hospitalization Description: INTERVENTIONS: 1. Assess patient's risk for falls and implement fall prevention plan of care per policy 2. Provide and maintain a safe environment 3. Proper use of double Identifiers 4. Medication administration using the 5 rights 5. Hand hygiene 6. Specimens are labeled at the bedside 7. Instruct patient/ patient in store representative about use of safety devices 8. Include patient/ patient in store representative in decisions related to safety Outcome: Progressing Note: Evaluation of progress towards goal: Patient free from injury; bed to low position; skid free socks applied; call light in reach Problem: Knowledge Deficit Goal: Patient/patient in store representative demonstrates understanding of disease process, treatment plan, medications, and discharge instructions Description: INTERVENTIONS 1. Complete learning assessment and assess knowledge base 2. Provide teaching at level of understanding 3. Provide teaching via preferred learning method(s) Outcome: Progressing Note: Evaluation of progress towards goal: Patient verbalizes understanding of POC Problem: Discharge Planning Goal: Discharge to post-acute care, other facility, or home with appropriate resources Description: Patient's goal is: INTERVENTIONS 1. Conduct assessment to determine patient/family and health care team treatment goals, and need for post-acute services based on payer coverage, community resources, and patient preferences, and barriers to discharge 2. Coordinate with Social work, Care Navigation, and Utilization Review to arrange appropriate level of services according to patient's needs based on patient preference and payer coverage in collaboration with the physician and health care team 3. Address psychosocial, clinical, and financial barriers to discharge as identified in assessment in conjunction with the patient/family and health care team 4. Consult appropriate ancillary services (i.e.. PT/OT/ST, etc) as needed 5. Communicate with and update the patient/family, physician, and health care team regarding progress on the discharge plan 6. Identify discharge learning needs (meds, wound care, etc). 7. Arrange for needed discharge transportation as appropriate Outcome: Progressing Note: Evaluation of progress towards goal: Patient verbalizes understanding of discharge plans Problem: Pain Goal: Patient goal is pain score less than 4, able to rest, and participant in treatment plan as appropriate Description: INTERVENTIONS: 1. Encourage patient or legal in store representative to report early pain and ask for pain medicine when needed 2. Assess pain using appropriate pain scale and include the scale used when documenting 3. Administer analgesics based on type and severity of pain and evaluate response within appropriate time frame 4. Implement non-pharmacological measures as appropriate and evaluate response 5. Consider cultural and social influences on pain and pain management 6. Notify LIP if interventions ineffective or patient reports new pain 7. Monitor vital signs including pulse ox, end-tidal CO2 based on pain intervention 8. Reassess pain per policy 9. Teach patient or legal in store representative interventions for comforting Outcome: Progressing Note: Evaluation of progress towards goal: Patient c/o headache 11/06, PRN medications available, pt encouraged to notify RN of any occurrences Problem: Safety Goal: Patient will be injury free during hospitalization Description: INTERVENTIONS: 1. Assess patient's risk for falls and implement fall prevention plan of care per policy 2. Provide and maintain a safe environment 3. Proper use of double Identifiers 4. Medication administration using the 5 rights 5. Hand hygiene 6. Specimens are labeled at the bedside 7. Instruct patient/ patient in store representative about use of safety devices 8. Include patient/ patient in store representative in decisions related to safety Outcome: Progressing Note: Evaluation of progress towards goal: Bed locked in lowest position, call light within reach, belongings at bedside, hourly rounding maintained, patient independent Problem: Infection Goal: Absence of infection during hospitalization Description: Interventions: 1. Assess and monitor for signs and symptoms of infection 2. Monitor lab/diagnostic results 3. Monitor all insertion sites i.e., indwelling lines, tubes and drains 4. Monitor endotracheal (as able) and nasal secretions for changes in amount and color 5. Administer medications as ordered 6. Instruct and encourage patient and family to use good hand hygiene technique 7. Identify and instruct patient/patient in store representative in use of appropriate isolation precautions for identified infection/symptoms 8. Provide and discuss with patient/patient in store representative on educational MDRO sheet 9. Encourage and monitor nutritional status daily and consult operations welder if indicated 10. Implement neutropenic guidelines as needed 11. Review exposure to history of communicable disease and recent travel history on admission 12. Encourage annual influenza vaccine 13. Encourage pneumonia vaccine Outcome: Progressing Note: Evaluation of progress towards goal: Patient afebrile, no s/s of infection noted at this time Problem: Knowledge Deficit Goal: Patient/patient in store representative demonstrates understanding of disease process, treatment plan, medications, and discharge instructions Description: INTERVENTIONS 1. Complete learning assessment and assess knowledge base 2. Provide teaching at level of understanding 3. Provide teaching via preferred learning method(s) Outcome: Progressing Note: Evaluation of progress towards goal: Patient involved in treatment plan, verbalizes an understanding Problem: Discharge Planning Goal: Discharge to post-acute care, other facility, or home with appropriate resources Description: Patient's goal is: INTERVENTIONS 1. Conduct assessment to determine patient/family and health care team treatment goals, and need for post-acute services based on payer coverage, community resources, and patient preferences, and barriers to discharge 2. Coordinate with Social work, Care Navigation, and Utilization Review to arrange appropriate level of services according to patient's needs based on patient preference and payer coverage in collaboration with the physician and health care team 3. Address psychosocial, clinical, and financial barriers to discharge as identified in assessment in conjunction with the patient/family and health care team 4. Consult appropriate ancillary services (i.e.. PT/OT/ST, etc) as needed 5. Communicate with and update the patient/family, physician, and health care team regarding progress on the discharge plan 6. Identify discharge learning needs (meds, wound care, etc). 7. Arrange for needed discharge transportation as appropriate Outcome: Progressing Note: Evaluation of progress towards goal: Patient plans to discharge home Problem: Low Risk Fall Score Description: Mckeon Fall Score of 0 - 24 or indicated by [facility] Assessment Goal: Patient should be free from fall Description: Interventions: 1. [place] to environment 2. Hourly rounds addressing the 4 P's (Pain, Positioning, Possessions, Potty) 3. Clear area of hazards (spills, clutter, electrical cords, unnecessary equipment) 4. Place equipment (bed & TV controls, call light, phone, urinal) within reach 5. Encourage patient to wear glasses and hearing aides as appropriate 6. Maintain bed in lowest position 7. Lock wheels on bed/wheelchair 8. Provide adequate lighting, including night light 9. Assess need for additional bedding, food/fluids, pain med's prior to sleep/routinely 10. Provide gripper slippers or personal non-skid footwear 11. Teach patient and patient in store representative to maintain environment for safety and engage in all aspects of fall prevention program Outcome: Progressing Note: Evaluation of progress towards goal: Patient remains free from falls at this time, hourly rounding maintained Problem: Pain Goal: Patient goal is pain score less than 4, able to rest, and participant in treatment plan as appropriate Description: INTERVENTIONS: 1. Encourage patient or legal in store representative to report early pain and ask for pain medicine when needed 2. Assess pain using appropriate pain scale and include the scale used when documenting 3. Administer analgesics based on type and severity of pain and evaluate response within appropriate time frame 4. Implement non-pharmacological measures as appropriate and evaluate response 5. Consider cultural and social influences on pain and pain management 6. Notify LIP if interventions ineffective or patient reports new pain 7. Monitor vital signs including pulse ox, end-tidal CO2 based on pain intervention 8. Reassess pain per policy 9. Teach patient or legal in store representative interventions for comforting Outcome: Progressing Note: Evaluation of progress towards goal: denies pain Problem: Safety Goal: Patient will be injury free during hospitalization Description: INTERVENTIONS: 1. Assess patient's risk for falls and implement fall prevention plan of care per policy 2. Provide and maintain a safe environment 3. Proper use of double Identifiers 4. Medication administration using the 5 rights 5. Hand hygiene 6. Specimens are labeled at the bedside 7. Instruct patient/ patient in store representative about use of safety devices 8. Include patient/ patient in store representative in decisions related to safety Outcome: Progressing Note: Evaluation of progress towards goal: Safety maintained this shift no falls or injury. Problem: Infection Goal: Absence of infection during hospitalization Description: Interventions: 1. Assess and monitor for signs and symptoms of infection 2. Monitor lab/diagnostic results 3. Monitor all insertion sites i.e., indwelling lines, tubes and drains 4. Monitor endotracheal (as able) and nasal secretions for changes in amount and color 5. Administer medications as ordered 6. Instruct and encourage patient and family to use good hand hygiene technique 7. Identify and instruct patient/patient in store representative in use of appropriate isolation precautions for identified infection/symptoms 8. Provide and discuss with patient/patient in store representative on educational MDRO sheet 9. Encourage and monitor nutritional status daily and consult operations welder if indicated 10. Implement neutropenic guidelines as needed 11. Review exposure to history of communicable disease and recent travel history on admission 12. Encourage annual influenza vaccine 13. Encourage pneumonia vaccine Outcome: Progressing Note: Evaluation of progress towards goal: continue antibiotics, monitor labs. Problem: Knowledge Deficit Goal: Patient/patient in store representative demonstrates understanding of disease process, treatment plan, medications, and discharge instructions Description: INTERVENTIONS 1. Complete learning assessment and assess knowledge base 2. Provide teaching at level of understanding 3. Provide teaching via preferred learning method(s) Outcome: Progressing Note: Evaluation of progress towards goal: Patient educated as needed. Patient updated on plan of care. No questions at this time. Problem: Discharge Planning Goal: Discharge to post-acute care, other facility, or home with appropriate resources Description: Patient's goal is: INTERVENTIONS 1. Conduct assessment to determine patient/family and health care team treatment goals, and need for post-acute services based on payer coverage, community resources, and patient preferences, and barriers to discharge 2. Coordinate with Social work, Care Navigation, and Utilization Review to arrange appropriate level of services according to patient's needs based on patient preference and payer coverage in collaboration with the physician and health care team 3. Address psychosocial, clinical, and financial barriers to discharge as identified in assessment in conjunction with the patient/family and health care team 4. Consult appropriate ancillary services (i.e.. PT/OT/ST, etc) as needed 5. Communicate with and update the patient/family, physician, and health care team regarding progress on the discharge plan 6. Identify discharge learning needs (meds, wound care, etc). 7. Arrange for needed discharge transportation as appropriate Outcome: Progressing Note: Evaluation of progress towards goal: Patient updated on discharge planning. All questions answered Problem: Low Risk Fall Score Description: Mckeon Fall Score of 0 - 24 or indicated by [facility] Assessment Goal: Patient should be free from fall Description: Interventions: 1. [place] to environment 2. Hourly rounds addressing the 4 P's (Pain, Positioning, Possessions, Potty) 3. Clear area of hazards (spills, clutter, electrical cords, unnecessary equipment) 4. Place equipment (bed & TV controls, call light, phone, urinal) within reach 5. Encourage patient to wear glasses and hearing aides as appropriate 6. Maintain bed in lowest position 7. Lock wheels on bed/wheelchair 8. Provide adequate lighting, including night light 9. Assess need for additional bedding, food/fluids, pain med's prior to sleep/routinely 10. Provide gripper slippers or personal non-skid footwear 11. Teach patient and patient in store representative to maintain environment for safety and engage in all aspects of fall prevention program Outcome: Progressing Note: Evaluation of progress towards goal: patient is fall risk, no falls this shift. Continue to monitor Problem: Pain Goal: Patient goal is pain score less than 4, able to rest, and participant in treatment plan as appropriate Description: INTERVENTIONS: 1. Encourage patient or legal in store representative to report early pain and ask for pain medicine when needed 2. Assess pain using appropriate pain scale and include the scale used when documenting 3. Administer analgesics based on type and severity of pain and evaluate response within appropriate time frame 4. Implement non-pharmacological measures as appropriate and evaluate response 5. Consider cultural and social influences on pain and pain management 6. Notify LIP if interventions ineffective or patient reports new pain 7. Monitor vital signs including pulse ox, end-tidal CO2 based on pain intervention 8. Reassess pain per policy 9. Teach patient or legal in store representative interventions for comforting Outcome: Progressing Note: Evaluation of progress towards goal: Patient will remain at or below pain goal until the end of the shift. Will monitor Problem: Safety Goal: Patient will be injury free during hospitalization Description: INTERVENTIONS: 1. Assess patient's risk for falls and implement fall prevention plan of care per policy 2. Provide and maintain a safe environment 3. Proper use of double Identifiers 4. Medication administration using the 5 rights 5. Hand hygiene 6. Specimens are labeled at the bedside 7. Instruct patient/ patient in store representative about use of safety devices 8. Include patient/ patient in store representative in decisions related to safety Outcome: Progressing Note: Evaluation of progress towards goal: Patient will remain free from injury until the end of the shift Problem: Infection Goal: Absence of infection during hospitalization Description: Interventions: 1. Assess and monitor for signs and symptoms of infection 2. Monitor lab/diagnostic results 3. Monitor all insertion sites i.e., indwelling lines, tubes and drains 4. Monitor endotracheal (as able) and nasal secretions for changes in amount and color 5. Administer medications as ordered 6. Instruct and encourage patient and family to use good hand hygiene technique 7. Identify and instruct patient/patient in store representative in use of appropriate isolation precautions for identified infection/symptoms 8. Provide and discuss with patient/patient in store representative on educational MDRO sheet 9. Encourage and monitor nutritional status daily and consult operations welder if indicated 10. Implement neutropenic guidelines as needed 11. Review exposure to history of communicable disease and recent travel history on admission 12. Encourage annual influenza vaccine 13. Encourage pneumonia vaccine Outcome: Progressing Note: Evaluation of progress towards goal: Patient will remain free from infection until the end of the shift. Problem: Knowledge Deficit Goal: Patient/patient in store representative demonstrates understanding of disease process, treatment plan, medications, and discharge instructions Description: INTERVENTIONS 1. Complete learning assessment and assess knowledge base 2. Provide teaching at level of understanding 3. Provide teaching via preferred learning method(s) Outcome: Progressing Note: Evaluation of progress towards goal: Patient will be educated about the plan of care before the end of the shift Problem: Discharge Planning Goal: Discharge to post-acute care, other facility, or home with appropriate resources Description: Patient's goal is: INTERVENTIONS 1. Conduct assessment to determine patient/family and health care team treatment goals, and need for post-acute services based on payer coverage, community resources, and patient preferences, and barriers to discharge 2. Coordinate with Social work, Care Navigation, and Utilization Review to arrange appropriate level of services according to patient's needs based on patient preference and payer coverage in collaboration with the physician and health care team 3. Address psychosocial, clinical, and financial barriers to discharge as identified in assessment in conjunction with the patient/family and health care team 4. Consult appropriate ancillary services (i.e.. PT/OT/ST, etc) as needed 5. Communicate with and update the patient/family, physician, and health care team regarding progress on the discharge plan 6. Identify discharge learning needs (meds, wound care, etc). 7. Arrange for needed discharge transportation as appropriate Outcome: Progressing Note: Evaluation of progress towards goal: Patients discharge needs will be assessed before the end of the shift. Problem: Glucose Imbalance Goal: Clinical indication of glucose balance is achieved Description: Patient's goal is: INTERVENTIONS 1. Monitor blood glucose levels as ordered 2. Administer medications as ordered 3. Notify physician of ineffective treatment plan Outcome: Progressing Note: Evaluation of progress towards goal: Patients blood sugar level will be monitored until the end of the shift Goal: Patient's discharge needs are met Description: Patient's goal is: INTERVENTIONS 1. Assess patient for self-management skills 2. Encourage participation in diabetes management 3. Identify potential discharge barriers on admission and throughout hospital stay 4. Involve patient/S.O. in discharge planning process 5. Communicate referral to simulation educator as appropriate 6. Communicate referral to operations welder as appropriate 7. Collaborate with case management/social science instructor for discharge needs Outcome: Progressing Note: Evaluation of progress towards goal: Patients discharge needs will be assessed before the end of the shift. Problem: Moderate - High Risk Fall Score Description: Mckeon Fall Score of =/> 25 or indicated by [facility] Assessment Goal: Patient should be free from fall Description: Interventions: 1. [place] to environment 2. Hourly rounds addressing the 4 P's (Pain, Positioning, Possessions, Potty) 3. Clear area of hazards (spills, clutter, electrical cords, unnecessary equipment) 4. Place equipment (bed & TV controls, call light, phone, urinal) within reach 5. Encourage patient to wear glasses and hearing aides as appropriate 6. Maintain bed in lowest position 7. Lock wheels on bed/wheelchair 8. Provide adequate lighting, including night light 9. Assess need for additional bedding, food/fluids, pain med's prior to sleep/routinely 10. Provide gripper slippers or personal non-skid footwear 11. Teach patient and patient in store representative to maintain environment for safety and engage in all aspects of fall prevention program 12. Remind patient to call for help before getting out of bed 13. Initiate bed/chair/exit alarms supportive devices as appropriate, (chair wedge, no-skid floor mat, raised edge mattress, hip protectors) 14. Locate patient bed assignment for optimal visualization 15. Evaluate and identify Safe Patient Handling Equipment needs 16. Provide supervision when out of bed or chair 17. Utilize gait belt as needed to assist with ambulation 18. Place adaptive equipment (cane, walker) within reach 19. Request patient in store representative bring adaptive equipment/mobility aids from home or obtain and provide as needed 20. Consult pharmacy regarding effects of med's affecting mobility, cognition, and alternatives 21. Obtain physician order for PT if risk factors associated with mobility are present 22. Obtain physician order for OT as appropriate 23. Utilize diversional activities 24. Educate patient and patient in store representative how to maintain a safe environment during visitation times (notify nurse prior to leaving bedside) 25. Consider appropriateness of medical or non-medical advisor 26. Set up voiding schedule as appropriate (every 2 hours) Outcome: Progressing Note: Evaluation of progress towards goal: Patient will remain free from falls until the end of the shift. Problem: Pain Goal: Patient goal is pain score less than 4, able to rest, and participant in treatment plan as appropriate Description: INTERVENTIONS: 1. Encourage patient or legal in store representative to report early pain and ask for pain medicine when needed 2. Assess pain using appropriate pain scale and include the scale used when documenting 3. Administer analgesics based on type and severity of pain and evaluate response within appropriate time frame 4. Implement non-pharmacological measures as appropriate and evaluate response 5. Consider cultural and social influences on pain and pain management 6. Notify LIP if interventions ineffective or patient reports new pain 7. Monitor vital signs including pulse ox, end-tidal CO2 based on pain intervention 8. Reassess pain per policy 9. Teach patient or legal in store representative interventions for comforting Outcome: Progressing Note: Evaluation of progress towards goal: denies pain Problem: Safety Goal: Patient will be injury free during hospitalization Description: INTERVENTIONS: 1. Assess patient's risk for falls and implement fall prevention plan of care per policy 2. Provide and maintain a safe environment 3. Proper use of double Identifiers 4. Medication administration using the 5 rights 5. Hand hygiene 6. Specimens are labeled at the bedside 7. Instruct patient/ patient in store representative about use of safety devices 8. Include patient/ patient in store representative in decisions related to safety Outcome: Progressing Note: Evaluation of progress towards goal: Safety maintained this shift no falls or injury. Problem: Infection Goal: Absence of infection during hospitalization Description: Interventions: 1. Assess and monitor for signs and symptoms of infection 2. Monitor lab/diagnostic results 3. Monitor all insertion sites i.e., indwelling lines, tubes and drains 4. Monitor endotracheal (as able) and nasal secretions for changes in amount and color 5. Administer medications as ordered 6. Instruct and encourage patient and family to use good hand hygiene technique 7. Identify and instruct patient/patient in store representative in use of appropriate isolation precautions for identified infection/symptoms 8. Provide and discuss with patient/patient in store representative on educational MDRO sheet 9. Encourage and monitor nutritional status daily and consult operations welder if indicated 10. Implement neutropenic guidelines as needed 11. Review exposure to history of communicable disease and recent travel history on admission 12. Encourage annual influenza vaccine 13. Encourage pneumonia vaccine Outcome: Progressing Note: Evaluation of progress towards goal: No s/s of infection at this time. Afebrile. Will continue to monitor Problem: Knowledge Deficit Goal: Patient/patient in store representative demonstrates understanding of disease process, treatment plan, medications, and discharge instructions Description: INTERVENTIONS 1. Complete learning assessment and assess knowledge base 2. Provide teaching at level of understanding 3. Provide teaching via preferred learning method(s) Outcome: Progressing Note: Evaluation of progress towards goal: Patient educated as needed. Patient updated on plan of care. No questions at this time. Problem: Discharge Planning Goal: Discharge to post-acute care, other facility, or home with appropriate resources Description: Patient's goal is: INTERVENTIONS 1. Conduct assessment to determine patient/family and health care team treatment goals, and need for post-acute services based on payer coverage, community resources, and patient preferences, and barriers to discharge 2. Coordinate with Social work, Care Navigation, and Utilization Review to arrange appropriate level of services according to patient's needs based on patient preference and payer coverage in collaboration with the physician and health care team 3. Address psychosocial, clinical, and financial barriers to discharge as identified in assessment in conjunction with the patient/family and health care team 4. Consult appropriate ancillary services (i.e.. PT/OT/ST, etc) as needed 5. Communicate with and update the patient/family, physician, and health care team regarding progress on the discharge plan 6. Identify discharge learning needs (meds, wound care, etc). 7. Arrange for needed discharge transportation as appropriate Outcome: Progressing Note: Evaluation of progress towards goal: Patient educated as needed. Patient updated on plan of care. No questions at this time. Problem: Low Risk Fall Score Description: Mckeon Fall Score of 0 - 24 or indicated by [facility] Assessment Goal: Patient should be free from fall Description: Interventions: 1. [place] to environment 2. Hourly rounds addressing the 4 P's (Pain, Positioning, Possessions, Potty) 3. Clear area of hazards (spills, clutter, electrical cords, unnecessary equipment) 4. Place equipment (bed & TV controls, call light, phone, urinal) within reach 5. Encourage patient to wear glasses and hearing aides as appropriate 6. Maintain bed in lowest position 7. Lock wheels on bed/wheelchair 8. Provide adequate lighting, including night light 9. Assess need for additional bedding, food/fluids, pain med's prior to sleep/routinely 10. Provide gripper slippers or personal non-skid footwear 11. Teach patient and patient in store representative to maintain environment for safety and engage in all aspects of fall prevention program Outcome: Progressing Note: Evaluation of progress towards goal: patient is fall risk, no falls this shift. Continue to monitor Problem: Pain Goal: Patient goal is pain score less than 4, able to rest, and participant in treatment plan as appropriate Description: INTERVENTIONS: 1. Encourage patient or legal in store representative to report early pain and ask for pain medicine when needed 2. Assess pain using appropriate pain scale and include the scale used when documenting 3. Administer analgesics based on type and severity of pain and evaluate response within appropriate time frame 4. Implement non-pharmacological measures as appropriate and evaluate response 5. Consider cultural and social influences on pain and pain management 6. Notify LIP if interventions ineffective or patient reports new pain 7. Monitor vital signs including pulse ox, end-tidal CO2 based on pain intervention 8. Reassess pain per policy 9. Teach patient or legal in store representative interventions for comforting Outcome: Progressing Note: Evaluation of progress towards goal: Encourage patient to report early pain and ask for pain medicine when needed Assess pain using appropriate pain scale and include the scale used when documenting Administer analgesics based on type and severity of pain and evaluate response within appropriate time frame Implement non-pharmacological measures as appropriate and evaluate response 5. Consider cultural and social influences on pain and pain management Monitor vital signs including pulse ox, Reassess pain per policy Problem: Safety Goal: Patient will be injury free during hospitalization Description: INTERVENTIONS: 1. Assess patient's risk for falls and implement fall prevention plan of care per policy 2. Provide and maintain a safe environment 3. Proper use of double Identifiers 4. Medication administration using the 5 rights 5. Hand hygiene 6. Specimens are labeled at the bedside 7. Instruct patient/ patient in store representative about use of safety devices 8. Include patient/ patient in store representative in decisions related to safety Outcome: Progressing Note: Evaluation of progress towards goal: Assess patient's risk for falls and implement fall prevention plan of care per policy Provide and maintain a safe environment Proper use of double Identifiers Medication administration using the 5 rights Hand hygiene Specimens are labeled at the bedside Problem: Infection Goal: Absence of infection during hospitalization Description: Interventions: 1. Assess and monitor for signs and symptoms of infection 2. Monitor lab/diagnostic results 3. Monitor all insertion sites i.e., indwelling lines, tubes and drains 4. Monitor endotracheal (as able) and nasal secretions for changes in amount and color 5. Administer medications as ordered 6. Instruct and encourage patient and family to use good hand hygiene technique 7. Identify and instruct patient/patient in store representative in use of appropriate isolation precautions for identified infection/symptoms 8. Provide and discuss with patient/patient in store representative on educational MDRO sheet 9. Encourage and monitor nutritional status daily and consult operations welder if indicated 10. Implement neutropenic guidelines as needed 11. Review exposure to history of communicable disease and recent travel history on admission 12. Encourage annual influenza vaccine 13. Encourage pneumonia vaccine Outcome: Progressing Note: Evaluation of progress towards goal: Assess and monitor for signs and symptoms of infection . Monitor lab/diagnostic results Monitor all insertion sites Administer medications as ordered Instruct and encourage patient and family to use good hand hygiene technique Problem: Knowledge Deficit Goal: Patient/patient in store representative demonstrates understanding of disease process, treatment plan, medications, and discharge instructions Description: INTERVENTIONS 1. Complete learning assessment and assess knowledge base 2. Provide teaching at level of understanding 3. Provide teaching via preferred learning method(s) Outcome: Progressing Note: Evaluation of progress towards goal: Will cont to update pt on POC Problem: Discharge Planning Goal: Discharge to post-acute care, other facility, or home with appropriate resources Description: Patient's goal is: INTERVENTIONS 1. Conduct assessment to determine patient/family and health care team treatment goals, and need for post-acute services based on payer coverage, community resources, and patient preferences, and barriers to discharge 2. Coordinate with Social work, Care Navigation, and Utilization Review to arrange appropriate level of services according to patient's needs based on patient preference and payer coverage in collaboration with the physician and health care team 3. Address psychosocial, clinical, and financial barriers to discharge as identified in assessment in conjunction with the patient/family and health care team 4. Consult appropriate ancillary services (i.e.. PT/OT/ST, etc) as needed 5. Communicate with and update the patient/family, physician, and health care team regarding progress on the discharge plan 6. Identify discharge learning needs (meds, wound care, etc). 7. Arrange for needed discharge transportation as appropriate Outcome: Progressing Note: Evaluation of progress towards goal: Problem: Glucose Imbalance Goal: Clinical indication of glucose balance is achieved Description: Patient's goal is: INTERVENTIONS 1. Monitor blood glucose levels as ordered 2. Administer medications as ordered 3. Notify physician of ineffective treatment plan Outcome: Progressing Note: Evaluation of progress towards goal: Goal: Patient's discharge needs are met Description: Patient's goal is: INTERVENTIONS 1. Assess patient for self-management skills 2. Encourage participation in diabetes management 3. Identify potential discharge barriers on admission and throughout hospital stay 4. Involve patient/S.O. in discharge planning process 5. Communicate referral to simulation educator as appropriate 6. Communicate referral to operations welder as appropriate 7. Collaborate with case management/social science instructor for discharge needs Outcome: Progressing Note: Evaluation of progress towards goal: Problem: Moderate - High Risk Fall Score Description: Mckeon Fall Score of =/> 25 or indicated by [facility] Assessment Goal: Patient should be free from fall Description: Interventions: 1. [place] to environment 2. Hourly rounds addressing the 4 P's (Pain, Positioning, Possessions, Potty) 3. Clear area of hazards (spills, clutter, electrical cords, unnecessary equipment) 4. Place equipment (bed & TV controls, call light, phone, urinal) within reach 5. Encourage patient to wear glasses and hearing aides as appropriate 6. Maintain bed in lowest position 7. Lock wheels on bed/wheelchair 8. Provide adequate lighting, including night light 9. Assess need for additional bedding, food/fluids, pain med's prior to sleep/routinely 10. Provide gripper slippers or personal non-skid footwear 11. Teach patient and patient in store representative to maintain environment for safety and engage in all aspects of fall prevention program 12. Remind patient to call for help before getting out of bed 13. Initiate bed/chair/exit alarms supportive devices as appropriate, (chair wedge, no-skid floor mat, raised edge mattress, hip protectors) 14. Locate patient bed assignment for optimal visualization 15. Evaluate and identify Safe Patient Handling Equipment needs 16. Provide supervision when out of bed or chair 17. Utilize gait belt as needed to assist with ambulation 18. Place adaptive equipment (cane, walker) within reach 19. Request patient in store representative bring adaptive equipment/mobility aids from home or obtain and provide as needed 20. Consult pharmacy regarding effects of med's affecting mobility, cognition, and alternatives 21. Obtain physician order for PT if risk factors associated with mobility are present 22. Obtain physician order for OT as appropriate 23. Utilize diversional activities 24. Educate patient and patient in store representative how to maintain a safe environment during visitation times (notify nurse prior to leaving bedside) 25. Consider appropriateness of medical or non-medical advisor 26. Set up voiding schedule as appropriate (every 2 hours) Outcome: Progressing Note: Evaluation of progress towards goal: Problem: Low Risk Fall Score Description: Mckeon Fall Score of 0 - 24 or indicated by [facility] Assessment Goal: Patient should be free from fall Description: Interventions: 1. [place] to environment 2. Hourly rounds addressing the 4 P's (Pain, Positioning, Possessions, Potty) 3. Clear area of hazards (spills, clutter, electrical cords, unnecessary equipment) 4. Place equipment (bed & TV controls, call light, phone, urinal) within reach 5. Encourage patient to wear glasses and hearing aides as appropriate 6. Maintain bed in lowest position 7. Lock wheels on bed/wheelchair 8. Provide adequate lighting, including night light 9. Assess need for additional bedding, food/fluids, pain med's prior to sleep/routinely 10. Provide gripper slippers or personal non-skid footwear 11. Teach patient and patient in store representative to maintain environment for safety and engage in all aspects of fall prevention program Outcome: Progressing Note: Evaluation of progress towards goal: [place] to environment Hourly rounds addressing the 4 P's Clear area of hazards Place equipment within reach Maintain bed in lowest position Lock wheels on bed/wheelchair Problem: Pain Goal: Patient goal is pain score less than 4, able to rest, and participant in treatment plan as appropriate Description: INTERVENTIONS: 1. Encourage patient or legal in store representative to report early pain and ask for pain medicine when needed 2. Assess pain using appropriate pain scale and include the scale used when documenting 3. Administer analgesics based on type and severity of pain and evaluate response within appropriate time frame 4. Implement non-pharmacological measures as appropriate and evaluate response 5. Consider cultural and social influences on pain and pain management 6. Notify LIP if interventions ineffective or patient reports new pain 7. Monitor vital signs including pulse ox, end-tidal CO2 based on pain intervention 8. Reassess pain per policy 9. Teach patient or legal in store representative interventions for comforting Outcome: Progressing Note: Evaluation of progress towards goal: patient educated on pain scale and acceptable pain level for patient. Prn medication discussed. Problem: Safety Goal: Patient will be injury free during hospitalization Description: INTERVENTIONS: 1. Assess patient's risk for falls and implement fall prevention plan of care per policy 2. Provide and maintain a safe environment 3. Proper use of double Identifiers 4. Medication administration using the 5 rights 5. Hand hygiene 6. Specimens are labeled at the bedside 7. Instruct patient/ patient in store representative about use of safety devices 8. Include patient/ patient in store representative in decisions related to safety Outcome: Progressing Note: Evaluation of progress towards goal: patient educated on use of call light for assistance. Non slip socks on for safety. Call light within reach. documented in this encounter [employer] 02-05-2024 Plan of care note Problem: Pain Goal: Patient goal is pain score less than 4, able to rest, and participant in treatment plan as appropriate Description: INTERVENTIONS: 1. Encourage patient or legal in store representative to report early pain and ask for pain medicine when needed 2. Assess pain using appropriate pain scale and include the scale used when documenting 3. Administer analgesics based on type and severity of pain and evaluate response within appropriate time frame 4. Implement non-pharmacological measures as appropriate and evaluate response 5. Consider cultural and social influences on pain and pain management 6. Notify LIP if interventions ineffective or patient reports new pain 7. Monitor vital signs including pulse ox, end-tidal CO2 based on pain intervention 8. Reassess pain per policy 9. Teach patient or legal in store representative interventions for comforting Outcome: Progressing Note: Evaluation of progress towards goal: patient comfort maintained, will continue to assess Problem: Safety Goal: Patient will be injury free during hospitalization Description: INTERVENTIONS: 1. Assess patient's risk for falls and implement fall prevention plan of care per policy 2. Provide and maintain a safe environment 3. Proper use of double Identifiers 4. Medication administration using the 5 rights 5. Hand hygiene 6. Specimens are labeled at the bedside 7. Instruct patient/ patient in store representative about use of safety devices 8. Include patient/ patient in store representative in decisions related to safety Outcome: Progressing Note: Evaluation of progress towards goal: Patient free from injury, will continue to provide a clean environment, personal objects in reach, and a well light room Problem: Knowledge Deficit Goal: Patient/patient in store representative demonstrates understanding of disease process, treatment plan, medications, and discharge instructions Description: INTERVENTIONS 1. Complete learning assessment and assess knowledge base 2. Provide teaching at level of understanding 3. Provide teaching via preferred learning method(s) Outcome: Progressing Note: Evaluation of progress towards goal: Patient kept updated on plan of care, will continue to keep updated as new information arises [facility] 02-05-2024 Progress note Formatting of t his note might be different from the original. DISCHARGE PLANNING NOTE Follow-up Discharge Planning Progress Note Per RN during discharge transition rounds, barriers to discharge are: Pain. S/p LP Discharge Plan: Home with supportive mother. [facility] tasked to arrange hospital follow up with PCP office. 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 Secondary Discharge Diagnosis N/A Discharge Disposition Home Code Status at Discharge: Full Active Issues Requiring Follow-up Issue: Hospitalization Responsible Individual: Patient What is Needed: Follow up with PCP Follow-up Appointments Arranged: No Issue: R Lopez's palsy, hemiplegic migraine Responsible Individual: Neurology staff and patient What is Needed: Follow up with neurology Follow-up Appointments Arranged: Yes Outpatient Follow-Up Future Appointments Date Time Provider Department Center 02/05/2024 9:00 AM TTH IR LAB2 TTH IR TTH 03/14/2024 10:30 AM Pasquale Alexander PA-C [facility] 2 03/18/2024 9:30 AM PARRIS Wyatt DMO OP DIAB [facility] 04/02/2024 9:30 AM Sherman Calle MD [facility] RHEUMA [facility] 07/03/2024 9:00 AM Tuyet Warren MD PFO MED ONC PFO Test Results Pending at Discharge Pending Labs Order Current Status CSF IgG Index Profile In process Myelin Oligodendrocyte Glycoprotein (MOG-IgG1) In process NMO/AQP4 FACS, Serum In process DETAILS OF HOSPITAL STAY Presenting Problem/History of Present Illness Lupus (systemic lupus erythematosus) ([facility]) [M32.9] Headache [R51.9] Blanca Rudolph is a 33 y.o. year old L handed female who was admitted to inpatient Neurology for chief complaint of right sided headache, right Lopez's palsy and progressively worsening right sided sensation changes. She reports that about a week ago she cracked her neck and developed right sided neck pain and mild facial droop. She visited the ED and was told she had an ear infection and was started on Clindamycin and given flexeril for muscle spasms, then discharged. After discharge, her facial droop worsened so she returned to the ED. 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 Her symptoms progressed over the weekend and into this week. She has been having constant right neck pressure pain radiating to her right shinto without exacerbating or remitting factors and associated photophobia, phonophobia, right face and body abnormal sensation, intermittent right vision blurring and diplopia and right sided warm sensation. She reports this is different from prior migraines that are well controlled with Elavil which are usually bilateral, fluctuate with the weather and have intermittent bilateral vision blurring. She has never had similar symptoms before. She had followed up with ENT on 01/29 who did not identify ear infection but told her to complete antibiotics. Due to the abnormal sensations, she was told to follow with neurologist JASWANT Shipman, but she does not have an appointment until February so she returned to [place] ED. She had MRI brain done which showed subtle optic nerve sheath engorgement, flattened pituitary and possible DWI changes in superior convexities versus bone artifact on personal review. She received Tylenol and morphine for headache without relief. 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 Hospital Course On admission, she had CTA H and CTV H which were unremarkable for vascular abnormality, but re demonstrated similar suggestive findings of IIH as MRI brain. Home Xarelto was held for planned LP. LP attempted 01/31 at bedside but unsuccessful. Heparin infusion was started while awaiting IR guided LP. She continued to have fluctuating symptoms of headache, vision changes in right eye, and right sided abnormal sensations despite migraine cocktail and one time Solumedrol dose. She had MRA head and carotid dopplers which were unremarkable, MRI C spine showed mild DJD without spinal cord changes and minimal neuroforaminal changes. Ophthalmology had been consulted and did not see any abnormalities on fundoscopic exam. IR guided LP on 02/04 showed OP 20 cm H2O (which is falsely elevated due to being placed prone), 16 mL fluid removed without significant change in symptoms and only acute low back pain at puncture site. On day of discharge, her right sided sensation had normalized and headache and vision changes had progressively improved with time. Suspect that headache and vision changes are related to Lopez's palsy versus new hemiplegic migraine. Operative Procedures Performed Treatments: analgesia: acetaminophen Consults: IR , ophthalmology. Procedures: lumbar puncture Pertinent Test Results: MRI brain with and without contrast 01/31/24: mild optic nerve sheath engorgement bilaterally, flattened pituitary, subtle DWI changes superiorly and caudal L>R secondary to calcifications seen on CTA/CTV head CTA/CTV H: stenotic R transverse sinus, flattened pituitary, no acute vascular findings MRI C spine with and without contrast 02/03/24: minimal DJD, mild C4-C5 neuroforaminal narrowing MRA head: unremarkable Carotid dopplers: negative Physical Exam at Discharge Discharge Condition: good Pulse: 80 Resp: 18 BP: 106/65 Temp: 36.9 C (98.4 F) Weight: 125.5 kg (276 lb 10.8 oz) General: Normotensive, in no acute distress. Cardiac Examination: Heart: RRR Neurological Examination: Higher Mental Function: Orientated to time, place, person Language intact Fund of knowledge appropriate Ophthalmological Examination: Clear conjunctiva, no cataracts. Cranial Nerve Examination: II: Normal tracking, no evidence of hemianopia or other visual field defect. III, IV, & : EOM intact, no ptosis, no nystagmus seen. Pupils are equal and reactive to light. V: Facial sensation is abnormal on the right VII: mild right facial droop with forehead involvement (Lopez's palsy) VIII: hyperacusis on the right to finger rubbing IX-X: Palate elevates in the midline. XI: Normal trapezius strength and/or movement. XII: Tongue movement is normal, position is midline and no fasciculations are observed. Tongue strength intact. Motor: 5/5 strength throughout Sensory examination:Intact to light touch sensation equally bilaterally Cerebellar: Able to do [id number] bilaterally; normal coordination Your medication list START taking these medications Instructions Last Dose Given Next Dose Due lidocaine 5 % Commonly known as: LIDODERM Start taking on: February 06, 2024 Place 1 patch on the skin in the morning. Remove & Discard patch within 12 hours or as directed by MD. CHANGE how you take these medications Instructions Last Dose Given Next Dose Due bumetanide 2 mg tablet Commonly known as: BUMEX What changed: See the new instructions. take 1 and 1/2 tablets by mouth twice a day before meals CONTINUE taking these medications Instructions Last Dose Given Next Dose Due acetaminophen 325 mg tablet Commonly known as: TylenoL Take 2 tablets (650 mg total) by mouth every 6 (six) hours as needed for pain. allopurinoL 100 mg tablet Commonly known as: ZYLOPRIM amitriptyline 50 mg tablet Commonly known as: ELAVIL Take 1 tablet (50 mg total) by mouth nightly. Take1 tablets (50 mg) nightly aspirin 81 mg blood pressure monitor kit TAKE B/P 2-3 TIMES PER WEEK carvediloL 6.25 mg tablet Commonly known as: COREG Take 1 tablet (6.25 mg total) by mouth in the morning and 1 tablet (6.25 mg total) before bedtime. cholecalciferol 50,000 units capsule Commonly known as: VITAMIN D3 cyanocobalamin 1000 MCG tablet cyclobenzaprine 10 mg tablet Commonly known as: FLEXERIL Take 1 tablet (10 mg total) by mouth 2 (two) times a day as needed for muscle spasms. DESCOVY 200-25 mg per tablet Generic drug: emtricitabine-tenofovir alafen dicyclomine 10 mg capsule Commonly known as: BENTYL ergocalciferol 1,250 mcg (50,000 unit) capsule Commonly known as: DRISDOL famotidine 20 mg tablet Commonly known as: PEPCID Take 1 tablet (20 mg total) by mouth in the morning. ferrous sulfate 325 (65 FE) mg tablet Commonly known as: FerrouSuL Take 1 tablet (325 mg total) by mouth daily with breakfast. ketoconazole 2 % shampoo Commonly known as: NIZORAL magnesium oxide 400 mg tablet Commonly known as: MAGOX MURINE EAR 6.5 % otic solution Generic drug: carbamide peroxide mycophenolate 500 mg tablet Commonly known as: CELLCEPT 3 tab twice daily nitrofurantoin 50 mg capsule Commonly known as: MACRODANTIN potassium chloride 20 MEQ CR tablet Commonly known as: KLOR-CON M 20 Take 1 tablet (20 mEq total) by mouth in the morning and 1 tablet (20 mEq total) before bedtime. predniSONE 5 mg tablet Commonly known as: DELTASONE 1.5 TAB FOR 2 WEEKS,THEN 1 TAB DAILY voclosporin 7.9 mg capsule Take 23.7 mg by mouth in the morning and 23.7 mg before bedtime. XARELTO 20 mg tablet tablet Generic drug: rivaroxaban Take 1 tablet (20 mg total) by mouth in the morning. STOP taking these medications acyclovir 400 mg tablet Commonly known as: ZOVIRAX clindamycin 150 mg capsule Commonly known as: CLEOCIN ASK your doctor about these medications Instructions Last Dose Given Next Dose Due albuterol 90 mcg/actuation inhaler Commonly known as: PROVENTIL HFA;VENTOLIN HFA Inhale 2 puffs every 6 (six) hours as needed for wheezing. Where to Get Your Medications These medications were sent to [facility] [id number] - [place], [place] - [address] [facility] [id number] lidocaine 5 % Pat Hawk MD PGY-3 Neurology Resident [facility] Associated attestation - Sergio Kovacs MD - 02/05/2024 1:19 PM EDT Attending Attestation: I saw the patient. I participated and was physically present during the critical/nuno portions of the service. I was directly involved in the management and treatment plan of the patient. I reviewed the resident's note. Additional Notes/Findings: Patient with CURRY I/s/o new Lopez's palsy, as well as patience-sensory deficits which resolved over the course of her admission. MRI was initially concerning for increased intracranial pressure, but ophtho exam and LP were reassuring. On my exam, the patient never demonstrated true right sided weakness and instead had only breakaway. By the day of discharge, she had LMN R facial weakness (mild), full strength in the limbs, and near-normal R arm and R leg sensation ( 90-100% of normal ). Overall I suspect that the patient's CURRY may have been triggered by her Lopez's Palsy, which may have resulted in the migraine phenomenon of hemibody sensory symptoms. Given that I noted only breakaway weakness on my exams, I would not label this as hemiplegic migraine at this time. Patient to follow up in neurology clinic. Remainder of plan per excellent resident note. documented in this encounter [employer] 02-05-2024 Nurse Note To room in no apparent distress and report ph[facility] floor [facility] 02-05-2024 Note Pre-procedure diagnosis: See history below Post-procedure diagnosis: Same as above Assistants/resident: See the technologist's notes above Consent/pre-procedure evaluation: See below. [place] protocol timeout verification performed. Estimated blood loss: Less than 10 mL Procedure/complications: See below Radiation dosage measurements: See below and see technologist's notes above Conscious sedation: If conscious sedation was administered, preprocedure evaluation for conscious sedation was performed and documented. History: Needs CSF. Headaches. Visual problems. MR interpretation was suspicious for idiopathic intracranial hypertension Procedure: after explanation of the procedure, indications, benefits, risks, and alternatives to fluoroscopically-guided lumbar puncture to the patient, the patient gave consent. The risks of the procedure included bleeding, infection, allergic reaction, nerve damage, pain, and headache requiring epidural blood patch. The back was prepped and draped using sterile barrier technique. 1% xylocaine was given for local anesthesia. 1 digital images, 5 mGy air kerma radiation, and 0.1 minutes of fluoroscopy time were utilized. After placement of a 20-gauge needle into the lumbar subarachnoid space, 16 ml of clear, colorless CSF were collected and sent for the indicated studies. Digital spot radiograph was obtained. 20 cm water was the opening pressure. There was no immediate complication from the procedure Impression: fluoroscopically-guided lumbar puncture without immediate complication. Finalized by Alphonso Youngblood MD on 02/05/2024 10:27 AM [facility] 02-05-2024 Note IR SPINAL PUNCTURE L UMBAR DIAGNOSTIC Pre-procedure diagnosis: See history below Post-procedure diagnosis: Same as above Assistants/resident: See the technologist's notes above Consent/pre-procedure evaluation: See below. [place] protocol timeout verification performed. Estimated blood loss: Less than 10 mL Procedure/complications: See below Radiation dosage measurements: See below and see technologist's notes above Conscious sedation: If conscious sedation was administered, preprocedure evaluation for conscious sedation was performed and documented. History: Needs CSF. Headaches. Visual problems. MR interpretation was suspicious for idiopathic intracranial hypertension Procedure: after explanation of the procedure, indications, benefits, risks, and alternatives to fluoroscopically-guided lumbar puncture to the patient, the patient gave consent. The risks of the procedure included bleeding, infection, allergic reaction, nerve damage, pain, and headache requiring epidural blood patch. The back was prepped and draped using sterile barrier technique. 1% xylocaine was given for local anesthesia. 1 digital images, 5 mGy air kerma radiation, and 0.1 minutes of fluoroscopy time were utilized. After placement of a 20-gauge needle into the lumbar subarachnoid space, 16 ml of clear, colorless CSF were collected and sent for the indicated studies. Digital spot radiograph was obtained. 20 cm water was the opening pressure. There was no immediate complication from the procedure Impression: fluoroscopically-guided lumbar puncture without immediate complication. Finalized by Alphonso Youngblood MD on 02/05/2024 10:27 AM [facility] 02-05-2024 Nurse Note Received post-op and pt lays flat until 1100 and POC discussed. fmonitoring [facility] 02-05-2024 Nurse Note Received to IRR pre-op and POC discussed [facility] 02-04-2024 Plan of care note Problem: Pain Goal: Patient goal is pain score less than 4, able to rest, and participant in treatment plan as appropriate Description: INTERVENTIONS: 1. Encourage patient or legal in store representative to report early pain and ask for pain medicine when needed 2. Assess pain using appropriate pain scale and include the scale used when documenting 3. Administer analgesics based on type and severity of pain and evaluate response within appropriate time frame 4. Implement non-pharmacological measures as appropriate and evaluate response 5. Consider cultural and social influences on pain and pain management 6. Notify LIP if interventions ineffective or patient reports new pain 7. Monitor vital signs including pulse ox, end-tidal CO2 based on pain intervention 8. Reassess pain per policy 9. Teach patient or legal in store representative interventions for comforting Outcome: Progressing Note: Evaluation of progress towards goal: rates headache pain 4 on scale 0-10; declines migraine cocktail at this time Problem: Safety Goal: Patient will be injury free during hospitalization Description: INTERVENTIONS: 1. Assess patient's risk for falls and implement fall prevention plan of care per policy 2. Provide and maintain a safe environment 3. Proper use of double Identifiers 4. Medication administration using the 5 rights 5. Hand hygiene 6. Specimens are labeled at the bedside 7. Instruct patient/ patient in store representative about use of safety devices 8. Include patient/ patient in store representative in decisions related to safety Outcome: Progressing Note: Evaluation of progress towards goal: Patient free from injury; bed to low position; skid free socks applied; call light in reach Problem: Knowledge Deficit Goal: Patient/patient in store representative demonstrates understanding of disease process, treatment plan, medications, and discharge instructions Description: INTERVENTIONS 1. Complete learning assessment and assess knowledge base 2. Provide teaching at level of understanding 3. Provide teaching via preferred learning method(s) Outcome: Progressing Note: Evaluation of progress towards goal: Patient verbalizes understanding of POC Problem: Neurological Deficit Goal: Neurological status is stable or improving Description: Patient's goal is: INTERVENTIONS 1. Complete Neurological assessment as indicated/ordered 2. Initiate measures to prevent increased intracranial pressure 3. Monitor and assess patient's level of consciousness, motor function, sensory function, and level of assistance needed for ADLs 4. Monitor and report changes from baseline 5. Maintain blood pressure and fluid volume within ordered parameters to optimize cerebral perfusion and minimize risk of hemorrhage 6. Monitor labs and diagnostic tests 7. Administer anti-seizure medications as ordered 8. Maintain airway, patient safety and administer oxygen as ordered 9. Monitor patient for seizure activity, document and report duration and description of seizure to LIP 10. If seizure occurs, turn patient to side and suction secretions as needed 11. Reorient patient post seizure 12. Seizure pads on all 4 side rails 13. Instruct patient/family to notify RN of any seizure activity 14. Instruct patient/family to call for assistance with activity based on assessment 15. Utilize bleeding precautions if thrombolytic given Outcome: Progressing Note: Evaluation of progress towards goal: right facial droop continues; previous numbness to right arm and face has resolved [facility] [employer] 02-04-2024 Progress note Formatting of t his note might be different from the original. DISCHARGE PLANNING NOTE Case discussed in daily transition rounds and chart reviewed by CN. Barriers to discharge include migraine cocktail, IR guided LP 02/04, heparin gtt Discharge Plan remains: home with self care/family assistance. Patient transferred from [facility] and was seen by care navigation. Patient is planning to transition home with self care/family assistance as needed at discharge. Family will transport patient home at discharge. CN will continue to follow and is available should any further needs arise. - LORI RASCON 02/04/24 3:23 PM [facility] 02-04-2024 Consult note Associated Order (s): IP CONSULT TO OPHTHALMOLOGY Date: Reason for consult: I have been asked to evaluate the eyes of this 33-year-old lady for any ocular evidence of clear-cut pathology that may be associated with idiopathic intracranial hypertension. She indicates that she has had blurry vision in the right eye and has had Intermittent transient monocular double vision with the right eye. The double vision has not been associated with any precipitating aggravating or relieving factors. She has recently been diagnosed with right Lopez's palsy. She has a history of managed headaches rated at this time at /10. She denies any light flashes or floaters. She has noticed mild photophobia. Chief Complaint: Headache and right-sided weakness Interval History: Blanca Rudolph is a 33 y.o. year old L handed female who was admitted to inpatient Neurology for chief complaint of right sided headache, right Lopez's palsy, right sided abnormal sensation of body and face, intermittent right eye visual changes without remitting or exacerbating factors and progressively over one week after cracking her neck. She was initially evaluated in outside ED, diagnosed with ear infection and given antibiotics. Then returned same day because symptoms progressed, diagnosed with lopez's palsy, started on acyclovir. Then a week later she followed with ENT for ear infection, no infection found, told to see neurology for ongiong abnormal sensaiton involving body then returned to ED in [place]. CTH unremarkable, MRI brain with findings suggestive of IIH, then transferred to [facility] for further evaluation. CTA H and CTV H no acute findings, similar findings suggesting IIH. Symptoms of headache and right sided sensation abnormality fluctuating. Bedside LP failed 01/31. MRI C spine, MRA head and carotid dopplers unremarkable. 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 Patient communicates appropriately & oriented to self space & time. Examination: Vision: OD 20/ 20, OS 20/ 20 Counts Fingers accurately Light perception with Projection Physical Exam External: : Normal Lids: Right: Normal position. No Ptosis. 1+ mild orbicularis weakness. No lagophthalmos noted. Left: Normal No ptosis Extra Ocular Movements: Right: Full No restrictions. No strabismus No nystagmus Left: Full No restrictions No strabismus. No nystagmus. Orbits: OD: Intact orbital rim.: OS: Intact Orbital rim: Right: Cr N 2- 6 Normal. 1+ right facial nerve paresis/Weakness. Left Cr N 2 -7V2 Normal Visual Becerril: OD Confrontation: Full : OS: Confrontation:Full Anterior Segment Conjunctiva: : OD: Normal OS: Normal Sclera: : OD: Clear OS: Clear: Cornea: OD Clear . No pathology secondary to exposure keratitis noted on the cornea. OS: Clear : Anterior Chamber: : OD:Deep & Clear OS: Deep & Clear Lens: : OD:Clear OS: Clear: Pupils: OD Size 3mm, Round, Reacts 3+, No affarent defect. OS Size 3mm, Round, Reacts 3+, No affarent defect. Intra Ocular Pressure: OD: mmHg - Tonopen: OD: Normotensive: OS MmHg - [place]open OS: Normotensive Vitreous: Clear OU No Floaters OU. No Hemorrhage OU Fundi: no papilledema OU. Dilated using 2.5% N-Synephrine and 1% Mydriacyl OU Cup/Disc Ratio 0.0 OU. No hemorrhages exudates or edema OU. . [place] sharp margins. OU. Vessels: Normal in size and distribution OU Macula: Normal in appearance OU Retina: Fully attached in all quadrants.OU Retina Periphery: No holes or tears or retina detachment. OU 1. Impression & Recommendations: Essentially normal ophthalmologic examination. Both optic nerve heads showed no evidence of papilledema - Edema exudates or hemorrhages that may be associated with idiopathic intracranial hypertension. No objective evidence of diplopia was noted on this examination. Right facial nerve weakness is noted but no exposure keratitis secondary to lagophthalmos is noted in the cornea of the right eye. Thanks Elder Rehman MD, FACS. [facility] 02-04-2024 Consult note Associated Order (s): IP CONSULT TO OPHTHALMOLOGY Date: Reason for consult: I have been asked to evaluate the eyes of this 33-year-old lady for any ocular evidence of clear-cut pathology that may be associated with idiopathic intracranial hypertension. She indicates that she has had blurry vision in the right eye and has had Intermittent transient monocular double vision with the right eye. The double vision has not been associated with any precipitating aggravating or relieving factors. She has recently been diagnosed with right Lopez's palsy. She has a history of managed headaches rated at this time at 4/10. She denies any light flashes or floaters. She has noticed mild photophobia. Chief Complaint: Headache and right-sided weakness Interval History: Blanca Rudolph is a 33 y.o. year old L handed female who was admitted to inpatient Neurology for chief complaint of right sided headache, right Lopez's palsy, right sided abnormal sensation of body and face, intermittent right eye visual changes without remitting or exacerbating factors and progressively over one week after cracking her neck. She was initially evaluated in outside ED, diagnosed with ear infection and given antibiotics. Then returned same day because symptoms progressed, diagnosed with lopez's palsy, started on acyclovir. Then a week later she followed with ENT for ear infection, no infection found, told to see neurology for ongiong abnormal sensaiton involving body then returned to ED in [place]. CTH unremarkable, MRI brain with findings suggestive of IIH, then transferred to [facility] for further evaluation. CTA H and CTV H no acute findings, similar findings suggesting IIH. Symptoms of headache and right sided sensation abnormality fluctuating. Bedside LP failed 01/31. MRI C spine, MRA head and carotid dopplers unremarkable. 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 Patient communicates appropriately & oriented to self space & time. Examination: Vision: OD 20/ 20, OS 20/ 20 Counts Fingers accurately Light perception with Projection Physical Exam External: : Normal Lids: Right: Normal position. No Ptosis. 1+ mild orbicularis weakness. No lagophthalmos noted. Left: Normal No ptosis Extra Ocular Movements: Right: Full No restrictions. No strabismus No nystagmus Left: Full No restrictions No strabismus. No nystagmus. Orbits: OD: Intact orbital rim.: OS: Intact Orbital rim: Right: Cr N 2- 6 Normal. 1+ right facial nerve paresis/Weakness. Left Cr N 2 -7V2 Normal Visual Becerril: OD Confrontation: Full : OS: Confrontation:Full Anterior Segment Conjunctiva: : OD: Normal OS: Normal Sclera: : OD: Clear OS: Clear: Cornea: OD Clear . No pathology secondary to exposure keratitis noted on the cornea. OS: Clear : Anterior Chamber: : OD:Deep & Clear OS: Deep & Clear Lens: : OD:Clear OS: Clear: Pupils: OD Size 3mm, Round, Reacts 3+, No affarent defect. OS Size 3mm, Round, Reacts 3+, No affarent defect. Intra Ocular Pressure: OD: mmHg - Tonopen: OD: Normotensive: OS MmHg - Tonopen OS: Normotensive Vitreous: Clear OU No Floaters OU. No Hemorrhage OU Fundi: no papilledema OU. Dilated using 2.5% N-Synephrine and 1% Mydriacyl OU Cup/Disc Ratio 0.0 OU. No hemorrhages exudates or edema OU. . [place] sharp margins. OU. Vessels: Normal in size and distribution OU Macula: Normal in appearance OU Retina: Fully attached in all quadrants.OU Retina Periphery: No holes or tears or retina detachment. OU 1. Impression & Recommendations: Essentially normal ophthalmologic examination. Both optic nerve heads showed no evidence of papilledema - Edema exudates or hemorrhages that may be associated with idiopathic intracranial hypertension. No objective evidence of diplopia was noted on this examination. Right facial nerve weakness is noted but no exposure keratitis secondary to lagophthalmos is noted in the cornea of the right eye. Thanks Elder Rehman MD, FACS. documented in this encounter [facility] 02-04-2024 Hospital Discharge instructions Pat Hawk MD - 02/04/2024 1:13 PM EDT Continue follow up with your neurologist as scheduled, JASWANT Shipman. Follow up with your primary care provider in 1-2 weeks since hospitalized. Continue medications as previously prescribed. You can resume taking your Xarelto tonight and take regularly as you previously did. You completed the course of acyclovir and clindamycin and no longer need to take these. Katrin Pena - 02/05/2024 2:47 PM EDT YOUR SCHEDULED APPOINTMENTS Please make note of this in your schedule as to not miss or call to reschedule. Thank you! MEME MCKEON, PSYCHIATRIC NURSING ASSISTANT-RAMP BOSS Nurse Practitioner Family Medicine [phone] [address] [facility] [id number] Next Steps: Go on 02/15/2024 Instructions: 10:30 am (arrive at 10:15 am) Pt. should bring the following to appointment; Discharge paperwork Picture ID, Insurance card, co-pay, and all current medications in their bottles. Please provide a 24 hour notice for cancellation. Failure to do so will result in the practice declining to see pt. in the future. If you have insurance copay you must bring with you to the appointment. Please arrive about 15 minutes prior to appointment for check-in/registration. For NEW PATIENT APPOINTMENTS, please arrive 30 minutes early to complete new patient paperwork. For NEW patients, MD will not prescribe prison pain medication. documented in this encounter [facility] 02-04-2024 Plan of care note Problem: Neurological Deficit Goal: Neurological status is stable or improving Description: Patient's goal is: INTERVENTIONS 1. Complete Neurological assessment as indicated/ordered 2. Initiate measures to prevent increased intracranial pressure 3. Monitor and assess patient's level of consciousness, motor function, sensory function, and level of assistance needed for ADLs 4. Monitor and report changes from baseline 5. Maintain blood pressure and fluid volume within ordered parameters to optimize cerebral perfusion and minimize risk of hemorrhage 6. Monitor labs and diagnostic tests 7. Administer anti-seizure medications as ordered 8. Maintain airway, patient safety and administer oxygen as ordered 9. Monitor patient for seizure activity, document and report duration and description of seizure to LIP 10. If seizure occurs, turn patient to side and suction secretions as needed 11. Reorient patient post seizure 12. Seizure pads on all 4 side rails 13. Instruct patient/family to notify RN of any seizure activity 14. Instruct patient/family to call for assistance with activity based on assessment 15. Utilize bleeding precautions if thrombolytic given Outcome: Progressing Note: Evaluation of progress towards goal: Neurologic status remains stable. Pt noticed an improvement in neuro symptoms. Monitoring and assessments are being performed as ordered by the prescriber. [facility] 02-04-2024 Plan of care note Problem: Pain Goal: Patient goal is pain score less than 4, able to rest, and participant in treatment plan as appropriate Description: INTERVENTIONS: 1. Encourage patient or legal in store representative to report early pain and ask for pain medicine when needed 2. Assess pain using appropriate pain scale and include the scale used when documenting 3. Administer analgesics based on type and severity of pain and evaluate response within appropriate time frame 4. Implement non-pharmacological measures as appropriate and evaluate response 5. Consider cultural and social influences on pain and pain management 6. Notify LIP if interventions ineffective or patient reports new pain 7. Monitor vital signs including pulse ox, end-tidal CO2 based on pain intervention 8. Reassess pain per policy 9. Teach patient or legal in store representative interventions for comforting Outcome: Progressing Note: Evaluation of progress towards goal: Pain is managed to a tolerable level with PRN pain meds and non-pharm interventions, assessments completed, VS monitored, patient encouraged to report pain early, med administration as ordered Problem: Safety Goal: Patient will be injury free during hospitalization Description: INTERVENTIONS: 1. Assess patient's risk for falls and implement fall prevention plan of care per policy 2. Provide and maintain a safe environment 3. Proper use of double Identifiers 4. Medication administration using the 5 rights 5. Hand hygiene 6. Specimens are labeled at the bedside 7. Instruct patient/ patient in store representative about use of safety devices 8. Include patient/ patient in store representative in decisions related to safety Outcome: Progressing Note: Evaluation of progress towards goal: Patient safety is maintained. Patient is free from injury, side rails are up x2, call light is within reach, and bed is in lowest position. Problem: Infection Goal: Absence of infection during hospitalization Description: Interventions: 1. Assess and monitor for signs and symptoms of infection 2. Monitor lab/diagnostic results 3. Monitor all insertion sites i.e., indwelling lines, tubes and drains 4. Monitor endotracheal (as able) and nasal secretions for changes in amount and color 5. Administer medications as ordered 6. Instruct and encourage patient and family to use good hand hygiene technique 7. Identify and instruct patient/patient in store representative in use of appropriate isolation precautions for identified infection/symptoms 8. Provide and discuss with patient/patient in store representative on educational MDRO sheet 9. Encourage and monitor nutritional status daily and consult operations welder if indicated 10. Implement neutropenic guidelines as needed 11. Review exposure to history of communicable disease and recent travel history on admission 12. Encourage annual influenza vaccine 13. Encourage pneumonia vaccine Outcome: Progressing Note: Evaluation of progress towards goal: Handwashing and standard precautions maintained. Patient remains free from infection through shift and has not shown any additional signs of infection at this time. Will continue to educate on infection prevention. Problem: Knowledge Deficit Goal: Patient/patient in store representative demonstrates understanding of disease process, treatment plan, medications, and discharge instructions Description: INTERVENTIONS 1. Complete learning assessment and assess knowledge base 2. Provide teaching at level of understanding 3. Provide teaching via preferred learning method(s) Outcome: Progressing Note: Evaluation of progress towards goal: Patient is included in plan of care. All questions are answered at this time. Will continue to educate. [facility] [employer] 02-04-2024 History of Present illness Narrative Images from the original note were not included. [facility] Neurology General Neurology Primary Progress Note Primary Neurology service: [phone] Chief Complaint: Headache and right-sided weakness Interval History: Blanca Rudolph is a 33 y.o. year old L handed female who was admitted to inpatient Neurology for chief complaint of right sided headache, right Lopez's palsy, right sided abnormal sensation of body and face, intermittent right eye visual changes without remitting or exacerbating factors and progressively over one week after cracking her neck. She was initially evaluated in outside ED, diagnosed with ear infection and given antibiotics. Then returned same day because symptoms progressed, diagnosed with lopez's palsy, started on acyclovir. Then a week later she followed with ENT for ear infection, no infection found, told to see neurology for ongiong abnormal sensaiton involving body then returned to ED in [place]. CTH unremarkable, MRI brain with findings suggestive of IIH, then transferred to [facility] for further evaluation. CTA H and CTV H no acute findings, similar findings suggesting IIH. Symptoms of headache and right sided sensation abnormality fluctuating. Bedside LP failed 01/31. MRI C spine, MRA head and carotid dopplers unremarkable. 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 This morning, she reports her headache seems to be improving, rating 4/10. Vision is also improving in the right eye. Sensation on the right side seems to have normalized. Pertinent past Medical History/Family/Social History reviewed as per initial HPI. Pertinent Systems reviewed as per initial HPI, and negative as below except for mentioned above. Medications: Scheduled Meds: allopurinoL, 100 mg, oral, Daily amitriptyline, 50 mg, oral, Nightly bumetanide, 2 mg, oral, BID carvediloL, 6.25 mg, oral, BID clindamycin, 300 mg, oral, Q8H JOSÉ cyanocobalamin, 1,000 mcg, oral, Daily dicyclomine, 10 mg, oral, 4x Daily emtricitabine-tenofovir alafen, 1 tablet, oral, Daily famotidine, 20 mg, oral, Daily lidocaine, 1 patch, transdermal, Daily magnesium oxide, 400 mg, oral, BID mycophenolate, 1,500 mg, oral, BID potassium chloride, 20 mEq, oral, BID predniSONE, 5 mg, oral, Daily with breakfast sodium chloride, 3 mL, intravenous, Q12H JOSÉ voclosporin, 23.7 mg, oral, BID Continuous Infusions: dextrose 5 % in water, 100 mL/hr heparin, 300-3,500 Units/hr, Last Rate: 1,100 Units/hr (02/03/24 1808) sodium chloride 0.9 %, 20 mL/hr, Last Rate: Stopped (02/03/24 0846) PRN Meds:. dextrose dextrose 5 % in water dextrose 50 % in water (D50W) magnesium sulfate AND diphenhydrAMINE AND prochlorperazine AND [] acetaminophen glucagon (human recombinant) heparin (porcine) sennosides-docusate sodium sodium chloride sodium chloride sodium chloride sodium chloride 0.9 % Physical Exam Vital Signs: Vitals: 02/04/24 0402 BP: 118/67 Pulse: 82 Resp: 18 Temp: 36.6 C (97.9 F) SpO2: 99% General: Normotensive, in no acute distress. Cardiac Examination: Heart: RRR Neurological Examination: Higher Mental Function: Orientated to time, place, person Language intact Fund of knowledge appropriate Ophthalmological Examination: Clear conjunctiva, no cataracts. Cranial Nerve Examination: II: Normal tracking, no evidence of hemianopia or other visual field defect. III, IV, & : EOM intact, no ptosis, no nystagmus seen. Pupils are equal and reactive to light. V: Facial sensation is abnormal on the right with midline splitting to vibration sensation on the right VII: mild right facial droop with forehead involvement (Lopez's palsy) VIII: hyperacusis on the right to finger rubbing IX-X: Palate elevates in the midline. XI: Normal trapezius strength and/or movement. XII: Tongue movement is normal, position is midline and no fasciculations are observed. Tongue strength intact. Motor: Power -- 5/5 R upper and lower extremity, otherwise no focal motor weakness noted in BL upper or lower extremities. Bulk and muscle tone are intact in BL upper and lower extremities. No rigidity or spasticity. No atrophy or abnormal movements noted. No dystonia, or motor tics. No bradykinesia, postural or kinetic tremor noted. No fasciculation or myotonia noted. No abnormal movements noticed. No evidence of pseudo bulbar paralysis; no sialorrhea, difficulties swallowing. Deep Tendon Reflexes: Right, Left: Biceps 2, 2 Brachioradialis 2, 2 Triceps 2, 2 Patellae 2, 2 Achilles 1,1 Sensory examination: right sided mildly decreased light touch sensation to light touch about 90% compared to 100% on the left in upper and lower extremity. Intact vibration sensation throughout. Cerebellar: Able to do [id number] bilaterally; normal coordination Gait and station: Deferred Pertinent Labs: INR 1.4 CBC WNL ESR 2 K+ 3.4 -> 3.7 Cr 1.33 (baseline 1.4-1.7) UDS and EtOH negative UA hyaline casts and moderate hemoglobin 01/27/24: TSH 0.5, T4 0.91 01/01/24: Vit D 44.5, PTH 71, CRP 0.3, C3 138, C4 26, negative chlamydia and gonorrhea, Syphilis total >8.0, RPR with reflex positive, RPR titer 1:4 Imaging: MRI brain with and without contrast 01/31/24: mild optic nerve sheath engorgement bilaterally, flattened pituitary, subtle DWI changes superiorly and caudal L>R secondary to calcifications seen on CTA/CTV head CTA/CTV H: stenotic R transverse sinus, flattened pituitary, no acute vascular findings MRI C spine with and without contrast 02/03/24: minimal DJD, mild C4-C5 neuroforaminal narrowing MRA head: unremarkable Carotid dopplers: negative Assessment: Blanca Rudolph is a 33 yo female with history of lupus on immunosuppression, lupus nephritis with CKD, migraines, and 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 MRI brain, CTA and CTV concerning for IIH. MRI C spine showing mild DJD. MRA head and carotid dopplers unremarkable. Physical exam improving. 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 Will hold heparin at 2 AM. Also ordered routine CSF studies, OCBs, Anti-MOG, Aquaporin-4 antibodies serum and CSF, IgG index CSF. Heparin infusion in place of home Xarelto given upcoming procedure Artificial tear and night eye patch for right eye irritation Continue home medications DVT Ppx- heparin gtt, hold at 2AM 02/04. Will resume home Xarelto when safe post-procedure. GI Ppx Home Pepcid Diet Renal Disposition home Code status Full Pat Hawk MD PGY-3 Neurology Resident [facility] Staffed with: Dr. Kovacs This patient is being followed by the Neurology Resident service. Contact attending directly during these hours: Sunday to 7:30-8:30 A.M. to Sunday 12-1:00 p.m. Primary Neurology service: [phone] Consult neurology service: [phone] Resident Stroke Service: [phone] If the patient belongs to the Stroke [facility] service please contact the Stroke [facility] directly. Associated attestation - Sergio Kovacs MD - 02/04/2024 3:25 PM EDT Attending Attestation: I saw the patient. I participated and was physically present during the critical/nuno portions of the service. I was directly involved in the management and treatment plan of the patient. I reviewed the resident's note. Additional Notes/Findings: None Images from the original note were not included. [facility] Neurology General Neurology Primary Progress Note Primary Neurology service: [phone] Chief Complaint: Headache and right-sided weakness Interval History: Blanca Rudolph is a 33 y.o. year old L handed female who was admitted to inpatient Neurology for chief complaint of right sided headache, right Lopez's palsy, right sided abnormal sensation of body and face, intermittent right eye visual changes without remitting or exacerbating factors and progressively over one week after cracking her neck. She was initially evaluated in outside ED, diagnosed with ear infection and given antibiotics. Then returned same day because symptoms progressed, diagnosed with lopez's palsy, started on acyclovir. Then a week later she followed with ENT for ear infection, no infection found, told to see neurology for ongiong abnormal sensaiton involving body then returned to ED in [place]. CTH unremarkable, MRI brain with findings suggestive of IIH, then transferred to [facility] for further evaluation. CTA H and CTV H no acute findings, similar findings suggesting IIH. 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 Patient reports that her headache has been getting better but still having right frontotemporoparietal 5/10 throbbing headache associated with photophobia. Yesterday she reported her right-sided weakness was getting better but this morning endorses that she still has some weakness over her right upper and lower extremities. Patient denies any other new complaints today. 02/03/2024 No acute events overnight. Headache around a 5/10 today at the right fronto-temporal region. No new complaints otherwise. Pertinent past Medical History/Family/Social History reviewed as per initial HPI. Pertinent Systems reviewed as per initial HPI, and negative as below except for mentioned above. Medications: Scheduled Meds: allopurinoL, 100 mg, oral, Daily amitriptyline, 50 mg, oral, Nightly bumetanide, 2 mg, oral, BID carvediloL, 6.25 mg, oral, BID clindamycin, 300 mg, oral, Q8H JOSÉ cyanocobalamin, 1,000 mcg, oral, Daily dicyclomine, 10 mg, oral, 4x Daily emtricitabine-tenofovir alafen, 1 tablet, oral, Daily famotidine, 20 mg, oral, Daily magnesium oxide, 400 mg, oral, BID mycophenolate, 1,500 mg, oral, BID potassium chloride, 20 mEq, oral, BID predniSONE, 5 mg, oral, Daily with breakfast sodium chloride, 3 mL, intravenous, Q12H JOSÉ voclosporin, 23.7 mg, oral, BID Continuous Infusions: dextrose 5 % in water, 100 mL/hr heparin, 300-3,500 Units/hr, Last Rate: 1,100 Units/hr (02/02/24 6453) sodium chloride 0.9 %, 20 mL/hr, Last Rate: Stopped (02/03/24 0846) PRN Meds:. dextrose dextrose 5 % in water dextrose 50 % in water (D50W) magnesium sulfate AND diphenhydrAMINE AND prochlorperazine AND [] acetaminophen glucagon (human recombinant) heparin (porcine) sennosides-docusate sodium sodium chloride sodium chloride sodium chloride sodium chloride 0.9 % Physical Exam Vital Signs: Vitals: 02/03/24 1139 BP: 143/90 Pulse: 84 Resp: 18 Temp: 37 C (98.6 F) SpO2: 99% General: Normotensive, in no acute distress. Cardiac Examination: Heart: RRR Neurological Examination: Higher Mental Function: Orientated to time, place, person Language intact Fund of knowledge appropriate Ophthalmological Examination: Clear conjunctiva, no cataracts. Cranial Nerve Examination: II: Normal tracking, no evidence of hemianopia or other visual field defect. III, IV, & : EOM intact, no ptosis, no nystagmus seen. Pupils are equal and reactive to light. V: Facial sensation is abnormal on the right with midline splitting to vibration sensation on the right VII: right facial droop with forehead involvement (Loepz's palsy) VIII: hyperacusis on the right to finger rubbing IX-X: Palate elevates in the midline. XI: Normal trapezius strength and/or movement. XII: Tongue movement is normal, position is midline and no fasciculations are observed. Tongue strength intact. Motor: Power -- 5/5 R upper and lower extremity except for giveaway weakness in the bilateral IO muscles and hamstrings, otherwise no focal motor weakness noted in BL upper or lower extremities. Bulk and muscle tone are intact in BL upper and lower extremities. No rigidity or spasticity. No atrophy or abnormal movements noted. No dystonia, or motor tics. No bradykinesia, postural or kinetic tremor noted. No fasciculation or myotonia noted. No abnormal movements noticed. No evidence of pseudo bulbar paralysis; no sialorrhea, difficulties swallowing. Deep Tendon Reflexes: Right, Left: Biceps 2, 2 Brachioradialis 2, 2 Triceps 2, 2 Patellae 2, 2 Achilles 1,1 Sensory examination: Intact to light touch, vibration, and temperature throughout. Cerebellar: Able to do [id number] bilaterally; normal coordination Gait and station: Deferred Pertinent Labs: INR 1.4 CBC WNL ESR 2 K+ 3.4 -> 3.7 Cr 1.33 (baseline 1.4-1.7) UDS and EtOH negative UA hyaline casts and moderate hemoglobin 01/27/24: TSH 0.5, T4 0.91 01/01/24: Vit D 44.5, PTH 71, CRP 0.3, C3 138, C4 26, negative chlamydia and gonorrhea, Syphilis total >8.0, RPR with reflex positive, RPR titer 1:4 Imaging: MRI brain with and without contrast 01/31/24: mild optic nerve sheath engorgement bilaterally, flattened pituitary, subtle DWI changes superiorly and caudal L>R secondary to calcifications seen on CTA/CTV head CTA/CTV H: stenotic R transverse sinus, flattened pituitary, no acute vascular findings Assessment: Blanca Rudolph is a 33 yo female with history of lupus on immunosuppression, lupus nephritis with CKD, migraines, and 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 MRI brain, CTA and CTV concerning for IIH. Physical exam improving. Impression: Migraine and R LMN facial palsy with likely cervicogenic component, unclear etiology, possibly 2/2 Lopez's palsy vs IIH Other: History of DVT and PE (2019) on Xarelto Plan: Migraine cocktail with tylenol abortive Q6 IR guided LP to evaluate opening pressure Heparin infusion in place of home Xarelto given upcoming procedure MRI cervical spine given cervicogenic component and history of neck cracking provoking CURRY MRA head to rule out a arterial vascular abnormality Artificial tear and night eye patch for right eye irritation Continue home medications DVT Ppx- heparin gtt GI Ppx Home Pepcid Diet Renal Disposition likely home Code status Full Eva Amin MD PGY-3 Neurology Resident Staffed with: Dr. Kovacs This patient is being followed by the Neurology Resident service. Contact attending directly during these hours: Sunday to 7:30-8:30 A.M. to Sunday 12-1:00 p.m. Primary Neurology service: [phone] Consult neurology service: [phone] Resident Stroke Service: [phone] If the patient belongs to the Stroke YUSEF service please contact the Stroke YUSEF directly. Associated attestation - Sergio Kovacs MD - 02/03/2024 1:13 PM EDT Attending Attestation: I saw the patient. I participated and was physically present during the critical/nuno portions of the service. I was directly involved in the management and treatment plan of the patient. I reviewed the resident's note. Additional Notes/Findings: None Images from the original note were not included. [facility] Neurology General Neurology Primary Progress Note Primary Neurology service: [phone] Chief Complaint: Headache and right-sided weakness Interval History: Blanca Rudolph is a 33 y.o. year old L handed female who was admitted to inpatient Neurology for chief complaint of right sided headache, right Lopez's palsy, right sided abnormal sensation of body and face, intermittent right eye visual changes without remitting or exacerbating factors and progressively over one week after cracking her neck. She was initially evaluated in outside ED, diagnosed with ear infection and given antibiotics. Then returned same day because symptoms progressed, diagnosed with lopez's palsy, started on acyclovir. Then a week later she followed with ENT for ear infection, no infection found, told to see neurology for ongiong abnormal sensaiton involving body then returned to ED in [place]. CTH unremarkable, MRI brain with findings suggestive of IIH, then transferred to [facility] for further evaluation. CTA H and CTV H no acute findings, similar findings suggesting IIH. 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 Patient reports that her headache has been getting better but still having right frontotemporoparietal 5/10 throbbing headache associated with photophobia. Yesterday she reported her right-sided weakness was getting better but this morning endorses that she still has some weakness over her right upper and lower extremities. Patient denies any other new complaints today. Pertinent past Medical History/Family/Social History reviewed as per initial HPI. Pertinent Systems reviewed as per initial HPI, and negative as below except for mentioned above. Medications: Scheduled Meds: allopurinoL, 100 mg, oral, Daily amitriptyline, 50 mg, oral, Nightly bumetanide, 2 mg, oral, BID carvediloL, 6.25 mg, oral, BID [START ON 02/03/2024] clindamycin, 300 mg, oral, Q8H JOSÉ cyanocobalamin, 1,000 mcg, oral, Daily dicyclomine, 10 mg, oral, 4x Daily emtricitabine-tenofovir alafen, 1 tablet, oral, Daily famotidine, 20 mg, oral, Daily magnesium oxide, 400 mg, oral, BID mycophenolate, 1,500 mg, oral, BID potassium chloride, 20 mEq, oral, BID predniSONE, 5 mg, oral, Daily with breakfast sodium chloride, 3 mL, intravenous, Q12H JOSÉ voclosporin, 23.7 mg, oral, BID Continuous Infusions: dextrose 5 % in water, 100 mL/hr heparin, 300-3,500 Units/hr, Last Rate: 1,100 Units/hr (02/02/24 0212) sodium chloride 0.9 %, 20 mL/hr PRN Meds:. magnesium sulfate AND diphenhydrAMINE AND prochlorperazine AND acetaminophen dextrose dextrose 5 % in water dextrose 50 % in water (D50W) glucagon (human recombinant) heparin (porcine) sennosides-docusate sodium sodium chloride sodium chloride sodium chloride sodium chloride 0.9 % Physical Exam Vital Signs: Vitals: 02/02/24 0448 BP: 141/62 Pulse: 88 Resp: 18 Temp: 36.3 C (97.4 F) SpO2: 94% General: Normotensive, in no acute distress. Cardiac Examination: Heart: RRR Neurological Examination: Higher Mental Function: Orientated to time, place, person Language intact Fund of knowledge appropriate Ophthalmological Examination: Clear conjunctiva, no cataracts. Cranial Nerve Examination: II: Normal tracking, no evidence of hemianopia or other visual field defect. III, IV, & : EOM intact, no ptosis, no nystagmus seen. Pupils are equal and reactive to light. V: Facial sensation is abnormal on the right with midline splitting to vibration sensation on the right VII: right peripheral weakness (Lopez's palsy) VIII: hyperacusis on the right to finger rubbing IX-X: Palate elevates in the midline. XI: Normal trapezius strength and/or movement. XII: Tongue movement is normal, position is midline and no fasciculations are observed. Tongue strength intact. Motor: Power -- 4+/5 R upper and lower extremity, otherwise no focal motor weakness noted in BL upper or lower extremities. Bulk and muscle tone are intact in BL upper and lower extremities. No rigidity or spasticity. No atrophy or abnormal movements noted. No dystonia, or motor tics. No bradykinesia, postural or kinetic tremor noted. No fasciculation or myotonia noted. No abnormal movements noticed. No evidence of pseudo bulbar paralysis; no sialorrhea, difficulties swallowing. Deep Tendon Reflexes: Right, Left: Biceps 2, 2 Brachioradialis 2, 2 Triceps 2, 2 Patellae 2, 2 Achilles 1,1 Sensory examination: Mild light touch deficit over right face, upper and lower extremities, otherwise Intact to light touch, vibration, and temperature throughout. Cerebellar: Able to do [id number] bilaterally; normal coordination Gait and station: Deferred Pertinent Labs: INR 1.4 CBC WNL ESR 2 K+ 3.4 -> 3.7 Cr 1.33 (baseline 1.4-1.7) UDS and EtOH negative UA hyaline casts and moderate hemoglobin 01/27/24: TSH 0.5, T4 0.91 01/01/24: Vit D 44.5, PTH 71, CRP 0.3, C3 138, C4 26, negative chlamydia and gonorrhea, Syphilis total >8.0, RPR with reflex positive, RPR titer 1:4 Imaging: MRI brain with and without contrast 01/31/24: mild optic nerve sheath engorgement bilaterally, flattened pituitary, subtle DWI changes superiorly and caudal L>R secondary to calcifications seen on CTA/CTV head CTA/CTV H: stenotic R transverse sinus, flattened pituitary, no acute vascular findings Assessment: Blanca Rudolph is a 33 yo female with history of lupus on immunosuppression, lupus nephritis with CKD, migraines, and 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 MRI brain, CTA and CTV concerning for IIH. Physical exam improving. Impression: Completed migraine vs IIH R LMN type facial palsy likely Lopez's palsy Plan: Admitted to Neurology step-down Bedside LP failed, plan for IR guided LP with opening pressure Holding home Xarelto and ASA, started on heparin infusion Artificial tear and night eye patch for right eye irritation Migraine cocktail q6h prn Continue home medications Will follow-up MRA head, MRI cervical spine, and BL carotid Doppler DVT Ppx- heparin gtt GI Ppx Home Pepcid Diet Renal Disposition likely home Code status Full Luis Delarosa MD Neurology Resident, [facility] Please contact via secure chat Staffed with: (Dr. Kovacs) This patient is being followed by the Neurology Resident service. Contact attending directly during these hours: Sunday to 7:30-8:30 A.M. to Sunday 12-1:00 p.m. Primary Neurology service: [phone] Consult neurology service: [phone] Resident Stroke Service: [phone] If the patient belongs to the Stroke YUSEF service please contact the Stroke YUSEF directly. Associated attestation - Sergio Kovacs MD - 02/02/2024 5:18 PM EDT Attending Attestation: I saw the patient. I participated and was physically present during the critical/nuno portions of the service. I was directly involved in the management and treatment plan of the patient. I reviewed the resident's note. Additional Notes/Findings: Exam today with LMN R facial weakness, some breakaway in the right IO and hams, and LT reduced to ~70% of normal in the RUE and RLE. Biceps hyperreflexive. Plan to proceed with MRI C spine as well as guided LP. Images from the original note were not included. [facility] Neurology General Neurology Primary Progress Note Primary Neurology service: [phone] Chief Complaint: Interval History: Blanca Rudolph is a 33 y.o. year old L handed female who was admitted to inpatient Neurology for chief complaint of right sided headache, right Lopez's palsy, right sided abnormal sensation of body and face, intermittent right eye visual changes without remitting or exacerbating factors and progressively over one week after cracking her neck. She was initially evaluated in outside ED, diagnosed with ear infection and given antibiotics. Then returned same day because symptoms progressed, diagnosed with lopez's palsy, started on acyclovir. Then a week later she followed with ENT for ear infection, no infection found, told to see neurology for ongiong abnormal sensaiton involving body then returned to ED in [place]. CTH unremarkable, MRI brain with findings suggestive of IIH, then transferred to [facility] for further evaluation. CTA H and CTV H no acute findings, similar findings suggesting IIH. 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 Today, she feels better. Headache 11/06. Body sensation feels normal today bilaterally. She does have intermittent right hand and foot cramps. She has dropped a few objects. She continues to have right facial sensation changes, her right cheek feels swollen, and worsened when chewing. Pertinent past Medical History/Family/Social History reviewed as per initial HPI. Pertinent Systems reviewed as per initial HPI, and negative as below except for mentioned above. Medications: None Physical Exam Vital Signs: Vitals: 02/01/24 0746 BP: (!) 136/99 Pulse: 89 Resp: 17 Temp: 36.7 C (98.1 F) SpO2: 100% General: Normotensive, in no acute distress. Cardiac Examination: Heart: RRR Neurological Examination: Higher Mental Function: Orientated to time, place, person Language intact Fund of knowledge appropriate Ophthalmological Examination: Clear conjunctiva, no cataracts. Cranial Nerve Examination: II: Normal tracking, no evidence of hemianopia or other visual field defect. III, IV, & : EOM intact, no ptosis, no nystagmus seen. Pupils are equal and reactive to light. V: Facial sensation is abnormal on the right with midline splitting to vibration sensation on the right VII: right peripheral weakness (Lopez's palsy) VIII: hyperacusis on the right to finger rubbing IX-X: Palate elevates in the midline. XI: Normal trapezius strength and/or movement. XII: Tongue movement is normal, position is midline and no fasciculations are observed. Tongue strength intact. Motor: Power -- No focal motor weakness noted in BL upper or lower extremities. Bulk and muscle tone are intact in BL upper and lower extremities. No rigidity or spasticity. No atrophy or abnormal movements noted. No dystonia, or motor tics. No bradykinesia, postural or kinetic tremor noted. No fasciculation or myotonia noted. No abnormal movements noticed. No evidence of pseudo bulbar paralysis; no sialorrhea, difficulties swallowing. Deep Tendon Reflexes: Right, Left: Biceps 2, 2 Brachioradialis 2, 2 Triceps 2, 2 Patellae 2, 2 Achilles 1,1 Sensory examination: Intact to light touch, vibration, and temperature throughout. Cerebellar: Able to do [id number] bilaterally; normal coordination Gait and station: Deferred Pertinent Labs: INR 1.4 CBC WNL ESR 2 K+ 3.4 -> 3.7 Cr 1.33 (baseline 1.4-1.7) UDS and EtOH negative UA hyaline casts and moderate hemoglobin 01/27/24: TSH 0.5, T4 0.91 01/01/24: Vit D 44.5, PTH 71, CRP 0.3, C3 138, C4 26, negative chlamydia and gonorrhea, Syphilis total >8.0, RPR with reflex positive, RPR titer 1:4 Imaging: MRI brain with and without contrast 01/31/24: mild optic nerve sheath engorgement bilaterally, flattened pituitary, subtle DWI changes superiorly and caudal L>R secondary to calcifications seen on CTA/CTV head CTA/CTV H: stenotic R transverse sinus, flattened pituitary, no acute vascular findings Assessment: Blanca Rudolph is a 33 yo female with history of lupus on immunosuppression, lupus nephritis with CKD, migraines, and 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 MRI brain, CTA and CTV concerning for IIH. Physical exam improving. Impression: Complicated migraine vs IIH Plan: Plan for LP today, holding home Xarelto and ASA, will resume after LP Migraine cocktail q6h prn Continue home medications DVT Ppx holding home Xarelto until decision for LP, may consider heparin drip to bridge GI Ppx Home Pepcid Diet Renal Disposition likely home Code status Full Pat Hawk MD PGY-3 Neurology Resident [facility] 02/01/24 Staffed with: (Dr. Bray) This patient is being followed by the Neurology Resident service. Contact attending directly during these hours: Sunday to 7:30-8:30 A.M. to Sunday 12-1:00 p.m. Primary Neurology service: [phone] Consult neurology service: [phone] Resident Stroke Service: [phone] If the patient belongs to the Stroke YUSEF service please contact the Stroke YUSEF directly. Associated attestation - Diogo Bray MD - 02/01/2024 4:44 PM EDT I personally saw and evaluated the patient with the resident, and agree with the findings and plan as documented. Plan for LP. Counseled about risk of visual loss if CSF pressure is high and remains untreated. Attempted fundoscopy but patient could not tolerate the procedure. documented in this encounter [facility] 02-03-2024 Plan of care note Problem: Pain Goal: Patient goal is pain score less than 4, able to rest, and participant in treatment plan as appropriate Description: INTERVENTIONS: 1. Encourage patient or legal in store representative to report early pain and ask for pain medicine when needed 2. Assess pain using appropriate pain scale and include the scale used when documenting 3. Administer analgesics based on type and severity of pain and evaluate response within appropriate time frame 4. Implement non-pharmacological measures as appropriate and evaluate response 5. Consider cultural and social influences on pain and pain management 6. Notify LIP if interventions ineffective or patient reports new pain 7. Monitor vital signs including pulse ox, end-tidal CO2 based on pain intervention 8. Reassess pain per policy 9. Teach patient or legal in store representative interventions for comforting Outcome: Progressing Note: Evaluation of progress towards goal: rates right occipital headache pain 5 on scale, but denies pain medications currently Problem: Safety Goal: Patient will be injury free during hospitalization Description: INTERVENTIONS: 1. Assess patient's risk for falls and implement fall prevention plan of care per policy 2. Provide and maintain a safe environment 3. Proper use of double Identifiers 4. Medication administration using the 5 rights 5. Hand hygiene 6. Specimens are labeled at the bedside 7. Instruct patient/ patient in store representative about use of safety devices 8. Include patient/ patient in store representative in decisions related to safety Outcome: Progressing Note: Evaluation of progress towards goal: Patient free from injury; bed to low position; skid free socks applied; call light in reach Problem: Knowledge Deficit Goal: Patient/patient in store representative demonstrates understanding of disease process, treatment plan, medications, and discharge instructions Description: INTERVENTIONS 1. Complete learning assessment and assess knowledge base 2. Provide teaching at level of understanding 3. Provide teaching via preferred learning method(s) Outcome: Progressing Note: Evaluation of progress towards goal: Patient verbalizes understanding of POC Problem: Discharge Planning Goal: Discharge to post-acute care, other facility, or home with appropriate resources Description: Patient's goal is: INTERVENTIONS 1. Conduct assessment to determine patient/family and health care team treatment goals, and need for post-acute services based on payer coverage, community resources, and patient preferences, and barriers to discharge 2. Coordinate with Social work, Care Navigation, and Utilization Review to arrange appropriate level of services according to patient's needs based on patient preference and payer coverage in collaboration with the physician and health care team 3. Address psychosocial, clinical, and financial barriers to discharge as identified in assessment in conjunction with the patient/family and health care team 4. Consult appropriate ancillary services (i.e.. PT/OT/ST, etc) as needed 5. Communicate with and update the patient/family, physician, and health care team regarding progress on the discharge plan 6. Identify discharge learning needs (meds, wound care, etc). 7. Arrange for needed discharge transportation as appropriate Outcome: Progressing Note: Evaluation of progress towards goal: Patient verbalizes understanding of discharge plans [facility] 02-03-2024 Plan of care note Problem: Pain Goal: Patient goal is pain score less than 4, able to rest, and participant in treatment plan as appropriate Description: INTERVENTIONS: 1. Encourage patient or legal in store representative to report early pain and ask for pain medicine when needed 2. Assess pain using appropriate pain scale and include the scale used when documenting 3. Administer analgesics based on type and severity of pain and evaluate response within appropriate time frame 4. Implement non-pharmacological measures as appropriate and evaluate response 5. Consider cultural and social influences on pain and pain management 6. Notify LIP if interventions ineffective or patient reports new pain 7. Monitor vital signs including pulse ox, end-tidal CO2 based on pain intervention 8. Reassess pain per policy 9. Teach patient or legal in store representative interventions for comforting Outcome: Progressing Note: Evaluation of progress towards goal: Patient c/o headache 11/06, PRN medications available, pt encouraged to notify RN of any occurrences Problem: Safety Goal: Patient will be injury free during hospitalization Description: INTERVENTIONS: 1. Assess patient's risk for falls and implement fall prevention plan of care per policy 2. Provide and maintain a safe environment 3. Proper use of double Identifiers 4. Medication administration using the 5 rights 5. Hand hygiene 6. Specimens are labeled at the bedside 7. Instruct patient/ patient in store representative about use of safety devices 8. Include patient/ patient in store representative in decisions related to safety Outcome: Progressing Note: Evaluation of progress towards goal: Bed locked in lowest position, call light within reach, belongings at bedside, hourly rounding maintained, patient independent Problem: Infection Goal: Absence of infection during hospitalization Description: Interventions: 1. Assess and monitor for signs and symptoms of infection 2. Monitor lab/diagnostic results 3. Monitor all insertion sites i.e., indwelling lines, tubes and drains 4. Monitor endotracheal (as able) and nasal secretions for changes in amount and color 5. Administer medications as ordered 6. Instruct and encourage patient and family to use good hand hygiene technique 7. Identify and instruct patient/patient in store representative in use of appropriate isolation precautions for identified infection/symptoms 8. Provide and discuss with patient/patient in store representative on educational MDRO sheet 9. Encourage and monitor nutritional status daily and consult operations welder if indicated 10. Implement neutropenic guidelines as needed 11. Review exposure to history of communicable disease and recent travel history on admission 12. Encourage annual influenza vaccine 13. Encourage pneumonia vaccine Outcome: Progressing Note: Evaluation of progress towards goal: Patient afebrile, no s/s of infection noted at this time Problem: Knowledge Deficit Goal: Patient/patient in store representative demonstrates understanding of disease process, treatment plan, medications, and discharge instructions Description: INTERVENTIONS 1. Complete learning assessment and assess knowledge base 2. Provide teaching at level of understanding 3. Provide teaching via preferred learning method(s) Outcome: Progressing Note: Evaluation of progress towards goal: Patient involved in treatment plan, verbalizes an understanding Problem: Discharge Planning Goal: Discharge to post-acute care, other facility, or home with appropriate resources Description: Patient's goal is: INTERVENTIONS 1. Conduct assessment to determine patient/family and health care team treatment goals, and need for post-acute services based on payer coverage, community resources, and patient preferences, and barriers to discharge 2. Coordinate with Social work, Care Navigation, and Utilization Review to arrange appropriate level of services according to patient's needs based on patient preference and payer coverage in collaboration with the physician and health care team 3. Address psychosocial, clinical, and financial barriers to discharge as identified in assessment in conjunction with the patient/family and health care team 4. Consult appropriate ancillary services (i.e.. PT/OT/ST, etc) as needed 5. Communicate with and update the patient/family, physician, and health care team regarding progress on the discharge plan 6. Identify discharge learning needs (meds, wound care, etc). 7. Arrange for needed discharge transportation as appropriate Outcome: Progressing Note: Evaluation of progress towards goal: Patient plans to discharge home Problem: Low Risk Fall Score Description: Mckeon Fall Score of 0 - 24 or indicated by [facility] Assessment Goal: Patient should be free from fall Description: Interventions: 1. [place] to environment 2. Hourly rounds addressing the 4 P's (Pain, Positioning, Possessions, Potty) 3. Clear area of hazards (spills, clutter, electrical cords, unnecessary equipment) 4. Place equipment (bed & TV controls, call light, phone, urinal) within reach 5. Encourage patient to wear glasses and hearing aides as appropriate 6. Maintain bed in lowest position 7. Lock wheels on bed/wheelchair 8. Provide adequate lighting, including night light 9. Assess need for additional bedding, food/fluids, pain med's prior to sleep/routinely 10. Provide gripper slippers or personal non-skid footwear 11. Teach patient and patient in store representative to maintain environment for safety and engage in all aspects of fall prevention program Outcome: Progressing Note: Evaluation of progress towards goal: Patient remains free from falls at this time, hourly rounding maintained [facility] 02-02-2024 Plan of care note Problem: Pain Goal: Patient goal is pain score less than 4, able to rest, and participant in treatment plan as appropriate Description: INTERVENTIONS: 1. Encourage patient or legal in store representative to report early pain and ask for pain medicine when needed 2. Assess pain using appropriate pain scale and include the scale used when documenting 3. Administer analgesics based on type and severity of pain and evaluate response within appropriate time frame 4. Implement non-pharmacological measures as appropriate and evaluate response 5. Consider cultural and social influences on pain and pain management 6. Notify LIP if interventions ineffective or patient reports new pain 7. Monitor vital signs including pulse ox, end-tidal CO2 based on pain intervention 8. Reassess pain per policy 9. Teach patient or legal in store representative interventions for comforting Outcome: Progressing Note: Evaluation of progress towards goal: denies pain Problem: Safety Goal: Patient will be injury free during hospitalization Description: INTERVENTIONS: 1. Assess patient's risk for falls and implement fall prevention plan of care per policy 2. Provide and maintain a safe environment 3. Proper use of double Identifiers 4. Medication administration using the 5 rights 5. Hand hygiene 6. Specimens are labeled at the bedside 7. Instruct patient/ patient in store representative about use of safety devices 8. Include patient/ patient in store representative in decisions related to safety Outcome: Progressing Note: Evaluation of progress towards goal: Safety maintained this shift no falls or injury. Problem: Infection Goal: Absence of infection during hospitalization Description: Interventions: 1. Assess and monitor for signs and symptoms of infection 2. Monitor lab/diagnostic results 3. Monitor all insertion sites i.e., indwelling lines, tubes and drains 4. Monitor endotracheal (as able) and nasal secretions for changes in amount and color 5. Administer medications as ordered 6. Instruct and encourage patient and family to use good hand hygiene technique 7. Identify and instruct patient/patient in store representative in use of appropriate isolation precautions for identified infection/symptoms 8. Provide and discuss with patient/patient in store representative on educational MDRO sheet 9. Encourage and monitor nutritional status daily and consult operations welder if indicated 10. Implement neutropenic guidelines as needed 11. Review exposure to history of communicable disease and recent travel history on admission 12. Encourage annual influenza vaccine 13. Encourage pneumonia vaccine Outcome: Progressing Note: Evaluation of progress towards goal: continue antibiotics, monitor labs. Problem: Knowledge Deficit Goal: Patient/patient in store representative demonstrates understanding of disease process, treatment plan, medications, and discharge instructions Description: INTERVENTIONS 1. Complete learning assessment and assess knowledge base 2. Provide teaching at level of understanding 3. Provide teaching via preferred learning method(s) Outcome: Progressing Note: Evaluation of progress towards goal: Patient educated as needed. Patient updated on plan of care. No questions at this time. Problem: Discharge Planning Goal: Discharge to post-acute care, other facility, or home with appropriate resources Description: Patient's goal is: INTERVENTIONS 1. Conduct assessment to determine patient/family and health care team treatment goals, and need for post-acute services based on payer coverage, community resources, and patient preferences, and barriers to discharge 2. Coordinate with Social work, Care Navigation, and Utilization Review to arrange appropriate level of services according to patient's needs based on patient preference and payer coverage in collaboration with the physician and health care team 3. Address psychosocial, clinical, and financial barriers to discharge as identified in assessment in conjunction with the patient/family and health care team 4. Consult appropriate ancillary services (i.e.. PT/OT/ST, etc) as needed 5. Communicate with and update the patient/family, physician, and health care team regarding progress on the discharge plan 6. Identify discharge learning needs (meds, wound care, etc). 7. Arrange for needed discharge transportation as appropriate Outcome: Progressing Note: Evaluation of progress towards goal: Patient updated on discharge planning. All questions answered Problem: Low Risk Fall Score Description: Mckeon Fall Score of 0 - 24 or indicated by [facility] Assessment Goal: Patient should be free from fall Description: Interventions: 1. [place] to environment 2. Hourly rounds addressing the 4 P's (Pain, Positioning, Possessions, Potty) 3. Clear area of hazards (spills, clutter, electrical cords, unnecessary equipment) 4. Place equipment (bed & TV controls, call light, phone, urinal) within reach 5. Encourage patient to wear glasses and hearing aides as appropriate 6. Maintain bed in lowest position 7. Lock wheels on bed/wheelchair 8. Provide adequate lighting, including night light 9. Assess need for additional bedding, food/fluids, pain med's prior to sleep/routinely 10. Provide gripper slippers or personal non-skid footwear 11. Teach patient and patient in store representative to maintain environment for safety and engage in all aspects of fall prevention program Outcome: Progressing Note: Evaluation of progress towards goal: patient is fall risk, no falls this shift. Continue to monitor [facility] 02-02-2024 Plan of care note Problem: Pain Goal: Patient goal is pain score less than 4, able to rest, and participant in treatment plan as appropriate Description: INTERVENTIONS: 1. Encourage patient or legal in store representative to report early pain and ask for pain medicine when needed 2. Assess pain using appropriate pain scale and include the scale used when documenting 3. Administer analgesics based on type and severity of pain and evaluate response within appropriate time frame 4. Implement non-pharmacological measures as appropriate and evaluate response 5. Consider cultural and social influences on pain and pain management 6. Notify LIP if interventions ineffective or patient reports new pain 7. Monitor vital signs including pulse ox, end-tidal CO2 based on pain intervention 8. Reassess pain per policy 9. Teach patient or legal in store representative interventions for comforting Outcome: Progressing Note: Evaluation of progress towards goal: Patient will remain at or below pain goal until the end of the shift. Will monitor Problem: Safety Goal: Patient will be injury free during hospitalization Description: INTERVENTIONS: 1. Assess patient's risk for falls and implement fall prevention plan of care per policy 2. Provide and maintain a safe environment 3. Proper use of double Identifiers 4. Medication administration using the 5 rights 5. Hand hygiene 6. Specimens are labeled at the bedside 7. Instruct patient/ patient in store representative about use of safety devices 8. Include patient/ patient in store representative in decisions related to safety Outcome: Progressing Note: Evaluation of progress towards goal: Patient will remain free from injury until the end of the shift Problem: Infection Goal: Absence of infection during hospitalization Description: Interventions: 1. Assess and monitor for signs and symptoms of infection 2. Monitor lab/diagnostic results 3. Monitor all insertion sites i.e., indwelling lines, tubes and drains 4. Monitor endotracheal (as able) and nasal secretions for changes in amount and color 5. Administer medications as ordered 6. Instruct and encourage patient and family to use good hand hygiene technique 7. Identify and instruct patient/patient in store representative in use of appropriate isolation precautions for identified infection/symptoms 8. Provide and discuss with patient/patient in store representative on educational MDRO sheet 9. Encourage and monitor nutritional status daily and consult operations welder if indicated 10. Implement neutropenic guidelines as needed 11. Review exposure to history of communicable disease and recent travel history on admission 12. Encourage annual influenza vaccine 13. Encourage pneumonia vaccine Outcome: Progressing Note: Evaluation of progress towards goal: Patient will remain free from infection until the end of the shift. Problem: Knowledge Deficit Goal: Patient/patient in store representative demonstrates understanding of disease process, treatment plan, medications, and discharge instructions Description: INTERVENTIONS 1. Complete learning assessment and assess knowledge base 2. Provide teaching at level of understanding 3. Provide teaching via preferred learning method(s) Outcome: Progressing Note: Evaluation of progress towards goal: Patient will be educated about the plan of care before the end of the shift Problem: Discharge Planning Goal: Discharge to post-acute care, other facility, or home with appropriate resources Description: Patient's goal is: INTERVENTIONS 1. Conduct assessment to determine patient/family and health care team treatment goals, and need for post-acute services based on payer coverage, community resources, and patient preferences, and barriers to discharge 2. Coordinate with Social work, Care Navigation, and Utilization Review to arrange appropriate level of services according to patient's needs based on patient preference and payer coverage in collaboration with the physician and health care team 3. Address psychosocial, clinical, and financial barriers to discharge as identified in assessment in conjunction with the patient/family and health care team 4. Consult appropriate ancillary services (i.e.. PT/OT/ST, etc) as needed 5. Communicate with and update the patient/family, physician, and health care team regarding progress on the discharge plan 6. Identify discharge learning needs (meds, wound care, etc). 7. Arrange for needed discharge transportation as appropriate Outcome: Progressing Note: Evaluation of progress towards goal: Patients discharge needs will be assessed before the end of the shift. Problem: Glucose Imbalance Goal: Clinical indication of glucose balance is achieved Description: Patient's goal is: INTERVENTIONS 1. Monitor blood glucose levels as ordered 2. Administer medications as ordered 3. Notify physician of ineffective treatment plan Outcome: Progressing Note: Evaluation of progress towards goal: Patients blood sugar level will be monitored until the end of the shift Goal: Patient's discharge needs are met Description: Patient's goal is: INTERVENTIONS 1. Assess patient for self-management skills 2. Encourage participation in diabetes management 3. Identify potential discharge barriers on admission and throughout hospital stay 4. Involve patient/S.O. in discharge planning process 5. Communicate referral to simulation educator as appropriate 6. Communicate referral to operations welder as appropriate 7. Collaborate with case management/social science instructor for discharge needs Outcome: Progressing Note: Evaluation of progress towards goal: Patients discharge needs will be assessed before the end of the shift. Problem: Moderate - High Risk Fall Score Description: Mckeon Fall Score of =/> 25 or indicated by [facility] Assessment Goal: Patient should be free from fall Description: Interventions: 1. [place] to environment 2. Hourly rounds addressing the 4 P's (Pain, Positioning, Possessions, Potty) 3. Clear area of hazards (spills, clutter, electrical cords, unnecessary equipment) 4. Place equipment (bed & TV controls, call light, phone, urinal) within reach 5. Encourage patient to wear glasses and hearing aides as appropriate 6. Maintain bed in lowest position 7. Lock wheels on bed/wheelchair 8. Provide adequate lighting, including night light 9. Assess need for additional bedding, food/fluids, pain med's prior to sleep/routinely 10. Provide gripper slippers or personal non-skid footwear 11. Teach patient and patient in store representative to maintain environment for safety and engage in all aspects of fall prevention program 12. Remind patient to call for help before getting out of bed 13. Initiate bed/chair/exit alarms supportive devices as appropriate, (chair wedge, no-skid floor mat, raised edge mattress, hip protectors) 14. Locate patient bed assignment for optimal visualization 15. Evaluate and identify Safe Patient Handling Equipment needs 16. Provide supervision when out of bed or chair 17. Utilize gait belt as needed to assist with ambulation 18. Place adaptive equipment (cane, walker) within reach 19. Request patient in store representative bring adaptive equipment/mobility aids from home or obtain and provide as needed 20. Consult pharmacy regarding effects of med's affecting mobility, cognition, and alternatives 21. Obtain physician order for PT if risk factors associated with mobility are present 22. Obtain physician order for OT as appropriate 23. Utilize diversional activities 24. Educate patient and patient in store representative how to maintain a safe environment during visitation times (notify nurse prior to leaving bedside) 25. Consider appropriateness of medical or non-medical advisor 26. Set up voiding schedule as appropriate (every 2 hours) Outcome: Progressing Note: Evaluation of progress towards goal: Patient will remain free from falls until the end of the shift. [facility] 02-01-2024 Plan of care note Problem: Pain Goal: Patient goal is pain score less than 4, able to rest, and participant in treatment plan as appropriate Description: INTERVENTIONS: 1. Encourage patient or legal in store representative to report early pain and ask for pain medicine when needed 2. Assess pain using appropriate pain scale and include the scale used when documenting 3. Administer analgesics based on type and severity of pain and evaluate response within appropriate time frame 4. Implement non-pharmacological measures as appropriate and evaluate response 5. Consider cultural and social influences on pain and pain management 6. Notify LIP if interventions ineffective or patient reports new pain 7. Monitor vital signs including pulse ox, end-tidal CO2 based on pain intervention 8. Reassess pain per policy 9. Teach patient or legal in store representative interventions for comforting Outcome: Progressing Note: Evaluation of progress towards goal: denies pain Problem: Safety Goal: Patient will be injury free during hospitalization Description: INTERVENTIONS: 1. Assess patient's risk for falls and implement fall prevention plan of care per policy 2. Provide and maintain a safe environment 3. Proper use of double Identifiers 4. Medication administration using the 5 rights 5. Hand hygiene 6. Specimens are labeled at the bedside 7. Instruct patient/ patient in store representative about use of safety devices 8. Include patient/ patient in store representative in decisions related to safety Outcome: Progressing Note: Evaluation of progress towards goal: Safety maintained this shift no falls or injury. Problem: Infection Goal: Absence of infection during hospitalization Description: Interventions: 1. Assess and monitor for signs and symptoms of infection 2. Monitor lab/diagnostic results 3. Monitor all insertion sites i.e., indwelling lines, tubes and drains 4. Monitor endotracheal (as able) and nasal secretions for changes in amount and color 5. Administer medications as ordered 6. Instruct and encourage patient and family to use good hand hygiene technique 7. Identify and instruct patient/patient in store representative in use of appropriate isolation precautions for identified infection/symptoms 8. Provide and discuss with patient/patient in store representative on educational MDRO sheet 9. Encourage and monitor nutritional status daily and consult operations welder if indicated 10. Implement neutropenic guidelines as needed 11. Review exposure to history of communicable disease and recent travel history on admission 12. Encourage annual influenza vaccine 13. Encourage pneumonia vaccine Outcome: Progressing Note: Evaluation of progress towards goal: No s/s of infection at this time. Afebrile. Will continue to monitor Problem: Knowledge Deficit Goal: Patient/patient in store representative demonstrates understanding of disease process, treatment plan, medications, and discharge instructions Description: INTERVENTIONS 1. Complete learning assessment and assess knowledge base 2. Provide teaching at level of understanding 3. Provide teaching via preferred learning method(s) Outcome: Progressing Note: Evaluation of progress towards goal: Patient educated as needed. Patient updated on plan of care. No questions at this time. Problem: Discharge Planning Goal: Discharge to post-acute care, other facility, or home with appropriate resources Description: Patient's goal is: INTERVENTIONS 1. Conduct assessment to determine patient/family and health care team treatment goals, and need for post-acute services based on payer coverage, community resources, and patient preferences, and barriers to discharge 2. Coordinate with Social work, Care Navigation, and Utilization Review to arrange appropriate level of services according to patient's needs based on patient preference and payer coverage in collaboration with the physician and health care team 3. Address psychosocial, clinical, and financial barriers to discharge as identified in assessment in conjunction with the patient/family and health care team 4. Consult appropriate ancillary services (i.e.. PT/OT/ST, etc) as needed 5. Communicate with and update the patient/family, physician, and health care team regarding progress on the discharge plan 6. Identify discharge learning needs (meds, wound care, etc). 7. Arrange for needed discharge transportation as appropriate Outcome: Progressing Note: Evaluation of progress towards goal: Patient educated as needed. Patient updated on plan of care. No questions at this time. Problem: Low Risk Fall Score Description: Mckeon Fall Score of 0 - 24 or indicated by [facility] Assessment Goal: Patient should be free from fall Description: Interventions: 1. [place] to environment 2. Hourly rounds addressing the 4 P's (Pain, Positioning, Possessions, Potty) 3. Clear area of hazards (spills, clutter, electrical cords, unnecessary equipment) 4. Place equipment (bed & TV controls, call light, phone, urinal) within reach 5. Encourage patient to wear glasses and hearing aides as appropriate 6. Maintain bed in lowest position 7. Lock wheels on bed/wheelchair 8. Provide adequate lighting, including night light 9. Assess need for additional bedding, food/fluids, pain med's prior to sleep/routinely 10. Provide gripper slippers or personal non-skid footwear 11. Teach patient and patient in store representative to maintain environment for safety and engage in all aspects of fall prevention program Outcome: Progressing Note: Evaluation of progress towards goal: patient is fall risk, no falls this shift. Continue to monitor [facility] 02-01-2024 Miscellaneous Notes Contract: LASHAY de la cruz Lumbar Punctue Requesting help with this in the AM Stating no need for callback Left Message for Dr Frederick Marte to call [facility] documented in this encounter [facility] 02-01-2024 Telephone encounter Note Contract: LASHAY re Lumbar Punctue Requesting help with this in the AM Stating no need for callback [facility] 02-01-2024 Telephone encounter Note Left Message for Dr Frederick Marte to call [facility] 02-01-2024 Procedure note Procedure Note Date: 02/01/2024 Procedure: Lumbar Puncture Indication: rule out IIH Anesthesia: Local 1% Lidocaine Informed consent was obtained from the patient. The opportunity for questions was provided, and a signed copy of the informed consent form was placed on the chart. Time out was called, and appropriate site and availability of equipment was verified. Prior to LP the patient showed no signs of increased ICP and the INR was normal. The area was prepped and draped in the usual sterile fashion after local anesthesia was given. The procedure was unsuccessful after 4 attempts were made and was abandoned on patients demand There was minimal blood loss in the procedure and no complications of the procedure. Luis Delarosa MD Neurology Resident, [facility] Please contact via secure chat Associated attestation - Diogo Bray MD - 02/03/2024 9:17 PM EDT Attested. [facility] 02-01-2024 Procedure note Procedure Note Date: 02/01/2024 Procedure: Lumbar Puncture Indication: rule out IIH Anesthesia: Local 1% Lidocaine Informed consent was obtained from the patient. The opportunity for questions was provided, and a signed copy of the informed consent form was placed on the chart. Time out was called, and appropriate site and availability of equipment was verified. Prior to LP the patient showed no signs of increased ICP and the INR was normal. The area was prepped and draped in the usual sterile fashion after local anesthesia was given. The procedure was unsuccessful after 4 attempts were made and was abandoned on patients demand There was minimal blood loss in the procedure and no complications of the procedure. Luis Delarosa MD Neurology Resident, [facility] Please contact via secure chat Associated attestation - Beata, Diogo Bess MD - 02/03/2024 9:17 PM EDT Attested. documented in this encounter [facility] 02-01-2024 Plan of care note Problem: Pain Goal: Patient goal is pain score less than 4, able to rest, and participant in treatment plan as appropriate Description: INTERVENTIONS: 1. Encourage patient or legal in store representative to report early pain and ask for pain medicine when needed 2. Assess pain using appropriate pain scale and include the scale used when documenting 3. Administer analgesics based on type and severity of pain and evaluate response within appropriate time frame 4. Implement non-pharmacological measures as appropriate and evaluate response 5. Consider cultural and social influences on pain and pain management 6. Notify LIP if interventions ineffective or patient reports new pain 7. Monitor vital signs including pulse ox, end-tidal CO2 based on pain intervention 8. Reassess pain per policy 9. Teach patient or legal in store representative interventions for comforting Outcome: Progressing Note: Evaluation of progress towards goal: Encourage patient to report early pain and ask for pain medicine when needed Assess pain using appropriate pain scale and include the scale used when documenting Administer analgesics based on type and severity of pain and evaluate response within appropriate time frame Implement non-pharmacological measures as appropriate and evaluate response 5. Consider cultural and social influences on pain and pain management Monitor vital signs including pulse ox, Reassess pain per policy Problem: Safety Goal: Patient will be injury free during hospitalization Description: INTERVENTIONS: 1. Assess patient's risk for falls and implement fall prevention plan of care per policy 2. Provide and maintain a safe environment 3. Proper use of double Identifiers 4. Medication administration using the 5 rights 5. Hand hygiene 6. Specimens are labeled at the bedside 7. Instruct patient/ patient in store representative about use of safety devices 8. Include patient/ patient in store representative in decisions related to safety Outcome: Progressing Note: Evaluation of progress towards goal: Assess patient's risk for falls and implement fall prevention plan of care per policy Provide and maintain a safe environment Proper use of double Identifiers Medication administration using the 5 rights Hand hygiene Specimens are labeled at the bedside Problem: Infection Goal: Absence of infection during hospitalization Description: Interventions: 1. Assess and monitor for signs and symptoms of infection 2. Monitor lab/diagnostic results 3. Monitor all insertion sites i.e., indwelling lines, tubes and drains 4. Monitor endotracheal (as able) and nasal secretions for changes in amount and color 5. Administer medications as ordered 6. Instruct and encourage patient and family to use good hand hygiene technique 7. Identify and instruct patient/patient in store representative in use of appropriate isolation precautions for identified infection/symptoms 8. Provide and discuss with patient/patient in store representative on educational MDRO sheet 9. Encourage and monitor nutritional status daily and consult operations welder if indicated 10. Implement neutropenic guidelines as needed 11. Review exposure to history of communicable disease and recent travel history on admission 12. Encourage annual influenza vaccine 13. Encourage pneumonia vaccine Outcome: Progressing Note: Evaluation of progress towards goal: Assess and monitor for signs and symptoms of infection . Monitor lab/diagnostic results Monitor all insertion sites Administer medications as ordered Instruct and encourage patient and family to use good hand hygiene technique Problem: Knowledge Deficit Goal: Patient/patient in store representative demonstrates understanding of disease process, treatment plan, medications, and discharge instructions Description: INTERVENTIONS 1. Complete learning assessment and assess knowledge base 2. Provide teaching at level of understanding 3. Provide teaching via preferred learning method(s) Outcome: Progressing Note: Evaluation of progress towards goal: Will cont to update pt on POC Problem: Discharge Planning Goal: Discharge to post-acute care, other facility, or home with appropriate resources Description: Patient's goal is: INTERVENTIONS 1. Conduct assessment to determine patient/family and health care team treatment goals, and need for post-acute services based on payer coverage, community resources, and patient preferences, and barriers to discharge 2. Coordinate with Social work, Care Navigation, and Utilization Review to arrange appropriate level of services according to patient's needs based on patient preference and payer coverage in collaboration with the physician and health care team 3. Address psychosocial, clinical, and financial barriers to discharge as identified in assessment in conjunction with the patient/family and health care team 4. Consult appropriate ancillary services (i.e.. PT/OT/ST, etc) as needed 5. Communicate with and update the patient/family, physician, and health care team regarding progress on the discharge plan 6. Identify discharge learning needs (meds, wound care, etc). 7. Arrange for needed discharge transportation as appropriate Outcome: Progressing Note: Evaluation of progress towards goal: Problem: Glucose Imbalance Goal: Clinical indication of glucose balance is achieved Description: Patient's goal is: INTERVENTIONS 1. Monitor blood glucose levels as ordered 2. Administer medications as ordered 3. Notify physician of ineffective treatment plan Outcome: Progressing Note: Evaluation of progress towards goal: Goal: Patient's discharge needs are met Description: Patient's goal is: INTERVENTIONS 1. Assess patient for self-management skills 2. Encourage participation in diabetes management 3. Identify potential discharge barriers on admission and throughout hospital stay 4. Involve patient/S.O. in discharge planning process 5. Communicate referral to simulation educator as appropriate 6. Communicate referral to operations welder as appropriate 7. Collaborate with case management/social science instructor for discharge needs Outcome: Progressing Note: Evaluation of progress towards goal: Problem: Moderate - High Risk Fall Score Description: Mckeon Fall Score of =/> 25 or indicated by [facility] Assessment Goal: Patient should be free from fall Description: Interventions: 1. [place] to environment 2. Hourly rounds addressing the 4 P's (Pain, Positioning, Possessions, Potty) 3. Clear area of hazards (spills, clutter, electrical cords, unnecessary equipment) 4. Place equipment (bed & TV controls, call light, phone, urinal) within reach 5. Encourage patient to wear glasses and hearing aides as appropriate 6. Maintain bed in lowest position 7. Lock wheels on bed/wheelchair 8. Provide adequate lighting, including night light 9. Assess need for additional bedding, food/fluids, pain med's prior to sleep/routinely 10. Provide gripper slippers or personal non-skid footwear 11. Teach patient and patient in store representative to maintain environment for safety and engage in all aspects of fall prevention program 12. Remind patient to call for help before getting out of bed 13. Initiate bed/chair/exit alarms supportive devices as appropriate, (chair wedge, no-skid floor mat, raised edge mattress, hip protectors) 14. Locate patient bed assignment for optimal visualization 15. Evaluate and identify Safe Patient Handling Equipment needs 16. Provide supervision when out of bed or chair 17. Utilize gait belt as needed to assist with ambulation 18. Place adaptive equipment (cane, walker) within reach 19. Request patient in store representative bring adaptive equipment/mobility aids from home or obtain and provide as needed 20. Consult pharmacy regarding effects of med's affecting mobility, cognition, and alternatives 21. Obtain physician order for PT if risk factors associated with mobility are present 22. Obtain physician order for OT as appropriate 23. Utilize diversional activities 24. Educate patient and patient in store representative how to maintain a safe environment during visitation times (notify nurse prior to leaving bedside) 25. Consider appropriateness of medical or non-medical advisor 26. Set up voiding schedule as appropriate (every 2 hours) Outcome: Progressing Note: Evaluation of progress towards goal: Problem: Low Risk Fall Score Description: Mckeon Fall Score of 0 - 24 or indicated by [facility] Assessment Goal: Patient should be free from fall Description: Interventions: 1. [place] to environment 2. Hourly rounds addressing the 4 P's (Pain, Positioning, Possessions, Potty) 3. Clear area of hazards (spills, clutter, electrical cords, unnecessary equipment) 4. Place equipment (bed & TV controls, call light, phone, urinal) within reach 5. Encourage patient to wear glasses and hearing aides as appropriate 6. Maintain bed in lowest position 7. Lock wheels on bed/wheelchair 8. Provide adequate lighting, including night light 9. Assess need for additional bedding, food/fluids, pain med's prior to sleep/routinely 10. Provide gripper slippers or personal non-skid footwear 11. Teach patient and patient in store representative to maintain environment for safety and engage in all aspects of fall prevention program Outcome: Progressing Note: Evaluation of progress towards goal: [place] to environment Hourly rounds addressing the 4 P's Clear area of hazards Place equipment within reach Maintain bed in lowest position Lock wheels on bed/wheelchair [facility] 01-31-2024 Plan of care note Problem: Pain Goal: Patient goal is pain score less than 4, able to rest, and participant in treatment plan as appropriate Description: INTERVENTIONS: 1. Encourage patient or legal in store representative to report early pain and ask for pain medicine when needed 2. Assess pain using appropriate pain scale and include the scale used when documenting 3. Administer analgesics based on type and severity of pain and evaluate response within appropriate time frame 4. Implement non-pharmacological measures as appropriate and evaluate response 5. Consider cultural and social influences on pain and pain management 6. Notify LIP if interventions ineffective or patient reports new pain 7. Monitor vital signs including pulse ox, end-tidal CO2 based on pain intervention 8. Reassess pain per policy 9. Teach patient or legal in store representative interventions for comforting Outcome: Progressing Note: Evaluation of progress towards goal: patient educated on pain scale and acceptable pain level for patient. Prn medication discussed. Problem: Safety Goal: Patient will be injury free during hospitalization Description: INTERVENTIONS: 1. Assess patient's risk for falls and implement fall prevention plan of care per policy 2. Provide and maintain a safe environment 3. Proper use of double Identifiers 4. Medication administration using the 5 rights 5. Hand hygiene 6. Specimens are labeled at the bedside 7. Instruct patient/ patient in store representative about use of safety devices 8. Include patient/ patient in store representative in decisions related to safety Outcome: Progressing Note: Evaluation of progress towards goal: patient educated on use of call light for assistance. Non slip socks on for safety. Call light within reach. [facility] [facility] 01-31-2024 History and physical note Images from the original note were not included. [facility] Neurology General Neurology Primary Admission Note Primary Neurology service: [phone] Chief Complaint: History: Blanca Rudolph is a 33 y.o. year old L handed female who was admitted to inpatient Neurology for chief complaint of right sided headache, right Lopez's palsy and progressively worsening right sided sensation changes. She reports that about a week ago she cracked her neck and developed right sided neck pain and mild facial droop. She visited the ED and was told she had an ear infection and was started on Clindamycin and given flexeril for muscle spasms, then discharged. After discharge, her facial droop worsened so she returned to the ED. 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 Her symptoms progressed over the weekend and into this week. She has been having constant right neck pressure pain radiating to her right shinto without exacerbating or remitting factors and associated photophobia, phonophobia, right face and body abnormal sensation, intermittent right vision blurring and diplopia and right sided warm sensation. She reports this is different from prior migraines that are well controlled with Elavil which are usually bilateral, fluctuate with the weather and have intermittent bilateral vision blurring. She has never had similar symptoms before. She had followed up with ENT on 01/29 who did not identify ear infection but told her to complete antibiotics. Due to the abnormal sensations, she was told to follow with neurologist JASWANT Shipman, but she does not have an appointment until February so she returned to [place] ED. She had MRI brain done which showed subtle optic nerve sheath engorgement, flattened pituitary and possible DWI changes in superior convexities versus bone artifact on personal review. She received Tylenol and morphine for headache without relief. 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 She denies trauma, only reports cracking her neck which is typical for her. She denies recent illness, sick contacts, travel, changes to medications except adding Descovy to be extra careful in setting of immunosuppression from lupus medications and latent syphilis. She also had touching up of her left hand tattoo recently. She reports spider bite on left face and upper arm a few weeks prior. Denies exposure to ticks or mosquito bites. She denies possible , she has IUD and had previous tubal ligation. 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, HTN Past Medical History/Surgical History: Active Ambulatory Problems Diagnosis Date Noted Chronic hypertension 01/24/2019 History of severe pre-eclampsia 04/04/2019 Bilateral pulmonary embolism ([facility] October 2019 11/08/2019 History of DVT (deep vein thrombosis) 02/03/2020 LSIL Pap 02/04/2020 Delivery of by section 06/02/2020 Abdominal hematoma 06/09/2020 Abdominal pain 06/11/2020 Blood loss anemia 06/23/2020 Nephrotic syndrome 11/22/2022 Acute kidney injury ([facility]) 11/28/2022 SLE (systemic lupus erythematosus) ([facility] 11/28/2022 Positive serology for syphilis 11/28/2022 Vitamin D deficiency 11/28/2022 Stage IV lupus nephritis ([facility]) ([facility]) 12/20/2022 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 12/20/2022 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 12/20/2022 Fibromyalgia 01/23/2023 Menorrhagia with irregular cycle 02/19/2023 Other chest pain 06/19/2023 Preoperative clearance 07/05/2023 Migraine without aura and without status migrainosus, not intractable 07/05/2023 Dyspnea on exertion 08/02/2023 Right sided weakness 01/30/2024 Acid reflux 01/31/2024 Gastritis 01/31/2024 ADD (attention deficit disorder) 01/31/2024 Allergic rhinitis 01/31/2024 Alternating constipation and diarrhea 01/31/2024 Anxiety 01/31/2024 Calculus of gallbladder 01/31/2024 Cholelithiasis 01/31/2024 Cyst of Bartholin's gland duct 12/06/2022 Depressive disorder 01/31/2024 Epigastric pain 01/31/2024 RUQ cramping 01/31/2024 Exposure to HIV 12/15/2022 Frequent UTI 01/31/2024 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 Left ventricular hypertrophy 12/03/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 01/31/2024 Low grade squamous intraepithelial lesion (LGSIL) on cervicovaginal cytologic smear 12/06/2022 Microscopic hematuria 07/18/2023 Nausea 01/31/2024 Pelvic pain in female 07/09/2023 Type II diabetes mellitus ([facility]) 01/31/2024 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 Hypokalemia 01/31/2024 Resolved Ambulatory Problems Diagnosis Date Noted Dichorionic diamniotic twin in second trimester 12/23/2018 Obesity affecting 01/24/2019 Pyelectasis of fetus on ultrasound 01/24/2019 Low-lying placenta RESOLVED 01/24/2019 Polyhydramnios in second trimester 01/24/2019 Request for sterilization 02/26/2019 Twin gestation, dichorionic/diamniotic (two placentae, two amniotic sacs) 04/03/2019 care, antepartum 02/03/2020 Heartburn during 02/03/2020 Request for sterilization 02/03/2020 Abnormal glucose affecting 02/09/2020 Previous delivery, antepartum 03/23/2020 Uterine contractions during 05/25/2020 Maternal care for other (suspected) abnormality and damage, not applicable or unspecified 05/26/2020 Past Medical History: Diagnosis Date Angina pectoris ([facility]) Depression DVT (deep vein thrombosis) in Heart murmur History of gestational diabetes History of pre-eclampsia History of delivery History of twin in prior Hypertension Morbid obesity ([facility]) PPH ( hemorrhage) Pulmonary emboli ([facility]) 10/2019 Family History: Family History Problem Relation Age of Onset Stroke Mother Hypertension Mother Stroke Maternal Grandmother Kidney failure Maternal Grandmother Heart defect Son Stroke Maternal Aunt Hypertension Maternal Aunt REQUIRED DIALYSIS Social History: Social History Socioeconomic History Marital status: Single Spouse name: Not on file Number of children: Not on file Years of education: Not on file Highest education level: Not on file Occupational History Not on file Tobacco Use Smoking status: Former Current packs/day: 0.00 Types: Cigarettes Quit date: 2020 Years since quittin.7 Smokeless tobacco: Never Vaping Use Vaping status: Never Used Substance and Sexual Activity Alcohol use: Not Currently Drug use: Not Currently Types: Marijuana Comment: every day Sexual activity: Yes Other Topics Concern Caffeine Use No Social History Narrative Not on file Social Determinants of Health Financial Resource Strain: Low Risk (12/18/2022) Overall Financial Resource Strain (CARDIA) Difficulty of Paying Living Expenses: Not hard at all Food Insecurity: No Food Insecurity (01/30/2024) Hunger Screening Food Insecurity - Worry: Never True Food Insecurity - Inability: Never True Transportation Needs: No Transportation Needs (01/30/2024) PRAPARE - Transportation Lack of Transportation (Medical): No Lack of Transportation (Non-Medical): No Physical Activity: Insufficiently Active (12/18/2022) Exercise Vital Sign Days of Exercise per Week: 7 days Minutes of Exercise per Session: 20 min Stress: No Stress Concern Present (12/18/2022) [place] [employer] - Occupational Stress Questionnaire Feeling of Stress : Only a little Social Connections: Moderately Integrated (12/18/2022) Social Connection and Isolation Panel [NHANES] Frequency of Communication with Friends and Family: More than three times a week Frequency of Social Gatherings with Friends and Family: More than three times a week Attends Sabianism Services: More than 4 times per year Active Member of Clubs or Organizations: Yes Attends Club or Organization Meetings: More than 4 times per year Marital Status: Never Interpersonal Safety: Not At Risk (01/30/2024) Humiliation, Afraid, Rape, and Kick questionnaire Fear of Current or Ex-Partner: No Emotionally Abused: No Physically Abused: No Sexually Abused: No Housing Instability: Low Risk (01/30/2024) Housing Instability Housing Instability: No Medications: None Allergies: Allergies Allergen Reactions Garlic Ibuprofen Other Reaction(s): medication interference Keflex [Cephalexin] Sulfamethoxazole-Trimethoprim Rash ??? pt says she gets 'heat rash' often. however developed 'worse' rash than usual shortly after taking bactrim. has taken previously with NO reaction. Complete Review of Systems: Pertininent positives and negatives mentioned in HPI otherwise unremarkable Physical Exam Vital Signs: Vitals: 01/31/24 1535 BP: 146/83 Pulse: 76 Resp: 17 Temp: 36.7 C (98.1 F) SpO2: 99% General: Normotensive, in no acute distress. New tattoo on left hand. Obese. Signs of hyperandrogenism including facial hair and deep voice Cardiac Examination: Heart: RRR Peripheral Vascular System: Peripheral pulses intact Neurological Examination: Higher Mental Function: Orientated to time, place, person Attention span and concentration intact Recent and Remote Memory Intact Language intact Fund of knowledge appropriate Ophthalmological Examination: Clear conjunctiva, no cataracts. Undilated ophthalmoscopic examination shows normal optic disc, posterior segments, retinal vessels, and fovea on the left, unable to test on the right due to patient intolerance and difficulty maintaining open eyelid. Visual acuity with glasses: OD 20/40, OS 20/25. Cranial Nerve Examination: II: Normal tracking, no evidence of hemianopia or other visual field defect. III, IV, & : EOM intact, no ptosis, no nystagmus seen. Pupils are equal and reactive to light. V: Facial sensation is abnormal on the right with midline splitting to vibration sensation on the right VII: right peripheral weakness (Lopez's palsy) VIII: hyperacusis on the right to finger rubbing IX-X: Palate elevates in the midline. XI: Normal trapezius strength and/or movement. XII: Tongue movement is normal, position is midline and no fasciculations are observed. Tongue strength intact. Motor: Power -- No focal motor weakness noted in BL upper or lower extremities. Give-way weakness in right shoulder abduction and right dorsiflexion. Bulk and muscle tone are intact in BL upper and lower extremities. No rigidity or spasticity. No atrophy or abnormal movements noted. No dystonia, or motor tics. No bradykinesia, postural or kinetic tremor noted. No fasciculation or myotonia noted. No abnormal movements noticed. No evidence of pseudo bulbar paralysis; no sialorrhea, difficulties swallowing. There were no tremors seen Deep Tendon Reflexes: Right, Left: Biceps 2, 2 Brachioradialis 2, 2 Patellae 2, 2 Achilles 1, 1 Plantar response was flexor bilaterally. No clonus or other pathological reflexes elicited. Sensory examination: Abnormal light touch sensation in right upper and lower extremity. Decreased vibration sensation in right upper and lower extremity, Intact temperature sensation and pinprick sensation throughout. Cerebellar: Able to do [id number] bilaterally; normal coordination Gait and station: Deferred Pertinent Labs: CBC WNL ESR 2 K+ 3.4 -> 3.7 Cr 1.54 (baseline 1.4-1.7) UDS and EtOH negative UA hyaline casts and moderate hemoglobin 01/27/24: TSH 0.5, T4 0.91 01/01/24: Vit D 44.5, PTH 71, CRP 0.3, C3 138, C4 26, negative chlamydia and gonorrhea, Syphilis total >8.0, RPR with reflex positive, RPR titer 1:4 Imaging: MRI brain with and without contrast 01/31/24: mild optic nerve sheath engorgement bilaterally, flattened pituitary, possible subtle DWI changes superiorly and caudal L>R Other Testing: N/A Assessment: Blanca Rudolph is a 33 yo female with history of lupus on immunosuppression, lupus nephritis with CKD, migraines, and 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 Examination shows right Lopez's palsy, midline splitting to sensation right face, right hyperacusis, intact strength, abnormal sensation and decreased vibration on right body, normal reflexes and coordination. 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 Impression: Complicated migraine vs IIH vs lupus cerebritis Plan: Recommended admission to neuro step down unit, however, was only accepted for observation status Hold home Xarelto and aspirin for possible lumbar puncture Solumedrol 250 mg one time for headache and possible lupus exacerbation Migraine cocktail q6h prn CTA head and CTV head to evaluate for vascular pathology as etiology of symptoms, will monitor renal function. Patient is agreeable. Resumed home medications DVT Prophylaxis Home Xarelto, hold for possible LP GI Prophylaxis N/A Code Status: Full Pat Hawk MD PGY-3 Neurology Resident [facility] 01/31/24 Staffed with: (Dr. Bray) This patient is being followed by the Neurology Resident service. Contact attending directly during these hours: Sunday to 7:30-8:30 A.M. to Sunday 12-1:00 p.m. Primary Neurology service: [phone] Consult neurology service: [phone] Resident Stroke Service: [phone] If the patient belongs to the Stroke [facility] service please contact the Stroke [facility] directly. Associated attestation - Diogo Bray MD - 01/31/2024 8:26 PM EDT Case discussed with me over the phone. [employer] 01-31-2024 History and physical note Images from the original note were not included. [facility] Neurology General Neurology Primary Admission Note Primary Neurology service: [phone] Chief Complaint: History: Blanca Rudolph is a 33 y.o. year old L handed female who was admitted to inpatient Neurology for chief complaint of right sided headache, right Lopez's palsy and progressively worsening right sided sensation changes. She reports that about a week ago she cracked her neck and developed right sided neck pain and mild facial droop. She visited the ED and was told she had an ear infection and was started on Clindamycin and given flexeril for muscle spasms, then discharged. After discharge, her facial droop worsened so she returned to the ED. 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 Her symptoms progressed over the weekend and into this week. She has been having constant right neck pressure pain radiating to her right shinto without exacerbating or remitting factors and associated photophobia, phonophobia, right face and body abnormal sensation, intermittent right vision blurring and diplopia and right sided warm sensation. She reports this is different from prior migraines that are well controlled with Elavil which are usually bilateral, fluctuate with the weather and have intermittent bilateral vision blurring. She has never had similar symptoms before. She had followed up with ENT on 01/29 who did not identify ear infection but told her to complete antibiotics. Due to the abnormal sensations, she was told to follow with neurologist JASWANT Shipman, but she does not have an appointment until February so she returned to [place] [facility]. She had MRI brain done which showed subtle optic nerve sheath engorgement, flattened pituitary and possible DWI changes in superior convexities versus bone artifact on personal review. She received Tylenol and morphine for headache without relief. 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 She denies trauma, only reports cracking her neck which is typical for her. She denies recent illness, sick contacts, travel, changes to medications except adding Descovy to be extra careful in setting of immunosuppression from lupus medications and latent syphilis. She also had touching up of her left hand tattoo recently. She reports spider bite on left face and upper arm a few weeks prior. Denies exposure to ticks or mosquito bites. She denies possible , she has IUD and had previous tubal ligation. 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, HTN Past Medical History/Surgical History: Active Ambulatory Problems Diagnosis Date Noted Chronic hypertension 01/24/2019 History of severe pre-eclampsia 04/04/2019 Bilateral pulmonary embolism (CMS-HCC) October 2019 11/08/2019 History of DVT (deep vein thrombosis) 02/03/2020 LSIL Pap 02/04/2020 Delivery of by section 06/02/2020 Abdominal hematoma 06/09/2020 Abdominal pain 06/11/2020 Blood loss anemia 06/23/2020 Nephrotic syndrome 11/22/2022 Acute kidney injury ([facility] 11/28/2022 SLE (systemic lupus erythematosus) ([facility] 11/28/2022 Positive serology for syphilis 11/28/2022 Vitamin D deficiency 11/28/2022 Stage IV lupus nephritis (WHO) ([facility]) 12/20/2022 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 12/20/2022 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 12/20/2022 Fibromyalgia 01/23/2023 Menorrhagia with irregular cycle 02/19/2023 Other chest pain 06/19/2023 Preoperative clearance 07/05/2023 Migraine without aura and without status migrainosus, not intractable 07/05/2023 Dyspnea on exertion 08/02/2023 Right sided weakness 01/30/2024 Acid reflux 01/31/2024 Gastritis 01/31/2024 ADD (attention deficit disorder) 01/31/2024 Allergic rhinitis 01/31/2024 Alternating constipation and diarrhea 01/31/2024 Anxiety 01/31/2024 Calculus of gallbladder 01/31/2024 Cholelithiasis 01/31/2024 Cyst of Bartholin's gland duct 12/06/2022 Depressive disorder 01/31/2024 Epigastric pain 01/31/2024 RUQ cramping 01/31/2024 Exposure to HIV 12/15/2022 Frequent UTI 01/31/2024 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 Left ventricular hypertrophy 12/03/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 01/31/2024 Low grade squamous intraepithelial lesion (LGSIL) on cervicovaginal cytologic smear 12/06/2022 Microscopic hematuria 07/18/2023 Nausea 01/31/2024 Pelvic pain in female 07/09/2023 Type II diabetes mellitus ([facility]) 01/31/2024 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 Hypokalemia 01/31/2024 Resolved Ambulatory Problems Diagnosis Date Noted Dichorionic diamniotic twin in second trimester 12/23/2018 Obesity affecting 01/24/2019 Pyelectasis of fetus on ultrasound 01/24/2019 Low-lying placenta RESOLVED 01/24/2019 Polyhydramnios in second trimester 01/24/2019 Request for sterilization 02/26/2019 Twin gestation, dichorionic/diamniotic (two placentae, two amniotic sacs) 04/03/2019 care, antepartum 02/03/2020 Heartburn during 02/03/2020 Request for sterilization 02/03/2020 Abnormal glucose affecting 02/09/2020 Previous delivery, antepartum 03/23/2020 Uterine contractions during 05/25/2020 Maternal care for other (suspected) abnormality and damage, not applicable or unspecified 05/26/2020 Past Medical History: Diagnosis Date Angina pectoris ([facility]) Depression DVT (deep vein thrombosis) in Heart murmur History of gestational diabetes History of pre-eclampsia History of delivery History of twin in prior Hypertension Morbid obesity ([facility]) PPH ( hemorrhage) Pulmonary emboli ([facility]) 10/2019 Family History: Family History Problem Relation Age of Onset Stroke Mother Hypertension Mother Stroke Maternal Grandmother Kidney failure Maternal Grandmother Heart defect Son Stroke Maternal Aunt Hypertension Maternal Aunt REQUIRED DIALYSIS Social History: Social History Socioeconomic History Marital status: Single Spouse name: Not on file Number of children: Not on file Years of education: Not on file Highest education level: Not on file Occupational History Not on file Tobacco Use Smoking status: Former Current packs/day: 0.00 Types: Cigarettes Quit date: 2020 Years since quittin.7 Smokeless tobacco: Never Vaping Use Vaping status: Never Used Substance and Sexual Activity Alcohol use: Not Currently Drug use: Not Currently Types: Marijuana Comment: every day Sexual activity: Yes Other Topics Concern Caffeine Use No Social History Narrative Not on file Social Determinants of Health Financial Resource Strain: Low Risk (12/18/2022) Overall Financial Resource Strain (CARDIA) Difficulty of Paying Living Expenses: Not hard at all Food Insecurity: No Food Insecurity (01/30/2024) Hunger Screening Food Insecurity - Worry: Never True Food Insecurity - Inability: Never True Transportation Needs: No Transportation Needs (01/30/2024) PRAPARE - Transportation Lack of Transportation (Medical): No Lack of Transportation (Non-Medical): No Physical Activity: Insufficiently Active (12/18/2022) Exercise Vital Sign Days of Exercise per Week: 7 days Minutes of Exercise per Session: 20 min Stress: No Stress Concern Present (12/18/2022) [employer] [place] [employer] - Occupational Stress Questionnaire Feeling of Stress : Only a little Social Connections: Moderately Integrated (12/18/2022) Social Connection and Isolation Panel [NHANES] Frequency of Communication with Friends and Family: More than three times a week Frequency of Social Gatherings with Friends and Family: More than three times a week Attends Sabianism Services: More than 4 times per year Active Member of Clubs or Organizations: Yes Attends Club or Organization Meetings: More than 4 times per year Marital Status: Never Interpersonal Safety: Not At Risk (01/30/2024) Humiliation, Afraid, Rape, and Kick questionnaire Fear of Current or Ex-Partner: No Emotionally Abused: No Physically Abused: No Sexually Abused: No Housing Instability: Low Risk (01/30/2024) Housing Instability Housing Instability: No Medications: None Allergies: Allergies Allergen Reactions Garlic Ibuprofen Other Reaction(s): medication interference Keflex [Cephalexin] Sulfamethoxazole-Trimethoprim Rash ??? pt says she gets 'heat rash' often. however developed 'worse' rash than usual shortly after taking bactrim. has taken previously with NO reaction. Complete Review of Systems: Pertininent positives and negatives mentioned in HPI otherwise unremarkable Physical Exam Vital Signs: Vitals: 01/31/24 1535 BP: 146/83 Pulse: 76 Resp: 17 Temp: 36.7 C (98.1 F) SpO2: 99% General: Normotensive, in no acute distress. New tattoo on left hand. Obese. Signs of hyperandrogenism including facial hair and deep voice Cardiac Examination: Heart: RRR Peripheral Vascular System: Peripheral pulses intact Neurological Examination: Higher Mental Function: Orientated to time, place, person Attention span and concentration intact Recent and Remote Memory Intact Language intact Fund of knowledge appropriate Ophthalmological Examination: Clear conjunctiva, no cataracts. Undilated ophthalmoscopic examination shows normal optic disc, posterior segments, retinal vessels, and fovea on the left, unable to test on the right due to patient intolerance and difficulty maintaining open eyelid. Visual acuity with glasses: OD 20/40, OS 20/25. Cranial Nerve Examination: II: Normal tracking, no evidence of hemianopia or other visual field defect. III, IV, & : EOM intact, no ptosis, no nystagmus seen. Pupils are equal and reactive to light. V: Facial sensation is abnormal on the right with midline splitting to vibration sensation on the right VII: right peripheral weakness (Lopez's palsy) VIII: hyperacusis on the right to finger rubbing IX-X: Palate elevates in the midline. XI: Normal trapezius strength and/or movement. XII: Tongue movement is normal, position is midline and no fasciculations are observed. Tongue strength intact. Motor: Power -- No focal motor weakness noted in BL upper or lower extremities. Give-way weakness in right shoulder abduction and right dorsiflexion. Bulk and muscle tone are intact in BL upper and lower extremities. No rigidity or spasticity. No atrophy or abnormal movements noted. No dystonia, or motor tics. No bradykinesia, postural or kinetic tremor noted. No fasciculation or myotonia noted. No abnormal movements noticed. No evidence of pseudo bulbar paralysis; no sialorrhea, difficulties swallowing. There were no tremors seen Deep Tendon Reflexes: Right, Left: Biceps 2, 2 Brachioradialis 2, 2 Patellae 2, 2 Achilles 1, 1 Plantar response was flexor bilaterally. No clonus or other pathological reflexes elicited. Sensory examination: Abnormal light touch sensation in right upper and lower extremity. Decreased vibration sensation in right upper and lower extremity, Intact temperature sensation and pinprick sensation throughout. Cerebellar: Able to do [id number] bilaterally; normal coordination Gait and station: Deferred Pertinent Labs: CBC WNL ESR 2 K+ 3.4 -> 3.7 Cr 1.54 (baseline 1.4-1.7) UDS and EtOH negative UA hyaline casts and moderate hemoglobin 01/27/24: TSH 0.5, T4 0.91 01/01/24: Vit D 44.5, PTH 71, CRP 0.3, C3 138, C4 26, negative chlamydia and gonorrhea, Syphilis total >8.0, RPR with reflex positive, RPR titer 1:4 Imaging: MRI brain with and without contrast 01/31/24: mild optic nerve sheath engorgement bilaterally, flattened pituitary, possible subtle DWI changes superiorly and caudal L>R Other Testing: N/A Assessment: Blanca Rudolph is a 33 yo female with history of lupus on immunosuppression, lupus nephritis with CKD, migraines, and 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 Examination shows right Lopez's palsy, midline splitting to sensation right face, right hyperacusis, intact strength, abnormal sensation and decreased vibration on right body, normal reflexes and coordination. 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 Impression: Complicated migraine vs IIH vs lupus cerebritis Plan: Recommended admission to neuro step down unit, however, was only accepted for observation status Hold home Xarelto and aspirin for possible lumbar puncture Solumedrol 250 mg one time for headache and possible lupus exacerbation Migraine cocktail q6h prn CTA head and CTV head to evaluate for vascular pathology as etiology of symptoms, will monitor renal function. Patient is agreeable. Resumed home medications DVT Prophylaxis Home Xarelto, hold for possible LP GI Prophylaxis N/A Code Status: Full Pat Hawk MD PGY-3 Neurology Resident [facility] 01/31/24 Staffed with: (Dr. Bray) This patient is being followed by the Neurology Resident service. Contact attending directly during these hours: Sunday to 7:30-8:30 A.M. to Sunday 12-1:00 p.m. Primary Neurology service: [phone] Consult neurology service: [phone] Resident Stroke Service: [phone] If the patient belongs to the Stroke [facility] service please contact the Stroke [facility] directly. Associated attestation - Diogo Bray MD - 01/31/2024 8:26 PM EDT Case discussed with me over the phone. documented in this encounter [employer] 01-31-2024 Note Patient Education Caregiving Antibiotic Medicine, Adult Antibiotic medicines are used to treat infections caused by bacteria. These medicines do not work for illnesses caused by viruses. Antibiotics work by killing the bacteria that are making you sick, but they can also have serious side effects. Antibiotics must be used safely and only when needed. When do I need to take antibiotics? You may need antibiotics for: ? A urinary tract infection (UTI). ? Strep throat. ? Bacterial sinus infection. ? Meningitis. ? Serious lung infections. Your health care provider may start you on antibiotics while you are waiting for test results. Tests may include a culture of the throat, urine, blood, or mucus. Your health care provider may change or stop your antibiotic depending on your test results. When are antibiotics not needed? You do not need antibiotics for most common illnesses. These illnesses may be caused by a virus, not by bacteria. You do not need antibiotics for: ? The common cold. ? The flu (influenza). ? Sore throat. ? Discolored mucus. ? Bronchitis. Antibiotics are not always needed for all infections caused by bacteria. Many of these infections clear up on their own. Do not take antibiotics when they are not needed. How long should I take my antibiotic? You must take the entire amount prescribed to you. Take your antibiotics as told by your health care provider. Do not stop taking your antibiotics even if you start to feel better. If you stop taking them too soon: ? You may feel sick again. ? Your infection may get harder to treat. Each course of antibiotics needs a different length of time to work. The length of time may vary from a few days to a few weeks. What if I miss a dose? Try not to miss any doses of medicine. If you miss a dose, call your health care provider or pharmacist for help. Sometimes, it is okay to take the missed dose as soon as possible. Do not take double or extra doses. What are the risks of taking antibiotics? Antibiotics can cause: ? Allergic reactions. ? Nausea. ? Yeast infections. ? Liver problems. Antibiotics can also cause an infection called Clostridioides difficile (C. difficile or C. diff), which causes severe diarrhea. This infection happens when the antibiotics kill the healthy bacteria in your intestines. This allows C. diff to grow. C. diff needs to be treated right away. Let your health care provider know if: ? You have diarrhea while taking an antibiotic. ? You have diarrhea after you stop taking an antibiotic. C. diff infection can start weeks after stopping the antibiotic. Taking an antibiotic also puts you at risk for getting sick in the future with bacteria that do not respond to medicine (antibiotic-resistant infection). Antibiotics can cause bacteria to change so that if the antibiotic is taken again, the medicine cannot kill the bacteria. These infections can be more serious because they are hard, or sometimes impossible, to treat. Do antibiotics affect control? control pills may not work while you are taking antibiotics. If you are taking control pills: ? Keep taking them as usual. ? Use a second form of control, such as a condom, to avoid unwanted . Do this for as long as told by your health care provider. What else should I know about taking antibiotics? ? Take antibiotics exactly as told. ? Take the correct amount of medicine at the same time each day. ? Ask your health care provider: ? How long to wait between doses. ? If you should take your antibiotic with food or water. ? If you should avoid certain foods, drinks, or medicines while taking your antibiotics. ? If you need to watch for any side effects. ? Use only the antibiotics prescribed to you by your health care provider. Do not use antibiotics prescribed for someone else. ? Drink a large glass of water when taking your antibiotics unless told otherwise. Drink enough fluid to keep your urine pale yellow. ? Ask your pharmacist for a dosage syringe, cup, or spoon that correctly measures your antibiotics. ? Ask your pharmacist or health care provider how to safely get rid of leftover medicine. Follow these instructions at home: ? Take your antibiotics as told by your health care provider. Do not stop taking your antibiotics even if you start to feel better. ? Return to your normal activities as told by your health care provider. Ask your health care provider what activities are safe for you. Contact a health care provider if: ? Your symptoms get worse. ? You have new joint pain or muscle aches that begin after starting your antibiotic. ? You have side effects from your antibiotic, such as: ? Stomach pain. ? Diarrhea. ? Nausea. ? White patches in your mouth or throat. Get help right away if: ? You have signs of a severe allergic reaction to antibiotics. If you have any o (more content not included)... [facility] 01-30-2024 History of Present illness Narrative Patient ID: Blanca Rudolph is a 33 y.o. female. Chief Complaint: Chief Complaint Patient presents with Tinnitus History: Blanca Rudolph is a pleasant 33 y.o. female who presents today for tinnitus. Patient was referred by Dr. Cortez MD, Otolaryngology. Patient admits to a ticking sound in her ear. Patient recently had an ear infection and was diagnosed with lopez's palsy. Patient also reports dropping and was prescribed antibiotics. Patient denies hearing loss, otalgia, and otorrhea.. Patient admits to a clicking noise in her ear. Patient admits to cerumen. Patient has experienced dizziness and headaches. Patient notes her headaches occur once a week. She notes she was given tylenol for her headaches and notes she hasn't been taking it recently. Patient states that half of her body feels off, she believes it's something with her nerves. Patient was prescribed eardrops for her tinnitus. Past History: The following portions of the patient's history were reviewed and updated as appropriate: MEDICATIONS Current Outpatient Medications: acetaminophen (TylenoL) 325 mg tablet, Take 2 tablets (650 mg total) by mouth every 6 (six) hours as needed for pain., Disp: 30 tablet, Rfl: 0 acyclovir (ZOVIRAX) 400 mg tablet, Take 1 tablet (400 mg total) by mouth 5 (five) times a day for 7 days., Disp: 35 tablet, Rfl: 0 albuterol (PROVENTIL HFA;VENTOLIN HFA) 90 mcg/actuation inhaler, Inhale 2 puffs every 6 (six) hours as needed for wheezing., Disp: 18 g, Rfl: 11 allopurinoL (ZYLOPRIM) 100 mg tablet, Take 1 tablet (100 mg total) by mouth in the morning., Disp: , Rfl: amitriptyline (ELAVIL) 50 mg tablet, Take 1 tablet (50 mg total) by mouth nightly. Take1 tablets (50 mg) nightly, Disp: 30 tablet, Rfl: 5 aspirin 81 mg, Take 1 tablet (81 mg total) by mouth in the morning., Disp: , Rfl: blood pressure monitor kit, TAKE B/P 2-3 TIMES PER WEEK, Disp: 1 each, Rfl: 0 bumetanide (BUMEX) 2 mg tablet, take 1 and 1/2 tablets by mouth twice a day before meals, Disp: 90 tablet, Rfl: 0 carvediloL (COREG) 6.25 mg tablet, Take 1 tablet (6.25 mg total) by mouth in the morning and 1 tablet (6.25 mg total) before bedtime., Disp: 60 tablet, Rfl: 11 cholecalciferol (VITAMIN D3) 50,000 units capsule, Take 1 capsule (50,000 Units total) by mouth once a week., Disp: , Rfl: clindamycin (CLEOCIN) 150 mg capsule, Take 2 capsules (300 mg total) by mouth 3 (three) times a day for 10 days., Disp: 60 capsule, Rfl: 0 cyanocobalamin 1000 MCG tablet, Take 1 tablet (1,000 mcg total) by mouth in the morning., Disp: , Rfl: cyclobenzaprine (FLEXERIL) 10 mg tablet, Take 1 tablet (10 mg total) by mouth 2 (two) times a day as needed for muscle spasms., Disp: 10 tablet, Rfl: 0 DESCOVY 200-25 mg per tablet, Take 1 tablet by mouth in the morning., Disp: , Rfl: dicyclomine (BENTYL) 10 mg capsule, Take 1 capsule (10 mg total) by mouth in the morning and 1 capsule (10 mg total) at noon and 1 capsule (10 mg total) in the evening and 1 capsule (10 mg total) before bedtime., Disp: , Rfl: famotidine (PEPCID) 20 mg tablet, Take 1 tablet (20 mg total) by mouth in the morning., Disp: 90 tablet, Rfl: 3 ferrous sulfate (FERROUSUL) 325 (65 FE) mg tablet, Take 1 tablet (325 mg total) by mouth daily with breakfast., Disp: 30 tablet, Rfl: 6 ketoconazole (NIZORAL) 2 % shampoo, Apply 1 Application topically 2 (two) times a week., Disp: , Rfl: magnesium oxide (MAGOX) 400 mg tablet, Take 1 tablet (400 mg total) by mouth in the morning and 1 tablet (400 mg total) before bedtime., Disp: , Rfl: methocarbamoL (ROBAXIN) 750 mg tablet, Take 1 tablet (750 mg total) by mouth as needed for muscle spasms., Disp: , Rfl: multivitamin (THERAGRAN) tablet, Take 1 tablet by mouth in the morning., Disp: , Rfl: mycophenolate (CELLCEPT) 500 mg tablet, 3 tab twice daily, Disp: 180 tablet, Rfl: 3 potassium chloride (KLOR-CON M 20) 20 MEQ CR tablet, Take 1 tablet (20 mEq total) by mouth in the morning and 1 tablet (20 mEq total) before bedtime., Disp: 180 tablet, Rfl: 3 predniSONE (DELTASONE) 5 mg tablet, 1.5 TAB FOR 2 WEEKS,THEN 1 TAB DAILY, Disp: 45 tablet, Rfl: 3 PROVERA 10 mg tablet, Take 1 tablet (10 mg total) by mouth in the morning., Disp: , Rfl: rivaroxaban (XARELTO) 20 mg tablet tablet, Take 1 tablet (20 mg total) by mouth in the morning., Disp: 90 tablet, Rfl: 3 rizatriptan (MAXALT) 10 mg tablet, Take 1 tablet just after onset of migraine. May repeat the dose after 2 hours if migraine persists. Max of 2 doses per 24 hours., Disp: 12 tablet, Rfl: 2 voclosporin 7.9 mg capsule, Take 23.7 mg by mouth in the morning and 23.7 mg before bedtime., Disp: 60 capsule, Rfl: 3 ALLERGIES Garlic, Ibuprofen, Keflex [cephalexin], and Sulfamethoxazole-trimethoprim PAST MEDICAL HISTORY Past Medical History: Diagnosis Date ADD (attention deficit disorder) Angina pectoris ([facility] Depression DVT (deep vein thrombosis) in Heart murmur History of gestational diabetes History of pre-eclampsia History of delivery History of twin in prior Hypertension Morbid obesity ([facility]) Nephrotic syndrome 11/22/2022 PPH ( hemorrhage) Pulmonary emboli ([facility]) 10/2019 Request for sterilization 02/03/2020 Signed 02/03/2020 [place] Resident SLE (systemic lupus erythematosus) ([facility] 11/28/2022 PAST SURGICAL HISTORY Past Surgical History: Procedure Laterality Date REPEAT N/A 04/03/2019 Performed by Aquiles Abbott MD at [facility] OR REPEAT TUBAL LIGATION N/A 06/02/2020 Performed by John Person MD at [facility] OR D AND C SUCTION N/A 03/18/2018 Performed by Kat Jeffers MD at [facility] SOCIAL HISTORY Social History Tobacco Use Smoking status: Former Current packs/day: 0.00 Types: Cigarettes Quit date: 2020 Years since quittin.7 Smokeless tobacco: Never Vaping Use Vaping status: Never Used Substance Use Topics Alcohol use: Not Currently Drug use: Not Currently Types: Marijuana Comment: every day FAMILY HISTORY Family History Problem Relation Age of Onset Stroke Mother Hypertension Mother Stroke Maternal Grandmother Kidney failure Maternal Grandmother Heart defect Son Stroke Maternal Aunt Hypertension Maternal Aunt REQUIRED DIALYSIS REVIEW OF SYSTEMS Review of Systems Constitutional: Negative for fever and chills. Eyes: Negative for visual disturbance. Respiratory: Negative for cough and shortness of breath. Gastrointestinal: Negative for nausea and vomiting. Endocrine: Negative for cold intolerance and heat intolerance. Genitourinary: Negative for difficulty urinating. Musculoskeletal: Negative for arthralgias. Skin: Negative for rash. Allergic/Immunologic: Negative for food allergies. Neurological: Negative for seizures. Hematological: Does not bruise/bleed easily. Psychiatric/Behavioral: Negative for confusion. Data Review: Physicial Exam: Resp 18 Ht 172.7 cm (5' 8 ) Wt 124.7 kg (275 lb) LMP 01/22/2024 (Exact Date) BMI 41.81 kg/m Constitution: Patient appears healthy, alert, oriented, with their usual voice, communication, and affect Head and Face: Normocephalic and Atraumatic. Facial nerve function normal Eyes: No Strabismus and EOM normal Ear: external ear normal, canal normal, and TM normal without fluid or infection Nose and Nasal Cavity: The external appearance, nasal mucosa, septum, and turbinates are unremarkable without drainage or lesion Oral Cavity: The lips, gums and teeth are unremarkable without mass or lesion. Neck: No asymmetry or mass, thyroid normal, no lymphadenopathy. Salivary glands normal. Cranial Nerves: Cranial nerves intact Procedure: Microscopic Examination Pre Op Diagnosis: Chronic Otitis Post Op Diagnosis: Same Procedure: Otologic Microscopic Examination Surgeon: Jenny Cornell MD Consent: Verbal Consent was obtained prior to the procedure. Anesthesia: None Complications: none Procedure: In a reclined position, using an otologic microscope, the examination was performed. Findings: See the findings recorded under the physical examination. Assessment Impression: Lopez's palsy III/ Left Tinnitus resolved Plan: - Microscopic examination was completed in office today. The ears appear generally healthy. - I recommended to continue following up with neurology for lopez's palsy and headaches. - Molina oil handout issued. - Follow-up as needed. Visit Diagnosis and Orders: Blanca was seen today for tinnitus. Diagnoses and all orders for this visit: Lopez's palsy Tinnitus of left ear Scribe Statement Scribed for JENNY CORNELL MD by bindu Head. Provider Statement I JENNY CORNELL MD personally performed the services described in the documentation as described by the above named scribe. It is both accurate and complete at the time of final signature. Rosette Vines MA 01/30/24 1021 [facility] 01-30-2024 Instructions Devon Black - 01/30/2024 10:00 AM EDT - Microscopic examination was completed in office today. The ears appear generally healthy. - I recommended to continue following up with neurology for lopez's palsy and headaches. - Follow-up as needed. I recommend use of oil eardrops for management of itching and debris buildup, 2-3 eardrops 2-3 times per week. Molina oil or sweet oil can be used, such eardrops are often available at compounding pharmacies. documented [facility] this [facility]28[facility]24 Miscellaneous Notes Patient stated there has been times where she has been dropping things. Patient feels she needs to be seen sooner than MARCH 14. Patient stated she went back to ED and was advised to see patient sooner. Last appt: 09/07/23. Patient is on prednisone and was advised to have event services manager to bump up the Prednisone. Want to make sure this is ok w/ NEUROLOGY. Please advise I am okay with Rheumatology bumping up Prednisone as they see fit. I am unsure what is meant by dropping things and how that may relate to needing a sooner appointment. Please clarify. Thanks. - [facility] Could you please call patient give above message and get clarification RN contacted patient to clarify original message. Patient stated since the diagnosis of bells palsy she has noticed an increase in right sided weakness. It is not constant. She believes it is nerve related. Patient was reminded of appointment on 03/14/24. Patient was seen in the ER yesterday for same issue and imagining was completed. 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 ENT stated that patient has taken all medication for ear infection and does not think that patient's symptoms are associated with their ears. Patient is currently admitted to the hospital and is under Neurological care. - [facility] documented in this encounter [facility] 01-28-2024 Telephone encounter Note Patient stated there has been times where she has been dropping things. Patient feels she needs to be seen sooner than MARCH 14. Patient stated she went back to ED and was advised to see patient sooner. Last appt: 09/07/23. Patient is on prednisone and was advised to have event services manager to bump up the Prednisone. Want to make sure this is ok w/ NEUROLOGY. [facility] 01-28-2024 Telephone encounter Note Please advise [facility] 01-28-2024 Telephone encounter Note I am okay with Rheumatology bumping up Prednisone as they see fit. I am unsure what is meant by dropping things and how that may relate to needing a sooner appointment. Please clarify. Thanks. - [facility] 01-28-2024 Telephone encounter Note Could you please call patient give above message and get clarification [facility] 01-28-2024 Telephone encounter Note RN contacted patient to clarify original message. Patient stated since the diagnosis of bells palsy she has noticed an increase in right sided weakness. It is not constant. She believes it is nerve related. Patient was reminded of appointment on 03/14/24. Patient was seen in the ER yesterday for same issue and imagining was completed. 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 ENT stated that patient has taken all medication for ear infection and does not think that patient's symptoms are associated with their ears. [facility] 01-28-2024 Telephone encounter Note Patient is currently admitted to the hospital and is under Neurological care. - [facility] 01-09-2024 Note 01/09/2024 Subjective Patient ID: Blanca Rudolph is a 33 y.o. female who presents for Exposure to HIV and Med Management. HPI: This is a 57-[id number]-dto-female patient on Descovy since November 2022 for preexposure prophylaxis (PrEP) to prevent HIV infection. Patient is presenting to [facility] for a 3 months follow-up visit. Patient reports tolerance and compliance to ART without missed doses and denies any side effect. Of note, the patient was found to have a RPR titer of 1:1024 on 11/22/2022 during her autoimmune work-up at [facility] for SLE and nephrotic syndrome.Patient is established [...] DVT (deep vein thrombosis) Fibromyalgia 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 Delivery of by [...] Socioeconomic History Marital (more content not included)... [facility] 12-24-2023 History of Present illness Narrative Images from the original note were not included. Subjective Patient ID: Blanca Rudolph is a 33 y.o. female who presents for Flat Foot (Pt presents today for BL flat feet, she has been going to the gym but her Rt foot will become bothersome, feeling like it is sprained. /SS: 10). HPI This is an established patient who returns to clinic with concern of right foot pain. Patient states that for about a year she has had pain on and off along the right ankle. Worse with walking, standing, activity at the gym. Symptoms described as sharp in nature, aching. She has not tried any treatment. Review of Systems Constitutional: Positive for activity change. Negative for appetite change. Respiratory: Negative for chest tightness and shortness of breath. Cardiovascular: Negative for chest pain. Musculoskeletal: Positive for arthralgias and gait problem. Skin: Negative for color change and wound. Neurological: Negative for weakness and numbness. Psychiatric/Behavioral: Negative for agitation and behavioral problems. Hematological: Does not bruise/bleed easily. Endocrine: Negative for cold intolerance and heat intolerance. Allergic/Immunologic: Negative for immunocompromised state. Past medical History Past Medical History: Diagnosis Date Bartholin cyst Bilateral pulmonary embolism (CMS/HCC) BMI 45.0-49.9, adult (CMS/HCC) Deep vein thrombosis (CMS/HCC) Encounter for gynecological examination (general) (routine) with abnormal findings Follow-up exam History of transfusion Hypertension (CMS/HCC) Low grade squamous intraepithelial lesion on cytologic smear of cervix (LGSIL) Lupus (CMS/HCC) Menorrhagia Ovarian cyst Medications Current Outpatient Medications: acetaminophen (Tylenol) 500 MG tablet, Take 500 mg by mouth every 6 (six) hours if needed., Disp: , Rfl: albuterol HFA 90 mcg/act inhaler, inhale 2 puffs by mouth and INTO THE LUNGS every 4 hours if needed, Disp: , Rfl: allopurinol (Zyloprim) 100 MG tablet, Take 100 mg by mouth in the morning., Disp: , Rfl: amitriptyline (Elavil) 25 MG tablet, Take 50 mg by mouth at bedtime, Disp: , Rfl: aspirin 81 MG EC tablet, Take 81 mg by mouth in the morning., Disp: , Rfl: bumetanide (Bumex) 2 MG tablet, Take 2 mg by mouth in the morning and 2 mg before bedtime., Disp: , Rfl: carvedilol (Coreg) 6.25 MG tablet, Take 6.25 mg by mouth in the morning and 6.25 mg in the evening., Disp: , Rfl: cetirizine (ZyrTEC) 10 MG tablet, , Disp: , Rfl: cholecalciferol (Vitamin D-3) 1.25 MG (35951 UT) capsule, Take 50,000 Units by mouth 1 (one) time per week., Disp: , Rfl: cyanocobalamin (Vitamin B-12) 1000 MCG tablet, Take 1,000 mcg by mouth in the morning., Disp: , Rfl: Descovy 200-25 MG tablet, Take 1 tablet by mouth in the morning., Disp: , Rfl: dicyclomine (Bentyl) 10 MG capsule, Take 10 mg by mouth in the morning and 10 mg at noon and 10 mg in the evening and 10 mg before bedtime., Disp: , Rfl: ergocalciferol (Vitamin D2) 1.25 MG (03196 UT) capsule, , Disp: , Rfl: etonogestrel-eluting (Nexplanon) 68 mg contraceptive implant, Nexplanon, Disp: , Rfl: famotidine (Pepcid) 20 MG tablet, Take 20 mg by mouth in the morning., Disp: , Rfl: FeroSul 325 (65 Fe) MG tablet, , Disp: , Rfl: fluocinonide (Lidex) 0.05 % external solution, , Disp: , Rfl: ketoconazole (NIZOral) 2 % shampoo, Apply 1 Application topically 2 (two) times a week, Disp: , Rfl: Lupkynis 7.9 MG capsule, Take 7.9 mg by mouth in the morning and 7.9 mg before bedtime., Disp: , Rfl: MAGnesium-Oxide 400 (240 Mg) MG tablet, , Disp: , Rfl: medroxyPROGESTERone (Provera) 10 MG tablet, Take 1 tablet (10 mg) by mouth Daily, Disp: 30 tablet, Rfl: 3 Multiple Vitamin (Multi-Vitamin) tablet, Take 1 tablet by mouth in the morning., Disp: , Rfl: mycophenolate (Cellcept) 500 MG tablet, Take 1,000 mg by mouth in the morning and 1,000 mg before bedtime., Disp: , Rfl: ondansetron ODT (Zofran-ODT) 4 MG disintegrating tablet, dissolve 1 tablet ON TONGUE every 8 hours if needed for nausea, Disp: , Rfl: potassium chloride CR (Klor-Con M20) 20 MEQ ER tablet, Take 20 mEq by mouth in the morning and 20 mEq before bedtime., Disp: , Rfl: predniSONE (Deltasone) 20 MG tablet, Take 15 mg by mouth Daily, Disp: , Rfl: rizatriptan (Maxalt) 10 MG tablet, Take 10 mg by mouth 1 (one) time if needed for migraine, Disp: , Rfl: Xarelto 20 MG tablet, Take 1 tablet by mouth in the morning., Disp: , Rfl: Current Facility-Administered Medications: etonogestrel-eluting 68 mg contraceptive implant 1 each, 1 each, Implant, Once, Mayco Albright DO Levonorgestrel intrauterine device 52 mg, 52 mg, Intrauterine, Continuous, Mayco Albright DO, 52 mg at 09/26/23 1343 Allergies Cephalexin, Garlic, Ibuprofen, and Sulfamethoxazole-trimethoprim Past Surgical History Past Surgical History: Procedure Laterality Date SECTION, LOW TRANSVERSE CT ANGIOGRAM HEART CORONARY 07/26/2020 CT ANGIOGRAM TAVR 07/26/2020 CT ANGIOGRAM HEART CORONARY 04/11/2020 CT ANGIOGRAM TAVR 04/11/2020 CT ANGIOGRAM HEART CORONARY 11/30/2019 CT ANGIOGRAM TAVR 11/30/2019 CT ANGIOGRAM HEART CORONARY 11/07/2019 CT ANGIOGRAM TAVR 11/07/2019 CT ANGIOGRAM HEART CORONARY 04/07/2019 CT ANGIOGRAM TAVR 04/07/2019 CT ANGIOGRAM HEART CORONARY 06/20/2023 CT ANGIOGRAM HEART CORONARY 06/20/2023 CT GUIDED PERCUTANEOUS BIOPSY RENAL RIGHT Right 11/27/2022 CT GUIDED PERCUTANEOUS BIOPSY RENAL RIGHT 11/27/2022 TUBAL LIGATION Family History Family History Problem Relation Name Age of Onset Hypertension Mother Shaila Rudolph Asthma Mother Shaila Rudolph Stroke Mother Shaila Rudolph Congenital heart disease Son congenital heart defect Objective Physical Exam Constitutional: Appearance: She is obese. HENT: Head: Normocephalic and atraumatic. Cardiovascular: Pulses: Normal pulses. Pulmonary: Effort: Pulmonary effort is normal. No respiratory distress. Abdominal: Palpations: There is no mass. Musculoskeletal: Cervical back: No rigidity. Comments: Weightbearing examination reveals slight planus morphology with what appears to be metatarsus adductus, bilaterally Right foot: Diffuse tenderness to palpation in multiple areas, along the PT tendon, sinus tarsi, posterolateral ankle joint and peroneal tendons, anterolateral ankle joint. Patient also notes some tenderness along the 5th metatarsal. Muscle strength 5/5 for all quadrants. Ankle dorsiflexion 0 degrees with the knee extended, flexed. Skin: Capillary Refill: Capillary refill takes less than 2 seconds. Findings: No lesion or rash. Neurological: Mental Status: She is alert. Comments: No loss of protective sensation, gross sensation intact. Psychiatric: Mood and Affect: Mood normal. Behavior: Behavior normal. XR foot 3+ views right Imaging Result: AP, medial oblique, lateral views are weight-bearing. They reveal significant metatarsus adductus. There is large os trigonum noted over the posterolateral talar process. Assessment/Plan ICD-10-CM 1. Right foot pain M79.671 XR foot 3+ views right 2. 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 Metatarsus adductus of right foot Q66.221 XR foot 3+ views right 4. Equinus contracture of right ankle M24.571 5. Instability of right ankle joint M25.371 6. Difficulty walking R26.2 Patient was examined and evaluated. 3 views of the affected foot were taken in office today and I discussed my findings. Patient has mild pes planovalgus deformity with metatarsus adductus deformity which seems to be leading to the symptomatology. She does also have a large os trigonum over the posterolateral ankle which is likely causing some mild impingement symptoms. Causes and treatment options were discussed in detail. At this time I am recommending a home exercise program focusing on gastroc soleal contracture and periarticular ankle strengthening exercises. Program was printed off and given to the patient. Complete daily as instructed. I have recommended orthotic therapy to help control the foot structure and reduced valgus stresses across the midfoot. Patient was dispensed power step orthotics today. I have recommended an ASO brace for stabilization and limitation of motion of the ankle and rearfoot. Patient agreed and was fitted for the appropriate brace. Goals of therapy include prevent further injury, reduced valgus instability of the hindfoot into increased ability to a hypermobile foot. Anticipated time of use - indefinite. At the time of dispensing it is suitable and not substandard. Patient is able to apply the brace independently. It is comfortable to walk and fits inside the shoe. I also recommended orthotics to help reduce lateral column overload. Patient fitted for and dispensed power steps today. I also discussed surgical reconstruction if conservative care is unsuccessful. Patient has lupus and so is already on multiple medications. She is unable to take nonsteroidal anti-inflammatories due to being on multiple blood thinners as well. At this time I recommend ice, heat as necessary. If she has a severe flare of symptomatology I recommend follow up with our office for consideration of targeted injection. Otherwise I will see her back as needed. This note was created with the assistance of a speech recognition program. While intending to generate a timely document that accurately reflects the content of the visit, no guarantee can be provided that every grammatical or spelling mistake has been or will be identified or corrected. Thank you for your understanding. Pasquale De Luna DPM documented in this encounter [facility] 10-05-2023 Note 10/05/2023 Subjective Patient ID: Blanca Rudolph is a 32 y.o. female who presents for Exposure to HIV. HPI: This is a 89-[id number]-moh-female patient on Descovy since November 2022 for preexposure prophylaxis (PrEP) to prevent HIV infection. Patient is presenting to [facility] for a 3 months follow-up visit. Patient reports tolerance and compliance to ART without missed doses and denies any side effect. Of note, the patient was found to have a RPR titer of 1:1024 on 11/22/2022 during her autoimmune work-up at [facility] for SLE and nephrotic syndrome. She [...] DVT (deep vein thrombosis) Fibromyalgia 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 Delivery of by [...] directed Subcutaneous No (more content not included)... [facility] 08-02-2023 History of Present illness Narrative Images [...] p.r.n. rescue inhaler by primary care physician administrative office assistant within the last couple of years [...] Date ADD (attention deficit disorder) Angina pectoris ([facility] Depression DVT (deep vein thrombosis) in Heart murmur History of gestational diabetes History of pre-eclampsia History of delivery History of twin in prior Hypertension Morbid obesity ([facility]) Nephrotic syndrome 11/22/2022 PPH ( hemorrhage) Pulmonary emboli ([facility]) 10/2019 Request for sterilization 02/03/2020 Signed 02/03/2020 [place] Resident SLE (systemic lupus erythematosus) ([facility] 11/28/2022 Past Surgical History: Procedure Laterality Date REPEAT N/A 04/03/2019 Performed by Aquiles Abbott MD at [facility] OR REPEAT TUBAL LIGATION N/A 06/02/2020 Performed by John Person MD at [facility] OR D AND C SUCTION N/A 03/18/2018 Performed by Kat Jeffers MD at [facility] Garlic, Ibuprofen, Keflex [cephalexin], and Sulfamethoxazole-trimethoprim [...] kg/m Cardiac Results: ECHO 2023 PACS Images ([facility]) Show images for Echo complete W/O contrast [...] -3.12 4.22 - 6.39 (cm) Data set: [place] Z-score normal range: +/-1.65 BSA formula: [employer] Doppler Measurements AV AV valve area 5.67 [...] pulmonary embolism. No obvious acute dissection. Lung becerril clear. Mild scoliosis of the thoracic spine with scattered Schmorl's nodes particularly in the lower thoracic spine. Dr. Maylin Portillo DO. [facility] Office: [phone] documented in this encounter [facility] 07-31-2023 History of Present illness Narrative Images from the original note were not included. [address] [facility] [address] [facility] [id number] Date of Service: 07/31/2023 Subjective: Blanca Rudolph [...] 1. Stage IV lupus nephritis (WHO) ([facility] - predniSONE (DELTASONE) 20 mg tablet; Take [...] SLE type, unspecified organ involvement status ([facility]) - predniSONE (DELTASONE) 20 mg tablet; Take 1 tablet (20 mg total) by mouth in the morning. One tab daily. Dispense: 30 tablet; Refill: 1 - mycophenolate (CELLCEPT) 500 mg tablet; 3 tab twice daily Dispense: 180 tablet; Refill: 3 3. 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 BMI 39.0-39.9,adult - Ambulatory referral to [facility] ([facility]); Future At this point patient continued [...] or corrected. Thank you for your understanding. [facility] Rheumatology Dr. Sherman Calle MD [address] [place] [address] Office: [phone] documented in this encounter [facility] 07-16-2023 Miscellaneous Notes Patient called in requested office note be faxed to [phone] note faxed per her request documented in this encounter [facility] 07-16-2023 Telephone encounter Note Patient called in requested office note be faxed to [phone] note faxed per her request [facility] 07-16-2023 Miscellaneous Notes Pt is [...] ER. PT INFORMED. documented in this encounter [facility] 07-16-2023 Telephone encounter Note Pt is not feeling well. Wondering if she was to take medication for it she would be able to take anything other then tylenol. Son tested positive for Flu A. She tested negative at this time. [facility] 07-16-2023 Telephone encounter Note I do not know what kind sickness she is complaining of however she can try Tylenol if that does not work then she can go to ER. [facility] 07-16-2023 Telephone encounter Note PT INFORMED. [facility] 07-16-2023 Miscellaneous Notes Patient called in stating that she is sick and she would like to Zur[place], she is questioning if she would be able to take it along with her Ubrelvy. Best contact for patient [phone] She may take Zyrtec and Ubrelvy together. - [facility] Patient informed and voiced understanding. documented in this encounter [facility] 07-16-2023 Telephone encounter Note Patient called in stating that she is sick and she would like to [place], she is questioning if she would be able to take it along with her Ubrelvy. Best contact for patient [phone] [facility] 07-16-2023 Telephone encounter Note She may take Zyrtec and Ubrelvy together. - [facility] 07-16-2023 Telephone encounter Note Patient informed and voiced understanding. [facility] 07-13-2023 Miscellaneous Notes Fax received from [facility]. A prior authorization is needed for the medication Ubrelvy. Contact: RN has completed PA on CMM. Nuno: [email or web address] documented in this encounter [facility] 07-13-2023 Telephone encounter Note Fax received from [facility]. A prior authorization is needed for the medication Ubrelvy. Contact: [facility] 07-13-2023 Telephone encounter Note RN has completed PA on CMM. Nuno: [email or web address] [facility] 07-12-2023 History of Present illness [...] Date ADD (attention deficit disorder) Angina pectoris ([facility] Depression DVT (deep vein thrombosis) in Heart murmur History of gestational diabetes History of pre-eclampsia History of delivery History of twin in prior Hypertension Morbid obesity ([facility]) Nephrotic syndrome 11/22/2022 PPH ( hemorrhage) Pulmonary emboli ([facility]) 10/2019 Request for sterilization 02/03/2020 Signed 02/03/2020 [place] Resident SLE (systemic lupus erythematosus) ([facility] 11/28/2022 Surgical History: Past Surgical History: Procedure Laterality Date REPEAT N/A 04/03/2019 Performed by Aquiles Abbott MD at [facility] OR REPEAT TUBAL LIGATION N/A 06/02/2020 Performed by John Person MD at [facility] OR D AND C SUCTION N/A 03/18/2018 Performed by Kat Jeffers MD at [facility] Social History: Social History Socioeconomic History [...] min Stress: No Stress Concern Present (12/18/2022) [employer] [place] [employer] - Occupational Stress Questionnaire Feeling of Stress : Only a little Social Connections: Moderately Integrated (12/18/2022) Social Connection and Isolation Panel [NHANES] Frequency of Communication with Friends and Family: More than three times a week Frequency of Social Gatherings with Friends and Family: More than three times a week Attends Sabianism Services: More than 4 times per year [...] IRONSAT 29 11/22/2022 FERRITIN 317 (H) 11/22/2022 [id number] 11/22/2022 FOLATE >25.0 11/22/2022 Mineral and [...] of this patient. Please contact me at [phone] (Office) or [phone] (Answering service) with any questions. Sade Rosas MD [facility] This note was created with the assistance of a speech-recognition program. Although the intention is to generate a document that actually reflects the content of the visit, no guarantees can be provided that every mistake has been identified and corrected by editing. documented in this encounter [facility] 07-06-2023 Note Spoke with patient. No new symptoms. I advised patient that she may be asked to get a repeat. She has a few upcoming appointments at [facility] and could get drawn likely at the same time. [facility] 07-06-2023 Note 07/06/2023 Subjective Patient ID: Blanca Rudolph is a 32 y.o. female who presents for Health Maintenance and Exposure to HIV. HPI This is a 31-dmhix-ypk-female patient on Descovy presenting to [facility] for a 3 months follow-up visit for preexposure prophylaxis to prevent HIV infection (PReP). Patient was started on Descovy on 11/2022. The patient reports tolerance and compliance to ART without adverse reaction. Of note, the patient was found to have a RPR titer of 1:1024 on 11/22/2022 during her autoimmune work-up at [facility] for SLE and nephrotic syndrome. She [...] Vitamin D deficiency SLE (systemic lupus erythematosus) ([facility]) Pulmonary embolism ([facility]) Positive serology for syphilis On anticoagulant therapy Nephrotic syndrome Menorrhagia with irregular cycle Low grade squamous intraepithelial lesion (LGSIL) on cervicovaginal cytologic smear Low grade squamous intraepithelial lesion (LGSIL) on cervical Pap smear History of severe pre-eclampsia History of DVT (deep vein thrombosis) Fibromyalgia 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 Delivery of by [...] Smoking status: F (more content not included)... [facility] 07-06-2023 Miscellaneous Notes Patient is calling in to inform us of some more family history. Patient stated that her aunt and mother also have high blood pressure, and her grandmother as well had kidney issues and was on dialysis CHART UPDATED documented in this encounter [facility] 07-06-2023 Telephone encounter Note Patient is calling in to inform us of some more family history. Patient stated that her aunt and mother also have high blood pressure, and her grandmother as well had kidney issues and was on dialysis [facility] 07-06-2023 Telephone encounter Note CHART UPDATED [facility] 07-05-2023 History of Present illness Narrative [facility] Office Note 07/05/2023 10:19 AM Patient info: Blanca Rudolph is a 32 y.o. female Account No.: [id number] Acct: : 1990 PCP: Billy Zelaya PA-C [...] of significant head injury/trauma: (-) hx of AUTOMOTIVE PARTS COUNTER ASSOCIATE infection: (-) hx of stroke or cerebrovascular [...] the office in 2 months in the [place] office Electronically Signed by: Pasquale Alexander PA-C 07/05/23 1213 documented in this encounter [facility] 07-05-2023 History of Present illness Narrative Patient had video visit to Continue Xarelto 20 mg daily. Follow-up in 1 year with [facility] CMP prior to visit. Dr. Warren will leave instruction for preop preparation for patient's oophorectomy surgery August 15. documented in this encounter [facility] 07-05-2023 History of Present illness Narrative Images from the original note were not included. [facility] visit per patient's request. 07/05/23 Blanca Rudolph [...] that there are some limitations compared to chqh-pm-sjaq evaluations. We elected to proceed. History of [...] Date ADD (attention deficit disorder) Angina pectoris ([facility]) Depression DVT (deep vein thrombosis) in Heart murmur History of gestational diabetes History of pre-eclampsia History of delivery History of twin in prior Hypertension Morbid obesity ([facility]) Nephrotic syndrome 11/22/2022 PPH ( hemorrhage) Pulmonary emboli ([facility]) 10/2019 Request for sterilization 02/03/2020 Signed 02/03/2020 [place] Resident SLE (systemic lupus erythematosus) ([facility]) 11/28/2022 Past Surgical History: Procedure Laterality Date REPEAT N/A 04/03/2019 Performed by Aquiles Abbott MD at [facility] OR REPEAT TUBAL LIGATION N/A 06/02/2020 Performed by John Person MD at [facility] OR D AND C SUCTION N/A 03/18/2018 Performed by Kat Jeffers MD at [facility] Family History Problem Relation Age of [...] min Stress: No Stress Concern Present (12/18/2022) [place] [employer] - Occupational Stress Questionnaire Feeling of Stress : Only a little Social Connections: Moderately Integrated (12/18/2022) Social Connection and Isolation Panel [NHANES] Frequency of Communication with Friends and Family: More than three times a week Frequency of Social Gatherings with Friends and Family: More than three times a week Attends Sabianism Services: More than 4 times per year [...] For diagnoses: Stage IV lupus nephritis (WHO) ([facility]), Systemic lupus erythematosus, unspecified SLE type, unspecified organ involvement status ([facility]), 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 [...] For diagnoses: Stage IV lupus nephritis (WHO) ([facility]), Systemic lupus erythematosus, unspecified SLE type, unspecified organ involvement status ([facility]) Dose: 20 mg Signed by: Dr. Calle [...] Or Without Consult Result Date: 12/31/2019 Narrative: OBSTETRICS REPORT (Signed Final 12/31/2019 10:44) PATIENT INFO: ID #: [id number] : [birth year] (29 yrs)(F) Name: BLANCA DIAZ Visit Date: 12/30/2019 14:15 RONNI PERFORMED BY: Performed By: Ashwin Guallpa RDMS Attending: Samuel Beltran MD Referred By: Brandy Alexis MD Ref. Address: [address] [address] Location: [facility] SERVICE(S) PROVIDED: Basic OB >/= 14 weeks, 1 fetus [id number] INDICATIONS: Other suspected or known abnormality O35.8XX0 and damage, single fetus Obesity complicating , second O99.212 trimester Hypertension, pre-existing, second trimester O10.012 Supervision of other high risk , O09.892 second trimester ; Hx DVT and PE VITAL SIGNS: Weight (lb): 283 Height: 5'8 BMI: 43.03 EVALUATION: Num Of Fetuses: 1 Heart Rate(bpm): 155 Cardiac Activity: Present & appears normal Presentation: Cephalic Placenta: Anterior, away from cervical os P. Cord Insertion: Could Not Document Amniotic Fluid SATHYA FV: Subjectively within normal limits BIOMETRY: BPD: 31.8 mm G.Age: 16w 0d [...] gm 0 lb 5 oz 59 % OB HISTORY: : 5 GESTATIONAL AGE: LMP: 19w 0d Date: 08/19/19 LEOBARDO: 05/25/20 U/S Today: 16w 0d LEOBARDO: 06/15/20 Best: 15w 5d Det. By: Early LEOBARDO: 06/17/20 Ultrasound (12/09/19) ANATOMY: Cranium: Appears normal Cavum: Could not [...] Appears normal Other: Female external genitalia visualized. CERVIX UTERUS ADNEXA: Cervix Normal appearance by abdominal scan Uterus Gravid uterus Left Ovary Not visualized Right Ovary Visualized COMMENTS: 1. Obstetrical ultrasound, while an excellent imaging modality for the fetus, cannot detect all structural abnormalities all of the time. RECOMMENDATIONS: 1. Please see [facility] consultation letter from today. 2. Patient is scheduled in six weeks to complete the anatomic survey. Samuel Beltran MD Electronically Signed Final Report 12/31/2019 10:44 Impression: IMPRESSION: 1. Single intrauterine size consistent [...] Protein Urine Random 1,070 (H) <120 mg/L U/Pro/System Auditor Ratio Calc 0.70 (H) <0.2 Parathyroid Hormone, [...] Protein Urine Random 1,070 (H) <120 mg/L U/Pro/System Auditor Ratio Calc 0.71 (H) <0.2 Diagnosis Problem [...] to ensure the accuracy of this automated ep specialist, some errors in ep specialist may have occurred. CC: Patient Care Team: Billy Zelaya PA-C as PCP - General (Physician Armored Truck Driver) Anna Kaur RN as Registered Nurse (Obstetrics) Sherman Calle MD as Referring Physician (Rheumatology) Mayco Albright DO as Referring Physician (Obstetrics and Gynecology) PCP:Billy Zelaya Referring MD: No ref. provider found documented in this encounter [facility] 07-05-2023 Instructions Tuyet Warren MD - 07/05/2023 9:00 AM EST Continue Xarelto 20 mg daily. Follow-up in 1 year with CBC CMP prior to visit. I will leave instruction for preop preparation for patient's oophorectomy surgery August 15. documented in this encounter [facility] [id number] 07-04-2023 History of Present illness Narrative Images from the original note were not included. [address] [facility] [address] [facility] [address] Date of Service: 07/04/2023 Subjective: Blanca Rudolph [...] SLE type, unspecified organ involvement status ([facility]) - mycophenolate (CELLCEPT) 500 mg tablet; 3 [...] Future 2. Stage IV lupus nephritis (WHO) ([facility]) - mycophenolate (CELLCEPT) 500 mg tablet; 3 [...] Unlisted Lab Test; Future 3. 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 Fibromyalgia - amitriptyline [...] or corrected. Thank you for your understanding. [facility] Rheumatology Dr. Sherman Calle MD [address] [place] [address] [address] [place] [address] Office: [phone] documented in this encounter [facility] 07-03-2023 Miscellaneous Notes Surgeon: Dr. Albright Type of surgery: D&C Diagnostic Lap/ Hysteroscopy Date of surgery: 07/06/23 Surgery location: [place] Type of anesthesia: General On a blood [...] notified to address documented in this encounter [facility] 07-03-2023 Telephone encounter Note Surgeon: Dr. Albright Type of surgery: D&C Diagnostic Lap/ Hysteroscopy Date of surgery: 07/06/23 Surgery location: [place] Type of anesthesia: General On a blood thinner?: xarelto Indication? DVT/Pulmonary emboli On an antiplatelet?: ASA 81 mg Date of last EK06/19/23 Last office visit date and who they saw: 06/27/23- Dr. Harmon Their preference of how long to hold blood thinners/antiplatelet: Would like to hold ASA & Xarelto 3 days History of DVT/PE? Yes ATTN: [facility] Telephone encounter Note She would [...] after surgery when safe to do so. [facility] 07-03-2023 Telephone encounter Note Clearance faxed and Viviane notified to address [facility] 06-28-2023 Miscellaneous Notes Pt called in regards to getting her appt with [facility] rescheduled. Messaged [facility] who stated to have the pt seen in [place] with MD. Next week did not work for her so I informed her I would give her a call around 07/05/23 to try to get her scheduled for the week of 07/09/23. Called pt and scheduled follow up in [place] per [facility]. documented in this encounter [facility] 06-28-2023 Telephone encounter Note Pt called in regards to getting her appt with [facility] rescheduled. Messaged [facility] who stated to have the pt seen in [place] with MD. Next week did not work for her so I informed her I would give her a call around 07/05/23 to try to get her scheduled for the week of 07/09/23. [facility] 06-28-2023 Telephone encounter Note Called pt and scheduled follow up in [place] per [facility]. [facility] 06-21-2023 Miscellaneous Notes Patient is almost out of medication. Appointment is 07/04/23 documented in this encounter [facility] 06-21-2023 Telephone encounter Note Patient is almost out of medication. Appointment is 07/04/23 [facility] 06-19-2023 Miscellaneous Notes Pt was returning my call to inform me she was in ED and may be admitted to hospital d/t sob and chest pain. I was following up to see how she was feeling. She had no question or concerns for our office at this time. documented in this encounter [facility] 06-19-2023 Telephone encounter Note Pt was returning my call to inform me she was in ED and may be admitted to hospital d/t sob and chest pain. I was following up to see how she was feeling. She had no question or concerns for our office at this time. [facility] 06-18-2023 Miscellaneous Notes Patient called wanting to speak with a nurse to notify office of everything that's been going on with cardiology, and update on upcoming procedures. tried to call pt she currently in [facility] ed,she might try to call back documented in this encounter [facility] 06-18-2023 Telephone encounter Note Patient called wanting to speak with a nurse to notify office of everything that's been going on with cardiology, and update on upcoming procedures. [facility] 06-18-2023 Telephone encounter Note tried to call pt she currently in [facility] ed,she might try to call back [facility] 06-14-2023 Miscellaneous Notes Blanca states that she would like to know the results of the blood work and, she did complete the stress test, she also states she has been having bad headaches,she is not take any tylenol for the pain. Manager Branch advised the patient that the nurse will be notified. [phone] documented in this encounter [facility] 06-14-2023 Telephone encounter Note Blanca states that she would like to know the results of the blood work and, she did complete the stress test, she also states she has been having bad headaches,she is not take any tylenol for the pain. Manager Branch advised the patient that the nurse will be notified. [phone] [facility] 06-13-2023 Miscellaneous Notes spoke with patient and confrim appt with Dr. Bain in [place] and will have labs done tomorrow documented in this encounter [facility] 06-13-2023 Telephone encounter Note spoke with patient and confrim appt with Dr. Bain in [place] and will have labs done tomorrow [facility] 06-13-2023 Evaluation note Diagnosis Stage IV lupus nephritis (WHO) ([facility] Primary Stage 3 chronic kidney disease, unspecified whether stage 3a or 3b CKD ([facility]) documented in this encounter [facility]02-12-2024 Miscellaneous Notes* Telephone Encounter - [...] back abnormal now she is seeing a soybean specialties cook and will be doing a stress test. She also states her PCP changed she her blood pressure medication. Blanca states that heart looked enlarged when she had it check a few years ago, but Dr. Bain told her it looked fine,yet her soybean specialties cook is telling her other espitia. Blanca states that she hopes this stress test will let he know what is really going with her heart, and she would like to speak with the nurse to give more details on what is going on. Blanca requested a refill on the Bumex 2 mg. Call back [phone] * Telephone Encounter - Nora Oconnor LPN [...] that she may have documented [facility] Telephone encounter Note* Telephone Encounter - Keke [...] back abnormal now she is seeing a soybean specialties cook and will be doing a stress test. She also states her PCP changed she her blood pressure medication. Blanca states that heart looked enlarged when she had it check a few years ago, but Dr. Bain told her it looked fine,yet her soybean specialties cook is telling her other espitia. Blanca states that she hopes this stress test will let he know what is really going with her heart, and she would like to speak with the nurse to give more details on what is going on. Blanca requested a refill on the Bumex 2 mg. Call back [phone] [facility]02-12-2024 Telephone encounter Note* Telephone Encounter - Nora [...] patient is not monitoring BP at home [facility]02-12-2024 Telephone encounter Note* Telephone Encounter - Nora Oconnor LPN - 06/11/2023 9:03 AM EST Spoke with pt and she consulted cardiology and she stated they advised her to continue new medication at this time. She still expressed concerns, but will keep in touch with office about and questions that she may have [facility]02-07-2024 Miscellaneous Notes* Telephone Encounter - Irasema Corbin [...] Simone Franklin MD 06/06/2023 8:35 AM EST Kph-oc-btzlkkvi risk Irasema Corbin RN 06/06/2023 7:25 AM [...] from previous then would clear her ubaldo qzz-dn-iezxjgaq risk. She is able to do at least 4 metabolic equivalents in her daily life. LV 60-65%, mild wall thickness/hypertrophy LA - moderately dilated. * Telephone Encounter - Irasema Corbin RN - 06/06/2023 1:12 PM EST Irasema Corbin RN 06/06/2023 1:42 PM EST Back to Top Echo results and BDs recommendations called and reviewed with patient. Pt mentions calling the [facility] office this morning d/t chest discomfort and BD ordered a nuc stress exe now scheduled for 06/14/23. Will hold off sending the Preop clearance until BD reviews stress results. Message sent to [facility] office to FYI. documented in [facility] Telephone encounter Note* Telephone Encounter - Irasema [...] Simone Franklin MD 06/06/2023 8:35 AM EST Rih-vu-qhlnmgdw risk Irasema Corbin RN 06/06/2023 7:25 AM [...] from previous then would clear her ubaldo glj-ut-xuufwrpo risk. She is able to do at least 4 metabolic equivalents in her daily life. LV 60-65%, mild wall thickness/hypertrophy LA - moderately dilated. [facility]02-07-2024 Telephone encounter Note* Telephone Encounter - Irasema Corbin RN - 06/06/2023 1:12 PM EST Irasema Corbin RN 06/06/2023 1:42 PM EST Back to Top Echo results and BDs recommendations called and reviewed with patient. Pt mentions calling the [facility] office this morning d/t chest discomfort and BD ordered a nuc stress exe now scheduled for 06/14/23. Will hold off sending the Preop clearance until BD reviews stress results. Message sent to [facility] office to FYI. [facility] [id number] Miscellaneous Notes* Telephone Encounter - Digna Valladares [...] ++++++++PREOP PENDING STRESS RESULTS++++++++++++ documented in this encounter[facility] Telephone encounter Note* Telephone Encounter [...] discomfort. Last saw Dr. Franklin. Any suggestions? [facility] [id number] Telephone encounter Note* Telephone Encounter - Simone Franklin MD - 06/06/2023 9:59 AM EST Please order treadmill nuclear stress test for unstable angina [facility]02-07-2024 Telephone encounter Note* Telephone Encounter - Digna Valladares RN - 06/06/2023 9:59 AM EST Pt notified. Orders placed. Pt given central scheduling number to call and arrange [facility] [id number] Telephone encounter Note* Telephone Encounter - Irasema Corbin RN - 06/06/2023 9:59 AM EST ++++++++PREOP PENDING STRESS RESULTS++++++++++++ [facility] [id number] Miscellaneous Notes* Telephone Encounter - Kirstiedamir Sung [...] -06/19/2023 with Pasquale Alexander documented in this encounterUpper [facility]02-[facility]-2024 Telephone encounter Note* Telephone Encounter [...] IS SCHEDULED ON/WITH: -06/19/2023 with Pasquale Alexander [facility] [id number] Miscellaneous Notes* Telephone Encounter - Aster Guthrie CMA - 06/04/2023 8:29 AM EST Blanca pickard stated she went to the hospital yesterday in [place] she was having a bad flare and her heart was beating 100 bpm. She has her EMG scheduled on June 08 and her ECHO scheduled June 05. She also stated the soybean specialties cook wouldn't do anything for her until she [...] other medical dx.Please advise documented in [facility] encounterUpper [facility]24 Telephone encounter Note* Telephone Encounter - Aster Guthrie CMA - 06/04/2023 8:29 AM EST Blanca called stated she went to the hospital yesterday in [place] she was having a bad flare and her heart was beating 100 bpm. She has her EMG scheduled on June 08 and her ECHO scheduled June 05. She also stated the soybean specialties cook wouldn't do anything for her until she gets her ECHO done. She ask if you can look at her chart from yesterday. Please advise. Thanks [facility]02-05-2024 Telephone encounter Note* Telephone Encounter [...] of her whole body??? Please advise. Thanks [facility]02-05-2024 Telephone encounter Note* Telephone Encounter - Sherman Calle MD - 06/04/2023 8:29 AM EST Will discuss the need for EMG when she come to the clinic as there might be no need for that [facility]02-05-2024 Telephone encounter Note* Telephone Encounter - Aster Guthrie CMA - 06/04/2023 8:29 AM EST ..Spoke with Blanca gave message from dr calle. Pt understood [facility] [id number] Telephone encounter Note* Telephone Encounter - Clemencia [...] kidneys and her other medical dx.Please advise [facility]01-19-2024 Miscellaneous Notes* Telephone Encounter - Cynthia Dodge CMA - 05/18/2023 2:14 PM EST Left message for patient to remind them to bring their most current medication list with them to their appointment. documented in this encounterUpper [facility]01-[facility]-2024 Telephone encounter Note* Telephone Encounter - Cynthia Dodge CMA - 05/18/2023 2:14 PM EST Left message for patient to remind them to bring their most current medication list with them to their appointment. [facility]12-27-2023 History of Present illness Narrative* [...] FOR CLEARANCE IS 05/18/23 documented in this encounterCleveland [facility] HospitalGeneformics Data Systems Ltd. [facility] [id number] Hospital Discharge instructions Patient Education 09/05/2022 10:28:15 [...] Treatment for this condition includes: Antibiotic medicine. Oejm-nnb-opyesqo medicines to treat discomfort. Drinking enough water [...] Follow these instructions at home: Medicines Take fpid-ovx-prvoefd and prescription medicines only as told by [...] provider. Document Revised: 11/26/2020 Document Reviewed: 11/26/2020 [employer] Patient Education 2022 [employer]. Follow Up Care 08/15/2022 10:04:33 With:CYNTHIA GALLARDO PA-C, URL Address: [address] [place] [address] [place] [address] Business (1) When:6 months [facility] 04-13-2023 Hospital Discharge instructions Patient Education [...] powder, vinegar, hot sauces, and barbecue sauce. ?Sabine fruit juices and citrus fruits, such as oranges, shirley, and limes. ?Tomato-based foods, such as red sauce, chili, salsa, and pizza with red sauce. ?Fried and fatty foods, such as donuts, italian fries, potato chips, and high-fat dressings. ?High-fat [...] to any changes in your symptoms. Take nkaw-ljh-nwkhsod and prescription medicines only as told by [...] you have new or worsening symptoms. Take pqcw-lir-vpquapc and prescription medicines only as told by [...] 01/24/2006 Document Revised: 10/23/2018 Document Reviewed: 10/23/2018 [employer] Patient Education 2020 [employer]. 08/10/2022 11:48:18 Gastritis, Adult Gastritis, Adult Gastritis [...] medicines. These include steroids, antibiotics, and some cmut-bzh-cfllyeu medicines, such as aspirin or ibuprofen. Having [...] Follow these instructions at home: Medicines Take ojta-ucr-rrmrtmj and prescription medicines only as told by [...] 04/10/2002 Document Revised: 09/03/2018 Document Reviewed: 09/03/2018 [employer] Patient Education 2020 [employer]. Follow Up Care 07/24/2022 08:58:51 With:Katrin Resendiz CNP Address: When:3 months [facility] 03-14-2023 Evaluation + Plan noteExtracted from: Title:CSB GA Author:Suresh XIONG, Brett Tripathi Date:07/11/22 Plan [place] [employer] Anesthesiologists (ASA) physical status classification: Class III. Anesthetic Preoperative Plan: Anesthesia General. Future Appointments Appointment Date:07/17/2022 11:40:00 AM Scheduled Provider:Miki Mauricio MD Location:[facility] Appointment Type: Post Op 15 [facility]03-14-2023 Hospital Discharge instructions Patient Education 07/11/2022 09:54:16 [...] and water are not available, use hand senior firewall engineer. ?Change your dressing as told by your [...] health care provider approves. General instructions Take yyak-cks-wrakptp and prescription medicines only as told by your health care provider. To prevent or treat constipation while you are taking prescription pain medicine, your health care provider may recommend that you: ?Drink enough fluid to keep your urine clear or pale yellow. ?Take imvs-uxe-fssjopn or prescription medicines. ?Eat foods that are [...] 04/16/2006 Document Revised: 03/29/2018 Document Reviewed: 10/02/2016 [employer] Patient Education 2020 [employer] Follow Up Care 06/26/2022 11:12:42 With:Miki Mauricio Address: [address], [address] [address]- [phone] Business (1) When: Unknown Comments:Appointment has already been scheduled [facility]07-01-2020 Evaluation note* Diagnosis Bilateral pulmonary embolism (CMS-HCC) October 2019- Primary Other pulmonary embolism and infarction History of DVT (deep vein thrombosis) Preoperative clearance Unspecified pre-operative examination documented [facility] this [facility] [id number] Evaluation note* Diagnosis Bilateral pulmonary embolism (CMS-HCC) October 2019- Primary Other pulmonary embolism and infarction Personal history of PE (pulmonary embolism) Personal history of venous thrombosis and embolism Dyspnea on exertion Other dyspnea and respiratory abnormality Environmental allergies Other allergy, other than to medicinal agents [facility] Future Appointments Appointment Date:03/03/2022 12:45:00 PM Scheduled Provider: Location:[facility] Appointment Type:Surgery PAT COVID Testing Appointment Date:03/10/2022 01:00:00 PM Scheduled Provider: Location:[facility] Appointment Type:Surgery [facility] Evaluation + Plan note Future Appointments Appointment Date:03/13/2023 02:30:00 PM Scheduled Provider:CYNTHIA GALLARDO PA-C Location:[facility] Appointment Type:URO Office Visit [facility] evaluation + Plan note Future Appointments Appointment Date:01/29/2024 11:00:00 AM Scheduled Provider:CYNTHIA GALLARDO PA-C Location:[facility] Appointment Type:URO Office Visit [facility] Evaluation note* Diagnosis Angina pectoris, unstable ([facility] Primary Intermediate coronary syndrome [facility] Diagnosis Systemic lupus erythematosus, unspecified SLE type, unspecified organ involvement status ([facility] Primary Stage IV lupus nephritis (WHO) ([facility]) 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 Fibromyalgia Unspecified myalgia and myositis [facility] Diagnosis Bilateral pulmonary embolism ([facility] Primary Other pulmonary embolism and infarction [facility] Diagnosis Daily headache- Primary Migraine without aura and without status migrainosus, not intractable Vision changes Uncontrolled hypertension Fibromyalgia Unspecified myalgia and myositis documented in [facility]* Diagnosis Lupus nephritis ([facility])- Primary Systemic lupus erythematosus Essential hypertension Unspecified essential hypertension [facility]* Diagnosis BMI 39.0-39.9,adult- Primary Stage IV lupus nephritis (WHO) ([facility]) Systemic lupus erythematosus, unspecified SLE type, unspecified organ involvement status ([facility]) 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 documented in this encounter [facility] noteNo assessment information available [facility] Work Phone: Evaluation note* 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 documented in this encounter [facility]* Diagnosis Lupus (systemic lupus erythematosus) ([facility] Primary Systemic lupus erythematosus Acute nonintractable headache, unspecified headache type Headache documented in this encounter [facility]* Diagnosis Stage IV lupus nephritis (WHO) ([facility]) Systemic lupus erythematosus, unspecified SLE type, unspecified organ involvement status ([facility]) documented in this encounter [facility]* Diagnosis Migraine without aura and without status migrainosus, not intractable- Primary Hemiplegic migraine without status migrainosus, not intractable Fibromyalgia Unspecified myalgia and myositis documented [facility]* Diagnosis BMI 39.0-39.9,adult- Primary documented in [facility]* Diagnosis Intrauterine device surveillance Pelvic pain in female Unspecified symptom associated with female genital organs documented in [facility] encounter [facility]* Diagnosis Systemic lupus erythematosus, unspecified SLE type, unspecified organ involvement status ([facility]) Stage IV lupus nephritis (WHO) ([facility]) Fibromyalgia Unspecified myalgia and myositis 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 documented in this encounter [facility]* Diagnosis Pelvic pain in female- Primary Unspecified symptom associated with female genital organs documented in this encounter [facility]* Diagnosis Right foot pain- Primary Pain in soft tissues of limb 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, 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 Equinus contracture of right ankle Instability of right ankle joint Difficulty walking Difficulty in walking documented in this encounter [facility] Healthcare[facility] note* Diagnosis Stage IV lupus nephritis (WHO) ([facility]) [facility]* Diagnosis Encounter to discuss procedure Pelvic pain in female Unspecified symptom associated with female genital organs H/O: section Other postprocedural status Abnormal uterine bleeding (AUB) documented in this encounter [facility] HealthcareHospital course Narrative No data available for this section [facility] Hospital Discharge instructions No data available for this section [facility] InstructionsNot on filedocumented in [...] data available for this section [facility] Reason for referral (narrative)* Consultation (Routine) - Pending Review Specialty Diagnoses / Procedures Referred By Noris lassiter Referred To Contact Nutrition Diagnoses BMI 39.0-39.9,adult Sherman Calle MD [address] [address] Yazmin Vieira, RD [address] [place] [address] Referral ID Status Reason Start Date Expiration Date V isits Requested Visits Authorized [id number] Pending Review 07/31/2023 07/30/2024 1 1 [facility] Summary Purpose Family History No Family History Records FoundNo Family History Records Found No data available for this section No Family History Records FoundNo Family History Records FoundNo Family History Records FoundNo Family History Records Found No data available for this section No Family History Records Found No data available for this section No Family History Records FoundNo Family History Records FoundNo Family History Records FoundNo Family History Records FoundNo Family History Records Found No data available for this section No Family History Records Found Advance Directives Latest Code Status on File Code Status [...] Code 06/02/2020 11:25 AM 06/05/2020 5:47 PM Date Activated Date Inactivated Comments 06/19/2023 2:45 PM 06/21/2023 12:58 PM Date Activated Date Inactivated Comments 12/17/2022 9:01 PM 12/19/2022 11:22 AM Date Activated Date Inactivated Comments 11/22/2022 5:10 PM 12/04/2022 8:24 PM Date Activated Date Inactivated Comments 06/09/2020 10:32 PM 06/16/2020 12:01 AM Date Activated Date Inactivated Comments 06/02/2020 11:25 AM 06/05/2020 5:47 PM Date Activated Date Inactivated Comments 01/31/2024 3:30 PM Date Activated Date Inactivated Comments 01/31/2024 12:08 AM 01/31/2024 3:21 PM Date Activated Date Inactivated Comments 06/19/2023 2:45 PM 06/21/2023 12:58 PM Date Activated Date Inactivated Comments 12/17/2022 9:01 PM 12/19/2022 11:22 AM Date Activated Date Inactivated Comments 11/22/2022 5:10 PM 12/04/2022 8:24 PM Date Activated Date Inactivated Comments 01/31/2024 3:30 PM 02/05/2024 7:09 PM Date Activated Date Inactivated Comments 01/31/2024 12:08 AM 01/31/2024 3:21 PM Date Activated Date Inactivated Comments 06/19/2023 2:45 PM 06/21/2023 12:58 PM Date Activated Date Inactivated Comments 12/17/2022 9:01 PM 12/19/2022 11:22 AM Date Activated Date Inactivated Comments 11/22/2022 5:10 PM 12/04/2022 8:24 PM Date Activated Date Inactivated Comments 01/31/2024 3:30 PM 02/05/2024 7:09 PM Reason for Referral Specialty Diagnoses / Procedures Referred By Contac t Referred To Contact Procedures Discharge Follow-Up Pat Hawk MD [address] [place] [phone] Referral ID Status Reason Start Date Expiration Date V isits Requested Visits Authorized [id number] Pending Review 02/05/2024 02/04/2025 1 1 Specialty Diagnoses / Procedures Referred By Contac t Referred To Contact Diagnoses Acute nonintractable headache, unspecified headache type Procedures Follow-up with primary care provider Pat Hawk MD [address] [place] [phone] Referral ID Status Reason Start Date Expiration Date V isits Requested Visits Authorized [id number] Pending Review 02/05/2024 02/04/2025 1 1 Specialty Diagnoses / Procedures Referred By Contac t Referred To Contact Procedures Adult diet Pat Hawk MD [address] [place] [phone] Referral ID Status Reason Start Date Expiration Date V isits Requested Visits Authorized [id number] Pending Review 02/05/2024 02/04/2025 1 1 Specialty Diagnoses / Procedures Referred By Contac t Referred To Contact Diagnoses Daily headache Migraine without aura and without status migrainosus, not intractable Fibromyalgia Pasquale Alexander PA-C [address] [place] [address], [address] [place] [address] Referral ID Status Reason Start Date Expiration Date V isits Requested Visits Authorized [id number] Pending Review 1 1 Specialty Diagnoses / Procedures Referred By Contac t Referred To Contact Diagnoses Migraine without aura and without status migrainosus, not intractable Uncontrolled hypertension Pasquale Alexander PA-C [address] [place] [address] Referral ID Status Reason Start Date Expiration Date V isits Requested Visits Authorized [id number] Pending Review 1 1 Specialty Diagnoses / Procedures Referred By Contac t Referred To Contact Radiology Diagnoses Daily headache Migraine without aura and without status migrainosus, not intractable Vision changes Procedures MR brain without contrast Pasquale Alexander PA-C [address] [place] [address] Referral ID Status Reason Start Date Expiration Date V isits Requested Visits Authorized [id number] Pending Review 07/05/2023 07/04/2024 1 1 Specialty Diagnoses / Procedures Referred By Contac t Referred To Contact Diagnoses Fibromyalgia Sherman Calle MD [address] [address] Referral ID Status Reason Start Date Expiration Date Visits Re quested Visits Authorized [id number] Closed 1 1 Specialty Diagnoses / Procedures Referred By Contac t Referred To Contact Diagnoses Angina pectoris, unstable ([facility]) Procedures Nuc stress exercise Simone Franklin MD [address] [place] [address] Referral ID Status Reason Start Date Expiration Date V isits Requested Visits Authorized [id number] Pending Review 06/06/2023 06/05/2024 5 5 Additional Source Comments Patient Care team informatio n (unrecognized section and content) Negative Notcher Relationship Specialty Start Date End Date Billy Zelaya PA-C [address] [place] [address] PCP - General Physician Armored Truck Driver 03/17/23 Negative Notcher Relationship Specialty Start Date End Date Billy Zelaya PA-C [address] [place], [place] [id number] PCP - General Physician Armored Truck Driver 05/10/23 Negative Notcher Relationship Specialty Start Date End Date Billy Zelaya PA-C [address] [place] [phone] PCP - General Physician Armored Truck Driver 05/10/23 Negative Notcher Relationship Specialty Start Date End Date Billy Zelaya PA-C [address] [place] [id number] PCP - General Physician Armored Truck Driver 06/05/23 Negative Notcher Relationship Specialty Start Date End Date Billy Zelaya PA-C [address] [place] [phone] PCP - General Physician Armored Truck Driver 06/05/23 Negative Notcher Relationship Specialty Start Date End Date Billy Zelaya PA-C [address] [place] [id number] PCP - General Physician Armored Truck Driver 06/05/23 Negative Notcher Relationship Specialty Start Date End Date Billy Zelaya PA-C [address] [place] [phone] PCP - General Physician Armored Truck Driver 06/05/23 Negative Notcher Relationship Specialty Start Date End Date Billy Zelaya PA-C [address] [place] [phone] PCP - General Physician Armored Truck Driver 06/05/23 Negative Notcher Relationship Specialty Start Date End Date Billy Zelaya PA-C [address] [place] [id number] PCP - General Physician Armored Truck Driver 06/05/23 Negative Notcher Relationship Specialty Start Date End Date Billy Zelaya PA-C [address] [place] [phone] PCP - General Physician Armored Truck Driver 06/05/23 Negative Notcher Relationship Specialty Start Date End Date Billy Zelaya PA-C [address] [place] [id number] PCP - General Physician Armored Truck Driver 06/05/23 Negative Notcher Relationship Specialty Start Date End Date Billy Zelaya PA-C [address] [place] [id number] PCP - General Physician Armored Truck Driver 06/05/23 Negative Notcher Relationship Specialty Start Date End Date Billy Zelaya PA-C [address] [place] [id number] PCP - General Physician Armored Truck Driver 06/05/23 Negative Notcher Relationship Specialty Start Date End Date Billy Zelaya PA-C [address] [place] [id number] PCP - General Physician Armored Truck Driver 06/05/23 Negative Notcher Relationship Specialty Start Date End Date Billy Zelaya PA-C [address] [place] [id number] PCP - General Physician Armored Truck Driver 06/05/23 Negative Notcher Relationship Specialty Start Date End Date Billy Zelaya PA-C [address] [place] [id number] PCP - General Physician Armored Truck Driver 06/05/23 Negative Notcher Relationship Specialty Start Date End Date Billy Zelaya PA-C [address] [place] [phone] PCP - General Physician Armored Truck Driver 06/05/23 Negative Notcher Relationship Specialty Start Date End Date Billy Zelaya PA-C [address] [place] [phone] PCP - General Physician Armored Truck Driver 06/05/23 Negative Notcher Relationship Specialty Start Date End Date Billy Zelaya PA-C [address] [place] [phone] PCP - General Physician Armored Truck Driver 06/05/23 Negative Notcher Relationship Specialty Start Date End Date Billy Zelaya PA-C [address] [place] [phone] PCP - General Physician Armored Truck Driver 06/05/23 Negative Notcher Relationship Specialty Start Date End Date Billy Zelaya PA-C [address] [place] [phone] PCP - General Physician Armored Truck Driver 06/05/23 Negative Notcher Relationship Specialty Start Date End Date Billy Zelaya PA-C [address] [place] [id number] PCP - General Physician Armored Truck Driver 06/05/23 Negative Notcher Relationship Specialty Start Date End Date Billy Zelaya PA-C [address] [place] [phone] PCP - General Physician Armored Truck Driver 06/05/23 Negative Notcher Relationship Specialty Start Date End Date Billy Zelaya PA-C [address] [place] [phone] PCP - General Physician Armored Truck Driver 06/05/23 Negative Notcher Relationship Specialty Start Date End Date Billy Zelaya PA-C [address] [place] [id number] PCP - General Physician Armored Truck Driver 06/05/23 Team Status: Inactive Member Role Status Dates Mayco Albright Attending Provider Active Start: 2023 End: August 16, 2023 Negative Notcher Relationship Specialty Start Date End Date Lindsey Jennings, PSYCHIATRIC NURSING ASSISTANT-PROPERTY INSURANCE INSPECTOR [address] [place] [address], [place] [address] PCP - General Family Medicine 01/24/24 Negative Notcher Relationship Specialty Start Date End Date Lindsey Jennings, PSYCHIATRIC NURSING ASSISTANT-PROPERTY INSURANCE INSPECTOR [address] [place] [address], [place] [address] PCP - General Family Medicine 01/24/24 Negative Notcher Relationship Specialty Start Date End Date Lindsey Jennings PSYCHIATRIC NURSING ASSISTANT-PROPERTY INSURANCE INSPECTOR [address] [place] [address], [place] [address] PCP - General Family Medicine 01/24/24 Negative Notcher Relationship Specialty Start Date End Date Lindsey Jennings PSYCHIATRIC NURSING ASSISTANT-PROPERTY INSURANCE INSPECTOR [address] [place] [address], [place] [address] PCP - General Family Medicine 01/24/24 Negative Notcher Relationship Specialty Start Date End Date Lindsey Jennings, PSYCHIATRIC NURSING ASSISTANT-PROPERTY INSURANCE INSPECTOR [address] [place] [address], [place] [address] PCP - General Family Medicine 01/24/24 Negative Notcher Relationship Specialty Start Date End Date Lindsey Jennings, PSYCHIATRIC NURSING ASSISTANT-PROPERTY INSURANCE INSPECTOR [address] [place] [address], [place] [address] PCP - General Family Medicine 01/24/24 Negative Notcher Relationship Specialty Start Date End Date Lindsey Jennings, PSYCHIATRIC NURSING ASSISTANT-PROPERTY INSURANCE INSPECTOR [address] [place] [address], [place] [address] PCP - General Family Medicine 01/24/24 Negative Notcher Relationship Specialty Start Date End Date Dick, Lindsey, PSYCHIATRIC NURSING ASSISTANT-PROPERTY INSURANCE INSPECTOR [address] [place] [address] PCP - General Family Medicine 01/24/24 Negative Notcher Relationship Specialty Start Date End Date Lindsey Jennings, STOCK MANAGER [address] [place] [address] Referring Physician Family Medicine 11/19/23 Negative Notcher Relationship Specialty Start Date End Date Lindsey Jennings STOCK MANAGER [address] [place] [address] Referring Physician Family Medicine 11/19/23 Negative Notcher Relationship Specialty Start Date End Date Lindsey Jennings STOCK MANAGER [address] [facility] [place] [address] Referring Physician Family Medicine 11/19/23 Negative Notcher Relationship Specialty Start Date End Date Lindsey Jennings, PSYCHIATRIC NURSING ASSISTANT-PROPERTY INSURANCE INSPECTOR [address] [place] [address] PCP - General Family Medicine 01/24/24 Negative Notcher Relationship Specialty Start Date End Date Lindsey Jennings STOCK MANAGER [address] [place] [address] Referring Physician Family Medicine 11/19/23 Negative Notcher Relationship Specialty Start Date End Date Lindsey Jennings STOCK MANAGER [address] [place] [address] Referring Physician Family Medicine 11/19/23 Negative Notcher Relationship Specialty Start Date End Date Lindsey Jennings STOCK MANAGER [address] [place] [address] Referring Physician Family Medicine 11/19/23 Negative Notcher Relationship Specialty Start Date End Date Lindsey Jennings, PSYCHIATRIC NURSING ASSISTANT-PROPERTY INSURANCE INSPECTOR [address] [place] [address] PCP - General Family Medicine 01/24/24 INFORMATION SOURCE (unrecogn ized section and content) DATE CREATED AUTHOR 03/23/2022 [facility] DATE CREATED AUTHOR AUTHOR'S ORGANIZ ATION 02/12/2023 [facility] DATE CREATED AUTHOR AUTHOR'S ORGANIZ ATION 06/11/2023 [facility] DATE CREATED AUTHOR AUTHOR'S ORGANIZ ATION 07/01/2023 [facility] DATE CREATED AUTHOR AUTHOR'S ORGANIZ ATION 08/03/2023 [facility] DATE CREATED AUTHOR AUTHOR'S ORGANIZ ATION 08/22/2023 [facility] DATE CREATED AUTHOR AUTHOR'S ORGANIZ ATION 12/10/2023 [facility] DATE CREATED AUTHOR AUTHOR'S ORGANIZ ATION 03/20/2024 [facility] DATE CREATED AUTHOR AUTHOR'S ORGANIZ ATION 04/12/2024 [facility] DATE CREATED AUTHOR AUTHOR'S ORGANIZ ATION 04/15/2024 [facility] DATE CREATED AUTHOR AUTHOR'S ORGANIZ ATION 04/29/2024 [facility] DATE CREATED AUTHOR AUTHOR'S ORGANIZ ATION 05/16/2024 [facility] DATE CREATED AUTHOR AUTHOR'S ORGANIZ ATION 05/21/2024 [facility] Reason for Visit (unrecogniz ed section and content) Reason Onset Date Comments Cardiac Clearance 06/06/2023 Reason Comments Med Refill Reason Onset Date Comments Surgical Or Dental Clearance 07/03/2023 Reason Comments New Patient Specialty Diagnoses / Procedures Referred By Noris lassiter Referred To Contact Neurology Diagnoses Nonintractable headache, unspecified chronicity pattern, unspecified headache type Billy Zelaya PA-C [address] [place] [address] James Ha MD [address] [place], [place] [id number] [place] [address] Referral ID Status Reason Start Date Expiration Date Visits Requested Visits Authorized [id number] Pending Review Specialty Services Required 05/30/2023 05/29/2024 1 1 Reason Onset Date Comments Prior Authorization 07/13/2023 Reason Comments New Patient PATIENT HAS LUPUS/FI BROMALAGIA AND DX IN OCTOBER 2022 Cough DENIES Wheezing DENIES Shortness of Breath DENIES Specialty Diagnoses / Procedures Referred By Contac t Referred To Contact Pulmonary Medicine Diagnoses Personal history of PE (pulmonary embolism) Billy Zelaya PA-C [address] [place] [address] sp Pulm Sleep Med [address] [facility] [place] [address] Referral ID Status Reason Start Date Expiration Date Visits Requested Visits Authorized [id number] Pending Review Specialty Services Required 06/12/2023 06/11/2024 1 1 Reason Comments Tinnitus Reason Onset Date Comments Medical Update 01/28/2024 Reason Onset Date Comments LUMBAR PUNCTURE 02/01/2024 Specialty Diagnoses / Procedures Referred By Contac t Referred To Contact Diagnoses Lupus (systemic lupus erythematosus) ([facility]) Lupus Diogo Bray MD [address] [place] [address], [address] [place] [address] Referral ID Status Reason Start Date Expiration Date Visits Re quested Visits Authorized [id number] 1 1 Reason Onset Date Comments Results 02/11/2024 Reason Onset Date Comments Med Refill 03/10/2024 Reason Comments Migraine Patient is here toda y for follow up on DX Migraine without aura and without status migrainosus, not intractable Reason Comments MNT - Individual F/U; desired wt loss and lupus Reason Comments IUD check Reason Comments Flat Foot Pt presents today fo r BL flat feet, she has been going to the gym but her Rt foot will become bothersome, feeling like it is sprained. SS: 10 Reason Comments discuss surgery Goals (unrecognized section and content) Goals may be documented in a n alternate section Scheduled Active and Recently Administ ered Medications (unrecognized section and content) Medication Order 02/03/2024 02/04/2024 02/05/2024 acetaminophen (OFIRMEV) IVPB Premix 1,000 mg (COMPLETED) 1,000 mg, intravenous, at 400 mL/hr, Administer over 15 Minutes, Once, On Sun02/05/24 at 1145, For 1 dose 1133 (New Bag - Provider: Tanisha Napoles, RN)1148 (Stop Bag - Provider: Tanisha Napoles, CAITLYN) acetaminophen (TYLENOL) tablet 650 mg (COMPLETED) 650 mg, oral, Once, On Sun02/03/24 at 0030, For 1 dose 0031 (Given - Provider: Aydee Casanova RN) allopurinoL (ZYLOPRIM) tablet 100 mg 100 mg, oral, Daily, First dose on Sun02/01/24 at 0900, Look-alike/sound-alike medication - verify indication for use. 0845 (Given - Provider: Cira Pérez RN) 1037 (Given - Provider: Tiffany Salter RN) 1122 (Given - Provider: Tanisha Napoles, RN) amitriptyline (ELAVIL) tablet 50 mg 50 mg, oral, Nightly, First dose on Aleida 01/31/24 at 2200 2120 (Given - Provider: Cynthia Muñoz RN) 2149 (Given - Provider: Cynthia Muñoz, CAITLYN) bumetanide (BUMEX) tablet 2 mg 2 mg, oral, 2 times daily, First dose on Aleida 01/31/24 at 2100 0844 (Given - Provider: Cira Pérez RN)2120 (Given - Provider: Cynthia Muñoz RN) 0859 (Given - Provider: Tiffany Salter, RN)2149 (Given - Provider: Cynthia Muñzo, CAITLYN) 112 (Given - Provider: Tanisha Napoles, RN) carvediloL (COREG) tablet 6.25 mg 6.25 mg, oral, 2 times daily, First dose on Aleida 01/31/24 at 2100, Give with meal or snack. Look-alike/sound-alike medication - verify indication for use. 0844 (Given - Provider: Cira Pérez RN)2120 (Given - Provider: Cynthia Muñoz RN) 0859 (Given - Provider: Tiffany Salter RN)215 (Given - Provider: Cynthia Muñoz RN) 1122 (Given - Provider: Tanisha Napoles, RN) clindamycin (CLEOCIN) capsule 300 mg (CANCELED) 300 mg, oral, Every 8 hours scheduled, First dose on Sun02/03/24 at 0600, Give with a full glass of water., Indication: Other, Specify: OTITIS MEDIA 0508 (Given - Provider: Aydee Casanova RN)1427 (Given - Provider: Cira Pérez RN)2120 (Given - Provider: Cynthia Muñoz RN) 0501 (Given - Provider: Cynthia Muñoz RN) clindamycin (CLEOCIN) capsule 300 mg (COMPLETED) 300 mg, oral, Every 8 hours scheduled, First dose (after last modification) on Sun02/04/24 at 1400, For 2 doses, Give with a full glass of water., Indication: Other, Specify: OTITIS MEDIA 1356 (Given - Provider: Tiffany Salter RN)2149 (Given - Provider: Cynthia Muñoz RN) cyanocobalamin tablet 1,000 mcg 1,000 mcg, oral, Daily, First dose on Sun02/01/24 at 0900 0844 (Given - Provider: Cira Pérez RN) 0859 (Given - Provider: Tiffany Salter RN) 1122 (Given - Provider: Tanisha Napoles, CAITLYN) dicyclomine (BENTYL) capsule 10 mg 10 mg, oral, 4 times daily, First dose on Aleida 01/31/24 at 1730 0844 (Given - Provider: Cira Pérez RN)1427 (Given - Provider: Cira Pérez RN)1806 (Given - Provider: Cira Pérez RN)212 (Given - Provider: Cynthia Muñoz RN) 0859 (Given - Provider: Tiffany Salter RN)1356 (Given - Provider: Tiffany Salter RN)1716 (Given - Provider: Tiffany Salter RN)2149 (Given - Provider: Cynthia Muñoz RN) 112 (Given - Provider: Tanisha Napoles, RN)1300 (Not Given - Provider: Tanisha Napoles, RN - Reason: Patient not available)1632 (Given - Provider: Tanisha Napoles, RN) emtricitabine-tenofovir alafen (DESCOVY) 200-25 mg per tablet 1 tablet 1 tablet, oral, Daily, First dose on Sun02/01/24 at 0900 0845 (Given - Provider: Cira Pérez RN) 1037 (Given - Provider: Tiffany Salter RN) 1122 (Given - Provider: Tanisha Napoles, RN) famotidine (PEPCID) tablet 20 mg 20 mg, oral, Daily, First dose on Sun02/01/24 at 0900 0844 (Given - Provider: Cira Pérez RN) 0858 (Given - Provider: Tiffany Salter RN) 1122 (Given - Provider: Tanisha Napoles, RN) ketorolac (TORADOL) injection 15 mg (COMPLETED) 15 mg, intramuscular, Once, On Sun02/05/24 at 1645, For 1 dose, Look-alike/sound-alike medication - verify indication for use. Duration of therapy is not to exceed 5 days. Maximum recommended dose + 120mg/24 hours. 1646 (Given - Provider: Tanisha Napoles, CAITLYN) lidocaine (LIDODERM) 5 % 1 patch 1 patch, transdermal, Administer over 12 Hours, Daily, First dose on Sun02/03/24 at 1830, Apply to intact skin on neck. Patch(es) may remain in place for up to 12 hours in any 24-hour period. Remove previous patch, if present, before applying new. 1827 (Medication Applied - Provider: Cira Pérez RN - Comment: rigth side neck) 0450 (Medication Applied - Provider: Cynthia Muñoz RN - Comment: right neck; replaced because pt took a shower)0900 (Canceled Entry - Provider: Tiffany Salter RN - Comment: given at 0450 today) 1121 (Medication Applied - Provider: Tanisha Napoles, CAITLYN) LORazepam (ATIVAN) injection 1 mg (COMPLETED) 1 mg, intravenous, Once, On Sun02/03/24 at 1145, For 1 dose, Look-alike/sound-alike medication - verify indication for use;IV use requires increased monitoring of HR,BP,Respirations and Pulse Oximetry;For IV-dilute with equal volume PF sod chloride, Indication: Other, Indication: for MRI 1135 (Given - Provider: Cira Pérez RN) magnesium oxide (MAGOX) tablet 400 mg 400 mg, oral, 2 times daily, First dose on Sun01/31/24 at 2100 0844 (Given - Provider: Cira Pérez RN)2120 (Given - Provider: Cynthia Muñoz RN) 857 (Given - Provider: Tiffany Salter RN)2149 (Given - Provider: Cynthia Muñoz RN) 1121 (Given - Provider: Tanisha Napoles, RN) mycophenolate (CELLCEPT) tablet 1,500 mg 1,500 mg, oral, 2 times daily, First dose on Sun01/31/24 at 2100, Do not crush or chew. Pediatric patients only-adminster on empty stomach at least 1 hour before or 2 hours after meals. 0844 (Given - Provider: Cira Pérez RN)2120 (Given - Provider: Cynthia Muñoz RN) 857 (Given - Provider: Tiffany Salter RN)2150 (Given - Provider: Cynthia Muñoz RN) 1121 (Given - Provider: Tanisha Napoles, RN) potassium chloride (K-TAB,KLOR-CON) CR tablet 20 mEq 20 mEq, oral, 2 times daily, First dose on Sun01/31/24 at 2100, Do not crush or chew. 0844 (Given - Provider: Cira Pérez RN)2120 (Given - Provider: Cynthia Muñoz RN) 857 (Given - Provider: Tiffany Salter RN)2149 (Given - Provider: Cynthia Muñoz RN) 1120 (Given - Provider: Tanisha Napoles, RN) predniSONE (DELTASONE) tablet 5 mg 5 mg, oral, Daily with breakfast, First dose on Sun02/01/24 at 0800, Look-alike/sound-alike medication - verify indication for use. Food-Drug Interaction Education Required May alter blood glucose or insulin requirements Take/give with food Look-alike/sound-alike medication - verify indication for use. 0843 (Given - Provider: Cira Pérez RN) 857 (Given - Provider: Tiffany Slater RN) 1121 (Given - Provider: Tanisha Napoles, RN) sodium chloride 0.9 % flush 3 mL 3 mL, intravenous, Every 12 hours scheduled, First dose on Sun01/31/24 at 2100 0845 (Given - Provider: Cira Pérez RN)2123 (Given - Provider: Cynthia Muñoz, RN) 0859 (Given - Provider: Tiffany Salter, RN)2150 (Given - Provider: Cynthia Muñoz, CAITLYN) 1124 (Given - Provider: Tanisha Napoles, CAITLYN) voclosporin capsule 23.7 mg 23.7 mg, oral, 2 times daily, First dose on Sun01/31/24 at 2100, Take on empty stomach 0508 (Given - Provider: Aydee Casanova, CAITLYN)1806 (Given - Provider: Cira Pérez RN) 0502 (Given - Provider: Cynthia Muñoz, CAITLYN)1717 (Given - Provider: Tiffany Salter, RN) 0631 (Given - Provider: Cynthia Muñoz, CAITLYN) Continuous Medication Order 02/03/2024 02/04/2024 02/05/2024 heparin infusion 68139 units/500 mL in 0.45% NaCl (50 units/mL premix) (CANCELED) 300-3,500 Units/hr (6-70 mL/hr), intravenous, Continuous, Starting on Sun02/01/24 at 1730, Maximum initial infusion: 1000 units/hr Heparin Low Intensity Infusion (Cardiology) Heparin Adjustment Table: aPTT Therapeutic Goal: 50-70 Seconds If aPTT results: -less than 40 seconds: bolus with 2000 units, increase rate by 150 units/hr (3 mL/hr), next aPTT in 6 hrs. -40 - 49 seconds: increase rate by 100 units/hr (2 mL/hr), next aPTT in 6 hours. -50 - 70 seconds: next aPTT in 6 hours then every AM. -71 - 90 seconds: decrease rate by 50 units/hr (1 mL/hr), next aPTT in 6 hours. -91 - 120 seconds: stop infusion for 30 minutes, decrease rate by 100 units/hr (2 mL/hr), next aPTT in 6 hours. -121 - 150 seconds: stop infusion for 60 minutes, decrease rate by 150 units/hr (3 mL/hr), next aPTT in 6 hours. - Greater than 150 seconds: stop infusion for 60 minutes, decrease rate by 250 units/hr (5 mL/hr), next aPTT in 6 hours. Monitor for signs of bleeding. Look-alike/sound-alike medication - verify indication for use., Indication: Other, Other Indication: hypercoagability, INITIAL Infusion Dose (Units/hr): 1000 units/hr 0656 (Handoff - Provider: Aydee Casanova RN)1136 (Paused - Provider: Cira Pérez RN)1138 (Restarted - Provider: Cira Pérez RN)1157 (Paused - Provider: Cira Pérez RN)1158 (Paused - Provider: Cira Pérez RN)1252 (Paused - Provider: Cira Pérez RN)1253 (Paused - Provider: Cira Pérez RN)1254 (Restarted - Provider: Cira Pérez RN)1808 (New Bag - Provider: Cira Pérez RN)1920 (Handoff - Provider: Cira Pérez RN) 0709 (Handoff - Provider: Cynthia Muñoz RN)1300 (Stop Bag - Provider: Tiffany Salter RN)1359 (Stop Bag - Provider: Tanisha Napoles RN) heparin infusion 58966 units/500 mL in 0.45% NaCl (50 units/mL premix) 300-3,500 Units/hr (6-70 mL/hr), intravenous, Continuous, Starting on Sun02/04/24 at 1230, Maximum initial infusion: 1000 units/hr Heparin Low Intensity Infusion (Cardiology) Heparin Adjustment Table: aPTT Therapeutic Goal: 50-70 Seconds If aPTT results: -less than 40 seconds: bolus with 2000 units, increase rate by 150 units/hr (3 mL/hr), next aPTT in 6 hrs. -40 - 49 seconds: increase rate by 100 units/hr (2 mL/hr), next aPTT in 6 hours. -50 - 70 seconds: next aPTT in 6 hours then every AM. -71 - 90 seconds: decrease rate by 50 units/hr (1 mL/hr), next aPTT in 6 hours. -91 - 120 seconds: stop infusion for 30 minutes, decrease rate by 100 units/hr (2 mL/hr), next aPTT in 6 hours. -121 - 150 seconds: stop infusion for 60 minutes, decrease rate by 150 units/hr (3 mL/hr), next aPTT in 6 hours. - Greater than 150 seconds: stop infusion for 60 minutes, decrease rate by 250 units/hr (5 mL/hr), next aPTT in 6 hours. Monitor for signs of bleeding. Look-alike/sound-alike medication - verify indication for use., Indication: Other, Other Indication: hypercoagability, INITIAL Infusion Dose (Units/hr): 1000 units/hr 1230 (Canceled Entry - Provider: Tiffany Salter, RN)1359 (New Bag - Provider: Tiffany Salter, RN) 0200 (Stop Bag - Provider: Cynthia Muñoz, CAITLYN) PRN Medication Order 02/03/2024 02/04/2024 02/05/2024 acetaminophen (OFIRMEV) IVPB Premix 1,000 mg ()(Linked Group 1) 1,000 mg, intravenous, at 400 mL/hr, Administer over 15 Minutes, Every 6 hours PRN, headaches, severe pain - pain scale 7-10, Starting on 02/02/24 at 0838, For 24 hours 0530 (New Bag - Provider: Aydee Casanova RN)0545 (Stop Bag - Provider: Aydee Casanova RN)0545 (Stop Bag - Provider: Cira Pérez RN) dextrose (GLUTOSE) 40 % gel 15 g 15 g, oral, As needed, low blood sugar, blood glucose less than 70 mg/dL, Starting on Aleida 01/31/24 at 1527, If patient conscious and taking PO. If blood glucose is not greater than 70 mg/dL after initial treatment, repeat treatment. dextrose 5 % (D5W) infusion 100 mL/hr, intravenous, Continuous PRN, blood glucose less than 70 mg/dL, Starting on Aleida 01/31/24 at 1527, Use immediately following dextrose 50% or glucagon treatment for patients who are unconscious or NPO. Contact prescriber for additional orders. If blood glucose is not greater than 70 mg/dL after initial treatment, repeat treatment. dextrose 50 % in water (D50W) 50% solution 25 mL 25 mL, intravenous, As needed, low blood sugar, blood glucose less than 70 mg/dL and unconscious or NPO with IV access, Starting on Aleida 01/31/24 at 1527, Push over 1-3 minutes STAT. If conscious and not NPO, immediately follow with meal tray or high protein (7 grams) snack if tray not available. If NPO, initiate 5% dextrose in water at 100 mL/hr and contact prescriber for additional orders. If blood glucose is not greater than 70 mg/dL after initial treatment, repeat treatment. VESICANT (RED) Warning: HYPERTONIC solution. diphenhydrAMINE (BENADRYL) injection 12.5 mg(Linked Group 1) 12.5 mg, intravenous, Every 6 hours PRN, Migraines, Starting on 02/02/24 at 0837, Look-alike/sound-alike medication - verify indication for use. 0527 (Given - Provider: Aydee Casanova RN) 0442 (Given - Provider: Cynthia Muñoz RN) gadoteridoL (PROHANCE) injection 10 mmol 20 mL (COMPLETED) 10 mmol (rounded from 12.55 mmol = 0.1 mmol/kg 125.5 kg), intravenous, Once in imaging, contrast, MRI, Starting on 02/03/24 at 1215, For 1 dose, VESICANT (RED), Indications: magnetic resonance imaging 1242 (Given - Provider: Do Ocasio) glucagon HCL injection 1 mg 1 mg, intramuscular, As needed, low blood sugar, blood glucose less than 70 mg/dL and unconscious or NPO without IV access., Starting on Aleida 01/31/24 at 1527, If conscious and not NPO, immediately follow with meal tray or high protein (7Grams) snack if tray not available. If NPO, initiate IV 5% Dextrose/Water at 100 mL/hr and contact prescriber for additional orders. If blood glucose is not greater than 70 mg/dL after initial treatment, repeat treatment. heparin (porcine) injection 2,000 Units 2,000 Units, intravenous, As needed, If aPTT results less than 40 seconds, Starting on Sun02/01/24 at 1726, Look-alike/sound-alike medication - verify indication for use. Observe for bleeding. lidocaine PF (XYLOCAINE) 10 mg/mL (1 %) injection (COMPLETED) infiltration, As needed, Starting on Sun02/05/24 at 0940, Intra-op 0940 (Given - Provider: Ari Youngblood MD - Comment: lower back) magnesium sulfate IVPB 1000 mg/100 mL in dextrose 5% (10 mg/mL premix)(Linked Group 1) 1,000 mg, intravenous, at 100 mL/hr, Administer over 60 Minutes, Every 6 hours PRN, Migraines, Starting on 02/02/24 at 0837 0548 (New Bag - Provider: Aydee Casanova RN)0648 (Stop Bag - Provider: Cira Pérez RN) 0445 (New Bag - Provider: Cynthia Muñoz, RN)0545 (Stop Bag - Provider: Tiffany Salter RN) prochlorperazine (COMPAZINE) injection 5 mg(Linked Group 1) 5 mg, intravenous, Every 6 hours PRN, nausea, vomiting, Migraines, Starting on 02/02/24 at 0837, When administered via IV Push, do not exceed 5 mg per minute 0519 (Given - Provider: Aydee Casanova RN) 0442 (Given - Provider: Cynthia Muñoz, CAITLYN) sennosides-docusate sodium (SENOKOT-S) 8.6-50 mg 1 tablet 1 tablet, oral, Every 12 hours PRN, constipation, Starting on Aleida 01/31/24 at 1529 sodium chloride 0.9 % flush 10 mL 10 mL, intravenous, As needed, line care, Starting on Aleida 01/31/24 at 2350 sodium chloride 0.9 % flush 10 mL (COMPLETED) 10 mL, intravenous, Once in imaging, line care, MRI, Starting on Wynona 02/03/24 at 1215, For 1 dose 1241 (Given - Provider: Do Ocasio) sodium chloride 0.9 % flush 3 mL 3 mL, intravenous, As needed, line care, before and after each intermittent use, Starting on Aleida 01/31/24 at 1527 sodium chloride 0.9 % flush bag 25 mL, intravenous, at 100 mL/hr, Administer over 15 Minutes, As needed, line care, line care after IVPB administration, Starting on Aleida 01/31/24 at 1527 sodium chloride 0.9 % infusion 20 mL/hr, intravenous, Continuous PRN, to maintain patency of lines, Starting on Aleida 01/31/24 at 1527 0525 (New Bag - Provider: Aydee Casanova RN)0530 (Paused - Provider: Cira Pérez RN)0545 (Restarted - Provider: Cira Pérez RN)0548 (Paused - Provider: Cira Pérez RN)0648 (Restarted - Provider: Cira Pérez RN)0846 (Stop Bag - Provider: Cira Pérez RN) Linked Groups Order Group 1: magnesium sulfate IVPB 1000 mg/100 mL in dextrose 5% (10 mg/mL premix)Jump to med 1,000 mg, intravenous, at 100 mL/hr, Administer over 60 Minutes, Every 6 hours PRN, Migraines, Starting on 02/02/24 at 0837 And diphenhydrAMINE (BENADRYL) injection 12.5 mgJump to med 12.5 mg, intravenous, Every 6 hours PRN, Migraines, Starting on 02/02/24 at 0837, Look-alike/sound-alike medication - verify indication for use. And prochlorperazine (COMPAZINE) injection 5 mgJump to med 5 mg, intravenous, Every 6 hours PRN, nausea, vomiting, Migraines, Starting on 02/02/24 at 0837, When administered via IV Push, do not exceed 5 mg per minute And acetaminophen (OFIRMEV) IVPB Premix 1,000 mg ()Jump to med 1,000 mg, intravenous, at 400 mL/hr, Administer over 15 Minutes, Every 6 hours PRN, headaches, severe pain - pain scale 7-10, Starting on 02/02/24 at 0838, For 24 hours FOR RECORDS PERTAINING TO PATIENTS WHO ARE [...] BE BASED ON THE PRIMARY CLINICAL RECORDS. [employer] provides no warranty or guarantee of the accuracy or completeness of information in this document.
[2024-06-04 21:08] LABS: Age Gdln ACOG Testing Note (.); HPV Aptima Positive (Negative); HPV Genotype 16 Negative (Negative); HPV Genotype 18,45 Negative (Negative); IGP, Aptima HPV, rfx 16/18,45 Note (.)
== END 2024-05-28 21:26 | disposition home or self-care (01) ==
LOC: LAB 21:25
PROVIDERS: Visit Provider Obstetrics & Gynecology
DX: Z01.419 Encounter for gynecological examination (general) (routine) without abnormal findings (principal)
CPT/HCPCS: 87624; 87625; 88175

== ENCOUNTER 2024-06-16 10:14 | Outpatient (OUT) | payer OTHER, SELFPAY ==
--- NOTE | 2024-06-16 10:20 | XR_ITS ---
The [address] [address] Patient Name: BLANCA RUDOLPH MRN: [id number] date: 1990 Sex: F Assigned Patient Location: [facility] Current Patient Location: [facility] Accession/Order Number: [id number] Exam Date: 06/16/2024 11:10 Report Date: 06/16/2024 17:50 At the request of: BENTLEY ERNANDEZ Procedure: XR chest 2V EXAM: XR chest 2V HISTORY: Preop exam COMPARISON: 05/07/2023. FINDINGS: Frontal and lateral views of the chest were obtained. The cardiomediastinal silhouette is within normal limits. The lungs are clear without focal airspace consolidation. No pneumothorax or pleural effusion. Visualized portions of the upper abdomen are unremarkable. No acute osseous abnormality. XR/XR chest 2V IMPRESSION: No acute cardiopulmonary abnormality. Electronically authenticated by: SARAH CADE Date: 06/16/2024 17:50
--- NOTE | 2024-06-16 10:20 | ECG_ITS ---
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
[2024-06-16 11:26] LABS: Anion Gap 9.6; BUN Creatinine Ratio 8.5; Calcium 7.7 mg/dL (8.5-10.1); Carbon Dioxide 28.8 mmol/L (21.0-32.0); Chloride 106 mmol/L (98-107); Estimated GFR (African America 48 (>=60 mL/min/1.73m^2); Estimated GFR (Non-African Ame 39 (>=60 mL/min/1.73m^2); Glucose 108 mg/dL (74-106); Potassium 3.4 mmol/L (3.5-5.1); Sodium 141 mmol/L (136-145)
[2024-06-16 11:47] LABS: Basophils Percent Auto 0.4 % (0.2-2.0); Eosinophils Absolute Auto 0.1 10^3/uL (0.0-0.7); Eosinophils Percent Auto 1.1 % (0.9-7.0); Hematocrit 32.3 % (36.0-48.0); Immature Granulocytes Abs Auto 0.01 10^3/uL (0.00-0.03); Immature Granulocytes Pct Auto 0.2 % (0.0-0.5); Lymphocytes Absolute Auto 1.3 10^3/uL (1.2-3.8); Lymphocytes Percent Auto 23.4 % (20.5-60.0); Mean Corpuscular HGB Conc 34.1 g/dL (29.9-35.2); Mean Corpuscular Hemoglobin 30.7 pg (26.7-34.0); Mean Corpuscular Volume 90.2 fL (81.0-99.0); Mean Platelet Volume 9.7 fL (9.5-13.5); Monocytes Absolute Auto 0.5 10^3/uL (0.3-0.8); Monocytes Percent Auto 9.7 % (1.7-12.0); Neutrophils Absolute Auto 3.6 10^3/uL (1.4-6.5); Neutrophils Percent Auto 65.2 % (43.0-75.0); Platelet Count 253 10^3/uL (150-450); Red Blood Count 3.58 10^6/uL (4.20-5.40); White Blood Count 5.5 10^3/uL (4.0-11.0)
[2024-06-16 12:06] LABS: INR 1.29; Partial Thromboplastin Time 35.6 sec (22.3-36.2); Prothrombin Time 13.3 sec (9.0-11.6)
== END 2024-06-16 10:15 | disposition home or self-care (01) ==
LOC: PST 10:14
PROVIDERS: Visit Provider Obstetrics & Gynecology
DX: Z01.810 Encounter for preprocedural cardiovascular examination (principal); Z01.812 Encounter for preprocedural laboratory examination
CPT/HCPCS: 71046; 80048; 85025; 85610; 85730; 93005

== ENCOUNTER 2024-07-11 07:34 | Day surgery (SDC) | payer OTHER, SELFPAY ==
[2024-06-16 10:47] VITALS: BP 110/73; PULSE 72; TEMP 36.8; O2SAT 98; BMI 42.5
[2024-07-11] VITALS (11 sets, daily range): BP systolic 131–161; BP diastolic 76–95; PULSE 63–79; TEMP 36.4–37.2; O2SAT 95–100; BMI 42.5
--- OUTSIDE RECORDS SUMMARY | 2024-07-11 07:40 | XMS_ITS | CCD ---
Author Organization [facility]ini[facility] Care Team Providers Care Brief Writer Name Role Phone BILLY ZELAYA Primary Care Physician Unavailab MELONY Simms Consulting Unavailable BRANDY ALEXIS Primary Care Unavailable MELONY THURSTON Attending Unavailable MELONY THURSTON Admitting Unavailable JOSE RAMON, DR HAGAN Consulting Unavailable BRANDY ALEXIS Primary Care Unavailable JOSE RAMON, DR HAGAN Attending Unavailable JOSE RAMON, DR HAGAN Admitting Unavailable Issa Guerrero Primary Care UnavailGAMAL Kimball Attending Unavailable GAMAL FRANKLIN Referring Unavailable BILLY ZELAYA Primary Care Unavailable GAMAL FRANKLIN Attending Unavailable GAMAL FRANKLIN Referring Unavailable BILLY ZELAYA Primary Care Unavailable GAMAL FRANKLIN Attending Unavailable GAMAL FRANKLIN Referring Unavailable BILLY ZELAYA Primary Care Unavailable CHILO BAIN Referring Unavailable BILLY ZELAYA Primary Care Unavailable ARIANNA ALEXANDER Attending Unavailable BILLY ZELAYA Referring Unavailable BILLY ZELAYA Primary Care Unavailable MAGUE PORTILLO Attending Unavailable BILLY ZELAYA Referring Unavailable BILLY ZELAYA Primary Care Unavailable Mayco Albright Attending Provider Mayco Albright Attending Unavailable Mayco Albright Admitting Unavailable NONE, XXXX Primary Care Physician Unavailab NO Miramontes Attending Unavailable CHELI JENNINGS Primary Care Physician Carmine FIELD ATTENDANT-PRECIPITATE WASHER, [place] Primary Care Provider [phone] PHOEBE LOPEZ Attending Unavailable SHERMAN CALLE Referring Unavailable BILLY ZELAYA Primary Care Unavailable PHOEBE LOPEZ Attending Unavailable BILLY ZELAYA Referring Unavailable CHELI JENNINGS Primary Care Unavailable PHOEBE LOPEZ Attending Unavailable CHELI JENNINGS Referring Unavailable CARMINE, EGAN Primary Care Unavailable Carmine CURRICULUM DIRECTOR, Cheli Unavailable SHERMAN CALLE Attending Unavailable BILLY ZELAYA Referring Unavailable ZELAYA, BILLY A Primary Care Unavailable CALLE, SHERMAN N Attending Unavailable WILFRID, BILLY A Referring Unavailable ZELAYA, BILLY A Primary Care Unavailable CALLE, SHERMAN N Attending Unavailable WILFRID, BILLY A Referring Unavailable ZELAYA, BILLY A Primary Care Unavailable CALLE, SHERMAN N Referring Unavailable WILFRID, BILLY A Primary Care Unavailable CALLE, SHERMAN N Attending Unavailable WILFRID, BILLY A Referring Unavailable ZELAYA, BILLY A Primary Care Unavailable CALLE, SHERMAN N Attending Unavailable WILFRID, BILLY A Referring Unavailable CARMINE, EGAN Primary Care Unavailable JEFF TORO Attending Unavailable CARMINE, EGAN Referring Unavailable CARMINE, EGAN Primary Care Unavailable CARMINE, EGAN Referring Unavailable CARMINE, EGAN Primary Care Unavailable CALLE, SHERMAN N Attending Unavailable CARMINE, EGAN Referring Unavailable CARMINE, EGAN Primary Care Unavailable CALLE, SHERMAN N Referring Unavailable CARMINE, EGAN Primary Care Unavailable JENNY CORNELL Attending Unavailable CARMINE, EGAN Referring Unavailable CARMINE, EGAN Primary Care Unavailable BEATA, SABEENA BESS Admitting Unavailable BEATA, SABEENA BESS Attending Unavailable DONALDO DALTON Referring Unavailable CARMINE, EGAN Primary Care Unavailable ELDER REHMAN Consulting Unavailable CHRIS JACKSON Referring Unavailable CARMINE, EGAN Primary Care Unavailable CALLE, SHERMAN N Attending Unavailable CARMINE, CHELI Referring Unavailable CARMINE, EGAN Primary Care Unavailable WILFRID, BILLY A Primary Care Unavailable ORIN GAYTAN Attending Unavailable FREDERICK BAUGH Consulting Unavailable RUOLA, ETELVINA Admitting Unavailable QAFISHEH, QUTAIBA Referring Unavailable WILFRID, BILLY A Primary Care Unavailable DOT VALLEJO Referring Unavailable WILFRID, BILLY A Primary Care Unavailable AIYEWUNMI, ORIN Attending Unavailable AIYEWUNMI, ORIN Attending Unavailable AIYEWUNMI, ORIN Attending Unavailable AIYEWUNMI, ORIN Attending Unavailable Billy Zelaya PA-C Primary Care Provider Billy Zelaya PA-C Primary Care Provider [phone] Billy Zelaya PA-C Primary Care Provider Carmine FIELD ATTENDANT-PRECIPITATE WASHER, [place] Primary Care Provider [phone] MAYCO ALBRIGHT Attending Unavailable MAYCO ALBRIGHT Attending Unavailable JOSE RAMON, MAYCO Attending Unavailable CHERYL, MICAELA Attending Unavailable JOSE RAMON, MAYCO Attending Unavailable JOSE RAMON, MAYCO Attending Unavailable JOSE RAMON, MAYCO Attending Unavailable RUSHER, ARIANNA S Attending Unavailable RUSHER, ARIANNA S Attending Unavailable RUSHER, ARIANNA S Attending Unavailable RUSHER, ARIANNA S Referring Unavailable CHERYL, MICAELA Attending Unavailable CHERYL, MICAELA Attending Unavailable JOSE RAMON, MAYCO Attending Unavailable Carmine FIELD ATTENDANT-PRECIPITATE WASHER, [place] Primary Care Provider [phone] CARMINE, CHELI Primary Care Unavailable CYNTHIA GALLARDO Attending Unavailable CARMINE, CHELI Primary Care Unavailable PAULINACYNTHIA PEÑA Attending Unavailable SarminiSaw Attending Unavaila ble CARMINE, CHELI Primary Care Unavailable Saw Huynh Tallisa Attending Unavaila ble Carmine FIELD ATTENDANT-PRECIPITATE WASHER, [place] Primary Care Provider [phone] BILLY ZELAYA Primary Care Unavailable ARIANNA ALEXANDER Referring Unavailable ZELAYA, BILLY A Primary Care Unavailable CALLE, SHERMAN N Referring Unavailable ZELAYA, BILLY A Primary Care Unavailable MAGUE PORTILLO Attending Unavailable MAGUE PORTILLO Referring Unavailable ZELAYA, BILLY A Primary Care Unavailable ZELAYA, BILLY A Referring Unavailable ZELAYA, BILLY A Primary Care Unavailable ZELAYA, BILLY A Primary Care Unavailable AIME, MILLA Attending Unavailable WILFRID, BILLY A Referring Unavailable ZELAYA, BILLY A Primary Care Unavailable MILLA SALOMON Attending Unavailable MILLA SALOMON Referring Unavailable ZELAYA, BILLY A Primary Care Unavailable CARMINE, CHELI Primary Care Unavailable JOAQUIN, ARIANNA C Attending Unavailable ZELAYA, BILLY A Referring Unavailable CARMINE, CHELI Primary Care Unavailable CALLE SHERMAN N Referring Unavailable CARMINE, CHELI Primary Care Unavailable CARMINE, CHELI Primary Care Unavailable MELLY BRITNI Attending Unavailable CARMINE, CHELI Primary Care Unavailable CARMINE, CHELI Primary Care Unavailable SARAH MAC Attending Unavailable JEFF TORO Referring Unavailable CARMINE, CHELI Primary Care Unavailable CARMINE, CHELI Primary Care Unavailable SADE ROSAS Referring Unavailable CARMINE, CHELI Primary Care Unavailable CARMINE, CHELI Primary Care Unavailable DONNIE HERRERA Attending Unavailable CARMINE, CHELI Primary Care Unavailable CARMINE, CHELI Primary Care Unavailable IZA SOSA Attending Unavailable CARMINE, CHELI Primary Care Unavailable JANES MACIAS Attending Unavailable CARMINE, CHELI Primary Care Unavailable JANES MACIAS Attending Unavailable CHRIS JACKSON Admitting Unavailable INPATIENT, TELENEUROLOGY Consulting Unavail able CARMINE, CHELI Primary Care Unavailable KRISTINFIDELORIN CURRIE Andres Referring Unavailable CARMINE, CHELI Primary Care Unavailable ARIANNA ALEXANDER Attending Unavailable CARMINE, CHELI Referring Unavailable CARMINE, EGAN Primary Care Unavailable SHERMAN CALLE Referring Unavailable CARMINE, CHELI Primary Care Unavailable MAYCO ALBRIGHT Referring Unavailable CARMINE, CHELI Primary Care Unavailable CARMINE, CHELI Primary Care Unavailable MIKHAIL MICHAELS Attending Unavailable CARMINE, CHELI Primary Care Unavailable JANES MACIAS Attending Unavailable CARMINE, CHELI Primary Care Unavailable CARMINE, CHELI Primary Care Unavailable SHEREEN ROCHE Consulting Unavailable KT, ELAINE U Admitting Unavailable ELAINE MERAZ U Attending Unavailable CARMINE, CHELI Referring Unavailable CARMINE, EGAN Primary Care Unavailable LORETTA CLEARY Attending Unavailable CARMINE, CHELI Referring Unavailable CARMINE, CHELI Primary Care Unavailable Allergies Allergy Classification Reported Allergen(s) Allergy Type Date of Onset Reaction(s) Facility (20 sources) Cephalexin; Translations: [cephalexin] Drug Allergy 05-03-19 23 Pain in lower limb (finding) [facility] [place] (20 sources) Ibuprofen; Translations: [ibuprofen] Drug Allergy 12-16-19 23 medication interference [facility] (20 sources) Sulfamethoxazole / Trimethoprim; Translations: [sulfamethoxazole-t rimethoprim] Drug Allergy 05-14-19 24 Eruption of skin (disorder), Rash [facility] Comment on above: ??? pt says she gets 'heat rash' often. however developed 'worse' rash than usual shortly after taking bactrim. has taken previously with NO reaction. (7 sources) Sulfamethoxazole / Trimethoprim; Translations: [SULFAMETHOXAZOLE-T RIMETHOPRIM] Drug Allergy 05-14-19 24 [facility] (20 sources) Garlic preparation; Translations: [GARLIC] Drug Allergy 06-19-19 [facility] (1 source) Sulfamethoxazole / Trimethoprim; Translations: [Bactrim] Drug Allergy [facility] (1 source) No Known Medication Allergies; Translations: [No Known Medication Allergies] Propensity to adverse reactions (disorder) [facility] Medications Current Medications Medication Drug Class(es) Dates Sig (Normalized) Sig (Original) acetaminophen 500 mg oral tablet (20 sources) Start: 06-28-2024 take 1 tablet by mouth every six hours as needed for pain and fever acetaminophen (TYLENOL EXTRA STRENGTH) 500 mg tablet Take 1 tablet (500 mg total) by mouth every 6 (six) hours as needed for pain or fever. 30 tablet 06/28/2024 Active Start: 02-05-2024 End: 02-05-2024 1,000 mg, intravenous, at 40 0 mL/hr, Administer over 15 Minutes, Once, On Sun02/05/24 at 1145, For 1 dose Start: 02-03-2024 End: 02-03-2024 take 650 mg by mouth once 650 mg, oral, Once, On Sun at 0030, For 1 dose Start: 01-29-2024 acetaminophen 325 mg Start Date: 01/29/24 Status: Ordered Start: 06-03-2023 take 2 tablets by mo [facility] every six hours as needed for pain acetaminophen (TylenoL) 325 mg tablet Take 2 tablets (650 mg total) by mouth every 6 (six) hours as needed for pain. 30 tablet 06/03/2023 Active Start: 08-15-2022 [facility] acetaminophen (Tylenol) 500 MG tablet Take 500 mg by mouth every 6 (six) hours if needed. 08/15/2022 Active acetaminophen 325 mg / HYDROcodone bitartrate 5 mg oral tablet (1 source) Opioid Agonist Start: 07-11-2022 End: 07-13-2022 Fowler 325 mg-5 mg oral tablet 1 tab(s), Oral, q6hr as needed for pain, 10 tab(s), Refill(s) 0, [id number], 175.2, cm, 07/05/22 12:31:00 EST, Height/Length Dosing, 136, kg, 07/05/22 12:31:00 EST, Weight Dosing Start Date: 07/11/22 Stop Date: 07/13/22 Status: Ordered acyclovir 400 mg oral tablet (9 sources) Herpesvirus Nucleoside Analog DNA Polymerase Inhibitor, [...] verify indication for use., Indication: Lopez's palsy [id number] 200 actuat albuterol 0.09 mg/actuat metered dose inhaler (20 sources) beta2-Adrenergic Agonist Start: 08-02-2023 take 2 puff(s) by inhalation every six hours as needed for wheezing albuterol (PROVENTIL HFA;VENTOLIN HFA) 90 mcg/actuation inhaler Indications: Dyspnea on exertion Inhale 2 puffs every 6 (six) hours as needed for wheezing. 18 g 11 08/02/2023 Active Start: 05-05-2022 take 2 puff(s) by mo uth every four hours albuterol HFA 90 mcg/act inhaler inhale 2 puffs by mouth and INTO THE LUNGS every 4 hours if needed 05/05/2022 Active Albuterol (Eqv-ProAir HFA) 90 mcg/inh inhalation aerosol (4 sources) Start: 08-23-2023 Albuterol (Eqv-ProAir HFA) 90 mcg/inh inhalation aerosol Refill(s) 0 Start Date: 08/23/23 Status: Ordered allopurinol 100 mg oral tablet (20 sources) Xanthine Oxidase Inhibitor Start: 01-04-2023 End: 02-05-2024 allopurinol 100 mg Tab Refills(s) 0 Start Date: 08/23/23 Status: Ordered amitriptyline hydrochloride 50 mg oral tablet (20 sources) Tricyclic Antidepressant Start: 07-09-2024 take 1 tablet by mouth once daily amitriptyline (ELAVIL) 50 mg tablet Indications: Fibromyalgia Take 1 tablet (50 mg total) by mouth nightly. Take1 tablets (50 mg) nightly 30 tablet 5 07/09/2024 Active Start: 01-17-2024 End: 07-09-2024 take 1 tablet by mouth once daily amitriptyline (ELAVIL) 50 mg tablet Indications: Fibromyalgia Take 1 tablet (50 mg total) by mouth nightly. Take1 tablets (50 mg) nightly 30 tablet 5 04/09/2024 07/09/2024 Discontinued (Reorder) Start: 07-05-2023 End: 01-17-2024 take 2 tablets by mouth at bedtime amitriptyline (Elavil) 25 MG tablet Take 50 mg by mouth at bedtime 07/05/2023 Active Start: 07-05-2023 End: 09-07-2023 amitriptyline (ELAVIL) 25 mg tablet Indications: Daily headache , Migraine without aura and without status migrainosus, not intractable , Fibromyalgia Take 1 tablet (25 mg) nightly 30 tablet 5 07/05/2023 09/07/2023 Discontinued (Reorder) Start: 05-03-2023 End: 07-05-2023 take 1 tablet by mouth once daily amitriptyline (ELAVIL) 10 mg tablet Indications: Fibromyalgia Take 1 tablet (10 mg total) by mouth nightly. 30 tablet 2 07/04/2023 Active Start: 04-02-2023 take 1 tablet by chavez [...] mouth in the mo rning aspirin 81 mg Take 1 tablet (81 mg total) by mouth in the morning. Active atovaquone 150 mg/ml oral suspension (4 sources) Antimalarial, Antiprotozoal take 5 mL by mouth in the morning atovaquone (MEPRON) 750 mg/5 mL suspension Take 5 mL (750 mg total) by mouth in the morning. 0 Active benzonatate 200 mg oral capsule (5 sources) Non-narcotic Antitussive Start: 5 take 1 capsule by mouth three times daily as needed for cough benzonatate (TESSALON PERLES) 200 mg capsule Take 1 capsule (200 mg total) by mouth 3 (three) times a day as needed for cough. 20 capsule 07/02/2024 Active blood pressure monitor kit (20 sources) Start: blood pressure monitor kit TAKE B/P 2-3 TIMES PER WEEK 1 each 01/11/2024 Start: 01-11-2024 blood pressure monitor kit TAKE B/P 2-3 TIMES PER WEEK 1 each 01/11/2024 Suspended Start: 01-11-2024 blood pressure monitor kit TAKE B/P 2-3 TIMES PER WEEK 1 each 01/11/2024 Active bumetanide 2 mg oral tablet (20 sources) Loop Diuretic Start: 12-28-2022 End: 03-10-2024 take 1 tablet by mouth twice daily in the morning bumetanide (BUMEX) 2 mg tablet Take 1 tablet (2 mg total) by mouth 2 (two) times a day. 2mg tablet AM and PM 60 tablet 5 03/10/2024 Active carbamide peroxide 65 mg/ml otic solution (13 sources) Start: 01-09-2024 MURINE EAR 6.5 % otic solution Administer 5 drops into both ears in the morning and 5 drops before bedtime. 01/09/2024 Active carvedilol 6.25 mg oral tablet (20 sources) alpha-Adrenergic Edgar, beta-Adrenergic Edgar Start: 07-12-2023 End: 07-10-2024 take 1 tablet by mouth once daily in the morning, then take 1 tablet by mouth once daily at bedtime carvediloL (COREG) 6.25 mg tablet TAKE 1 TABLET BY MOUTH EVERY MORNING AND TAKE 1 TABLET BY MOUTH EVERY NIGHT BEFORE BEDTIME 60 tablet 6 07/10/2024 Active Start: 07-12-2023 End: 02-05-2024 take 1 tablet by mouth in the morning, then take 1 tablet by mouth at bedtime carvediloL (COREG) 6.25 mg tablet Take 1 tablet (6.25 mg total) by mouth in the morning and 1 tablet (6.25 mg total) before bedtime. 60 tablet 11 07/12/2023 Active cefuroxime 500 mg oral tablet (1 source) Cephalosporin Antibacterial Start: 07-02-2024 End: 07-07-2024 take 1 tablet by mouth in the morning, then take 1 tablet by mouth at bedtime ceFUROxime (CEFTIN) 500 mg tablet Take 1 tablet (500 mg total) by mouth in the morning and 1 tablet (500 mg total) before bedtime. Do all this for 5 days. 10 tablet 07/02/2024 07/07/2024 Active cetirizine hydrochloride 10 mg oral tablet (20 sources) Histamine-1 Receptor Antagonist Start: 06-05-2023 cetirizine (ZyrTEC) 10 MG tablet 06/05/2023 Active Cholecalciferol (20 sources) Vitamin D Start: 01-29-2024 cholecalciferol Start Date: 01/29/24 Status: Ordered take 1 capsule by mouth every we ek cholecalciferol (VITAMIN D3) 50,000 units capsule Take 1 capsule (50,000 Units total) by mouth once a week. Active cyclobenzaprine hydrochloride 10 mg oral tablet (20 sources) Muscle Relaxant Start: 01-24-2024 take 1 tablet by mouth twice daily as needed for muscle spasms cyclobenzaprine (FLEXERIL) 10 mg tablet Take 1 tablet (10 mg total) by mouth 2 (two) times a day as needed for muscle spasms. 10 tablet 01/24/2024 Active Start: 06-16-2023 End: 06-27-2023 take 1 tablet by mouth twice daily as needed for muscle spasms cyclobenzaprine (FLEXERIL) 10 mg tablet Take 1 tablet (10 mg total) by mouth 2 (two) times a day as needed for muscle spasms. 10 tablet 0 06/16/2023 06/27/2023 Discontinued (Therapy completed) dicyclomine hydrochloride 10 mg oral capsule (20 sources) Anticholinergic Start: 08-23-2023 End: 02-05-2024 dicyclomine 10 mg Cap Refills(s) 0 Start Date: 08/23/23 Status: Ordered Start: 02-16-2022 End: 02-11-2023 take 1 capsule by mouth four times daily Bentyl 10 mg Cap 10 mg = 1 cap(s), Oral, QID, X 30 day(s), # 120 cap(s), Refills(s) 11, Pharmacy: [facility] #[id number], 172, cm, 02/16/22 12:26:00 EDT, Height/Length Dosing, 133, kg, 02/16/22 12:26:00 EDT, Weight Dosing Start Date: 02/16/22 Stop Date: 02/11/23 Status: Ordered diphenhydrAMINE hydrochloride 25 mg oral capsule (15 sources) Histamine-1 Receptor Antagonist Start: 02-11-2024 take 1 capsule by mouth every six hours as needed diphenhydrAMINE (BENADRYL) 25 mg capsule Take 1 capsule (25 mg total) by mouth every 6 (six) hours as needed for itching. 30 capsule 02/11/2024 Active doxycycline hyclate 100 mg oral capsule (2 sources) Tetracycline-cla ss Drug Start: 09-06-2023 End: 09-16-2023 take 1 capsule by mouth in the morning, then take 1 capsule by mouth at bedtime doxycycline (VIBRAMYCIN) 100 mg capsule Take 1 capsule (100 mg total) by mouth in the morning and 1 capsule (100 mg total) before bedtime. Do all this for 10 days. 20 capsule 09/06/2023 09/16/2023 Active 0.4 ml enoxaparin sodium 100 mg/ml prefilled syringe (11 sources) Low Molecular Weight Heparin Start: 06-12-2024 inject 0.4 mL by subcutaneous injection in the morning enoxaparin (LOVENOX) 40 mg/0.4 mL syringe Inject 0.4 mL (40 mg total) under the skin in the morning. 4 mL 06/12/2024 Active Start: 07-05-2023 End: 07-15-2023 inject 0.4 mL by subcutaneous injection in the morning enoxaparin (LOVENOX) 40 mg/0.4 mL syringe Inject 0.4 mL (40 mg total) under the skin in the morning for 10 days. 4 mL 0 07/05/2023 07/15/2023 Active ergocalciferol 1.25 mg oral capsule (20 sources) Provitamin D2 Compound Start: 08-23-2023 ergocalciferol 50,00 0 intl units Cap Refills(s) 0 Start Date: 08/23/23 Status: Ordered Start: 06-11-2023 take 1 capsule by [facility] every week ergocalciferol (DRISDOL) 1,250 mcg (50,000 unit) capsule Take 1 capsule (50,000 Units total) by mouth once a week. 06/11/2023 Active Start: 06-11-2023 ergocalciferol (Vitamin D2) 1.25 MG (32490 UT) capsule 06/11/2023 Active famotidine 20 mg oral tablet (20 sources) Histamine-2 Receptor Antagonist Start: 07-05-2022 End: 02-05-2024 take 1 tablet by mouth in the morning famotidine (PEPCID) 20 mg tablet Take 1 tablet (20 mg total) by mouth in the morning. 90 tablet 3 09/12/2023 Active FeroSul 325 mg oral tablet (13 sources) Start: 02-16-2022 take 1 tablet by [...] 06/15/2020 Active fluocinonide 0.5 mg/ml topical solution (20 sources) Corticosteroid Start: 08-23-2023 fluocinonide topical 0.05% [...] Application topically 2 (two) times a week. 03/09/2023 Active levonorgestrel 0.352364 mg/hr intrauterine system (20 sources) Progestin, Progestin-containing Intrauterine Device Start: 09-26-2023 End: 09-24-2028 Levonorgestrel intrauterine device 52 mg lidocaine 0.05 mg/mg medicated patch (20 sources) Antiarrhythmic, Amide Local Anesthetic Start: 02-06-2024 [...] over 12 Hours, Daily, First dose on 02/03/24 at 1830, Apply to intact skin on [...] 02/16/22 Status: Ordered Lupkynis 7.9 MG capsule (20 sources) Start: 07-31-2023 take 1 capsule by mouth in the morning Lupkynis 7.9 MG capsule Take 7.9 mg by mouth in the morning and 7.9 mg before bedtime. 07/31/2023 Active magnesium oxide 400 mg oral tablet (20 sources) Start: 11-07-2022 End: 02-05-2024 take 1 tablet by mouth in the morning, then take 1 tablet by mouth at bedtime magnesium oxide (MAGOX) 400 mg tablet Take 1 tablet (400 mg total) by mouth in the morning and 1 tablet (400 mg total) before bedtime. 06/04/2023 Active medroxyPROGESTERone acetate 10 mg oral tablet (20 sources) Progestin Start: 03-20-2023 End: 01-31-2024 take 1 tablet by mouth once daily medroxyPROGESTERone (Provera) 10 MG tablet Indications: Menorrhagia with regular cycle Take 1 tablet (10 mg) by mouth Daily 30 tablet 3 07/18/2023 Active methocarbamol 750 mg oral tablet (20 sources) Muscle Relaxant Start: 01-29-2024 End: 01-31-2024 methocarbamol 750 mg Tab 750 mg = 1 tab(s), Oral Start Date: 01/29/24 Status: Ordered methocarbamoL (R OBAXIN) 750 mg tablet Take 1 tablet (750 mg total) by mouth as needed for muscle spasms. Active Multiple Vitamin (Multi-Vitamin) tablet (20 sources) Start: 03-29-2023 take 1 tablet by mouth in the morning Multiple Vitamin (Multi-Vitamin) tablet Take 1 tablet by mouth in the morning. 03/29/2023 Active mycophenolate mofetil 500 mg oral tablet (20 sources) Start: 07-09-2024 take 3 tablets intravenously twice daily mycophenolate (CELLCEPT) 500 mg tablet Indications: Stage IV lupus nephritis (WHO) ([facility]) , Systemic lupus erythematosus, unspecified SLE type, unspecified organ involvement status ([facility] , Encounter for [facility] use of mycophenolate mofetil 3 tab twice daily 540 tablet 1 07/09/2024 Active Start: 07-02-2024 End: 08-03-2024 take 2 tablets by mouth twice daily, then take 3 tablets by mouth twice daily mycophenolate (CELLCEPT) 500 mg tablet Take 2 tablets (1,000 mg total) by mouth 2 (two) times a day for 2 days, THEN 3 tablets (1,500 mg total) 2 (two) times a day for 30 days. 07/02/2024 07/09/2024 Discontinued (Reorder) Start: 01-31-2024 End: 02-05-2024 take 1500 mg by mouth twice daily after mealtime 1,500 mg, oral, 2 times daily, First dose on Aleida 01/31/24 at 2100, Do not crush or chew. Pediatric patients only-adminster on empty stomach at least 1 hour before or 2 hours after meals. Start: 08-23-2023 mycophenolate mofetil 500 mg oral tablet Refills(s) 0 Start Date: 08/23/23 Status: Ordered Start: 05-03-2023 End: 04-09-2024 take 3 tablets intravenously twice daily mycophenolate (CELLCEPT) 500 mg tablet Indications: Stage IV lupus nephritis (WHO) ([facility]) , Systemic lupus erythematosus, unspecified SLE type, unspecified organ involvement status [place] , Encounter for [facility] use of mycophenolate mofetil 3 tab twice daily 180 tablet 3 04/09/2024 Active Start: 04-02-2023 take 3 tablets intra venously twice daily mycophenolate (CELLCEPT) 500 mg tablet Indications: Stage IV lupus nephritis (WHO) ([facility]) , Systemic lupus erythematosus, unspecified SLE type, unspecified organ involvement status ([facility] , Encounter for [facility] use of mycophenolate mofetil 3 tab twice daily 180 tablet 5 04/02/2023 Active Start: 02-08-2023 take 2 tablets by mo uth in the morning mycophenolate (Cellcept) 500 MG tablet Take 1,000 mg by mouth in the morning and 1,000 mg before bedtime. 02/08/2023 Active nitrofurantoin, macrocrystals 50 mg oral capsule (16 sources) Nitrofuran Antibacterial Start: 01-29-2024 nitrofurantoin (MACRODANTIN) 50 mg capsule Take 1 capsule (50 mg total) by mouth as needed (Take 1 capsule after sexual activity to prevent UTI.). 01/29/2024 Active Start: 09-05-2022 nitrofurantoin macrocrystals 50 mg Cap See Instructions, 1 cap(s) Oral PRN after intercourse to prevent UTI, # 15 cap(s), Refills(s) 6, Pharmacy: [facility] #[id number], 172, cm, 09/05/22 9:24:00 EDT, Height/Length Dosing, 132, kg, 09/05/22 9:24:00 EDT, Weight Dosing Start Date: 09/05/22 Status: Ordered ondansetron 4 mg oral tablet (20 sources) Serotonin-3 Receptor Antagonist Start: 06-25-2024 take 1 tablet by mouth every eight hours as needed for nausea Zofran 4 mg Tab 4 mg = 1 tab(s), Oral, q8hr, PRN Nausea/Vomiting, # 60 tab(s), Refills(s) 6, Pharmacy: [facility] [id number], 174, cm, 06/25/24 9:41:00 EST, Height/Length Dosing, 124, kg, 06/25/24 9:41:00 EST, Weight Dosing Start Date: 06/25/24 Status: Ordered Start: 06-03-2023 End: 06-27-2023 ondansetron ODT (Zofran-ODT) 4 MG disintegrating tablet [...] 5 mg oral tablet (20 sources) Start: 07-09-2024 take 1 tablet intravenously once daily predniSONE (DELTASONE) 5 mg tablet Indications: Stage IV lupus nephritis (WHO) ([facility] [place] , Systemic lupus erythematosus, unspecified SLE type, unspecified organ involvement status ([facility] [place] 1. TAB DAILY 90 tablet 1 07/09/2024 Active Start: 04-09-2024 End: 07-09-2024 take 1 tablet intravenously once daily predniSONE (DELTASONE) 5 mg tablet Indications: Stage IV lupus nephritis (WHO) ([facility] [place] , Systemic lupus erythematosus, unspecified SLE type, unspecified organ involvement status ([facility] [place] 1. TAB DAILY 30 tablet 3 04/09/2024 07/09/2024 Discontinued (Reorder) Start: 02-01-2024 End: 02-05-2024 take 5 mg [...] tablet Indications: Stage IV lupus nephritis (WHO) ([facility] [place] , Systemic lupus erythematosus, unspecified SLE type, unspecified organ involvement status ([facility] [place] 1.5 TAB FOR 2 WEEKS,THEN 1 TAB DAILY 45 tablet 3 03/04/2024 04/09/2024 Discontinued (Reorder) Start: 10-08-2023 End: 01-17-2024 take 2 tablets intravenously once daily predniSONE (DELTASONE) 5 mg tablet Indications: Stage IV lupus nephritis (WHO) ([facility] [place] , Systemic lupus erythematosus, unspecified SLE type, unspecified organ involvement status ([facility] [place]) 2 tab daily 60 tablet 3 10/08/2023 01/17/2024 Discontinued (Reorder) Start: 08-30-2023 End: 10-08-2023 take 3 tablets intravenously once daily predniSONE (DELTASONE) 5 mg tablet Indications: Stage IV lupus nephritis (WHO) ([facility] [place] , Systemic lupus erythematosus, unspecified SLE type, unspecified organ involvement status ([facility] [place]) 3 tab daily 90 tablet 1 08/30/2023 10/08/2023 Discontinued (Reorder) Start: 05-16-2023 End: 08-30-2023 take 1 tablet by mouth in the morning, then take 1 tablet by mouth once daily predniSONE (DELTASONE) 20 mg tablet Indications: Stage IV lupus nephritis (WHO) ([facility] [place] , Systemic lupus erythematosus, unspecified SLE type, unspecified organ involvement status ([facility] [place]) Take 1 tablet (20 mg total) by mouth in the morning. One tab daily. 30 tablet 1 07/31/2023 Active Start: 04-02-2023 take 1.5 tablets int ravenously once daily, then take 1 tablet intravenously once daily predniSONE (DELTASONE) 20 mg tablet Indications: Stage IV lupus nephritis (WHO) ([facility] [place] , Systemic lupus erythematosus, unspecified SLE type, unspecified organ involvement status ([facility] [place]) , technician terminal and repeater systemic steroid user 1.5 tab daily for 2 weeks,then 1 tab daily 45 tablet 1 04/02/2023 Active Start: 02-19-2023 predniSONE (De ltasone) 20 MG tablet Take 15 mg by mouth Daily 02/19/2023 Active rimegepant 75 mg disintegrating oral tablet (8 sources) Start: 03-14-2024 rimegepant (NURTEC ODT) 75 [...] Status: Ordered rizatriptan 10 mg oral tablet (20 sources) Serotonin-1b and Serotonin-1d Receptor Agonist Start: 08-17-2023 take 1 tablet by mouth once rizatriptan (Maxalt) 10 MG tablet Take 10 mg by mouth 1 (one) time if needed for migraine 08/17/2023 Active Start: 08-17-2023 End: 01-31-2024 rizatriptan 10 mg Tab Refill s(s) 0 Start Date: 08/23/23 Status: Ordered trimethoprim 100 mg oral tablet (2 sources) Dihydrofolate Reductase Inhibitor Antibacterial Start: 05-19-2024 trimethoprim 100 mg Tab See Instructions, 1 tab po with sexual activity for UTI prevention., # 15 tab(s), Refills(s) 3, Pharmacy: [facility] [id number], 174, cm, 05/19/24 10:34:00 EST, Height/Length Dosing, 124, kg, 05/19/24 10:34:00 EST, Weight Dosing Start Date: 05/19/24 Status: Ordered voclosporin 7.9 mg capsule (20 sources) Start: 07-09-2024 voclosporin 7. 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 60 capsule 5 07/09/2024 Active Start: 04-29-2024 End: 07-09-2024 voclosporin 7.9 mg capsule I ndications: Stage IV lupus nephritis (WHO) (CMS-HCC) Take 23.7 mg by mouth in the morning and 23.7 mg before bedtime. 60 capsule 3 04/29/2024 07/09/2024 Discontinued (Reorder) Start: 04-29-2024 voclosporin 7. 9 mg capsule [...] bedtime. 60 capsule 3 11/27/2023 Active Start: 10-08-2023 End: 11-27-2023 voclosporin 7.9 mg capsule I ndications: Stage IV lupus nephritis (WHO) ([facility]) Take 23.7 mg by mouth in the morning and 23.7 mg before bedtime. 60 capsule 3 10/08/2023 11/27/2023 Discontinued Start: 10-08-2023 voclosporin 7. 9 mg capsule Indications: Stage IV lupus nephritis (WHO) ([facility]) Take 23.7 mg by mouth in the morning and 23.7 mg before bedtime. 60 capsule 3 10/08/2023 Active Start: 07-31-2023 End: 10-08-2023 voclosporin 7.9 mg capsule I ndications: Stage IV lupus nephritis (WHO) ([facility]) Take 23.7 mg by mouth in the morning and 23.7 mg before bedtime. 60 capsule 3 07/31/2023 10/08/2023 Discontinued (Reorder) Start: 07-31-2023 voclosporin 7. 9 mg capsule Indications: Stage IV lupus nephritis (WHO) ([facility]) Take 23.7 mg by mouth in the morning and 23.7 mg before bedtime. 60 capsule 3 07/31/2023 Active Start: 07-31-2023 End: 07-31-2023 voclosporin 7.9 mg capsule I ndications: Stage IV lupus nephritis (WHO) ([facility]) Take 23.7 mg by mouth in the morning and 23.7 mg before bedtime. 60 capsule 3 07/31/2023 07/31/2023 Discontinued (Reorder) voclosporin 7.9 MG Oral Caps ule [Lupkynis] (4 sources) Start: 08-23-2023 Lupkynis 7.9 m g oral capsule Refills(s) 0 Start Date: 08/23/23 Status: Ordered Completed/Discontinued Medications Medication Drug Class(es) Dates Sig (Normalized) Sig (Original) clindamycin 150 mg oral capsule (10 sources) Lincosamide Antibacterial Start: 02-03-2024 End: 02-04-2024 [...] 01/24/2024 02/05/2024 Discontinued (Stop Taking at Discharge) docusate sodium 50 mg / sennosides, detention 8.6 mg oral tablet (1 source) Start: 01-31-2024 End: 02-05-2024 take 1 tablet by mouth every twelve hours as needed for constipation 1 tablet, oral, Every 12 hours PRN, constipation, Starting on Sun01/31/24 at 1529 emtricitabine 200 mg / tenofovir [...] tablet by mouth in the morning. Active etonogestrel 68 mg drug implant (20 sources) Progestin Start: 12-12-2022 End: 06-10-2024 etonogestrel-eluting 68 mg contraceptive implant 1 each Start: 02-16-2022 Nexplanon 68 m g, SubCutaneous, in pts right arm, Refills(s) 0, control/menstrual regulation Start Date: 02/16/22 Status: Ordered Start: 02-16-2022 Nexplanon Refi lls(s) 0, control/menstrual regulation Start Date: 02/16/22 Status: Ordered Start: 02-16-2022 Nexplanon Refi lls(s) 0 Start Date: 02/16/22 Status: Ordered etonogestrel-elu ting (Nexplanon) 68 mg contraceptive implant Nexplanon Active gadoteridoL (PROHANCE) injection 10 mmol 20 mL (1 source) Start: 02-03-2024 End: 02-03-2024 10 mmol (rounded from 12.55 mmol = 0.1 mmol/kg 125.5 kg), intravenous, Once in imaging, contrast, MRI, Starting on [place] 02/03/24 at 1215, For 1 dose, VESICANT [...] Units/hr (6-70 mL/hr), intravenous, Continuous, Starting on 02/04/24 at 1230, Maximum initial infusion: 1000 units/hr [...] results less than 40 seconds, Starting on 02/01/24 at 1726, Look-alike/sound-alike medication - verify indication [...] intravenously once 1 mg, intravenous, Once, On 02/03/24 at 1145, For 1 dose, Look-alike/sound -alike [...] use. metoprolol tartrate 25 mg oral tablet (19 sources) beta-Adrenergic Edgar Start: 06-15-2023 End: 07-12-2023 [...] at bedtime. 0 Active multivitamin (THERAGRAN) tablet (20 sources) Start: 03-29-2023 End: 01-31-2024 take 1 [...] day(s), # 90 cap(s), Refills(s) 1, Pharmacy: [facility] #[id number], 175, cm, 08/10/22 12:49:00 EDT, Height/Length Dosing, 133.3, kg, 08/10/22 12:49:00 EDT, Weight Dosing Start Date: 08/10/22 Stop Date: 02/06/23 Status: Ordered Start: 03-10-2022 take 1 capsule by mo uth once daily omeprazole 40 mg Cap-DR 40 mg = 1 cap(s), Oral, Daily, # 30 cap(s), Refills(s) 2, Pharmacy: [facility] #[id number], 172, cm, 03/10/22 12:42:00 EST, Height/Length Dosing, 133, kg, 03/10/22 12:42:00 EST, Weight Dosing Start Date: 03/10/22 Status: Ordered microencapsulated potassium chloride 10 meq extended release oral tablet (20 sources) Start: 01-31-2024 End: 02-05-2024 20 mEq, oral, 2 times daily, First dose on [place] 01/31/24 at 2100, Do not crush or chew. Start: 08-23-2023 Potassium Chlo ride (Jkr-Iyze-Pwj M20) 20 mEq oral tablet, extended release Refills(s) 0 Start Date: 08/23/23 Status: Ordered Start: 12-21-2022 take 1 tablet by chavez th in the morning potassium chloride (KLOR-CON M 20) 20 MEQ CR tablet Take 1 tablet (20 mEq total) by mouth in the morning and 1 tablet (20 mEq total) before bedtime. 180 tablet 3 12/20/2023 Active sevelamer carbonate 800 mg oral tablet (13 sources) Phosphate Binder Start: 02-02-2023 End: 07-12-2023 [...] in imaging, line care, MRI, Starting on [place] 02/03/24 at 1215, For 1 dose Start: 01-31-2024 End: 01-31-2024 80 mL, intravenous, Once in imaging, pre/post contrast, Starting on [facility] 01/31/24 at 2350, For 1 dose Start: 01-31-2024 End: 02-05-2024 3 mL, intravenous, Every 12 hours scheduled, First dose on [facility] 01/31/24 at 2100 Start: 01-31-2024 End: 02-05-2024 10 mL, intravenous, As neede d, line care, Starting on [facility] 01/31/24 at 2350 Start: 01-31-2024 End: 02-05-2024 take 20 mL intravenously every hour as needed 20 mL/hr, intravenous, Continuous PRN, to maintain patency of lines, Starting on [facility] 01/31/24 at 1527 Start: 01-31-2024 End: 02-05-2024 take 25 mL intravenously every hour as needed 25 mL, intravenous, at 100 mL/hr, Administer over 15 Minutes, As needed, line care, line care after IVPB administration, Starting on [facility] 01/31/24 at 1527 ubrogepant 100 mg oral tablet (12 sources) Start: 07-05-2023 End: 08-17-2023 ubrogepant (UBRELVY) 100 mg tablet Indications: Migraine without aura and without status migrainosus, not intractable , Uncontrolled hypertension Take 1 tablet just after onset of migraine. May repeat the dose after 2 hours if CURRY persists. Max of 2 doses per 24 hours. 16 tablet 5 07/05/2023 08/17/2023 Discontinued vitamin b12 1 mg oral tablet (20 [...] Chronic Attention-deficit, conduct, and disruptive behavior disorders (13 sources) Adult attention deficit hyperactivity disorder 02-15-2022 Chronic Attention-deficit, conduct, and disruptive behavior disorders (20 sources) Attention deficit hyperactivity disorder, predominantly inattentive type; Translations: [Other specified behavioral and emotional disorders with onset usually occurring in childhood and adolescence] Onset: 4 02-16-2022 Chronic Chronic kidney disease (6 sources) Chronic kidney disease stage 3; Translations: [Stage 3 chronic kidney disease, unspecified whether stage 3a or 3b CKD ([facility])] Onset: 5 06-13-2023 Chronic Chronic kidney disease (1 source) Chronic kidney disease; Translations: [Chronic kidney disease, stage 3 unspecified] Onset: 4 Coronary atherosclerosis and other heart disease (2 sources) Unstable angina; Translations: [Preinfarction syndrome] Onset: 4 06-06-2023 Chronic Deficiency and other anemia (20 sources) Anemia due to blood loss; Translations: [Iron deficiency anemia secondary to blood loss (chronic)] Onset: 1 06-23-2020 Chronic Deficiency and other anemia (10 sources) Anemia 07-05-2022 Episodic Diabetes mellitus without complication (20 sources) Type 2 diabetes mellitus; Translations: [Type 2 diabetes mellitus without complications] Onset: 4 02-16-2022 Chronic Diseases of mouth; excluding dental (1 source) Other diseases of tongue; Translations: [Other diseases of tongue] Onset: 4 Episodic Esophageal disorders (20 sources) Gastroesophageal reflux disease; Translations: [Gastroesophageal reflux disease without esophagitis] Onset: 3 08-10-2022 Chronic Essential hypertension (20 sources) Hypertensive disorder; Translations: [Essential (primary) hypertension] Onset: 9 02-15-2022 Chronic Fluid and electrolyte disorders (20 sources) Hypokalemia; Translations: [Hypokalemia] Onset: 4 01-31-2024 Episodic Headache; including migraine (20 sources) Migraine without aura, not intractable, without status migrainosus; Translations: [Migraine without aura, not refractory ] Onset: 4 07-05-2023 Chronic Headache; including migraine (3 sources) Headache; including migraine; Translations: [Headache, unspecified] Onset: 4 Influenza (1 source) Influenza due to other identified influenza virus with other respiratory manifestations; Translations: [Influenza due to other identified influenza virus with other respiratory manifestations] Onset: 5 Episodic Menstrual disorders (20 sources) Menometrorrhagia; Translations: [Excessive and frequent menstruation with irregular cycle] Onset: 3 02-19-2023 Chronic Mood disorders (20 sources) Depressive disorder; Translations: [Depressive disorder] Onset: 4 02-16-2022 Chronic Nephritis; nephrosis; renal sclerosis (20 sources) Nephrotic syndrome; Translations: [Nephrotic syndrome with unspecified morphologic changes] Onset: 3 12-17-2022 Chronic Nutritional deficiencies (20 sources) Vitamin D deficiency; Translations: [Vitamin D deficiency, unspecified] Onset: 3 11-28-2022 Chronic Other acquired deformities (2 sources) Equinus contracture of the ankle; Translations: [Contracture, right ankle] 12-24-2023 Chronic Other and ill-defined heart disease (1 source) Cardiomegaly; Translations: [Cardiomegaly] Onset: 4 Chronic Other and ill-defined heart disease (19 sources) Left ventricular hypertrophy; Translations: [Cardiomegaly] Onset: 4 01-31-2024 Chronic Other congenital anomalies (2 sources) Os trigonum; 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] 12-24-2023 Chronic Other congenital anomalies (2 sources) Right metatarsus adductus; Translations: [Congenital metatarsus adductus, right foot] 12-24-2023 Chronic Other female genital disorders (3 sources) Abnormal uterine bleeding; Translations: [Abnormal uterine and vaginal bleeding, unspecified] 05-13-2024 Chronic Other gastrointestinal disorders (9 sources) Abdominal wind pain; Translations: [Gas pain] Onset: 3 08-10-2022 Episodic Other gastrointestinal disorders (1 source) Digestive system finding; Translations: [Other specified symptoms and signs involving the digestive system and abdomen] Onset: 4 Episodic Other inflammatory condition of skin (4 sources) Lupus erythematosus 08-22-2023 Chronic Other lower respiratory disease (1 source) Other forms of dyspnea; Translations: [Other forms of dyspnea] Onset: 4 Episodic Other lower respiratory disease (2 sources) Cough Onset: 4 Episodic Other lower respiratory disease (1 source) Wheezing Onset: 4 Episodic Other nervous system disorders (1 source) Other chronic pain; Translations: [OTHER CHRONIC PAIN] Onset: 2 Chronic Other nervous system disorders (2 sources) Difficulty walking; Translations: [Difficulty in walking, not elsewhere classified] 12-24-2023 Chronic Other nutritional; endocrine; and metabolic disorders (13 sources) Morbid obesity 02-16-2022 Chronic Other nutritional; endocrine; and metabolic disorders (10 sources) Body mass index 40+ - severely obese 06-26-2022 Chronic Other nutritional; endocrine; and metabolic disorders (2 sources) Body mass index (BMI) 39.0-39.9, adult; Translations: [Body mass index (BMI) 39.0-39.9, adult] Onset: 4 Chronic Other nutritional; endocrine; and metabolic disorders (5 sources) Body mass index 30+ - obesity; Translations: [Body mass index (BMI) 39.0-39.9, adult] 08-20-2023 Chronic Other screening for suspected conditions (not mental disorders or infectious disease) (4 sources) Encounter for screening for malignant neoplasm of cervix; Translations: [ENC SCREENING MALIG NEOPLASM CERV] Onset: 2 Episodic Other upper respiratory disease (20 sources) Allergic rhinitis; Translations: [Allergic rhinitis, unspecified] Onset: 4 02-16-2022 Chronic Other upper respiratory infections (2 sources) Chronic sinusitis, unspecified; Translations: [Sinusitis] Onset: 4 Chronic Screening and history of mental health and substance abuse codes (5 sources) H/O: Disorder; Translations: [Personal history of nicotine dependence] Onset: 4 Episodic Sexually transmitted infections (not HIV or hepatitis) (20 sources) Syphilis titer test positive ; 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, unspecified as early or late] Onset: 3 01-31-2024 Chronic Systemic lupus erythematosus and connective tissue disorders (20 sources) 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; Translations: [Systemic lupus erythematosus] Onset: 3 Chronic Systemic lupus erythematosus and connective tissue disorders (1 source) Systemic lupus erythematosus and connective tissue disorders Onset: 4 Unclassified (10 sources) Drug therapy finding 06-26-2022 Unclassified (1 source) New Patient Onset: 4 Unclassified (4 sources) Long-term current use of cannabis 08-22-2023 Unclassified (2 sources) New Patient Visit; Translations: [New Patient Visit] Onset: 4 Unclassified (1 source) MNT - Individual Onset: 4 Unclassified (2 sources) technician terminal and repeater (current) use of inhibitors of nucleotide synthesis; Translations: [FPC (current) use of inhibitors of nucleotide synthesis] Onset: 3 Unclassified (1 source) Pre-op Exam Onset: 5 Unclassified (1 source) Medical Screening Onset: 5 Unclassified (1 source) Tongue Swelling - Minor Onset: 4 Unclassified (1 source) Rash Onset: 4 Unclassified (1 source) Weakness - Generalized Onset: 4 Unclassified (1 source) Ingestion - Accidental Onset: 4 Unclassified (1 source) Earache Onset: 4 Unclassified (1 source) RUNNY NOSE, SORE THROAT Onset: 4 Viral infection (1 source) Other viral agents as the cause of diseases classified elsewhere; Translations: [Other viral agents as the cause of diseases classified elsewhere] Onset: 4 Episodic Past or Other Problems Problem Classification Problem Date Documented Da te Episodic/Chronic Abdominal pain (20 sources) Epigastric pain; Translations: [Epigastric pain] Onset: 1 Episodic Acute and unspecified renal failure (20 sources) Acute renal failure syndrome; Translations: [Acute kidney failure, unspecified] Onset: 3 11-28-2022 Episodic Allergic reactions (3 sources) Other allergy status, other than to drugs and biological substances; Translations: [Environmental allergy] Onset: 4 08-02-2023 Episodic Biliary tract disease (20 sources) Cholelithiasis without obstruction; Translations: [Calculus of gallbladder without cholecystitis without obstruction] Onset: 2 Episodic Blindness and vision defects (3 sources) Unspecified visual disturbance; Translations: [Eye / vision finding] Onset: 4 07-05-2023 Episodic Cancer of cervix [...] unspecified] Onset: 1 Resolved: 1 06-30-2020 Episodic Gastritis and duodenitis (20 sources) Gastritis; Translations: [Gastritis, unspecified, without bleeding] Onset: 3 08-10-2022 Episodic Genitourinary symptoms and ill-defined conditions (20 sources) Microscopic hematuria; Translations: [Other microscopic hematuria] Onset: 4 01-31-2024 Episodic Headache; including migraine (20 sources) Headache; Translations: [Headache] Onset: 4 02-01-2024 Episodic Hemorrhage during ; abruptio placenta; placenta previa (20 sources) Low lying placenta; Translations: [Low lying placenta NOS or without hemorrhage, unspecified trimester] Onset: 9 Resolved: 0 02-03-2020 Episodic Immunizations and screening for infectious disease (20 sources) Encounter for screening for human papillomavirus (HPV); Translations: [Exposure to Human immunodeficiency virus] Onset: 2 01-31-2024 Episodic Inflammatory diseases of female pelvic organs (20 sources) Cyst of Bartholin's gland duct; Translations: [Cyst of Bartholin's gland] Onset: 3 01-31-2024 Episodic Malaise and fatigue (20 sources) Right hemiparesis; Translations: [Weakness] Onset: 4 01-31-2024 Episodic Mood disorders (20 sources) Mood disorders Onset: 4 Resolved: 4 02-01-2024 Nausea and vomiting (20 sources) Nausea; Translations: [Nausea] Onset: 2 Episodic Nonspecific chest pain (20 sources) Chest pain; Translations: [Other chest pain] Onset: 4 06-19-2023 Episodic Other aftercare (3 sources) Other technician terminal and repeater (current) drug therapy; Translations: [OTH FOLDING MACHINE OPERATOR CURRENT DRUG THERAPY] Onset: 2 Episodic Other aftercare (20 sources) Long-term current use of mycophenolate; Translations: [Encounter for technician terminal and repeater use of mycophenolate mofetil] Onset: 3 12-20-2022 Episodic Other aftercare (20 sources) FPC systemic steroid user; Translations: [FPC (current) use of systemic steroids] Onset: 3 07-04-2023 Episodic Other aftercare (1 source) FPC (current) use of systemic steroids; Translations: [FPC (current) use of systemic steroids] Onset: 4 Episodic Other aftercare (20 sources) Long-term current use of drug therapy; Translations: [Other chcf (current) drug therapy] Onset: 3 12-20-2022 Episodic Other aftercare (20 sources) Drug therapy status; Translations: [Other chcf (current) drug therapy] Onset: 3 12-20-2022 Episodic Other aftercare (20 sources) Drug therapy finding; Translations: [technician terminal and repeater (current) use of anticoagulants] Onset: 3 02-19-2023 [...] 1 06-30-2020 Episodic Other connective tissue disease (3 sources) Fibromyalgia; Translations: [Fibromyalgia] Onset: 3 Episodic Other connective tissue disease (20 sources) Fibromyalgia; Translations: [Fibromyalgia] Onset: 3 01-31-2024 Episodic Other connective tissue disease (1 source) [...] ear and sense organ disorders (2 sources) Tinnitus of left ear; Translations: [Tinnitus, left ear] 11-28-2023 Episodic Other ear and sense organ disorders (1 source) Bilateral tinnitus; Translations: [Tinnitus, bilateral] 11-28-2023 Episodic Other ear and sense organ disorders (1 source) Unspecified acute noninfective otitis externa, left ear; Translations: [Unspecified acute noninfective otitis externa, left ear] Onset: 4 Episodic Other gastrointestinal disorders (20 sources) Constipation alternates with diarrhea; Translations: [Other specified symptoms and signs involving the digestive system and abdomen] Onset: 4 08-22-2023 Episodic Other lower respiratory disease (2 sources) Shortness of breath Onset: 4 Episodic Other lower respiratory disease (20 sources) Dyspnea on exertion; Translations: [Other forms of dyspnea] Onset: 4 08-02-2023 Episodic Other lower respiratory disease (1 source) Shortness of breath; Translations: [Shortness of breath] Onset: 4 Episodic Other nervous system disorders (20 sources) Lopez's palsy; 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] Onset: 4 01-31-2024 Episodic Other nervous system disorders (2 sources) Lopez's palsy; 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] Onset: 4 Episodic Other non-traumatic joint disorders (2 sources) Instability of joint of right ankle; Translations: [Other instability, right ankle] 12-24-2023 Episodic Other and delivery including normal (20 sources) Dichorionic diamniotic twin ; Translations: [Twin , dichorionic/diamniotic , second trimester] Onset: 9 Resolved: 1 07-17-2022 Episodic Other skin disorders (1 source) Rash and other nonspecific skin eruption; Translations: [Rash and other nonspecific skin eruption] Onset: 4 Episodic Other skin disorders (1 source) Ingrowing [...] ultrasound] Onset: 9 Resolved: 0 02-03-2020 Episodic Sexually transmitted infections (not HIV or hepatitis) (1 source) Syphilis, unspecified; Translations: [Syphilis, unspecified] Onset: 4 Episodic Spondylosis; intervertebral disc disorders; other back problems (15 sources) Backache; Translations: [Cervicalgia] Onset: 4 02-16-2022 Episodic Substance-related disorders (19 sources) Long-term current use of cannabis; Translations: [Cannabis use, unspecified, uncomplicated] Onset: 4 01-31-2024 Episodic Superficial injury; contusion (20 sources) Intra-abdominal hematoma; Translations: [Contusion of abdominal wall, initial encounter] Onset: 1 06-09-2020 Episodic Unclassified (1 source) Exposure to 2019 novel coronavirus; Translations: [Contact with and (suspected) exposure to COVID19] Urinary tract infections (20 sources) Urinary tract infectious disease; Translations: [Urinary tract infection, site not specified] Onset: 3 Episodic Results Test Name Value Interpretation Reference Range Facility CBC AND AUTO DIFFon 07-09-19 25 ABSOLUTE BASOPHIL 0.0 X10E9/L Normal 0.0-0.2 [facility] Comment on above: Performed By: #### 8 2477-1, CBCA, CMP, 1988-5, 88704-5, 2777- 1, UPCR, 2731-8, 20048-2 ####[facility] ([id number])[address] [facility], [address] [place] [address] ABSOLUTE NEUTROPHIL 3.0 X10E9/L Normal 1.5-6.6 [facility] Comment on above: Performed By: #### 8 2477-1, CBCA, CMP, 1987-08, , 277- , UPCR, 273-8, 96203-9 ####[facility] ([id number])[address], [address], [place] [address] Basophils/100 WBC (Bld) 0.5 % Normal [facility] Comment on above: Performed By: #### 8 2477-1, CBCA, CMP, 1987-08, , 2776- , UPCR, 273-8, 21159-5 ####[facility] ([id number])[address], [address], [place] [address] Eosinophils (Bld) [#/Vol] 0.0 10*3/uL Normal 0.0-0.4 [facility] Comment on above: Performed By: #### 8 2477-1, CBCA, CMP, 1987-08, , , UPCR, 2730-8, 56558-8 ####[facility] ([id number])[address], [address], [place] [address] Eosinophils/100 WBC (Bld) 0.2 % Normal [facility] Comment on above: Performed By: #### 8 2477-1, CBCA, CMP, 1987-08, , , UPCR, 2730-8, 80298-4 ####[facility] ([id number])[address], [address], [place] [address] Erythrocyte distribution width (RBC) [Ratio] 13.6 % Normal 11.5-15.0 [facility] Comment on above: Performed By: #### 8 2477-1, CBCA, CMP, 1987-08, , 277- , UPCR, 273-8, 84853-4 ####[facility] ([id number])[address], [address] [place] [address] Hematocrit (Bld) [Volume fraction] 35.3 % Normal 35-47 [facility] Comment on above: Performed By: #### 8 2477-1, CBCA, CMP, 1987-08, , , UPCR, 8, 21152-3 ####[facility] ([id number])[address], [address] [place] [address] Hemoglobin (Bld) [Mass/Vol] 12.5 g/dL Normal 11.7-15.5 [facility] Comment on above: Performed By: #### 8 2477-1, CBCA, CMP, 1987-08, , , UPCR, 2730-11, 37344-2 ####[facility] ([id number])[address] [address] [place] [address] Lymphocytes (Bld) [#/Vol] 1.6 10*3/uL Normal 1.0-3.5 [facility] Comment on above: Performed By: #### 8 2477-1, CBCA, CMP, 1987-08, , , UPCR, 2730-11, 11049-7 ####[facility] ([id number])[address] [address] [place] [address] Lymphocytes/100 WBC (Bld) 30.6 % Normal [facility] Comment on above: Performed By: #### 8 2477-1, CBCA, CMP, 1987-08, , , UPCR, 2730-11, 60921-5 ####[facility] ([id number])[address] [address] [place] [address] MCH (RBC) [Entitic mass] 32.1 pg Normal 27-34 [facility] Comment on above: Performed By: #### 8 2477-1, CBCA, CMP, 1987-08, , , UPCR, 2730-8, 05986-4 ####[facility] ([id number])[address], [address] [place] [address]38 MCHC (RBC) [Mass/Vol] 35.3 g/dL Normal 32-36 [facility] Comment on above: Performed By: #### 8 2477-1, CBCA, CMP, 1987-08, , , UPCR, 8, 02477-4 ####[facility] ([id number])[address] [address] [place] [address] MCV (RBC) [Entitic vol] 91 fL Normal 80-100 [facility] Comment on above: Performed By: #### 8 2477-1, CBCA, CMP, 1987-08, , , UPCR, 2730-11, 76067-6 ####[facility] ([id number])[address] [address] [place] [address] Monocytes (Bld) [#/Vol] 0.6 10*3/uL Normal 0-0.9 [facility] Comment on above: Performed By: #### 8 2477-1, CBCA, CMP, 1987-08, , , UPCR, 2730-11, 15584-0 ####[facility] ([id number])[address] [address] [place] [address] Monocytes/100 WBC (Bld) 10.8 % Normal [facility] Comment on above: Performed By: #### 8 2477-1, CBCA, CMP, 1987-08, , , UPCR, 2730-11, 49473-9 ####[facility] ([id number])[address] [address] [place] [address] Neutrophils/100 WBC (Bld) 57.9 % Normal [facility] Comment on above: Performed By: #### 8 2477-1, CBCA, CMP, 1987-08, , 277- 1, UPCR, 273-8, 46958-0 ####[facility] ([id number])[address], [address], [place] [address] Platelet mean volume (Bld) [Entitic vol] 8.1 fL Normal 7-12 [facility] Comment on above: Performed By: #### 8 2477-1, CBCA, CMP, 1987-08, , 277- 1, UPCR, 273-8, 26078-9 ####[facility] ([id number])[address], [address], [place] [address] Platelets (Bld) [#/Vol] 287 10*3/uL Normal 150-450 [facility] Comment on above: Performed By: #### 8 2477-1, CBCA, CMP, 1987-08, , 2776- 1, UPCR, 273-8, 13743-0 ####[facility] ([id number])[address], [address], [place] [address] RBC COUNT 3.89 X10E12/L Normal 3.80-5.20 [facility] Comment on above: Performed By: #### 8 2477-1, CBCA, CMP, 1987-08, , , UPCR, 273-8, 89562-3 ####[facility] ([id number])[address], [address], [place] [address] WBC (Bld) [#/Vol] 5.1 10*3/uL Normal 4.0-11.0 [facility] Comment on above: Performed By: #### 8 2477-1, CBCA, CMP, 1987-08, , 277- 1, UPCR, 273-8, 33802-9 ####[facility] ([id number])[address], [address] [address] COMPREHENSIVE METABOLIC PANE Gerardo 07-08-2024 Albumin [Mass/Vol] 3.9 g/dL Normal 3.2-5.3 [facility] Comment on above: Performed By: #### 8 2477-1, CBCA, CMP, 1987-08, 87582-2, 2777- 1, UPCR, 2731-8, 02367-6 ####[facility] ([id number])[address], [address], [place] [address] ALP [Catalytic activity/Vol] 67 U/L Normal 39-130 [facility] Comment on above: Performed By: #### 8 2477-1, CBCA, CMP, 1987-08, , 2777- 1, UPCR, 2731-8, 66757-8 ####[facility] ([id number])[address], [address], [place] [address] ALT [Catalytic activity/Vol] 10 U/L Normal 0-31 [facility] Comment on above: Performed By: #### 8 2477-1, CBCA, CMP, 1987-08, , 277- 1, UPCR, 2731-8, 44133-6 ####[facility] ([id number])[address], [address], [place] [address] Anion gap [Moles/Vol] 10 mmol/L Normal 5-15 [facility] Comment on above: Performed By: #### 8 2477-1, CBCA, CMP, 1987-08, , 2777- 1, UPCR, 2731-8, 14857-3 ####[facility] ([id number])[address], [address] [address] AST [Catalytic activity/Vol] 15 U/L Normal 0-41 [facility] Comment on above: Performed By: #### 8 2477-1, CBCA, CMP, 1987-08, , , UPCR, 273-8, 35338-4 ####[facility] ([id number])[address], [address], [place] [address] Bilirubin [Mass/Vol] 0.3 mg/dL Normal 0.3-1.2 [facility] Comment on above: Performed By: #### 8 2477-1, CBCA, CMP, 1987-08, , , UPCR, 273-8, 70812-6 ####[facility] ([id number])[address], [address] [address] Calcium [Mass/Vol] 8.2 mg/dL Low 8.5-10.5 [facility] Comment on above: Performed By: #### 8 2477-1, CBCA, CMP, 1987-08, , , UPCR, 2730-8, 05911-0 ####[facility] ([id number])[address] [address] [address] Chloride [Moles/Vol] 103 mmol/L Normal 98-109 [facility] Comment on above: Performed By: #### 8 2477-1, CBCA, CMP, 1987-08, , , UPCR, 8, 02003-9 ####[facility] ([id number])[address], [address] [address] CO2 [Moles/Vol] 27 mmol/L Normal 22-32 [facility] Comment on above: Performed By: #### 8 2477-1, CBCA, CMP, 1987-08, , , UPCR, 2738, 52062-9 ####[facility] ([id number])[address], [address] [place] [address] Creatinine [Mass/Vol] 1.67 mg/dL High 0.40-1.00 [facility] Comment on above: Result Comment: METH OD TRACEABLE TO IDMS STANDARD Performed By: #### 8 2477-1, CBCA, CMP, 1987-08, , 2776-04, UPCR, 273-8, 84724-6 ####[facility] ([id number])[address], [address], [place] [address] GFR/1.73 sq M.predicted among non-blacks MDRD (S/P/Bld) [Vol rate/Area] 41 mL/min/{1.73_m2} Low >59 [facility] Comment on above: Result Comment: Repo rted eGFR is based on theCKD-EPI 2020 equation that doesnot use a race coefficient. Performed By: #### 8 2477-1, CBCA, CMP, 1987-08, , 2776-04, UPCR, 8, 54889-5 ####[facility] ([id number])[address], [address], [place] [address] Glucose [Mass/Vol] 77 mg/dL Normal 65-99 [facility] Comment on above: Performed By: #### 8 2477-1, CBCA, CMP, 1987-08, , , UPCR, 8, 36929-0 ####[facility] ([id number])[address], [address], [place] [address] Potassium [Moles/Vol] 3.8 mmol/L Normal 3.5-5.0 [facility] Comment on above: Performed By: #### 8 2477-1, CBCA, CMP, 1987-08, , , UPCR, 2738, 82319-0 ####[facility] ([id number])[address], [address] [address] Protein [Mass/Vol] 6.3 g/dL Normal 6.0-8.0 [facility] Comment on above: Performed By: #### 8 2477-1, CBCA, CMP, 1987-08, , 277- , UPCR, 2731-8, 42822-0 ####[facility] ([id number])[address], [address] [address] Sodium [Moles/Vol] 140 mmol/L Normal 134-146 [facility] Comment on above: Performed By: #### 8 2477-1, CBCA, CMP, 1987-08, , 277- 1, UPCR, 2731-8, 49738-3 ####[facility] ([id number])[address], [address], [place] [address] Urea nitrogen [Mass/Vol] 31 mg/dL High 5-23 [facility] Comment on above: Performed By: #### 8 2477-1, CBCA, CMP, 1987-08, , , UPCR, 2731-8, 81992-4 ####[facility] ([id number])[address], [address] [address] CRP [Mass/Vol]on 07-08-2024 C REACTIVE PROTEIN 0.5 mg/dL Normal 0.000-0.744 [facility] Comment on above: Performed By: #### 8 2477-1, CBCA, CMP, 1987-08, , 27710-28, UPCR, 2731-8, 31588-7 ####[facility] ([id number])[address], [address] [place] [address] ESR Photometric method (Bld) [Velocity]on 07-08-2024 ESR, ERYTHROCYTE SEDIMENTATION RATE 3 mm/h Normal 0-20 [facility] Comment on above: Performed By: #### 8 2477-1, CBCA, CMP, 1987-08, , 27710-28, UPCR, 2731-8, 41914-3 ####[facility] ([id number])[address], [address], [place] [address] MAGNESIUMon 07-08-2024 Magnesium [Mass/Vol] 1.7 mg/dL Low 1.8-2.6 [facility] Comment on above: Performed By: #### 8 2477-1, CBCA, CMP, 1987-08, , , UPCR, 273-8, 69611-9 ####[facility] ([id number])[address], [address] [place] [address] PHOSPHORUSon 07-08-2024 Phosphate [Mass/Vol] 4.5 mg/dL Normal 2.4-4.9 [facility] Comment on above: Performed By: #### 8 2477-1, CBCA, CMP, 1987-08, , , UPCR, 273-8, 33401-9 ####[facility] ([id number])[address], [address] [place] [address] PROTEIN CREAT RATIOon 2024 RANDOM URINE PROTEIN 100 mg/L Normal <120 [facility] Comment on above: Performed By: #### 8 2477-1, CBCA, CMP, 1987-08, , , UPCR, 273-8, 14710-6 ####[facility] ([id number])[address], [address] [place] [address] U/PRO/DISABILITY MANAGER RATIO CALC 0.08 Normal <0.2 [facility] Comment on above: Result Comment: Neph rotic Syndrome is associated with ratios >3.5 Performed By: #### 8 2477-1, CBCA, CMP, 1987-08, , 2776-04, UPCR, 2731-8, 08328-4 ####[facility] ([id number])[address], [address], [place] [address] URINE CREATININE,RDM 119.60 mg/dL Normal [facility] Comment on above: Performed By: #### 8 2477-1, CBCA, CMP, 1987-08, , , UPCR, 2738, 38170-4 ####[facility] ([id number])[address], [address] [address] Parathyrin.intact [Mass/Vol] on 07-08-2024 PTH INTACT 120 pg/mL High 12-88 [facility] Comment on above: Performed By: #### 8 2477-1, CBCA, CMP, 1987-08, , , UPCR, 273-, 13806-3 ####[facility] ([id number])[address], [address] [address] URINALYSISon 07-08-2024 Bilirubin Ql (U) Negative Normal NEG [facility] Comment on above: Performed By: #### U A ####[facility] ([id number])[address], [address], [place] [address] BLOOD/HGB Small Abnormal NEG [facility] Comment on above: Performed By: #### U A ####[facility] ([id number])[address], [address] [address] Color (U) YELLOW Normal YELLOW [facility] Comment on above: Performed By: #### U A ####[facility] ([id number])[address], [address] [address] Glucose Ql (U) Negative Normal NEG [facility] Comment on above: Performed By: #### U A ####[facility] ([id number])[address], [address] [address] Hyaline casts LM Ql (Urine sed) 2 /lpf Normal 0-2 [facility] Comment on above: Performed By: #### U A ####[facility] ([id number])[address], [address], [place] [address] Ketones Ql (U) Negative Normal NEG [facility] Comment on above: Performed By: #### U A ####[facility] ([id number])[address], [address], [place] [address] Leukocyte esterase Test strip Ql (U) Large Abnormal NEG [facility] Comment on above: Performed By: #### U A ####[facility] ([id number])[address], [address], [place] [address] MUCOUS PRESENT Abnormal NONE [facility] Comment on above: Performed By: #### U A ####[facility] ([id number])[address], [address] [place] [address] Nitrite Ql (U) Negative Normal NEG [facility] Comment on above: Performed By: #### U A ####[facility] ([id number])[address], [address] [place] [address] pH (U) 5.5 [pH] Normal 5.0-8.5 [facility] Comment on above: Performed By: #### U A ####[facility] ([id number])[address], [address] [place] [address]99 Protein Ql (U) Trace Abnormal NEG [facility] Comment on above: Performed By: #### U A ####[facility] ([id number])[address], [address] [place] [address] R.B.CELLS 9 /hpf High 0-5 [facility] Comment on above: Performed By: #### U A ####[facility] ([id number])[address], [address] [place] [address] Specific gravity (U) [Rel density] 1.017 Normal 1.003-1.035 [facility] Comment on above: Performed By: #### U A ####[facility] ([id number])[address], [address], [place] [address] SQUAMOUS EPITHELIUM 27 /hpf High 0-5 [facility] Comment on above: Performed By: #### U A ####[facility] ([id number])[address], [address], [place] [address] TURBIDITY HAZY Abnormal CLEAR [facility] Comment on above: Performed By: #### U A ####[facility] ([id number])[address] [address], [place] [address] Urobilinogen (U) [Mass/Vol] mg/dL Normal <1.1 [facility] Comment on above: Performed By: #### U A ####[facility] ([id number])[address], [address], [place] [address] W.B.CELLS 37 /hpf High 0-5 [facility] Comment on above: Performed By: #### U A ####[facility] ([id number])[address], [address] [address] Vitamin D+Metabolites [Mass/ Vol]on 07-08-2024 VITAMIN D 25 HYD TOT 34.3 ng/mL Normal 30-100 [facility] Comment on above: Result Comment: Amber min D status 25 [place] Vitamin D Deficiency <20 ng/mLInsufficiency 20-29 ng/mLSufficiency 30-100 ng/mLToxicity >100 ng/mLNOTE: A pediatric reference range has not beenestablished by the regional sales consultant of this kit.The [place] [employer] recommendsa Vitamin D level of = or >20ng/mL in infantsand children. Performed By: #### 8 2477-1, CBCA, CMP, 1987-, , 2776-04, UPCR, 2731-8, 75042-4 ####[facility] ([id number])[address] [facility], [place] [address] CBC AND AUTO DIFFon 07-03-19 25 ABSOLUTE BASOPHIL 0.0 X10E9/L Normal 0.0-0.2 [facility] Comment on above: Performed By: #### C BCA, CMP, , 2776-04 ####[facility] ([id number])[address] [place] [address] ABSOLUTE NEUTROPHIL 1.5 X10E9/L Normal 1.5-6.6 [facility] Comment on above: Performed By: #### C BCA, CMP, , 2776-04 ####[facility] ([id number])[address] [place] [address] Basophils/100 WBC (Bld) 0.7 % Normal [facility] Comment on above: Performed By: #### C BCA, CMP, , 2776-04 ####[facility] ([id number])[address] [place] [address] Eosinophils (Bld) [#/Vol] 0.0 10*3/uL Normal 0.0-0.4 [facility] Comment on above: Performed By: #### C BCA, CMP, , 2776-04 ####[facility] ([id number])[address] [place] [address] 63147 Eosinophils/100 WBC (Bld) 0.6 % Normal [facility] Comment on above: Performed By: #### C BCA, CMP, , 2776-04 ####[facility] ([id number])[address] [place] [address], [place] [address] Erythrocyte distribution width (RBC) [Ratio] 14.2 % Normal 11.5-15.0 [facility] Comment on above: Performed By: #### Nataliia ARGUELLES CMP, , 2776-04 ####[facility] ([id number])[address] [place] [address] Hematocrit (Bld) [Volume fraction] 29.6 % Low 35-47 [facility] Comment on above: Performed By: #### C KINDRA CMP, , 2776-04 ####[facility] ([id number])[address] [place] [address] Hemoglobin (Bld) [Mass/Vol] 10.6 g/dL Low 11.7-15.5 [facility] Comment on above: Performed By: #### Nataliia [facility]GUELLES [facility], , 2776-04 ####[facility] ([id number])[address] [place] [address]81 Lymphocytes (Bld) [#/Vol] 1.3 10*3/uL Normal 1.0-3.5 [facility] Comment on above: Performed By: #### Nataliia ARGUELLES, CMP, , 2776-04 ####[facility] ([id number])[address] [place] [address]40 Lymphocytes/100 WBC (Bld) 39.6 % Normal [facility] Comment on above: Performed By: #### Nataliia ARGUELLES, CMP, , 2776-04 ####[facility] ([id number])[address] [place] [address] 97814 MCH (RBC) [Entitic mass] 32.2 pg Normal 27-34 [facility] Comment on above: Performed By: #### Nataliia ARGUELLES, CMP, , 2776-04 ####[facility] ([id number])[address] [place] [address] 39431 MCHC (RBC) [Mass/Vol] 35.7 g/dL Normal 32-36 [facility] Comment on above: Performed By: #### Nataliia ARGUELLES CMP, , 2776-04 ####[facility] ([id number])[address] [place] [address] 91828 MCV (RBC) [Entitic vol] 90 fL Normal 80-100 [facility] Comment on above: Performed By: #### Nataliia ARGUELLES CMP, , 2776-04 ####[facility] ([id number])[address] [place] [address] 42731 Monocytes (Bld) [#/Vol] 0.4 10*3/uL Normal 0-0.9 [facility] Comment on above: Performed By: #### Nataliia ARGUELLES CMP, , 2776-04 ####[facility] ([id number])[address] [place] [address] 84944 Monocytes/100 WBC (Bld) 12.7 % Normal [facility] Comment on above: Performed By: #### Nataliia ARGUELLES, CMP, , 2776-04 ####[facility] ([id number])[address] [place] [address] 81103 Neutrophils/100 WBC (Bld) 46.4 % Normal [facility] Comment on above: Performed By: #### Nataliia ARGUELLES, CMP, , 2776-04 ####[facility] ([id number])[address] [place] [address] 53191 Platelet mean volume (Bld) [Entitic vol] 8.2 fL Normal 7-12 [facility] Comment on above: Performed By: #### Nataliia ARGUELLES CMP, , 2776-04 ####[facility] ([id number])[address] [place] [address] 81807 Platelets (Bld) [#/Vol] 190 10*3/uL Normal 150-450 [facility] Comment on above: Performed By: #### C BCA, CMP, , 2776-04 ####[facility] ([id number])[address] [place] [address] 65681 RBC COUNT 3.29 X10E12/L Low 3.80-5.20 [facility] Comment on above: Performed By: #### C BCA, CMP, , 2776-04 ####[facility] ([id number])[address] [place] [address] 13565 WBC (Bld) [#/Vol] 3.3 10*3/uL Low 4.0-11.0 [facility] Comment on above: Performed By: #### Nataliia BCA, CMP, , 2776-04 ####[facility] ([id number])[address] [place] [address] 31124 COMPREHENSIVE METABOLIC PANE Gerardo 07-02-2024 Albumin [Mass/Vol] 3.1 g/dL Low 3.2-5.3 [facility] Comment on above: Performed By: #### C BCA, CMP, , 2776-04 ####[facility] ([id number])[address] [place] [address] 64942 ALP [Catalytic activity/Vol] 61 U/L Normal 39-130 [facility] Comment on above: Performed By: #### C BCA, CMP, , 2776-04 ####[facility] ([id number])[address] [place] [address] 60379 ALT [Catalytic activity/Vol] 17 U/L Normal 0-31 [facility] Comment on above: Performed By: #### Nataliia BCA, CMP, , 2776-04 ####[facility] ([id number])[address] [place] [address] [place] [address] Anion gap [Moles/Vol] 8 mmol/L Normal 5-15 [facility] Comment on above: Performed By: #### C BCA, CMP, , 2776-04 ####[facility] ([id number])[address] [place] [address] 22822 AST [Catalytic activity/Vol] 17 U/L Normal 0-41 [facility] Comment on above: Performed By: #### C BCA, CMP, , 2776-04 ####[facility] ([id number])[address] [place] [address] 42703 Bilirubin [Mass/Vol] 0.3 mg/dL Normal 0.3-1.2 [facility] Comment on above: Performed By: #### C BCA, CMP, , 2776-04 ####[facility] ([id number])[address] [place] [address] 80583 Calcium [Mass/Vol] 7.5 mg/dL Low 8.5-10.5 [facility] Comment on above: Performed By: #### C BCA, CMP, , 2776-04 ####[facility] ([id number])[address] [place] [address] [place] [address] Chloride [Moles/Vol] 106 mmol/L Normal 98-109 [facility] Comment on above: Performed By: #### C BCA, CMP, , 2776-04 ####[facility] ([id number])[address] [place] [address] 23285 CO2 [Moles/Vol] 22 mmol/L Normal 22-32 [facility] Comment on above: Performed By: #### C BCA, CMP, , 2776-04 ####[facility] ([id number])[address] [place] [address] 93819 Creatinine [Mass/Vol] 1.48 mg/dL High 0.40-1.00 [facility] Comment on above: Result Comment: METH OD TRACEABLE TO IDMS STANDARD Performed By: #### C CORINA ARGUELLES, , 2776-04 ####[facility] ([id number])[address] [place] [address] 43124 GFR/1.73 sq M.predicted among non-blacks MDRD (S/P/Bld) [Vol rate/Area] 48 mL/min/{1.73_m2} Low >59 [facility] Comment on above: Result Comment: Repo rted eGFR is based on theCKD-EPI 2020 equation that doesnot use a race coefficient. Performed By: #### C CORINA ARGUELLES, , 2776-04 ####[facility] ([id number])[address] [place] [address] 18232 Glucose [Mass/Vol] 87 mg/dL Normal 65-99 [facility] Comment on above: Performed By: #### C CORINA ARGUELLES, , 2776-04 ####[facility] ([id number])[address] [place] [address] 80674 Potassium [Moles/Vol] 4.1 mmol/L Normal 3.5-5.0 [facility] Comment on above: Performed By: #### C CORINA ARGUELLES, , 2776-04 ####[facility] ([id number])[address] [place] [address] 06761 Protein [Mass/Vol] 5.5 g/dL Low 6.0-8.0 [facility] Comment on above: Performed By: #### C CORINA ARGUELLES, , 2776-04 ####[facility] ([id number])[address] [place] [address] 48399 Sodium [Moles/Vol] 136 mmol/L Normal 134-146 [facility] Comment on above: Performed By: #### C CORINA ARGUELLES, , 1 ####[facility] ([id number])[address] [place] [address] 07939 Urea nitrogen [Mass/Vol] 24 mg/dL High 5-23 [facility] Comment on above: Performed By: #### C KINDRA CMP, , 2776-04 ####[facility] ([id number])[address] [place] [address] 21647 MAGNESIUMon 07-02-2024 Magnesium [Mass/Vol] 2.1 mg/dL Normal 1.8-2.6 [facility] Comment on above: Performed By: #### C CORINA ARGUELLES, , 2776-04 ####[facility] ([id number])[address] [place] [address] 45016 PHOSPHORUSon 07-02-2024 Phosphate [Mass/Vol] 3.2 mg/dL Normal 2.4-4.9 [facility] Comment on above: Performed By: #### Nataliia ARGUELLES CMP, , 1 ####[facility] ([id number])[address] [place] [address] 31074 CBC AND AUTO DIFFon 07-02-19 25 ABSOLUTE BASOPHIL 0.0 X10E9/L Normal 0.0-0.2 [facility] Comment on above: Performed By: #### Nataliia ARGUELLES CMP, ####[facility] ([id number])[address] [place] [address] 72436 ABSOLUTE NEUTROPHIL 1.5 X10E9/L Normal 1.5-6.6 [facility] Comment on above: Performed By: #### Nataliia ARGUELLES CMP, ####[facility] ([id number])[address] [place] [address] 31440 Basophils/100 WBC (Bld) 0.4 % Normal [facility] Comment on above: Performed By: #### Nataliia ARGUELLES CMP, ####[facility] ([id number])[address] [place] [address] 73549 Eosinophils (Bld) [#/Vol] 0.0 10*3/uL Normal 0.0-0.4 [facility] Comment on above: Performed By: #### Nataliia ARGUELLES CMP, ####[facility] ([id number])[address] [place] [address] 91467 Eosinophils/100 WBC (Bld) 0.5 % Normal [facility] Comment on above: Performed By: #### Nataliia ARGUELLES CMP, ####[facility] ([id number])[address] [place] [address] 25441 Erythrocyte distribution width (RBC) [Ratio] 13.9 % Normal 11.5-15.0 [facility] Comment on above: Performed By: #### Nataliia [facility]UELLES [facility], ####[facility] ([id number])[address] [place] [address] 79781 Hematocrit (Bld) [Volume fraction] 33.9 % Low 35-47 [facility] Comment on above: Performed By: #### Nataliia ARGUELLES CMP, ####[facility] ([id number])[address] [place] [address] 32635 Hemoglobin (Bld) [Mass/Vol] 12.0 g/dL Normal 11.7-15.5 [facility] Comment on above: Performed By: #### Nataliia ARGUELLES CMP, ####[facility] ([id number])[address] [place] [address] 06759 Lymphocytes (Bld) [#/Vol] 1.1 10*3/uL Normal 1.0-3.5 [facility] Comment on above: Performed By: #### C CORINA ARGUELLES, ####[facility] ([id number])[address] [place] [address] 10522 Lymphocytes/100 WBC (Bld) 35.3 % Normal [facility] Comment on above: Performed By: #### Nataliia ARGUELLES CMP, ####[facility] ([id number])[address] [place] [address] 77620 MCH (RBC) [Entitic mass] 31.4 pg Normal 27-34 [facility] Comment on above: Performed By: #### Nataliia ARGUELLES CMP, ####[facility] ([id number])[address] [place] [address] 70955 MCHC (RBC) [Mass/Vol] 35.3 g/dL Normal 32-36 [facility] Comment on above: Performed By: #### Nataliia ARGUELLES CMP, ####[facility] ([id number])[address] [place] [address] 68487 MCV (RBC) [Entitic vol] 89 fL Normal 80-100 [facility] Comment on above: Performed By: #### Nataliia ARGUELLES CMP, ####[facility] ([id number])[address] [place] [address] 95952 Monocytes (Bld) [#/Vol] 0.5 10*3/uL Normal 0-0.9 [facility] Comment on above: Performed By: #### Nataliia ARGUELLES CMP, ####[facility] ([id number])[address] [place] [address] 54404 Monocytes/100 WBC (Bld) 15.1 % Normal [facility] Comment on above: Performed By: #### Nataliia ARGUELLES CMP, ####[facility] ([id number])[address] [place] [address] 13241 Neutrophils/100 WBC (Bld) 48.7 % Normal [facility] Comment on above: Performed By: #### C KINDRA, CMP, ####[facility] ([id number])[address] [place] [address] 43778 Platelet mean volume (Bld) [Entitic vol] 7.7 fL Normal 7-12 [facility] Comment on above: Performed By: #### C KINDRA, CMP, ####[facility] ([id number])[address] [place] [address] 13212 Platelets (Bld) [#/Vol] 205 10*3/uL Normal 150-450 [facility] Comment on above: Performed By: #### Nataliia ARGUELLES, CMP, ####[facility] ([id number])[address] [place] [address] 55283 RBC COUNT 3.80 X10E12/L Normal 3.80-5.20 [facility] Comment on above: Performed By: #### Nataliia ARGUELLES, CMP, ####[facility] ([id number])[address] [place] [address] 69949 WBC (Bld) [#/Vol] 3.0 10*3/uL Low 4.0-11.0 [facility] Comment on above: Performed By: #### Nataliia ARGUELLES, CMP, ####[facility] ([id number])[address] [place] [address] 91122 COMPREHENSIVE METABOLIC PANE Gerardo 07-01-2024 Albumin [Mass/Vol] 3.6 g/dL Normal 3.2-5.3 [facility] Comment on above: Performed By: #### Nataliia ARGUELLES, CMP, ####[facility] ([id number])[address] [place] [address], [place] [address] ALP [Catalytic activity/Vol] 73 U/L Normal 39-130 [facility] Comment on above: Performed By: #### C BCA, CMP, 36221-4 ####[facility] ([id number])[address] [place] [address], [place] [address] ALT [Catalytic activity/Vol] 20 U/L Normal 0-31 [facility] Comment on above: Performed By: #### C BCA, CMP, ####[facility] ([id number])[address] [place] [address] 00883 Anion gap [Moles/Vol] 7 mmol/L Normal 5-15 [facility] Comment on above: Performed By: #### C KINDRA, CMP, ####[facility] ([id number])[address] [place] [address] [place] [address] AST [Catalytic activity/Vol] 24 U/L Normal 0-41 [facility] Comment on above: Performed By: #### C BCA, CMP, ####[facility] ([id number])[address] [place] [address] [place] [address] Bilirubin [Mass/Vol] 0.8 mg/dL Normal 0.3-1.2 [facility] Comment on above: Performed By: #### C BCA, CMP, ####[facility] ([id number])[address] [place] [address] [place] [address] Calcium [Mass/Vol] 8.2 mg/dL Low 8.5-10.5 [facility] Comment on above: Performed By: #### C BCA, CMP, ####[facility] ([id number])[address] [place] [address] [place] [address] Chloride [Moles/Vol] 104 mmol/L Normal 98-109 [facility] Comment on above: Performed By: #### C CORINA ARGUELLES, 22740-5 ####[facility] ([id number])[address] [place] [address] 60613 CO2 [Moles/Vol] 26 mmol/L Normal 22-32 [facility] Comment on above: Performed By: #### C CORINA ARGUELLES, ####[facility] ([id number])[address] [place] [address] 61343 Creatinine [Mass/Vol] 2.52 mg/dL High 0.40-1.00 [facility] Comment on above: Result Comment: METH OD TRACEABLE TO IDMS STANDARD Performed By: #### C CORINA ARGUELLES, ####[facility] ([id number])[address] [place] [address] 23756 GFR/1.73 sq M.predicted among non-blacks MDRD (S/P/Bld) [Vol rate/Area] 25 mL/min/{1.73_m2} Low >59 [facility] Comment on above: Result Comment: Repo rted eGFR is based on theCKD-EPI 2020 equation that doesnot use a race coefficient. Performed By: #### C CORINA ARGUELLES, ####[facility] ([id number])[address] [place] [address] 98743 Glucose [Mass/Vol] 89 mg/dL Normal 65-99 [facility] Comment on above: Performed By: #### C CORINA ARGUELLES, 40821-2 ####[facility] ([id number])[address] [place] [address] 63521 Potassium [Moles/Vol] 3.6 mmol/L Normal 3.5-5.0 [facility] Comment on above: Performed By: #### C CORINA ARGUELLES, ####[facility] ([id number])[address] [place] [address] 58181 Protein [Mass/Vol] 6.4 g/dL Normal 6.0-8.0 [facility] Comment on above: Performed By: #### C BCA, CMP, 00181-5 ####[facility] ([id number])[address] [place] [address] 28271 Sodium [Moles/Vol] 137 mmol/L Normal 134-146 [facility] Comment on above: Performed By: #### C BCA, CMP, 24208-4 ####[facility] ([id number])[address] [place] [address] 56215 Urea nitrogen [Mass/Vol] 29 mg/dL High 5-23 [facility] Comment on above: Performed By: #### C KINDRA, CMP, 80468-2 ####[facility] ([id number])[address] [place] [address] 01885 Complement C3 [Mass/Vol]on 0 07-01-2024 COMPLEMENT C3 130 mg/dL Normal 86-184 [facility] Comment on above: Performed By: #### 4 485-9, 4498-2, 54614-0 ####[facility] ([id number])[address], [address] [place] [address] 05116 Complement C4 [Mass/Vol]on 0 07-01-2024 COMPLEMENT C4 35 mg/dL Normal 16-47 [facility] Comment on above: Performed By: #### 4 485-9, 4498-2, 42097-9 ####[facility] ([id number])[address] [facility], [address] [place] [address] 25056 Creatinine (U) [Mass/Vol]on 07-01-2024 URINE CREATININE,RDM 175.75 mg/dL Normal [facility] Comment on above: Performed By: #### 2 161-8 ####[facility] ([id number])[address] [place] [address]#### 2955-3 ####[facility] ([id number])[address] [place] [address], [address] [place] [address] 08602 MAGNESIUMon 07-01-2024 Magnesium [Mass/Vol] 2.0 mg/dL Normal 1.8-2.6 [facility] Comment on above: Performed By: #### C BCA, CMP, 07076-6 ####[facility] ([id number])[address] [place] [address] 46645 Nuclear Ab IA Ql (S)on 07-01 SANDER Screen w/reflex Negative Normal NEG [facility] Comment on above: Result Comment: Test ing performed using multiplex flowimmunoassay. Eleven different antigensassociated with systemic autoimmunediseases (dsDNA,Sm,Sm/PHOTOGRAPHER APPRENTICE LITHOGRAPHIC,PHOTOGRAPHER APPRENTICE LITHOGRAPHIC,Chromatin,SSA,SSB,Noemi-1,Scl70,Ribo P,Centromere B)are included in this screening test. Performed By: #### 4 485-9, 4498-2, 82333-5 ####[facility] ([id number])[address] [place] [address], [address] [place] [address] 63178 Protein (U) [Mass/Vol]on RANDOM URINE PROTEIN 120 mg/L High <120 [facility] Comment on above: Performed By: #### 2 888-6 ####[facility] ([id number])[address] [place] [address] 57936 URINALYSISon 07-01-2024 Bilirubin Ql (U) Negative Normal NEG [facility] Comment on above: Performed By: #### U A ####[facility] ([id number])[address] [place] [address] 12366 BLOOD/HGB SMALL Abnormal NEG [facility] Comment on above: Performed By: #### U A ####[facility] ([id number])[address] [place] [address] 83528 Color (U) YELLOW Normal YELLOW [facility] Comment on above: Performed By: #### U A ####[facility] ([id number])[address] [place] [address] [place] [address] Glucose Ql (U) Negative Normal NEG [facility] Comment on above: Performed By: #### U A ####[facility] ([id number])[address] [place] [address] [place] [address] Ketones Ql (U) Negative Normal NEG [facility] Comment on above: Performed By: #### U A ####[facility] ([id number])[address] [place] [address] 36743 Leukocyte esterase Test strip Ql (U) Trace Abnormal NEG [facility] Comment on above: Performed By: #### U A ####[facility] ([id number])[address] [place] [address] [place] [address] MUCOUS PRESENT Abnormal NONE [facility] Comment on above: Performed By: #### U A ####[facility] ([id number])[address] [place] [address] [place] [address] Nitrite Ql (U) Negative Normal NEG [facility] Comment on above: Performed By: #### U A ####[facility] ([id number])[address] [place] [address] [place] [address] pH (U) 6.0 [pH] Normal 5.0-8.5 [facility] Comment on above: Performed By: #### U A ####[facility] ([id number])[address] [place] [address] [place] [address] Protein Ql (U) Trace Abnormal NEG [facility] Comment on above: Performed By: #### U A ####[facility] ([id number])[address] [place] [address] [place] [address] R.B.CELLS 7 /hpf High 0-5 [facility] Comment on above: Performed By: #### U A ####[facility] ([id number])[address] [place] [address] 05090 Specific gravity (U) [Rel density] 1.020 Normal 1.003-1.035 [facility] Comment on above: Performed By: #### U A ####[facility] ([id number])[address] [place] [address] 67796 SQUAMOUS EPITHELIUM 1 /hpf Normal 0-5 [facility] Comment on above: Performed By: #### U A ####[facility] ([id number])[address] [place] [address] 27178 TURBIDITY CLEAR Normal CLEAR [facility] Comment on above: Performed By: #### U A ####[facility] ([id number])[address] [place] [address] 02786 Urobilinogen Qn (U) 0.2 {Beatriz'U}/dL Normal <1.1 [facility] Comment on above: Performed By: #### U A ####[facility] ([id number])[address] [place] [address] 91775 W.B.CELLS 3 /hpf Normal 0-5 [facility] Comment on above: Performed By: #### U A ####[facility] ([id number])[address] [place] [address] 47647 URINE SODIUM,RANDOMon 2024 Sodium (U) [Moles/Vol] 11 mmol/L Normal [facility] Comment on above: Performed By: #### 2 161-8 ####[facility] ([id number])[address] [place] [address] [place] [address]#### 2955-3 ####[facility] ([id number])[address] [facility], [address], [place] [address] BASIC METABOLIC PANLon 06-30 Anion gap [Moles/Vol] 6 mmol/L Normal 5-15 [facility] Comment on above: Performed By: #### C BCA, BMP ####[facility] ([id number])[address] [place] [address] 16400 Calcium [Mass/Vol] 7.9 mg/dL Low 8.5-10.5 [facility] Comment on above: Performed By: #### C BCA, BMP ####[facility] ([id number])[address] [place] [address] 72287 Chloride [Moles/Vol] 100 mmol/L Normal 98-109 [facility] Comment on above: Performed By: #### C BCA, BMP ####[facility] ([id number])[address] [place] [address] 70136 CO2 [Moles/Vol] 24 mmol/L Normal 22-32 [facility] Comment on above: Performed By: #### C BCA, BMP ####[facility] ([id number])[address] [place] [address] 71732 Creatinine [Mass/Vol] 2.71 mg/dL High 0.40-1.00 [facility] Comment on above: Result Comment: METH OD TRACEABLE TO IDMS STANDARD Performed By: #### C BCA, BMP ####[facility] ([id number])[address] [place] [address] 90192 GFR/1.73 sq M.predicted among non-blacks MDRD (S/P/Bld) [Vol rate/Area] 23 mL/min/{1.73_m2} Low >59 [facility] Comment on above: Result Comment: Repo rted eGFR is based on theCKD-EPI 2020 equation that doesnot use a race coefficient. Performed By: #### C BCA, BMP ####[facility] ([id number])[address] [place] [address] [place] [address] Glucose [Mass/Vol] 84 mg/dL Normal 65-99 [facility] Comment on above: Performed By: #### C KINDRA, BMP ####[facility] ([id number])[address] [place] [address] 00961 Potassium [Moles/Vol] 3.9 mmol/L Normal 3.5-5.0 [facility] Comment on above: Performed By: #### C KINDRA, BMP ####[facility] ([id number])[address] [place] [address] 90873 Sodium [Moles/Vol] 130 mmol/L Low 134-146 [facility] Comment on above: Performed By: #### C KINDRA, BMP ####[facility] ([id number])[address] [place] [address] [place] [address] Urea nitrogen [Mass/Vol] 28 mg/dL High 5-23 [facility] Comment on above: Performed By: #### C KINDRA, BMP ####[facility] ([id number])[address] [place] [address] [place] [address] CBC AND AUTO DIFFon 03-20 25 ABSOLUTE BASOPHIL 0.0 X10E9/L Normal 0.0-0.2 [facility] Comment on above: Performed By: #### C KINDRA, BMP ####[facility] ([id number])[address] [place] [address] [place] [address] ABSOLUTE NEUTROPHIL 2.3 X10E9/L Normal 1.5-6.6 [facility] Comment on above: Performed By: #### C KINDRA, BMP ####[facility] ([id number])[address] [place] [address] 22751 Basophils/100 WBC (Bld) 0.2 % Normal [facility] Comment on above: Performed By: #### C KINDRA, BMP ####[facility] ([id number])[address] [place] [address] 02258 Eosinophils (Bld) [#/Vol] 0.0 10*3/uL Normal 0.0-0.4 [facility] Comment on above: Performed By: #### C KINDRA, BMP ####[facility] ([id number])[address] [place] [address] 97874 Eosinophils/100 WBC (Bld) 0.1 % Normal [facility] Comment on above: Performed By: #### C KINDRA, BMP ####[facility] ([id number])[address] [place] [address] 60658 Erythrocyte distribution width (RBC) [Ratio] 14.2 % Normal 11.5-15.0 [facility] Comment on above: Performed By: #### C KINDRA, BMP ####[facility] ([id number])[address] [place] [address] 21308 Hematocrit (Bld) [Volume fraction] 34.7 % Low 35-47 [facility] Comment on above: Performed By: #### C KINDRA, BMP ####[facility] ([id number])[address] [place] [address] 20905 Hemoglobin (Bld) [Mass/Vol] 12.1 g/dL Normal 11.7-15.5 [facility] Comment on above: Performed By: #### C KINDRA, BMP ####[facility] ([id number])[address] [place] [address] 17364 Lymphocytes (Bld) [#/Vol] 0.9 10*3/uL Low 1.0-3.5 [facility] Comment on above: Performed By: #### C KINDRA, BMP ####[facility] ([id number])[address] [place] [address] 55255 Lymphocytes/100 WBC (Bld) 23.3 % Normal [facility] Comment on above: Performed By: #### C KINDRA, BMP ####[facility] ([id number])[address] [place] [address] 99338 MCH (RBC) [Entitic mass] 31.0 pg Normal 27-34 [facility] Comment on above: Performed By: #### C KINDRA, BMP ####[facility] ([id number])[address] [place] [address] 34530 MCHC (RBC) [Mass/Vol] 34.8 g/dL Normal 32-36 [facility] Comment on above: Performed By: #### C KINDRA, BMP ####[facility] ([id number])[address] [place] [address] 15335 MCV (RBC) [Entitic vol] 89 fL Normal 80-100 [facility] Comment on above: Performed By: #### C KINDRA, BMP ####[facility] ([id number])[address] [place] [address] 78304 Monocytes (Bld) [#/Vol] 0.5 10*3/uL Normal 0-0.9 [facility] Comment on above: Performed By: #### C KINDRA, BMP ####[facility] ([id number])[address] [place] [address] 52167 Monocytes/100 WBC (Bld) 13.7 % Normal [facility] Comment on above: Performed By: #### C BCA, BMP ####[facility] ([id number])[address] [place] [address] 28749 Neutrophils/100 WBC (Bld) 62.7 % Normal [facility] Comment on above: Performed By: #### C KINDRA, BMP ####[facility] ([id number])[address] [place] [address] 86111 Platelet mean volume (Bld) [Entitic vol] 7.8 fL Normal 7-12 [facility] Comment on above: Performed By: #### C KINDRA, BMP ####[facility] ([id number])[address] [place] [address] 34036 Platelets (Bld) [#/Vol] 209 10*3/uL Normal 150-450 [facility] Comment on above: Performed By: #### C KINDRA, BMP ####[facility] ([id number])[address] [place] [address] 49475 RBC COUNT 3.90 X10E12/L Normal 3.80-5.20 [facility] Comment on above: Performed By: #### C KINDRA, BMP ####[facility] ([id number])[address] [place] [address] 83332 WBC (Bld) [#/Vol] 3.7 10*3/uL Low 4.0-11.0 [facility] Comment on above: Performed By: #### C KINDRA, BMP ####[facility] ([id number])[address] [place] [address] 51753 URINE CULTUREon 06-30-2024 Bacteria identified Cx Nom (U) CULTURE RESULTS <10,000 ORGANISMS/ML NORMAL URO GENITAL MATEUS Normal [facility] Comment on above: Performed By: #### 6 30-4 ####[facility] ([id number])[address] [facility], [address] [address] URN MACROSCOPIC NURon 2024 BILIRUBIN BRENDEN Negative Normal NEG [facility] Comment on above: Performed By: #### N UM ####[facility] ([id number])[address] [place] [address] 25884 BLOOD/HGB BRENDEN MODERATE Abnormal NEG [facility] Comment on above: Performed By: #### N UM ####[facility] ([id number])[address] [place] [address], [place] [address] GLUCOSE BRENDEN Negative Normal NEG [facility] Comment on above: Performed By: #### N UM ####[facility] ([id number])[address] [place] [address], [place] [address] KETONES BRENDEN Negative Normal NEG [facility] Comment on above: Performed By: #### N UM ####[facility] ([id number])[address] [place] [address], [place] [address] LEUKOCYTE ESTERASE BRENDEN MODERATE Abnormal NEG [facility] Comment on above: Performed By: #### N UM ####[facility] ([id number])[address] [place] [address], [place] [address] NITRITE BRENDEN Negative Normal NEG [facility] Comment on above: Performed By: #### N UM ####[facility] ([id number])[address] [place] [address], [place] [address] PH BRENDEN 5.5 Normal 5.0-8.5 [facility] Comment on above: Performed By: #### N UM ####[facility] ([id number])[address] [place] [address], [place] [address] PROTEIN BRENDEN Negative Normal NEG [facility] Comment on above: Performed By: #### N UM ####[facility] ([id number])[address] [place] [address], [place] [address] SPECIFIC GRAVITY BRENDEN <=1.005 Normal 1.003-1.035 [facility] Comment on above: Performed By: #### N UM ####[facility] ([id number])[address] [place] [address], [place] [address] UROBILINOGEN BRENDEN 0.2 eu/dL Normal <1.1 [facility] Comment on above: Performed By: #### N UM ####[facility] ([id number])[address] [place] [address] SARS/FLU A+B/RSV by NAAT/Mol ecularon 06-28-2024 SARS/FLU A+B/RSV by NAAT/Molecular Normal [facility] Comment on above: Performed By: #### C OVFLR ####[facility] ([id number])[address] [place] [address] Gastroenterology Office/Clin ic Noteon 06-25-2024 Gastroenterology Office/Clinic Note Gastroenterology Office/Clinic Note Chief Complaint nausea and vomiting HPI Staff Est- Patient is a(n) 33 year old female who presents today for a sick call with c/o nausea and vomiting. Nausea with vomiting When did this start: March Constant? Intermittent? constant worse in the morning/afternoon, sometimes certain smells. just randomly will happen. Taking Xarelto and aspirin 81mg Denies GLP-1 agonists. Last visit w/Dr. Huynh: Assessment/Plan 1. Alternating constipation and diarrhea (R19.8: [...] Take FDgard OTC Consider EGD if persist EGD 03/10/22: Impression and Plan Mild gastric erosions in the antrum and gastric body, random biopsies obtained to rule out H. pylori Pathology: Final Diagnosis (Verified) STOMACH, BIOPSY: ??? GASTRIC MUCOSA WITH MODERATE CHRONIC ACTIVE GASTRITIS, EROSION AND HYPERPLASTIC REGENERATIVE CHANGES. ??? NO INTESTINAL METAPLASIA IDENTIFIED. ??? NO DEFINITIVE H. PYLORI MICROORGANISMS IDENTIFIED WITH IMMUNOSTAIN. Labs 06/16/24 WBC: 5.5 RBC: 3.58 Low Hemoglobin: 11.0 Low Hematocrit: 32.3 Low MCV: 90.2 MCH: 30.7 MCHC: 34.1 Red Cell Distribution Width: 13.0 Platelet: 253 MPV: 9.7 Neutrophils %: 65.2 Lymphocytes %: 23.4 Monocytes %: 9.7 Eosinophils %: 1.1 Basophils %: 0.4 Immature Granulocytes %: 0.2 Neutrophils Abs: 3.6 Lymphocytes Abs: 1.3 Monocytes Abs: 0.5 Eosinophils Abs: 0.1 Basophils Abs: 0.0 Immature Granulocytes Abs: 0.01 Sodium: 141 Potassium: 3.4 Low Chloride: 106 Carbon Dioxide: 28.8 Anion Gap: 9.6 Glucose: 108 High Blood Urea Nitrogen: 13.0 Creatinine: 1.53 High Estimated GFR ( Neelam: 48 Low Estimated GFR (Non- Yelena: 39 Low BUN Creatinine Ratio: 8.5 Calcium: 7.7 Low History of Present Illness Reviewed HPI collected by staff Review of Systems All systems reviewed, negative; Except for above Physical Exam Vitals & Measurements HR: 100(Peripheral) RR: 14 BP: 133/99 HT: 69 in HT: 174 cm WT: 124 kg WT: 273.373 lb BMI: 40.96 General: in Nad Abdomen: Soft, NTND Assessment/Plan 1. Nausea with vomiting (R11.2: Nausea with vomiting, unspecified) Started in March Vomits mostly bile or clear Happens a couple times a day She tried to change her medication timing to see if that helped, no relief Using more marijuana then she did previously EGD 03/21 showed mild gastric erosions in the antrum and gastric body, negative biopsy Likely cannabis hyperemesis Recommended she decrease marijuana use Take a hot shower when nausea hits Use hot pads on abdomen Zofran prescribed Can consider GES if no relief 2. Lupus (M32.9: Systemic lupus erythematosus, unspecified) Taking Lupkynis Ashtyn, Maranda Angulo, personally scribed for Saw Huynh on 06/25/2024 10:13:35. . Documentation recorded by Shira Angulo, accurately reflects the services I performed and decisions made by me. 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 Normal [facility] Comment on above: Result Comment: Elec tronically Signed By: Lino XIONG, Saw Delarosa\.br\Date and Time Signed: 06/25/24 10:38 EST\.br\Electronically Co-Signed By: Maranda Angulo MA\.br\Date and Time Co-Signed: 06/25/24 10:26 EST ECG 12-LEADon 06-17-2024 [place] [address] Electrocardiograph Report Signed Patient: BLANCA RUDOLPH MR#: [id number] : 1990 Acct:[id number] Age/Sex: 33 / F ADM Date: 06/16/24 Loc: PST Attending Dr: Mayco Albright D.O. Ordering Physician: Mayco Albright D.O. 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 Signed By: 06/17/24 0650 DD/ 1057 TD/TT: [employer]als[employer]: [facility] Radiology, Radiologist, MD - 06/17/2024 [place] [address] Electrocardiograph Report Signed Patient: BLANCA RUDOLPH MR#: [id number] : 1990 Acct:[id number] Age/Sex: 33 / F ADM Date: 06/16/24 Loc: PST Attending Dr: Mayco Albright D.O. Ordering Physician: Mayoc Albright D.O. 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 Signed By: 06/17/24 0650 DD/ 1057 TD/TT: [employer]: [facility] ECG 12-LEADOrdered By: Radio logist Radiology on 06-17-2024 [facility] Work Phone: ALL CBC WITH AUTO DIFFon BASOPHILS ABSOLUTE AUTO 0 [facility] Basophils/100 WBC (Bld) 0.4 % 0.2 - 2.0 % [facility] Eosinophils/100 WBC (Bld) 1.1 % 0.9 - 7.0 % [facility] Erythrocyte distribution width (RBC) [Ratio] 13 % 11.0 - 15.0 % [facility] Hematocrit (Bld) [Volume fraction] 32.3 % Low 36.0 - 48.0 % [facility] Hemoglobin (Bld) [Mass/Vol] 11 g/dL Low 12.0 - 16.0 g/dL [facility] IMMATURE GRANULOCYTES ABS AUTO 0.01 [facility] Immature granulocytes/100 WBC (Bld) 0.2 % 0.0 - 0.5 % [facility] Interpretation and review of laboratory results Abnormal [facility] LYMPHOCYTES ABSOLUTE AUTO 1.3 [facility] Lymphocytes/100 WBC (Bld) 23.4 % 20.5 - 60.0 % [facility] MCH (RBC) [Entitic mass] 30.7 pg 26.7 - 34.0 pg [facility] MCHC (RBC) [Mass/Vol] 34.1 g/dL 29.9 - 35.2 g/dL [facility] MCV (RBC) [Entitic vol] 90.2 fL 81.0 - 99.0 fL [facility] MONOCYTES ABSOLUTE AUTO 0.5 [facility] Monocytes/100 WBC (Bld) 9.7 % 1.7 - 12.0 % [facility] NEUTROPHILS ABSOLUTE AUTO 3.6 [facility] Neutrophils/100 WBC (Bld) 65.2 % 43.0 - 75.0 % [facility] Platelet mean volume (Bld) [Entitic vol] 9.7 fL 9.5 - 13.5 fL [facility] TBH EO # 0.1 [facility] PLT 253 [facility] RBC 3.58 Low [facility] WBC 5.5 [facility] APTTon 06-16-2024 aPTT Coag (Bld) [Time] 35.6 s [facility] ECG 12-LEADon 06-16-2024 Radiology Study observation (narrative) [facility] No Panel Informationon 06-16 [facility] SRMCOH PROTHROMBIN TIME INR W/O COUMon 06-16-2024 Interpretation and review of laboratory results Abnormal [facility] re PT Coag (PPP) [Time] 13.3 s High [facility] TB INR 1.29 [facility] Comment on above: DESIRED INR: 2.0-3.0 CONDITIONS NOT LISTED BELOW 2.5-3.5 FOR PROSTHETIC HEART VALVE REPLACEMENT 2.5-3.5 RECURRENT THROMBOSIS XR CHEST 2Von 06-16-2024 [place] [address] XRay Report Signed Patient: BLANCA RUDOLPH MR#: [id number] : 1990 Acct:[id number] Age/Sex: 33 / F ADM Date: 06/16/24 Loc: [facility] Attending Dr: Mayco Albright D.O. Ordering Physician: Mayco Albright D.O. Date of Service: 06/16/24 Procedure(s): XR chest 2V Accession Number(s): [id number] cc: Mayco Albright D.O.; Physician,Non-Staff [employer] [address] [address] Patient Name: BLANCA RUODLPH MRN: [facility]:[id number] date: 1990 Sex: F Assigned Patient Location: [facility] Current Patient Location: [facility] Accession/Order Number: [id number] Exam Date: 06/16/2024 11:10 Report Date: 06/16/2024 17:50 At the request of: MAYCO ALBRIGHT Procedure: XR chest 2V EXAM: XR chest 2V HISTORY: Preop exam COMPARISON: 05/07/2023. FINDINGS: Frontal and lateral views of the chest were obtained. The cardiomediastinal silhouette is within normal limits. The lungs are clear without focal airspace consolidation. No pneumothorax or pleural effusion. Visualized portions of the upper abdomen are unremarkable. No acute osseous abnormality. XR/XR chest 2V IMPRESSION: No acute cardiopulmonary abnormality. Electronically authenticated by: SARAH BOO Date: 06/16/2024 17:50 Dictated By: Sarah Boo M.D. Signed By: 06/16/241752 DD/ 49 TD/TT: Aircraft Metalsmith: [facility] Radiology, Radiologist, MD - 06/17/2024 [place] [address] XRay Report Signed Patient: BLANCA RUDOLPH MR#: [id number] : 1990 Acct:[id number] Age/Sex: 33 / F ADM Date: 06/16/24 Loc: [facility] Attending Dr: Mayco Albright D.O. Ordering Physician: Mayco Albright D.O. Date of Service: 06/16/24 Procedure(s): XR chest 2V Accession Number(s): [id number] cc: Mayco Albright D.O.; Physician,Non-Staff [facility] [place] [address] Patient Name: BLANCA RUDOLPH MRN: [facility]:[id number] date: 1990 Sex: F Assigned Patient Location: [facility] Current Patient Location: [facility] Accession/Order Number: [id number] Exam Date: 06/16/2024 11:10 Report Date: 06/16/2024 17:50 At the request of: MAYCO ALBRIGHT Procedure: XR chest 2V EXAM: XR chest 2V HISTORY: Preop exam COMPARISON: 05/07/2023. FINDINGS: Frontal and lateral views of the chest were obtained. The cardiomediastinal silhouette is within normal limits. The lungs are clear without focal airspace consolidation. No pneumothorax or pleural effusion. Visualized portions of the upper abdomen are unremarkable. No acute osseous abnormality. XR/XR chest 2V IMPRESSION: No acute cardiopulmonary abnormality. Electronically authenticated by: SARAH BOO Date: 06/16/2024 17:50 Dictated By: Sarah Boo M.D. Signed By: 06/16/241752 DD/ 49 TD/TT: [employer]: [facility] [employer] Radiology Study observation (narrative) [facility] [employer] XR CHEST 2VOrdered By: Radio logist Radiology on 06-16-2024 [employer] Work Phone: IGP,APTIMA HPV,AGE GDLNon AGE GDLN ACOG TESTING Note . [facility] [employer] Comment on above: TESTS RESULT FLAG UN ITS REF RANGE LAB Clinician Provided Cytology Information Source.............Cervix;Endocervix No. of containers..01 ThinPrep Vial Age Algo ACOG Josh... 30-65 01 FLAG LEGEND: L-Low Normal,H-High Normal,LL-Alert Low,HH-Alert High <-Panic Low,>-Panic High,A-Abnormal,AA-Critical Abnormal Performed at: 01 =G [address] [address] Regi Han MD, HPV APTIMA Positive Abnormal Negative [employer] Comment on above: This nucleic acid am plification test detects fourteen high- risk HPV types (16,18,31,33,35,39,45,51,52,56,58,59,66,68) without differentiation. HPV GENOTYPE 16 Negative Negative [facility] HPV GENOTYPE 18,45 Negative Negative [facility] Comment on above: Performed at: =G - L [facility] [address] [facility] [id number] Acute Care Occupational Therapist: Regi Han MD, Phone: [phone] Performed at: [facility] [address] [place], [place] [address] Acute Care Occupational Therapist: Josh Doyle MD, Phone: [phone] IGP, APTIMA HPV, RFX 16/18,45 Note . [facility] Comment on above: TESTS RESULT FLAG UN ITS REF RANGE LAB DIAGNOSIS: 02 NEGATIVE FOR INTRAEPITHELIAL LESION OR MALIGNANCY. Specimen adequacy: 02 Satisfactory for evaluation. Endocervical and/or squamous metaplastic cells (endocervical component) are present. Performed by: 02 Edi Hsu, [employer] ([facility]) . 02 Note: Note 03 The Pap smear is a screening test designed to aid in the detection of premalignant and malignant conditions of the uterine cervix. It is not a diagnostic procedure and should not be used as the sole means of detecting cervical cancer. Both false-positive and false-negative reports do occur. Test Methodology: Note 03 This liquid based ThinPrep(R) pap test was screened with the use of an image guided system. HPV Genotype Reflex Note 02 Criteria met, see HPV Genotype results. FLAG LEGEND: L-Low Normal,H-High Normal,LL-Alert Low,HH-Alert High <-Panic Low,>-Panic High,A-Abnormal,AA-Critical Abnormal Performed at: 02 [facility] [address] [address] [place] [address] Josh Doyle MD, 03 WB [facility] [address] [address] Regi Han MD, Interpretation and review of laboratory results Abnormal [facility] BRUSH-SPATULA CERVIX ENDOCERVIX [facility] Ambulatory Visit Summaryon 0 - Ambulatory Visit Summary Ambulatory Visit Summary BLANCA RUDOLPH :1990 Visit Date:05/19/2024 Ambulatory Visit Instructions Your Diagnosis Frequent UTI Your Care Team Attending Physician - CYNTHIA GALLARDO PA-C Primary Care Physician - CHELI JENNINGS This Is Your Medications List trimethoprim [...] mg oral tablet) potassium chloride (Potassium Chloride (Jzt-Swxy-Hjm M20) 20 mEq oral tablet, extended release) [...] Schedule the Following Appointments Follow Up with PAULINA JOY, VALENTE JONES When: In 1 year Where: [address] [place] [address] Medications What How Much When Instructions New trimethoprim (trimethoprim 100 mg Tab) See instructions Refills: 3 1 tab po with sexual activity for UTI prevention. Pickup at [facility] [id number] Unchanged acetaminophen 325 Milligram Contact prescribing physician [...] or concerns Unchanged potassium chloride (Potassium Chloride (Bpj-Jicp-Jqu M20) 20 mEq oral tablet, extended release) Contact prescribing physician if (more content not included)... Normal [facility] Urology Office/Clinic Noteon 05-19-2024 Urology Office/Clinic Note [...] E&M of Est. Patient Moderate 30-39 Min 81783 Urnls Dip Stick Auto w/o Microscopy POC Orders: trimethoprim, See Instructions, 1 tab po with sexual activity for UTI prevention., # 15 tab(s), Refills(s) 3, Pharmacy: [facility] [id number], 174, cm, 05/19/24 10:34:00 EST, Height/Length Dosing, 124, kg, 05/19/24 10:34:00 EST, Weight Dosing Follow-up With When Contact Information CYNTHIA GALLARDO PA-C, URL In 1 year [address] 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 Normal [facility] Comment on above: Result Comment: Elec tronically Signed By: CYNTHIA GALLARDO PA-C\Date and Time Signed: 05/19/24 15:58 EST RAPID STREP SCR NURSINGon S. pyogenes Ag EIA Ql (Throat) Negative Normal NEG [facility] Comment on above: Performed By: #### 6 556-5 ####[facility] ([id number])[address] [place] [address] SARS/FLU A+B/RSV by NAAT/Mol ecularon 04-28-2024 SARS/FLU A+B/RSV by NAAT/Molecular Normal [facility] Comment on above: Performed By: #### C OVFLR ####[facility] ([id number])[address] [place] [address] 29on 04-09-2024 29 Addended by: ROBERTO CARLOS KENDRICK on: 04/09/2024 04:40 PM Modules accepted: Orders Normal [facility] CBC WITH AUTO DIFFERENTIALon 04-09-2024 Basophils (Bld) [#/Vol] 0.03 10*3/uL Normal 0.00-0.20 [facility] Comment on above: Performed By: #### L [id number] ####[facility] (BEAKER)[address] [place] [address] Basophils/100 WBC (Bld) 0.4 % Normal 0.0-1.0 [facility] Comment on above: Performed By: #### L [id number] ####[facility] ([facility])[address] [place] [address] Eosinophils (Bld) [#/Vol] 0.07 10*3/uL Normal 0.00-0.50 [facility] Comment on above: Performed By: #### L [id number] ####[facility] ([facility]ER)[address] [place] [address] Eosinophils/100 WBC (Bld) 1.0 % Normal 0.0-6.0 [facility] Comment on above: Performed By: #### L [id number] ####[facility] ([facility])[address] [place] [address] Erythrocyte distribution width (RBC) [Ratio] 12.9 % Normal 11.5-15.0 [facility] Comment on above: Performed By: #### L [id number] ####[facility] ([facility] [place] [address] ERYTHROCYTE MEAN CORPUSCULAR HEMOGLOBIN CONCENTRATION (G/DL) BY AUTOMATED 33.1 g/dL Normal 32.0-35.0 [facility] Comment on above: Performed By: #### L [id number] ####[facility] ([facility] [place] [address] Hematocrit (Bld) [Volume fraction] 35.9 % Low 36.0-48.0 [facility] Comment on above: Performed By: #### L [id number] ####[facility] ([facility] [place] [address] Hemoglobin (Bld) [Mass/Vol] 11.9 g/dL Low 12.0-15.0 [facility] Comment on above: Performed By: #### L [id number] ####[facility] ([facility])[address] [place] [address] Immature granulocytes (Bld) [#/Vol] 0.02 10*3/uL Normal 0.00-0.20 [facility] Comment on above: Performed By: #### L [id number] ####[facility] ([facility])[address] [place] [address] Immature granulocytes/100 WBC (Bld) 0.3 % Normal 0.0-1.0 [facility] Comment on above: Performed By: #### L [id number] ####[facility] ([facility])[address] [place] [address] Lymphocytes (Bld) [#/Vol] 0.83 10*3/uL Low 1.20-4.00 [facility] Comment on above: Performed By: #### L [id number] ####[facility] (BEAKER)[address] [place] [address] Lymphocytes/100 WBC (Bld) 12.3 % Low 20.0-45.0 [facility] Comment on above: Performed By: #### L [id number] ####[facility] ([facility])[address] [place] [address] MCH (RBC) [Entitic mass] 30.4 pg Normal 27.0-33.0 [facility] Comment on above: Performed By: #### L [id number] ####[facility] ([facility])[address] [place] [address] MCV (RBC) [Entitic vol] 91.6 fL Normal 82.0-98.0 [facility] Comment on above: Performed By: #### L [id number] ####[facility] ([facility] [place] [address] Monocytes (Bld) [#/Vol] 0.54 10*3/uL Normal 0.10-1.00 [facility] Comment on above: Performed By: #### L [id number] ####[facility] ([facility])[address] [place] [address] Monocytes/100 WBC (Bld) 8.0 % Normal 5.0-12.0 [facility] Comment on above: Performed By: #### L [id number] ####[facility] ([facility])[address] [place] [address] Neutrophils (Bld) [#/Vol] 5.26 10*3/uL Normal 1.60-7.60 [facility] Comment on above: Performed By: #### L [id number] ####[facility] ([facility])[address] [place] [address] Neutrophils/100 WBC (Bld) 78.0 % High 40.0-72.0 [facility] Comment on above: Performed By: #### L [id number] ####[facility] ([facility])[address] [place] [address] NRBC (PER 100 WBCS) BY AUTOMATED COUNT 0.0 % Normal 0 [facility] Comment on above: Performed By: #### L [id number] ####[facility] ([facility])[address] [place] [address] PLATELETS (10*3/UL) IN BLOOD AUTOMATED COUNT 316 10*3/uL Normal 150-400 [facility] Comment on above: Performed By: #### L [id number] ####[facility] ([facility])[address] [place] [address] RBC (Bld) [#/Vol] 3.92 10*6/uL Normal 3.80-5.00 [facility] Comment on above: Performed By: #### L [id number] ####[facility] ([facility])[address] [place] [address] WBC (Bld) [#/Vol] 6.75 10*3/uL Normal 4.00-10.60 [facility] Comment on above: Performed By: #### L [id number] ####[facility] ([facility])[address] [place] [address] CHLAMYDIA TRACHOMATIS AND NE ISSERIA GONORRHEA, TMAon 04-09-2024 CHLAMYDIA TRACHOMATIS DNA PROBE (PRESENCE) IN UNSP SPEC Negative Normal Negative [facility] Comment on above: Result Comment: No C hlamydia trachomatis rRNA Detected. The Aptima Combo 2 Assay is a FDA approved target amplification nucleic acid probe test that utilizes target capture for the in vitro qualitative detection and differentiation of ribosomal RNA (rRNA) from Chlamydia trachomatis (CT) and/or Neisseria gonorrhoeae (GC) to aid the diagnosis of chlamydial and/or gonococcal urogenital disease using the Sterling System. The Aptima Combo 2 Assay involves target capture, target amplification by Mucker Cofferdam-Mediated Amplification (TMA), and the detection of the amplification products (amplicon) by the Hybridization Protection Assay (HPA). The internal process controls of the Sterling System monitor the target capture, amplification, and detection steps of the assay, this is not intended to control for sampling adequacy. Performed By: #### L [id number] ####[facility] ([facility])[address] [place] [address] NEISSERIA GONORRHOEAE DNA PROBE (PRESENCE) IN UNSP SPEC Negative Normal Negative [facility] Comment on above: Result Comment: No N eisseria gonorrhoeae rRNA Detected. The Aptima Combo 2 Assay is a FDA approved target amplification nucleic acid probe test that utilizes target capture for the in vitro qualitative detection and differentiation of ribosomal RNA (rRNA) from Chlamydia trachomatis (CT) and/or Neisseria gonorrhoeae (GC) to aid the diagnosis of chlamydial and/or gonococcal urogenital disease using the Sterling System. The Aptima Combo 2 Assay involves target capture, target amplification by Mucker Cofferdam-Mediated Amplification (TMA), and the detection of the amplification products (amplicon) by the Hybridization Protection Assay (HPA). The internal process controls of the Sterling System monitor the target capture, amplification, and detection steps of the assay, this is not intended to control for sampling adequacy. Performed By: #### L [id number] ####[facility] ([facility])[address] [place] [address] HIV COMBO 4Gon 04-09-2024 HIV COMBO 4G Negative Normal Negative [facility] Comment on above: Performed By: #### L [id number] ####[facility] ([facility])[address] [place] [address] Office Visiton 04-09-2024 Follow-up visit [id number] Blanca Rudolph 1990 F Date Provider Department Center 04/09/2024 ORIN VERNON [facility] Family History Problem Relation Age of Onset Hypertension Mother Hypertension Mother's Sister Crohn's disease Mother's Sister Hypertension Maternal Grandmother Breast cancer Maternal Grandmother Kidney disease Other Migraines Other Family Status - Relation Status Age at Mother Mother's Sister Maternal Grandmother Other Level of Service:80721 [place] OFFICE/OUTPATIENT ESTABLISHED MOD MDM 30 MIN Reason for Visit and Comments: Contact with and (suspected) exposure to human immunodefici [Other] - Currently taking ATB for UTI unsure of name Normal [facility] RPRon 04-09-2024 REAGIN AB PRESENCE IN SERUM BY RPR Reactive Abnormal Nonreactive [facility] Comment on above: Performed By: #### L [id number] ####[facility] (BEAKER)[address] [place] [address] RPR QUANTITATIVEon RPR QUANT 1:4 High <1:1 [facility] Comment on above: Order Comment: Previ ously reactive FTA, performed on 04/06/2023 Result Comment: The syphilis screen is a treponemal assay; patients with previously treated syphilis could be reactive on this assay, but nonreactive on the RPR Quant assay. Performed By: #### L [id number] #### [facility] ([facility]AK[facility]) [address] [place] [address] No Panel Informationon 04-05 STAPHYLOCOCCUS EPIDERMIDIS, HAEMOLYTICUS, LUGDUNENSIS, SAPROPHYTICUS (URINA 0 [facility] STAPHYLOCOCCUS EPIDERMIDIS, HAEMOLYTICUS, LUGDUNENSIS, SAPROPHYTICUS (URINA Not detected [facility] URINARY TRACT INFECTION (HTR X)on 04-05-2024 ACINETOBACTER BAUMANII 0 [facility] ACINETOBACTER BAUMANII Not detected [facility] LUIS ALBICANS, PARAPSILOSIS, TROPICALIS 0 [facility] LUIS ALBICANS, PARAPSILOSIS, TROPICALIS Not detected [facility] LUIS GLABRATA 0 [facility] LU[facility] GLABRATA Not detected [facility]althcare LUIS KRUSEI 0 [facility] hcare LUIS KRUSEI Not detected [facility] CITROBACTER FREUNDII 0 [facility] CITROBACTER FREUNDII Not detected [facility] ENTEROBACTER AEROGENES, CLOACAE 0 [facility] re ENTEROBACTER AEROGENES, CLOACAE Not detected [facility] re ENTEROCOCCUS FAECALIS, FAECIUM 0 [facility] e ENTEROCOCCUS FAECALIS, FAECIUM Not detected [facility] e ESCHERICHIA COLI 22.692 Abnormal [facility] ESCHERICHIA COLI Detected Abnormal [facility] Interpretation and review of laboratory results Abnormal [facility] re KLEBSIELLA PNEUMONIAE, OXYTOCA 0 [facility] are KLEBSIELLA PNEUMONIAE, OXYTOCA Not detected [facility] are MORGANELLA MORGANII 0 [facility] MORGANELLA MORGANII Not detected [facility] PROTEUS MIRABILIS, VULGARIS 0 [facility] PROTEUS MIRABILIS, VULGARIS Not detected [facility] PSEUDOMONAS AERUGINOSA 0 [facility] PSEUDOMONAS AERUGINOSA Not detected [facility] SERRATIA [...] 24 ABSOLUTE BASOPHIL 0.0 X10E9/L Normal 0.0-0.2 [facility] Comment on above: Performed By: #### Nataliia ARGUELLES 99181-2, [facility], 1987-08 ####[facility] ([id number])[address] [address] [place] [address] ABSOLUTE NEUTROPHIL 5.0 X10E9/L Normal 1.5-6.6 [facility] Comment on above: Performed By: #### Nataliia ARGUELLES 49739-1, [facility], 1987-08 ####[facility] ([id number])[address] [address] Basophils/100 WBC (Bld) 0.4 % Normal [facility] Comment on above: Performed By: #### Nataliia ARGUELLES 49608-6, [facility], 1987-08 ####[facility] ([id number])[address] [address] [place] [address] Eosinophils (Bld) [#/Vol] 0.0 10*3/uL Normal 0.0-0.4 [facility] Comment on above: Performed By: #### Nataliia ARGUELLES 11737-0, [facility], 1987-08 ####[facility] ([id number])[address] [address] [place] [address] Eosinophils/100 WBC (Bld) 0.3 % Normal [facility] Comment on above: Performed By: #### Nataliia ARGUELLES, 44081-1, [facility], 1987-08 ####[facility] ([id number])[address] [address], [place] [address] Erythrocyte distribution width (RBC) [Ratio] 13.4 % Normal 11.5-15.0 [facility] Comment on above: Performed By: #### Nataliia ARGUELLES, 85482-0, [facility], 1987-08 ####[facility] ([id number])[address] [address], [place] [address] Hematocrit (Bld) [Volume fraction] 35.3 % Normal 35-47 [facility] Comment on above: Performed By: #### Nataliia ARGUELLES, 24261-5, [facility], 1987-08 ####[facility] ([id number])[address], [place] [address] Hemoglobin (Bld) [Mass/Vol] 12.0 g/dL Normal 11.7-15.5 [facility] Comment on above: Performed By: #### Nataliia ARGUELLES, 83891-1, [facility], 1987-08 ####[facility] ([id number])[address] [address] Lymphocytes (Bld) [#/Vol] 0.9 10*3/uL Low 1.0-3.5 [facility] Comment on above: Performed By: #### Nataliia ARGUELLES, 79570-3, [facility], 1987-08 ####[facility] ([id number])[address], [place] [address] Lymphocytes/100 WBC (Bld) 13.6 % Normal [facility] Comment on above: Performed By: #### Nataliia ARGUELLES, 06923-3, [facility], 1987-08 ####[facility] ([id number])[address] [address], [place] [address] MCH (RBC) [Entitic mass] 31.2 pg Normal 27-34 [facility] Comment on above: Performed By: #### Nataliia ARGUELLES 42568-7, [facility], 1987-08 ####[facility] ([id number])[address], [place] [address] MCHC (RBC) [Mass/Vol] 33.9 g/dL Normal 32-36 [facility] Comment on above: Performed By: #### Nataliia ARGUELLES 42643-7, [facility], 1987-08 ####[facility] ([id number])[address], [address], [place] [address] MCV (RBC) [Entitic vol] 92 fL Normal 80-100 [facility] Comment on above: Performed By: #### Nataliia ARGUELLES 18848-6, [facility], 1987-08 ####[facility] ([id number])[address], [address], [place] [address] Monocytes (Bld) [#/Vol] 0.6 10*3/uL Normal 0-0.9 [facility] Comment on above: Performed By: #### Nataliia ARGUELLES 25363-9, [facility], 1987-08 ####[facility] ([id number])[address] [address], [place] [address] Monocytes/100 WBC (Bld) 8.5 % Normal [facility] Comment on above: Performed By: #### Nataliia ARGUELLES 04717-9, [facility], 1987-08 ####[facility] ([id number])[address] [address], [place] [address] Neutrophils/100 WBC (Bld) 77.2 % Normal [facility] Comment on above: Performed By: #### Nataliia ARGUELLES, 57067-4, [facility], 1987-08 ####[facility] ([id number])[address], [address], [place] [address] Platelet mean volume (Bld) [Entitic vol] 8.1 fL Normal 7-12 [facility] Comment on above: Performed By: #### Nataliia BCA, 87107-7, [facility], 1987-08 ####[facility] ([id number])[address] [address] [place] [address] Platelets (Bld) [#/Vol] 315 10*3/uL Normal 150-450 [facility] Comment on above: Performed By: #### Nataliia ARGUELLES, 58628-6, [facility], 1987-08 ####[facility] ([id number])[address] [address] RBC COUNT 3.84 X10E12/L Normal 3.80-5.20 [facility] Comment on above: Performed By: #### Nataliia ARGUELLES, 87590-2, CMP, 1987-08 ####[facility] ([id number])[address] [address] WBC (Bld) [#/Vol] 6.5 10*3/uL Normal 4.0-11.0 [facility] Comment on above: Performed By: #### Nataliia ARGUELLES, 98335-4, [facility], 1987-08 ####[facility] ([id number])[address] [address] COMPREHENSIVE METABOLIC PANE Gerardo 04-04-2024 Albumin [Mass/Vol] 4.0 g/dL Normal 3.2-5.3 [facility] Comment on above: Performed By: #### Nataliia BCA, 03239-6, [facility], 1987-08 ####[facility] ([id number])[address] [address] ALP [Catalytic activity/Vol] 82 U/L Normal 39-130 [facility] Comment on above: Performed By: #### Nataliia BCA, 89312-1, CMP, 1986-08 ####[facility] ([id number])[address], [place] [address] ALT [Catalytic activity/Vol] 10 U/L Normal 0-31 [facility] Comment on above: Performed By: #### C BCA, 74356-8, [facility], 1987-08 ####[facility] ([id number])[address], [address], [place] [address] Anion gap [Moles/Vol] 9 mmol/L Normal 5-15 [facility] Comment on above: Performed By: #### C BCA, 96883-7, [facility], 1987-08 ####[facility] ([id number])[address], [address], [place] [address] AST [Catalytic activity/Vol] 13 U/L Normal 0-41 [facility] Comment on above: Performed By: #### Nataliia BCA, 61789-8, [facility], 1987-08 ####[facility] ([id number])[address], [address], [place] [address] Bilirubin [Mass/Vol] 0.4 mg/dL Normal 0.3-1.2 [facility] Comment on above: Performed By: #### Nataliia BCA, 77654-0, [facility], 1987-08 ####[facility] ([id number])[address], [address] [address] Calcium [Mass/Vol] 8.3 mg/dL Low 8.5-10.5 [facility] Comment on above: Performed By: #### C BCA, 38502-0, [facility], 1987-08 ####[facility] ([id number])[address], [address], [place] [address] Chloride [Moles/Vol] 104 mmol/L Normal 98-109 [facility] Comment on above: Performed By: #### Nataliia BCA, 05358-2, [facility], 1987-08 ####[facility] ([id number])[address], [place] [address] CO2 [Moles/Vol] 28 mmol/L Normal 22-32 [facility] Comment on above: Performed By: #### Nataliia ARGUELLES 46308-2, [facility], 1987-08 ####[facility] ([id number])[address], [place] [address] Creatinine [Mass/Vol] 1.88 mg/dL High 0.40-1.00 [facility] Comment on above: Result Comment: METH OD TRACEABLE TO IDMS STANDARD Performed By: #### C KINDRA 99129-4, [facility], 1987-08 ####[facility] ([id number])[address] [address] GFR/1.73 sq M.predicted among non-blacks MDRD (S/P/Bld) [Vol rate/Area] 36 mL/min/{1.73_m2} Low >59 [facility] Comment on above: Result Comment: Repo rted eGFR is based on theCKD-EPI 2020 equation that doesnot use a race coefficient. Performed By: #### Nataliia ARGUELLES 38613-0, [facility], 1987-08 ####[facility] ([id number])[address] [address] Glucose [Mass/Vol] 96 mg/dL Normal 65-99 [facility] Comment on above: Performed By: #### Nataliia ARGUELLES 29592-3, [facility], 1987-08 ####[facility] ([id number])[address] [address] Potassium [Moles/Vol] 4.5 mmol/L Normal 3.5-5.0 [facility] Comment on above: Performed By: #### Nataliia ARGUELLES, 13604-6, [facility], 1987-08 ####[facility] ([id number])[address], [place] [address] Protein [Mass/Vol] 6.5 g/dL Normal 6.0-8.0 [facility] Comment on above: Performed By: #### C BCA, 23594-8, [facility], 1987-08 ####[facility] ([id number])[address], [address], [place] [address] Sodium [Moles/Vol] 141 mmol/L Normal 134-146 [facility] Comment on above: Performed By: #### C BCA, 29901-2, [facility], 1987-08 ####[facility] ([id number])[address] [address] [place] [address] Urea nitrogen [Mass/Vol] 19 mg/dL Normal 5-23 [facility] Comment on above: Performed By: #### C BCA, 77907-9, [facility], 1987-08 ####[facility] ([id number])[address] [address] [place] [address] CRP [Mass/Vol]on 04-04-2024 C REACTIVE PROTEIN 0.5 mg/dL Normal 0.000-0.744 [facility] Comment on above: Performed By: #### C BCA, 87952-9, [facility], 1987-08 ####[facility] ([id number])[address] [address] ESR Photometric method (Bld) [Velocity]on 04-04-2024 ESR, ERYTHROCYTE SEDIMENTATION RATE 8 mm/h Normal 0-20 [facility] Comment on above: Performed By: #### C BCA, 09343-9, [facility], 1987-08 ####[facility] ([id number])[address] [address] PROTEIN CREAT RATIOon 2023 RANDOM URINE PROTEIN 120 mg/L High <120 [facility] Comment on above: Performed By: #### U PCR ####[facility] ([id number])[address] [place] [address] U/PRO/DISABILITY MANAGER RATIO CALC 0.13 Normal <0.2 [facility] Comment on above: Result Comment: Neph rotic Syndrome is associated with ratios >3.5 Performed By: #### U PCR ####[facility] ([id number])[address], [place] [address] URINE CREATININE,RDM 94.02 mg/dL Normal [facility] Comment on above: Performed By: #### U PCR ####[facility] ([id number])[address], [place] [address] URINALYSISon 04-04-2024 Bilirubin Ql (U) Negative Normal NEG [facility] Comment on above: Performed By: #### U A ####[facility] ([id number])[address], [place] [address] BLOOD/HGB MODERATE Abnormal NEG [facility] Comment on above: Performed By: #### U A ####[facility] ([id number])[address] [address], [place] [address] Color (U) YELLOW Normal YELLOW [facility] Comment on above: Performed By: #### U A ####[facility] ([id number])[address] [address], [place] [address] Glucose Ql (U) Negative Normal NEG [facility] Comment on above: Performed By: #### U A ####[facility] ([id number])[address] [address] [place] [address] Ketones Ql (U) Negative Normal NEG [facility] Comment on above: Performed By: #### U A ####[facility] ([id number])[address] [address] Leukocyte esterase Test strip Ql (U) Large Abnormal NEG [facility] Comment on above: Performed By: #### U A ####[facility] ([id number])[address], [place] [address] MUCOUS PRESENT Abnormal NONE [facility] Comment on above: Performed By: #### U A ####[facility] ([id number])[address] [address], [place] [address] Nitrite Ql (U) Positive Abnormal NEG [facility] Comment on above: Performed By: #### U A ####[facility] ([id number])[address] [address] [place] [address] pH (U) 6.0 [pH] Normal 5.0-8.5 [facility] Comment on above: Performed By: #### U A ####[facility] ([id number])[address] [address] [place] [address] Protein Ql (U) Trace Abnormal NEG [facility] Comment on above: Performed By: #### U A ####[facility] ([id number])[address] [address] [place] [address] R.B.CELLS 18 /hpf High 0-5 [facility] Comment on above: Performed By: #### U A ####[facility] ([id number])[address] [address] [place] [address] Specific gravity (U) [Rel density] 1.013 Normal 1.003-1.035 [facility] Comment on above: Performed By: #### U A ####[facility] ([id number])[address] [address] [place] [address], [place] [address] SQUAMOUS EPITHELIUM 5 /hpf Normal 0-5 [facility] Comment on above: Performed By: #### U A ####[facility] ([id number])[address] [address] [place] [address] TURBIDITY HAZY Abnormal CLEAR [facility] Comment on above: Performed By: #### U A ####[facility] ([id number])[address], [address] [place] [address] Urobilinogen (U) [Mass/Vol] mg/dL Normal <1.1 [facility] Comment on above: Performed By: #### U A ####[facility] ([id number])[address], [address] [place] [address] W.B.CELLS >720 High 0-5 [facility] Comment on above: Performed By: #### U A ####[facility] ([id number])[address], [address] [place] [address] WBC CLUMPS RARE Abnormal NONE [facility] Comment on above: Performed By: #### U A ####[facility] ([id number])[address], [address] [place] [address] US PELVIC WITH TRANSVAGINALo n 04-04-2024 US PELVIC WITH TRANSVAGINAL Normal [facility] Urinalysis macro (dipstick) panel (U)on 04-02-2024 Bilirubin, UA Negative Negative - 4(70) +++ mg/dL [facility] Blood, UA Negative Negative - 50 Lucas/mcL [facility] Clarity, UA Clear [facility] Color, UA Yellow [facility] Glucose, UA Negative Negative - 1999(110) ++++ mg/dL [facility] Interpretation and review of laboratory results Abnormal [facility] Ketones, UA Negative Negative - 160(16) ++++ mg/dL [facility] Leukocytes, UA Negative Negative - 500+++ Julian/mcL [facility] Nitrite, UA Negative Negative - Positive [facility] pH, UA 6 5 - 9 [facility] Protein, UA Negative Negative - 1999(20) ++++ mg/dL [facility] Spec Grav, UA 1.02 1 - 1.03 [facility] Urobilinogen, UA 1.0 0.2 - 12 mg/dL [facility] 36on 02-11-2024 36 I communicated with patient regarding pruritic rash Upper arm, she feels it's an insect bite . No new lesions. I will place orders to r/o syphilis and she will call her PCP today to discuss concerns; she will update provider at clinic. Can you please fax labs (RPR) to [facility]? Thanks. [facility] 36 Pt called asking about rash on her upper body and arms x 1 week +itching. Recently admitted to the hospital for neck and pain issues was told there they were hives and to take benadryl, the patient does not have any. She has taken zyrtec but it has not helped. She also states it comes and goes. Please advise. [facility] Orders Onlyon 02-11-2024 Orders Only [id number] Blanca Rudolph 1990 F Date Provider Department Center 02/11/2024 [facility] INF [facility] Family History Problem Relation Age of Onset Hypertension Mother Hypertension Mother's Sister Crohn's disease Mother's Sister Hypertension Maternal Grandmother Breast cancer Maternal Grandmother Kidney disease Other Migraines Other Family Status - Relation Status Age at Mother Mother's Sister Maternal Grandmother Other Normal [facility] Reagin Ab RPR (S) [Titer]on 02-11-2024 RPR TITER, SERUM SEE COMMENTS 02/14/2024 10:22 AM Abnormal [facility] Comment on above: Result Comment: NOTE [...] the syphilis reverse algorithm and results, see: [email or web address] Test Performed by: [place] [address] Acute Care Occupational Therapist: Bulmaro Bull Ph.D.; CLIA# [id number] Performed By: #### 2 0507-0, 83744-4 ####[facility] ([id number])[address] [place] [address] Reagin Ab RPR Ql (S)on 02-10 RPR SCREEN RESPONSE TO THERAPY, SERUM Positive Abnormal Negative [facility] Comment on above: Result Comment: NOTE Specimen reflexed to determine RPR titer.For additional information on interpretation of thesyphilis reverse algorithm and results, see:[email or web address] Performed by:[place], [place] [address]Lab Director: Bulmaro Bull Ph.D.; CLIA# [id number] Performed By: #### 2 0507-0, 46976-8 ####[facility] ([id number])[address] [place] [address] APTTon 02-05-2024 aPTT Coag (PPP) [Time] 30 s [facility] Aquaporin 4 water channel Ig G Ql (CSF)on 02-05-2024 NMO/AQP4 FACS, CSF Negative Normal Negative [facility] Comment on above: Result Comment: NOTE Aquaporin-4 antibody testing is more sensitive in serum than in spinal fluid. Recommend serum testing now if not completed, and repeating in 6 months if clinical suspicion is high. Negative result can occur in the setting of immunosuppression. ADDITIONAL INFORMATION This test was developed and its performance characteristics determined by [facility] in a manner consistent with CLIA requirements. This test has not been cleared or approved by the U.S. Food and Drug Administration. Test Performed by: [place] [address] Acute Care Occupational Therapist: Bulmaro Bull Ph.D.; CLIA# [id number] CSF CULTUREon 02-05-2024 Bacteria identified Cx Nom (CSF) GRAM STAIN NO WHITE BLOOD CELLS PRESENT ON CONCENTRATED SMEAR NO ORGANISMS SEEN CULTURE RESULTS NO GROWTH 5 DAYS Normal [facility] Comment on above: Performed By: #### C JUNAID, 1986-08, CBCA, 4485-9, 4498-2, 50469-8 #### [facility] ([id number]) [address] [place] [address] CSF spinal fluid cell counto n 02-05-2024 Clarity (CSF) CLEAR [facility] Color (CSF) COLORLESS [facility] Color (Spun CSF) [facility]LESS [facility] Differential panel (Dial fld) NUCLEATED CELLS <5/uL; DIFF NOT TESTED [facility] Nucleated cells Manual cnt (CSF) [#/Vol] 0 10*3/uL 0 - 5 /uL [facility] RBC Manual cnt (CSF) [#/Vol] 1 /uL 0 - 1 /uL [facility] Csf total proteinon 02-05-20 Protein (CSF) [Mass/Vol] 20 mg/dL 15 - 45 mg/dL [facility] Glucose (CSF) [Mass/Vol]on 1 CSF GLUCOSE 53 mg/dL Normal 40-70 [facility] Comment on above: Performed By: #### C JUNAID, 1986-08, CBCA, 4485-9, 4498-2, 39739-4 #### [facility] ([id number]) [address] [place] [address] Glucose, CSFon 02-05-2024 Glucose (CSF) [Mass/Vol] 53 mg/dL 40 - 70 mg/dL [facility] Guidance for puncture of Lum bar spineon 02-05-2024 Ari oYungblood MD - 02/05/2024 Pre-procedure diagnosis: See history below Post-procedure diagnosis: Same as above Assistants/resident: See the technologist's notes above Consent/pre-procedure evaluation: See below. [place] protocol timeout verification performed. Estimated blood loss: [...] Alphonso Youngblood MD on 02/05/2024 10:27 AM [facility] Radiology Study observation (narrative) [facility] Guidance for puncture of Lum bar spineOrdered By: Ari Youngblood on 02-05-2024 [facility] Work Phone: MENINGITIS PANELon 4 Meningitis+Encephal itis pathogens DNA and RNA panel [...] NEOFORMANS Not detected (qualifier value) Normal NDET [facility] Comment on above: Performed By: #### C MP, 1987-5, CBCA, 4485-9, 4498-2, 52912-2 #### [facility] ([id number]) [address] [place] [address], [address] [place] [address] Meningitis+Encephalitis path ogens DNA and RNA panel JOAN+non-probe (CSF)on 02-05-2024 C. gattii+neoformans DNA JOAN+non-probe Ql (CSF) Not detected Not Detected^Not Detected [facility] CMV DNA JOAN+non-probe Ql (CSF) Not detected Not Detected^Not Detected [facility] E. coli K1 DNA JOAN+non-probe Ql (CSF) Not detected Not Detected^Not Detected [facility] Enterovirus RNA JOAN+non-probe Ql (CSF) Not detected Not Detected^Not Detected [facility] H. influenzae DNA JOAN+non-probe Ql (CSF) Not detected Not Detected^Not Detected [facility] HHV 6 DNA JOAN+non-probe Ql (CSF) Not detected Not Detected^Not Detected [facility] HSV 1 DNA JOAN+non-probe Ql (CSF) Not detected Not Detected^Not Detected [facility] HSV 2 DNA JOAN+non-probe Ql (CSF) Not detected Not Detected^Not Detected [facility] L. monocytogenes DNA JOAN+non-probe Ql (CSF) Not detected Not Detected^Not Detected [facility] N. meningitidis DNA JOAN+non-probe Ql (CSF) Not detected Not Detected^Not Detected [facility] Parechovirus A RNA JOAN+non-probe Ql (CSF) Not detected Not Detected^Not Detected [facility] S. agalactiae DNA JOAN+non-probe Ql (CSF) Not detected Not Detected^Not Detected [facility] S. pneumoniae DNA JOAN+non-probe Ql (CSF) Not detected Not Detected^Not Detected [facility] Specimen source Nom (Body fld) CEREBROSPINAL FLUID [facility] VZV DNA JOAN+non-probe Ql (CSF) Not detected Not Detected^Not Detected [facility] No Panel Informationon 02-04 [facility] OLIGOCLONAL BANDINGon 2023 CSF BANDS OLIG 0 bands Normal [facility] CSF OLIG BANDS INTERP 0 bands Normal <2 [facility] Comment on above: Result Comment: NOTE The oligoclonal band assay detected no unique IgG bands in the CSF. This is a negative result. Test Performed by: [facility] [address] [id number] Acute Care Occupational Therapist: Bulmaro Bull Ph.D.; CLIA# [id number] SERUM BANDS OLIG 0 bands Normal [facility] Protein (CSF) [Mass/Vol]on 1 CSF TOTAL PROTEIN 20 mg/dL Normal 15-45 [facility] Comment on above: Performed By: #### C JUNAID, 1986-08, CBCA, 4485-9, 4498-2, 04768-2 #### [facility] ([id number]) [address], [address] [place] [address] SPINAL FLUID CELL CTon 02-04 CSF CLARITY CLEAR Normal [facility] Comment on above: Performed By: #### C JUNAID, 1986-08, CBCA, 4485-9, 4498-2, 70949-5 #### [facility] ([id number]) [address], [address] [place] [address] CSF COLOR COLORLESS Normal [facility] Comment on above: Performed By: #### C JUNAID, 1986-08, CBCA, 4485-9, 4498-2, 61578-8 #### [facility] ([id number]) [address], [address] [place] [address] CSF NUCLEATED CELLS 0 /uL Normal 0-5 [facility] Comment on above: Performed By: #### C JUNAID, 1986-08, CBCA, 4485-9, 4498-2, 25158-9 #### [facility] ([id number]) [address], [address] [place] [address] CSF RBC 1 /uL Normal 0-1 [facility] Comment on above: Performed By: #### Nataliia QUIROGA, 1986-08, CBCA, 4485-9, 4498-2, 17552-7 #### [facility] ([id number]) [address], [address] [place] [address] CSF SUPERNATANT COLORLESS Normal [facility] Comment on above: Performed By: #### Nataliia QUIROGA, 1986-08, CBCA, 4485-9, 4498-2, 22332-5 #### [facility] ([id number]) [address], [address] [place] [address] SF DIFF NUCLEATED CELLS <5/uL; DIFF NOT TESTED Normal [facility] Comment on above: Performed By: #### Nataliia QUIROGA, 1986-08, CBCA, 4485-9, 4498-2, 65606-0 #### [facility] ([id number]) [address], [address] [place] [address] aPTT Coag (PPP) [Time]on [facility] aPTT Coag (Bld) [Time] 30 s Normal 26-37 [facility] Comment on above: Performed By: #### C JUNAID, 1986-08, CBCA, 4485-9, 4498-2, 29495-6 #### [facility] ([id number]) [address], [address] [place] [address] APTTon 02-04-2024 aPTT Coag (PPP) [Time] 61 s High [facility] Aquaporin 4 water channel Ig G Qlon 02-04-2024 NMO/AQP4 FACS, Serum Negative Normal Negative [facility] Comment on above: Result Comment: NOTE Recommend repeat testing in 6 months if clinical suspicion is high. Negative result can occur in the setting of immunosuppression. ADDITIONAL INFORMATION This test was developed and its performance characteristics determined by [facility] in a manner consistent with CLIA requirements. This test has not been cleared or approved by the U.S. Food and Drug Administration. Test Performed by: [facility] - [address] [address] Acute Care Occupational Therapist: Bulmaro Bull Ph.D.; CLIA# [id number] HEMOGLOBINon 02-04-2024 Hemoglobin (Bld) [Mass/Vol] 11.9 g/dL Normal 11.7-15.5 [facility] Comment on above: Performed By: #### C MP, 1986-, CBCA, 4485-9, 4498-2, 47016-7 #### [facility] ([id number]) [address] [place] [address] [address] [place] [address] Hemoglobinon 02-04-2024 Hemoglobin (Bld) [Mass/Vol] 11.9 g/dL 11.7 - 15.5 g/dL [facility] IgG synthesis rate Calc (S+C SF) [Mass/Time]on 02-04-2024 CSF IgG Index Profile SEE COMMENTS 02/07/2024 08:13 AM Abnormal [facility] Comment on above: Result Comment: NOTE [...] mg/dL 3500 - 5000 Test Performed by: [facility] [address] [place] [address] Acute Care Occupational Therapist: Bulmaro Bull Ph.D.; CLIA# [id number] Test Performed by: [place] [address] Acute Care Occupational Therapist: Bulmaro Bull Ph.D.; CLIA# [id number] MYELIN OLIGODENDROCYTE GLYCO PROTEIN (MOG-IgG1)on 02-04-2024 Myelin Oligodendrocyte Glycoprotein (MOG-IgG1) Negative Normal Negative [facility] Comment on above: Result Comment: NOTE No informative autoantibodies were detected in this evaluation. A negative result does not preclude a diagnosis of an inflammatory SIEVE MAKER demyelinating disorder. ADDITIONAL INFORMATION This test was developed and its performance characteristics determined by [facility] in a manner consistent with CLIA requirements. This test has not been cleared or approved by the U.S. Food and Drug Administration. Test Performed by: [facility] [place] [address] Acute Care Occupational Therapist: Bulmaro Bull Ph.D.; CLIA# [id number] No Panel Informationon 02-03 [facility] PLATELET COUNT AND MPVon Platelet mean volume (Bld) [Entitic vol] 7.1 fL Normal 7-12 [facility] Comment on above: Performed By: #### C JUNAID, 1986-08, CBCA, 4485-9, 4498-2, 66820-1 #### [facility] ([id number]) [address] [place] [address] Platelets (Bld) [#/Vol] 271 10*3/uL Normal 150-450 [facility] Comment on above: Performed By: #### C JUNAID, 1986-08, CBCA, 4485-9, 4498-2, 50664-0 #### [facility] ([id number]) [address], [address] [place] [address] Platelet counton 02-04-2024 Platelet mean volume (Bld) [Entitic vol] 7.1 fL 7 - 12 fL [facility] Platelets (Bld) [#/Vol] 271 10*3/uL [facility] aPTT Coag (PPP) [Time]on Interpretation and review of laboratory results Abnormal [facility] aPTT Coag (Bld) [Time] 61 s High 26-37 [facility] Comment on above: Performed By: #### C JUNAID, 1986-08, CBCA, 4485-9, 4498-2, 60829-5 #### [facility] ([id number]) [address], [address] [place] [address] APTTon 02-03-2024 aPTT Coag (PPP) [Time] 50 s High [facility] BASIC METABOLIC PANLon 02-02 Anion gap [Moles/Vol] 10 mmol/L Normal 5-15 [facility] Comment on above: Performed By: #### Nataliia QUIROGA, 1986-08, CBCA, 4485-9, 4498-2, 18555-5 #### [facility] ([id number]) [address], [address] [place] [address] Calcium [Mass/Vol] 7.7 mg/dL Low 8.5-10.5 [facility] Comment on above: Performed By: #### Nataliia QUIROGA, 1986-08, CBCA, 4485-9, 4498-2, 69911-8 #### [facility] ([id number]) [address], [address] [place] [address] Chloride [Moles/Vol] 103 mmol/L Normal 98-109 [facility] Comment on above: Performed By: #### Nataliia QUIROGA, 1986-08, CBCA, 4485-9, 4498-2, 45442-6 #### [facility] ([id number]) [address], [address] [place] [address] CO2 [Moles/Vol] 24 mmol/L Normal 22-32 [facility] Comment on above: Performed By: #### C JUNAID, 1986-08, CBCA, 4485-9, 4498-2, 63393-3 #### [facility] ([id number]) [address], [address] [place] [address] Creatinine [Mass/Vol] 1.30 mg/dL High 0.40-1.00 [facility] Comment on above: Result Comment: METH OD TRACEABLE TO IDMS STANDARD Performed By: #### C JUNAID, 1986-08, CBCAlice, 4485-9, 4498-2, 91500-9 #### [facility] ([id number]) [address] [place] [address] GFR/1.73 sq M.predicted among non-blacks MDRD (S/P/Bld) [Vol rate/Area] 56 mL/min/{1.73_m2} Low >59 [facility] Comment on above: Result Comment: Reported eGFR is based on the CKD-EPI 2020 equation that does not use a race coefficient. Performed By: #### C JUNAID, 1986-08, CBCA, 4485-9, 4498-2, 12066-8 #### [facility] ([id number]) [address] [place] [address] Glucose [Mass/Vol] 79 mg/dL Normal 65-99 [facility] Comment on above: Performed By: #### C JUNAID, 1986-08, CBCA, 4485-9, 4498-2, 98451-4 #### [facility] ([id number]) [address], [address] [place] [address] Potassium [Moles/Vol] 3.6 mmol/L Normal 3.5-5.0 [facility] Comment on above: Performed By: #### C JUNAID, 1986-08, CBCA, 4485-9, 4498-2, 35013-3 #### [facility] ([id number]) [address], [address] [place] [address] Sodium [Moles/Vol] 137 mmol/L Normal 134-146 [facility] Comment on above: Performed By: #### C JUNAID, 1986-08, CBCA, 4485-9, 4498-2, 33047-1 #### [facility] ([id number]) [address], [address] [place] [address] Urea nitrogen [Mass/Vol] 30 mg/dL High 5-23 [facility] Comment on above: Performed By: #### C JUNAID, 1986-08, CBCA, 4485-9, 4498-2, 17202-8 #### [facility] ([id number]) [address], [address] [place] [address] Basic Metabolic Panelon 10-0 Anion gap [Moles/Vol] 10 mmol/L 5 - 15 mmol/L [facility] Calcium [Mass/Vol] 7.7 mg/dL Low 8.5 - 10. 5 mg/dL [facility] Chloride [Moles/Vol] 103 mmol/L 98 - 109 mmol/L [facility] CO2 [Moles/Vol] 24 mmol/L 22 - 32 mmol/L [facility] Creatinine [Mass/Vol] 1.30 mg/dL High 0.40 - 1.00 mg/dL [facility] Comment on above: METHOD TRACEABLE TO IDMS STANDARD eGFR (CKD-EPI)non-race dependent 56 Low - PINF [facility] Comment on above: Reported eGFR is based on the CKD-EPI 2020 equation that does not use a race coefficient. Glucose [Mass/Vol] 79 mg/dL 65 - 99 mg/dL [facility] Interpretation and review of laboratory results Abnormal [facility] Potassium [Moles/Vol] 3.6 mmol/L 3.5 - 5.0 mmol/L [facility] Sodium [Moles/Vol] 137 mmol/L 134 - 146 mmol/L [facility] Urea nitrogen [Mass/Vol] 30 mg/dL High 5 - 23 mg/dL [facility] CBC AND AUTO DIFFon 02-03-20 24 ABSOLUTE BASOPHIL 0.1 X10E9/L Normal 0.0-0.2 [facility] Comment on above: Performed By: #### Nataliia QUIROGA, 1986-08, CBCA, 4485-9, 4498-2, 58954-0 #### [facility] ([id number]) [address], [address] [place] [address] ABSOLUTE NEUTROPHIL 4.0 X10E9/L Normal 1.5-6.6 [facility] Comment on above: Performed By: #### Nataliia QUIROGA, 1986-08, CBCA, 4484-9, 4498-2, 16690-3 #### [facility] ([id number]) [address], [address] [place] [address] Basophils/100 WBC (Bld) 1.5 % Normal [facility] Comment on above: Performed By: #### Nataliia QUIROGA, 1986-08, CBCA, 9, 4498-2, 40836-6 #### [facility] ([id number]) [address], [address] [place] [address] Eosinophils (Bld) [#/Vol] 0.0 10*3/uL Normal 0.0-0.4 [facility] Comment on above: Performed By: #### Nataliia QUIROGA, 1986-08, CBCA, 448-9, 4498-2, 17705-3 #### [facility] ([id number]) [address], [address] [place] [address] Eosinophils/100 WBC (Bld) 0.3 % Normal [facility] Comment on above: Performed By: #### Nataliia QUIROGA, 1986-08, CBCA, 448-9, 4498-2, 95716-8 #### [facility] ([id number]) [address], [address] [place] [address] Erythrocyte distribution width (RBC) [Ratio] 14.3 % Normal 11.5-15.0 [facility] Comment on above: Performed By: #### Nataliia QUIROGA, 1986-08, CBCA, 4485-9, 4498-2, 03989-4 #### [facility] ([id number]) [address], [address] [place] [address] Hematocrit (Bld) [Volume fraction] 32.6 % Low 35-47 [facility] Comment on above: Performed By: #### Nataliia QUIROGA, 1986-08, CBCA, 4485-9, 4498-2, 47283-7 #### [facility] ([id number]) [address] [place] [address] Hemoglobin (Bld) [Mass/Vol] 11.4 g/dL Low 11.7-15.5 [facility] Comment on above: Performed By: #### Nataliia QUIROGA, 1986-08, CBCA, 4485-9, 4498-2, 02322-4 #### [facility] ([id number]) [address] [place] [address] Lymphocytes (Bld) [#/Vol] 2.1 10*3/uL Normal 1.0-3.5 [facility] Comment on above: Performed By: #### Nataliia QUIROGA, 1986-08, CBCA, 4485-9, 4498-2, 48437-4 #### [facility] ([id number]) [address] [place] [address] Lymphocytes/100 WBC (Bld) 31.1 % Normal [facility] Comment on above: Performed By: #### Nataliia QUIROGA, 1986-08, CBCA, 4485-9, 4498-2, 99461-1 #### [facility] ([id number]) [address], [address] [place] [address] MCH (RBC) [Entitic mass] 31.3 pg Normal 27-34 [facility] Comment on above: Performed By: #### C JUNAID, 1986-08, CBCA, 4485-9, 4498-2, 64606-9 #### [facility] ([id number]) [address], [address] [place] [address] MCHC (RBC) [Mass/Vol] 34.9 g/dL Normal 32-36 [facility] Comment on above: Performed By: #### Nataliia QUIROGA, 1986-08, CBCA, 4489, 4498-2, 43185-5 #### [facility] ([id number]) [address], [facility] [address] [place] [address] MCV (RBC) [Entitic vol] 90 fL Normal 80-100 [facility] Comment on above: Performed By: #### Nataliia QUIROGA, 1986-08, CBCA, 448-9, 4498-2, 62910-1 #### [facility] ([id number]) [address] [place] [address] Monocytes (Bld) [#/Vol] 0.6 10*3/uL Normal 0-0.9 [facility] Comment on above: Performed By: #### Nataliia QUIROGA, 1986-08, CBCA, 448-9, 4498-2, 26466-3 #### [facility] ([id number]) [address] [place] [address] Monocytes/100 WBC (Bld) 8.1 % Normal [facility] Comment on above: Performed By: #### Nataliia QUIROGA, 1986-08, CBCA, 4485-9, 4498-2, 20647-6 #### [facility] ([id number]) [address], [address] [place] [address] Neutrophils/100 WBC (Bld) 59.0 % Normal [facility] Comment on above: Performed By: #### C JUNAID, 1986-08, CBCA, 4485-9, 4498-2, 12567-4 #### [facility] ([id number]) [address], [address] [place] [address] Platelet mean volume (Bld) [Entitic vol] 7.4 fL Normal 7-12 [facility] Comment on above: Performed By: #### C JUNAID, 1986-08, CBCA, 4485-9, 4498-2, 83720-5 #### [facility] ([id number]) [address], [facility] [address] [place] [address] Platelets (Bld) [#/Vol] 262 10*3/uL Normal 150-450 [facility] Comment on above: Performed By: #### Nataliia QUIROGA, 1986-08, CBCA, 4485-9, 4498-2, 00843-5 #### [facility] ([id number]) [address], [facility] [address] [place] [address] RBC COUNT 3.64 X10E12/L Low 3.80-5.20 [facility] Comment on above: Performed By: #### Nataliia QUIROGA, 1986-08, CBCA, 4485-9, 4498-2, 79340-4 #### [facility] ([id number]) [address], [facility] [address] [place] [address] WBC (Bld) [#/Vol] 6.9 10*3/uL Normal 4.0-11.0 [facility] Comment on above: Performed By: #### Nataliia QUIROGA, 1986-08, CBCA, 4485-9, 4498-2, 47133-5 #### [facility] ([id number]) [address], [facility] [address] [place] [address] CBC auto differentialon 10-0 -2023 Basophils (Bld) [#/Vol] 0.1 10*3/uL [facility] Basophils/100 WBC (Bld) 1.5 % [facility] Eosinophils (Bld) [#/Vol] 0.0 10*3/uL [facility] Eosinophils/100 WBC (Bld) 0.3 % [facility] Erythrocyte distribution width (RBC) [Ratio] 14.3 % 11.5 - 15.0 % [facility] Hematocrit (Bld) [Volume fraction] 32.6 % Low 35 - 47 % [facility] Hemoglobin (Bld) [Mass/Vol] 11.4 g/dL Low 11.7 - 15.5 g/dL [facility] Interpretation and review of laboratory results Abnormal [facility] Lymphocytes (Bld) [#/Vol] 2.1 10*3/uL [facility] Lymphocytes/100 WBC (Bld) 31.1 % [facility] MCH (RBC) [Entitic mass] 31.3 pg 27 - 34 pg [facility] MCHC (RBC) [Mass/Vol] 34.9 g/dL 32 - 36 g/dL [facility] MCV (RBC) [Entitic vol] 90 fL 80 - 100 fL [facility] Monocytes (Bld) [#/Vol] 0.6 10*3/uL [facility] Monocytes/100 WBC (Bld) 8.1 % [facility] Neutrophils (Bld) [#/Vol] 4.0 10*3/uL [facility] Neutrophils/100 WBC (Bld) 59.0 % [facility] Platelet mean volume (Bld) [Entitic vol] 7.4 fL 7 - 12 fL [facility] Platelets (Bld) [#/Vol] 262 10*3/uL [facility] RBC (Bld) [#/Vol] 3.64 10*6/uL Low [facility] WBC corrected for nucl RBC Auto (Bld) [#/Vol] 6.9 [facility][note 3[facility] System MR CERVICAL SPINE W WO CONTo [...] facet arthropathy results in minimal right and kjqk-ja-vislwxnf left neuroforaminal narrowing. Mild spinal canal narrowing. [...] C4-C5 where there is minimal right and sfss-wz-vzmvamvx left neuroforaminal narrowing as well as mild spinal canal narrowing. * No pathologic enhancement or cervical cord signal abnormalities. Finalized by Braxton Pozo on 02/03/2024 3:52 PM Normal [facility] MR Cervical spine WO and [facility] 02-03-2024 STUDY: MR CERVICAL SPINE W WO [...] facet arthropathy results in minimal right and ywsw-ic-xhmiubvu left neuroforaminal narrowing. Mild spinal canal narrowing. [...] C4-C5 where there is minimal right and xgsr-tl-zzdexyrk left neuroforaminal narrowing as well as mild spinal canal narrowing. * No pathologic enhancement or cervical cord signal abnormalities. Finalized by Braxton Pozo on 02/03/2024 3:52 PM SECTRABraxton Cole MD - 02/03/2024 STUDY: MR CERVICAL SPINE [...] facet arthropathy results in minimal right and lvnm-eb-gvnphipr left neuroforaminal narrowing. Mild spinal canal narrowing. [...] C4-C5 where there is minimal right and mxmm-gh-srbxtymc left neuroforaminal narrowing as well as mild spinal canal narrowing. * No pathologic enhancement or cervical cord signal abnormalities. Finalized by Braxton Pozo on 02/03/2024 3:52 PM [facility] Radiology Study observation (narrative) [facility] MR Cervical spine WO and W c ontrast IVOrdered By: Braxton Pozo on 02-03-2024 [facility] Work Phone: MR MRA HEAD WO CONTon [...] Garcia MD on 02/03/2024 1:17 PM Normal [facility] MRA Head vessels WO contrast on [...] Preston Garcia MD on 02/03/2024 1:17 PM [facility] Preston Garcia MD - 02/03/2024 EXAM: MR [...] Preston Garcia MD on 02/03/2024 1:17 PM [facility] Radiology Study observation (narrative) [facility] MRA Head vessels WO contrast Ordered By: Preston Garcia on 02-03-2024 [facility] Work Phone: aPTT Coag (PPP) [Time]on Interpretation and review of laboratory results Abnormal [facility] aPTT Coag (Bld) [Time] 50 s High 26-37 [facility] Comment on above: Performed By: #### C MP, 1988-5, CBCA, 4485-9, 4498-2, 15857-4 #### [facility] ([id number]) [address] [place] [address] APTTon 02-02-2024 aPTT Coag (PPP) [Time] 54 s High [facility] aPTT Coag (PPP) [Time] 58 s High [facility] aPTT Coag (PPP) [Time] 41 s High [facility] BASIC METABOLIC PANLon 02-01 Anion gap [Moles/Vol] 9 mmol/L Normal 5-15 [facility] Comment on above: Performed By: #### C JUNAID, 1986-08, CBCA, 4485-9, 4498-2, 72449-1 #### [facility] ([id number]) [address], [address] [place] [address] Calcium [Mass/Vol] 8.2 mg/dL Low 8.5-10.5 [facility] Comment on above: Performed By: #### C JUNAID, 1986-08, CBCA, 4485-9, 4498-2, 72962-9 #### [facility] ([id number]) [address], [address] [place] [address] Chloride [Moles/Vol] 105 mmol/L Normal 98-109 [facility] Comment on above: Performed By: #### C JUNAID, 1986-08, CBCA, 4485-9, 4498-2, 23084-2 #### [facility] ([id number]) [address], [address] [place] [address] CO2 [Moles/Vol] 29 mmol/L Normal 22-32 [facility] Comment on above: Performed By: #### Nataliia QUIROGA, 1986-08, CBCA, 4485-9, 4498-2, 36463-4 #### [facility] ([id number]) [address] [place] [address] Creatinine [Mass/Vol] 1.47 mg/dL High 0.40-1.00 [facility] Comment on above: Result Comment: METH OD TRACEABLE TO IDMS STANDARD Performed By: #### C JUNAID, 1986-08, CBCA, 4485-9, 4498-2, 27235-7 #### [facility] ([id number]) [address], [address] [place] [address] GFR/1.73 sq M.predicted among non-blacks MDRD (S/P/Bld) [Vol rate/Area] 48 mL/min/{1.73_m2} Low >59 [facility] Comment on above: Result Comment: Reported eGFR is based on the CKD-EPI 2020 equation that does not use a race coefficient. Performed By: #### C JUNAID, 1986-08, CBCA, 4485-9, 4498-2, 13569-3 #### [facility] ([id number]) [address] [address] [place] [address] Glucose [Mass/Vol] 80 mg/dL Normal 65-99 [facility] Comment on above: Performed By: #### Nataliia QUIROGA, 1986-08, CBCA, 4485-9, 4498-2, 75176-7 #### [facility] ([id number]) [address], [facility] [address] [place] [address] Potassium [Moles/Vol] 4.0 mmol/L Normal 3.5-5.0 [facility] Comment on above: Performed By: #### Nataliia QUIROGA, 1986-08, CBCA, 4485-9, 4498-2, 70570-6 #### [facility] ([id number]) [address] [place] [address] Sodium [Moles/Vol] 143 mmol/L Normal 134-146 [facility] Comment on above: Performed By: #### Nataliia QUIROGA, 1986-08, CBCA, 4485-9, 4498-2, 07707-5 #### [facility] ([id number]) [address] [place] [address] Urea nitrogen [Mass/Vol] 32 mg/dL High 5-23 [facility] Comment on above: Performed By: #### Nataliia QUIROGA, 1986-08, CBCA, 4485-9, 4498-2, 35503-2 #### [facility] ([id number]) [address] [place] [address] Basic Metabolic Panelon 10-0 Anion gap [Moles/Vol] 9 mmol/L 5 - 15 mmol/L [facility] Calcium [Mass/Vol] 8.2 mg/dL Low 8.5 - 10. 5 mg/dL [facility] Chloride [Moles/Vol] 105 mmol/L 98 - 109 mmol/L [facility] CO2 [Moles/Vol] 29 mmol/L 22 - 32 mmol/L [facility] Creatinine [Mass/Vol] 1.47 mg/dL High 0.40 - 1.00 mg/dL [facility] Comment on above: METHOD TRACEABLE TO IDMN STANDARD eGFR (CKD-EPI)non-race dependent 48 Low - PINF [facility] Comment on above: Reported eGFR is based on the CKD-EPI 2020 equation that does not use a race coefficient. Glucose [Mass/Vol] 80 mg/dL 65 - 99 mg/dL [facility] Interpretation and review of laboratory results Abnormal [facility] Potassium [Moles/Vol] 4.0 mmol/L 3.5 - 5.0 mmol/L [facility] Sodium [Moles/Vol] 143 mmol/L 134 - 146 mmol/L [facility] Urea nitrogen [Mass/Vol] 32 mg/dL High 5 - 23 mg/dL [facility][note 3] System CBC AND AUTO DIFFon 02-02-20 ABSOLUTE BASOPHIL 0.0 X10E9/L Normal 0.0-0.2 [facility] Comment on above: Performed By: #### C JUNAID, 1986-08, CBCA, 4485-9, 4498-2, 12922-5 #### [facility] ([id number]) [address] [facility] [place] [address] ABSOLUTE NEUTROPHIL 5.4 X10E9/L Normal 1.5-6.6 [facility] Comment on above: Performed By: #### C JUNAID, 1986-08, CBCA, 4485-9, 4498-2, 79581-7 #### [facility] ([id number]) [address] [place] [address] Basophils/100 WBC (Bld) 0.1 % Normal [facility] Comment on above: Performed By: #### C JUNAID, 1986-08, CBCA, 4485-9, 4498-2, 79403-6 #### [facility] ([id number]) [address] [place] [address] Eosinophils (Bld) [#/Vol] 0.0 10*3/uL Normal 0.0-0.4 [facility] Comment on above: Performed By: #### Nataliia QUIROGA, 1986-08, CBCA, 4485-9, 4498-2, 52187-7 #### [facility] ([id number]) [address], [address] [place] [address] Eosinophils/100 WBC (Bld) 0.1 % Normal [facility] Comment on above: Performed By: #### Nataliia QUIROGA, 1986-08, CBCA, 448-9, 4498-2, 08867-5 #### [facility] ([id number]) [address] [place] [address] Erythrocyte distribution width (RBC) [Ratio] 14.4 % Normal 11.5-15.0 [facility] Comment on above: Performed By: #### Nataliia QUIROGA, 1986-08, CBCA, 4485-9, 4498-2, 49841-7 #### [facility] ([id number]) [address] [address] [place] [address] Hematocrit (Bld) [Volume fraction] 33.8 % Low 35-47 [facility] Comment on above: Performed By: #### Nataliia QUIROGA, 1986-08, CBCA, 4485-9, 4498-2, 35188-4 #### [facility] ([id number]) [address] [place] [address] Hemoglobin (Bld) [Mass/Vol] 11.7 g/dL Normal 11.7-15.5 [facility] Comment on above: Performed By: #### C JUNAID, 1986-08, CBCA, 4485-9, 4498-2, 87221-2 #### [facility] ([id number]) [address], [address] [place] [address] Lymphocytes (Bld) [#/Vol] 1.8 10*3/uL Normal 1.0-3.5 [facility] Comment on above: Performed By: #### Nataliia QUIROGA, 1986-08, CBCA, 4489, 4498-2, 72137-2 #### [facility] ([id number]) [address] [facility] [address] [place] [address] Lymphocytes/100 WBC (Bld) 23.6 % Normal [facility] Comment on above: Performed By: #### Nataliia QUIROGA, 1986-08, CBCA, 4489, 4498-2, 78261-5 #### [facility] ([id number]) [address], [facility] [address] [place] [address] MCH (RBC) [Entitic mass] 30.8 pg Normal 27-34 [facility] Comment on above: Performed By: #### Nataliia QUIROGA, 1986-08, CBCA, 448-9, 4498-2, 99032-5 #### [facility] ([id number]) [address], [address] [place] [address] MCHC (RBC) [Mass/Vol] 34.7 g/dL Normal 32-36 [facility] Comment on above: Performed By: #### Nataliia QUIROGA, 1986-08, CBCA, 4485-9, 4498-2, 10426-8 #### [facility] ([id number]) [address], [address] [place] [address] MCV (RBC) [Entitic vol] 89 fL Normal 80-100 [facility] Comment on above: Performed By: #### C JUNAID, 1986-08, CBCA, 4485-9, 4498-2, 53227-7 #### [facility] ([id number]) [address], [address] [place] [address] Monocytes (Bld) [#/Vol] 0.5 10*3/uL Normal 0-0.9 [facility] Comment on above: Performed By: #### C JUNAID, 1986-08, CBCA, 4485-9, 4498-2, 68542-5 #### [facility] ([id number]) [address], [facility] [address] [place] [address] Monocytes/100 WBC (Bld) 6.9 % Normal [facility] Comment on above: Performed By: #### Nataliia QUIROGA, 1986-08, CBCA, 448-9, 4498-2, 12257-4 #### [facility] ([id number]) [address] [place] [address] Neutrophils/100 WBC (Bld) 69.3 % Normal [facility] Comment on above: Performed By: #### C JUNAID, 1986-08, CBCA, 4485-9, 4498-2, 05434-4 #### [facility] ([id number]) [address] [place] [address] Platelet mean volume (Bld) [Entitic vol] 7.3 fL Normal 7-12 [facility] Comment on above: Performed By: #### Nataliia QUIROGA, 1986-08, CBCA, 4485-9, 4498-2, 82078-4 #### [facility] ([id number]) [address], [address] [place] [address] Platelets (Bld) [#/Vol] 264 10*3/uL Normal 150-450 [facility] Comment on above: Performed By: #### C JUNAID, 1986-08, CBCA, 4485-9, 4498-2, 25151-3 #### [facility] ([id number]) [address] [facility] [place] [address] RBC COUNT 3.80 X10E12/L Normal 3.80-5.20 [facility] Comment on above: Performed By: #### Nataliia QUIROGA, 1986-08, CBCA, 4485-9, 4498-2, 74977-6 #### [facility] ([id number]) [address] [facility] [place] [address] WBC (Bld) [#/Vol] 7.8 10*3/uL Normal 4.0-11.0 [facility] Comment on above: Performed By: #### Nataliia QUIROGA, 1986-08, CBCA, 4485-9, 4498-2, 61508-4 #### [facility] ([id number]) [address] [facility] [place] [address] CBC auto differentialon 10-0 -2023 Basophils (Bld) [#/Vol] 0.0 10*3/uL [facility] Basophils/100 WBC (Bld) 0.1 % [facility] Eosinophils (Bld) [#/Vol] 0.0 10*3/uL [facility] Eosinophils/100 WBC (Bld) 0.1 % [facility] Erythrocyte distribution width (RBC) [Ratio] 14.4 % 11.5 - 15.0 % [facility] Hematocrit (Bld) [Volume fraction] 33.8 % Low 35 - 47 % [facility] Hemoglobin (Bld) [Mass/Vol] 11.7 g/dL 11.7 - 15.5 g/dL [facility] Interpretation and review of laboratory results Abnormal [facility] Lymphocytes (Bld) [#/Vol] 1.8 10*3/uL [facility] Lymphocytes/100 WBC (Bld) 23.6 % [facility] MCH (RBC) [Entitic mass] 30.8 pg 27 - 34 pg [facility] MCHC (RBC) [Mass/Vol] 34.7 g/dL 32 - 36 g/dL [facility] MCV (RBC) [Entitic vol] 89 fL 80 - 100 fL [facility] Monocytes (Bld) [#/Vol] 0.5 10*3/uL [facility] Monocytes/100 WBC (Bld) 6.9 % [facility] Neutrophils (Bld) [#/Vol] 5.4 10*3/uL [facility] Neutrophils/100 WBC (Bld) 69.3 % [facility] Platelet mean volume (Bld) [Entitic vol] 7.3 fL 7 - 12 fL [facility] Platelets (Bld) [#/Vol] 264 10*3/uL [facility] RBC (Bld) [#/Vol] 3.80 10*6/uL [facility] WBC corrected for nucl RBC Auto (Bld) [#/Vol] 7.8 [facility] [place] Carotid arteries - [facility] 02-02-2024 Right: Plaque with n o significant [...] at the phone number beside their name. [facility] CARDIOVASCULAR Anabela Queen DO - 02/02/2024 Right: [...] at the phone number beside their name. [facility] Radiology Study observation (narrative) [facility] US Carotid arteries - bilate ralOrdered By: Anabela Queen on 02-02-2024 [facility] Work Phone: aPTT Coag (PPP) [Time]on Interpretation and review of laboratory results Abnormal [facility] aPTT Coag (Bld) [Time] 54 s High 26-37 [facility] Comment on above: Performed By: #### C MP, 1986-08, CBCA, 4485-9, 4498-2, 25062-5 #### [facility] ([id number]) [address] [facility], [address] [place] [address] Interpretation and review of laboratory results Abnormal [facility] aPTT Coag (Bld) [Time] 58 s High 26-37 [facility] Comment on above: Performed By: #### C JUNAID, 1986-08, CBCA, 4485-9, 4498-2, 58502-9 #### [facility] ([id number]) [address] [facility], [address] [place] [address] Interpretation and review of laboratory results Abnormal [facility] aPTT Coag (Bld) [Time] 41 s High 26-37 [facility] Comment on above: Performed By: #### C MP, 1986-08, CBCA, 4485-9, 4498-2, 64357-2 #### [facility] ([id number]) [address] [facility], [address] [place] [address] APTTon 02-01-2024 aPTT Coag (PPP) [Time] 31 s [facility] BASIC METABOLIC PANLon 01-31 Anion gap [Moles/Vol] 9 mmol/L Normal 5-15 [facility] Comment on above: Performed By: #### C JUNAID, 1986-08, CBCA, 4485-9, 4498-2, 30262-2 #### [facility] ([id number]) [address], [address] [place] [address] Calcium [Mass/Vol] 9.0 mg/dL Normal 8.5-10.5 [facility] Comment on above: Performed By: #### C JUNAID, 1986-08, CBCA, 4485-9, 4498-2, 45289-8 #### [facility] ([id number]) [address], [address] [place] [address] Chloride [Moles/Vol] 103 mmol/L Normal 98-109 [facility] Comment on above: Performed By: #### Nataliia QUIROGA, 1986-08, CBCA, 4485-9, 4498-2, 64555-3 #### [facility] ([id number]) [address], [address] [place] [address] CO2 [Moles/Vol] 26 mmol/L Normal 22-32 [facility] Comment on above: Performed By: #### C JUNAID, 1986-08, CBCA, 4485-9, 4498-2, 04060-7 #### [facility] ([id number]) [address], [address] [place] [address] Creatinine [Mass/Vol] 1.33 mg/dL High 0.40-1.00 [facility] Comment on above: Result Comment: METH OD TRACEABLE TO IDMS STANDARD Performed By: #### C JUNAID, 1986-08, CBCA, 4485-9, 4498-2, 43856-3 #### [facility] ([id number]) [address], [address] [place] [address] GFR/1.73 sq M.predicted among non-blacks MDRD (S/P/Bld) [Vol rate/Area] 55 mL/min/{1.73_m2} Low >59 [facility] Comment on above: Result Comment: Reported eGFR is based on the CKD-EPI 2020 equation that does not use a race coefficient. Performed By: #### C JUNAID, 1986-08, CBCA, 4485-9, 4498-2, 84865-2 #### [facility] ([id number]) [address], [address] [place] [address] Glucose [Mass/Vol] 152 mg/dL High 65-99 [facility] Comment on above: Performed By: #### C JUNAID, 1986-08, CBCA, 4485-9, 4498-2, 13966-6 #### [facility] ([id number]) [address], [address] [place] [address] Potassium [Moles/Vol] 4.5 mmol/L Normal 3.5-5.0 [facility] Comment on above: Performed By: #### Nataliia QUIROGA, 1986-08, CBCA, 4485-9, 4498-2, 23298-3 #### [facility] ([id number]) [address], [address] [place] [address] Sodium [Moles/Vol] 138 mmol/L Normal 134-146 [facility] Comment on above: Performed By: #### Nataliia QUIROGA, 1986-08, CBCA, 4485-9, 4498-2, 88418-2 #### [facility] ([id number]) [address], [address] [place] [address] Urea nitrogen [Mass/Vol] 30 mg/dL High 5-23 [facility] Comment on above: Performed By: #### Nataliia QUIROAG, 1986-08, CBCA, 4485-9, 4498-2, 37788-9 #### [facility] ([id number]) [address], [address] [place] [address] Basic Metabolic Panelon 10-0 Anion gap [Moles/Vol] 9 mmol/L 5 - 15 mmol/L [facility] Calcium [Mass/Vol] 9.0 mg/dL 8.5 - 10. 5 mg/dL [facility] Chloride [Moles/Vol] 103 mmol/L 98 - 109 mmol/L [facility] CO2 [Moles/Vol] 26 mmol/L 22 - 32 mmol/L [facility] Creatinine [Mass/Vol] 1.33 mg/dL High 0.40 - 1.00 mg/dL [facility] Comment on above: METHOD TRACEABLE TO IDMN STANDARD eGFR (CKD-EPI)non-race dependent 55 Low - PINF [facility] Comment on above: Reported eGFR is based on the CKD-EPI 2020 equation that does not use a race coefficient. Glucose [Mass/Vol] 152 mg/dL High 65 - 99 mg/dL [facility] Interpretation and review of laboratory results Abnormal [facility] Potassium [Moles/Vol] 4.5 mmol/L 3.5 - 5.0 mmol/L [facility] Sodium [Moles/Vol] 138 mmol/L 134 - 146 mmol/L [facility] Urea nitrogen [Mass/Vol] 30 mg/dL High 5 - 23 mg/dL [facility]note 3[facility] System CBC AND AUTO DIFFon 02-01-20 24 ABSOLUTE BASOPHIL 0.0 X10E9/L Normal 0.0-0.2 [facility] Comment on above: Performed By: #### C JUNAID, 1986-08, CBCA, 4485-9, 4498-2, 80580-8 #### [facility] ([id number]) [address], [address] [place] [address] ABSOLUTE NEUTROPHIL 7.3 X10E9/L High 1.5-6.6 [facility] Comment on above: Performed By: #### C JUNAID, 1986-08, CBCA, 4485-9, 4498-2, 23831-5 #### [facility] ([id number]) [address], [address] [place] [address] Basophils/100 WBC (Bld) 0.5 % Normal [facility] Comment on above: Performed By: #### C JUNAID, 1986-08, CBCA, 4485-9, 4498-2, 11213-3 #### [facility] ([id number]) [address] [place] [address] Eosinophils (Bld) [#/Vol] 0.0 10*3/uL Normal 0.0-0.4 [facility] Comment on above: Performed By: #### C JUNAID, 1986-08, CBCA, 448-9, 4498-2, 84375-9 #### [facility] ([id number]) [address] [address] Eosinophils/100 WBC (Bld) 0.0 % Normal [facility] Comment on above: Performed By: #### Nataliia QUIROGA, 1986-08, CBCA, 448-9, 4498-2, 20959-4 #### [facility] ([id number]) [address] [address] Erythrocyte distribution width (RBC) [Ratio] 14.4 % Normal 11.5-15.0 [facility] Comment on above: Performed By: #### Nataliia QUIROGA, 1986-08, CBCA, 448-9, 4498-2, 98844-6 #### [facility] ([id number]) [address] [place] [address] Hematocrit (Bld) [Volume fraction] 35.8 % Normal 35-47 [facility] Comment on above: Performed By: #### Nataliia QUIROGA, 1986-08, CBCA, 4485-9, 4498-2, 23051-8 #### [facility] ([id number]) [address] [address] Hemoglobin (Bld) [Mass/Vol] 12.9 g/dL Normal 11.7-15.5 [facility] Comment on above: Performed By: #### C JUNAID, 1986-08, CBCA, 4485-9, 4498-2, 99283-8 #### [facility] ([id number]) [address], [address] [place] [address] Lymphocytes (Bld) [#/Vol] 0.4 10*3/uL Low 1.0-3.5 [facility] Comment on above: Performed By: #### C JUNAID, 1986-08, CBCA, 4489, 4498-2, 09581-7 #### [facility] ([id number]) [address], [address] [place] [address] Lymphocytes/100 WBC (Bld) 5.2 % Normal [facility] Comment on above: Performed By: #### Nataliia QUIROGA, 1986-08, CBCA, 448-9, 4498-2, 26137-9 #### [facility] ([id number]) [address], [address] [place] [address] MCH (RBC) [Entitic mass] 31.6 pg Normal 27-34 [facility] Comment on above: Performed By: #### Nataliia QUIROGA, 1986-08, CBCA, 4489, 4498-2, 78565-2 #### [facility] ([id number]) [address], [address] [place] [address] MCHC (RBC) [Mass/Vol] 36.0 g/dL Normal 32-36 [facility] Comment on above: Performed By: #### Nataliia QUIROGA, 1986-08, CBCA, 448-9, 4498-2, 59686-5 #### [facility] ([id number]) [address] [place] [address] MCV (RBC) [Entitic vol] 88 fL Normal 80-100 [facility] Comment on above: Performed By: #### Nataliia QUIROGA, 1986-08, CBCA, 448-9, 4498-2, 83432-5 #### [facility] ([id number]) [address] [place] [address] Monocytes (Bld) [#/Vol] 0.1 10*3/uL Normal 0-0.9 [facility] Comment on above: Performed By: #### C JUNAID, 1986-08, CBCA, 4485-9, 4498-2, 30588-2 #### [facility] ([id number]) [address] [place] [address] Monocytes/100 WBC (Bld) 0.7 % Normal [facility] Comment on above: Performed By: #### C JUNAID, 1986-08, CBCA, 4485-9, 4498-2, 15001-0 #### [facility] ([id number]) [address], [address] [place] [address] Neutrophils/100 WBC (Bld) 93.6 % Normal [facility] Comment on above: Performed By: #### Nataliia QUIROGA, 1986-08, CBCA, 4485-9, 4498-2, 86079-6 #### [facility] ([id number]) [address], [address] [place] [address] Platelet mean volume (Bld) [Entitic vol] 7.5 fL Normal 7-12 [facility] Comment on above: Performed By: #### Nataliia QUIROGA, 1986-08, CBCA, 4485-9, 4498-2, 66015-0 #### [facility] ([id number]) [address] [place] [address] Platelets (Bld) [#/Vol] 366 10*3/uL Normal 150-450 [facility] Comment on above: Performed By: #### Nataliia QUIROGA, 1986-08, CBCA, 4485-9, 4498-2, 21295-7 #### [facility] ([id number]) [address] [place] [address] RBC COUNT 4.08 X10E12/L Normal 3.80-5.20 [facility] Comment on above: Performed By: #### Nataliia QUIROGA, 1986-08, CBCA, 4485-9, 4498-2, 29587-0 #### [facility] ([id number]) [address] [place] [address] WBC (Bld) [#/Vol] 7.8 10*3/uL Normal 4.0-11.0 [facility] Comment on above: Performed By: #### Nataliia QUIROGA, 1986-08, CBCA, 4485-9, 4498-2, 98283-6 #### [facility] ([id number]) [address] [facility], [address] [place] [address] CBC auto differentialon 10-0 -2023 Basophils (Bld) [#/Vol] 0.0 10*3/uL [facility] Basophils/100 WBC (Bld) 0.5 % [facility] Eosinophils (Bld) [#/Vol] 0.0 10*3/uL [facility] Eosinophils/100 WBC (Bld) 0.0 % [facility] Erythrocyte distribution width (RBC) [Ratio] 14.4 % 11.5 - 15.0 % [facility] Hematocrit (Bld) [Volume fraction] 35.8 % 35 - 47 % [facility] Hemoglobin (Bld) [Mass/Vol] 12.9 g/dL 11.7 - 15.5 g/dL [facility] Interpretation and review of laboratory results Abnormal [facility] Lymphocytes (Bld) [#/Vol] 0.4 10*3/uL Low [facility] Lymphocytes/100 WBC (Bld) 5.2 % [facility] MCH (RBC) [Entitic mass] 31.6 pg 27 - 34 pg [facility] MCHC (RBC) [Mass/Vol] 36.0 g/dL 32 - 36 g/dL [facility] MCV (RBC) [Entitic vol] 88 fL 80 - 100 fL [facility] Monocytes (Bld) [#/Vol] 0.1 10*3/uL [facility] Monocytes/100 WBC (Bld) 0.7 % [facility] Neutrophils (Bld) [#/Vol] 7.3 10*3/uL High [facility] Neutrophils/100 WBC (Bld) 93.6 % [facility] Platelet mean volume (Bld) [Entitic vol] 7.5 fL 7 - 12 fL [facility] Platelets (Bld) [#/Vol] 366 10*3/uL [facility] RBC (Bld) [#/Vol] 4.08 10*6/uL [facility] WBC corrected for nucl RBC Auto (Bld) [#/Vol] 7.8 [facility] CT CTA HEADon 02-01-2024 CT CTA HEAD [...] Esteban MD on 02/01/2024 2:54 AM Normal [facility] CT CTV HEADon 02-01-2024 CT CTV [...] Esteban MD on 02/01/2024 2:56 AM Normal [facility] CTA Head Arteries W contrast Mary [...] Ruben Esteban MD on 02/01/2024 2:54 AM SECTRANVCS Ruben Esteban MD - 02/01/2024 CT angiogram [...] Ruben Esteban MD on 02/01/2024 2:54 AM [employer] CTA Head Arteries W contrast IVOrdered By: Ruben Esteban on 02-01-2024 [facility] Work Phone: CTA Head vessels WO [...] Ruben Esteban MD on 02/01/2024 2:56 AM [facility] Ruben Esteban MD - 02/01/2024 CT CTV [...] Ruben Esteban MD on 02/01/2024 2:56 AM [facility]note 3[facility] HEMOGLOBINon 02-01-2024 Hemoglobin (Bld) [Mass/Vol] 12.3 g/dL Normal 11.7-15.5 [facility] Comment on above: Performed By: #### C JUNAID, 1986-08, CBCA, 4485-9, 4498-2, 02606-3 #### [facility] ([id number]) [address], [address] [place] [address] Hemoglobinon 02-01-2024 Hemoglobin (Bld) [Mass/Vol] 12.3 g/dL 11.7 - 15.5 g/dL [facility] No Panel Informationon 01-31 [facility] PLATELET COUNT AND MPVon Platelet mean volume (Bld) [Entitic vol] 7.9 fL Normal 7-12 [facility] Comment on above: Performed By: #### C JUNAID, 1986-08, CBCA, 4485-9, 4498-2, 96596-9 #### [facility] ([id number]) [address], [address] [place] [address] Platelets (Bld) [#/Vol] 325 10*3/uL Normal 150-450 [facility] Comment on above: Performed By: #### C JUNAID, 1986-08, CBCA, 4485-9, 4498-2, 48320-6 #### [facility] ([id number]) [address], [address] [place] [address] PROTIME AND INRon 02-01-2024 INR Coag (PPP) [Relative time] 1.1 {INR} Normal 0.8-1.1 [facility] Comment on above: Performed By: #### C JUNAID, 1986-08, CBCA, 4485-9, 4498-2, 45713-7 #### [facility] ([id number]) [address], [address] [place] [address] PT Coag (PPP) [Time] 12.4 s Normal 9.8-13.2 [facility] Comment on above: Performed By: #### C JUNAID, 1986-08, CBCA, 4485-9, 4498-2, 76585-4 #### [facility] ([id number]) [address], [address] [place] [address] Platelet counton 02-01-2024 Platelet mean volume (Bld) [Entitic vol] 7.9 fL 7 - 12 fL [facility] Platelets (Bld) [#/Vol] 325 10*3/uL [facility] Protime & INRon 02-01-2024 INR Coag (PPP) [Relative time] 1.1 {INR} [facility] PT Coag (PPP) [Time] 12.4 s [facility] aPTT Coag (PPP) [Time]on aPTT Coag (Bld) [Time] 31 s Normal 26-37 [facility] Comment on above: Performed By: #### C JUNAID, 1986-08, CBCA, 4485-9, 4498-2, 24662-3 #### [facility] ([id number]) [address], [address] [place] [address] BASIC METABOLIC PANLon 01-30 Anion gap [Moles/Vol] 10 mmol/L Normal 5-15 [facility] Comment on above: Performed By: #### Kristi QUIROGA, 97184-4 ####[facility] ([id number])[address] [place] [address] 72962#### 41050-3 ####[facility] ([id number])[address], [address], [place] [address] Calcium [Mass/Vol] 8.3 mg/dL Low 8.5-10.5 [facility] Comment on above: Performed By: #### Kristi QUIROGA, ####[facility] ([id number])[address] [place] [address] 16426#### 41618-6 ####[facility] ([id number])[address], [address] [address] Chloride [Moles/Vol] 100 mmol/L Normal 98-109 [facility] Comment on above: Performed By: #### Kristi QUIROGA, ####[facility] ([id number])[address] [place] [address] 56712#### 25594-7 ####[facility] ([id number])[address], [address], [place] [address] CO2 [Moles/Vol] 30 mmol/L Normal 22-32 [facility] Comment on above: Performed By: #### Kristi QUIROGA, ####[facility] ([id number])[address] [place] [address] 65035#### 40204-8 ####[facility] ([id number])[address], [address], [place] [address] Creatinine [Mass/Vol] 1.54 mg/dL High 0.40-1.00 [facility] Comment on above: Result Comment: METH OD TRACEABLE TO IDMS STANDARD Performed By: #### Kristi QUIROGA, ####[facility] ([id number])[address] [place] [address] 02092#### 48381-4 ####[facility] ([id number])[address], [address], [place] [address] GFR/1.73 sq M.predicted among non-blacks MDRD (S/P/Bld) [Vol rate/Area] 46 mL/min/{1.73_m2} Low >59 [facility] Comment on above: Result Comment: Repo rted eGFR is based on theCKD-EPI 2020 equation that doesnot use a race coefficient. Performed By: #### Kristi QUIROGA, ####[facility] ([id number])[address] [place] [address] 33437#### 53356-1 ####[facility] ([id number])[address] [address] Glucose [Mass/Vol] 85 mg/dL Normal 65-99 [facility] Comment on above: Performed By: #### Kristi QUIROGA, ####[facility] ([id number])[address] [place] [address] 46062#### 93209-6 ####[facility] ([id number])[address] [address] [place] [address] Potassium [Moles/Vol] 3.4 mmol/L Low 3.5-5.0 [facility] Comment on above: Performed By: #### Kristi QUIROGA, ####[facility] ([id number])[address] [place] [address] 39519#### 33487-3 ####[facility] ([id number])[address] [address], [place] [address] Sodium [Moles/Vol] 140 mmol/L Normal 134-146 [facility] Comment on above: Performed By: #### Kristi QUIROGA, ####[facility] ([id number])[address] [place] [address] 89419#### 66754-6 ####[facility] ([id number])[address], [address] [place] [address]28 Urea nitrogen [Mass/Vol] 28 mg/dL High 5-23 [facility] Comment on above: Performed By: #### Kristi QUIROGA, ####[facility] ([id number])[address] [place] [address] 24531#### 13534-8 ####[facility] ([id number])[address] [facility], [place] [address] COMPLETE BLOOD COUNT 01-30 Erythrocyte distribution width (RBC) [Ratio] 14.5 % Normal 11.5-15.0 [facility] Comment on above: Performed By: #### Nataliia GATICA, ####[facility] ([id number])[address] [place] [address] 11173 Hematocrit (Bld) [Volume fraction] 36.1 % Normal 35-47 [facility] Comment on above: Performed By: #### Nataliia GATICA, ####[facility] ([id number])[address] [place] [address] 31758 Hemoglobin (Bld) [Mass/Vol] 12.4 g/dL Normal 11.7-15.5 [facility] Comment on above: Performed By: #### Nataliia GATICA, ####[facility] ([id number])[address] [place] [address] 21111 MCH (RBC) [Entitic mass] 30.5 pg Normal 27-34 [facility] Comment on above: Performed By: #### Nataliia GATICA, ####[facility] ([id number])[address] [place] [address] 79278 MCHC (RBC) [Mass/Vol] 34.3 g/dL Normal 32-36 [facility] Comment on above: Performed By: #### Nataliia GATCIA, ####[facility] ([id number])[address] [place] [address] 66379 MCV (RBC) [Entitic vol] 89 fL Normal 80-100 [facility] Comment on above: Performed By: #### Nataliia GATICA, ####[facility] ([id number])[address] [place] [address] 330[address] Platelet mean volume (Bld) [Entitic vol] 7.2 fL Normal 7-12 [facility] Comment on above: Performed By: #### Nataliia GATICA, ####[facility] ([id number])[address] [place] [address] Platelets (Bld) [#/Vol] 337 10*3/uL Normal 150-450 [facility] Comment on above: Performed By: #### Nataliia GATICA, ####[facility] ([id number])[address] [place] [address] 30337 RBC COUNT 4.06 X10E12/L Normal 3.80-5.20 [facility] Comment on above: Performed By: #### Nataliia GATICA, ####[facility] ([id number])[address] [place] [address] 25016 WBC (Bld) [#/Vol] 6.8 10*3/uL Normal 4.0-11.0 [facility] Comment on above: Performed By: #### Nataliia GATICA, ####[facility] ([id number])[address] [place] [address] CTA Head Arteries W contrast Mary 01-31-2024 Radiology Study observation (narrative) [facility] CTA Head vessels WO and W co ntrast Mary 01-31-2024 Radiology Study observation (narrative) [facility] ESR Photometric method (Bld) [Velocity]on 01-31-2024 ESR, ERYTHROCYTE SEDIMENTATION RATE 2 mm/h Normal 0-20 [facility] Comment on above: Performed By: #### B JUNAID, 33786-9 ####[facility] ([id number])[address] [place] [address] 49619#### 39097-4 ####[facility] ([id number])[address] [facility], [address] [place] [address] MAGNESIUMon 01-31-2024 Magnesium [Mass/Vol] 2.6 mg/dL Normal 1.8-2.6 [facility] Comment on above: Performed By: #### C , 19748-8 ####[facility] ([id number])[address] [place] [address] Magnesium [Mass/Vol] 1.8 mg/dL Normal 1.8-2.6 [facility] Comment on above: Performed By: #### B JUNAID, 36874-2 ####[facility] ([id number])[address] [place] [address] 31270#### 63407-4 ####[facility] ([id number])[address], [address] [place] [address] Magnesium [Mass/Vol] 1.8 mg/dL Normal 1.8-2.6 [facility] Comment on above: Performed By: #### 1 9123-9 ####[facility] ([id number])[address] [place] [address] 56052 MR BRAIN W WO CONTon 024 MR BRAIN W WO CONT Normal [facility] POTASSIUMon 01-31-2024 Potassium [Moles/Vol] 3.8 mmol/L Normal 3.5-5.0 [facility] Comment on above: Performed By: #### 2 823-3 ####[facility] ([id number])[address] [facility], [place] [address] PROTIME AND INRon 01-31-2024 INR Coag (PPP) [Relative time] 1.4 {INR} High 0.8-1.1 [facility] Comment on above: Performed By: #### C JUNAID, 1986-08, CBCA, 4485-9, 4498-2, 88891-6 #### [facility] ([id number]) [address] [facility], [address] [place] [address] PT Coag (PPP) [Time] 16.6 s High 9.8-13.2 [facility] Comment on above: Performed By: #### C JUNAID, 1986-08, CBCA, 4485-9, 4498-2, 20580-7 #### [facility] ([id number]) [address] [facility], [address] [place] [address] Protime & INRon 01-31-2024 INR Coag (PPP) [Relative time] 1.4 {INR} High [facility] Interpretation and review of laboratory results Abnormal [facility] PT Coag (PPP) [Time] 16.6 s High [facility][note 3] System Urology Office/Clinic Noteon 01-31-2024 Urology Office/Clinic [...] No rashes or suspicious lesions Assessment/Plan BBS 10-13 good UA shows 3+hgb, pt just finishing [...] Urnls Dip Stick Auto w/o Microscopy POC 81944 Follow-up With When Contact Information Cynthia WILLIAM in 1.5 yrs Additional Instructions: Patient Education Antibiotic Medicine, Adult Problem List/Past Medical History Ongoing Acid reflux ADD (attention deficit disorder) Allergic rhinitis Alternating constipation and diarrhea Anxiety Back pain BMI 45.0-49.9, adult Calculus of gallbladder Cholelithiasis Depressive disorder Epigastric pain Former smoker Frequent UTI Gas pain Gastritis 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 Normal [facility] Comment on above: Result Comment: Elec tronically Signed By: PAULINA JOY, CYNTHIA Haywood\.br\Date and Time Signed: 01/31/24 16:08 EDT B. burgdorferi IgG+IgM Qn (S )on 01-30-2024 LYME TOTAL 0.6 A1 Normal <0.9 [facility] Comment on above: Result Comment: ---- ------Interpretation--------<0.9 Negative0.9 - 1.0 Equivocal>1.0 Positive No serological evidence of Borrelia infection.A non-reactive result does not exclude the possibility of Borrelia infection and cannot exclude early infection with B.burgdorferi. If Lyme borreliosis is suspected, a second sample should be collected and tested 2-4 weeks later. Performed By: #### C JUNAID, CBCA, 5643-2, PINR, 32257-1 ####[facility] ([id number])[address] [place] [address]#### 05057-4 ####[facility] ([id number])[address] [facility], [address] [place] [address] CBC AND AUTO DIFFon 01-30-20 24 ABSOLUTE BASOPHIL 0.0 X10E9/L Normal 0.0-0.2 [facility] Comment on above: Performed By: #### C MP, CBCA, 5643-2, PINR, 75227-2 ####[facility] ([id number])[address] [place] [address] 90794#### 85339-6 ####[facility] ([id number])[address] [place] [address] ABSOLUTE NEUTROPHIL 4.4 X10E9/L Normal 1.5-6.6 [facility] Comment on above: Performed By: #### C MP, CBCA, 5643-2, PINR, 86374-4 ####[facility] ([id number])[address] [place] [address] 29482#### 47145-8 ####[facility] ([id number])[address], [address], [place] [address] Basophils/100 WBC (Bld) 0.2 % Normal [facility] Comment on above: Performed By: #### C MP, CBCA, 5643-2, PINR, 09961-4 ####[facility] ([id number])[address] [place] [address] 92193#### 33490-5 ####[facility] ([id number])[address], [address] [place] [address] 41970 Eosinophils (Bld) [#/Vol] 0.0 10*3/uL Normal 0.0-0.4 [facility] Comment on above: Performed By: #### C MP, CBCA, 5643-2, PINR, 07225-7 ####[facility] ([id number])[address] [place] [address] 13609#### 16020-4 ####[facility] ([id number])[address], [address], [place] [address] Eosinophils/100 WBC (Bld) 0.2 % Normal [facility] Comment on above: Performed By: #### C MP, CBCA, 5643-2, PINR, 41426-1 ####[facility] ([id number])[address] [place] [address] 96889#### 09274-7 ####[facility] ([id number])[address], [address] [place] [address]75 Erythrocyte distribution width (RBC) [Ratio] 14.5 % Normal 11.5-15.0 [facility] Comment on above: Performed By: #### C MP, CBCA, 5643-2, PINR, 73873-1 ####[facility] ([id number])[address] [place] [address] 74695#### 55631-7 ####[facility] ([id number])[address] [facility] [address] [place] [address] 36792 Hematocrit (Bld) [Volume fraction] 36.8 % Normal 35-47 [facility] Comment on above: Performed By: #### C MP, CBCA, 5643-2, PINR, 61261-3 ####[facility] ([id number])[address] [place] [address] 23518#### 14670-7 ####[facility] ([id number])[address] [facility], [address] [address] Hemoglobin (Bld) [Mass/Vol] 12.4 g/dL Normal 11.7-15.5 [facility] Comment on above: Performed By: #### C MP, CBCA, 5643-2, PINR, 04201-3 ####[facility] ([id number])[address] [place] [address] 58906#### 20229-4 ####[facility] ([id number])[address] [address] Lymphocytes (Bld) [#/Vol] 1.9 10*3/uL Normal 1.0-3.5 [facility] Comment on above: Performed By: #### C MP, CBCA, 5643-2, PINR, 74435-0 ####[facility] ([id number])[address] [place] [address] 29385#### 18328-9 ####[facility] ([id number])[address] [facility], [address] [place] [address] 34134 Lymphocytes/100 WBC (Bld) 27.8 % Normal [facility] Comment on above: Performed By: #### C MP, CBCA, 5643-2, PINR, 45431-6 ####[facility] ([id number])[address] [place] [address] 42388#### 82326-4 ####[facility] ([id number])[address] [place] [address], [address] [place] [address] 86169 MCH (RBC) [Entitic mass] 30.1 pg Normal 27-34 [facility] Comment on above: Performed By: #### C MP, CBCA, 5643-2, PINR, 56777-3 ####[facility] ([id number])[address] [place] [address] 79257#### 21721-1 ####[facility] ([id number])[address] [facility], [address] [place] [address] 13280 MCHC (RBC) [Mass/Vol] 33.8 g/dL Normal 32-36 [facility] Comment on above: Performed By: #### C MP, CBCA, 5643-2, PINR, 91367-4 ####[facility] ([id number])[address] [place] [address] 45452#### 51876-7 ####[facility] ([id number])[address] [facility], [address] [place] [address] 20127 MCV (RBC) [Entitic vol] 89 fL Normal 80-100 [facility] Comment on above: Performed By: #### C MP, CBCA, 5643-2, PINR, 12588-7 ####[facility] ([id number])[address] [place] [address] 45758#### 58268-5 ####[facility] ([id number])[address], [address], [place] [address] Monocytes (Bld) [#/Vol] 0.6 10*3/uL Normal 0-0.9 [facility] Comment on above: Performed By: #### C MP, CBCA, 5643-2, PINR, 81719-4 ####[facility] ([id number])[address] [place] [address] 09319#### 98382-4 ####[facility] ([id number])[address], [address] [place] [address] 67604 Monocytes/100 WBC (Bld) 8.8 % Normal [facility] Comment on above: Performed By: #### C MP, CBCA, 5643-2, PINR, 61344-7 ####[facility] ([id number])[address] [place] [address] 83375#### 52896-8 ####[facility] ([id number])[address], [address] [place] [address] 34418 Neutrophils/100 WBC (Bld) 63.0 % Normal [facility] Comment on above: Performed By: #### C MP, CBCA, 5643-2, PINR, 27334-9 ####[facility] ([id number])[address] [place] [address] 22125#### 01559-2 ####[facility] ([id number])[address], [address] [place] [address] Platelet mean volume (Bld) [Entitic vol] 7.2 fL Normal 7-12 [facility] Comment on above: Performed By: #### C MP, CBCA, 5643-2, PINR, 68252-8 ####[facility] ([id number])[address] [place] [address] 95457#### 70891-4 ####[facility] ([id number])[address], [address] [place] [address] 32663 Platelets (Bld) [#/Vol] 337 10*3/uL Normal 150-450 [facility] Comment on above: Performed By: #### C MP, CBCA, 5643-2, PINR, 50459-6 ####[facility] ([id number])[address] [place] [address] 87702#### 75532-1 ####[facility] ([id number])[address], [address] [place] [address] 82013 RBC COUNT 4.13 X10E12/L Normal 3.80-5.20 [facility] Comment on above: Performed By: #### C MP, CBCA, 5643-2, PINR, 67820-3 ####[facility] ([id number])[address] [place] [address] 86912#### 80313-1 ####[facility] ([id number])[address], [address] [place] [address] 23147 WBC (Bld) [#/Vol] 6.9 10*3/uL Normal 4.0-11.0 [facility] Comment on above: Performed By: #### C MP, CBCA, 5643-2, PINR, 36066-5 ####[facility] ([id number])[address] [place] [address] 31256#### 25239-0 ####[facility] ([id number])[address], [address], [place] [address] COMPREHENSIVE METABOLIC PANE Gerardo 10-02-2024 Albumin [Mass/Vol] 4.2 g/dL Normal 3.2-5.3 [facility] Comment on above: Performed By: #### C JUNAID, CBCA, 5643-2, PINR, 13303-8 ####[facility] ([id number])[address] [place] [address] 93145#### 95036-0 ####[facility] ([id number])[address], [address], [place] [address] ALP [Catalytic activity/Vol] 73 U/L Normal 39-130 [facility] Comment on above: Performed By: #### C JUNAID, CBCA, 5643-2, PINR, 34594-2 ####[facility] ([id number])[address] [place] [address] 50698#### 74872-5 ####[facility] ([id number])[address], [address] [place] [address] 33099 ALT [Catalytic activity/Vol] 14 U/L Normal 0-31 [facility] Comment on above: Performed By: #### C JUNAID, CBCA, 5643-2, PINR, 81479-9 ####[facility] ([id number])[address] [place] [address] 30094#### 04785-3 ####[facility] ([id number])[address], [address] [place] [address] 05776 Anion gap [Moles/Vol] 10 mmol/L Normal 5-15 [facility] Comment on above: Performed By: #### C JUNAID, CBCA, 5643-2, PINR, 72834-0 ####[facility] ([id number])[address] [place] [address] 39928#### 37748-3 ####[facility] ([id number])[address], [address] [place] [address] 56031 AST [Catalytic activity/Vol] 14 U/L Normal 0-41 [facility] Comment on above: Performed By: #### C JUNAID, CBCA, 5643-2, PINR, 89564-9 ####[facility] ([id number])[address] [place] [address] 97436#### 90885-3 ####[facility] ([id number])[address], [address] [place] [address] 62625 Bilirubin [Mass/Vol] 0.3 mg/dL Normal 0.3-1.2 [facility] Comment on above: Performed By: #### C JUNAID, CBCA, 5643-2, PINR, 01284-1 ####[facility] ([id number])[address] [place] [address] 39139#### 37405-5 ####[facility] ([id number])[address] [facility], [address] [place] [address] 96532 Calcium [Mass/Vol] 8.8 mg/dL Normal 8.5-10.5 [facility] Comment on above: Performed By: #### C JUNAID, CBCA, 5643-2, PINR, 24525-5 ####[facility] ([id number])[address] [place] [address] 19665#### 09600-3 ####[facility] ([id number])[address], [address] [place] [address]806 Chloride [Moles/Vol] 101 mmol/L Normal 98-109 [facility] Comment on above: Performed By: #### C MP, CBCA, 5643-2, PINR, 10432-2 ####[facility] ([id number])[address] [place] [address] 48617#### 32260-1 ####[facility] ([id number])[address], [address], [place] [address] CO2 [Moles/Vol] 27 mmol/L Normal 22-32 [facility] Comment on above: Performed By: #### C RANDELL QUIROGA, 5643-2, PINR, 12666-5 ####[facility] ([id number])[address] [place] [address] 00787#### 28690-2 ####[facility] ([id number])[address], [address], [place] [address] Creatinine [Mass/Vol] 1.46 mg/dL High 0.40-1.00 [facility] Comment on above: Result Comment: METH OD TRACEABLE TO IDMS STANDARD Performed By: #### C RANDELL QUIROGA, 5643-2, PINR, [id number] ####[facility] ([id number])[address] [place] [address] 52080#### 04098-1 ####[facility] ([id number])[address], [address] [place] [address] GFR/1.73 sq M.predicted among non-blacks MDRD (S/P/Bld) [Vol rate/Area] 49 mL/min/{1.73_m2} Low >59 [facility] Comment on above: Result Comment: Repo rted eGFR is based on theCKD-EPI 2020 equation that doesnot use a race coefficient. Performed By: #### C JUNAID, RANDELL, 5643-2, PINR, [id number] ####[facility] ([id number])[address] [place] [address] 03052#### 64890-8 ####[facility] ([id number])[address], [address], [place] [address] Glucose [Mass/Vol] 116 mg/dL High 65-99 [facility] Comment on above: Performed By: #### C MP, CBCA, 5643-2, PINR, 13670-6 ####[facility] ([id number])[address] [place] [address] 43499#### 61232-9 ####[facility] ([id number])[address], [place] [address] Potassium [Moles/Vol] 3.5 mmol/L Normal 3.5-5.0 [facility] Comment on above: Performed By: #### C MP, CBCA, 5643-2, PINR, 68715-2 ####[facility] ([id number])[address] [place] [address] 37047#### 66803-3 ####[facility] ([id number])[address], [address] [address] Protein [Mass/Vol] 6.6 g/dL Normal 6.0-8.0 [facility] Comment on above: Performed By: #### C MP, CBCA, 5643-2, PINR, 36577-0 ####[facility] ([id number])[address] [place] [address] 21348#### 03593-6 ####[facility] ([id number])[address], [address] [address] Sodium [Moles/Vol] 138 mmol/L Normal 134-146 [facility] Comment on above: Performed By: #### C MP, CBCA, 5643-2, PINR, 79174-1 ####[facility] ([id number])[address] [place] [address] 94827#### 91225-5 ####[facility] ([id number])[address], [place] [address] Urea nitrogen [Mass/Vol] 28 mg/dL High 5-23 [facility] Comment on above: Performed By: #### C MP, CBCA, 5643-2, PINR, 58985-3 ####[facility] ([id number])[address] [place] [address] 60723#### 09986-0 ####[facility] ([id number])[address] [place] [address], [address], [place] [address] DRUG SCREEN, URINEon 024 AMPHETAMINE/METHAMP Negative Normal [facility] Comment on above: Result Comment: AMPH /METH screening cut off = 1000 ng/mL Performed By: #### D GARCÍA ####[facility] ([id number])[address] [place] [address] BARBITURATES Negative Normal NEG [facility] Comment on above: Result Comment: Lisa iturates screening cut off value = 200 ng/mL Performed By: #### D GARCÍA ####[facility] ([id number])[address] [place] [address] 97850 BENZODIAZEPINES Negative Normal NEG [facility] Comment on above: Result Comment: Ferdinand odiazepines screening cut off value = 200 ng/mL Performed By: #### D GARCÍA ####[facility] ([id number])[address] [place] [address] 15242 CANNABINOIDS Negative Normal NEG [facility] Comment on above: Result Comment: Travis abinoids/THC screening cut off value = 50 ng/mL Performed By: #### D GARCÍA ####[facility] ([id number])[address] [place] [address] 87883 COCAINE METABOLITE Negative Normal NEG [facility] Comment on above: Result Comment: Coca ine screening cut off value = 300 ng/mL Performed By: #### D GARCÍA ####[facility] ([id number])[address] [place] [address] 03952 ECSTASY Negative Normal NEG [facility] Comment on above: Result Comment: Ecst asy screening cut off value = 500 ng/mLThis report is intended for use in clinicalmonitoring or management of patients. Performed By: #### D GARCÍA ####[facility] ([id number])[address] [place] [address] 04956 METHADONE Negative Normal NEG [facility] Comment on above: Result Comment: Meth adone screening cut off value = 300 ng/mL. Performed By: #### D GARCÍA ####[facility] ([id number])[address] [place] [address] 11585 OPIATES Negative Normal NEG [facility] Comment on above: Result Comment: Opia josh screening cut off value = 300 ng/mLNOTE:This test is used for the detection ofcodeine, hydrocodone (>1000 ng/mL), morphineand hydromorphone (>900 ng/mL) in urine. Performed By: #### D GARCÍA ####[facility] ([id number])[address] [place] [address] 02876 OXYCODONE Negative Normal NEG [facility] Comment on above: Result Comment: Oxyc odone screening cut off value = 300 ng/mLNOTE:This test is used for the detection ofoxycodone and oxymorphone in urine. Performed By: #### D GARCÍA ####[facility] ([id number])[address] [place] [address] 25766 PHENCYCLIDINE Negative Normal NEG [facility] Comment on above: Result Comment: Phen cyclidine screening cut off value = 25 ng/mL Performed By: #### D GARCÍA ####[facility] ([id number])[address] [place] [address] 82062 ETHANOLon 01-30-2024 Ethanol [Mass/Vol] mg/dL Normal 0.00-0.08 [facility] Comment on above: Result Comment: This report is intended for use in clinicalmonitoring or management of patients. Performed By: #### C MP, CBCA, 5643-2, PINR, 13576-4 ####[facility] ([id number])[address] [place] [address] 53696#### [id number] ####[facility] ([id number])[address], [address], [place] [address] PROTIME AND INRon 01-30-2024 INR Coag (PPP) [Relative time] 1.3 {INR} High 0.8-1.1 [facility] Comment on above: Performed By: #### C MP, CBCA, 5643-2, PINR, 42961-1 ####[facility] ([id number])[address] [place] [address] 37511#### 35566-8 ####[facility] ([id number])[address], [address] [place] [address] 01549 PT Coag (PPP) [Time] 14.9 s High 9.8-13.2 [facility] Comment on above: Result Comment: NEW REFERENCE RANGE Performed By: #### C MP, CBCA, 5643-2, PINR, 78166-6 ####[facility] ([id number])[address] [place] [address] 24687#### [id number] ####[facility] ([id number])[address], [address], [place] [address] aPTT Coag (PPP) [Time]on aPTT Coag (Bld) [Time] 33 s Normal 26-37 [facility] Comment on above: Result Comment: NEW REFERENCE RANGE Performed By: #### C MP, CBCA, 5643-2, PINR, 00218-1 ####[facility] ([id number])[address] [place] [address] 35864#### 44797-3 ####[facility] ([id number])[address] [place] [address], [address] [place] [address] 72695 Ambulatory Visit Summaryon 1 Ambulatory Visit Summary Ambulatory Visit Summary BLANCA RUDOLPH :1990 Visit Date:01/29/2024 Ambulatory Visit Instructions Your Diagnosis Frequent UTI Your Care Team Attending Physician - CYNTHIA GALLARDO PA-C Primary Care Physician - CHELI JENNINGS This Is Your Medications List nitrofurantoin [...] mg oral tablet) potassium chloride (Potassium Chloride (Qua-Zkxx-Pey M20) 20 mEq oral tablet, extended release) [...] sexual activity to prevent UTI Pickup at [facility] [id number] Unchanged acetaminophen 325 Milligram Contact prescribing physician [...] or concerns Unchanged potassium chloride (Potassium Chloride (Qrz-Tbwz-Rbx M20) 20 mEq oral tablet, extended release) Contact prescribing physician if questions or concerns Unchanged predniSONE (predniSONE 20 mg Tab) Contact prescribing physician if questions or concerns Unchanged rivaroxa (more content not included)... Normal [facility] Reminderson 01-29-2024 Reminders Reminders From: Dinorah Costa To: EU - Administrative; Sent: 01/29/2024 11:39:03 EDT Show up: 04/30/2025 11:39:00 EST Subject: Ambulatory Reminder Due Date/Time: 07/29/2025 11:38:00 EDT Reminder/Recall Patient needs scheduled with MARY for 18m f/u, due back in July of 2025 Normal [facility] CBC AND AUTO DIFFon 01-27-20 24 ABSOLUTE BASOPHIL 0.0 X10E9/L Normal 0.0-0.2 [facility] Comment on above: Performed By: #### C CORINA ARGUELLES, , THYR ####[facility] ([id number])[address] [place] [address] 57252 ABSOLUTE NEUTROPHIL 7.4 X10E9/L High 1.5-6.6 [facility] Comment on above: Performed By: #### C CORINA ARGUELLES, , THYR ####[facility] ([id number])[address] [place] [address] 10709 Basophils/100 WBC (Bld) 0.3 % Normal [facility] Comment on above: Performed By: #### C CORINA ARGUELLES, , THYR ####[facility] ([id number])[address] [place] [address] 23538 Eosinophils (Bld) [#/Vol] 0.0 10*3/uL Normal 0.0-0.4 [facility] Comment on above: Performed By: #### C CORINA ARGUELLES, , THYR ####[facility] ([id number])[address] [place] [address] 51352 Eosinophils/100 WBC (Bld) 0.0 % Normal [facility] Comment on above: Performed By: #### C KINDRA [facility], , THYR ####[facility] ([id number])[address] [place] [address] 08848 Erythrocyte distribution width (RBC) [Ratio] 14.8 % Normal 11.5-15.0 [facility] Comment on above: Performed By: #### C KINDRA [facility], , THYR ####[facility] ([id number])[address] [place] [address] 94378 Hematocrit (Bld) [Volume fraction] 35.7 % Normal 35-47 [facility] Comment on above: Performed By: #### C KINDRA [facility], , THYR ####[facility] ([id number])[address] [place] [address] 96298 Hemoglobin (Bld) [Mass/Vol] 12.0 g/dL Normal 11.7-15.5 [facility] Comment on above: Performed By: #### C KINDRA [facility], , THYR ####[facility] ([id number])[address] [place] [address] 15773 Lymphocytes (Bld) [#/Vol] 0.8 10*3/uL Low 1.0-3.5 [facility] Comment on above: Performed By: #### C KINDRA, CMP, , THYR ####[facility] ([id number])[address] [place] [address] 05029 Lymphocytes/100 WBC (Bld) 9.6 % Normal [facility] Comment on above: Performed By: #### C KINDRA CMP, , THYR ####[facility] ([id number])[address] [place] [address] 03254 MCH (RBC) [Entitic mass] 29.9 pg Normal 27-34 [facility] Comment on above: Performed By: #### C KINDRA CMP, , THYR ####[facility] ([id number])[address] [place] [address] 08168 MCHC (RBC) [Mass/Vol] 33.8 g/dL Normal 32-36 [facility] Comment on above: Performed By: #### C KINDRA, CMP, , THYR ####[facility] ([id number])[address] [place] [address] 59239 MCV (RBC) [Entitic vol] 89 fL Normal 80-100 [facility] Comment on above: Performed By: #### Nataliia ARGUELLES CMP, , THYR ####[facility] ([id number])[address] [place] [address] 33282 Monocytes (Bld) [#/Vol] 0.6 10*3/uL Normal 0-0.9 [facility] Comment on above: Performed By: #### C KINDRA, CMP, , THYR ####[facility] ([id number])[address] [place] [address] 66315 Monocytes/100 WBC (Bld) 6.7 % Normal [facility] Comment on above: Performed By: #### Nataliia ARGUELLES CMP, , THYR ####[facility] ([id number])[address] [place] [address] 04538 Neutrophils/100 WBC (Bld) 83.4 % Normal [facility] Comment on above: Performed By: #### C KINDRA, CMP, , THYR ####[facility] ([id number])[address] [place] [address] 50961 Platelet mean volume (Bld) [Entitic vol] 7.1 fL Normal 7-12 [facility] Comment on above: Performed By: #### C KINDRA CMP, , THYR ####[facility] ([id number])[address] [place] [address] 61485 Platelets (Bld) [#/Vol] 321 10*3/uL Normal 150-450 [facility] Comment on above: Performed By: #### C KINDRA, CMP, , THYR ####[facility] ([id number])[address] [place] [address] 62333 RBC COUNT 4.03 X10E12/L Normal 3.80-5.20 [facility] Comment on above: Performed By: #### C BCA, CMP, , THYR ####[facility] ([id number])[address] [place] [address] 16835 WBC (Bld) [#/Vol] 8.8 10*3/uL Normal 4.0-11.0 [facility] Comment on above: Performed By: #### C BCA, CMP, , THYR ####[facility] ([id number])[address] [place] [address] 52695 COMPREHENSIVE METABOLIC PANE Gerardo 01-27-2024 Albumin [Mass/Vol] 4.0 g/dL Normal 3.2-5.3 [facility] Comment on above: Performed By: #### C BCA, CMP, , THYR ####[facility] ([id number])[address] [place] [address] [place] [address] ALP [Catalytic activity/Vol] 72 U/L Normal 39-130 [facility] Comment on above: Performed By: #### C BCA, CMP, , THYR ####[facility] ([id number])[address] [place] [address] 80014 ALT [Catalytic activity/Vol] 15 U/L Normal 0-31 [facility] Comment on above: Performed By: #### C BCA, CMP, , THYR ####[facility] ([id number])[address] [place] [address] 64849 Anion gap [Moles/Vol] 10 mmol/L Normal 5-15 [facility] Comment on above: Performed By: #### C BCA, CMP, , THYR ####[facility] ([id number])[address] [place] [address] 65934 AST [Catalytic activity/Vol] 14 U/L Normal 0-41 [facility] Comment on above: Performed By: #### C BCA, CMP, , THYR ####[facility] ([id number])[address] [place] [address] 74280 Bilirubin [Mass/Vol] 0.5 mg/dL Normal 0.3-1.2 [facility] Comment on above: Performed By: #### C BCA, CMP, , THYR ####[facility] ([id number])[address] [place] [address] 36182 Calcium [Mass/Vol] 8.5 mg/dL Normal 8.5-10.5 [facility] Comment on above: Performed By: #### C BCA, CMP, , THYR ####[facility] ([id number])[address] [place] [address] 25167 Chloride [Moles/Vol] 104 mmol/L Normal 98-109 [facility] Comment on above: Performed By: #### C CORINA ARGUELLES, , THYR ####[facility] ([id number])[address] [place] [address] 37371 CO2 [Moles/Vol] 27 mmol/L Normal 22-32 [facility] Comment on above: Performed By: #### C CORINA ARGUELLES, , THYR ####[facility] ([id number])[address] [place] [address] 92068 Creatinine [Mass/Vol] 1.45 mg/dL High 0.40-1.00 [facility] Comment on above: Result Comment: METH OD TRACEABLE TO IDMS STANDARD Performed By: #### C CORINA ARGUELLES, , THYR ####[facility] ([id number])[address] [place] [address] 53449 GFR/1.73 sq M.predicted among non-blacks MDRD (S/P/Bld) [Vol rate/Area] 49 mL/min/{1.73_m2} Low >59 [facility] Comment on above: Result Comment: Repo rted eGFR is based on theCKD-EPI 2020 equation that doesnot use a race coefficient. Performed By: #### C CORINA ARGUELLES, , THYR ####[facility] ([id number])[address] [place] [address] 37040 Glucose [Mass/Vol] 97 mg/dL Normal 65-99 [facility] Comment on above: Performed By: #### C CORINA ARGUELLES, , THYR ####[facility] ([id number])[address] [place] [address] 11353 Potassium [Moles/Vol] 3.9 mmol/L Normal 3.5-5.0 [facility] Comment on above: Performed By: #### C CORINA ARGUELLES, , THYR ####[facility] ([id number])[address] [place] [address] 85912 Protein [Mass/Vol] 6.7 g/dL Normal 6.0-8.0 [facility] Comment on above: Performed By: #### C CORINA ARGUELLES, , THYR ####[facility] ([id number])[address] [place] [address] 52282 Sodium [Moles/Vol] 141 mmol/L Normal 134-146 [facility] Comment on above: Performed By: #### C CORINA ARGUELLES, , THYR ####[facility] ([id number])[address] [place] [address] 35139 Urea nitrogen [Mass/Vol] 31 mg/dL High 5-23 [facility] Comment on above: Performed By: #### C CORIAN ARGUELLES, , THYR ####[facility] ([id number])[address] [place] [address] WO [address] BRAIN WO CONT Normal [facility] MAGNESIUMon 01-27-2024 Magnesium [Mass/Vol] 1.8 mg/dL Normal 1.8-2.6 [facility] Comment on above: Performed By: #### C KINDRA CMP, , THYR ####[facility] ([id number])[address] [place] [address] 46749 THYROID PROFILEon 01-27-2024 Free T4 [Mass/Vol] 0.91 ng/dL Normal 0.61-1.60 [facility] Comment on above: Performed By: #### C KINDRA CMP, , THYR ####[facility] ([id number])[address] [place] [address] 69458 TSH 0.50 uIU/mL Normal 0.49-4.67 [facility] Comment on above: Performed By: #### C KINDRA, [facility], [address]-7, THYR ####[facility] ([id number])[address] [facility], [place] [address] XR HIPS BILAT W OR WO PELVIS [...] Montemayor MD on 01/18/2024 3:00 PM Normal [facility] CHLAMYDIA TRACHOMATIS AND NE ISSERIA GONORRHEA, TMAon 01-09-2024 CHLAMYDIA TRACHOMATIS DNA PROBE (PRESENCE) IN UNSP SPEC Negative Normal Negative [facility] Comment on above: Result Comment: No C hlamydia trachomatis rRNA Detected. The Aptima Combo 2 Assay is a FDA approved target amplification nucleic acid probe test that utilizes target capture for the in vitro qualitative detection and differentiation of ribosomal RNA (rRNA) from Chlamydia trachomatis (CT) and/or Neisseria gonorrhoeae (GC) to aid the diagnosis of chlamydial and/or gonococcal urogenital disease using the Sterling System. The Aptima Combo 2 Assay involves target capture, target amplification by Mucker Cofferdam-Mediated Amplification (TMA), and the detection of the amplification products (amplicon) by the Hybridization Protection Assay (HPA). The internal process controls of the Sterling System monitor the target capture, amplification, and detection steps of the assay, this is not intended to control for sampling adequacy. Performed By: #### L [id number] ####[email or web address] (BEAKER)[address] [place] [address] NEISSERIA GONORRHOEAE DNA PROBE (PRESENCE) IN UNSP SPEC Negative Normal Negative [facility] Comment on above: Result Comment: No N eisseria gonorrhoeae rRNA Detected. The Aptima Combo 2 Assay is a FDA approved target amplification nucleic acid probe test that utilizes target capture for the in vitro qualitative detection and differentiation of ribosomal RNA (rRNA) from Chlamydia trachomatis (CT) and/or Neisseria gonorrhoeae (GC) to aid the diagnosis of chlamydial and/or gonococcal urogenital disease using the Sterling System. The Aptima Combo 2 Assay involves target capture, target amplification by Mucker Cofferdam-Mediated Amplification (TMA), and the detection of the amplification products (amplicon) by the Hybridization Protection Assay (HPA). The internal process controls of the Sterling System monitor the target capture, amplification, and detection steps of the assay, this is not intended to control for sampling adequacy. Performed By: #### L [id number] ####[facility] (BEAKER)[address] [place] [address] HIV COMBO 4Gon 01-09-2024 HIV COMBO 4G Negative Normal Negative [facility] Comment on above: Performed By: #### L [id number] ####[facility] (BEAKER)[address] [place] [address] Labon 01-09-2024 Lab [id number] Blanca Rudolph 1990 Date Provider Department Center 01/09/2024 2243-[facility] RESOURCE [facility] DRAW [facility] Family History Problem Relation Age of Onset Hypertension Mother Hypertension Mother's Sister Crohn's disease Mother's Sister Hypertension Maternal Grandmother Breast cancer Maternal Grandmother Kidney disease Other Migraines Other Family Status - Relation Status Age at Mother Mother's Sister Maternal Grandmother Other Normal [facility] Office Visiton 01-09-2024 Follow-up visit [id number] Blanca Rudolph 1990 Provider Department Center 01/09/2024 [facility] Family History Problem Relation Age of Onset Hypertension Mother Hypertension Mother's Sister Crohn's disease Mother's Sister Hypertension Maternal Grandmother Breast cancer Maternal Grandmother Kidney disease Other Migraines Other Family Status - Relation Status Age at Mother Mother's Sister Maternal Grandmother Other Level of Service:80722 VT OFFICE/OUTPATIENT ESTABLISHED MOD MDM 30 MIN Reason for Visit and Comments: Exposure to HIV [Other] Med Management [[id number]] Normal [facility] RPRon 01-09-2024 REAGIN AB PRESENCE IN SERUM BY RPR Reactive Abnormal Nonreactive [facility] Comment on above: Performed By: #### L [id number] ####[facility] ([facility])[address] [place] [address] RPR QUANTITATIVEon RPR QUANT 1:8 High <1:1 [facility] Comment on above: Order Comment: Previ ously reactive FTA, performed on 04/06/2023 Result Comment: The syphilis screen is a treponemal assay; patients with previously treated syphilis could be reactive on this assay, but nonreactive on the RPR Quant assay. Performed By: #### L [id number] #### [facility] ([facility]) [address] [place] [address] URINALYSISon 01-09-2024 BILIRUBIN, TOTAL PRESENCE IN URINE Negative Normal Negative [facility] Comment on above: Performed By: #### L [id number] #### [facility] ([facility]) [address] [place] [address] Clarity (U) Slightly Cloudy Abnormal Clear [facility] Comment on above: Performed By: #### L [id number] #### [facility] ([facility]) [address] [place] [address] Color (U) Yellow Normal Yellow [facility] Comment on above: Performed By: #### L [id number] #### [facility] ([facility]) [address] [place] [address] Glucose (U) [Mass/Vol] Negative Normal Negative [facility] Comment on above: Performed By: #### L [id number] #### [facility] ([facility]) [address] [place] [address] HEMOGLOBIN PRESENCE IN URINE Large Abnormal Negative [facility] Comment on above: Performed By: #### L [id number] #### [facility] ([facility]) [address] [place] [address] Ketones Ql (U) Negative Normal Negative [facility] Comment on above: Performed By: #### L [id number] #### [facility] ([facility]) [address] [place] [address] LEUKOCYTE ESTERASE PRESENCE IN URINE BY TEST STRIP Trace Abnormal Negative [facility] Comment on above: Performed By: #### L [id number] #### [facility] ([facility]) [address] [place] [address] NITRITE PRESENCE IN URINE Negative Normal Negative [facility] Comment on above: Performed By: #### L [id number] #### [facility] ([facility]) [address] [place] [address] pH (U) 5.0 [pH] Normal 5.0-8.0 [facility] Comment on above: Performed By: #### L [id number] #### [facility] ([facility]) [address] [place] [address] Protein (U) [Mass/Vol] Negative Normal Negative [facility] Comment on above: Performed By: #### L [id number] #### [facility] ([facility]) [address] [place] [address] Specific gravity (U) [Rel density] 1.009 Low 1.015-1.020 [facility] Comment on above: Performed By: #### L [id number] #### [facility] ([facility]) [address] [place] [address] URINALYSIS MICROSCOPICon CASTS IN URINE Normal [facility] Comment on above: Performed By: #### L [id number] #### [facility] ([facility]) [address] [place] [address] CRYSTALS IN URINE Normal [facility] Comment on above: Performed By: #### L [id number] #### [facility] (BEAKER) [address] [place] [address] MUCUS (#/HPF) IN URINE SEDIMENT Occasional Normal None Seen, Occasional, Few [facility] Comment on above: Performed By: #### L [id number] #### [facility] (BEAKER) [address] [place] [address] RBC (#/HPF) IN URINE SEDIMENT 51-[address] [facility] Comment on above: Performed By: #### L [id number] #### [facility] (BEAKER) [address] [place] [address] SQUAMOUS EPITHELIAL CELLS (#/HPF) IN URINE SEDIMENT Many Abnormal None Seen, Occasional [facility] Comment on above: Performed By: #### L [id number] #### [facility] (BEAKER) [address] [place] [address] WBC (LEUKOCYTE) (#/HPF) IN URINE SEDIMENT 3-[address] [facility] Comment on above: Performed By: #### L [id number] #### [facility] (BEAKER) [address] [place] [address] CBC AND AUTO DIFFon 01-01-20 24 ABSOLUTE BASOPHIL 0.0 X10E9/L Normal 0.0-0.2 [facility] Comment on above: Performed By: #### C BCA, 06427-0, CMP, 1987-08, , 2776- 1, UPCR, 2731-8, 17465-1, 4485-9, 4498-2, 96205-6 ####[facility] ([id number])[address] [place] [address], [address] [place] [address] 67347#### 49843-6, 88613-9 ####[facility] ([id number])[address] [place] [address], [place] [address] ABSOLUTE NEUTROPHIL 5.6 X10E9/L Normal 1.5-6.6 [facility] Comment on above: Performed By: #### C BCA, 76537-0, CMP, 1987-08, , 2776- 1, UPCR, 2731-8, 04855-2, 4485-9, 4498-2, 41202-2 ####[facility] ([id number])[address], [address] [place] [address] 68404#### 71319-6, 81759-1 ####[facility] ([id number])[address] [place] [address] 32590 Basophils/100 WBC (Bld) 0.3 % Normal [facility] Comment on above: Performed By: #### C KINDRA, 88454-1, CMP, 1987-08, , , UPCR, 2731-8, 29121-3, 4485-9, 4498-2, 97774-3 ####[facility] ([id number])[address] [facility], [address] [place] [address] 39452#### 55570-6, 70380-3 ####[facility] ([id number])[address] [place] [address] 36448 Eosinophils (Bld) [#/Vol] 0.0 10*3/uL Normal 0.0-0.4 [facility] Comment on above: Performed By: #### C KINDRA, 06276-2, CMP, 1987-08, , , UPCR, 2730-8, 32863-6, 4485-9, 4498-2, 23314-3 ####[facility] ([id number])[address], [address] [place] [address]84#### 72466-8, 53459-3 ####[facility] ([id number])[address] [place] [address] 27430 Eosinophils/100 WBC (Bld) 0.5 % Normal [facility] Comment on above: Performed By: #### C KINDRA, 10776-4, CMP, 1987-08, , 7- 1, UPCR, 2731-8, 45591-9, 4485-9, 4498-2, 45249-4 ####[facility] ([id number])[address], [address] [address]#### 33293-2, 62316-3 ####[facility] ([id number])[address] [place] [address] 76734 Erythrocyte distribution width (RBC) [Ratio] 14.9 % Normal 11.5-15.0 [facility] Comment on above: Performed By: #### C KINDRA, 16947-1, [facility], 1987-08, , 2776- 1, UPCR, 2731-8, 63718-3, 4485-9, 4498-2, 67763-5 ####[facility] ([id number])[address] [address]#### 77886-0, 45245-8 ####[facility] ([id number])[address] [place] [address] 66441 Hematocrit (Bld) [Volume fraction] 37.7 % Normal 35-47 [facility] Comment on above: Performed By: #### C KINDRA, 37644-6, [facility], 1987-08, , , UPCR, 273-8, 61581-0, 4485-9, 4498-2, 91970-1 ####[facility] ([id number])[address] [address]#### 77046-9, 17556-7 ####[facility] ([id number])[address] [place] [address] 98292 Hemoglobin (Bld) [Mass/Vol] 12.4 g/dL Normal 11.7-15.5 [facility] Comment on above: Performed By: #### Nataliia ARGUELLES, 02823-2, CMP, 1987-08, 90861-5, 2777- 1, UPCR, 2731-8, 23530-1, 4485-9, 4498-2, 11918-7 ####[facility] ([id number])[address], [address] [place] [address]#### 37310-1, 15370-0 ####[facility] ([id number])[address] [place] [address] 04457 Lymphocytes (Bld) [#/Vol] 0.8 10*3/uL Low 1.0-3.5 [facility] Comment on above: Performed By: #### C KINDRA, 38864-5, [facility], 1987-08, , 2776- 1, UPCR, 2731-8, 71960-8, 4485-9, 4498-2, 17235-7 ####[facility] ([id number])[address], [address] [place] [address]#### 26802-5, 95192-0 ####[facility] ([id number])[address] [place] [address] 17014 Lymphocytes/100 WBC (Bld) 10.8 % Normal [facility] Comment on above: Performed By: #### C KINDRA, 32569-2, [facility], 1987-08, , 277- 1, UPCR, 273-8, 80682-3, 4485-9, 4498-2, 35276-3 ####[facility] ([id number])[address], [address] [place] [address]13#### 49903-3, 25320-3 ####[facility] ([id number])[address] [place] [address] 72020 MCH (RBC) [Entitic mass] 30.0 pg Normal 27-34 [facility] Comment on above: Performed By: #### C KINDRA, 62714-8, CMP, 1987-08, 58983-9, 2777- 1, UPCR, 2731-8, 58678-3, 4485-9, 4498-2, 28207-1 ####[facility] ([id number])[address], [address] [place] [address] 99494#### 51173-1, 16784-8 ####[facility] ([id number])[address] [place] [address] 02332 MCHC (RBC) [Mass/Vol] 33.0 g/dL Normal 32-36 [facility] Comment on above: Performed By: #### C KINDRA, 97118-7, CMP, 1987-08, , 2776- , UPCR, 2731-8, 59682-4, 4485-9, 4498-2, 22710-8 ####[facility] ([id number])0 [facility], [address] [place] [address]#### 87818-4, 22196-9 ####[facility] ([id number])[address] [place] [address] 19285 MCV (RBC) [Entitic vol] 91 fL Normal 80-100 [facility] Comment on above: Performed By: #### C KINDRA, 28359-8, CMP, 1987-08, , , UPCR, 273-8, 16948-5, 4485-9, 4498-2, 58429-7 ####[facility] ([id number])[address], [address] [place] [address]#### 44315-5, 05973-6 ####[facility] ([id number])[address] [place] [address] 51931 Monocytes (Bld) [#/Vol] 0.5 10*3/uL Normal 0-0.9 [facility] Comment on above: Performed By: #### C KINDRA, 75250-0, CMP, 1987-08, 84635-8, 2777- 1, UPCR, 2731-8, 55881-3, 4485-9, 4498-2, 42697-4 ####[facility] ([id number])[address], [address] [place] [address]#### 90698-3, 74364-4 ####[facility] ([id number])[address] [place] [address] 22948 Monocytes/100 WBC (Bld) 7.8 % Normal [facility] Comment on above: Performed By: #### C KINDRA, 25901-9, CMP, 1987-08, , 2776- 1, UPCR, 2731-8, 26790-7, 4485-9, 4498-2, 15938-0 ####[facility] ([id number])[address], [address] [place] [address]#### 99259-4, 99711-9 ####[facility] ([id number])[address] [place] [address] 80243 Neutrophils/100 WBC (Bld) 80.6 % Normal [facility] Comment on above: Performed By: #### C KINDRA, 40094-7, CMP, 1987-08, , 277- 1, UPCR, 2731-8, 31978-5, 4485-9, 4498-2, 32528-7 ####[facility] ([id number])[address], [address] [place] [address]#### 58102-2, 47124-3 ####[facility] ([id number])[address] [place] [address] 90360 Platelet mean volume (Bld) [Entitic vol] 7.7 fL Normal 7-12 [facility] Comment on above: Performed By: #### C KINDRA, 87162-2, CMP, 1987-08, 93580-7, 2777- 1, UPCR, 2731-8, 57563-4, 4485-9, 4498-2, 37439-3 ####[facility] ([id number])[address], [address] [place] [address]#### 30201-5, 36083-8 ####[facility] ([id number])[address] [place] [address] 09891 Platelets (Bld) [#/Vol] 277 10*3/uL Normal 150-450 [facility] Comment on above: Performed By: #### C KINDRA, 60014-8, CMP, 1987-08, 42417-9, 7- 1, UPCR, 2731-8, 78596-8, 4485-9, 4498-2, 86196-8 ####[facility] ([id number])[address] [facility], [address] [place] [address]#### 13815-5, 47820-3 ####[facility] ([id number])[address] [place] [address] 88325 RBC COUNT 4.15 X10E12/L Normal 3.80-5.20 [facility] Comment on above: Performed By: #### C KINDRA, 15751-9, CMP, 1987-08, , 2777- 1, UPCR, 2731-8, 24770-6, 4485-9, 4498-2, 28447-2 ####[facility] ([id number])[address] [facility], [address] [place] [address]#### 62353-3, 93021-9 ####[facility] ([id number])[address] [place] [address] 80724 WBC (Bld) [#/Vol] 6.9 10*3/uL Normal 4.0-11.0 [facility] Comment on above: Performed By: #### C BCA, 11925-6, CMP, 1987-08, 76340-1, 2777- 1, UPCR, 2731-8, 10298-9, 4485-9, 4498-2, 68945-9 ####[facility] ([id number])[address] [facility], [address] [place] [address]#### 74721-4, 79771-6 ####[facility] ([id number])[address] [place] [address] 37574 CHLAMYDIA/GC PCR, Uon 2023 CHLAMYDIA/GC PCR, U [facility] Comment on above: Performed By: #### C GUPCR ####[facility] ([id number])[address] [facility], [address] [place] [address] 08275 COMPREHENSIVE METABOLIC PANE Gerardo 01-01-2024 Albumin [Mass/Vol] 3.7 g/dL Normal 3.2-5.3 [facility] Comment on above: Performed By: #### C BCA, 94623-3, CMP, 1987-08, , 2776- 1, UPCR, 2731-8, 89236-6, 4485-9, 4498-2, 14883-0 ####[facility] ([id number])[address] [facility], [address] [place] [address]#### 24399-2, 22742-6 ####[facility] ([id number])[address] [place] [address] 25894 ALP [Catalytic activity/Vol] 62 U/L Normal 39-130 [facility] Comment on above: Performed By: #### C BCA, 69369-2, CMP, 1987-08, 99306-6, 2777- 1, UPCR, 2731-8, 46949-5, 4485-9, 4498-2, 55923-9 ####[facility] ([id number])[address], [address] [place] [address] 9[address]#### 65384-3, 74119-4 ####[facility] ([id number])[address] [place] [address] 22212 ALT [Catalytic activity/Vol] 11 U/L Normal 0-31 [facility] Comment on above: Performed By: #### C BCA, 73623-9, CMP, 1987-08, 64158-4, 2777- 1, UPCR, 2731-8, 91319-1, 4485-9, 4498-2, 57114-6 ####[facility] ([id number])[address] [facility], [address] [place] [address] 11031#### 67685-5, 57524-6 ####[facility] ([id number])[address] [place] [address] 22875 Anion gap [Moles/Vol] 10 mmol/L Normal 5-15 [facility] Comment on above: Performed By: #### C BCA, 76893-3, CMP, 1987-08, 75894-7, 2777- 1, UPCR, 2731-8, 27980-0, 4485-9, 4498-2, 20428-6 ####[facility] ([id number])[address] [facility], [address] [place] [address] 21046#### 45333-8, 36423-9 ####[facility] ([id number])[address] [place] [address] 17888 AST [Catalytic activity/Vol] 15 U/L Normal 0-41 [facility] Comment on above: Performed By: #### C BCA, 90977-0, CMP, 1987-08, 56420-2, 2777- 1, UPCR, 2731-8, 22682-2, 4485-9, 4498-2, 05449-0 ####[facility] ([id number])[address], [address] [place] [address] 66092#### 71058-4, 09082-8 ####[facility] ([id number])[address] [place] [address] 79848 Bilirubin [Mass/Vol] 0.4 mg/dL Normal 0.3-1.2 [facility] Comment on above: Performed By: #### C BCA, 72253-9, CMP, 1987-08, , 277- 1, UPCR, 2731-8, 71064-9, 4485-9, 4498-2, 67792-0 ####[facility] ([id number])0 [facility], [address] [place] [address] 40769#### 44649-4, 76624-6 ####[facility] ([id number])[address] [place] [address] 59359 Calcium [Mass/Vol] 8.8 mg/dL Normal 8.5-10.5 [facility] Comment on above: Performed By: #### C BCA, 07129-4, CMP, 1987-08, , 2776- 1, UPCR, 2731-8, 61424-0, 4485-9, 4498-2, 91532-9 ####[facility] ([id number])[address], [address] [place] [address] 32148#### 89627-4, 18301-3 ####[facility] ([id number])[address] [place] [address] 40707 Chloride [Moles/Vol] 103 mmol/L Normal 98-109 [facility] Comment on above: Performed By: #### C BCA, 06225-7, CMP, 1987-08, , 2777- 1, UPCR, 2731-8, 32312-3, 4485-9, 4498-2, 28519-6 ####[facility] ([id number])[address] [place] [address]#### 90023-5, 74601-9 ####[facility] ([id number])[address] [place] [address] 83931 CO2 [Moles/Vol] 30 mmol/L Normal 22-32 [facility] Comment on above: Performed By: #### C BCA, 81658-8, CMP, 1987-08, , 2777- 1, UPCR, 2731-8, 81822-2, 4485-9, 4498-2, 55611-9 ####[facility] ([id number])[address] [place] [address]92#### 33887-6, 12945-3 ####[facility] ([id number])[address] [place] [address] 69523 Creatinine [Mass/Vol] 1.44 mg/dL High 0.40-1.00 [facility] Comment on above: Result Comment: METH OD TRACEABLE TO IDMS STANDARD Performed By: #### C BCA, 51357-9, CMP, 1987-08, , 2777-1, UPCR, 2731-8, 36795-7, 4485-9, 4498-2, 08413-2 ####[facility] ([id number])[address] [place] [address] 86527#### 92843-6, 73510-0 ####[facility] ([id number])[address] [place] [address] 46944 GFR/1.73 sq M.predicted among non-blacks MDRD (S/P/Bld) [Vol rate/Area] 50 mL/min/{1.73_m2} Low >59 [facility] Comment on above: Result Comment: Repo rted eGFR is based on theCKD-EPI 2021 equation that doesnot use a race coefficient. Performed By: #### C BCA, 03192-1, CMP, 1987-08, 37753-7, 2777-1, UPCR, 2731-8, 59341-5, 4485-9, 4498-2, 76873-9 ####[facility] ([id number])[address], [address] [place] [address] 60715#### 03588-6, 86339-4 ####[facility] ([id number])[address] [place] [address] 99651 Glucose [Mass/Vol] 99 mg/dL Normal 65-99 [facility] Comment on above: Performed By: #### C BCA, 39068-4, [facility], 1987-08, 24684-6, 2776- 1, UPCR, 2731-8, 81105-9, 4485-9, 4498-2, 09699-6 ####[facility] ([id number])[address], [address] [place] [address] 27620#### 67058-9, 69086-7 ####[facility] ([id number])[address] [place] [address] 99036 Potassium [Moles/Vol] 3.8 mmol/L Normal 3.5-5.0 [facility] Comment on above: Performed By: #### C BCA, 06917-4, [facility], 1987-08, , 277- 1, UPCR, 2731-8, 43051-5, 4485-9, 4498-2, 02896-6 ####[facility] ([id number])[address], [address] [place] [address] 69950#### 78497-1, 65439-0 ####[facility] ([id number])[address] [place] [address] 02204 Protein [Mass/Vol] 6.2 g/dL Normal 6.0-8.0 [facility] Comment on above: Performed By: #### C BCA, 74338-9, CMP, 1987-08, 15978-2, 2777- 1, UPCR, 2731-8, 34615-9, 4485-9, 4498-2, 52284-6 ####[facility] ([id number])[address], [address] [place] [address] 31382#### 54965-0, 11025-0 ####[facility] ([id number])[address] [place] [address] 34501 Sodium [Moles/Vol] 143 mmol/L Normal 134-146 [facility] Comment on above: Performed By: #### C BCA, 23281-7, CMP, 1987-08, 60451-4, 2777- 1, UPCR, 2731-8, 10650-0, 4485-9, 4498-2, 38249-9 ####[facility] ([id number])[address], [address] [place] [address] 20322#### 13131-5, 91425-9 ####[facility] ([id number])[address] [place] [address] 58750 Urea nitrogen [Mass/Vol] 22 mg/dL Normal 5-23 [facility] Comment on above: Performed By: #### C BCA, 90856-1, CMP, 1987-08, , 2777- 1, UPCR, 2731-8, 01110-9, 4485-9, 4498-2, 80418-0 ####[facility] ([id number])[address], [address] [place] [address] 72702#### 03365-5, 68415-2 ####[facility] ([id number])[address] [place] [address] 76997 CRP [Mass/Vol]on 01-01-2024 C REACTIVE PROTEIN 0.3 mg/dL Normal 0.000-0.744 [facility] Comment on above: Performed By: #### C BCA, 13363-0, CMP, 1987-08, 19532-1, 2777- 1, UPCR, 2731-8, 09750-8, 4485-9, 4498-2, 99552-5 ####[facility] ([id number])[address], [address] [place] [address] 12942#### 64727-0, 81354-2 ####[facility] ([id number])[address] [place] [address] 67440 Complement C3 [Mass/Vol]on 0 01-01-2024 COMPLEMENT C3 138 mg/dL Normal 86-184 [facility] Comment on above: Performed By: #### C BCA, 48601-3, CMP, 1987-08, , 2776- 1, UPCR, 2731-8, 17321-8, 4485-9, 4498-2, 98541-9 ####[facility] ([id number])[address], [address] [place] [address] 32981#### 56806-2, 36343-2 ####[facility] ([id number])[address] [place] [address] 31553 Complement C4 [Mass/Vol]on 0 01-01-2024 COMPLEMENT C4 26 mg/dL Normal 16-47 [facility] Comment on above: Performed By: #### C BCA, 60121-0, CMP, 1987-08, 83341-1, 2777- 1, UPCR, 2731-8, 85341-2, 4485-9, 4498-2, 91428-9 ####[facility] ([id number])[address], [address] [place] [address] 90079#### 96909-8, 70902-4 ####[facility] ([id number])[address] [place] [address] 12664 ESR Photometric method (Bld) [Velocity]on 01-01-2024 ESR, ERYTHROCYTE SEDIMENTATION RATE 7 mm/h Normal 0-20 [facility] Comment on above: Performed By: #### C KINDRA, 27943-8, CMP, 1987-, 39930-3, 2777- 1, UPCR, 2731-8, 55190-2, 4485-9, 4498-2, 92573-1 ####[facility] ([id number])[address] [place] [address], [address] [place] [address] 61688#### 61769-6, 33485-4 ####[facility] ([id number])[address] [place] [address] 44527 MAGNESIUMon 01-01-2024 Magnesium [Mass/Vol] 1.6 mg/dL Low 1.8-2.6 [facility] Comment on above: Performed By: #### C KINDRA, 54172-1, CMP, 1987-08, 05911-9, 2777- 1, UPCR, 2731-8, 15090-0, 4485-9, 4498-2, 54439-0 ####[facility] ([id number])[address] [place] [address], [address] [address]#### 32033-3, 31613-3 ####[facility] ([id number])[address] [place] [address] 93878 Orders Onlyon 01-01-2024 Orders Only [id number] Blanca Rudolph 1990 F Date Provider Department Center 01/01/2024 JEFFERY AVITIA [facility] Family History Problem Relation Age of Onset Hypertension Mother Hypertension Mother's Sister Crohn's disease Mother's Sister Hypertension Maternal Grandmother Breast cancer Maternal Grandmother Kidney disease Other Migraines Other Family Status - Relation Status Age at Mother Mother's Sister Maternal Grandmother Other Normal [facility] PHOSPHORUSon 01-01-2024 Phosphate [Mass/Vol] 3.1 mg/dL Normal 2.4-4.9 [facility] Comment on above: Performed By: #### C BCA, 86721-2, CMP, 1987-08, 10985-8, 2777- 1, UPCR, 2731-8, 28800-6, 4485-9, 4498-2, 05011-7 ####[facility] ([id number])[address], [address] [place] [address] 31988#### 84534-6, 64088-9 ####[facility] ([id number])[address] [place] [address] 75292 PROTEIN CREAT RATIOon 2023 RANDOM URINE PROTEIN 90 mg/L Normal <120 [facility] Comment on above: Performed By: #### C BCA, 95369-3, CMP, 1987-08, , 2776- 1, UPCR, 2731-8, 01386-7, 4485-9, 4498-2, 55948-0 ####[facility] ([id number])[address], [address] [place] [address] 13630#### 72300-0, 56156-4 ####[facility] ([id number])[address] [place] [address] 71642 U/PRO/DISABILITY MANAGER RATIO CALC 0.14 Normal <0.2 [facility] Comment on above: Result Comment: Neph rotic Syndrome is associated with ratios >3.5 Performed By: #### C BCA, 54207-7, CMP, 1987-08, , 2777-1, UPCR, 2731-8, 79520-2, 4485-9, 4498-2, 54235-4 ####[facility] ([id number])[address], [address] [place] [address] 44656#### 36848-1, 11226-6 ####[facility] ([id number])[address] [place] [address] 28285 URINE CREATININE,RDM 66.04 mg/dL Normal [facility] Comment on above: Performed By: #### C KINDRA, 09708-6, [facility], 1987-08, 59413-7, 2777- 1, UPCR, 2731-8, 70735-5, 4485-9, 4498-2, 91165-9 ####[facility] ([id number])[address] [place] [address], [address] [place] [address] 53880#### 21031-2, 19220-8 ####[facility] ([id number])[address] [place] [address] 52646 Parathyrin.intact [Mass/Vol] on 01-01-2024 PTH INTACT 71 pg/mL Normal 12- [facility] Comment on above: Performed By: #### C KINDRA, 39849-9, [facility], 1987-08, , 2776- 1, UPCR, 2731-8, 64284-1, 4485-9, 4498-2, 35887-1 ####[facility] ([id number])[address] [place] [address], [address] [place] [address] 91036#### 86829-1, 30872-4 ####[facility] ([id number])[address] [place] [address] 12364 Reagin Ab RPR (S) [Titer]on 01-01-2024 RPR TITER, SERUM SEE COMMENTS 01/04/2024 09:56 AM Abnormal [facility] Comment on above: Result Comment: NOTE Test Result Flag Unit RefValue --------RPR, Titer, S 1:4 A Negative Results consistent with untreated or recently treated syphilis. Clinical correlation required. For additional information on interpretation of the syphilis reverse algorithm and results, see: [email or web address] Test Performed by: [place] [address] Acute Care Occupational Therapist: Bulmaro Bull Ph.D.; CLIA# [id number] Performed By: #### Nataliia ARGUELLES, 02101-0, CMP, 1986-08, 75596-4, 2777-1, UPCR, 2731-8, 74890-6, 4485-9, 4498-2, 66659-9 ####[facility] ([id number])[address] [facility], [address] [address]#### 87177-7, 48738-9 ####[facility] ([id number])[address] [place] [address] Reagin Ab RPR Ql (S)on 12-31 RPR WITH REFLEX TO RTPPA Positive Abnormal Negative [facility] Comment on above: Result Comment: NOTE Specimen reflexed to determine RPR titer.For additional information on interpretation of thesyphilis reverse algorithm and results, see:[email or web address] Performed by:[address] [address]Ajs Director: Bulmaro Bull Ph.D.; CLIA# [id number] Performed By: #### Nataliia ARGUELLES, 84018-3, CMP, 1987-, 93700-1, 2777-1, UPCR, 2731-8, 67930-0, 4485-9, 4498-2, 02135-1 ####[facility] ([id number])[address] [facility], [address] [place] [address]#### 65305-9, 25440-3 ####[facility] ([id number])[address] [place] [address] T. pallidum IgG+IgM IA Ql (S )on 01-01-2024 Syphilis Total >8.0 High 0.0-0.8 [facility] Comment on above: Result Comment: REAC TIVEThis specimen will be sent to a reference lab for additional testing which includes RPR withreflex to TP-PA if RPR is negative. The RPR will help distinguish between infections withT.pallidum (syphilis) versus a falsely reactive treponemal antibody result.Please see the syphilis testing algorithm link below for more information.[email or web address] Performed By: #### C BCA, 68085-6, CMP, 1988-5, 67309-7, 2777-1, UPCR, 2731-8, 54506-1, 4485-9, 4498-2, 62388-4 ####[facility] ([id number])[address] [address]#### 26153-7, 32362-2 ####[facility] ([id number])[address] [place] [address] URINALYSISon 01-01-2024 Bilirubin Ql (U) Negative Normal NEG [facility] Comment on above: Performed By: #### U A ####[facility] ([id number])[address] [address] BLOOD/HGB MODERATE Abnormal NEG [facility] Comment on above: Performed By: #### U A ####[facility] ([id number])[address] [address] Color (U) YELLOW Normal YELLOW [facility] Comment on above: Performed By: #### U A ####[facility] ([id number])[address], [place] [address] Glucose Ql (U) Negative Normal NEG [facility] Comment on above: Performed By: #### U A ####[facility] ([id number])[address], [place] [address] Hyaline casts LM Ql (Urine sed) 3 /lpf High 0-2 [facility] Comment on above: Performed By: #### U A ####[facility] ([id number])[address], [address] [address] Ketones Ql (U) Negative Normal NEG [facility] Comment on above: Performed By: #### U A ####[facility] ([id number])[address], [address] [address] Leukocyte esterase Test strip Ql (U) Negative Normal NEG [facility] Comment on above: Performed By: #### U A ####[facility] ([id number])[address], [address] [address] MUCOUS PRESENT Abnormal NONE [facility] Comment on above: Performed By: #### U A ####[facility] ([id number])[address], [address], [place] [address] Nitrite Ql (U) Negative Normal NEG [facility] Comment on above: Performed By: #### U A ####[facility] ([id number])[address], [address] [place] [address] pH (U) 6.0 [pH] Normal 5.0-8.5 [facility] Comment on above: Performed By: #### U A ####[facility] ([id number])[address], [address], [place] [address] Protein Ql (U) Negative Normal NEG [facility] Comment on above: Performed By: #### U A ####[facility] ([id number])[address] [address], [place] [address] R.B.CELLS 5 /hpf Normal 0-5 [facility] Comment on above: Performed By: #### U A ####[facility] ([id number])[address], [address], [place] [address] Specific gravity (U) [Rel density] 1.011 Normal 1.003-1.035 [facility] Comment on above: Performed By: #### U A ####[facility] ([id number])[address] [address], [place] [address] SQUAMOUS EPITHELIUM 1 /hpf Normal 0-5 [facility] Comment on above: Performed By: #### U A ####[facility] ([id number])[address] [address], [place] [address] TURBIDITY CLEAR Normal CLEAR [facility] Comment on above: Performed By: #### U A ####[facility] ([id number])[address] [address] [address] Urobilinogen (U) [Mass/Vol] mg/dL Normal <1.1 [facility] Comment on above: Performed By: #### U A ####[facility] ([id number])[address] [address], [place] [address] W.B.CELLS 1 /hpf Normal 0-5 [facility] Comment on above: Performed By: #### U A ####[facility] ([id number])[address] [address], [place] [address] Vitamin D+Metabolites [Mass/ Vol]on 01-01-2024 VITAMIN D 25 HYD TOT 44.5 ng/mL Normal 30-100 [facility] Comment on above: Result Comment: Amber min D status 25 [place] Vitamin D Deficiency <20 ng/mLInsufficiency 20-29 ng/mLSufficiency 30-100 ng/mLToxicity >100 ng/mLNOTE: A pediatric reference range has not beenestablished by the regional sales consultant of this kit.The [place] [employer] recommendsa Vitamin D level of = or >20ng/mL in infantsand children. Performed By: #### C BCA, 79709-2, CMP, 1987-5, 37371-7, 2777-1, UPCR, 2731-8, 42458-4, 4485-9, 4498-2, 54282-6 ####[facility] ([id number])[address] [place] [address], [address] [address]#### 24402-9, 00103-8 ####[facility] ([id number])[address] [place] [address] CHLAMYDIA/GC PCR, Uon 2023 CHLAMYDIA/GC PCR, U [facility] Comment on above: Performed By: #### C GUPCR ####[facility] ([id number])[address] [place] [address], [address] [address] HCG ( test) Ql (U)o n 12-24-2023 Beta HCG ( test) Ql (U) Negative Normal NEG [facility] Comment on above: Performed By: #### 2 106-3 ####[facility] ([id number])[address] [place] [address] URN MACROSCOPIC NURon 2023 BILIRUBIN BRENDEN Negative Normal NEG [facility] Comment on above: Performed By: #### N UM ####[facility] ([id number])[address] [place] [address] BLOOD/HGB BRENDNE MODERATE Abnormal NEG [facility] Comment on above: Performed By: #### N UM ####[facility] ([id number])[address] [place] [address], [place] [address] GLUCOSE BRENDEN Negative Normal NEG [facility] Comment on above: Performed By: #### N UM ####[facility] ([id number])[address] [place] [address], [place] [address] KETONES BRENDEN Negative Normal NEG [facility] Comment on above: Performed By: #### N UM ####[facility] ([id number])[address] [place] [address], [place] [address] LEUKOCYTE ESTERASE BRENDEN Negative Normal NEG [facility] Comment on above: Performed By: #### N UM ####[facility] ([id number])[address] [place] [address], [place] [address] NITRITE BRENDEN Negative Normal NEG [facility] Comment on above: Performed By: #### N UM ####[facility] ([id number])[address] [place] [address], [place] [address] PH BRENDEN 5.5 Normal 5.0-8.5 [facility] Comment on above: Performed By: #### N UM ####[facility] ([id number])[address] [place] [address], [place] [address] PROTEIN BRENDEN 30 mg/dL Abnormal NEG [facility] Comment on above: Performed By: #### N UM ####[facility] ([id number])[address] [place] [address], [place] [address] SPECIFIC GRAVITY BRENDEN 1.020 Normal 1.003-1.035 [facility] Comment on above: Performed By: #### N UM ####[facility] ([id number])[address] [place] [address], [place] [address] UROBILINOGEN BRENDEN 0.2 eu/dL Normal <1.1 [facility] Comment on above: Performed By: #### N UM ####[facility] ([id number])[address] [place] [address] XR Foot - right 3 [facility] Result: AP, medial oblique, lateral views are weight-bearing. They reveal significant metatarsus adductus. There is large os trigonum noted over the posterolateral talar process. [facility] [employer] [facility] H[facility]PITALPrecision Golf Fitness Academycar e Radiology Study observation (narrative) [facility] MR BRAIN IAC W WO CONTon MR BRAIN IAC W WO CONT Normal [facility] 36on 12-12-2023 36 Approving, but needs appt for additional refills. Normal [facility] HCG ( test) Ql (U)o n 11-12-2023 Beta HCG ( test) Ql (U) Negative Normal NEG [facility] Comment on above: Performed By: #### 2 106-3 ####[facility] ([id number])[address] [place] [address] URN MACROSCOPIC NURon 2023 BILIRUBIN BRENDEN Negative Normal [facility] Comment on above: Performed By: #### N UM ####[facility] ([id number])[address] [place] [address] BLOOD/HGB BRENDEN Large Abnormal [facility] Comment on above: Performed By: #### N UM ####[facility] ([id number])[address] [place] [address] GLUCOSE BRENDEN Negative Normal [facility] Comment on above: Performed By: #### N UM ####[facility] ([id number])[address] [place] [address] [place] [address] KETONES BRENDEN Negative Normal NEG [facility] Comment on above: Performed By: #### N UM ####[facility] ([id number])[address] [place] [address] [place] [address] LEUKOCYTE ESTERASE BRENDEN Trace Abnormal NEG [facility] Comment on above: Performed By: #### N UM ####[facility] ([id number])[address] [place] [address] NITRITE BRENDEN Negative Normal NEG [facility] Comment on above: Performed By: #### N UM ####[facility] ([id number])[address] [place] [address] PH BRENDEN 5.5 Normal 5.0-8.5 [facility] Comment on above: Performed By: #### N UM ####[facility] ([id number])[address] [place] [address] PROTEIN BRENDEN Negative Normal NEG [facility] Comment on above: Performed By: #### N UM ####[facility] ([id number])[address] [place] [address] SPECIFIC GRAVITY BRENDEN 1.010 Normal 1.003-1.035 [facility] Comment on above: Performed By: #### N UM ####[facility] ([id number])[address] [place] [address] UROBILINOGEN BRENDEN 0.2 eu/dL Normal <1.1 [facility] Comment on above: Performed By: #### N UM ####[facility] ([id number])[address] [place] [address] 29on 10-05-2023 29 Addended by: TAZ SANDERS on: 10/08/2023 07:11 AM Modules accepted: Orders Normal [facility] CBC WITH AUTO DIFFERENTIALon 10-05-2023 Basophils (Bld) [#/Vol] 0.03 10*3/uL Normal 0.00-0.20 [facility] Comment on above: Performed By: #### L [id number] #### [email or web address] ([facility]) [address] [place] [address] Basophils/100 WBC (Bld) 0.3 % Normal 0.0-1.0 [facility] Comment on above: Performed By: #### L [id number] #### [facility] [address] [place] [address] Eosinophils (Bld) [#/Vol] 0.00 10*3/uL Normal 0.00-0.50 [facility] Comment on above: Performed By: #### L [id number] #### [facility] ([facility]) [address] [place] [address] Eosinophils/100 WBC (Bld) 0.0 % Normal 0.0-6.0 [facility] Comment on above: Performed By: #### L [id number] #### [facility] ([facility]) [address] [place] [address] Erythrocyte distribution width (RBC) [Ratio] 12.6 % Normal 11.5-15.0 [facility] Comment on above: Performed By: #### L [id number] #### [facility] ([facility]) [address] [place] [address] ERYTHROCYTE MEAN CORPUSCULAR HEMOGLOBIN CONCENTRATION (G/DL) BY AUTOMATED 33.2 g/dL Normal 32.0-35.0 [facility] Comment on above: Performed By: #### L [id number] #### [facility] ([facility]) [address] [place] [address] Hematocrit (Bld) [Volume fraction] 29.8 % Low 36.0-48.0 [facility] Comment on above: Performed By: #### L [id number] #### [facility] ([facility] [address] [place] [address] Hemoglobin (Bld) [Mass/Vol] 9.9 g/dL Low 12.0-15.0 [facility] Comment on above: Performed By: #### L [id number] #### [facility] ([facility]) [address] [place] [address] Immature granulocytes (Bld) [#/Vol] 0.04 10*3/uL Normal 0.00-0.20 [facility] Comment on above: Performed By: #### L [id number] #### [facility] ([facility]) [address] [place] [address] Immature granulocytes/100 WBC (Bld) 0.4 % Normal 0.0-1.0 [facility] Comment on above: Performed By: #### L [id number] #### [facility] ([facility]) [address] [place] [address] Lymphocytes (Bld) [#/Vol] 0.97 10*3/uL Low 1.20-4.00 [facility] Comment on above: Performed By: #### L [id number] #### [facility] ([facility]) [address] [place] [address] Lymphocytes/100 WBC (Bld) 10.7 % Low 20.0-45.0 [facility] Comment on above: Performed By: #### L [id number] #### [facility] ([facility]) [address] [place] [address] MCH (RBC) [Entitic mass] 30.4 pg Normal 27.0-33.0 [facility] Comment on above: Performed By: #### L [id number] #### [facility] ([facility]) [address] [place] [address] MCV (RBC) [Entitic vol] 91.4 fL Normal 82.0-98.0 [facility] Comment on above: Performed By: #### L [id number] #### [facility] ([facility]) [address] [place] [address] Monocytes (Bld) [#/Vol] 0.46 10*3/uL Normal 0.10-1.00 [facility] Comment on above: Performed By: #### L [id number] #### [facility] ([facility] [address] [place] [address] Monocytes/100 WBC (Bld) 5.1 % Normal 5.0-12.0 [facility] Comment on above: Performed By: #### L [id number] #### [facility] ([facility]) [address] [place] [address] Neutrophils (Bld) [#/Vol] 7.55 10*3/uL Normal 1.60-7.60 [facility] Comment on above: Performed By: #### L [id number] #### [facility] ([facility]) [address] [place] [address] Neutrophils/100 WBC (Bld) 83.5 % High 40.0-72.0 [facility] Comment on above: Performed By: #### L [id number] #### [facility] ([facility]) [address] [place] [address] NRBC (PER 100 WBCS) BY AUTOMATED COUNT 0.0 % Normal 0 [facility] Comment on above: Performed By: #### L [id number] #### [facility] ([facility]) [address] [place] [address] PLATELETS (10*3/UL) IN BLOOD AUTOMATED COUNT 378 10*3/uL Normal 150-400 [facility] Comment on above: Performed By: #### L [id number] #### [facility] ([facility]) [address] [place] [address] RBC (Bld) [#/Vol] 3.26 10*6/uL Low 3.80-5.00 [facility] Comment on above: Performed By: #### L [id number] #### [facility] ([facility]) [address] [place] [address] WBC (Bld) [#/Vol] 9.05 10*3/uL Normal 4.00-10.60 [facility] Comment on above: Performed By: #### L [id number] #### [facility] ([facility]) [address] [place] [address] CHLAMYDIA TRACHOMATIS AND NE ISSERIA GONORRHEA, TMAon 10-05-2023 CHLAMYDIA TRACHOMATIS DNA PROBE (PRESENCE) IN UNSP SPEC Negative Normal Negative [facility] Comment on above: Result Comment: No C hlamydia trachomatis rRNA Detected. The Aptima Combo 2 Assay is a FDA approved target amplification nucleic acid probe test that utilizes target capture for the in vitro qualitative detection and differentiation of ribosomal RNA (rRNA) from Chlamydia trachomatis (CT) and/or Neisseria gonorrhoeae (GC) to aid the diagnosis of chlamydial and/or gonococcal urogenital disease using the Sterling System. The Aptima Combo 2 Assay involves target capture, target amplification by Mucker Cofferdam-Mediated Amplification (TMA), and the detection of the amplification products (amplicon) by the Hybridization Protection Assay (HPA). The internal process controls of the Sterling System monitor the target capture, amplification, and detection steps of the assay, this is not intended to control for sampling adequacy. Performed By: #### L [id number] ####[facility] (BEAKER)[address] [facility] [place] [address] NEISSERIA GONORRHOEAE DNA PROBE (PRESENCE) IN UNSP SPEC Negative Normal Negative [facility] Comment on above: Result Comment: No N eisseria gonorrhoeae rRNA Detected. The Aptima Combo 2 Assay is a FDA approved target amplification nucleic acid probe test that utilizes target capture for the in vitro qualitative detection and differentiation of ribosomal RNA (rRNA) from Chlamydia trachomatis (CT) and/or Neisseria gonorrhoeae (GC) to aid the diagnosis of chlamydial and/or gonococcal urogenital disease using the Sterling System. The Aptima Combo 2 Assay involves target capture, target amplification by Mucker Cofferdam-Mediated Amplification (TMA), and the detection of the amplification products (amplicon) by the Hybridization Protection Assay (HPA). The internal process controls of the Sterling System monitor the target capture, amplification, and detection steps of the assay, this is not intended to control for sampling adequacy. Performed By: #### L [id number] ####[facility] (BEAKER)[address] [facility] [place] [address] CHLAMYDIA TRACHOMATIS DNA PROBE (PRESENCE) IN UNSP SPEC Negative Normal Negative [facility] Comment on above: Result Comment: No C hlamydia trachomatis rRNA Detected. The Aptima Combo 2 Assay is a FDA approved target amplification nucleic acid probe test that utilizes target capture for the in vitro qualitative detection and differentiation of ribosomal RNA (rRNA) from Chlamydia trachomatis (CT) and/or Neisseria gonorrhoeae (GC) to aid the diagnosis of chlamydial and/or gonococcal urogenital disease using the Sterling System. The Aptima Combo 2 Assay involves target capture, target amplification by Mucker Cofferdam-Mediated Amplification (TMA), and the detection of the amplification products (amplicon) by the Hybridization Protection Assay (HPA). The internal process controls of the Sterling System monitor the target capture, amplification, and detection steps of the assay, this is not intended to control for sampling adequacy. Performed By: #### L [id number] ####[facility] ([facility])[address] [place] [address] NEISSERIA GONORRHOEAE DNA PROBE (PRESENCE) IN UNSP SPEC Negative Normal Negative [facility] Comment on above: Result Comment: No N eisseria gonorrhoeae rRNA Detected. The Aptima Combo 2 Assay is a FDA approved target amplification nucleic acid probe test that utilizes target capture for the in vitro qualitative detection and differentiation of ribosomal RNA (rRNA) from Chlamydia trachomatis (CT) and/or Neisseria gonorrhoeae (GC) to aid the diagnosis of chlamydial and/or gonococcal urogenital disease using the Sterling System. The Aptima Combo 2 Assay involves target capture, target amplification by Mucker Cofferdam-Mediated Amplification (TMA), and the detection of the amplification products (amplicon) by the Hybridization Protection Assay (HPA). The internal process controls of the Sterling System monitor the target capture, amplification, and detection steps of the assay, this is not intended to control for sampling adequacy. Performed By: #### L [id number] ####[facility] ([facility])[address] [place] [address] COMPREHENSIVE METABOLIC PANE Gerardo 10-05-2023 Albumin [Mass/Vol] 4.0 g/dL Normal 3.5-5.7 [facility] Comment on above: Performed By: #### L [id number] #### [facility] ([facility]) [address] [place] [address] ALP [Catalytic activity/Vol] 51 U/L Normal 34-104 [facility] Comment on above: Performed By: #### L [id number] #### [facility] ([facility]) [address] [place] [address] ALT [Catalytic activity/Vol] 7 U/L Normal 7-52 [facility] Comment on above: Performed By: #### L [id number] #### [facility] ([facility] [address] [place] [address] Anion gap [Moles/Vol] 12 mmol/L Normal 7-20 [facility] Comment on above: Performed By: #### L [id number] #### [facility] ([facility]) [address] [place] [address] AST [Catalytic activity/Vol] 9 U/L Low 13-39 [facility] Comment on above: Performed By: #### L [id number] #### [facility] ([facility]) [address] [place] [address] Bilirubin [Mass/Vol] 0.2 mg/dL Low 0.3-1.0 [facility] Comment on above: Performed By: #### L [id number] #### [facility] ([facility]) [address] [place] [address] Calcium [Mass/Vol] 8.2 mg/dL Low 8.6-10.3 [facility] Comment on above: Performed By: #### L [id number] #### [facility] ([facility] [address] [place] [address] Chloride [Moles/Vol] 102 mmol/L Normal 98-107 [facility] Comment on above: Performed By: #### L [id number] #### [facility] [[email or web address] ([facility] [address] [place] [address] CO2 [Moles/Vol] 28 mmol/L Normal 21-31 [facility] Comment on above: Performed By: #### L [id number] #### [facility] [[email or web address] ([facility]AKER) [address] [place] [address] Creatinine [Mass/Vol] 1.73 mg/dL High 0.60-1.20 [facility] Comment on above: Performed By: #### L [id number] #### [facility] ([facility]) [address] [place] [address] GLOMERULAR FILTRATION RATE ML/MIN/1.73 SQ M.PREDICTED 40.0 mL/min/1.73m*2 Low >60.0 [facility] Comment on above: Result Comment: The [facility]???s estimated glomerular filtration rate (eGFR) will [...] group of individuals. Performed By: #### L [id number] #### [facility] ([facility]) [address] [place] [address] Glucose [Mass/Vol] 109 mg/dL High 70-100 [facility] Comment on above: Performed By: #### L [id number] #### [facility] ([facility]) [address] [place] [address] Potassium [Moles/Vol] 4.0 mmol/L Normal 3.5-5.1 [facility] Comment on above: Performed By: #### L [id number] #### [facility] ([facility]) [address] [facility] [place] [address] Protein [Mass/Vol] 6.6 g/dL Normal 6.0-8.3 [facility] Comment on above: Performed By: #### L [id number] #### [facility] ([facility]) [address] [address] Sodium [Moles/Vol] 138 mmol/L Normal 136-145 [facility] Comment on above: Performed By: #### L [id number] #### [facility] ([facility]) [address] [place] [address] Urea nitrogen [Mass/Vol] 26 mg/dL High 7-25 [facility] Comment on above: Performed By: #### L [id number] #### [facility] ([facility]) [address] [place] [address] UREA NITROGEN/CREATININE (MASS RATIO) IN SER/PLAS 15.[address] [facility] Comment on above: Performed By: #### L [id number] #### [facility] ([facility]) [address] [place] [address] HIV COMBO 4Gon 10-05-2023 HIV COMBO 4G Negative Normal Negative [facility] Comment on above: Performed By: #### L [id number] #### [facility] ([facility]) [address] [place] [address] Labon 10-05-2023 Lab [id number] Blanca Rudolph 1990 F Date Provider Department [place] 10/05/2023 [id number] RESOURCE [facility] DRAW [facility] Family History Problem Relation Age of Onset Hypertension Mother Hypertension Mother's Sister Crohn's disease Mother's Sister Hypertension Maternal Grandmother Breast cancer Maternal Grandmother Kidney disease Other Migraines Other Family Status - Relation Status Age at Mother Mother's Sister Maternal Grandmother Other Normal [facility] Office Visiton 10-05-2023 Follow-up visit [id number] Blanca Rudolph 1990 Date Provider Department Center 10/05/2023 [facility] Family History Problem Relation Age of Onset Hypertension Mother Hypertension Mother's Sister Crohn's disease Mother's Sister Hypertension Maternal Grandmother Breast cancer Maternal Grandmother Kidney disease Other Migraines Other Family Status - Relation Status Age at Mother Mother's Sister Maternal Grandmother Other Level of Service:34667 [place] OFFICE/OUTPATIENT ESTABLISHED MOD MDM 30 MIN Reason for Visit and Comments: Exposure to HIV [Other] Normal [facility] RPRon 10-05-2023 REAGIN AB PRESENCE IN SERUM BY RPR Reactive Abnormal Nonreactive [facility] Comment on above: Performed By: #### L [id number] #### [facility] ([facility]ER) [address] [place] [address] RPR QUANTITATIVEon RPR QUANT 1:16 High <1:1 [facility] Comment on above: Order Comment: Previ ously Reactive FTA on 04/06/2023. Result Comment: The syphilis screen is a treponemal assay; patients with previously treated syphilis could be reactive on this assay, but nonreactive on the RPR Quant assay. Performed By: #### L [id number] #### [facility] ([facility]) [address] [place] [address] URINALYSISon 10-05-2023 BILIRUBIN, TOTAL PRESENCE IN URINE Negative Normal Negative [facility] Comment on above: Performed By: #### L [id number] #### [facility] ([facility]) [address] [place] [address] Clarity (U) Slightly Cloudy Abnormal Clear [facility] Comment on above: Performed By: #### L [id number] #### [facility] ([facility]) [address] [place] [address] Color (U) Yellow Normal Yellow [facility] Comment on above: Performed By: #### L [id number] #### [facility] ([facility]) [address] [place] [address] Glucose (U) [Mass/Vol] Negative Normal Negative [facility] Comment on above: Performed By: #### L [id number] #### [facility] ([facility]) [address] [place] [address] HEMOGLOBIN PRESENCE IN URINE Large Abnormal Negative [facility] Comment on above: Performed By: #### L [id number] #### [facility] ([facility]) [address] [place] [address] Ketones Ql (U) Negative Normal Negative [facility] Comment on above: Performed By: #### L [id number] #### [facility] ([facility]) [address] [place] [address] LEUKOCYTE ESTERASE PRESENCE IN URINE BY TEST STRIP Moderate Abnormal Negative [facility] Comment on above: Performed By: #### L [id number] #### [facility] [[email or web address]] [facility] ([facility]) [address] [place] [address] NITRITE PRESENCE IN URINE Negative Normal Negative [facility] Comment on above: Performed By: #### L [id number] #### [facility] ([facility] [address] [place] [address] pH (U) 5.0 [pH] Normal 5.0-8.0 [facility] Comment on above: Performed By: #### L [id number] #### [facility] ([facility]) [address] [place] [address] Protein (U) [Mass/Vol] 100 mg/dL Abnormal Negative [facility] Comment on above: Performed By: #### L [id number] #### [facility] ([facility]) [address] [place] [address] Specific gravity (U) [Rel density] 1.012 Low 1.015-1.020 [facility] Comment on above: Performed By: #### L [id number] #### [facility] ([facility]) [address] [place] [address] URINALYSIS MICROSCOPICon AMORPHOUS CRYSTALS (#/HPF) IN URINE Few Abnormal None Seen [facility] Comment on above: Performed By: #### L [id number] #### [email or web address] ([facility] [address] [place] [address] CASTS IN URINE Present Abnormal None Seen [facility] Comment on above: Performed By: #### L [id number] #### [facility] [[email or web address] ([facility]) [address] [place] [address] CRYSTALS IN URINE Normal [facility] Comment on above: Performed By: #### L [id number] #### [facility] [email or web address] ([facility]) [address] [place] [address] HYALINE CASTS /LPF IN URINE SEDIMENT BY MICROSCOPY 4 /LPF High <1 [facility] Comment on above: Performed By: #### L [id number] #### [facility] ([facility]) [address] [place] [address] MUCUS (#/HPF) IN URINE SEDIMENT Occasional Normal None Seen, Occasional, Few [facility] Comment on above: Performed By: #### L [id number] #### [facility] ([facility]) [address] [place] [address] RBC (#/HPF) IN URINE SEDIMENT 21-[address] [facility] Comment on above: Performed By: #### L [id number] #### [facility] ([facility]) [address] [place] [address] SQUAMOUS EPITHELIAL CELLS (#/HPF) IN URINE SEDIMENT Many Abnormal None Seen, Occasional [facility] Comment on above: Performed By: #### L [id number] #### [facility] ([facility]) [address] [place] [address] WBC (LEUKOCYTE) (#/HPF) IN URINE SEDIMENT 21-[address] [facility] Comment on above: Performed By: #### L [id number] #### [facility] ([facility]) [address] [place] [address] CBC AND AUTO DIFFon 10-02-19 24 ABSOLUTE BASOPHIL 0.0 X10E9/L Normal 0.0-0.2 [facility] Comment on above: Performed By: #### Nataliia ARGUELLES, 00392-4, [facility], 1987-08 ####[facility] ([id number])[address] [address] ABSOLUTE NEUTROPHIL 6.7 X10E9/L High 1.5-6.6 [facility] Comment on above: Performed By: #### Nataliia ARGUELLES, 53417-4, CMP, 1987-08 ####[facility] ([id number])[address] [address] Basophils/100 WBC (Bld) 0.3 % Normal [facility] Comment on above: Performed By: #### Nataliia ARGUELLES, 73944-5, [facility], 1987-08 ####[facility] ([id number])[address] [address], [place] [address] Eosinophils (Bld) [#/Vol] 0.0 10*3/uL Normal 0.0-0.4 [facility] Comment on above: Performed By: #### Nataliia ARGUELLES, 67406-1, [facility], 1987-08 ####[facility] ([id number])[address] [address], [place] [address] Eosinophils/100 WBC (Bld) 0.4 % Normal [facility] Comment on above: Performed By: #### Nataliia ARGUELLES, 63313-5, [facility], 1987-08 ####[facility] ([id number])[address] [address], [place] [address] Erythrocyte distribution width (RBC) [Ratio] 13.2 % Normal 11.5-15.0 [facility] Comment on above: Performed By: #### Nataliia ARGUELLES 07660-4, [facility], 1987-08 ####[facility] ([id number])[address] [address], [place] [address] Hematocrit (Bld) [Volume fraction] 29.5 % Low 35-47 [facility] Comment on above: Performed By: #### Nataliia ARGUELLES, 88428-8, [facility], 1987-08 ####[facility] ([id number])[address] [address], [place] [address] Hemoglobin (Bld) [Mass/Vol] 10.0 g/dL Low 11.7-15.5 [facility] Comment on above: Performed By: #### Nataliia ARGUELLES, 32810-3, [facility], 1987-08 ####[facility] ([id number])[address] [address], [place] [address] Lymphocytes (Bld) [#/Vol] 0.6 10*3/uL Low 1.0-3.5 [facility] Comment on above: Performed By: #### Nataliia ARGUELLES 18657-6, [facility], 1987-08 ####[facility] ([id number])[address] [address] [place] [address] Lymphocytes/100 WBC (Bld) 7.6 % Normal [facility] Comment on above: Performed By: #### Nataliia ARGUELLES 84809-8, [facility], 1987-08 ####[facility] ([id number])[address] [address] [place] [address] MCH (RBC) [Entitic mass] 31.0 pg Normal 27-34 [facility] Comment on above: Performed By: #### Nataliia ARGUELLES 41841-5, [facility], 1987-08 ####[facility] ([id number])[address] [address] MCHC (RBC) [Mass/Vol] 33.8 g/dL Normal 32-36 [facility] Comment on above: Performed By: #### Nataliia ARGUELLES 19979-6, [facility], 1987-08 ####[facility] ([id number])[address] [address] MCV (RBC) [Entitic vol] 92 fL Normal 80-100 [facility] Comment on above: Performed By: #### Nataliia ARGUELLES 73369-4, [facility], 1987-08 ####[facility] ([id number])[address] [address] Monocytes (Bld) [#/Vol] 0.4 10*3/uL Normal 0-0.9 [facility] Comment on above: Performed By: #### Nataliia ARGUELLES, 39407-4, [facility], 1987-08 ####[facility] ([id number])[address] [address] [place] [address] Monocytes/100 WBC (Bld) 5.8 % Normal [facility] Comment on above: Performed By: #### Nataliia ARGUELLES, 89870-6, [facility], 1987-08 ####[facility] ([id number])[address] [address] [place] [address] Neutrophils/100 WBC (Bld) 85.9 % Normal [facility] Comment on above: Performed By: #### Nataliia ARGUELLES, 77780-6, [facility], 1987-08 ####[facility] ([id number])[address] [address] [place] [address] Platelet mean volume (Bld) [Entitic vol] 8.1 fL Normal 7-12 [facility] Comment on above: Performed By: #### Nataliia ARGUELLES, 76583-0, [facility], 1987-08 ####[facility] ([id number])[address] [address] [place] [address] Platelets (Bld) [#/Vol] 322 10*3/uL Normal 150-450 [facility] Comment on above: Performed By: #### Nataliia ARGUELLES, 29844-1, [facility], 1987-08 ####[facility] ([id number])[address] [address] RBC COUNT 3.21 X10E12/L Low 3.80-5.20 [facility] Comment on above: Performed By: #### Nataliia ARGUELLES, 21796-4, [facility], 1987-08 ####[facility] ([id number])[address] [address] WBC (Bld) [#/Vol] 7.8 10*3/uL Normal 4.0-11.0 [facility] Comment on above: Performed By: #### Nataliia ARGUELLES, 28293-6, [facility], 1987-08 ####[facility] ([id number])[address], [address], [place] [address] COMPREHENSIVE METABOLIC PANE Gerardo 06-04-2024 Albumin [Mass/Vol] 3.9 g/dL Normal 3.2-5.3 [facility] Comment on above: Performed By: #### Nataliia ARGUELLES, 68725-8, [facility], 1987-08 ####[facility] ([id number])[address], [address], [place] [address] ALP [Catalytic activity/Vol] 44 U/L Normal 39-130 [facility] Comment on above: Performed By: #### C BCA, 81266-7, [facility], 1987-08 ####[facility] ([id number])[address], [address], [place] [address] ALT [Catalytic activity/Vol] 9 U/L Normal 0-31 [facility] Comment on above: Performed By: #### Nataliia ARGUELLES, 84624-3, [facility], 1987-08 ####[facility] ([id number])[address], [address], [place] [address] Anion gap [Moles/Vol] 10 mmol/L Normal 5-15 [facility] Comment on above: Performed By: #### Nataliia BCA, 44053-4, [facility], 1987-08 ####[facility] ([id number])[address], [address], [place] [address] AST [Catalytic activity/Vol] 13 U/L Normal 0-41 [facility] Comment on above: Performed By: #### C BCA, 04492-3, [facility], 1987-08 ####[facility] ([id number])[address], [address], [place] [address] Bilirubin [Mass/Vol] 0.5 mg/dL Normal 0.3-1.2 [facility] Comment on above: Performed By: #### C BCA, 49725-8, [facility], 1987-08 ####[facility] ([id number])[address] [address] Calcium [Mass/Vol] 8.9 mg/dL Normal 8.5-10.5 [facility] Comment on above: Performed By: #### C KINDRA, 13814-9, [facility], 1987-08 ####[facility] ([id number])[address] [address] Chloride [Moles/Vol] 103 mmol/L Normal 98-109 [facility] Comment on above: Performed By: #### C KINDRA, 27727-9, [facility], 1987-08 ####[facility] ([id number])[address] [address] CO2 [Moles/Vol] 31 mmol/L Normal 22-32 [facility] Comment on above: Performed By: #### C KINDRA, 64976-3, [facility], 1987-08 ####[facility] ([id number])[address] [address] Creatinine [Mass/Vol] 1.71 mg/dL High 0.40-1.00 [facility] Comment on above: Result Comment: METH OD TRACEABLE TO IDMS STANDARD Performed By: #### C KINDRA, 57457-2, [facility], 1987-08 ####[facility] ([id number])[address] [address] GFR/1.73 sq M.predicted among non-blacks MDRD (S/P/Bld) [Vol rate/Area] 41 mL/min/{1.73_m2} Low >59 [facility] Comment on above: Result Comment: Repo rted eGFR is based on theCKD-EPI 2020 equation that doesnot use a race coefficient. Performed By: #### C KINDRA, 56834-8, [facility], 1987-08 ####[facility] ([id number])[address] [address] Glucose [Mass/Vol] 112 mg/dL High 65-99 [facility] Comment on above: Performed By: #### Nataliia ARGUELLES, 64004-1, [facility], 1987-08 ####[facility] ([id number])[address], [place] [address] Potassium [Moles/Vol] 3.7 mmol/L Normal 3.5-5.0 [facility] Comment on above: Performed By: #### Nataliia ARGUELLES, 04098-2, [facility], 1987-08 ####[facility] ([id number])[address], [address], [place] [address] Protein [Mass/Vol] 6.5 g/dL Normal 6.0-8.0 [facility] Comment on above: Performed By: #### Nataliia ARGUELLES, 19811-1, [facility], 1987-08 ####[facility] ([id number])[address], [address], [place] [address] Sodium [Moles/Vol] 144 mmol/L Normal 134-146 [facility] Comment on above: Performed By: #### Nataliia ARGUELLES, 72213-3, [facility], 1987-08 ####[facility] ([id number])[address] [address], [place] [address] Urea nitrogen [Mass/Vol] 33 mg/dL High 5-23 [facility] Comment on above: Performed By: #### Nataliia ARGUELLES, 85547-8, [facility], 1987-08 ####[facility] ([id number])[address] [address], [place] [address] CRP [Mass/Vol]on 10-02-2023 C REACTIVE PROTEIN 1.1 mg/dL High 0.000-0.744 [facility] Comment on above: Performed By: #### Nataliia ARGUELLES, 52322-7, [facility], 1987-08 ####[facility] ([id number])[address], [place] [address] ESR Photometric method (Bld) [Velocity]on 10-02-2023 ESR, ERYTHROCYTE SEDIMENTATION RATE 6 mm/h Normal 0-20 [facility] Comment on above: Performed By: #### C BCA, 86922-4, CMP, 1987- ####[facility] ([id number])[address] [address], [place] [address] PROTEIN CREAT RATIOon 2023 RANDOM URINE PROTEIN 70 mg/L Normal <120 [facility] Comment on above: Performed By: #### U PCR ####[facility] ([id number])[address] [address] U/PRO/DISABILITY MANAGER RATIO CALC 0.15 Normal <0.2 [facility] Comment on above: Result Comment: Neph rotic Syndrome is associated with ratios >3.5 Performed By: #### U PCR ####[facility] ([id number])[address] [address], [place] [address] URINE CREATININE,RDM 45.67 mg/dL Normal [facility] Comment on above: Performed By: #### U PCR ####[facility] ([id number])[address] [address], [place] [address] URINALYSISon 10-02-2023 Bilirubin Ql (U) Negative Normal NEG [facility] Comment on above: Performed By: #### U A ####[facility] ([id number])[address] [address], [place] [address] BLOOD/HGB MODERATE Abnormal NEG [facility] Comment on above: Performed By: #### U A ####[facility] ([id number])[address] [address], [place] [address] Color (U) YELLOW Normal YELLOW [facility] Comment on above: Performed By: #### U A ####[facility] ([id number])[address], [place] [address] Glucose Ql (U) Negative Normal NEG [facility] Comment on above: Performed By: #### U A ####[facility] ([id number])[address], [place] [address] Ketones Ql (U) Negative Normal NEG [facility] Comment on above: Performed By: #### U A ####[facility] ([id number])[address], [place] [address] Leukocyte esterase Test strip Ql (U) Negative Normal NEG [facility] Comment on above: Performed By: #### U A ####[facility] ([id number])[address], [place] [address] MUCOUS PRESENT Abnormal NONE [facility] Comment on above: Performed By: #### U A ####[facility] ([id number])[address], [place] [address] Nitrite Ql (U) Negative Normal NEG [facility] Comment on above: Performed By: #### U A ####[facility] ([id number])[address], [place] [address] pH (U) 6.0 [pH] Normal 5.0-8.5 [facility] Comment on above: Performed By: #### U A ####[facility] ([id number])[address], [place] [address] Protein Ql (U) Negative Normal NEG [facility] Comment on above: Performed By: #### U A ####[facility] ([id number])[address], [place] [address] R.B.CELLS 19 /hpf High 0-5 [facility] Comment on above: Performed By: #### U A ####[facility] ([id number])[address], [place] [address] Specific gravity (U) [Rel density] 1.009 Normal 1.003-1.035 [facility] Comment on above: Performed By: #### U A ####[facility] ([id number])[address] [address] SQUAMOUS EPITHELIUM 1 /hpf Normal 0-5 [facility] Comment on above: Performed By: #### U A ####[facility] ([id number])[address] [address] [address] TURBIDITY CLEAR Normal CLEAR [facility] Comment on above: Performed By: #### U A ####[facility] ([id number])[address] [address] [address] Urobilinogen (U) [Mass/Vol] mg/dL Normal <1.1 [facility] Comment on above: Performed By: #### U A ####[facility] ([id number])[address] [address] [place] [address] W.B.CELLS 1 /hpf Normal 0-5 [facility] Comment on above: Performed By: #### U A ####[facility] ([id number])[address], [place] [address] Orders Onlyon 09-27-2023 Orders Only [id number] Blanca Rudolph 1990 F Date Provider Department Center 09/27/2023 [facility] Family History Problem Relation Age of Onset Hypertension Mother Hypertension Mother's Sister Crohn's disease Mother's Sister Hypertension Maternal Grandmother Breast cancer Maternal Grandmother Kidney disease Other Migraines Other Family Status - Relation Status Age at Mother Mother's Sister Maternal Grandmother Other Normal [facility] Refillon 09-07-2023 Refill [id number] Blanca Rudolph Jasmina 1990 F Date Provider Department Center 09/07/2023 [facility] Family History Problem Relation Age of Onset Hypertension Mother Hypertension Mother's Sister Crohn's disease Mother's Sister Hypertension Maternal Grandmother Breast cancer Maternal Grandmother Kidney disease Other Migraines Other Family Status - Relation Status Age at Mother Mother's Sister Maternal Grandmother Other Reason for Visit and Comments: Med Refill [[id number]] [facility] Ambulatory Visit Summaryon 0 08-23-2023 Ambulatory Visit [...] mg Dis Tab) potassium chloride (Potassium Chloride (Ibg-Mbjm-Qfu M20) 20 mEq oral tablet, extended release) [...] CYNTHIA GALLARDO PA-C Where: [facility] Normal [facility] Gastroenterology Office/Clin ic Noteon 08-23-2023 Gastroenterology [...] took omeprazole in the past but her zoning assistant told her that it was not for [...] smoker Frequent UTI Gas pain Gastritis 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 Normal [facility] Comment on above: Result Comment: Elec tronically Signed By: Lino XIONG, Saw Delarosa\.br\Date and Time Signed: 08/23/23 13:18 EDT\.br\Electronically Co-Signed By: Maite Iniguez MA\.br\Date and Time Co-Signed: 08/23/23 13:15 EDT CBC AND AUTO DIFFon 08-22-19 ABSOLUTE BASOPHIL 0.0 X10E9/L Normal 0.0-0.2 [facility] on above: Performed By: #### C BCA, CMP ####[facility] ([id number])[address] [place] [address], [place] [address] ABSOLUTE NEUTROPHIL 7.2 X10E9/L High 1.5-6.6 [facility] Comment on above: Performed By: #### C BCA, CMP ####[facility] ([id number])[address] [place] [address] Basophils/100 WBC (Bld) 0.4 % Normal [facility] Comment on above: Performed By: #### C KINDRA, CMP ####[facility] ([id number])[address] [place] [address] Eosinophils (Bld) [#/Vol] 0.0 10*3/uL Normal 0.0-0.4 [facility] Comment on above: Performed By: #### C KINDRA, CMP ####[facility] ([id number])[address] [place] [address] Eosinophils/100 WBC (Bld) 0.3 % Normal [facility] Comment on above: Performed By: #### C KINDRA, CMP ####[facility] ([id number])[address] [place] [address] Erythrocyte distribution width (RBC) [Ratio] 13.4 % Normal 11.5-15.0 [facility] Comment on above: Performed By: #### C KINDRA, CMP ####[facility] ([id number])[address] [place] [address] Hematocrit (Bld) [Volume fraction] 36.3 % Normal 35-47 [facility] Comment on above: Performed By: #### C KINDRA, CMP ####[facility] ([id number])[address] [place] [address] Hemoglobin (Bld) [Mass/Vol] 12.8 g/dL Normal 11.7-15.5 [facility] Comment on above: Performed By: #### C BCA, CMP ####[facility] ([id number])[address] [place] [address] Lymphocytes (Bld) [#/Vol] 2.1 10*3/uL Normal 1.0-3.5 [facility] Comment on above: Performed By: #### C KINDRA, CMP ####[facility] ([id number])[address] [place] [address] Lymphocytes/100 WBC (Bld) 21.2 % Normal [facility] Comment on above: Performed By: #### C BCA, CMP ####[facility] ([id number])[address] [place] [address] MCH (RBC) [Entitic mass] 31.9 pg Normal 27-34 [facility] Comment on above: Performed By: #### C KINDRA, CMP ####[facility] ([id number])[address] [place] [address] MCHC (RBC) [Mass/Vol] 35.2 g/dL Normal 32-36 [facility] Comment on above: Performed By: #### C BCA, CMP ####[facility] ([id number])[address] [place] [address] MCV (RBC) [Entitic vol] 91 fL Normal 80-100 [facility] Comment on above: Performed By: #### C BCA, CMP ####[facility] ([id number])[address] [place] [address] Monocytes (Bld) [#/Vol] 0.7 10*3/uL Normal 0-0.9 [facility] Comment on above: Performed By: #### C BCA, CMP ####[facility] ([id number])[address] [place] [address] Monocytes/100 WBC (Bld) 7.1 % Normal [facility] Comment on above: Performed By: #### C BCA, CMP ####[facility] ([id number])[address] [place] [address] Neutrophils/100 WBC (Bld) 71.0 % Normal [facility] Comment on above: Performed By: #### C KINDRA, CMP ####[facility] ([id number])[address] [place] [address] 35838 Platelet mean volume (Bld) [Entitic vol] 7.2 fL Normal 7-12 [facility] Comment on above: Performed By: #### C BCA, CMP ####[facility] ([id number])[address] [place] [address] 61892 Platelets (Bld) [#/Vol] 296 10*3/uL Normal 150-450 [facility] Comment on above: Performed By: #### C KINDRA, CMP ####[facility] ([id number])[address] [place] [address] 06112 RBC COUNT 4.01 X10E12/L Normal 3.80-5.20 [facility] Comment on above: Performed By: #### C KINDRA, CMP ####[facility] ([id number])[address] [place] [address] 25215 WBC (Bld) [#/Vol] 10.1 10*3/uL Normal 4.0-11.0 [facility] Comment on above: Performed By: #### C KINDRA, CMP ####[facility] ([id number])[address] [place] [address] 71446 COMPREHENSIVE METABOLIC PANE Gerardo 08-22-2023 Albumin [Mass/Vol] 3.8 g/dL Normal 3.2-5.3 [facility] Comment on above: Performed By: #### C BCA, CMP ####[facility] ([id number])[address] [place] [address] 43833 ALP [Catalytic activity/Vol] 43 U/L Normal 39-130 [facility] Comment on above: Performed By: #### C BCA, CMP ####[facility] ([id number])[address] [place] [address], [place] [address] ALT [Catalytic activity/Vol] 12 U/L Normal 0-31 [facility] Comment on above: Performed By: #### C BCA, CMP ####[facility] ([id number])[address] [place] [address], [place] [address] Anion gap [Moles/Vol] 8 mmol/L Normal 5-15 [facility] Comment on above: Performed By: #### C BCA, CMP ####[facility] ([id number])[address] [place] [address], [place] [address] AST [Catalytic activity/Vol] 12 U/L Normal 0-41 [facility] Comment on above: Performed By: #### C BCA, CMP ####[facility] ([id number])[address] [place] [address], [place] [address] Bilirubin [Mass/Vol] 0.6 mg/dL Normal 0.3-1.2 [facility] Comment on above: Performed By: #### C BCA, CMP ####[facility] ([id number])[address] [place] [address], [place] [address] Calcium [Mass/Vol] 8.2 mg/dL Low 8.5-10.5 [facility] Comment on above: Performed By: #### C BCA, CMP ####[facility] ([id number])[address] [place] [address], [place] [address] Chloride [Moles/Vol] 96 mmol/L Low 98-109 [facility] Comment on above: Performed By: #### C BCA, CMP ####[facility] ([id number])[address] [place] [address], [place] [address] CO2 [Moles/Vol] 31 mmol/L Normal 22-32 [facility] Comment on above: Performed By: #### C BCA, CMP ####[facility] ([id number])[address] [place] [address] [place] [address] Creatinine [Mass/Vol] 1.54 mg/dL High 0.40-1.00 [facility] Comment on above: Result Comment: METH OD TRACEABLE TO IDMS STANDARD Performed By: #### C BCA, CMP ####[facility] ([id number])[address] [place] [address], [place] [address] GFR/1.73 sq M.predicted among non-blacks MDRD (S/P/Bld) [Vol rate/Area] 46 mL/min/{1.73_m2} Low >59 [facility] Comment on above: Result Comment: Repo rted eGFR is based on theCKD-EPI 2020 equation that doesnot use a race coefficient. Performed By: #### C BCA, CMP ####[facility] ([id number])[address] [place] [address] Glucose [Mass/Vol] 91 mg/dL Normal 65-99 [facility] Comment on above: Performed By: #### C BCA, CMP ####[facility] ([id number])[address] [place] [address] [place] [address] Potassium [Moles/Vol] 3.5 mmol/L Normal 3.5-5.0 [facility] Comment on above: Performed By: #### C BCA, CMP ####[facility] ([id number])[address] [place] [address] [place] [address] Protein [Mass/Vol] 6.6 g/dL Normal 6.0-8.0 [facility] Comment on above: Performed By: #### C BCA, CMP ####[facility] ([id number])[address] [place] [address] [place] [address] Sodium [Moles/Vol] 135 mmol/L Normal 134-146 [facility] Comment on above: Performed By: #### C BCA, CMP ####[facility] ([id number])[address] [place] [address] Urea nitrogen [Mass/Vol] 38 mg/dL High 5-23 [facility] Comment on above: Performed By: #### C BCA, CMP ####[facility] ([id number])[address] [place] [address] CREATININEon 08-22-2023 Creatinine [Mass/Vol] 1.34 mg/dL High 0.40-1.00 [facility] Comment on above: Result Comment: METH OD TRACEABLE TO IDMS STANDARD Performed By: #### C RT ####[facility] ([id number])[address] [place] [address], [address] [address] GFR/1.73 sq M.predicted among non-blacks MDRD (S/P/Bld) [Vol rate/Area] 54 mL/min/{1.73_m2} Low >59 [facility] Comment on above: Result Comment: Repo rted eGFR is based on theCKD-EPI 2020 equation that doesnot use a race coefficient. Performed By: #### C RT ####[facility] ([id number])[address] [place] [address], [address] [place] [address] HCG ( test) Ql (U)o n 08-22-2023 Beta HCG ( test) Ql (U) Negative Normal NEG [facility] Comment on above: Performed By: #### 2 106-3 ####[facility] ([id number])[address] [place] [address] PROTEIN CREAT RATIOon 2023 RANDOM URINE PROTEIN 120 mg/L High <120 [facility] Comment on above: Performed By: #### U PCR ####[facility] ([id number])[address] [facility], [address] [address] U/PRO/DISABILITY MANAGER RATIO CALC 0.36 High <0.2 [facility] Comment on above: Result Comment: Neph rotic Syndrome is associated with ratios >3.5 Performed By: #### U PCR ####[facility] ([id number])[address] [facility], [address] [place] [address] URINE CREATININE,RDM 33.46 mg/dL Normal [facility] Comment on above: Performed By: #### U PCR ####[facility] ([id number])[address] [facility], [address] [place] [address] SARS/FLU A+B/RSV by NAAT/Mol ecularon 08-22-2023 SARS/FLU A+B/RSV by NAAT/Molecular Normal [facility] Comment on above: Performed By: #### C OVFLR ####[facility] ([id number])[address] [place] [address] URINALYSISon 08-22-2023 Bilirubin Ql (U) Negative Normal NEG [facility] BLOOD/HGB Large Abnormal NEG [facility] Color (U) YELLOW Normal YELLOW [facility] Glucose Ql (U) Negative Normal NEG [facility] Ketones Ql (U) Negative Normal NEG [facility] Leukocyte esterase Test strip Ql (U) MODERATE Abnormal NEG [facility] MUCOUS PRESENT Abnormal NONE [facility] Nitrite Ql (U) Negative Normal NEG [facility] pH (U) 6.5 [pH] Normal 5.0-8.5 [facility] Protein Ql (U) Negative Normal NEG [facility] R.B.CELLS 26 /hpf High 0-5 [facility] Specific gravity (U) [Rel density] 1.010 Normal 1.003-1.035 [facility] SQUAMOUS EPITHELIUM 8 /hpf High 0-5 [facility] TURBIDITY CLEAR Normal CLEAR [facility] Urobilinogen (U) [Mass/Vol] mg/dL Normal <1.1 [facility] W.B.CELLS 9 /hpf High 0-5 [facility] URN MACROSCOPIC NURon 2023 BILIRUBIN BRENDEN Negative Normal NEG [facility] Comment on above: Performed By: #### N UM ####[facility] ([id number])[address] [place] [address], [place] [address] BLOOD/HGB BRENDEN Large Abnormal NEG [facility] Comment on above: Performed By: #### N UM ####[facility] ([id number])[address] [place] [address] [place] [address] GLUCOSE BRENDEN Negative Normal NEG [facility] Comment on above: Performed By: #### N UM ####[facility] ([id number])[address] [place] [address], [place] [address] KETONES BRENDEN Negative Normal NEG [facility] Comment on above: Performed By: #### N UM ####[facility] ([id number])[address] [place] [address], [place] [address] LEUKOCYTE ESTERASE BRENDEN Negative Normal NEG [facility] Comment on above: Performed By: #### N UM ####[facility] ([id number])[address] [place] [address], [place] [address] NITRITE BRENDEN Negative Normal NEG [facility] Comment on above: Performed By: #### N UM ####[facility] ([id number])[address] [place] [address] [place] [address] PH BRENDEN 5.5 Normal 5.0-8.5 [facility] Comment on above: Performed By: #### N UM ####[facility] ([id number])[address] [place] [address] PROTEIN BRENDEN 100 mg/dL Abnormal NEG [facility] Comment on above: Performed By: #### N UM ####[facility] ([id number])[address] [place] [address], [place] [address] SPECIFIC GRAVITY BRENDEN 1.020 Normal 1.003-1.035 [facility] Comment on above: Performed By: #### N UM ####[facility] ([id number])[address] [place] [address] UROBILINOGEN BRENDEN 0.2 eu/dL Normal <1.1 [facility] Comment on above: Performed By: #### N UM ####[facility] ([id number])[address] [place] [address] XR CHEST 1 VWon 08-22-2023 XR CHEST 1 VW Normal [facility] Gerardo 08-16-2023 L Specimen: [id number] Received: 08/16/23 Status: ROSE Borrero Num: [id number] Spec Type: Surgical Subm Dr: Mayco Albright Tissues: A Endometrium - Curettings (ENDOMETRIAL) Procedures: HE/2, Gross/Micro L4 Age/ Patient Sex Location Account Attending Physician Blanca Rudolph 32/F LABELL [id number] Mayco Albright SPEC NUM: [id number] RECD: 08/16/23 STATUS: ROSE BORRERO NUM: [id number] DESIREE: 08/16/23- SUBM DR: Mayco Albright ENTERED: 08/16/[address] [facility] [address]: SPEC TYPE: Surgical DEPT: [facility] GUAJARDO ENTERED BY: [id number] RECV BY: [id number] ORDERED: HE/2, Gross/Micro L4 ORDERED: HE/2, Gross/Micro [...] pain, breakthrough bleeding with Nexplanon CPT Codes 13173 -------- -------- Specimen: [id number] Received: 08/16/23 Status: ROSE Borrero Num: [id number] Spec Type: Surgical Subm Dr: Mayco Albright Tissues: A Endometrium - Curettings (ENDOMETRIAL) Procedures: GABY/Anirudh Wasserman/Destinee L4 -------- Patient: Blanca Rudolph [id number] (Continued) -------- Signed (signature on file) Luisito Irizarry MD 08/21/23 0838 Normal [facility] EOSINOPHIL, TOTALon 08-14-19 Eosinophils (Bld) [#/Vol] 0.0 10*3/uL Normal 0.0-0.4 [facility] Comment on above: Performed By: #### 2 6449-9 ####[facility] ([id number])[address], [address] [address] RESPIRATORY PANELon 08-14-19 24 ALTERNARIA ALTERNATA <0.10 Normal <0.10 [facility] Comment on above: Result Comment: Clas s 0: Normal Performed By: #### R AP ####[facility] ([id number])[address], [address], [place] [address] ASPERGILLUS FUMIGATUS <0.10 Normal <0.10 [facility] Comment on above: Result Comment: Clas s 0: Normal Performed By: #### R AP ####[facility] ([id number])[address], [address], [place] [address] BERMUDA GRASS <0.10 Normal <0.10 [facility] Comment on above: Result Comment: Clas s 0: Normal Performed By: #### R AP ####[facility] ([id number])[address], [address], [place] [address] BOX ELDER <0.10 Normal <0.10 [facility] Comment on above: Result Comment: Clas s 0: Normal Performed By: #### R AP ####[facility] ([id number])[address], [address], [place] [address] CAT DANDER <0.10 Normal <0.10 [facility] Comment on above: Result Comment: Clas s 0: Normal Performed By: #### R AP ####[facility] ([id number])[address], [address] [address] CLADOSPORIUM HERB <0.10 Normal <0.10 [facility] Comment on above: Result Comment: Clas s 0: Normal Performed By: #### R AP ####[facility] ([id number])[address], [address], [place] [address] COCKLEBUR 0.20 kU/L High <0.10 [facility] Comment on above: Result Comment: Clas s 0/1: Low level of Allergy, ongoing sensitization Performed By: #### R AP ####[facility] ([id number])[address], [address], [place] [address] COCKROACH 0.37 kU/L High <0.10 [facility] Comment on above: Result Comment: Clas s 1:Low level of Allergy, indicative of ongoing sensitization Performed By: #### R AP ####[facility] ([id number])[address], [address], [place] [address] COMMON PIGWEED <0.10 Normal <0.10 [facility] Comment on above: Result Comment: Clas s 0: Normal Performed By: #### R AP ####[facility] ([id number])[address], [address] [address] COMMON RAGWEED <0.10 Normal <0.10 [facility] Comment on above: Result Comment: Clas s 0: Normal Performed By: #### R AP ####[facility] ([id number])[address], [address], [place] [address] COMMON SILVER BIRCH <0.10 Normal <0.10 [facility] Comment on above: Result Comment: Clas s 0: Normal Performed By: #### R AP ####[facility] ([id number])[address], [address] [address] COTTONWOOD <0.10 Normal <0.10 [facility] Comment on above: Result Comment: Clas s 0: Normal Performed By: #### R AP ####[facility] ([id number])[address], [address], [place] [address] DERMATOPH FARINAE 0.77 kU/L High <0.10 [facility] Comment on above: Result Comment: Clas s 2:Moderate level of Allergy, indicative of stronger ongoing sensitization Performed By: #### R AP ####[facility] ([id number])[address], [address] [address] DERMATOPH PTERONYSS 0.87 kU/L High <0.10 [facility] Comment on above: Result Comment: Clas s 2:Moderate level of Allergy, indicative of stronger ongoing sensitization Performed By: #### R AP ####[facility] ([id number])[address], [address], [place] [address] DOG DANDER <0.10 Normal <0.10 [facility] Comment on above: Result Comment: Clas s 0: Normal Performed By: #### R AP ####[facility] ([id number])[address], [address], [place] [address] ELM <0.10 Normal <0.10 [facility] Comment on above: Result Comment: Clas s 0: Normal Performed By: #### R AP ####[facility] ([id number])[address], [address] [address] GOOSEFOOT MICHAEL QTR <0.10 Normal <0.10 [facility] Comment on above: Result Comment: Clas s 0: Normal Performed By: #### R AP ####[facility] ([id number])[address], [address] [address] IGE 262 IU/mL High 0-165 [facility] Comment on above: Performed By: #### R AP ####[facility] ([id number])[address], [address] [address] JANET GRASS <0.10 Normal <0.10 [facility] Comment on above: Result Comment: Clas s 0: Normal Performed By: #### R AP ####[facility] ([id number])[address], [address], [place] [address] MAPLE LEAF SYCAMORE <0.10 Normal <0.10 [facility] Comment on above: Result Comment: Clas s 0: Normal Performed By: #### R AP ####[facility] ([id number])[address], [address], [place] [address] [place]OW [place] KAYKAY <0.10 Normal <0.10 [facility] Comment on above: Result Comment: Clas s 0: Normal Performed By: #### R AP ####[facility] ([id number])[address], [address], [place] [address] MOUNTAIN JUNIPER <0.10 Normal <0.10 [facility] Comment on above: Result Comment: Clas s 0: Normal Performed By: #### R AP ####[facility] ([id number])[address], [address], [place] [address] MOUSE URINE PROTEINS <0.10 Normal <0.10 [facility] Comment on above: Result Comment: Clas s 0: Normal Performed By: #### R AP ####[facility] ([id number])[address], [address] [address] MUGWORT <0.10 Normal <0.10 [facility] Comment on above: Result Comment: Clas s 0: Normal Performed By: #### R AP ####[facility] ([id number])[address], [address] [address] MULBERRY TREE <0.10 Normal <0.10 [facility] Comment on above: Result Comment: Clas s 0: Normal Performed By: #### R AP ####[facility] ([id number])[address], [address], [place] [address] NETTLE <0.10 Normal <0.10 [facility] Comment on above: Result Comment: Clas s 0: Normal Performed By: #### R AP ####[facility] ([id number])[address], [address], [place] [address] OAK <0.10 Normal <0.10 [facility] Comment on above: Result Comment: Clas s 0: Normal Performed By: #### R AP ####[facility] ([id number])[address], [address], [place] [address] PECAN HICKORY TREE <0.10 Normal <0.10 [facility] Comment on above: Result Comment: Clas s 0: Normal Performed By: #### R AP ####[facility] ([id number])[address], [address] [place] [address] PENICILLIUM CHRYSOGENUM <0.10 Normal <0.10 [facility] Comment on above: Result Comment: Clas s 0: Normal Performed By: #### R AP ####[facility] ([id number])[address], [address] [place] [address] ROUGH MARSHELDER 0.12 kU/L High <0.10 [facility] Comment on above: Result Comment: Clas s 0/1: Low level of Allergy, ongoing sensitization Performed By: #### R AP ####[facility] ([id number])[address], [address], [place] [address] S[place] ANIL THISTLE <0.10 Normal <0.10 [facility] Comment on above: Result Comment: Clas s 0: Normal Performed By: #### R AP ####[facility] ([id number])[address], [address] [place] [address] SHEEP SORREL <0.10 Normal <0.10 [facility] Comment on above: Result Comment: Clas s 0: Normal Performed By: #### R AP ####[facility] ([id number])[address], [address], [place] [address] EDI <0.10 Normal <0.10 [facility] Comment on above: Result Comment: Clas s 0: Normal Performed By: #### R AP ####[facility] ([id number])[address], [address], [place] [address] WALNUT TREE POLLEN <0.10 Normal <0.10 [facility] Comment on above: Result Comment: Clas s 0: Normal Performed By: #### R AP ####[facility] ([id number])[address], [address] [place] [address] WHITE JARED <0.10 Normal <0.10 [facility] Comment on above: Result Comment: Clas s 0: Normal Performed By: #### R AP ####[facility] ([id number])[address], [address] [place] [address] CBC AND AUTO DIFFon 07-26-19 24 ABSOLUTE BASOPHIL 0.0 X10E9/L Normal 0.0-0.2 [facility] Comment on above: Performed By: #### C KINDRA, 21824-6, 4485-9, 4498-2, CMP, 1987-08 ####[facility] ([id number])[address] [address] [place] [address] ABSOLUTE NEUTROPHIL 7.7 X10E9/L High 1.5-6.6 [facility] Comment on above: Performed By: #### C BCA, 48541-8, 4485-9, 4498-2, CMP, 1987-08 ####[facility] ([id number])[address] [address] [place] [address] Basophils/100 WBC (Bld) 0.2 % Normal [facility] Comment on above: Performed By: #### C BCA, 94861-0, 4485-9, 4498-2, CMP, 1987-08 ####[facility] ([id number])[address], [address] [place] [address] Eosinophils (Bld) [#/Vol] 0.0 10*3/uL Normal 0.0-0.4 [facility] Comment on above: Performed By: #### Nataliia ARGUELLES, 62566-1, 4485-9, 4497-2, [facility], 1987-08 ####[facility] ([id number])[address], [address] [place] [address] Eosinophils/100 WBC (Bld) 0.0 % Normal [facility] Comment on above: Performed By: #### Nataliia ARGUELLES, 42040-7, 4484-9, 4497-2, [facility], 1987-08 ####[facility] ([id number])[address], [address] [place] [address] Erythrocyte distribution width (RBC) [Ratio] 14.9 % Normal 11.5-15.0 [facility] Comment on above: Performed By: #### Nataliia ARGUELLES, 05651-9, 4484-9, 4497-2, [facility], 1987-08 ####[facility] ([id number])[address] [address] [place] [address] Hematocrit (Bld) [Volume fraction] 37.7 % Normal 35-47 [facility] Comment on above: Performed By: #### Nataliia BCA, 99805-5, 4484-9, 4497-2, [facility], 1987-08 ####[facility] ([id number])[address] [address] [place] [address] Hemoglobin (Bld) [Mass/Vol] 13.0 g/dL Normal 11.7-15.5 [facility] Comment on above: Performed By: #### Nataliia BCA, 62755-1, 5-9, 4497-2, [facility], 1987-08 ####[facility] ([id number])[address] [address] [place] [address] Lymphocytes (Bld) [#/Vol] 0.5 10*3/uL Low 1.0-3.5 [facility] Comment on above: Performed By: #### C KINDRA, 50006-1, 4485-9, 4498-2, [facility], 1987-08 ####[facility] ([id number])[address], [address] [place] [address] Lymphocytes/100 WBC (Bld) 6.2 % Normal [facility] Comment on above: Performed By: #### Nataliia ARGUELLES, 63071-4, 4485-9, 4498-2, [facility], 1987-08 ####[facility] ([id number])[address] [address] [place] [address] MCH (RBC) [Entitic mass] 31.4 pg Normal 27-34 [facility] Comment on above: Performed By: #### Nataliia ARGUELLES, 37947-8, 4485-9, 4498-2, [facility], 1987-08 ####[facility] ([id number])[address] [address] [place] [address] MCHC (RBC) [Mass/Vol] 34.5 g/dL Normal 32-36 [facility] Comment on above: Performed By: #### Nataliia ARGUELLES, 42708-8, 4485-9, 4498-2, [facility], 1987-08 ####[facility] ([id number])[address] [address] [place] [address] MCV (RBC) [Entitic vol] 91 fL Normal 80-100 [facility] Comment on above: Performed By: #### Nataliia ARGUELLES, 96074-3, 4485-9, 4498-2, CMP, 1987-08 ####[facility] ([id number])[address] [address] [place] [address] Monocytes (Bld) [#/Vol] 0.3 10*3/uL Normal 0-0.9 [facility] Comment on above: Performed By: #### Nataliia ARGUELLES, 68619-6, 4485-9, 4498-2, CMP, 1987-08 ####[facility] ([id number])[address], [address], [place] [address] Monocytes/100 WBC (Bld) 3.2 % Normal [facility] Comment on above: Performed By: #### Nataliia ARGUELLES, 01521-3, 4485-9, 4498-2, CMP, 1987-08 ####[facility] ([id number])[address], [address], [place] [address] Neutrophils/100 WBC (Bld) 90.4 % Normal [facility] Comment on above: Performed By: #### Nataliia ARGUELLES, 42707-6, 4485-9, 4498-2, CMP, 1987-08 ####[facility] ([id number])[address], [address], [place] [address] Platelet mean volume (Bld) [Entitic vol] 8.0 fL Normal 7-12 [facility] Comment on above: Performed By: #### Nataliia ARGUELLES, 42678-9, 4485-9, 4498-2, CMP, 1987-08 ####[facility] ([id number])[address], [address] [place] [address] Platelets (Bld) [#/Vol] 266 10*3/uL Normal 150-450 [facility] Comment on above: Performed By: #### Nataliia ARGUELLES, 83940-6, 4485-9, 4498-2, CMP, 1987-08 ####[facility] ([id number])[address], [address], [place] [address] RBC COUNT 4.14 X10E12/L Normal 3.80-5.20 [facility] Comment on above: Performed By: #### Nataliia ARGUELLES, 23800-2, 4485-9, 4498-2, CMP, 1987-08 ####[facility] ([id number])[address], [address] [place] [address] WBC (Bld) [#/Vol] 8.5 10*3/uL Normal 4.0-11.0 [facility] Comment on above: Performed By: #### C BCA, 24297-6, 4485-9, 4498-2, [facility], 1987-08 ####[facility] ([id number])[address], [address] [place] [address] CCL GENERIC ORDERon 07-26-19 TEST NAME KAVIN ROMAN Normal [facility] Comment on above: Performed By: #### C GO ####[facility] ([id number])[address] [place] [address] TEST RESULT See Below Normal [facility] Comment on above: Result Comment: NOTE TEST RESULT FLAG UNIT REF.RANGE Crithidia lucillae Negative NegativeCrithidia luciliae assay is used as an aid in diagnosis ofsystemic lupus erythematosus (SLE). A negative result cannotrule out SLE. Low positive titers may be seen with othersystemic autoimmune diseases. Clinical correlation isrequired. CRITHIDIA LUCILIAE Test Performed By: [facility] [address] [place] [address] Hide Worker: Peace Calloway III #[id number] Performed By: #### C GO ####[facility] ([id number])[address] [place] [address] COM[address]IVE METABOLIC PANE [facility] 07-26-2023 Albumin [Mass/Vol] 3.9 g/dL Normal 3.2-5.3 [facility] Comment on above: Performed By: #### C BCA, 46579-0, 4485-9, 4498-2, [facility], 1987-08 ####[facility] ([id number])[address], [address], [place] [address] ALP [Catalytic activity/Vol] 47 U/L Normal 39-130 [facility] Comment on above: Performed By: #### C BCA, 97944-7, 4485-9, 4498-2, CMP, 1987-08 ####[facility] ([id number])[address], [address], [place] [address] ALT [Catalytic activity/Vol] 10 U/L Normal 0-31 [facility] Comment on above: Performed By: #### C BCA, 19283-3, 4485-9, 4498-2, CMP, 1987-08 ####[facility] ([id number])[address], [address], [place] [address] Anion gap [Moles/Vol] 10 mmol/L Normal 5-15 [facility] Comment on above: Performed By: #### C BCA, 84909-6, 4485-9, 4498-2, CMP, 1987-08 ####[facility] ([id number])[address], [address], [place] [address] AST [Catalytic activity/Vol] 11 U/L Normal 0-41 [facility] Comment on above: Performed By: #### C BCA, 51903-8, 4485-9, 4498-2, CMP, 1987-08 ####[facility] ([id number])[address], [address], [place] [address] Bilirubin [Mass/Vol] 0.5 mg/dL Normal 0.3-1.2 [facility] Comment on above: Performed By: #### C BCA, 28897-5, 4485-9, 4498-2, [facility], 1987-08 ####[facility] ([id number])[address], [address], [place] [address] Calcium [Mass/Vol] 8.9 mg/dL Normal 8.5-10.5 [facility] Comment on above: Performed By: #### C BCA, 43711-0, 4485-9, 4498-2, [facility], 1987-08 ####[facility] ([id number])[address], [address], [place] [address] Chloride [Moles/Vol] 100 mmol/L Normal 98-109 [facility] Comment on above: Performed By: #### C BCA, 77087-9, 4485-9, 4498-2, [facility], 1987-08 ####[facility] ([id number])[address], [address] [place] [address] CO2 [Moles/Vol] 31 mmol/L Normal 22-32 [facility] Comment on above: Performed By: #### C BCA, 57234-4, 4485-9, 4498-2, [facility], 1987-08 ####[facility] ([id number])[address] [place] [address] Creatinine [Mass/Vol] 1.57 mg/dL High 0.40-1.00 [facility] Comment on above: Result Comment: METH OD TRACEABLE TO IDMS STANDARD Performed By: #### C BCA, 40719-5, 4485-9, 4498-2, [facility], 1987-08 ####[facility] ([id number])[address] [address] [place] [address] GFR/1.73 sq M.predicted among non-blacks MDRD (S/P/Bld) [Vol rate/Area] 45 mL/min/{1.73_m2} Low >59 [facility] Comment on above: Result Comment: Repo rted eGFR is based on theD-EPI 2020 equation that doesnot use a race coefficient. Performed By: #### C BCA, 37070-9, 4485-9, 4498-2, [facility], 1987-08 ####[facility] ([id number])[address], [address], [place] [address] Glucose [Mass/Vol] 135 mg/dL High 65-99 [facility] Comment on above: Performed By: #### C BCA, 74174-9, 4485-9, 4498-2, [facility], 1987-08 ####[facility] ([id number])[address] [address] [address] Potassium [Moles/Vol] 3.4 mmol/L Low 3.5-5.0 [facility] Comment on above: Performed By: #### C BCA, 05036-3, 4485-9, 4498-2, [facility], 1987-08 ####[facility] ([id number])[address], [address] [place] [address] Protein [Mass/Vol] 6.5 g/dL Normal 6.0-8.0 [facility] Comment on above: Performed By: #### C BCA, 06689-0, 4485-9, 4498-2, [facility], 1987-08 ####[facility] ([id number])[address], [address], [place] [address] Sodium [Moles/Vol] 141 mmol/L Normal 134-146 [facility] Comment on above: Performed By: #### C BCA, 95177-4, 4485-9, 4498-2, [facility], 1987-08 ####[facility] ([id number])[address], [address], [place] [address] Urea nitrogen [Mass/Vol] 34 mg/dL High 5-23 [facility] Comment on above: Performed By: #### C BCA, 89003-0, 4485-9, 4498-2, [facility], 1987-08 ####[facility] ([id number])[address], [address] [place] [address] CRP [Mass/Vol]on 07-26-2023 C REACTIVE PROTEIN 0.4 mg/dL Normal 0.000-0.744 [facility] Comment on above: Performed By: #### C BCA, 11883-6, 4485-9, 4498-2, [facility], 1987-08 ####[facility] ([id number])[address], [address] [place] [address] Complement C3 [Mass/Vol]on 0 07-26-2023 COMPLEMENT C3 140 mg/dL Normal 86-184 [facility] Comment on above: Performed By: #### C BCA, 46070-8, 4485-9, 4498-2, [facility], 1987-08 ####[facility] ([id number])[address], [address] [place] [address] Complement C4 [Mass/Vol]on 0 07-26-2023 COMPLEMENT C4 29 mg/dL Normal 16-47 [facility] Comment on above: Performed By: #### C BCA, 95017-4, 4485-9, 4498-2, [facility], 1987-08 ####[facility] ([id number])[address], [address] [place] [address] ESR Photometric method (Bld) [Velocity]on 07-26-2023 ESR, ERYTHROCYTE SEDIMENTATION RATE 3 mm/h Normal 0-20 [facility] Comment on above: Performed By: #### C BCA, 87291-8, 4485-9, 4498-2, [facility], 1987-08 ####[facility] ([id number])[address], [address] [place] [address] Laboratory comment Francisco (Repo rt)on 07-26-2023 UNLISTED LAB TEST Sent to reference lab Normal [facility] Comment on above: Performed By: #### C GO ####[facility] ([id number])[address] [place] [address] PROTEIN CREAT RATIOon 2023 RANDOM URINE PROTEIN 480 mg/L High <120 [facility] Comment on above: Performed By: #### U PCR ####[facility] ([id number])[address], [address] [place] [address] U/PRO/DISABILITY MANAGER RATIO CALC 1.13 High <0.2 [facility] Comment on above: Result Comment: Neph rotic Syndrome is associated with ratios >3.5 Performed By: #### U PCR ####[facility] ([id number])[address], [address] [place] [address] URINE CREATININE,RDM 42.43 mg/dL Normal [facility] Comment on above: Performed By: #### U PCR ####[facility] ([id number])[address], [address] [place] [address] URINALYSISon 07-26-2023 Bilirubin Ql (U) Negative Normal NEG [facility] BLOOD/HGB Large Abnormal NEG [facility] Color (U) YELLOW Normal YELLOW [facility] Glucose Ql (U) Negative Normal NEG [facility] Hyaline casts LM Ql (Urine sed) 1 /lpf Normal 0-2 [facility] Ketones Ql (U) Negative Normal NEG [facility] Leukocyte esterase Test strip Ql (U) Negative Normal NEG [facility] MUCOUS PRESENT Abnormal NONE [facility] Nitrite Ql (U) Negative Normal NEG [facility] pH (U) 6.0 [pH] Normal 5.0-8.5 [facility] Protein Ql (U) 50 mg/dL Abnormal NEG [facility] R.B.CELLS 48 /hpf High 0-5 [facility] Specific gravity (U) [Rel density] 1.009 Normal 1.003-1.035 [facility] SQUAMOUS EPITHELIUM 4 /hpf Normal 0-5 [facility] TURBIDITY CLEAR Normal CLEAR [facility] Urobilinogen (U) [Mass/Vol] mg/dL Normal <1.1 [facility] W.B.CELLS 2 /hpf Normal 0-5 [facility] MR BRAIN WO CONTon MR BRAIN WO CONT Normal [facility] Orders Onlyon 07-18-2023 Orders Only [id number] Blanca Rudolphe 1990 F Date Provider Department Center 07/18/2023 ORIN VERNON [facility] Family History Problem Relation Age of Onset Hypertension Mother Hypertension Mother's Sister Crohn's disease Mother's Sister Hypertension Maternal Grandmother Breast cancer Maternal Grandmother Kidney disease Other Migraines Other Family Status - Relation Status Age at Mother Mother's Sister Maternal Grandmother Other Normal [facility] SARS/FLU A+B/RSV by NAAT/Mol ecularon 07-15-2023 SARS/FLU A+B/RSV by NAAT/Molecular Normal [facility] Comment on above: Performed By: #### C OVFLR ####[facility] ([id number])[address] [place] [address] Orders Onlyon 07-10-2023 Orders Only [id number] RonniBlanca Jasmina 1990 F Date Provider Department Center 07/10/2023 147JEFFERY ABDI [facility] Family History Problem Relation Age of Onset Hypertension Mother Hypertension Mother's Sister Crohn's disease Mother's Sister Hypertension Maternal Grandmother Breast cancer Maternal Grandmother Kidney disease Other Migraines Other Family Status - Relation Status Age at Mother Mother's Sister Maternal Grandmother Other Normal [facility] CBC WITH AUTO DIFFERENTIALon 07-06-2023 Basophils (Bld) [#/Vol] 0.02 10*3/uL Normal 0.00-0.20 [facility] Comment on above: Performed By: #### L [id number] #### [facility] (BEAKER) [address] [place] [address] Basophils/100 WBC (Bld) 0.2 % Normal 0.0-1.0 [facility] Comment on above: Performed By: #### L [id number] #### [facility] (BEAKER) [address] [place] [address] Eosinophils (Bld) [#/Vol] 0.00 10*3/uL Normal 0.00-0.50 [facility] Comment on above: Performed By: #### L [id number] #### [facility] (BEAKER) [address] [place] [address] Eosinophils/100 WBC (Bld) 0.0 % Normal 0.0-6.0 [facility] Comment on above: Performed By: #### L [id number] #### [facility] [address] [place] [address] Erythrocyte distribution width (RBC) [Ratio] 13.7 % Normal 11.5-15.0 [facility] Comment on above: Performed By: #### L [id number] #### [facility] ([facility]) [address] [place] [address] ERYTHROCYTE MEAN CORPUSCULAR HEMOGLOBIN CONCENTRATION (G/DL) BY AUTOMATED 35.1 g/dL High 32.0-35.0 [facility] Comment on above: Performed By: #### L [id number] #### [facility] (BEAKER) [address] [place] [address] Hematocrit (Bld) [Volume fraction] 37.0 % Normal 36.0-48.0 [facility] Comment on above: Performed By: #### L [id number] #### [facility] (BEAKER) [address] [place] [address] Hemoglobin (Bld) [Mass/Vol] 13.0 g/dL Normal 12.0-15.0 [facility] Comment on above: Performed By: #### L [id number] #### [facility] (BEAKER) [address] [place] [address] Immature granulocytes (Bld) [#/Vol] 0.05 10*3/uL Normal 0.00-0.20 [facility] Comment on above: Performed By: #### L [id number] #### [facility] ([facility] [address] [place] [address] Immature granulocytes/100 WBC (Bld) 0.4 % Normal 0.0-1.0 [facility] Comment on above: Performed By: #### L [id number] #### [facility] ([facility]) [address] [address] Lymphocytes (Bld) [#/Vol] 0.90 10*3/uL Low 1.20-4.00 [facility] Comment on above: Performed By: #### L [id number] #### [facility] ([facility]) [address] [place] [address] Lymphocytes/100 WBC (Bld) 8.0 % Low 20.0-45.0 [facility] Comment on above: Performed By: #### L [id number] #### [facility] ([facility]) [address] [place] [address] MCH (RBC) [Entitic mass] 30.6 pg Normal 27.0-33.0 [facility] Comment on above: Performed By: #### L [id number] #### [facility] [address] [place] [address] MCV (RBC) [Entitic vol] 87.1 fL Normal 82.0-98.0 [facility] Comment on above: Performed By: #### L [id number] #### [facility] [address] [place] [address] Monocytes (Bld) [#/Vol] 0.37 10*3/uL Normal 0.10-1.00 [facility] Comment on above: Performed By: #### L [id number] #### [facility] ([facility] [address] [place] [address] Monocytes/100 WBC (Bld) 3.3 % Low 5.0-12.0 [facility] Comment on above: Performed By: #### L [id number] #### [email or web address] ([facility] [address] [place] [address] Neutrophils (Bld) [#/Vol] 9.95 10*3/uL High 1.60-7.60 [facility] Comment on above: Performed By: #### L [id number] #### [facility] ([facility]) [address] [place] [address] Neutrophils/100 WBC (Bld) 88.1 % High 40.0-72.0 [facility] Comment on above: Performed By: #### L [id number] #### [facility] ([facility]) [address] [place] [address] NRBC (PER 100 WBCS) BY AUTOMATED COUNT 0.0 % Normal 0 [facility] Comment on above: Performed By: #### L [id number] #### [facility] ([facility]) [address] [place] [address] PLATELETS (10*3/UL) IN BLOOD AUTOMATED COUNT 318 10*3/uL Normal 150-400 [facility] Comment on above: Performed By: #### L [id number] #### [facility] ([facility] [address] [place] [address] RBC (Bld) [#/Vol] 4.25 10*6/uL Normal 3.80-5.00 [facility] Comment on above: Performed By: #### L [id number] #### [facility] ([facility] [address] [place] [address] WBC (Bld) [#/Vol] 11.29 10*3/uL High 4.00-10.60 [facility] Comment on above: Performed By: #### L [id number] #### [facility] ([facility] [address] [place] [address] CHLAMYDIA TRACHOMATIS AND NE ISSERIA GONORRHEA, TMAon 07-06-2023 CHLAMYDIA TRACHOMATIS DNA PROBE (PRESENCE) IN UNSP SPEC Negative Normal Negative [facility] Comment on above: Result Comment: No C hlamydia trachomatis rRNA Detected. The Aptima Combo 2 Assay is a FDA approved target amplification nucleic acid probe test that utilizes target capture for the in vitro qualitative detection and differentiation of ribosomal RNA (rRNA) from Chlamydia trachomatis (CT) and/or Neisseria gonorrhoeae (GC) to aid the diagnosis of chlamydial and/or gonococcal urogenital disease using the Sterling System. The Aptima Combo 2 Assay involves target capture, target amplification by Mucker Cofferdam-Mediated Amplification (TMA), and the detection of the amplification products (amplicon) by the Hybridization Protection Assay (HPA). The internal process controls of the Sterling System monitor the target capture, amplification, and detection steps of the assay, this is not intended to control for sampling adequacy. Performed By: #### L [id number] ####[facility] (BEAKER)[address] [place] [address] NEISSERIA GONORRHOEAE DNA PROBE (PRESENCE) IN UNSP SPEC Negative Normal Negative [facility] Comment on above: Result Comment: No N eisseria gonorrhoeae rRNA Detected. The Aptima Combo 2 Assay is a FDA approved target amplification nucleic acid probe test that utilizes target capture for the in vitro qualitative detection and differentiation of ribosomal RNA (rRNA) from Chlamydia trachomatis (CT) and/or Neisseria gonorrhoeae (GC) to aid the diagnosis of chlamydial and/or gonococcal urogenital disease using the Sterling System. The Aptima Combo 2 Assay involves target capture, target amplification by Mucker Cofferdam-Mediated Amplification (TMA), and the detection of the amplification products (amplicon) by the Hybridization Protection Assay (HPA). The internal process controls of the Sterling System monitor the target capture, amplification, and detection steps of the assay, this is not intended to control for sampling adequacy. Performed By: #### L [id number] ####[facility] (BEAKER)[address] [place] [address] COMPREHENSIVE METABOLIC PANE Gerardo 07-06-2023 Albumin [Mass/Vol] 4.3 g/dL Normal 3.5-5.7 [facility] Comment on above: Performed By: #### L [id number] #### [facility] (BEAKER) [address] [place] [address] ALP [Catalytic activity/Vol] 46 U/L Normal 34-104 [facility] Comment on above: Performed By: #### L [id number] #### [facility] (BEAKER) [address] [place] [address] ALT [Catalytic activity/Vol] 10 U/L Normal 7-52 [facility] Comment on above: Performed By: #### L [id number] #### [facility] ([facility] [address] [place] [address] Anion gap [Moles/Vol] 14 mmol/L Normal 7-20 [facility] Comment on above: Performed By: #### L [id number] #### [facility] ([facility] [address] [place] [address] AST [Catalytic activity/Vol] 10 U/L Low 13-39 [facility] Comment on above: Performed By: #### L [id number] #### [facility] ([facility] [address] [place] [address] Bilirubin [Mass/Vol] 0.5 mg/dL Normal 0.3-1.0 [facility] Comment on above: Performed By: #### L [id number] #### [facility] (BEAKER) [address] [place] [address] Calcium [Mass/Vol] 9.1 mg/dL Normal 8.6-10.3 [facility] Comment on above: Performed By: #### L [id number] #### [facility] [email or web address] ([facility]ER) [address] [place] [address] Chloride [Moles/Vol] 98 mmol/L Normal 98-107 [facility] Comment on above: Performed By: #### L [id number] #### [facility] (BEAKER) [address] [place] [address] CO2 [Moles/Vol] 28 mmol/L Normal 21-31 [facility] Comment on above: Performed By: #### L [id number] #### [facility] ([facility]) [address] [place] [address] Creatinine [Mass/Vol] 1.68 mg/dL High 0.60-1.20 [facility] Comment on above: Performed By: #### L [id number] #### [facility] ([facility]) [address] [place] [address] GLOMERULAR FILTRATION RATE ML/MIN/1.73 SQ M.PREDICTED 41.4 mL/min/1.73m*2 Low >60.0 [facility] Comment on above: Result Comment: [facility]???s estimated glomerular filtration rate (eGFR) will [...] group of individuals. Performed By: #### L [id number] #### [facility] ([facility]) [address] [place] [address] Glucose [Mass/Vol] 124 mg/dL High 70-100 [facility] Comment on above: Performed By: #### L [id number] #### [facility] ([facility]) [address] [place] [address] Potassium [Moles/Vol] 4.3 mmol/L Normal 3.5-5.1 [facility] Comment on above: Performed By: #### L [id number] #### [facility] ([facility]) [address] [place] [address] Protein [Mass/Vol] 6.9 g/dL Normal 6.0-8.3 [facility] Comment on above: Performed By: #### L [id number] #### [facility] (BEAKER) [address] [place] [address] Sodium [Moles/Vol] 136 mmol/L Normal 136-145 [facility] Comment on above: Performed By: #### L [id number] #### [facility] (BEAKER) [address] [place] [address] Urea nitrogen [Mass/Vol] 37 mg/dL High 7-25 [facility] Comment on above: Performed By: #### L [id number] #### [facility] (BEAKER) [address] [place] [address] UREA NITROGEN/CREATININE (MASS RATIO) IN SER/PLAS 22.[address] [facility] Comment on above: Performed By: #### L [id number] #### [facility] (BEAKER) [address] [place] [address] HIV COMBO 4Gon 07-06-2023 HIV COMBO 4G Negative Normal Negative [facility] Comment on above: Performed By: #### L [id number] #### [facility] (BEAKER) [address] [place] [address] Labon 07-06-2023 Lab [id number] Blanca Rudolph 1990 Provider Department Center 07/06/2023 2243-[facility] Family History Problem Relation Age of Onset Hypertension Mother Hypertension Mother's Sister Crohn's disease Mother's Sister Hypertension Maternal Grandmother Breast cancer Maternal Grandmother Kidney disease Other Migraines Other Family Status - Relation Status Age at Mother Mother's Sister Maternal Grandmother Other Normal [facility] Office Visiton 07-06-2023 Follow-up visit [id number] Blanca Rudolph 1990 Provider Department Center 07/06/2023 [facility] Family History Problem Relation Age of Onset Hypertension Mother Hypertension Mother's Sister Crohn's disease Mother's Sister Hypertension Maternal Grandmother Breast cancer Maternal Grandmother Kidney disease Other Migraines Other Family Status - Relation Status Age at Mother Mother's Sister Maternal Grandmother Other Level of Service:38768 [place] OFFICE/OUTPATIENT ESTABLISHED MOD MDM 30 MIN Reason for Visit and Comments: Health Maintenance [619] Exposure to HIV [Other] Normal [facility] RPRon 07-06-2023 REAGIN AB PRESENCE IN SERUM BY RPR Reactive Abnormal Nonreactive [facility] Comment on above: Performed By: #### L [id number] #### [facility] ([facility]) [address] [place] [address] RPR QUANTITATIVEon RPR QUANT 1:16 High <1:1 [facility] Comment on above: Result Comment: The syphilis screen is a treponemal assay; patients with previously treated syphilis could be reactive on this assay, but nonreactive on the RPR Quant assay. Performed By: #### L [id number] ####[facility] ([facility])[address] [place] [address] URINALYSISon 07-06-2023 BILIRUBIN, TOTAL PRESENCE IN URINE Negative Normal Negative [facility] Comment on above: Performed By: #### L [id number] #### [facility] ([facility]) [address] [place] [address] Clarity (U) Slightly Cloudy Abnormal Clear [facility] Comment on above: Performed By: #### L [id number] #### [facility] ([facility] [address] [place] [address] Color (U) Yellow Normal Yellow [facility] Comment on above: Performed By: #### L [id number] #### [facility] ([facility]) [address] [place] [address] Glucose (U) [Mass/Vol] Negative Normal Negative [facility] Comment on above: Performed By: #### L [id number] #### [facility] ([facility] [address] [place] [address] HEMOGLOBIN PRESENCE IN URINE Large Abnormal Negative [facility] Comment on above: Performed By: #### L [id number] #### [facility] ([facility] [address] [place] [address] Ketones Ql (U) Negative Normal Negative [facility] Comment on above: Performed By: #### L [id number] #### [facility] ([facility]) [address] [place] [address] LEUKOCYTE ESTERASE PRESENCE IN URINE BY TEST STRIP Small Abnormal Negative [facility] Comment on above: Performed By: #### L [id number] #### [facility] ([facility]) [address] [place] [address] NITRITE PRESENCE IN URINE Negative Normal Negative [facility] Comment on above: Performed By: #### L [id number] #### [facility] ([facility]) [address] [place] [address] pH (U) 5.0 [pH] Normal 5.0-8.0 [facility] Comment on above: Performed By: #### L [id number] #### [facility] ([facility]) [address] [place] [address] Protein (U) [Mass/Vol] 100 mg/dL Abnormal Negative [facility] Comment on above: Performed By: #### L [id number] #### [facility] ([facility] [facility]) [address] [place] [address] Specific gravity (U) [Rel density] 1.011 Low 1.015-1.020 [facility] Comment on above: Performed By: #### L [id number] #### [facility] ([facility]) [address] [place] [address] URINALYSIS MICROSCOPICon CASTS IN URINE Normal [facility] Comment on above: Performed By: #### L [id number] ####[facility] ([facility])[address] [place] [address] CRYSTALS IN URINE Normal [facility] Comment on above: Performed By: #### L [id number] ####[facility] ([facility])[address] [place] [address] RBC (#/HPF) IN URINE SEDIMENT >[address] [facility] Comment on above: Performed By: #### L [id number] ####[facility] ([facility])[address] [place] [address] SQUAMOUS EPITHELIAL CELLS (#/HPF) IN URINE SEDIMENT Many Abnormal None Seen, Occasional [facility] Comment on above: Performed By: #### L [id number] ####[facility] ([facility])[address] [place] [address] WBC (LEUKOCYTE) (#/HPF) IN URINE SEDIMENT 6-[address] [facility] Comment on above: Performed By: #### L [id number] ####[facility] ([facility] [place] [address] CT CTA COR ARTERIES W OR WO [...] Reina MD on 06/21/2023 9:57 AM Normal [facility] TROPONIN Ion 06-20-2023 Troponin I.cardiac [Mass/Vol] ng/mL Normal 0.00-0.04 [facility] Comment on above: Performed By: #### C MP, 1987-, CBCA, 4485-9, 4498-2, 93214-3 #### [facility] ([id number]) [address], [address] [place] [address] CBC AND AUTO DIFFon 06-19-19 24 ABSOLUTE BASOPHIL 0.0 X10E9/L Normal 0.0-0.2 [facility] Comment on above: Performed By: #### C BCA, CMP, 2156-09, 3, TSHR #### [facility] ([id number]) [address], [address] [place] [address] ABSOLUTE NEUTROPHIL 7.8 X10E9/L High 1.5-6.6 [facility] Comment on above: Performed By: #### C BCA, CMP, 2156-09, 2638-3, TSHR #### [facility] ([id number]) [address], [address] [place] [address] Basophils/100 WBC (Bld) 0.3 % Normal [facility] Comment on above: Performed By: #### C BCA, CMP, 2156-09, 2638-3, TSHR #### [facility] ([id number]) [address], [address] [place] [address] Eosinophils (Bld) [#/Vol] 0.1 10*3/uL Normal 0.0-0.4 [facility] Comment on above: Performed By: #### C BCA, CMP, 2156-09, 3, TSHR #### [facility] ([id number]) [address] [place] [address] Eosinophils/100 WBC (Bld) 0.6 % Normal [facility] Comment on above: Performed By: #### C BCA, CMP, 2156-09, 3, TSHR #### [facility] ([id number]) [address] [place] [address] Erythrocyte distribution width (RBC) [Ratio] 14.7 % Normal 11.5-15.0 [facility] Comment on above: Performed By: #### C BCA, CMP, 2156-09, 2638-06, TSHR #### [facility] ([id number]) [address] [place] [address] Hematocrit (Bld) [Volume fraction] 38.0 % Normal 35-47 [facility] Comment on above: Performed By: #### C BCA, CMP, 2156-09, 2638-06, TSHR #### [facility] ([id number]) [address] [place] [address] Hemoglobin (Bld) [Mass/Vol] 13.2 g/dL Normal 11.7-15.5 [facility] Comment on above: Performed By: #### C BCA, CMP, 2156-09, 2638-06, TSHR #### [facility] ([id number]) [address] [place] [address] Lymphocytes (Bld) [#/Vol] 1.1 10*3/uL Normal 1.0-3.5 [facility] Comment on above: Performed By: #### C BCA, CMP, 2156-09, 3, TSHR #### [facility] ([id number]) [address] [place] [address] Lymphocytes/100 WBC (Bld) 11.0 % Normal [facility] Comment on above: Performed By: #### C BCA, CMP, 2156-09, 2638-3, TSHR #### [facility] ([id number]) [address] [place] [address] MCH (RBC) [Entitic mass] 30.4 pg Normal 27-34 [facility] Comment on above: Performed By: #### C BCA, CMP, 2156-09, 2638-3, TSHR #### [facility] ([id number]) [address] [place] [address] MCHC (RBC) [Mass/Vol] 34.9 g/dL Normal 32-36 [facility] Comment on above: Performed By: #### C BCA, CMP, 2156-09, 2638-3, TSHR #### [facility] ([id number]) [address], [facility] [address] [place] [address] MCV (RBC) [Entitic vol] 87 fL Normal 80-100 [facility] Comment on above: Performed By: #### C BCA, CMP, 2156-09, 2638-3, TSHR #### [facility] ([id number]) [address] [address] Monocytes (Bld) [#/Vol] 0.7 10*3/uL Normal 0-0.9 [facility] Comment on above: Performed By: #### C BCA, CMP, 2156-09, 2638-3, TSHR #### [facility] ([id number]) [address] [address] Monocytes/100 WBC (Bld) 7.2 % Normal [facility] Comment on above: Performed By: #### C BCA, CMP, 2156-09, 2638-3, TSHR #### [facility] ([id number]) [address] [place] [address] Neutrophils/100 WBC (Bld) 80.9 % Normal [facility] Comment on above: Performed By: #### C BCA, CMP, 2156-09, 2638-3, TSHR #### [facility] ([id number]) [address], [facility] [address] [place] [address] Platelet mean volume (Bld) [Entitic vol] 7.5 fL Normal 7-12 [facility] Comment on above: Performed By: #### C BCA, CMP, 2156-09, 2638-3, TSHR #### [facility] ([id number]) [address], [address] [address] Platelets (Bld) [#/Vol] 309 10*3/uL Normal 150-450 [facility] Comment on above: Performed By: #### C BCA, CMP, 2156-09, 3, TSHR #### [facility] ([id number]) [address], [facility] [address] [place] [address] RBC COUNT 4.36 X10E12/L Normal 3.80-5.20 [facility] Comment on above: Performed By: #### C BCA, CMP, 2156-09, 2638-3, TSHR #### [facility] ([id number]) [address], [facility] [address] [place] [address] WBC (Bld) [#/Vol] 9.7 10*3/uL Normal 4.0-11.0 [facility] Comment on above: Performed By: #### C BCA, CMP, 2156-09, 3, TSHR #### [facility] ([id number]) [address], [address] [place] [address] CK [Catalytic activity/Vol]o n 06-19-2023 CPK 24 U/L Normal 24-170 [facility] Comment on above: Performed By: #### C MP, 1987-08, CBCA, 4485-9, 4498-2, 58889-9 #### [facility] ([id number]) [address], [address] [place] [address] COMPREHENSIVE METABOLIC PANE Gerardo 06-19-2023 Albumin [Mass/Vol] 3.9 g/dL Normal 3.2-5.3 [facility] Comment on above: Performed By: #### C JUNAID, 1987-08, CBCA, 4485-9, 4498-2, 24881-1 #### [facility] ([id number]) [address], [address] [place] [address] ALP [Catalytic activity/Vol] 38 U/L Low 39-130 [facility] Comment on above: Performed By: #### C JUNAID, 1987-08, CBCA, 4485-9, 4498-2, 45110-7 #### [facility] ([id number]) [address], [address] [place] [address] ALT [Catalytic activity/Vol] 11 U/L Normal 0-31 [facility] Comment on above: Performed By: #### C JUNAID, 1987-08, CBCA, 4485-9, 4498-2, 62378-0 #### [facility] ([id number]) [address], [address] [place] [address] Anion gap [Moles/Vol] 9 mmol/L Normal 5-15 [facility] Comment on above: Performed By: #### C JUNAID, 1987-08, CBCA, 4485-9, 4498-2, 73553-8 #### [facility] ([id number]) [address], [address] [place] [address] AST [Catalytic activity/Vol] 11 U/L Normal 0-41 [facility] Comment on above: Performed By: #### C JUNAID, 1987-08, CBCA, 4485-9, 4498-2, 03948-2 #### [facility] ([id number]) [address], [address] [place] [address] Bilirubin [Mass/Vol] 0.4 mg/dL Normal 0.3-1.2 [facility] Comment on above: Performed By: #### C JUNAID, 1987-08, CBCA, 4485-9, 4498-2, 87513-9 #### [facility] ([id number]) [address], [address] [place] [address] Calcium [Mass/Vol] 9.0 mg/dL Normal 8.5-10.5 [facility] Comment on above: Performed By: #### C JUNAID, 1987-08, CBCA, 448-9, 4498-2, 83823-0 #### [facility] ([id number]) [address], [address] [place] [address] Chloride [Moles/Vol] 104 mmol/L Normal 98-109 [facility] Comment on above: Performed By: #### C JUNAID, 1987-08, CBCA, 4485-9, 4498-2, 88327-4 #### [facility] ([id number]) [address], [address] [place] [address] CO2 [Moles/Vol] 28 mmol/L Normal 22-32 [facility] Comment on above: Performed By: #### C JUNAID, 1987-08, CBCA, 4485-9, 4498-2, 93224-7 #### [facility] ([id number]) [address], [address] [place] [address] Creatinine [Mass/Vol] 1.10 mg/dL High 0.40-1.00 [facility] Comment on above: Result Comment: METH OD TRACEABLE TO IDMS STANDARD Performed By: #### C JUNAID, 1987-08, CBCA, 4485-9, 4498-2, 57269-5 #### [facility] ([id number]) [address] [place] [address] GFR/1.73 sq M.predicted among non-blacks MDRD (S/P/Bld) [Vol rate/Area] 69 mL/min/{1.73_m2} Normal >59 [facility] Comment on above: Result Comment: Reported eGFR is based on the CKD-EPI 2020 equation that does not use a race coefficient. Performed By: #### C JUNAID, 1987-08, CBCA, 4485-9, 4498-2, 46672-8 #### [facility] ([id number]) [address] [place] [address] Glucose [Mass/Vol] 106 mg/dL High 65-99 [facility] Comment on above: Performed By: #### Nataliia QUIROGA, 1986-08, CBCA, 4485-9, 4498-2, 02338-0 #### [facility] ([id number]) [address] [place] [address] Potassium [Moles/Vol] 3.6 mmol/L Normal 3.5-5.0 [facility] Comment on above: Performed By: #### Nataliia QUIROGA, 1987-08, CBCA, 4485-9, 4498-2, 27677-9 #### [facility] ([id number]) [address] [place] [address] Protein [Mass/Vol] 6.3 g/dL Normal 6.0-8.0 [facility] Comment on above: Performed By: #### C JUNAID, 1987-08, CBCA, 4485-9, 4498-2, 78072-2 #### [facility] ([id number]) [address] [place] [address] Sodium [Moles/Vol] 141 mmol/L Normal 134-146 [facility] Comment on above: Performed By: #### C JUNAID, 1987-08, CBCA, 4485-9, 4498-2, 43310-7 #### [facility] ([id number]) [address], [address] [place] [address] Urea nitrogen [Mass/Vol] 21 mg/dL Normal 5-23 [facility] Comment on above: Performed By: #### Nataliia QUIROGA, 1987-08, CBCA, 4485-9, 4498-2, 25719-8 #### [facility] ([id number]) [address], [address] [place] [address] HGB A1C (GLYCO-HGB)on 2023 Glucose [Mass/Vol] 105 mg/dL Normal [facility] HbA1c (Bld) [Mass fraction] 5.3 % Normal 4.4-5.6 [facility] Comment on above: Result Comment: NOTE ADA Guidelines Result HgbA1c Normal : less than 5.7 % Prediabetes : 5.7 % to 6.4 % Diabetes : > 6.4 % Use with caution in patients with abnormal hemoglobin variants as the half-life of red blood cells and in vivo glycation rates are affected. Lipid 1996 panelon Cholesterol [Mass/Vol] 108 mg/dL Low 150-200 [facility] Comment on above: Performed By: #### Nataliia QUIROGA, 1987-08, CBCA, 4485-9, 4498-2, 40836-6 #### [facility] ([id number]) [address], [address] [place] [address] Cholesterol in HDL [Mass/Vol] 37 mg/dL Low >39 [facility] Comment on above: Result Comment: HDL <40 mg/dL - High Risk HDL > or = 40mg/dL- Desirable HDL >60 mg/dL - Negative Risk Performed By: #### C JUNAID, 1987-08, CBCA, 4485-9, 4498-2, 67767-1 #### [facility] ([id number]) [address], [facility] [address] [place] [address] Cholesterol in LDL [Mass/Vol] 52 mg/dL Normal <130 [facility] Comment on above: Result Comment: LDL <100 mg/dL - Desirable LDL >160 mg/dL - High Risk Performed By: #### Nataliia QUIROGA, 1987-08, CBCA, 4485-9, 4498-2, 31754-9 #### [facility] ([id number]) [address], [address] [place] [address] Cholesterol in VLDL [Mass/Vol] 19 mg/dL Normal 0-30 [facility] Comment on above: Performed By: #### Nataliia QUIROGA, 1987-08, CBCA, 4485-9, 4498-2, 70239-4 #### [facility] ([id number]) [address], [facility] [address] [place] [address] CHOLESTEROL:HDL 2.9 Normal 1.0-5.0 [facility] Comment on above: Performed By: #### Nataliia QUIROGA, 1987-08, CBCA, 4485-9, 4498-2, 45583-7 #### [facility] ([id number]) [address], [address] [place] [address] Triglyceride [Mass/Vol] 96 mg/dL Normal 27-150 [facility] Comment on above: Performed By: #### Nataliia QUIROGA, 1987-08, CBCA, 4485-9, 4498-2, 39358-1 #### [facility] ([id number]) [address], [address] [place] [address] MAGNESIUMon 06-19-2023 Magnesium [Mass/Vol] 1.8 mg/dL Normal 1.8-2.6 [facility] Comment on above: Performed By: #### Nataliia QUIROGA, 1987-08, CBCA, 4485-9, 4498-2, 52497-7 #### [facility] ([id number]) [address], [address] [place] [address] Myoglobin [Mass/Vol]on 06-19 SERUM MYOGLOBIN 20.4 ng/mL Normal 14.3-65.8 [facility] Comment on above: Performed By: #### Nataliia QUIROGA, 1987-08, CBCA, 4485-9, 4498-2, 45342-5 #### [facility] ([id number]) [address] [place] [address] Natriuretic peptide B [Mass/ Vol]on 06-19-2023 Natriuretic peptide B (Bld) [Mass/Vol] 13 pg/mL Normal <100.0 [facility] Comment on above: Performed By: #### Nataliia QUIROGA, 1987-08, CBCA, 4485-9, 4498-2, 24305-6 #### [facility] ([id number]) [address] [place] [address] TROPONIN Ion 06-19-2023 Troponin I.cardiac [Mass/Vol] ng/mL Normal 0.00-0.04 [facility] Comment on above: Performed By: #### Nataliia QUIROGA, 1987-08, CBCA, 4485-9, 4498-2, 25967-2 #### [facility] ([id number]) [address], [address] [place] [address] Troponin I.cardiac [Mass/Vol] ng/mL Normal 0.00-0.04 [facility] Comment on above: Performed By: #### Nataliia QUIROGA, 1987-08, CBCA, 4485-9, 4498-2, 01924-6 #### [facility] ([id number]) [address], [address] [place] [address] TSH WITH REFLEXon 06-19-2023 TSH 1.95 uIU/mL Normal 0.49-4.67 [facility] Comment on above: Performed By: #### C MP, 1988-, CBCA, 4485-9, 4498-2, 78502-6 #### [facility] ([id number]) [address], [address] [place] [address] Troponin I.cardiac (Bld) [Ma ss/Vol]on 06-19-2023 PORTABLE TROPONIN <0.01 Normal 0.00-0.08 [facility] Comment on above: Result Comment: NEW REFERENCE RANGE Performed By: #### 4 2757-5 #### [facility] ([id number]) [address] [place] [address] Urine collection deviceon ER EXTRA URINES ER EXTRA URINE ORDER IN PROCESS Normal [facility] XR CHEST 1 VWon 06-19-2023 XR [...] Stanley MD on 06/19/2023 11:00 AM Normal [facility] BASIC METABOLIC PANLon 06-14 Anion gap [Moles/Vol] 11 mmol/L Normal 5-15 [facility] Comment on above: Performed By: #### C BC, BMP, 57778-7, 2777-1, 2731-8, 63300-5 #### [facility] ([id number]) [address], [address] [place] [address] Calcium [Mass/Vol] 8.7 mg/dL Normal 8.5-10.5 [facility] Comment on above: Performed By: #### C BC, BMP, 82810-9, 2777-1, 2731-8, 79206-6 #### [facility] ([id number]) [address], [address] [place] [address] Chloride [Moles/Vol] 99 mmol/L Normal 98-109 [facility] Comment on above: Performed By: #### C BC, BMP, 46480-3, 2777-1, 2731-8, 16875-1 #### [facility] ([id number]) [address], [address] [place] [address] CO2 [Moles/Vol] 30 mmol/L Normal 22-32 [facility] Comment on above: Performed By: #### C BC, BMP, 97490-8, 2777-1, 2731-8, 28446-5 #### [facility] ([id number]) [address], [address] [place] [address] Creatinine [Mass/Vol] 1.68 mg/dL High 0.40-1.00 [facility] Comment on above: Result Comment: METH OD TRACEABLE TO IDMS STANDARD Performed By: #### C GAVI, BMP, 77533-6, 2777-1, 2731-8, 90501-6 #### [facility] ([id number]) [address], [address] [place] [address] GFR/1.73 sq M.predicted among non-blacks MDRD (S/P/Bld) [Vol rate/Area] 41 mL/min/{1.73_m2} Low >59 [facility] Comment on above: Result Comment: Reported eGFR is based on the CKD-EPI 2020 equation that does not use a race coefficient. Performed By: #### C BC, BMP, 52274-2, 2777-1, 2731-8, 19631-9 #### [facility] ([id number]) [address], [address] [place] [address] Glucose [Mass/Vol] 166 mg/dL High 65-99 [facility] Comment on above: Performed By: #### C BC, BMP, 15736-9, 2777-1, 2731-8, 02812-9 #### [facility] ([id number]) [address], [address] [place] [address] Potassium [Moles/Vol] 4.0 mmol/L Normal 3.5-5.0 [facility] Comment on above: Performed By: #### C BC, BMP, 47480-0, 2777-1, 2731-8, 52099-8 #### [facility] ([id number]) [address] [place] [address] Sodium [Moles/Vol] 140 mmol/L Normal 134-146 [facility] Comment on above: Performed By: #### Nataliia BC, BMP, 89896-7, 7-1, 273-8, 83368-2 #### [facility] ([id number]) [address], [address] [place] [address] Urea nitrogen [Mass/Vol] 33 mg/dL High 5-23 [facility] Comment on above: Performed By: #### Nataliia BC, BMP, 98814-1, 7-1, 2731-8, 70510-9 #### [facility] ([id number]) [address] [place] [address] COMPLETE BLOOD COUNTon 06-14 Erythrocyte distribution width (RBC) [Ratio] 14.8 % Normal 11.5-15.0 [facility] Comment on above: Performed By: #### C BC, BMP, 38538-9, 2777-1, 2731-8, 04457-8 #### [facility] ([id number]) [address], [address] [place] [address] Hematocrit (Bld) [Volume fraction] 36.5 % Normal 35-47 [facility] Comment on above: Performed By: #### C BC, BMP, 26121-8, 2777-1, 2731-8, 41845-3 #### [facility] ([id number]) [address], [address] [place] [address] Hemoglobin (Bld) [Mass/Vol] 12.5 g/dL Normal 11.7-15.5 [facility] Comment on above: Performed By: #### Nataliia BC, BMP, 21082-1, 7-1, 2731-8, 40950-4 #### [facility] ([id number]) [address], [address] [place] [address] MCH (RBC) [Entitic mass] 29.9 pg Normal 27-34 [facility] Comment on above: Performed By: #### Nataliia BC, BMP, 95440-2, 7-1, 273-8, 26686-3 #### [facility] ([id number]) [address], [address] [place] [address] MCHC (RBC) [Mass/Vol] 34.4 g/dL Normal 32-36 [facility] Comment on above: Performed By: #### Nataliia BC, BMP, 87239-1, 2776-1, 273-8, 57031-3 #### [facility] ([id number]) [address] [place] [address] MCV (RBC) [Entitic vol] 87 fL Normal 80-100 [facility] Comment on above: Performed By: #### Nataliia BC, BMP, 04702-3, 2777-1, 2731-8, 99800-0 #### [facility] ([id number]) [address] [place] [address] Platelet mean volume (Bld) [Entitic vol] 7.9 fL Normal 7-12 [facility] Comment on above: Performed By: #### C BC, BMP, 43776-2, 2777-1, 2731-8, 71110-9 #### [facility] ([id number]) [address], [address] [address] Platelets (Bld) [#/Vol] 292 10*3/uL Normal 150-450 [facility] Comment on above: Performed By: #### Nataliia GATICA, BMP, 33029-3, 7-1, 2731-8, 70120-8 #### [facility] ([id number]) [address], [address] [address] RBC COUNT 4.20 X10E12/L Normal 3.80-5.20 [facility] Comment on above: Performed By: #### Nataliia GATICA, BMP, 02647-1, 7-1, 2731-8, 50937-1 #### [facility] ([id number]) [address] [address] WBC (Bld) [#/Vol] 8.3 10*3/uL Normal 4.0-11.0 [facility] Comment on above: Performed By: #### Nataliia GATICA, BMP, 78559-2, 7-1, 2731-8, 96803-8 #### [facility] ([id number]) [address] [address] MAGNESIUMon 06-14-2023 Magnesium [Mass/Vol] 1.8 mg/dL Normal 1.8-2.6 [facility] Comment on above: Performed By: #### Nataliia BC, BMP, 48522-8, 7-1, 2731-8, 10587-4 #### [facility] ([id number]) [address] [address] NUC STRESS EXERCISEon 2023 NUC STRESS EXERCISE [...] Mario Ribera on 06/14/2023 12:01 PM Normal [facility] PHOSPHORUSon 06-14-2023 Phosphate [Mass/Vol] 3.1 mg/dL Normal 2.4-4.9 [facility] Comment on above: Performed By: #### C BC, BMP, 89785-4, 2777-1, 2731-8, 06062-3 #### [facility] ([id number]) [address], [address] [place] [address] PROTEIN CREAT RATIOon 2023 RANDOM URINE PROTEIN 1140 mg/L High <120 [facility] Comment on above: Performed By: #### U PCR #### [facility] ([id number]) [address], [address] [place] [address] U/PRO/DISABILITY MANAGER RATIO CALC 1.89 High <0.2 [facility] Comment on above: Result Comment: Neph rotic Syndrome is associated with ratios >3.5 Performed By: #### U PCR #### [facility] ([id number]) [address], [address] [place] [address] URINE CREATININE,RDM 60.16 mg/dL Normal [facility] Comment on above: Performed By: #### U PCR #### [facility] ([id number]) [address], [address] [place] [address] Parathyrin.intact [Mass/Vol] on 06-14-2023 PTH INTACT 80 pg/mL Normal [facility] Comment on above: Performed By: #### C BC, BMP, 23092-6, 2777-1, 2731-8, 34061-2 #### [facility] ([id number]) [address], [address] [place] [address] URINALYSISon 06-14-2023 Bilirubin Ql (U) Negative Normal NEG [facility] BLOOD/HGB Large Abnormal NEG [facility] Color (U) YELLOW Normal YELLOW [facility] Glucose Ql (U) Negative Normal NEG [facility] Ketones Ql (U) Negative Normal NEG [facility] Leukocyte esterase Test strip Ql (U) Negative Normal NEG [facility] MUCOUS PRESENT Abnormal NONE [facility] Nitrite Ql (U) Negative Normal NEG [facility] pH (U) 6.5 [pH] Normal 5.0-8.5 [facility] Protein Ql (U) 200 mg/dL Abnormal NEG [facility] R.B.CELLS 146 /hpf High 0-5 [facility] Specific gravity (U) [Rel density] 1.009 Normal 1.003-1.035 [facility] SQUAMOUS EPITHELIUM <1 [facility] 0[facility]5 [facility] [facility] TURBIDITY CLEAR Normal [facility] Urobilinogen (U) [Mass/Vol] mg/dL Normal <1.1 [facility] W.B.CELLS 4 /hpf Normal 0-5 [facility] Vitamin D+Metabolites [Mass/ Vol]on 06-14-2023 VITAMIN D 25 HYD TOT 24.0 ng/mL Low 30-100 [facility] Comment on above: Result Comment: Vitamin D status 25 [place] Vitamin D Deficiency <20 ng/mL Insufficiency 20-29 ng/mL Sufficiency 30-100 ng/mL Toxicity >100 ng/mL NOTE: A pediatric reference range has not been established by the regional sales consultant of this kit. The [place] [employer] recommends a Vitamin D level of = or >20ng/mL in infants and children. Performed By: #### C BC, BMP, 00698-4, 2777-1, 2731-8, 40145-5 #### [facility] ([id number]) [address], [address] [place] [address] CBC AND AUTO DIFFon 05-03-19 24 ABSOLUTE BASOPHIL 0.0 X10E9/L Normal 0.0-0.2 [facility] Comment on above: Performed By: #### Nataliia QUIROGA, 1986-08, CBCA, 4485-9, 4498-2, 44640-1 #### [facility] ([id number]) [address], [address] [place] [address] ABSOLUTE NEUTROPHIL 5.5 X10E9/L Normal 1.5-6.6 [facility] Comment on above: Performed By: #### C JUNAID, 1986-08, CBCA, 4485-9, 4498-2, 35942-9 #### [facility] ([id number]) [address], [address] [place] [address] Basophils/100 WBC (Bld) 0.3 % Normal [facility] Comment on above: Performed By: #### C JUNAID, 1986-08, CBCA, 4485-9, 4498-2, 18937-4 #### [facility] ([id number]) [address], [address] [place] [address] Eosinophils (Bld) [#/Vol] 0.0 10*3/uL Normal 0.0-0.4 [facility] Comment on above: Performed By: #### C JUNAID, 1986-08, CBCA, 4485-9, 4498-2, 81041-3 #### [facility] ([id number]) [address] [place] [address] Eosinophils/100 WBC (Bld) 0.5 % Normal [facility] Comment on above: Performed By: #### Nataliia QUIROGA, 1986-08, CBCA, 448-9, 4498-2, 04953-3 #### [facility] ([id number]) [address] [address] [place] [address] Erythrocyte distribution width (RBC) [Ratio] 13.3 % Normal 11.5-15.0 [facility] Comment on above: Performed By: #### C JUNAID, 1986-08, CBCA, 4485-9, 4498-2, 05981-9 #### [facility] ([id number]) [address], [address] [place] [address] Hematocrit (Bld) [Volume fraction] 36.0 % Normal 35-47 [facility] Comment on above: Performed By: #### C JUNAID, 1986-08, CBCA, 4485-9, 4498-2, 73521-2 #### [facility] ([id number]) [address] [address] [place] [address] Hemoglobin (Bld) [Mass/Vol] 12.3 g/dL Normal 11.7-15.5 [facility] Comment on above: Performed By: #### C JUNAID, 1986-08, CBCA, 4485-9, 4498-2, 94267-9 #### [facility] ([id number]) [address], [facility] [address] [place] [address] Lymphocytes (Bld) [#/Vol] 1.9 10*3/uL Normal 1.0-3.5 [facility] Comment on above: Performed By: #### C JUNAID, 1986-08, CBCA, 4489, 4498-2, 85849-2 #### [facility] ([id number]) [address], [facility] [address] [place] [address] Lymphocytes/100 WBC (Bld) 23.5 % Normal [facility] Comment on above: Performed By: #### C JUNAID, 1986-08, CBCA, 448-9, 4498-2, 53418-3 #### [facility] ([id number]) [address], [address] [place] [address] MCH (RBC) [Entitic mass] 30.4 pg Normal 27-34 [facility] Comment on above: Performed By: #### Nataliia QUIROGA, 1986-08, CBCA, 448-9, 4498-2, 84281-5 #### [facility] ([id number]) [address], [facility] [address] [place] [address] MCHC (RBC) [Mass/Vol] 34.1 g/dL Normal 32-36 [facility] Comment on above: Performed By: #### C JUNAID, 1986-08, CBCA, 4485-9, 4498-2, 63342-5 #### [facility] ([id number]) [address] [place] [address] MCV (RBC) [Entitic vol] 89 fL Normal 80-100 [facility] Comment on above: Performed By: #### Nataliia QUIROGA, 1986-08, CBCA, 4485-9, 4498-2, 27761-5 #### [facility] ([id number]) [address], [facility] [address] [place] [address] Monocytes (Bld) [#/Vol] 0.7 10*3/uL Normal 0-0.9 [facility] Comment on above: Performed By: #### C JUNAID, 1986-08, CBCA, 4485-9, 4498-2, 57398-0 #### [facility] ([id number]) [address], [facility] [address] [place] [address] Monocytes/100 WBC (Bld) 8.3 % Normal [facility] Comment on above: Performed By: #### C JUNAID, 1986-08, CBCA, 4489, 4498-2, 78021-8 #### [facility] ([id number]) [address] [address] Neutrophils/100 WBC (Bld) 67.4 % Normal [facility] Comment on above: Performed By: #### C JUNAID, 1986-08, CBCA, 448-9, 4498-2, 93034-3 #### [facility] ([id number]) [address] [address] Platelet mean volume (Bld) [Entitic vol] 7.6 fL Normal 7-12 [facility] Comment on above: Performed By: #### Nataliia QUIROGA, 1986-08, CBCA, 448-9, 4498-2, 92699-4 #### [facility] ([id number]) [address] [address] Platelets (Bld) [#/Vol] 322 10*3/uL Normal 150-450 [facility] Comment on above: Performed By: #### C JUNAID, 1986-08, CBCA, 4485-9, 4498-2, 02637-3 #### [facility] ([id number]) [address], [address] [place] [address] RBC COUNT 4.04 X10E12/L Normal 3.80-5.20 [facility] Comment on above: Performed By: #### Nataliia QUIROGA, 1986-08, CBCA, 4485-9, 4498-2, 93102-1 #### [facility] ([id number]) [address], [address] [place] [address] WBC (Bld) [#/Vol] 8.2 10*3/uL Normal 4.0-11.0 [facility] Comment on above: Performed By: #### Nataliia QUIROGA, 1986-08, CBCA, 4485-9, 4498-2, 25056-2 #### [facility] ([id number]) [address], [address] [place] [address] COMPREHENSIVE METABOLIC PANE Gerardo 05-03-2023 Albumin [Mass/Vol] 3.9 g/dL Normal 3.2-5.3 [facility] Comment on above: Performed By: #### Nataliia QUIROGA, 1986-08, CBCA, 4485-9, 4498-2, 33656-9 #### [facility] ([id number]) [address], [address] [place] [address] ALP [Catalytic activity/Vol] 51 U/L Normal 39-130 [facility] Comment on above: Performed By: #### Nataliia QUIROGA, 1986-08, CBCA, 4485-9, 4498-2, 57272-9 #### [facility] ([id number]) [address], [address] [place] [address] ALT [Catalytic activity/Vol] 9 U/L Normal 0-31 [facility] Comment on above: Performed By: #### Nataliia QUIROGA, 1986-08, CBCA, 4485-9, 4498-2, 20542-4 #### [facility] ([id number]) [address], [address] [place] [address] Anion gap [Moles/Vol] 10 mmol/L Normal 5-15 [facility] Comment on above: Performed By: #### C JUNAID, 1986-08, CBCA, 4485-9, 4498-2, 73749-2 #### [facility] ([id number]) [address], [address] [place] [address] AST [Catalytic activity/Vol] 12 U/L Normal 0-41 [facility] Comment on above: Performed By: #### C UJNAID, 1986-08, CBCA, 4485-9, 4498-2, 15417-6 #### [facility] ([id number]) [address], [address] [place] [address] Bilirubin [Mass/Vol] 0.2 mg/dL Low 0.3-1.2 [facility] Comment on above: Performed By: #### C JUNAID, 1986-08, CBCA, 4485-9, 4498-2, 52195-8 #### [facility] ([id number]) [address], [address] [place] [address] Calcium [Mass/Vol] 8.7 mg/dL Normal 8.5-10.5 [facility] Comment on above: Performed By: #### C JUNAID, 1986-08, CBCA, 4485-9, 4498-2, 44841-8 #### [facility] ([id number]) [address], [address] [place] [address] Chloride [Moles/Vol] 102 mmol/L Normal 98-109 [facility] Comment on above: Performed By: #### C JUNAID, 1986-08, CBCA, 4485-9, 4498-2, 74484-4 #### [facility] ([id number]) [address], [address] [place] [address] CO2 [Moles/Vol] 31 mmol/L Normal 22-32 [facility] Comment on above: Performed By: #### C JUNAID, 1986-08, CBCA, 4485-9, 4498-2, 98252-8 #### [facility] ([id number]) [address] [place] [address] Creatinine [Mass/Vol] 1.56 mg/dL High 0.40-1.00 [facility] Comment on above: Result Comment: METH OD TRACEABLE TO IDMS STANDARD Performed By: #### C JUNAID, 1986-08, CBCA, 4485-9, 4498-2, 70319-7 #### [facility] ([id number]) [address] [address] GFR/1.73 sq M.predicted among non-blacks MDRD (S/P/Bld) [Vol rate/Area] 45 mL/min/{1.73_m2} Low >59 [facility] Comment on above: Result Comment: Reported eGFR is based on the CKD-EPI 2020 equation that does not use a race coefficient. Performed By: #### C JUNAID, 1986-08, CBCA, 4485-9, 4498-2, 25092-1 #### [facility] ([id number]) [address] [address] Glucose [Mass/Vol] 112 mg/dL High 65-99 [facility] Comment on above: Performed By: #### Nataliia QUIROGA, 1986-08, CBCA, 4485-9, 4498-2, 06094-9 #### [facility] ([id number]) [address] [place] [address] Potassium [Moles/Vol] 3.5 mmol/L Normal 3.5-5.0 [facility] Comment on above: Performed By: #### Nataliia QUIROGA, 1986-08, CBCA, 4485-9, 4498-2, 00050-3 #### [facility] ([id number]) [address] [place] [address] Protein [Mass/Vol] 6.3 g/dL Normal 6.0-8.0 [facility] Comment on above: Performed By: #### Nataliia QUIROGA, 1986-08, CBCA, 4485-9, 4498-2, 32710-8 #### [facility] ([id number]) [address], [address] [place] [address] Sodium [Moles/Vol] 143 mmol/L Normal 134-146 [facility] Comment on above: Performed By: #### Nataliia QUIROGA, 1986-08, CBCA, 4485-9, 4498-2, 70747-9 #### [facility] ([id number]) [address], [address] [place] [address] Urea nitrogen [Mass/Vol] 25 mg/dL High 5-23 [facility] Comment on above: Performed By: #### Nataliia QUIROGA, 1986-08, CBCA, 4485-9, 4498-2, 96425-8 #### [facility] ([id number]) [address], [address] [place] [address] CRP [Mass/Vol]on 05-03-2023 C REACTIVE PROTEIN 0.1 mg/dL Normal 0.000-0.744 [facility] Comment on above: Performed By: #### Nataliia QUIROGA, 1986-08, CBCA, 4485-9, 4498-2, 03503-6 #### [facility] ([id number]) [address], [address] [place] [address] Complement C3 [Mass/Vol]on 0 05-03-2023 COMPLEMENT C3 124 mg/dL Normal 86-184 [facility] Comment on above: Performed By: #### Nataliia QUIROGA, 1986-08, CBCA, 4485-9, 4498-2, 96804-2 #### [facility] ([id number]) [address], [address] [place] [address] Complement C4 [Mass/Vol]on 0 05-03-2023 COMPLEMENT C4 21 mg/dL Normal 16-47 [facility] Comment on above: Performed By: #### C JUNAID, 1986-08, CBCA, 4485-9, 4498-2, 90778-7 #### [facility] ([id number]) [address], [address] [place] [address] ESR Photometric method (Bld) [Velocity]on 05-03-2023 ESR, ERYTHROCYTE SEDIMENTATION RATE 14 mm/h Normal 0-20 [facility] Comment on above: Performed By: #### C JUNAID, 1986-08, CBCA, 4485-9, 4498-2, 38075-9 #### [facility] ([id number]) [address], [address] [place] [address] PROTEIN CREAT RATIOon 2023 RANDOM URINE PROTEIN 3040 mg/L High <120 [facility] Comment on above: Performed By: #### U PCR #### [facility] ([id number]) [address], [address] [address] U/PRO/DISABILITY MANAGER RATIO CALC 1.59 High <0.2 [facility] Comment on above: Result Comment: Neph rotic Syndrome is associated with ratios >3.5 Performed By: #### U PCR #### [facility] ([id number]) [address], [facility] [address] [place] [address] URINE CREATININE,RDM 190.94 mg/dL Normal [facility] Comment on above: Performed By: #### U PCR #### [facility] ([id number]) [address], [address] [place] [address] URINALYSISon 05-03-2023 Bilirubin Ql (U) Negative Normal NEG [facility] Comment on above: Performed By: #### U PCR #### [facility] ([id number]) [address], [address] [place] [address] BLOOD/HGB Large Abnormal NEG [facility] Comment on above: Performed By: #### U PCR #### [facility] ([id number]) [address] [place] [address] Color (U) YELLOW Normal YELLOW [facility] Comment on above: Performed By: #### U PCR #### [facility] ([id number]) [address] [facility] [place] [address] Glucose Ql (U) Negative Normal NEG [facility] Comment on above: Performed By: #### U PCR #### [facility] ([id number]) [address] [facility] [place] [address] Ketones Ql (U) Negative Normal NEG [facility] Comment on above: Performed By: #### U PCR #### [facility] ([id number]) [address], [address] [place] [address] Leukocyte esterase Test strip Ql (U) Negative Normal NEG [facility] Comment on above: Performed By: #### U PCR #### [facility] ([id number]) [address] [place] [address] MUCOUS PRESENT Abnormal NONE [facility] Comment on above: Performed By: #### U PCR #### [facility] ([id number]) [address] [place] [address] Nitrite Ql (U) Negative Normal NEG [facility] Comment on above: Performed By: #### U PCR #### [facility] ([id number]) [address] [facility] [place] [address] pH (U) 6.0 [pH] Normal 5.0-8.5 [facility] Comment on above: Performed By: #### U PCR #### [facility] ([id number]) [address] [place] [address] Protein Ql (U) 200 mg/dL Abnormal NEG [facility] Comment on above: Performed By: #### U PCR #### [facility] ([id number]) [address] [facility] [address] [place] [address] R.B.CELLS 69 /hpf High 0-5 [facility] Comment on above: Performed By: #### U PCR #### [facility] ([id number]) [address] [place] [address] [address] [place] [address] Specific gravity (U) [Rel density] 1.019 Normal 1.003-1.035 [facility] Comment on above: Performed By: #### U PCR #### [facility] ([id number]) [address] [facility] [address] [place] [address] SQUAMOUS EPITHELIUM <1 Normal 0-5 [facility] Comment on above: Performed By: #### U PCR #### [facility] ([id number]) [facility] [address] [place] [address] TURBIDITY HAZY Abnormal CLEAR [facility] Comment on above: Performed By: #### U PCR #### [facility] ([id number]) [address] [facility] [address] [place] [address] Urobilinogen (U) [Mass/Vol] mg/dL Normal <1.1 [facility] Comment on above: Performed By: #### U PCR #### [facility] ([id number]) [address] [facility] [address] [place] [address] W.B.CELLS 0 /hpf Normal 0-5 [facility] Comment on above: Performed By: #### U PCR #### [facility] ([id number]) [facility]0 [facility], [address] [place] [address] CHEMISTRYOrdered By: SYSTEM SYSTEM on 08-10-2022 Anion [...] rate/Area] mL/min/1.73 m2 Normal >=59mL/min/1. 73 m2 [facility] Chem S Glucose [Mass/Vol] 95 mg/dL Normal 55 - 199 mg/dL [facility]isol Magnesium [Mass/Vol] 1.8 mg/dL Normal 1.3 - 2.4 mg/dL [facility] Potassium [Moles/Vol] 3.6 mmol/L Normal 3.5 - 5.3 mmol/L [facility] Sodium [Moles/Vol] 138 mmol/L Normal 135 - 145 mmol/L [facility] Urea nitrogen [Mass/Vol] 12 mg/dL Normal 5 - 21 mg/dL [facility] Urea nitrogen/Creatinine [Mass ratio] 17 mg/mg Normal 10 - 20 [facility] CHEMISTRYOrdered By: Lab ROP User on 07-11-2022 Glucose [Mass/Vol] 82 mg/dL Normal 55 - 99 mg/dL [facility] C POC Subsection Comment on above: Result Comment: Erin nida Meter POC Device SN [id number] Invalid Interpretation Code FT POC Subsection POC User ID [id number] Invalid Interpretation Code [facility] POC Subsection POC Username CHRISTOPHER PANCHAL Invalid Interpretation Code [facility] POC Subsection PAP ACOG PANEL 1: 30 to 65on 03-23-2022 . . Normal [facility] Comment on above: Result Comment: Perf ormed at: WB Performed By: #### [id number] #### [facility] [address] [address] [address] Naomi Irizarry Age Gdln ACOG Testing 30-65 Normal [facility] Comment on above: Performed By: #### [id number] #### [facility] [address] [address] [address] Naomi Irizarry DIAGNOSIS: Comment Normal [facility] Comment on above: Result Comment: NEGA TIVE FOR INTRAEPITHELIAL LESION OR MALIGNANCY. Performed at: WB Performed By: #### [id number] #### [facility] [address] [place] [address] Dr. Naomi Irizarry HPV Aptima Positive Abnormal Negative [facility] Comment on above: Result Comment: This nucleic acid amplification test detects fourteen high-risk HPV types (16,18,31,33,35,39,45,51,52,56,58,59,66,68) without differentiation. Performed at: =G Performed By: #### [id number] #### [facility] [address] [place] [address] Dr. Naomi Irizarry HPV Genotype 16 Negative Normal Negative [facility] Comment on above: Performed By: #### [id number] #### [facility] [address] [address] [address] Naomi Irizarry HPV Genotype 18,45 Negative Normal Negative [facility] Comment on above: Performed By: #### 4 [id number] #### [facility] [address] [address] [address] Naomi Irizarry HPV Genotype Reflex Comment Normal [facility] Comment on above: Result Comment: Angelica sarmiento, see HPV Genotype results. Performed at: WB Performed By: #### [id number] #### [facility] [address] [place] [address] Dr. Naomi Irizarry Methodology: Comment Normal [facility] Comment on above: Result Comment: This liquid based ThinPrep(R) pap test was screened with the use of an image guided system. Performed at: WB Performed By: #### [id number] #### [facility] [address] [place] [address] Dr. Naomi Irizarry Note: Comment Normal [facility] Comment on above: Result Comment: The Pap smear is a screening test designed to aid in the detection of premalignant and malignant conditions of the uterine cervix. It is not a diagnostic procedure and should not be used as the sole means of detecting cervical cancer. Both false-positive and false-negative reports do occur. . Performed at: WB Performed By: #### [id number] #### [facility] [address] [place] [address] Dr. Naomi Irizarry Performed by: Comment Normal [facility] Comment on above: Result Comment: Tong Boone Rotoprinter (ASCP) Performed at: WB Performed By: #### [id number] #### [facility] [address] [place] [address] Dr. Naomi Irizarry Specimen adequacy: Comment Normal [facility] Comment on above: Result Comment: Sati sfactory for evaluation. Endocervical and/or squamous metaplastic cells (endocervical component) are present. Performed at: WB Performed By: #### [id number] #### [facility] [address] [place] [address] Dr. Naomi Irizarry CHEMISTRYOrdered By: SYSTEM SYSTEM [...] 108 mmol/L Normal 101 - 111 mmol/L [facility] CO2 [Moles/Vol] 29 mmol/L Normal 21 - 31 mmol/L [facility] Creatinine [Mass/Vol] 0.9 mg/dL Normal 0.5 - 1.3 mg/dL [facility] GFR/1.73 sq M.predicted among blacks MDRD (S/P/Bld) [Vol rate/Area] mL/min/1.73 m2 Normal >=59mL/min/1. 73 m2 [facility] Chem S GFR/1.73 sq M.predicted among non-blacks MDRD (S/P/Bld) [Vol rate/Area] mL/min/1.73 m2 Normal >=59mL/min/1. 73 m2 [facility] Chem S Globulin (S) [Mass/Vol] 3.9 g/dL [...] 12.9 % Normal 10.9 - 14.2 % [facility] HemeAutoSS Hematocrit (Bld) [Volume fraction] 42.7 % Normal 34.0 - 46.0 % [facility] HemeAutoS S Hemoglobin (Bld) [Mass/Vol] 15.0 g/dL Normal 12.0 - 16.0 gm/dL [facility] HemeAutoSS MCH (RBC) [Entitic mass] 31.7 pg Normal 27.0 - 34.0 pg [facility] HemeAutoSS MCHC (RBC) [Mass/Vol] 35.1 g/dL Normal 31.4 - 36.0 gm/dL [facility] HemeAutoSS MCV (RBC) [Entitic vol] 90.2 fL Normal 80.0 - 100.0 fL [facility] HemeAutoSS Platelet mean volume (Bld) [Entitic vol] 8.1 fL Normal 6.4 - 10.8 fL [facility] HemeAutoSS Platelets (Bld) [#/Vol] 238.0 E9/L Normal 150.0 - 500.0 E9/L [facility] HemeAutoSS RBC (Bld) [#/Vol] 4.7 E12/L Normal 4.3 - 5.9 E12/L [facility] HemeAutoSS WBC corrected for nucl RBC Auto (Bld) [#/Vol] 8.1 E9/L Normal 4.0 - 11.0 E9/L [facility] HemeAutoSS Vital Signs Date Time Vital Sign Value Performing Clinician Facility 07-09-2024 12:41-0400 Body height 172.7 cm Sherman Calle MD Work Phone: [facility] 07-09-2024 12:41-0400 Body mass index (BMI) [Ratio] 41.37 kg/m2 Sherman Calle MD Work Phone: [facility] 07-09-2024 12:41-0400 Body weight 123.38 kg Sherman Calle MD Work Phone: [facility] 07-09-2024 12:41-0400 Diastolic blood pressure 74 mm[Hg] Sherman Calle MD Work Phone: [facility] 07-09-2024 12:41-0400 Respiratory rate 18 /min Sherman Calle MD Work Phone: [facility] 07-09-2024 12:41-0400 Systolic blood pressure 138 mm[Hg] [facility] 07-08-2024 08:23-0400 Body height 172.7 cm Loretta Mici PA-C Work Phone: [employer] 07-08-2024 08:23-0400 Body mass index (BMI) [Ratio] 41.66 kg/m2 Loretta Mici PA-C [facility] 07-08-2024 08:23-0400 Body weight 124.29 kg Loretta Mici PA-C [facility] 07-08-2024 08:23-0400 Diastolic blood pressure 70 mm[Hg] L[facility]-C [facility] 07-08-[facility]24 08:23-0400 Heart rate 74 /min Loretta Mici PA-C [facility] 07-08-2024 08:23-0400 Systolic blood pressure 130 mm[Hg] Loretta Mici PA-C [facility] 06-25-2024 09:31-0500 Blood Pressure Location [facility] 06-25-2024 09:31-0500 Diastolic blood pressure 99 mm[Hg] [facility] 06-25-2024 09:31-0500 Heart rate 100 /min [facility] 06-25-2024 09:31-0500 Respiratory rate 14 /min [place] [facility] [facility] 06-25-2024 09:31-0500 Systolic blood pressure 133 mm[Hg] Spring Sarmini [facility] 06-10-2024 13:15-0500 Body mass index (BMI) [Ratio] 42.27 kg/m2 Mayco Jose Ramon DO Work Phone: [facility] 06-10-2024 13:15-0500 Body weight 126.1 kg Mayco Jose Ramon DO Work Phone: [facility] 06-10-2024 13:15-0500 Diastolic blood pressure 76 mm[Hg] Mayco Jose Ramon DO Work Phone: [facility] 06-10-2024 13:15-0500 Systolic blood pressure 128 mm[Hg] Mayco Jose Ramon DO Work Phone: [facility] 05-28-2024 13:04-0500 Body mass index (BMI) [Ratio] 41.33 kg/m2 Mayco Jose Ramon DO Work Phone: [facility] 05-28-2024 13:04-0500 Body weight 123.29 kg Mayco Jose Ramon DO Work Phone: [facility] 05-28-2024 13:04-0500 Diastolic blood pressure 88 mm[Hg] Mayco Jose Ramon DO Work Phone: [facility] 05-28-2024 13:04-0500 Systolic blood pressure 130 mm[Hg] Mayco Jose Ramon DO Work Phone: [facility] 05-19-2024 10:30-0500 Diastolic blood pressure 72 mm[Hg] CYNTHIA PAULINA [facility] 05-19-2024 10:30-0500 Heart rate 68 /min CYNTHIA PAULINA [facility] 05-19-2024 10:30-0500 Respiratory rate 16 /min CYNTHIA PAULINA [facility] 05-19-2024 10:30-0500 Systolic blood pressure 128 mm[Hg] CYNTHIA PAULINA [facility] 05-13-2024 13:12-0500 Body mass index (BMI) [Ratio] 42.85 kg/m2 Mayco Jose Ramon DO Work Phone: [facility] 05-13-2024 13:12-0500 Body weight 127.82 kg Mayco Jose Ramon DO Work Phone: [facility] 05-13-2024 13:12-0500 Diastolic blood pressure 76 mm[Hg] Mayco Jose Ramon DO Work Phone: [facility] 05-13-2024 13:12-0500 Systolic blood pressure 116 mm[Hg] Mayco Jose Ramon DO Work Phone: [facility] 04-09-2024 13:36-0500 Body height 172.7 cm Sherman Calle MD Work Phone: [facility] 04-09-2024 13:36-0500 Body mass index (BMI) [Ratio] 42.72 kg/m2 Sherman Calle MD Work Phone: [facility] 04-09-2024 13:36-0500 Body weight 127.46 kg Sherman Calle MD Work Phone: [facility] 04-09-2024 13:36-0500 Diastolic blood pressure 84 mm[Hg] Sherman Calle MD Work Phone: [facility] 04-09-2024 13:36-0500 Respiratory rate 18 /min Sherman Calle MD Work Phone: [facility] 04-09-2024 13:36-0500 Systolic blood pressure 138 mm[Hg] Sherman Calle MD Work Phone: [facility] 03-14-2024 10:48-0500 Body height 172.7 cm Arianna Alexander PA-C Work Phone: [facility] 03-14-2024 10:48-0500 Body mass index (BMI) [Ratio] 42.13 kg/m2 Arianna Alexander PA-C Work Phone: [facility] [employer] [facility] 03-14-2024 10:48-0500 Body weight 125.65 kg Arianna Alexander PA-C Work Phone: [facility] [employer] [facility] 03-14-2024 10:48-0500 Diastolic blood pressure 75 mm[Hg] Arianna Alexander PA-C Work Phone: [facility] 03-14-2024 10:48-0500 Heart rate 88 /min Arianna Alexander PA-C Work Phone: [facility] 03-14-2024 10:48-0500 Systolic blood pressure 133 mm[Hg] Arianna Alexander PA-C Work Phone: [facility] 02-05-2024 16:33-0400 Diastolic blood pressure 89 mm[Hg] Diogo Bray MD Work Phone: [facility] 02-05-2024 16:33-0400 Heart rate 85 /min Diogo Bray MD Work Phone: [facility] 02-05-2024 16:33-0400 Respiratory rate 15 /min Diogo Bray MD Work Phone: [facility] 02-05-2024 16:33-0400 SaO2% (BldA) [Mass fraction] 95 % Diogo Bray MD Work Phone: [facility] 02-05-2024 16:33-0400 Systolic blood pressure 150 mm[Hg] Diogo Bray MD Work Phone: [facility] 02-05-2024 07:30-0400 Body temperature 98.49 [degF] Diogo Bray MD Work Phone: [facility] 02-03-2024 05:00-0400 Body mass index (BMI) [Ratio] 42.08 kg/m2 Diogo Bray MD Work Phone: [facility] 02-03-2024 05:00-0400 Body weight 125.5 kg Diogo Bray MD Work Phone: [facility] 01-31-2024 15:35-0400 Body height 172.7 cm Diogo Bray MD Work Phone: [facility] 01-30-2024 10:16-0400 Body height 172.7 cm Jenny Cornell MD Work Phone: [facility] 01-30-2024 10:16-0400 Body mass index (BMI) [Ratio] 41.81 kg/m2 Jenny Cornell MD Work Phone: [facility] 01-30-2024 10:16-0400 Body weight 124.74 kg Jenny Cornell MD Work Phone: [facility] 01-30-2024 10:16-0400 Respiratory rate 18 /min Jenny Cornell MD Work Phone: [facility] 01-17-2024 09:04-0400 Body height 172.7 cm Sherman Calle MD Work Phone: [facility] 01-17-2024 09:04-0400 Body mass index (BMI) [Ratio] 41.06 kg/m2 Sherman Calle MD Work Phone: [facility] 01-17-2024 09:04-0400 Body weight 122.47 kg Sherman Calle MD Work Phone: [facility] 01-17-2024 09:04-0400 Diastolic blood pressure 74 mm[Hg] Sherman Calle MD Work Phone: [facility] 01-17-2024 09:04-0400 Respiratory rate 18 /min Sherman Calle MD Work Phone: [facility] 01-17-2024 09:04-0400 Systolic blood pressure 128 mm[Hg] Sherman Calle MD Work Phone: [facility] 01-03-2024 14:02-0400 Diastolic blood pressure 75 mm[Hg] Chilo Bain MD Work Phone: [facility] 01-03-2024 14:02-0400 Heart rate 115 /min Chilo Bain MD Work Phone: [facility] 01-03-2024 14:02-0400 Systolic blood pressure 119 mm[Hg] Chilo Bain MD Work Phone: [facility] 01-03-2024 14:00-0400 Body height 172.7 cm Chilo Bain MD Work Phone: [facility] 01-03-2024 14:00-0400 Body mass index (BMI) [Ratio] 41.66 kg/m2 Chilo Bain MD Work Phone: [facility] 01-03-2024 14:00-0400 Body weight 124.29 kg Chilo Bain MD Work Phone: [facility] 12-24-2023 12:59-0400 Body height 172.7 cm Arianna ALCALAM Work Phone: [facility] 12-24-2023 12:59-0400 Body mass index (BMI) [Ratio] 40.29 kg/m2 Arianna ALCALAM Work Phone: [facility] 12-24-2023 12:59-0400 Body weight 120.2 kg Arianna De Luna DPM Work Phone: [facility] 11-28-2023 13:59-0400 Body height 172.7 cm Jeff Toro MD Work Phone: [facility] 11-28-2023 13:59-0400 Body mass index (BMI) [Ratio] 40.6 kg/m2 Jeff Toro MD Work Phone: [facility] 11-28-2023 13:59-0400 Body temperature 98.29 [degF] Jeff Toro MD Work Phone: [facility] 11-28-2023 13:59-0400 Body weight 121.11 kg Jeff Toro MD Work Phone: [facility] 10-08-2023 10:55-0400 Body height 172.7 cm Sherman Calle MD Work Phone: [facility] 10-08-2023 10:55-0400 Body mass index (BMI) [Ratio] 40.15 kg/m2 Sherman Calle MD Work Phone: [facility] 10-08-2023 10:55-0400 Body weight 119.75 kg Sherman Calle MD Work Phone: [facility] 10-08-2023 10:55-0400 Diastolic blood pressure 72 mm[Hg] Sherman Calle MD Work Phone: [facility] 10-08-2023 10:55-0400 Respiratory rate 18 /min Sherman Calle MD Work Phone: [facility] 10-08-2023 10:55-0400 Systolic blood pressure 138 mm[Hg] Sherman Calle MD Work Phone: [facility] 09-07-2023 09:22-0400 Body height 172.7 cm Arianna Alexander PA-C Work Phone: [facility] 09-07-2023 09:22-0400 Body mass index (BMI) [Ratio] 39.73 kg/m2 Arianna Alexander PA-C Work Phone: [facility] 09-07-2023 09:22-0400 Body weight 118.48 kg Arianna Alexander PA-C Work Phone: [facility] 09-07-2023 09:22-0400 Diastolic blood pressure 74 mm[Hg] Arianna Alexander PA-C Work Phone: [facility] [employer] [facility] 09-07-2023 09:22-0400 Heart rate 76 /min Arianna Alexander PA-C Work Phone: [facility] [employer] [facility] 09-07-2023 09:22-0400 Systolic blood pressure 137 mm[Hg] Arianna Alexander PA-C Work Phone: [facility] [employer] [facility] 08-30-2023 10:07-0400 Body height 172.7 cm Sherman Calle MD Work Phone: [facility] [employer] [facility] 08-30-2023 10:07-0400 Body mass index (BMI) [Ratio] 39.54 kg/m2 Sherman Calle MD Work Phone: [facility] [employer] [facility] 08-30-2023 10:07-0400 Body weight 117.94 kg Sherman Calle MD Work Phone: [facility] [employer] [facility] 08-30-2023 10:07-0400 Diastolic blood pressure 78 mm[Hg] Sherman Calle MD Work Phone: [facility] [employer] [facility] 08-30-2023 10:07-0400 Respiratory rate 18 /min Sherman Calle MD Work Phone: [facility] [employer] [facility] 08-30-2023 10:07-0400 Systolic blood pressure 138 mm[Hg] Sherman Calle MD Work Phone: [facility] 08-23-2023 12:35-0400 Blood Pressure Location Spring Sarmini [facility] 08-23-2023 12:35-0400 Diastolic blood pressure 90 mm[Hg] Spring Sarmini [facility] 08-23-2023 12:35-0400 Heart rate 80 /min Spring Sarmini [facility] 08-23-2023 12:35-0400 Respiratory rate 18 /min Saw Huynh [facility] 08-23-2023 12:35-0400 Systolic blood pressure 142 mm[Hg] Saw Huynh [facility] 08-02-2023 09:24-0400 Body height 170.2 cm Mague Portillo DO Work Phone: [facility] [employer] 08-02-2023 09:24-0400 Body mass index (BMI) [Ratio] 40.22 kg/m2 Mague Portillo DO Work Phone: [facility] [employer] [facility] 08-02-2023 09:24-0400 Body weight 116.48 kg Mague Portillo DO Work Phone: [facility] 08-02-2023 09:24-0400 Diastolic blood pressure 74 mm[Hg] Mague Portillo DO Work Phone: [facility] [employer] [facility] 08-02-2023 09:24-0400 Heart rate 83 /min Mague Portillo DO Work Phone: [facility] 08-02-2023 09:24-0400 SaO2% (BldA) [Mass fraction] 97 % Mague Portillo DO Work Phone: [facility] 08-02-2023 09:24-0400 Systolic blood pressure 116 mm[Hg] Mague Portillo DO Work Phone: [facility] [employer] [facility] 07-31-2023 12:53-0400 Body height 172.7 cm Sherman Calle MD Work Phone: [facility] [employer] [facility] 07-31-2023 12:53-0400 Body mass index (BMI) [Ratio] 39.24 kg/m2 Sherman Calle MD Work Phone: [facility] [employer] [facility] 07-31-2023 12:53-0400 Body weight 117.03 kg Sherman Calle MD Work Phone: [facility] 07-31-2023 12:53-0400 Diastolic blood pressure 78 mm[Hg] Sherman Calle MD Work Phone: [facility] 07-31-2023 12:53-0400 Respiratory rate 18 /min Sherman Calle MD Work Phone: [facility] [employer] [facility] 07-31-2023 12:53-0400 Systolic blood pressure 140 mm[Hg] Sherman Calle MD Work Phone: [facility] 07-12-2023 09:27-0400 Diastolic blood pressure 88 mm[Hg] Sade Rosas MD Work Phone: [facility] 07-12-2023 09:27-0400 Heart rate 81 /min Sade Rosas MD Work Phone: [facility] 07-12-2023 09:27-0400 Systolic blood pressure 139 mm[Hg] Sade Rosas MD Work Phone: [facility] 07-12-2023 09:21-0400 Body height 172.7 cm Sade Rosas MD Work Phone: [facility] 07-12-2023 09:21-0400 Body mass index (BMI) [Ratio] 39.56 kg/m2 Sade Rosas MD Work Phone: [facility] 07-12-2023 09:21-0400 Body weight 118.03 kg Sade Rosas MD Work Phone: [facility] 07-12-2023 09:21-0400 SaO2% (BldA) [Mass fraction] 97 % Sade Rosas MD Work Phone: [facility] 07-05-2023 09:57-0500 Body height 172.7 cm Arianna Alexander PA-C Work Phone: [facility] 07-05-2023 09:57-0500 Body mass index (BMI) [Ratio] 38.93 kg/m2 Arianna Alexander PA-C Work Phone: [facility] 07-05-2023 09:57-0500 Body weight 116.12 kg Arianna Joaquin JOY Work Phone: [facility] 07-05-2023 09:57-0500 Diastolic blood pressure 83 mm[Hg] Arianna Joaquin MICHAUD-C Work Phone: [facility] 07-05-2023 09:57-0500 Heart rate 72 /min Arianna Joaquin JOY Work Phone: [facility] 07-05-2023 09:57-0500 Systolic blood pressure 134 mm[Hg] Arianna Joaquin MICHAUD-C Work Phone: [facility] 07-04-2023 07:56-0500 Body height 172.7 cm Sherman Calle MD Work Phone: [facility] 07-04-2023 07:56-0500 Body mass index (BMI) [Ratio] 39.54 kg/m2 Sherman Calle MD Work Phone: [facility] 07-04-2023 07:56-0500 Body weight 117.94 kg Sherman Calle MD Work Phone: [facility] 07-04-2023 07:56-0500 Diastolic blood pressure 78 mm[Hg] Sherman Calle MD Work Phone: [facility] 07-04-2023 07:56-0500 Respiratory rate 18 /min Sherman Calle MD Work Phone: [facility] 07-04-2023 07:56-0500 Systolic blood pressure 128 mm[Hg] Sherman Calle MD Work Phone: [facility] 06-27-2023 08:36-0500 Body height 172.7 cm Shereen Harmon MD Work Phone: [facility] 06-27-2023 08:36-0500 Body mass index (BMI) [Ratio] 38.5 kg/m2 Shereen Harmon MD Work Phone: [facility] 06-27-2023 08:36-0500 Body weight 114.85 kg Shereen Harmon MD Work Phone: [facility] 06-27-2023 08:36-0500 Diastolic blood pressure 82 mm[Hg] Shereen Harmon MD Work Phone: [facility] 06-27-2023 08:36-0500 Heart rate 57 /min Shereen Harmon MD Work Phone: [facility] 06-27-2023 08:36-0500 SaO2% (BldA) [Mass fraction] 97 % Shereen Harmon MD Work Phone: [facility] 06-27-2023 08:36-0500 Systolic blood pressure 110 mm[Hg] Shereen Harmon MD Work Phone: [facility] 09-05-2022 09:21-0400 Blood Pressure Location CYNTHIA GALLARDO [facility] 09-05-2022 09:21-0400 Diastolic blood pressure 74 mm[Hg] CYNTHIA PAULINA [facility] 09-05-2022 09:21-0400 Heart rate 68 /min CYNTHIA PAULINA [facility] 09-05-2022 09:21-0400 Respiratory rate 16 /min CYNTHIA PAULINA [facility] 09-05-2022 09:21-0400 Systolic blood pressure 138 mm[Hg] CYNTHIA PAULINA [facility] 08-10-2022 12:45-0400 Blood Pressure Location Katrin Resendiz [facility] 08-10-2022 12:45-0400 Body temperature 97.7 [degF] Katrin Resendiz [facility] 08-10-2022 12:45-0400 Diastolic blood pressure 72 mm[Hg] Katrin Resendiz [facility] 08-10-2022 12:45-0400 Heart rate 79 /min Katrin Resendiz [facility] 08-10-2022 12:45-0400 Systolic blood pressure 106 mm[Hg] Katrin Resendiz [facility] 07-17-2022 11:22-0400 Blood Pressure Location Miki Mauricio [facility] [place] 07-17-2022 11:22-0400 Diastolic blood pressure 78 mm[Hg] Miki Mauricio [facility] [place] 07-17-2022 11:22-0400 Heart rate 68 /min Miki Mauricio [facility] [place] 07-17-2022 11:22-0400 Respiratory rate 16 /min Miki Mauricio [facility] [place] 07-17-2022 11:22-0400 Systolic blood pressure 122 mm[Hg] Miki Mauricio [facility] [place] 07-11-2022 12:14-0400 Heart rate 74 /min Miki Mauricio [facility] 07-11-2022 12:14-0400 SaO2% (BldA) [Mass fraction] 97 % Miki Mauricio [facility] 07-11-2022 12:14-0400 Body temperature 98.06 [degF] Miki Mourany [facility] 07-11-2022 12:13-0400 Diastolic blood pressure 79 mm[Hg] Miki Mourany [facility] 07-11-2022 12:13-0400 Mean blood pressure 94 mm[Hg] Miki Mourany [facility] 07-11-2022 12:13-0400 Systolic blood pressure 125 mm[Hg] Miki Mourany [facility] 07-11-2022 12:13-0400 Respiratory rate 18 /min Miki Mourany [facility] 07-11-2022 11:03-0400 Heart rate 61 /min Imki Mourany [facility] 07-11-2022 11:03-0400 SaO2% (BldA) [Mass fraction] 100 % Miki Mourany [facility] 07-11-2022 11:03-0400 Body temperature 97.7 [degF] Miki Mourany [facility] 07-11-2022 11:03-0400 Diastolic blood pressure 79 mm[Hg] Miki Mourany [facility] 07-11-2022 11:03-0400 Mean blood pressure 94 mm[Hg] Miki Mourany [facility] 07-11-2022 11:03-0400 Systolic blood pressure 125 mm[Hg] Miki Mourany [facility] 07-11-2022 11:03-0400 Respiratory rate 16 /min Miki Mourany [facility] 07-11-2022 11:00-0400 Body temperature 98.42 [degF] Miki Mourany [facility] 07-11-2022 11:00-0400 Mean blood pressure 103 mm[Hg] Miki Mourany [facility] 07-11-2022 11:00-0400 Respiratory rate 26 /min Miki Mourany [facility] 07-11-2022 10:45-0400 Mean blood pressure 105 mm[Hg] Miki Mourany [facility] 07-11-2022 10:45-0400 Respiratory rate 16 /min Miki Mourany [facility] 07-11-2022 10:30-0400 Mean blood pressure 102 mm[Hg] Miki Mourany [facility] 07-11-2022 10:30-0400 Respiratory rate 12 /min Miki Duongurany [facility] 07-11-2022 09:37-0400 Body temperature 97.88 [degF] Miki Mourany [facility] 07-11-2022 07:00-0400 Heart rate 72 /min Miki Duongurany [facility] 02-16-2022 12:27-0400 Diastolic blood pressure 85 mm[Hg] Wu SALAM [facility] 02-16-2022 12:27-0400 Mean blood pressure 102 mm[Hg] Wu SALAM [facility] 02-16-2022 12:27-0400 Systolic blood pressure 137 mm[Hg] Wu SALAM [facility] 02-16-2022 12:23-0400 Blood Pressure Location Wu SALAM [facility] 02-16-2022 12:23-0400 Diastolic blood pressure 83 mm[Hg] Wu SALAM [facility] 02-16-2022 12:23-0400 Heart rate 73 /min Wu SALAM [facility] 02-16-2022 12:23-0400 Respiratory rate 16 /min Wu SALAM [facility] 02-16-2022 12:23-0400 Systolic blood pressure 145 mm[Hg] Wu SALAM [facility] Encounters Encounter Date Encounter Type Care Provider Facility Start: 07-10-2024 End: 07-10-2024 Orders Only Chilo Bain MD Work Phone: [facility] Comment on above: Lupus nephritis, ISN /RPS class IV ([facility]-HCC) (Primary Dx) Start: 07-09-2024 End: 07-09-2024 Office outpatient visit 40 minutes Sherman Calle MD Work Phone: [facility] Comment on above: Systemic lupus eryth ematosus, unspecified SLE type, unspecified organ involvement status (CMS-HCC) (Primary Dx); Stage IV lupus nephritis (WHO) ([facility]); Fibromyalgia; Encounter for technician terminal and repeater use of mycophenolate mofetil Start: 07-08-2024 End: 07-08-2024 Office outpatient visit 15 minutes Loretta Mici PA-C Work Phone: [facility] Comment on above: Pre-op examination ( Primary Dx); Chronic hypertension; Bilateral pulmonary embolism (CMS-HCC) October 2019; Dyspnea on exertion; Systemic lupus erythematosus, unspecified SLE type, unspecified organ involvement status (CMS-HCC) Start: 07-08-2024 End: 07-08-2024 Preprocedural examination done elarmi PA-C Work Phone: [facility] Start: 07-08-2024 [facility]counter for other [facility]ced[facility] Start: 07-08-2024 End: 07-08-2024 ambulatory [facility] Start: 07-07-2024 End: 07-10-2024 Refjefferson Rosas MD Work Phone: [facility] Start: 07-07-2024 End: 07-07-2024 Telephone encounter Joyce Feliz CMA [facility] Start: 06-30-2024 End: 07-02-2024 ambulatory [facility] Start: 06-28-2024 End: 06-28-2024 Emergency department patient visit [facility] Start: 06-26-2024 End: 06-26-2024 [facility] Start: 06-25-2024 End: 06-25-2024 ambulatory Saw Givensmini Facility:[facility] Start: 06-25-2024 End: 06-25-2024 [facility] Start: 06-16-2024 End: 06-17-2024 Clinisync Result Encounter Mayco Jose Ramon DO Work Phone: [facility] External [facility] Unsolicited Start: 06-16-2024 End: 06-17-2024 Clinisync Result Encounter Mayco Jose Ramon DO Work Phone: [facility] Unsolicited Start: 06-12-2024 End: 06-12-2024 Orders Only Juan C Valle MD Work Phone: Y[facility] Start: 06-10-2024 End: 06-10-2024 Bamboo flowsheet Mayco Jose Ramon DO Work Phone: [facility] Start: 06-10-2024 End: 06-10-2024 Bamboo flowsheet Mayco Jose Ramon DO Work Phone: [facility] Start: 06-10-2024 End: 06-10-2024 Office outpatient visit 15 minutes Mayco Jose Ramon DO Work Phone: [facility] Comment on above: Pre-op evaluation; Pelvic pain in female; Abnormal uterine bleeding (AUB) Start: 06-10-2024 End: 06-10-2024 Preprocedural examination done Mayco Jose Ramon DO Work Phone: [facility] Start: 06-10-2024 End: 06-10-2024 ambulatory MAYCO JOSE RAMON Not Available Start: 06-06-2024 End: 06-06-2024 Telephone encounter [facility] Comment on above: 08/13/24 ARIANNA ORTEZ RESCHEDULE Start: 05-28-2024 End: 05-28-2024 Bamboo flowsheet Mayco Jose Ramon DO Work Phone: [facility] Start: 05-28-2024 End: 06-05-2024 Bamboo flowsheet Mayco Jose Ramon DO Work Phone: [facility] Start: 05-28-2024 End: 06-05-2024 Clinisync Result Encounter Mayco Jose Ramon DO Work Phone: [facility] External Department Unsolicited Start: 05-28-2024 End: 05-28-2024 Patient encounter procedure Mayco Jose Ramon DO Work Phone: [facility] Start: 05-28-2024 End: 05-28-2024 Periodic preventive med est patient 18-39 yrs Mayco Jose Ramon DO Work Phone: [facility] Comment on above: Well woman exam with routine gynecological exam Start: 05-28-2024 End: 05-28-2024 ambulatory MAYCO JOSE RAMON Not Available Start: 05-19-2024 End: 05-19-2024 ambulatory CHELI CARMINE Facility:[facility] Start: 05-19-2024 End: 05-19-2024 Patient encounter procedure CYNTHIA GALLARDO [facility] Start: 05-13-2024 End: 05-13-2024 Bamboo flowsheet Mayco Jose Ramon DO Work Phone: [facility] Start: 05-13-2024 End: 05-13-2024 Bamboo flowsheet Mayco Jose Ramon DO Work Phone: [facility] Start: 05-13-2024 End: 05-13-2024 Office outpatient visit 15 minutes Mayco Jose Ramon DO Work Phone: [facility] Comment on above: Encounter to discuss procedure; Pelvic pain in female; H/O: section; Abnormal uterine bleeding (AUB) Start: 05-13-2024 End: 05-13-2024 ambulatory MAYCO JOSE RAMON Not Available Start: 04-29-2024 End: 04-29-2024 Refjefferson Sinha [facility] Comment on above: Stage IV lupus nephr itis (WHO) ([facility]) Start: 04-28-2024 End: 04-28-2024 Emergency department patient visit [facility] Start: 04-15-2024 End: 04-15-2024 Emergency department patient visit [facility] Start: 04-14-2024 End: 04-14-2024 ambulatory MICAELA HOLLIS Not Available Start: 04-14-2024 End: 04-14-2024 Bamboo flowsheet Micaela MICHAUD Work Phone: [facility] Start: 04-14-2024 End: 04-14-2024 Bamboo flowsheet Micaela MICHAUD Work Phone: [facility] Start: 04-14-2024 End: 04-14-2024 Online digital e/m svc est pt <7 d 5-10 minutes Micaela MICHAUD Work Phone: [facility] Comment on above: Pelvic pain in femal e (Primary Dx) Start: 04-09-2024 End: 04-09-2024 Office outpatient visit 40 minutes Sherman Calle MD Work Phone: [facility] Comment on above: Systemic lupus eryth ematosus, unspecified SLE type, unspecified organ involvement status ([facility]); Stage IV lupus nephritis (WHO) ([facility]); Fibromyalgia; Encounter for chcf use of mycophenolate mofetil Start: 04-09-2024 End: 04-09-2024 ambulatory SHERMAN CALLE [facility] Start: 04-09-2024 ambulatory [facility] Start: 04-09-2024 End: 04-09-[address] [facility] Start: 04-04-2024 End: 04-04-2024 ambulatory [facility] Start: 04-02-2024 End: 04-02-2024 Office outpatient visit 15 minutes Micaela MICHAUD Work Phone: [facility] Comment on above: Intrauterine device surveillance; Pelvic pain in female Start: 04-02-2024 End: 04-02-2024 ambulatory MICAELA HOLLIS Not Available Start: 04-02-2024 End: 04-02-2024 Bamboo flowsheet Micaela MICHAUD Work Phone: [facility] Start: 04-02-2024 End: 04-05-2024 Bamboo flowsheet Micaela MICHAUD Work Phone: [facility] Start: 04-02-2024 End: 04-05-2024 External Result Encounter Micaela MICHAUD Work Phone: [facility] External Department Unsolicited Start: 03-18-2024 End: 03-18-2024 Telemedicine consultation with patient Phoebe NYE Work Phone: [facility] Comment on above: BMI 39.0-39.9,adult (Primary Dx) Start: 03-18-2024 End: 03-18-2024 ambulatory PHOEBE LOPEZ [facility] Start: 03-17-2024 End: 03-17-2024 Telephone encounter [facility] Start: 03-14-2024 End: 03-14-2024 ambulatory ARIANNA ALEXANDRE [facility] Start: 03-14-2024 End: 03-14-2024 Office outpatient visit 25 minutes Arianna Alexander PA-C Work Phone: [facility] Comment on above: Migraine without aur a and without status migrainosus, not intractable (Primary Dx); Hemiplegic migraine without status migrainosus, not intractable; Fibromyalgia Start: 03-10-2024 End: 03-10-2024 Telephone encounter Chilo Bain MD Work Phone: [facility] Comment on above: Med Refill Start: 03-04-2024 End: 03-04-2024 Refill Miriam Sparrow CNA [facility] Comment on above: Stage IV lupus nephr itis (WHO) ([facility]); Systemic lupus erythematosus, unspecified SLE type, unspecified organ involvement status ([facility]) Start: 02-11-2024 End: 02-11-2024 ambulatory ORIN Andres [facility] Start: 02-11-2024 End: 02-11-2024 Emergency department patient visit [facility] Start: 02-11-2024 End: 02-18-2024 Telephone encounter Jessica Kelley [facility] Comment on above: Results Start: 02-04-2024 End: 02-04-2024 ambulatory CHRIS [facility] Start: 02-01-2024 End: 02-01-2024 Telephone encounter [facility] Comment on above: LUMBAR PUNCTURE Start: 01-31-2024 End: 02-05-2024 Evaluation and management of inpatient DIOGO JACKSONBAL [facility] Comment on above: Acute nonintractable headache, unspecified headache type (Primary Dx) Start: 01-30-2024 End: 01-31-2024 ambulatory [facility] Start: 01-30-2024 End: 01-30-2024 Office outpatient visit 15 minutes Jenny Cornell MD Work Phone: [facility] Comment on above: Lopez's palsy (Primar y Dx); Tinnitus of left ear Start: 01-30-2024 End: 01-30-2024 ambulatory JENNY CORNELL [facility] Start: 01-29-2024 End: 01-29-2024 [facility]ulatory [facility] Start: 01-29-2024 End: 01-29-2024 Patient encounter procedure CYNTHIA GALLARDO [facility] Start: 01-28-2024 End: 02-01-2024 Telephone encounter [facility] Comment on above: Medical Update Start: 01-27-2024 End: 01-27-2024 Emergency department patient visit [facility] Start: 01-25-2024 End: 01-25-2024 Telephone encounter Neelam Calvillo RN [facility] Start: 01-24-2024 End: 01-24-2024 Emergency department patient visit [facility] Start: 01-24-2024 End: 01-24-2024 Emergency department patient visit [facility] Start: 01-19-2024 End: 01-19-2024 Emergency department patient visit [facility] Start: 01-17-2024 End: 01-17-2024 ambulatory [facility] Start: 01-17-2024 End: 01-17-2024 Office outpatient visit 40 minutes Sherman Calle MD Work Phone: [facility] Comment on above: Systemic lupus eryth ematosus, unspecified SLE type, unspecified organ involvement status (CMS-HCC) (Primary Dx); Stage IV lupus nephritis (WHO) ([facility]); Fibromyalgia; Encounter for technician terminal and repeater use of mycophenolate mofetil Start: 01-17-2024 End: 01-17-2024 ambulatory SHERMAN CALLE [facility] Start: 01-09-2024 End: 01-11-2024 Telephone encounter Elliot Jimenez [facility] Start: [facility]-09-[facility] Start: 01-09-2024 End: 01-09-[address] [facility] Start: 01-03-2024 End: 01-03-2024 Office outpatient visit 25 minutes Chilo Bain MD Work Phone: [facility] Comment on above: Lupus nephritis, ISN /RPS class IV ([facility]) (Primary Dx) Start: 01-01-2024 End: 01-01-2024 ambulatory SADE [facility] Start: 12-28-2023 End: 12-28-2023 Telephone encounter Estefany Bower CMA [facility] Start: 12-24-2023 End: 12-24-2023 Emergency department patient visit [facility] Start: 12-24-2023 End: 12-24-2023 Bamboo flowsheet Arianna De Luna DPM Work Phone: [facility] Start: 12-24-2023 End: 12-24-2023 Bamboo flowsheet Arianna De Luna DPM Work Phone: [facility] Start: 12-24-2023 End: 12-24-2023 Office outpatient visit 15 minutes Arianna De Luna DPM Work Phone: [facility] Comment on above: Right foot pain (Marcy marcelino Dx); Os trigonum; Metatarsus adductus of right foot; Equinus contracture of right ankle; Instability of right ankle joint; Difficulty walking Start: 12-24-2023 End: 12-24-2023 ambulatory ARIANNA DE LUNA Not Available Start: 12-20-2023 End: 12-20-2023 Telephone encounter Chuckie Gregory CMA [facility] Start: 12-14-2023 End: 12-14-2023 Documentation procedure Jeff Toro MD Work Phone: [facility] Start: 12-12-2023 End: 12-12-2023 ambulatory [facility] Start: 12-09-2023 End: 12-12-2023 Lobo Bain MD Work Phone: [facility] Start: 12-03-2023 End: 12-03-2023 ambulatory ARIANNA DE LUNA Not Available Start: 11-28-2023 End: 11-28-2023 Patient encounter procedure Jeff Toro MD Work Phone: [facility] Comment on above: Tinnitus of left ear (Primary Dx); Stage IV lupus nephritis (WHO) ([facility]) Start: 11-28-2023 End: 11-28-2023 ambulatory [facility] Comment on above: Tinnitus, bilateral (Primary Dx) Start: 11-26-2023 End: 11-27-2023 Telephone encounter Miriam Sparrow CNA [facility] Start: 11-19-2023 End: 11-19-2023 ambulatory ARIANNA DE LUNA Not Available Start: 11-19-2023 End: 11-19-2023 Emergency department patient visit [facility] Start: 11-15-2023 End: 11-15-2023 ambulatory [facility] Start: 11-12-2023 End: 11-12-2023 Emergency department patient visit [facility] Start: 11-02-2023 End: 11-02-2023 Emergency department patient visit [facility] Start: 10-24-2023 End: 10-24-2023 ambulatory MAYCO ALBRIGHT Not Available Start: 10-23-2023 End: 10-23-2023 Telemedicine consultation with patient Phoebe NYE Work Phone: [facility] Comment on above: BMI 39.0-39.9,adult (Primary Dx) Start: 10-23-2023 End: 10-23-2023 ambulatory PHOEBE LOPEZ [facility] Start: 10-12-2023 End: 10-12-2023 Telephone encounter Keke Montero CMA [facility] Comment on above: Appointment Start: 10-11-2023 End: 10-11-2023 Telephone encounter Minda Hinkle [facility] Start: 10-08-2023 End: 10-08-2023 Office outpatient visit 40 minutes Sherman Calle MD Work Phone: [facility] Comment on above: Stage IV lupus nephr itis (WHO) ([facility]); Systemic lupus erythematosus, unspecified SLE type, unspecified organ involvement status ([facility]); Encounter for chcf use of mycophenolate mofetil Start: 10-08-2023 End: 10-08-2023 ambulatory [facility] Start: 10-05-2023 ambulatory [facility] Start: 10-05-2023 End: 10-05-[address] [facility] Start: 10-02-2023 End: 10-02-2023 ambulatory [facility] Start: 09-26-2023 End: 09-26-2023 ambulatory MAYCO JOSE RAMON Not Available Start: 09-25-2023 End: 09-25-2023 Refill Donaldo Patel FIELD ATTENDANT-BODY SHOP FLOORPERSON Work Phone: [facility] Start: 09-17-2023 End: 09-17-2023 ambulatory MAYCO JOSE RAMON Not Available Start: 09-11-2023 End: 09-11-2023 Telephone encounter Keke Montero CMA [facility] Comment on above: Med Refill Start: 09-07-2023 End: 09-07-2023 Office outpatient visit 25 minutes Arianna Alexander PA-C Work Phone: [facility] Comment on above: Migraine without aur a and without status migrainosus, not intractable (Primary Dx); Daily headache; Fibromyalgia Start: 09-07-2023 End: 09-07-2023 ambulatory ARIANNA ALEXANDER [facility] Start: 09-06-2023 End: 09-06-2023 Emergency department patient visit CHELI JENNINGS [facility] Start: 09-06-2023 End: 09-06-2023 Telemedicine consultation with patient Phoebe Brennan Mick Work Phone: [facility] Comment on above: BMI 39.0-39.9,adult Start: 09-06-2023 End: 09-06-2023 ambulatory PHOEBEBROOKE LOPEZ [facility] Start: 08-30-2023 End: 08-31-2023 Refjefferson Rosas MD Work Phone: [facility] Start: 08-30-2023 End: 08-30-2023 Office outpatient visit 40 minutes Shreman Calle MD Work Phone: [facility] Comment on above: Stage IV lupus nephr itis (WHO) ([facility]) (Primary Dx); Systemic lupus erythematosus, unspecified SLE type, unspecified organ involvement status ([facility]); Encounter for chcf use of mycophenolate mofetil; FPC systemic steroid user Start: 08-30-2023 End: 08-30-2023 ambulatory SHERMAN CALLE [facility] Start: 08-28-2023 End: 08-28-2023 ambulatory MICAELA HOLLIS Not Available Start: 08-23-2023 End: 08-23-2023 Telephone encounter Aster Guthrie CMA [facility] Start: 08-23-2023 End: 08-23-2023 ambulatory Saw Huynh Facility:[facility] Start: 08-23-2023 End: 08-23-2023 Patient encounter procedure Saw Huynh [facility] Start: 08-22-2023 End: 08-22-2023 ambulatory [facility] Start: 08-22-2023 End: 08-23-2023 Emergency department patient visit MILLA SALOMON [facility] Start: 08-20-2023 End: 08-28-2023 Telephone encounter Sherman Calle MD Work Phone: [facility] [place] [facility] Start: 08-17-2023 End: 08-17-2023 Telephone encounter Jyothi Cerna [facility] Comment on above: medication interacti on Start: 08-16-2023 End: 08-16-2023 ambulatory Mayco Jose Ramon Facility:[facility] Start: 08-16-2023 End: 08-16-2023 ambulatory Mayco Jose Ramon Work Phone: [facility] Work Phone: Start: 08-16-2023 End: 08-16-2023 Departed Referred Mayco Jose Ramon Work Phone: [facility] Start: 08-14-2023 End: 08-14-2023 ambulatory [facility] Start: 08-03-2023 Telephone encounter Keke Montero CMA [facility] Comment on above: Medical Clearence Start: 08-02-2023 End: 08-02-2023 ambulatory [facility] Start: 08-02-2023 End: 08-02-2023 Office outpatient new 30 minutes Mague Pope Elston DO [facility]: [facility] Comment on above: Bilateral pulmonary embolism (CMS-HCC) October 2019 (Primary Dx); Personal history of PE (pulmonary embolism); Dyspnea on exertion; Environmental allergies Start: 07-31-2023 End: 07-31-2023 Office outpatient visit 40 minutes Sherman Calle MD Work Phone: [facility] Comment on above: BMI 39.0-39.9,adult (Primary Dx); Stage IV lupus nephritis (WHO) ([facility]); Systemic lupus erythematosus, unspecified SLE type, unspecified organ involvement status ([facility]); Encounter for chcf use of mycophenolate mofetil Start: 07-31-2023 End: 07-31-2023 ambulatory [facility] Start: 07-26-2023 End: 07-26-2023 ambulatory [facility] Start: 07-23-2023 End: 07-23-2023 ambulatory [facility] Start: 07-16-2023 Telephone encounter Sudha VAUGHN [facility] Start: 07-15-2023 End: 07-15-2023 Emergency department patient visit BILLY Jenkins [facility] Start: 07-13-2023 Telephone encounter Sherri [facility] Comment on above: Prior Authorization Start: 07-12-2023 End: 07-12-2023 Office outpatient visit 40 minutes Sade Rosas MD Work Phone: [facility] Comment on above: Lupus nephritis ([facility]) (Primary Dx); Essential hypertension Start: 07-09-2023 End: 07-09-2023 ambulatory MAYCO ALBRIGHT Not Available Start: 07-06-2023 Telephone encounter Minda Hinkle [facility] Start: 07-06-2023 ambulatory [facility] Start: 07-06-2023 End: 07-06-[address] [facility] Start: 07-05-2023 Documentation procedure [facility] Start: 07-05-2023 End: 07-05-2023 ambulatory [facility] Start: 07-05-2023 End: 07-05-2023 Office outpatient new 60 minutes Arianna Alexander PA-C Work Phone: [facility] Comment on above: Daily headache (Prim jina Dx); Migraine without aura and without status migrainosus, not intractable; Vision changes; Uncontrolled hypertension; Fibromyalgia Start: 07-05-2023 End: 07-05-2023 Office outpatient visit 40 minutes Juan C Valle MD Work Phone: Yolis Rodrigues [facility] Comment on above: Bilateral pulmonary embolism (CMS-HCC) October 2019 (Primary Dx); History of DVT (deep vein thrombosis); Preoperative clearance Start: 07-05-2023 End: 07-05-2023 Preoperative state Juan C Valle MD Work Phone: [facility] Start: 07-04-2023 End: 07-04-2023 Office outpatient visit 40 minutes Sherman Calle MD Work Phone: [facility] Comment on above: Systemic lupus eryth ematosus, unspecified SLE type, unspecified organ involvement status (CMS-HCC) (Primary Dx); Stage IV lupus nephritis (WHO) ([facility]); Encounter for chcf use of mycophenolate mofetil; technician terminal and repeater systemic steroid user; Fibromyalgia Start: 07-04-2023 End: 07-04-2023 ambulatory [facility] Start: 07-03-2023 Telephone encounter Digna Valladares RN [facility] Comment on above: Surgical Or Dental C learance Start: 06-28-2023 Orders Only Dee Dee Rodrigues [facility] Start: 06-27-2023 End: 06-27-2023 Office outpatient visit 25 minutes Shereen Harmon MD Work Phone: [facility] Comment on above: Systemic lupus eryth ematosus, unspecified SLE type, unspecified organ involvement status (CMS-HCC) (Primary Dx); Bilateral pulmonary embolism (CMS-HCC) October 2019; Chest pain, unspecified type Start: 06-26-2023 Telephone encounter Cynthia Dodge CMA [facility] Start: 06-21-2023 Refill Juan C Valle MD Work Phone: [facility] Start: 06-21-2023 [facility] Start: 06-20-2023 End: 06-22-2023 ambulatory DOT VALLEJO [facility] Start: 06-19-2023 Telephone encounter Nora Maciel [facility] Start: 06-19-2023 End: 06-22-2023 Emergency department patient visit ADONAY LAY [facility] Start: 06-19-2023 End: 06-21-2023 ambulatory BILLY Jenkins ZELAYA [facility] Start: 06-18-2023 Telephone encounter Zackery ruth [facility] Start: 06-14-2023 Telephone encounter Keke Montero [facility] Start: 06-14-2023 End: 06-15-2023 ambulatory CHILO BAIN [facility] Start: 06-14-2023 End: 06-14-2023 ambulatory GAMAL FRANKLIN [facility] Start: 06-13-2023 Telephone encounter Yareli Stuart [facility] Comment on above: Stage IV lupus nephr itis (WHO) ([facility]) (Primary Dx); Stage 3 chronic kidney disease, unspecified whether stage 3a or 3b CKD ([facility]) Start: 06-11-2023 Telephone encounter Keke Montero [facility] Start: 06-06-2023 Telephone encounter Digna [facility]adares [facility] Comment on above: Cardiac Clearance Start: 06-05-2023 End: 06-06-2023 ambulatory GAMAL FRANKLIN [facility] Start: 06-05-2023 Telephone encounter Kirstie Cantu i [facility] Start: 06-04-2023 Telephone [facility] Start: 05-18-2023 Telephone encounter Cynthia Dodge CMA [facility] Start: 05-16-2023 Telephone encounter Miriam Jenkins [facility] Start: 05-14-2023 Chart abstracting Gamal smalls MD Work Phone: [facility] Start: 05-03-2023 End: 05-03-2023 ambulatory [facility] Start: 04-25-2023 Documentation procedure Dee Dee Rodrigues [facility] Start: 03-13-2023 End: 03-13-2023 Patient encounter procedure CYNTHIA GALLARDO [facility] Start: 09-05-2022 End: 09-05-2022 Patient encounter procedure CYNTHIA GALLARDO [facility] Start: 08-10-2022 End: 08-10-2022 Patient encounter procedure Katrin Resendiz [facility] Start: 08-10-2022 End: 08-10-2022 Patient encounter procedure Katrin Alice Astrid [facility] Start: 07-17-2022 End: 07-17-2022 Patient encounter procedure Miki Mauricio [facility] [place] Start: 07-11-2022 End: 07-11-2022 Admission to same day surgery center Miki Mauricio [facility] Start: 07-05-2022 ambulatory Issa corbinty:[id number] Start: 03-14-2022 End: 03-14-[address] MAYCO ALBRIGHT Facility:[facility] Start: 02-16-2022 End: 02-16-2022 Patient encounter procedure Jazmin ROBERTSON [facility] Start: 02-16-2022 End: 06-01-2022 Recurring Jazmin ROBERTSON [facility] Start: 02-16-2022 End: 02-16-2022 Patient encounter procedure Jazmin ROBERTSON [facility] Start: 12-12-2021 End: 12-12-2021 ambulatory MELONY THURSTON Facility:[facility] Procedures Date Procedure Procedure Detail Performing Clinician Start: 06-16-2024 XR CHEST 2V Mayco Albright DO Work Phone: Start: 06-16-2024 ALL CBC WITH AUTO DIFF Mayco Jose Ramon DO Work Phone: Start: 06-16-2024 CCF APTT Mayco Jose Ramon DO Work Phone: Start: 06-16-2024 SRMCOH PROTHROMBIN TIME INR W/O COUM Mayco Jose Ramon DO Work Phone: Start: 06-16-2024 ECG 12-LEAD Mayco Albright DO Work Phone: Start: 05-28-2024 IGP,APTIMA HPV,AGE GDLN Mayco Jose Ramon DO Work Phone: Start: 04-02-2024 URINARY TRACT INFECTION (HTRX) Micaela MICHAUD Work Phone: Start: 04-02-2024 Urnls dip stick/tablet rgnt non-auto w/o micrscp Micaela MICHAUD Work Phone: Start: 03-14-2024 Adult depression screening assessment Arianna Alexander PA-C Work Phone: Start: 02-05-2024 Diagnostic [...] 12-24-2023 Radex foot complete minimum 3 views Arianna De Luna DPM Work Phone: Start: 09-07-2023 Follow-up visit Follow-up ARIANNA ALEXANDER Start: 07-05-2023 Adult depression screening assessment Juan C Valle MD Work Phone: Start: 06-19-2023 Adult depression screening assessment Andrésjanethprashanth Lerma [facility] Start: 04-18-2023 Microscopic observation [Identifier] in Cervix by Cyto stain Sade Rosas MD Work Phone: Start: 12-18-2022 Adult depression screening assessment Dee Dee Hernandez RN Start: 03-14-2022 Microscopic observation [Identifier] in Cervix by Cyto stain Dee Dee Hernandez RN Start: 03-23-2020 End: 06-30-2020 H/O: section Previous delivery, antepartum Dee Dee Hernandez RN section Miki matta Cholecystectomy Miki Mauricio H/O: section H/O: secti on Mayco Jose Ramon DO Work Phone: Incision and drainag e of hematoma Miki Mauricio Ligation of fallopian tube J ohprashanth Mauricio Plan of Treatment Date Care Activity Detail Author Start: 03-23-2030 DTaP,Tdap and Td Vaccines (9 - Td or Tdap) DTaP,Tdap and Td Vaccines (9 - Td or Tdap) [facility] Start: 04-18-2026 Screening for malignant neoplasm of cervix Pap Smear [facility] Start: 07-09-2025 Adult BMI Screening [facility] Start: 07-09-2025 Tobacco Screening Tobacco Screening [facility] Start: 07-08-2025 Adult BMI Screening [facility] Start: 07-02-2025 Adult BMI Screening Adult [facility] Screening [facility] Start: 07-01-2025 Tobacco Screening Tobacco [facility]ening [facility] Start: 06-01-2025 End: 06-01-2025 Patient encounter procedure 06/01/2025 1:00 PM EST Office Visit [facility] [address] [place] [id number] Mayco Albright, DO [address] [address] [facility] Start: 04-28-2025 Adult BMI Screening Adult BMI Screening [facility] [facility] Start: 04-28-2025 Tobacco Screening [facility] Start: 04-09-2025 Adult BMI Screening Adult [facility] Start: 04-09-2025 Tobacco Screening [facility] Start: 03-14-2025 Adult BMI Screening Adult [facility] Start: 03-14-2025 Depression Screening [facility] Start: 03-14-2025 Screening for malignant neoplasm of cervix Pap Smear [facility] Start: 03-14-2025 Tobacco Screening Tobacco [facility] Start: 02-02-2025 Adult BMI Screening Adult BMI Screening [facility] Start: 01-31-2025 Depression Screening [facility] Start: 01-31-2025 Tobacco Screening Tobacco Screening [facility] Start: 01-30-2025 Adult BMI Screening Adult BMI Screening [facility] Start: 01-30-2025 Tobacco Screening Tobacco Screening [facility] Start: 01-29-2025 Adult BMI Screening Adult BMI Screening [facility] Start: 01-26-2025 Adult BMI Screening Adult BMI Screening [facility] Start: 01-26-2025 Tobacco Screening Tobacco Screening [facility] Start: 01-23-2025 Adult BMI Screening Adult BMI Screening [facility] Start: 01-23-2025 Tobacco Screening Tobacco Screening [facility] Start: 01-19-2025 End: 01-19-2025 Patient encounter procedure 01/19/2025 8:15 AM EDT Office Visit [facility] [address] [place] [address] Anna Lugo MD [address] [place] [address] [facility] Start: 01-02-2025 Adult BMI Screening Adult BMI Screening [facility] Start: 12-23-2024 Adult BMI Screening Adult BMI Screening [facility] Start: 12-23-2024 Tobacco Screening Tobacco Screening [facility] Start: 12-11-2024 Adult BMI Screening Adult BMI Screening [facility] Start: 11-27-2024 Adult BMI Screening Adult BMI Screening [facility] Start: 11-27-2024 Tobacco Screening Tobacco Screening [facility] Start: 11-18-2024 Adult BMI Screening Adult BMI Screening [facility] Start: 11-18-2024 Tobacco Screening Tobacco Screening [facility] Start: 10-09-2024 End: 07-09-2025 C-reactive protein C-reactive protein Lab Routine Stage IV lupus nephritis (WHO) (CMS-HCC) Expected: 10/09/2024 (Approximate), Expires: 07/09/2025 [facility] Comment on above: Expected: 10/09/2024 (Approximate), Expi res: 07/09/2025 Start: 10-09-2024 End: 07-09-2025 CBC W Auto Differential panel - Blood CBC auto differential Lab Routine Stage IV lupus nephritis (WHO) ([facility]) Encounter for chcf use of mycophenolate mofetil Expected: 10/09/2024 (Approximate), Expires: 07/09/2025 [facility] Comment on above: Expected: 10/09/2024 (Approximate), Expi res: 07/09/2025 Start: 10-09-2024 End: 07-09-2025 Comprehensive metabolic 2000 panel - Serum or Plasma Comprehensive metabolic panel Lab Routine Encounter for chcf use of mycophenolate mofetil Expected: 10/09/2024 (Approximate), Expires: 07/09/2025 [employer] Work Phone: Comment on above: Expected: 10/09/2024 (Approximate), Expi res: 07/09/2025 Start: 10-09-2024 End: 07-09-2025 Erythrocyte sedimentation rate Erythrocyte Sedimentation Rate (ESR) Lab Routine Stage IV lupus nephritis (WHO) ([facility]) Expected: 10/09/2024 (Approximate), Expires: 07/09/2025 [facility] Comment on above: Expected: 10/09/2024 (Approximate), Expi res: 07/09/2025 Start: 10-07-2024 Adult BMI Screening Adult BMI Screening [facility] Start: 10-07-2024 Tobacco Screening Tobacco Screening [facility] Start: 10-06-2024 End: 10-06-2024 Patient encounter procedure 10/06/2024 3:00 PM EDT Office Visit [facility], A Department of [facility] [address] [phone] Sherman Calle MD [address] [address] [facility] Department of [facility] Start: 10-02-2024 End: 10-02-2024 Patient encounter procedure 10/02/2024 3:30 PM EDT Office Visit [facility] [address] [place] [phone] Chilo Bain MD [address] [place], [place] [phone] [facility] Start: 09-06-2024 Adult BMI Screening Adult BMI Screening [facility] Start: 09-06-2024 Tobacco Screening Tobacco Screening [facility] Start: 09-05-2024 Tobacco Screening Tobacco Screening [facility] Start: 08-29-2024 Adult BMI Screening Adult BMI Screening [facility] Start: 08-29-2024 Tobacco Screening Tobacco Screening [facility] Start: 08-26-2024 End: 08-26-2024 Patient encounter procedure 08/26/2024 11:00 AM EDT Office Visit [facility] [place] [phone] Arianna Alexander PAVenancioC [address] [place] [phone] [facility] [place] Start: 08-20-2024 Adult BMI Screening Adult BMI Screening [facility] Start: 08-20-2024 Tobacco Screening Tobacco Screening [facility] Start: 08-13-2024 End: 08-13-2024 Patient encounter procedure 08/13/2024 10:30 AM EDT Office Visit [facility] [address] [place] [phone] Arianna Alexander PAVenancioC [address] [place] [phone] [facility] Start: 08-01-2024 Adult BMI Screening Adult BMI Screening [facility] Start: 08-01-2024 Tobacco Screening Tobacco Screening [facility] Start: 07-30-2024 Adult BMI Screening Adult BMI Screening [facility] Start: 07-30-2024 Tobacco Screening Tobacco Screening [facility] Start: 07-17-2024 End: 07-17-2024 Patient encounter procedure 07/17/2024 1:15 PM EDT Office Visit Yolis Rodrigues [facility] - Medical Oncology [facility] [place] [facility] [place] [address] Juan C Valle MD [address] [facility] [address] [place] [address] Yolis Rodrigues [facility] - [facility] Oncology Start: 07-14-2024 Adult BMI Screening Adult BMI Screening [facility] Start: 07-14-2024 Tobacco Screening Tobacco Screening [facility] Start: 07-11-2024 Adult BMI Screening Adult BMI Screening [facility] Start: 07-11-2024 Tobacco Screening Tobacco Screening [facility] Start: 07-09-2024 End: 07-09-2025 Protein creat ratio Protein creat ratio Lab Routine Stage IV lupus nephritis (WHO) ([facility]) Expected: 07/09/2024 (Approximate), Expires: 07/09/2025 [facility] [employer] [facility] Comment on above: Expected: 07/09/2024 (Approximate), Expi res: 07/09/2025 Start: 07-09-2024 End: 07-09-2025 Urinalysis Urinalysis Lab Routine Stage IV lupus nephritis (WHO) ([facility]) Expected: 07/09/2024 (Approximate), Expires: 07/09/2025 [facility] Comment on above: Expected: 07/09/2024 (Approximate), Expi res: 07/09/2025 Start: 07-09-2024 End: 07-09-2024 Patient encounter procedure 07/09/2024 1:15 PM EDT [facility] [address] [phone] Sherman Calle MD [address] [address] [facility] Start: 07-08-2024 End: 04-09-2025 C-reactive protein C-reactive protein Lab Routine Stage IV lupus nephritis (WHO) ([facility]) Expected: 07/08/2024 (Approximate), Expires: 04/09/2025 [employer] Comment on above: Expected: 07/08/2024 (Approximate), Expi res: 04/09/2025 Start: 07-08-2024 End: 04-09-2025 CBC W Auto Differential panel - Blood CBC auto differential Lab Routine Stage IV lupus nephritis (WHO) ([facility]) Encounter for technician terminal and repeater use of mycophenolate mofetil Expected: 07/08/2024 (Approximate), Expires: 04/09/2025 [employer] Comment on above: Expected: 07/08/2024 (Approximate), Expi res: 04/09/2025 Start: 07-08-2024 End: 04-09-2025 Comprehensive metabolic 2000 panel - Serum or Plasma Comprehensive metabolic panel Lab Routine Stage IV lupus nephritis (WHO) ([facility]) Encounter for technician terminal and repeater use of mycophenolate mofetil Expected: 07/08/2024 (Approximate), Expires: 04/09/2025 [employer] Comment on above: Expected: 07/08/2024 (Approximate), Expi res: 04/09/2025 Start: 07-08-2024 End: 04-09-2025 Erythrocyte sedimentation rate Erythrocyte Sedimentation Rate (ESR) Lab Routine Stage IV lupus nephritis (WHO) ([facility]) Expected: 07/08/2024 (Approximate), Expires: 04/09/2025 [employer] Phone: Comment on above: Expected: 07/08/2024 (Approximate), Expi res: 04/09/2025 Start: 07-08-2024 End: 04-09-2025 Protein creat ratio Protein creat ratio Lab Routine Stage IV lupus nephritis (WHO) ([facility]) Expected: 07/08/2024 (Approximate), Expires: 04/09/2025 [employer] Comment on above: Expected: 07/08/2024 (Approximate), Expi res: 04/09/2025 Start: 07-08-2024 End: 04-09-2025 Urinalysis Urinalysis Lab Routine Stage IV lupus nephritis (WHO) ([facility]) Expected: 07/08/2024 (Approximate), Expires: 04/09/2025 [facility] Comment on above: Expected: 07/08/2024 (Approximate), Expi res: 04/09/2025 Start: 07-08-2024 End: 07-08-2024 Patient encounter procedure 07/08/2024 8:45 AM EDT [facility] [address] [address] Loretta Cleary PA-C [address] [place] [address] [facility] Start: 07-04-2024 Adult BMI Screening Adult BMI Screening [facility] Start: 07-04-2024 Depression Screening [facility] Start: 07-04-2024 Tobacco Screening Tobacco Screening [facility] Start: 07-03-2024 Adult BMI Screening Adult BMI Screening [facility] Start: 07-03-2024 End: 07-03-2024 Patient encounter procedure 07/03/2024 9:00 AM EST Office Visit Yolis Maciel [facility] - Medical Oncology [address] [place] [phone] Juan C Valle MD [address] [place] [address] [address] [place] [address] Yolis Rodrigues [facility] - [facility]cology Start: 06-27-2024 Adult BMI Screening Adult BMI Screening [facility] Start: 06-27-2024 Tobacco Screening Tobacco Screening [facility] Start: 06-24-2024 Adult BMI Screening Adult BMI Screening [facility] Start: 06-24-2024 Tobacco Screening Tobacco Screening [facility] Start: 06-10-2024 End: 06-10-2024 Patient encounter procedure [facility] Comment on above: Arrived Start: 06-05-2024 Adult BMI Screening Adult BMI Screening [facility] Start: 06-05-2024 Tobacco Screening Tobacco Screening [facility] Start: 06-02-2024 End: 07-04-2024 CBC W Auto Differential panel - Blood CBC auto differential Lab Routine Bilateral pulmonary embolism (CMS-HCC) Expected: 06/02/2024, Expires: 07/04/2024 [employer] Work Phone: Comment on above: Expected: 06/02/2024, Expires: Start: 06-02-2024 End: 07-04-2024 Comprehensive metabolic 2000 panel - Serum or Plasma Comprehensive metabolic panel Lab Routine Bilateral pulmonary embolism (CMS-HCC) Expected: 06/02/2024 (Approximate), Expires: 07/04/2024 [facility] Comment on above: Expected: 06/02/2024 (Approximate), Expi res: 07/04/2024 Start: 05-28-2024 End: 05-28-2024 Patient encounter procedure [facility] Comment on above: Arrived Start: 05-15-2024 Adult BMI Screening Adult BMI Screening [facility] Start: 05-15-2024 Tobacco Screening Tobacco Screening [facility] Start: 05-13-2024 End: 05-13-2024 Patient encounter procedure 05/13/2024 1:20 PM EST Office Visit [facility] [address] [place] [phone] Mayco Albright, DO [address] [place] [address] Arrived [facility] Comment on above: Arrived Start: 05-10-2024 Adult BMI Screening [facility] Start: 05-10-2024 Tobacco Screening [facility]ening [facility] Start: 05-02-2024 End: 12-31-2024 Basic metabolic 2000 panel - Serum or Plasma Basic Metabolic Panel Lab Routine Lupus nephritis, ISN/RPS class IV ([facility]) Expected: 05/02/2024, Expires: 12/31/2024 [facility] Work Phone: Comment on above: Expected: 05/02/2024, Expires: Start: 05-02-2024 End: 12-31-2024 CBC panel - Blood by Automated count CBC without diff Lab Routine Lupus nephritis, ISN/RPS class IV ([facility]) Expected: 05/02/2024, Expires: 12/31/2024 [facility] Comment on above: Expected: 05/02/2024, Expires: Start: 05-02-2024 End: 12-31-2024 Magnesium [Mass/volume] in Serum or Plasma Magnesium Lab Routine Lupus nephritis, ISN/RPS class IV ([facility]) Expected: 05/02/2024, Expires: 12/31/2024 [facility] [employer] [facility] Comment on above: Expected: 05/02/2024, Expires: Start: 05-02-2024 End: 12-31-2024 Parathyroid Hormone, intact Parathyroid Hormone, intact Lab Routine Lupus nephritis, ISN/RPS class IV ([facility]) Expected: 05/02/2024, Expires: 12/31/2024 [facility] on above: Expected: 05/02/2024, Expires: Start: 05-02-2024 End: 12-31-2024 Phosphate [Mass/volume] in Serum or Plasma Phosphorus Lab Routine Lupus nephritis, ISN/RPS class IV ([facility]) Expected: 05/02/2024, Expires: 12/31/2024 [facility] Comment on above: Expected: 05/02/2024, Expires: Start: 05-02-2024 End: 12-31-2024 Protein creat ratio Protein creat ratio Lab Routine Lupus nephritis, ISN/RPS class IV (CMS-HCC) Expected: 05/02/2024, Expires: 12/31/2024 [facility] Comment on above: Expected: 05/02/2024, Expires: Start: 05-02-2024 End: 12-31-2024 Vitamin D 25 hydroxy Vitamin D 25 hydroxy Lab Routine Lupus nephritis, ISN/RPS class IV ([facility]) Expected: 05/02/2024, Expires: 12/31/2024 [facility] Comment on above: Expected: 05/02/2024, Expires: Start: 04-14-2024 End: 04-14-2024 Patient encounter procedure 04/14/2024 11:50 AM EST Office Visit [facility] [address] [facility] [place] [phone] Micaela Hollis, PA [address] [facility] [place] [address] [facility] Start: 04-02-2024 End: 04-02-2024 Patient encounter procedure 04/02/2024 3:40 PM EST [facility] [address] [facility] [place] [phone] Micaela Hollis PA [address] [facility] [place] [address] Arrived [facility] Comment on above: Arrived Start: 04-02-2024 Adult BMI Screening Adult BMI Screening [facility] Start: 04-02-2024 Tobacco Screening Tobacco Screening [facility] Start: 04-02-2024 End: 04-02-2024 Patient encounter procedure 04/02/2024 9:30 AM EST [facility] [address] [place] [phone] [place] [address] [place] [address] [address] [place] [address] [facility] Start: 03-18-2024 End: 03-18-2024 Telemedicine consultation with patient 03/18/2024 9:30 AM EST Telemedicine [facility] Education [facility] [address] [facility] [address] [place] [phone] Phoebe Lopez, [address] [facility] [address] [place] [address] [facility] Start: 03-14-2024 End: 03-14-2024 Patient encounter procedure 03/14/2024 10:30 AM EST [facility] [address] [place] [address] [place] [address] Arianna Alexander, PAVenancioC [address] [facility], [address] [place] [phone] [facility] Start: 01-30-2024 End: 01-30-2024 Patient encounter procedure 01/30/2024 10:00 AM EDT Office Visit [facility] - ENT [address] [place] [address], [address] [place] [phone] Jenny Cornell MD [address] [place] [address] [address] [place] [address] [facility] - [facility] Start: 01-17-2024 End: 01-16-2025 C-reactive protein C-reactive protein Lab Routine Stage IV lupus nephritis (WHO) ([facility]) Systemic lupus erythematosus, unspecified SLE type, unspecified organ involvement status ([facility]) Expected: 01/17/2024 (Approximate), Expires: 01/16/2025 [facility] Comment on above: Expected: 01/17/2024 (Approximate), Expi res: 01/16/2025 Start: 01-17-2024 End: 01-16-2025 CBC W Auto Differential panel - Blood CBC auto differential Lab Routine Stage IV lupus nephritis (WHO) ([facility]) Systemic lupus erythematosus, unspecified SLE type, unspecified organ involvement status ([facility]) Encounter for technician terminal and repeater use of mycophenolate mofetil Expected: 01/17/2024 (Approximate), Expires: 01/16/2025 [facility] Comment on above: Expected: 01/17/2024 (Approximate), Expi res: 01/16/2025 Start: 01-17-2024 End: 01-16-2025 Comprehensive metabolic 2000 panel - Serum or Plasma Comprehensive metabolic panel Lab Routine Stage IV lupus nephritis (WHO) ([facility]) Systemic lupus erythematosus, unspecified SLE type, unspecified organ involvement status ([facility]) Encounter for chcf use of mycophenolate mofetil Expected: 01/17/2024 (Approximate), Expires: 01/16/2025 [facility] Comment on above: Expected: 01/17/2024 (Approximate), Expi res: 01/16/2025 Start: 01-17-2024 End: 01-16-2025 Erythrocyte sedimentation rate Erythrocyte Sedimentation Rate (ESR) Lab Routine Stage IV lupus nephritis (WHO) ([facility]) Systemic lupus erythematosus, unspecified SLE type, unspecified organ involvement status ([facility]) Expected: 01/17/2024 (Approximate), Expires: 01/16/2025 [employer] Comment on above: Expected: 01/17/2024 (Approximate), Expi res: 01/16/2025 Start: 01-17-2024 End: 01-16-2025 Protein creat ratio Protein creat ratio Lab Routine Stage IV lupus nephritis (WHO) ([facility]) Expected: 01/17/2024 (Approximate), Expires: 01/16/2025 [facility] Comment on above: Expected: 01/17/2024 (Approximate), Expi res: 01/16/2025 Start: 01-17-2024 End: 01-16-2025 Urinalysis Urinalysis Lab Routine Stage IV lupus nephritis (WHO) ([facility]) Expected: 01/17/2024 (Approximate), Expires: 01/16/2025 [employer] [facility] Comment on above: Expected: 01/17/2024 (Approximate), Expi res: 01/16/2025 Start: 01-17-2024 End: 01-16-2025 XR Hip - bilateral 3 Views [facility] Work Phone: Comment on above: Expected: 01/17/2024, Expires: Start: 01-17-2024 End: 01-17-2024 Patient encounter procedure 01/17/2024 9:15 AM EDT Office Visit [facility] [address] [phone] Sherman Calle MD [address] [address] [facility] Start: 01-08-2024 End: 10-07-2024 C-reactive protein C-reactive protein Lab Routine Stage IV lupus nephritis (WHO) ([facility]) Systemic lupus erythematosus, unspecified SLE type, unspecified organ involvement status ([facility]) Expected: 01/08/2024 (Approximate), Expires: 10/07/2024 [employer] Comment on above: Expected: 01/08/2024 (Approximate), Expi res: 10/07/2024 Start: 01-08-2024 End: 10-07-2024 C3 complement C3 complement Lab Routine Stage IV lupus nephritis (WHO) ([facility]) Systemic lupus erythematosus, unspecified SLE type, unspecified organ involvement status ([facility]) Expected: 01/08/2024 (Approximate), Expires: 10/07/2024 [employer] [facility] Comment on above: Expected: 01/08/2024 (Approximate), Expi res: 10/07/2024 Start: 01-08-2024 End: 10-07-2024 C4 complement C4 complement Lab Routine Stage IV lupus nephritis (WHO) ([facility]) Systemic lupus erythematosus, unspecified SLE type, unspecified organ involvement status ([facility]) Expected: 01/08/2024 (Approximate), Expires: 10/07/2024 [employer] Comment on above: Expected: 01/08/2024 (Approximate), Expi res: 10/07/2024 Start: 01-08-2024 End: 10-07-2024 CBC W Auto Differential panel - Blood CBC auto differential Lab Routine Stage IV lupus nephritis (WHO) ([facility]) Systemic lupus erythematosus, unspecified SLE type, unspecified organ involvement status ([facility]) Expected: 01/08/2024 (Approximate), Expires: 10/07/2024 [employer] Comment on above: Expected: 01/08/2024 (Approximate), Expi res: 10/07/2024 Start: 01-08-2024 End: 10-07-2024 Comprehensive metabolic 2000 panel - Serum or Plasma Comprehensive metabolic panel Lab Routine Stage IV lupus nephritis (WHO) ([facility]) Systemic lupus erythematosus, unspecified SLE type, unspecified organ involvement status ([facility]) Expected: 01/08/2024 (Approximate), Expires: 10/07/2024 [employer] Comment on above: Expected: 01/08/2024 (Approximate), Expi res: 10/07/2024 Start: 01-08-2024 End: 10-07-2024 Erythrocyte sedimentation rate Erythrocyte Sedimentation Rate (ESR) Lab Routine Stage IV lupus nephritis (WHO) ([facility]) Systemic lupus erythematosus, unspecified SLE type, unspecified organ involvement status ([facility]) Expected: 01/08/2024 (Approximate), Expires: 10/07/2024 [employer] Comment on above: Expected: 01/08/2024 (Approximate), Expi res: 10/07/2024 Start: 01-08-2024 End: 10-07-2024 Protein creat ratio Protein creat ratio Lab Routine Stage IV lupus nephritis (WHO) ([facility]) Expected: 01/08/2024 (Approximate), Expires: 10/07/2024 [employer] Work Phone: Comment on above: Expected: 01/08/2024 (Approximate), Expi res: 10/07/2024 Start: 01-08-2024 End: 10-07-2024 Urinalysis Urinalysis Lab Routine Stage IV lupus nephritis (WHO) ([facility]) Expected: 01/08/2024 (Approximate), Expires: 10/07/2024 [facility] Comment on above: Expected: 01/08/2024 (Approximate), Expi res: 10/07/2024 Start: 01-03-2024 End: 01-03-2024 Patient encounter procedure [facility] Start: 12-30-2023 Influenza vaccination Influenza Vaccine [facility] Start: 12-24-2023 End: 12-24-2023 Patient encounter procedure 12/24/2023 1:00 PM EDT Office Visit [facility] [address] [place] [phone] Arianna De Luna, DPM [address] [place], [place] [phone] Arrived [facility] Comment on above: Arrived Start: 12-19-2023 Depression Screening Depression Screening [facility] yste Start: 11-28-2023 End: 11-27-2024 MR Brain and Internal auditory canal WO and W contrast IV MR brain IAC with and without contrast Imaging Routine Tinnitus of left ear Expected: 11/28/2023, Expires: 11/27/2024 [facility] Work Phone: Comment on above: Expected: 11/28/2023, Expires: Start: 11-28-2023 End: 11-28-2023 Clinical Support [facility] - ENT Start: 10-23-2023 End: 10-23-2023 Telemedicine consultation with patient 10/23/2023 9:30 AM EDT Telemedicine [facility] Outpatient Diabetes and Nutrition Education Program [address] [place] [address] Phoebe Lopez, PARRIS [address] [place] [address] [facility] Outpatient Diabetes and Nutrition Education Program Start: 10-18-2023 End: 10-18-2023 Patient encounter procedure [facility] Start: 10-08-2023 End: 10-08-2023 Patient encounter procedure 10/08/2023 11:45 AM EDT Office Visit [facility] [address] [phone] Sherman Calle MD [address] [address] [facility] Start: 09-07-2023 End: 09-07-2023 Patient encounter procedure 09/07/2023 10:00 AM EDT Office Visit [facility] [address] [place] [address] [address] [facility] [place] [phone] Arianna Alexander, PA-C [address] [facility] [place] [phone] [facility] Start: 09-06-2023 End: 09-06-2023 Telemedicine consultation with patient 09/06/2023 9:15 AM EDT Telemedicine [facility] Outpatient Diabetes and Nutrition Education Program [address] [facility] [address] [place] [phone] Phoebe Lopez, LD [address] [facility] [address] [place] [phone] [facility] Outpatient Diabetes and Nutrition Education Program Start: 08-30-2023 End: 08-29-2024 C-reactive protein C-reactive protein Lab Routine Stage IV lupus nephritis (WHO) ([facility]) Expected: 08/30/2023 (Approximate), Expires: 08/29/2024 [facility] Comment on above: Expected: 08/30/2023 (Approximate), Expi res: 08/29/2024 Start: 08-30-2023 End: 08-29-2024 CBC W Auto Differential panel - Blood CBC auto differential Lab Routine Stage IV lupus nephritis (WHO) ([facility]) Expected: 08/30/2023 (Approximate), Expires: 08/29/2024 [facility] Comment on above: Expected: 08/30/2023 (Approximate), Expi res: 08/29/2024 Start: 08-30-2023 End: 08-29-2024 Comprehensive metabolic 2000 panel - Serum or Plasma Comprehensive metabolic panel Lab Routine Stage IV lupus nephritis (WHO) ([facility]) Expected: 08/30/2023 (Approximate), Expires: 08/29/2024 [facility] Comment on above: Expected: 08/30/2023 (Approximate), Expi res: 08/29/2024 Start: 08-30-2023 End: 07-30-2024 Creatinine includes GFR, serum Creatinine includes GFR, serum Lab Routine Stage IV lupus nephritis (WHO) ([facility]) Expected: 08/30/2023 (Approximate), Expires: 07/30/2024 [facility] [employer] [facility] Comment on above: Expected: 08/30/2023 (Approximate), Expi res: 07/30/2024 Start: 08-30-2023 End: 08-29-2024 Erythrocyte sedimentation rate Erythrocyte Sedimentation Rate (ESR) Lab Routine Stage IV lupus nephritis (WHO) ([facility]) Expected: 08/30/2023 (Approximate), Expires: 08/29/2024 [facility] Comment on above: Expected: 08/30/2023 (Approximate), Expi res: 08/29/2024 Start: 08-30-2023 End: 08-29-2024 [facility] Work [facility]: Comment on above: Expected: 08/30/2023 (Approximate), Expi res: 08/29/2024 Expected: 08/30/2023 (Approximate), Expires: 07/30/2024 Start: 08-30-2023 End: 08-29-2024 [facility] Comment on above: Expected: 08/30/2023 (Approximate), Expi res: 08/29/2024 Expected: 08/30/2023 (Approximate), Expires: 07/30/2024 Start: 08-30-2023 End: 08-30-2023 Patient encounter procedure 08/30/2023 10:45 AM EDT Office Visit [facility] [address] [place] [phone] Sherman Calle MD [address] [address] [facility] Start: 08-14-2023 End: 07-30-2024 Creatinine includes GFR, serum Creatinine includes GFR, serum Lab Routine Stage IV lupus nephritis (WHO) ([facility]) Expected: 08/14/2023 (Approximate), Expires: 07/30/2024 [facility] Work Phone: Comment on above: Expected: 08/14/2023 (Approximate), Expi res: 07/30/2024 Start: 08-14-2023 End: 08-14-2023 Patient encounter procedure 08/14/2023 10:30 AM EDT Appointment [facility] - Pulmonary Function [address] [place] [phone] Mague Portillo DO [address] [address] [facility] - Pulmonary Function Start: 08-06-2023 End: 08-06-2023 Patient encounter procedure 08/06/2023 8:30 AM EDT Office Visit [facility] [address] [place] [address] Sherman Calle MD [address] [address] [facility] Start: 08-02-2023 End: 08-02-2023 Patient encounter procedure 08/02/2023 10:00 AM EDT Office Visit [facility] [address] [place] [phone] Mague Portillo DO [address] [facility] [address] [place] [address] [facility] Start: 07-31-2023 End: 07-31-2023 Patient encounter procedure 07/31/2023 1:15 PM EDT Office Visit [facility] [address] [phone] Sherman Calle MD [address] [address] [facility] Start: 07-23-2023 End: 07-23-2023 Patient encounter procedure 07/23/2023 9:45 AM EDT Appointment [facility] - MRI Imaging [address] [place] [address] [facility] - MRI Imaging Start: 07-12-2023 End: 07-12-2023 Patient encounter procedure 07/12/2023 9:30 AM EDT Office Visit [facility] [address] [place] [phone] Sade Rosas MD [address] [place] [phone] [facility] Start: 07-05-2023 End: 07-04-2024 MR Brain WO contrast MR brain without contrast Imaging Routine Daily headache Migraine without aura and without status migrainosus, not intractable Vision changes Expected: 07/05/2023, Expires: 07/04/2024 [facility] Work Phone: Comment on above: Expected: 07/05/2023, Expires: Start: 07-05-2023 End: 07-05-2023 Patient encounter procedure 07/05/2023 10:00 AM EST Office Visit [facility] [address] [place] [phone] Arianna Alexander PA-C [address] [place] [address] [facility] Start: 07-05-2023 End: 07-05-2023 Telemedicine consultation with patient 07/05/2023 9:00 AM EST Telemedicine [facility] - Medical Oncology [facility] [place] [address] Juan C Valle MD [address] [facility] [address] [place] [address] Yolis Maciel [facility] - Medical Oncology Start: 07-04-2023 End: 07-03-2024 C-reactive protein C-reactive protein Lab Routine Stage IV lupus nephritis (WHO) ([facility]) Systemic lupus erythematosus, unspecified SLE type, unspecified organ involvement status ([facility]) Expected: 07/04/2023 (Approximate), Expires: 07/03/2024 [employer] Comment on above: Expected: 07/04/2023 (Approximate), Expi res: 07/03/2024 Start: 07-04-2023 End: 07-03-2024 CBC W Auto Differential panel - Blood CBC auto differential Lab Routine Stage IV lupus nephritis (WHO) ([facility]) Systemic lupus erythematosus, unspecified SLE type, unspecified organ involvement status ([facility]) Encounter for chcf use of mycophenolate mofetil Expected: 07/04/2023 (Approximate), Expires: 07/03/2024 [employer] Comment on above: Expected: 07/04/2023 (Approximate), Expi res: 07/03/2024 Start: 07-04-2023 End: 07-03-2024 Comprehensive metabolic 2000 panel - Serum or Plasma Comprehensive metabolic panel Lab Routine Stage IV lupus nephritis (WHO) ([facility]) Systemic lupus erythematosus, unspecified SLE type, unspecified organ involvement status ([facility]) Expected: 07/04/2023 (Approximate), Expires: 07/03/2024 [employer] Comment on above: Expected: 07/04/2023 (Approximate), Expi res: 07/03/2024 Start: 07-04-2023 End: 07-03-2024 Erythrocyte sedimentation rate Erythrocyte Sedimentation Rate (ESR) Lab Routine Stage IV lupus nephritis (WHO) ([facility]) Systemic lupus erythematosus, unspecified SLE type, unspecified organ involvement status ([facility]) Expected: 07/04/2023 (Approximate), Expires: 07/03/2024 [employer] Work Phone: Comment on above: Expected: 07/04/2023 (Approximate), Expi res: 07/03/2024 Start: 07-04-2023 End: 07-03-2024 Protein creat ratio Protein creat ratio Lab Routine Stage IV lupus nephritis (WHO) ([facility]) Expected: 07/04/2023 (Approximate), Expires: 07/03/2024 [employer] Comment on above: Expected: 07/04/2023 (Approximate), Expi res: 07/03/2024 Start: 07-04-2023 End: 07-03-2024 Unlisted Lab Test Unlisted Lab Test Lab Routine Stage IV lupus nephritis (WHO) ([facility]) Systemic lupus erythematosus, unspecified SLE type, unspecified organ involvement status ([facility]) Expected: 07/04/2023, Expires: 07/03/2024 [employer] Comment on above: Expected: 07/04/2023, Expires: Start: 07-04-2023 End: 07-03-2024 Urinalysis Urinalysis Lab Routine Stage IV lupus nephritis (WHO) ([facility]) Expected: 07/04/2023 (Approximate), Expires: 07/03/2024 [employer] Comment on above: Expected: 07/04/2023 (Approximate), Expi res: 07/03/2024 Start: 07-04-2023 End: 07-04-2023 [facility] Start: 07-03-2023 End: 07-03-2023 Patient encounter procedure 07/03/2023 8:00 AM EST Office Visit [facility] [address] [place] [phone] Arianna Alexander PA-C [address], [address] [place] [phone] [facility] Start: 06-28-2023 End: 06-28-2023 ambulatory 06/28/2023 10:00 AM EST Lab Yolis L Ravi [facility] - Medical Oncology [address] [place] [phone] Yolis L Ravi [facility] - Medical Oncology Start: 06-27-2023 End: 06-27-2023 Patient encounter procedure 06/27/2023 9:00 AM EST Office Visit [facility] [address] [place] [phone] Shereen Harmon MD [address] [place] [phone] [facility] Start: 06-21-2023 End: 06-21-2023 Patient encounter procedure 06/21/2023 9:30 AM EST Office Visit [facility] [address] [place] [phone] Chilo Bain MD [address] [facility] [address] [place] [phone] [facility] Start: 06-20-2023 End: 06-13-2024 Basic metabolic 2000 panel - Serum or Plasma Basic Metabolic Panel Lab Routine Stage IV lupus nephritis (WHO) ([facility]) Stage 3 chronic kidney disease, unspecified whether stage 3a or 3b CKD ([facility]) Expected: 06/20/2023 (Approximate), Expires: 06/13/2024 [facility] Work Phone: Comment on above: Expected: 06/20/2023 (Approximate), Expi res: 06/13/2024 Start: 06-20-2023 End: 06-13-2024 CBC panel - Blood by Automated count CBC without diff Lab Routine Stage IV lupus nephritis (WHO) ([facility]) Stage 3 chronic kidney disease, unspecified whether stage 3a or 3b CKD ([facility]) Expected: 06/20/2023 (Approximate), Expires: 06/13/2024 [employer] Comment on above: Expected: 06/20/2023 (Approximate), Expi res: 06/13/2024 Start: 06-20-2023 End: 06-13-2024 Magnesium [Mass/volume] in Serum or Plasma Magnesium Lab Routine Stage IV lupus nephritis (WHO) ([facility]) Stage 3 chronic kidney disease, unspecified whether stage 3a or 3b CKD ([facility]) Expected: 06/20/2023 (Approximate), Expires: 06/13/2024 [employer] Comment on above: Expected: 06/20/2023 (Approximate), Expi res: 06/13/2024 Start: 06-20-2023 End: 06-13-2024 Parathyroid Hormone, intact Parathyroid Hormone, intact Lab Routine Stage IV lupus nephritis (WHO) ([facility]) Stage 3 chronic kidney disease, unspecified whether stage 3a or 3b CKD ([facility]) Expected: 06/20/2023 (Approximate), Expires: 06/13/2024 [employer] Comment on above: Expected: 06/20/2023 (Approximate), Expi res: 06/13/2024 Start: 06-20-2023 End: 06-13-2024 Phosphate [Mass/volume] in Serum or Plasma Phosphorus Lab Routine Stage IV lupus nephritis (WHO) ([facility]) Stage 3 chronic kidney disease, unspecified whether stage 3a or 3b CKD ([facility]) Expected: 06/20/2023 (Approximate), Expires: 06/13/2024 [employer] Comment on above: Expected: 06/20/2023 (Approximate), Expi res: 06/13/2024 Start: 06-20-2023 End: 06-13-2024 Protein creat ratio Protein creat ratio Lab Routine Stage IV lupus nephritis (WHO) ([facility]) Stage 3 chronic kidney disease, unspecified whether stage 3a or 3b CKD ([facility]) Expected: 06/20/2023 (Approximate), Expires: 06/13/2024 [facility] [employer] [facility] Comment on above: Expected: 06/20/2023 (Approximate), Expi res: 06/13/2024 Start: 06-20-2023 End: 06-13-2024 Vitamin D 25 hydroxy Vitamin D 25 hydroxy Lab Routine Stage IV lupus nephritis (WHO) ([facility]) Stage 3 chronic kidney disease, unspecified whether stage 3a or 3b CKD ([facility]) Expected: 06/20/2023 (Approximate), Expires: 06/13/2024 [facility] [employer] [facility] Comment on above: Expected: 06/20/2023 (Approximate), Expi res: 06/13/2024 Start: 06-19-2023 End: 06-19-2023 Patient encounter procedure 06/19/2023 11:00 AM EST Office Visit [facility] [address] [place] [phone] Arianna Alexander PA-C [address] [place] [address] [facility] Start: 06-14-2023 End: 06-14-2023 Patient encounter procedure [facility] -CardioVascular Start: 06-14-2023 End: 06-14-2023 Patient encounter procedure [facility] -Nuclear MedIcine Start: 06-08-2023 End: 06-08-2023 Patient encounter procedure 06/08/2023 1:00 PM EST Appointment [facility] - Neurophysiology [address] [place] [address] [facility] - Neurophysiology Start: 06-06-2023 End: 06-06-2024 SPECT Heart gated and ejection fraction at rest and W stress and W radionuclide IV Nuc stress exercise Cardiac Services Routine Angina pectoris, unstable ([facility]) Expected: 06/06/2023, Expires: 06/06/2024 [facility] Work Phone: Comment on above: Expected: 06/06/2023, Expires: Start: 05-21-2023 End: 05-21-2023 Patient encounter procedure 05/21/2023 10:30 AM EST Office Visit [facility] [address] [place] [phone] Gamal Franklin MD [address] [place] [address] [facility] Start: 05-03-2023 End: 05-03-2023 Patient encounter procedure 05/03/2023 8:30 AM EST Office Visit [facility] [address] [address] Sherman Calle MD [address] [address] [facility] Start: 11-10-2009 Adult BMI Follow Up Plan Adult BMI Follow Up Plan [facility] Start: 11-10-2009 Diabetic foot examination Diabetic Foot Exam [facility] Start: 1991 Glaucoma screening Diabetic Ophthalmology Exam [facility] End: 07-11-2024 Albumin [Mass/volume] in Serum or Plasma Albumin Lab Routine Lupus nephritis ([facility]) 1 Occurrences starting 07/12/2023 until 07/11/2024 [facility] Work Phone: Comment on above: 1 Occurrences starting 07/12/2023 until 07/11/2024 Aquaporin 4 water channel IgG Ab [Presence] in Cerebral spinal fluid NMO/AQP3 FACS,CSF Lab Routine 02/05/2024 9:14 AM EDT [facility] Aquaporin 4 water channel IgG Ab [Presence] in Serum or Plasma NMO/AQP4 FACS, Serum Lab Routine 02/04/2024 7:44 AM EDT [facility] Bacteria identified in Cerebral spinal fluid by Culture Spinal Fluid culture includes gram stain, CSF Microbiology Routine 02/05/2024 9:45 AM EDT [employer] End: 07-11-2024 Basic metabolic 2000 panel - Serum or Plasma Basic Metabolic Panel Lab Routine Lupus [facility]ritis [facility]) 1 Occurrences starting 07/12/2023 until 07/11/2024 [employer] Comment on above: 1 Occurrences starting 07/12/2023 until 07/11/2024 End: 07-10-2025 Basic metabolic 2000 panel - Serum or Plasma Basic Metabolic Panel Lab Routine Lupus nephritis, ISN/RPS class IV ([facility]) 1 Occurrences starting 07/10/2024 until 07/10/2025 [facility] Work Phone: Comment on above: 1 Occurrences starting 07/10/2024 until 07/10/2025 End: 07-03-2024 C3 complement C3 complement Lab Routine Stage IV lupus nephritis (WHO) ([facility]) Systemic lupus erythematosus, unspecified SLE type, unspecified organ involvement status ([facility]) 1 Occurrences starting 07/04/2023 until 07/03/2024 [employer] Comment on above: 1 Occurrences starting 07/04/2023 until 07/03/2024 End: 07-03-2024 C4 complement C4 complement Lab Routine Systemic lupus erythematosus, unspecified SLE type, unspecified organ involvement status ([facility]) 1 Occurrences starting 07/04/2023 until 07/03/2024 [employer] Comment on above: 1 Occurrences starting 07/04/2023 until 07/03/2024 End: 07-11-2024 CBC panel - Blood by Automated count CBC without diff Lab Routine Lupus nephritis ([facility]) 1 Occurrences starting 07/12/2023 until 07/11/2024 [employer] Comment on above: 1 Occurrences starting 07/12/2023 until 07/11/2024 End: 07-10-2025 CBC panel - Blood by Automated count CBC without diff Lab Routine Lupus nephritis, ISN/RPS class IV ([facility]) 1 Occurrences starting 07/10/2024 until 07/10/2025 [employer] Comment on above: 1 Occurrences starting 07/10/2024 until 07/10/2025 End: 02-04-2024 CSF IgG Index Profile CSF IgG Index Profile Lab Routine Once for 1 Occurrences starting 02/04/2024 until 02/04/2024 [employer] Comment on above: Once for 1 Occurrences starting 02/04/20 until 02/04/2024 Cytology Cervical or vaginal smear or scraping study Pap Smear Pathology and Cytology Routine Well woman exam with routine gynecological exam Ordered: 05/28/2024 [facility] [employer] Work Phone: Comment on above: Ordered: 05/28/2024 End: 08-01-2024 Eosinophil count Eosinophil count Lab Routine Environmental allergies 1 Occurrences starting 08/02/2023 until 08/01/2024 [employer] Comment on above: 1 Occurrences starting 08/02/2023 until 08/01/2024 Human papilloma viru s DNA [Presence] in Unspecified specimen by Probe with amplification HPV DNA probe, amplified Microbiology Routine Well woman exam with routine gynecological exam Ordered: 05/28/2024 [employer] Comment on above: Ordered: 05/28/2024 IgG synthesis rate [Mass/time] in Serum and CSF by calculation CSF IgG Index Profile Lab Routine 02/04/2024 7:44 AM EDT [employer] End: 07-11-2024 Magnesium [Mass/volume] in Serum or Plasma Magnesium Lab Routine Lupus nephritis ([facility]) 1 Occurrences starting 07/12/2023 until 07/11/2024 [employer] Comment on above: 1 Occurrences starting 07/12/2023 until 07/11/2024 End: 07-10-2025 Magnesium [Mass/volume] in Serum or Plasma Magnesium Lab Routine Lupus nephritis, ISN/RPS class IV ([facility]) 1 Occurrences starting 07/10/2024 until 07/10/2025 [employer] Comment on above: 1 Occurrences starting 07/10/2024 until 07/10/2025 End: 02-04-2024 Myelin Oligodendrocyte Glycoprotein (MOG-IgG1) [facility] Comment on above: Once for 1 Occurrences starting 02/04/20 until 02/04/2024 End: 02-04-2024 NMO/AQP3 FACS,CSF NMO/AQP3 FACS,CSF Lab Routine Once for 1 Occurrences starting 02/04/2024 until 02/04/2024 [employer] Comment on above: Once for 1 Occurrences starting 02/04/20 until 02/04/2024 End: 02-04-2024 NMO/AQP4 FACS, Serum NMO/AQP4 FACS, Serum Lab Routine Once for 1 Occurrences starting 02/04/2024 until 02/04/2024 [facility] Comment on above: Once for 1 Occurrences starting 02/04/20 until 02/04/2024 End: 02-04-2024 Oligoclonal banding CSF and serum [employer] Work Phone: Comment on above: Once for 1 Occurrences starting 02/04/20 until 02/04/2024 End: 07-10-2025 Parathyroid Hormone, intact Parathyroid Hormone, intact Lab Routine Lupus nephritis, ISN/RPS class IV ([facility]) 1 Occurrences starting 07/10/2024 until 07/10/2025 [facility] Comment on above: 1 Occurrences starting 07/10/2024 until 07/10/2025 End: 07-11-2024 Phosphate [Mass/volume] in Serum or Plasma Phosphorus Lab Routine Lupus nephritis ([facility]) 1 Occurrences starting 07/12/2023 until 07/11/2024 [facility] Comment on above: 1 Occurrences starting 07/12/2023 until 07/11/2024 End: 07-10-2025 Phosphate [Mass/volume] in Serum or Plasma Phosphorus Lab Routine Lupus nephritis, ISN/RPS class IV ([facility]) 1 Occurrences starting 07/10/2024 until 07/10/2025 [facility] Comment on above: 1 Occurrences starting 07/10/2024 until 07/10/2025 End: 07-11-2024 Protein creat ratio Protein creat ratio Lab Routine Lupus nephritis ([facility]) 1 Occurrences starting 07/12/2023 until 07/11/2024 [facility] Comment on above: 1 Occurrences starting 07/12/2023 until 07/11/2024 End: 07-10-2025 Protein creat ratio Protein creat ratio Lab Routine Lupus nephritis, ISN/RPS class IV ([facility]) 1 Occurrences starting 07/10/2024 until 07/10/2025 [facility] Comment on above: 1 Occurrences starting 07/10/2024 until 07/10/2025 End: 08-01-2024 Respiratory allergy panel Respiratory allergy panel Lab Routine Environmental allergies 1 Occurrences starting 08/02/2023 until 08/01/2024 [employer] Work Phone: Comment on above: 1 Occurrences starting 08/02/2023 until 08/01/2024 End: 07-11-2024 Urinalysis Urinalysis Lab Routine Lupus nephritis ([facility]) 1 Occurrences starting 07/12/2023 until 07/11/2024 [employer] Comment on above: 1 Occurrences starting 07/12/2023 until 07/11/2024 End: 12-31-2024 Urinalysis Urinalysis Lab Routine Lupus nephritis, ISN/RPS class IV ([facility]) 1 Occurrences starting 01/03/2024 until 12/31/2024 [employer] Comment on above: 1 Occurrences starting 01/03/2024 until 12/31/2024 End: 07-10-2025 Urinalysis Urinalysis Lab Routine Lupus nephritis, ISN/RPS class IV ([facility] 1 Occurrences starting 07/10/2024 until 07/10/2025 [employer] Comment on above: 1 Occurrences starting 07/10/2024 until 07/10/2025 End: 07-10-2025 Vitamin D 25 hydroxy Vitamin D 25 hydroxy Lab Routine Lupus nephritis, ISN/RPS class IV ([facility] 1 Occurrences starting 07/10/2024 until 07/10/2025 [employer] Comment on above: 1 Occurrences starting 07/10/2024 until 07/10/2025 Immunizations Immunization Date Immunization Notes Care Provider [facility] 02-19-2024 influenza virus vaccine, unspecified formulation CYNTHIA GALLARDO [facility] 02-08-2023 Influenza, injectabl e, Madin Tasha Canine Kidney, preservative free, quadrivalent Arianna De Luna DPM Work Phone: [facility] 02-08-2023 Pneumococcal Conjuga te 20-valent Arianna De Luna DPM Work Phone: [facility] 02-08-2023 influenza virus vaccine, unspecified formulation Sherman Calle MD Work Phone: [facility] 03-23-2020 influenza virus vaccine, unspecified formulation Wu SALAM [facility] 03-23-2020 influenza, injectabl e, quadrivalent, preservative free Arianna Rusher DPM Work Phone: [facility] 03-23-2020 tetanus toxoid, redu martha diphtheria toxoid, and acellular pertussis vaccine, adsorbed Wu SALAM [facility] 04-02-2019 tetanus toxoid, redu martha diphtheria toxoid, and acellular pertussis vaccine, adsorbed Wu SALAM [facility] 02-26-2019 influenza virus vaccine, unspecified formulation Wu SALAM [facility] 02-26-2019 influenza, injectabl e, quadrivalent, preservative free Arianna Rusher DPM Work Phone: [facility] 03-03-2010 influenza virus vaccine, unspecified formulation Wu SALAM [facility] 03-03-2010 influenza, seasonal, injectable Arianna Rusher DPM Work Phone: [facility] 07-27-2009 HPV, unspecified formulation Wu SALAM [facility] 07-27-2009 human papilloma viru s vaccine, quadrivalent Arianna Rusher DPM Work Phone: [facility] 03-29-2009 HPV, unspecified formulation Wu SALAM [facility] 03-29-2009 human papilloma viru s vaccine, quadrivalent Arianna Rusher DPM Work Phone: [facility] 02-24-2009 influenza virus vaccine, live, attenuated, for intranasal use Arianna Rusher DPM Work Phone: [facility] 01-20-2009 HPV, unspecified formulation Wu SALAM [facility] 01-20-2009 human papilloma viru s vaccine, quadrivalent Arianna Rusher DPM Work Phone: [facility] 01-20-2009 meningococcal ACWY vaccine, unspecified formulation Wu SALAM [facility] 01-20-2009 meningococcal polysaccharide (groups A, C, Y and W-135) diphtheria toxoid conjugate vaccine (MCV4P) Arianna Rusher DPM Work Phone: [facility] 01-20-2009 tetanus toxoid, redu martha diphtheria toxoid, and acellular pertussis vaccine, adsorbed Wu SALAM [facility] 05-18-2008 influenza virus vaccine, unspecified formulation Wu SALAM [facility] 05-18-2008 influenza, seasonal, injectable, preservative free Arianna Rusher DPM Work Phone: [facility] 05-26-2004 measles, mumps and rubella virus vaccine Wu SALAM [facility] 04-03-2003 influenza virus vaccine, unspecified formulation Wu SALAM [facility] 04-03-2003 influenza, seasonal, injectable Arianna Rusher DPM Work Phone: [facility] 08-28-1996 diphtheria, tetanus toxoids and acellular pertussis vaccine, unspecified formulation Arianna Rusher DPM Work Phone: [facility] 08-28-1996 DTaP, unspecified formulation Wu SALAM [facility] 08-28-1996 poliovirus vaccine, unspecified formulation Arianna Rusher DPM Work Phone: [facility] 05-17-1995 hepatitis B vaccine, pediatric or pediatric/adolescent dosage Wu SALAM [facility] 12-19-1994 hepatitis B vaccine, pediatric or pediatric/adolescent dosage Wu SALAM [facility] 11-10-1994 hepatitis B vaccine, pediatric or pediatric/adolescent dosage Wu SALAM [facility] 07-28-1993 diphtheria, tetanus toxoids and acellular pertussis vaccine, unspecified formulation Arianna Rusher DPM Work Phone: [facility] 07-28-1993 DTaP, unspecified formulation Wu SALAM [facility] 07-28-1993 poliovirus vaccine, unspecified formulation Arianna Rusher DPM Work Phone: [facility] 02-10-1993 haemophilus influenz ae type b vaccine, conjugate unspecified formulation Arianna Rusher DPM Work Phone: [facility] 02-10-1993 Hib, unspecified formulation Wu SALAM [facility] 02-10-1993 measles, mumps and rubella virus vaccine Wu SALAM [facility] 05-07-1992 diphtheria, tetanus toxoids and acellular pertussis vaccine, unspecified formulation Arianna Rusher DPM Work Phone: [facility] 05-07-1992 DTaP, unspecified formulation Wu SALAM [facility] 05-07-1992 haemophilus influenz ae type b vaccine, conjugate unspecified formulation Arianna Rusher DPM Work Phone: [facility] 05-07-1992 Hib, unspecified formulation Wu SALAM [facility] 03-05-1992 diphtheria, tetanus toxoids and acellular pertussis vaccine, unspecified formulation Arianna Rusher DPM Work Phone: [facility] 03-05-1992 DTaP, unspecified formulation Wu SALAM [facility] 03-05-1992 haemophilus influenz ae type b vaccine, conjugate unspecified formulation Arianna Rusher DPM Work Phone: [facility] 03-05-1992 Hib, unspecified formulation Wu SALAM [facility] 03-05-1992 poliovirus vaccine, unspecified formulation Arianna Rusher DPM Work Phone: [facility] 01-07-1992 diphtheria, tetanus toxoids and acellular pertussis vaccine, unspecified formulation Arianna Rusher DPM Work Phone: [facility] 01-07-1992 DTaP, unspecified formulation Wu SALAM [facility] 01-07-1992 haemophilus influenz ae type b vaccine, conjugate unspecified formulation Arianna Rusher DPM Work Phone: [facility] 01-07-1992 Hib, unspecified formulation Katrin Resendiz [facility] 01-07-1992 poliovirus vaccine, unspecified formulation Arianna Rusher DPM Work Phone: [facility] NEGATED: Highlighted row has not occurred!06-26-2022 influenza virus vaccine, unspecified formulation Miki Mauricio [facility] NEGATED: Highlighted row has not occurred!06-26-2022 SARS-CoV-2 mRNA (toalysanameran 5y-11y) vaccine Miki Mauricio [facility] NEGATED: Highlighted row has not occurred!02-16-2022 influenza virus vaccine, unspecified formulation Wu SALAM [facility] Payers Date Payer Category Payer Self-pay 2022 Medicaid HMO [employer] [id number] 2014 Medicaid [id number] 2014 Private Health [facility] [id number] 2014 Unknown [id number] 1991 Unknown [id number] 2.16.840.1.310748.3.579.2. 593 1991 Unknown [id number] 2.16.840.1.686597.3.579.2. 593 1991 Unknown [id number] 2.16.840.1.458258.3.579.2. 356 1991 Unknown [id number] 2.16.840.1.258251.3.579.2. 1286 1991 Unknown [id number] 2.16.840.1.129043.3.579.2. 1285 1991 Unknown [id number] 2.16.840.1.246219.3.579.2. 1285 1991 Unknown [id number] 2.16.840.1.014094.3.579.2. 1285 1991 Unknown [id number] 2.16.840.1.043635.3.579.2. 1285 1991 Unknown [id number] 2.16.840.1.568021.3.579.2. 1285 1991 Unknown [id number] 2..840.1.899552.3.579.2. 1285 1991 Unknown [id number] 2..840.1.280924.3.579.2. 1285 1991 Unknown [id number] 2.0.1.036654.3.579.2. 1243 1991 Unknown [id number] 2.840.1.654151.3.579.2. 1285 1991 Unknown [id number] 2.840.1.641216.3.579.2. 1285 1991 Unknown [id number] 2.840.1.693903.3.579.2. 1285 1991 Unknown [id number] 2.840.1.616516.3.579.2. 1285 1991 Unknown [id number] 2..840.1.199477.3.579.2. 1285 1991 Unknown [id number] 2..840.1.987627.3.579.2. 1285 1991 Unknown [id number] 2.16.840.1.384503.3.579.2. 1285 1991 Unknown [id number] 2.840.1.279951.3.579.2. 1285 1991 Unknown [id number] 2.16.840.1.840462.3.579.2. 1285 1991 Unknown [id number] 2.16.840.1.602712.3.579.2. 1285 1991 Unknown [id number] 2.16.840.1.835258.3.579.2. 1285 1991 Unknown [id number] 2.16.840.1.123340.3.579.2. 1285 1991 Unknown [id number] 2.16.840.1.808215.3.579.2. 1285 1991 Unknown [id number] 2.16.840.1.947193.3.579.2. 1285 1991 Unknown [id number] 2.16.840.1.217602.3.579.2. 1285 1991 Unknown [id number] 2.16.840.1.436863.3.579.2. 1285 1991 Unknown [id number] 2.16.840.1.090053.3.579.2. 1285 1991 Unknown [id number] 2.16.840.1.011002.3.579.2. 1285 1991 Unknown [id number] 2.16.840.1.701513.3.579.2. 1285 1991 Unknown [id number] 2.16.840.1.257010.3.579.2. 1285 1991 Unknown [id number] 2.16.840.1.451538.3.579.2. 1258 1991 Unknown [id number] 2.16.840.1.975872.3.579.2. 1258 1991 Unknown [id number] 2.16.840.1.542137.3.579.2. 1258 1991 Unknown [id number] 2.16.840.1.293846.3.579.2. 1258 1991 Unknown [id number] 2.16.840.1.583020.3.579.2. 1258 1991 Unknown [id number] 2.16.840.1.279965.3.579.2. 1258 1991 Unknown [id number] 2.16.840.1.143242.3.579.2. 1258 1991 Unknown [id number] 2.16.840.1.303183.3.579.2. 1258 1991 Unknown [id number] 2.16.840.1.973877.3.579.2. 1258 1991 Unknown [id number] 2.16.840.1.004339.3.579.2. 1258 1991 Unknown [id number] 2.16.840.1.901657.3.579.2. 1258 1991 Unknown [id number] 2.16.840.1.707820.3.579.2. 1258 1991 Unknown [id number] 2.16.840.1.876256.3.579.2. 1258 1991 Unknown [id number] 2.16.840.1.309548.3.579.2. 1258 1991 Unknown [id number] 2.16.840.1.817669.3.579.2. 1991 Unknown [id number] 2.16.840.1.870447.3.579.2. 1991 Unknown [id number] 2.16.840.1.855713.3.579.2. 1991 Unknown [id number] 2.16.840.1.253143.3.579.2. 1991 Unknown [id number] 2.16.840.1.416694.3.579.2. 1285 1991 Unknown [id number] 2.16.840.1.827866.3.579.2. 1285 1991 Unknown [id number] 2.16.840.1.332604.3.579.2. 1285 1991 Unknown [id number] 2.16.840.1.723794.3.579.2. 1285 1991 Unknown [id number] 2.16.840.1.598186.3.579.2. 1285 1991 Unknown [id number] 2.16.840.1.318763.3.579.2. 1285 1991 Unknown [id number] 2.16.840.1.064256.3.579.2. 1285 1991 Unknown [id number] 2.16.840.1.432056.3.579.2. 1285 1991 Unknown [id number] 2.16840.1.547523.3.579.2. 1285 1991 Unknown [id number] 2.16840.1.408507.3.579.2. 1285 1991 Unknown [id number] 2.16840.1.790909.3.579.2. 1285 1991 Unknown [id number] 2.16.840.1.955121.3.579.2. 1285 1991 Unknown [id number] 2.16840.1.555490.3.579.2. 1285 1991 Unknown [id number] 2.16.840.1.136334.3.579.2. 1285 1991 Unknown [id number] 2.16.840.1.108384.3.579.2. 1285 1991 Unknown [id number] 2.16.840.1.929604.3.579.2. 1285 1991 Unknown [id number] 2.16.840.1.366315.3.579.2. 1285 1991 Unknown [id number] 2.16840.1.257465.3.579.2. 1285 1991 Unknown [id number] 2.16.840.1.807854.3.579.2. 1285 1991 Unknown [id number] 2.16.840.1.939900.3.579.2. 1285 1991 Unknown [id number] 2.16.840.1.451019.3.579.2. 1285 1991 Unknown [id number] 2.16.840.1.247457.3.579.2. 1285 1991 Unknown [id number] 2.16.840.1.004703.3.579.2. 1285 1991 Unknown [id number] 2.16.840.1.012316.3.579.2. 1285 1991 Unknown [id number] 2.16.840.1.409595.3.579.2. 1285 1991 Unknown [id number] 2.16.840.1.023699.3.579.2. 1285 1991 Unknown [id number] 2.16.840.1.619115.3.579.2. 1285 1991 Unknown [id number] 2.16.840.1.128323.3.579.2. 1285 1991 Unknown [id number] 2.16.840.1.482135.3.579.2. 1285 1991 Unknown [id number] 2.16.840.1.383425.3.579.2. 1285 1991 Unknown [id number] 2.16.840.1.931722.3.579.2. 1285 1991 Unknown [id number] 2.16.840.1.004080.3.579.2. 1285 1991 Unknown [id number] 2.16.840.1.703393.3.579.2. 1285 1959 Unknown [id number] Social History Date Type Detail Facility Start: 02-16-2022 End: 08-02-2023 Tobacco smoking status Ex-smoker (finding) [facility] Start: 12-18-2022 End: 02-01-2024 Sex Assigned At Female [facility] Tobacco smoking status Never Shyla [facility] Start: 1990 Sex Assigned At Female [facility] End: 04-30-2020 History of tobacco use Current smoker [facility] End: 04-30-2020 History of tobacco use Cigarette Smoker [facility] Start: 04-10-2022 End: 08-02-2023 Tobacco use and exposure Smokeless tobacco non-user [facility] Start: 02-01-2024 End: 07-01-2024 Alcoholic beverage intake Ex-drinker (finding) [facility] Start: 12-18-2022 End: 02-01-2024 History of Social function [facility] Has the [employer], or [employer] threatened to shut off services in your home in past 12Mo No [facility] Do you belong to any clubs or organizations such as episcopalian groups, unions, fraternal or athletic groups, or school groups? Yes [facility] Are you now , , , , never or living with a partner? Never [facility] How often to you hav e a drink containing alcohol? 2-4 times a month [facility] How many standard dr inks containing alcohol do you have on a typical day? 1 or 2 [facility] How often do you hav e 6 or more drinks on 1 occasion? Never [facility] Do you feel stress - tense, restless, nervous, or anxious, or unable to sleep at night because your mind is troubled all the time - these days [OSQ] Only a little [facility] Start: 1990 Sex assigned at Not on file [facility] Start: 12-03-2014 Sex Female (finding) [facility] Start: 12-03-2023 Tobacco use and exposure Former smokeless tobacco user [facility] Start: 02-07-2024 End: 05-28-2024 Alcoholic beverage intake Lifetime non-drinker (finding) [facility] Start: 02-25-2023 Sexual orientation Heterosexual (finding) [facility] Goals Date Patient Goal Desired Activity /State Personal health goal Comment on above: Formatting of this n ote might be different from the original. Evaluation of progress towards goal: under assessment Personal health goal Comment on above: Formatting of this n ote might be different from the original. Evaluation of progress towards goal: self care, family support Functional Status Date Assessment Result Facility 06-25-2024 Functional Status N/A [facility] 05-19-2024 Functional Status N/A [facility] 08-23-2023 Functional Status N/A [facility] 09-05-2022 Functional Status N/A [facility] 08-10-2022 Functional Status N/A [facility] 07-17-2022 Functional Status N/A [facility] [place] 02-16-2022 Functional Status N/A [facility] Clinical Notes 10-29-2019 to 07-09-2024 Sherman Calle MD - 07/09/2024 1:15 PM EDTLoretta Cleary PA-C - 07/08/2024 8:45 AM EDTPatient InstructionsTelephone Encounter - Joyce Feliz CMA - 07/07/2024 2:22 PM EDTDischarge InstructionsAppointments Note Date & Type Note Facility 07-09-2024 History of Present illness Narrative Images from the original note were not included. [address] [address] Date of Service: 07/09/2024 Subjective: Blanca Rudolph is a 33 y.o. female who presents today for evaluation Lupus. Patient is seen at the request of RICKIE CHAN. This is a follow-up visit with this patient who is 33-year-old female patient presenting today as an established patient for follow-up of lupus nephritis was seen 1st time on 11/20/2022 last time the clinic was 04/09/2024 Patient illness started on with history of [...] white BC, serum creatinine 1.34 mg/dL was [id number], , liver enzymes normal as well as [...] urine PCR normal urinalysis > 720 WBCs Patient was hospitalized recently with influenza with altered kidney function that did go back to near previous level. Today patient has no specific complaints and has been feeling fairly well Review of Systems: Review of Systems Constitutional: Negative. HENT: Negative. Gastrointestinal: Negative. Genitourinary: Negative for dysuria and frequency. Musculoskeletal: Negative. Skin: Negative. Current Outpatient Medications Medication Sig Dispense Refill acetaminophen (TYLENOL EXTRA STRENGTH) 500 mg tablet Take 1 tablet (500 mg total) by mouth every 6 (six) hours as needed for pain or fever. 30 tablet 0 albuterol (PROVENTIL HFA;VENTOLIN HFA) 90 mcg/actuation inhaler Inhale 2 puffs every 6 (six) hours as needed for wheezing. 18 g 11 allopurinoL (ZYLOPRIM) 100 mg tablet Take 1 tablet (100 mg total) by mouth in the morning. aspirin 81 mg Take 1 tablet (81 mg total) by mouth in the morning. benzonatate (TESSALON PERLES) 200 mg capsule Take 1 capsule (200 mg total) by mouth 3 (three) times a day as needed for cough. 20 capsule 0 blood pressure monitor kit TAKE B/P 2-3 [...] mg total) before bedtime. 60 tablet 11 cyanocobalamin 1000 MCG tablet Take 1 tablet [...] as needed for itching. 30 capsule 0 enoxaparin (LOVENOX) 40 mg/0.4 mL syringe Inject 0.4 mL (40 mg total) under the skin in the morning. 4 mL 0 ferrous sulfate (FERROUSUL) 325 (65 FE) mg [...] 1 tablet (400 mg total) before bedtime. potassium chloride (KLOR-CON M 20) 20 MEQ CR tablet Take 1 tablet (20 mEq total) by mouth in the morning and 1 tablet (20 mEq total) before bedtime. 180 tablet 3 rivaroxaban (XARELTO) 20 mg tablet tablet Take 1 tablet (20 mg total) by mouth in the morning. 90 tablet 3 amitriptyline (ELAVIL) 50 mg tablet Take 1 tablet (50 mg total) by mouth nightly. Take1 tablets (50 mg) nightly 30 tablet 5 mycophenolate (CELLCEPT) 500 mg tablet 3 tab twice daily 540 tablet 1 predniSONE (DELTASONE) 5 mg tablet 1. TAB DAILY 90 tablet 1 voclosporin 7.9 mg capsule Take 23.7 mg by mouth in the morning and 23.7 mg before bedtime. 60 capsule 5 No current facility-administered medications for this visit. [...] rhythm. Pulmonary: Effort: Pulmonary effort is normal. No [...] Tender (ROSAS-28): -- Swollen (ROSAS-28): -- BP 138/74 Resp 18 Ht 172.7 cm (5' 7.99 ) Wt 123.4 kg (272 lb) LMP 06/23/2024 (Approximate) BMI 41.37 kg/m : reviewed Labs and Imaging: reviewed and discussed with the patient during the visit.I Lab Results Component Value Date WBC 5.1 07/08/2024 HGB 12.5 07/08/2024 HCT 35.3 07/08/2024 MCV 91 07/08/2024 CRP 0.5 07/08/2024 C3 130 07/01/2024 C4 35 07/01/2024 GFR >60 12/07/2021 GFR >60 12/07/2021 AST 15 07/08/2024 AST 22 06/03/2023 Imaging: Assessment and Plan: Blanca Rudolph is a 33 y.o. female patient with: 1. Systemic lupus erythematosus, unspecified SLE type, unspecified organ involvement status ([facility] - predniSONE (DELTASONE) 5 mg tablet; 1. TAB DAILY Dispense: 90 tablet; Refill: 1 - mycophenolate (CELLCEPT) 500 mg tablet; 3 tab twice daily Dispense: 540 tablet; Refill: 1 2. Stage IV lupus nephritis (WHO) ([facility]) - predniSONE (DELTASONE) 5 mg tablet; 1. TAB DAILY Dispense: 90 tablet; Refill: 1 - voclosporin 7.9 mg capsule; Take 23.7 mg by mouth in the morning and 23.7 mg before bedtime. Dispense: 60 capsule; Refill: 5 - mycophenolate (CELLCEPT) 500 mg tablet; 3 tab twice daily Dispense: 540 tablet; Refill: 1 - CBC auto differential; Future - Erythrocyte Sedimentation Rate (ESR); Future - C-reactive protein; Future - Urinalysis; Future - Protein creat ratio; Future 3. Fibromyalgia - amitriptyline (ELAVIL) 50 mg tablet; Take 1 tablet (50 mg total) by mouth nightly. Take1 tablets (50 mg) nightly Dispense: 30 tablet; Refill: 5 4. Encounter for technician terminal and repeater use of mycophenolate mofetil - mycophenolate (CELLCEPT) 500 mg tablet; 3 tab twice daily Dispense: 540 tablet; Refill: 1 - Comprehensive metabolic panel; Future - CBC auto differential; Future At this point patient has been doing fairly well and tolerating voclosporin. She did have deterioration in kidney function when she had recent influenza however serum creatinine are improving. Keep patient on current medications Return to [...] or corrected. Thank you for your understanding. [facility] Dr. Sherman Calle MD [address] [facility] [address] [facility] [address], [address] [place] [address] Office: [phone] documented in this encounter [facility] 07-08-2024 History of Present illness Narrative Blanca Rudolph Date of visit: 07/08/2024 Date of : 1990 Age: 33 y.o. Patient Active Problem List Diagnosis Chronic hypertension History of severe pre-eclampsia Bilateral pulmonary embolism ([facility] October 2019 History of DVT (deep vein thrombosis) LSIL Pap Delivery of by section Abdominal hematoma Abdominal pain Blood loss anemia Nephrotic syndrome Acute kidney injury superimposed on stage 3a chronic kidney disease ([facility]) SLE (systemic lupus erythematosus) ([facility]) Positive serology for syphilis Vitamin D deficiency Stage IV lupus nephritis (WHO) ([facility]) Encounter for technician terminal and repeater use of mycophenolate mofetil FPC systemic steroid user Fibromyalgia Menorrhagia with irregular cycle Other chest pain Preoperative clearance Migraine without aura and without status migrainosus, not intractable Dyspnea on exertion Right sided weakness Acid reflux Gastritis ADD (attention deficit disorder) Allergic rhinitis Alternating constipation and diarrhea Anxiety Calculus of gallbladder Cholelithiasis Cyst of Bartholin's gland duct Depressive disorder Epigastric pain RUQ cramping Exposure to HIV Frequent UTI Latent syphilis Left ventricular hypertrophy FPC current use of cannabis Low grade squamous intraepithelial lesion (LGSIL) on cervicovaginal cytologic smear Microscopic hematuria Nausea Pelvic pain in female Type II diabetes mellitus ([facility]) Lopez's palsy Hypokalemia Lupus (systemic lupus erythematosus) ([facility]) Headache Stage 3a chronic kidney disease ([facility]) Hyponatremia Allergies Allergen Reactions Garlic Ibuprofen Other Reaction(s): medication interference Keflex [Cephalexin] Sulfamethoxazole-Trimethoprim Rash ??? pt says she gets 'heat rash' often. however developed 'worse' rash than usual shortly after taking bactrim. has taken previously with NO reaction. Current Outpatient Medications Medication Sig Dispense Refill acetaminophen (TYLENOL EXTRA STRENGTH) 500 mg tablet Take 1 tablet (500 mg total) by mouth every 6 (six) hours as needed for pain or fever. 30 tablet 0 albuterol (PROVENTIL HFA;VENTOLIN HFA) 90 mcg/actuation inhaler Inhale 2 puffs every 6 (six) hours as needed for wheezing. 18 g 11 allopurinoL (ZYLOPRIM) 100 mg tablet Take 1 tablet (100 mg total) by mouth in the morning. amitriptyline (ELAVIL) 50 mg tablet Take 1 tablet (50 mg total) by mouth nightly. Take1 tablets (50 mg) nightly 30 tablet 5 aspirin 81 mg Take 1 tablet (81 mg total) by mouth in the morning. benzonatate (TESSALON PERLES) 200 mg capsule Take 1 capsule (200 mg total) by mouth 3 (three) times a day as needed for cough. 20 capsule 0 blood pressure monitor kit TAKE B/P 2-3 [...] mg total) before bedtime. 60 tablet 11 cyanocobalamin 1000 MCG tablet Take 1 tablet [...] as needed for itching. 30 capsule 0 enoxaparin (LOVENOX) 40 mg/0.4 mL syringe Inject 0.4 mL (40 mg total) under the skin in the morning. 4 mL 0 ferrous sulfate (FERROUSUL) 325 (65 FE) mg [...] 1 tablet (400 mg total) before bedtime. mycophenolate (CELLCEPT) 500 mg tablet Take 2 tablets (1,000 mg total) by mouth 2 (two) times a day for 2 days, THEN 3 tablets (1,500 mg total) 2 (two) times a day for 30 days. potassium chloride (KLOR-CON M 20) 20 MEQ CR tablet Take 1 tablet (20 mEq total) by mouth in the morning and 1 tablet (20 mEq total) before bedtime. 180 tablet 3 predniSONE (DELTASONE) 5 mg tablet 1. TAB DAILY 30 tablet 3 rivaroxaban (XARELTO) 20 mg tablet tablet Take 1 tablet (20 mg total) by mouth in the morning. 90 tablet 3 voclosporin 7.9 mg capsule Take 23.7 mg by mouth in the morning and 23.7 mg before bedtime. 60 capsule 3 No current facility-administered medications for this visit. Chief Complaint Patient presents with Pre-op Exam PRE OP D&C DR ALBRIGHT FAX [phone] NO TESTS History of Present Illness Blanca Rudolph is a 33-year-old female with a past medical history of bilateral PE SLE, fibromyalgia, atypical chest pain, hypertension Recent emergency room admission for complaints of acute kidney injury, in the setting of diagnosed with influenza patient had a peak creatinine of 2.71 was seen by Nephrology and discharge when returned to baseline. Presents today for preoperative risk stratification for a D and C, with OBGYN, presents today for follow up no complaints of chest pain, shortness of breath, dyspnea on exertion, heart palpitations, her atypical chest discomfort has resolved. Patient has greater than 4 METs, can easily walk 1 or 2 blocks without stopping, is able to run if she absolutely had to. EKG performed on 06/16 shows chronic T-wave abnormalities in the inferolateral leads Past Medical History: Diagnosis Date ADD (attention deficit disorder) Angina pectoris ([facility] Depression DVT (deep vein thrombosis) in Heart murmur History of gestational diabetes History of pre-eclampsia History of delivery History of twin in prior Hypertension Morbid obesity ([facility]) Nephrotic syndrome 11/22/2022 PPH ( hemorrhage) Pulmonary emboli ([facility]) 10/2019 Request for sterilization 02/03/2020 Signed 02/03/2020 [facility] SLE (systemic lupus erythematosus) ([facility]) 11/28/2022 No data recorded No data recorded No data recorded Past Surgical History: Procedure Laterality Date REPEAT N/A 04/03/2019 Performed by Aquiles Abbott MD at [facility] OR REPEAT TUBAL LIGATION N/A 06/02/2020 Performed by John Person MD at [facility] OR D AND C SUCTION N/A 03/18/2018 Performed by Kat Jeffers MD at [facility] Family History Problem Relation Age of Onset Stroke Mother Hypertension Mother Stroke Maternal Grandmother Kidney failure Maternal Grandmother Heart defect Son Stroke Maternal Aunt Hypertension Maternal Aunt REQUIRED DIALYSIS Social History Socioeconomic History Marital status: Single Spouse name: Not on file Number of children: Not on file Years of education: Not on file Highest education level: Not on file Occupational History Not on file Tobacco Use Smoking status: Former Current packs/day: 0.00 Types: Cigarettes Quit date: 2020 Years since quittin.1 Smokeless tobacco: Never Vaping Use Vaping status: Never Used Substance and Sexual Activity Alcohol use: Not Currently Drug use: Not Currently Types: Marijuana Comment: every day Sexual activity: Yes Other Topics Concern Caffeine Use No Social History Narrative Not on file Social Drivers of Health Financial Resource Strain: Low Risk (12/18/2022) Overall Financial Resource Strain (CARDIA) Difficulty of Paying Living Expenses: Not hard at all Food Insecurity: No Food Insecurity (07/01/2024) Hunger Screening Food Insecurity - Worry: Never True Food Insecurity - Inability: Never True Transportation Needs: No Transportation Needs (07/01/2024) PRAPARE - Transportation Lack of Transportation (Medical): No Lack of Transportation (Non-Medical): No Physical Activity: Insufficiently Active (12/18/2022) Exercise Vital Sign Days of Exercise per Week: 7 days Minutes of Exercise per Session: 20 min Stress: No Stress Concern Present (12/18/2022) [employer] [place] [employer] - Occupational Stress Questionnaire Feeling of Stress : Only a little Social Connections: Moderately Integrated (12/18/2022) Social Connection and Isolation Panel [NHANES] Frequency of Communication with Friends and Family: More than three times a week Frequency of Social Gatherings with Friends and Family: More than three times a week Attends Yazidi Services: More than 4 times per year Active Member of Clubs or Organizations: Yes Attends Club or Organization Meetings: More than 4 times per year Marital Status: Never Interpersonal Safety: Not At Risk (07/01/2024) Humiliation, Afraid, Rape, and Kick questionnaire Fear of Current or Ex-Partner: No Emotionally Abused: No Physically Abused: No Sexually Abused: No Housing Instability: Low Risk (07/01/2024) Housing Instability Housing Instability: No Review of Systems Review of Systems Constitutional: Negative for malaise/fatigue. Cardiovascular: Negative for chest pain. Respiratory: Negative for cough, shortness of breath and wheezing. Hematologic/Lymphatic: Does not bruise/bleed easily. Musculoskeletal: Negative for joint pain, joint swelling, muscle cramps and muscle weakness. Gastrointestinal: Negative for heartburn, nausea and vomiting. Genitourinary: Negative for hematuria. Neurological: Negative for dizziness, headaches and light-headedness. Psychiatric/Behavioral: Negative for depression. The patient is not nervous/anxious. Vascular: Negative for claudication and lower extremity wounds or ulcers. CARDIOVASCULAR: Please review HPI. Physical Examination General appearance: Alert, oriented and cooperative. In no acute distress. Skin: Warm and dry to touch. Head: Normocephalic, without obvious abnormality, atraumatic. Ears, Nose, Mouth, Throat: Throat clear without erythema or exudate. Dentition intact. Eyes: Conjunctivae unremarkable, EOM intact. Neck: No JVD Respiratory: Clear to auscultation bilaterally, no use of accessory muscles. Cardiovascular: RRR with normal S1 and S2 with no murmurs. Gastrointestinal: Soft, non-tender. Bowel sounds normal. Musculoskeletal: No peripheral edema. Neurologic: Oriented to time, person and place, affect appropriate. No focal/major motor defects noted. Psychiatric: Appropriate mood, memory and judgement. VITAL SIGNS: BP 130/70 Pulse 74 Ht 172.7 cm (5' 8 ) Wt 124.3 kg (274 lb) LMP 06/23/2024 (Approximate) BMI 41.66 kg/m No orders of the defined types were placed in this encounter. There are no discontinued medications. IMPRESSIONS/PLAN 1. Pre-op examination -patient will be low risk, non prohibitive for D and C with OBGYN, aspirin may be held for 7 days as requested, will defer Xarelto to patient's oncology team, planning on bridging with Lovenox after the procedure, patient did call while in the office and ensure that she is in fact using Lovenox after. -EF greater than 4METs, calcium score of 0 on CTA 2. Chronic hypertension -well controlled, continue carvedilol 6.25 mg b.i.d. 3. Bilateral pulmonary embolism ([facility]) October 2019 -follows with hematology on Xarelto 4. Systemic lupus erythematosus, unspecified SLE type, unspecified organ involvement status ([facility]) 5. CTA of the coronaries 05/2023, calcium score of 0 with no stenosis or plaque 6. CKD follows with Nephrology With calcium score of 0 no strong indication for aspirin given that she is on Xarelto, can likely stop, overall feels well patient will follow up in 6-9 I am on seen with Dr. Wren in the office. TODAYS ORDERS No orders of the defined types were placed in this encounter. FOLLOW UP Return in about 6 months (around 01/08/2025). PCP: RICKIE CHAN Referring Physician: RICKIE Chan [address] [place] [id number] Loretta Cleary PA-C 07/08/24 0923 [facility] 07-08-2024 Instructions Loretta Cleary PA-C - 07/08/2024 8:45 AM EDT Low risk- non prohibitive for procedure, aspirin may be held for 7 days, to be resumed following surgery, will defer Xarelto to your hematology/oncology team Continue current medications Follow up in 6-9 months [facility]-07-2024 Miscellaneous Notes Called patient to remind them to bring their most current copy of their medication list with them to their appt. Patient verbalizes understanding. documented in this encounter [facility] 07-07-2024 Telephone encounter Note Called patient to remind them to bring their most current copy of their medication list with them to their appt. Patient verbalizes understanding. [facility] 06-26-2024 History of Present illness Narrative MD Sofia Bradley RN The patient should hold off Xarelto from July 07. Resume 2 days after surgery with D&C. She should hold off on aspirin 1 week prior to procedure. By the way I did not start her on aspirin, if she has any cardiac issue that requires aspirin she should get clearance from her Cardiology. Juan C Valle M.D. [facility] [address] [place] [address] documented in this encounter [facility] 06-10-2024 History of Present illness Narrative Reason for Appointment: Patient ID: Blanca Rudolph is a 33 y.o. female who presents for Pre-op Visit (Pt present today for pre operative visit.) Patient presents today for Pre Op appointment. Patient is scheduled to undergo Diagnostic Laparoscopy, possible BHAVIK, possible FOE, possible BSO and D&C Hysteroscopy, possible Myosure on 07/04/[address] Albright at [facility]. MEDICATIONS Current Outpatient Medications Medication Instructions acetaminophen [...] times daily ergocalciferol (Vitamin D2) 1.25 MG (69528 UT) capsule etonogestrel-eluting (Nexplanon) 68 mg contraceptive [...] Cardiovascular: Negative. Gastrointestinal: Negative. Genitourinary: Positive for menstrual problem and pelvic pain. Musculoskeletal: Negative. [...] nursing note reviewed. Exam conducted with a branch logistics supervisor present. Vitals: Estimated body mass index is 42.27 kg/m as calculated from the following: Height as of 12/24/23: 5' 8 . Weight as of this encounter: 278 lb. BP: 128/76 No LMP recorded. Patient has had an implant. ASSESSMENT & PLAN ICD-10-CM 1. Pre-op evaluation Z01.818 2. Pelvic pain in female R10.2 3. Abnormal uterine bleeding (AUB) N93.9 Pre Op: Patient is doing well but has complaints of pelvic pain, am. I have discussed conservative management vs. surgical management with the patient in detail and patient desires surgical management at this time. Patient will undergo Diagnostic Laparoscopy, possible BHAVIK, possible FOE, possible BSO and D&C Hysteroscopy, possible Myosure on 07/04/2024. Surgical consents were signed, mmc was reviewed, and patient is to proceed to [facility] OR. Follow Up: Patient is to follow up between 1-2 weeks post operative to assess proper healing and recovery from procedure. Documented by Deedee Platt LPN on behalf of: Mayco Albright DO documented in this encounter [facility] 06-06-2024 Miscellaneous Notes Arianna Alexander Reschedule: Patient's appointment with Arianna Alexander on August 13, 2024 needs to be rescheduled at this time due to provider out of clinic. Contacted patient and offered to reschedule for next available, per cabinetmaker supervisor's instruction. Patient is rescheduled to see Arianna Alexander at our [place] location on 08/26/24 at 11:00a documented in this encounter [facility] 06-06-2024 Telephone encounter Note Arianna Alexander Reschedule: Patient's appointment with Arianna Alexander on August 13, 2024 needs to be rescheduled at this time due to provider out of clinic. Contacted patient and offered to reschedule for next available, per cabinetmaker supervisor's instruction. Patient is rescheduled to see Arianna Alexander at [facility] location on 08/26/24 at 11:00a [facility] 05-28-2024 History of Present illness Narrative Reason for Appointment: Patient ID: Blanca Rudolph is a 33 y.o. female who presents for Well Women Visit Patient presents today for Annual Exam. MEDICATIONS Current Outpatient Medications Medication Instructions acetaminophen [...] times daily ergocalciferol (Vitamin D2) 1.25 MG (74914 UT) capsule etonogestrel-eluting (Nexplanon) 68 mg contraceptive [...] Constitutional: Appearance: Normal appearance. She is well-developed. Genitourinary: Vulva normal. Breasts: Breasts are soft. Right: Normal. Left: Normal. Cardiovascular: Rate and Rhythm: Normal rate and [...] nursing note reviewed. Exam conducted with a branch logistics supervisor present. Vitals: Estimated body mass index is 41.33 kg/m as calculated from the following: Height as of 12/24/23: 5' 8 . Weight as of this encounter: 271 lb 12.8 oz. BP: 130/88 No LMP recorded. Patient has had an implant. ASSESSMENT & PLAN ICD-10-CM 1. Well woman exam with routine gynecological exam Z01.419 Pap Smear HPV DNA probe, amplified Annual Exam: Patient presents today for an annual exam. Patient states she is doing well and has complaints. Pap was obtained without difficulty. Orders Placed This Encounter Procedures HPV DNA probe, amplified Follow Up: Patient is to return in one year for annual unless needed otherwise. Documented by Deedee Platt LPN on behalf of: Mayco Albright DO documented in this encounter [facility] 05-19-2024 Hospital Discharge instructions Patient Education 05/19/2024 [...] provider. Document Revised: 11/14/2022 Document Reviewed: 11/14/2022 [employer] Patient Education 2023 [employer]. Follow Up Care 05/12/2024 09:48:47 With:PAULINA JOY, CYNTHIA Haywood, URL Address: [address] [place], [place] [address] [address] When:Within 1 Year(s) [facility] 05-19-2024 Note Patient Education Caregiving Antibiotic Medicine, [...] You have sig (more content not included)... [facility] 05-13-2024 History of Present illness Narrative Reason [...] times daily ergocalciferol (Vitamin D2) 1.25 MG (07544 UT) capsule etonogestrel-eluting (Nexplanon) 68 mg contraceptive [...] nursing note reviewed. Exam conducted with a branch logistics supervisor present. Vitals: Estimated body mass index is [...] Mayco Albright DO documented in this encounter [facility] 04-29-2024 Miscellaneous Notes Patient called and would like to know if she could have a refill or new order of Voclosporin 7.9 mg capsule because she is about to be out of this medication? Please advise documented in this encounter [facility] [employer] 04-29-2024 Telephone encounter Note Patient called and would like to know if she could have a refill or new order of Voclosporin 7.9 mg capsule because she is about to be out of this medication? Please advise [facility] 04-14-2024 History of Present illness Narrative Reason for Appointment: Patient ID: Blanca Rudolph is a 33 y.o. female who presents for No chief complaint on file. Patient presents today via telephone call for a telehealth appointment. Patients Phone #: [phone] (mobile) Current Medications: has a current medication [...] of: JASWANT Gudino documented in this encounter [facility] 04-09-2024 History of Present illness Narrative Images from the original note were not included. [address] [address] Date of Service: 04/09/2024 Subjective: Blanca Rudolph [...] white BC, serum creatinine 1.34 mg/dL was [id number], , liver enzymes normal as well as [...] unspecified SLE type, unspecified organ involvement status ([facility]) - mycophenolate (CELLCEPT) 500 mg tablet; 3 tab twice daily Dispense: 180 tablet; Refill: 3 - predniSONE (DELTASONE) 5 mg tablet; 1. TAB DAILY Dispense: 30 tablet; Refill: 3 2. Stage IV lupus nephritis (WHO) ([facility]) - mycophenolate (CELLCEPT) 500 mg tablet; 3 [...] 30 tablet; Refill: 5 4. Encounter for technician terminal and repeater use of mycophenolate mofetil - mycophenolate (CELLCEPT) [...] or corrected. Thank you for your understanding. [facility] Rhe[facility] Dr. Sherman Calle MD [address] [facility], [address] [place] [address] Office: [phone] documented in this encounter [facility] 04-09-2024 Note 04/09/2024 Subjective Patient ID: Blanca Rudolph is a 33 y.o. female who presents for Contact with and (suspected) exposure to human immunodefici (Currently taking ATB for UTI unsure of name). HPI: This is a [id number]-female patient on Descovy since November 2022 presenting to [facility] for preexposure prophylaxis (PrEP) to prevent HIV infection. Patient reports tolerance and compliance to ART without missed doses and denies any side effect. 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 Vitamin D deficiency SLE (systemic lupus erythematosus) ([facility]) Pulmonary embolism ([facility]) Positive serology for syphilis On anticoagulant therapy Nephrotic syndrome Menorrhagia with irregular cycle Low grade squamous intraepithelial lesion (LGSIL) on cervicovaginal cytologic smear Low grade squamous intraepithelial lesion (LGSIL) on cervical Pap smear History of severe pre-eclampsia History of DVT (deep vein thrombosis) Fibromyalgia 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 [facility] 04-02-2024 History of Present illness Narrative Reason [...] times daily ergocalciferol (Vitamin D2) 1.25 MG (91832 UT) capsule etonogestrel-eluting (Nexplanon) 68 mg contraceptive [...] of: JASWANT Gudino documented in this encounter [facility] 04-02-2024 Note chart Creatinine (mg/dL) Date Value [...] 03/05/1992, 07/28/1993, 08/28/1996 Tdap 01/20/2009, 04/02/2019, 03/23/2020 [facility] 03-18-2024 History of Present illness Narrative OUTPATIENT [...] for questions after session. PARRIS WYATT, RDN, [facility] Diabetes and Nutrition Education Video Visit via Real-time Synchronous Audiovisual Provider Location: [facility] - OUTPATIENT DIABETES AND NUTRITION EDUCATION PROGRAM [address] [place] [id number] Patient Location: Patient's home Video Visit Consent [...] that there are some limitations compared to [id number] evaluations. The patient consented to the presence of additional virtual and/or in-person participants. We elected to proceed. documented in this encounter [facility] [employer] [facility] 03-17-2024 Miscellaneous Notes JASWANT request received for nava Rowe pending on [facility] with nuno # [id number] Approved with Sarbari case # [id number] valid till 09/08/24 documented in this encounter [facility] 03-17-2024 Telephone encounter Note JASWANT request received for Cher, case pending on [facility] with nuno # [id number] [facility] 03-17-2024 Telephone encounter Note Approved with Sarbari case # [id number] valid till 09/08/24 [facility] 03-14-2024 History of Present illness Narrative [facility] Neurology Office Note 03/14/2024 9:17 AM Patient info: Blanca Rudolph is a 33 y.o. female Account No.: [id number] Acct: : 1990 PCP: RICKIE CHAN Chief [...] of significant head injury/trauma: (-) hx of SIEVE MAKER infection: (-) hx of stroke or cerebrovascular [...] office in 4-6 months Electronically Signed by: Arianna Alexander PA-C 03/16/24 1314 [facility] 03-10-2024 Miscellaneous Notes Patient is taking Bumex 2mg in the am and 2mg in the evenings. Please send to Jacob d/t R/A closing RX SENT [facility] 03-10-2024 Telephone encounter Note Patient is taking Bumex 2mg in the am and 2mg in the evenings. Please send to Jacob d/t R/A closing [facility] 03-10-2024 Telephone encounter Note RX SENT [facility] 03-04-2024 Miscellaneous Notes Patient called asked for a refill documented in this encounter [facility] 03-04-2024 Telephone encounter Note Patient called asked for a refill [facility] 02-11-2024 Miscellaneous Notes Patient called in stating that she saw on her MyChart that some labs that were taken at ED visit 01/31/24-02/05/24 stated abnormal results. Patient is asking for a call back to further discuss these. This is Ganga Alexander's patient. CSF labs (from LP) look good/normal. Looks like her kidney function is somewhat impaired, similar to previous labs taken earlier in the year. - [facility] Patient was contacted and informed of results. Patient voiced understanding. documented in this encounter [facility] 02-11-2024 Telephone encounter Note Patient called in stating that she saw on her MyChart that some labs that were taken at ED visit 01/31/24-02/05/24 stated abnormal results. Patient is asking for a call back to further discuss these. [facility] 02-11-2024 Telephone encounter Note This is Ganga Alexander's patient. [facility] 02-11-2024 Telephone encounter Note CSF labs (from LP) look good/normal. Looks like her kidney function is somewhat impaired, similar to previous labs taken earlier in the year. - [facility] 02-11-2024 Telephone encounter Note Patient was contacted and informed of results. Patient voiced understanding. [facility] 02-05-2024 Nurse Note Summary: discharge Patient VSS. Patient Iv removed, patient taken to entrance C to wait for ride per policy. denial resolution specialist wheeled patient down. [facility] 02-05-2024 Nurse Note Summary: discharge Patient VSS. Patient Iv removed, patient taken to entrance C to wait for ride per policy. denial resolution specialist wheeled patient down. To room in no apparent distress and report phoned to floor nurse Received post-op and pt lays flat until 1100 and POC discussed. fmonitoring Received to IRR pre-op and POC discussed documented in this encounter [facility] 02-05-2024 Progress note Formatting of t his note might be different from the original. Patient taken to entrance C departure lobby to wait for ride to arrive. [facility] 02-05-2024 Miscellaneous Notes Patient taken to entrance C departure lobby to wait for ride to arrive. Problem: Pain Goal: Patient goal is pain score less than 4, able to rest, and participant in treatment plan as appropriate Description: INTERVENTIONS: 1. Encourage patient or legal textile machinery sales representative to report early pain and ask [...] per policy 9. Teach patient or legal textile machinery sales representative interventions for comforting Outcome: Progressing Note: [...] at the bedside 7. Instruct patient/ patient textile machinery sales representative about use of safety devices 8. Include patient/ patient textile machinery sales representative in decisions related to safety Outcome: Progressing Note: Evaluation of progress towards goal: Patient free from injury, will continue to provide a clean environment, personal objects in reach, and a well light room Problem: Knowledge Deficit Goal: Patient/patient textile machinery sales representative demonstrates understanding of disease process, treatment [...] LP Discharge Plan: Home with supportive mother. [facility] tasked to arrange hospital follow up with PCP office. Care Navigation will continue to follow for any discharge needs - Hilda Hsu RN 02/05/24 1:40 PM Problem: Pain Goal: Patient goal is pain score less than 4, able to rest, and participant in treatment plan as appropriate Description: INTERVENTIONS: 1. Encourage patient or legal textile machinery sales representative to report early pain and ask [...] per policy 9. Teach patient or legal textile machinery sales representative interventions for comforting Outcome: Progressing Note: [...] at the bedside 7. Instruct patient/ patient textile machinery sales representative about use of safety devices 8. Include patient/ patient textile machinery sales representative in decisions related to safety Outcome: Progressing Note: Evaluation of progress towards goal: Patient free from injury; bed to low position; skid free socks applied; call light in reach Problem: Knowledge Deficit Goal: Patient/patient textile machinery sales representative demonstrates understanding of disease process, treatment [...] with self care/family assistance. Patient transferred from [facility] and was seen by care navigation. Patient [...] Description: INTERVENTIONS: 1. Encourage patient or legal textile machinery sales representative to report early pain and ask [...] per policy 9. Teach patient or legal textile machinery sales representative interventions for comforting Outcome: Progressing Note: [...] at the bedside 7. Instruct patient/ patient textile machinery sales representative about use of safety devices 8. Include patient/ patient textile machinery sales representative in decisions related to safety Outcome: [...] hygiene technique 7. Identify and instruct patient/patient textile machinery sales representative in use of appropriate isolation precautions for identified infection/symptoms 8. Provide and discuss with patient/patient textile machinery sales representative on educational MDRO sheet 9. Encourage and monitor nutritional status daily and consult railway track plant operator if indicated 10. Implement neutropenic guidelines as [...] infection prevention. Problem: Knowledge Deficit Goal: Patient/patient textile machinery sales representative demonstrates understanding of disease process, treatment [...] Description: INTERVENTIONS: 1. Encourage patient or legal textile machinery sales representative to report early pain and ask [...] per policy 9. Teach patient or legal textile machinery sales representative interventions for comforting Outcome: Progressing Note: [...] at the bedside 7. Instruct patient/ patient textile machinery sales representative about use of safety devices 8. Include patient/ patient textile machinery sales representative in decisions related to safety Outcome: Progressing Note: Evaluation of progress towards goal: Patient free from injury; bed to low position; skid free socks applied; call light in reach Problem: Knowledge Deficit Goal: Patient/patient textile machinery sales representative demonstrates understanding of disease process, treatment [...] Description: INTERVENTIONS: 1. Encourage patient or legal textile machinery sales representative to report early pain and ask [...] per policy 9. Teach patient or legal textile machinery sales representative interventions for comforting Outcome: Progressing Note: [...] at the bedside 7. Instruct patient/ patient textile machinery sales representative about use of safety devices 8. Include patient/ patient textile machinery sales representative in decisions related to safety Outcome: [...] hygiene technique 7. Identify and instruct patient/patient textile machinery sales representative in use of appropriate isolation precautions for identified infection/symptoms 8. Provide and discuss with patient/patient textile machinery sales representative on educational MDRO sheet 9. Encourage and monitor nutritional status daily and consult railway track plant operator if indicated 10. Implement neutropenic guidelines as needed 11. Review exposure to history of communicable disease and recent travel history on admission 12. Encourage annual influenza vaccine 13. Encourage pneumonia vaccine Outcome: Progressing Note: Evaluation of progress towards goal: Patient afebrile, no s/s of infection noted at this time Problem: Knowledge Deficit Goal: Patient/patient textile machinery sales representative demonstrates understanding of disease process, treatment [...] of 0 - 24 or indicated by [facility] Assessment Goal: Patient should be free from fall Description: Interventions: 1. Elim to environment 2. Hourly rounds addressing the [...] non-skid footwear 11. Teach patient and patient textile machinery sales representative to maintain environment for safety and engage in all aspects of fall prevention program Outcome: Progressing Note: Evaluation of progress towards goal: Patient remains free from falls at this time, hourly rounding maintained Problem: Pain Goal: Patient goal is pain score less than 4, able to rest, and participant in treatment plan as appropriate Description: INTERVENTIONS: 1. Encourage patient or legal textile machinery sales representative to report early pain and ask [...] per policy 9. Teach patient or legal textile machinery sales representative interventions for comforting Outcome: Progressing Note: [...] at the bedside 7. Instruct patient/ patient textile machinery sales representative about use of safety devices 8. Include patient/ patient textile machinery sales representative in decisions related to safety Outcome: [...] hygiene technique 7. Identify and instruct patient/patient textile machinery sales representative in use of appropriate isolation precautions for identified infection/symptoms 8. Provide and discuss with patient/patient textile machinery sales representative on educational MDRO sheet 9. Encourage and monitor nutritional status daily and consult railway track plant operator if indicated 10. Implement neutropenic guidelines as needed 11. Review exposure to history of communicable disease and recent travel history on admission 12. Encourage annual influenza vaccine 13. Encourage pneumonia vaccine Outcome: Progressing Note: Evaluation of progress towards goal: continue antibiotics, monitor labs. Problem: Knowledge Deficit Goal: Patient/patient textile machinery sales representative demonstrates understanding of disease process, treatment [...] be free from fall Description: Interventions: 1. Elim to environment 2. Hourly rounds addressing the [...] non-skid footwear 11. Teach patient and patient textile machinery sales representative to maintain environment for safety and engage in all aspects of fall prevention program Outcome: Progressing Note: Evaluation of progress towards goal: patient is fall risk, no falls this shift. Continue to monitor Problem: Pain Goal: Patient goal is pain score less than 4, able to rest, and participant in treatment plan as appropriate Description: INTERVENTIONS: 1. Encourage patient or legal textile machinery sales representative to report early pain and ask [...] per policy 9. Teach patient or legal textile machinery sales representative interventions for comforting Outcome: Progressing Note: [...] at the bedside 7. Instruct patient/ patient textile machinery sales representative about use of safety devices 8. Include patient/ patient textile machinery sales representative in decisions related to safety Outcome: [...] hygiene technique 7. Identify and instruct patient/patient textile machinery sales representative in use of appropriate isolation precautions for identified infection/symptoms 8. Provide and discuss with patient/patient textile machinery sales representative on educational MDRO sheet 9. Encourage and monitor nutritional status daily and consult railway track plant operator if indicated 10. Implement neutropenic guidelines as needed 11. Review exposure to history of communicable disease and recent travel history on admission 12. Encourage annual influenza vaccine 13. Encourage pneumonia vaccine Outcome: Progressing Note: Evaluation of progress towards goal: Patient will remain free from infection until the end of the shift. Problem: Knowledge Deficit Goal: Patient/patient textile machinery sales representative demonstrates understanding of disease process, treatment [...] discharge planning process 5. Communicate referral to nurses educator as appropriate 6. Communicate referral to railway track plant operator as appropriate 7. Collaborate with case management/social work lecturer for discharge needs Outcome: Progressing Note: Evaluation of progress towards goal: Patients discharge needs will be assessed before the end of the shift. Problem: Moderate - High Risk Fall Score Description: Mckeon Fall Score of =/> 25 or indicated by [facility] Assessment Goal: Patient should be free from fall Description: Interventions: 1. Elim to environment 2. Hourly rounds addressing the [...] non-skid footwear 11. Teach patient and patient textile machinery sales representative to maintain environment for safety and [...] (cane, walker) within reach 19. Request patient textile machinery sales representative bring adaptive equipment/mobility aids from home or obtain and provide as needed 20. Consult pharmacy regarding effects of med's affecting mobility, cognition, and alternatives 21. Obtain physician order for PT if risk factors associated with mobility are present 22. Obtain physician order for OT as appropriate 23. Utilize diversional activities 24. Educate patient and patient textile machinery sales representative how to maintain a safe environment during visitation times (notify nurse prior to leaving bedside) 25. Consider appropriateness of medical or non-medical receptionist biller 26. Set up voiding schedule as appropriate (every 2 hours) Outcome: Progressing Note: Evaluation of progress towards goal: Patient will remain free from falls until the end of the shift. Problem: Pain Goal: Patient goal is pain score less than 4, able to rest, and participant in treatment plan as appropriate Description: INTERVENTIONS: 1. Encourage patient or legal textile machinery sales representative to report early pain and ask [...] per policy 9. Teach patient or legal textile machinery sales representative interventions for comforting Outcome: Progressing Note: [...] at the bedside 7. Instruct patient/ patient textile machinery sales representative about use of safety devices 8. Include patient/ patient textile machinery sales representative in decisions related to safety Outcome: [...] hygiene technique 7. Identify and instruct patient/patient textile machinery sales representative in use of appropriate isolation precautions for identified infection/symptoms 8. Provide and discuss with patient/patient textile machinery sales representative on educational MDRO sheet 9. Encourage and monitor nutritional status daily and consult railway track plant operator if indicated 10. Implement neutropenic guidelines as needed 11. Review exposure to history of communicable disease and recent travel history on admission 12. Encourage annual influenza vaccine 13. Encourage pneumonia vaccine Outcome: Progressing Note: Evaluation of progress towards goal: No s/s of infection at this time. Afebrile. Will continue to monitor Problem: Knowledge Deficit Goal: Patient/patient textile machinery sales representative demonstrates understanding of disease process, treatment [...] be free from fall Description: Interventions: 1. Elim to environment 2. Hourly rounds addressing the [...] non-skid footwear 11. Teach patient and patient textile machinery sales representative to maintain environment for safety and engage in all aspects of fall prevention program Outcome: Progressing Note: Evaluation of progress towards goal: patient is fall risk, no falls this shift. Continue to monitor Problem: Pain Goal: Patient goal is pain score less than 4, able to rest, and participant in treatment plan as appropriate Description: INTERVENTIONS: 1. Encourage patient or legal textile machinery sales representative to report early pain and ask [...] per policy 9. Teach patient or legal textile machinery sales representative interventions for comforting Outcome: Progressing Note: [...] at the bedside 7. Instruct patient/ patient textile machinery sales representative about use of safety devices 8. Include patient/ patient textile machinery sales representative in decisions related to safety Outcome: [...] hygiene technique 7. Identify and instruct patient/patient textile machinery sales representative in use of appropriate isolation precautions for identified infection/symptoms 8. Provide and discuss with patient/patient textile machinery sales representative on educational MDRO sheet 9. Encourage and monitor nutritional status daily and consult railway track plant operator if indicated 10. 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 Communicate referral to nurses educator as appropriate 6. Communicate referral to railway track plant operator as appropriate 7. Collaborate with case management/social work lecturer for discharge needs Outcome: Progressing Note: Evaluation of progress towards goal: Problem: Moderate - High Risk Fall Score Description: Mckeon Fall Score of =/> 25 or indicated by [facility] Assessment Goal: Patient should be free from fall Description: Interventions: 1. Elim to environment 2. Hourly rounds addressing the [...] non-skid footwear 11. Teach patient and patient textile machinery sales representative to maintain environment for safety and [...] (cane, walker) within reach 19. Request patient textile machinery sales representative bring adaptive equipment/mobility aids from home or obtain and provide as needed 20. Consult pharmacy regarding effects of med's affecting mobility, cognition, and alternatives 21. Obtain physician order for PT if risk factors associated with mobility are present 22. Obtain physician order for OT as appropriate 23. Utilize diversional activities 24. Educate patient and patient textile machinery sales representative how to maintain a safe environment during visitation times (notify nurse prior to leaving bedside) 25. Consider appropriateness of medical or non-medical receptionist biller 26. Set up voiding schedule as appropriate (every 2 hours) Outcome: Progressing Note: Evaluation of progress towards goal: Problem: Low Risk Fall Score Description: Mckeon Fall Score of 0 - 24 or indicated by [facility] Assessment Goal: Patient should be free from fall Description: Interventions: 1. Elim to environment 2. Hourly rounds addressing the [...] non-skid footwear 11. Teach patient and patient textile machinery sales representative to maintain environment for safety and engage in all aspects of fall prevention program Outcome: Progressing Note: Evaluation of progress towards goal: Elim to environment Hourly rounds addressing the 4 P's Clear area of hazards Place equipment within reach Maintain bed in lowest position Lock wheels on bed/wheelchair Problem: Pain Goal: Patient goal is pain score less than 4, able to rest, and participant in treatment plan as appropriate Description: INTERVENTIONS: 1. Encourage patient or legal textile machinery sales representative to report early pain and ask [...] per policy 9. Teach patient or legal textile machinery sales representative interventions for comforting Outcome: Progressing Note: [...] at the bedside 7. Instruct patient/ patient textile machinery sales representative about use of safety devices 8. Include patient/ patient textile machinery sales representative in decisions related to safety Outcome: Progressing Note: Evaluation of progress towards goal: patient educated on use of call light for assistance. Non slip socks on for safety. Call light within reach. documented in this encounter [facility] 02-05-2024 Plan of care note Problem: Pain Goal: Patient goal is pain score less than 4, able to rest, and participant in treatment plan as appropriate Description: INTERVENTIONS: 1. Encourage patient or legal textile machinery sales representative to report early pain and ask [...] per policy 9. Teach patient or legal textile machinery sales representative interventions for comforting Outcome: Progressing Note: [...] at the bedside 7. Instruct patient/ patient textile machinery sales representative about use of safety devices 8. Include patient/ patient textile machinery sales representative in decisions related to safety Outcome: Progressing Note: Evaluation of progress towards goal: Patient free from injury, will continue to provide a clean environment, personal objects in reach, and a well light room Problem: Knowledge Deficit Goal: Patient/patient textile machinery sales representative demonstrates understanding of disease process, treatment plan, medications, and discharge instructions Description: INTERVENTIONS 1. Complete learning assessment and assess knowledge base 2. Provide teaching at level of understanding 3. Provide teaching via preferred learning method(s) Outcome: Progressing Note: Evaluation of progress towards goal: Patient kept updated on plan of care, will continue to keep updated as new information arises [facility] 02-05-2024 Progress note Formatting of t his note might be different from the original. DISCHARGE PLANNING NOTE Follow-up Discharge Planning Progress Note Per RN during discharge transition rounds, barriers to discharge are: Pain. S/p LP Discharge Plan: Home with supportive mother. [facility] tasked to arrange hospital follow up with PCP office. Care Navigation will continue to follow for any discharge needs - Hilda Hsu RN 02/05/24 1:40 PM [facility] 02-05-2024 Hospital course Narrative Inpatient Discharge Summary BRIEF OVERVIEW Admitting Provider: Diogo Bray MD Discharge Provider: Sergio Kovacs MD Primary Care Physician at Discharge: CHELI JENNINGS APRN-PRECIPITATE WASHER [phone] Admission Date: 01/31/2024 Discharge Date: 02/05/24 Primary [...] LAB2 TTH IR TTH 03/14/2024 10:30 AM Arianna Alexander PA-C FMTP NEURO ARACELY [facility] 2 03/18/2024 9:30 AM PARRIS Wyatt DMO OP DIAB [facility] 04/02/2024 9:30 AM Sherman Calle MD [facility] 07/03/2024 9:00 AM Juan C Valle MD PFO MED ONC PFO Test Results Pending at Discharge Pending Labs Order Current Status CSF IgG Index Profile In process Myelin Oligodendrocyte Glycoprotein (MOG-IgG1) In process NMO/AQP4 FACS, Serum In process DETAILS OF HOSPITAL STAY Presenting Problem/History of Present Illness Lupus (systemic lupus erythematosus) ([facility]) [M32.9] Headache [R51.9] Blanca Rudolph is a [...] neck pressure pain radiating to her right church without exacerbating or remitting factors and associated [...] appointment until February so she returned to [place] ED. She had MRI brain done which showed subtle optic nerve sheath engorgement, flattened pituitary and possible DWI changes in superior convexities versus bone artifact on personal review. She received Tylenol and morphine for headache without relief. She was then transferred to [facility] for need for possible LP [...] sensation equally bilaterally Cerebellar: Able to do [id number] bilaterally; normal coordination Your medication list START [...] Your Medications These medications were sent to [facility] [id number] - [place], [place] - [address] [address] lidocaine 5 % Pat Hawk MD PGY-3 Neurology Resident [facility] Associated attestation - Sergio Kovacs MD - [...] excellent resident note. documented in this encounter [facility] 02-05-2024 Nurse Note To room in no apparent distress and report phoned to floor nurse [facility] 02-05-2024 Note IR SPINAL PUNCTURE L UMBAR DIAGNOSTIC Pre-procedure diagnosis: See history below Post-procedure diagnosis: Same as above Assistants/resident: See the technologist's notes above Consent/pre-procedure evaluation: See below. [place] protocol timeout verification performed. Estimated blood loss: [...] Alphonso Youngblood MD on 02/05/2024 10:27 AM [facility] 02-05-2024 Note Pre-procedure diagnosis: See history below Post-procedure diagnosis: Same as above Assistants/resident: See the technologist's notes above Consent/pre-procedure evaluation: See below. [place] protocol timeout verification performed. Estimated blood loss: [...] Alphonso Youngblood MD on 02/05/2024 10:27 AM [facility] 02-05-2024 Nurse Note Received post-op and pt lays flat until 1100 and POC discussed. fmonitoring [facility] 02-05-2024 Nurse Note Received to IRR pre-op and POC discussed T [facility] 02-04-2024 Plan of care note Problem: Pain Goal: Patient goal is pain score less than 4, able to rest, and participant in treatment plan as appropriate Description: INTERVENTIONS: 1. Encourage patient or legal textile machinery sales representative to report early pain and ask [...] per policy 9. Teach patient or legal textile machinery sales representative interventions for comforting Outcome: Progressing Note: [...] at the bedside 7. Instruct patient/ patient textile machinery sales representative about use of safety devices 8. Include patient/ patient textile machinery sales representative in decisions related to safety Outcome: Progressing Note: Evaluation of progress towards goal: Patient free from injury; bed to low position; skid free socks applied; call light in reach Problem: Knowledge Deficit Goal: Patient/patient textile machinery sales representative demonstrates understanding of disease process, treatment [...] to right arm and face has resolved [facility] [employer] [facility] 02-04-2024 Progress note Formatting of t his note might be different from the original. DISCHARGE PLANNING NOTE Case discussed in daily transition rounds and chart reviewed by CN. Barriers to discharge include migraine cocktail, IR guided LP 02/04, heparin gtt Discharge Plan remains: home with self care/family assistance. Patient transferred from [facility] and was seen by care navigation. Patient is planning to transition home with self care/family assistance as needed at discharge. Family will transport patient home at discharge. CN will continue to follow and is available should any further needs arise. - LORI RASCON 02/04/24 3:23 PM [facility] 02-04-2024 Consult note Associated Order (s): IP [...] involving body then returned to ED in [place]. 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 CTA H [...] No hemorrhages exudates or edema OU. . [place] sharp margins. OU. Vessels: Normal in [...] right eye. Thanks Elder Rehman MD, FACS. [facility] 02-04-2024 Consult note Associated Order (s): IP [...] involving body then returned to ED in [place]. 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 CTA H [...] No hemorrhages exudates or edema OU. . [place] sharp margins. OU. Vessels: Normal in [...] Rehman MD, FACS. documented in this encounter [facility] 02-04-2024 Hospital Discharge instructions Pat Hawk MD [...] call to reschedule. Thank you! MEME MCKEON, FIELD ATTENDANT-BODY SHOP FLOORPERSON Nurse Practitioner Family [facility] [phone] [id number] [facility] [address] Next Steps: Go on 02/15/2024 Instructions: 10:30 [...] For NEW patients, MD will not prescribe chcf pain medication. documented in this encounter [employer] 02-04-2024 Plan of care note Problem: Neurological [...] being performed as ordered by the prescriber. [facility] 02-04-2024 Plan of care note Problem: Pain Goal: Patient goal is pain score less than 4, able to rest, and participant in treatment plan as appropriate Description: INTERVENTIONS: 1. Encourage patient or legal textile machinery sales representative to report early pain and ask [...] per policy 9. Teach patient or legal textile machinery sales representative interventions for comforting Outcome: Progressing Note: [...] at the bedside 7. Instruct patient/ patient textile machinery sales representative about use of safety devices 8. Include patient/ patient textile machinery sales representative in decisions related to safety Outcome: [...] hygiene technique 7. Identify and instruct patient/patient textile machinery sales representative in use of appropriate isolation precautions for identified infection/symptoms 8. Provide and discuss with patient/patient textile machinery sales representative on educational MDRO sheet 9. Encourage and monitor nutritional status daily and consult railway track plant operator if indicated 10. Implement neutropenic guidelines as [...] infection prevention. Problem: Knowledge Deficit Goal: Patient/patient textile machinery sales representative demonstrates understanding of disease process, treatment plan, medications, and discharge instructions Description: INTERVENTIONS 1. Complete learning assessment and assess knowledge base 2. Provide teaching at level of understanding 3. Provide teaching via preferred learning method(s) Outcome: Progressing Note: Evaluation of progress towards goal: Patient is included in plan of care. All questions are answered at this time. Will continue to educate. [facility] 02-04-2024 History of Present illness Narrative Images from the original note were not included. [facility] Neurology General Neurology Primary Progress Note Primary Neurology service: [phone] Chief Complaint: Headache and right-sided weakness Interval [...] involving body then returned to ED in [place]. 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 CTA H [...] vibration sensation throughout. Cerebellar: Able to do [id number]-sc-vxtk bilaterally; normal coordination Gait and station: Deferred [...] Full Pat Hawk MD PGY-3 Neurology Resident [facility] Staffed with: Dr. Kovacs This patient is being followed by the Neurology Resident service. Contact attending directly during these hours: Sunday to 7:30-8:30 A.M. to Sunday 12-1:00 p.m. Primary Neurology service: [phone] Consult neurology service: [phone] Resident Stroke Service: [phone] If the patient belongs to the Stroke [...] from the original note were not included. [facility] Neurology General Neurology Primary Progress Note Primary Neurology service: [phone] Chief Complaint: Headache and right-sided weakness Interval [...] involving body then returned to ED in [place]. CTH unremarkable, MRI brain with findings suggestive [...] 300-3,500 Units/hr, Last Rate: 1,100 Units/hr (02/02/24 1853) sodium chloride 0.9 %, 20 mL/hr, Last [...] VII: right facial droop with forehead involvement (Lopez's [...] and temperature throughout. Cerebellar: Able to do pujnre-zq-qthh bilaterally; normal coordination Gait and station: Deferred [...] to Sunday 12-1:00 p.m. Primary Neurology service: [phone] Consult neurology service: [phone] Resident Stroke Service: [phone] If the patient belongs to the Stroke [...] from the original note were not included. [facility] Neurology General Neurology Primary Progress Note Primary Neurology service: [phone] Chief Complaint: Headache and right-sided weakness Interval [...] involving body then returned to ED in [place]. 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 CTA H [...] and temperature throughout. Cerebellar: Able to do rfwgsw-ve-cqho bilaterally; normal coordination Gait and station: Deferred [...] Disposition likely home Code status Full Luis MD Isaura Neurology Resident, [facility] [[email or web address]] Please contact via secure chat Staffed with: (Dr. Kovacs) This patient is being followed by the Neurology Resident service. Contact attending directly during these hours: Sunday to 7:30-8:30 A.M. to Sunday 12-1:00 p.m. Primary Neurology service: [phone] Consult neurology service: [phone] Resident Stroke Service: [phone] If the patient belongs to the Stroke [...] from the original note were not included. [facility] Neurology General Neurology Primary Progress Note Primary Neurology service: [phone] Chief Complaint: Interval History: Blanca Rudolph is [...] involving body then returned to ED in [place]. CTH unremarkable, MRI brain with findings suggestive [...] and temperature throughout. Cerebellar: Able to do srrcdk-az-odia bilaterally; normal coordination Gait and station: Deferred [...] Full Pat Hawk MD PGY-3 Neurology Resident [facility] 02/01/24 Staffed with: (Dr. Bray) This patient is being followed by the Neurology Resident service. Contact attending directly during these hours: Sunday to 7:30-8:30 A.M. to Sunday 12-1:00 p.m. Primary Neurology service: [phone] Consult neurology service: [phone] Resident Stroke Service: [phone] If the patient belongs to the Stroke [...] tolerate the procedure. documented in this encounter [facility] 02-03-2024 Plan of care note Problem: Pain Goal: Patient goal is pain score less than 4, able to rest, and participant in treatment plan as appropriate Description: INTERVENTIONS: 1. Encourage patient or legal textile machinery sales representative to report early pain and ask [...] per policy 9. Teach patient or legal textile machinery sales representative interventions for comforting Outcome: Progressing Note: [...] at the bedside 7. Instruct patient/ patient textile machinery sales representative about use of safety devices 8. Include patient/ patient textile machinery sales representative in decisions related to safety Outcome: Progressing Note: Evaluation of progress towards goal: Patient free from injury; bed to low position; skid free socks applied; call light in reach Problem: Knowledge Deficit Goal: Patient/patient textile machinery sales representative demonstrates understanding of disease process, treatment [...] goal: Patient verbalizes understanding of discharge plans [facility] 02-03-2024 Plan of care note Problem: Pain Goal: Patient goal is pain score less than 4, able to rest, and participant in treatment plan as appropriate Description: INTERVENTIONS: 1. Encourage patient or legal textile machinery sales representative to report early pain and ask [...] per policy 9. Teach patient or legal textile machinery sales representative interventions for comforting Outcome: Progressing Note: [...] at the bedside 7. Instruct patient/ patient textile machinery sales representative about use of safety devices 8. Include patient/ patient textile machinery sales representative in decisions related to safety Outcome: [...] hygiene technique 7. Identify and instruct patient/patient textile machinery sales representative in use of appropriate isolation precautions for identified infection/symptoms 8. Provide and discuss with patient/patient textile machinery sales representative on educational MDRO sheet 9. Encourage and monitor nutritional status daily and consult railway track plant operator if indicated 10. Implement neutropenic guidelines as needed 11. Review exposure to history of communicable disease and recent travel history on admission 12. Encourage annual influenza vaccine 13. Encourage pneumonia vaccine Outcome: Progressing Note: Evaluation of progress towards goal: Patient afebrile, no s/s of infection noted at this time Problem: Knowledge Deficit Goal: Patient/patient textile machinery sales representative demonstrates understanding of disease process, treatment [...] be free from fall Description: Interventions: 1. Elim to environment 2. Hourly rounds addressing the [...] non-skid footwear 11. Teach patient and patient textile machinery sales representative to maintain environment for safety and engage in all aspects of fall prevention program Outcome: Progressing Note: Evaluation of progress towards goal: Patient remains free from falls at this time, hourly rounding maintained [facility] [employer] [facility] 02-02-2024 Plan of care note Problem: Pain Goal: Patient goal is pain score less than 4, able to rest, and participant in treatment plan as appropriate Description: INTERVENTIONS: 1. Encourage patient or legal textile machinery sales representative to report early pain and ask [...] per policy 9. Teach patient or legal textile machinery sales representative interventions for comforting Outcome: Progressing Note: [...] at the bedside 7. Instruct patient/ patient textile machinery sales representative about use of safety devices 8. Include patient/ patient textile machinery sales representative in decisions related to safety Outcome: [...] hygiene technique 7. Identify and instruct patient/patient textile machinery sales representative in use of appropriate isolation precautions for identified infection/symptoms 8. Provide and discuss with patient/patient textile machinery sales representative on educational MDRO sheet 9. Encourage and monitor nutritional status daily and consult railway track plant operator if indicated 10. Implement neutropenic guidelines as needed 11. Review exposure to history of communicable disease and recent travel history on admission 12. Encourage annual influenza vaccine 13. Encourage pneumonia vaccine Outcome: Progressing Note: Evaluation of progress towards goal: continue antibiotics, monitor labs. Problem: Knowledge Deficit Goal: Patient/patient textile machinery sales representative demonstrates understanding of disease process, treatment [...] of 0 - 24 or indicated by [facility] Assessment Goal: Patient should be free from fall Description: Interventions: 1. Elim to environment 2. Hourly rounds addressing the [...] non-skid footwear 11. Teach patient and patient textile machinery sales representative to maintain environment for safety and engage in all aspects of fall prevention program Outcome: Progressing Note: Evaluation of progress towards goal: patient is fall risk, no falls this shift. Continue to monitor [facility] 02-02-2024 Plan of care note Problem: Pain Goal: Patient goal is pain score less than 4, able to rest, and participant in treatment plan as appropriate Description: INTERVENTIONS: 1. Encourage patient or legal textile machinery sales representative to report early pain and ask [...] per policy 9. Teach patient or legal textile machinery sales representative interventions for comforting Outcome: Progressing Note: [...] at the bedside 7. Instruct patient/ patient textile machinery sales representative about use of safety devices 8. Include patient/ patient textile machinery sales representative in decisions related to safety Outcome: [...] hygiene technique 7. Identify and instruct patient/patient textile machinery sales representative in use of appropriate isolation precautions for identified infection/symptoms 8. Provide and discuss with patient/patient textile machinery sales representative on educational MDRO sheet 9. Encourage and monitor nutritional status daily and consult railway track plant operator if indicated 10. Implement neutropenic guidelines as needed 11. Review exposure to history of communicable disease and recent travel history on admission 12. Encourage annual influenza vaccine 13. Encourage pneumonia vaccine Outcome: Progressing Note: Evaluation of progress towards goal: Patient will remain free from infection until the end of the shift. Problem: Knowledge Deficit Goal: Patient/patient textile machinery sales representative demonstrates understanding of disease process, treatment [...] discharge planning process 5. Communicate referral to nurses educator as appropriate 6. Communicate referral to railway track plant operator as appropriate 7. Collaborate with case management/social work lecturer for discharge needs Outcome: Progressing Note: Evaluation of progress towards goal: Patients discharge needs will be assessed before the end of the shift. Problem: Moderate - High Risk Fall Score Description: Mckeon Fall Score of =/> 25 or indicated by [facility] Assessment Goal: Patient should be free from fall Description: Interventions: 1. Elim to environment 2. Hourly rounds addressing the [...] non-skid footwear 11. Teach patient and patient textile machinery sales representative to maintain environment for safety and [...] (cane, walker) within reach 19. Request patient textile machinery sales representative bring adaptive equipment/mobility aids from home or obtain and provide as needed 20. Consult pharmacy regarding effects of med's affecting mobility, cognition, and alternatives 21. Obtain physician order for PT if risk factors associated with mobility are present 22. Obtain physician order for OT as appropriate 23. Utilize diversional activities 24. Educate patient and patient textile machinery sales representative how to maintain a safe environment during visitation times (notify nurse prior to leaving bedside) 25. Consider appropriateness of medical or non-medical receptionist biller 26. Set up voiding schedule as appropriate (every 2 hours) Outcome: Progressing Note: Evaluation of progress towards goal: Patient will remain free from falls until the end of the shift. [facility] 02-01-2024 Plan of care note Problem: Pain Goal: Patient goal is pain score less than 4, able to rest, and participant in treatment plan as appropriate Description: INTERVENTIONS: 1. Encourage patient or legal textile machinery sales representative to report early pain and ask [...] per policy 9. Teach patient or legal textile machinery sales representative interventions for comforting Outcome: Progressing Note: [...] at the bedside 7. Instruct patient/ patient textile machinery sales representative about use of safety devices 8. Include patient/ patient textile machinery sales representative in decisions related to safety Outcome: [...] hygiene technique 7. Identify and instruct patient/patient textile machinery sales representative in use of appropriate isolation precautions for identified infection/symptoms 8. Provide and discuss with patient/patient textile machinery sales representative on educational MDRO sheet 9. Encourage and monitor nutritional status daily and consult railway track plant operator if indicated 10. Implement neutropenic guidelines as needed 11. Review exposure to history of communicable disease and recent travel history on admission 12. Encourage annual influenza vaccine 13. Encourage pneumonia vaccine Outcome: Progressing Note: Evaluation of progress towards goal: No s/s of infection at this time. Afebrile. Will continue to monitor Problem: Knowledge Deficit Goal: Patient/patient textile machinery sales representative demonstrates understanding of disease process, treatment [...] of 0 - 24 or indicated by [facility] Assessment Goal: Patient should be free from fall Description: Interventions: 1. Elim to environment 2. Hourly rounds addressing the [...] non-skid footwear 11. Teach patient and patient textile machinery sales representative to maintain environment for safety and engage in all aspects of fall prevention program Outcome: Progressing Note: Evaluation of progress towards goal: patient is fall risk, no falls this shift. Continue to monitor [facility] 02-01-2024 Miscellaneous Notes Contract: TRA re Lumbar Punctue Requesting help with this in the AM Stating no need for callback Left Message for Dr Frederick Marte to call [facility] documented in this encounter [facility] 02-01-2024 Telephone encounter Note Contract: TRA re Lumbar Punctue Requesting help with this in the AM Stating no need for callback [facility] 02-01-2024 Telephone encounter Note Left Message for Dr Frederick Marte to call [facility] 02-01-2024 Procedure note Procedure Note Date: 02/01/2024 [...] the procedure. Luis Delarosa MD Neurology Resident, [facility] [[email or web address]] Please contact via secure chat Associated attDiogo Webb MD - 02/03/2024 9:17 PM EDT Attested. [facility] 02-01-2024 Procedure note Procedure Note Date: 02/01/2024 [...] the procedure. Luis Delarosa MD Neurology Resident, [facility] [[email or web address]] Please contact via secure chat Associated attestation - Diogo Bray MD - 02/03/2024 9:17 PM EDT Attested. documented in this encounter [facility] 02-01-2024 Plan of care note Problem: Pain Goal: Patient goal is pain score less than 4, able to rest, and participant in treatment plan as appropriate Description: INTERVENTIONS: 1. Encourage patient or legal textile machinery sales representative to report early pain and ask [...] per policy 9. Teach patient or legal textile machinery sales representative interventions for comforting Outcome: Progressing Note: [...] at the bedside 7. Instruct patient/ patient textile machinery sales representative about use of safety devices 8. Include patient/ patient textile machinery sales representative in decisions related to safety Outcome: [...] hygiene technique 7. Identify and instruct patient/patient textile machinery sales representative in use of appropriate isolation precautions for identified infection/symptoms 8. Provide and discuss with patient/patient textile machinery sales representative on educational MDRO sheet 9. Encourage and monitor nutritional status daily and consult railway track plant operator if indicated 10. 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 Communicate referral to nurses educator as appropriate 6. Communicate referral to railway track plant operator as appropriate 7. Collaborate with case management/social work lecturer for discharge needs Outcome: Progressing Note: Evaluation of progress towards goal: Problem: Moderate - High Risk Fall Score Description: Mckeon Fall Score of =/> 25 or indicated by [facility] Assessment Goal: Patient should be free from fall Description: Interventions: 1. Elim to environment 2. Hourly rounds addressing the [...] non-skid footwear 11. Teach patient and patient textile machinery sales representative to maintain environment for safety and [...] (cane, walker) within reach 19. Request patient textile machinery sales representative bring adaptive equipment/mobility aids from home or obtain and provide as needed 20. Consult pharmacy regarding effects of med's affecting mobility, cognition, and alternatives 21. Obtain physician order for PT if risk factors associated with mobility are present 22. Obtain physician order for OT as appropriate 23. Utilize diversional activities 24. Educate patient and patient textile machinery sales representative how to maintain a safe environment during visitation times (notify nurse prior to leaving bedside) 25. Consider appropriateness of medical or non-medical receptionist biller 26. Set up voiding schedule as appropriate (every 2 hours) Outcome: Progressing Note: Evaluation of progress towards goal: Problem: Low Risk Fall Score Description: Mckeon Fall Score of 0 - 24 or indicated by [facility] Assessment Goal: Patient should be free from fall Description: Interventions: 1. Elim to environment 2. Hourly rounds addressing the [...] non-skid footwear 11. Teach patient and patient textile machinery sales representative to maintain environment for safety and engage in all aspects of fall prevention program Outcome: Progressing Note: Evaluation of progress towards goal: Elim to environment Hourly rounds addressing the 4 P's Clear area of hazards Place equipment within reach Maintain bed in lowest position Lock wheels on bed/wheelchair [facility] 01-31-2024 Plan of care note Problem: Pain Goal: Patient goal is pain score less than 4, able to rest, and participant in treatment plan as appropriate Description: INTERVENTIONS: 1. Encourage patient or legal textile machinery sales representative to report early pain and ask [...] per policy 9. Teach patient or legal textile machinery sales representative interventions for comforting Outcome: Progressing Note: [...] at the bedside 7. Instruct patient/ patient textile machinery sales representative about use of safety devices 8. Include patient/ patient textile machinery sales representative in decisions related to safety Outcome: Progressing Note: Evaluation of progress towards goal: patient educated on use of call light for assistance. Non slip socks on for safety. Call light within reach. [facility] 01-31-2024 History and physical note Images from the original note were not included. [facility] Neurology General Neurology Primary Admission Note Primary Neurology service: [phone] Chief Complaint: History: Blanca Rudolph is a [...] neck pressure pain radiating to her right church without exacerbating or remitting factors and associated [...] appointment until February so she returned to [place] ED. She had MRI brain done which showed subtle optic nerve sheath engorgement, flattened pituitary and possible DWI changes in superior convexities versus bone artifact on personal review. She received Tylenol and morphine for headache without relief. She was then transferred to [facility] for need for possible LP [...] of severe pre-eclampsia 04/04/2019 Bilateral pulmonary embolism ([facility] October 2019 11/08/2019 History of DVT (deep vein thrombosis) 02/03/2020 LSIL Pap 02/04/2020 Delivery of by section 06/02/2020 Abdominal hematoma 06/09/2020 Abdominal pain 06/11/2020 Blood loss anemia 06/23/2020 Nephrotic syndrome 11/22/2022 Acute kidney injury ([facility]) 11/28/2022 SLE (systemic lupus erythematosus) ([facility]) 11/28/2022 Positive serology for syphilis 11/28/2022 Vitamin D deficiency 11/28/2022 Stage IV lupus nephritis (WHO) ([facility]) 12/20/2022 Encounter for technician terminal and repeater use of mycophenolate mofetil 12/20/2022 [facility] systemic steroid user 12/20/2022 Fibromyalgia 01/23/2023 Menorrhagia [...] 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 Left ventricular hypertrophy 12/03/2023 [facility] current use of cannabis 01/31/2024 Low grade squamous intraepithelial lesion (LGSIL) on cervicovaginal cytologic smear 12/06/2022 Microscopic hematuria 07/18/2023 Nausea 01/31/2024 Pelvic pain in female 07/09/2023 Type II diabetes mellitus (CMS-HCC) 01/31/2024 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 Hypokalemia 01/31/2024 Resolved [...] Past Medical History: Diagnosis Date Angina pectoris (CMS-HCC) Depression DVT (deep vein thrombosis) in Heart murmur History of gestational diabetes History of pre-eclampsia History of delivery History of twin in prior Hypertension Morbid obesity ([facility]) PPH ( hemorrhage) Pulmonary emboli ([facility]) 10/2019 Family History: Family History Problem Relation [...] min Stress: No Stress Concern Present (12/18/2022) [employer] [place] [employer] - Occupational Stress Questionnaire Feeling of Stress : Only a little Social Connections: Moderately Integrated (12/18/2022) Social Connection and Isolation Panel [NHANES] Frequency of Communication with Friends and Family: More than three times a week Frequency of Social Gatherings with Friends and Family: More than three times a week Attends Yazidi Services: More than 4 times per year [...] pinprick sensation throughout. Cerebellar: Able to do [id number] bilaterally; normal coordination Gait and station: Deferred [...] Full Pat Hawk MD PGY-3 Neurology Resident [facility] 01/31/24 Staffed with: (Dr. Bray) This patient is being followed by the Neurology Resident service. Contact attending directly during these hours: Sunday to 7:30-8:30 A.M. to Sunday 12-1:00 p.m. Primary Neurology service: [phone] Consult neurology service: [phone] Resident Stroke Service: [phone] If the patient belongs to the Stroke YUSEF service please contact the Stroke YUSEF directly. Associated attestation - Diogo Bray MD - 01/31/2024 8:26 PM EDT Case discussed with me over the phone. [employer] 01-31-2024 History and physical note Images from the original note were not included. [facility] Neurology General Neurology Primary Admission Note Primary Neurology service: [phone] Chief Complaint: History: Blanca Rudolph is a [...] neck pressure pain radiating to her right church without exacerbating or remitting factors and associated [...] appointment until February so she returned to [place] ED. She had MRI brain done which showed subtle optic nerve sheath engorgement, flattened pituitary and possible DWI changes in superior convexities versus bone artifact on personal review. She received Tylenol and morphine for headache without relief. She was then transferred to [facility] for need for possible LP [...] 06/23/2020 Nephrotic syndrome 11/22/2022 Acute kidney injury ([facility]) 11/28/2022 SLE (systemic lupus erythematosus) ([facility]) 11/28/2022 Positive serology for syphilis 11/28/2022 Vitamin D deficiency 11/28/2022 Stage IV lupus nephritis (WHO) ([facility]) 12/20/2022 Encounter for [facility]cf use of mycophenolate mofetil 12/20/2022 FPC systemic steroid user 12/20/2022 Fibromyalgia 01/23/2023 Menorrhagia [...] 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 Left ventricular hypertrophy 12/03/2023 technician terminal and repeater current use of cannabis 01/31/2024 Low grade squamous intraepithelial lesion (LGSIL) on cervicovaginal cytologic smear 12/06/2022 Microscopic hematuria 07/18/2023 Nausea 01/31/2024 Pelvic pain in female 07/09/2023 Type II diabetes mellitus ([facility]) 01/31/2024 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 Hypokalemia 01/31/2024 Resolved [...] Past Medical History: Diagnosis Date Angina pectoris ([facility]) Depression DVT (deep vein thrombosis) in Heart murmur History of gestational diabetes History of pre-eclampsia History of delivery History of twin in prior Hypertension Morbid obesity ([facility]) PPH ( hemorrhage) Pulmonary emboli ([facility]) 10/2019 Family History: Family History Problem Relation [...] min Stress: No Stress Concern Present (12/18/2022) [employer] [place] [employer] - Occupational Stress Questionnaire Feeling of Stress : Only a little Social Connections: Moderately Integrated (12/18/2022) Social Connection and Isolation Panel [NHANES] Frequency of Communication with Friends and Family: More than three times a week Frequency of Social Gatherings with Friends and Family: More than three times a week Attends Yazidi Services: More than 4 times per year [...] pinprick sensation throughout. Cerebellar: Able to do [id number] bilaterally; normal coordination Gait and station: Deferred [...] Full Pat Hawk MD PGY-3 Neurology Resident [facility] 01/31/24 Staffed with: (Dr. Bray) This patient is being followed by the Neurology Resident service. Contact attending directly during these hours: Sunday to 7:30-8:30 A.M. to Sunday 12-1:00 p.m. Primary Neurology service: [phone] Consult neurology service: [phone] Resident Stroke Service: [phone] If the patient belongs to the Stroke YUSEF service please contact the Stroke YUSEF directly. Associated attestation - Beata, Diogo Bess MD - 01/31/2024 8:26 PM EDT Case discussed with me over the phone. documented in this encounter [employer] 01-31-2024 Note Patient Education Caregiving Antibiotic Medicine, [...] have any o (more content not included)... [facility] 01-30-2024 History of Present illness Narrative Patient ID: Blanca Rudolph is a 33 y.o. female. Chief Complaint: Chief Complaint Patient presents with Tinnitus History: Blanca Rudolph is a pleasant 33 y.o. female who presents today for tinnitus. Patient was referred by Dr. Roula MD, Otolaryngology. Patient admits to a ticking [...] Date ADD (attention deficit disorder) Angina pectoris ([facility]) Depression DVT (deep vein thrombosis) in Heart murmur History of gestational diabetes History of pre-eclampsia History of delivery History of twin in prior Hypertension Morbid obesity ([facility]) Nephrotic syndrome 11/22/2022 PPH ( hemorrhage) Pulmonary emboli ([facility]) 10/2019 Request for sterilization 02/03/2020 Signed 02/03/2020 [place] Resident SLE (systemic lupus erythematosus) ([facility]) 11/28/2022 PAST SURGICAL HISTORY Past Surgical History: Procedure Laterality Date REPEAT N/A 04/03/2019 Performed by Aquiles Abbott MD at [facility] OR REPEAT TUBAL LIGATION N/A 06/02/2020 Performed by John Person MD at [facility] OR D AND C SUCTION N/A 03/18/2018 Performed by Kat Jeffers MD at [facility] SOCIAL HISTORY Social History Tobacco Use [...] neurology for lopez's palsy and headaches. - [place] [employer] handout issued. - Follow-up as needed. [...] MA 01/30/24 1021 [facility] 01-30-2024 Instructions Devon Black - 01/30/2024 10:00 AM EDT - Microscopic examination was completed in office today. The ears appear generally healthy. - I recommended to continue following up with neurology for lopez's palsy and headaches. - Follow-up as needed. I recommend use of oil eardrops for management of itching and debris buildup, 2-3 eardrops 2-3 times per week. [place] oil or sweet oil can be used, such eardrops are often available at [facility] pharmacies. [facility] Miscellaneous Notes Patient stated there has been times where she has been dropping things. Patient feels she needs to be seen sooner than MARCH 14. Patient stated she went back to ED and was advised to see patient sooner. Last appt: 09/07/23. Patient is on prednisone and was advised to have gasoline engine assembler to bump up the Prednisone. Want to [...] same issue and imagining was completed. Patient [phone] stated that they spoke with eye doctor and went to ear doctor and they were advised that Lopez's Palsy is to be treated by Arianna Alexander's office. ENT stated that patient has taken all medication for ear infection and does not think that patient's symptoms are associated with their ears. Patient is currently admitted to the hospital and is under Neurological care. - [facility] 01-28-2024 Telephone encounter Note Patient stated there has been times where she has been dropping things. Patient feels she needs to be seen sooner than MARCH 14. Patient stated she went back to ED and was advised to see patient sooner. Last appt: 09/07/23. Patient is on prednisone and was advised to have gasoline engine assembler to bump up the Prednisone. Want to make sure this is ok w/ NEUROLOGY. [facility] 01-28-[facility]24 Telephone encounter Note Please advise [facility] 01-28-2024 Telephone encounter Note I am okay with Rheumatology bumping up Prednisone as they see fit. I am unsure what is meant by dropping things and how that may relate to needing a sooner appointment. Please clarify. Thanks. - [facility] 01-28-2024 Telephone encounter Note Could you please call patient give above message and get clarification [facility] 01-28-2024 Telephone encounter Note RN contacted patient to clarify original message. Patient stated since the diagnosis of bells palsy she has noticed an increase in right sided weakness. It is not constant. She believes it is nerve related. Patient was reminded of appointment on 03/14/24. Patient was seen in the ER yesterday for same issue and imagining was completed. [facility] 01-28-2024 Telephone encounter Note Patient [phone] stated that they spoke with eye doctor and went to ear doctor and they were advised that Lopez's Palsy is to be treated by Arianna Alexander's office. ENT stated that patient has taken all medication for ear infection and does not think that patient's symptoms are associated with their ears. [facility] 01-28-2024 Telephone encounter Note Patient is currently admitted to the hospital and is under Neurological care. - [facility] 01-28-2024 Miscellaneous Notes Patient was in the ER and was put on 60 mg of prednisone for 5 days for per chief complaint of arm pain and the ER wants her to follow up to see if her regular prednisone needs to be adjusted at all. Was done with a 60 mg needs to go back on 7.5 mg prednisone Called patient and told her to do the directions Dr Calle had prescribed on the prednisone. documented in this encounter [facility] 01-28-2024 Telephone encounter Note Patient was in the ER and was put on 60 mg of prednisone for 5 days for per chief complaint of arm pain and the ER wants her to follow up to see if her regular prednisone needs to be adjusted at all. [facility] 01-28-2024 Telephone encounter Note Was done with a 60 mg needs to go back on 7.5 mg prednisone [facility] 01-28-2024 Telephone encounter Note Called patient and told her to do the directions Dr Calle had prescribed on the prednisone. [facility] 01-25-2024 Miscellaneous Notes RN received phone call from patient regarding recent ER trips. Patient presented to ER yesterday for ear pain and was diagnosed with an ear infection. Patient returned to the ER last night and was then diagnosed with [place] Palsy. Patient has been prescribed an antibiotic and prednisone. Patient has not picked up medications yet. She reports that her facial droop has worsened. Patient was urged to contact [facility] for prednisone script and begin that as soon as possible. Patient voiced understanding. Patient also requesting guidance for pain she currently has at back of neck. She was instructed to take tylenol and/or motrin and begin antibiotic. Patient voiced understanding. [facility] 01-25-2024 Telephone encounter Note RN received phone call from patient regarding recent ER trips. Patient presented to ER yesterday for ear pain and was diagnosed with an ear infection. Patient returned to the ER last night and was then diagnosed with [place] Palsy. Patient has been prescribed an antibiotic and prednisone. Patient has not picked up medications yet. She reports that her facial droop has worsened. Patient was urged to contact [facility] for prednisone script and begin that as soon as possible. Patient voiced understanding. Patient also requesting guidance for pain she currently has at back of neck. She was instructed to take tylenol and/or motrin and begin antibiotic. Patient voiced understanding. [facility] 01-17-2024 History of Present illness Narrative Images from the original note were not included. [id number] [id number] Date of Service: 01/17/2024 Subjective: Blanca Rudolph is a 33 y.o. female who presents today for evaluation Lupus. Patient is seen at the request of RICKIE CHAN. This is a follow-up visit with this patient who is 32-year-old female patient presenting today as an established patient for follow-up of lupus nephritis was seen 1st time on 11/20/2022 last time the clinic was 08/30/2023 Patient illness started on with history of [...] white BC, serum creatinine 1.34 mg/dL was [id number], , liver enzymes normal as well as CBC Started on September 19, 2023 voclosporin 23.7 mg orally twice daily Current medications including CellCept 3 g daily as well as prednisone 20 mg daily. Lab test 6 08/18/2023 serum creatinine 1.7, CRP and ESR normal, urinalysis moderate hemoglobin,, PCR no proteinuria, CBC hemoglobin 10l Recent lab 2023 urine PCR normal, serum creatinine 1.44 mg/dL, complements normal, both ESR CRP normal, CBC normal Today 01/17/2024 patient said that she has been doing extremely well with no significant symptoms. Review of Systems: Review of Systems Constitutional: Negative. HENT: Negative. Gastrointestinal: Negative. Musculoskeletal: Negative. Skin: Negative. Current Outpatient [...] by mouth in the morning. amitriptyline (ELAVIL) 50 mg tablet Take 1 tablet (50 mg total) by mouth nightly. Take1 tablets (50 mg) nightly 30 tablet 5 aspirin 81 mg Take 1 tablet (81 mg total) by mouth in the morning. blood pressure monitor kit TAKE B/P 2-3 TIMES PER WEEK 1 each 0 bumetanide (BUMEX) 2 mg tablet take 1 and 1/2 tablets by mouth twice a day before meals 90 tablet 0 carvediloL (COREG) 6.25 mg [...] 3 tab twice daily 180 tablet 3 potassium chloride (KLOR-CON M 20) 20 MEQ CR tablet Take 1 tablet (20 mEq total) by mouth in the morning and 1 tablet (20 mEq total) before bedtime. 180 tablet 3 predniSONE (DELTASONE) 5 mg tablet 1.5 TAB FOR 2 WEEKS,THEN 1 TAB DAILY 45 tablet 3 PROVERA 10 mg tablet Take 1 tablet (10 mg total) by mouth in the morning. rivaroxaban (XARELTO) 20 mg tablet tablet Take 1 tablet (20 mg total) by mouth in the morning. 90 tablet 3 rizatriptan (MAXALT) 10 mg tablet Take 1 tablet just after onset of migraine. May repeat the dose after 2 hours if migraine persists. Max of 2 doses per 24 hours. 12 tablet 2 voclosporin 7.9 mg capsule Take 23.7 mg [...] Tender (ROSAS-28): -- Swollen (ROSAS-28): -- BP 128/74 Resp 18 Ht 172.7 cm (5' 7.99 ) Wt 122.5 kg (270 lb) BMI 41.06 kg/m : reviewed Labs and Imaging: reviewed and discussed with the patient during the visit.I Lab Results Component Value Date WBC 6.9 01/01/2024 HGB 12.4 01/01/2024 HCT 37.7 01/01/2024 MCV 91 01/01/2024 CRP 0.3 01/01/2024 C3 138 01/01/2024 C4 26 01/01/2024 GFR >60 12/07/2021 GFR >60 12/07/2021 AST 15 01/01/2024 AST 22 06/03/2023 Imaging: Assessment and Plan: Blanca Rudolph is a 33 y.o. female patient with: 1. Systemic lupus erythematosus, unspecified SLE type, unspecified organ involvement status ([facility] - mycophenolate (CELLCEPT) 500 mg tablet; 3 tab twice daily Dispense: 180 tablet; Refill: 3 - predniSONE (DELTASONE) 5 mg tablet; 1.5 TAB FOR 2 WEEKS,THEN 1 TAB DAILY Dispense: 45 tablet; Refill: 3 - X-ray hips bilateral with or without pelvis 3-4 views; Future - Erythrocyte Sedimentation Rate (ESR); Future - C-reactive protein; Future - Comprehensive metabolic panel; Future - CBC auto differential; Future 2. Stage IV lupus nephritis (WHO) ([facility]) - mycophenolate (CELLCEPT) 500 mg tablet; 3 tab twice daily Dispense: 180 tablet; Refill: 3 - predniSONE (DELTASONE) 5 mg tablet; 1.5 TAB FOR 2 WEEKS,THEN 1 TAB DAILY Dispense: 45 tablet; Refill: 3 - X-ray hips bilateral with or without pelvis 3-4 views; Future - Erythrocyte Sedimentation Rate (ESR); Future - C-reactive protein; Future - Comprehensive metabolic panel; Future - CBC auto differential; Future - Urinalysis; Future - Protein creat ratio; Future 3. Fibromyalgia - amitriptyline (ELAVIL) 50 mg tablet; Take 1 tablet (50 mg total) by mouth nightly. Take1 tablets (50 mg) nightly Dispense: 30 tablet; Refill: 5 4. Encounter for chcf use of mycophenolate mofetil - mycophenolate (CELLCEPT) 500 mg tablet; 3 tab twice daily Dispense: 180 tablet; Refill: 3 - Comprehensive metabolic panel; Future - CBC auto differential; Future At this point patient has been doing fairly well and tolerating voclosporin. Meanwhile her serum creatinine still 1.44 mg/dL, urine protein urea now is negative. Complements normal Will reduce prednisone to 5 mg. Keep mycophenolate and voclosprin same dose Advised the patient for tight control of blood pressure lupus nephritis stage IV based on kidney [...] or corrected. Thank you for your understanding. [facility] Rheumatology Dr. Sherman Calle MD [address], [address] [place] [address] Office: [phone] documented in this encounter [facility] 01-09-2024 Miscellaneous Notes Pt called stating her BP today at her infectious disease office was 148/98. Pt states she does not have a proper blood pressure cuff at home. Pt would like our office to order a blood pressure cuff. Does pt need to take B/P BID for us? Ok to give order for B/P machine/ BP at most twice to three times a week at same time.OK for BP cuff. NIRU XIONG B/P kit faxed to pharmacy documented in this encounter [facility] 01-09-2024 Telephone encounter Note Pt called stating her BP today at her infectious disease office was 148/98. Pt states she does not have a proper blood pressure cuff at home. Pt would like our office to order a blood pressure cuff. [facility] 01-09-2024 Telephone encounter Note Does pt need to take B/P BID for us? Ok to give order for B/P machine/ [facility] 01-09-2024 Telephone encounter Note BP at most twice to three times a week at same time.OK for BP cuff. NIRU X[employer]G [facility] 01-09-2024 Telephone encounter Note B/P kit faxed to pharmacy [facility] 01-09-2024 Note 01/09/2024 Subjective Patient ID: Blanca Rudolph is a 33 y.o. female who presents for Exposure to HIV and Med Management. HPI: This is a [id number]-female patient on Descovy since November 2022 for preexposure prophylaxis (PrEP) to prevent HIV infection. Patient is presenting to [facility] for a 3 months follow-up visit. Patient reports tolerance and compliance to ART without missed doses and denies any side effect. Of note, the patient was found to have a RPR titer of 1:1024 on 11/22/2022 during her autoimmune work-up at [facility] for SLE and nephrotic syndrome.Patient is established [...] SLE (systemic lupus erythematosus) (CMS/HCC) Pulmonary embolism ([facility]) Positive serology for syphilis On anticoagulant therapy Nephrotic syndrome Menorrhagia with irregular cycle Low grade squamous intraepithelial lesion (LGSIL) on cervicovaginal cytologic smear Low grade squamous intraepithelial lesion (LGSIL) on cervical Pap smear History of severe pre-eclampsia History of DVT (deep vein thrombosis) Fibromyalgia Encounter for technician terminal and repeater use of mycophenolate mofetil Delivery of by [...] Socioeconomic History Marital (more content not included)... [facility] 01-03-2024 History of Present illness Narrative Images from the original note were not included. Date of Service: 01/01/24 PCP: RICKIE CHAN History of Present Illness Blanca Rudolph is a 33 y.o. 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 Calle, returning in nephrologic follow-up. When last seen in the office in May of 2023 the BUN was 25 the creatinine was 1.63. A urinalysis showed 100 mg/dL protein with a large amount of blood on dipstick exam. The urine protein creatinine ratio was 0.7 gram/gram on June 28, 2023. When seen in the office in June of 2023 she was converted to Coreg 6.25 mg po BID for management of her hypertension. Given her history of hypomagnesemia and the potential for interstitial nephritis she was taken off omeprazole and placed on an H2 edgar instead. (Pepcid) Laboratories of January 01, 2024 show sodium 143 potassium 3.8 chloride 103 total CO2 30 BUN 22 creatinine 1.44 calcium 8.8 albumin 3.7 EGFR 50 mL/min urine protein creatinine ratio was normal at 0.14 gram/gram magnesium was 1.6 phosphorus 3.125 hydroxy vitamin-D 44.5. A urinalysis was negative for protein negative for blood there were 5 red blood cells and 1 white blood cell per high-power field. Problem List Acute kidney injury and nephrotic [...] ventricular systolic function. No significant valvular dysfunction. Surgical, Family & Social History Surgical History: Past Surgical History: Procedure Laterality Date REPEAT N/A 04/03/2019 Performed by Aquiles Abbott MD at [facility] OR REPEAT TUBAL LIGATION N/A 06/02/2020 Performed by John Person MD at [facility] OR D AND C SUCTION N/A 03/18/2018 Performed by Kat Jeffers MD at [facility] Social History: Social History Socioeconomic History Marital status: Single Spouse name: Not on file Number of children: Not on file Years of education: Not on file Highest education level: Not on file Occupational History Not on file Tobacco Use Smoking status: Former Current packs/day: 0.00 Types: Cigarettes Quit date: 2020 Years since quittin.6 Smokeless tobacco: Never Vaping Use Vaping status: [...] at all Food Insecurity: No Food Insecurity (12/24/2023) Hunger Screening Food Insecurity - Worry: Never True Food Insecurity - Inability: Never True Transportation Needs: No Transportation Needs (06/19/2023) PRAPARE - Transportation Lack of Transportation (Medical): No Lack of Transportation (Non-Medical): No Physical Activity: Insufficiently Active (12/18/2022) Exercise Vital Sign Days of Exercise per Week: 7 days Minutes of Exercise per Session: 20 min Stress: No Stress Concern Present (12/18/2022) [employer] [place] [employer] - Occupational Stress Questionnaire Feeling of Stress : Only a little Social Connections: Moderately Integrated (12/18/2022) Social Connection and Isolation Panel [NHANES] Frequency of Communication with Friends and Family: More than three times a week Frequency of Social Gatherings with Friends and Family: More than three times a week Attends Yazidi Services: More than 4 times per year Active Member of Clubs or Organizations: Yes Attends Club or Organization Meetings: More than 4 times per year Marital Status: Never Interpersonal Safety: Unknown (07/06/2023) [facility] Humiliation, Afraid, Rape, and Kick questionnaire Fear of Current or Ex-Partner: No Emotionally Abused: Not on file Physically Abused: Not on file Sexually Abused: Not on file Housing Instability: Low Risk (06/19/2023) Housing Instability [...] morning. amitriptyline (ELAVIL) 25 mg tablet Take 2 tablets (50 mg) nightly 60 tablet 5 aspirin 81 mg Take 1 tablet (81 mg total) by mouth in the morning. bumetanide (BUMEX) 2 mg tablet take 1 and 1/2 tablets by mouth twice a day before meals 90 tablet 0 carvediloL (COREG) 6.25 mg [...] 3 tab twice daily 180 tablet 3 potassium chloride (KLOR-CON M 20) 20 MEQ CR tablet Take 1 tablet (20 mEq total) by mouth in the morning and 1 tablet (20 mEq total) before bedtime. 180 tablet 3 predniSONE (DELTASONE) 5 mg tablet 2 tab daily 60 tablet 3 PROVERA 10 mg tablet Take 1 tablet (10 mg total) by mouth in the morning. rivaroxaban (XARELTO) 20 mg tablet tablet Take 1 tablet (20 mg total) by mouth in the morning. 90 tablet 3 rizatriptan (MAXALT) 10 mg tablet Take 1 tablet just after onset of migraine. May repeat the dose after 2 hours if migraine persists. Max of 2 doses per 24 hours. 12 tablet 2 voclosporin 7.9 mg capsule Take 23.7 mg by mouth in the morning and 23.7 mg before bedtime. 60 capsule 3 No current facility-administered medications for this visit. Review of Systems Review of Systems Physical Exam Vital Signs: There were no vitals filed for this visit. BMI: There is no height or weight on file to calculate BMI. General appearance: alert in no apparent distress. [...] extremities Lymphatic: no cervical or axillary lymphadenopathy. Edema: Laboratory Studies Chemistry: Lab Results Component Value Date SODIUM 144 10/02/2023 SODIUM 135 08/22/2023 SODIUM 141 07/26/2023 SODIUM 140 06/28/2023 SODIUM 136 06/24/2023 K 3.7 10/02/2023 K 3.5 08/22/2023 K 3.4 (L) 07/26/2023 K 4.0 06/28/2023 K 3.9 06/24/2023 CL 103 10/02/2023 CL 96 (L) 08/22/2023 CL 100 07/26/2023 CL 99 06/28/2023 CL 102 06/24/2023 CO2 31 10/02/2023 CO2 31 08/22/2023 CO2 31 07/26/2023 CO2 33 (H) 06/28/2023 CO2 28 06/24/2023 ANIONGAP 10 10/02/2023 ANIONGAP 8 08/22/2023 ANIONGAP 10 07/26/2023 ANIONGAP 8 06/28/2023 ANIONGAP 6 06/24/2023 BUN 33 (H) 10/02/2023 BUN 38 (H) 08/22/2023 BUN 34 (H) 07/26/2023 BUN 25 (H) 06/28/2023 BUN 31 (H) 06/24/2023 CREATININE 1.71 (H) 10/02/2023 CREATININE 1.34 (H) 08/22/2023 CREATININE 1.54 (H) 08/22/2023 CREATININE 1.57 (H) 07/26/2023 CREATININE 1.63 (H) 06/28/2023 EGFR 41 (L) 10/02/2023 EGFR 54 (L) 08/22/2023 EGFR 46 (L) 08/22/2023 EGFR 45 (L) 07/26/2023 EGFR 43 (L) 06/28/2023 CALCIUM 8.9 10/02/2023 CALCIUM 8.2 (L) 08/22/2023 CALCIUM 8.9 07/26/2023 CALCIUM 8.6 06/28/2023 CALCIUM 8.4 (L) 06/24/2023 MG 1.8 06/28/2023 MG 1.8 06/19/2023 MG 1.8 06/14/2023 MG 1.9 06/03/2023 MG 1.8 01/15/2023 PHOSPHORUS 2.8 06/28/2023 PHOSPHORUS 3.1 06/14/2023 PHOSPHORUS 3.7 01/15/2023 PHOSPHORUS 2.7 12/20/2022 PHOSPHORUS 4.7 12/18/2022 IONIZEDCALC 4.3 (L) 12/04/2022 IONIZEDCALC 4.5 12/03/2022 IONIZEDCALC 4.5 12/02/2022 IONIZEDCALC 4.1 (L) 12/02/2022 IONIZEDCALC 4.3 (L) 12/01/2022 Lab Results Component Value Date TOTALPROTEI 6.5 10/02/2023 TOTALPROTEI 6.6 08/22/2023 ALBUMIN 3.9 10/02/2023 ALBUMIN 3.8 08/22/2023 AST 13 10/02/2023 AST 12 08/22/2023 ALT 9 10/02/2023 ALT 12 08/22/2023 BILIRUBIN Negative 12/24/2023 BILIRUBIN Negative 11/12/2023 ALKPHOS 44 10/02/2023 ALKPHOS 43 08/22/2023 Hematology: Lab Results Component Value Date WBC 7.8 10/02/2023 WBC 10.1 08/22/2023 HGB 10.0 (L) 10/02/2023 HGB 12.8 08/22/2023 HCT 29.5 (L) 10/02/2023 HCT 36.3 08/22/2023 PLT 322 10/02/2023 PLT 296 08/22/2023 Anemia Studies: Lab Results Component Value Date IRONSAT 29 11/22/2022 IRONSAT 40 03/01/2021 FERRITIN 317 (H) 11/22/2022 FERRITIN 94 03/01/2021 [id number] 512 11/22/2022 FOLATE >25.0 11/22/2022 Mineral and Bone Labs: Lab Results Component Value Date CALCIUM 8.9 10/02/2023 CALCIUM 8.2 (L) 08/22/2023 PHOSPHORUS 2.8 06/28/2023 PHOSPHORUS 3.1 06/14/2023 VITD25 29.0 (L) 06/28/2023 VITD25 24.0 (L) 06/14/2023 PTH 107 (H) 06/28/2023 PTH 80 06/14/2023 Urine Studies: Lab Results Component Value Date COLOR YELLOW 10/02/2023 TURBIDITY CLEAR 10/02/2023 SPECIFICGRA 1.020 12/24/2023 SPECIFICGRA 1.009 10/02/2023 NITRITE Negative 10/02/2023 PHURINE 6.0 10/02/2023 LEUKOCYTE Negative 12/24/2023 LEUKOCYTE Negative 10/02/2023 PROTEIN Negative 10/02/2023 KETONES Negative 10/02/2023 UROBILINOGEN 0.2 12/24/2023 UROBILINOGEN <1.1 10/02/2023 BLOODHGB MODERATE (A) 10/02/2023 Lab Results Component Value Date UPROCRTRAT 0.15 10/02/2023 UPROCRTRAT 0.36 (H) 08/22/2023 UPROCRTRAT 1.13 (H) 07/26/2023 UPROCRTRAT 0.70 (H) 06/28/2023 UPROCRTRAT 0.71 (H) 06/28/2023 MICROALBUR 482.9 (H) 11/22/2022 Immunology Profile Lab Results Component Value Date PROTELECTR SEE SEPARATE REPORT 11/22/2022 SEDRATE 6 10/02/2023 CRP 1.1 (H) 10/02/2023 ANASCREEN Negative 11/22/2022 C3 140 07/26/2023 C4 29 07/26/2023 ANCA See Below 11/22/2022 ANTIGLOMERU <0.2 11/22/2022 Lab Results Component Value Date HEPAIGM Non-Reactive 11/22/2022 HEPBIGM Negative 11/22/2022 Imaging Echocardiogram: Echo complete W/O contrast Result Date: 06/05/2023 Left Ventricle: There is mild increased wall thickness/hypertrophy. Systolic function is normal with an ejection fraction of 60-65%. IMPRESSION 1. 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 Also receiving atovaquone for PJP prophylaxis. Prednisone 10 mg po daily and CellCept 1500 mg po BID. Immunosuppressive therapy being managed by Dr. Calle/Rheumatology. 2. Hypertension: On Coreg 6.25 mg p.o. b.i.d. 3. History of GERD: On Pepcid 20 mg daily. 4. Bone/mineral metabolism: PTH level elevated at 71. 5. Volume status: Appears to be near euvolemic. PLAN 1. No change in current medications 2. She will return to this office in 6 months time for repeat evaluation. Her renal chemistries she will be reassessed at that time Thank you RICKIE CHAN for the opportunity to participate in the care of your patients! Please contact me at [phone] (Office) or [phone] (Answering service) with any questions. CHILO BAIN MD [facility] This note was created with the assistance of a speech-recognition program. Although the intention is to generate a document that actually reflects the content of the visit, no guarantees can be provided that every mistake has been identified and corrected by editing. documented in this encounter [facility] 12-28-2023 Miscellaneous Notes Left voicemail for patient to return call to confirm upcoming appointment and Informed patient lab work need completed prior to uncoming appointment documented in this encounter [facility] 12-28-2023 Telephone encounter Note Left voicemail for patient to return call to confirm upcoming appointment and Informed patient lab work need completed prior to uncoming appointment [facility] 12-24-2023 History of Present illness Narrative Images [...] , Rfl: cholecalciferol (Vitamin D-3) 1.25 MG (33397 UT) capsule, Take 50,000 Units by mouth [...] , Rfl: ergocalciferol (Vitamin D2) 1.25 MG (82821 UT) capsule, , Disp: , Rfl: etonogestrel-eluting [...] 1 each, 1 each, Implant, Once, Mayco Albright, DO Levonorgestrel intrauterine device 52 mg, 52 mg, Intrauterine, Continuous, Mayco Jose Ramon, DO, 52 mg at 09/26/23 1343 Allergies [...] or corrected. Thank you for your understanding. Arianna De Luna DPM documented in this encounter [facility] 12-20-2023 Miscellaneous Notes PT called to request a refill for Potassium and the order is going to tomorrow and she is having an appt on Dec. When she can request for a new order. documented in this encounter [facility] 12-20-2023 Telephone encounter Note PT called to request a refill for Potassium and the order is going to tomorrow and she is having an appt on Dec 5h. When she can request for a new order. [facility] 12-14-2023 History of Present illness Narrative I spoke to the patient. The MRI of the brain and IAC's is normal. She is scheduled to see Dr. Cornell in the future to discuss her ear issues. documented in this encounter [facility] 11-28-2023 History of Present illness Narrative Images from the original note were not included. [facility] - ENT [address] , [address] [place] [address] SUBJECTIVE: Patient ID: Blanca Rudolph is a 33 y.o. female presents today for Chief Complaint Patient presents with Tinnitus Left HPI: The patient is a 33-year-old female with a 1 month history of tinnitus in the left ear. It is intermittent. It sounds like a 'buzzing' sensation. 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 She also has a headache disorder. She underwent a recent MRI of her brain. She has no otorrhea. She had an audiogram today. She is here for evaluation. HISTORY: Past Medical History: Diagnosis Date ADD (attention deficit disorder) Angina pectoris [place] Depression DVT (deep vein thrombosis) in Heart murmur History of gestational diabetes History of pre-eclampsia History of delivery History of twin in prior Hypertension Morbid obesity ([facility]) Nephrotic syndrome 11/22/2022 PPH ( hemorrhage) Pulmonary emboli ([facility]) 10/2019 Request for sterilization 02/03/2020 Signed 02/03/2020 [facility] SLE (systemic lupus erythematosus) ([facility]) 11/28/2022 Past Surgical History: Procedure Laterality Date REPEAT N/A 04/03/2019 Performed by Aquiles Abbott MD at [facility] OR REPEAT TUBAL LIGATION N/A 06/02/2020 Performed by John Person MD at [facility] OR D AND C SUCTION N/A 03/18/2018 Performed by Kat Jeffers MD at [facility] Family History Problem Relation Age of Onset Stroke Mother Hypertension Mother Stroke Maternal Grandmother Kidney failure Maternal Grandmother Heart defect Son Stroke Maternal Aunt Hypertension Maternal Aunt REQUIRED DIALYSIS Social History Socioeconomic History Marital status: Single Spouse name: Not on file Number of children: Not on file Years of education: Not on file Highest education level: Not on file Occupational History Not on file Tobacco Use Smoking status: Former Current packs/day: 0.00 Types: Cigarettes Quit date: 2020 Years since quittin.5 Smokeless tobacco: Never Vaping Use Vaping status: [...] at all Food Insecurity: No Food Insecurity (11/19/2023) Hunger Screening Food Insecurity - Worry: Never True Food Insecurity - Inability: Never True Transportation Needs: No Transportation Needs (06/19/2023) PRAPARE - Transportation Lack of Transportation (Medical): No Lack of Transportation (Non-Medical): No Physical Activity: Insufficiently Active (12/18/2022) Exercise Vital Sign Days of Exercise per Week: 7 days Minutes of Exercise per Session: 20 min Stress: No Stress Concern Present (12/18/2022) [employer] [place] [employer] - Occupational Stress Questionnaire Feeling of Stress : Only a little Social Connections: Moderately Integrated (12/18/2022) Social Connection and Isolation Panel [NHANES] Frequency of Communication with Friends and Family: More than three times a week Frequency of Social Gatherings with Friends and Family: More than three times a week Attends Yazidi Services: More than 4 times per year Active Member of Clubs or Organizations: Yes Attends Club or Organization Meetings: More than 4 times per year Marital Status: Never Interpersonal Safety: Unknown (07/06/2023) [facility] from [facility], [facility] Humiliation, Afraid, Rape, and Kick questionnaire Fear of Current or Ex-Partner: No Emotionally Abused: Not on file Physically Abused: Not on file Sexually Abused: Not on file Housing Instability: Low Risk (06/19/2023) Housing Instability Housing Instability: No Allergies Allergen Reactions Garlic Ibuprofen Other Reaction(s): medication interference Keflex [Cephalexin] Sulfamethoxazole-Trimethoprim Rash ??? pt says she gets 'heat rash' often. however developed 'worse' rash than usual shortly after taking bactrim. has taken previously with NO reaction. Current Outpatient Medications Medication Sig Dispense Refill [...] morning. amitriptyline (ELAVIL) 25 mg tablet Take 2 tablets (50 mg) nightly 60 tablet 5 aspirin 81 mg Take 1 [...] 3 tab twice daily 180 tablet 3 potassium chloride (KLOR-CON M 20) 20 MEQ CR tablet Take 1 tablet (20 mEq total) by mouth in the morning and 1 tablet (20 mEq total) before bedtime. 180 tablet 3 predniSONE (DELTASONE) 5 mg tablet 2 tab daily 60 tablet 3 PROVERA 10 mg tablet Take 1 tablet (10 mg total) by mouth in the morning. rivaroxaban (XARELTO) 20 mg tablet tablet Take 1 tablet (20 mg total) by mouth in the morning. 90 tablet 3 rizatriptan (MAXALT) 10 mg tablet Take 1 tablet just after onset of migraine. May repeat the dose after 2 hours if migraine persists. Max of 2 doses per 24 hours. 12 tablet 2 voclosporin 7.9 mg capsule Take 23.7 mg by mouth in the morning and 23.7 mg before bedtime. 60 capsule 3 No current facility-administered medications for this visit. REVIEW OF SYSTEMS: Review of Systems Constitutional: Negative for chills and fever. HENT: Positive for sinus pressure, sinus pain and tinnitus (left). Negative for ear discharge and ear pain (left, pressure). Eyes: Positive for visual disturbance. Negative for discharge. Respiratory: Negative for cough and shortness of breath. Cardiovascular: Negative for chest pain and palpitations. Gastrointestinal: Negative for nausea and vomiting. Endocrine: Negative for cold intolerance and heat intolerance. Genitourinary: Negative for difficulty urinating and dysuria. Musculoskeletal: Positive for arthralgias and myalgias. Skin: Negative for color change and rash. Allergic/Immunologic: Positive for environmental allergies. Neurological: Positive for headaches (migraines). Negative for dizziness. Hematological: Bruises/bleeds easily (xarelto). Psychiatric/Behavioral: Negative for agitation. The patient is not nervous/anxious. Data Reviewed: Audiogram 11/28/23: PHYSICAL EXAMINATION: Temp 36.8 C (98.3 F) Ht 172.7 cm (5' 8 ) Wt 121.1 kg (267 lb) BMI 40.60 kg/m Constitutional: General Appearance: Healthy, alert, cooperative, and in no distress Ability to Communicate: Normal ability to communicate and Voice normal Head/Face: Inspection of Head/Face: Normocephalic without obvious abnormality, Atraumatic appearance, and Sinuses non-tender Facial Nerve: Facial nerve symmetrical and intact Salivary Glands: Parotid Gland: Normal, Submandibular Gland: Normal, and Sublingual Gland: Normal Eyes: No gross abnormalities, EOMI, and No Nystagmus Ears: External Ear: Normal bilateral External Auditory Canal: Normal bilateral Tympanic Membranes: Normal bilateral Middle Ear: Normal bilateral Hearing: Normal bilateral Nose: External Nose: Normal Septum: Midline septum Mucosa/Turbinates: Normal inferior turbinate and Normal mucosa Oral Cavity: Normal lips, Normal teeth, Normal gums, Normal floor of mouth, Normal oral mucosa, and Normal anterior tongue Oropharynx: Normal mucosa, Normal soft palate, Normal hard palate, Normal uvula, Normal tonsils, Tonsil hypertrophy right: 1+, Tonsil hypertrophy left: 1+, and Normal Vallecula Neck: Neck supple, No adenopathy, Thyroid normal in size without nodules or tenderness, No palpable neck masses, and Carotids normal Respiratory: No stridor, Normal respiratory effort and No use of accessory muscles Cardiovascular: Regular rate and Regular rhythm Neurologic: Patient is alert and oriented x3 with normal affect and grossly normal cranial nerves ASSESSMENT/PLAN: Blanca was seen today for tinnitus. Diagnoses and all orders for this visit: Tinnitus of left ear - [facility] - [place], [place] Stage IV lupus nephritis (WHO) ([facility]) Plan: Patient presents for evaluation of left ear tinnitus that has been present for one month. She has a history of lupus. The patient had an audiogram today. The audiogram was reviewed with the patient and a copy was given for records. The hearing test revealed normal hearing bilaterally. I will look at the MRI she received a few months ago to see if the films include the IAC. If not, I will order an MRI IAC for further evaluation. I will also have her see Dr. Cornell for further evaluation. Questions and concerns addressed. She agrees. Scribe Statement: Scribed for and in the presence of JEFF TORO MD by Dior Frederick. Provider Statement: I JEFF TORO MD personally performed the services described in the documentation as described by the above named scribe in my presence. It is both accurate and complete at the time of final signature. Dr. Jeff Toro 11/28/2023 2:28 PM Counseling: The following elements of medical decision making were considered during this visit: Reviewed and summarized previous records. The patient was counseled regarding prognosis, risks and benefits of treatment options, impressions, importance of compliance with treatment and risk factor reductions. The patient verbalized understanding and agreement to the plan. Electronically signed by JEFF TORO MD Please note that parts of this chart were generated using voice recognition M*Modal dictation software. Although every effort was made to ensure the accuracy of this automated tooling mechanic, some errors in tooling mechanic may have occurred. Dior Frederick 11/28/23 1417 documented in this encounter [facility] 11-28-2023 Instructions Diro Frederick - 11/28/2023 2:00 PM EDT The patient had an audiogram today. The audiogram was reviewed with the patient and a copy was given for records. The hearing test revealed normal hearing bilaterally. I will look at the MRI she received a few months ago to see if the films include the IAC. If not, I will order an MRI IAC for further evaluation. I will also have her see Dr. Cornell for further evaluation. Questions and concerns addressed. She agrees. documented in this encounter [facility] 11-28-2023 History of Present illness Narrative AUDIOLOGIC EVALUATION Reason for visit: Blanca is here for bilateral (left worse right) intermittent ringing tinnitus and left intermittent aural fullness which started a month ago. She denies concerns for hearing and feels she hears equally from both ears. Dizziness, otalgia, and otorrhea were denied. She notes a history of occupational noise exposure with intermittent use of hearing protection devices. Diagnosis includes Lupus. HISTORY: Concerns with hearing: No Tinnitus: Bilateral, intermittent Dizziness: No Noise Exposure: Yes, occupational, limited/intermittent use of hearing protection devices Aural Fullness: Left ear, intermittent Otalgia: No Otorrhea: No Other significant history: None RESULTS: Otoscopic Evaluation: Right Ear: Unremarkable Left Ear: Unremarkable Immittance Measures: Right Ear: Type A Left Ear: Type A Acoustic Reflexes (500, 1000, 2000Hz): CNT - equipment error Pure Tone Audiometry: Right Ear: Hearing sensitivity is within normal limits 250-8000 Hz Left Ear: Hearing sensitivity is within normal limits 250-8000 Hz Asymmetry noted: No Reliability: good Speech Audiometry: SRT/TESTING SHAKING SHIPPING in good agreement WRS: Right Ear: Excellent (100%) Left Ear: Excellent (100%) RECOMMENDATIONS: 1) Follow up with Dr. Jeff Toro 2) Retest hearing per management 3) Tinnitus management strategies such as using a white noise maker, low level tv/radio, or fan to help mask the tinnitus when bothersome. It is also recommended to avoid caffeine, alcohol, tobacco, salt, high dose NSAIDs, and to increase hydration. [place], [facility] Water Resource Project Manager documented in this encounter [facility] 11-26-2023 Miscellaneous Notes A textile machinery sales representative from [facility] called stating patient needs a refill of voclosporin documented in this encounter [facility] 11-26-2023 Telephone encounter Note A textile machinery sales representative from [facility] called stating patient needs a refill of voclosporin [facility] 10-23-2023 History of Present illness Narrative OUTPATIENT NUTRITION Follow-Up - ADULT Date: 10/23/23 Time in: 9:30pm Time out: 10:15am Patient Blanca Rudolph Age () 32 y.o. (1990) Sex female Accompanied by alone Reason for Visit: Follow-up; wt loss and lupus Assessment: Height/Weight: BMI Category Obese class 3 (> or = 40.00) Weight Wt Readings from Last 3 Encounters: 10/08/23 119.7 kg (264 lb) 09/07/23 118.5 kg (261 lb 3.2 oz) 08/30/23 117.9 kg (260 lb) Lab Results: A1c Lab Results Component Value Date HGBA1C 5.3 06/19/2023 HGBA1C 4.7 02/27/2023 HGBA1C 5.0 11/22/2022 Kidney Alb/creat ratio Date/Time Value Ref Range Status 11/22/2022 03:41 PM 5,414.9 (H) 0.0 - 30.0 mg/g creat Final Lab Results Component Value Date GLU 112 (H) 10/02/2023 K 3.7 10/02/2023 BUN 33 (H) 10/02/2023 CREATININE 1.71 (H) 10/02/2023 Lipid Panel Lab Results Component Value Date CHOL 108 (L) 06/19/2023 Lab Results Component Value Date HDL 37 (L) 06/19/2023 Lab Results Component Value Date LDLCALC 52 06/19/2023 Lab Results Component Value Date TRIG 96 06/19/2023 Hgb Hemoglobin Date/Time Value Ref Range Status 10/02/2023 10:42 AM 10.0 (L) 11.7 - 15.5 g/dL Final Psychosocial / Economic Comments: Pt lives in home with disabled mother and 4 children; 1 of children is also disabled. Nutrition/Diet Counseling: Prior Nutrition Counseling Prior nutrition counseling was provided with dietitian. Follow-Up Pertinent Comments: Blanca is here today via [place]. Pt appears to be in good spirits; states things are going well but she is still struggling with making some changes. Schedule has gotten calmer with kids out of school. Pt has also removed boyfriend from the picture; states this has decreased the negativity in her life and allowed her to focus on her own health. Eating consistently; does have to time meals around medications. Getting more fruits but struggling to get in vegetables and consistent protein. Pt is staying away from garlic and high vitamin E. Discussed some of the triggers; encouraged focusing on low inflammation causing foods within the mediterranean diet. Getting good water intake Movement has not increased; still struggling to find ways to move that are not in the sun and or causing more pain. Discussed low impact options in the house. Pt feels she is on a good path but knows she needs to work harder on her previous goals. Diagnosis: Previous Diagnosis; Inconsistent energy intake Related [...] yoga, resistance bands, seated movement Follow-Up Plan Follow up appointment with [facility]orres scheduled. Department phone number provided for questions after session. PARRIS WYATT, RDN, [facility] Diabetes and Nutrition Education Video Visit via Real-time Synchronous Audiovisual Provider Location: [facility] - OUTPATIENT DIABETES AND NUTRITION EDUCATION PROGRAM [address] [place] [id number] Patient Location: Patient's home Video Visit Consent [...] that there are some limitations compared to [id number] evaluations. The patient consented to the presence of additional virtual and/or in-person participants. We elected to proceed. documented in this encounter [facility] 10-12-2023 Miscellaneous Notes Blanca states that she wants to know what will be done about her getting a sooner appointment with a Dr? Blanca states that Dr. Alva MD was not happy about her having to wait this long for a appointment just to be scheduled with a CURRICULUM DIRECTOR. Blanca appointment was changed from 10/17/13 that was Scheduled by previous Certified Alcohol Drug Counselor. Last seen by Dr. Rosas. Messaged re routed to correct nurse. Last seen by Ralph documented in this encounter [facility] 10-12-2023 Telephone encounter Note Blanca states that she wants to know what will be done about her getting a sooner appointment with a Dr? Blanca states that Dr. Alva MD was not happy about her having to wait this long for a appointment just to be scheduled with a CURRICULUM DIRECTOR. Blanca appointment was changed from 10/17/13 that was Scheduled by previous Certified Alcohol Drug Counselor. Last seen by Dr. Rosas. [facility] 10-12-2023 Telephone encounter Note Messaged re routed to correct nurse. [facility] 10-12-2023 Telephone encounter Note Last seen by Ralph [facility] 10-11-2023 Miscellaneous Notes Left voicemail for patient to return call to confirm upcoming appointment 10/17 with [facility] in [place] documented in this encounter [facility] 10-11-2023 Telephone encounter Note Left voicemail for patient to return call to confirm upcoming appointment 10/17 with [facility]O in [place] [facility] 10-08-2023 History of Present illness Narrative Images from the original note were not included. [id number] [id number] Date of Service: 10/08/2023 Subjective: Blanca Rudolph is a 32 y.o. female who presents today for evaluation Lupus. Patient is seen at the request of RICKIE CHAN. This is a follow-up visit with this patient who is 32-year-old female patient presenting today as an established patient for follow-up of lupus nephritis was seen 1st time on 11/20/2022 last time the clinic was 08/30/2023 Patient illness started on with history of [...] white BC, serum creatinine 1.34 mg/dL was [id number], , liver enzymes normal as well as CBC Started on September 19, 2023 voclosporin 23.7 mg orally twice daily Current medications including CellCept 3 g daily as well as prednisone 20 mg daily. Lab test 6 08/18/2023 serum creatinine 1.7, CRP and ESR normal, urinalysis moderate hemoglobin,, PCR no proteinuria, CBC hemoglobin 10l Today October 04, 2023 patient said that she has been doing fairly, she did have side effects when she was put on voclosporin . Review of Systems: Review of Systems Constitutional: Negative. HENT: Negative. Gastrointestinal: Negative. Musculoskeletal: Negative. Skin: Negative. Current Outpatient [...] morning. amitriptyline (ELAVIL) 25 mg tablet Take 2 tablets (50 mg) nightly 60 tablet 5 aspirin 81 mg Take 1 [...] mouth in the morning. 90 tablet 3 rizatriptan (MAXALT) 10 mg tablet Take 1 tablet just after onset of migraine. May repeat the dose after 2 hours if migraine persists. Max of 2 doses per 24 hours. 12 tablet 2 mycophenolate (CELLCEPT) 500 mg tablet 3 tab twice daily 180 tablet 3 predniSONE (DELTASONE) 5 mg tablet 2 tab daily 60 tablet 3 voclosporin 7.9 mg capsule Take [...] Tender (ROSAS-28): -- Swollen (ROSAS-28): -- BP 138/72 Resp 18 Ht 172.7 cm (5' 7.99 ) Wt 119.7 kg (264 lb) BMI 40.15 kg/m : reviewed Labs and Imaging: reviewed and discussed with the patient during the visit.I Lab Results Component Value Date WBC 7.8 10/02/2023 HGB 10.0 (L) 10/02/2023 HCT 29.5 (L) 10/02/2023 MCV 92 10/02/2023 CRP 1.1 (H) 10/02/2023 C3 140 07/26/2023 C4 29 07/26/2023 GFR >60 12/07/2021 GFR >60 12/07/2021 AST 13 10/02/2023 AST 22 06/03/2023 Imaging: Assessment and Plan: Blanca Rudolph is a 32 y.o. female patient with: 1. Stage IV lupus nephritis (WHO) ([facility] - Protein creat ratio; Future - Urinalysis; Future - Erythrocyte Sedimentation Rate (ESR); Future - C-reactive protein; Future - Comprehensive metabolic panel; Future - CBC auto differential; Future - C3 complement; Future - C4 complement; Future - voclosporin 7.9 mg capsule; Take 23.7 mg by mouth in the morning and 23.7 mg before bedtime. Dispense: 60 capsule; Refill: 3 - predniSONE (DELTASONE) 5 mg tablet; 2 tab daily Dispense: 60 tablet; Refill: 3 - mycophenolate (CELLCEPT) 500 mg tablet; 3 tab twice daily Dispense: 180 tablet; Refill: 3 2. Systemic lupus erythematosus, unspecified SLE type, unspecified organ involvement status ([facility]) - Erythrocyte Sedimentation Rate (ESR); Future - C-reactive protein; Future - Comprehensive metabolic panel; Future - CBC auto differential; Future - C3 complement; Future - C4 complement; Future - predniSONE (DELTASONE) 5 mg tablet; 2 tab daily Dispense: 60 tablet; Refill: 3 - mycophenolate (CELLCEPT) 500 mg tablet; 3 tab twice daily Dispense: 180 tablet; Refill: 3 3. Encounter for chcf use of mycophenolate mofetil - mycophenolate (CELLCEPT) 500 mg tablet; 3 tab twice daily Dispense: 180 tablet; Refill: 3 At this point patient has been doing fairly well and tolerating voclosporin. Meanwhile her serum creatinine is going up however PCR normal. Blood pressure better controlled than previously. Will keep her on current medications and re-evaluate after 3 month meanwhile will keep reducing prednisone dose.. Patient needs to be followed by Nephrology attending lupus nephritis stage IV based on kidney [...] or corrected. Thank you for your understanding. [facility] Rheumatology Dr. Sherman Calle MD [address] [facility], [address] [place] [address] Office: [phone] documented in this encounter [facility] 10-05-2023 Note 10/05/2023 Subjective Patient ID: Blanca Rudolph is a 32 y.o. female who presents for Exposure to HIV. HPI: This is a [id number]-female patient on Descovy since November 2022 for preexposure prophylaxis (PrEP) to prevent HIV infection. Patient is presenting to [facility] for a 3 months follow-up visit. Patient reports tolerance and compliance to ART without missed doses and denies any side effect. Of note, the patient was found to have a RPR titer of 1:1024 on 11/22/2022 during her autoimmune work-up at [facility] for SLE and nephrotic syndrome. She completed [...] SLE (systemic lupus erythematosus) (CMS/HCC) Pulmonary embolism ([facility]/HCC) Positive serology for syphilis On anticoagulant therapy Nephrotic syndrome Menorrhagia with irregular cycle Low grade squamous intraepithelial lesion (LGSIL) on cervicovaginal cytologic smear Low grade squamous intraepithelial lesion (LGSIL) on cervical Pap smear History of severe pre-eclampsia History of DVT (deep vein thrombosis) Fibromyalgia Encounter for chcf use of mycophenolate mofetil Delivery of by [...] directed Subcutaneous No (more content not included)... [facility] 09-11-2023 Miscellaneous Notes Blanca states that she needs to have a 90 day supply sent to her local pharmacy. Blanca states that her pharmacy has been reaching out to get the 90 day. famotidine (PEPCID) 20 mg tablet documented in this encounter [facility] 09-11-2023 Telephone encounter Note Blanca states that she needs to have a 90 day supply sent to her local pharmacy. Blanca states that her pharmacy has been reaching out to get the 90 day. famotidine (PEPCID) 20 mg tablet [facility] 09-07-2023 History of Present illness Narrative [facility] Neurology Office Note 09/06/2023 3:22 PM Patient info: Blanca Rudolph is a 32 y.o. female Account No.: [id number] Acct: : 1990 PCP: RICKIE CHAN Chief Complaint: Patient, 32 year old left hand dominant female, presents today for initial Neurological evaluation regarding headaches. Last seen in the office on 07/05/23 Blanca is present in the office today herself. Interval Hx: Brain MRI without contrast was completed on [...] in providing abortive/symptomatic relief and well tolerated. Current preventative CURRY/migraine medication: Magnesium Oxide, Amitriptyline Preventative med/s previously tried include: Metoprolol Preventative med/s not indicated include: Propranolol Current abortive/symptomatic relief CURRY/migraine medication: Tylenol, Rizatriptan Abortive/Symptomatic relief med/s previously tried include: Abortive/Symptomatic [...] of significant head injury/trauma: (-) hx of SIEVE MAKER infection: (-) hx of stroke or cerebrovascular [...] with Xarelto and ASA 81 mg daily. Past Medical Hx: See EMR Surgical Hx: [...] remainder of ROS is negative Vitals: BP: 137/74 HR: 76 Weight: 118.5 kg Physical Exam: General: well groomed, appears [...] often with features of migraine without aura. CURRY's/migraines are showing some improvement on her current regimen. PLAN: Titrate Amitriptyline to 25 mg, 2 tablets (50 mg) HS for CURRY/migraine prevention; take 1.5 tabs (37.5) HS for 1 week, then increase to 2 tabs (50 mg) HS Continue Rizatriptan 10 mg for abortive/symptomatic migraine relief CURRY log is recommended Identification and avoidance of personal CURRY/migraine triggers discussed Trying to stay on a regular sleep and eating schedule, staying well hydrated, and working on stress management to help reduce CURRY/migraine frequency discussed Follow up in the office in 4-6 months Electronically Signed by: Arianna Alexander PA-C 09/07/23 1010 documented in this encounter [employer] 09-07-2023 Instructions Arianna Alexander PA-C - 09/07/2023 10:00 AM EDT Amitriptyline 25 mg: take 1.5 tablets (37.5 mg) nightly for 1 week, then increase to 2 tablets (50 mg) nightly documented in this encounter [employer] 09-06-2023 History of Present illness Narrative OUTPATIENT NUTRITION CONSULTATION- ADULT Date: 09/06/23 Time in: 9:15am Time out: 11:00am Patient Blanca Rudolph Age () 32 y.o. (1990) Sex female Accompanied by alone Reason for Visit: Chief Complaint Patient presents with MNT - Individual Initial; wt loss Assessment: Height/Weight: BMI Category Obese class 2 (35.00- 39.99) Weight Wt Readings from Last 3 Encounters: 08/30/23 117.9 kg (260 lb) 08/21/23 113.4 kg (250 lb) 08/02/23 116.5 kg (256 lb 12.8 oz) Lab Results: A1c Lab Results Component Value Date HGBA1C 5.3 06/19/2023 HGBA1C 4.7 02/27/2023 HGBA1C 5.0 11/22/2022 Kidney Alb/creat ratio Date/Time Value Ref Range Status 11/22/2022 03:41 PM 5,414.9 (H) 0.0 - 30.0 mg/g creat Final Lab Results Component Value Date GLU 91 08/22/2023 K 3.5 08/22/2023 BUN 38 (H) 08/22/2023 CREATININE 1.34 (H) 08/22/2023 Lipid Panel Lab Results Component Value Date CHOL 108 (L) 06/19/2023 Lab Results Component Value Date HDL 37 (L) 06/19/2023 Lab Results Component Value Date LDLCALC 52 06/19/2023 Lab Results Component Value Date TRIG 96 06/19/2023 Hgb Hemoglobin Date/Time Value Ref Range Status 08/22/2023 12:42 AM 12.8 11.7 - 15.5 g/dL Final Psychosocial / Economic Comments: Pt lives in home with disabled mother and 4 children; 1 of children is also disabled. Nutrition/Diet Counseling: Prior Nutrition Counseling Prior nutrition counseling was not provided. Diet History Revealed Energy Intake: Inconsistent Total Fat Intake: Adequate Sodium Intake: Adequate Fiber Intake: Inadequate Carbohydrate Intake: Inconsistent Protein Intake: Adequate Food Recall Breakfast Time:: (P) 0800 Breakfast Meal:: wheat cereal; fruit Lunch Time:: (P) 1200 Lunch Meal:: Fruit, vegetables, chicken Dinner Time:: (P) 1530 Dinner Meal:: fruit, vegetables, turkey burger Snack Time:: (P) 1000 Snack:: (P) N/a Snack Time:: (P) 1330 Snack:: (P) N/a What beverages do you consume and approxiate amount?: (P) N/a Pertinent Comments: Background Blanca is here today via [facility]. Pt had recent diagnosis of Lupus; has been struggling with understanding this diagnosis and how to approach nutrition. Pt has been told to follow a kidney healthy diet. Movement/Exercise PT getting limited movement outside of day to day activities. Discussed different ways to move inside and away from the sun. Discussed how movement is important. Encouraged muscle building movement if and when able; weight lifting, resistant training, at home seated movement. Discussed the benefits of movement/exercise in weight loss, BG control, and all over wellbeing. Concerns Pt is concerned about what she should or should not eat Diagnosis: Inconsistent energy intake Related to Lack of prior nutrition-related education and recent lupus diagnosis As evidenced by 24 hr recall and Questions and comments Intervention: Nutrition Education: Patient was instructed on carbohydrate counting, healthy food selections, sources of fiber, and sources of protein Notes: Previous Eating Habits Pt did not previously follow a specific diet before diagnosis of Lupus. Since she has been trying to follow a kidney diet , staying away from night shade vegetables, cut out garlic, vitamin water. Trying to incorporate more fruits and vegetables. Discussed a low inflammation based diet. Encouraged she use the mediterranean based diet to work off of and build more meal ideas. Pt is struggling with cutting out garlic. Discussed some other seasonings to try; coconut oil in rice instead of lemon. Explained the role of macronutrient's and their impact on metabolism and energy levels. Discussed the impact of carbohydrates on BG levels, encouraged supportive nutrients with carbs for digestive and BG level support. Educated on balanced meals and snacks with a focus on protein and fiber for fullness/satisfaction. Recommended spacing meals 3-5 hours apart, including snacks between meals (as needed) with carb/protein pairings. Recommended carb intake provided above. Provided with supportive resources that include but were not limited to: snack ideas, lean proteins, fiber containing foods, plate method. Monitoring & Evaluation: Goals Focus on using the Mediterranean Diet [...] rice, parsnips for some carb options. Increase muscle building movement; 20-30min; stretching, yoga, resistance bands, seated movement Follow-Up Plan Follow up appointment with Eveline scheduled. Department phone number provided for questions after session. PARRIS WYATT, RDN, CDCES [facility] Diabetes and Nutrition Education Video Visit via Real-time Synchronous Audiovisual Provider Location: [facility] - OUTPATIENT DIABETES AND NUTRITION EDUCATION PROGRAM [address] [place] [id number] Patient Location: Patient's home Video Visit Consent [...] that there are some limitations compared to qhoh-dl-apna evaluations. The patient consented to the presence of additional virtual and/or in-person participants. We elected to proceed. documented in this encounter [facility] 08-30-2023 History of Present illness Narrative Images from the original note were not included. [address] [id number] Date of Service: 08/30/2023 Subjective: Blanca Rudolph is a 32 y.o. [...] white BC, serum creatinine 1.34 mg/dL was [id number], , liver enzymes normal as well as CBC Started on September 19, 2023 voclosporin 23.7 mg orally twice daily Current medications including CellCept 3 g daily as well as prednisone 20 mg daily. Today 08/30/2023 patient said that she has been doing fairly, she did have side effects when she was put on voclosporin however this has been Review of Systems: Review of Systems Constitutional: Negative. HENT: Negative. Gastrointestinal: Negative. Musculoskeletal: Negative. Skin: Negative. Current Outpatient [...] 3 tab twice daily 180 tablet 3 potassium chloride (KLOR-CON M 20) 20 MEQ CR tablet Take 1 tablet (20 mEq total) by mouth in the morning and 1 tablet (20 mEq total) before bedtime. 180 tablet 3 predniSONE (DELTASONE) 5 mg tablet 3 tab daily 90 tablet 1 PROVERA 10 mg tablet Take 1 tablet (10 mg total) by mouth in the morning. rivaroxaban (XARELTO) 20 mg tablet tablet Take 1 tablet (20 mg total) by mouth in the morning. 90 tablet 3 rizatriptan (MAXALT) 10 mg tablet Take 1 tablet just after onset of migraine. May repeat the dose after 2 hours if migraine persists. Max of 2 doses per 24 hours. 12 tablet 2 voclosporin 7.9 mg capsule Take 23.7 mg [...] Tender (ROSAS-28): -- Swollen (ROSAS-28): -- BP 138/78 Resp 18 Ht 172.7 cm (5' 7.99 ) Wt 117.9 kg (260 lb) LMP 08/21/2023 (Exact Date) BMI 39.54 kg/m : reviewed Labs and Imaging: reviewed and discussed with the patient during the visit.I Lab Results Component Value Date WBC 10.1 08/22/2023 HGB 12.8 08/22/2023 HCT 36.3 08/22/2023 MCV 91 08/22/2023 CRP 0.4 07/26/2023 C3 140 07/26/2023 C4 29 07/26/2023 GFR >60 12/07/2021 GFR >60 12/07/2021 AST 12 08/22/2023 AST 22 06/03/2023 Imaging: Assessment and Plan: Blanca Rudolph is a 32 y.o. female patient with: 1. Stage IV lupus nephritis (WHO) ([facility]) - predniSONE (DELTASONE) 5 mg tablet; 3 tab daily Dispense: 90 tablet; Refill: 1 - Protein creat ratio; Future - Urinalysis; Future - C-reactive protein; Future - Comprehensive metabolic panel; Future - CBC auto differential; Future - Erythrocyte Sedimentation Rate (ESR); Future 2. Systemic lupus erythematosus, unspecified SLE type, unspecified organ involvement status ([facility]) - predniSONE (DELTASONE) 5 mg tablet; 3 tab daily Dispense: 90 tablet; Refill: 1 3. 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 Meanwhile her serum creatinine improving slowly as well as her PCR almost normal. Blood pressure better controlled than previously. Will keep her on current medications and re-evaluate after 1 month meanwhile will keep reducing prednisone dose.. lupus nephritis stage IV based on kidney [...] in 2 weeks Re-evaluate after 1 month. This note was created with the assistance of a speech recognition program. While intending to generate a timely document that accurately reflects the content of the visit, no guarantee can be provided that every grammatical or spelling mistake has been or will be identified or corrected. Thank you for your understanding. [facility] Rheumatology Dr. Sherman Calle MD [address] [place] [address], [address] [place] [address] Office: [phone] documented in this encounter [facility] 08-23-2023 Miscellaneous Notes Blanca called in stated she was in hospital and they did blood work and she was wondering about her Leukocyte and the was abnormal. She was wondering if she could have a UTI??? Please advise. Thanks Total leukocyte count was normal Pt notified Patient states B/p has been high at 140/90 which is higher then normal and knows it can be a side affect from the new medication she is on. She wants to know what you think/advise. Needs to check with the nephrologists Patient agrees to follow up with the nephrologists documented in this encounter [facility] 08-23-2023 Telephone encounter Note Blanca called in stated she was in hospital and they did blood work and she was wondering about her Leukocyte and the was abnormal. She was wondering if she could have a UTI??? Please advise. Thanks [facility] 08-23-2023 Telephone encounter Note Total leukocyte count was normal [facility] 08-23-2023 Telephone encounter Note Pt notified [facility] 08-23-2023 Telephone encounter Note Patient states B/p has been high at 140/90 which is higher then normal and knows it can be a side affect from the new medication she is on. She wants to know what you think/advise. [facility] 08-23-2023 Telephone encounter Note Needs to check with the nephrologists [facility] 08-23-2023 Telephone encounter Note Patient agrees to follow up with the nephrologists [facility] 08-20-2023 Miscellaneous Notes We received a referral for education on Blanca Rudolph 1990. However per CMS Guidelines we need to have the services requested marked as such on referral. Please see pended order and sign if you are agreeable. Thank you [facility] Can you fix this Fix order and pended to Dr. Calle to sign Checking the status of having the pended order signed by if agreeable. Thanks! The new order does not have the services requested marked. Please see the pended referral at the bottom of this message and sign if agreeable. Thank you documented in this encounter [facility] 08-20-2023 Telephone encounter Note We received a referral for education on Blanca Rudolph 1990. However per CMS Guidelines we need to have the services requested marked as such on referral. Please see pended order and sign if you are agreeable. Thank you [facility] 08-20-2023 Telephone encounter Note Can you fix this [facility] 08-20-2023 Telephone encounter Note Fix order and pended to Dr. Calle to sign [facility] 08-20-2023 Telephone encounter Note Checking the status of having the pended order signed by if agreeable. Thanks! [facility] 08-20-2023 Telephone encounter Note The new order does not have the services requested marked. Please see the pended referral at the bottom of this message and sign if agreeable. Thank you [facility] 08-17-2023 Miscellaneous Notes Patient called in with possible medication interaction that was informed to her from pharmacy . Patient was prescribed Voclosporin and patient was told UBRELVY and VOCLOSPORIN cannot be taken at same time. Patient requesting a call back on what other medication can be prescribe for her headaches. Please advise How has her blood pressure been? See PLAN section from my last office note. - [facility] Spoke to patient who stated her pressure has been better since starting Coreg BID. Reviewed patient's chart, on 07/31/23 BP was 140/78 on 08/02/23 BP was 116/74. There are no further BPs charted. Will send in some Rizatriptan to replace Ubrelvy. - [facility] Patient informed and voiced understanding. Addended by: ARIANNA ALEXANDER on: 08/17/2023 03:28 PM Modules accepted: Orders documented in this encounter [facility] 08-17-2023 Note Addended by: ARIANNA FRANCISCO on: 08/17/2023 03:28 PM Modules accepted: Orders [facility] 08-17-2023 Telephone encounter Note Patient called in with possible medication interaction that was informed to her from pharmacy . Patient was prescribed Voclosporin and patient was told UBRELVY and VOCLOSPORIN cannot be taken at same time. Patient requesting a call back on what other medication can be prescribe for her headaches. Please advise [facility] 08-17-2023 Telephone encounter Note How has her blood pressure been? See PLAN section from my last office note. - [facility] 08-17-2023 Telephone encounter Note Spoke to patient who stated her pressure has been better since starting Coreg BID. Reviewed patient's chart, on 07/31/23 BP was 140/78 on 08/02/23 BP was 116/74. There are no further BPs charted. [facility] 08-17-2023 Telephone encounter Note Will send in some Rizatriptan to replace Ubrelvy. - [facility] 08-17-2023 Telephone encounter Note Patient informed and voiced understanding. [facility] 08-17-2023 Miscellaneous Notes Amrit from [facility] called and stated patient is approved for Voclosporin and patient can call the speciality pharmacy to set up the delivery of the medication. He also stated the pharmacy has been trying to call her to set up the delivery. They will be reaching out again today. [facility] Lvm for the patient to call us to get the info. Patient called back and stated the pharmacy has contacted her and shipment is all set up. documented in this encounter [facility] 08-17-2023 Telephone encounter Note mArit from [facility] team called and stated patient is approved for Voclosporin and patient can call the speciality pharmacy to set up the delivery of the medication. He also stated the pharmacy has been trying to call her to set up the delivery. They will be reaching out again today. [facility] for the patient to call us to get the info. [facility] 08-17-2023 Telephone encounter Note Patient called back and stated the pharmacy has contacted her and shipment is all set up. [facility] 08-03-2023 Miscellaneous Notes Blanca states that she needs to have medical clearance for a DNC procedure she is having on 08/16/23. She wanted to know if the Physician will just sign off on this since she was just seen 06/2023. She also states that her blood pressure has been elevated and today it was 110/73 and on Sunday it was 140/90, Blanca is unable to check her BP at home due to her not having a cuff right for her size. Blanca would like to speak with a nurse about the BP. documented in this encounter [facility] 08-03-2023 Telephone encounter Note Blanca states that she needs to have medical clearance for a DNC procedure she is having on 08/16/23. She wanted to know if the Physician will just sign off on this since she was just seen 06/2023. She also states that her blood pressure has been elevated and today it was 110/73 and on Sunday it was 140/90, Blanca is unable to check her BP at home due to her not having a cuff right for her size. Blanca would like to speak with a nurse about the BP. [facility] 08-02-2023 History of Present illness Narrative Images from the original note were not included. [facility] Pulmonary And Sleep Consult Patient - Blanca [...] rescue inhaler by primary care physician assistant professor in family studies within the last couple of years which [...] Date ADD (attention deficit disorder) Angina pectoris ([facility]) Depression DVT (deep vein thrombosis) in Heart murmur History of gestational diabetes History of pre-eclampsia History of delivery History of twin in prior Hypertension Morbid obesity ([facility]) Nephrotic syndrome 11/22/2022 PPH ( hemorrhage) Pulmonary emboli ([facility]) 10/2019 Request for sterilization 02/03/2020 Signed 02/03/2020 [place] Resident SLE (systemic lupus erythematosus) ([facility]) 11/28/2022 Past Surgical History: Procedure Laterality Date REPEAT N/A 04/03/2019 Performed by Aquiles Abbott MD at [facility] OR REPEAT TUBAL LIGATION N/A 06/02/2020 Performed by John Person MD at [facility] OR D AND C SUCTION N/A 03/18/2018 Performed by Kat Jeffers MD at [facility] Garlic, Ibuprofen, Keflex [cephalexin], and Sulfamethoxazole-trimethoprim Prior to Admission medications Medication Sig Start Date End Date Taking? Authorizing Provider acetaminophen (TylenoL) 325 mg tablet Take 2 tablets (650 mg total) by mouth every 6 (six) hours as needed for pain. 06/03/23 Yes Fredy Shi MD allopurinoL (ZYLOPRIM) 100 mg tablet Take 1 tablet (100 mg total) by mouth in the morning. Yes Not In System Ref Prov amitriptyline (ELAVIL) 25 mg tablet Take 1 tablet (25 mg) nightly Patient taking differently: Take 1 tablet (25 mg total) by mouth nightly. Take 1 tablet (25 mg) nightly 07/05/23 Yes Arianna Alexander PA-C aspirin 81 mg Take 1 [...] by mouth in the morning. 06/28/23 Yes Juan C Valle MD ubrogepant (UBRELVY) 100 mg tablet Take 1 tablet just after onset of migraine. May repeat the dose after 2 hours if CURRY persists. Max of 2 doses per 24 hours. 07/05/23 Yes Arianna Alexander PA-C voclosporin 7.9 mg capsule Take [...] kg/m Cardiac Results: ECHO 2023 PACS Images ([facility]) Show images for Echo complete W/O [...] -3.12 4.22 - 6.39 (cm) Data set: [place] Z-score normal range: +/-1.65 BSA formula: Pekinfernando Doppler Measurements AV AV valve area 5.67 [...] particularly in the lower thoracic spine. Dr. Mague Portillo DO. [facility] Pulmonary [facility] Critical Care Office: [phone] documented in this encounter [facility] 07-31-2023 History of Present illness Narrative Images from the original note were not included. [address] [address] Date of Service: 07/31/2023 Subjective: Blanca Rudolph [...] with: 1. Stage IV lupus nephritis (WHO) ([facility]) - predniSONE (DELTASONE) 20 mg tablet; Take [...] unspecified SLE type, unspecified organ involvement status ([facility]) - predniSONE (DELTASONE) 20 mg tablet; Take 1 tablet (20 mg total) by mouth in the morning. One tab daily. Dispense: 30 tablet; Refill: 1 - mycophenolate (CELLCEPT) 500 mg tablet; 3 tab twice daily Dispense: 180 tablet; Refill: 3 3. Encounter for technician terminal and repeater use of mycophenolate mofetil - mycophenolate (CELLCEPT) 500 mg tablet; 3 tab twice daily Dispense: 180 tablet; Refill: 3 4. BMI 39.0-39.9,adult - Ambulatory referral to Religion Department Chair ([facility]); Future At this point patient continued [...] or corrected. Thank you for your understanding. [facility] Dr. Sherman Calle MD [address], [address] [place] [id number] Office: [phone] documented in this encounter [facility] 07-16-2023 Miscellaneous Notes Patient called in requested office note be faxed to [phone] note faxed per her request documented in this encounter [facility] 07-16-2023 Telephone encounter Note Patient called in requested office note be faxed to [phone] note faxed per her request [facility] 07-16-2023 Miscellaneous Notes Pt is not [...] ER. PT INFORMED. documented in this encounter [facility] 07-16-2023 Telephone encounter Note Pt is not feeling well. Wondering if she was to take medication for it she would be able to take anything other then tylenol. Son tested positive for Flu A. She tested negative at this time. [facility] 07-16-2023 Telephone encounter Note I do not know what kind sickness she is complaining of however she can try Tylenol if that does not work then she can go to ER. [facility] 07-16-2023 Telephone encounter Note PT INFORMED. [facility] 07-16-2023 Miscellaneous Notes Patient called in stating that she is sick and she would like to Zur[place], she is questioning if she would be able to take it along with her Ubrelvy. Best contact for patient [phone] She may take Zyrtec and Ubrelvy together. - [facility] Patient informed and voiced understanding. documented in this encounter [facility] 07-16-2023 Telephone encounter Note Patient called in stating that she is sick and she would like to Zur[place], she is questioning if she would be able to take it along with her Ubrelvy. Best contact for patient [phone] [facility] 07-16-2023 Telephone encounter Note She may take Zyrtec and Ubrelvy together. - [facility] 07-16-2023 Telephone encounter Note Patient informed and voiced understanding. [facility] 07-13-2023 Miscellaneous Notes Fax received from [facility]. A prior authorization is needed for the medication Ubrelvy. Contact: RN has completed PA on CMM. Nuno: [id number] documented in this encounter [facility] 07-13-2023 Telephone encounter Note Fax received from [facility]. A prior authorization is needed for the medication Ubrelvy. Contact: [facility] 07-13-2023 Telephone encounter Note RN has completed PA on CMM. Nuno: [id number] [facility] 07-12-2023 History of Present illness Narrative [...] being treated with CellCept and steroids per [facility] protocol. Systemic lupus erythematosus manifested by recurrent [...] Date ADD (attention deficit disorder) Angina pectoris ([facility]) Depression DVT (deep vein thrombosis) in Heart murmur History of gestational diabetes History of pre-eclampsia History of delivery History of twin in prior Hypertension Morbid obesity ([facility]) Nephrotic syndrome 11/22/2022 PPH ( hemorrhage) Pulmonary emboli ([facility]) 10/2019 Request for sterilization 02/03/2020 Signed 02/03/2020 [place] Resident SLE (systemic lupus erythematosus) ([facility]) 11/28/2022 Surgical History: Past Surgical History: Procedure Laterality Date REPEAT N/A 04/03/2019 Performed by Aquiles Abbott MD at [facility] OR REPEAT TUBAL LIGATION N/A 06/02/2020 Performed by John Person MD at [facility] OR D AND C SUCTION N/A 03/18/2018 Performed by Kat Jeffers MD at [facility] Social History: Social History Socioeconomic History Marital [...] min Stress: No Stress Concern Present (12/18/2022) [employer] [place] [employer] - Occupational Stress Questionnaire Feeling of Stress : Only a little Social Connections: Moderately Integrated (12/18/2022) Social Connection and Isolation Panel [NHANES] Frequency of Communication with Friends and Family: More than three times a week Frequency of Social Gatherings with Friends and Family: More than three times a week Attends Yazidi Services: More than 4 times per year [...] Exam Vital Signs: Vitals: 07/12/23 0921 07/12/23 09 BP: 136/83 139/88 BP Site: Left Forearm [...] IRONSAT 29 11/22/2022 FERRITIN 317 (H) 11/22/2022 [id number] 512 11/22/2022 FOLATE >25.0 11/22/2022 Mineral and [...] of this patient. Please contact me at [phone] (Office) or [phone] (Answering service) with any questions. Sade Rosas MD [facility] This note was created with the assistance of a speech-recognition program. Although the intention is to generate a document that actually reflects the content of the visit, no guarantees can be provided that every mistake has been identified and corrected by editing. documented in this encounter [facility] 07-06-2023 Note Spoke with patient. No new symptoms. I advised patient that she may be asked to get a repeat. She has a few upcoming appointments at [place] and could get drawn likely at the same time. [facility] 07-06-2023 Note 07/06/2023 Subjective Patient ID: Blanca Rudolph is a 32 y.o. female who presents for Health Maintenance and Exposure to HIV. HPI This is a 83-wqpcw-wqv-female patient on Descovy presenting to [facility] for a 3 months follow-up visit for preexposure prophylaxis to prevent HIV infection (PReP). Patient was started on Descovy on 11/2022. The patient reports tolerance and compliance to ART without adverse reaction. Of note, the patient was found to have a RPR titer of 1:1024 on 11/22/2022 during her autoimmune work-up at [facility] for SLE and nephrotic syndrome. She completed [...] DVT (deep vein thrombosis) Fibromyalgia Encounter for [facility]cf use of mycophenolate mofetil Delivery of by [...] Smoking status: F (more content not included)... [facility] 07-06-2023 Miscellaneous Notes Patient is calling in to inform us of some more family history. Patient stated that her aunt and mother also have high blood pressure, and her grandmother as well had kidney issues and was on dialysis CHART UPDATED documented in this encounter [facility] 07-06-2023 Telephone encounter Note Patient is calling in to inform us of some more family history. Patient stated that her aunt and mother also have high blood pressure, and her grandmother as well had kidney issues and was on dialysis [facility] 07-06-2023 Telephone encounter Note CHART UPDATED [facility] 07-05-2023 History of Present illness Narrative [facility] Neurology Office Note 07/05/2023 10:19 AM Patient info: Blanca Rudolph is a 32 y.o. female Account No.: [id number] Acct: : 1990 PCP: Billy Zelaya PA-C [...] of significant head injury/trauma: (-) hx of SIEVE MAKER infection: (-) hx of stroke or cerebrovascular [...] the office in 2 months in the [place] office Electronically Signed by: Arianna Alexander PA-C 07/05/23 1213 documented [facility] this encounter [facility] History of Present illness Narrative Patient had video visit to Continue Xarelto 20 mg daily. Follow-up in 1 year with CBC CMP prior to visit. Dr. Valle will leave instruction for preop preparation for patient's oophorectomy surgery August 15. documented in this encounter [facility] 07-05-2023 History of Present illness Narrative Images from the original note were not included. [facility] Vido visit per patient's request. 07/05/23 Blanca [...] that there are some limitations compared to [id number]-[id number] evaluations. We elected to proceed. History of [...] Date ADD (attention deficit disorder) Angina pectoris ([facility]) Depression DVT (deep vein thrombosis) in Heart murmur History of gestational diabetes History of pre-eclampsia History of delivery History of twin in prior Hypertension Morbid obesity ([facility]) Nephrotic syndrome 11/22/2022 PPH ( hemorrhage) Pulmonary emboli ([facility]) 10/2019 Request for sterilization 02/03/2020 Signed 02/03/2020 [place] Resident SLE (systemic lupus erythematosus) ([facility]) 11/28/2022 Past Surgical History: Procedure Laterality Date REPEAT N/A 04/03/2019 Performed by Aquiles Abbott MD at [facility] OR REPEAT TUBAL LIGATION N/A 06/02/2020 Performed by John Person MD at [facility] OR D AND C SUCTION N/A 03/18/2018 Performed by Kat Jeffers MD at [facility] Family History Problem Relation Age of [...] min Stress: No Stress Concern Present (12/18/2022) [employer] [place] [employer] - Occupational Stress Questionnaire Feeling of Stress : Only a little Social Connections: Moderately Integrated (12/18/2022) Social Connection and Isolation Panel [NHANES] Frequency of Communication with Friends and Family: More than three times a week Frequency of Social Gatherings with Friends and Family: More than three times a week Attends Yazidi Services: More than 4 times per year [...] 0 Dose: 650 mg Signed by: Dr. Fredy Shi MD 650 mg, oral, Every 6 [...] For diagnoses: Stage IV lupus nephritis (WHO) ([facility]), Systemic lupus erythematosus, unspecified SLE type, unspecified organ involvement status ([facility]), Encounter for technician terminal and repeater use of mycophenolate mofetil Signed by: Dr. [...] For diagnoses: Stage IV lupus nephritis (WHO) ([facility]), Systemic lupus erythematosus, unspecified SLE type, unspecified organ involvement status ([facility]) Dose: 20 mg Signed by: Dr. Calle 20 mg, oral, Daily, One tab daily Commonly known as: DELTASONE PROVERA 10 mg tablet Refills: 0 Dose: 10 mg Generic drug: medroxyPROGESTERone sevelamer 800 mg tablet Refills: 0 Dose: 800 mg Commonly known as: RENVELA XARELTO 20 mg tablet tablet Quantity: 90 tablet Refills: 3 Dose: 20 mg Signed by: Dr. Juan C Valle MD 20 mg, oral, Daily Generic drug: [...] Final 12/31/2019 10:44) PATIENT INFO: ID #: [id number] : [birth year] (29 yrs)(F) Name: BLANCA DIAZ Visit Date: 12/30/2019 14:15 RONNI PERFORMED BY: Performed By: Ashwin Guallpa RDMS Attending: Samuel Beltran MD Referred By: Brandy Alexis MD Ref. [address] [place] [address] Location: [facility] SERVICE(S) PROVIDED: Basic OB >/= 14 weeks, 1 fetus [id number] INDICATIONS: Other suspected or known abnormality O35.8XX0 [...] of the time. RECOMMENDATIONS: 1. Please see [facility] consultation letter from today. 2. Patient [...] Protein Urine Random 1,070 (H) <120 mg/L U/Pro/Developer Designer Ratio Calc 0.70 (H) <0.2 Parathyroid Hormone, [...] Protein Urine Random 1,070 (H) <120 mg/L U/Pro/Developer Designer Ratio Calc 0.71 (H) <0.2 Diagnosis Problem [...] and CMP prior to visit. Thank you. Juan C Valle MD Please note that portions of this note were generated using voice recognition [email or web address] dictation software. Although every effort was made to ensure the accuracy of this automated tooling mechanic, some errors in tooling mechanic may have occurred. CC: Patient Care Team: Billy Zelaya PA-C as PCP - General (Physician Unified Communications Engineer) Anna Kaur RN as Registered Nurse (Obstetrics) Sherman Calle MD as Referring Physician (Rheumatology) Mayco Albright DO as Referring Physician (Obstetrics and Gynecology) PCP:Billy Zelaya Referring MD: No ref. provider found documented in this encounter [facility] 07-05-2023 Instructions Juan C Valle MD - 07/05/2023 9:00 AM EST Continue Xarelto 20 mg daily. Follow-up in 1 year with CBC CMP prior to visit. I will leave instruction for preop preparation for patient's oophorectomy surgery August 15. documented in this encounter [facility] 07-04-2023 History of Present illness Narrative Images from the original note were not included. [address] [address] Date of Service: 07/04/2023 Subjective: Blanca Rudolph [...] unspecified SLE type, unspecified organ involvement status ([facility]) - mycophenolate (CELLCEPT) 500 mg tablet; 3 [...] Future 2. Stage IV lupus nephritis (WHO) ([facility]) - mycophenolate (CELLCEPT) 500 mg tablet; 3 [...] Unlisted Lab Test; Future 3. Encounter for technician terminal and repeater use of mycophenolate mofetil - mycophenolate (CELLCEPT) 500 mg tablet; 3 tab twice daily Dispense: 180 tablet; Refill: 3 - CBC auto differential; Future 4. FPC systemic steroid user 5. Fibromyalgia - amitriptyline [...] or corrected. Thank you for your understanding. [facility] Rheumatology Dr. Sherman Calle MD [address], [address] [place] [address] Office: [phone] documented in this encounter [facility] 07-03-2023 Miscellaneous Notes Surgeon: Dr. Albright Type of surgery: D&C Diagnostic Lap/ Hysteroscopy Date of surgery: 07/06/23 Surgery location: [place] Type of anesthesia: General On a blood [...] notified to address documented in this encounter [facility] 07-03-2023 Telephone encounter Note Surgeon: Dr. Albright Type of surgery: D&C Diagnostic Lap/ Hysteroscopy Date of surgery: 07/06/23 Surgery location: [place] Type of anesthesia: General On a blood thinner?: xarelto Indication? DVT/Pulmonary emboli On an antiplatelet?: ASA 81 mg Date of last EK06/19/23 Last office visit date and who they saw: 06/27/23- Dr. Harmon Their preference of how long to hold blood thinners/antiplatelet: Would like to hold ASA & Xarelto 3 days History of DVT/PE? Yes ATTN: Viviane Harmon messaged [facility] 07-03-2023 Telephone encounter Note She would [...] after surgery when safe to do so. [facility] 07-03-2023 Telephone encounter Note Clearance Alberto notified to address [facility] 06-28-2023 Miscellaneous Notes Pt called in regards to getting her appt with [facility] rescheduled. Messaged [facility] who stated to have the pt seen in [place] with . Next week did not work for her so I informed her I would give her a call around 07/05/23 to try to get her scheduled for the week of 07/09/23. Called pt and scheduled follow up in [facility]. documented in this encounter [facility] 06-28-2023 Telephone encounter Note Pt called in regards to getting her appt with [facility] rescheduled. Messaged [facility] who stated to have the pt seen in [place] with MD. Next week did not work for her so I informed her I would give her a call around 07/05/23 to try to get her scheduled for the week of 07/09/23. [facility] 06-28-2023 Telephone encounter Note Called pt and scheduled follow up in [facility]. [facility] 06-27-2023 History of Present illness Narrative Blanca Jasmina Ronni Date of visit: 06/27/2023 Date of : 1990 Age: 32 y.o. Patient Active Problem List Diagnosis Chronic hypertension History of severe pre-eclampsia Bilateral pulmonary embolism ([facility]) October 2019 History of DVT (deep vein thrombosis) LSIL Pap Delivery of by section Abdominal hematoma Abdominal pain Blood loss anemia Nephrotic syndrome Acute kidney injury ([facility]) SLE (systemic lupus erythematosus) ([facility]) Positive serology for syphilis Vitamin D deficiency Stage IV lupus nephritis (WHO) ([facility]) Encounter for technician terminal and repeater use of mycophenolate mofetil On anticoagulant therapy Fibromyalgia Menorrhagia with irregular cycle Other chest pain Allergies Allergen Reactions Garlic Ibuprofen Other Reaction(s): medication interference Keflex [Cephalexin] Sulfamethoxazole-Trimethoprim Rash ??? pt says she gets 'heat rash' often. however developed 'worse' rash than usual shortly after taking bactrim. has taken previously with NO reaction. Current Outpatient Medications Medication Sig Dispense Refill acetaminophen (TylenoL) 325 mg tablet Take 2 tablets (650 mg total) by mouth every 6 (six) hours as needed for pain. 30 tablet 0 allopurinoL (ZYLOPRIM) 100 mg tablet Take 1 tablet (100 mg total) by mouth in the morning. amitriptyline (ELAVIL) 10 mg tablet Take 1 tablet (10 mg total) by mouth nightly. 30 tablet 2 aspirin 81 mg Take 1 tablet (81 [...] 3 tab twice daily 180 tablet 3 omeprazole (PriLOSEC) 20 mg [...] total) in the evening. Take with meals. No current facility-administered medications for this visit. Facility-Administered Medications Ordered in Other Visits Medication Dose Route Frequency Provider Last Rate Last Admin regadenoson (LEXISCAN) injection 0.4 mg 0.4 mg intravenous Once in imaging Bucky Tsai MD sodium chloride 0.9 % flush 10 mL 10 mL intravenous PRN Bucky Tsai MD 10 mL at 06/14/23 0810 Chief Complaint Patient presents with Follow-up EST PT IP TTH HTN ABN EKG History of Present Illness Pleasant 32-year-old lady with past medical history of bilateral PE, SLE, fibromyalgia. Patient was recently admitted with chest pain. Stress test was intermediate. Underwent coronary CTA that showed normal coronary anatomy. Echocardiogram showed preserved ejection fraction. Patient also mentions that 1 of her sons has Kawasaki disease, the other 1 was diagnosed with hypertrophic cardiomyopathy. Currently, she has intermittent atypical chest discomfort when she gets stressed out. Blood pressure heart rate have been controlled. Past Medical History: Diagnosis Date ADD (attention deficit disorder) Angina pectoris ([facility]) Depression DVT (deep vein thrombosis) in Heart murmur History of gestational diabetes History of pre-eclampsia History of delivery History of twin in prior Hypertension Morbid obesity ([facility]) Nephrotic syndrome 11/22/2022 PPH ( hemorrhage) Pulmonary emboli ([facility]) 10/2019 Request for sterilization 02/03/2020 Signed 02/03/2020 [place] Resident SLE (systemic lupus erythematosus) ([facility]) 11/28/2022 No data recorded No data recorded No data recorded Past Surgical History: Procedure Laterality Date REPEAT N/A 04/03/2019 Performed by Aquiles Abbott MD at [facility] OR REPEAT TUBAL LIGATION N/A 06/02/2020 Performed by John Person MD at [facility] OR D AND C SUCTION N/A 03/18/2018 Performed by Kat Jeffers MD at [facility] Family History Problem Relation Age of [...] min Stress: No Stress Concern Present (12/18/2022) [employer] [place] [employer] - Occupational Stress Questionnaire Feeling of Stress : Only a little Social Connections: Moderately Integrated (12/18/2022) Social Connection and Isolation Panel [NHANES] Frequency of Communication with Friends and Family: More than three times a week Frequency of Social Gatherings with Friends and Family: More than three times a week Attends Yazidi Services: More than 4 times per year [...] Risk (06/19/2023) Housing Instability Housing Instability: No Review of Systems Review of Systems Constitutional: Positive for malaise/fatigue. HENT: Positive for nosebleeds. Eyes: Positive for blurred vision and double vision. Cardiovascular: Positive for chest pain. Respiratory: Positive for shortness of breath. Endocrine: Negative. Hematologic/Lymphatic: Bruises/bleeds easily. Skin: Negative. Musculoskeletal: Positive for back pain, joint swelling and muscle weakness. Gastrointestinal: Positive for diarrhea. Genitourinary: Negative. Neurological: Positive for headaches, light-headedness and numbness. Psychiatric/Behavioral: The patient is nervous/anxious. Allergic/Immunologic: Positive for environmental allergies. Vascular: Negative. CARDIOVASCULAR: Please review HPI. Physical Examination General appearance: Alert, oriented and cooperative. In no acute distress. Skin: Warm and dry to touch. Head: Normocephalic, without obvious abnormality, atraumatic. Ears, Nose, Mouth, Throat: Throat clear without erythema or exudate. Dentition intact. Eyes: Conjunctivae unremarkable, EOM intact. Neck: No JVD, No carotid bruit. Neck supple, trachea midline. Respiratory: Clear to auscultation bilaterally, no use of accessory muscles. Cardiovascular: RRR with normal S1 and S2 with no murmurs. Gastrointestinal: Soft, non-tender. Bowel sounds normal. Musculoskeletal: No peripheral edema. Neurologic: Oriented to time, person and place, affect appropriate. No focal/major motor defects noted. Psychiatric: Appropriate mood, memory and judgement. VITAL SIGNS: BP 110/82 (BP Site: Left Arm, BP Postition: Sitting) Pulse 57 Ht 172.7 cm (5' 8 ) Wt 114.9 kg (253 lb 3.2 oz) LMP 04/30/2023 (Approximate) SpO2 97% BMI 38.50 kg/m Orders Placed or Reconciled This Encounter Medications allopurinoL (ZYLOPRIM) 100 mg tablet Sig: Take 1 tablet (100 mg total) by mouth in the morning. Medications Discontinued During This Encounter Medication Reason cyclobenzaprine (FLEXERIL) 10 mg tablet Therapy completed ondansetron ODT (ZOFRAN ODT) 4 mg disintegrating tablet Therapy completed IMPRESSIONS/PLAN 1. Systemic lupus erythematosus, unspecified SLE type, unspecified organ involvement status ([facility]) 2. Bilateral pulmonary embolism ([facility]) October 2019 3. Chest pain, unspecified type Overall, stable from a cardiac standpoint. Blood pressure heart rate are controlled. Atypical chest discomfort. Normal coronary CTA. Preserved ejection fraction echocardiogram. Continue current cardiac meds. No further cardiac testing warranted. She is going to speak with her son's project buyer about obtaining genetic testing. All questions and concerns addressed to the patient's satisfaction. Follow-up as needed. This note was created with the assistance of a speech recognition program. While intending to generate a timely document that accurately reflects the content of the visit, no guarantee can be provided that every grammatical or spelling mistake has been or will be identified or corrected. Thank you for your understanding! TODAYS ORDERS No orders of the defined types were placed in this encounter. FOLLOW UP Return if symptoms worsen or fail to improve. PCP: Billy Zelaya PA-C Referring Physician: Billy Zelaya PA-C [address] [place] [address] documented in this encounter [facility] 06-26-2023 Miscellaneous Notes Left message for patient to remind them to bring their most current medication list with them to their appointment. documented in this encounter [facility] 06-26-2023 Telephone encounter Note Left message for patient to remind them to bring their most current medication list with them to their appointment. [facility] 06-21-2023 Miscellaneous Notes Patient is almost out of medication. Appointment is 07/04/23 documented in this encounter [facility] 06-21-2023 Telephone encounter Note Patient is almost out of medication. Appointment is 07/04/23 [facility] 06-19-2023 Miscellaneous Notes Pt was returning my call to inform me she was in ED and may be admitted to hospital d/t sob and chest pain. I was following up to see how she was feeling. She had no question or concerns for our office at this time. documented in this encounter [facility] 06-19-2023 Telephone encounter Note Pt was returning my call to inform me she was in ED and may be admitted to hospital d/t sob and chest pain. I was following up to see how she was feeling. She had no question or concerns for our office at this time. [facility] 06-18-2023 Miscellaneous Notes Patient called wanting to speak with a nurse to notify office of everything that's been going on with cardiology, and update on upcoming procedures. tried to call pt she currently in [place] [facility] ed,she might try to call back documented in this encounter [facility] 06-18-2023 Telephone encounter Note Patient called wanting to speak with a nurse to notify office of everything that's been going on with cardiology, and update on upcoming procedures. [facility] 06-18-2023 Telephone encounter Note tried to call pt she currently in [place] [facility] ed,she might try to call back [facility] 06-14-2023 Miscellaneous Notes Blanca states that she would like to know the results of the blood work and, she did complete the stress test, she also states she has been having bad headaches,she is not take any tylenol for the pain. Mva Operator advised the patient that the nurse will be notified. [phone] documented in this encounter [facility] 06-14-2023 Telephone encounter Note Blanca states that she would like to know the results of the blood work and, she did complete the stress test, she also states she has been having bad headaches,she is not take any tylenol for the pain. Mva Operator advised the patient that the nurse will be notified. [phone] [facility] 06-13-2023 Miscellaneous Notes spoke with patient and confrim appt with Dr. Bain in [place] and will have labs done tomorrow documented in this encounter [facility] 06-13-2023 Telephone encounter Note spoke with patient and confrim appt with Dr. Bain in [place] and will have labs done tomorrow [facility] 06-11-2023 Miscellaneous Notes Blanca called and that she would to keep all of her doctors in the loop of what is going on with her. Blanca states that she has left ventricular hypertrophy and a cyst, she was to do a EKG ranulfo a chest Xray. Her EKG came back abnormal now she is seeing a life specialist and will be doing a stress test. She also states her PCP changed she her blood pressure medication. Blanca states that heart looked enlarged when she had it check a few years ago, but Dr. Bain told her it looked fine,yet her life specialist is telling her other espitia. Blanca states that she hopes this stress test will let he know what is really going with her heart, and she would like to speak with the nurse to give more details on what is going on. Blanca requested a refill on the Bumex 2 mg. Call back [phone] Patient called in concerned about metoprolol being prescribed by PCP. She would like to know if she should take this due to her kidney function she would like to know if she should be on a Casper or arb at this time. Med-list is current and patient is not monitoring BP at home Spoke with pt and she consulted cardiology and she stated they advised her to continue new medication at this time. She still expressed concerns, but will keep in touch with office about and questions that she may have documented in this encounter [facility] 06-11-2023 Telephone encounter Note Blanca called and that she would to keep all of her doctors in the loop of what is going on with her. Blanca states that she has left ventricular hypertrophy and a cyst, she was to do a EKG ranulfo a chest Xray. Her EKG came back abnormal now she is seeing a life specialist and will be doing a stress test. She also states her PCP changed she her blood pressure medication. Blanca states that heart looked enlarged when she had it check a few years ago, but Dr. Bain told her it looked fine,yet her life specialist is telling her other espitia. Blanca states that she hopes this stress test will let he know what is really going with her heart, and she would like to speak with the nurse to give more details on what is going on. lBanca requested a refill on the Bumex 2 mg. Call back [phone] [facility] 06-11-2023 Telephone encounter Note Patient called in concerned about metoprolol being prescribed by PCP. She would like to know if she should take this due to her kidney function she would like to know if she should be on a Casper or arb at this time. Med-list is current and patient is not monitoring BP at home [facility] 06-11-2023 Telephone encounter Note Spoke with pt and she consulted cardiology and she stated they advised her to continue new medication at this time. She still expressed concerns, but will keep in touch with office about and questions that she may have [facility] 06-06-2023 Miscellaneous Notes Images from the original note were not included. Irasema Corbin RN 06/06/2023 1:12 PM EST Back to Top Noted Gamal Franklin MD 06/06/2023 11:27 AM EST She is on that for noncardiac indications for pulmonary emboli will need either vascular Medicine to give the okay to hold or her primary care physician Irasema Corbin RN 06/06/2023 8:43 AM EST BD, med list includes Xarelto 20mg, do you want her to hold prior to procedure? Gamal Franklin MD 06/06/2023 8:35 AM EST Hyf-nf-myagtexw risk Irasema Corbin RN 06/06/2023 7:25 AM EST BD, FYI echo ordered 05/21/23 for PREOP - Abnormal EKG Likely secondary to left ventricular hypertrophy and hypertensive heart disease. I think repeating her echocardiogram would be my 1st step here. Presently she has significant echo findings for hypertensive heart disease at such a young age With moderate left ventricular hypertrophy, moderate dilated left atrium and grade 2 diastolic dysfunction. She is currently on Procardia and compliant with that medication. Blood pressure appears to be reasonably controlled today will definitely keep an eye on that. With a low threshold to titrate her Procardia echocardiogram does not show any significant changes from previous then would clear her at a trf-em-uneqlojl risk. She is able to do at least 4 metabolic equivalents in her daily life. LV 60-65%, mild wall thickness/hypertrophy LA - moderately dilated. Irasema Corbin RN 06/06/2023 1:42 PM EST Back to Top Echo results and BDs recommendations called and reviewed with patient. Pt mentions calling the [facility] office this morning d/t chest discomfort and BD ordered a nuc stress exe now scheduled for 06/14/23. Will hold off sending the Preop clearance until BD reviews stress results. Message sent to [facility] office to FYI. documented in this encounter [facility] 06-06-2023 Telephone encounter Note Images from the original note were not included. Irasema Corbin RN 06/06/2023 1:12 PM EST Back to Top Noted Gamal Franklin MD 06/06/2023 11:27 AM EST She is on that for noncardiac indications for pulmonary emboli will need either vascular Medicine to give the okay to hold or her primary care physician Irasema Corbin RN 06/06/2023 8:43 AM EST BD, med list includes Xarelto 20mg, do you want her to hold prior to procedure? Gamal Franklin MD 06/06/2023 8:35 AM EST Gny-mk-vwivhqbk risk Irasema Corbin RN 06/06/2023 7:25 AM EST BD, FYI echo ordered 05/21/23 for PREOP - Abnormal EKG Likely secondary to left ventricular hypertrophy and hypertensive heart disease. I think repeating her echocardiogram would be my 1st step here. Presently she has significant echo findings for hypertensive heart disease at such a young age With moderate left ventricular hypertrophy, moderate dilated left atrium and grade 2 diastolic dysfunction. She is currently on Procardia and compliant with that medication. Blood pressure appears to be reasonably controlled today will definitely keep an eye on that. With a low threshold to titrate her Procardia echocardiogram does not show any significant changes from previous then would clear her at a qei-yi-rmqbntac risk. She is able to do at least 4 metabolic equivalents in her daily life. LV 60-65%, mild wall thickness/hypertrophy LA - moderately dilated. [facility] Telephone encounter Note Irasema Corbin RN 06/06/2023 1:42 PM EST Back to Top Echo results and BDs recommendations called and reviewed with patient. Pt mentions calling the [facility] office this morning d/t chest discomfort and BD ordered a nuc stress exe now scheduled for 06/14/23. Will hold off sending the Preop clearance until BD reviews stress results. Message sent to [facility] office to FYI. [facility]23 Miscellaneous Notes Received p/c from pt. Has been in ER for chest pain 2/ ,2/,2/ for chest pain. Pt states pain gets [...] discomfort. Last saw Dr. Franklin. Any suggestions? Please order treadmill nuclear stress test for unstable angina Pt notified. Orders placed. Pt given central scheduling number to call and arrange ++++++++PREOP PENDING STRESS RESULTS++++++++++++ documented in this [facility]-06-[facility]23 Telephone encounter Note Received p/c from pt. Has been in [...] discomfort. Last saw Dr. Franklin. Any suggestions? [facility] 06-06-2023 Telephone encounter Note Please order treadmill nuclear stress test for unstable angina [facility] 06-06-2023 Telephone encounter Note Pt notified. Orders placed. Pt given central scheduling number to call and arrange [facility] Telephone encounter Note ++++++++PREOP PENDING STRESS RESULTS++++++++++++ [facility] 06-05-2023 Miscellaneous Notes Please ask the following questions to the [...] 5. PATIENT IS SCHEDULED ON/WITH: -06/19/2023 with Arianna Alexander [facility]-05-[facility]23 Telephone encounter Note Please ask the following questions to the [...] 5. PATIENT IS SCHEDULED ON/WITH: -06/19/2023 with Arianna Alexander [facility] 06-04-2023 Miscellaneous Notes Blanca called stated she went to the hospital yesterday in [place] she was having a bad flare and her heart was beating 100 bpm. She has her EMG scheduled on June 08 and her ECHO scheduled June 05. She also stated the life specialist wouldn't do anything for her until she gets her ECHO done. She ask if you can look at her chart from yesterday. Please advise. Thanks Blanca called back again was wondering if you can place and referral for EMG they stated she didn't need one. She is currently at the hospital again for chest pains she feels she needs one and doesn't know what's going on with her. She wants the EMG of her whole body??? Please advise. Thanks Will discuss the need for EMG when she come to the clinic as there might be no need for that ..Spoke with Blanca gave message from dr calle. Pt understood Pt calling back with wanting you to [...] other medical dx.Please advise [facility] Telephone encounter Note Blanca called stated she went to the hospital yesterday in [place] she was having a bad flare and her heart was beating 100 bpm. She has her EMG scheduled on June 08 and her ECHO scheduled June 05. She also stated the life specialist wouldn't do anything for her until she gets her ECHO done. She ask if you can look at her chart from yesterday. Please advise. Thanks [facility] 06-04-2023 Telephone encounter Note Blanca called back again was wondering if you can place and referral for EMG they stated she didn't need one. She is currently at the hospital again for chest pains she feels she needs one and doesn't know what's going on with her. She wants the EMG of her whole body??? Please advise. Thanks [facility] 06-04-2023 Telephone encounter Note Will discuss the need for EMG when she come to the clinic as there might be no need for that [facility] 06-04-[facility]23 Telephone encounter Note ..Spoke with Blanca gave message from dr calle. Pt understood [facility] 06-04-2023 Telephone encounter Note Pt calling back with wanting you to [...] kidneys and her other medical dx.Please advise [facility] 05-18-2023 Miscellaneous Notes Left message for patient to remind them to bring their most current medication list with them to their appointment. documented in this encounter [facility] 05-18-2023 Telephone encounter Note Left message for patient to remind them to bring their most current medication list with them to their appointment. [facility] 05-16-2023 Miscellaneous Notes Patient called stating she needs a refill of prednisone 20 mg. documented in this encounter [facility] 05-16-2023 Telephone encounter Note Patient called stating she needs a refill of prednisone 20 mg. [facility] 04-25-2023 History of Present illness Narrative Images [...] 04/24/2023 3:33 PM EST To: Juan C Valle MD Subject: surgical clearance DR. [facility] CALLED TO CONFIRM HER SURGERY DATE FOR CLEARANCE IS 05/18/23 documented in this encounter [facility] 09-05-2022 Hospital Discharge instructions Patient Education 09/05/2022 [...] Treatment for this condition includes: Antibiotic medicine. Znrv-lwu-qkbrffa medicines to treat discomfort. Drinking enough water [...] Follow these instructions at home: Medicines Take iwja-zoj-vtnnmwy and prescription medicines only as told by [...] provider. Document Revised: 11/26/2020 Document Reviewed: 11/26/2020 [employer] Patient Education 2022 [employer]. Follow Up Care 08/15/2022 10:04:33 With:CYNTHIA GALLARDO PA-C, URL Address: [address] [place] [address]. [place] [address] Business (1) When:6 months [facility] 08-10-2022 Hospital Discharge instructions Patient Education 08/10/2022 [...] powder, vinegar, hot sauces, and barbecue sauce. ?[place] fruit juices and citrus fruits, such as oranges, shirley, and limes. ?Tomato-based foods, such as red sauce, chili, salsa, and pizza with red sauce. ?Fried and fatty foods, such as donuts, lebanese fries, potato chips, and high-fat dressings. ?High-fat [...] to any changes in your symptoms. Take ikao-ccj-dedwrgb and prescription medicines only as told by [...] you have new or worsening symptoms. Take uadk-gqo-gxmwjlf and prescription medicines only as told by [...] 01/24/2006 Document Revised: 10/23/2018 Document Reviewed: 10/23/2018 [employer] Patient Education 2020 [employer]. 08/10/2022 11:48:18 Gastritis, Adult Gastritis, Adult Gastritis [...] medicines. These include steroids, antibiotics, and some htyp-tgq-wzslmvb medicines, such as aspirin or ibuprofen. Having [...] Follow these instructions at home: Medicines Take gqfo-dgo-fwxoffl and prescription medicines only as told by [...] 04/10/2002 Document Revised: 09/03/2018 Document Reviewed: 09/03/2018 [employer] Patient Education 2020 [employer] Follow Up Care 07/24/2022 08:58:51 With:Katrin Resendiz CNP Address: When:3 months [facility] 07-11-2022 Evaluation + Plan note Extrac stephanie from: Title:CSB GA Author:Brett Prince MD Date:07/11/22 Plan [place] [employer] Anesthesi[employer] (ASA) physical status classification: Class III. Anesthetic Preoperative Plan: Anesthesia General. Future Appointments Appointment Date:07/17/2022 11:40:00 AM Scheduled Provider:Miki Mauricio MD Location:[facility] Appointment Type: Post Op 15 [facility]03-14[facility]2023 Hospital Discharge instructions Patient Education 07/11/2022 09:54:16 [...] and water are not available, use hand cardiac catheterization technologist. ?Change your dressing as told by your [...] health care provider approves. General instructions Take hjep-jdp-wkjiyhv and prescription medicines only as told by your health care provider. To prevent or treat constipation while you are taking prescription pain medicine, your health care provider may recommend that you: ?Drink enough fluid to keep your urine clear or pale yellow. ?Take vlss-opf-xfolaex or prescription medicines. ?Eat foods that are [...] 04/16/2006 Document Revised: 03/29/2018 Document Reviewed: 10/02/2016 [employer] Patient Education 2019 [employer] Follow Up Care 06/26/2022 11:12:42 With:Miki Mauricio Address: [facility] [address] [address] [phone] Business (1) When: Unknown Comments:Appointment has already been scheduled [facility]07-01-2020 Evaluation note* Diagnosis Systemic lupus erythematosus, unspecified SLE type, unspecified organ involvement status ([facility] Primary Bilateral pulmonary embolism (CMS-HCC) October 2019 Other pulmonary embolism and infarction Chest pain, unspecified type [id number] note* Diagnosis Bilateral pulmonary embolism (CMS-HCC) October 2019- Primary Other pulmonary embolism and infarction History of DVT (deep vein thrombosis) Preoperative clearance Unspecified pre-operative examination [id number] note* Diagnosis Bilateral pulmonary embolism (CMS-HCC) October 2019- Primary Other pulmonary embolism and infarction Personal history of PE (pulmonary embolism) Personal history of venous thrombosis and embolism Dyspnea on exertion Other dyspnea and respiratory abnormality Environmental allergies Other allergy, other than to medicinal agents [facility] [id number] Evaluation note* Diagnosis Pre-op examination- Primary Chronic hypertension Bilateral pulmonary embolism (CMS-HCC) October 2019 Other pulmonary embolism and infarction Dyspnea on exertion Other dyspnea and respiratory abnormality Systemic lupus erythematosus, unspecified SLE type, unspecified organ involvement status ([facility]) [facility] + Plan note Future Appointments Appointment Date:03/03/2022 12:45:00 PM Scheduled Provider: Location:[facility] Appointment Type:Surgery PAT COVID Testing Appointment Date:03/10/2022 01:00:00 PM Scheduled Provider: Location:[facility] Appointment Type:Surgery FT [facility] Evaluation + Plan note Future Appointments Appointment Date:03/13/2023 02:30:00 PM Scheduled Provider:CYNTHIA GALLARDO PA-C Location:[facility] Appointment Type:URO Office Visit [facility] evaluation + Plan note Future Appointments Appointment Date:01/29/2024 11:00:00 AM Scheduled Provider:CYNTHIA GALLARDO PA-C Location:[facility] Appointment Type:URO Office Visit [facility] Evaluation noteNo assessment information available [facility] Work Phone: evaluipcum note* Diagnosis Intrauterine device surveillance Pelvic pain in female Unspecified symptom associated with female genital organs documented in this encounter [facility]* Diagnosis Pelvic pain in female- Primary Unspecified symptom associated with female genital organs documented in this encounter [facility]* Diagnosis Right foot pain- Primary Pain in soft tissues of limb 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, 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 Equinus contracture of right ankle Instability of right ankle joint Difficulty walking Difficulty in walking documented in this encounter [facility]* Diagnosis Stage IV lupus nephritis (WHO) ([facility]) [facility] [employer] System[facility]* Diagnosis Encounter to discuss procedure Pelvic pain in female Unspecified symptom associated with female genital organs H/O: section Other postprocedural status Abnormal uterine bleeding (AUB) documented in this encounter [facility]* Diagnosis Well woman exam with routine gynecological exam Routine gynecological examination [facility] [facility] Diagnosis Migraine without aura and without status migrainosus, not intractable- Primary [facility]* Diagnosis BMI 39.0-39.9,adult- Primary [facility]* Diagnosis Stage IV lupus nephritis (WHO) ([facility] Primary Systemic lupus erythematosus, unspecified SLE type, unspecified organ involvement status ([facility]) Encounter for chcf use of mycophenolate mofetil FPC systemic steroid user [facility]* Diagnosis BMI 39.0-39.9,adult documented [facility]* Diagnosis Pre-op evaluation Pelvic pain in female Unspecified symptom associated with female genital organs Abnormal uterine bleeding (AUB) [facility] Migraine without aura and without status migrainosus, not intractable- Primary Daily headache Fibromyalgia Unspecified myalgia and myositis documented [facility]* Diagnosis Stage IV lupus nephritis (WHO) ([facility]) Systemic lupus erythematosus, unspecified SLE type, unspecified organ involvement status ([facility]) Encounter for technician terminal and repeater use of mycophenolate mofetil documented [facility]* Diagnosis Angina pectoris, unstable ([facility] Primary Intermediate coronary syndrome documented in [facility] encounter [facility]* Diagnosis Stage IV lupus nephritis (WHO) ([facility] Primary Stage 3 chronic kidney disease, unspecified whether stage 3a or 3b CKD ([facility]) [facility]* Diagnosis BMI 39.0-39.9,adult- Primary documented [facility]* Diagnosis Bilateral pulmonary embolism ([facility] Primary Other pulmonary embolism and infarction documented in this encounter [facility]* Diagnosis Daily headache- Primary Migraine without aura and without status migrainosus, not intractable Vision changes Uncontrolled hypertension Fibromyalgia Unspecified myalgia and myositis documented in this encounter [facility]* Diagnosis Systemic lupus erythematosus, unspecified SLE type, unspecified organ involvement status ([facility] Primary Stage IV lupus nephritis (WHO) ([facility]) Encounter for chcf use of mycophenolate mofetil FPC systemic steroid user Fibromyalgia Unspecified myalgia and myositis documented in [facility] encounter [facility]* Diagnosis Lupus nephritis ([facility] Primary Systemic lupus erythematosus Essential hypertension Unspecified essential hypertension documented in this encounter [facility]* Diagnosis Stage IV lupus nephritis (WHO) ([facility]) documented [facility]* Diagnosis Tinnitus of left ear- Primary Stage IV lupus nephritis (WHO) ([facility]) [facility] Diagnosis Tinnitus, bilateral- Primary Unspecified tinnitus 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 [facility] Diagnosis Lupus nephritis, ISN/RPS class IV ([facility] Primary [facility]* Diagnosis Lupus (systemic lupus erythematosus) ([facility] Primary Systemic lupus erythematosus Acute nonintractable headache, unspecified headache type Headache documented in [facility]* Diagnosis Systemic lupus erythematosus, unspecified SLE type, unspecified organ involvement status ([facility] Primary Stage IV lupus nephritis (WHO) ([facility]) Fibromyalgia Unspecified myalgia and myositis Encounter for technician terminal and repeater use of mycophenolate mofetil documented [facility] this [facility]* Diagnosis Stage IV lupus nephritis (WHO) ([facility]) Systemic lupus erythematosus, unspecified SLE type, unspecified organ involvement status ([facility]) documented [facility]* Diagnosis Migraine without aura and without status migrainosus, not intractable- Primary Hemiplegic migraine without status migrainosus, not intractable Fibromyalgia Unspecified myalgia and myositis documented [facility]* Diagnosis BMI 39.0-39.9,adult- Primary documented in [facility]* Diagnosis Systemic lupus erythematosus, unspecified SLE type, unspecified organ involvement status ([facility]) Stage IV lupus nephritis (WHO) ([facility]) Fibromyalgia Unspecified myalgia and myositis Encounter for technician terminal and repeater use of mycophenolate mofetil [facility] Diagnosis Systemic lupus erythematosus, unspecified SLE type, unspecified organ involvement status ([facility] Primary Stage IV lupus nephritis (WHO) ([facility]) Fibromyalgia Unspecified myalgia and myositis Encounter for chcf use of mycophenolate mofetil [facility] Diagnosis Lupus nephritis, ISN/RPS class IV ([facility])- Primary [facility] Narrative No data available for this section [facility] Hospital Discharge instructions No data available for this section [facility] InstructionsNot on filedocumented in [...] note No data available for this section [facility] Reason for referral (narrative)* Consultation (Routine) - Pending Review Specialty Diagnoses / Procedures Referred By Noris lassiter Referred To Contact Endocrinology, Diabetes & Metabolism Diagnoses BMI 39.0-39.9,adult Sherman Calle MD [address] [facility] [address] [place] [address] [facility] [address] [place] [address] Referral ID Status Reason Start Date Expiration Date Visits Requested Visits Authorized [id number] Pending Review Specialty Services Required 08/28/2023 08/27/2024 1 [facility] Consultation (Routine) - Pending Review Specialty Diagnoses / Procedures Referred By Noris t Referred To Contact Nutrition Diagnoses BMI 39.0-39.9,adult Sherman Calle MD [address] [address] Yazmin Vieira, RD [address] [place] [address] Referral ID Status Reason Start Date Expiration Date V isits Requested Visits Authorized [id number] Pending Review 07/31/2023 07/30/2024 1 1 [facility] Summary Purpose Family History No Family History [...] FoundNo Family History Records Found Advance Directives Date Activated Date Inactivated Comments 01/31/2024 3:30 [...] 8:24 PM Date Activated Date Inactivated Comments 06/19/2023 2:45 PM 06/21/2023 12:58 PM Date Activated Date Inactivated Comments 12/17/2022 9:01 PM 12/19/2022 11:22 AM Date Activated Date Inactivated Comments 11/22/2022 5:10 PM 12/04/2022 8:24 PM Date Activated Date Inactivated Comments 06/09/2020 10:32 PM 06/16/2020 12:01 AM Date Activated Date Inactivated Comments 06/02/2020 11:25 AM 06/05/2020 5:47 PM Latest [...] Code 05/25/2020 1:53 PM 05/26/2020 2:43 PM Date Activated Date Inactivated Comments 06/19/2023 2:45 PM 06/21/2023 12:58 PM Date Activated Date Inactivated Comments 12/17/2022 9:01 PM 12/19/2022 11:22 AM Date Activated Date Inactivated Comments 11/22/2022 5:10 PM 12/04/2022 8:24 PM Date Activated Date Inactivated Comments 06/09/2020 10:32 PM 06/16/2020 12:01 AM Date Activated Date Inactivated Comments 06/02/2020 11:25 AM 06/05/2020 5:47 PM Latest [...] 5:47 PM Date Activated Date Inactivated Comments 06/30/2024 10:00 PM 07/02/2024 5:06 PM Date Activated Date Inactivated Comments 01/31/2024 3:30 PM 02/05/2024 7:09 PM Date Activated Date Inactivated Comments 01/31/2024 12:08 AM 01/31/2024 3:21 PM Date Activated Date Inactivated Comments 06/19/2023 2:45 PM 06/21/2023 12:58 PM Date Activated Date Inactivated Comments 12/17/2022 9:01 PM 12/19/2022 11:22 AM Date Activated Date Inactivated Comments 06/30/2024 10:00 PM 07/02/2024 5:06 PM Date Activated Date Inactivated Comments 01/31/2024 3:30 PM 02/05/2024 7:09 PM Date Activated Date Inactivated Comments 01/31/2024 12:08 AM 01/31/2024 3:21 PM Date Activated Date Inactivated Comments 06/19/2023 2:45 PM 06/21/2023 12:58 PM Date Activated Date Inactivated Comments 12/17/2022 9:01 PM 12/19/2022 11:22 AM Reason for Referral Specialty Diagnoses / Procedures Referred By Contac t Referred To Contact Procedures Discharge Follow-Up Pat Hawk MD [address] [place] [phone] Referral ID Status Reason Start Date Expiration Date V isits Requested Visits Authorized [id number] Pending Review 02/05/2024 02/04/2025 1 1 Specialty Diagnoses / Procedures Referred By Contac t Referred To Contact Diagnoses Acute nonintractable headache, unspecified headache type Procedures Follow-up with primary care provider Pat Hawk MD [address] [place] [address] Referral ID Status Reason Start Date Expiration Date V isits Requested Visits Authorized [id number] Pending Review 02/05/2024 02/04/2025 1 1 Specialty Diagnoses / Procedures Referred By Contac t Referred To Contact Procedures Adult diet Pat Hawk MD [address] [place] [phone] Referral ID Status Reason Start Date Expiration Date V isits Requested Visits Authorized [id number] Pending Review 02/05/2024 02/04/2025 1 1 Specialty Diagnoses / Procedures Referred By Contac t Referred To Contact Radiology Diagnoses Tinnitus of left ear Procedures MR brain IAC with and without contrast Jeff Toro MD [address] [facility] [address] [place] [address] Referral ID Status Reason Start Date Expiration Date V isits Requested Visits Authorized [id number] Pending Review 11/28/2023 11/27/2024 1 1 Specialty Diagnoses / Procedures Referred By Contac t Referred To Contact Diagnoses Fibromyalgia Sherman Calle MD [address] [facility] [address] [place] [address] Referral ID Status Reason Start Date Expiration Date Visits Re quested Visits Authorized [id number] Closed 1 1 Specialty Diagnoses / Procedures Referred By Contac t Referred To Contact Diagnoses Daily headache Migraine without aura and without status migrainosus, not intractable Fibromyalgia Arianna Alexander PA-C [address] [place] [address] Referral ID Status Reason Start Date Expiration Date V isits Requested Visits Authorized [id number] Pending Review 1 1 Specialty Diagnoses / Procedures Referred By Contac t Referred To Contact Diagnoses Migraine without aura and without status migrainosus, not intractable Uncontrolled hypertension Arianna Alexander PA-C [address] [place] [address] Referral ID Status Reason Start Date Expiration Date V isits Requested Visits Authorized [id number] Pending Review 1 1 Specialty Diagnoses / Procedures Referred By Contac t Referred To Contact Radiology Diagnoses Daily headache Migraine without aura and without status migrainosus, not intractable Vision changes Procedures MR brain without contrast Arianna Alexander PA-C [address] [place] [address] Referral ID Status Reason Start Date Expiration Date V isits Requested Visits Authorized [id number] Pending Review 07/05/2023 07/04/2024 1 1 Specialty Diagnoses / Procedures Referred By Contac t Referred To Contact Diagnoses Angina pectoris, unstable ([facility]) Procedures Nuc stress exercise Gamal Franklin MD [address] [place] [address] Referral ID Status Reason Start Date Expiration Date V isits Requested Visits Authorized [id number] Pending Review 06/06/2023 06/05/2024 5 5 Specialty Diagnoses / Procedures Referred By Contac t Referred To Contact Diagnoses Stage IV lupus nephritis (WHO) ([facility]) Sherman Calle MD [address] [address] Referral ID Status Reason Start Date Expiration Date Visits Re quested Visits Authorized [id number] Closed 1 1 Additional Source Comments Patient Care team informatio n (unrecognized section and content) Team Status: Inactive Member Role Status Dates Mayco Albright Attending Provider Active Start: 2023 End: August 16, 2023 Brief Writer Relationship Specialty Start Date End Date Cheli Jennings, FIELD ATTENDANT-PRECIPITATE WASHER [address] [place] [phone] PCP - General Family Medicine 01/24/24 Brief Writer Relationship Specialty Start Date End Date Cheli Jennings NP [address] [place] [address] Referring Physician Family Medicine 11/19/23 Brief Writer Relationship Specialty Start Date End Date Cheli Jennings NP [address] [place] [address] Referring Physician Family Medicine 11/19/23 Brief Writer Relationship Specialty Start Date End Date Cheli Jennings NP [address] [place] [address] Referring Physician Family Medicine 11/19/23 Brief Writer Relationship Specialty Start Date End Date Cheli Jennings NP [address] [place] [address] [phone] Referring Physician Family Medicine 11/19/23 Brief Writer Relationship Specialty Start Date End Date Cheli Jennings, CURRICULUM DIRECTOR [address] [place] [address] Referring Physician Family Medicine 11/19/23 Brief Writer Relationship Specialty Start Date End Date Cheli Jennings, CURRICULUM DIRECTOR [address] [place] [address] Referring Physician Family Medicine 11/19/23 Brief Writer Relationship Specialty Start Date End Date Cheli Jennings, FIELD ATTENDANT-PRECIPITATE WASHER [address] [place] [phone] PCP - General Family Medicine 01/24/24 Brief Writer Relationship Specialty Start Date End Date Cheli Jennings, FIELD ATTENDANT-PRECIPITATE WASHER [address] [place] [phone] PCP - General Family Medicine 01/24/24 Brief Writer Relationship Specialty Start Date End Date Billy Zelaya PA-C [address] [place] [address] [phone] PCP - General Physician Unified Communications Engineer 06/05/23 Brief Writer Relationship Specialty Start Date End Date Billy Zelaya PA-C [address] [place] [address] [phone] PCP - General Physician Unified Communications Engineer 03/17/23 Brief Writer Relationship Specialty Start Date End Date Billy Zelaya PA-C [address] [place] [address] [phone] PCP - General Physician Unified Communications Engineer 06/05/23 Brief Writer Relationship Specialty Start Date End Date Billy Zelaya PA-C [address] [place] [address] PCP - General Physician Unified Communications Engineer 06/05/23 Brief Writer Relationship Specialty Start Date End Date Billy Zelaya PA-C [address] [place] [address] PCP - General Physician Unified Communications Engineer 06/05/23 Brief Writer Relationship Specialty Start Date End Date Billy Zelaya PA-C [address] [place] [phone] PCP - General Physician Unified Communications Engineer 06/05/23 Brief Writer Relationship Specialty Start Date End Date Billy Zelaya PA-C [address] [place] [address] PCP - General Physician Unified Communications Engineer 06/05/23 Brief Writer Relationship Specialty Start Date End Date Billy Zelaya PA-C [address] [place] [phone] PCP - General Physician Unified Communications Engineer 05/10/23 Brief Writer Relationship Specialty Start Date End Date Cheli Jennings, FIELD ATTENDANT-PRECIPITATE WASHER [address] [place] [address] PCP - General Family Medicine 09/06/23 Brief Writer Relationship Specialty Start Date End Date Cheli Jennings FIELD ATTENDANT-PRECIPITATE WASHER [address] [place] [address] PCP - General Family Medicine 01/24/24 Brief Writer Relationship Specialty Start Date End Date Cheli Jennings FIELD ATTENDANT-PRECIPITATE WASHER [address] [place] [address] PCP - General Family Medicine 09/06/23 Brief Writer Relationship Specialty Start Date End Date Billy Zelaya PA-C [address] [place] [phone] PCP - General Physician Unified Communications Engineer 05/10/23 Brief Writer Relationship Specialty Start Date End Date Cheli Jennings, FIELD ATTENDANT-PRECIPITATE WASHER [address] [place] [address] 26719 PCP - General Family Medicine 09/06/23 Brief Writer Relationship Specialty Start Date End Date Cheli Jennings, FIELD ATTENDANT-PRECIPITATE WASHER [address] [place] [phone] PCP - General Family Medicine 09/06/23 Brief Writer Relationship Specialty Start Date End Date Cheli Jennings, FIELD ATTENDANT-PRECIPITATE WASHER [address] [place] [address] 49616 PCP - General Family Medicine 09/06/23 Brief Writer Relationship Specialty Start Date End Date Cheli Jennings, FIELD ATTENDANT-PRECIPITATE WASHER [address] [place] [address] [phone] PCP - General Family Medicine 09/06/23 Brief Writer Relationship Specialty Start Date End Date Cheli Jennings, FIELD ATTENDANT-PRECIPITATE WASHER [address] [place] [address] 524[address] PCP - General Family Medicine 09/06/23 Brief Writer Relationship Specialty Start Date End Date Billy Zelaya PA-C [address] [place] [phone] PCP - General Physician Unified Communications Engineer 06/05/23 Brief Writer Relationship Specialty Start Date End Date Billy Zelaya PA-C [address] [place] [phone] PCP - General Physician Unified Communications Engineer 06/05/23 Brief Writer Relationship Specialty Start Date End Date Billy Zelaya PA-C [address] [place] [address] [phone] PCP - General Physician Unified Communications Engineer 06/05/23 Brief Writer Relationship Specialty Start Date End Date Billy Zelaya PA-C [address] [place] [address] [phone] PCP - General Physician Unified Communications Engineer 06/05/23 Brief Writer Relationship Specialty Start Date End Date Billy Zelaya PA-C [address] [place] [phone] PCP - General Physician Unified Communications Engineer 06/05/23 Brief Writer Relationship Specialty Start Date End Date Billy Zelaya PA-C [address] [place] [address] [phone] PCP - General Physician Unified Communications Engineer 06/05/23 Brief Writer Relationship Specialty Start Date End Date Billy Zelaya PA-C [address] [place] [address] [phone] PCP - General Physician Unified Communications Engineer 06/05/23 Brief Writer Relationship Specialty Start Date End Date Cheli Jennings, TRENTON-PRECIPITATE WASHER [address] [place] [address] 32968 PCP - General Family Medicine 09/06/23 Brief Writer Relationship Specialty Start Date End Date Billy Zelaya PA-C [address] [place] [address] [phone] PCP - General Physician Unified Communications Engineer 06/05/23 Brief Writer Relationship Specialty Start Date End Date Billy Zelaya PA-C [address] [place] [address] PCP - General Physician Unified Communications Engineer 06/05/23 Brief Writer Relationship Specialty Start Date End Date Billy Zelaya PA-C [address] [place] [address] PCP - General Physician Unified Communications Engineer 06/05/23 Brief Writer Relationship Specialty Start Date End Date Billy Zelaya PA-C [address] [place] [address] PCP - General Physician Unified Communications Engineer 06/05/23 Brief Writer Relationship Specialty Start Date End Date Billy Zelaya PA-C [address] [place] [address] PCP - General Physician Unified Communications Engineer 06/05/23 Brief Writer Relationship Specialty Start Date End Date Billy Zelaya PA-C [address] [place] [phone] PCP - General Physician Unified Communications Engineer 06/05/23 Brief Writer Relationship Specialty Start Date End Date Billy Zelaya PA-C [address] [place] [address] PCP - General Physician Unified Communications Engineer 06/05/23 Brief Writer Relationship Specialty Start Date End Date Billy Zelaya PA-C [address] [place] [address] PCP - General Physician Unified Communications Engineer 06/05/23 Brief Writer Relationship Specialty Start Date End Date Billy Zelaya PA-C [address] [place] [address] PCP - General Physician Unified Communications Engineer 06/05/23 Brief Writer Relationship Specialty Start Date End Date Billy Zelaya PA-C [address] [place] [address] PCP - General Physician Unified Communications Engineer 06/05/23 Brief Writer Relationship Specialty Start Date End Date Billy Zelaya PA-C [address] [place] [address] [phone] PCP - General Physician Unified Communications Engineer 06/05/23 Brief Writer Relationship Specialty Start Date End Date Billy Zelaya PA-C [address] [place] [address] 40[address] PCP - General Physician Unified Communications Engineer 06/05/23 Brief Writer Relationship Specialty Start Date End Date Billy Zelaya PA-C [address] [place] [address] [phone] PCP - General Physician Unified Communications Engineer 06/05/23 Brief Writer Relationship Specialty Start Date End Date Billy Zelaya PA-C [address] [place] [address] [phone] PCP - General Physician Unified Communications Engineer 06/05/23 Brief Writer Relationship Specialty Start Date End Date Cheli Jennings APRN-PRECIPITATE WASHER [address] [place] [address] 10323 PCP - General Family Medicine 11/12/23 Brief Writer Relationship Specialty Start Date End Date Cheli Jennings APRN-PRECIPITATE WASHER [address] [place] [address] [phone] PCP - General Family Medicine 11/12/23 Brief Writer Relationship Specialty Start Date End Date Billy Zelaya PA-C [address] [place] [address] [phone] PCP - General Physician Unified Communications Engineer 06/05/23 Brief Writer Relationship Specialty Start Date End Date Billy Zelaya PA-C [address] [place] [address] [phone] PCP - General Physician Unified Communications Engineer 06/05/23 Brief Writer Relationship Specialty Start Date End Date Cheli Jennings FIELD ATTENDANT-PRECIPITATE WASHER [address] [place] [address] [phone] PCP - General Family Medicine 11/12/23 Brief Writer Relationship Specialty Start Date End Date Cheli Jennings FIELD ATTENDANT-PRECIPITATE WASHER [address] [place] [address] [phone] PCP - General Family Medicine 11/12/23 Brief Writer Relationship Specialty Start Date End Date Cheli Jennings FIELD ATTENDANT-PRECIPITATE WASHER [address] [place] [address] 44308 PCP - General Family Medicine 01/24/24 Brief Writer Relationship Specialty Start Date End Date Cheli Jennings FIELD ATTENDANT-PRECIPITATE WASHER [address] [place] [address] 10174 PCP - General Family Medicine 01/24/24 Brief Writer Relationship Specialty Start Date End Date Cheli Jennings FIELD ATTENDANT-PRECIPITATE WASHER [address] [place] [address] [phone] PCP - General Family Medicine 01/24/24 Brief Writer Relationship Specialty Start Date End Date Cheli Jennings FIELD ATTENDANT-PRECIPITATE WASHER [address] [place] [id number] PCP - General Family Medicine 11/12/23 Brief Writer Relationship Specialty Start Date End Date Carmine, Cheli, FIELD ATTENDANT-PRECIPITATE WASHER [address] [place] [address], [place] [address] PCP - General Family Medicine 01/24/24 Brief Writer Relationship Specialty Start Date End Date Carmine Cheli, FIELD ATTENDANT-PRECIPITATE WASHER [address] [place] [address], [place] [address] PCP - General Family Medicine 01/24/24 Brief Writer Relationship Specialty Start Date End Date Cheli Jennings, FIELD ATTENDANT-PRECIPITATE WASHER [address] [place] [address], [place] [address] PCP - General Family Medicine 01/24/24 Brief Writer Relationship Specialty Start Date End Date Cheli Jennings, FIELD ATTENDANT-PRECIPITATE WASHER [address] [place] [address], [place] [address] PCP - General Family Medicine 11/12/23 Brief Writer Relationship Specialty Start Date End Date Cheli Jennings, FIELD ATTENDANT-PRECIPITATE WASHER [address] [place] [address], [place] [address] PCP - General Family Medicine 11/12/23 Brief Writer Relationship Specialty Start Date End Date Cheli Jennings, FIELD ATTENDANT-PRECIPITATE WASHER [address] [place] [address], [place] [address] PCP - General Family Medicine 01/24/24 Brief Writer Relationship Specialty Start Date End Date Cheli Jennings, FIELD ATTENDANT-PRECIPITATE WASHER [address] [place] [address], [place] [address] PCP - General Family Medicine 01/24/24 Brief Writer Relationship Specialty Start Date End Date Cheli Jennings, FIELD ATTENDANT-PRECIPITATE WASHER [address] [place] [address], [place] [address] PCP - General Family Medicine 01/24/24 Brief Writer Relationship Specialty Start Date End Date Cheli Jennings, CURRICULUM DIRECTOR [address] [place] [address] Referring Physician Family Medicine 11/19/23 Brief Writer Relationship Specialty Start Date End Date Cheli Jennings, CURRICULUM DIRECTOR [address] [place] [address] Referring Physician Family Medicine 11/19/23 Brief Writer Relationship Specialty Start Date End Date Cheli Jennings FIELD ATTENDANT-PRECIPITATE WASHER [address] [place] [address] PCP - General Family Medicine 06/28/24 Brief Writer Relationship Specialty Start Date End Date Cheli Jennings FIELD ATTENDANT-PRECIPITATE WASHER [address] [place] [address] PCP - General Family Medicine 06/28/24 Brief Writer Relationship Specialty Start Date End Date Cheli Jennings FIELD ATTENDANT-PRECIPITATE WASHER [address] [address] PCP - General Family Medicine 06/28/24 Brief Writer Relationship Specialty Start Date End Date Cheli Jennings FIELD ATTENDANT-PRECIPITATE WASHER [address] [place] [address] PCP - General Family Medicine 06/28/24 Brief Writer Relationship Specialty Start Date End Date Cheli Jennings FIELD ATTENDANT-PRECIPITATE WASHER [address] [place] [address] PCP - General Family Medicine 06/28/24 INFORMATION SOURCE (unrecogn ized section and content) DATE CREATED AUTHOR 03/23/2022 [facility] DATE CREATED AUTHOR AUTHOR'S ORGANIZ ATION 02/12/2023 [facility] DATE CREATED AUTHOR AUTHOR'S ORGANIZ ATION 06/11/2023 [facility] DATE CREATED AUTHOR AUTHOR'S ORGANIZ ATION 07/01/2023 [facility] DATE CREATED AUTHOR AUTHOR'S ORGANIZ ATION 08/03/2023 [facility] DATE CREATED AUTHOR AUTHOR'S ORGANIZ ATION 08/22/2023 [facility] DATE CREATED AUTHOR AUTHOR'S ORGANIZ ATION 12/10/2023 [facility] DATE CREATED AUTHOR AUTHOR'S ORGANIZ ATION 03/20/2024 [facility] DATE CREATED AUTHOR AUTHOR'S ORGANIZ ATION 04/12/2024 [facility] DATE CREATED AUTHOR AUTHOR'S ORGANIZ ATION 04/15/2024 [facility] DATE CREATED AUTHOR AUTHOR'S ORGANIZ ATION 06/12/2024 [facility] DATE CREATED AUTHOR AUTHOR'S ORGANIZ ATION 06/27/2024 Ari Madera [facility] DATE CREATED AUTHOR AUTHOR'S ORGANIZ ATION 07/10/2024 [facility] Goals (unrecognized section and content) Goals may be documented in a n alternate section Reason for Visit (unrecogniz ed section and content) Reason Onset Date Comments Med Refill 03/10/2024 Reason Comments IUD check Reason Comments Flat Foot Pt presents today fo r BL flat feet, she has been going to the gym but her Rt foot will become bothersome, feeling like it is sprained. SS: 10 Reason Comments discuss surgery Reason Comments Well Women Visit Reason Onset Date Comments 08/13/24 ARIANNA ALEXANDER RESCHEDULE 06/06/2024 Reason Onset Date Comments medication interaction 08/17/2023 Reason Comments Med Refill Reason Comments MNT - Individual Initial; wt loss Specialty Diagnoses / Procedures Referred By Noris t Referred To Contact Endocrinology, Diabetes & Metabolism Diagnoses BMI 39.0-39.9,adult Sherman Calle MD [address] [address] [facility] [address] [facility] [address] [place] [address] Referral ID Status Reason Start Date Expiration Date Visits Requested Visits Authorized [id number] Pending Review Specialty Services Required 08/28/2023 08/27/2024 1 1 Reason Comments Pre-op Visit Pt present today for pre operative visit. Reason Comments Follow-up Patient is here toda y for follow up on Daily headache Reason Onset Date Comments Med Refill 09/11/2023 Reason Onset Date Comments Appointment 10/12/2023 Reason Onset Date Comments Cardiac Clearance 06/06/2023 Reason Comments Follow-up EST PT IP TTH HTN AB N EKG Reason Onset Date Comments Surgical Or Dental Clearance 07/03/2023 Reason Comments New Patient Specialty Diagnoses / Procedures Referred By Noris Referred To Contact Neurology Diagnoses Nonintractable headache, unspecified chronicity pattern, unspecified headache type Billy Zelaya, JESSENIAC [address] [place] [address] James Ha MD [address] [place] [address], [facility] [place] [address] Referral ID Status Reason Start Date Expiration Date Visits Requested Visits Authorized [id number] Pending Review Specialty Services Required 05/30/2023 05/29/2024 1 1 Reason Onset Date Comments Prior Authorization 07/13/2023 Reason Comments Tinnitus Left Specialty Diagnoses / Procedures [facility] Referred To Contact Otolaryngology Diagnoses Tinnitus of left ear Britni Whitehead MD [address] [place] [address] [place] [address] Referral ID Status Reason Start Date Expiration Date Visits Requested Visits Authorized [id number] Pending Review Specialty Services Required 11/02/2023 11/01/2024 1 1 Reason Comments Tinnitus Reason Comments New Patient PATIENT HAS LUPUS/FI BROMALAGIA AND DX IN OCTOBER 2022 Cough DENIES Wheezing DENIES Shortness of Breath DENIES Specialty Diagnoses / Procedures Referred By Contac t Referred To Contact Pulmonary Medicine Diagnoses Personal history of PE (pulmonary embolism) Billy Zelaya PA-C [address] [place] [address] [facility] Sleep Med [address] [facility] [place] [address] Referral ID Status Reason Start Date Expiration Date Visits Requested Visits Authorized [id number] Pending Review Specialty Services Required 06/12/2023 06/11/2024 1 1 Reason Onset Date Comments Medical Clearence 08/03/2023 Reason Onset Date Comments LUMBAR PUNCTURE 02/01/2024 Reason Onset Date Comments Medical Update 01/28/2024 Specialty Diagnoses / Procedures Referred By Noris lassiter Referred To Contact Diagnoses Lupus (systemic lupus erythematosus) ([facility]) Lupus Diogo Bray MD [address] [place] [address], [address] [place] [address] Referral ID Status Reason Start Date Expiration Date Visits Re quested Visits Authorized [id number] 1 1 Reason Onset Date Comments Results 02/11/2024 Reason Comments Migraine Patient is here toda y for follow up on DX Migraine without aura and without status migrainosus, not intractable Reason Comments MNT - Individual F/U; desired wt loss and lupus Reason Comments Pre-op Exam PRE OP D&C DR ALBRIGHT FAX [phone] NO TESTS Scheduled Active and Recently Administ ered Medications (unrecognized section and content) Medication Order 02/03/2024 02/04/2024 02/05/2024 acetaminophen (OFIRMEV) IVPB Premix 1,000 mg (COMPLETED) 1,000 mg, intravenous, at 400 mL/hr, Administer over 15 Minutes, Once, On Sun02/05/24 at 1145, For 1 dose 1133 (New Bag - Provider: Tanisha Napoles RN)1148 (Stop Bag - Provider: Tanisha Napoles RN) acetaminophen (TYLENOL) tablet 650 mg (COMPLETED) 650 [...] 1122 (Given - Provider: Tanisha Napoles, CAITLYN) amitriptyline (ELAVIL) tablet 50 mg 50 mg, oral, Nightly, First dose on Aleida 01/31/24 at 2200 2120 (Given - Provider: Cynthia Muñoz RN) 2149 (Given - Provider: Cynthia Muñoz RN) bumetanide (BUMEX) tablet 2 mg 2 mg, oral, 2 times daily, First dose on Aleida 01/31/24 at 2100 0844 (Given - Provider: Cira Pérez RN)2120 (Given - Provider: Cynthia Muñoz RN) 0859 (Given - Provider: Tiffany Salter RN)2149 (Given - Provider: Cynthia Muñoz RN) 112 (Given - Provider: Tanisha Napoles, CAITLYN) carvediloL (COREG) tablet 6.25 mg 6.25 mg, oral, 2 times daily, First dose on Aleida 01/31/24 at 2100, Give with meal or snack. Look-alike/sound-alike medication - verify indication for use. 0844 (Given - Provider: Cira Pérez RN)2120 (Given - Provider: Cynthia Muñoz RN) 0859 (Given - Provider: Tiffany Salter RN)2149 (Given - Provider: Cynthia Muñoz RN) 112 (Given - Provider: Tanisha Napoles, CAITLYN) clindamycin (CLEOCIN) capsule 300 mg (CANCELED) 300 mg, oral, Every 8 hours scheduled, First dose on Sun02/03/24 at 0600, Give with a full glass of water., Indication: Other, Specify: OTITIS MEDIA 0508 (Given - Provider: Aydee Casanova, CAITLYN)1427 (Given - Provider: Cira Pérez RN)2120 (Given - Provider: Cynthia Muñoz RN) 0501 (Given - Provider: Cynthia Muñoz RN) clindamycin (CLEOCIN) capsule 300 mg (COMPLETED) 300 mg, oral, Every 8 hours scheduled, First dose (after last modification) on 02/04/24 at 1400, For 2 doses, Give with a full glass of water., Indication: Other, Specify: OTITIS MEDIA 1356 (Given - Provider: Tiffany aSlter RN)2150 (Given - Provider: Cynthia Muñoz RN) cyanocobalamin tablet 1,000 mcg 1,000 mcg, oral, Daily, First dose on Sun02/01/24 at 0900 0844 (Given - Provider: Cira Pérez RN) 0859 (Given - Provider: Tiffany Salter RN) 1122 (Given - Provider: Tanisha Napoles RN) dicyclomine (BENTYL) capsule 10 mg 10 mg, oral, 4 times daily, First dose on Aleida 01/31/24 at 1730 0844 (Given - Provider: Cira Pérez RN)1427 (Given - Provider: Cira Pérez RN)1806 (Given - Provider: Cira Pérez RN)2121 (Given - Provider: Cynthia Muñoz RN) 0859 (Given - Provider: Tiffany Salter RN)1356 (Given - Provider: Tiffany Salter RN)1716 (Given - Provider: Tiffany Salter RN)2150 (Given - Provider: Cynthia Muñoz RN) 1122 (Given - Provider: Tanisha Napoles, RN)1300 (Not Given - Provider: Tanisha Napoles RN - Reason: Patient not available)1632 (Given [...] Salter RN) 1122 (Given - Provider: Tanisha Napoles RN) ketorolac (TORADOL) injection 15 mg (COMPLETED) [...] today) 1121 (Medication Applied - Provider: Tanisha Napoles RN) LORazepam (ATIVAN) injection 1 mg (COMPLETED) 1 [...] 2100 0844 (Given - Provider: Cira Pérez RN)2121 (Given - Provider: Cynthia Muñoz, CAITLYN) 0858 (Given - Provider: Tiffany Salter RN)2150 (Given - Provider: Cynthia Muñoz, CAITLYN) 1122 (Given - Provider: Tanisha Napoles, CAITLYN) mycophenolate (CELLCEPT) tablet 1,500 mg 1,500 mg, oral, 2 times daily, First dose on Sun01/31/24 at 2100, Do not crush or chew. Pediatric patients only-adminster on empty stomach at least 1 hour before or 2 hours after meals. 0844 (Given - Provider: Cira Pérez RN)2120 (Given - Provider: Cynthia Muñoz RN) 0858 (Given - Provider: Tiffany Salter RN)2150 (Given - Provider: Cynthia Muñoz RN) 112 (Given - Provider: Tanisha Napoles, RN) potassium chloride (K-TAB,KLOR-CON) CR tablet 20 mEq 20 mEq, oral, 2 times daily, First dose on Sun01/31/24 at 2100, Do not crush or chew. 0844 (Given - Provider: Cira Pérez RN)2120 (Given - Provider: Cynthia Muñoz RN) 08 (Given - Provider: Tiffany Salter RN)2149 (Given [...] 0843 (Given - Provider: Cira Pérez RN) 08 (Given - Provider: Tiffany Salter RN) 112 (Given - Provider: Tanisha Napoles, RN) sodium chloride 0.9 % flush 3 mL 3 mL, intravenous, Every 12 hours scheduled, First dose on Sun01/31/24 at 2100 0845 (Given - Provider: Cira Pérez RN)2122 (Given - Provider: Cynthia Muñoz RN) 0859 (Given - Provider: Tiffany Salter RN)2149 (Given - Provider: Cynthia Muñoz, RN) 112 (Given - Provider: Tanisha Napoles, RN) voclosporin capsule 23.7 mg 23.7 mg, oral, 2 times daily, First dose on Sun01/31/24 at 2100, Take on empty stomach 0508 (Given - Provider: Aydee Casanova RN)1806 (Given - Provider: Cira Pérez RN) 0502 (Given - Provider: Cynthia Muñoz RN)1717 (Given - Provider: Tiffany Salter, RN) 0631 (Given - Provider: Cynthia Muñoz, CAITLYN) Continuous Medication Order 02/03/2024 02/04/2024 02/05/2024 heparin infusion 35245 units/500 mL in 0.45% NaCl (50 units/mL [...] Pérez RN) 0709 (Handoff - Provider: Cynthia Muñoz, RN)1300 (Stop Bag - Provider: Tiffany Salter RN)1359 (Stop Bag - Provider: Tanisha Napoles, CAITLYN) heparin infusion 12155 units/500 mL in 0.45% NaCl (50 units/mL [...] units/hr 1230 (Canceled Entry - Provider: Tiffany Salter RN)1359 (New Bag - Provider: Tiffany Salter RN) 0200 (Stop Bag - Provider: Cynthia [...] Look-alike/sound-alike medication - verify indication for use. 0551 (Given - Provider: Aydee Casanova RN) 5802 (Given - Provider: Cynthia Muñoz RN) gadoteridoL [...] 0837 0548 (New Bag - Provider: Aydee Casanova, CAITLYN)0648 (Stop Bag - Provider: Cira Pérez, CAITLYN) 0445 (New Bag - Provider: Cynthia Muñoz, CAITLYN)0545 (Stop Bag - Provider: Tiffany Salter RN) [...] in imaging, line care, MRI, Starting on [place] 02/03/24 at 1215, For 1 dose 1241 [...] BE BASED ON THE PRIMARY CLINICAL RECORDS. [employer] [facility]. provides no warranty or guarantee of the accuracy or completeness of information in this document.
[2024-07-11 07:44] LABS: Basophils Percent Auto 0.3 % (0.2-2.0); Eosinophils Absolute Auto 0.1 10^3/uL (0.0-0.7); Eosinophils Percent Auto 0.9 % (0.9-7.0); Hematocrit 35.9 % (36.0-48.0); Hemoglobin 12.2 g/dL (12.0-16.0); Immature Granulocytes Abs Auto 0.02 10^3/uL (0.00-0.03); Immature Granulocytes Pct Auto 0.3 % (0.0-0.5); Lymphocytes Absolute Auto 1.2 10^3/uL (1.2-3.8); Lymphocytes Percent Auto 20.6 % (20.5-60.0); Mean Corpuscular Hemoglobin 31.2 pg (26.7-34.0); Mean Corpuscular Volume 91.8 fL (81.0-99.0); Mean Platelet Volume 9.1 fL (9.5-13.5); Monocytes Absolute Auto 0.7 10^3/uL (0.3-0.8); Monocytes Percent Auto 11.4 % (1.7-12.0); Neutrophils Absolute Auto 3.9 10^3/uL (1.4-6.5); Neutrophils Percent Auto 66.5 % (43.0-75.0); Platelet Count 292 10^3/uL (150-450); Red Blood Count 3.91 10^6/uL (4.20-5.40); Red Cell Distribution Width 12.5 % (11.0-15.0); White Blood Count 5.9 10^3/uL (4.0-11.0)
[2024-07-11 08:09] LABS: HCG Quantitative <1 mIU/mL
[2024-07-11] MEDS: LACTATED RINGER'S SOLUTION 1,000 ML 50 ML IV ×2 (08:32→11:52)
--- NOTE | 2024-07-11 11:45 | P.ON_ITS ---
Brief Operative Note Date of procedure: 07/11/24 Pre-op diagnosis general: pelvic pain, aub Post-op diagnosis: same as pre-op Procedure: NAME OF PROCEDURE: [ D&c hysteroscopy, dx laparoscopy, removal of iud] PROCEDURE: The patient was taken back to the Operating Room where she was prepped and draped in normal sterile fashion after being placed under general anesthesia without difficulty. She was also placed in the dorsal lithotomy position. A weighted speculum was placed in the patient?s vagina. The anterior lip of the cervix was identified and grasped with a single tooth tenaculum. The patient?s uterus was then sounded roughly to [? 8] cm. The patient was then gently dilated using Hegar dilators. The hysteroscope was passed through the patient?s cervix into the uterus. Both ostia were identified. fluffy appearing endometrium. No gross evidence of malignancy, no gross evidence of polyps or fibroids. The myosure apparatus was placed through the scope, The myosure was engaged and endometrial curretting were removed along with endometrial polyp, The hysteroscope was then removed from the uterus. The endometrial curettings were sent out to pathology. The single tooth tenaculum was then removed from the patient's anterior lip of the cervix where excellent hemostasis was noted. All instruments were removed from the patient?s vagina. please note prior to hysteroscopy the iud strings were identified and removed with ring forceps. A sponge stick was placed into the patient's vagina. Attention was turned to the patient's abdomen, where a small umbilical incision was made. The fascia was tented using Darron clamps and the fascia was entered sharply. Confirmation of intraabdominal placement of the 10 mm port was confirmed under direct visualization using a laparoscope. The patient's abdomen was then insufflated using CO2 gas with approximately 4 liters. A second port was placed left laterally, this was done under direct visualization with a 5 mm port. Survey of the patient's abdomen demonstrated normal liver and gallbladder. Survey of the patient's pelvic anatomy demonstrated normal appearing rt and lt ovary and absent tubes as well as normal appearing uterus. No endometrial implants could be noted, no evidence of any pelvic disease was seen, normal appearing pelvic cavity. All instruments were removed from the patient's abdomen. The patient's abdomen was deinsufflated of CO2 gas. The patient tolerated the procedure well. Sponge stick was removed from the patient's vagina. The patient's infraumbilical fascia was closed using #0 Vicryl on a GI needle. The patient's skin was closed laterally and infraumbilically using 4-0 Vicryl. The patient tolerated the procedure well. Sponge, lap and needle counts were correct x 2. The patient was taken to Recovery Room in stable condition. Anesthesia: SARAH Surgeon: Mayco Albright Club Room Attendant: Kristina Viera Estimated blood loss (mL): 5 Pathology: none sent Condition: stable Disposition: PACU Urinary Catheter Management Urinary Catheter Management Urethral: Cath placed during this visit: no
[2024-07-11] MEDS: HYDROCODONE/ACET 5-325 MG TABLET 1 TAB PO (13:30)
--- NOTE | 2024-07-11 13:33 | PC.NURSE ---
Medicated with oral pain medication as ordered; denies urge to void; peripad dry
--- NOTE | 2024-07-11 14:02 | PC.NURSE ---
c/o left eye discomfort as though eyelash in eye ; eye red; eye flushed with saline and cool compress applied; states that eye feels better
--- NOTE | 2024-07-11 14:13 | PC.NURSE ---
Up to bathroom and voids without difficulty pink tinged urine
--- NOTE | 2024-07-11 14:46 | PC.NURSE ---
C/o left eye discomfort again and eye flushed with saline. Saúl Salter from anesthesia notified and no orders received.
[2024-07-15 08:13] LABS: HSV-1 DNA Negative (Negative); HSV-2 DNA Positive (Negative)
== END 2024-07-11 14:45 | disposition home or self-care (01) ==
PROVIDERS: Visit Provider Obstetrics & Gynecology
PROC: (CPT 840; principal; 2024-07-11 09:20)
DX: R10.2 Pelvic and perineal pain (principal); N93.9 Abnormal uterine and vaginal bleeding, unspecified; N84.0 Polyp of corpus uteri; Z30.432 Encounter for removal of intrauterine contraceptive device; Z98.51 Tubal ligation status; I10 Essential (primary) hypertension; K21.9 Gastro-esophageal reflux disease without esophagitis; M79.7 Fibromyalgia
CPT/HCPCS: 49320; 58301; 58558; 36415; 84702; 85025; 88305; 99999; J0131; J1100; J2250; J2704; J3010